=== PATIENT | female | born 1950 | race African-American/Black ===

== ENCOUNTER 2016-07-28 07:00 | Day surgery (SDC) | payer MEDICARE, BC ==
[2016-07-26 11:52] VITALS: BMI 38.0
[~2016-07-28 07:00] MED LIST: LACTATED RINGERS 1,000 ML IV SCH
[2016-07-28 07:28] VITALS: RESP 16; TEMP 98
[2016-07-28] MEDS ORDERED: SODIUM CHLORIDE 0.9% 500 ML IV ONE (07:30)
[2016-07-28] MEDS ORDERED: PROPOFOL 10 MG/ML 20 ML VIAL IV ONE (07:43)
[2016-07-28 07:58] LABS: Glucose,Whole Blood 53 mg/dL (75-99)
--- NOTE | 2016-07-28 08:02 | P.PCN ---
Date of Procedure: 07/28/16 Procedure(s) Performed: BRIEF HISTORY: Patient is a 65-year-old pleasant female, scheduled for an elective colonoscopy as a part of evaluation of prior history of colon polyps. Last colonoscopy was in 2010. PROCEDURE PERFORMED: Colonoscopy. PREOPERATIVE DIAGNOSIS: History of colon polyps. IV sedation per Anesthesia. PROCEDURE: After informed consent was obtained, the patient, was brought into the endoscopy unit. IV conscious sedation was administered by Anesthesia under continuous monitoring. Digital rectal examination was normal. Initially the Olympus CF-160 flexible video colonoscope was then inserted in the rectum, gradually advanced into the cecum without any difficulty. Careful examination was performed as the scope was gradually being withdrawn. Ileocecal valve and the appendiceal orifice were visualized and appeared normal. Prep was excellent. Mucosa of the cecum, ascending colon, transverse colon, descending colon, sigmoid colon, and rectum appeared normal. Scattered sigmoid diverticulosis seen. Retroflexion was performed in the rectum and no lesions were seen. The patient tolerated the procedure well. IMPRESSION: Normal-appearing colon from rectum to cecum with no evidence of colorectal neoplasia . Scattered sigmoid diverticulosis. RECOMMENDATIONS: Findings of this examination were discussed with the patient as well as her family. She was advised to have a repeat screening colonoscopy in 5 years because of the prior history of colon polyps.
[2016-07-28 08:05] VITALS: BP 123/57; PULSE 69
[2016-07-28 08:11] LABS: Glucose,Whole Blood 91 mg/dL (75-99)
== END 2016-07-28 09:22 | disposition home or self-care (01) ==
LOC: ORWHC2ENDO 07:00
PROVIDERS: ATTEND Internal Medicine Gastroenterology
DX: Z12.11 Encounter for screening for malignant neoplasm of colon (principal); K57.30 Diverticulosis of large intestine without perforation or abscess without bleeding; E11.9 Type 2 diabetes mellitus without complications; I10 Essential (primary) hypertension; Z86.010 Personal history of colon polyps; Z88.5 Allergy status to narcotic agent; Z88.8 Allergy status to other drugs, medicaments and biological substances; Z79.82 Long term (current) use of aspirin; Z79.84 Long term (current) use of oral hypoglycemic drugs; Z79.4 Long term (current) use of insulin; Z79.899 Other long term (current) drug therapy; Z94.0 Kidney transplant status
CPT/HCPCS: J2704; G0105; 45378; 99153

== ENCOUNTER 2016-08-11 17:08 | Inpatient (IN) | payer MEDICARE, BC ==
[2016-08-11] MEDS ORDERED: IPRATROPIUM-ALBUTEROL 3 ML NEB INHALATION STA (17:56)
[2016-08-11] MEDS ORDERED: PIPERACILLIN-TAZOBACTAM 3.375 GM in DEXTROSE/WATER 1 50ML.BAG IVPB STA (18:17)
--- NOTE | 2016-08-11 18:17 | ED ---
General Adult HPI - General Chief complaint: Recheck/Abnormal Lab/Rx Stated complaint: Abnormal EKG Time Seen by Provider: 08/11/16 17:20 Source: patient, RN notes reviewed Mode of arrival: ambulatory Limitations: no limitations - History of Present Illness Initial comments: This is a 65-year-old female who comes From her primary medical care doctor's office. Patient went to the office today because she's been coughing a lot lately. Patient states she's been coughing up sputum occasionally and she is mildly short of breath per patient states she does have a history of asthma. Patient denies any chest pain or palpitations. Patient denies any fever or chills. Patient states she has been a little bit nauseated lately but has no abdominal pain. Patient states anytime she eats she becomes nauseated. Patient states she went to the physician's office today they did an EKG and thought it was abnormal so they sent her into the emergency department. Patient denies headache patient denies numbness weakness. Patient denies any lightheadedness dizziness or near syncopal episode. - Related Data Home Medications Medication Instructions Recorded Confirmed INSULIN LISPRO (HumaLOG) [humaLOG] 12 units SQ AC-LUNCH 01/02/16 08/11/16 INSULIN LISPRO (HumaLOG) [humaLOG] 12 units SQ AC-SUPPER 01/02/16 08/11/16 Insulin Glargine,Hum.rec.anlog 22 unit SQ 01/02/16 08/11/16 [Lantus Solostar] Tacrolimus [Prograf] 3 mg PO QAM 07/26/16 08/11/16 Tacrolimus [Prograf] 4 mg PO HS 07/26/16 08/11/16 Acetaminophen-Codeine 300-30mg 1 tab PO Q6H PRN 08/11/16 08/11/16 [Tylenol #3] Albuterol Inhaler [Ventolin Hfa 2 puff INHALATION RT-QID PRN 08/11/16 08/11/16 Inhaler] Albuterol Nebulized [Ventolin 2.5 mg INHALATION RT-QID PRN 08/11/16 08/11/16 Nebulized] Allopurinol [Zyloprim] 100 mg PO DAILY 08/11/16 08/11/16 Ammonium Lactate Cream [Lac-Hydrin 1 applic TOPICAL BID 08/11/16 08/11/16 12% Cream] Aspirin 81 mg PO DAILY 08/11/16 08/11/16 Atorvastatin Calcium [Lipitor] 10 mg PO HS 08/11/16 08/11/16 Carvedilol [Coreg] 12.5 mg PO BID 08/11/16 08/11/16 INSULIN LISPRO (humaLOG) [HumaLOG] 9 units SQ AC-BRKFST 08/11/16 08/11/16 Lansoprazole [Prevacid] 30 mg PO BID 08/11/16 08/11/[address] [Myfortic] 360 mg PO BID 08/11/16 08/11/16 Sodium Bicarbonate Tab 1,950 mg PO QID 08/11/16 08/11/16 Spironolactone [Aldactone] 25 mg PO DAILY 08/11/16 08/11/16 amLODIPine [Norvasc] 10 mg PO DAILY 08/11/16 08/11/16 predniSONE 1 mg PO DAILY 08/11/16 08/11/16 Allergies Allergy/AdvReac Type Severity Reaction Status Date / Time hydralazine [From Apresoline] Allergy Rash/Hives Verified 08/11/16 18:20 meperidine [From Demerol] Allergy Anaphylaxis Verified 08/11/16 18:20 Review of Systems ROS Statement: Those systems with pertinent positive or pertinent negative responses have been documented in the HPI. ROS Other: All systems not noted in ROS Statement are negative. Past Medical History Past Medical History: Asthma, Diabetes Mellitus, Dialysis, Eye Disorder, Hyperlipidemia, Hypertension, Renal Disease, Skin Disorder Additional Past Medical History / Comment(s): daily steroid,split in skin lt heel History of Any Multi-Drug Resistant Organisms: ESBL Date of last positivie culture/infection: 2011 MDRO Source:: peritoneal dialysis cath Additional Past Surgical History / Comment(s): Renal transplant Jul 2015, hemodialysis shunt lt forearm,peritoneal dialysis insertion and removal Past Anesthesia/Blood Transfusion Reactions: No Reported Reaction Additional Past Anesthesia/Blood Transfusion Reaction / Comment(s): has had a hard time coming out of anesthesia Past Psychological History: No Psychological Hx Reported Smoking Status: Former smoker Past Alcohol Use History: None Reported Additional Past Alcohol Use History / Comment(s): quit smoking , smoked approx 4-5 yrs Past Drug Use History: None Reported - Past Family History Mother History Unknown: Yes Father Additional Family Medical History / Comment(s): brain aneurysm General Exam - General Exam Comments Initial Comments: GENERAL: Patient is well-developed and well-nourished. Patient is nontoxic and well- hydrated and is in mild distress. ENT: Neck is soft and supple. No significant lymphadenopathy is noted. Oropharynx is clear. Moist mucous membranes. Neck has full range of motion without eliciting any pain. EYES: The sclera were anicteric and conjunctiva were pink and moist. Extraocular movements were intact and pupils were equal round and reactive to light. Eyelids were unremarkable. PULMONARY: Unlabored respirations. Good breath sounds bilaterally. Slight expiratory wheeze CARDIOVASCULAR: There is a regular rate and rhythm without any murmurs gallops or rubs. ABDOMEN: Soft and nontender with normal bowel sounds. No palpable organomegaly was noted. There is no palpable pulsatile mass. SKIN: Skin is clear with no lesions or rashes and otherwise unremarkable. NEUROLOGIC: Patient is alert and oriented x3. Cranial nerves II through XII are grossly intact. Motor and sensory are also intact. Normal speech, volume and content. Symmetrical smile. MUSCULOSKELETAL: Normal extremities with adequate strength and full range of motion. No lower extremity swelling or edema. No calf tenderness. LYMPHATICS: No significant lymphadenopathy is noted PSYCHIATRIC: Normal psychiatric evaluation. Limitations: no limitations Course Vital Signs 08/11/16 08/11/16 08/11/16 17:17 18:30 18:37 Temperature 98.0 F Pulse Rate 80 81 79 Respiratory 16 Rate Blood Pressure 185/81 O2 Sat by Pulse 100 Oximetry 08/11/16 19:46 Temperature Pulse Rate 80 Respiratory 18 Rate Blood Pressure 174/80 O2 Sat by Pulse 100 Oximetry Medical Decision Making - Medical Decision Making EKG shows normal sinus rhythm at 86 bpm PA interval 176 QRS is 92 QT interval 378 QTC is 452. Patient's EKG shows some Q waves in leads 3 and aVF which I seen an old EKG. Patient's EKG also shows some Q waves in V1 and V2 with some ST segment elevation. The concavity of the of the ST segment elevation. The J- point elevation Patient's chest x-ray is normal. But she continues to cough so started the patient on oral Levaquin. Patient's blood sugar was nearly 600 so started patient on the insulin drip. Admit the patient to Dr. Cabrera - Lab Data Result diagrams: 08/11/16 07:19 08/11/16 07:19 Lab Results 08/11/16 08/11/16 08/11/16 Range/Units 07:19 07:19 07:19 WBC 10.8 H (3.8-10.6) k/uL RBC 4.74 (3.80-5.40) m/uL Hgb 13.3 (11.4-16.0) gm/dL Hct 43.7 (34.0-46.0) % MCV 92.2 (80.0-100.0) fL MCH 28.0 (25.0-35.0) pg MCHC 30.4 L (31.0-37.0) g/dL RDW 13.0 (11.5-15.5) % Plt Count 221 (150-450) k/uL Neutrophils % MANAGER [employer] Neutrophils % (Manual) 90.0 % Lymphocytes % MANAGER [employer] Lymphocytes % (Manual) 8.0 % Monocytes % MANAGER [employer] Monocytes % (Manual) 2.0 % Eosinophils % MANAGER [employer] Basophils % MANAGER [employer]IL[employer] Neutrophils # MANAGER [employer] Neutrophils # (Manual) 9.7 H (1.3-7.7) k/uL Lymphocytes # MANAGER [employer] Lymphocytes # (Manual) 0.9 L (1.0-4.8) k/uL Monocytes # MANAGER [employer]IL[employer] Monocytes # (Manual) 0.2 (0-1.0) k/uL Eosinophils # MANAGER UTILIT[employer] Basophils # MANAGER [employer] Nucleated RBCs 0 (0-0) /100 WBC Manual Slide Review Performed Hypochromasia Moderate PT (9.0-12.0) sec INR (<1.1) APTT (22.0-30.0) sec Sodium 132 L (137-145) mmol/L Potassium 5.8 H (3.5-5.1) mmol/L Chloride 98 (98-107) mmol/L Carbon Dioxide 18 L (22-30) mmol/L Anion Gap 16 mmol/L BUN 38 H (7-17) mg/dL Creatinine 1.47 H (0.52-1.04) mg/dL Est GFR (MDRD) Af Amer 43 (>60 ml/min/1.73 sqM) Est GFR (MDRD) Non-Af 36 (>60 ml/min/1.73 sqM) Glucose 572 H* (74-99) mg/dL POC Glucose (mg/dL) (75-99) mg/dL POC Glu Salon Leader ID Calcium 10.8 H (8.4-10.2) mg/dL Magnesium 1.6 (1.6-2.3) mg/dL Total Bilirubin 0.8 (0.2-1.3) mg/dL AST 20 (14-36) U/L ALT 30 (9-52) U/L Alkaline Phosphatase 146 H (38-126) U/L Total Creatine Kinase 126 (30-135) U/L CK-MB (CK-2) 0.9 (0.0-2.4) ng/mL CK-MB (CK-2) Rel Index 0.7 Troponin I <0.012 (0.000-0.034) ng/mL Total Protein 7.0 (6.3-8.2) g/dL Albumin 4.2 (3.5-5.0) g/dL Acetone, Qual (Negative) 08/11/16 08/11/16 08/11/16 Range/Units 19:19 20:25 20:47 WBC (3.8-10.6) k/uL RBC (3.80-5.40) m/uL Hgb (11.4-16.0) gm/dL Hct (34.0-46.0) % MCV (80.0-100.0) fL MCH (25.0-35.0) pg MCHC (31.0-37.0) g/dL RDW (11.5-15.5) % Plt Count (150-450) k/uL Neutrophils % Neutrophils % (Manual) % Lymphocytes % Lymphocytes % (Manual) % Monocytes % Monocytes % (Manual) % Eosinophils % Basophils % Neutrophils # Neutrophils # (Manual) (1.3-7.7) k/uL Lymphocytes # Lymphocytes # (Manual) (1.0-4.8) k/uL Monocytes # Monocytes # (Manual) (0-1.0) k/uL Eosinophils # Basophils # Nucleated RBCs (0-0) /100 WBC Manual Slide Review Hypochromasia PT 10.8 (9.0-12.0) sec INR 1.1 (<1.1) APTT 23.4 (22.0-30.0) sec Sodium (137-145) mmol/L Potassium (3.5-5.1) mmol/L Chloride (98-107) mmol/L Carbon Dioxide (22-30) mmol/L Anion Gap mmol/L BUN (7-17) mg/dL Creatinine (0.52-1.04) mg/dL Est GFR (MDRD) Af Amer (>60 ml/min/1.73 sqM) Est GFR (MDRD) Non-Af (>60 ml/min/1.73 sqM) Glucose (74-99) mg/dL POC Glucose (mg/dL) 455 H (75-99) mg/dL POC Glu Salon Leader ID Skylar Hayward Calcium (8.4-10.2) mg/dL Magnesium (1.6-2.3) mg/dL Total Bilirubin (0.2-1.3) mg/dL AST (14-36) U/L ALT (9-52) U/L Alkaline Phosphatase (38-126) U/L Total Creatine Kinase (30-135) U/L CK-MB (CK-2) (0.0-2.4) ng/mL CK-MB (CK-2) Rel Index Troponin I (0.000-0.034) ng/mL Total Protein (6.3-8.2) g/dL Albumin (3.5-5.0) g/dL Acetone, Qual Negative (Negative) Disposition Clinical Impression: Acute bronchitis, Hyperglycemia Disposition: ADMITTED IP TO THIS HOSP Referrals: Raza Purcell MD [Primary Care Provider] - 1-2 days Time of Disposition: 21:07
[2016-08-11 19:40] LABS: CH 28.2; CHCM 30.8; HCT 43.7 % (34.0-46.0); HDW 2.47; HGB 13.3 gm/dL (11.4-16.0); Hypochromasia Moderate; MCHC 30.4 g/dL (31.0-37.0); MCV 92.2 fL (80.0-100.0); Mean Platelet Volume 9.7; RBC 4.74 m/uL (3.80-5.40); WBC 10.8 k/uL (3.8-10.6); WBC (Perox) 11.09
[2016-08-11 19:43] LABS: Creatine Kinase 126 U/L (30-135)
[2016-08-11 19:45] LABS: Calcium 10.8 mg/dL (8.4-10.2); Magnesium 1.6 mg/dL (1.6-2.3); Potassium 5.8 mmol/L (3.5-5.1); Total Bilirubin 0.8 mg/dL (0.2-1.3)
[2016-08-11 19:55] LABS: Creatine Kinase MB 0.9 ng/mL (0.0-2.4); Troponin I <0.012 ng/mL (0.000-0.034)
--- NOTE | 2016-08-11 20:18 | XR ---
EXAMINATION TYPE: XR chest 2V DATE OF EXAM: 08/11/2016 8:05 PM COMPARISON: 10/17/2014 HISTORY: Difficulty breathing TECHNIQUE: Frontal and lateral views of the chest are obtained. FINDINGS: There is no heart failure nor confluent pneumonic infiltrate. There are no hilar masses. C ostophrenic angles are clear. There is a small linear density in the lingula consistent with focal at electasis. There is no pleural effusion. There are chest leads. Bony thorax appears intact. IMPRESSION: Mild scarring or atelectasis in the lingula of the left upper lobe without change compar ed to old exam. Normal heart.
[2016-08-11 20:20] LABS: Add Differential Manual Differential
[2016-08-11 20:23] LABS: Nucleated Red Blood Cells 0 /100 WBC (0-0); Total Cells Counted 100
[2016-08-11 20:24] LABS: Manual Review Performed
[2016-08-11] MEDS ORDERED: INSULIN REGULAR 100 UNIT/ML VIAL IV ONE (20:39)
[2016-08-11] MEDS ORDERED: INSULIN REGULAR 100 UNIT in SODIUM CHLORIDE 0.9% 100 ML IV ONE (20:39)
[2016-08-11 20:49] LABS: INR 1.1 (<1.1); Partial Thromboplastin Time 23.4 sec (22.0-30.0); Prothrombin Time 10.8 sec (9.0-12.0)
[2016-08-11 20:49] LABS: Glucose,Whole Blood 455 mg/dL (75-99)
[2016-08-11] MEDS ORDERED: LEVOFLOXACIN 750 MG TAB PO STA (21:24)
[2016-08-11] MEDS ORDERED: SODIUM CHLORIDE 0.9% 1,000 ML IV SCH (21:45)
[2016-08-11] MEDS: INSULIN REGULAR 100 UNIT in SODIUM CHLORIDE 0.9% 100 ML IV SCH (22:30)
[2016-08-11 23:01] VITALS: PULSE 86
[2016-08-11 23:01] LABS: Glucose,Whole Blood 376 mg/dL (75-99)
[2016-08-11] MEDS ORDERED: Acetaminophen-Codeine 300-30mg TAB PO PRN (23:23)
[2016-08-11] MEDS ORDERED: ONDANSETRON 4 MG TAB PO PRN (23:29)
[2016-08-11 23:30] LABS: Glucose,Whole Blood 257 mg/dL (75-99)
[2016-08-11 23:38] VITALS: BMI 35.2
[2016-08-11 23:53] LABS: Phosphorous 3.4 mg/dL (2.5-4.5)
[2016-08-12 00:05] LABS: Glucose,Whole Blood 171 mg/dL (75-99)
[2016-08-12] MEDS: CARVEDILOL 12.5 MG TAB PO SCH ×2 (00:08→08:23)
[2016-08-12] MEDS: PANTOPRAZOLE 40 MG TABLET PO SCH ×2 (00:08→08:23)
[2016-08-12] MEDS: MYCOPHENOLATE SODIUM DR 180 MG TABLET.DR PO SCH ×2 (00:08→08:24)
[2016-08-12 01:45] LABS: Glucose,Whole Blood 62 mg/dL (75-99)
[2016-08-12] MEDS ORDERED: DEXTROSE 5% IN WATER 1,000 ML IV ONE (01:56)
[2016-08-12 02:06] LABS: Glucose,Whole Blood 73 mg/dL (75-99)
[2016-08-12] MEDS ORDERED: ONDANSETRON 4 MG/2 ML VIAL ONE (02:55)
[2016-08-12 03:25] LABS: Glucose,Whole Blood 144 mg/dL (75-99)
[2016-08-12 04:11] LABS: Phosphorous 3.6 mg/dL (2.5-4.5); Potassium 4.5 mmol/L (3.5-5.1)
[2016-08-12 05:30] LABS: Glucose,Whole Blood 218 mg/dL (75-99)
[2016-08-12 07:10] LABS: Glucose,Whole Blood 131 mg/dL (75-99)
[2016-08-12 07:49] VITALS: BP 135/63; RESP 16; TEMP 98.1
[2016-08-12 07:58] LABS: Hemoglobin A1C 7.8 % (4.2-6.1)
[2016-08-12 08:24] LABS: Glucose,Whole Blood 237 mg/dL (75-99)
[2016-08-12] MEDS ORDERED: AMMONIUM LACTATE 12% CREAM 140 GM TUBE TOPICAL SCH (09:00)
[2016-08-12] MEDS ORDERED: ALLOPURINOL 100 MG TAB PO SCH (09:00)
[2016-08-12] MEDS ORDERED: TACROLIMUS 1 MG CAP PO SCH ×2 (09:00)
[2016-08-12] MEDS ORDERED: amLODIPine 10 MG TAB PO SCH (09:00)
[2016-08-12] MEDS ORDERED: predniSONE 1 MG TAB PO SCH (09:00)
[2016-08-12 10:23] LABS: Glucose,Whole Blood 85 mg/dL (75-99)
[2016-08-12] MEDS: INSULIN REGULAR 100 UNIT in SODIUM CHLORIDE 0.9% 100 ML IV SCH (10:33)
--- NOTE | 2016-08-12 11:56 | HP ---
HISTORY AND PHYSICAL/DISCHARGE SUMMARY A 65-year-old female came in with cough, with a greenish sputum production. Patient does have bronchitis. Patient does not have any pneumonic process in the chest x-ray. Reviewed the chest x-ray. Patient appears to have some atelectasis and patient denied any fever, chills. Patient denied any nausea or vomiting. Patient does not have any fevers here either. Patient denied any dysuria. Patient was started on treatment with Zosyn and levofloxacin. I do not believe it is necessary at this point of time. Levofloxacin will be discontinued. Patient will be discharged on ( ). Patient's blood sugars are high without any diabetic ketoacidosis. There is a bit of anion gap because of little bit of uremia. Patient has a kidney renal transplant. Patient's creatinine is around at her baseline. Because of the anion gap, I will obtain a lactic acid and once we get the lactic acid results, patient will be discharged. Her hemoglobin A1c is elevated. I cannot titrate her outpatient insulin because patient remained on IV insulin, because of highly elevated blood sugars of 500 which has come down now. Since hemoglobin A1c is elevated, I will empirically increase the Lantus to 30 units and let her follow with primary care physician, Dr. Raza Purcell and further management can be done as an outpatient. Patient will be discharged today. Patient denied any fever, chills and patient wanted to be discharged. Patient denied any nausea, vomiting. Patient denied any diarrhea. REVIEW OF SYSTEMS: CONSTITUTIONAL: No fever, no malaise, no fatigue. HEENT: No recent visual problems or hearing problems. Denied any sore throat. CARDIOVASCULAR: No chest pain, orthopnea, PND, no palpitations, no syncope. PULMONARY: As described in HPI. Patient denied any orthopnea, PND. GASTROINTESTINAL: No diarrhea, no nausea, no vomiting, no abdominal pain. Normoactive bowel sounds. NEUROLOGICAL: No headaches, no weakness, no numbness. HEMATOLOGICAL: Denies any bleeding or petechiae. GENITOURINARY: Denies any burning micturition, frequency, or urgency. MUSCULOSKELETAL/RHEUMATOLOGICAL: Denies any joint pain, swelling, or any muscle pain. ENDOCRINE: Denies any polyuria or polydipsia. The rest of the 14 point review of systems is negative. Home medications include: 1. Insulin. 2. Lispro. 3. Tacrolimus. 4. Acetaminophen. 5. Hydrocodone. 6. Albuterol. 7. Allopurinol. 8. Ammonium lactate. 9. Aspirin. 10. Atorvastatin. 11. Coreg. 12. Lansoprazole. 13. Mycophenolate. 14. Sodium bicarbonate. 15. Spironolactone. Spironolactone will be discontinued. Patient is hyperkalemic and patient is not a candidate for spironolactone, not sure why patient is on spironolactone. 16. Amlodipine. 17. Prednisone. ALLERGIES: Allergic to HYDRALAZINE and MEPERIDINE. PAST MEDICAL HISTORY: Significant for asthma, diabetes mellitus. Patient had endstage renal disease and is post renal transplant, hyperlipidemia, hypertension. Patient had a peritoneal dialysis catheter in the past, now does not have anything. Patient is a former smoker. Quit smoking in . Denied any alcohol abuse or any drug abuse. FAMILY HISTORY: Father had brain aneurysm, mother was apparently healthy. PHYSICAL EXAMINATION: Temperature 98.1, pulse of 76, respiratory rate of 16, blood pressure 135/63, saturating at 99% on room air. GENERAL: The patient is alert and oriented x3, not in any acute distress. Well developed, well nourished. HEENT: Pupils are round and equally reacting to light. EOMI. No scleral icterus. No conjunctival pallor. Normocephalic, atraumatic. No pharyngeal erythema. No thyromegaly. CARDIOVASCULAR: S1 and S2 present. No murmurs, rubs, or gallops. PULMONARY: Chest is clear to auscultation, no wheezing or crackles. ABDOMEN: Soft, nontender, nondistended, normoactive bowel sounds. No palpable organomegaly. MUSCULOSKELETAL: No joint swelling or deformity. EXTREMITIES: No cyanosis, clubbing, or pedal edema. NEUROLOGICAL: Gross neurological examination did not reveal any focal deficits. SKIN: No rashes. LABORATORY DATA: CBC, CMP are abnormal for elevated potassium, which improved now, sodium of 136, potassium elevation is secondary for two reasons: 1. Spironolactone. 2. Hyperglycemia. Patient hyperglycemia improved with IV insulin. Hemoglobin A1c is 7.8. The rest of the lab data is essentially within normal limits. ASSESSMENT AND PLAN: 1. Tracheobronchitis. 2. Hyperglycemia with highly-elevated blood sugars of around of 600, secondary to noncompliance with medication. Patient has not been eating well because of her sickness of nausea, vomiting and upper respiratory infection and has not been taking insulin regularly because of that reason and considering her elevated hemoglobin A1c increasing the Lantus as mentioned above. Further management can be done as an outpatient. 3. Mild leukocytosis reactive. 4. Pseudohyponatremia improved with correction of blood sugars. 5. Hyperkalemia due to above-mentioned reasons. 6. Post renal transplant. 7. Asthma not in acute exacerbation. For tracheobronchitis, I will discharge her on doxycycline for 5 more days. 8. Hyperlipidemia. 9. Hypertension. Patient will be discharged today, follow with Dr. Raza Purcell on August 18 at 12:30 p.m. Activity as tolerated. Cardiac and diabetic 1800 calorie diet. For the rest of the discharge medications, please refer to my medication reconciliation. This dictation is both H&P and discharge summary.
[2016-08-12] MEDS ORDERED: LEVOFLOXACIN 750 MG TAB PO SCH ×2 (21:00)
[2016-08-12] MEDS ORDERED: ATORVASTATIN 10 MG TAB PO SCH (21:00)
== END 2016-08-12 14:25 | disposition home or self-care (01) | DRG 202 ==
LOC: EC 17:08 → 5MS5E 21:33
PROVIDERS: ADMIT Hospitalist; ATTEND Hospitalist
DX: J20.9 Acute bronchitis, unspecified (principal); J98.11 Atelectasis; E11.65 Type 2 diabetes mellitus with hyperglycemia; I10 Essential (primary) hypertension; E78.5 Hyperlipidemia, unspecified; E87.5 Hyperkalemia; J45.909 Unspecified asthma, uncomplicated; R94.31 Abnormal electrocardiogram [ECG] [EKG]; T50.0X5A Adverse effect of mineralocorticoids and their antagonists, initial encounter; Z94.0 Kidney transplant status; Z79.4 Long term (current) use of insulin; Z79.82 Long term (current) use of aspirin; Z79.899 Other long term (current) drug therapy; Z79.52 Long term (current) use of systemic steroids; Z88.8 Allergy status to other drugs, medicaments and biological substances; Z87.891 Personal history of nicotine dependence; Z91.14 Patient's other noncompliance with medication regimen; Y92.009 Unspecified place in unspecified non-institutional (private) residence as the place of occurrence of the external cause
CPT/HCPCS: 36415; 71020; 80051; 80053; 82009; 82310; 82550; 82553; 82565; 82947; 83036; 83605; 83735; 84100; 84484; 84520; 85025; 85610; 85730; 87040; 93005; 94640; 96365; 99285

== ENCOUNTER → 2016-08-16 | Outpatient (CLI) | payer MEDICARE, BC ==
--- NOTE | 2016-08-17 08:49 | ECHOF ---
Referral Reason:I50.9 heart failure MEASUREMENTS -------- HEIGHT: 158.8 cm WEIGHT: 89.8 kg BP: 146/76 RVIDd: 3.4 cm (< 3.3) IVSd: 1.5 cm (0.6 - 1.1) LVIDd: 3.6 cm (3.9 - 5.3) LVPWd: 1.3 cm (0.6 - 1.1) IVSs: 1.9 cm LVIDs: 2.4 cm LVPWs: 1.3 cm LA Diam: 3.7 cm (2.7 - 3.8) LAESV Index (A-L): 19.97 ml/m Ao Diam: 3.5 cm (2.0 - 3.7) AV Cusp: 2.4 cm (1.5 - 2.6) MV EXCURSION: 15.857 mm (> 18.000) MV EF SLOPE: 75 mm/s (70 - 150) EPSS: 0.6 cm MV E Baltazar: 0.64 m/s MV DecT: 236 ms MV A Baltazar: 1.08 m/s MV E/A Ratio: 0.59 FINDINGS -------- Sinus rhythm. This was a technically good study. The left ventricular size is normal. There is moderate concentric left ventricular hypertrophy. Overall left ventricular systolic function is normal with, an EF between 55 - 60 %. The right ventricle is mildly enlarged. Normal LA size by volume 22+/-6 ml/m2. The right atrium is normal in size. Interatrial septal aneurysm. Aortic valve is trileaflet and is mildly thickened. Trace amount of aortic regurgitation. Moderate mitral annular calcification present. The tricuspid valve appears structurally normal. No regurgitation noted The pulmonic valve was not well visualized. The aortic root size is normal. IVC Not well visulized. There is no pericardial effusion. CONCLUSIONS -------- 1. Sinus rhythm. 2. Aortic valve is trileaflet and is mildly thickened. 3. Trace amount of aortic regurgitation. 4. Moderate mitral annular calcification present. 5. The tricuspid valve appears structurally normal. 6. The pulmonic valve was not well visualized. 7. The aortic root size is normal. 8. IVC Not well visulized. 9. There is no pericardial effusion. 10. This was a technically good study. 11. The left ventricular size is normal. 12. There is moderate concentric left ventricular hypertrophy. 13. Overall left ventricular systolic function is normal with, an EF between 55 - 60 %. 14. The right ventricle is mildly enlarged. 15. Normal LA size by volume 22+/-6 ml/m2. 16. The right atrium is normal in size. 17. Interatrial septal aneurysm. CORPORATE SALES REPRESENTATIVE: Sara Delgado RDCS
== END | disposition home or self-care (01) ==
LOC: RADECHMAIN 13:03
PROVIDERS: ATTEND Family Medicine
DX: I50.9 Heart failure, unspecified (principal)
CPT/HCPCS: 93306

== ENCOUNTER → 2016-08-23 | Outpatient (CLI) | payer MEDICARE, BC ==
--- NOTE | 2016-08-23 10:43 | US ---
EXAMINATION TYPE: US abdomen complete DATE OF EXAM: 08/23/2016 9:00 AM COMPARISON: Complete abdominal ultrasound August 06, 2013. CT abdomen pelvis August 23, 2009. CLINICAL HISTORY: N18.6 End stage renal disease. Renal transplant in right pelvis 2016; on meds for d iabetes and HTN; gallbladder removed; nausea; renal atrophy EXAM MEASUREMENTS: Liver Length: 15.6 cm Gallbladder Wall: surgically absent CBD: 0.9 cm Spleen: 8.9 cm [place] Right Kidney: 5.9 x 4.4 x 3.1cm [place] Left Kidney: 4.7 x 2.6 x 3.1cm Renal Transplant Size = 9.6 x 6.9 x 5.8cm TECHNOLOGIST IMPRESSION: Pancreas: abnormally dilated pancreatic duct = 5.5mm Liver: wnl Gallbladder: surgically removed CBD: dilated but tapers at pancreas and can be normal up to 1.0cm post cholecystectomy Spleen: wnl Right Kidney: atrophic Left Kidney: atrophic Upper IVC: wnl Abd Aorta: wnl Renal Transplant at right pelvis: patent renal artery and vein throughout and color flow is noted to renal periphery. Pancreatic duct is now abnormally dilated at 6 mm on current study more prominent than prior exams. N o suspicious intrahepatic or extrahepatic biliary dilatation is noted. [place] renal kidneys are atrop hic in size with loss of normal cortical medullary differentiation. Right pelvic transplant is within normal limits in size. No hydronephrosis is seen. Cortical medullary differentiation is maintained. . IMPRESSION: New pancreatic ductal dilatation, obstructing pancreatic head mass needs to BE excluded. Further investigation with pancreas protocol contrast-enhanced CT or MRI is advised.
== END ==
LOC: RADUSWWP 08:22
PROVIDERS: ATTEND Family Medicine
DX: K86.89 Other specified diseases of pancreas (principal); N18.6 End stage renal disease
CPT/HCPCS: 76700

== ENCOUNTER → 2016-09-02 | Outpatient (CLI) | payer MEDICARE, BC ==
--- NOTE | 2016-09-02 13:50 | CT ---
EXAMINATION TYPE: CT abdomen wo con DATE OF EXAM: 09/02/2016 1:32 PM COMPARISON: NONE HISTORY: Mass of pancreas CT DLP: 681.[address] of the abdomen and pelvis was performed. Lack of contrast limits evaluation. FINDINGS: LUNG BASES: No evidence for nodule. No evidence for infiltrate. LIVER/GB: Cholecystectomy changes with the postoperative intra and extrahepatic biliary ductal promin ence. No space-occupying hepatic lesion. PANCREAS: No obvious pancreatic lesion identified however unenhanced study is limiting. No evidence f or inflammatory process. SPLEEN: No evidence for splenomegaly. No intrasplenic lesions seen. ADRENALS: No adrenal nodules identified. No evidence for thickening. KIDNEYS: Atrophic changes of the kidneys. Partially imaged right iliac fossa renal transplant. No kia dence for renal mass. No nephrolithiasis. No hydronephrosis. BOWEL: Appendix has a normal appearance. No evidence of bowel obstruction. No inflammatory process. Lymph nodes: No evidence for adenopathy greater than 1 cm. Abdominal aorta: Atheromatous changes seen. No evidence for aneurysm. Genital organs: No significant abnormality. Other: Severe degenerative changes of the visualized portions of the spine. IMPRESSION: 1.No obvious pancreatic lesion identified however unenhanced study is limiting. 2. Atrophic kidneys.
== END | disposition home or self-care (01) ==
LOC: RADCTMAIN 12:49
PROVIDERS: ATTEND Family Medicine
DX: N26.1 Atrophy of kidney (terminal) (principal)
CPT/HCPCS: 74150

== ENCOUNTER → 2017-04-19 | Outpatient (CLI) | payer MEDICARE, BC ==
[~2017-04-19] MED LIST changes: +DENOSUMAB 60 MG/ML 1 ML SYRINGE SQ ONE; -LACTATED RINGERS 1,000 ML IV SCH
[2017-04-19 08:56] VITALS: BP 171/80; PULSE 74; RESP 16; TEMP 97.9
== END | disposition home or self-care (01) ==
LOC: PROCWHC3 08:37
PROVIDERS: ATTEND Family Medicine
DX: M81.0 Age-related osteoporosis without current pathological fracture (principal)
CPT/HCPCS: 96372; J0897

== ENCOUNTER 2017-08-25 17:39 | Inpatient (IN) | payer MEDICARE, BC ==
[2017-08-25] MEDS ORDERED: ASPIRIN 81 MG PO STA (17:56)
[2017-08-25] MEDS ORDERED: NITROGLYCERIN SL TABS 0.4 MG TAB SUBLINGUAL STA ×3 (17:56)
--- NOTE | 2017-08-25 17:59 | ED ---
General Adult HPI - General Chief complaint: Chest Pain Stated complaint: chest pain Time Seen by Provider: 08/25/17 17:48 Source: patient, RN notes reviewed Mode of arrival: ambulatory Limitations: no limitations - History of Present Illness Initial comments: Patient is a pleasant 66-year-old female presenting to the emergency Department with chest discomfort. Onset of symptoms was 2 days ago. Symptoms have progressively worsened since that time. Patient denies any dyspnea however states it does hurt to take a deep breath. Patient states discomfort feels mostly sharp. There is radiation towards the back. Discomfort is mostly sternal however somewhat in the epigastrium as well. No history of similar symptoms previously. Patient does have mild associated nausea. No diaphoresis. Patient does have a history of renal transplant and was told not to have contrast with IV dye. - Related Data Home Medications Medication Instructions Recorded Confirmed INSULIN LISPRO (HumaLOG) [humaLOG] 12 units SQ AC-LUNCH 01/02/16 08/25/17 INSULIN LISPRO (HumaLOG) [humaLOG] 12 units SQ AC-SUPPER 01/02/16 08/25/17 Tacrolimus [Prograf] 3 mg PO QAM 07/26/16 08/25/17 Tacrolimus [Prograf] 4 mg PO HS 07/26/16 08/25/17 Acetaminophen-Codeine 300-30mg 1 tab PO Q6H PRN 08/11/16 08/25/17 [Tylenol w/codeine #3] Albuterol Inhaler [Ventolin Hfa 2 puff INHALATION RT-QID PRN 08/11/16 08/25/17 Inhaler] Albuterol Nebulized [Ventolin 2.5 mg INHALATION RT-QID PRN 08/11/16 08/25/17 Nebulized] Aspirin 81 mg PO DAILY 08/11/16 08/25/17 Atorvastatin Calcium [Lipitor] 10 mg PO HS 08/11/16 08/25/17 Carvedilol [Coreg*] 12.5 mg PO BID 08/11/16 08/25/17 INSULIN LISPRO (humaLOG) [humaLOG] 9 units SQ AC-BRKFST 08/11/16 08/25/[address] [Myfortic] 360 mg PO BID 08/11/16 08/25/17 Sodium Bicarbonate Tab 1,300 mg PO TID 08/11/16 08/25/17 amLODIPine [Norvasc] 10 mg PO DAILY 08/11/16 08/25/17 Docusate [Colace] 100 mg PO BID PRN 08/25/17 08/25/17 Ergocalciferol (Vitamin D2) 50,000 unit PO Q30D 08/25/17 08/25/17 [Vitamin D2] Ferrous Sulfate [Feosol] 325 mg PO DAILY 08/25/17 08/25/17 Insulin Glargine,Hum.rec.anlog 25 unit SQ HS 08/25/17 08/25/17 [Lantus Solostar] Losartan Potassium [Cozaar] 25 mg PO DAILY 08/25/17 08/25/17 traMADol HCL [Ultram] 50 mg PO Q6HR PRN 08/25/17 08/25/17 Allergies Allergy/AdvReac Type Severity Reaction Status Date / Time hydralazine [From Apresoline] Allergy Rash/Hives Verified 08/25/17 18:40 meperidine [From Demerol] Allergy Anaphylaxis Verified 08/25/17 18:40 Review of Systems ROS Statement: Those systems with pertinent positive or pertinent negative responses have been documented in the HPI. ROS Other: All systems not noted in ROS Statement are negative. Constitutional: Denies: fever Eyes: Denies: eye pain ENT: Denies: ear pain Respiratory: Denies: cough Cardiovascular: Reports: chest pain Endocrine: Denies: fatigue Gastrointestinal: Reports: abdominal pain, nausea. Denies: vomiting Genitourinary: Denies: dysuria Musculoskeletal: Reports: back pain Skin: Denies: rash Neurological: Denies: weakness Past Medical History Past Medical History: Asthma, Diabetes Mellitus, Dialysis, Eye Disorder, Hyperlipidemia, Hypertension, Renal Disease, Skin Disorder Additional Past Medical History / Comment(s): daily steroid,split in skin lt heel, keloids History of Any Multi-Drug Resistant Organisms: ESBL Date of last positivie culture/infection: 2011 MDRO Source:: peritoneal dialysis cath Additional Past Surgical History / Comment(s): Renal transplant Jul 2015, hemodialysis shunt lt forearm,peritoneal dialysis insertion and removal Past Anesthesia/Blood Transfusion Reactions: No Reported Reaction Additional Past Anesthesia/Blood Transfusion Reaction / Comment(s): has had a hard time coming out of anesthesia Past Psychological History: No Psychological Hx Reported Smoking Status: Former smoker Past Alcohol Use History: None Reported Past Drug Use History: None Reported - Past Family History Mother History Unknown: Yes Father Additional Family Medical History / Comment(s): brain aneurysm General Exam Limitations: no limitations General appearance: alert, other (Patient does have discomfort with positional changes) Head exam: Present: atraumatic Eye exam: Present: normal appearance, PERRL ENT exam: Present: normal oropharynx Neck exam: Present: normal inspection Respiratory exam: Present: normal lung sounds bilaterally. Absent: chest wall tenderness Cardiovascular Exam: Present: regular rate, normal rhythm Expanded Peripheral pulses: 2+: Radial (R), Radial (L), Dorsalis Pedis (R), Dorsalis Pedis (L) GI/Abdominal exam: Present: soft, tenderness (Minimal epigastric tenderness). Absent: distended Extremities exam: Present: normal inspection. Absent: pedal edema, calf tenderness Back exam: Present: tenderness (Patient does have mild tenderness in the parathoracic region approximately T4 through T8.) Neurological exam: Present: alert Psychiatric exam: Present: normal affect, normal mood Skin exam: Present: normal color Course Vital Signs 08/25/17 08/25/17 08/25/17 17:44 18:19 18:32 Temperature 98.8 F Pulse Rate 85 71 74 Respiratory 18 18 16 Rate Blood Pressure 211/96 123/75 123/75 O2 Sat by Pulse 100 100 100 Oximetry 08/25/17 08/25/17 18:40 20:07 Temperature Pulse Rate 94 86 Respiratory 16 16 Rate Blood Pressure 189/91 179/97 O2 Sat by Pulse 100 100 Oximetry EKG Findings - EKG Comments: EKG Findings:: Normal sinus rhythm 84. KS 166. QRS 98. QT 374. QTC 441. Left axis. Septal Q waves.. Q waves. Nonspecific ST-T. EMS EKG reviewed dated 08/11/2016. Medical Decision Making - Medical Decision Making Patient reevaluated and resting comfortably in bed. Patient significantly improved following morphine. Patient updated on results and plan. Patient is worried about staying with her at home however is explained limitations of tests in the emergency department and recommendation for further evaluation. Patient is now agreeable to stay. Case was discussed in detail with Dr. martinez, who will admit for Dr. Purcell. - Lab Data Result diagrams: 08/25/17 18:20 08/25/17 18:20 Lab Results 08/25/17 08/25/17 08/25/17 Range/Units 18:20 18:20 18:20 WBC 8.9 (3.8-10.6) k/uL RBC 4.91 (3.80-5.40) m/uL Hgb 13.6 (11.4-16.0) gm/dL Hct 42.4 (34.0-46.0) % MCV 86.4 (80.0-100.0) fL MCH 27.8 (25.0-35.0) pg MCHC 32.2 (31.0-37.0) g/dL RDW 13.8 (11.5-15.5) % Plt Count 176 (150-450) k/uL Neutrophils % 82 % Lymphocytes % 9 % Monocytes % 6 % Eosinophils % 2 % Basophils % 0 % Neutrophils # 7.4 (1.3-7.7) k/uL Lymphocytes # 0.8 L (1.0-4.8) k/uL Monocytes # 0.5 (0-1.0) k/uL Eosinophils # 0.1 (0-0.7) k/uL Basophils # 0.0 (0-0.2) k/uL PT (9.0-12.0) sec INR (<1.2) APTT (22.0-30.0) sec D-Dimer (<0.60) mg/L FEU Sodium 136 L (137-145) mmol/L Potassium 5.1 (3.5-5.1) mmol/L Chloride 100 (98-107) mmol/L Carbon Dioxide 27 (22-30) mmol/L Anion Gap 9 mmol/L BUN 22 H (7-17) mg/dL Creatinine 0.93 (0.52-1.04) mg/dL Est GFR (CKD-EPI)AfAm 75 (>60 ml/min/1.73 sqM) Est GFR (CKD-EPI)NonAf 65 (>60 ml/min/1.73 sqM) Glucose 271 H (74-99) mg/dL POC Glucose (mg/dL) (75-99) mg/dL POC Glu Engine Dynamometer Tester ID Calcium 11.1 H (8.4-10.2) mg/dL Magnesium 1.2 L (1.6-2.3) mg/dL Total Bilirubin 1.0 (0.2-1.3) mg/dL AST 14 (14-36) U/L ALT 26 (9-52) U/L Alkaline Phosphatase 64 (38-126) U/L Total Creatine Kinase 51 (30-135) U/L CK-MB (CK-2) 0.9 (0.0-2.4) ng/mL CK-MB (CK-2) Rel Index 1.8 Troponin I <0.012 (0.000-0.034) ng/mL Total Protein 6.5 (6.3-8.2) g/dL Albumin 4.0 (3.5-5.0) g/dL Amylase 37 (30-110) U/L Lipase 38 (23-300) U/L 08/25/17 08/25/17 Range/Units 18:20 18:24 WBC (3.8-10.6) k/uL RBC (3.80-5.40) m/uL Hgb (11.4-16.0) gm/dL Hct (34.0-46.0) % MCV (80.0-100.0) fL MCH (25.0-35.0) pg MCHC (31.0-37.0) g/dL RDW (11.5-15.5) % Plt Count (150-450) k/uL Neutrophils % % Lymphocytes % % Monocytes % % Eosinophils % % Basophils % % Neutrophils # (1.3-7.7) k/uL Lymphocytes # (1.0-4.8) k/uL Monocytes # (0-1.0) k/uL Eosinophils # (0-0.7) k/uL Basophils # (0-0.2) k/uL PT 9.8 (9.0-12.0) sec INR 1.0 (<1.2) APTT 22.5 (22.0-30.0) sec D-Dimer 0.40 (<0.60) mg/L FEU Sodium (137-145) mmol/L Potassium (3.5-5.1) mmol/L Chloride (98-107) mmol/L Carbon Dioxide (22-30) mmol/L Anion Gap mmol/L BUN (7-17) mg/dL Creatinine (0.52-1.04) mg/dL Est GFR (CKD-EPI)AfAm (>60 ml/min/1.73 sqM) Est GFR (CKD-EPI)NonAf (>60 ml/min/1.73 sqM) Glucose (74-99) mg/dL POC Glucose (mg/dL) 244 H (75-99) mg/dL POC Glu Engine Dynamometer Tester ID Cordelia Jackson Calcium (8.4-10.2) mg/dL Magnesium (1.6-2.3) mg/dL Total Bilirubin (0.2-1.3) mg/dL AST (14-36) U/L ALT (9-52) U/L Alkaline Phosphatase (38-126) U/L Total Creatine Kinase (30-135) U/L CK-MB (CK-2) (0.0-2.4) ng/mL CK-MB (CK-2) Rel Index Troponin I (0.000-0.034) ng/mL Total Protein (6.3-8.2) g/dL Albumin (3.5-5.0) g/dL Amylase (30-110) U/L Lipase (23-300) U/L - Radiology Data Radiology results: image reviewed (Chest x-ray shows no acute process) Disposition Clinical Impression: Chest pain, Back pain Disposition: ADMITTED IP TO THIS [facility] Referrals: Raza Purcell MD [Primary Care Provider] - 1-2 days Decision Time: 20:30
[2017-08-25 18:25] LABS: Glucose,Whole Blood 244 mg/dL (75-99)
[2017-08-25] MEDS ORDERED: MAG HYDROX/AL HYDROX/SIMETH 30 ML, HYOSCYAMINE ELIXIR 10 ML, CIMETIDINE HCL 300 MG, LID... PO STA ×4 (18:31)
[2017-08-25 18:36] LABS: Basophils % (A) 0 %; Eosinophils # (A) 0.1 k/uL (0-0.7); Eosinophils % (A) 2 %; HCT 42.4 % (34.0-46.0); HGB 13.6 gm/dL (11.4-16.0); Lymphocytes # (A) 0.8 k/uL (1.0-4.8); Lymphocytes % (A) 9 %; MCH 27.8 pg (25.0-35.0); MCHC 32.2 g/dL (31.0-37.0); MCV 86.4 fL (80.0-100.0); Mean Platelet Volume 7.7; Monocytes # (A) 0.5 k/uL (0-1.0); Monocytes % (A) 6 %; Neutrophils # (A) 7.4 k/uL (1.3-7.7); Neutrophils % (A) 82 %; Platelet Count 176 k/uL (150-450); RBC 4.91 m/uL (3.80-5.40); RDW 13.8 % (11.5-15.5); WBC 8.9 k/uL (3.8-10.6)
[2017-08-25 18:38] LABS: Calcium 11.1 mg/dL (8.4-10.2); Magnesium 1.2 mg/dL (1.6-2.3); Potassium 5.1 mmol/L (3.5-5.1); Total Protein 6.5 g/dL (6.3-8.2)
[2017-08-25 18:49] LABS: Creatine Kinase 51 U/L (30-135)
[2017-08-25] MEDS ORDERED: MORPHINE SULFATE 4 MG/ML SYRINGE IVP STA (18:58)
--- NOTE | 2017-08-25 19:02 | XR ---
EXAMINATION TYPE: XR chest 2V DATE OF EXAM: 08/25/2017 COMPARISON: August 11, 2016 HISTORY: Shortness of breath TECHNIQUE: Frontal and lateral views of the chest are obtained. FINDINGS: Scattered senescent parenchymal changes noted. Hyperinflation compatible with COPD. No evidence for infiltrate. No evidence for atelectasis. Heart size is stable. Mediastinal structures are stable and grossly unremarkable. No evidence for hilar prominence. Degenerative changes dorsal spine. IMPRESSION: 1. No evidence for acute pulmonary disease.
[2017-08-25 19:03] LABS: Creatine Kinase MB 0.9 ng/mL (0.0-2.4); D-Dimer 0.4 mg/L FEU (<0.60); Troponin I <0.012 ng/mL (0.000-0.034)
[2017-08-25] MEDS ORDERED: MORPHINE SULFATE/PF 10MG/10ML VL ONE ×2 (19:03→22:21)
[2017-08-25 19:12] LABS: Partial Thromboplastin Time 22.5 sec (22.0-30.0); Prothrombin Time 9.8 sec (9.0-12.0)
[2017-08-25] MEDS ORDERED: MAGNESIUM OXIDE 400 MG TAB PO STA (19:30)
[2017-08-25] MEDS: MAGNESIUM SULFATE-D5W PMX 1 GM in DEXTROSE/WATER 1 100ML.BAG IVPB SCH ×2 (20:09→22:26)
[2017-08-25] MEDS ORDERED: NITROGLYCERIN SL TABS 0.4 MG TAB SUBLINGUAL PRN (20:50)
[2017-08-25] MEDS ORDERED: MORPHINE SULFATE/PF 10MG/10ML VL IVP STA (22:25)
[2017-08-25] MEDS: CARVEDILOL 12.5 MG TAB PO SCH (22:26)
[2017-08-25] MEDS ORDERED: ALBUTEROL NEBULIZED 2.5 MG/3 ML INHALATION PRN (23:14)
[2017-08-25] MEDS ORDERED: Acetaminophen-Codeine 300-30mg TAB PO PRN (23:14)
[2017-08-25] MEDS ORDERED: DOCUSATE 100 MG CAP PO PRN (23:14)
[2017-08-25] MEDS ORDERED: ALBUTEROL INHALER 60 PUFF/8 GM INHALER INHALATION PRN (23:14)
[2017-08-25] MEDS ORDERED: INSULIN DETEMIR 100 UNIT/ML 10 ML VIAL SQ SCH (23:15)
[2017-08-25] MEDS ORDERED: TACROLIMUS 1 MG CAP PO SCH (23:34)
[2017-08-26 00:13] LABS: Glucose,Whole Blood 251 mg/dL (75-99)
[2017-08-26] MEDS: MYCOPHENOLATE SODIUM DR 180 MG TABLET.DR PO SCH ×2 (00:14→09:38)
[2017-08-26] MEDS: SODIUM BICARBONATE TAB 650 MG TAB PO SCH ×4 (00:14→17:04)
--- NOTE | 2017-08-26 00:19 | HP ---
HISTORY AND PHYSICAL DATE OF ADMISSION: 08/25/2017 PRESENTING COMPLAINT: Epigastric pain. HISTORY OF PRESENTING COMPLAINT: This is a pleasant 66-year-old patient of Dr. Purcell who had a kidney transplant back in 2015. Does follow up with Dr. Leonard out of [facility] on [facility]. The patient's other chronic stable medical conditions include diabetes mellitus type 2, hyperlipidemia, hypertension. The patient had been on hemodialysis and peritoneal dialysis previously. The patient on and off has had some epigastric pain, but for 3 days noticed that she is getting this epigastric pain that sometimes goes to the back and then from the back up to the front associated with nausea, sometimes worse with food, occasional heartburn. She noticed that sometimes the food feels like it may be getting stuck in the upper and the lower chest. No obvious precordial pain. The patient does remember getting a Botox injection previously, probably for lazy stomach. The patient within the years thinks she may have had a negative stress test by Dr. Whyte. In the ER there was a concern about this being a cardiac presentation. Hence, she has been brought in for these above symptoms. REVIEW OF SYSTEMS: CONSTITUTIONAL: No fever. HEENT: None. RESPIRATORY: None. CARDIOVASCULAR: None. GASTROINTESTINAL: As above. GENITOURINARY: None. MUSCULOSKELETAL: None. DERMATOLOGIC: None. HEMATOLOGIC: None. LYMPHATIC: None. PSYCHIATRY: None. NEUROLOGICAL: None. PAST HISTORY: Diabetes mellitus type 2, hyperlipidemia, hypertension, end-stage kidney disease, getting transplant, keloids, irritable bowel syndrome a while back and lazy stomach. PAST SURGICAL HISTORY: Cholecystectomy, hysterectomy, hemodialysis shunt in the left forearm, peritoneal dialysis catheter that was inserted and removed, renal transplant in July of 2015, EGD, colonoscopy, left knee arthroscopy, bilateral cataract, right eye surgical repair to detached retina. SOCIAL HISTORY: The patient smoked for about 10 years. Stopped in 1989. . No alcohol. FAMILY HISTORY: Brain aneurysm. HOME MEDICATIONS: 1. Prednisone 5 mg p.o. daily. 2. Ultram 50 mg q.6h p.r.n. 3. Prograf 4 mg at night and 3 mg in the morning. 4. Sodium bicarb 30 mg p.o. t.i.d. 5. Myfortic 360 mg p.o. b.i.d. 6. Cozaar 25 mg p.o. daily. 7. Humalog 20 units subcu a.c. lunch and 25 units q.h.s. 8. Humalog 9 units with breakfast, 12 units with supper. 9. Iron 325 p.o. daily. 10.Vitamin D2 50,000 units p.o. every 30 days. 11.Norvasc 10 mg p.o. daily. 12.Colace 100 mg p.o. b.i.d. p.r.n. 13.Coreg 12.5 p.o. b.i.d. 14.Lipitor 10 mg p.o. q.h.s. 15.Aspirin 81 mg p.o. daily. 16.Ventolin 2.5 q.i.d. p.r.n. 17.Ventolin HFA 2 puffs q.i.d. p.r.n. 18.Tylenol 3 one tab q.6h p.r.n. ALLERGIES: HYDRALAZINE and DEMEROL. PHYSICAL EXAMINATION: Temperature 98.8, pulse 84, respirations 18, blood pressure 123/75, pulse ox 100% on room air. GENERAL APPEARANCE: Well built, BMI 37.9, lying in bed, tired appearing. EYES: Pupils equal. Conjunctivae normal. HEENT: External appearance of nose and ears normal. Oral cavity normal. NECK: JVD not raised. Mass not palpable. RESPIRATORY: Effort normal. LUNGS: Fair air entry. CARDIOVASCULAR: First and second sounds normal. No edema. ABDOMEN: Soft, minimal epigastric tenderness. No guarding, rigidity. Liver and spleen not palpable. LYMPHATIC: No lymph nodes palpable in neck or axillae. PSYCHIATRY: Alert and oriented x3. Mood and affect. NEUROLOGICAL: Pupils appear grossly intact. Power and sensation grossly intact. EXTREMITIES: Left upper extremity has got a shunt in place. INVESTIGATIONS: White count 8.9, hemoglobin 13.6, potassium 5.1, BUN 22, creatinine 0.93, glucose 271. ASSESSMENT: 1. This is a patient who presented with epigastric pain going to the back with some nausea, sometimes feels the food is getting stuck lower down in the chest. Has had a previous Botox injection for lazy stomach, may be dealing with gastroparetic symptoms here. At the same time because the pain was becoming much worse today, I need to rule out peptic ulcer disease with associated esophagitis. 2. Diabetes mellitus type 2, chronically requiring insulin. 3. Renal transplant in 2005. 4. Hyperlipidemia. 5. Essential hypertension. 6. Obesity; BMI 37.99. 7. Rule out a cardiac cause. PLAN: The patient is admitted to telemetry to rule out a cardiac cause. In the meantime, we will consult GI. The patient will probably need EGD at least. In the meantime, home medications will be resumed. We will put the patient on a clear liquid diet after midnight except for medications. Care was discussed with the patient and questions were answered. MMODL / IJN: [id number] /
[2017-08-26] MEDS: traMADol 50 MG TAB PO PRN ×2 (00:30→06:17)
[2017-08-26 01:19] LABS: Creatine Kinase 45 U/L (30-135)
[2017-08-26 01:32] LABS: Creatine Kinase MB 0.6 ng/mL (0.0-2.4); Troponin I <0.012 ng/mL (0.000-0.034)
[2017-08-26] MEDS: NITROGLYCERIN OINT 1 INCH/GM PACKET TOPICAL SCH ×4 (04:28→17:05)
[2017-08-26 05:57] VITALS: RESP 16
[2017-08-26] MEDS: CARVEDILOL 12.5 MG TAB PO SCH ×2 (06:09→17:04)
[2017-08-26 06:12] LABS: Glucose,Whole Blood 175 mg/dL (75-99)
[2017-08-26] MEDS ORDERED: INSULIN DETEMIR 100 UNIT/ML 10 ML VIAL SQ SCH (06:18)
--- NOTE | 2017-08-26 06:20 | P.CONS ---
History of Present Illness - Reason for Consult Consult date: 08/26/17 Epigastric pain Requesting physician: Sam Pierson - History of Present Illness 66-year-old female renal transplant, diabetes mellitus, possible gastroparesis with previous Botox injection, cholecystectomy, IBS, hypertension, and hyperlipidemia. Patient presented with 2 week history of moderate epigastric pain radiating to upper back. Sometimes intermittent feeling of foods being stuck in the upper chest. Intermittent nausea and no emesis. Denies hematemesis hematochezia melena weight loss or fever. Daily aspirin usage no NSAIDs. No alcohol. History of EGD years ago with Botox injection secondary to "lazy stomach" at outside facility. No recent EGD. Home medications include daily prednisone no PPI/GI prophylaxis therapy. White count 8.9. Hemoglobin 13.6. Platelet 176. Lipase 38. LFTs unremarkable. Review of Systems Constitutional: Denies fever, chills, sweats, weight gain, or loss. HEENT: Negative for migraines, blurred vision or loss, earaches, drainage, tinnitus, oral mucosal lesions, dysphagia, or odynophagia. CARDIAC: Hyperlipidemia. Hypertension. Negative for chest pain, arrhythmias, or palpitation. RESPIRATORY: Asthma. Negative for shortness of breath, hemoptysis, cough, or sputum production. GI: See HPI for pertinent findings. : Negative for hematuria, urgency, frequency, polyuria, or dysuria. GYNc: Denies possibility of . Negative vaginal discharge. MUSCULOSKELETAL: Negative for muscle aches, swelling, arthritis, and arthralgias. NEUROLOGIC: Negative for stroke or TIA. Nephrology: Renal transplant. ENDOCRINE: Negative for thyroid problems. SKIN: Negative for rash or itching. PSYCHIATRIC: Negative history for depression and anxiety Past Medical History Past Medical History: Asthma, Diabetes Mellitus, Dialysis, Eye Disorder, Hyperlipidemia, Hypertension, Renal Disease, Skin Disorder Additional Past Medical History / Comment(s): KELOIDS, IBS "YEARS AGO",PREVIOUS HX OF DIALYSIS BUT THEN RECIEVED A RENAL TRANSPLANT. History of Any Multi-Drug Resistant Organisms: ESBL Year Discovered:: 2011(PREVIOUSLY CHARTED) MDRO Source:: peritoneal dialysis cath Past Surgical History: Cholecystectomy, Hysterectomy Additional Past Surgical History / Comment(s): hemodialysis shunt lt forearm, peritoneal dialysis insertion and removal- THEN RENAL TRANSPLANT 2-2015, EGD/ COLONOSCOPY, LT KNEE ARTHROSCOPY, EDUARDO CATARACTS, RT EYE SX TO REPAIR DETATCHED RETINA Past Anesthesia/Blood Transfusion Reactions: No Reported Reaction Additional Past Anesthesia/Blood Transfusion Reaction / Comm: has had a hard time coming out of anesthesia Smoking Status: Former smoker - Past Family History Mother History Unknown: Yes Father Additional Family Medical History / Comment(s): brain aneurysm Medications and Allergies Home Medications Medication Instructions Recorded Confirmed Type INSULIN LISPRO (HumaLOG) [humaLOG] 12 units SQ AC-LUNCH 01/02/16 08/25/17 History INSULIN LISPRO (HumaLOG) [humaLOG] 12 units SQ AC-SUPPER 01/02/16 08/25/17 History Tacrolimus [Prograf] 3 mg PO QAM 07/26/16 08/25/17 History Tacrolimus [Prograf] 4 mg PO HS 07/26/16 08/25/17 History Acetaminophen-Codeine 300-30mg 1 tab PO Q6H PRN 08/11/16 08/25/17 History [Tylenol w/codeine #3] Albuterol Inhaler [Ventolin Hfa 2 puff INHALATION RT-QID PRN 08/11/16 08/25/17 History Inhaler] Albuterol Nebulized [Ventolin 2.5 mg INHALATION RT-QID PRN 08/11/16 08/25/17 History Nebulized] Aspirin 81 mg PO DAILY 08/11/16 08/25/17 History Atorvastatin Calcium [Lipitor] 10 mg PO HS 08/11/16 08/25/17 History Carvedilol [Coreg*] 12.5 mg PO BID 08/11/16 08/25/17 History INSULIN LISPRO (humaLOG) [humaLOG] 9 units SQ AC-BRKFST 08/11/16 08/25/[address] [Myfortic] 360 mg PO BID 08/11/16 08/25/17 History Sodium Bicarbonate Tab 1,300 mg PO TID 08/11/16 08/25/17 History amLODIPine [Norvasc] 10 mg PO DAILY 08/11/16 08/25/17 History Docusate [Colace] 100 mg PO BID PRN 08/25/17 08/25/17 History Ergocalciferol (Vitamin D2) 50,000 unit PO Q30D 08/25/17 08/25/17 History [Vitamin D2] Ferrous Sulfate [Feosol] 325 mg PO DAILY 08/25/17 08/25/17 History Insulin Glargine,Hum.rec.anlog 25 unit SQ HS 08/25/17 08/25/17 History [Lantus Solostar] Losartan Potassium [Cozaar] 25 mg PO DAILY 08/25/17 08/25/17 History predniSONE 5 mg PO DAILY 08/25/17 08/25/17 History traMADol HCL [Ultram] 50 mg PO Q6HR PRN 08/25/17 08/25/17 History Allergies Allergy/AdvReac Type Severity Reaction Status Date / Time hydralazine [From Apresoline] Allergy Rash/Hives Verified 08/25/17 18:40 meperidine [From Demerol] Allergy Anaphylaxis Verified 08/25/17 18:40 Physical Exam Vitals: Vital Signs Temp Pulse Pulse Resp BP BP Pulse Ox 08/26/17 04:00 98.6 F 71 16 199/88 99 08/26/17 00:00 99.8 F H 77 18 186/85 98 08/25/17 22:12 98.5 F 84 20 189/91 100 08/25/17 20:07 86 16 179/97 100 08/25/17 18:40 94 16 189/91 100 08/25/17 18:32 74 16 123/75 100 08/25/17 18:19 71 18 123/75 100 08/25/17 17:44 98.8 F 85 18 211/96 100 Intake and Output 08/25/17 08/25/17 08/26/17 14:59 22:59 06:59 Other: # Voids 0 Weight 97.069 kg 72 kg General appearance: The patient is alert, oriented, in no acute distress. HET: Head is normocephalic and atraumatic. Pupils are equal and reactive. Oropharynx is clear without lesions. Neck: Supple without lymphadenopathy. Trachea midline. Heart: S1 S2. Regular rate and rhythm. Lungs: No crackles or wheezes are heard. Abdomen: Soft, mild midepigastric tenderness, nondistended with bowel sounds. No peritoneal signs. No palpable organomegaly or masses. Extremities: Normal skin color and turgor. No cyanosis, rash, ulceration, clubbing, or edema. Radial and pedal pulses are 2/4 bilaterally. Neurological: No focal deficits. Strength and sensation are grossly intact. Results CBC & Chem 7: 08/25/17 18:20 08/25/17 18:20 Labs: Abnormal Lab Results - Last 24 Hours (Table) 08/25/17 08/25/17 08/25/17 Range/Units 18:20 18:20 18:24 Lymphocytes # 0.8 L (1.0-4.8) k/uL Sodium 136 L (137-145) mmol/L BUN 22 H (7-17) mg/dL Glucose 271 H (74-99) mg/dL POC Glucose (mg/dL) 244 H (75-99) mg/dL Calcium 11.1 H (8.4-10.2) mg/dL Magnesium 1.2 L (1.6-2.3) mg/dL 08/26/17 08/26/17 Range/Units 00:12 06:11 Lymphocytes # (1.0-4.8) k/uL Sodium (137-145) mmol/L BUN (7-17) mg/dL Glucose (74-99) mg/dL POC Glucose (mg/dL) 251 H 175 H (75-99) mg/dL Calcium (8.4-10.2) mg/dL Magnesium (1.6-2.3) mg/dL Assessment and Plan (1) Epigastric pain Narrative/Plan: Possible GERD possible gastroparesis possible stricture disease Current Visit: Yes Status: Acute Code(s): R10.13 - EPIGASTRIC PAIN SNOMED Code(s): 11215992 (2) Diabetes Current Visit: Yes Status: Acute Code(s): E11.9 - TYPE 2 DIABETES MELLITUS WITHOUT COMPLICATIONS SNOMED Code(s): 25548393 (3) Renal transplant recipient Current Visit: Yes Status: Acute Code(s): Z94.0 - KIDNEY TRANSPLANT STATUS SNOMED Code(s): 634555368 (4) Gastroparesis Narrative/Plan: possible Current Visit: Yes Status: Acute Code(s): K31.84 - GASTROPARESIS SNOMED Code(s): 325021803 Plan: 1. EGD. The air valve repairer has discussed the risks, benefits and alternative therapies for the above-mentioned procedure and for both sedation/analgesia as well as necessary blood product administration, if indicated, as they pertain to this patient. The patient has indicated understanding and acceptance of the risks and procedures discussed. Thank you for this kind referral and the opportunity to participate in the care of your patient. This consultation was discussed with Dr. Allison. The impression and plan of care have been directed as dictated.
[2017-08-26 06:33] LABS: Creatine Kinase 36 U/L (30-135)
[2017-08-26 06:46] LABS: Creatine Kinase MB 0.5 ng/mL (0.0-2.4); Troponin I <0.012 ng/mL (0.000-0.034)
[2017-08-26] MEDS ORDERED: INSULIN ASPART 100 UNIT/ML 1 ML 10 ML VIAL SQ SCH ×3 (07:30→17:30)
[2017-08-26] MEDS ORDERED: predniSONE 5 MG TAB PO SCH (09:00)
[2017-08-26] MEDS ORDERED: amLODIPine 10 MG TAB PO SCH (09:00)
[2017-08-26] MEDS ORDERED: ASPIRIN 325 MG TAB PO SCH (09:00)
[2017-08-26] MEDS ORDERED: ASPIRIN 81 MG PO SCH ×2 (09:00)
[2017-08-26] MEDS ORDERED: FERROUS SULFATE 325 MG TAB PO SCH (09:00)
[2017-08-26] MEDS ORDERED: TACROLIMUS 1 MG CAP PO SCH ×2 (09:00→21:00)
[2017-08-26] MEDS ORDERED: LOSARTAN 25 MG TAB PO SCH (09:00)
[2017-08-26] MEDS ORDERED: TACROLIMUS 1 MG CAP PO ONE (09:50)
--- NOTE | 2017-08-26 10:59 | PN ---
PROGRESS NOTE CHIEF COMPLAINT: Epigastric pain. Mary is a 66-year-old lady with history of insulin-requiring diabetes, hypertension, dyslipidemia, and COPD who presents to hospital complaining of discomfort that is primarily epigastric. Cardiology has been consulted as there was some concern about it being cardiac when she first presented to the ER. She denies any chest pain, palpitations, dizziness or syncope. Patient had an echocardiogram little over a year ago that showed normal LV function with mildly dilated right ventricle. At the time of my evaluation, she appears comfortable at rest. Three sets of cardiac enzymes are negative and her LDL cholesterol is 59. An EKG on this admission reveals sinus rhythm with poor R-wave progression suggestive of anteroseptal myocardial infarction and possible inferior wall myocardial infarction. The EKG looks very similar to the one that she had in 2017. She apparently has had a negative stress test within the last one year. Her clinical presentation is not suggestive of cardiac in origin. She is to undergo an EGD later today. If that is benign and the patient is feeling better, she can be discharged home and I will arrange outpatient followup with Cardiology and if necessary, undergo an outpatient stress test. PAST MEDICAL HISTORY: Significant for diabetes, hypertension, dyslipidemia, and kidney transplant. ALLERGIES: As charted. FAMILY HISTORY: Negative for premature coronary artery disease. SOCIAL HISTORY: Negative for current smoking, ETOH abuse or drug abuse. REVIEW OF SYSTEMS: HEENT is unremarkable. CARDIAC: As described above. RESPIRATORY: Negative. GI: Negative. GENITOURINARY: Negative. MUSCULOSKELETAL: Significant for arthritis. PSYCHOSOCIAL: Negative. ENDOCRINE: Negative. DERM: Negative. CONSTITUTIONAL: Negative. ONCOLOGICAL: Negative. The rest of the system review is not relevant. PHYSICAL EXAM: Comfortable at rest. Vital signs are stable. There is no jugular venous distention. Carotid upstroke is normal. There is no bruit. Chest is clear to auscultation and percussion. Heart exam reveals first and second heart sounds. No gallop. No murmur. No rub. Abdomen is soft, nontender. Examination of the extremities did not reveal edema. Peripheral pulses are felt. LABS: Show that 3 sets of troponins are negative. LDL cholesterol is normal. Hemoglobin is normal at 13.6. EKG is abnormal, but is stable. ASSESSMENT: 1. Epigastric pain, workup in progress. 2. Hypertension. 3. Dyspnea. 4. Status post kidney transplant. PLAN: I will obtain a 2D echo on her and once the EGD is done, if she is stable, she may be discharged home and arrange outpatient followup with Cardiology and an outpatient stress test. SEEMA / KAREN: [id number] /
--- NOTE | 2017-08-26 11:33 | ECHOF ---
Referral Reason:chest pain MEASUREMENTS -------- HEIGHT: 160.0 cm WEIGHT: 97.1 kg BP: 199/88 RVIDd: 3.1 cm (< 3.3) IVSd: 1.5 cm (0.6 - 1.1) LVIDd: 4.1 cm (3.9 - 5.3) LVPWd: 1.5 cm (0.6 - 1.1) IVSs: 1.9 cm LVIDs: 2.9 cm LVPWs: 1.6 cm LA Diam: 3.6 cm (2.7 - 3.8) LAESV Index (A-L): 27.49 ml/m Ao Diam: 3.4 cm (2.0 - 3.7) AV Cusp: 2.0 cm (1.5 - 2.6) MV EXCURSION: 9.024 mm (> 18.000) MV EF SLOPE: 25 mm/s (70 - 150) EPSS: 1.2 cm MV E Baltazar: 0.83 m/s MV DecT: 376 ms MV A Baltazar: 1.07 m/s MV E/A Ratio: 0.77 AV maxP.54 mmHg AV meanP.98 mmHg RAP: 5.00 mmHg RVSP: 23.73 mmHg FINDINGS -------- Sinus rhythm. This was a technically adequate study. The left ventricular size is normal. There is moderate concentric left ventricular hypertrophy. O verall left ventricular systolic function is normal with, an EF between 55 - 60 %. The right ventricle is normal in size. Normal LA size by volume 22+/-6 ml/m2. The right atrium is normal in size. Mobile interatrial septum. There is mild aortic valve sclerosis. Trace to mild aortic regurgitation. The mitral valve leaflets are mildly thickened. Moderate mitral annular calcification present. Mild tricuspid regurgitation present. Right ventricular systolic pressure is normal at < 35 mmHg. The pulmonic valve was not well visualized. The aortic root size is normal. Normal inferior vena cava with normal inspiratory collapse consistent with estimated right atrial pre ssure of 5 mmHg. There is no pericardial effusion. CONCLUSIONS -------- 1. Sinus rhythm. 2. This was a technically adequate study. 3. The left ventricular size is normal. 4. There is moderate concentric left ventricular hypertrophy. 5. Overall left ventricular systolic function is normal with, an EF between 55 - 60 %. 6. The right ventricle is normal in size. 7. Normal LA size by volume 22+/-6 ml/m2. 8. The right atrium is normal in size. 9. Mobile interatrial septum. 10. There is mild aortic valve sclerosis. 11. Trace to mild aortic regurgitation. 12. The mitral valve leaflets are mildly thickened. 13. Moderate mitral annular calcification present. 14. Mild tricuspid regurgitation present. 15. Right ventricular systolic pressure is normal at < 35 mmHg. 16. The pulmonic valve was not well visualized. 17. The aortic root size is normal. 18. Normal inferior vena cava with normal inspiratory collapse consistent with estimated right atrial pressure of 5 mmHg. 19. There is no pericardial effusion. PROCESSING REP: Sara Delgado RDCS
[2017-08-26] MEDS ORDERED: ONDANSETRON 4 MG/2 ML VIAL IVP PRN (12:02)
[2017-08-26] MEDS ORDERED: SODIUM CHLORIDE 0.9% 1,000 ML IV SCH (12:15)
[2017-08-26 12:35] LABS: Glucose,Whole Blood 83 mg/dL (75-99)
[2017-08-26] MEDS ORDERED: PANTOPRAZOLE 40 MG TABLET PO STA (13:31)
--- NOTE | 2017-08-26 13:31 | P.PCN ---
Date of Procedure: 08/26/17 Procedure(s) Performed: BRIEF HISTORY: Patient is a 66-year-old, pleasant, female, admitted to the hospital with epigastric pain for the last few days duration. She is been having this pain in the epigastric area intermittently for the last 1 year but has been progressively getting worse the last few days. Cardiac evaluation was negative. She is scheduled for an upper endoscopy to evaluate for peptic ulcer disease.. PROCEDURE PERFORMED: Esophagogastroduodenoscopy with biopsy. PREOPERATIVE DIAGNOSIS: Chronic epigastric pain. IV sedation per anesthesia. PROCEDURE: After informed consent was obtained, the patient was brought into the endoscopy unit. IV sedation was administered by Anesthesia under continuous monitoring. Initially the Olympus GIF-140 video endoscope was inserted into the mouth. Esophagus intubated without any difficulty. It was gradually advanced into the stomach and duodenum and carefully examined. The bulb and the second part of the duodenum appeared normal. The scope at this time was withdrawn to the stomach, adequately insufflated with air, and upon careful examination, mucosa of the antrum had multiple scattered erosions consistent with gastritis and biopsies were done from this area. The, body, cardia and the fundus appeared normal. The scope was then withdrawn into the esophagus. The GE junction was located at 41 cm from the incisors. There were linear erosions noted in the distal esophagus consistent with LA grade B reflux esophagitis. The rest of the esophagus appeared normal seen and the patient tolerated the procedure well. IMPRESSION: 1. Linear erosions in the distal esophagus consistent with LA grade B reflux esophagitis. 2. Antral erosive gastritis. RECOMMENDATIONS: The findings of this examination were discussed with the patient. She was advised to follow with the biopsy results. She'll be started back on Prilosec 20 mg daily and was briefly educated about antireflux measures.
[2017-08-26] MEDS ORDERED: PROPOFOL 10 MG/ML 20 ML VIAL IV ONE (13:36)
[2017-08-26] MEDS ORDERED: LIDOCAINE 1% INJ 10MG/ML (20 ML MDV) ONE (13:36)
--- NOTE | 2017-08-26 14:17 | CONS ---
CONSULTATION REASON FOR CONSULT: Status post renal transplant. DATE OF CONSULTATION: 08/26/2017 HISTORY OF PRESENT ILLNESS: Patient is a 66-year-old female with a history of donor transplant in July of 2015. Patient's creatinine has been normal. She is currently at 0.93 mg/dL. Patient was admitted to the hospital with complaints of epigastric pain radiating to the back. She denied any significant nausea, vomiting or diarrhea. No chest pressure and there was no radiation to the arm or jaw. Troponins are negative. Calcium was noted to be elevated at 11.1. The patient is scheduled for endoscopy today. PAST MEDICAL HISTORY: 1. End-stage renal disease, previously on hemodialysis, currently status post kidney transplant in July of 2011, it was a donor. Serum creatinine is at 0.93 mg/dL. Continue current immunosuppressive medications. 2. Hypercalcemia. Patient denies use of any calcium supplements. I will check vitamin D, PTH levels, serum and urine immunofixation. Continue with the normal saline. 3. Hypertension. It is better controlled. Patient's blood pressure had been significantly elevated on initial admission, currently starting HD. Will continue the current medications for now. 4. Epigastric pain, rule out peptic ulcer disease, scheduled for EGD. 5. Concentric LVH noted on echocardiogram done this admission. PLAN: Continue normal saline. Check PTH level. Vitamin D and serum and urine immunofixation. I will also check her serum calcium as outpatient. Thank you for this consultation. Will continue to follow the patient with you during her hospitalization. MMODL / IJN: [id number] /
[2017-08-26 15:15] VITALS: BP 163/52; PULSE 79; TEMP 98.3
[2017-08-26 16:51] LABS: Glucose,Whole Blood 198 mg/dL (75-99)
[2017-08-26 19:26] LABS: Vitamin D 25 Hydroxy 16.8 ng/mL (30.0-100.0)
--- NOTE | 2017-08-26 20:20 | DS ---
DISCHARGE SUMMARY DATE OF ADMISSION: 08/25/2017. DATE OF DISCHARGE: 08/25/2017 FINAL DIAGNOSES: 1. Epigastric pain from acute gastritis. 2. Dysphagia from reflux esophagitis. 3. Diabetes mellitus, type 2, chronically requiring insulin. 4. Renal transplant in 2016. 5. Hyperlipidemia. 6. Essential hypertension. 7. Obesity; body mass index of 37.9. HOSPITAL COURSE: This patient presented with epigastric pain. EGD did show patient to have gastritis and esophagitis. She was put on PPIs. Presentation was not really felt to be cardiac. She was seen by Dr. Gala Allison from Cardiology, who okayed her to be discharged. She was also seen by Dr. Magaña from Nephrology. Patient is doing much better. PHYSICAL EXAMINATION: ABDOMEN: Soft. Minimal tenderness. Lungs are clear. CARDIOVASCULAR: First and second sounds normal. DISCHARGE MEDICATIONS: 1. Humalog 12 units before lunch, 12 units before supper. 2. Prograf 4 mg at bedtime, 4 mg in the morning. 3. Tylenol #3 one tablet q.6 p.r.n. 4. Ventolin 2 puffs q.i.d. p.r.n. 5. Ventolin nebulizer 2.5 q.i.d. p.r.n. 6. Aspirin 81 mg p.o. daily. 7. Lipitor 10 mg at bedtime. 8. Coreg 12.5 p.o. b.i.d. 9. Humalog 9 units subcutaneously before breakfast. 10.Myfortic 360 mg p.o. b.i.d. 11.Sodium bicarb 650 mg p.o. t.i.d. 12.Norvasc 10 mg p.o. daily. 13.Vitamin D2 50,000 units subcutaneously every 30 days. 14.Iron 325 p.o. daily. 15.Lantus 25 units subcutaneously at bedtime. 16.Cozaar 25 mg p.o. daily. 17.Prednisone 5 mg p.o. daily. 18.Ultram 50 mg q.6 p.r.n. 19.Prilosec 20 mg p.o. b.i.d. Follow up with Dr. Purcell in 1 week, Dr. Johny Allsion in 4 weeks, Dr. Gala Allison in 1 week. Patient is to follow up with her renal transplant doctor as scheduled. MMODL / IJN: [id number] /
[2017-08-26] MEDS ORDERED: ATORVASTATIN 10 MG TAB PO SCH (21:00)
[2017-08-27] MEDS ORDERED: TACROLIMUS 1 MG CAP PO SCH (09:00)
== END 2017-08-26 19:54 | disposition home or self-care (01) | DRG 392 ==
LOC: EC 17:39 → 6SEL 20:30
PROVIDERS: ADMIT Hospitalist; ATTEND Hospitalist
PROC: 0DB78ZX Excision of Stomach, Pylorus, Via Natural or Artificial Opening Endoscopic, Diagnostic (ICD-10-PCS; principal; 2017-08-26 08:30)
DX: K29.00 Acute gastritis without bleeding (principal); K31.84 Gastroparesis; E83.52 Hypercalcemia; Z94.0 Kidney transplant status; I11.9 Hypertensive heart disease without heart failure; E11.43 Type 2 diabetes mellitus with diabetic autonomic (poly)neuropathy; J44.9 Chronic obstructive pulmonary disease, unspecified; G89.29 Other chronic pain; K21.0 Gastro-esophageal reflux disease with esophagitis; K29.60 Other gastritis without bleeding; K58.9 Irritable bowel syndrome, unspecified; E78.5 Hyperlipidemia, unspecified; L91.0 Hypertrophic scar; E66.9 Obesity, unspecified; Z68.37 Body mass index [BMI] 37.0-37.9, adult; Z79.82 Long term (current) use of aspirin; Z79.899 Other long term (current) drug therapy; Z79.4 Long term (current) use of insulin; Z79.52 Long term (current) use of systemic steroids; Z87.891 Personal history of nicotine dependence; Z86.19 Personal history of other infectious and parasitic diseases; Z90.49 Acquired absence of other specified parts of digestive tract; Z90.710 Acquired absence of both cervix and uterus; Z98.42 Cataract extraction status, left eye; Z98.41 Cataract extraction status, right eye; Z88.5 Allergy status to narcotic agent; Z88.8 Allergy status to other drugs, medicaments and biological substances
CPT/HCPCS: 36415; 43239; 71046; 80053; 80061; 82150; 82306; 82550; 82553; 82652; 83690; 83735; 83970; 84484; 85025; 85379; 85610; 85730; 86334; 86335; 88305; 93005; 93306; 96365; 96375; 96376; 99285

== ENCOUNTER → 2017-10-12 | Outpatient (CLI) | payer MEDICARE, BC ==
--- NOTE | 2017-10-12 14:54 | P.HPOB ---
History of Present Illness H&P Date: 10/12/17 Chief Complaint: The patient is here for her routine gynecologic exam and mammogram. This is a 66-year-old with an LMP of 1994 who is status post vaginal hysterectomy for benign reasons. The patient is without gynecologic complaints. She states she is not being been feeling well since 3 days ago. She has had the nausea and vomiting and diarrhea which started 3 days ago. She' s no longer vomiting. She has had 3 episodes of loose stool today. She denies fever. Review of Systems She has gained about 30 pounds over the last 2 years. She denies respiratory or cardiac problems. G.I.: she has had nausea vomiting and diarrhea as in the HPI. : she has occasional slight urinary leakage with coughing and laughing. She denies maltreatment or falling. Past Medical History Past Medical History: Asthma, Diabetes Mellitus, Dialysis, Eye Disorder, Hyperlipidemia, Hypertension, Renal Disease (Chronic renal failure status post transplant in 2016.), Skin Disorder Additional Past Medical History / Comment(s): KELOIDS, IBS "YEARS AGO",PREVIOUS HX OF DIALYSIS BUT THEN RECIEVED A RENAL TRANSPLANT. History of Any Multi-Drug Resistant Organisms: ESBL Date of last positivie culture/infection: 2011 approx(PREVIOUSLY CHARTED) MDRO Source:: peritoneal dialysis cath Past Surgical History: Cholecystectomy, Hysterectomy (Vaginal in 1994) Additional Past Surgical History / Comment(s): hemodialysis shunt lt forearm, peritoneal dialysis insertion and removal- THEN RENAL TRANSPLANT 2-2015, EGD/ COLONOSCOPY, LT KNEE ARTHROSCOPY, EDUARDO CATARACTS, RT EYE SX TO REPAIR DETATCHED RETINA. Colonoscopy 2017 and this was her 3rd. Past Anesthesia/Blood Transfusion Reactions: No Reported Reaction Additional Past Anesthesia/Blood Transfusion Reaction / Comment(s): has had a hard time coming out of anesthesia Past Psychological History: No Psychological Hx Reported Smoking Status: Former smoker Past Alcohol Use History: None Reported Past Drug Use History: None Reported - Past Family History Mother History Unknown: Yes Father Additional Family Medical History / Comment(s): brain aneurysm Medications and Allergies Home Medications Medication Instructions Recorded Confirmed Type INSULIN LISPRO (HumaLOG) [humaLOG] 12 units SQ AC-LUNCH 01/02/16 08/25/17 History INSULIN LISPRO (HumaLOG) [humaLOG] 12 units SQ AC-SUPPER 01/02/16 08/25/17 History Tacrolimus [Prograf] 4 mg PO BID 07/26/16 08/25/17 History Albuterol Inhaler [Ventolin Hfa 2 puff INHALATION RT-QID PRN 08/11/16 08/25/17 History Inhaler] Albuterol Nebulized [Ventolin 2.5 mg INHALATION RT-QID PRN 08/11/16 08/25/17 History Nebulized] Aspirin 81 mg PO DAILY 08/11/16 08/25/17 History Atorvastatin Calcium [Lipitor] 10 mg PO HS 08/11/16 08/25/17 History Carvedilol [Coreg*] 12.5 mg PO BID 08/11/16 08/25/17 History INSULIN LISPRO (humaLOG) [humaLOG] 9 units SQ AC-BRKFST 08/11/16 08/25/[address] [Myfortic] 360 mg PO BID 08/11/16 08/25/17 History Sodium Bicarbonate Tab 650 mg PO TID 08/11/16 08/26/17 History amLODIPine [Norvasc] 10 mg PO DAILY 08/11/16 08/25/17 History Ergocalciferol (Vitamin D2) 50,000 unit PO Q30D 08/25/17 08/25/17 History [Vitamin D2] Ferrous Sulfate [Iron (65 MG 325 mg PO DAILY 08/25/17 08/25/17 History Elemental)] Insulin Glargine,Hum.rec.anlog 25 unit SQ HS 08/25/17 08/25/17 History [Lantus Solostar] Losartan Potassium [Cozaar] 25 mg PO DAILY 08/25/17 08/25/17 History predniSONE 5 mg PO DAILY 08/25/17 08/25/17 History traMADol HCL [Ultram] 50 mg PO Q6HR PRN 08/25/17 08/25/17 History Omeprazole [PriLOSEC] 20 mg PO AC-BID #60 cap 08/26/17 Rx Allergies Allergy/AdvReac Type Severity Reaction Status Date / Time hydralazine [From Apresoline] Allergy Rash/Hives Verified 08/25/17 18:40 meperidine [From Demerol] Allergy Anaphylaxis Verified 08/25/17 18:40 Exam - Vital Signs Vital signs: Blood pressure 152/70, height 5'3", weight 219 pounds, tension 90.1, pulse 84, BMI 39. This is a well-developed well-nourished black female who is alert and oriented times 3 in no acute distress. HEENT: Within normal limits. NECK: Supple without mass or thyromegaly. CHEST AND LUNGS: Clear to auscultation. HEART: Regular rate and rhythm. BREASTS: Are without mass or discharge. AXILLARY EXAM: Negative for adenopathy. BACK: Negative for CVA tenderness. ABDOMEN: obese, soft with one plus bowel sounds. There is mild epigastric tenderness without rebound tenderness. There are no palpable abdominal masses. There is no low abdominal tenderness. PELVIC EXAM: External genitalia appears normal with mild to moderate atrophy. Vagina appears normal with mild to moderate atrophy. There is no evidence of prolapse. Bimanual examination is negative for mass or tenderness. RECTAL EXAM: Rectovaginal exam is negative for mass or tenderness and is negative for occult blood. EXTREMITIES: Nontender. IMPRESSION: 1. 66 year old menopausal female who is status post vaginal hysterectomy for benign reasons with normal gynecologic exam. 2. Probable gastroenteritis. PLAN: 1. Pap smears have been discontinued. 2. Self breast awareness was discussed. 3. Screening mammogram will be done today. 4. She did receive a flu shot last fall. 5. I have recommended that she tried to keep liquids down such as flat cat armani or chicken soup. If she is unable to keep anything down, if feeling lightheaded or faint or if problems persist, she should follow up with Dr. Purcell or go to the emergency room. 6. She will return in one year.
--- NOTE | 2017-10-13 08:57 | MM ---
Reason for exam: screening (asymptomatic). Last mammogram was performed 1 year and 7 months ago. History: Patient is postmenopausal. Physical Findings: A clinical breast exam by your physician is recommended on an annual basis and results should be correlated with mammographic findings. MG 3D Screening Mammo W/Cad Bilateral CC and MLO view(s) were taken. Prior study comparison: March 02, 2016, bilateral MG 3d screening mammo w/cad. August 27, 2014, bilateral MG screening mammo w CAD. There are scattered fibroglandular densities. There are typically benign round calcifications in both breasts. There is no discrete abnormality. ASSESSMENT: Benign, BI-RAD 2 RECOMMENDATION: Routine screening mammogram of both breasts in 1 year.
== END | disposition home or self-care (01) ==
LOC: WWCWWP 09:38
PROVIDERS: ATTEND Obstetrics & Gynecology
DX: Z12.31 Encounter for screening mammogram for malignant neoplasm of breast (principal)
CPT/HCPCS: 77063; 77067

== ENCOUNTER → 2017-12-13 | Outpatient (CLI) | payer MEDICARE, BC ==
[2017-12-13 14:21] VITALS: BP 155/65; PULSE 72; RESP 16; TEMP 97.9
== END | disposition home or self-care (01) ==
LOC: PROCWHC3 13:44
PROVIDERS: ATTEND Family Medicine
DX: M81.0 Age-related osteoporosis without current pathological fracture (principal)
CPT/HCPCS: 96372; J0897

== ENCOUNTER 2018-06-01 08:14 | Emergency (ER) | payer MEDICARE, BC ==
[2018-06-01 08:28] VITALS: TEMP 98.5
[2018-06-01] MEDS ORDERED: SODIUM CHLORIDE 0.9% 1,000 ML IV STA ×2 (08:34)
[2018-06-01] MEDS ORDERED: ONDANSETRON 4 MG/2 ML VIAL IVP STA (08:34)
[2018-06-01] MEDS ORDERED: MORPHINE SULFATE 4 MG/ML SYRINGE IV STA (08:34)
--- NOTE | 2018-06-01 08:36 | ED ---
Abdominal Pain HPI - General Chief Complaint: Abdominal Pain Stated Complaint: flu symptoms Time Seen by Provider: 06/01/18 08:18 Source: patient, EMS, RN notes reviewed, old records reviewed Mode of arrival: EMS Limitations: no limitations - History of Present Illness Initial Comments: This is a 67-year-old female the ER with flulike symptoms. Patient states she does not feel well she has bodyaches body pains pain in her right side pain in her right abdomen pain in her back. Right Leg. Patient denies trauma, denies any fevers. Patient also has persistent nausea vomiting again abdominal pain and elevated blood sugar. Patient's pain again is right flank right back to right groin. Patient denies history of similar complaint. Patient states she is kidney transplant patient, no history of pain in that area MD Complaint: abdominal pain, flank pain (Right) -: days(s) Location: RLQ, R flank Radiation: none Migration to: RLQ, R flank Severity: moderate Severity scale (1-10): 4 Quality: stabbing, aching Consistency: constant Improves With: nothing Worsens With: nothing Context: other (None) Associated Symptoms: nausea, vomiting - Related Data Home Medications Medication Instructions Recorded Confirmed INSULIN LISPRO (HumaLOG) [humaLOG] 12 units SQ AC-LUNCH 01/02/16 06/01/18 INSULIN LISPRO (HumaLOG) [humaLOG] 14 units SQ AC-SUPPER 01/02/16 06/01/18 Tacrolimus [Prograf] 4 mg PO QAM 07/26/16 06/01/18 Albuterol Inhaler [Ventolin Hfa 2 puff INHALATION RT-QID PRN 08/11/16 06/01/18 Inhaler] Albuterol Nebulized [Ventolin 2.5 mg INHALATION RT-QID PRN 08/11/16 06/01/18 Nebulized] Aspirin 81 mg PO DAILY 08/11/16 06/01/18 Atorvastatin Calcium [Lipitor] 10 mg PO HS 08/11/16 06/01/18 Carvedilol [Coreg*] 12.5 mg PO BID 08/11/16 06/01/18 INSULIN LISPRO (humaLOG) [humaLOG] 9 units SQ AC-BRKFST 08/11/16 06/01/[address] [Myfortic] 360 mg PO BID 08/11/16 06/01/18 Sodium Bicarbonate Tab 650 mg PO TID 08/11/16 06/01/18 amLODIPine [Norvasc] 10 mg PO DAILY 08/11/16 06/01/18 Ergocalciferol (Vitamin D2) 50,000 unit PO Q30D 08/25/17 06/01/18 [Vitamin D2] Insulin Glargine,Hum.rec.anlog 30 unit SQ HS 08/25/17 06/01/18 [Lantus Solostar] Losartan Potassium [Cozaar] 25 mg PO DAILY 08/25/17 06/01/18 predniSONE 5 mg PO DAILY 08/25/17 06/01/18 traMADol HCL [Ultram] 50 mg PO Q6HR PRN 08/25/17 06/01/18 Tacrolimus [Prograf] 3 mg PO HS 06/01/18 06/01/18 Allergies Allergy/AdvReac Type Severity Reaction Status Date / Time hydralazine [From Apresoline] Allergy Rash/Hives Verified 06/01/18 08:59 Iodinated Contrast- Oral and Allergy Unknown Verified 06/01/18 08:59 IV Dye meperidine [From Demerol] Allergy Anaphylaxis Verified 06/01/18 08:59 Review of Systems ROS Statement: Those systems with pertinent positive or pertinent negative responses have been documented in the HPI. ROS Other: All systems not noted in ROS Statement are negative. Past Medical History Past Medical History: Asthma, Diabetes Mellitus, Dialysis, Eye Disorder, Hyperlipidemia, Hypertension, Renal Disease, Skin Disorder Additional Past Medical History / Comment(s): KELOIDS, IBS "YEARS AGO",PREVIOUS HX OF DIALYSIS BUT THEN RECIEVED A RENAL TRANSPLANT. History of Any Multi-Drug Resistant Organisms: ESBL Date of last positivie culture/infection: 2011 approx(PREVIOUSLY CHARTED) MDRO Source:: peritoneal dialysis cath Past Surgical History: Cholecystectomy, Hysterectomy Additional Past Surgical History / Comment(s): hemodialysis shunt lt forearm, peritoneal dialysis insertion and removal- THEN RENAL TRANSPLANT 2-2015, EGD/ COLONOSCOPY, LT KNEE ARTHROSCOPY, EDUARDO CATARACTS, RT EYE SX TO REPAIR DETATCHED RETINA. Colonoscopy 2018 and this was her 3rd. Past Anesthesia/Blood Transfusion Reactions: No Reported Reaction Additional Past Anesthesia/Blood Transfusion Reaction / Comment(s): has had a hard time coming out of anesthesia Past Psychological History: No Psychological Hx Reported Smoking Status: Former smoker Past Alcohol Use History: None Reported Past Drug Use History: None Reported - Past Family History Mother History Unknown: Yes Father Additional Family Medical History / Comment(s): brain aneurysm General Exam Limitations: no limitations General appearance: alert, in no apparent distress, anxious, obese Head exam: Present: atraumatic, normocephalic, normal inspection Eye exam: Present: normal appearance, PERRL, EOMI. Absent: scleral icterus, conjunctival injection, periorbital swelling ENT exam: Present: normal exam, mucous membranes moist Neck exam: Present: normal inspection. Absent: tenderness, meningismus, lymphadenopathy Respiratory exam: Present: normal lung sounds bilaterally. Absent: respiratory distress, wheezes, rales, rhonchi, stridor Cardiovascular Exam: Present: regular rate, normal rhythm, normal heart sounds. Absent: systolic murmur, diastolic murmur, rubs, gallop, clicks GI/Abdominal exam: Present: soft, normal bowel sounds. Absent: distended, tenderness, guarding, rebound, rigid Extremities exam: Present: normal inspection, full ROM, normal capillary refill. Absent: tenderness, pedal edema, joint swelling, calf tenderness Back exam: Present: normal inspection Neurological exam: Present: alert, oriented X3, CN II-XII intact Psychiatric exam: Present: normal affect, normal mood Skin exam: Present: warm, dry, intact, normal color. Absent: rash Course Vital Signs 06/01/18 06/01/18 08:19 11:50 Temperature 98.5 F Pulse Rate 99 108 H Respiratory 20 18 Rate Blood Pressure 155/101 157/90 O2 Sat by Pulse 100 100 Oximetry - Reevaluation(s) Reevaluation #1: 06/01/18 10:09 Medical records reviewed Reevaluation #2: 06/01/18 10:09 Patient's difficult IV start Reevaluation #3: 06/01/18 12:26 Patient has adequate pain control currently Medical Decision Making - Medical Decision Making 67 female the ER with writhing pain, right flank pain right groin pain. Patient does have small 1 mm right-sided calculus. Patient given pain control, increase oral intake and can be discharged home - Lab Data Result diagrams: 06/01/18 09:20 06/01/18 09:20 Lab Results 12/06/01/18 06/01/18 Range/Units 09:20 09:20 09:20 WBC 11.5 H (3.8-10.6) k/uL RBC 5.00 (3.80-5.40) m/uL Hgb 13.1 (11.4-16.0) gm/dL Hct 44.1 (34.0-46.0) % MCV 88.2 D (80.0-100.0) fL MCH 26.2 (25.0-35.0) pg MCHC 29.8 L (31.0-37.0) g/dL RDW 13.6 (11.5-15.5) % Plt Count 200 (150-450) k/uL Neutrophils % 78 % Lymphocytes % 11 % Monocytes % 9 % Eosinophils % 1 % Basophils % 0 % Neutrophils # 9.0 H (1.3-7.7) k/uL Lymphocytes # 1.2 (1.0-4.8) k/uL Monocytes # 1.1 H (0-1.0) k/uL Eosinophils # 0.1 (0-0.7) k/uL Basophils # 0.0 (0-0.2) k/uL Hypochromasia Slight Sodium 139 (137-145) mmol/L Potassium 4.8 (3.5-5.1) mmol/L Chloride 106 (98-107) mmol/L Carbon Dioxide 18 L (22-30) mmol/L Anion Gap 15 mmol/L BUN 15 (7-17) mg/dL Creatinine 1.13 H (0.52-1.04) mg/dL Est GFR (CKD-EPI)AfAm 58 (>60 ml/min/1.73 sqM) Est GFR (CKD-EPI)NonAf 51 (>60 ml/min/1.73 sqM) Glucose 323 H (74-99) mg/dL Plasma Lactic Acid David 1.7 (0.7-2.0) mmol/L Calcium 10.4 H (8.4-10.2) mg/dL Total Bilirubin 1.0 (0.2-1.3) mg/dL AST 14 (14-36) U/L ALT 7 L (9-52) U/L Alkaline Phosphatase 77 (38-126) U/L Total Protein 7.5 (6.3-8.2) g/dL Albumin 4.0 (3.5-5.0) g/dL Amylase 49 (30-110) U/L Lipase 17 L (23-300) U/L - Radiology Data Radiology results: report reviewed (CT abdomen and pelvis positive for 1 mm right-sided kidney stone), image reviewed Disposition Clinical Impression: Back pain, Renal transplant recipient, Right kidney stone Disposition: HOME SELF-CARE Condition: Good Instructions: Kidney Stones (ED) Is patient prescribed a controlled substance at d/c from ED?: No Referrals: Raza Purcell MD [Primary Care Provider] - 1-2 days
[2018-06-01] MEDS ORDERED: MORPHINE SULFATE 4 MG/ML SYRINGE IM STA (09:53)
[2018-06-01] MEDS ORDERED: ONDANSETRON 4 MG/2 ML VIAL IM STA (09:55)
[2018-06-01 10:02] LABS: Calcium 10.4 mg/dL (8.4-10.2); Potassium 4.8 mmol/L (3.5-5.1); Total Protein 7.5 g/dL (6.3-8.2)
[2018-06-01 10:07] LABS: Basophils % (A) 0 %; Eosinophils # (A) 0.1 k/uL (0-0.7); Eosinophils % (A) 1 %; HCT 44.1 % (34.0-46.0); HGB 13.1 gm/dL (11.4-16.0); Hypochromasia Slight; Lymphocytes # (A) 1.2 k/uL (1.0-4.8); Lymphocytes % (A) 11 %; MCH 26.2 pg (25.0-35.0); MCHC 29.8 g/dL (31.0-37.0); Mean Platelet Volume 9.4; Monocytes # (A) 1.1 k/uL (0-1.0); Monocytes % (A) 9 %; Neutrophils % (A) 78 %; Platelet Count 200 k/uL (150-450); RDW 13.6 % (11.5-15.5); WBC 11.5 k/uL (3.8-10.6)
[2018-06-01 10:08] LABS: MCV 88.2 fL (80.0-100.0)
--- NOTE | 2018-06-01 10:45 | CT ---
EXAMINATION TYPE: CT abdomen pelvis wo con DATE OF EXAM: 06/01/2018 COMPARISON: 09/02/2016 an 08/23/2009 HISTORY: 67-year-old female Flu symptoms, RLQ, hip and pelvic pain CT DLP: 831.6 mGycm. Automated exposure control for dose reduction was used. TECHNIQUE: Contiguous axial scanning of the abdomen and pelvis without IV contrast. Coronal and sagit shirley reconstructions performed. FINDINGS: Heart normal size with small pericardial effusion. Coronary vessel calcifications are present along w ith mitral annular calcifications. Lung bases clear without pleural effusion. Noncontrast appearance of the liver, adrenal glands, spleen, atrophic pancreas show no gross abnormal ity. Lack of IV contrast limits assessment of the solid abdominal viscera. Cholecystectomy clips are present. Atrophic bilateral [place] kidneys. Subtle 8 mm hypodense lesion anteriorly in the left kidney is unch anged. 3 mm nonobstructive calculus left kidney is unchanged. No hydronephrosis. Some mildly prominent fluid-filled small bowel loops in the left upper and midabdomen. No abnormal disha wel dilatation. No free fluid or free air. Mild atherosclerotic calcifications within the abdominal aorta. Right lower quadrant transplant kidney is demonstrated. Not well evaluated by noncontrast CT. No hydr onephrosis seen. Mild prominence to the transplant right ureter. Punctate 1 mm density along the dist al transplanted right ureter, axial image 71 could represent some surgical serial. Tiny calculus. Densities near the transplant renal hilum likely postsurgical in etiology. Normal appendix. No significant stool burden. Sigmoid diverticulosis without evidence for acute diver ticulitis. Bladder incompletely distended. Mild circumferential wall thickening may be due to underdistention. M ultiple pelvic phleboliths. Extensive arterial calcifications compatible with chronic kidney disease. Rounded lesions within each adnexa show some peripheral and central calcification measuring up to 2. 4 cm. These 2 lesions were present in the right adnexa on 08/23/2009 suggesting some mobile partially calcified ovaries or multiple lymph nodes. The former is favored. No abnormal fluid collection in the pelvis or pelvic lymphadenopathy. Moderate degenerative changes at the hips. At least mild degenerative changes at the SI joints. Sever e degenerative changes are demonstrated within the spine with chronic superior endplate deformity of L4 and advanced disc/endplate degenerative change at T10-T11.-Within the visualized lower thoracic sp ine and stable grade 1 anterolisthesis of L3-L4. Moderate right-sided neuroforaminal stenosis at L3-L4 and possible severe at L4-L5. At least moderate left-sided neuroforaminal stenosis from L3 through S1 levels on the left. IMPRESSION: 1. Sigmoid diverticulosis without evidence for acute diverticulitis. 2. Atrophic bilateral [place] kidneys with right lower quadrant transplant. There is a punctate 1 mm d ensity along the distal transplant ureter that could represent some surgical material or a punctate c alculus. There is mild ureteral prominence but no ari hydronephrosis. 3. A few prominent fluid-filled small bowel loops in the left side of the upper to mid abdomen could represent a regional enteritis. 4. Moderate bilateral hip OA and advanced degenerative changes throughout the lumbar spine redemonstr ated.
[2018-06-01 11:55] VITALS: BP 157/90; PULSE 108; RESP 18
[2018-06-01] MEDS ORDERED: HYDROmorphone 1 MG/ML 1 ML SYRINGE IM STA (12:11)
[2018-06-01] MEDS ORDERED: TAMSULOSIN 0.4 MG CAP.ER.24H PO STA (12:26)
[2018-06-01] MEDS ORDERED: Acetaminophen-Codeine 300-30mg TAB PO STA (12:26)
[2018-06-01] MEDS ORDERED: ACET/COD 300 MG/30 MG STARTER PACK 6 TAB BTL PO STA (12:27)
== END 2018-06-01 13:36 | disposition home or self-care (01) ==
LOC: EC 08:14
DX: N20.0 Calculus of kidney (principal); Z94.0 Kidney transplant status; E78.5 Hyperlipidemia, unspecified; I10 Essential (primary) hypertension; E11.9 Type 2 diabetes mellitus without complications; J45.909 Unspecified asthma, uncomplicated; Z87.891 Personal history of nicotine dependence; Z88.5 Allergy status to narcotic agent; Z88.8 Allergy status to other drugs, medicaments and biological substances; Z91.041 Radiographic dye allergy status; Z79.4 Long term (current) use of insulin; Z79.82 Long term (current) use of aspirin; Z79.899 Other long term (current) drug therapy; Z79.52 Long term (current) use of systemic steroids; Z90.49 Acquired absence of other specified parts of digestive tract; Z90.710 Acquired absence of both cervix and uterus; Z53.8 Procedure and treatment not carried out for other reasons
CPT/HCPCS: 36415; 80053; 82150; 83605; 83690; 85025; 74176; 99285; 96372 ×3; J2270; J2405; J1170

== ENCOUNTER 2018-06-13 16:56 | Inpatient (IN) | payer BC, MEDICARE ==
[2018-06-13 17:01] LABS: Glucose,Whole Blood 356 mg/dL (75-99)
[2018-06-13] MEDS ORDERED: SODIUM CHLORIDE 0.9% 2,000 ML IV ONE (17:14)
[2018-06-13] MEDS ORDERED: SODIUM CHLORIDE 0.9% 1,000 ML IV STA (17:14)
--- NOTE | 2018-06-13 17:21 | ED ---
General Adult HPI - General Stated complaint: Abd.pain Time Seen by Provider: 06/13/18 17:00 Source: family, EMS, RN notes reviewed, old records reviewed Mode of arrival: EMS - History of Present Illness Initial comments: This is a 67-year-old female with a history of kidney transplant 2 or 3 years ago who was seen in this emergency department about a week ago and diagnosed with a right-sided kidney stone who is brought in today because of altered mental status lethargy. She was found by EMS have a blood sugar of 541 temperature 102.3 she was tachycardic. She complains some flank pain in the left side apparently no nausea no vomiting. She apparently was in her normal mental status 2 days ago and was found by a friend today to be lethargic and altered. No reports of any trauma or other modifying factors at this time. Per her son she normally has low blood sugar not high blood sugar. - Related Data Home Medications Medication Instructions Recorded Confirmed INSULIN LISPRO (HumaLOG) [humaLOG] 12 units SQ AC-LUNCH 01/02/16 06/13/18 INSULIN LISPRO (HumaLOG) [humaLOG] 14 units SQ AC-SUPPER 01/02/16 06/13/18 Tacrolimus [Prograf] 4 mg PO QAM 07/26/16 06/13/18 Albuterol Inhaler [Ventolin Hfa 2 puff INHALATION RT-QID PRN 08/11/16 06/13/18 Inhaler] Albuterol Nebulized [Ventolin 2.5 mg INHALATION RT-QID PRN 08/11/16 06/13/18 Nebulized] Aspirin 81 mg PO DAILY 08/11/16 06/13/18 Atorvastatin Calcium [Lipitor] 10 mg PO HS 08/11/16 06/13/18 Carvedilol [Coreg*] 12.5 mg PO BID 08/11/16 06/13/18 INSULIN LISPRO (humaLOG) [humaLOG] 9 units SQ AC-BRKFST 08/11/16 06/13/[address] [Myfortic] 360 mg PO BID 08/11/16 06/13/18 Sodium Bicarbonate Tab 650 mg PO TID 08/11/16 06/13/18 amLODIPine [Norvasc] 10 mg PO DAILY 08/11/16 06/13/18 Ergocalciferol (Vitamin D2) 50,000 unit PO Q30D 08/25/17 06/13/18 [Vitamin D2] Insulin Glargine,Hum.rec.anlog 30 unit SQ HS 08/25/17 06/13/18 [Lantus Solostar] Losartan Potassium [Cozaar] 25 mg PO DAILY 08/25/17 06/13/18 predniSONE 5 mg PO DAILY 08/25/17 06/13/18 traMADol HCL [Ultram] 50 mg PO Q6HR PRN 08/25/17 06/13/18 Tacrolimus [Prograf] 3 mg PO HS 06/01/18 06/13/18 Famotidine [Pepcid] 20 mg PO DAILY 06/13/18 06/13/18 Linaclotide [Linzess] 145 mg PO DAILY 06/13/18 06/13/18 Allergies Allergy/AdvReac Type Severity Reaction Status Date / Time hydralazine [From Apresoline] Allergy Rash/Hives Verified 06/13/18 18:56 Iodinated Contrast- Oral and Allergy Unknown Verified 06/13/18 18:56 IV Dye meperidine [From Demerol] Allergy Anaphylaxis Verified 06/13/18 18:56 Review of Systems ROS Statement: Those systems with pertinent positive or pertinent negative responses have been documented in the HPI. ROS Other: All systems not noted in ROS Statement are negative. Past Medical History Past Medical History: Asthma, Diabetes Mellitus, Dialysis, Eye Disorder, Hyperlipidemia, Hypertension, Renal Disease, Skin Disorder Additional Past Medical History / Comment(s): KELOIDS, IBS "YEARS AGO",PREVIOUS HX OF DIALYSIS BUT THEN RECIEVED A RENAL TRANSPLANT. History of Any Multi-Drug Resistant Organisms: ESBL Date of last positivie culture/infection: 2011 approx(PREVIOUSLY CHARTED) MDRO Source:: peritoneal dialysis cath Past Surgical History: Cholecystectomy, Hysterectomy Additional Past Surgical History / Comment(s): hemodialysis shunt lt forearm, peritoneal dialysis insertion and removal- THEN RENAL TRANSPLANT 2-2015, EGD/ COLONOSCOPY, LT KNEE ARTHROSCOPY, EDUARDO CATARACTS, RT EYE SX TO REPAIR DETATCHED RETINA. Colonoscopy 2018 and this was her 3rd. Past Anesthesia/Blood Transfusion Reactions: No Reported Reaction Additional Past Anesthesia/Blood Transfusion Reaction / Comment(s): has had a hard time coming out of anesthesia Past Psychological History: No Psychological Hx Reported Smoking Status: Former smoker Past Alcohol Use History: None Reported Past Drug Use History: None Reported - Past Family History Mother History Unknown: Yes Father Additional Family Medical History / Comment(s): brain aneurysm General Exam - General Exam Comments Initial Comments: This is a well-developed obese female who is awake and lethargic General appearance: lethargic Head exam: Present: atraumatic, normocephalic, normal inspection Eye exam: Present: normal appearance, PERRL, EOMI. Absent: scleral icterus, conjunctival injection, periorbital swelling ENT exam: Present: mucous membranes dry Neck exam: Present: normal inspection, full ROM, other (No stridor JVD or bruits ). Absent: tenderness, meningismus, lymphadenopathy Respiratory exam: Present: decreased breath sounds Cardiovascular Exam: Present: normal rhythm, tachycardia GI/Abdominal exam: Present: soft, normal bowel sounds. Absent: distended, tenderness, guarding, rebound, rigid, pulsatile mass, hernia Rectal exam: Present: deferred Extremities exam: Present: normal inspection, full ROM, normal capillary refill. Absent: tenderness, pedal edema, joint swelling, calf tenderness Back exam: Present: normal inspection, full ROM, other (No open wounds). Absent : tenderness, CVA tenderness (R), CVA tenderness (L) Neurological exam: Present: alert, oriented X3, CN II-XII intact Psychiatric exam: Present: depressed, flat affect Skin exam: Present: warm, dry, intact, normal color. Absent: rash Course Vital Signs 06/13/18 06/13/18 06/13/18 16:59 17:01 17:30 Temperature 102.3 F H Pulse Rate 120 H 109 H Respiratory 22 18 Rate Blood Pressure 113/67 113/67 113/67 O2 Sat by Pulse 99 100 Oximetry 06/13/18 06/13/18 06/13/18 18:00 18:30 19:00 Temperature Pulse Rate 110 H 107 H 106 H Respiratory 18 18 17 Rate Blood Pressure 120/80 101/84 134/67 O2 Sat by Pulse 100 100 Oximetry 06/13/18 06/13/18 06/13/18 19:30 19:31 20:00 Temperature 99.0 F 99.0 F Pulse Rate 106 H 102 H Respiratory 20 20 Rate Blood Pressure 128/63 111/67 O2 Sat by Pulse 96 Oximetry 06/13/18 06/13/18 21:47 21:58 Temperature 98.9 F Pulse Rate 97 Respiratory 16 Rate Blood Pressure 135/73 O2 Sat by Pulse 98 Oximetry - Reevaluation(s) Reevaluation #1: 06/13/18 22:36 Reevaluation patient reveals that she is more awake and alert after IV fluids. I did discuss findings with the patient's family who were present. Demonstrate evidence of UTI with viral depletion also hypomagnesemia. Reevaluation #2: 06/13/18 22:42 Briefly with idealbodyweight EKG Findings - EKG Results: EKG: interpreted by ERMD, sinus rhythm (Sinus tachycardia rate 102. Interval 194 QRS duration 90 QT since QTC 370/42 low-voltage QRS nonspecific inferior changes) Medical Decision Making - Medical Decision Making I did reevaluate patient several other occasions she remains awake and alert after the initial IV fluid bolus IV antibiotics were given. I did have a long discussion with her and family members regarding the findings I did discuss case with Dr. Pierson. She'll be admitted for IV antibiotics and fluids nephrology will be consulted. - Lab Data Result diagrams: 06/13/18 18:19 06/13/18 17:01 Lab Results 06/13/18 06/13/18 06/13/18 Range/Units 16:59 17:01 17:01 WBC (3.8-10.6) k/uL RBC (3.80-5.40) m/uL Hgb (11.4-16.0) gm/dL Hct (34.0-46.0) % MCV (80.0-100.0) fL MCH (25.0-35.0) pg MCHC (31.0-37.0) g/dL RDW (11.5-15.5) % Plt Count (150-450) k/uL Neutrophils % (Manual) % Band Neutrophils % % Lymphocytes % (Manual) % Monocytes % (Manual) % Metamyelocytes % % Myelocytes % % Neutrophils # (Manual) (1.3-7.7) k/uL Lymphocytes # (Manual) (1.0-4.8) k/uL Monocytes # (Manual) (0-1.0) k/uL Metamyelocytes # (Man) (0) k/uL Myelocytes # (Manual) (0) k/uL Nucleated RBCs (0-0) /100 WBC Manual Slide Review Polychromasia Hypochromasia Anisocytosis (manual) Sodium 135 L (137-145) mmol/L Potassium 4.5 (3.5-5.1) mmol/L Chloride 105 (98-107) mmol/L Carbon Dioxide 20 L (22-30) mmol/L Anion Gap 10 mmol/L BUN 22 H (7-17) mg/dL Creatinine 1.50 H (0.52-1.04) mg/dL Est GFR (CKD-EPI)AfAm 41 (>60 ml/min/1.73 sqM) Est GFR (CKD-EPI)NonAf 36 (>60 ml/min/1.73 sqM) Glucose 357 H (74-99) mg/dL POC Glucose (mg/dL) 356 H (75-99) mg/dL POC Glu Soup Person ID Corinna Chou Lactic Ac Sepsis Rflx Plasma Lactic Acid David (0.7-2.0) mmol/L Calcium 9.8 (8.4-10.2) mg/dL Magnesium 1.0 L (1.6-2.3) mg/dL Total Bilirubin 0.7 (0.2-1.3) mg/dL AST 14 (14-36) U/L ALT 21 (9-52) U/L Alkaline Phosphatase 85 (38-126) U/L Ammonia (<30) umol/L Total Creatine Kinase 33 (30-135) U/L CK-MB (CK-2) <0.2 (0.0-2.4) ng/mL CK-MB (CK-2) Rel Index Troponin I <0.012 (0.000-0.034) ng/mL NT-Pro-B Natriuret Pep pg/mL Total Protein 5.6 L (6.3-8.2) g/dL Albumin 3.1 L (3.5-5.0) g/dL Amylase <30 L (30-110) U/L Lipase 13 L (23-300) U/L Urine Color Urine Appearance (Clear) Urine pH (5.0-8.0) Ur Specific [place] (1.001-1.035) Urine Protein (Negative) Urine Glucose (UA) (Negative) Urine Ketones (Negative) Urine Blood (Negative) Urine Nitrite (Negative) Urine Bilirubin (Negative) Urine Urobilinogen (<2.0) mg/dL Ur Leukocyte Esterase (Negative) Urine RBC (0-5) /hpf Urine WBC (0-5) /hpf Urine WBC Clumps (None) /hpf Ur Squamous Epith Cells (0-4) /hpf Urine Bacteria (None) /hpf 06/13/18 06/13/18 06/13/18 Range/Units 18:19 18:19 18:19 WBC 21.4 H (3.8-10.6) k/uL RBC 4.34 (3.80-5.40) m/uL Hgb 12.1 (11.4-16.0) gm/dL Hct 39.4 (34.0-46.0) % MCV 90.6 (80.0-100.0) fL MCH 27.8 (25.0-35.0) pg MCHC 30.7 L (31.0-37.0) g/dL RDW 13.6 (11.5-15.5) % Plt Count 195 (150-450) k/uL Neutrophils % (Manual) 70 % Band Neutrophils % 18 % Lymphocytes % (Manual) 8 % Monocytes % (Manual) 3 % Metamyelocytes % 2 % Myelocytes % 1 % Neutrophils # (Manual) 18.80 H (1.3-7.7) k/uL Lymphocytes # (Manual) 1.71 (1.0-4.8) k/uL Monocytes # (Manual) 0.64 (0-1.0) k/uL Metamyelocytes # (Man) 0.43 H (0) k/uL Myelocytes # (Manual) 0.21 H (0) k/uL Nucleated RBCs 0 (0-0) /100 WBC Manual Slide Review Performed Polychromasia Present Hypochromasia Marked Anisocytosis (manual) Present Sodium (137-145) mmol/L Potassium (3.5-5.1) mmol/L Chloride (98-107) mmol/L Carbon Dioxide (22-30) mmol/L Anion Gap mmol/L BUN (7-17) mg/dL Creatinine (0.52-1.04) mg/dL Est GFR (CKD-EPI)AfAm (>60 ml/min/1.73 sqM) Est GFR (CKD-EPI)NonAf (>60 ml/min/1.73 sqM) Glucose (74-99) mg/dL POC Glucose (mg/dL) (75-99) mg/dL POC Glu Soup Person ID Lactic Ac Sepsis Rflx Plasma Lactic Acid David 2.7 H* (0.7-2.0) mmol/L Calcium (8.4-10.2) mg/dL Magnesium (1.6-2.3) mg/dL Total Bilirubin (0.2-1.3) mg/dL AST (14-36) U/L ALT (9-52) U/L Alkaline Phosphatase (38-126) U/L Ammonia <9 (<30) umol/L Total Creatine Kinase (30-135) U/L CK-MB (CK-2) (0.0-2.4) ng/mL CK-MB (CK-2) Rel Index Troponin I (0.000-0.034) ng/mL NT-Pro-B Natriuret Pep 3340 pg/mL Total Protein (6.3-8.2) g/dL Albumin (3.5-5.0) g/dL Amylase (30-110) U/L Lipase (23-300) U/L Urine Color Urine Appearance (Clear) Urine pH (5.0-8.0) Ur Specific [place] (1.001-1.035) Urine Protein (Negative) Urine Glucose (UA) (Negative) Urine Ketones (Negative) Urine Blood (Negative) Urine Nitrite (Negative) Urine Bilirubin (Negative) Urine Urobilinogen (<2.0) mg/dL Ur Leukocyte Esterase (Negative) Urine RBC (0-5) /hpf Urine WBC (0-5) /hpf Urine WBC Clumps (None) /hpf Ur Squamous Epith Cells (0-4) /hpf Urine Bacteria (None) /hpf 06/13/18 06/13/18 06/13/18 Range/Units 19:21 19:30 19:35 WBC (3.8-10.6) k/uL RBC (3.80-5.40) m/uL Hgb (11.4-16.0) gm/dL Hct (34.0-46.0) % MCV (80.0-100.0) fL MCH (25.0-35.0) pg MCHC (31.0-37.0) g/dL RDW (11.5-15.5) % Plt Count (150-450) k/uL Neutrophils % (Manual) % Band Neutrophils % % Lymphocytes % (Manual) % Monocytes % (Manual) % Metamyelocytes % % Myelocytes % % Neutrophils # (Manual) (1.3-7.7) k/uL Lymphocytes # (Manual) (1.0-4.8) k/uL Monocytes # (Manual) (0-1.0) k/uL Metamyelocytes # (Man) (0) k/uL Myelocytes # (Manual) (0) k/uL Nucleated RBCs (0-0) /100 WBC Manual Slide Review Polychromasia Hypochromasia Anisocytosis (manual) Sodium (137-145) mmol/L Potassium (3.5-5.1) mmol/L Chloride (98-107) mmol/L Carbon Dioxide (22-30) mmol/L Anion Gap mmol/L BUN (7-17) mg/dL Creatinine (0.52-1.04) mg/dL Est GFR (CKD-EPI)AfAm (>60 ml/min/1.73 sqM) Est GFR (CKD-EPI)NonAf (>60 ml/min/1.73 sqM) Glucose (74-99) mg/dL POC Glucose (mg/dL) 339 H (75-99) mg/dL POC Glu Soup Person ID Fernando Stark Lactic Ac Sepsis Rflx Y Plasma Lactic Acid David (0.7-2.0) mmol/L Calcium (8.4-10.2) mg/dL Magnesium (1.6-2.3) mg/dL Total Bilirubin (0.2-1.3) mg/dL AST (14-36) U/L ALT (9-52) U/L Alkaline Phosphatase (38-126) U/L Ammonia (<30) umol/L Total Creatine Kinase (30-135) U/L CK-MB (CK-2) (0.0-2.4) ng/mL CK-MB (CK-2) Rel Index Troponin I (0.000-0.034) ng/mL NT-Pro-B Natriuret Pep pg/mL Total Protein (6.3-8.2) g/dL Albumin (3.5-5.0) g/dL Amylase (30-110) U/L Lipase (23-300) U/L Urine Color Yellow Urine Appearance Turbid H (Clear) Urine pH 6.0 (5.0-8.0) Ur Specific [place] 1.011 (1.001-1.035) Urine Protein 3+ H (Negative) Urine Glucose (UA) 4+ H (Negative) Urine Ketones Negative (Negative) Urine Blood Moderate H (Negative) Urine Nitrite Negative (Negative) Urine Bilirubin Negative (Negative) Urine Urobilinogen <2.0 (<2.0) mg/dL Ur Leukocyte Esterase Large H (Negative) Urine RBC 31 H (0-5) /hpf Urine WBC >182 H (0-5) /hpf Urine WBC Clumps Many H (None) /hpf Ur Squamous Epith Cells 3 (0-4) /hpf Urine Bacteria Many H (None) /hpf 06/13/18 Range/Units 21:04 WBC (3.8-10.6) k/uL RBC (3.80-5.40) m/uL Hgb (11.4-16.0) gm/dL Hct (34.0-46.0) % MCV (80.0-100.0) fL MCH (25.0-35.0) pg MCHC (31.0-37.0) g/dL RDW (11.5-15.5) % Plt Count (150-450) k/uL Neutrophils % (Manual) % Band Neutrophils % % Lymphocytes % (Manual) % Monocytes % (Manual) % Metamyelocytes % % Myelocytes % % Neutrophils # (Manual) (1.3-7.7) k/uL Lymphocytes # (Manual) (1.0-4.8) k/uL Monocytes # (Manual) (0-1.0) k/uL Metamyelocytes # (Man) (0) k/uL Myelocytes # (Manual) (0) k/uL Nucleated RBCs (0-0) /100 WBC Manual Slide Review Polychromasia Hypochromasia Anisocytosis (manual) Sodium (137-145) mmol/L Potassium (3.5-5.1) mmol/L Chloride (98-107) mmol/L Carbon Dioxide (22-30) mmol/L Anion Gap mmol/L BUN (7-17) mg/dL Creatinine (0.52-1.04) mg/dL Est GFR (CKD-EPI)AfAm (>60 ml/min/1.73 sqM) Est GFR (CKD-EPI)NonAf (>60 ml/min/1.73 sqM) Glucose (74-99) mg/dL POC Glucose (mg/dL) 340 H (75-99) mg/dL POC Glu Soup Person Fernando Gomez Lactic Ac Sepsis Rflx Plasma Lactic Acid David (0.7-2.0) mmol/L Calcium (8.4-10.2) mg/dL Magnesium (1.6-2.3) mg/dL Total Bilirubin (0.2-1.3) mg/dL AST (14-36) U/L ALT (9-52) U/L Alkaline Phosphatase (38-126) U/L Ammonia (<30) umol/L Total Creatine Kinase (30-135) U/L CK-MB (CK-2) (0.0-2.4) ng/mL CK-MB (CK-2) Rel Index Troponin I (0.000-0.034) ng/mL NT-Pro-B Natriuret Pep pg/mL Total Protein (6.3-8.2) g/dL Albumin (3.5-5.0) g/dL Amylase (30-110) U/L Lipase (23-300) U/L Urine Color Urine Appearance (Clear) Urine pH (5.0-8.0) Ur Specific [place] (1.001-1.035) Urine Protein (Negative) Urine Glucose (UA) (Negative) Urine Ketones (Negative) Urine Blood (Negative) Urine Nitrite (Negative) Urine Bilirubin (Negative) Urine Urobilinogen (<2.0) mg/dL Ur Leukocyte Esterase (Negative) Urine RBC (0-5) /hpf Urine WBC (0-5) /hpf Urine WBC Clumps (None) /hpf Ur Squamous Epith Cells (0-4) /hpf Urine Bacteria (None) /hpf - Radiology Data Radiology results: report reviewed (I did review the imaging and report no acute findings.), image reviewed Critical Care Time Critical Care Time: Yes Critical Care Time: 35 minutes of critical care time which includes initial presentation with history physical labs x-rays several reevaluation patient response to therapy and several discussed with patient and family members. Review of old charting that was available discussion with the admitting physician admission orders and documentation of the above Disposition Clinical Impression: Urinary tract infection, Lactic acidosis, Hyperglycemia, Dehydration, Febrile illness, acute, Renal insufficiency syndrome Disposition: ADMITTED IP TO THIS HOSP Condition: Serious Referrals: Raza Purcell MD [Primary Care Provider] - 1-2 days
--- NOTE | 2018-06-13 17:51 | XR ---
EXAMINATION: XR chest 2V DATE AND TIME: 06/13/2018 5:42 PM CLINICAL INDICATION: PHH; cough TECHNIQUE: Departmental protocol COMPARISON: 08/25/2017 FINDINGS: The lungs are clear. The pleural spaces are negative. The cardiac silhouette is not enlarged. The remainder of the mediastinal silhouette is unremarkable. The skeletal structures and soft tissues are negative for acute findings. IMPRESSION: NO ACUTE PROCESS.
[2018-06-13 18:19] LABS: ALT 21 U/L (9-52); AST 14 U/L (14-36); Albumin 3.1 g/dL (3.5-5.0); Alkaline Phosphatase 85 U/L (38-126); Amylase <30 U/L (30-110); Anion Gap 10 mmol/L; Blood Urea Nitrogen 22 mg/dL (7-17); Calcium 9.8 mg/dL (8.4-10.2); Carbon Dioxide 20 mmol/L (22-30); Chloride 105 mmol/L (98-107); Glucose 357 mg/dL (74-99); Lipase 13 U/L (23-300); Potassium 4.5 mmol/L (3.5-5.1); Sodium 135 mmol/L (137-145); Total Bilirubin 0.7 mg/dL (0.2-1.3); Total Protein 5.6 g/dL (6.3-8.2)
[2018-06-13 18:31] LABS: Creatine Kinase 33 U/L (30-135)
[2018-06-13 18:41] LABS: Creatine Kinase MB <0.2 ng/mL (0.0-2.4)
[2018-06-13 19:03] LABS: Troponin I <0.012 ng/mL (0.000-0.034)
[2018-06-13 19:08] LABS: HCT 39.4 % (34.0-46.0); HGB 12.1 gm/dL (11.4-16.0); Hypochromasia Marked; MCH 27.8 pg (25.0-35.0); MCHC 30.7 g/dL (31.0-37.0); MCV 90.6 fL (80.0-100.0); Mean Platelet Volume 9.5; Platelet Count 195 k/uL (150-450); RBC 4.34 m/uL (3.80-5.40); RDW 13.6 % (11.5-15.5); WBC 21.4 k/uL (3.8-10.6)
[2018-06-13 19:13] LABS: Ammonia <9 umol/L (<30)
[2018-06-13 19:23] LABS: Glucose,Whole Blood 339 mg/dL (75-99)
[2018-06-13] MEDS ORDERED: MAGNESIUM SULFATE-D5W PMX 1 GM in DEXTROSE/WATER 1 100ML.BAG IVPB ONE (19:25)
[2018-06-13] MEDS ORDERED: INSULIN REGULAR 100 UNIT/ML VIAL IV ONE (19:26)
[2018-06-13 19:35] LABS: Lactic Acid, Venous 2.7 mmol/L (0.7-2.0)
[2018-06-13 19:47] LABS: Appearance,Urine Turbid (Clear); Bacteria,Urine Many /hpf; Bilirubin,Urine Negative (Negative); Blood,Urine Moderate (Negative); Color,Urine Yellow; Glucose,Urine (UA) 4+ (Negative); Ketones,Urine Negative (Negative); Leukocyte Esterase,Urine Large (Negative); Nitrite,Urine Negative (Negative); Protein,Urine 3+ (Negative); RBC,Urine 31 /hpf (0-5); Specific Gravity,Urine 1.011 (1.001-1.035); Squamous Epithelial Cell,Urine 3 /hpf (0-4); Urobilinogen,Urine <2.0 mg/dL (<2.0)
[2018-06-13 19:54] LABS: Band Neutrophils % 18 %; Lymphocytes # (M) 1.71 k/uL (1.0-4.8); Metamyelocytes # (M) 0.43 k/uL (0); Metamyelocytes % 2 %; Monocytes # (M) 0.64 k/uL (0-1.0); Myelocytes # (M) 0.21 k/uL (0); Myelocytes % 1 %; Neutrophils % (M) 70 %; Nucleated Red Blood Cells 0 /100 WBC (0-0); Total Cells Counted 200
[2018-06-13 19:55] LABS: Anisocytosis (M) Present; Polychromasia Present
[2018-06-13 21:05] LABS: Glucose,Whole Blood 340 mg/dL (75-99)
[2018-06-13] MEDS ORDERED: NALOXONE 0.4 MG/ML 1 ML VIAL IV PRN (22:42)
[2018-06-13] MEDS ORDERED: ERGOCALCIFEROL 50,000 UNIT CAP PO SCH (22:45)
[2018-06-14 03:13] LABS: Glucose,Whole Blood 224 mg/dL (75-99)
[2018-06-14 05:40] LABS: Hemoglobin A1C 8.5 % (4.0-6.0)
[2018-06-14 07:41] LABS: Glucose,Whole Blood 282 mg/dL (75-99)
[2018-06-14 07:54] VITALS: BMI 37.7
[2018-06-14] MEDS: INSULIN ASPART 100 UNIT/ML 1 ML 10 ML VIAL SQ SCH ×3 (08:01→18:52)
[2018-06-14] MEDS: SODIUM BICARBONATE TAB 650 MG TAB PO SCH ×3 (08:01→21:40)
[2018-06-14] MEDS: FAMOTIDINE 20 MG TAB PO SCH (08:02)
[2018-06-14] MEDS: CARVEDILOL 12.5 MG TAB PO SCH ×2 (08:02→18:51)
[2018-06-14] MEDS: ASPIRIN 81 MG PO SCH (08:02)
[2018-06-14] MEDS ORDERED: amLODIPine 10 MG TAB PO SCH (09:00)
[2018-06-14] MEDS ORDERED: LOSARTAN 25 MG TAB PO SCH (09:00)
[2018-06-14] MEDS ORDERED: predniSONE 5 MG TAB PO SCH (09:00)
[2018-06-14] MEDS: traMADol 50 MG TAB PO PRN (10:29)
[2018-06-14] MEDS: LINACLOTIDE 145 MG PO SCH (10:37)
[2018-06-14 11:34] LABS: Basophils % (A) 0 %; Eosinophils # (A) 0.1 k/uL (0-0.7); Eosinophils % (A) 0 %; HCT 35.7 % (34.0-46.0); HGB 10.9 gm/dL (11.4-16.0); Hypochromasia Marked; Lymphocytes # (A) 0.7 k/uL (1.0-4.8); Lymphocytes % (A) 3 %; MCH 27.8 pg (25.0-35.0); MCHC 30.4 g/dL (31.0-37.0); MCV 91.3 fL (80.0-100.0); Mean Platelet Volume 8.9; Monocytes # (A) 0.8 k/uL (0-1.0); Monocytes % (A) 4 %; Neutrophils # (A) 20.7 k/uL (1.3-7.7); Neutrophils % (A) 92 %; Platelet Count 175 k/uL (150-450); RBC 3.91 m/uL (3.80-5.40); RDW 13.8 % (11.5-15.5); WBC 22.5 k/uL (3.8-10.6)
[2018-06-14 11:36] LABS: Calcium 8.9 mg/dL (8.4-10.2); Magnesium 1.2 mg/dL (1.6-2.3); Potassium 4.3 mmol/L (3.5-5.1)
[2018-06-14 11:38] LABS: Glucose,Whole Blood 211 mg/dL (75-99)
[2018-06-14] MEDS ORDERED: SODIUM CHLORIDE 0.9% 2,000 ML IV ONE (12:52)
[2018-06-14] MEDS ORDERED: cefTRIAXone 2,000 MG VIAL IM SCH (13:00)
[2018-06-14] MEDS ORDERED: Magnesium Replacement Protocol 1 EACH MISC MISCELLANE PRN (13:20)
--- NOTE | 2018-06-14 13:28 | CONS ---
CONSULTATION REASON FOR CONSULT: Renal failure, kidney transplant history. HISTORY OF PRESENT ILLNESS: Patient is a 67-year-old female with history of renal failure, end- stage renal disease. Patient is currently status post kidney transplant in July of 2011, it was a donor. Baseline creatinine has been about 1 to 0.9 mg/dL. Patient was admitted to the hospital with complaints of mental status changes. She also had some abdominal pain. Blood sugar was elevated to 541. The patient also had a temp of 102.3 degrees. She had decreased oral intake. She had some nausea and abdominal pain. There is no history of diarrhea or vomiting. No cough. No chest pains. No significant urinary symptoms. Serum creatinine was 1.5 yesterday, today it is at 2.37. The patient's blood pressure has been slightly on the lower side with systolic 101 at lowest. Currently, she is maintained on IV fluids. The patient has been voiding. The patient has had urine output. She currently has an indwelling Walsh catheter. There is no history of use of NSAIDs. The patient was on losartan at home. PAST MEDICAL HISTORY: Significant for a asthma, type 2 diabetes, end-stage renal disease and kidney transplant, hyperlipidemia, history of nephrolithiasis, renal stones with recent admission, GI bleed. PAST SURGICAL HISTORY: Cholecystectomy, hysterectomy, kidney transplant surgery for keloid, AV fistula PD catheter placement and removal, EGD, colonoscopy, left knee arthroscopy, cataract surgery, colonoscopy. SOCIAL HISTORY: Negative for smoking, drug abuse or alcohol abuse. Patient is a former smoker. REVIEW OF SYSTEMS: As per HPI. Other systems negative. MEDICATIONS: Medications at home included insulin, Prograf, aspirin, Lipitor, Coreg, Myfortic, sodium bicarb, Norvasc, vitamin D2, Cozaar, prednisone, Ultram, Pepcid, Linzess. ALLERGIES: Allergies include DEMEROL, rash and hives from HYDRALAZINE, anaphylaxis from DEMEROL and IV CONTRAST reaction was not noted. PHYSICAL EXAMINATION: Patient is currently comfortable. She is awake. She is not in any acute distress. However, she states she feels short of breath. She is quite anxious and is crying and wants to go home. Blood pressure was 135/73 last night. Heart rate was 97 per minute. Patient had a temperature of 102.3 initially. Currently, she is afebrile. EXAMINATION OF THE HEART: S1, S2. EXAMINATION OF THE LUNGS: Bilateral breath sounds are heard. Abdomen is soft, nontender. Examination lower extremities shows no evidence of edema. [employer] exam is grossly intact. LABS: Labs show sodium 138, potassium 4.3, chloride 110, CO2 is 18, BUN 28, serum creatinine 2.37, hemoglobin 10.9 g/dL. UA shows WBCs more than 182, protein 3+, glucose 4+. Chest x-ray from yesterday shows no acute process. ASSESSMENT: 1. Acute kidney injury secondary to underlying infection, hypovolemia and hypoperfusion. I will discontinue the Cozaar for now. Continue with IV fluids and continue with the Walsh catheter. Avoid any other nephrotoxic agents. 2. Urinary tract infection, Rocephin. The patient will need to continue with antibiotics. 3. Status post -donor transplant in 2011. Continue with the prednisone, Myfortic, and the Prograf. We will check a Prograf level as well. 4. Metabolic acidosis, maintained on oral sodium bicarb. 5. Hyperglycemia, currently improved. PLAN: Continue with IV antibiotics. Continue IV fluids. Discontinue Cozaar. Repeat lab in a.m. Avoid any other nephrotoxic medications and check a tacrolimus levels. Thank you for this consultation. We will continue to follow the patient with you during her hospitalization. MMODL / IJN: [id number] /
[2018-06-14] MEDS ORDERED: cefTRIAXone 2,000 MG in SODIUM CHLORIDE 0.9% 100 ML IVPB SCH (13:30)
--- NOTE | 2018-06-14 13:57 | P.CONS ---
History of Present Illness - Reason for Consult Consult date: 06/14/18 Positive blood culture - History of Present Illness This is a 67-year-old -[place] female with past history significant for end-stage renal disease on previous hemodialysis, kidney transplant in 2011 from donor. Patient presented to [facility] emergency center on June 01 for flulike symptoms and body aches and right- sided abdominal pain and flank pain. She also had some nausea and vomiting and elevated blood sugar. She was afebrile, white count 11.5, BUN 15 creatinine 1.15. CAT scan of the abdomen and pelvis without contrast showed sigmoid diverticulosis without diverticulitis. Atrophic bilateral tunica-biloxi kidneys with right lower quadrant transplant. There is a punctuate 1 mm density along the distal transplant ureter that could represent small surgical material or punctate calculus. There is mild ureteral prominence but no ari hydronephrosis. Few prominent fluid-filled small bowel loops in the left side of the upper to mid abdomen could represent regional enteritis. Moderate bilateral hip osteoarthritis advanced degenerative changes throughout the lumbar spine. Patient was giving morphine, Zofran and was discharged home on Tylenol No. 3. Patient states that she was not feeling any better after she left the hospital. She continued to have abdominal pain, body aches. No nausea or vomiting. She does state she had decreased appetite and has not been eating or drinking very much. She is complaining of chills and dysuria. She states she's had change in the color of her urine to a darker color and decreased output She came back into [facility] emergency center for evaluation on June 13 is found to have a white count of 21.4, BUN 22 and creatinine 1.5, lactic acid 2.7 and repeat 4.4. Temperature 102.3. Urinalysis was turbid, blood moderate, leukoesterase large, WBC greater than 182 , WBC clumps many, bacteria many. C. difficile toxin was negative. Chest x- ray shows no acute process. Patient received 2 L of IV fluid followed by another liter 150 mL per hour, magnesium was replaced, she received regular insulin and was given one dose of Rocephin and admitted to the [facility] floor. A- Team was called on her this morning due to mental status changes and low blood pressure of 95/54. Dr. Magaña is on consult and has ordered another 2 L bolus. Patient has had minimal urine output and Walsh catheter has been placed. Blood culture is gram-negative bacilli, urine culture in progress. No previous urine cultures/blood cultures are available for review. History is obtained from the patient and confirmed by patient's nurse and family members as patient is not reliable historian at this time. Review of Systems All systems: negative Constitutional: Reports anorexia, Reports chills, Reports fatigue, Reports fever , Reports lethargy, Reports malaise, Reports poor appetite, Reports weakness Eyes: denies blurred vision, denies pain Ears, nose, mouth and throat: Denies dental pain, Denies dysphagia, Denies headache, Denies mouth pain, Denies sore throat, Denies vertigo Cardiovascular: Denies chest pain, Denies dyspnea on exertion, Denies edema, Denies leg edema, Denies lightheadedness, Denies palpitations, Denies shortness of breath, Denies syncope Respiratory: Denies cough, Denies cough with sputum, Denies dyspnea, Denies excessive sputum, Denies hemoptysis, Denies home oxygen, Denies wheezing Gastrointestinal: Reports abdominal pain, Reports loss of appetite, Denies diarrhea, Denies nausea, Denies vomiting Genitourinary: Reports dysuria, Reports flank pain, Reports urgency, Denies hematuria Musculoskeletal: Reports muscle weakness, Denies frequent falls, Denies myalgias Integumentary: Denies pruritus, Denies rash, Denies wounds Neurological: Reports change in mentation, Reports confusion, Denies head injury , Denies numbness, Denies seizures, Denies weakness Psychiatric: Denies anxiety, Denies depression Endocrine: Denies fatigue, Denies weight change Past Medical History Past Medical History: Asthma, Diabetes Mellitus, Dialysis, Eye Disorder, Hyperlipidemia, Hypertension, Renal Disease, Skin Disorder Additional Past Medical History / Comment(s): KELOIDS, IBS "YEARS AGO",PREVIOUS HX OF DIALYSIS BUT THEN RECIEVED A RENAL TRANSPLANT. History of Any Multi-Drug Resistant Organisms: ESBL Year Discovered:: 2011 approx(PREVIOUSLY CHARTED) MDRO Source:: peritoneal dialysis cath Past Surgical History: Cholecystectomy, Hysterectomy Additional Past Surgical History / Comment(s): hemodialysis shunt lt forearm, peritoneal dialysis insertion and removal- THEN RENAL TRANSPLANT 2-2015, EGD/ COLONOSCOPY, LT KNEE ARTHROSCOPY, EDUARDO CATARACTS, RT EYE SX TO REPAIR DETATCHED RETINA. Colonoscopy 2018 and this was her 3rd. Past Anesthesia/Blood Transfusion Reactions: No Reported Reaction Additional Past Anesthesia/Blood Transfusion Reaction / Comm: has had a hard time coming out of anesthesia Past Psychological History: No Psychological Hx Reported Smoking Status: Former smoker Past Alcohol Use History: None Reported Additional Past Alcohol Use History / Comment(s): started smoking 1979,quit smoking 1989, smoked 3 packs per week. No marijuana or illicit drug use, no alcohol use. Patient lives at home with her . There are no pets in the home. No recent travel but did travel to [place] last year. Past Drug Use History: None Reported - Past Family History Mother History Unknown: Yes Father Additional Family Medical History / Comment(s): brain aneurysm Medications and Allergies Home Medications Medication Instructions Recorded Confirmed Type INSULIN LISPRO (HumaLOG) [humaLOG] 12 units SQ AC-LUNCH 01/02/16 06/13/18 History INSULIN LISPRO (HumaLOG) [humaLOG] 14 units SQ AC-SUPPER 01/02/16 06/13/18 History Tacrolimus [Prograf] 4 mg PO QAM 07/26/16 06/13/18 History Albuterol Inhaler [Ventolin Hfa 2 puff INHALATION RT-QID PRN 08/11/16 06/13/18 History Inhaler] Albuterol Nebulized [Ventolin 2.5 mg INHALATION RT-QID PRN 08/11/16 06/13/18 History Nebulized] Aspirin 81 mg PO DAILY 08/11/16 06/13/18 History Atorvastatin Calcium [Lipitor] 10 mg PO HS 08/11/16 06/13/18 History Carvedilol [Coreg*] 12.5 mg PO BID 08/11/16 06/13/18 History INSULIN LISPRO (humaLOG) [humaLOG] 9 units SQ AC-BRKFST 08/11/16 06/13/[address] [Myfortic] 360 mg PO BID 08/11/16 06/13/18 History Sodium Bicarbonate Tab 650 mg PO TID 08/11/16 06/13/18 History amLODIPine [Norvasc] 10 mg PO DAILY 08/11/16 06/13/18 History Ergocalciferol (Vitamin D2) 50,000 unit PO Q30D 08/25/17 06/13/18 History [Vitamin D2] Insulin Glargine,Hum.rec.anlog 30 unit SQ HS 08/25/17 06/13/18 History [Lantus Solostar] Losartan Potassium [Cozaar] 25 mg PO DAILY 08/25/17 06/13/18 History predniSONE 5 mg PO DAILY 08/25/17 06/13/18 History traMADol HCL [Ultram] 50 mg PO Q6HR PRN 08/25/17 06/13/18 History Tacrolimus [Prograf] 3 mg PO HS 06/01/18 06/13/18 History Famotidine [Pepcid] 20 mg PO DAILY 06/13/18 06/13/18 History Linaclotide [Linzess] 145 mg PO DAILY 06/13/18 06/13/18 History Allergies Allergy/AdvReac Type Severity Reaction Status Date / Time hydralazine [From Apresoline] Allergy Rash/Hives Verified 06/13/18 18:56 Iodinated Contrast- Oral and Allergy Unknown Verified 06/13/18 18:56 IV Dye meperidine [From Demerol] Allergy Anaphylaxis Verified 06/13/18 18:56 Physical Exam Vitals: Vital Signs Temp Pulse Pulse Resp BP BP Pulse Ox 06/14/18 13:02 104/59 06/14/18 11:00 99.7 F H 87 20 96/54 94 L 06/14/18 07:40 99.8 F H 100 20 118/74 98 06/13/18 21:58 98.9 F 06/13/18 21:47 97 16 135/73 98 06/13/18 20:00 99.0 F 102 H 20 111/67 96 06/13/18 19:31 99.0 F 06/13/18 19:30 106 H 20 128/63 06/13/18 19:00 106 H 17 134/67 06/13/18 18:30 107 H 18 101/84 100 06/13/18 18:00 110 H 18 120/80 100 06/13/18 17:30 109 H 18 113/67 100 06/13/18 17:01 113/67 06/13/18 16:59 102.3 F H 120 H 22 113/67 99 Intake and Output 06/13/18 06/14/18 06/14/18 22:59 06:59 14:59 Intake Total 1150 Output Total 200 200 Balance -200 950 Intake: Intake, IV Titration 1150 Amount Sodium Chloride 0.9% 1, 1050 000 ml @ 150 mls/hr IV . Q6H40M STA Rx#:[id number] cefTRIAXone 1,000 mg In 100 Sodium Chloride 0.9% 50 ml @ 100 mls/hr IVPB ONCE STA Rx#:[id number] Output: Urine 200 200 Uretheral (Walsh) 200 200 Other: Voiding Method Indwelling Catheter Weight 93.5 kg 93.5 kg Gen: This is a 67-year-old obese -[place] female. She is resting in bed. Patient is very anxious and somewhat confused during examination. HEENT: Head is atraumatic, normocephalic. Pupils equal, round. Sclerae is anicteric. NECK: Supple. No JVD. No lymphadenopathy. No thyromegaly. LUNGS: Scattered expiratory wheeze, tachypneic. No intercostal retractions. HEART: Regular rate and rhythm. No murmur. ABDOMEN: Soft. Bowel sounds are present. No masses. No tenderness. Right- sided abdominal scar noted. EXTREMITIES: No pedal edema. No calf tenderness. Dorsalis pedis +2 bilaterally. NEUROLOGICAL: Patient is awake, alert and oriented x2. Cranial nerves 2 through 12 are grossly intact. Results Results: Laboratory Results WBC 22.5 k/uL (3.8-10.6) H 06/14/18 11:13 RBC 3.91 m/uL (3.80-5.40) 06/14/18 11:13 Hgb 10.9 gm/dL (11.4-16.0) L 06/14/18 11:13 Hct 35.7 % (34.0-46.0) 06/14/18 11:13 MCV 91.3 fL (80.0-100.0) 06/14/18 11:13 MCH 27.8 pg (25.0-35.0) 06/14/18 11:13 MCHC 30.4 g/dL (31.0-37.0) L 06/14/18 11:13 RDW 13.8 % (11.5-15.5) 06/14/18 11:13 Plt Count 175 k/uL (150-450) 06/14/18 11:13 Neutrophils % 92 % 06/14/18 11:13 Neutrophils % (Manual) 70 % 06/13/18 18:19 Band Neutrophils % 18 % 06/13/18 18:19 Lymphocytes % 3 % 06/14/18 11:13 Lymphocytes % (Manual) 8 % 06/13/18 18:19 Monocytes % 4 % 06/14/18 11:13 Monocytes % (Manual) 3 % 06/13/18 18:19 Eosinophils % 0 % 06/14/18 11:13 Basophils % 0 % 06/14/18 11:13 Metamyelocytes % 2 % 06/13/18 18:19 Myelocytes % 1 % 06/13/18 18:19 Neutrophils # 20.7 k/uL (1.3-7.7) H 06/14/18 11:13 Neutrophils # (Manual) 18.80 k/uL (1.3-7.7) H 06/13/18 18:19 Lymphocytes # 0.7 k/uL (1.0-4.8) L 06/14/18 11:13 Lymphocytes # (Manual) 1.71 k/uL (1.0-4.8) 06/13/18 18:19 Monocytes # 0.8 k/uL (0-1.0) 06/14/18 11:13 Monocytes # (Manual) 0.64 k/uL (0-1.0) 06/13/18 18:19 Eosinophils # 0.1 k/uL (0-0.7) 06/14/18 11:13 Basophils # 0.0 k/uL (0-0.2) 06/14/18 11:13 Metamyelocytes # (Man) 0.43 k/uL (0) H 06/13/18 18:19 Myelocytes # (Manual) 0.21 k/uL (0) H 06/13/18 18:19 Nucleated RBCs 0 /100 WBC (0-0) 06/13/18 18:19 Manual Slide Review Performed 06/13/18 18:19 Polychromasia Present 06/13/18 18:19 Hypochromasia Marked 06/14/18 11:13 Anisocytosis (manual) Present 06/13/18 18:19 Sodium 138 mmol/L (137-145) 06/14/18 11:13 Potassium 4.3 mmol/L (3.5-5.1) 06/14/18 11:13 Chloride 110 mmol/L (98-107) H 06/14/18 11:13 Carbon Dioxide 18 mmol/L (22-30) L 06/14/18 11:13 Anion Gap 10 mmol/L 06/14/18 11:13 BUN 28 mg/dL (7-17) H 06/14/18 11:13 Creatinine 2.37 mg/dL (0.52-1.04) H 06/14/18 11:13 Est GFR (CKD-EPI)AfAm 24 (>60 ml/min/1.73 sqM) 06/14/18 11:13 Est GFR (CKD-EPI)NonAf 21 (>60 ml/min/1.73 sqM) 06/14/18 11:13 Glucose 195 mg/dL (74-99) H 06/14/18 11:13 POC Glucose (mg/dL) 211 mg/dL (75-99) H 06/14/18 11:26 POC Glu [place] ID Sami Vazquez 06/14/18 11:[address] Glu mg/dL 197 06/13/18 18:19 Hemoglobin A1c 8.5 % (4.0-6.0) H 06/13/18 18:19 Lactic Ac Sepsis Rflx Y 06/13/18 19:35 Plasma Lactic Acid David 4.4 mmol/L (0.7-2.0) H* 06/14/18 11:13 Calcium 8.9 mg/dL (8.4-10.2) 06/14/18 11:13 Magnesium 1.2 mg/dL (1.6-2.3) L 06/14/18 11:13 Total Bilirubin 0.7 mg/dL (0.2-1.3) 06/13/18 17:01 AST 14 U/L (14-36) 06/13/18 17:01 ALT 21 U/L (9-52) 06/13/18 17:01 Alkaline Phosphatase 85 U/L (38-126) 06/13/18 17:01 Ammonia <9 umol/L (<30) 06/13/18 18:19 Total Creatine Kinase 33 U/L (30-135) 06/13/18 17:01 CK-MB (CK-2) <0.2 ng/mL (0.0-2.4) 06/13/18 17:01 CK-MB (CK-2) Rel Index 06/13/18 17:01 Troponin I <0.012 ng/mL (0.000-0.034) 06/13/18 17:01 NT-Pro-B Natriuret Pep 3340 pg/mL 06/13/18 18:19 Total Protein 5.6 g/dL (6.3-8.2) L 06/13/18 17:01 Albumin 3.1 g/dL (3.5-5.0) L 06/13/18 17:01 Amylase <30 U/L (30-110) L 06/13/18 17:01 Lipase 13 U/L (23-300) L 06/13/18 17:01 Urine Color Yellow 06/13/18 19:30 Urine Appearance Turbid (Clear) H 06/13/18 19:30 Urine pH 6.0 (5.0-8.0) 06/13/18 19:30 Ur Specific [place] 1.011 (1.001-1.035) 06/13/18 19:30 Urine Protein 3+ (Negative) H 06/13/18 19:30 Urine Glucose (UA) 4+ (Negative) H 06/13/18 19:30 Urine Ketones Negative (Negative) 06/13/18 19:30 Urine Blood Moderate (Negative) H 06/13/18 19:30 Urine Nitrite Negative (Negative) 06/13/18 19:30 Urine Bilirubin Negative (Negative) 06/13/18 19:30 Urine Urobilinogen <2.0 mg/dL (<2.0) 06/13/18 19:30 Ur Leukocyte Esterase Large (Negative) H 06/13/18 19:30 Urine RBC 31 /hpf (0-5) H 06/13/18 19:30 Urine WBC >182 /hpf (0-5) H 06/13/18 19:30 Urine WBC Clumps Many /hpf (None) H 06/13/18 19:30 Ur Squamous Epith Cells 3 /hpf (0-4) 06/13/18 19:30 Urine Bacteria Many /hpf (None) H 06/13/18 19:30 C. difficile (EIA) Intrp Negative (Negative) 06/14/18 03:45 CBC & Chem 7: 06/14/18 11:13 06/14/18 11:13 Labs: Abnormal Lab Results - Last 24 Hours (Table) 06/13/18 06/13/18 06/13/18 Range/Units 16:59 17:01 18:19 WBC (3.8-10.6) k/uL Hgb (11.4-16.0) gm/dL MCHC (31.0-37.0) g/dL Neutrophils # (1.3-7.7) k/uL Neutrophils # (Manual) (1.3-7.7) k/uL Lymphocytes # (1.0-4.8) k/uL Metamyelocytes # (Man) (0) k/uL Myelocytes # (Manual) (0) k/uL Sodium 135 L (137-145) mmol/L Chloride (98-107) mmol/L Carbon Dioxide 20 L (22-30) mmol/L BUN 22 H (7-17) mg/dL Creatinine 1.50 H (0.52-1.04) mg/dL Glucose 357 H (74-99) mg/dL POC Glucose (mg/dL) 356 H (75-99) mg/dL Hemoglobin A1c (4.0-6.0) % Plasma Lactic Acid David 2.7 H* (0.7-2.0) mmol/L Magnesium 1.0 L (1.6-2.3) mg/dL Total Protein 5.6 L (6.3-8.2) g/dL Albumin 3.1 L (3.5-5.0) g/dL Amylase <30 L (30-110) U/L Lipase 13 L (23-300) U/L Urine Appearance (Clear) Urine Protein (Negative) Urine Glucose (UA) (Negative) Urine Blood (Negative) Ur Leukocyte Esterase (Negative) Urine RBC (0-5) /hpf Urine WBC (0-5) /hpf Urine WBC Clumps (None) /hpf Urine Bacteria (None) /hpf 06/13/18 06/13/18 06/13/18 Range/Units 18:19 18:19 19:21 WBC 21.4 H (3.8-10.6) k/uL Hgb (11.4-16.0) gm/dL MCHC 30.7 L (31.0-37.0) g/dL Neutrophils # (1.3-7.7) k/uL Neutrophils # (Manual) 18.80 H (1.3-7.7) k/uL Lymphocytes # (1.0-4.8) k/uL Metamyelocytes # (Man) 0.43 H (0) k/uL Myelocytes # (Manual) 0.21 H (0) k/uL Sodium (137-145) mmol/L Chloride (98-107) mmol/L Carbon Dioxide (22-30) mmol/L BUN (7-17) mg/dL Creatinine (0.52-1.04) mg/dL Glucose (74-99) mg/dL POC Glucose (mg/dL) 339 H (75-99) mg/dL Hemoglobin A1c 8.5 H (4.0-6.0) % Plasma Lactic Acid David (0.7-2.0) mmol/L Magnesium (1.6-2.3) mg/dL Total Protein (6.3-8.2) g/dL Albumin (3.5-5.0) g/dL Amylase (30-110) U/L Lipase (23-300) U/L Urine Appearance (Clear) Urine Protein (Negative) Urine Glucose (UA) (Negative) Urine Blood (Negative) Ur Leukocyte Esterase (Negative) Urine RBC (0-5) /hpf Urine WBC (0-5) /hpf Urine WBC Clumps (None) /hpf Urine Bacteria (None) /hpf 06/13/18 06/13/18 06/13/18 Range/Units 19:30 21:04 22:49 WBC (3.8-10.6) k/uL Hgb (11.4-16.0) gm/dL MCHC (31.0-37.0) g/dL Neutrophils # (1.3-7.7) k/uL Neutrophils # (Manual) (1.3-7.7) k/uL Lymphocytes # (1.0-4.8) k/uL Metamyelocytes # (Man) (0) k/uL Myelocytes # (Manual) (0) k/uL Sodium (137-145) mmol/L Chloride (98-107) mmol/L Carbon Dioxide (22-30) mmol/L BUN (7-17) mg/dL Creatinine (0.52-1.04) mg/dL Glucose (74-99) mg/dL POC Glucose (mg/dL) 340 H 224 H (75-99) mg/dL Hemoglobin A1c (4.0-6.0) % Plasma Lactic Acid David (0.7-2.0) mmol/L Magnesium (1.6-2.3) mg/dL Total Protein (6.3-8.2) g/dL Albumin (3.5-5.0) g/dL Amylase (30-110) U/L Lipase (23-300) U/L Urine Appearance Turbid H (Clear) Urine Protein 3+ H (Negative) Urine Glucose (UA) 4+ H (Negative) Urine Blood Moderate H (Negative) Ur Leukocyte Esterase Large H (Negative) Urine RBC 31 H (0-5) /hpf Urine WBC >182 H (0-5) /hpf Urine WBC Clumps Many H (None) /hpf Urine Bacteria Many H (None) /hpf 06/13/18 06/14/18 06/14/18 Range/Units 23:07 07:30 11:13 WBC 22.5 H (3.8-10.6) k/uL Hgb 10.9 L (11.4-16.0) gm/dL MCHC 30.4 L (31.0-37.0) g/dL Neutrophils # 20.7 H (1.3-7.7) k/uL Neutrophils # (Manual) (1.3-7.7) k/uL Lymphocytes # 0.7 L (1.0-4.8) k/uL Metamyelocytes # (Man) (0) k/uL Myelocytes # (Manual) (0) k/uL Sodium (137-145) mmol/L Chloride (98-107) mmol/L Carbon Dioxide (22-30) mmol/L BUN (7-17) mg/dL Creatinine (0.52-1.04) mg/dL Glucose (74-99) mg/dL POC Glucose (mg/dL) 282 H (75-99) mg/dL Hemoglobin A1c (4.0-6.0) % Plasma Lactic Acid David 2.1 H* (0.7-2.0) mmol/L Magnesium (1.6-2.3) mg/dL Total Protein (6.3-8.2) g/dL Albumin (3.5-5.0) g/dL Amylase (30-110) U/L Lipase (23-300) U/L Urine Appearance (Clear) Urine Protein (Negative) Urine Glucose (UA) (Negative) Urine Blood (Negative) Ur Leukocyte Esterase (Negative) Urine RBC (0-5) /hpf Urine WBC (0-5) /hpf Urine WBC Clumps (None) /hpf Urine Bacteria (None) /hpf 06/14/18 06/14/18 06/14/18 Range/Units 11:13 11:13 11:26 WBC (3.8-10.6) k/uL Hgb (11.4-16.0) gm/dL MCHC (31.0-37.0) g/dL Neutrophils # (1.3-7.7) k/uL Neutrophils # (Manual) (1.3-7.7) k/uL Lymphocytes # (1.0-4.8) k/uL Metamyelocytes # (Man) (0) k/uL Myelocytes # (Manual) (0) k/uL Sodium (137-145) mmol/L Chloride 110 H (98-107) mmol/L Carbon Dioxide 18 L (22-30) mmol/L BUN 28 H (7-17) mg/dL Creatinine 2.37 H (0.52-1.04) mg/dL Glucose 195 H (74-99) mg/dL POC Glucose (mg/dL) 211 H (75-99) mg/dL Hemoglobin A1c (4.0-6.0) % Plasma Lactic Acid David 4.4 H* (0.7-2.0) mmol/L Magnesium 1.2 L (1.6-2.3) mg/dL Total Protein (6.3-8.2) g/dL Albumin (3.5-5.0) g/dL Amylase (30-110) U/L Lipase (23-300) U/L Urine Appearance (Clear) Urine Protein (Negative) Urine Glucose (UA) (Negative) Urine Blood (Negative) Ur Leukocyte Esterase (Negative) Urine RBC (0-5) /hpf Urine WBC (0-5) /hpf Urine WBC Clumps (None) /hpf Urine Bacteria (None) /hpf Microbiology - Last 24 Hours (Table) 06/13/18 18:19 Blood Culture Gram Stain - Preliminary Blood 06/13/18 18:19 Blood Culture - Final Blood 06/13/18 19:30 Urine Culture - Preliminary Urine,Voided Assessment and Plan Plan: This is a 67-year-old female presented to the hospital with metabolic encephalopathy secondary to gram-negative bacteremia, sepsis with urinary tract infection, acute kidney injury. Rocephin will be transition to cefepime. No previous urine or blood cultures available for review. Patient is to receive 2 more liters of IV fluid. Repeat blood cultures will be ordered. Urine culture is in progress. Continue supportive care. Further recommendations as patient presses. The above dictated assessment and findings were discussed with Dr. Carrasco. The impression and plan of care have been directed as dictated. Susan Yarbrough nurse practitioner acting as scribe for Dr. Carrasco.
[2018-06-14] MEDS: MAGNESIUM SULFATE-D5W PMX 1 GM in DEXTROSE/WATER 1 100ML.BAG IVPB SCH ×3 (14:05→18:51)
[2018-06-14] MEDS: MYCOPHENOLATE SODIUM DR 180 MG TABLET.DR PO SCH ×2 (14:06→21:39)
[2018-06-14] MEDS: TACROLIMUS 1 MG CAP PO SCH ×2 (14:07→21:39)
[2018-06-14] MEDS: SODIUM CHLORIDE 0.9% 1,000 ML IV SCH ×2 (14:08→23:45)
[2018-06-14 16:30] LABS: Glucose,Whole Blood 156 mg/dL (75-99)
--- NOTE | 2018-06-14 17:37 | XR ---
EXAMINATION TYPE: XR chest 1V portable DATE OF EXAM: 06/14/2018 COMPARISON: 06/13/2018 HISTORY: Short of breath TECHNIQUE: Single frontal view of the chest is obtained. FINDINGS: Heart and mediastinum are normal. The lungs are clear of consolidation. There is no pleura l effusion. Bony thorax appears intact. IMPRESSION: No active cardiac pulmonary disease. No change.
[2018-06-14] MEDS ORDERED: CALCIUM CARBONATE 500 MG CHEWABLE PO PRN (18:57)
[2018-06-14] MEDS ORDERED: MELATONIN 3 MG TABLET PO PRN (18:57)
[2018-06-14] MEDS ORDERED: ALPRAZolam 0.25 MG TAB PO PRN (18:57)
[2018-06-14] MEDS ORDERED: HYDROCORTISONE SUCCINATE 100 MG/2 ML VIAL IV SCH (19:15)
--- NOTE | 2018-06-14 19:46 | HP ---
HISTORY AND PHYSICAL DATE OF ADMISSION: 06/13/2018 DATE OF SERVICE: 06/14/2018 PRESENTING COMPLAINT: Fever, chills, tired. HISTORY OF PRESENTING COMPLAINT: This is a very pleasant 67-year-old patient of Dr. Purcell. Chronic stable medical conditions include hyperlipidemia, hypertension, kidney transplant, asthma. The patient had a renal transplant in July of 2015. Patient lives with her and is on anti-rejection medications. The patient does follow with Dr. Moctezuma out of [facility] on [facility]. Patient had previously been both on hemodialysis and peritoneal dialysis. Yesterday patient started feeling unwell, started having nausea, vomiting, fever, chills, some lower abdominal pain. When she presented to the ER she was found to be septic with a fever of 102, tachycardic. She was given fluids. She was also found to be in acute renal failure and was also given IV antibiotic. Consultation was made to Nephrology, Infectious Disease. She was also having chills and rigors, tired, rundown. There was no direct pain over the transplant site. REVIEW OF SYSTEMS: CONSTITUTIONAL: Fever and chills. HEENT: None. RESPIRATORY: None. CARDIOVASCULAR: None. GASTROINTESTINAL: None. GENITOURINARY: Some urinary burning. DERMATOLOGICAL: None. HEMATOLOGICAL: None. LYMPHATICS: None. PSYCHIATRY: None. NEUROLOGICAL: None. PAST MEDICAL HISTORY: 1. Diabetes. 2. Hyperlipidemia. 3. Essential hypertension. 4. End-stage kidney disease followed by renal transplant. 5. Skin disorder. 6. Keloids. 7. Previously on peritoneal hemodialysis. PAST SURGICAL HISTORY: 1. Cholecystectomy. 2. Hysterectomy. 3. Hemodialysis shunt in the left forearm. 4. Renal transplant in July 2015. 5. Bilateral cataracts. SOCIAL HISTORY: The patient smoked 3 packs per week. Smoked for 10 years, stopped in 1989. Denies any illegal drugs or alcohol. . FAMILY HISTORY: Brain aneurysm. HOME MEDICATIONS: 1. Ultram 50 mg q.6 p.r.n. 2. Prednisone 5 mg a day. 3. Norvasc 10 mg p.o. daily. 4. Prograf 3 mg at bedtime, 4 mg in the morning. 5. Sodium bicarb 650 mg t.i.d. 6. Myfortic 360 mg p.o. b.i.d. 7. Cozaar 25 mg p.o. daily. 8. Linzess 145 mg p.o. daily. 9. Lantus 30 units subcutaneously at bedtime. 10.Humalog 9 units with breakfast, 14 units with supper, 12 units with lunch. 11.Pepcid 20 mg daily. 12.Vitamin D2 50,000 units p.o. every 30 days. 13.Coreg 12.5 p.o. b.i.d. 14.Lipitor 10 mg at bedtime. 15.Aspirin 81 mg a day. 16.Ventolin 2.5 q.i.d. p.r.n. 17.Ventolin HFA 2 puffs q.i.d. p.r.n. ALLERGIES: 1. HYDRALAZINE. 2. IV CONTRAST DYE. 3. DEMEROL. PHYSICAL EXAMINATION: VITAL SIGNS ON PRESENTATION: Temperature 102.3, pulse 120, respiration 22, blood pressure 113/67, pulse ox 99% on 2 L. Later this morning blood pressure did go down to 96/54. GENERAL APPEARANCE: Well built; BMI 37.7. Lying in bed, tired-appearing. EYES: Pupils equal. Conjunctivae pale. HEENT: External appearance of nose and ears normal. Oral cavity normal. NECK: JVD not raised. Mass not palpable. RESPIRATORY: Effort normal. LUNGS: Fair air entry. CARDIOVASCULAR: First and second sounds normal. No edema. ABDOMEN: Scars present. Suprapubic tenderness. No tenderness over the renal transplant. Liver and spleen not palpable. No guarding or rigidity. Bowel sounds are present. LYMPHATIC: No lymph node palpable in neck or axillae. PSYCHIATRY: Alert and oriented x3. Mood and affect anxious-appearing. NEUROLOGICAL: Pupils equal. Cranial nerves grossly intact. Power and sensation grossly intact. INVESTIGATIONS: White count 22.5, hemoglobin 10.9, platelets 175, potassium 4.3, BUN 28, creatinine 2.37. Lactic acid 4.4. Patient's last creatinine was 1.13 on June 01, 2018. Patient's UA is also positive. Initial BUN and creatinine were 22 and 1.5 when she came in with a white count of 21.4. CT scan of the abdomen and pelvis showed sigmoid diverticulosis, atrophic bilateral [facility] kidneys with right lower quadrant transplant, moderate bilateral hip osteoarthritis and in the lumbar spine. Chest x-ray film personally reviewed by me showed borderline cardiomegaly. Lung carmona appear to be clear. EKG tracing personally reviewed by me shows a poor baseline. Troponin less than 0.012. UA positive. ASSESSMENT: 1. Acute urinary tract infection from acute cystitis causing severe sepsis, present on admission. 2. Lactic acidosis from severe sepsis. 3. Acute renal failure, probably acute tubular necrosis from sepsis and possibly a prerenal component. 4. Acute metabolic acidosis. 5. Cadaver renal transplant in 2016. 6. Diabetes mellitus, type 2, chronically requiring insulin, uncontrolled with hyperglycemia. 7. Hyperlipidemia. 8. Essential hypertension. 9. Obesity; body mass index 37.7. PLAN: The patient is given IV fluids. Patient was started on IV ceftriaxone per ID. Will put the patient on stress dose of IV Solu-Medrol. Patient is also getting IV fluids. Will get fluid boluses. Will repeat EKG, troponin. Will also do a 2D echocardiogram, get a cardiology opinion, depending on the labs. Care discussed with the patient. Questions were answered. MMODL / IJN: [id number] /
[2018-06-14] MEDS ORDERED: INSULIN DETEMIR 100 UNIT/ML 10 ML VIAL SQ SCH (21:00)
[2018-06-14 21:23] LABS: Glucose,Whole Blood 124 mg/dL (75-99)
[2018-06-14] MEDS: ATORVASTATIN 10 MG TAB PO SCH (21:39)
[2018-06-14] MEDS: INSULIN DETEMIR 100 UNIT/ML 10 ML VIAL SQ SCH (21:40)
[2018-06-14] MEDS: ENOXAPARIN 40 MG/0.4 ML SYRINGE SQ SCH (21:51)
[2018-06-14] MEDS: HYDROCORTISONE SUCCINATE 100 MG/2 ML VIAL IV SCH (21:55)
--- NOTE | 2018-06-14 21:56 | P.CON ---
Consult Note - . Consult date: 06/14/18 Assessment/Plan:: This is a 67-year-old -[place] female with past history significant for end-stage renal disease on previous hemodialysis, kidney transplant in 2011 from donor. Patient presented to [facility] emergency center on June 01 for flulike symptoms and body aches and right- sided abdominal pain and flank pain. She also had some nausea and vomiting and elevated blood sugar. She was afebrile, white count 11.5, BUN 15 creatinine 1.15. CAT scan of the abdomen and pelvis without contrast showed sigmoid diverticulosis without diverticulitis. Atrophic bilateral [facility] kidneys with right lower quadrant transplant. There is a punctuate 1 mm density along the distal transplant ureter that could represent small surgical material or punctate calculus. There is mild ureteral prominence but no ari hydronephrosis. Few prominent fluid-filled small bowel loops in the left side of the upper to mid abdomen could represent regional enteritis. Moderate bilateral hip osteoarthritis advanced degenerative changes throughout the lumbar spine. Patient was giving morphine, Zofran and was discharged home on Tylenol No. 3. Patient states that she was not feeling any better after she left the hospital. She continued to have abdominal pain, body aches. No nausea or vomiting. She does state she had decreased appetite and has not been eating or drinking very much. She is complaining of chills and dysuria. She states she's had change in the color of her urine to a darker color and decreased output She came back into [facility] emergency center for evaluation on June 13 is found to have a white count of 21.4, BUN 22 and creatinine 1.5, lactic acid 2.7 and repeat 4.4. Temperature 102.3. Urinalysis was turbid, blood moderate, leukoesterase large, WBC greater than 182 , WBC clumps many, bacteria many. C. difficile toxin was negative. Chest x- ray shows no acute process. Patient received 2 L of IV fluid followed by another liter 150 mL per hour, magnesium was replaced, she received regular insulin and was given one dose of Rocephin and admitted to the [facility] floor. A- Team was called on her this morning due to mental status changes and low blood pressure of 95/54. Dr. Magaña is on consult and has ordered another 2 L bolus. Patient has had minimal urine output and Walsh catheter has been placed. Blood culture is gram-negative bacilli, urine culture in progress. No previous urine cultures/blood cultures are available for review. History is obtained from the patient and confirmed by patient's nurse and family members as patient is not reliable historian at this time.please see the consult note is dictated by nurse practitioner Mrs. Susan Yarbrough. 67-year-old woman status post renal transplant in 2013 from a nonrelated donor presents feeling very poorly with fever chills body aches bowel pain and flank pain. Also has some nausea and emesis and hyperglycemia. She was with leukocytosis, lactic acidosis and elevated creatinine above her baseline. At this time she still is having some altered mental status from what appears to be sepsis and possibly urinary system. Her white count still 22.5. Her creatinine did increase to 2.37. Lactic acid has improved. There was concerns to C. diff and this is coming back as negative. Laboratories now calling evidence of a positive blood culture with gram- negative bacilli. Patient was started on Rocephin. With her history of transplant in immunocompromise that also be concerns for the potential of Pseudomonas and constantly Rocephin will be transitioned to cefepime pending further culture data. Urine culture is still pending at this time. Nephrology is following. I agree with evaluation, assessment and plan as dictated by nurse practitioner Mrs. Susan Yarbrough.
[2018-06-15] MEDS: CEFEPIME 1 GM in SODIUM CHLORIDE 0.9% 50 ML IVPB SCH ×3 (01:04→22:57)
[2018-06-15] MEDS: HYDROCORTISONE SUCCINATE 100 MG/2 ML VIAL IV SCH (05:44)
[2018-06-15 07:13] LABS: Glucose,Whole Blood 92 mg/dL (75-99)
[2018-06-15 07:49] LABS: Basophils # (A) 0.1 k/uL (0-0.2); Basophils % (A) 0 %; Eosinophils % (A) 0 %; HCT 38.8 % (34.0-46.0); Hypochromasia Marked; Lymphocytes # (A) 0.6 k/uL (1.0-4.8); Lymphocytes % (A) 3 %; MCH 25.8 pg (25.0-35.0); MCHC 28.3 g/dL (31.0-37.0); MCV 91.4 fL (80.0-100.0); Mean Platelet Volume 8.2; Monocytes # (A) 0.5 k/uL (0-1.0); Monocytes % (A) 2 %; Neutrophils # (A) 19.8 k/uL (1.3-7.7); Neutrophils % (A) 94 %; Platelet Count 173 k/uL (150-450); RBC 4.24 m/uL (3.80-5.40); RDW 13.5 % (11.5-15.5); WBC 21.2 k/uL (3.8-10.6)
[2018-06-15 08:33] LABS: Magnesium 2.1 mg/dL (1.6-2.3); Potassium 4.2 mmol/L (3.5-5.1)
[2018-06-15] MEDS: SODIUM CHLORIDE 0.9% 1,000 ML IV SCH (10:44)
[2018-06-15] MEDS: ASPIRIN 81 MG PO SCH (10:53)
[2018-06-15] MEDS: ENOXAPARIN 40 MG/0.4 ML SYRINGE SQ SCH (10:53)
[2018-06-15] MEDS: FAMOTIDINE 20 MG TAB PO SCH (10:54)
[2018-06-15] MEDS: SODIUM BICARBONATE TAB 650 MG TAB PO SCH ×3 (10:54→22:37)
[2018-06-15] MEDS: CARVEDILOL 12.5 MG TAB PO SCH ×2 (10:54→18:00)
[2018-06-15] MEDS: MYCOPHENOLATE SODIUM DR 180 MG TABLET.DR PO SCH ×2 (10:55→22:37)
[2018-06-15] MEDS: TACROLIMUS 1 MG CAP PO SCH ×2 (10:56→22:37)
[2018-06-15] MEDS: LINACLOTIDE 145 MG PO SCH (10:56)
[2018-06-15] MEDS: INSULIN ASPART 100 UNIT/ML 1 ML 10 ML VIAL SQ SCH ×3 (10:57→18:00)
[2018-06-15 11:51] LABS: Glucose,Whole Blood 81 mg/dL (75-99)
--- NOTE | 2018-06-15 12:50 | P.CRDCN ---
History of Present Illness History of present illness: This is a pleasant 67-year-old -[place] female past medical history significant for diabetes mellitus, hypertension, kidney transplant 2015 and peripheral vascular disease. She follows with Dr. Abarca in the office. We have been asked to consultation secondary to elevated troponin. She presented to the hospital with altered mental status and lethargy. She had previously been in the emergency department approximately a week prior and was diagnosed with a kidney stone on the right side. When she was brought in this time she had a temperature of 102.3 blood sugar of 541 and was also tachycardic. She had been complaining of some left flank pain 2 days prior. She has been diagnosed with urinary tract infection as well as bacteremia. Blood cultures positive for gram-negative bacilli. Dr. Carrasco has seen the patient and made antibiotic recommendations. We have been asked to see her in consultation secondary to elevated troponin. She denies symptoms of chest discomfort, shortness of breath, dizziness or palpitations. She is seen and examined resting comfortably in bed in no acute distress. EKG obtained on arrival reveals sinus mechanism with nonspecific changes. Repeat obtained yesterday reveals sinus mechanism with no acute ST or T wave abnormalities noted. Chest x-ray is negative for acute cardiopulmonary process. Laboratory data reviewed, WBC 21.2, hemoglobin 11, platelets 173, sodium 140, potassium 4.2, creatinine 2.36, magnesium 2.1, troponin 0.064 and 0.075. Lactic acid on admission 2. 1 repeat 1.0. Current cardiac medications include aspirin 81 mg daily, atorvastatin 10 mg daily, carvedilol 12.5 mg twice a day and amlodipine 10 mg daily. Most recent echocardiogram obtained August 2017 reveals preserved left ventricular systolic function with ejection fraction 55-60%, mild tricuspid regurgitation. At the time of my exam: CONSTITUTIONAL: Denies fever. Denies chills. EYES: Denies blurred vision. Denies vision changes. Denies eye pain. EARS, NOSE, MOUTH & THROAT: Denies headache. Denies sore throat. Denies ear pain. CARDIOVASCULAR: Denies chest pain. Denies shortness of breath. Denies orthopnea. Denies PND. Denies palpitations. RESPIRATORY: Denies cough. GASTROINTESTINAL: Denies abdominal pain. Denies diarrhea. Denies constipation. Denies nausea. Denies vomiting. MUSCULOSKELETAL: Denies myalgias. INTEGUMENTARY: Denies pruitis. Denies rash. NEUROLOGIC: Denies numbness. Denies tingling. Denies weakness. PSYCHIATRIC: Denies anxiety. Denies depression. ENDOCRINE: Denies fatigue. Denies weight change. Denies polydipsia. Denies polyurina. GENITOURINARY: Denies burning, hematuria or urgency with micturation. HEMATOLOGIC: Denies history of anemia. Denies bleeding. ASSESSMENT Urinary tract infection Bacteremia, gram-negative bacilli and blood cultures Mild troponin leak secondary to sepsis. Leukocytosis Hypomagnesemia Febrile illness Chronic kidney disease status post transplant 2014 Diabetes mellitus Hypertension Dyslipidemia PLAN Echocardiogram has been ordered and will be reviewed. Mild troponin elevation is not indicative of an acute coronary event, secondary to sepsis and bacteremia. Ongoing medical management per primary care team. Follow up with Dr. Whyte upon discharge. We will continue to see as needed, thank you kindly for this consultation. Nurse Practitioner note has been reviewed, I agree with a documented findings and plan of care. Patient was seen and examined. Past Medical History Past Medical History: Asthma, Diabetes Mellitus, Dialysis, Eye Disorder, Hyperlipidemia, Hypertension, Renal Disease, Skin Disorder Additional Past Medical History / Comment(s): KELOIDS, IBS "YEARS AGO",PREVIOUS HX OF DIALYSIS BUT THEN RECIEVED A RENAL TRANSPLANT. History of Any Multi-Drug Resistant Organisms: ESBL Date of last positivie culture/infection: 2011 approx(PREVIOUSLY CHARTED) MDRO Source:: peritoneal dialysis cath Past Surgical History: Cholecystectomy, Hysterectomy Additional Past Surgical History / Comment(s): hemodialysis shunt lt forearm, peritoneal dialysis insertion and removal- THEN RENAL TRANSPLANT 2-2015, EGD/ COLONOSCOPY, LT KNEE ARTHROSCOPY, EDUARDO CATARACTS, RT EYE SX TO REPAIR DETATCHED RETINA. Colonoscopy 2018 and this was her 3rd. Past Anesthesia/Blood Transfusion Reactions: No Reported Reaction Additional Past Anesthesia/Blood Transfusion Reaction / Comment(s): has had a hard time coming out of anesthesia Past Psychological History: No Psychological Hx Reported Smoking Status: Former smoker Past Alcohol Use History: None Reported Additional Past Alcohol Use History / Comment(s): started smoking 1979,quit smoking 1989, smoked 3 packs per week. No marijuana or illicit drug use, no alcohol use. Patient lives at home with her . There are no pets in the home. No recent travel but did travel to [place] last year. Past Drug Use History: None Reported - Past Family History Mother History Unknown: Yes Father Additional Family Medical History / Comment(s): brain aneurysm Medications and Allergies Home Medications Medication Instructions Recorded Confirmed Type INSULIN LISPRO (HumaLOG) [humaLOG] 12 units SQ AC-LUNCH 01/02/16 06/13/18 History INSULIN LISPRO (HumaLOG) [humaLOG] 14 units SQ AC-SUPPER 01/02/16 06/13/18 History Tacrolimus [Prograf] 4 mg PO QAM 07/26/16 06/13/18 History Albuterol Inhaler [Ventolin Hfa 2 puff INHALATION RT-QID PRN 08/11/16 06/13/18 History Inhaler] Albuterol Nebulized [Ventolin 2.5 mg INHALATION RT-QID PRN 08/11/16 06/13/18 History Nebulized] Aspirin 81 mg PO DAILY 08/11/16 06/13/18 History Atorvastatin Calcium [Lipitor] 10 mg PO HS 08/11/16 06/13/18 History Carvedilol [Coreg*] 12.5 mg PO BID 08/11/16 06/13/18 History INSULIN LISPRO (humaLOG) [humaLOG] 9 units SQ AC-BRKFST 08/11/16 06/13/[address] [Myfortic] 360 mg PO BID 08/11/16 06/13/18 History Sodium Bicarbonate Tab 650 mg PO TID 08/11/16 06/13/18 History amLODIPine [Norvasc] 10 mg PO DAILY 08/11/16 06/13/18 History Ergocalciferol (Vitamin D2) 50,000 unit PO Q30D 08/25/17 06/13/18 History [Vitamin D2] Insulin Glargine,Hum.rec.anlog 30 unit SQ HS 08/25/17 06/13/18 History [Lantus Solostar] Losartan Potassium [Cozaar] 25 mg PO DAILY 08/25/17 06/13/18 History predniSONE 5 mg PO DAILY 08/25/17 06/13/18 History traMADol HCL [Ultram] 50 mg PO Q6HR PRN 08/25/17 06/13/18 History Tacrolimus [Prograf] 3 mg PO HS 06/01/18 06/13/18 History Famotidine [Pepcid] 20 mg PO DAILY 06/13/18 06/13/18 History Linaclotide [Linzess] 145 mg PO DAILY 06/13/18 06/13/18 History Allergies Allergy/AdvReac Type Severity Reaction Status Date / Time hydralazine [From Apresoline] Allergy Rash/Hives Verified 06/13/18 18:56 Iodinated Contrast- Oral and Allergy Unknown Verified 06/13/18 18:56 IV Dye meperidine [From Demerol] Allergy Anaphylaxis Verified 06/13/18 18:56 Physical Exam Vitals: Vital Signs Temp Pulse Resp BP Pulse Ox 06/15/18 07:02 98.3 F 73 20 144/62 100 06/14/18 23:00 97.1 F L 78 16 109/62 97 06/14/18 20:30 99.5 F 79 16 112/54 99 06/14/18 14:33 98.7 F 77 103/54 94 L 06/14/18 13:02 104/59 06/14/18 11:00 99.7 F H 87 20 96/54 94 L Intake and Output 06/14/18 06/15/18 06/15/18 22:59 06:59 14:59 Intake Total 2590 50 Output Total 200 375 Balance 2390 50 -375 Intake: Intake, IV Titration 2000 50 Amount Cefepime 1 gm In Sodium 50 Chloride 0.9% 50 ml @ 100 mls/hr IVPB Q12HR [facility] Rx #:[id number] Sodium Chloride 0.9% 2, 2000 000 ml @ 999 mls/hr IV . Q2H1M ONE Rx#:[id number] Oral 590 Output: Urine 200 375 Other: Voiding Method Indwelling Catheter Indwelling Catheter Results 06/15/18 07:26 06/15/18 07:26 Cardiac Enzymes 06/14/18 06/15/18 Range/Units 19:55 07:26 Troponin I 0.064 H* 0.075 H* (0.000-0.034) ng/mL CBC 06/14/18 06/15/18 Range/Units 11:13 07:26 WBC 22.5 H 21.2 H (3.8-10.6) k/uL RBC 3.91 4.24 (3.80-5.40) m/uL Hgb 10.9 L 11.0 L (11.4-16.0) gm/dL Hct 35.7 38.8 (34.0-46.0) % Plt Count 175 173 (150-450) k/uL Comprehensive Metabolic Panel 06/14/18 06/15/18 Range/Units 11:13 07:26 Sodium 138 140 (137-145) mmol/L Potassium 4.3 4.2 (3.5-5.1) mmol/L Chloride 110 H 112 H (98-107) mmol/L Carbon Dioxide 18 L 19 L (22-30) mmol/L BUN 28 H 33 H (7-17) mg/dL Creatinine 2.37 H 2.36 H (0.52-1.04) mg/dL Glucose 195 H 90 (74-99) mg/dL Calcium 8.9 9.0 (8.4-10.2) mg/dL Current Medications Generic Name Dose Route Start Last Admin Trade Name Freq PRN Reason Stop Dose Admin Acetaminophen 650 mg 06/14/18 18:57 Tylenol Tab PO Q6HR PRN Mild Pain or Fever > 100.5 Alprazolam 0.25 mg 06/14/18 18:57 Xanax PO Q6HR PRN Anxiety Aspirin 81 mg 06/14/18 09:00 06/14/18 08:02 Aspirin PO 81 mg DAILY SILVIA Administration Atorvastatin Calcium 10 mg 06/14/18 21:00 06/14/18 21:39 Lipitor PO 10 mg HS SIL[facility]IA Administration Calcium Carbonate/Glycine 1,000 mg 06/14/18 18:57 Tums PO Q4HR PRN Dyspepsia Carvedilol 12.5 mg 06/14/18 07:30 06/14/18 18:51 Coreg PO 12.5 mg BID-W/MEALS [facility] Administration Enoxaparin Sodium 40 mg 06/14/18 19:00 06/14/18 21:51 Lovenox SQ 40 mg DAILY [facility] Administration Ergocalciferol 50,000 unit 06/13/18 22:45 06/14/18 04:42 Vitamin D2 PO Not Given Q30D [facility] Famotidine 20 mg 06/14/18 09:00 06/14/18 08:02 Pepcid PO 20 mg DAILY [facility] Administration Hydrocortisone Sodium Succinate 100 mg 06/14/18 22:00 06/15/18 05:44 Solu-Cortef IV Not Given Q8H [facility] Sodium Chloride 1,000 mls @ 75 mls/hr 06/14/18 09:45 06/14/18 23:45 Saline 0.9% IV 75 mls/hr .[id number] [facility] Administration Cefepime HCl 1 gm/ Sodium 50 mls @ 100 mls/hr 06/14/18 22:00 06/15/18 01:04 Chloride IVPB 100 mls/hr Q12HR [facility] Administration Insulin Aspart 14 unit 06/14/18 17:30 06/14/18 18:52 Novolog SQ Not Given AC-SUPPER [facility] Insulin Aspart 12 unit 06/14/18 12:30 06/14/18 14:23 Novolog SQ 12 unit AC-LUNCH [facility] Administration Insulin Aspart 9 unit 06/14/18 07:30 06/14/18 08:01 Novolog SQ 9 unit AC-BRKFST [facility] Administration Insulin Detemir 30 unit 06/14/18 21:00 06/14/18 21:40 Levemir SQ 30 unit HS [facility] Administration Melatonin 3 mg 06/14/18 18:57 Melatonin PO HS PRN Insomnia Miscellaneous Information 1 each 06/14/18 13:20 Magnesium Per Protocol MISCELLANE DAILY PRN Per Protocol Protocol Mycophenolate Sodium 360 mg 06/14/18 09:00 06/14/18 21:39 Myfortic PO 360 mg BID [facility] Administration Naloxone HCl 0.2 mg 06/13/18 22:42 Narcan IV Q2M PRN Opioid Reversal Non-Formulary Medication 145 mg 06/14/18 09:00 06/14/18 10:37 Linaclotide [Linzess] PO Not Given DAILY [facility] Ondansetron HCl 4 mg 06/13/18 22:42 Zofran IVP Q8HR PRN Nausea And Vomiting Sodium Bicarbonate 650 mg 06/14/18 09:00 06/14/18 21:40 Sodium Bicarbonate Tab PO 650 mg TID [facility] Administration Tacrolimus 3 mg 06/14/18 21:00 06/14/18 21:39 Prograf PO 3 mg HS [facility] Administration Tacrolimus 4 mg 06/14/18 09:00 06/14/18 14:07 Prograf PO 4 mg QAM [facility] Administration Tramadol HCl 50 mg 06/13/18 22:44 06/14/18 10:29 Ultram PO 50 mg Q6HR PRN Administration Pain Intake and Output 06/14/18 06/15/18 06/15/18 22:59 06:59 14:59 Intake Total 2590 50 Output Total 200 375 Balance 2390 50 -375 Intake: Intake, IV Titration 2000 50 Amount Cefepime 1 gm In Sodium 50 Chloride 0.9% 50 ml @ 100 mls/hr IVPB Q12HR [facility] Rx #:[id number] Sodium Chloride 0.9% 2, 2000 000 ml @ 999 mls/hr IV . Q2H1M ONE Rx#:[id number] Oral 590 Output: Urine 200 375 Other: Voiding Method Indwelling Catheter Indwelling Catheter 06/15/18 07:26 06/15/18 07:26
--- NOTE | 2018-06-15 13:34 | PN ---
PROGRESS NOTE Patient is seen for followup for acute kidney injury. Yesterday, she was hypotensive and had poor urine output. The patient received fluid boluses for an elevated lactic acid level. Her urine and blood cultures are growing gram-negative bacilli. Patient is maintained on IV antibiotics. This morning she is feeling better. She is much more calm and comfortable. PHYSICAL EXAMINATION: Blood pressure is 144/62, heart rate 73 per minute. She is afebrile. EXAMINATION OF THE HEART: S1, S2. EXAMINATION OF THE LUNGS: Bilateral breath sounds are heard. Abdomen is soft, nontender. Examination of the lower extremities shows no evidence of edema. PATTERN CHECKER exam is grossly intact. LABS: Labs show sodium 140, potassium 4.2, chloride 112, BUN 33, serum creatinine 2.36, hemoglobin 11.0 g/dL. ASSESSMENT: 1. Acute kidney injury secondary to sepsis, hypotension hypoperfusion currently with improved urine output. Serum creatinine is about the same as yesterday, expect further improvement by tomorrow. Continue with IV fluids. 2. Sepsis with gram-negative bacteremia and urinary tract infection, maintained on cefepime and currently improving. 3. Lactic acidosis secondary to septicemia. 4. Urinary tract infection with bacteremia. 5. Status post -donor transplant in 2011, maintained on prednisone, Myfortic and Prograf. Patient did receive IV hydrocortisone which was given as a stress dose as she was on prednisone. 6. Hypertension. Blood pressure is low, currently off of Cozaar and Norvasc. PLAN: Continue IV fluids. Maintain patient on prednisone. I see that she has not been getting the the Solu-Cortef. Continue with antibiotics. Repeat labs in a.m. Continue to avoid nephrotoxic agents. MMODL / IJN: [id number] /
[2018-06-15] MEDS: predniSONE 10 MG TAB PO SCH (15:04)
[2018-06-15] MEDS: ONDANSETRON 4 MG/2 ML VIAL IVP PRN (15:04)
[2018-06-15 17:12] LABS: Glucose,Whole Blood 50 mg/dL (75-99)
--- NOTE | 2018-06-15 17:28 | PN ---
PROGRESS NOTE DATE OF SERVICE: June 15, 2018. PRESENTING COMPLAINT: Fever. INTERVAL HISTORY: This pleasant lady with renal transplant, presented with acute UTI with sepsis, acute renal failure. Received antibiotic, fluids. Doing better today. Appetite is a bit down. Granddaughter is present. Fevers have come down. Overall looks better. Abdominal pain is much improved. Making better urine. REVIEW OF SYSTEMS: Done for constitutional, cardiovascular, GI, pulmonary; relevant findings as above. No further abdominal pain. CURRENT MEDICATIONS: Reviewed that include IV cefepime, normal saline at 75 mL an hour, has been switched over to oral prednisone. EXAMINATION: VITAL SIGNS: Afebrile, pulse 73, respiration 20, blood pressure 144/62, pulse ox 100 percent on room air. GENERAL APPEARANCE: Lying in bed, looking much better this morning, awake. EYES: Pupils equal. Conjunctivae pale. HEENT: External appearance of nose and ears normal. Oral cavity normal. NECK: JVD not raised. Mass not palpable. RESPIRATORY: Effort normal. LUNGS: Fair entry. CARDIOVASCULAR: 1st and 2nd sounds normal. No edema. ABDOMEN: No tenderness. No guarding or rigidity. Bowel sounds are present. PSYCHIATRY: Alert and oriented x3. Mood and affect normal. INVESTIGATIONS: White count 21.2, hemoglobin 11, potassium 4.2. BUN 33, creatinine 2.36. Troponin 0.075 and 0.058. ASSESSMENT: 1. Acute urinary tract infection from acute cystitis causing severe sepsis, present on admission with both blood and urine culture showing gram-negative bacilli. 2. Lactic acidosis from severe sepsis with good clinical response. 3. Acute renal failure probably from acute tubular necrosis from sepsis with a prerenal component, slow to respond. 4. Acute metabolic acidosis. 5. Cadaver renal transplant 2016. 6. Diabetes mellitus type 2, chronically requiring insulin, uncontrolled with hypoglycemia. 7. Hyperlipidemia. 8. Essential hypertension. 9. Obesity; BMI 37.7. 10.Troponin leak from hemodynamic mismatch. The patient does not have acute coronary syndrome. PLAN: The patient has been switched from IV ceftriaxone to IV cefepime, getting IV fluids. The patient has shown clinical response. The patient being followed by multiple consultants. Care was discussed with the patient and the granddaughter at the bedside. Follow closely. MMODL / IJN: [id number] /
[2018-06-15 17:30] LABS: Glucose,Whole Blood 54 mg/dL (75-99)
[2018-06-15 18:08] LABS: Glucose,Whole Blood 74 mg/dL (75-99)
[2018-06-15 20:25] LABS: Glucose,Whole Blood 130 mg/dL (75-99)
[2018-06-15] MEDS: INSULIN DETEMIR 100 UNIT/ML 10 ML VIAL SQ SCH (21:50)
[2018-06-15] MEDS: ATORVASTATIN 10 MG TAB PO SCH (22:37)
[2018-06-16] MEDS: SODIUM CHLORIDE 0.9% 1,000 ML IV SCH ×2 (05:47→18:12)
[2018-06-16] MEDS: traMADol 50 MG TAB PO PRN ×3 (07:06→20:58)
[2018-06-16 07:10] LABS: Glucose,Whole Blood 198 mg/dL (75-99)
--- NOTE | 2018-06-16 07:27 | ECHOF ---
Referral Reason:check for wall motion abnormality MEASUREMENTS -------- HEIGHT: 162.6 cm WEIGHT: 93.4 kg BP: 109/62 RVIDd: 3.6 cm (< 3.3) IVSd: 1.6 cm (0.6 - 1.1) LVIDd: 3.6 cm (3.9 - 5.3) LVPWd: 1.3 cm (0.6 - 1.1) IVSs: 2.0 cm LVIDs: 2.0 cm LVPWs: 1.7 cm LA Diam: 4.2 cm (2.7 - 3.8) LAESV Index (A-L): 32.66 ml/m MV EXCURSION: 18.048 mm (> 18.000) MV EF SLOPE: 58 mm/s (70 - 150) EPSS: 0.3 cm MV E Baltazar: 0.66 m/s MV DecT: 349 ms MV A Baltazar: 1.10 m/s MV E/A Ratio: 0.61 RAP: 5.00 mmHg RVSP: 25.57 mmHg FINDINGS -------- Sinus rhythm. This was a technically adequate study. The left ventricular size is normal. There is moderate concentric left ventricular hypertrophy. O verall left ventricular systolic function is low-normal with, an EF between 50 - 55 %. Basal inferi or LV wall motion is hypokinetic. The right ventricle is normal in size. The left atrium is mildly dilated. LA is midly dilated 29-33ml/m2. The right atrial size is normal. There is mild aortic valve sclerosis. There is mild aortic regurgitation. Mild mitral annular calcification present. Mild mitral regurgitation is present. Mild tricuspid regurgitation present. There is no evidence of pulmonary hypertension. The right v entricular systolic pressure, as measured by Doppler, is 25.57mmHg. There is no pulmonic regurgitation present. The aortic root size is normal. Echo free space represents a pericardial fat pad. CONCLUSIONS -------- 1. The left ventricular size is normal. 2. There is moderate concentric left ventricular hypertrophy. 3. The right ventricle is normal in size. 4. The left atrium is mildly dilated. 5. LA is midly dilated 29-33ml/m2. 6. The right atrial size is normal. 7. There is mild aortic valve sclerosis. 8. There is mild aortic regurgitation. 9. Mild mitral annular calcification present. 10. Mild mitral regurgitation is present. 11. Mild tricuspid regurgitation present. 12. There is no evidence of pulmonary hypertension. 13. The right ventricular systolic pressure, as measured by Doppler, is 25.57mmHg. 14. There is no pulmonic regurgitation present. 15. The aortic root size is normal. 16. Echo free space represents a pericardial fat pad. WORKERS COMPENSATION SPECIALIST: Francine Hough RDCS
[2018-06-16 08:29] LABS: Basophils % (A) 0 %; Eosinophils % (A) 0 %; HCT 37.7 % (34.0-46.0); HGB 11.7 gm/dL (11.4-16.0); Hypochromasia Marked; Lymphocytes # (A) 0.6 k/uL (1.0-4.8); Lymphocytes % (A) 4 %; MCH 28.2 pg (25.0-35.0); MCV 90.9 fL (80.0-100.0); Mean Platelet Volume 9.9; Monocytes # (A) 0.7 k/uL (0-1.0); Monocytes % (A) 4 %; Neutrophils # (A) 15.6 k/uL (1.3-7.7); Neutrophils % (A) 91 %; Platelet Count 132 k/uL (150-450); RBC 4.15 m/uL (3.80-5.40); RDW 13.7 % (11.5-15.5); WBC 17.2 k/uL (3.8-10.6)
[2018-06-16] MEDS: ENOXAPARIN 40 MG/0.4 ML SYRINGE SQ SCH (08:39)
[2018-06-16] MEDS: INSULIN ASPART 100 UNIT/ML 1 ML 10 ML VIAL SQ SCH ×3 (08:39→17:27)
[2018-06-16] MEDS: SODIUM BICARBONATE TAB 650 MG TAB PO SCH ×3 (08:39→20:57)
[2018-06-16] MEDS: predniSONE 10 MG TAB PO SCH (08:40)
[2018-06-16] MEDS: MYCOPHENOLATE SODIUM DR 180 MG TABLET.DR PO SCH ×2 (08:40→20:57)
[2018-06-16] MEDS: FAMOTIDINE 20 MG TAB PO SCH (08:40)
[2018-06-16] MEDS: ASPIRIN 81 MG PO SCH (08:40)
[2018-06-16] MEDS: CARVEDILOL 12.5 MG TAB PO SCH ×2 (08:40→17:27)
[2018-06-16] MEDS: CEFEPIME 1 GM in SODIUM CHLORIDE 0.9% 50 ML IVPB SCH ×2 (08:40→20:59)
[2018-06-16] MEDS: TACROLIMUS 1 MG CAP PO SCH ×2 (08:40→20:58)
[2018-06-16] MEDS: LINACLOTIDE 145 MG PO SCH (08:41)
[2018-06-16 08:42] LABS: Calcium 9.3 mg/dL (8.4-10.2); Potassium 4.5 mmol/L (3.5-5.1)
[2018-06-16 12:11] LABS: Glucose,Whole Blood 172 mg/dL (75-99)
[2018-06-16 16:55] LABS: Glucose,Whole Blood 168 mg/dL (75-99)
[2018-06-16] MEDS: ACETAMINOPHEN TAB 325 MG TAB PO PRN (17:27)
--- NOTE | 2018-06-16 17:44 | PN ---
PROGRESS NOTE Patient is seen for followup for acute kidney injury secondary to sepsis and urinary tract infection. Patient's renal function has been improving. She is maintained on IV fluids. Serum creatinine had peaked at 2.3 and it is down to 1.9 today. Patient has a history of -donor renal transplant with baseline creatinine about 0.9 to 1.1 mg/dL. PHYSICAL EXAMINATION: On examination today, blood pressure was 179/92, heart rate of 76 per minute. Patient is afebrile. EXAMINATION OF THE HEART: S1, S2. EXAMINATION OF LUNGS: Bilateral breath sounds are heard. Decreased breath sounds at the bases. ABDOMEN: Soft, non-tender. Examination of lower extremities shows no evidence of edema. [facility] exam is grossly intact. LABS: Sodium 139, potassium 4.5, chloride 111, CO2 17, BUN 33, serum creatinine 1.9, hemoglobin 11.7 g/dL. ASSESSMENT: 1. Acute kidney injury secondary to sepsis, hypotension hypoperfusion, currently improving. 2. Urinary tract infection. Urine culture is growing E coli. Patient is maintained on antibiotics. 3. Gram-negative bacteremia with blood cultures growing Escherichia coli from urinary tract infection. 4. Status post -donor transplant in 2011, maintained on prednisone, Myfortic and Prograf. 5. Hypertension. Blood pressure had been low. This morning blood pressure was high. We will continue to monitor and we can resume Norvasc if blood pressure remains elevated. PLAN: Continue IV fluids. Repeat labs in a.m. Resume Norvasc if blood pressure remains elevated. MMODL / IJN: [id number] /
[2018-06-16] MEDS ORDERED: ARTIFICIAL TEARS-HYPROMELLOSE DROPS 15 ML BTL BOTH EYES PRN (18:51)
[2018-06-16 20:19] LABS: Glucose,Whole Blood 159 mg/dL (75-99)
[2018-06-16] MEDS: amLODIPine 10 MG TAB PO SCH (20:57)
[2018-06-16] MEDS: ATORVASTATIN 10 MG TAB PO SCH (20:57)
[2018-06-16] MEDS: INSULIN DETEMIR 100 UNIT/ML 10 ML VIAL SQ SCH (21:09)
--- NOTE | 2018-06-16 21:38 | PN ---
PROGRESS NOTE DATE OF SERVICE: 06/16/2018. PRESENTING COMPLAINT: Tired. INTERVAL HISTORY: This patient with renal transplant, has acute UTI, sepsis, acute renal failure. Continues to improve. Appetite is still not very good. Sitting up. Fever has come down. Making better urine. Had a Walsh catheter earlier. REVIEW OF SYSTEMS: Done for constitutional, cardiovascular, GI, pulmonary; relevant findings as above. CURRENT MEDICATIONS: Reviewed, that include IV cefepime, normal saline at 75 mL an hour, anti-rejection medications. PHYSICAL EXAMINATION: Temperature 98.1, pulse 71, respirations 16, blood pressure 154/73, pulse ox 100 percent on room air. GENERAL: Sitting up, looking much better, awake. EYES: Pupils equal. Conjunctivae pale. HEENT: External nose and ears normal. Oral cavity normal. NECK: JVD not raised. Mass not palpable. Respiratory effort normal. LUNGS: Clear. CARDIOVASCULAR: 1st and 2nd sounds normal. No edema. ABDOMEN: Soft, nontender. Liver and spleen not palpable. PSYCHIATRY: Alert and oriented x3. Mood and affect normal. INVESTIGATIONS: White count 17.2, potassium 4.5, BUN 33, creatinine 1.9, bicarb 17. ASSESSMENT: 1. Acute urinary tract infection causing severe sepsis, present on admission, with blood and urine culture growing E coli. 2. Lactic acidosis from severe sepsis with response. 3. Acute renal failure probably acute tubular necrosis from sepsis with a prerenal component, improving. 4. Acute metabolic acidosis. 5. Cadaver renal transplant in 2016. 6. Diabetes mellitus type 2, chronically requiring insulin, uncontrolled with hyperglycemia. 7. Hyperlipidemia. 8. Essential hypertension. 9. Obesity; BMI 37.7. 10.Troponin leak from hemodynamic mismatch. The patient does not have any acute coronary syndrome. PLAN: Continue current medication and treatment plan. IV fluids. Bicarb supplementation. The patient is slowly improving. Encouraged to ambulate and be out of bed. Will follow. MMODL / IJN: [id number] /
--- NOTE | 2018-06-16 23:45 | P.PN ---
Subjective Progress Note Date: 06/16/18 This is a 67-year-old -[place] female with past history significant for end-stage renal disease on previous hemodialysis, kidney transplant in 2011 from donor. Patient presented to [facility] emergency center on June 01 for flulike symptoms and body aches and right- sided abdominal pain and flank pain. She also had some nausea and vomiting and elevated blood sugar. She was afebrile, white count 11.5, BUN 15 creatinine 1.15. CAT scan of the abdomen and pelvis without contrast showed sigmoid diverticulosis without diverticulitis. Atrophic bilateral [place] kidneys with right lower quadrant transplant. There is a punctuate 1 mm density along the distal transplant ureter that could represent small surgical material or punctate calculus. There is mild ureteral prominence but no ari hydronephrosis. Few prominent fluid-filled small bowel loops in the left side of the upper to mid abdomen could represent regional enteritis. Moderate bilateral hip osteoarthritis advanced degenerative changes throughout the lumbar spine. Patient was giving morphine, Zofran and was discharged home on Tylenol No. 3. Patient states that she was not feeling any better after she left the hospital. She continued to have abdominal pain, body aches. No nausea or vomiting. She does state she had decreased appetite and has not been eating or drinking very much. She is complaining of chills and dysuria. She states she's had change in the color of her urine to a darker color and decreased output She came back into [facility] emergency center for evaluation on June 13 is found to have a white count of 21.4, BUN 22 and creatinine 1.5, lactic acid 2.7 and repeat 4.4. Temperature 102.3. Urinalysis was turbid, blood moderate, leukoesterase large, WBC greater than 182 , WBC clumps many, bacteria many. C. difficile toxin was negative. Chest x- ray shows no acute process. Patient received 2 L of IV fluid followed by another liter 150 mL per hour, magnesium was replaced, she received regular insulin and was given one dose of Rocephin and admitted to the [facility] floor. A- Team was called on her this morning due to mental status changes and low blood pressure of 95/54. Dr. Magaña is on consult and has ordered another 2 L bolus. Patient has had minimal urine output and Walsh catheter has been placed. Blood culture is gram-negative bacilli, urine culture in progress. No previous urine cultures/blood cultures are available for review. History is obtained from the patient and confirmed by patient's nurse and family members as patient is not reliable historian at this time. 06/16/2018 the patient is more awake and alert at this time. Still having some pain but overall is feeling better. Sepsis from urinary system has been isolated and E. coli is being followed. She is being seen by nephrology. With need for IV access and midline catheter was placed. Objective - Vital Signs Vital signs: Vital Signs Temp 97.9 F 06/16/18 19:15 Pulse 70 06/16/18 19:15 Resp 17 06/16/18 19:15 BP 151/67 06/16/18 19:15 Pulse Ox 100 06/16/18 19:15 Intake & Output 06/16/18 06/16/18 06/17/18 06:59 18:59 06:59 Intake Total 400 650 Output Total 1350 Balance -950 650 Intake: IV 600 Sodium Chloride 0.9% 1, 600 000 ml @ 75 mls/hr IV . [id number] [facility] Rx#:[id number] Intake, IV Titration 400 50 Amount Cefepime 1 gm In Sodium 50 Chloride 0.9% 50 ml @ 100 mls/hr IVPB Q12HR [facility] Rx #:[id number] Sodium Chloride 0.9% 1, 400 000 ml @ 75 mls/hr IV . [id number] [facility] Rx#:[id number] Output: Urine 1350 Other: Voiding Method Indwelling Catheter Indwelling Catheter - Exam Gen: This is a 67-year-old obese -[place] female. She is resting in bed. Patient is very anxious and somewhat confused during examination. HEENT: Head is atraumatic, normocephalic. Pupils equal, round. Sclerae is anicteric. NECK: Supple. No JVD. No lymphadenopathy. No thyromegaly. LUNGS: Scattered expiratory wheeze, tachypneic. No intercostal retractions. HEART: Regular rate and rhythm. No murmur. ABDOMEN: Soft. Bowel sounds are present. No masses. No tenderness. Right- sided abdominal scar noted. EXTREMITIES: No pedal edema. No calf tenderness. Dorsalis pedis +2 bilaterally. NEUROLOGICAL: Patient is awake, alert and oriented x2 - Labs CBC & Chem 7: 06/16/18 07:35 06/16/18 07:35 Labs: Abnormal Lab Results - Last 24 Hours (Table) 06/16/18 06/16/18 06/16/18 Range/Units 07:08 07:35 07:35 WBC 17.2 H (3.8-10.6) k/uL Plt Count 132 L (150-450) k/uL Neutrophils # 15.6 H (1.3-7.7) k/uL Lymphocytes # 0.6 L (1.0-4.8) k/uL Chloride 111 H (98-107) mmol/L Carbon Dioxide 17 L (22-30) mmol/L BUN 33 H (7-17) mg/dL Creatinine 1.90 H (0.52-1.04) mg/dL Glucose 204 H (74-99) mg/dL POC Glucose (mg/dL) 198 H (75-99) mg/dL 06/16/18 06/16/18 06/16/18 Range/Units 12:10 16:53 20:18 WBC (3.8-10.6) k/uL Plt Count (150-450) k/uL Neutrophils # (1.3-7.7) k/uL Lymphocytes # (1.0-4.8) k/uL Chloride (98-107) mmol/L Carbon Dioxide (22-30) mmol/L BUN (7-17) mg/dL Creatinine (0.52-1.04) mg/dL Glucose (74-99) mg/dL POC Glucose (mg/dL) 172 H 168 H 159 H (75-99) mg/dL Microbiology - Last 24 Hours (Table) 06/15/18 07:26 Blood Culture - Preliminary Blood No Growth after 24 hours 06/13/18 18:19 Blood Culture Gram Stain - Final Blood Blood Culture - Final Escherichia coli 06/13/18 19:30 Urine Culture - Final Urine,Voided Escherichia coli Assessment and Plan (1) Renal transplant recipient Current Visit: No Status: Acute Code(s): Z94.0 - KIDNEY TRANSPLANT STATUS SNOMED Code(s): 438362487 (2) Gram negative sepsis Narrative/Plan: 67-year-old woman status post renal transplant in 2013 from a nonrelated donor presents feeling very poorly with fever chills body aches bowel pain and flank pain. Also has some nausea and emesis and hyperglycemia. She was with leukocytosis, lactic acidosis and elevated creatinine above her baseline. At this time she still is having some altered mental status from what appears to be sepsis and possibly urinary system. Her white count still 22.5. Her creatinine did increase to 2.37. Lactic acid has improved. There was concerns to C. diff and this is coming back as negative. Laboratories now calling evidence of a positive blood culture with gram- negative bacilli. Patient was started on Rocephin. With her history of transplant in immunocompromise that also be concerns for the potential of Pseudomonas and constantly Rocephin will be transitioned to cefepime pending further culture data. Urine culture is still pending at this time. Nephrology is following 06/16/2018 the patient is slightly improved today. Mentation is improved. There is evidence of the E. coli in the urine and blood. We'll continue current antibiotic therapy with a marked clinical improvement until final cultures are available. Midline catheter was placed in does give the opportunity to complete a course of intravenous antibiotic therapy in the home setting. Follow-up cultures negative so far. Current Visit: Yes Status: Acute Code(s): A41.50 - GRAM-NEGATIVE SEPSIS, UNSPECIFIED SNOMED Code(s): 085821412
[2018-06-17] MEDS: ACETAMINOPHEN TAB 325 MG TAB PO PRN (00:30)
[2018-06-17] MEDS: SODIUM CHLORIDE 0.9% 1,000 ML IV SCH ×2 (05:50→17:35)
[2018-06-17] MEDS: traMADol 50 MG TAB PO PRN ×3 (05:52→17:34)
[2018-06-17 07:13] LABS: Glucose,Whole Blood 49 mg/dL (75-99)
[2018-06-17 07:29] LABS: Glucose,Whole Blood 40 mg/dL (75-99)
[2018-06-17] MEDS ORDERED: DEXTROSE 50%-WATER 50 ML SYRINGE IVP STA (07:29)
[2018-06-17] MEDS ORDERED: DEXTROSE 50%-WATER 50 ML SYRINGE IVP ONE (07:30)
[2018-06-17 08:07] LABS: Glucose,Whole Blood 125 mg/dL (75-99)
[2018-06-17 08:18] LABS: Calcium 9.2 mg/dL (8.4-10.2)
[2018-06-17 08:20] LABS: Potassium 4.9 mmol/L (3.5-5.1)
[2018-06-17] MEDS: INSULIN ASPART 100 UNIT/ML 1 ML 10 ML VIAL SQ SCH ×3 (09:56→17:35)
[2018-06-17] MEDS: CEFEPIME 1 GM in SODIUM CHLORIDE 0.9% 50 ML IVPB SCH ×2 (09:59→21:27)
[2018-06-17] MEDS: MYCOPHENOLATE SODIUM DR 180 MG TABLET.DR PO SCH ×2 (10:00→22:03)
[2018-06-17] MEDS: ASPIRIN 81 MG PO SCH (10:02)
[2018-06-17] MEDS: FAMOTIDINE 20 MG TAB PO SCH (10:02)
[2018-06-17] MEDS: SODIUM BICARBONATE TAB 650 MG TAB PO SCH ×3 (10:02→21:27)
[2018-06-17] MEDS: amLODIPine 10 MG TAB PO SCH (10:02)
[2018-06-17] MEDS: predniSONE 10 MG TAB PO SCH (10:03)
[2018-06-17] MEDS: CARVEDILOL 12.5 MG TAB PO SCH ×2 (10:03→17:35)
[2018-06-17] MEDS: ENOXAPARIN 30 MG/0.3 ML SYRINGE SQ SCH (10:04)
[2018-06-17] MEDS: TACROLIMUS 1 MG CAP PO SCH ×2 (10:05→22:03)
[2018-06-17] MEDS: LINACLOTIDE 145 MG PO SCH (10:05)
--- NOTE | 2018-06-17 11:01 | P.PN ---
Subjective Patient is seen in follow for acute allograft dysfunction. Renal function is improving with creatinine down to 1.53 today. Currently being treated for E. coli UTI and bacteremia. Admits to good urine output. Denies chest pain or shortness of breath. Vital signs are stable. General: The patient appeared well nourished and normally developed. HEENT: Head exam is unremarkable. Neck is without jugular venous distension. LUNGS: Lungs are clear to auscultation and percussion. Breath sounds decreased. HEART: Rate and Rhythm are regular. First and second heart sounds normal. No murmurs, rubs or gallops. ABDOMEN: Abdominal exam reveals normal bowel sounds. Non-tender and non- distended. No evidence of peritonitis. EXTREMITITES: No clubbing, cyanosis, or edema. Objective - Vital Signs Vital signs: Vital Signs Temp 97.7 F 06/17/18 07:19 Pulse 75 06/17/18 07:19 Resp 18 06/17/18 07:19 BP 157/84 06/17/18 07:19 Pulse Ox 99 06/17/18 07:19 Intake & Output 06/16/18 06/17/18 06/17/18 18:59 06:59 18:59 Intake Total 650 600 Output Total 1250 Balance 650 -650 Intake: IV 600 Sodium Chloride 0.9% 1, 600 000 ml @ 75 mls/hr IV . [id number] [facility] Rx#:[id number] Intake, IV Titration 50 600 Amount Cefepime 1 gm In Sodium 50 Chloride 0.9% 50 ml @ 100 mls/hr IVPB Q12HR [facility] Rx #:[id number] Sodium Chloride 0.9% 1, 600 000 ml @ 75 mls/hr IV . [id number] [facility] Rx#:[id number] Output: Urine 1250 Other: Voiding Method Indwelling Catheter Toilet # Bowel Movements 1 - Labs CBC & Chem 7: 06/16/18 07:35 06/17/18 07:33 Labs: Abnormal Lab Results - Last 24 Hours (Table) 06/16/18 06/16/18 06/16/18 Range/Units 12:10 16:53 20:18 Chloride (98-107) mmol/L Carbon Dioxide (22-30) mmol/L BUN (7-17) mg/dL Creatinine (0.52-1.04) mg/dL Glucose (74-99) mg/dL POC Glucose (mg/dL) 172 H 168 H 159 H (75-99) mg/dL 06/17/18 06/17/18 06/17/18 Range/Units 07:11 07:28 07:33 Chloride 113 H (98-107) mmol/L Carbon Dioxide 21 L (22-30) mmol/L BUN 30 H (7-17) mg/dL Creatinine 1.53 H (0.52-1.04) mg/dL Glucose 135 H (74-99) mg/dL POC Glucose (mg/dL) 49 L 40 L (75-99) mg/dL 06/17/18 Range/Units 08:05 Chloride (98-107) mmol/L Carbon Dioxide (22-30) mmol/L BUN (7-17) mg/dL Creatinine (0.52-1.04) mg/dL Glucose (74-99) mg/dL POC Glucose (mg/dL) 125 H (75-99) mg/dL Microbiology - Last 24 Hours (Table) 06/15/18 07:26 Blood Culture - Preliminary Blood No Growth after 48 hours 06/13/18 18:19 Blood Culture Gram Stain - Final Blood Blood Culture - Final Escherichia coli Assessment and Plan Plan: Assessment: 1. Acute allograft dysfunction secondary to ATN secondary to sepsis. Renal function improving. 2. E. coli UTI and bacteremia. Maintained on antibiotics. 3. Status post DDA in 2011. 4. Benign hypertension. 5. Metabolic acidosis secondary to acute kidney injury maintained on oral sodium bicarbonate. 6. Insulin-dependent diabetes mellitus. Plan: Maintain current immunosuppression medications. Avoid nephrotoxins. Continue normal saline at 75 mL an hour for now. Repeat electrolytes in the morning.
[2018-06-17 11:50] LABS: Glucose,Whole Blood 129 mg/dL (75-99)
[2018-06-17 17:13] LABS: Glucose,Whole Blood 270 mg/dL (75-99)
[2018-06-17 20:04] LABS: Glucose,Whole Blood 192 mg/dL (75-99)
[2018-06-17] MEDS: INSULIN DETEMIR 100 UNIT/ML 10 ML VIAL SQ SCH (21:27)
[2018-06-17] MEDS: ATORVASTATIN 10 MG TAB PO SCH (21:27)
[2018-06-18 02:29] LABS: Glucose,Whole Blood 49 mg/dL (75-99)
[2018-06-18 02:29] LABS: Glucose,Whole Blood 48 mg/dL (75-99)
[2018-06-18 02:47] LABS: Glucose,Whole Blood 49 mg/dL (75-99)
[2018-06-18 03:21] LABS: Glucose,Whole Blood 69 mg/dL (75-99)
[2018-06-18 03:27] LABS: Calcium 9.8 mg/dL (8.4-10.2); Magnesium 1.6 mg/dL (1.6-2.3); Potassium 4.2 mmol/L (3.5-5.1)
[2018-06-18 03:41] LABS: Glucose,Whole Blood 68 mg/dL (75-99)
[2018-06-18 04:51] LABS: Glucose,Whole Blood 98 mg/dL (75-99)
--- NOTE | 2018-06-18 06:42 | PN ---
PROGRESS NOTE OF SERVICE: 06/17/2018 PRESENTING COMPLAINT: Tired. INTERVAL HISTORY: The patient with renal transplant has an acute UTI, sepsis, acute renal failure. Continues to do better except appetite has not been good. Has been out of bed and making good urine. REVIEW OF SYSTEMS: Done for constitutional, cardiovascular, GI, pulmonary; relevant findings as above. CURRENT MEDICATIONS: Reviewed that include IV cefepime and normal saline. PHYSICAL EXAMINATION: Temperature 98, pulse 69, respirations 16, blood pressure 164/79, pulse ox 99% on room air. GENERAL APPEARANCE: Sitting up comfortable. EYES: Pupils equal. Conjunctivae pale. NECK: JVD not raised. Mass not palpable. Respiratory effort normal. LUNGS: Decreased breath sounds. CARDIOVASCULAR: First and second sounds normal. No edema. ABDOMEN: Soft, nontender. Liver and spleen not palpable. PSYCHIATRY: Alert and oriented x3. Mood and affect normal. INVESTIGATIONS: Potassium 4.9, bicarb 21, BUN 30, creatinine 1.53. ASSESSMENT: 1. Acute urinary tract infection causing severe sepsis, present on admission with blood and urine cultures growing Escherichia coli. 2. Lactic acidosis from his from severe sepsis, good response. 3. Acute renal failure probably acute tubular necrosis from sepsis with prerenal component, slowly improving. 4. Acute metabolic acidosis. 5. Coronary artery disease with renal transplant in 2016. 6. Diabetes mellitus type 2, chronically requiring insulin, uncontrolled with hyperglycemia. 7. Hyperlipidemia. 8. Essential hypertension. 9. Obesity; BMI 37.7. 10.Troponin leak from hemodynamic mismatch. Not acute coronary syndrome. PLAN: Patient overall is doing better encouraged to encouraged to increase oral intake. The patient did drop the sugar this morning. The Lantus should be considered to a dropped foot. MMODL / IJN: [id number] /
[2018-06-18 07:08] LABS: Glucose,Whole Blood 70 mg/dL (75-99)
[2018-06-18] MEDS: traMADol 50 MG TAB PO PRN ×3 (08:05→23:32)
[2018-06-18] MEDS: SODIUM CHLORIDE 0.9% 1,000 ML IV SCH ×2 (08:07→17:12)
[2018-06-18] MEDS: CEFEPIME 1 GM in SODIUM CHLORIDE 0.9% 50 ML IVPB SCH ×2 (08:07→23:32)
[2018-06-18] MEDS: INSULIN ASPART 100 UNIT/ML 1 ML 10 ML VIAL SQ SCH ×3 (08:10→18:19)
--- NOTE | 2018-06-18 10:35 | P.PN ---
Subjective Patient is seen in follow-up for acute allograft dysfunction. Renal function is improving with creatinine down to 1.35 today. Currently being treated for E. coli UTI and bacteremia. Admits to good urine output. Denies chest pain or shortness of breath. Blood sugars were low yesterday. Insulin was adjusted. Oral intake is fair. Vital signs are stable. General: The patient appeared well nourished and normally developed. HEENT: Head exam is unremarkable. Neck is without jugular venous distension. LUNGS: Lungs are clear to auscultation and percussion. Breath sounds decreased. HEART: Rate and Rhythm are regular. First and second heart sounds normal. No murmurs, rubs or gallops. ABDOMEN: Abdominal exam reveals normal bowel sounds. Non-tender and non- distended. No evidence of peritonitis. EXTREMITITES: No clubbing, cyanosis, or edema. Objective - Vital Signs Vital signs: Vital Signs Temp 98.7 F 06/18/18 07:55 Pulse 71 06/18/18 07:55 Resp 17 06/18/18 07:55 BP 163/83 06/18/18 07:55 Pulse Ox 97 06/18/18 07:55 Intake & Output 06/17/18 06/18/18 06/18/18 18:59 06:59 18:59 Intake Total 350 1150 Output Total 900 Balance -550 1150 Weight 93.5 kg Intake: IV 225 Sodium Chloride 0.9% 1, 225 000 ml @ 75 mls/hr IV . [id number] [facility] Rx#:[id number] Intake, IV Titration 50 675 Amount Cefepime 1 gm In Sodium 50 150 Chloride 0.9% 50 ml @ 100 mls/hr IVPB Q12HR [facility] Rx #:[id number] Sodium Chloride 0.9% 1, 525 000 ml @ 75 mls/hr IV . [id number] [facility] Rx#:[id number] Oral 300 250 Output: Urine 900 Other: Voiding Method Toilet Toilet - Labs CBC & Chem 7: 06/16/18 07:35 06/18/18 02:59 Labs: Abnormal Lab Results - Last 24 Hours (Table) 06/17/18 06/17/18 06/17/18 Range/Units 11:49 17:12 20:02 Chloride (98-107) mmol/L BUN (7-17) mg/dL Creatinine (0.52-1.04) mg/dL Glucose (74-99) mg/dL POC Glucose (mg/dL) 129 H 270 H 192 H (75-99) mg/dL 06/18/18 06/18/18 06/18/18 Range/Units 02:24 02:28 02:42 Chloride (98-107) mmol/L BUN (7-17) mg/dL Creatinine (0.52-1.04) mg/dL Glucose (74-99) mg/dL POC Glucose (mg/dL) 49 L 48 L 49 L (75-99) mg/dL 06/18/18 06/18/18 06/18/18 Range/Units 02:59 03:19 03:39 Chloride 109 H (98-107) mmol/L BUN 26 H (7-17) mg/dL Creatinine 1.35 H (0.52-1.04) mg/dL Glucose 58 L (74-99) mg/dL POC Glucose (mg/dL) 69 L 68 L (75-99) mg/dL 06/18/18 Range/Units 07:07 Chloride (98-107) mmol/L BUN (7-17) mg/dL Creatinine (0.52-1.04) mg/dL Glucose (74-99) mg/dL POC Glucose (mg/dL) 70 L (75-99) mg/dL Microbiology - Last 24 Hours (Table) 06/15/18 07:26 Blood Culture - Preliminary Blood No Growth after 72 hours Assessment and Plan Plan: Assessment: 1. Acute allograft dysfunction secondary to ATN secondary to sepsis. Renal function improving. 2. E. coli UTI and bacteremia. Maintained on antibiotics. 3. Status post DDA in 2011. 4. Benign hypertension. Blood pressures on the higher side. 5. Metabolic acidosis secondary to acute kidney injury maintained on oral sodium bicarbonate. 6. Insulin-dependent diabetes mellitus. Plan: Maintain current immunosuppression medications. Avoid nephrotoxins. Continue normal saline at 75 mL an hour for now. Repeat electrolytes in the morning. Decrease oral bicarbonate to twice daily. Resume Cozaar 25 mg daily.
[2018-06-18] MEDS: ENOXAPARIN 30 MG/0.3 ML SYRINGE SQ SCH (10:53)
[2018-06-18] MEDS: amLODIPine 10 MG TAB PO SCH (10:53)
[2018-06-18] MEDS: MAGNESIUM SULFATE-D5W PMX 1 GM in DEXTROSE/WATER 1 100ML.BAG IVPB SCH ×4 (10:53→22:13)
[2018-06-18] MEDS: CARVEDILOL 12.5 MG TAB PO SCH ×2 (10:54→18:18)
[2018-06-18] MEDS: FAMOTIDINE 20 MG TAB PO SCH (10:54)
[2018-06-18] MEDS: predniSONE 10 MG TAB PO SCH (10:54)
[2018-06-18] MEDS: ASPIRIN 81 MG PO SCH (10:54)
[2018-06-18] MEDS: MYCOPHENOLATE SODIUM DR 180 MG TABLET.DR PO SCH ×2 (10:57→21:08)
[2018-06-18] MEDS: TACROLIMUS 1 MG CAP PO SCH ×2 (10:57→21:07)
[2018-06-18] MEDS: LINACLOTIDE 145 MG PO SCH (10:59)
[2018-06-18] MEDS: LOSARTAN 25 MG TAB PO SCH (11:02)
[2018-06-18] MEDS: ACETAMINOPHEN TAB 325 MG TAB PO PRN (11:02)
[2018-06-18] MEDS: SODIUM BICARBONATE TAB 650 MG TAB PO SCH ×2 (11:23→21:08)
[2018-06-18 12:03] LABS: Glucose,Whole Blood 53 mg/dL (75-99)
[2018-06-18 12:24] LABS: Glucose,Whole Blood 48 mg/dL (75-99)
[2018-06-18] MEDS ORDERED: DEXTROSE 5%-0.9% NACL 1,000 ML IV SCH (12:30)
[2018-06-18 12:46] LABS: Glucose,Whole Blood 63 mg/dL (75-99)
[2018-06-18 13:10] LABS: Glucose,Whole Blood 61 mg/dL (75-99)
[2018-06-18 13:27] LABS: Glucose,Whole Blood 69 mg/dL (75-99)
[2018-06-18 14:29] LABS: Glucose,Whole Blood 119 mg/dL (75-99)
[2018-06-18 17:06] LABS: Glucose,Whole Blood 180 mg/dL (75-99)
[2018-06-18 20:39] LABS: Glucose,Whole Blood 250 mg/dL (75-99)
[2018-06-18] MEDS ORDERED: INSULIN DETEMIR 100 UNIT/ML 10 ML VIAL SQ SCH (21:00)
[2018-06-18] MEDS: INSULIN DETEMIR 100 UNIT/ML 10 ML VIAL SQ SCH (21:08)
[2018-06-18] MEDS: ATORVASTATIN 10 MG TAB PO SCH (21:08)
--- NOTE | 2018-06-19 01:21 | PN ---
PROGRESS NOTE DATE OF SERVICE: June 18, 2018. PRESENTING COMPLAINT: Tired. INTERVAL HISTORY: This patient with renal transplant presented with acute UTI, sepsis, acute renal failure. This morning he has became hypoglycemic again, has not been eating much, otherwise has been out of bed. Overall feeling better with fair urine output. REVIEW OF SYSTEMS: Done for constitutional, cardiovascular, GI, pulmonary and relevant findings as above. CURRENT MEDICATIONS: Reviewed that include IV cefepime, normal saline. PHYSICAL EXAMINATION: VITAL SIGNS: Temperature 98.7, pulse 73, respirations 16, blood pressure 146/79, pulse ox 99% on room air. GENERAL APPEARANCE: Sitting up, comfortable. EYES: Pupil equal. Conjunctivae pale. NECK: JVD not raised. Mass not palpable. RESPIRATORY: Effort increased. LUNGS: Decreased breath sounds. CARDIOVASCULAR: 1st and 2nd sounds normal. No edema. ABDOMEN: Soft, nontender. Liver and spleen not palpable. PSYCHIATRY: Alert and oriented x3. Mood and affect normal. INVESTIGATIONS: Accu-Cheks this morning. 70, 53, and 48, BUN 26, creatinine 1.35. ASSESSMENT: 1. Acute urinary tract infection causing severe sepsis, present on admission with blood and urine cultures growing E coli. 2. Lactic acidosis from severe sepsis. Good response. 3. Acute renal failure probably acute tubular necrosis from sepsis and prerenal, improving. 4. Acute metabolic acidosis. 5. Coronary artery disease with renal transplant in 2016. 6. Diabetes mellitus type 2, chronically requiring insulin, uncontrolled with hyperglycemia and hypoglycemia. 7. Hyperlipidemia. 8. Essential hypertension. 9. Obesity; BMI 37.7. 10.Troponin leak from hemodynamic mismatch. No acute coronary syndrome. PLAN: Patient encouraged to increase oral intake. Dose of insulin has been cut back. The patient hopefully should be able to be switched over to Keflex, p.o. antibiotics by the time of discharge. Per Dr. Carrasco, patient may require IV antibiotics. MMODL / IJN: [id number] /
[2018-06-19 01:58] LABS: Glucose,Whole Blood 204 mg/dL (75-99)
[2018-06-19 06:54] LABS: Glucose,Whole Blood 110 mg/dL (75-99)
[2018-06-19] MEDS: INSULIN ASPART 100 UNIT/ML 1 ML 10 ML VIAL SQ SCH ×3 (06:57→18:23)
[2018-06-19] MEDS: traMADol 50 MG TAB PO PRN ×2 (07:07→20:29)
[2018-06-19] MEDS: CARVEDILOL 12.5 MG TAB PO SCH ×2 (07:07→18:24)
[2018-06-19 08:12] LABS: Calcium 9.4 mg/dL (8.4-10.2); Magnesium 2.1 mg/dL (1.6-2.3); Potassium 4.5 mmol/L (3.5-5.1)
[2018-06-19] MEDS: ONDANSETRON 4 MG/2 ML VIAL IVP PRN (10:16)
[2018-06-19] MEDS: SODIUM BICARBONATE TAB 650 MG TAB PO SCH ×2 (10:17→20:23)
[2018-06-19] MEDS: FAMOTIDINE 20 MG TAB PO SCH (10:17)
[2018-06-19] MEDS: amLODIPine 10 MG TAB PO SCH (10:17)
[2018-06-19] MEDS: ENOXAPARIN 30 MG/0.3 ML SYRINGE SQ SCH (10:18)
[2018-06-19] MEDS: LOSARTAN 25 MG TAB PO SCH (10:18)
[2018-06-19] MEDS: predniSONE 10 MG TAB PO SCH (10:18)
[2018-06-19] MEDS: ASPIRIN 81 MG PO SCH (10:18)
[2018-06-19] MEDS: TACROLIMUS 1 MG CAP PO SCH ×2 (10:18→20:23)
[2018-06-19] MEDS: SODIUM CHLORIDE 0.9% 1,000 ML IV SCH ×2 (10:20→21:14)
[2018-06-19] MEDS: MYCOPHENOLATE SODIUM DR 180 MG TABLET.DR PO SCH ×2 (10:21→20:22)
[2018-06-19] MEDS: CEFEPIME 1 GM in SODIUM CHLORIDE 0.9% 50 ML IVPB SCH ×2 (10:25→20:23)
[2018-06-19] MEDS: LINACLOTIDE 145 MG PO SCH (10:26)
[2018-06-19 11:46] LABS: Glucose,Whole Blood 55 mg/dL (75-99)
--- NOTE | 2018-06-19 11:57 | XR ---
EXAMINATION TYPE: XR abdomen 1V DATE OF EXAM: 06/19/2018 11:35 AM CLINICAL HISTORY: Left-sided central abdominal pain. History of urinary tract infection. TECHNIQUE: Single supine KUB image of the abdomen is obtained. COMPARISON: CT abdomen pelvis dated 06/01/2018 FINDINGS: Right upper quadrant cholecystectomy clips are noted. Extensive degenerative changes are se en of the thoracolumbar spine. Atherosclerosis of the femoral arteries are noted. Moderate femoral ac etabular arthropathy is seen. There is no dilated large or small bowel. Multiple calcifications within the pelvis likely relate to phleboliths. The previously seen possible punctate right ureteral calculus within the transplant kidn ey ureter in the right lower quadrant cannot be radiographically from the phleboliths. IMPRESSION: 1. The previously questioned punctate right ureteral calculi on the right lower quadrant transplant [place] is not separable radiographically from multiple pelvic phleboliths. Ultrasound could assess for hydronephrosis at there is further clinical concern. 2. Nonobstructive bowel gas pattern.
[2018-06-19 12:19] LABS: Glucose,Whole Blood 51 mg/dL (75-99)
[2018-06-19 13:07] LABS: Glucose,Whole Blood 84 mg/dL (75-99)
--- NOTE | 2018-06-19 14:56 | PN ---
PROGRESS NOTE Patient is seen for followup for acute kidney injury. She is currently sitting up in a bedside chair. Patient states she is having pain on the left side of her abdomen. She has also been nauseated and denies any other complaints. No chest pains. Patient has been voiding well. PHYSICAL EXAMINATION: Blood pressure is 152/68, heart rate 86 per minute. She is afebrile. Examination of the heart, S1, S2. Examination of the lungs, bilateral breath sounds are heard. Abdomen is soft, nontender. Examination of the lower extremities shows no evidence of edema. LABS: Show sodium 139, potassium 4, chloride 109, BUN 20, serum creatinine 1.1 mg/dL. ASSESSMENT: 1. Acute kidney injury secondary to sepsis, hypotension, hypoperfusion currently significantly improved. 2. Status post -donor transplant 2011. Maintained on Myfortic, prednisone and Prograf. 3. Sepsis with gram-negative bacteremia from Escherichia coli and from urinary tract infection. 4. Nausea and vague abdominal pain. We will check an abdominal x-ray. PLAN: Continue to encourage increased oral intake. Repeat labs in a.m. Check an abdominal x- ray. Continue with the Cozaar for now. MMODL / IJN: [id number] /
[2018-06-19 17:21] LABS: Glucose,Whole Blood 241 mg/dL (75-99)
[2018-06-19] MEDS: DEXTROSE 5%-0.9% NACL 1,000 ML IV SCH ×2 (18:24→23:41)
[2018-06-19] MEDS: ATORVASTATIN 10 MG TAB PO SCH (20:23)
[2018-06-19 20:52] LABS: Glucose,Whole Blood 192 mg/dL (75-99)
[2018-06-19] MEDS: INSULIN DETEMIR 100 UNIT/ML 10 ML VIAL SQ SCH (21:13)
--- NOTE | 2018-06-19 23:50 | PN ---
PROGRESS NOTE DATE OF SERVICE: 06/19/2018 PRESENTING COMPLAINT: Tired. INTERVAL HISTORY: The patient renal transplant presented with acute UTI, sepsis, acute renal failure. The patient has not been eating and sugars are tending to run low, even though insulin was cut back. Family is at the bedside. The patient has been out of bed. REVIEW OF SYSTEMS: Done for constitutional, cardiovascular, GI, pulmonary; relevant findings as above. CURRENT MEDICATIONS: Reviewed that include IV cefepime, normal saline. PHYSICAL EXAMINATION: VITAL SIGNS: Temperature 98.8, pulse 98, respiration 16, blood pressure 130/76, pulse ox 98% on 2 L. GENERAL APPEARANCE: Lying in bed, awake. EYES: Pupils equal. Conjunctivae pale. NECK: JVD not raised. Mass not palpable. RESPIRATORY: Effort. LUNGS: Are decreased breath sounds. CARDIOVASCULAR: 1st and 2nd sounds, no edema. ABDOMEN: Soft, nontender. Liver and spleen not palpable. PSYCHIATRY: Alert and oriented x3. Mood and affect normal. INVESTIGATIONS: Accu-Cheks were 55 and 51 and went up to 241. ASSESSMENT: 1. Acute urinary tract infection from cystitis causing severe sepsis, present on admission with blood and urine cultures growing E coli. 2. Lactic acidosis from severe sepsis, good response. 3. Acute renal failure probably acute tubular necrosis from sepsis, prerenal much improved. 4. Acute metabolic acidosis. 5. Coronary artery disease with renal transplant in 2016. 6. Diabetes mellitus type 2, chronically requiring insulin, uncontrolled with both hyper and hypoglycemia. 7. Hyperlipidemia. 8. Essential hypertension. 9. Obesity; BMI 37.7. 10.Troponin leak from hemodynamic mismatch. No acute coronary syndrome. The patient was encouraged to increase oral and family was asked to help with this. If not, we will have to cut back on insulin even further. MMODL / IJN: [id number] /
--- NOTE | 2018-06-20 00:18 | P.PN ---
Subjective Progress Note Date: 06/20/18 This is a 67-year-old -[place] female with past history significant for end-stage renal disease on previous hemodialysis, kidney transplant in 2011 from donor. Patient presented to [facility] emergency center on June 01 for flulike symptoms and body aches and right- sided abdominal pain and flank pain. She also had some nausea and vomiting and elevated blood sugar. She was afebrile, white count 11.5, BUN 15 creatinine 1.15. CAT scan of the abdomen and pelvis without contrast showed sigmoid diverticulosis without diverticulitis. Atrophic bilateral [place] kidneys with right lower quadrant transplant. There is a punctuate 1 mm density along the distal transplant ureter that could represent small surgical material or punctate calculus. There is mild ureteral prominence but no ari hydronephrosis. Few prominent fluid-filled small bowel loops in the left side of the upper to mid abdomen could represent regional enteritis. Moderate bilateral hip osteoarthritis advanced degenerative changes throughout the lumbar spine. Patient was giving morphine, Zofran and was discharged home on Tylenol No. 3. Patient states that she was not feeling any better after she left the hospital. She continued to have abdominal pain, body aches. No nausea or vomiting. She does state she had decreased appetite and has not been eating or drinking very much. She is complaining of chills and dysuria. She states she's had change in the color of her urine to a darker color and decreased output She came back into [facility] emergency center for evaluation on June 13 is found to have a white count of 21.4, BUN 22 and creatinine 1.5, lactic acid 2.7 and repeat 4.4. Temperature 102.3. Urinalysis was turbid, blood moderate, leukoesterase large, WBC greater than 182 , WBC clumps many, bacteria many. C. difficile toxin was negative. Chest x- ray shows no acute process. Patient received 2 L of IV fluid followed by another liter 150 mL per hour, magnesium was replaced, she received regular insulin and was given one dose of Rocephin and admitted to the [facility] floor. A- Team was called on her this morning due to mental status changes and low blood pressure of 95/54. Dr. Magaña is on consult and has ordered another 2 L bolus. Patient has had minimal urine output and Walsh catheter has been placed. Blood culture is gram-negative bacilli, urine culture in progress. No previous urine cultures/blood cultures are available for review. History is obtained from the patient and confirmed by patient's nurse and family members as patient is not reliable historian at this time. 06/16/2018 the patient is more awake and alert at this time. Still having some pain but overall is feeling better. Sepsis from urinary system has been isolated and E. coli is being followed. She is being seen by nephrology. With need for IV access and midline catheter was placed. June 19 2018. Patient is having improvement. E. coli has been isolated. Request for outpatient antibiotic therapy. Objective - Vital Signs Vital signs: Vital Signs Temp 99.9 F H 06/19/18 19:35 Pulse 85 06/19/18 19:35 Resp 17 06/19/18 19:35 BP 141/70 06/19/18 19:35 Pulse Ox 97 06/19/18 19:35 Intake & Output 06/19/18 06/19/18 06/20/18 06:59 18:59 06:59 Intake Total 150 500 450 Balance 150 500 450 Intake: Intake, IV Titration 150 500 350 Amount Cefepime 1 gm In Sodium 100 Chloride 0.9% 50 ml @ 100 mls/hr IVPB Q12HR [facility] Rx #:[id number] Dextrose 5%-0.9% NaCl 1, 400 350 000 ml @ 100 mls/hr IV . Q10H [facility] Rx#:[id number] Sodium Chloride 0.9% 1, 150 000 ml @ 75 mls/hr IV . [id number] [facility] Rx#:[id number] Oral 100 Other: # Voids 1 - Exam Gen: This is a 67-year-old obese -[place] female. She is resting in bed. Patient is very anxious and somewhat confused during examination. HEENT: Head is atraumatic, normocephalic. Pupils equal, round. Sclerae is anicteric. NECK: Supple. No JVD. No lymphadenopathy. No thyromegaly. LUNGS: Scattered expiratory wheeze, tachypneic. No intercostal retractions. HEART: Regular rate and rhythm. No murmur. ABDOMEN: Soft. Bowel sounds are present. No masses. No tenderness. Right- sided abdominal scar noted. EXTREMITIES: No pedal edema. No calf tenderness. Dorsalis pedis +2 bilaterally. NEUROLOGICAL: Patient is awake, alert and oriented x2 - Labs CBC & Chem 7: 06/16/18 07:35 06/19/18 06:15 Labs: Abnormal Lab Results - Last 24 Hours (Table) 06/19/18 06/19/18 06/19/18 Range/Units 01:57 06:15 06:53 Chloride 109 H (98-107) mmol/L BUN 20 H (7-17) mg/dL Creatinine 1.10 H (0.52-1.04) mg/dL Glucose 112 H (74-99) mg/dL POC Glucose (mg/dL) 204 H 110 H (75-99) mg/dL 06/19/18 06/19/18 06/19/18 Range/Units 11:35 12:01 17:10 Chloride (98-107) mmol/L BUN (7-17) mg/dL Creatinine (0.52-1.04) mg/dL Glucose (74-99) mg/dL POC Glucose (mg/dL) 55 L 51 L 241 H (75-99) mg/dL 06/19/18 Range/Units 20:41 Chloride (98-107) mmol/L BUN (7-17) mg/dL Creatinine (0.52-1.04) mg/dL Glucose (74-99) mg/dL POC Glucose (mg/dL) 192 H (75-99) mg/dL Microbiology - Last 24 Hours (Table) 06/15/18 07:26 Blood Culture - Preliminary Blood No Growth after 96 hours Laboratory Results WBC 17.2 k/uL (3.8-10.6) H 06/16/18 07:35 RBC 4.15 m/uL (3.80-5.40) 06/16/18 07:35 Hgb 11.7 gm/dL (11.4-16.0) 06/16/18 07:35 Hct 37.7 % (34.0-46.0) 06/16/18 07:35 MCV 90.9 fL (80.0-100.0) 06/16/18 07:35 MCH 28.2 pg (25.0-35.0) 06/16/18 07:35 MCHC 31.0 g/dL (31.0-37.0) 06/16/18 07:35 RDW 13.7 % (11.5-15.5) 06/16/18 07:35 Plt Count 132 k/uL (150-450) L 06/16/18 07:35 Neutrophils % 91 % 06/16/18 07:35 Neutrophils % (Manual) 70 % 06/13/18 18:19 Band Neutrophils % 18 % 06/13/18 18:19 Lymphocytes % 4 % 06/16/18 07:35 Lymphocytes % (Manual) 8 % 06/13/18 18:19 Monocytes % 4 % 06/16/18 07:35 Monocytes % (Manual) 3 % 06/13/18 18:19 Eosinophils % 0 % 06/16/18 07:35 Basophils % 0 % 06/16/18 07:35 Metamyelocytes % 2 % 06/13/18 18:19 Myelocytes % 1 % 06/13/18 18:19 Neutrophils # 15.6 k/uL (1.3-7.7) H 06/16/18 07:35 Neutrophils # (Manual) 18.80 k/uL (1.3-7.7) H 06/13/18 18:19 Lymphocytes # 0.6 k/uL (1.0-4.8) L 06/16/18 07:35 Lymphocytes # (Manual) 1.71 k/uL (1.0-4.8) 06/13/18 18:19 Monocytes # 0.7 k/uL (0-1.0) 06/16/18 07:35 Monocytes # (Manual) 0.64 k/uL (0-1.0) 06/13/18 18:19 Eosinophils # 0.0 k/uL (0-0.7) 06/16/18 07:35 Basophils # 0.0 k/uL (0-0.2) 06/16/18 07:35 Metamyelocytes # (Man) 0.43 k/uL (0) H 06/13/18 18:19 Myelocytes # (Manual) 0.21 k/uL (0) H 06/13/18 18:19 Nucleated RBCs 0 /100 WBC (0-0) 06/13/18 18:19 Manual Slide Review Performed 06/13/18 18:19 Polychromasia Present 06/13/18 18:19 Hypochromasia Marked 06/16/18 07:35 Anisocytosis (manual) Present 06/13/18 18:19 Sodium 139 mmol/L (137-145) 06/19/18 06:15 Potassium 4.5 mmol/L (3.5-5.1) 06/19/18 06:15 Chloride 109 mmol/L (98-107) H 06/19/18 06:15 Carbon Dioxide 23 mmol/L (22-30) 06/19/18 06:15 Anion Gap 7 mmol/L 06/19/18 06:15 BUN 20 mg/dL (7-17) H 06/19/18 06:15 Creatinine 1.10 mg/dL (0.52-1.04) H 06/19/18 06:15 Est GFR (CKD-EPI)AfAm 60 (>60 ml/min/1.73 sqM) 06/19/18 06:15 Est GFR (CKD-EPI)NonAf 52 (>60 ml/min/1.73 sqM) 06/19/18 06:15 Glucose 112 mg/dL (74-99) H 06/19/18 06:15 POC Glucose (mg/dL) 192 mg/dL (75-99) H 06/19/18 20:41 POC Glu Import/Export Administrator ID Jaquan Monroy 06/19/18 20:[address] Glu mg/dL 197 06/13/18 18:19 Hemoglobin A1c 8.5 % (4.0-6.0) H 06/13/18 18:19 Lactic Ac Sepsis Rflx Y 06/14/18 16:26 Plasma Lactic Acid David 1.0 mmol/L (0.7-2.0) 06/14/18 19:55 Calcium 9.4 mg/dL (8.4-10.2) 06/19/18 06:15 Magnesium 2.1 mg/dL (1.6-2.3) 06/19/18 06:15 Total Bilirubin 0.7 mg/dL (0.2-1.3) 06/13/18 17:01 AST 14 U/L (14-36) 06/13/18 17:01 ALT 21 U/L (9-52) 06/13/18 17:01 Alkaline Phosphatase 85 U/L (38-126) 06/13/18 17:01 Ammonia <9 umol/L (<30) 06/13/18 18:19 Total Creatine Kinase 33 U/L (30-135) 06/13/18 17:01 CK-MB (CK-2) <0.2 ng/mL (0.0-2.4) 06/13/18 17:01 CK-MB (CK-2) Rel Index 06/13/18 17:01 Troponin I 0.058 ng/mL (0.000-0.034) H* 06/15/18 13:16 NT-Pro-B Natriuret Pep 3340 pg/mL 06/13/18 18:19 Total Protein 5.6 g/dL (6.3-8.2) L 06/13/18 17:01 Albumin 3.1 g/dL (3.5-5.0) L 06/13/18 17:01 Amylase <30 U/L (30-110) L 06/13/18 17:01 Lipase 13 U/L (23-300) L 06/13/18 17:01 Urine Color Yellow 06/13/18 19:30 Urine Appearance Turbid (Clear) H 06/13/18 19:30 Urine pH 6.0 (5.0-8.0) 06/13/18 19:30 Ur Specific [place] 1.011 (1.001-1.035) 06/13/18 19:30 Urine Protein 3+ (Negative) H 06/13/18 19:30 Urine Glucose (UA) 4+ (Negative) H 06/13/18 19:30 Urine Ketones Negative (Negative) 06/13/18 19:30 Urine Blood Moderate (Negative) H 06/13/18 19:30 Urine Nitrite Negative (Negative) 06/13/18 19:30 Urine Bilirubin Negative (Negative) 06/13/18 19:30 Urine Urobilinogen <2.0 mg/dL (<2.0) 06/13/18 19:30 Ur Leukocyte Esterase Large (Negative) H 06/13/18 19:30 Urine RBC 31 /hpf (0-5) H 06/13/18 19:30 Urine WBC >182 /hpf (0-5) H 06/13/18 19:30 Urine WBC Clumps Many /hpf (None) H 06/13/18 19:30 Ur Squamous Epith Cells 3 /hpf (0-4) 06/13/18 19:30 Urine Bacteria Many /hpf (None) H 06/13/18 19:30 C. difficile (EIA) Intrp Negative (Negative) 06/14/18 03:45 Microbiology 06/15/18 07:26 Blood Blood Culture - Preliminary No Growth after 96 hours 06/13/18 18:19 Blood Blood Culture Gram Stain - Final 06/13/18 18:19 Blood Blood Culture - Final Escherichia coli 06/13/18 19:30 Urine,Voided Urine Culture - Final Escherichia coli 06/13/18 18:19 Blood Blood Culture - Final Assessment and Plan (1) Renal transplant recipient Current Visit: No Status: Acute Code(s): Z94.0 - KIDNEY TRANSPLANT STATUS SNOMED Code(s): 378251604 (2) Gram negative sepsis Narrative/Plan: 67-year-old woman status post renal transplant in 2013 from a nonrelated donor presents feeling very poorly with fever chills body aches bowel pain and flank pain. Also has some nausea and emesis and hyperglycemia. She was with leukocytosis, lactic acidosis and elevated creatinine above her baseline. At this time she still is having some altered mental status from what appears to be sepsis and possibly urinary system. Her white count still 22.5. Her creatinine did increase to 2.37. Lactic acid has improved. There was concerns to C. diff and this is coming back as negative. Laboratories now calling evidence of a positive blood culture with gram- negative bacilli. Patient was started on Rocephin. With her history of transplant in immunocompromise that also be concerns for the potential of Pseudomonas and constantly Rocephin will be transitioned to cefepime pending further culture data. Urine culture is still pending at this time. Nephrology is following 06/16/2018 the patient is slightly improved today. Mentation is improved. There is evidence of the E. coli in the urine and blood. We'll continue current antibiotic therapy with a marked clinical improvement until final cultures are available. Midline catheter was placed in does give the opportunity to complete a course of intravenous antibiotic therapy in the home setting. Follow-up cultures negative so far. 06/19/2018 patient has further improvement. As noted E. coli has been found in the urine as well as a blood. For antibiotic therapy can transitioned to levofloxacin 250 mg orally every other day for 7 doses for her bacteremic urinary tract infection. Given her immunocompromised for renal transplant a 2 week total course of therapy is indicated. 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 Given the susceptibility the patient will not require outpatient intravenous antibiotic therapy. Current Visit: Yes Status: Acute Code(s): A41.50 - GRAM-NEGATIVE SEPSIS, UNSPECIFIED SNOMED Code(s): 330382783
[2018-06-20 03:00] LABS: Glucose,Whole Blood 100 mg/dL (75-99)
[2018-06-20 07:38] LABS: Glucose,Whole Blood 56 mg/dL (75-99)
[2018-06-20 07:42] LABS: Glucose,Whole Blood 53 mg/dL (75-99)
[2018-06-20] MEDS: INSULIN ASPART 100 UNIT/ML 1 ML 10 ML VIAL SQ SCH ×3 (07:52→17:32)
[2018-06-20] MEDS: CARVEDILOL 12.5 MG TAB PO SCH ×2 (08:00→17:31)
[2018-06-20] MEDS: traMADol 50 MG TAB PO PRN (08:00)
[2018-06-20 08:01] LABS: Glucose,Whole Blood 66 mg/dL (75-99)
[2018-06-20 08:20] LABS: Glucose,Whole Blood 88 mg/dL (75-99)
[2018-06-20 08:46] LABS: Calcium 9.7 mg/dL (8.4-10.2)
[2018-06-20 09:06] LABS: HCT 34.9 % (34.0-46.0); HGB 10.3 gm/dL (11.4-16.0); Hypochromasia Marked; MCH 26.5 pg (25.0-35.0); MCHC 29.6 g/dL (31.0-37.0); MCV 89.5 fL (80.0-100.0); Mean Platelet Volume 8.5; Platelet Count 236 k/uL (150-450); RDW 13.7 % (11.5-15.5); WBC 17.1 k/uL (3.8-10.6)
[2018-06-20 10:38] LABS: Band Neutrophils % 5 %; Eosinophils # (M) 0.34 k/uL (0-0.7); Lymphocytes # (M) 1.88 k/uL (1.0-4.8); Metamyelocytes # (M) 0.34 k/uL (0); Metamyelocytes % 2 %; Monocytes # (M) 1.54 k/uL (0-1.0); Myelocytes # (M) 0.68 k/uL (0); Myelocytes % 4 %; Neutrophils % (M) 68 %; Nucleated Red Blood Cells 0 /100 WBC (0-0); Total Cells Counted 200
[2018-06-20] MEDS: ASPIRIN 81 MG PO SCH (10:38)
[2018-06-20] MEDS: SODIUM BICARBONATE TAB 650 MG TAB PO SCH ×2 (10:38→21:16)
[2018-06-20] MEDS: amLODIPine 10 MG TAB PO SCH (10:38)
[2018-06-20] MEDS: DEXTROSE 5%-0.9% NACL 1,000 ML IV SCH (10:38)
[2018-06-20 10:39] LABS: Poikilocytosis (M) Present
[2018-06-20] MEDS: predniSONE 10 MG TAB PO SCH (10:39)
[2018-06-20] MEDS: LOSARTAN 25 MG TAB PO SCH (10:39)
[2018-06-20] MEDS: FAMOTIDINE 20 MG TAB PO SCH (10:39)
[2018-06-20] MEDS: ENOXAPARIN 40 MG/0.4 ML SYRINGE SQ SCH (10:40)
[2018-06-20] MEDS: LINACLOTIDE 145 MG PO SCH (10:40)
[2018-06-20] MEDS: CEFEPIME 1 GM in SODIUM CHLORIDE 0.9% 50 ML IVPB SCH ×2 (10:42→21:12)
[2018-06-20] MEDS: TACROLIMUS 1 MG CAP PO SCH ×2 (10:44→21:17)
[2018-06-20] MEDS: MYCOPHENOLATE SODIUM DR 180 MG TABLET.DR PO SCH ×2 (10:44→21:17)
[2018-06-20 11:48] LABS: Glucose,Whole Blood 214 mg/dL (75-99)
[2018-06-20] MEDS: SODIUM CHLORIDE 0.9% 1,000 ML IV SCH (12:25)
--- NOTE | 2018-06-20 13:25 | P.PN ---
Subjective Patient is seen in follow-up for acute allograft dysfunction. Renal function is improving with creatinine down to 1.04 today. Currently being treated for E. coli UTI and bacteremia. Admits to good urine output. Denies chest pain or shortness of breath. Blood sugars still low. Oral intake is fair. Admits to flank pain on the left side. She is concerned about a kidney stone. Vital signs are stable. General: The patient appeared well nourished and normally developed. HEENT: Head exam is unremarkable. Neck is without jugular venous distension. LUNGS: Lungs are clear to auscultation and percussion. Breath sounds decreased. HEART: Rate and Rhythm are regular. First and second heart sounds normal. No murmurs, rubs or gallops. ABDOMEN: Abdominal exam reveals normal bowel sounds. Non-tender and non- distended. No evidence of peritonitis. EXTREMITITES: No clubbing, cyanosis, or edema. Objective - Vital Signs Vital signs: Vital Signs Temp 98.5 F 06/20/18 07:23 Pulse 73 06/20/18 07:23 Resp 16 06/20/18 07:23 BP 163/80 06/20/18 07:23 Pulse Ox 100 06/20/18 07:23 Intake & Output 06/19/18 06/20/18 06/20/18 18:59 06:59 18:59 Intake Total 500 1150 Balance 500 1150 Intake: Intake, IV Titration 500 1050 Amount Cefepime 1 gm In Sodium 100 Chloride 0.9% 50 ml @ 100 mls/hr IVPB Q12HR [facility] Rx #:[id number] Dextrose 5%-0.9% NaCl 1, 400 1050 000 ml @ 100 mls/hr IV . Q10H [facility] Rx#:[id number] Oral 100 Other: Voiding Method Toilet Bedside Commode - Labs CBC & Chem 7: 06/20/18 08:15 06/20/18 08:15 Labs: Abnormal Lab Results - Last 24 Hours (Table) 06/19/18 06/19/18 06/20/18 Range/Units 17:10 20:41 02:48 WBC (3.8-10.6) k/uL Hgb (11.4-16.0) gm/dL MCHC (31.0-37.0) g/dL Neutrophils # (Manual) (1.3-7.7) k/uL Monocytes # (Manual) (0-1.0) k/uL Metamyelocytes # (Man) (0) k/uL Myelocytes # (Manual) (0) k/uL Chloride (98-107) mmol/L POC Glucose (mg/dL) 241 H 192 H 100 H (75-99) mg/dL 06/20/18 06/20/18 06/20/18 Range/Units 07:13 07:30 07:50 WBC (3.8-10.6) k/uL Hgb (11.4-16.0) gm/dL MCHC (31.0-37.0) g/dL Neutrophils # (Manual) (1.3-7.7) k/uL Monocytes # (Manual) (0-1.0) k/uL Metamyelocytes # (Man) (0) k/uL Myelocytes # (Manual) (0) k/uL Chloride (98-107) mmol/L POC Glucose (mg/dL) 56 L 53 L 66 L (75-99) mg/dL 06/20/18 06/20/18 06/20/18 Range/Units 08:15 08:15 11:32 WBC 17.1 H (3.8-10.6) k/uL Hgb 10.3 L (11.4-16.0) gm/dL MCHC 29.6 L (31.0-37.0) g/dL Neutrophils # (Manual) 12.40 H (1.3-7.7) k/uL Monocytes # (Manual) 1.54 H (0-1.0) k/uL Metamyelocytes # (Man) 0.34 H (0) k/uL Myelocytes # (Manual) 0.68 H (0) k/uL Chloride 109 H (98-107) mmol/L POC Glucose (mg/dL) 214 H (75-99) mg/dL Microbiology - Last 24 Hours (Table) 06/15/18 07:26 Blood Culture - Preliminary Blood No Growth after 120 hours Assessment and Plan Plan: Assessment: 1. Acute allograft dysfunction secondary to ATN secondary to sepsis. Renal function improving. 2. E. coli UTI and bacteremia. Maintained on antibiotics. 3. Status post DDA in 2011. 4. Benign hypertension. 5. Metabolic acidosis secondary to acute kidney injury maintained on oral sodium bicarbonate. 6. Insulin-dependent diabetes mellitus. Plan: Maintain current immunosuppression medications. Avoid nephrotoxins. Repeat electrolytes in the morning. Decrease D5 normal saline to 50 mL an hour. Check renal ultrasound.
--- NOTE | 2018-06-20 15:22 | US ---
EXAMINATION TYPE: US renal transplant w dop DATE OF EXAM: 06/20/2018 COMPARISON: CT 06/01/2018 CLINICAL HISTORY: deloris. EXAM PERFORMED: Grayscale on [place] kidneys and Doppler duplex and Grayscale imaging of the transplan [place] kidney. EXAM MEASUREMENTS: [place] Right Kidney: 5.4 x 2.9 x 2.2 cm [place] Left Kidney: 3.9 x 2.0 x 2.2 cm Transplant Kidney: 10.7 x 6.0 x 7.0 cm Location of transplanted kidney: Right pelvis ANATOMY: [place] Right Kidney: Atrophic, echogenic [place] Left Kidney: Atrophic, cystic area visualized measuring 0.7 cm Transplant Kidney: No hydronephrosis. No solid or cystic areas visualized Bladder: wnl as visualized, not distended Bilateral Jets seen: No Atrophy [place] kidneys are seen. Transplant kidney is normal in size with maintenance of cortical med ullary differentiation. No hydronephrosis is seen. Satisfactory arterial flow and venous return at hi lum level is noted. No surrounding ascites is seen. IMPRESSION: Unremarkable vascular and gross appearance to transplant kidney right pelvis.
--- NOTE | 2018-06-20 17:30 | PN ---
PROGRESS NOTE DATE OF SERVICE: 06/20/2018 PRESENTING COMPLAINT: Hypoglycemia. INTERVAL HISTORY: The patient had renal transplant, presented with acute UTI, sepsis, acute renal failure. The patient has been having hypoglycemia. A dose of insulin was being cut back. The patient has not been eating much. Finally again this morning she had dropped sugars today though she started to eat better. Patient had been on a D5 drip. Also getting normal saline. REVIEW OF SYSTEMS: Done for constitutional, cardiovascular, GI, pulmonary; relevant findings as above. CURRENT MEDICATIONS: Reviewed that include IV cefepime, D5 half saline drip. PHYSICAL EXAMINATION: VITAL SIGNS: Temperature 98.4, pulse 81, respiration 12, blood pressure 115/72, pulse 100 percent on room air. GENERAL APPEARANCE: Sitting up. Looking better. EYES: Pupils equal. Conjunctivae pale. NECK: JVD not raised. Mass not palpable. RESPIRATORY: Effort normal. LUNGS: Fair air entry. CARDIOVASCULAR: 1st and 2nd sounds normal. No edema. ABDOMEN: Soft, nontender. Liver and spleen not palpable. PSYCHIATRY: Alert and oriented x3. Mood and affect normal. INVESTIGATIONS: White count 17.1, hemoglobin 10.3, potassium 4, BUN 15, creatinine 1.04. Accu-Cheks this morning was 53 66. This afternoon it is up to 214. ASSESSMENT: 1. Acute urinary tract infection from cystitis causing severe sepsis present on admission with blood and urine cultures growing E coli. 2. Lactic acidosis from severe sepsis. 3. Acute renal failure probably acute tubular necrosis from sepsis, much improved. 4. Acute metabolic acidosis. 5. Coronary artery disease with renal transplant in 2016. 6. Diabetes mellitus type 2, chronically requiring insulin, uncontrolled with both hyper and hypoglycemia. 7. Hyperlipidemia. 8. Essential hypertension. 9. Obesity; BMI 37.7. 10.Troponin leak from hemodynamic mismatch. No acute coronary syndrome. PLAN: Since the sugars are coming up now, we will still cut back on the Levemir to 12 units, cut back the scheduled NovoLog to 3 units. We will also stop the normal saline and D5 0.45. Hoping that patient can be discharged tomorrow. Dr. Carrasco is coordinating the antibiotics, she can be switched over to Levaquin. MMODL / IJN: [id number] /
[2018-06-20 17:31] LABS: Glucose,Whole Blood 327 mg/dL (75-99)
[2018-06-20 20:10] LABS: Glucose,Whole Blood 259 mg/dL (75-99)
[2018-06-20] MEDS ORDERED: INSULIN DETEMIR 100 UNIT/ML 10 ML VIAL SQ SCH ×2 (21:00)
[2018-06-20] MEDS: ATORVASTATIN 10 MG TAB PO SCH (21:16)
[2018-06-21] MEDS: ACETAMINOPHEN TAB 325 MG TAB PO PRN ×2 (01:31→17:09)
[2018-06-21 01:49] LABS: Glucose,Whole Blood 239 mg/dL (75-99)
[2018-06-21 07:10] LABS: Glucose,Whole Blood 120 mg/dL (75-99)
[2018-06-21] MEDS: INSULIN ASPART 100 UNIT/ML 1 ML 10 ML VIAL SQ SCH ×2 (07:54→12:39)
[2018-06-21] MEDS: ENOXAPARIN 40 MG/0.4 ML SYRINGE SQ SCH (08:00)
[2018-06-21] MEDS: CARVEDILOL 12.5 MG TAB PO SCH (08:00)
[2018-06-21] MEDS: amLODIPine 10 MG TAB PO SCH (08:01)
[2018-06-21] MEDS: predniSONE 10 MG TAB PO SCH (08:01)
[2018-06-21] MEDS: SODIUM BICARBONATE TAB 650 MG TAB PO SCH (08:01)
[2018-06-21] MEDS: LOSARTAN 25 MG TAB PO SCH (08:01)
[2018-06-21] MEDS: ASPIRIN 81 MG PO SCH (08:01)
[2018-06-21] MEDS: FAMOTIDINE 20 MG TAB PO SCH (08:01)
[2018-06-21] MEDS: TACROLIMUS 1 MG CAP PO SCH (08:02)
[2018-06-21] MEDS: MYCOPHENOLATE SODIUM DR 180 MG TABLET.DR PO SCH (08:03)
[2018-06-21] MEDS: LINACLOTIDE 145 MG PO SCH (08:04)
[2018-06-21] MEDS: CEFEPIME 1 GM in SODIUM CHLORIDE 0.9% 50 ML IVPB SCH (08:08)
[2018-06-21] MEDS: ONDANSETRON 4 MG/2 ML VIAL IVP PRN (08:15)
[2018-06-21 09:26] LABS: Calcium 9.6 mg/dL (8.4-10.2); Potassium 4.2 mmol/L (3.5-5.1)
--- NOTE | 2018-06-21 10:16 | P.PN ---
Subjective Patient is seen in follow-up for acute allograft dysfunction. Renal function is improving with creatinine down to 1.0 today. Currently being treated for E. coli UTI and bacteremia. Admits to good urine output. Denies chest pain or shortness of breath. Blood sugars are better. Oral intake is fair. Vital signs are stable. General: The patient appeared well nourished and normally developed. HEENT: Head exam is unremarkable. Neck is without jugular venous distension. LUNGS: Lungs are clear to auscultation and percussion. Breath sounds decreased. HEART: Rate and Rhythm are regular. First and second heart sounds normal. No murmurs, rubs or gallops. ABDOMEN: Abdominal exam reveals normal bowel sounds. Non-tender and non- distended. No evidence of peritonitis. EXTREMITITES: No clubbing, cyanosis, or edema. Objective - Vital Signs Vital signs: Vital Signs Temp 98.6 F 06/21/18 07:00 Pulse 84 06/21/18 07:00 Resp 16 06/21/18 07:00 BP 148/96 06/21/18 07:00 Pulse Ox 97 06/21/18 07:00 Intake & Output 06/20/18 06/21/18 06/21/18 18:59 06:59 18:59 Intake Total 750 Balance 750 Weight 93.5 kg Intake: Intake, IV Titration 600 Amount Sodium Chloride 0.9% 1, 600 000 ml @ 75 mls/hr IV . [id number] [facility] Rx#:[id number] Oral 150 Other: Voiding Method Toilet Bedside Commode # Voids 4 1 # Bowel Movements 1 - Labs CBC & Chem 7: 06/20/18 08:15 06/21/18 08:06 Labs: Abnormal Lab Results - Last 24 Hours (Table) 06/20/18 06/20/18 06/20/18 Range/Units 08:15 11:32 17:16 Neutrophils # (Manual) 12.40 H (1.3-7.7) k/uL Monocytes # (Manual) 1.54 H (0-1.0) k/uL Metamyelocytes # (Man) 0.34 H (0) k/uL Myelocytes # (Manual) 0.68 H (0) k/uL Chloride (98-107) mmol/L Glucose (74-99) mg/dL POC Glucose (mg/dL) 214 H 327 H (75-99) mg/dL 06/20/18 06/21/18 06/21/18 Range/Units 19:59 01:28 06:59 Neutrophils # (Manual) (1.3-7.7) k/uL Monocytes # (Manual) (0-1.0) k/uL Metamyelocytes # (Man) (0) k/uL Myelocytes # (Manual) (0) k/uL Chloride (98-107) mmol/L Glucose (74-99) mg/dL POC Glucose (mg/dL) 259 H 239 H 120 H (75-99) mg/dL 06/21/18 Range/Units 08:06 Neutrophils # (Manual) (1.3-7.7) k/uL Monocytes # (Manual) (0-1.0) k/uL Metamyelocytes # (Man) (0) k/uL Myelocytes # (Manual) (0) k/uL Chloride 109 H (98-107) mmol/L Glucose 116 H (74-99) mg/dL POC Glucose (mg/dL) (75-99) mg/dL Microbiology - Last 24 Hours (Table) 06/15/18 07:26 Blood Culture - Final Blood No Growth after 144 hours Assessment and Plan Plan: Assessment: 1. Acute allograft dysfunction secondary to ATN secondary to sepsis. Renal function improving. No evidence of hydronephrosis or nephrolithiasis noted on kidney ultrasound. 2. E. coli UTI and bacteremia. Maintained on antibiotics. 3. Status post DDA in 2011. 4. Benign hypertension. 5. Metabolic acidosis secondary to acute kidney injury maintained on oral sodium bicarbonate. 6. Insulin-dependent diabetes mellitus. Plan: Maintain current immunosuppression medications. Avoid nephrotoxins. Repeat electrolytes in the morning. Stable to be discharged home from nephrology standpoint. Follow up outpatient in the next 1-2 weeks.
[2018-06-21 11:31] LABS: Glucose,Whole Blood 131 mg/dL (75-99)
[2018-06-21 14:42] VITALS: BP 110/63; PULSE 78; RESP 18; TEMP 98
--- NOTE | 2018-06-22 08:29 | DS ---
DISCHARGE SUMMARY DATE OF ADMISSION: 06/13/2018 DATE OF DISCHARGE: 06/21/2018 FINAL DIAGNOSES: 1. Acute urinary tract infection from cystitis causing severe sepsis present on admission with urine blood cultures growing Escherichia coli. 2. Lactic acidosis from severe sepsis. 3. Acute renal failure from acute tubular necrosis from sepsis. 4. Acute metabolic acidosis. 5. Renal transplant in 2016. 6. Diabetes mellitus type 2, chronically requiring insulin, uncontrolled with both hypo- and hyperglycemia. 7. Hyperlipidemia. 8. Essential hypertension. 9. Obesity; body mass index 37.7. 10.Troponin leak from hemodynamic mismatch. No acute coronary artery syndrome. 11. renal transplant 2016. HOSPITAL COURSE: This patient presented with a septic picture, fever, chills, rigors. Patient is found to have a UTI and sepsis with both urine and blood cultures positive for E coli. Also was in renal failure. Creatinine on presentation was up to 2.37, did come down to 1 by the time of discharge. Patient's sugars had been running low and insulin therefore was cut back. Doing much better. No hepatitis. Patient did have a 2-D echocardiogram that showed EF of 50% to 55%, and base inferior LV wall motion hypokinetic. Patient was seen by Dr. Shivani Mcadams from Cardiology, recommended patient to follow up with Dr. Whyte upon discharge and no further workup currently. CONSULTATIONS: 1. Dr. Carrasco from Infectious Disease. 2. Dr. Magaña from Nephrology. 3. Dr. Shivani Mcadams from Cardiology. DISCHARGE MEDICATIONS: 1. Prograf 4 mg p.o. daily. 2. Ventolin HFA 2 puffs q.i.d. p.r.n. 3. Ventolin nebulizer 2.5 q.i.d. p.r.n. 4. Aspirin 81 mg daily. 5. Lipitor 10 mg q.h.s. 6. Coreg 12.5 p.o. b.i.d. 7. Myfortic 360 mg p.o. b.i.d. 8. Sodium bicarb 650 mg p.o. t.i.d. 9. Norvasc 10 mg p.o. daily. 10.Vitamin D2 fifty thousand units p.o. every 30 days. 11.Cozaar 25 mg p.o. daily. 12.Prednisone 5 mg p.o. daily. 13.Ultram 50 mg q.6h p.r.n. 14.Prograf 3 mg p.o. q.h.s. 15.Pepcid 20 mg p.o. daily. 16.Linzess 145 mg p.o. daily. 17.Levaquin 250 mg p.o. daily. 18.Humalog 3 units with lunch, supper and breakfast. 19.Lantus 12 units subcu q.h.s. FOLLOW UP: Follow up with the transplant kidney doctor in 1 week. Follow up with Dr. Purcell on 06/27/2018. [facility] to follow. Discussion and discharge planning more than 35 minutes. MMODL / IJN: [id number] /
== END 2018-06-21 17:05 | disposition home or self-care (01) | DRG 871 ==
LOC: EC 16:56 → 4SSUR 22:42
PROVIDERS: ADMIT Hospitalist; ATTEND Hospitalist
PROC: 05H933Z Insertion of Infusion Device into Right Brachial Vein, Percutaneous Approach (ICD-10-PCS; principal; 2018-06-15 08:30)
DX: A41.81 Sepsis due to Enterococcus (principal); N17.0 Acute kidney failure with tubular necrosis; Z94.0 Kidney transplant status; I12.0 Hypertensive chronic kidney disease with stage 5 chronic kidney disease or end stage renal disease; N30.01 Acute cystitis with hematuria; R65.20 Severe sepsis without septic shock; E86.0 Dehydration; E78.5 Hyperlipidemia, unspecified; J45.909 Unspecified asthma, uncomplicated; E11.65 Type 2 diabetes mellitus with hyperglycemia; E86.1 Hypovolemia; M16.0 Bilateral primary osteoarthritis of hip; E66.9 Obesity, unspecified; E11.51 Type 2 diabetes mellitus with diabetic peripheral angiopathy without gangrene; E83.42 Hypomagnesemia; I25.10 Atherosclerotic heart disease of native coronary artery without angina pectoris; K58.9 Irritable bowel syndrome, unspecified; E11.22 Type 2 diabetes mellitus with diabetic chronic kidney disease; K57.30 Diverticulosis of large intestine without perforation or abscess without bleeding; E11.649 Type 2 diabetes mellitus with hypoglycemia without coma; Z87.891 Personal history of nicotine dependence; Z90.49 Acquired absence of other specified parts of digestive tract; Z90.710 Acquired absence of both cervix and uterus; Z79.82 Long term (current) use of aspirin; Z79.4 Long term (current) use of insulin; Z79.52 Long term (current) use of systemic steroids; Z79.899 Other long term (current) drug therapy; Z88.5 Allergy status to narcotic agent; Z88.8 Allergy status to other drugs, medicaments and biological substances; Z91.041 Radiographic dye allergy status; Z86.19 Personal history of other infectious and parasitic diseases; Z98.42 Cataract extraction status, left eye; Z98.41 Cataract extraction status, right eye; Z68.37 Body mass index [BMI] 37.0-37.9, adult; Z87.442 Personal history of urinary calculi
CPT/HCPCS: 36410; 36415; 51702; 71045; 71046; 74018; 76776; 76937; 80048; 80053; 81001; 82140; 82150; 82550; 82553; 83036; 83605; 83690; 83735; 83880; 84484; 85025; 87040; 87077; 87086; 87186; 87324; 93005; 93306; 96361; 96365; 96367; 99291

== ENCOUNTER → 2018-08-30 | Outpatient (CLI) | payer MEDICARE ==
--- NOTE | 2018-08-30 15:16 | NM ---
EXAMINATION TYPE: NM bone scan whole body DATE OF EXAM: 08/30/2018 COMPARISON: NONE HISTORY: 67-year-old female with left hip and low back pain for 6 months. Technique: Delayed whole-body scanning was performed following the injection of 22 mCi Tc 99m MDP. I mages acquired 3 hours post injection. FINDINGS: Degenerative tracer activity at the right shoulder. Patchy increased tracer activity is present throu ghout the thoracic spine especially on the posterior images, at the L1 level, intense at both knees a nd bilateral mid to hindfoot regions. Right lower quadrant activity on the frontal view corresponds t o the patient's transplant kidney. No other suspicious distribution of tracer activity to suggest oss eous metastatic disease. IMPRESSION: 1. Severe degenerative tracer activity at the knees and within the bilateral mid to hindfoot regions. 2. Extensive patchy degenerative tracer activity throughout the mid to lower thoracic spine and espec ially within the upper lumbar spine. 3. Activity relating to the patient's right lower quadrant transplant kidney.
== END | disposition home or self-care (01) ==
LOC: RADNMMAIN 10:00
PROVIDERS: ATTEND Physical Medicine & Rehabilitation
DX: R93.7 Abnormal findings on diagnostic imaging of other parts of musculoskeletal system (principal); M54.5 Low back pain; M54.6 Pain in thoracic spine; I10 Essential (primary) hypertension; E11.9 Type 2 diabetes mellitus without complications; Z94.0 Kidney transplant status
CPT/HCPCS: 78306; A9503

== ENCOUNTER → 2018-11-22 | Outpatient (CLI) | payer MEDICARE ==
[2018-11-22 10:58] VITALS: BP 163/99; PULSE 55; RESP 18; TEMP 98.1; BMI 37.2
--- NOTE | 2018-11-22 11:54 | P.HPOB ---
History of Present Illness H&P Date: 11/22/18 Chief Complaint: The patient is here for her routine gynecologic exam and ma mmogram. This is a 68-year-old to 3 with an LMP of 1994. The patient is status post vaginal hysterectomy for benign reasons. The patient has been experiencing left lower abdominal and left pelvic pain during the past 6 months. She states it is a constant ache and she rates that at a 8 out of 10. She feels that it goes to the groin and can also go to the back. It is greater with increased movement. It seems to be better when she lays on her left side. She denies any G.I. problems and has been moving her bowels on a regular basis. Review of Systems She has lost 9 pounds over the past year. She denies respiratory, cardiac and G.I. problems. She denies maltreatment or problems with falling. : she denies any significant problems with urinary leakage. She occasionally has to get to the bathroom right away. Past Medical History Past Medical History: Asthma, Diabetes Mellitus, Dialysis, Eye Disorder, Hyperl ipidemia, Hypertension, Renal Disease, Skin Disorder Additional Past Medical History / Comment(s): KELOIDS, IBS "YEARS AGO", chronic renal failure status post transplant in 2015. 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 Vaginal hysterectomy for benign reasons. History of Any Multi-Drug Resistant Organisms: ESBL Date of last positivie culture/infection: 2011 approx(PREVIOUSLY CHARTED) MDRO Source:: peritoneal dialysis cath Past Surgical History: Cholecystectomy, Hysterectomy Additional Past Surgical History / Comment(s): hemodialysis shunt lt forearm,peritoneal dialysis insertion and removal- THEN RENAL TRANSPLANT -2015, EGD/COLONOSCOPY, LT KNEE ARTHROSCOPY, EDUARDO CATARACTS, RT EYE SX TO REPAIR DETATCHED RETINA. Vaginal hysterectomy in 1994. Colonoscopy 2018 (3rd). Past Anesthesia/Blood Transfusion Reactions: No Reported Reaction Additional Past Anesthesia/Blood Transfusion Reaction / Comment(s): has had a hard time coming out of anesthesia Past Psychological History: No Psychological Hx Reported Smoking Status: Former smoker Past Alcohol Use History: None Reported Additional Past Alcohol Use History / Comment(s): started smoking 1979,quit smoking 1989, smoked 3 packs per week. No marijuana or illicit drug use, no alcohol use. Patient lives at home with her . There are no pets in the home. Past Drug Use History: None Reported Additional History: She has been since 1980. 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 - Past Family History Mother History Unknown: Yes Father Additional Family Medical History / Comment(s): brain aneurysm Medications and Allergies Home Medications Medication Instructions Recorded Confirmed Type Tacrolimus [Prograf] 4 mg PO QAM 07/26/16 11/22/18 History Albuterol Inhaler [Ventolin Hfa 2 puff INHALATION RT-QID PRN 08/11/16 11/22/18 History Inhaler] Albuterol Nebulized [Ventolin 2.5 mg INHALATION RT-QID PRN 08/11/16 11/22/18 History Nebulized] Aspirin 81 mg PO DAILY 08/11/16 11/22/18 History Atorvastatin Calcium [Lipitor] 10 mg PO HS 08/11/16 11/22/18 History Carvedilol [Coreg*] 12.5 mg PO BID 08/11/16 11/22/[address] [Myfortic] 360 mg PO BID 08/11/16 11/22/18 History Sodium Bicarbonate Tab 650 mg PO TID 08/11/16 11/22/18 History amLODIPine [Norvasc] 10 mg PO DAILY 08/11/16 11/22/18 History Ergocalciferol (Vitamin D2) 50,000 unit PO Q30D 08/25/17 11/22/18 History [Vitamin D2] Losartan Potassium [Cozaar] 25 mg PO DAILY 08/25/17 11/22/18 History predniSONE 5 mg PO DAILY 08/25/17 11/22/18 History Tacrolimus [Prograf] 3 mg PO HS 06/01/18 11/22/18 History Famotidine [Pepcid] 20 mg PO DAILY 06/13/18 11/22/18 History Levofloxacin [Levaquin] 250 mg PO DAILY #5 tab 06/19/18 11/22/18 Rx INSULIN LISPRO (HumaLOG) [humaLOG] 3 units SQ AC-LUNCH #0 06/21/18 11/22/18 Rx INSULIN LISPRO (HumaLOG) [humaLOG] 3 units SQ AC-SUPPER #0 06/21/18 11/22/18 Rx INSULIN LISPRO (humaLOG) [humaLOG] 3 units SQ AC-BRKFST #0 06/21/18 11/22/18 Rx Insulin Glargine,Hum.rec.anlog 12 unit SQ HS #0 06/21/18 11/22/18 Rx [Lantus Solostar] Denosumab [Prolia] 60 mg SQ DIRECTED 11/22/18 11/22/18 History oxyCODONE-APAP 10-325MG [Percocet 1 tab PO Q4HR PRN 11/22/18 11/22/18 History 10-325 mg] Allergies Allergy/AdvReac Type Severity Reaction Status Date / Time hydralazine [From Apresoline] Allergy Rash/Hives Verified 11/22/18 10:58 Iodinated Contrast- Oral and Allergy Unknown Verified 11/22/18 10:58 IV Dye meperidine [From Demerol] Allergy Anaphylaxis Verified 11/22/18 10:58 Exam Vital Signs Temp Pulse Resp BP Pulse Ox 11/22/18 10:50 98.1 F 55 L 18 163/99 100 Intake and Output 11/21/18 11/22/18 11/22/18 22:59 06:59 14:59 Other: Weight 95.254 kg Height 5'3", weight 210 pounds, BMI 37.2. This is a well-developed well-nourished heavyset black female who is alert and oriented times 3 in no acute distress. HEENT: Within normal limits. NECK: Supple without mass or thyromegaly. CHEST AND LUNGS: Clear to auscultation. HEART: Regular rate and rhythm. BREASTS: Are without mass or discharge. AXILLARY EXAM: Negative for adenopathy. BACK: Negative for CVA tenderness. ABDOMEN: Soft, obese, nontender, without palpable masses. PELVIC EXAM: Normal external genitalia with mild atrophy. Vagina appears normal mild atrophy. There is no unusual discharge. There is no evidence of prolapse. There are no palpable adnexal masses or tenderness. RECTAL EXAM: rectovaginal exam is negative for mass or tenderness and is negative for occult blood. EXTREMITIES: Nontender. IMPRESSION: 1. 68-year-old menopausal female status to post vaginal hysterectomy for benign reasons with normal gynecologic exam. 2. Six-month history of left lower quadrant and left pelvic pain with no significant physical findings on exam today. 3. History of osteoporosis on Prolia. PLAN: 1. Pap smears have been discontinued. 2. Self breast awareness was discussed with the patient. 3. Screening mammogram will be done today. 4. Osteoporosis management was discussed. I have stressed the importance of adequate calcium, vitamin D and regular exercise. Recommended amounts of calcium and vitamin D were also discussed. The patient has been getting Prolia injections twice a year through Dr. Purcell. She states she is due for this again and will do this through Dr. Purcell. 5. Pelvic ultrasound will be scheduled. 6. She does get flu shots in the fall. 7.She was advised to return in one year for her annual well woman exam.
--- NOTE | 2018-11-27 14:18 | MM ---
Reason for exam: screening (asymptomatic). Last mammogram was performed 1 year and 1 month ago. History: Patient is postmenopausal. Physical Findings: A clinical breast exam by your physician is recommended on an annual basis and results should be correlated with mammographic findings. MG 3D Screening Mammo W/Cad Bilateral CC and MLO view(s) were taken. Prior study comparison: October 12, 2017, bilateral MG 3d screening mammo w/cad. March 02, 2016, bilateral MG 3d screening mammo w/cad. There are scattered fibroglandular densities. No significant changes when compared with prior studies. ASSESSMENT: Negative, BI-RAD 1 RECOMMENDATION: Routine screening mammogram of both breasts in 1 year.
== END | disposition home or self-care (01) ==
LOC: WWCWWP 10:39
PROVIDERS: ATTEND Obstetrics & Gynecology
DX: Z12.31 Encounter for screening mammogram for malignant neoplasm of breast (principal)
CPT/HCPCS: 77063; 77067

== ENCOUNTER → 2019-05-10 | Outpatient (CLI) | payer MEDICARE ==
--- NOTE | 2019-05-10 12:34 | CT ---
EXAMINATION TYPE: CT abdomen pelvis wo con DATE OF EXAM: 05/10/2019 COMPARISON: 06/01/2018 INDICATION: generalized pain for a couple months DLP: 937 mGycm, Automated exposure control for dose reduction was used. CONTRAST: 0 mL of Isovue 300. Study performed without Oral Contrast TECHNIQUE: Axial images were obtained from above the diaphragm to the pubic rami in the axial plane a t 5 mm thick sections. Reconstructed images are reviewed on the computer in the coronal plane. FINDINGS: Limited CT sections are obtained the lung bases. The lung bases are clear. Minimal pericardial effu sherry may be present CT ABDOMEN: Liver: Normal Spleen: Normal Pancreas: Somewhat atrophic Adrenal glands: The adrenal glands are normal. Gallbladder: Normal Kidneys: Negative kidneys appear atrophic. There is a transplant kidney within the right hemipelvis a ppears unremarkable. No hydronephrosis is evident. No masses are evident. No hydronephrosis is presen t. No cysts are present. No renal stones are identified. Aorta: Vascular calcification is within the aorta. Inferior vena cava: Normal. CT PELVIS: Loops of bowel within the abdomen and pelvis are normal. Study is without oral contrast limiting bowel evaluation. Scattered diverticuli are within the sigmoid colon without acute diverticulitis. Appendix: Normal as visualized. Urinary bladder: Normal. Genitourinary structures: The ovaries appear to be present bilaterally and stable in appearance. Uter us is absent. Osseous structures: No suspicious lytic or sclerotic lesions. Facet changes are within the lower lumb ar spine. Degenerative disc changes are at the thoracolumbar junction. IMPRESSIONS: 1. Normal-appearing transplant kidney without contrast with atrophy of the [place] kidneys. 2. Diverticulosis without acute diverticulitis.
== END | disposition home or self-care (01) ==
LOC: RADCTMAIN 11:34
PROVIDERS: ATTEND Family Medicine
DX: K57.30 Diverticulosis of large intestine without perforation or abscess without bleeding (principal); N26.1 Atrophy of kidney (terminal); Z94.0 Kidney transplant status
CPT/HCPCS: 74176

== ENCOUNTER → 2019-07-10 | Outpatient (CLI) | payer MEDICARE ==
[2019-07-10 13:15] LABS: Basophils # (A) 0.2 k/uL (0-0.2); Basophils % (A) 3 %; Eosinophils # (A) 0.1 k/uL (0-0.7); Eosinophils % (A) 2 %; HCT 41.5 % (34.0-46.0); HGB 12.3 gm/dL (11.4-16.0); Hypochromasia Marked; Lymphocytes # (A) 1.3 k/uL (1.0-4.8); Lymphocytes % (A) 20 %; MCH 28.8 pg (25.0-35.0); MCHC 29.6 g/dL (31.0-37.0); MCV 97.3 fL (80.0-100.0); Mean Platelet Volume 11.5; Monocytes # (A) 0.4 k/uL (0-1.0); Monocytes % (A) 6 %; Neutrophils # (A) 4.2 k/uL (1.3-7.7); Neutrophils % (A) 68 %; Platelet Count 126 k/uL (150-450); RBC 4.26 m/uL (3.80-5.40); RDW 13.8 % (11.5-15.5); WBC 6.2 k/uL (3.8-10.6)
[2019-07-10 18:44] LABS: Albumin 4.2 g/dL (3.80-4.90); Albumin/Globulin Ratio 2.47 (1.60-3.17); Anion Gap 12.2 mmol/L (4.00-12.00); Calcium 9.9 mg/dL (8.7-10.3); Carbon Dioxide 21.8 mmol/L (21.6-31.8); Globulin 1.7 g/dL (1.6-3.3); Non-African American GFR(CKD) 57.8 (60.0-200.0); Phosphorus 3.5 mg/dL (2.4-5.1); Potassium 4.5 mmol/L (3.5-5.5); Total Bilirubin 0.4 mg/dL (0.3-1.2); Total Protein 5.9 g/dL (6.2-8.2)
[2019-07-10 19:32] LABS: Total Protein,Urine Random 41.1 mg/dL (0.0-13.5)
[2019-07-10 21:09] LABS: Hemoglobin A1C 7.7 % (4.0-6.0)
== END | disposition home or self-care (01) ==
LOC: LABWHC1 11:43
PROVIDERS: ATTEND Internal Medicine Nephrology
DX: E11.9 Type 2 diabetes mellitus without complications (principal); E55.9 Vitamin D deficiency, unspecified; Z94.0 Kidney transplant status
CPT/HCPCS: 36415; 80053; 80197; 82306; 82570; 83036; 83970; 84100; 84156; 85025

== ENCOUNTER → 2019-08-24 | Outpatient (CLI) | payer MEDICARE ==
[2019-08-24 10:14] LABS: Basophils % (A) 0 %; Eosinophils # (A) 0.2 k/uL (0-0.7); Eosinophils % (A) 2 %; HCT 40.1 % (34.0-46.0); HGB 12.2 gm/dL (11.4-16.0); Hypochromasia Moderate; Lymphocytes # (A) 1.9 k/uL (1.0-4.8); Lymphocytes % (A) 23 %; MCH 28.5 pg (25.0-35.0); MCHC 30.4 g/dL (31.0-37.0); Mean Platelet Volume 9.7; Monocytes # (A) 0.5 k/uL (0-1.0); Monocytes % (A) 6 %; Neutrophils # (A) 5.3 k/uL (1.3-7.7); Neutrophils % (A) 66 %; Platelet Count 206 k/uL (150-450); RBC 4.27 m/uL (3.80-5.40); RDW 13.2 % (11.5-15.5)
[2019-08-24 10:24] LABS: Protein/Creatinine Ratio,Urine 0.672
[2019-08-24 16:59] LABS: % Iron Saturation 36.52 (12.00-45.00); African American GFR (CKD) 53.8 (60.0-200.0); Albumin/Globulin Ratio 2.11 (1.60-3.17); Anion Gap 7.3 mmol/L (4.00-12.00); Calcium 10.1 mg/dL (8.7-10.3); Carbon Dioxide 25.7 mmol/L (21.6-31.8); Chol/HDL Ratio 3.32; Ferritin 1819.6 ng/mL (10.0-291.0); Globulin 1.9 g/dL (1.6-3.3); LDL Cholesterol,Calculated 114.8 mg/dL (0.0-131.0); Non-African American GFR(CKD) 46.4 (60.0-200.0); Potassium 4.9 mmol/L (3.5-5.5); Total Bilirubin 0.2 mg/dL (0.2-1.2); Total Protein 5.9 g/dL (6.2-8.2); VLDL Calculation 29.2 mg/dL (5.00-40.00)
== END | disposition home or self-care (01) ==
LOC: LABWHC1 09:16
PROVIDERS: ATTEND Nurse Practitioner Acute Care
DX: N18.3 Chronic kidney disease, stage 3 (moderate) (principal); E11.22 Type 2 diabetes mellitus with diabetic chronic kidney disease; Z94.0 Kidney transplant status; Z79.4 Long term (current) use of insulin
CPT/HCPCS: 36415; 80053; 80061; 80197; 82570; 82728; 83036; 83540; 83550; 83970; 84156; 85025

== ENCOUNTER 2020-04-18 00:04 | Emergency (ER) | payer MEDICARE ==
[2020-04-18] MEDS ORDERED: ONDANSETRON 4 MG/2 ML VIAL IVP STA (00:27)
[2020-04-18] MEDS ORDERED: MORPHINE SULFATE 2 MG/ML SYRINGE IVP STA (00:27)
[2020-04-18] MEDS ORDERED: SODIUM CHLORIDE 0.9% 500 ML 500 ML IV STA (00:27)
--- NOTE | 2020-04-18 01:20 | ED ---
Abdominal Pain HPI <Kendall Apodaca - Last Filed: 04/18/20 07:17> - General Source: patient Mode of arrival: wheelchair Limitations: no limitations <Larissa Madsen - Last Filed: 04/18/20 23:35> - General Chief Complaint: Abdominal Pain Stated Complaint: abd pain Time Seen by Provider: 04/18/20 00:13 - History of Present Illness Initial Comments: Patient is a 69-year-old female, with history of diabetes, kidney disease, asthma, hypertension, presenting to emergency Department with complaints of a bdominal pain as well as some nausea and vomiting for the last 3-4 days. Patient states her abdominal pain is mostly in the lower abdomen. She denies any diarrhea. She states she's been having regular bowel movements. Patient denies any abdominal surgeries but reviewing her record, she's had hysterectomy, cholecystectomy, kidney transplant 5 years ago. She denies any chest pain, cough, shortness of breath, fever, chills. She denies any urinary complaints. She has no further complaints at this time. Upon arrival to the ER, her vital signs are stable. (Larissa Madsen) - Related Data Home Medications Medication Instructions Recorded Confirmed Tacrolimus [Prograf] 4 mg PO QAM 07/26/16 04/18/20 Albuterol Nebulized [Ventolin 2.5 mg INHALATION RT-QID PRN 08/11/16 04/18/20 Nebulized] Aspirin 81 mg PO DAILY 08/11/16 04/18/20 Atorvastatin Calcium [Lipitor] 10 mg PO HS 08/11/16 04/18/[address] [Myfortic] 360 mg PO BID 08/11/16 04/18/20 Sodium Bicarbonate Tab 650 mg PO TID 08/11/16 04/18/20 amLODIPine [Norvasc] 10 mg PO DAILY 08/11/16 04/18/20 carvediloL [Coreg*] 12.5 mg PO BID 08/11/16 04/18/20 Ergocalciferol (Vitamin D2) 50,000 unit PO PARRISH 08/25/17 04/18/20 [Vitamin D2] predniSONE 5 mg PO DAILY 08/25/17 04/18/20 Tacrolimus [Prograf] 3 mg PO HS 06/01/18 04/18/20 Albuterol Inhaler [Ventolin Hfa 1 - 2 puff INHALATION RT-Q4H PRN 04/18/20 04/18/20 Inhaler] HYDROcodone/APAP 7.5-325MG [[place] 1 tab PO Q8H PRN 04/18/20 04/18/20 7.5-325] INSULIN LISPRO (humaLOG) [humaLOG] See Protocol SQ AC-TID 04/18/20 04/18/20 Insulin Glargine,Hum.rec.anlog 35 unit SQ HS 04/18/20 04/18/20 [Lantus Solostar] Losartan Potassium 100 mg PO DAILY 04/18/20 04/18/20 Olopatadine HCl [Pazeo] 1 drop BOTH EYES DAILY PRN 04/18/20 04/18/20 Thiamine [Vitamin B-1] 100 mg PO DAILY 04/18/20 04/18/20 traMADol HCl [Ultram] 50 - 100 mg PO Q6H PRN 04/18/20 04/18/20 Allergies Allergy/AdvReac Type Severity Reaction Status Date / Time hydralazine [From Apresoline] Allergy Rash/Hives Verified 04/18/20 07:01 Iodinated Contrast Media Allergy Unknown Verified 04/18/20 07:01 [Iodinated Contrast- Oral and IV Dye] meperidine [From Demerol] Allergy Anaphylaxis Verified 04/18/20 07:01 Review of Systems ROS Other: All systems not noted in ROS Statement are negative. <Kendall Apodaca - Last Filed: 04/18/20 07:17> ROS Other: All systems not noted in ROS Statement are negative. <Larissa Madsen - Last Filed: 04/18/20 23:35> ROS Statement: Those systems with pertinent positive or pertinent negative responses have been documented in the HPI. Past Medical History Past Medical History: Asthma, Diabetes Mellitus, Dialysis, Eye Disorder, Hyperlipidemia, Hypertension, Renal Disease, Skin Disorder Additional Past Medical History / Comment(s): KELOIDS, IBS "YEARS AGO", chronic renal failure status post transplant in 2016. 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 Vaginal hysterectomy for benign reasons. History of Any Multi-Drug Resistant Organisms: ESBL Date of last positivie culture/infection: 2011 approx(PREVIOUSLY CHARTED) MDRO Source:: peritoneal dialysis cath Past Surgical History: Cholecystectomy, Hysterectomy Additional Past Surgical History / Comment(s): hemodialysis shunt lt forearm,peritoneal dialysis insertion and removal- THEN RENAL TRANSPLANT 2-2015, EGD/COLONOSCOPY, LT KNEE ARTHROSCOPY, EDUARDO CATARACTS, RT EYE SX TO REPAIR DETATCHED RETINA. Vaginal hysterectomy in 1994. Colonoscopy 2018 (3rd). Past Anesthesia/Blood Transfusion Reactions: No Reported Reaction Additional Past Anesthesia/Blood Transfusion Reaction / Comment(s): has had a hard time coming out of anesthesia Past Psychological History: No Psychological Hx Reported Smoking Status: Never smoker Past Alcohol Use History: None Reported Past Drug Use History: None Reported - Past Family History Mother History Unknown: Yes Father Additional Family Medical History / Comment(s): brain aneurysm <Larissa Madsen - Last Filed: 04/18/20 23:35> General Exam Limitations: no limitations <Larissa Madsen - Last Filed: 04/18/20 23:35> - General Exam Comments Initial Comments: GENERAL: Patient is well-developed and well-nourished. Patient is nontoxic and in no acute distress. HEAD: Atraumatic, normocephalic. EYES: Pupils equal round and reactive to light, extraocular movements intact, sclera anicteric, conjunctiva are normal. Eyelids were unremarkable. ENT: TMs normal, nares patent, oropharynx clear without exudates. Moist mucous membranes. NECK: Normal range of motion, supple without lymphadenopathy or JVD. LUNGS: Unlabored respirations. Breath sounds clear to auscultation bilaterally and equal. No wheezes rales or rhonchi. HEART: Regular rate and rhythm without murmurs, rubs or gallops. ABDOMEN: Mild tenderness to the lower abdomen, no specific area pain. Soft, normoactive bowel sounds. No guarding, no rebound. No masses appreciated. : Deferred MUSCULOSKELETAL: Normal extremities with adequate strength and normal range of motion, no pitting or edema. No clubbing or cyanosis. NEUROLOGICAL: Patient is alert and oriented x 3. Motor and sensory are also intact. Cranial nerves II through XII grossly intact. Symmetrical smile. Normal speech, normal gait. PSYCH: Normal mood, normal affect. SKIN: Warm, Dry, normal turgor, no rashes or lesions noted. (Larissa Madsen) Course Vital Signs 04/18/20 04/18/20 04/18/20 00:07 01:05 02:05 Temperature 98.7 F Pulse Rate 94 88 88 Respiratory 17 18 19 Rate Blood Pressure 136/80 163/82 164/87 O2 Sat by Pulse 100 98 98 Oximetry 04/18/20 04/18/20 04/18/20 03:05 04:05 05:33 Temperature 98.8 F Pulse Rate 86 87 83 Respiratory 18 18 18 Rate Blood Pressure 138/76 138/76 127/109 O2 Sat by Pulse 98 97 100 Oximetry 04/18/20 04/18/20 06:03 08:05 Temperature 98.9 F Pulse Rate 85 90 Respiratory 18 18 Rate Blood Pressure 185/89 144/72 O2 Sat by Pulse 96 96 Oximetry Medical Decision Making - Lab Data Result diagrams: 04/18/20 03:19 04/18/20 03:19 <Kendall Apodaca - Last Filed: 04/18/20 07:17> - Lab Data Result diagrams: 04/18/20 03:19 04/18/20 03:19 <Larissa Madsen - Last Filed: 04/18/20 23:35> - Medical Decision Making Patient is a 69-year-old female here with abdominal pain, nausea for the last 3- 4 days. Her vital signs are stable. Exam shows some lower abdominal tenderness, no specific area pain. CT of the abdomen was obtained and shows scattered peripheral patchy opacities involving the lung bases, findings are nonspecific but are consistent with possible pneumonia, possible Covid. No evidence of bowel obstruction, no findings she just diverticulitis, no other acute findings. Patient was a very hard stick, labs were a delay. Pt was signed out to Dr. Apodaca at 03:00. (Larissa Madsen) - Lab Data Lab Results 04/18/20 04/18/20 04/18/20 Range/Units 03:19 03:19 03:19 WBC 7.4 (3.8-10.6) k/uL RBC 4.25 (3.80-5.40) m/uL Hgb 12.0 (11.4-16.0) gm/dL Hct 38.5 (34.0-46.0) % MCV 90.4 (80.0-100.0) fL MCH 28.2 (25.0-35.0) pg MCHC 31.2 (31.0-37.0) g/dL RDW 13.6 (11.5-15.5) % Plt Count 173 (150-450) k/uL MPV 10.0 Neutrophils % 74 % Lymphocytes % 16 % Monocytes % 7 % Eosinophils % 1 % Basophils % 1 % Neutrophils # 5.5 (1.3-7.7) k/uL Lymphocytes # 1.2 (1.0-4.8) k/uL Monocytes # 0.5 (0-1.0) k/uL Eosinophils # 0.1 (0-0.7) k/uL Basophils # 0.0 (0-0.2) k/uL PT 9.8 (9.0-12.0) sec INR 0.9 (<1.2) APTT 22.8 (22.0-30.0) sec Sodium 132 L (137-145) mmol/L Potassium 4.9 (3.5-5.1) mmol/L Chloride 103 (98-107) mmol/L Carbon Dioxide 20 L (22-30) mmol/L Anion Gap 9 mmol/L BUN 28 H (7-17) mg/dL Creatinine 1.19 H (0.52-1.04) mg/dL Est GFR (CKD-EPI)AfAm 54 (>60 ml/min/1.73 sqM) Est GFR (CKD-EPI)NonAf 47 (>60 ml/min/1.73 sqM) Glucose 401 H (74-99) mg/dL POC Glucose (mg/dL) (75-99) mg/dL POC Glu Label Designer ID Plasma Lactic Acid David (0.7-2.0) mmol/L Calcium 9.0 (8.4-10.2) mg/dL Total Bilirubin 0.7 (0.2-1.3) mg/dL AST 37 H (14-36) U/L ALT 18 (4-34) U/L Alkaline Phosphatase 85 (38-126) U/L Total Protein 5.7 L (6.3-8.2) g/dL Albumin 3.0 L (3.5-5.0) g/dL Amylase 33 (30-110) U/L Lipase 63 (23-300) U/L Coronavirus (PCR) (Not Detectd) 11/13/20 11/13/20 11/13/20 Range/Units 03:19 05:54 06:22 WBC (3.8-10.6) k/uL RBC (3.80-5.40) m/uL Hgb (11.4-16.0) gm/dL Hct (34.0-46.0) % MCV (80.0-100.0) fL MCH (25.0-35.0) pg MCHC (31.0-37.0) g/dL RDW (11.5-15.5) % Plt Count (150-450) k/uL MPV Neutrophils % % Lymphocytes % % Monocytes % % Eosinophils % % Basophils % % Neutrophils # (1.3-7.7) k/uL Lymphocytes # (1.0-4.8) k/uL Monocytes # (0-1.0) k/uL Eosinophils # (0-0.7) k/uL Basophils # (0-0.2) k/uL PT (9.0-12.0) sec INR (<1.2) APTT (22.0-30.0) sec Sodium (137-145) mmol/L Potassium (3.5-5.1) mmol/L Chloride (98-107) mmol/L Carbon Dioxide (22-30) mmol/L Anion Gap mmol/L BUN (7-17) mg/dL Creatinine (0.52-1.04) mg/dL Est GFR (CKD-EPI)AfAm (>60 ml/min/1.73 sqM) Est GFR (CKD-EPI)NonAf (>60 ml/min/1.73 sqM) Glucose (74-99) mg/dL POC Glucose (mg/dL) 360 H (75-99) mg/dL POC Glu Label Designer ID Nohemi Anne Plasma Lactic Acid David 1.0 (0.7-2.0) mmol/L Calcium (8.4-10.2) mg/dL Total Bilirubin (0.2-1.3) mg/dL AST (14-36) U/L ALT (4-34) U/L Alkaline Phosphatase (38-126) U/L Total Protein (6.3-8.2) g/dL Albumin (3.5-5.0) g/dL Amylase (30-110) U/L Lipase (23-300) U/L Coronavirus (PCR) Detected A (Not Detectd) Disposition Is patient prescribed a controlled substance at d/c from ED?: No <Kendall Apodaca - Last Filed: 04/18/20 07:17> Is patient prescribed a controlled substance at d/c from ED?: No <Larissa Madsen - Last Filed: 04/18/20 23:35> Clinical Impression: Abdominal pain, Hyperglycemia, COVID-19 Disposition: HOME SELF-CARE Condition: Good Instructions (If sedation given, give patient instructions): Abdominal Pain (ED), Diabetic Hyperglycemia (ED) Referrals: Raza Purcell MD [Primary Care Provider] - 1-2 days
--- NOTE | 2020-04-18 01:56 | CT ---
EXAM: CT Abdomen and Pelvis Without Intravenous Contrast CLINICAL HISTORY: ITS.REASON CT Reason: abdominal pain, acute, nonlocalized TECHNIQUE: Axial computed tomography images of the abdomen and pelvis without intravenous contrast. CTDI is 17.37 mGy and DLP is 811.7 mGy-cm. This CT exam was performed using one or more of the following dose reduction techniques: automated exposure control, adjustment of the mA and/or kV according to patient size, and/or use of iterative reconstruction technique. COMPARISON: 05/22/2018 FINDINGS: Lung bases: Scattered irregular peripheral patchy opacities noted involving the visible lung bases, new from the previous examination. No lobar consolidation. ABDOMEN: Liver: Unremarkable. Gallbladder and bile ducts: Cholecystectomy. No ductal dilation. Pancreas: Unremarkable. No ductal dilation. Spleen: Unremarkable. No splenomegaly. Adrenals: Unremarkable. No mass. Kidneys and ureters: The [place] kidneys are atrophic in appearance, stable. No hydronephrosis. A right pelvic transplant kidney is identified. No hydronephrosis. No perinephric inflammation. Stomach and bowel: Evaluation of the bowel mucosa is slightly limited without contrast; however, no definite focal asymmetry suggested. No evidence for bowel obstruction. Diverticulosis of the descending and sigmoid colon without definitive findings to suggest diverticulitis. PELVIS: Appendix: A normal caliber appendix is noted in the right pelvis. Bladder: Unremarkable. No stones. Reproductive: Calcified rounded structures in the lateral aspect of the pelvis bilaterally is stable in appearance. Status post hysterectomy. ABDOMEN and PELVIS: Intraperitoneal space: Unremarkable. No free air. No significant fluid collection. Bones/joints: There is interval progression of severe degenerative changes at T12-L1 level with endplate irregularity and sclerosis and a [id number] appearance. No definite paraspinal soft tissue abnormality identified. Similar appearing marked degenerative changes at T10-11 level. There is slight progression of moderate to severe degenerative changes at L3-4 level. No acute osseous abnormality. No significant abnormal alignment. Soft tissues: See above. Vasculature: Unremarkable. No abdominal aortic aneurysm. Lymph nodes: Unremarkable. No enlarged lymph nodes. IMPRESSION: 1. Scattered irregular peripheral patchy opacities noted involving the visible lung bases, new from the previous examination. No lobar consolidation. Findings are nonspecific in appearance but are consistent with bilateral pneumonia, to include atypical bacterial and viral (including, but not limited to Covid-19) processes. Definitive diagnostic testing and isolation protocol is recommended in the appropriate clinical setting and risk factors. No pleural effusion. 2. Evaluation of the bowel mucosa is slightly limited without contrast; however, no definite focal asymmetry suggested. No evidence for bowel obstruction. Diverticulosis of the descending and sigmoid colon without definitive findings to suggest diverticulitis. No pleural effusion or pneumothorax. 3. The [place] kidneys are atrophic in appearance, stable. No hydronephrosis. A right pelvic transplant kidney is identified. No hydronephrosis. No perinephric inflammation. 4. There is interval progression of severe degenerative changes at T12- L1 level with endplate irregularity and sclerosis and a [id number] appearance. No definite paraspinal soft tissue abnormality identified. Favor progressive degenerative changes over discitis/osteomyelitis, which is considered much less likely. However, please correlate clinically.
[2020-04-18 03:24] VITALS: RESP 18
[2020-04-18 03:42] LABS: INR 0.9 (<1.2); Partial Thromboplastin Time 22.8 sec (22.0-30.0); Potassium 4.9 mmol/L (3.5-5.1); Prothrombin Time 9.8 sec (9.0-12.0); Total Bilirubin 0.7 mg/dL (0.2-1.3); Total Protein 5.7 g/dL (6.3-8.2)
[2020-04-18 03:53] LABS: Basophils % (A) 1 %; Eosinophils # (A) 0.1 k/uL (0-0.7); Eosinophils % (A) 1 %; HCT 38.5 % (34.0-46.0); Lymphocytes # (A) 1.2 k/uL (1.0-4.8); Lymphocytes % (A) 16 %; MCH 28.2 pg (25.0-35.0); MCHC 31.2 g/dL (31.0-37.0); MCV 90.4 fL (80.0-100.0); Monocytes # (A) 0.5 k/uL (0-1.0); Monocytes % (A) 7 %; Neutrophils # (A) 5.5 k/uL (1.3-7.7); Neutrophils % (A) 74 %; Platelet Count 173 k/uL (150-450); RBC 4.25 m/uL (3.80-5.40); RDW 13.6 % (11.5-15.5); WBC 7.4 k/uL (3.8-10.6)
[2020-04-18] MEDS ORDERED: SODIUM CHLORIDE 0.9% 2,000 ML IV ONE (04:02)
[2020-04-18] MEDS ORDERED: MORPHINE SULFATE 4 MG/ML SYRINGE IV STA (04:02)
[2020-04-18] MEDS ORDERED: INSULIN REGULAR 100 UNIT/ML VIAL SQ STA ×2 (05:31→05:56)
[2020-04-18 05:56] LABS: Glucose,Whole Blood 360 mg/dL (75-99)
[2020-04-18 08:06] VITALS: BP 144/72; PULSE 90; TEMP 98.9
== END 2020-04-18 08:05 | disposition home or self-care (01) ==
LOC: EC 00:04
DX: U07.1 COVID-19 (principal); E11.65 Type 2 diabetes mellitus with hyperglycemia; R10.9 Unspecified abdominal pain; E78.5 Hyperlipidemia, unspecified; I12.9 Hypertensive chronic kidney disease with stage 1 through stage 4 chronic kidney disease, or unspecified chronic kidney disease; N18.9 Chronic kidney disease, unspecified; Z94.0 Kidney transplant status; Z90.49 Acquired absence of other specified parts of digestive tract; Z90.710 Acquired absence of both cervix and uterus; Z99.2 Dependence on renal dialysis
CPT/HCPCS: 36415; 80053; 82150; 83605; 83690; 85025; 85610; 85730; 87635; 74176; 99284; 96374; 96375; 96376; 96361 ×6; J2270 ×2; J2405

== ENCOUNTER 2020-04-25 10:58 | Inpatient (IN) | payer MEDICARE ==
[2020-04-25] MEDS ORDERED: HYDROcodone/APAP 5-325MG 1 EACH TAB PO STA (11:38)
[2020-04-25] MEDS ORDERED: SODIUM CHLORIDE 0.9% 1,000 ML IV STA ×2 (11:38)
--- NOTE | 2020-04-25 11:41 | ED ---
General Adult HPI - General Chief complaint: Weakness Stated complaint: Weakness, +Covid Time Seen by Provider: 04/25/20 11:04 Source: patient, EMS, RN notes reviewed Mode of arrival: EMS Limitations: no limitations - History of Present Illness Initial comments: Patient is a pleasant [age]-year-old female presenting to the emergency department with weakness. Patient was tested positive for coronal virus one week ago. Patient states she feels weak all over. Patient does have some fatigue. No nausea vomiting. No constipation or diarrhea. No dyspnea or rhinorrhea. Patient reportedly was laying in her own stool. - Related Data Home Medications Medication Instructions Recorded Confirmed Tacrolimus [Prograf] 4 mg PO DAILY 07/26/16 04/25/20 Albuterol Nebulized [Ventolin 2.5 mg INHALATION RT-QID PRN 08/11/16 04/25/20 Nebulized] Aspirin 81 mg PO DAILY 08/11/16 04/25/20 Atorvastatin Calcium [Lipitor] 10 mg PO HS 08/11/16 04/25/20 Sodium Bicarbonate Tab 650 mg PO TID 08/11/16 04/25/20 amLODIPine [Norvasc] 10 mg PO DAILY 08/11/16 04/25/20 carvediloL [Coreg*] 12.5 mg PO BID 08/11/16 04/25/20 Ergocalciferol (Vitamin D2) 50,000 unit PO PARRISH 08/25/17 04/25/20 [Vitamin D2] predniSONE 5 mg PO DAILY 08/25/17 04/25/20 Tacrolimus [Prograf] 3 mg PO HS 06/01/18 04/25/20 Albuterol Inhaler [Ventolin Hfa 1 - 2 puff INHALATION RT-Q4H PRN 04/18/20 04/25/20 Inhaler] HYDROcodone/APAP 7.5-325MG [[place] 1 tab PO Q8H PRN 04/18/20 04/25/20 7.5-325] Insulin Glargine,Hum.rec.anlog 35 unit SQ HS 04/18/20 04/25/20 [Lantus Solostar] Losartan Potassium 100 mg PO DAILY 04/18/20 04/25/20 Olopatadine HCl [Pazeo] 1 drop BOTH EYES DAILY PRN 04/18/20 04/25/20 Thiamine [Vitamin B-1] 250 mg PO BID 04/18/20 04/25/20 traMADol HCl [Ultram] 50 - 100 mg PO Q6H PRN 04/18/20 04/25/20 Cyanocobalamin [Vitamin B-12 1,000 mcg SQ Q30D 04/25/20 04/25/20 Injection] Insulin Lispro [humaLOG Kwikpen] See Protocol SQ AC-TID 04/25/20 04/25/20 Mycophenolate Sodium [Mycophenolic 360 mg PO BID 04/25/20 04/25/20 Acid] Allergies Allergy/AdvReac Type Severity Reaction Status Date / Time hydralazine [From Apresoline] Allergy Rash/Hives Verified 04/25/20 11:03 Iodinated Contrast Media Allergy Unknown Verified 04/25/20 11:03 [Iodinated Contrast- Oral and IV Dye] meperidine [From Demerol] Allergy Anaphylaxis Verified 04/25/20 11:03 Review of Systems ROS Statement: Those systems with pertinent positive or pertinent negative responses have been documented in the HPI. ROS Other: All systems not noted in ROS Statement are negative. Constitutional: Reports: chills. Denies: fever Eyes: Denies: eye pain ENT: Denies: ear pain Respiratory: Denies: cough, dyspnea Cardiovascular: Denies: chest pain Endocrine: Reports: fatigue Gastrointestinal: Denies: abdominal pain Genitourinary: Denies: dysuria Musculoskeletal: Denies: back pain Skin: Denies: rash Neurological: Reports: weakness Past Medical History Past Medical History: Asthma, Diabetes Mellitus, Dialysis, Eye Disorder, Hyperlipidemia, Hypertension, Renal Disease, Skin Disorder Additional Past Medical History / Comment(s): KELOIDS, IBS "YEARS AGO", chronic renal failure status post transplant in 2015. 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 Vaginal hysterectomy for benign reasons. History of Any Multi-Drug Resistant Organisms: ESBL Date of last positivie culture/infection: 2011 approx(PREVIOUSLY CHARTED) MDRO Source:: peritoneal dialysis cath Past Surgical History: Cholecystectomy, Hysterectomy Additional Past Surgical History / Comment(s): hemodialysis shunt lt forearm,peritoneal dialysis insertion and removal- THEN RENAL TRANSPLANT 2-2015, EGD/COLONOSCOPY, LT KNEE ARTHROSCOPY, EDUARDO CATARACTS, RT EYE SX TO REPAIR DETAT CHED RETINA. Vaginal hysterectomy in 1994. Colonoscopy 2018 (3rd). Past Anesthesia/Blood Transfusion Reactions: No Reported Reaction Additional Past Anesthesia/Blood Transfusion Reaction / Comment(s): has had a hard time coming out of anesthesia Past Psychological History: No Psychological Hx Reported Smoking Status: Never smoker Past Alcohol Use History: None Reported Past Drug Use History: None Reported - Past Family History Mother History Unknown: Yes Father Additional Family Medical History / Comment(s): brain aneurysm General Exam Limitations: no limitations General appearance: alert, in no apparent distress Head exam: Present: normocephalic Eye exam: Present: normal appearance Neck exam: Present: normal inspection Respiratory exam: Present: normal lung sounds bilaterally Cardiovascular Exam: Present: tachycardia GI/Abdominal exam: Present: soft. Absent: tenderness Extremities exam: Present: normal inspection Neurological exam: Present: alert Psychiatric exam: Present: normal affect, normal mood Skin exam: Present: normal color Course Vital Signs 04/25/20 11:03 Temperature 98 F Pulse Rate 111 H Respiratory 18 Rate Blood Pressure 149/85 O2 Sat by Pulse 98 Oximetry EKG Findings - EKG Comments: EKG Findings:: Sinus rhythm at 98. NH 164. QRS 84. QT 356. QTc 454. Left axis. Q waves V1 and V2. No acute ST change. Medical Decision Making - Medical Decision Making Patient updated and reevaluated. Case discussed with Dr. Pierson, who will admit covering for Dr. Purcell. - Lab Data Result diagrams: 04/25/20 12:25 04/25/20 12:25 Lab Results 04/25/20 04/25/20 04/25/20 Range/Units 12:25 12:25 12:25 WBC 10.2 (3.8-10.6) k/uL RBC 3.90 (3.80-5.40) m/uL Hgb 11.2 L (11.4-16.0) gm/dL Hct 36.8 (34.0-46.0) % MCV 94.3 (80.0-100.0) fL MCH 28.8 (25.0-35.0) pg MCHC 30.6 L (31.0-37.0) g/dL RDW 13.0 (11.5-15.5) % Plt Count 420 D (150-450) k/uL MPV 9.0 Neutrophils % 84 % Lymphocytes % 6 % Monocytes % 7 % Eosinophils % 1 % Basophils % 1 % Neutrophils # 8.6 H (1.3-7.7) k/uL Lymphocytes # 0.6 L (1.0-4.8) k/uL Monocytes # 0.7 (0-1.0) k/uL Eosinophils # 0.1 (0-0.7) k/uL Basophils # 0.1 (0-0.2) k/uL Hypochromasia Moderate PT 10.2 (9.0-12.0) sec INR 1.0 (<1.2) APTT 27.2 (22.0-30.0) sec Sodium 133 L (137-145) mmol/L Potassium 5.0 (3.5-5.1) mmol/L Chloride 100 (98-107) mmol/L Carbon Dioxide 20 L (22-30) mmol/L Anion Gap 13 mmol/L BUN 23 H (7-17) mg/dL Creatinine 1.15 H (0.52-1.04) mg/dL Est GFR (CKD-EPI)AfAm 56 (>60 ml/min/1.73 sqM) Est GFR (CKD-EPI)NonAf 49 (>60 ml/min/1.73 sqM) Glucose 436 H (74-99) mg/dL Plasma Lactic Acid David (0.7-2.0) mmol/L Calcium 10.2 (8.4-10.2) mg/dL Magnesium 1.6 (1.6-2.3) mg/dL Total Bilirubin 1.3 (0.2-1.3) mg/dL AST 23 (14-36) U/L ALT 14 (4-34) U/L Alkaline Phosphatase 108 (38-126) U/L Lactate Dehydrogenase 659 H (313-618) U/L C-Reactive Protein 409.4 H (<10.0) mg/L Total Protein 6.7 (6.3-8.2) g/dL Albumin 3.1 L (3.5-5.0) g/dL 04/25/20 Range/Units 12:25 WBC (3.8-10.6) k/uL RBC (3.80-5.40) m/uL Hgb (11.4-16.0) gm/dL Hct (34.0-46.0) % MCV (80.0-100.0) fL MCH (25.0-35.0) pg MCHC (31.0-37.0) g/dL RDW (11.5-15.5) % Plt Count (150-450) k/uL MPV Neutrophils % % Lymphocytes % % Monocytes % % Eosinophils % % Basophils % % Neutrophils # (1.3-7.7) k/uL Lymphocytes # (1.0-4.8) k/uL Monocytes # (0-1.0) k/uL Eosinophils # (0-0.7) k/uL Basophils # (0-0.2) k/uL Hypochromasia PT (9.0-12.0) sec INR (<1.2) APTT (22.0-30.0) sec Sodium (137-145) mmol/L Potassium (3.5-5.1) mmol/L Chloride (98-107) mmol/L Carbon Dioxide (22-30) mmol/L Anion Gap mmol/L BUN (7-17) mg/dL Creatinine (0.52-1.04) mg/dL Est GFR (CKD-EPI)AfAm (>60 ml/min/1.73 sqM) Est GFR (CKD-EPI)NonAf (>60 ml/min/1.73 sqM) Glucose (74-99) mg/dL Plasma Lactic Acid David 1.6 (0.7-2.0) mmol/L Calcium (8.4-10.2) mg/dL Magnesium (1.6-2.3) mg/dL Total Bilirubin (0.2-1.3) mg/dL AST (14-36) U/L ALT (4-34) U/L Alkaline Phosphatase (38-126) U/L Lactate Dehydrogenase (313-618) U/L C-Reactive Protein (<10.0) mg/L Total Protein (6.3-8.2) g/dL Albumin (3.5-5.0) g/dL - Radiology Data Radiology results: image reviewed (Checks x-ray shows increased density right infrahilar region, possible atelectasis versus developing infiltrate) Disposition Clinical Impression: COVID-19, Diarrhea, Dehydration Disposition: ADMITTED IP TO THIS [facility] Condition: Serious Is patient prescribed a controlled substance at d/c from ED?: No Referrals: Raza Purcell MD [Primary Care Provider] - 1-2 days Decision Time: 14:05
[2020-04-25 12:57] LABS: Basophils # (A) 0.1 k/uL (0-0.2); Basophils % (A) 1 %; Eosinophils # (A) 0.1 k/uL (0-0.7); Eosinophils % (A) 1 %; HCT 36.8 % (34.0-46.0); HGB 11.2 gm/dL (11.4-16.0); Hypochromasia Moderate; Lymphocytes # (A) 0.6 k/uL (1.0-4.8); Lymphocytes % (A) 6 %; MCH 28.8 pg (25.0-35.0); MCHC 30.6 g/dL (31.0-37.0); MCV 94.3 fL (80.0-100.0); Monocytes # (A) 0.7 k/uL (0-1.0); Monocytes % (A) 7 %; Neutrophils # (A) 8.6 k/uL (1.3-7.7); Neutrophils % (A) 84 %; WBC 10.2 k/uL (3.8-10.6)
[2020-04-25 13:01] LABS: Platelet Count 420 k/uL (150-450)
--- NOTE | 2020-04-25 13:05 | XR ---
EXAMINATION TYPE: XR chest 1V portable DATE OF EXAM: 04/25/2020 COMPARISON: 06/14/2018 INDICATION: Fever, weakness TECHNIQUE: Single frontal view of the chest is obtained. FINDINGS: The heart size is normal. The pulmonary vasculature is normal. Some minimal infiltrate may be at the right base. IMPRESSION: 1. Minimal basilar infiltrate. Correlate for atelectasis or pneumonia. Consider atypical pneumonia.
[2020-04-25 13:10] LABS: Albumin 3.1 g/dL (3.5-5.0); Calcium 10.2 mg/dL (8.4-10.2); Magnesium 1.6 mg/dL (1.6-2.3); Partial Thromboplastin Time 27.2 sec (22.0-30.0); Prothrombin Time 10.2 sec (9.0-12.0); Total Bilirubin 1.3 mg/dL (0.2-1.3); Total Protein 6.7 g/dL (6.3-8.2)
[2020-04-25 13:44] LABS: C Reactive Protein 409.4 mg/L (<10.0)
[2020-04-25] MEDS ORDERED: NALOXONE 0.4 MG/ML 1 ML VIAL IV PRN (14:06)
[2020-04-25] MEDS ORDERED: ACETAMINOPHEN TAB 325 MG TAB PO PRN (14:06)
[2020-04-25] MEDS ORDERED: KETOTIFEN 0.025% OPHTH DROPS 5 ML BTL BOTH EYES PRN (14:08)
[2020-04-25] MEDS ORDERED: ALBUTEROL NEBULIZED 2.5 MG/3 ML INHALATION PRN (14:08)
[2020-04-25] MEDS ORDERED: SODIUM CHLORIDE 0.9% 1,000 ML IV SCH (14:15)
[2020-04-25 16:22] LABS: Glucose,Whole Blood 499 mg/dL (75-99)
[2020-04-25 16:25] LABS: Appearance,Urine Cloudy (Clear); Bilirubin,Urine Negative (Negative); Blood,Urine Trace (Negative); Color,Urine Yellow; Glucose,Urine (UA) 4+ (Negative); Ketones,Urine 1+ (Negative); Leukocyte Esterase,Urine Moderate (Negative); Mucus,Urine Rare /hpf; Nitrite,Urine Negative (Negative); Protein,Urine 2+ (Negative); RBC,Urine 7 /hpf (0-5); Specific Gravity,Urine 1.023 (1.001-1.035); Squamous Epithelial Cell,Urine 3 /hpf (0-4); Urobilinogen,Urine <2.0 mg/dL (<2.0); WBC,Urine 10 /hpf (0-5)
[2020-04-25] MEDS ORDERED: INSULIN ASPART (NovoLOG) 100 UNIT/ML VIAL SQ ONE ×2 (16:27→18:15)
[2020-04-25] MEDS: LOSARTAN 50 MG TAB PO SCH (16:33)
[2020-04-25] MEDS: amLODIPine 10 MG TAB PO SCH (16:33)
[2020-04-25] MEDS: ALBUTEROL HFA INHALER INHALATION PRN (16:35)
[2020-04-25] MEDS: SODIUM BICARBONATE TAB 650 MG TAB PO SCH ×2 (17:42→20:41)
[2020-04-25] MEDS: INSULIN ASPART (NovoLOG) 100 UNIT/ML VIAL SQ SCH ×3 (18:17→20:42)
[2020-04-25 18:31] LABS: Glucose,Whole Blood 379 mg/dL (75-99)
[2020-04-25] MEDS: INSULIN DETEMIR (LEVEMIR) 100 UNIT/ML SYR SQ SCH (18:49)
[2020-04-25 20:35] LABS: Glucose,Whole Blood 274 mg/dL (75-99)
[2020-04-25] MEDS: THIAMINE 100 MG TAB PO SCH (20:39)
[2020-04-25] MEDS: ATORVASTATIN 10 MG TAB PO SCH (20:40)
[2020-04-25] MEDS: TACROLIMUS 1 MG CAP PO SCH (20:40)
[2020-04-25] MEDS: carvediloL 12.5 MG TAB PO SCH (20:41)
[2020-04-25] MEDS: FAMOTIDINE 20 MG TAB PO SCH (20:41)
[2020-04-25] MEDS: ASCORBIC ACID 500 MG TAB PO SCH (20:41)
[2020-04-25] MEDS: MYCOPHENOLATE SODIUM DR 180 MG TABLET.DR PO SCH (20:42)
--- NOTE | 2020-04-25 22:20 | P.HPIM ---
History of Present Illness H&P Date: 04/25/20 Chief Complaint: We tired History of presenting complaint: This is a pleasant 69-year-old patient, Dr. Raza Purcell. Chronic stable medical conditions include asthma, diabetes, hypertension, hyperlipidemia, peripheral neuropathy, irritable bowel syndrome, chronic low back pain, right eye retinal bleed with injections, left eye detached retina with surgery end- stage kidney disease with past peritoneal hemodialysis that in 2016 had renal transplant. Patient presented to the ER primarily with it symptoms of feeling weak. She was diagnosed with trotter virus 1 week ago. Has been feeling very tired and rundown. Appetite is gone down. Finding it trouble to walk. Couple of loose stools. Some achiness in the body. No loss of smell or taste. Feels rundown. Very slight shortness of breath. Review of systems: GEN.: Weak diet decrease appetite EYES: None HEENT: None NECK: None RESPIRATORY: None CARDIOVASCULAR: None GASTROINTESTINAL: As above GENITOURINARY: None MUSCULOSKELETAL: Joint pains LYMPHATICS: None HEMATOLOGICAL: None PSYCHIATRY: None NEUROLOGICAL: None Past medical history to include: Asthma, diabetes, hyperlipidemia, hypertension, diabetes mellitus type 2, peripheral neuropathy, end-stage kidney disease with low-dose hemodialysis that in 2016 had renal transplant, chronic low back pain, right eye retinal bleed with injections, left eye did sit detached retina with surgery, anemia Social history: Lives with her . Smoked for 10 years stopped in 1989. No alcohol. Physical examination: VITAL SIGNS: 98, 111, 18, 149/85, 98 was sent on room air GENERAL: BMI 34.4, laying in bed, awake, tired. EYES: Pupils equal. Conjunctiva palel. HEENT: External appearance of nose and ears normal, oral cavity grossly normal. NECK: JVD not raised; masses not palpable. HEART: First and second heart sounds are normal; no edema. LUNGS: Respiratory rate normal; clear to auscultation. ABDOMEN: Soft, nontender, liver spleen not palpable, no masses palpable. PSYCH: Alert and oriented x3; mood and affect normal. NEUROLOGICAL: Cranial nerves grossly intact; no facial asymmetry, power and sensation grossly intact. LYMPHATICS: No lymph nodes palpable in the axilla and neck INVESTIGATIONS, reviewed in the clinical context: White count 10.2 hemoglobin 11.2 neutrophils 8.6 lymphocytes 0.6 potassium 5.0 BUN 23 creatinine 1.15 Blood glucose 436 CRP 409 pro-calcitonin 0.87 UA positive for leukoesterase, WBC EKG tracing personally reviewed by me-sinus rhythm, poor R-wave progression Assessment: -COVID 19 disease in a patient tested +1 week ago. Now having decrease appetite asthenia myopathy, gait dysfunction from the same. Patient is not hypoxic. No obvious fever. 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 Started IV fluids. We'll give a short burst of steroids. Given that patient is on prednisone. Otherwise steroids are not indicated from a COVID standpoint. Add subcu Lovenox. Sodium Pepcid. Add zinc. PTOT. Consult nephrology. Care was discussed with the patient. Past Medical History Past Medical History: Asthma, Diabetes Mellitus, Dialysis, Eye Disorder, Hype rlipidemia, Hypertension, Renal Disease, Skin Disorder Additional Past Medical History / Comment(s): +covid last week, IDDM type II, neuropathy bilateral legs/feet, ESRD with past peritoneal/hemodialysis then in 2016 had renal transplant, UTI with sepsis, IBS, benign colon polyps, chronic low back pain, migraines, R eye retinal bleed with injections, L eye detached retina with surgery, anemia, History of Any Multi-Drug Resistant Organisms: ESBL Date of last positivie culture/infection: 2011 approx(PREVIOUSLY CHARTED) MDRO Source:: peritoneal dialysis cath Past Surgical History: Cholecystectomy, Hysterectomy, Orthopedic Surgery Additional Past Surgical History / Comment(s): Peritoneal dialysis cath since removed, hemodialysis cath since removed, 2016 renal transplant, EGD, colonoscopies/benign polypectomy, bilateral eye cataract removals, L eye detached retinal surgery, L knee arthroscopy Past Anesthesia/Blood Transfusion Reactions: No Reported Reaction Additional Past Anesthesia/Blood Transfusion Reaction / Comment(s): has had a hard time coming out of anesthesia Smoking Status: Former smoker - Past Family History Mother History Unknown: Yes Additional Family Medical History / Comment(s): Mother of poisoning when pt was 11 yrs old. Father Family Medical History: Vascular Disorder Additional Family Medical History / Comment(s): brain aneurysm Medications and Allergies Home Medications Medication Instructions Recorded Confirmed Type Tacrolimus [Prograf] 4 mg PO DAILY 07/26/16 04/25/20 History Albuterol Nebulized [Ventolin 2.5 mg INHALATION RT-QID PRN 08/11/16 04/25/20 History Nebulized] Aspirin 81 mg PO DAILY 08/11/16 04/25/20 History Atorvastatin Calcium [Lipitor] 10 mg PO HS 08/11/16 04/25/20 History Sodium Bicarbonate Tab 650 mg PO TID 08/11/16 04/25/20 History amLODIPine [Norvasc] 10 mg PO DAILY 08/11/16 04/25/20 History carvediloL [Coreg*] 12.5 mg PO BID 08/11/16 04/25/20 History Ergocalciferol (Vitamin D2) 50,000 unit PO PARRISH 08/25/17 04/25/20 History [Vitamin D2] predniSONE 5 mg PO DAILY 08/25/17 04/25/20 History Tacrolimus [Prograf] 3 mg PO HS 06/01/18 04/25/20 History Albuterol Inhaler [Ventolin Hfa 1 - 2 puff INHALATION RT-Q4H PRN 04/18/20 04/25/20 History Inhaler] HYDROcodone/APAP 7.5-325MG [[place] 1 tab PO Q8H PRN 04/18/20 04/25/20 History 7.5-325] Insulin Glargine,Hum.rec.anlog 35 unit SQ HS 04/18/20 04/25/20 History [Lantus Solostar] Losartan Potassium 100 mg PO DAILY 04/18/20 04/25/20 History Olopatadine HCl [Pazeo] 1 drop BOTH EYES DAILY PRN 04/18/20 04/25/20 History Thiamine [Vitamin B-1] 250 mg PO BID 04/18/20 04/25/20 History traMADol HCl [Ultram] 50 - 100 mg PO Q6H PRN 04/18/20 04/25/20 History Cyanocobalamin [Vitamin B-12 1,000 mcg SQ Q30D 04/25/20 04/25/20 History Injection] Insulin Lispro [humaLOG Kwikpen] See Protocol SQ AC-TID 04/25/20 04/25/20 H istory Mycophenolate Sodium [Mycophenolic 360 mg PO BID 04/25/20 04/25/20 History Acid] Allergies Allergy/AdvReac Type Severity Reaction Status Date / Time hydralazine [From Apresoline] Allergy Rash/Hives Verified 04/25/20 11:03 Iodinated Contrast Media Allergy Unknown Verified 04/25/20 11:03 [Iodinated Contrast- Oral and IV Dye] meperidine [From Demerol] Allergy Anaphylaxis Verified 04/25/20 11:03 Physical Exam Vitals: Vital Signs Temp Pulse Pulse Resp BP BP Pulse Ox 04/25/20 20:26 97.9 F 112 H 18 158/84 95 04/25/20 17:20 98 F 96 18 185/95 99 04/25/20 16:39 99 04/25/20 16:12 98 F 96 18 185/95 98 04/25/20 14:12 98 F 112 H 18 179/99 98 04/25/20 11:03 98 F 111 H 18 149/85 98 Intake and Output 04/25/20 04/25/20 04/25/20 06:59 14:59 22:59 Other: # Voids 1 # Bowel Movements 1 Weight 87.997 kg 87.997 kg Results CBC & Chem 7: 04/25/20 12:25 04/25/20 12:25 Labs: Abnormal Lab Results - Last 24 Hours (Table) 04/25/20 04/25/20 04/25/20 Range/Units 12:25 12:25 12:25 Hgb 11.2 L (11.4-16.0) gm/dL MCHC 30.6 L (31.0-37.0) g/dL Neutrophils # 8.6 H (1.3-7.7) k/uL Lymphocytes # 0.6 L (1.0-4.8) k/uL Sodium 133 L (137-145) mmol/L Carbon Dioxide 20 L (22-30) mmol/L BUN 23 H (7-17) mg/dL Creatinine 1.15 H (0.52-1.04) mg/dL Glucose 436 H (74-99) mg/dL POC Glucose (mg/dL) (75-99) mg/dL Lactate Dehydrogenase 659 H (313-618) U/L C-Reactive Protein 409.4 H (<10.0) mg/L Albumin 3.1 L (3.5-5.0) g/dL Procalcitonin 0.87 H (0.02-0.09) ng/mL Urine Appearance (Clear) Urine Protein (Negative) Urine Glucose (UA) (Negative) Urine Ketones (Negative) Urine Blood (Negative) Ur Leukocyte Esterase (Negative) Urine RBC (0-5) /hpf Urine WBC (0-5) /hpf Urine Mucus (None) /hpf 04/25/20 04/25/20 04/25/20 Range/Units 16:07 16:15 18:30 Hgb (11.4-16.0) gm/dL MCHC (31.0-37.0) g/dL Neutrophils # (1.3-7.7) k/uL Lymphocytes # (1.0-4.8) k/uL Sodium (137-145) mmol/L Carbon Dioxide (22-30) mmol/L BUN (7-17) mg/dL Creatinine (0.52-1.04) mg/dL Glucose (74-99) mg/dL POC Glucose (mg/dL) 499 H 379 H (75-99) mg/dL Lactate Dehydrogenase (313-618) U/L C-Reactive Protein (<10.0) mg/L Albumin (3.5-5.0) g/dL Procalcitonin (0.02-0.09) ng/mL Urine Appearance Cloudy H (Clear) Urine Protein 2+ H (Negative) Urine Glucose (UA) 4+ H (Negative) Urine Ketones 1+ H (Negative) Urine Blood Trace H (Negative) Ur Leukocyte Esterase Moderate H (Negative) Urine RBC 7 H (0-5) /hpf Urine WBC 10 H (0-5) /hpf Urine Mucus Rare H (None) /hpf 04/25/20 Range/Units 20:33 Hgb (11.4-16.0) gm/dL MCHC (31.0-37.0) g/dL Neutrophils # (1.3-7.7) k/uL Lymphocytes # (1.0-4.8) k/uL Sodium (137-145) mmol/L Carbon Dioxide (22-30) mmol/L BUN (7-17) mg/dL Creatinine (0.52-1.04) mg/dL Glucose (74-99) mg/dL POC Glucose (mg/dL) 274 H (75-99) mg/dL Lactate Dehydrogenase (313-618) U/L C-Reactive Protein (<10.0) mg/L Albumin (3.5-5.0) g/dL Procalcitonin (0.02-0.09) ng/mL Urine Appearance (Clear) Urine Protein (Negative) Urine Glucose (UA) (Negative) Urine Ketones (Negative) Urine Blood (Negative) Ur Leukocyte Esterase (Negative) Urine RBC (0-5) /hpf Urine WBC (0-5) /hpf Urine Mucus (None) /hpf Thrombosis Risk Factor Assmnt - Choose All That Apply Any of the Below Risk Factors Present?: Yes Each Factor Represents 1 point: Obesity (BMI >25) Other Risk Factors: Yes Each Risk Factor Represents 2 Points: Age 61-74 years Other congenital or acquired thrombophilia - If yes, enter type in comment: No Thrombosis Risk Factor Assessment Total Risk Factor Score: 3 Thrombosis Risk Factor Assessment Level: Moderate Risk
[2020-04-25] MEDS: ZINC SULFATE 220 MG CAP PO SCH (23:01)
[2020-04-25] MEDS: HYDROCORTISONE SUCCINATE 100 MG/2 ML VIAL IV SCH (23:01)
[2020-04-25] MEDS: ENOXAPARIN 40 MG/0.4 ML SYRINGE SQ SCH (23:01)
[2020-04-25] MEDS ORDERED: ONDANSETRON 4 MG/2 ML VIAL IVP PRN (23:24)
[2020-04-26] MEDS ORDERED: HYDROCORTISONE SUCCINATE 100 MG/2 ML VIAL IV SCH
[2020-04-26] MEDS: SODIUM CHLORIDE 0.9% 1,000 ML IV SCH ×4 (04:46→23:50)
[2020-04-26 04:51] LABS: Ferritin 5649.3 ng/mL (10.0-291.0)
[2020-04-26 07:34] LABS: Glucose,Whole Blood 112 mg/dL (75-99)
[2020-04-26] MEDS: INSULIN ASPART (NovoLOG) 100 UNIT/ML VIAL SQ SCH ×4 (07:37→21:30)
[2020-04-26] MEDS ORDERED: predniSONE 5 MG TAB PO SCH (09:00)
[2020-04-26] MEDS ORDERED: LOSARTAN 50 MG TAB PO SCH (09:00)
[2020-04-26] MEDS ORDERED: amLODIPine 10 MG TAB PO SCH (09:00)
[2020-04-26] MEDS: ENOXAPARIN 40 MG/0.4 ML SYRINGE SQ SCH (09:20)
[2020-04-26] MEDS: MYCOPHENOLATE SODIUM DR 180 MG TABLET.DR PO SCH (09:21)
[2020-04-26] MEDS: THIAMINE 100 MG TAB PO SCH ×2 (09:21→21:29)
[2020-04-26] MEDS: HYDROCORTISONE SUCCINATE 100 MG/2 ML VIAL IV SCH ×2 (09:21→17:20)
[2020-04-26] MEDS: FAMOTIDINE 20 MG TAB PO SCH (09:21)
[2020-04-26] MEDS: carvediloL 12.5 MG TAB PO SCH ×2 (09:22→21:30)
[2020-04-26] MEDS: ASCORBIC ACID 500 MG TAB PO SCH ×2 (09:22→21:30)
[2020-04-26] MEDS: ASPIRIN 81 MG PO SCH (09:22)
[2020-04-26] MEDS: TACROLIMUS 1 MG CAP PO SCH ×2 (09:22→21:29)
[2020-04-26] MEDS: amLODIPine 10 MG TAB PO SCH (09:23)
[2020-04-26] MEDS: SODIUM BICARBONATE TAB 650 MG TAB PO SCH ×3 (09:23→21:31)
[2020-04-26] MEDS: LOSARTAN 50 MG TAB PO SCH (09:24)
[2020-04-26] MEDS: ZINC SULFATE 220 MG CAP PO SCH (09:24)
--- NOTE | 2020-04-26 11:40 | P.NPCON ---
History of Present Illness - Reason for Consult chronic renal failure - History of Present Illness Reason for consultation: Chronic kidney disease and post transplant management History of present illness: Patient is a 69-year-old female seen in renal consultation for chronic kidney disease and renal transplant management. Patient received a donor renal allograft in July 2015 due to diabetic kidney disease. Patient's baseline creatinine is near 1.1-1.2. Patient is maintained on Prograf as well as Myfortic 360 mg twice daily and prednisone 5 mg once daily. Patient states she tested positive for Covid about a week ago and so did her . Patient has been feeling quite weak and fatigued. She was found laying in her stool at home and was brought to the hospital. She is currently awake and alert. She is maintained on IV fluids. Denies any significant cough, chest pain or shortness of breath. She has been voiding. No hematuria or dysuria. Creatinine was 1.15 as of yesterday. Oral intake . has been down for the last week She denies vomiting or diarrhea. Afebrile this morning. Patient is a diabetic and is maintained on insulin. Vital signs are stable. General: The patient appeared well nourished and normally developed. HEENT: Head exam is unremarkable. Neck is without jugular venous distension. LUNGS: Breath sounds decreased. HEART: Rate and Rhythm are regular. ABDOMEN: Soft, nontender. EXTREMITITES: No edema. Past Medical History Past Medical History: Asthma, Diabetes Mellitus, Dialysis, Eye Disorder, Hyperlipidemia, Hypertension, Renal Disease, Skin Disorder Additional Past Medical History / Comment(s): +covid last week, IDDM type II, neuropathy bilateral legs/feet, ESRD with past peritoneal/hemodialysis then in 2015 had renal transplant, UTI with sepsis, IBS, benign colon polyps, chronic low back pain, migraines, R eye retinal bleed with injections, L eye detached retina with surgery, anemia, History of Any Multi-Drug Resistant Organisms: ESBL Date of last positivie culture/infection: 2011 approx(PREVIOUSLY CHARTED) MDRO Source:: peritoneal dialysis cath Past Surgical History: Cholecystectomy, Hysterectomy, Orthopedic Surgery Additional Past Surgical History / Comment(s): Peritoneal dialysis cath since removed, hemodialysis cath since removed, 2016 renal transplant, EGD, colonoscopies/benign polypectomy, bilateral eye cataract removals, L eye detached retinal surgery, L knee arthroscopy Past Anesthesia/Blood Transfusion Reactions: No Reported Reaction Additional Past Anesthesia/Blood Transfusion Reaction / Comment(s): has had a hard time coming out of anesthesia Smoking Status: Former smoker - Past Family History Mother History Unknown: Yes Additional Family Medical History / Comment(s): Mother of poisoning when pt was 11 yrs old. Father Family Medical History: Vascular Disorder Additional Family Medical History / Comment(s): brain aneurysm Medications and Allergies Home Medications Medication Instructions Recorded Confirmed Type Tacrolimus [Prograf] 4 mg PO DAILY 07/26/16 04/25/20 History Albuterol Nebulized [Ventolin 2.5 mg INHALATION RT-QID PRN 08/11/16 04/25/20 History Nebulized] Aspirin 81 mg PO DAILY 08/11/16 04/25/20 History Atorvastatin Calcium [Lipitor] 10 mg PO HS 08/11/16 04/25/20 History Sodium Bicarbonate Tab 650 mg PO TID 08/11/16 04/25/20 History amLODIPine [Norvasc] 10 mg PO DAILY 08/11/16 04/25/20 History carvediloL [Coreg*] 12.5 mg PO BID 08/11/16 04/25/20 History Ergocalciferol (Vitamin D2) 50,000 unit PO PARRISH 08/25/17 04/25/20 History [Vitamin D2] predniSONE 5 mg PO DAILY 08/25/17 04/25/20 History Tacrolimus [Prograf] 3 mg PO HS 06/01/18 04/25/20 History Albuterol Inhaler [Ventolin Hfa 1 - 2 puff INHALATION RT-Q4H PRN 04/18/20 04/25/20 History Inhaler] HYDROcodone/APAP 7.5-325MG [[place] 1 tab PO Q8H PRN 04/18/20 04/25/20 History 7.5-325] Insulin Glargine,Hum.rec.anlog 35 unit SQ HS 04/18/20 04/25/20 History [Lantus Solostar] Losartan Potassium 100 mg PO DAILY 04/18/20 04/25/20 History Olopatadine HCl [Pazeo] 1 drop BOTH EYES DAILY PRN 04/18/20 04/25/20 History Thiamine [Vitamin B-1] 250 mg PO BID 04/18/20 04/25/20 History traMADol HCl [Ultram] 50 - 100 mg PO Q6H PRN 04/18/20 04/25/20 History Cyanocobalamin [Vitamin B-12 1,000 mcg SQ Q30D 04/25/20 04/25/20 History Injection] Insulin Lispro [humaLOG Kwikpen] See Protocol SQ AC-TID 04/25/20 04/25/20 History Mycophenolate Sodium [Mycophenolic 360 mg PO BID 04/25/20 04/25/20 History Acid] Allergies Allergy/AdvReac Type Severity Reaction Status Date / Time hydralazine [From Apresoline] Allergy Rash/Hives Verified 04/25/20 11:03 Iodinated Contrast Media Allergy Unknown Verified 04/25/20 11:03 [Iodinated Contrast- Oral and IV Dye] meperidine [From Demerol] Allergy Anaphylaxis Verified 04/25/20 11:03 Physical Exam Vitals: Vital Signs Temp Pulse Pulse Resp BP BP Pulse Ox 04/26/20 04:09 97.5 F L 78 17 156/79 100 04/25/20 20:26 97.9 F 112 H 18 158/84 95 04/25/20 17:20 98 F 96 18 185/95 99 04/25/20 16:39 99 04/25/20 16:12 98 F 96 18 185/95 98 04/25/20 14:12 98 F 112 H 18 179/99 98 Intake and Output 04/25/20 04/26/20 04/26/20 22:59 06:59 14:59 Other: Voiding Method Toilet Bedpan # Voids 1 1 1 # Bowel Movements 1 Weight 87.997 kg Results - Lab Results Most recent lab results Calcium 10.2 mg/dL (8.4-10.2) 04/25/20 12:25 Magnesium 1.6 mg/dL (1.6-2.3) 04/25/20 12:25 04/25/20 12:25 04/25/20 12:25 Assessment and Plan Plan: Assessment: 1. Chronic kidney disease stage IIIa secondary to calcineurin inhibitor use and a solitary kidney as well as possible diabetic kidney disease as she does have proteinuria. Baseline creatinine 1.1-1.2. 2. Status post donor renal allograft in July 2015 due to diabetic kidney disease. 3. Metabolic acidosis secondary to IV fluids and chronic kidney disease. Maintained on oral bicarbonate. 4. Insulin-dependent diabetes mellitus. 5. COVID-19 infection. 6. Hypertension with chronic kidney disease. Plan: Maintain IV fluids. Hold Myfortic due to active infection. Maintain Prograf. Prednisone held as she is currently on IV Solu-Cortef. Check a.m. Prograf level. Thank you for the consultation. I will continue to follow the patient with you during her hospital stay.
[2020-04-26 11:59] LABS: Glucose,Whole Blood 214 mg/dL (75-99)
[2020-04-26] MEDS: HYDROcodone/APAP 7.5-325MG 1 EACH TAB PO PRN (14:43)
[2020-04-26 14:52] VITALS: BMI 34.3
[2020-04-26 17:39] LABS: Glucose,Whole Blood 195 mg/dL (75-99)
[2020-04-26 18:11] LABS: African American GFR (CKD) 48.5 (60.0-200.0); Anion Gap 10.7 mmol/L (4.00-12.00); BUN/Creat Ratio 17.69 Ratio (12.00-20.00); Calcium 9.7 mg/dL (8.7-10.3); Carbon Dioxide 18.3 mmol/L (21.6-31.8); Non-African American GFR(CKD) 41.8 (60.0-200.0); Potassium 4.4 mmol/L (3.5-5.5)
[2020-04-26 21:27] LABS: Glucose,Whole Blood 292 mg/dL (75-99)
[2020-04-26] MEDS: INSULIN DETEMIR (LEVEMIR) 100 UNIT/ML SYR SQ SCH (21:30)
[2020-04-26] MEDS: ATORVASTATIN 10 MG TAB PO SCH (21:30)
--- NOTE | 2020-04-26 21:35 | P.PN ---
Progress Note - Text Progress Note Date: 04/26/20 Chief Complaint: We tired History of presenting complaint: This is a pleasant 69-year-old patient, Dr. Raza Purcell. Chronic stable medical conditions include asthma, diabetes, hypertension, hyperlipidemia, peripheral neuropathy, irritable bowel syndrome, chronic low back pain, right eye retinal bleed with injections, left eye detached retina with surgery end- stage kidney disease with past peritoneal hemodialysis that in 2016 had renal transplant. Patient presented to the ER primarily with it symptoms of feeling weak. She was diagnosed with trotter virus 1 week ago. Has been feeling very tired and rundown. Appetite is gone down. Finding it trouble to walk. Couple of loose stools. Some achiness in the body. No loss of smell or taste. Feels rundown. Very slight shortness of breath. Mild COVID 19 pneumonia. Started on stress dose of IV Solu-Cortef, IV fluids, subcu Lovenox. Today-feeling a bit better. Oral intake better. Has been in bed. Review of systems: Was done for constitutional, cardiovascular, GI, pulmonary. relevant finding as above Active Medications Acetaminophen (Acetaminophen Tab 325 Mg Tab) 650 mg PO Q6HR PRN PRN Reason: Mild Pain or Fever > 100.5 Hydrocodone Bitart/Acetaminophen (Hydrocodone/Apap 7.5-325mg 1 Each Tab) 1 each PO Q8H PRN PRN Reason: Pain Last Admin: 04/26/20 14:43 Dose: 1 each Documented by: Albuterol Sulfate (Albuterol Hfa Inhaler) 2 puff INHALATION RT-QID PRN PRN Reason: Shortness Of Breath Last Admin: 04/25/20 16:35 Dose: 2 puff Documented by: Amlodipine Besylate (Amlodipine 10 Mg Tab) 10 mg PO DAILY [facility] Last Admin: 04/26/20 09:23 Dose: 10 mg Documented by: Ascorbic Acid (Ascorbic Acid 500 Mg Tab) 500 mg PO BID [facility] Last Admin: 04/26/20 21:30 Dose: 500 mg Documented by: Aspirin (Aspirin 81 Mg) 81 mg PO DAILY [facility] Last Admin: 04/26/20 09:22 Dose: 81 mg Documented by: Atorvastatin Calcium (Atorvastatin 10 Mg Tab) 10 mg PO HS [facility] Last Admin: 04/26/20 21:30 Dose: 10 mg Documented by: Carvedilol (Carvedilol 12.5 Mg Tab) 12.5 mg PO BID [facility] Last Admin: 04/26/20 21:30 Dose: 12.5 mg Documented by: Enoxaparin Sodium (Enoxaparin 40 Mg/0.4 Ml Syringe) 40 mg SQ DAILY [facility] Last Admin: 04/26/20 09:20 Dose: 40 mg Documented by: Ergocalciferol (Ergocalciferol 50,000 Unit Cap) 50,000 unit PO PARRISH [facility] Famotidine (Famotidine 20 Mg Tab) 20 mg PO DAILY [facility] Hydrocortisone Sodium Succinate (Hydrocortisone Succinate 100 Mg/2 Ml Vial) 50 mg IV Q8HR [facility] Last Admin: 04/26/20 17:20 Dose: 50 mg Documented by: Sodium Chloride (Saline 0.9%) 1,000 mls @ 100 mls/hr IV .Q10H [facility] Last Admin: 04/26/20 13:02 Dose: 100 mls/hr Documented by: Insulin Aspart (Insulin Aspart (Novolog) 100 Unit/Ml Vial) 0 unit SQ [facility]; Protocol Last Admin: 04/26/20 21:30 Dose: 5 unit Documented by: Insulin Detemir (Insulin Detemir (Levemir) 100 Unit/Ml Syr) 35 unit SQ [facility] Last Admin: 04/26/20 21:30 Dose: 35 unit Documented by: Ketotifen Fumarate (Ketotifen 0.025% Ophth Drops 5 Ml Btl) 1 drops BOTH EYES BID PRN PRN Reason: DRY EYES Losartan Potassium (Losartan 50 Mg Tab) 100 mg PO DAILY [facility] Last Admin: 04/26/20 09:24 Dose: 100 mg Documented by: Naloxone HCl (Naloxone 0.4 Mg/Ml 1 Ml Vial) 0.2 mg IV Q2M PRN PRN Reason: Opioid Reversal Ondansetron HCl (Ondansetron 4 Mg/2 Ml Vial) 4 mg IVP Q6HR PRN PRN Reason: Nausea And Vomiting Last Admin: 04/25/20 23:30 Dose: 4 mg Documented by: Sodium Bicarbonate (Sodium Bicarbonate Tab 650 Mg Tab) 650 mg PO TID [facility] Last Admin: 04/26/20 21:31 Dose: 650 mg Documented by: Tacrolimus (Tacrolimus 1 Mg Cap) 3 mg PO HS [facility] Last Admin: 04/26/20 21:29 Dose: 3 mg Documented by: Tacrolimus (Tacrolimus 1 Mg Cap) 4 mg PO DAILY [facility] Last Admin: 04/26/20 09:22 Dose: 4 mg Documented by: Thiamine HCl (Thiamine 100 Mg Tab) 250 mg PO BID [facility] Last Admin: 04/26/20 21:29 Dose: 250 mg Documented by: Zinc Sulfate (Zinc Sulfate 220 Mg Cap) 220 mg PO DAILY [facility] Last Admin: 04/26/20 09:24 Dose: 220 mg Documented by: Physical examination: VITAL SIGNS: 97.5, 78, 17, 156/79, 100% room air GENERAL: BMI 34.4, laying in bed, less tired appearing PSYCH: Alert and oriented x3; mood and affect normal. Additional exam as per nursing in nephrology INVESTIGATIONS, reviewed in the clinical context: Potassium 4.4 creatinine 1.3 White count 10.2 hemoglobin 11.2 neutrophils 8.6 lymphocytes 0.6 potassium 5.0 BUN 23 creatinine 1.15 Blood glucose 436 CRP 409 pro-calcitonin 0.87 UA positive for leukoesterase, WBC EKG tracing personally reviewed by me-sinus rhythm, poor R-wave progression Check stat x-ray film-possible infiltrate Assessment: -Mild COVID 19 pneumonia in a patient tested +1 week ago. Now having decrease appetite asthenia myopathy, gait dysfunction from the same. Patient is not hypoxic. No obvious fever. 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 -Status post diseased donor renal allograft and [place] 2015 due to diabetic kidney disease -Metabolic acidosis due to chronic kidney disease Plan: Cutback Solu-Cortef to 25 mg every 8. Other medications to continue. Decrease IV fluids. Medication and encouraged to be out of bed in a chair.
[2020-04-27] MEDS: HYDROCORTISONE SUCCINATE 100 MG/2 ML VIAL IV SCH ×2 (01:32→09:21)
[2020-04-27] MEDS: HYDROcodone/APAP 7.5-325MG 1 EACH TAB PO PRN (03:55)
[2020-04-27 07:53] LABS: Glucose,Whole Blood 97 mg/dL (75-99)
[2020-04-27] MEDS: INSULIN ASPART (NovoLOG) 100 UNIT/ML VIAL SQ SCH ×4 (07:55→20:16)
[2020-04-27] MEDS ORDERED: ERGOCALCIFEROL 50,000 UNIT CAP PO SCH (09:00)
[2020-04-27] MEDS: ENOXAPARIN 40 MG/0.4 ML SYRINGE SQ SCH (09:21)
[2020-04-27] MEDS: ZINC SULFATE 220 MG CAP PO SCH (09:22)
[2020-04-27] MEDS: LOSARTAN 50 MG TAB PO SCH (09:22)
[2020-04-27] MEDS: TACROLIMUS 1 MG CAP PO SCH ×2 (09:22→20:16)
[2020-04-27] MEDS: carvediloL 12.5 MG TAB PO SCH ×2 (09:23→20:15)
[2020-04-27] MEDS: THIAMINE 100 MG TAB PO SCH ×2 (09:23→20:15)
[2020-04-27] MEDS: FAMOTIDINE 20 MG TAB PO SCH (09:23)
[2020-04-27] MEDS: SODIUM BICARBONATE TAB 650 MG TAB PO SCH ×3 (09:23→20:15)
[2020-04-27] MEDS: amLODIPine 10 MG TAB PO SCH (09:23)
[2020-04-27] MEDS: ASPIRIN 81 MG PO SCH (09:23)
[2020-04-27] MEDS: ASCORBIC ACID 500 MG TAB PO SCH ×2 (09:23→20:16)
--- NOTE | 2020-04-27 10:26 | P.PN ---
Subjective Patient is seen in follow-up for chronic kidney disease and renal transplant management. Patient received a donor renal allograft in July 2015 due to diabetic kidney disease. Creatinine 1.3 as of yesterday. Oral intake fair. No vomiting or diarrhea. No edema. Maintained on IV fluids. Vital signs are stable. General: The patient appeared well nourished and normally developed. HEENT: Head exam is unremarkable. Neck is without jugular venous distension. Heart: Regular rate and rhythm. LUNGS: Breath sounds decreased. EXTREMITITES: No edema. Objective - Vital Signs Vital signs: Vital Signs Temp 97.9 F 04/27/20 05:00 Pulse 79 04/27/20 05:00 Resp 18 04/27/20 05:00 BP 128/84 04/27/20 05:00 Pulse Ox 99 04/27/20 05:00 Intake & Output 04/26/20 04/27/20 04/27/20 18:59 06:59 18:59 Intake Total 800 1280 Output Total 300 Balance 800 980 Weight 87.997 kg Intake: Intake, IV Titration 800 800 Amount Sodium Chloride 0.9% 1, 800 400 000 ml @ 100 mls/hr IV . Q10H [facility] Rx#:[id number] Sodium Chloride 0.9% 1, 400 000 ml @ 50 mls/hr IV . Q20H [facility] Rx#:[id number] Oral 480 Output: Urine 300 Other: Voiding Method Bedpan Bedpan # Voids 1 1 - Labs CBC & Chem 7: 04/25/20 12:25 04/26/20 10:42 Labs: Abnormal Lab Results - Last 24 Hours (Table) 04/26/20 04/26/20 04/26/20 Range/Units 10:42 11:42 17:30 Sodium 134 L (135-145) mmol/L Carbon Dioxide 18.3 L (21.6-31.8) mmol/L Est GFR (CKD-EPI)AfAm 48.5 L (60.0-200.0) Est GFR (CKD-EPI)NonAf 41.8 L (60.0-200.0) Glucose 200 H (70-110) mg/dL POC Glucose (mg/dL) 214 H 195 H (75-99) mg/dL 04/26/20 Range/Units 21:08 Sodium (135-145) mmol/L Carbon Dioxide (21.6-31.8) mmol/L Est GFR (CKD-EPI)AfAm (60.0-200.0) Est GFR (CKD-EPI)NonAf (60.0-200.0) Glucose (70-110) mg/dL POC Glucose (mg/dL) 292 H (75-99) mg/dL Microbiology - Last 24 Hours (Table) 04/25/20 12:25 Blood Culture - Preliminary Blood No Growth after 24 hours Assessment and Plan Plan: Assessment: 1. Chronic kidney disease stage IIIa secondary to calcineurin inhibitor use and a solitary kidney as well as possible diabetic kidney disease as she does have proteinuria. Baseline creatinine 1.1-1.2. 2. Status post donor renal allograft in July 2015 due to diabetic kidney disease. 3. Metabolic acidosis secondary to IV fluids and chronic kidney disease. Ma intained on oral bicarbonate. 4. Insulin-dependent diabetes mellitus. 5. COVID-19 infection. Maintained on steroids and zinc. 6. Hypertension with chronic kidney disease. Controlled this morning. Plan: Maintain IV fluids. Hold Myfortic due to active infection. Maintain Prograf. Prednisone held as she is currently on IV Solu-Cortef. Follow-up a.m. Prograf level. Continue to monitor renal function and urine output.
[2020-04-27] MEDS ORDERED: predniSONE 20 MG TAB PO SCH (11:00)
[2020-04-27 11:12] LABS: Glucose,Whole Blood 162 mg/dL (75-99)
[2020-04-27 12:37] LABS: African American GFR (CKD) 44.3 (60.0-200.0); Anion Gap 9.3 mmol/L (4.00-12.00); Calcium 9.8 mg/dL (8.7-10.3); Carbon Dioxide 23.7 mmol/L (21.6-31.8); Magnesium 1.6 mg/dL (1.5-2.4); Non-African American GFR(CKD) 38.2 (60.0-200.0); Potassium 3.9 mmol/L (3.5-5.5)
[2020-04-27 17:00] LABS: Glucose,Whole Blood 212 mg/dL (75-99)
[2020-04-27 19:32] LABS: Glucose,Whole Blood 316 mg/dL (75-99)
--- NOTE | 2020-04-27 19:48 | US ---
EXAMINATION TYPE: US kidneys/renal and bladder DATE OF EXAM: 04/27/2020 COMPARISON: NONE CLINICAL HISTORY: deloris. Covid patient, deloris, h/o right pelvic transplanted kidney 4 years ago, no issue s per patient EXAM MEASUREMENTS: Right Kidney: 5.0 x 2.7 x 3.0 cm Left Kidney: unable to image Right Kidney: limited views of atrophic right kidney Left Kidney: unable to image [place] kidney due to atrophic size and bowel gas Bladder: wnl Right pelvic transplanted kidney: 9.8 x 6.3 x 5.6cm, dilated renal pelvis with good blood flow seen w ithin renal vein and renal artery. IMPRESSION: Right pelvic transplant kidney with mildly dilated renal pelvis/borderline hydronephrosis nonspecific . Atrophic [place]sp[place] kidneys.
[2020-04-27] MEDS: ATORVASTATIN 10 MG TAB PO SCH (20:15)
[2020-04-27] MEDS: SODIUM CHLORIDE 0.9% 1,000 ML IV SCH (20:17)
[2020-04-27] MEDS: INSULIN DETEMIR (LEVEMIR) 100 UNIT/ML SYR SQ SCH (21:14)
--- NOTE | 2020-04-27 21:18 | P.PN ---
Progress Note - Text Progress Note Date: 04/27/20 Chief Complaint: We tired History of presenting complaint: This is a pleasant 69-year-old patient, Dr. Raza Purcell. Chronic stable medical conditions include asthma, diabetes, hypertension, hyperlipidemia, peripheral neuropathy, irritable bowel syndrome, chronic low back pain, right eye retinal bleed with injections, left eye detached retina with surgery end- stage kidney disease with past peritoneal hemodialysis that in 2016 had renal transplant. Patient presented to the ER primarily with it symptoms of feeling weak. She was diagnosed with trotter virus 1 week ago. Has been feeling very tired and rundown. Appetite is gone down. Finding it trouble to walk. Couple of loose stools. Some achiness in the body. No loss of smell or taste. Feels rundown. Very slight shortness of breath. Mild COVID 19 pneumonia. Started on stress dose of IV Solu-Cortef, IV fluids, subcu Lovenox. Today-feeling better. Use bedside commode. Oral intake more than 50% of her meals.. No respiratory symptoms. Nurse informed me that arrangements are being made for patient to go home. That'll happen tomorrow. Review of systems: Was done for constitutional, cardiovascular, GI, pulmonary. relevant finding as above Active Medications Acetaminophen (Acetaminophen Tab 325 Mg Tab) 650 mg PO Q6HR PRN PRN Reason: Mild Pain or Fever > 100.5 Hydrocodone Bitart/Acetaminophen (Hydrocodone/Apap 7.5-325mg 1 Each Tab) 1 each PO Q8H PRN PRN Reason: Pain Last Admin: 04/27/20 03:55 Dose: 1 each Documented by: Albuterol Sulfate (Albuterol Hfa Inhaler) 2 puff INHALATION RT-QID PRN PRN Reason: Shortness Of Breath Last Admin: 04/25/20 16:35 Dose: 2 puff Documented by: Amlodipine Besylate (Amlodipine 10 Mg Tab) 10 mg PO DAILY [facility] Last Admin: 04/27/20 09:23 Dose: 10 mg Documented by: Ascorbic Acid (Ascorbic Acid 500 Mg Tab) 500 mg PO BID [facility] Last Admin: 04/27/20 20:16 Dose: 500 mg Documented by: Aspirin (Aspirin 81 Mg) 81 mg PO DAILY [facility] Last Admin: 04/27/20 09:23 Dose: 81 mg Documented by: Atorvastatin Calcium (Atorvastatin 10 Mg Tab) 10 mg PO [facility] Last Admin: 04/27/20 20:15 Dose: 10 mg Documented by: Carvedilol (Carvedilol 12.5 Mg Tab) 12.5 mg PO BID [facility] Last Admin: 04/27/20 20:15 Dose: 12.5 mg Documented by: Enoxaparin Sodium (Enoxaparin 40 Mg/0.4 Ml Syringe) 40 mg SQ DAILY [facility] Last Admin: 04/27/20 09:21 Dose: 40 mg Documented by: Ergocalciferol (Ergocalciferol 50,000 Unit Cap) 50,000 unit PO PARRISH [facility] Last Admin: 04/27/20 09:22 Dose: 50,000 unit Documented by: Famotidine (Famotidine 20 Mg Tab) 20 mg PO DAILY [facility] Last Admin: 04/27/20 09:23 Dose: 20 mg Documented by: Sodium Chloride (Saline 0.9%) 1,000 mls @ 50 mls/hr IV .Q20H [facility] Last Admin: 04/27/20 20:17 Dose: Not Given Documented by: Insulin Aspart (Insulin Aspart (Novolog) 100 Unit/Ml Vial) 0 unit SQ [facility]; Protocol Last Admin: 04/27/20 20:16 Dose: 5 unit Documented by: Insulin Detemir (Insulin Detemir (Levemir) 100 Unit/Ml Syr) 35 unit SQ [facility] Last Admin: 04/26/20 21:30 Dose: 35 unit Documented by: Ketotifen Fumarate (Ketotifen 0.025% Ophth Drops 5 Ml Btl) 1 drops BOTH EYES BID PRN PRN Reason: DRY EYES Losartan Potassium (Losartan 50 Mg Tab) 100 mg PO DAILY [facility] Last Admin: 04/27/20 09:22 Dose: 100 mg Documented by: Naloxone HCl (Naloxone 0.4 Mg/Ml 1 Ml Vial) 0.2 mg IV Q2M PRN PRN Reason: Opioid Reversal Ondansetron HCl (Ondansetron 4 Mg/2 Ml Vial) 4 mg IVP Q6HR PRN PRN Reason: Nausea And Vomiting Last Admin: 04/25/20 23:30 Dose: 4 mg Documented by: Prednisone (Prednisone 20 Mg Tab) 40 mg PO DAILY [facility] Stop: 04/27/20 23:59 Last Admin: 04/27/20 12:43 Dose: 40 mg Documented by: Prednisone (Prednisone 20 Mg Tab) 20 mg PO DAILY [facility] Sodium Bicarbonate (Sodium Bicarbonate Tab 650 Mg Tab) 650 mg PO TID [facility] Last Admin: 04/27/20 20:15 Dose: 650 mg Documented by: Tacrolimus (Tacrolimus 1 Mg Cap) 3 mg PO HS [facility] Last Admin: 04/27/20 20:16 Dose: 3 mg Documented by: Tacrolimus (Tacrolimus 1 Mg Cap) 4 mg PO DAILY [facility] Last Admin: 04/27/20 09:22 Dose: 4 mg Documented by: Thiamine HCl (Thiamine 100 Mg Tab) 250 mg PO BID [facility] Last Admin: 04/27/20 20:15 Dose: 250 mg Documented by: Zinc Sulfate (Zinc Sulfate 220 Mg Cap) 220 mg PO DAILY [facility] Last Admin: 04/27/20 09:22 Dose: 220 mg Documented by: Physical examination: VITAL SIGNS: 97.6, 73, 16, 144/83, 99% room air GENERAL: Sitting up, appearing much better PSYCH: Alert and oriented x3; mood and affect normal. Additional exam as per nursing and nephrology INVESTIGATIONS, reviewed in the clinical context: Potassium 3.9 creatinine 1.4 Previous testing White count 10.2 hemoglobin 11.2 neutrophils 8.6 lymphocytes 0.6 potassium 5.0 BUN 23 creatinine 1.15 Blood glucose 436 CRP 409 pro-calcitonin 0.87 UA positive for leukoesterase, WBC EKG tracing personally reviewed by me-sinus rhythm, poor R-wave progression Check stat x-ray film-possible infiltrate Assessment: -Mild COVID 19 pneumonia in a patient tested +1 week ago. Now having decrease appetite asthenia myopathy, gait dysfunction from the same. Patient is not hypoxic. No obvious fever. In an immunosuppressed patient. 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 -Status post diseased donor renal allograft and Fabry 2016 due to diabetic kidney disease -Metabolic acidosis due to chronic kidney disease Plan: DC IV Solu-Cortef. Prednisone 40 mg today. Spoke to the nurse. Hopefully home tomorrow after arrangements are made. Otherwise medically stable. Discussed with Dr. Clark. Hold off CellCept for a week.
[2020-04-28 03:52] VITALS: BP 141/95; PULSE 81; RESP 18; TEMP 96.8
[2020-04-28 07:16] LABS: Glucose,Whole Blood 238 mg/dL (75-99)
[2020-04-28] MEDS: LOSARTAN 50 MG TAB PO SCH (08:05)
[2020-04-28] MEDS: INSULIN ASPART (NovoLOG) 100 UNIT/ML VIAL SQ SCH ×2 (08:05→12:33)
[2020-04-28] MEDS: FAMOTIDINE 20 MG TAB PO SCH (08:05)
[2020-04-28] MEDS: THIAMINE 100 MG TAB PO SCH (08:06)
[2020-04-28] MEDS: amLODIPine 10 MG TAB PO SCH (08:06)
[2020-04-28] MEDS: ASCORBIC ACID 500 MG TAB PO SCH (08:06)
[2020-04-28] MEDS: carvediloL 12.5 MG TAB PO SCH (08:06)
[2020-04-28] MEDS: ASPIRIN 81 MG PO SCH (08:06)
[2020-04-28] MEDS: SODIUM BICARBONATE TAB 650 MG TAB PO SCH (08:06)
[2020-04-28] MEDS: TACROLIMUS 1 MG CAP PO SCH (08:07)
[2020-04-28] MEDS: ENOXAPARIN 40 MG/0.4 ML SYRINGE SQ SCH (08:08)
[2020-04-28] MEDS: ALBUTEROL HFA INHALER INHALATION PRN (08:13)
[2020-04-28] MEDS ORDERED: predniSONE 20 MG TAB PO SCH (09:00)
[2020-04-28 09:45] LABS: African American GFR (CKD) 44.3 (60.0-200.0); Anion Gap 9.7 mmol/L (4.00-12.00); BUN/Creat Ratio 25.71 Ratio (12.00-20.00); Calcium 9.8 mg/dL (8.7-10.3); Carbon Dioxide 20.3 mmol/L (21.6-31.8); Magnesium 1.7 mg/dL (1.5-2.4); Non-African American GFR(CKD) 38.2 (60.0-200.0); Potassium 5.1 mmol/L (3.5-5.5)
--- NOTE | 2020-04-28 10:50 | P.PN ---
Subjective Patient is seen in follow-up for chronic kidney disease and renal transplant management. Patient received a donor renal allograft in July 2015 due to diabetic kidney disease. Renal function stable. Oral intake good. No vomiting or diarrhea. No edema. Wants to go home. Vital signs are stable. General: The patient appeared well nourished and normally developed. HEENT: Head exam is unremarkable. Neck is without jugular venous distension. No abdominal distention noted. No gross edema noted. Exam discussed with the nurse. Objective - Vital Signs Vital signs: Vital Signs Temp 96.8 F L 04/28/20 03:51 Pulse 81 04/28/20 03:51 Resp 18 04/28/20 03:51 BP 141/95 04/28/20 03:51 Pulse Ox 99 04/28/20 03:51 Intake & Output 04/27/20 04/28/20 04/28/20 18:59 06:59 18:59 Intake Total 200 240 Output Total 700 Balance 200 -460 Intake: Intake, IV Titration 200 Amount Sodium Chloride 0.9% 1, 200 000 ml @ 50 mls/hr IV . Q20H [facility] Rx#:[id number] Oral 240 Output: Urine 700 Other: Voiding Method Bedpan Bedside Commode Bedpan # Voids 1 - Labs CBC & Chem 7: 04/25/20 12:25 04/28/20 04:11 Labs: Abnormal Lab Results - Last 24 Hours (Table) 04/27/20 04/27/20 04/27/20 Range/Units 08:18 11:11 16:56 Carbon Dioxide (21.6-31.8) mmol/L BUN 28.0 H (9.0-27.0) mg/dL Est GFR (CKD-EPI)AfAm 44.3 L (60.0-200.0) Est GFR (CKD-EPI)NonAf 38.2 L (60.0-200.0) BUN/Creatinine Ratio (12.00-20.00) Ratio Glucose (70-110) mg/dL POC Glucose (mg/dL) 162 H 212 H (75-99) mg/dL 04/27/20 04/28/20 04/28/20 Range/Units 19:21 04:11 07:14 Carbon Dioxide 20.3 L (21.6-31.8) mmol/L BUN 36.0 H (9.0-27.0) mg/dL Est GFR (CKD-EPI)AfAm 44.3 L (60.0-200.0) Est GFR (CKD-EPI)NonAf 38.2 L (60.0-200.0) BUN/Creatinine Ratio 25.71 H (12.00-20.00) Ratio Glucose 297 H (70-110) mg/dL POC Glucose (mg/dL) 316 H 238 H (75-99) mg/dL Microbiology - Last 24 Hours (Table) 04/25/20 12:25 Blood Culture - Preliminary Blood No Growth after 48 hours Assessment and Plan Plan: Assessment: 1. Chronic kidney disease stage IIIa secondary to calcineurin inhibitor use and a solitary kidney as well as possible diabetic kidney disease as she does have proteinuria. Baseline creatinine 1.1-1.2. 2. Status post donor renal allograft in July 2015 due to diabetic kidney disease. 3. Metabolic acidosis secondary to IV fluids and chronic kidney disease. Maintained on oral bicarbonate. 4. Insulin-dependent diabetes mellitus. 5. COVID-19 infection. Maintained on steroids and zinc. 6. Hypertension with chronic kidney disease. Controlled this morning. Plan: Hep-Lock IV fluids. Hold Myfortic due to active infection - can be resumed in 1 week once infection clears. Maintain Prograf and prednisone. Prograf level pending. Continue to monitor renal function and urine output. Repeat BMP, magnesium, Prograf level 3-4 days postdischarge. Follow-up in transplant clinic 1 week post discharge.
[2020-04-28 11:18] LABS: Glucose,Whole Blood 129 mg/dL (75-99)
[2020-04-28] MEDS: ZINC SULFATE 220 MG CAP PO SCH (13:40)
[2020-04-28] MEDS: HYDROcodone/APAP 7.5-325MG 1 EACH TAB PO PRN (13:40)
--- NOTE | 2020-04-29 23:11 | P.DS ---
Providers Date of admission: 04/25/20 14:07 Expected date of discharge: 04/28/20 Attending physician: Sam Pierson Consults: 04/25/20 22:21 Consult Physician Routine Consulting Provider: Juan Manuel Clark Consult Reason/Comments: Renal transplant Do you want consulting provider notified?: Yes Primary care physician: Raza Purcell [place] [facility] Course: Chief Complaint: We tired History of presenting complaint: This is a pleasant 69-year-old patient, Dr. Raza Purcell. Chronic stable medical conditions include asthma, diabetes, hypertension, hyperlipidemia, peripheral neuropathy, irritable bowel syndrome, chronic low back pain, right eye retinal bleed with injections, left eye detached retina with surgery end- stage kidney disease with past peritoneal hemodialysis that in 2016 had renal transplant. Patient presented to the ER primarily with it symptoms of feeling weak. She was diagnosed with trotter virus 1 week ago. Has been feeling very tired and rundown. Appetite is gone down. Finding it trouble to walk. Couple of loose stools. Some achiness in the body. No loss of smell or taste. Feels rundown. Very slight shortness of breath. Mild COVID 19 pneumonia. Started on stress dose of IV Solu-Cortef, IV fluids, subcu Lovenox. Today-during much better. Oral intake good. Discussed with the patient.discussed with Dr. Clark. [place]agandeep to [place].patient's CellCept will be held for a week. Consultation Dr. Clark from nephrology Physical examination: VITAL SIGNS: 86.8, 81, 18, 141/95, 99% room air GENERAL: Sitting up, acomfortable PSYCH: Alert and oriented x3; mood and affect normal. Additional exam as per nursing and nephrology INVESTIGATIONS, reviewed in the clinical context: Potassium 3.9 creatinine 1.4 Previous testing White count 10.2 hemoglobin 11.2 neutrophils 8.6 lymphocytes 0.6 potassium 5.0 BUN 23 creatinine 1.15 Blood glucose 436 CRP 409 pro-calcitonin 0.87 UA positive for leukoesterase, WBC EKG tracing personally reviewed by me-sinus rhythm, poor R-wave progression Check stat x-ray film-possible infiltrate Assessment: -Mild COVID 19 pneumonia in a patient tested +1 week ago. Now having decrease appetite asthenia myopathy, gait dysfunction from the same. Patient is not hypoxic. No obvious fever. In an immunosuppressed patient. 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 -Status post diseased donor renal allograft and Fabry 2016 due to diabetic kidney disease -Metabolic acidosis due to chronic kidney disease disposition: Home Patient Condition at Discharge: Stable Plan - Discharge Summary Discharge Rx Participant: No New Discharge Prescriptions: New Zinc Sulfate [Orazinc] 220 mg PO DAILY #30 cap Famotidine [Pepcid] 20 mg PO DAILY #30 tab Ascorbic Acid [Vitamin C] 500 mg PO BID #60 tab Continue Tacrolimus [Prograf] 4 mg PO DAILY amLODIPine [Norvasc] 10 mg PO DAILY Sodium Bicarbonate Tab 650 mg PO TID Albuterol Nebulized [Ventolin Nebulized] 2.5 mg INHALATION RT-QID PRN PRN Reason: Shortness Of Breath Aspirin 81 mg PO DAILY carvediloL [Coreg*] 12.5 mg PO BID Atorvastatin Calcium [Lipitor] 10 mg PO HS Ergocalciferol (Vitamin D2) [Vitamin D2] 50,000 unit PO PARRISH predniSONE 5 mg PO DAILY Tacrolimus [Prograf] 3 mg PO HS Insulin Glargine,Hum.rec.anlog [Lantus Solostar] 35 unit SQ HS Losartan Potassium 100 mg PO DAILY Albuterol Inhaler [Ventolin Hfa Inhaler] 1 - 2 puff INHALATION RT-Q4H PRN PRN Reason: Shortness Of Breath traMADol HCl [Ultram] 50 - 100 mg PO Q6H PRN PRN Reason: Pain Olopatadine HCl [Pazeo] 1 drop BOTH EYES DAILY PRN PRN Reason: DRY EYES HYDROcodone/APAP 7.5-325MG [Merlin 7.5-325] 1 tab PO Q8H PRN PRN Reason: Pain Thiamine [Vitamin B-1] 250 mg PO BID Cyanocobalamin [Vitamin B-12 Injection] 1,000 mcg SQ Q30D Mycophenolate Sodium [Mycophenolic Acid] 360 mg PO BID Insulin Lispro [humaLOG Kwikpen] See Protocol SQ AC-TID Discharge Medication List Tacrolimus [Prograf] 4 mg PO DAILY 07/26/16 [History] Albuterol Nebulized [Ventolin Nebulized] 2.5 mg INHALATION RT-QID PRN 08/11/16 [History] Aspirin 81 mg PO DAILY 08/11/16 [History] Atorvastatin Calcium [Lipitor] 10 mg PO HS 08/11/16 [History] Sodium Bicarbonate Tab 650 mg PO TID 08/11/16 [History] amLODIPine [Norvasc] 10 mg PO DAILY 08/11/16 [History] carvediloL [Coreg*] 12.5 mg PO BID 08/11/16 [History] Ergocalciferol (Vitamin D2) [Vitamin D2] 50,000 unit PO PARRISH 08/25/17 [History] predniSONE 5 mg PO DAILY 08/25/17 [History] Tacrolimus [Prograf] 3 mg PO HS 06/01/18 [History] Albuterol Inhaler [Ventolin Hfa Inhaler] 1 - 2 puff INHALATION RT-Q4H PRN 04/18/20 [History] HYDROcodone/APAP 7.5-325MG [Merlin 7.5-325] 1 tab PO Q8H PRN 04/18/20 [History] Insulin Glargine,Hum.rec.anlog [Lantus Solostar] 35 unit SQ HS 04/18/20 [History] Losartan Potassium 100 mg PO DAILY 04/18/20 [History] Olopatadine HCl [Pazeo] 1 drop BOTH EYES DAILY PRN 04/18/20 [History] Thiamine [Vitamin B-1] 250 mg PO BID 04/18/20 [History] traMADol HCl [Ultram] 50 - 100 mg PO Q6H PRN 04/18/20 [History] Cyanocobalamin [Vitamin B-12 Injection] 1,000 mcg SQ Q30D 04/25/20 [History] Insulin Lispro [humaLOG Kwikpen] See Protocol SQ AC-TID 04/25/20 [History] Mycophenolate Sodium [Mycophenolic Acid] 360 mg PO BID 04/25/20 [History] Ascorbic Acid [Vitamin C] 500 mg PO BID #60 tab 04/27/20 [Rx] Famotidine [Pepcid] 20 mg PO DAILY #30 tab 04/27/20 [Rx] Zinc Sulfate [Orazinc] 220 mg PO DAILY #30 cap 04/27/20 [Rx] Follow up Appointment(s)/Referral(s): Raza Purcell MD [Primary Care Provider] - 04/30/20 1:00 pm (This is a tele health appointment) Juan Manuel Clark DO [STAFF PHYSICIAN] - 05/15/20 11:00 am (This is a tele health appointment The medical scheduler will call you a little earlier in the morning to get you checked in for this appointment and then close to your appointment time Gerri BETHEA will call you for the appointment) [facility] Visiting Nurse, [NON-STAFF] - Patient Instructions/Handouts: Famotidine (By mouth), Zinc Sulfate (By mouth), Ascorbic Acid (By mouth), Viral Pneumonia (DC), Viral Pneumonia (GEN), Viral Pneumonia (IP) Activity/Diet/Wound Care/Special Instructions: hold cellcept for 7 days cbc/bmp/progaf - 5 days
== END 2020-04-28 17:05 | disposition home or self-care (01) | DRG 177 ==
LOC: EC 10:58 → 4SSUR 14:07 → 6NMEDSUR 14:26
PROVIDERS: ADMIT Hospitalist; ATTEND Hospitalist
DX: U07.1 COVID-19 (principal); J12.89 Other viral pneumonia; D84.9 Immunodeficiency, unspecified; E87.2 Acidosis; Z94.0 Kidney transplant status; E11.22 Type 2 diabetes mellitus with diabetic chronic kidney disease; E11.42 Type 2 diabetes mellitus with diabetic polyneuropathy; E78.5 Hyperlipidemia, unspecified; E86.0 Dehydration; G89.29 Other chronic pain; J45.20 Mild intermittent asthma, uncomplicated; K58.0 Irritable bowel syndrome with diarrhea; M47.9 Spondylosis, unspecified; G72.89 Other specified myopathies; E11.319 Type 2 diabetes mellitus with unspecified diabetic retinopathy without macular edema; H35.61 Retinal hemorrhage, right eye; I12.9 Hypertensive chronic kidney disease with stage 1 through stage 4 chronic kidney disease, or unspecified chronic kidney disease; N18.30 Chronic kidney disease, stage 3 unspecified; Z79.899 Other long term (current) drug therapy; Z79.4 Long term (current) use of insulin; Z79.52 Long term (current) use of systemic steroids; Z79.82 Long term (current) use of aspirin; Z86.010 Personal history of colon polyps; Z87.891 Personal history of nicotine dependence; Z90.710 Acquired absence of both cervix and uterus; Z90.49 Acquired absence of other specified parts of digestive tract; G43.909 Migraine, unspecified, not intractable, without status migrainosus; Z88.5 Allergy status to narcotic agent; Z88.8 Allergy status to other drugs, medicaments and biological substances; Z87.440 Personal history of urinary (tract) infections; Z91.041 Radiographic dye allergy status; R26.9 Unspecified abnormalities of gait and mobility; E66.9 Obesity, unspecified; Z68.34 Body mass index [BMI] 34.0-34.9, adult
CPT/HCPCS: 36415; 71045; 76770; 80048; 80053; 80197; 81001; 82728; 83605; 83615; 83735; 84145; 85025; 85610; 85730; 86140; 87040; 93005; 94640; 96360; 96361; 99285

== ENCOUNTER → 2020-08-19 | Outpatient (CLI) | payer MEDICARE ==
[2020-08-19 15:17] LABS: Creatinine,Urine Random 84.3 mg/dL; Protein/Creatinine Ratio,Urine 0.641
[2020-08-20 01:35] LABS: Basophils # (A) 0.03 X 10*3/uL (0.00-0.10); Basophils % (A) 0.5 %; Eosinophils # (A) 0.05 X 10*3/uL (0.04-0.35); Eosinophils % (A) 0.9 %; HCT 38.4 % (37.2-46.3); HGB 11.4 g/dL (12.0-15.0); Lymphocytes # (A) 1.57 X 10*3/uL (0.90-5.00); Lymphocytes % (A) 27.4 %; MCHC 29.7 g/dL (32.0-37.0); MCV 94.3 fL (80.0-97.0); Monocytes # (A) 0.57 X 10*3/uL (0.20-1.00); Neutrophils # (A) 3.49 X 10*3/uL (1.80-7.70); Platelet Count 248 X 10*3/uL (140-440); RBC 4.07 X 10*6/uL (4.10-5.20); RDW 14.3 % (11.5-14.5); WBC 5.72 X 10*3/uL (4.50-10.00)
[2020-08-20 04:26] LABS: Hemoglobin A1C 7.3 % (4.0-6.0)
[2020-08-20 07:42] LABS: % Iron Saturation 41.26 (12.00-45.00); African American GFR (CKD) 48.5 (60.0-200.0); Albumin 4.1 g/dL (3.80-4.90); Albumin/Globulin Ratio 2.16 (1.60-3.17); Anion Gap 10.1 mmol/L (4.00-12.00); BUN/Creat Ratio 16.15 Ratio (12.00-20.00); Calcium 10.5 mg/dL (8.7-10.3); Carbon Dioxide 17.9 mmol/L (21.6-31.8); Chol/HDL Ratio 3.92; Ferritin 2948.5 ng/mL (10.0-291.0); Globulin 1.9 g/dL (1.6-3.3); LDL Cholesterol,Calculated 108.8 mg/dL (0.0-131.0); Non-African American GFR(CKD) 41.8 (60.0-200.0); Potassium 4.9 mmol/L (3.5-5.5); Total Bilirubin 0.3 mg/dL (0.3-1.2); VLDL Calculation 31.2 mg/dL (5.00-40.00)
== END | disposition home or self-care (01) ==
LOC: LABWHC1 12:48
PROVIDERS: ATTEND Nurse Practitioner Acute Care
DX: E11.22 Type 2 diabetes mellitus with diabetic chronic kidney disease (principal); N18.30 Chronic kidney disease, stage 3 unspecified; Z94.0 Kidney transplant status
CPT/HCPCS: 36415; 80053; 80061; 80197; 82570; 82728; 83036; 83540; 83550; 83970; 84156; 85025

== ENCOUNTER → 2020-10-28 | Outpatient (CLI) | payer MEDICARE ==
--- NOTE | 2020-10-30 09:09 | MM ---
Reason for exam: screening (asymptomatic). Last mammogram was performed 1 year and 11 months ago. History: Patient is postmenopausal. Physical Findings: A clinical breast exam by your physician is recommended on an annual basis and results should be correlated with mammographic findings. MG 3D Screening Mammo W/Cad Bilateral CC and MLO view(s) were taken. Prior study comparison: November 22, 2018, bilateral MG 3d screening mammo w/cad. October 12, 2017, bilateral MG 3d screening mammo w/cad. There are scattered fibroglandular densities. No significant changes when compared with prior studies. ASSESSMENT: Negative, BI-RAD 1 RECOMMENDATION: Routine screening mammogram of both breasts in 1 year.
== END | disposition home or self-care (01) ==
LOC: RADMAMWWP 07:34
PROVIDERS: ATTEND Family Medicine
DX: Z12.31 Encounter for screening mammogram for malignant neoplasm of breast (principal); Z78.0 Asymptomatic menopausal state
CPT/HCPCS: 77063; 77067

== ENCOUNTER → 2020-12-29 | Outpatient (CLI) | payer MEDICARE ==
[2020-12-29 14:27] LABS: Creatinine,Urine Random 59.9 mg/dL; Protein/Creatinine Ratio,Urine 0.601
[2020-12-29 18:41] LABS: Basophils # (A) 0.03 X 10*3/uL (0.00-0.10); Basophils % (A) 0.5 %; Eosinophils # (A) 0.09 X 10*3/uL (0.04-0.35); Eosinophils % (A) 1.5 %; HCT 40.6 % (37.2-46.3); HGB 12.4 g/dL (12.0-15.0); Lymphocytes # (A) 1.66 X 10*3/uL (0.90-5.00); Lymphocytes % (A) 28.3 %; MCH 27.7 pg (27.0-32.0); MCHC 30.5 g/dL (32.0-37.0); MCV 90.8 fL (80.0-97.0); Mean Platelet Volume 11.9 fL (9.5-12.2); Monocytes # (A) 0.64 X 10*3/uL (0.20-1.00); Monocytes % (A) 10.9 %; Neutrophils # (A) 3.43 X 10*3/uL (1.80-7.70); Neutrophils % (A) 58.5 %; Platelet Count 217 X 10*3/uL (140-440); RBC 4.47 X 10*6/uL (4.10-5.20); RDW 13.4 % (11.5-14.5); WBC 5.87 X 10*3/uL (4.50-10.00)
[2020-12-29 19:29] LABS: % Iron Saturation 28.19 (12.00-45.00); African American GFR (CKD) 32.5 (60.0-200.0); Albumin 4.2 g/dL (3.80-4.90); Albumin/Globulin Ratio 1.68 (1.60-3.17); Anion Gap 10.8 mmol/L (4.00-12.00); BUN/Creat Ratio 17.78 Ratio (12.00-20.00); Calcium 9.9 mg/dL (8.7-10.3); Carbon Dioxide 18.2 mmol/L (21.6-31.8); Chol/HDL Ratio 4.41; Globulin 2.5 g/dL (1.6-3.3); LDL Cholesterol,Calculated 114.8 mg/dL (0.0-131.0); Phosphorus 3.6 mg/dL (2.4-5.1); Total Bilirubin 0.4 mg/dL (0.3-1.2); Total Protein 6.7 g/dL (6.2-8.2); VLDL Calculation 42.2 mg/dL (5.00-40.00)
[2020-12-29 19:44] LABS: Ferritin 1920.2 ng/mL (10.0-291.0)
[2020-12-29 21:01] LABS: Hemoglobin A1C 10.6 % (4.0-6.0)
== END | disposition home or self-care (01) ==
LOC: LABWHC1 13:06
PROVIDERS: ATTEND Nurse Practitioner Acute Care
DX: E11.22 Type 2 diabetes mellitus with diabetic chronic kidney disease (principal); N18.9 Chronic kidney disease, unspecified; D63.1 Anemia in chronic kidney disease; E78.5 Hyperlipidemia, unspecified; N25.81 Secondary hyperparathyroidism of renal origin; Z94.0 Kidney transplant status; Z79.4 Long term (current) use of insulin
CPT/HCPCS: 36415; 80053; 80061; 80197; 82306; 82570; 82728; 83036; 83540; 83550; 83970; 84100; 84156; 85025

== ENCOUNTER → 2021-03-25 | Outpatient (CLI) | payer MEDICARE ==
[2021-03-25 11:42] LABS: Creatinine,Urine Random 62.8 mg/dL; Protein/Creatinine Ratio,Urine 0.462
[2021-03-25 15:32] LABS: Basophils # (A) 0.03 X 10*3/uL (0.00-0.10); Basophils % (A) 0.5 %; Eosinophils % (A) 3.4 %; HCT 38.5 % (37.2-46.3); HGB 11.3 g/dL (12.0-15.0); Lymphocytes # (A) 2.01 X 10*3/uL (0.90-5.00); Lymphocytes % (A) 34.6 %; MCH 27.8 pg (27.0-32.0); MCHC 29.4 g/dL (32.0-37.0); MCV 94.8 fL (80.0-97.0); Mean Platelet Volume 11.9 fL (9.5-12.2); Monocytes # (A) 0.73 X 10*3/uL (0.20-1.00); Monocytes % (A) 12.6 %; Neutrophils % (A) 48.2 %; Platelet Count 242 X 10*3/uL (140-440); RBC 4.06 X 10*6/uL (4.10-5.20); RDW 13.5 % (11.5-14.5); WBC 5.81 X 10*3/uL (4.50-10.00)
[2021-03-25 19:24] LABS: % Iron Saturation 66.96 (12.00-45.00); African American GFR (CKD) 40.5 (60.0-200.0); Albumin 3.8 g/dL (3.8-4.9); Albumin/Globulin Ratio 1.65 (1.60-3.17); Anion Gap 13.6 mmol/L (4.00-12.00); BUN/Creat Ratio 19.4 Ratio (12.00-20.00); Blood Urea Nitrogen 29.1 mg/dL (9.0-27.0); Calcium 9.6 mg/dL (8.7-10.3); Carbon Dioxide 13.4 mmol/L (21.6-31.8); Chol/HDL Ratio 4.1 Ratio; Globulin 2.3 g/dL (1.6-3.3); HDL Cholesterol 44.6 mg/dL (40.00-60.00); LDL Cholesterol,Calculated 88.8 mg/dL (0.0-131.0); Non-African American GFR(CKD) 34.9 (60.0-200.0); Phosphorus 3.7 mg/dL (2.4-5.1); Potassium 5.4 mmol/L (3.5-5.5); Total Bilirubin 0.2 mg/dL (0.30-1.20); Total Protein 6.1 g/dL (6.2-8.2); VLDL Calculation 49.6 mg/dL (5.00-40.00)
== END | disposition home or self-care (01) ==
LOC: LABWHC1 08:36
PROVIDERS: ATTEND Nurse Practitioner Acute Care
DX: E11.22 Type 2 diabetes mellitus with diabetic chronic kidney disease (principal); N25.81 Secondary hyperparathyroidism of renal origin; N18.9 Chronic kidney disease, unspecified; D63.1 Anemia in chronic kidney disease; E78.5 Hyperlipidemia, unspecified; Z94.0 Kidney transplant status
CPT/HCPCS: 36415; 80053; 80061; 80197; 82306; 82570; 82728; 83036; 83540; 83550; 83970; 84100; 84156; 85025

== ENCOUNTER → 2021-07-07 | Outpatient (CLI) | payer MEDICARE ==
--- NOTE | 2021-07-07 17:31 | CT ---
EXAMINATION TYPE: CT abdomen pelvis wo con DATE OF EXAM: 07/07/2021 COMPARISON: 04/18/2020 HISTORY: LLQ pain. Stat hold and call CT DLP: 968 mGycm Automated exposure control for dose reduction was used. Images were obtained from the diaphragm to the floor the pelvis without contrast. Lung bases are clear. There is no pleural effusion. Heart size is normal. There is no pericardial eff usion. Stomach is intact. There is small hiatal hernia. There are clips from cholecystectomy. Spleen is inta ct. There is no evidence of pancreatic mass. The bile ducts are not dilated. Liver shows no focal def ect. There is no adrenal mass. Kidneys are small with significant cortical thinning consistent with advanc ed atrophy. There is no hydronephrosis. There is some atherosclerotic vascular calcification. There i s no retroperitoneal adenopathy. Appendix is posterior and appears normal. There is transplant kidney in the pelvis on the right side with no hydronephrosis. Bladder distends smoothly. There is no ingui nal hernia. There are multiple sigmoid diverticula. There is no evidence of diverticulitis. There is 2.2 cm rounded ring calcified density in the left lateral pelvic sidewall unchanged and consistent wi th benign disease. There is hysterectomy. There is no ascites or free air. There is no bowel obstruct ion. There is no mesenteric edema. Lumbar spine shows a retrolisthesis at T12-L1 of 8 mm. There is sclerosis and spurring at T12-L1 disc . There is moderate spondylosis also at T10-11. There is partly visualized compression deformity of T 10. There is spinal stenosis at T12-L1 related to sclerosis and retrolisthesis. IMPRESSION: Sigmoid diverticulosis without diverticulitis. Transplant kidney with no hydronephrosis. Normal appen jony. Significant spondylotic change at T12-L1 with retrolisthesis and osteosclerosis. Old significant T10 compression fracture.
[2021-07-08 01:12] LABS: Basophils # (A) 0.04 X 10*3/uL (0.00-0.10); Basophils % (A) 0.6 %; Eosinophils % (A) 1.4 %; HCT 35.2 % (37.2-46.3); HGB 10.3 g/dL (12.0-15.0); Lymphocytes # (A) 1.51 X 10*3/uL (0.90-5.00); Lymphocytes % (A) 20.8 %; MCH 28.2 pg (27.0-32.0); MCHC 29.3 g/dL (32.0-37.0); MCV 96.4 fL (80.0-97.0); Mean Platelet Volume 11.2 fL (9.5-12.2); Monocytes # (A) 0.77 X 10*3/uL (0.20-1.00); Monocytes % (A) 10.6 %; Neutrophils # (A) 4.79 X 10*3/uL (1.80-7.70); Neutrophils % (A) 65.9 %; Platelet Count 356 X 10*3/uL (140-440); RBC 3.65 X 10*6/uL (4.10-5.20); RDW 14.4 % (11.5-14.5); WBC 7.26 X 10*3/uL (4.50-10.00)
[2021-07-08 01:58] LABS: African American GFR (CKD) 34.8 (60.0-200.0); Albumin 4.3 g/dL (3.8-4.9); Albumin/Globulin Ratio 1.72 (1.60-3.17); Anion Gap 11.4 mmol/L (10.00-18.00); Blood Urea Nitrogen 28.9 mg/dL (9.0-27.0); Calcium 10.3 mg/dL (8.7-10.3); Carbon Dioxide 18.6 mmol/L (20.0-27.5); Globulin 2.5 g/dL (1.6-3.3); Potassium 5.5 mmol/L (3.5-5.5); Total Bilirubin 0.3 mg/dL (0.30-1.20); Total Protein 6.8 g/dL (6.2-8.2)
== END | disposition home or self-care (01) ==
LOC: RADCTMAIN 16:49
PROVIDERS: ATTEND Family Medicine
DX: I10 Essential (primary) hypertension (principal); K57.30 Diverticulosis of large intestine without perforation or abscess without bleeding; M85.88 Other specified disorders of bone density and structure, other site; M48.54XA Collapsed vertebra, not elsewhere classified, thoracic region, initial encounter for fracture; M47.815 Spondylosis without myelopathy or radiculopathy, thoracolumbar region; Z94.0 Kidney transplant status
CPT/HCPCS: 74176; 80053; 85025

== ENCOUNTER 2021-07-08 08:06 | Emergency (ER) | payer MEDICARE ==
[2021-07-08 08:11] VITALS: BP 121/106; PULSE 92; RESP 22; TEMP 98.8
[2021-07-08] MEDS ORDERED: MORPHINE SULFATE 4 MG/ML SYRINGE IV STA (08:21)
--- NOTE | 2021-07-08 08:32 | ED ---
General Adult HPI - General Chief complaint: Abdominal Pain Stated complaint: body pain & nausea Time Seen by Provider: 07/08/21 08:08 Source: patient, RN notes reviewed, old records reviewed Mode of arrival: ambulatory Limitations: no limitations - History of Present Illness Initial comments: 70-year-old female presented for evaluation of left-sided abdominal pain and flank pain. Patient has history of end-stage renal disease status post transplant. She is followed closely by nephrology. Transplant kidney is on the right. She's had some nausea and vomiting as well as this left-sided pain over the past 4 days. No fever. - Related Data Home Medications Medication Instructions Recorded Confirmed Tacrolimus [Prograf] 4 mg PO DAILY 07/26/16 04/25/20 Albuterol Nebulized [Ventolin 2.5 mg INHALATION RT-QID PRN 08/11/16 04/25/20 Nebulized] Aspirin 81 mg PO DAILY 08/11/16 04/25/20 Atorvastatin Calcium [Lipitor] 10 mg PO HS 08/11/16 04/25/20 Sodium Bicarbonate Tab 650 mg PO TID 08/11/16 04/25/20 amLODIPine [Norvasc] 10 mg PO DAILY 08/11/16 04/25/20 carvediloL [Coreg*] 12.5 mg PO BID 08/11/16 04/25/20 Ergocalciferol (Vitamin D2) 50,000 unit PO PARRISH 08/25/17 04/25/20 [Vitamin D2] predniSONE 5 mg PO DAILY 08/25/17 04/25/20 Tacrolimus [Prograf] 3 mg PO HS 06/01/18 04/25/20 Albuterol Inhaler [Ventolin Hfa 1 - 2 puff INHALATION RT-Q4H PRN 04/18/20 04/25/20 Inhaler] HYDROcodone/APAP 7.5-325MG [[place] 1 tab PO Q8H PRN 04/18/20 04/25/20 7.5-325] Insulin Glargine,Hum.rec.anlog 35 unit SQ HS 04/18/20 04/25/20 [Lantus Solostar Pen] Losartan Potassium 100 mg PO DAILY 04/18/20 04/25/20 Olopatadine HCl [Pazeo] 1 drop BOTH EYES DAILY PRN 04/18/20 04/25/20 Thiamine [Vitamin B-1] 250 mg PO BID 04/18/20 04/25/20 traMADol HCl [Ultram] 50 - 100 mg PO Q6H PRN 04/18/20 04/25/20 Cyanocobalamin [Vitamin B-12 1,000 mcg SQ Q30D 04/25/20 04/25/20 Injection] Insulin Lispro [humaLOG Kwikpen] See Protocol SQ AC-TID 04/25/20 04/25/20 Mycophenolate Sodium [Mycophenolic 360 mg PO BID 04/25/20 04/25/20 Acid] Previous Rx's Medication Instructions Recorded Ascorbic Acid [Vitamin C] 500 mg PO BID #60 tab 04/27/20 Famotidine [Pepcid] 20 mg PO DAILY #30 tab 04/27/20 Zinc Sulfate [Orazinc] 220 mg PO DAILY #30 cap 04/27/20 HYDROcodone/APAP 5-325MG [[place] 1 tab PO Q6HR PRN #12 tab 07/08/21 5-325] valACYclovir HCL [Valtrex] 1,000 mg PO Q12HR 7 Days #14 tab 07/08/21 Allergies Allergy/AdvReac Type Severity Reaction Status Date / Time hydralazine [From Apresoline] Allergy Rash/Hives Verified 07/08/21 08:11 Iodinated Contrast Media Allergy Unknown Verified 07/08/21 08:11 [Iodinated Contrast- Oral and IV Dye] meperidine [From Demerol] Allergy Anaphylaxis Verified 07/08/21 08:11 Review of Systems ROS Statement: Those systems with pertinent positive or pertinent negative responses have been documented in the HPI. ROS Other: All systems not noted in ROS Statement are negative. Past Medical History Past Medical History: Asthma, Diabetes Mellitus, Dialysis, Eye Disorder, Hyperlipidemia, Hypertension, Renal Disease, Skin Disorder Additional Past Medical History / Comment(s): +covid last week, IDDM type II, neuropathy bilateral legs/feet, ESRD with past peritoneal/hemodialysis then in 2016 had renal transplant, UTI with sepsis, IBS, benign colon polyps, chronic low back pain, migraines, R eye retinal bleed with injections, L eye detached retina with surgery, anemia, History of Any Multi-Drug Resistant Organisms: ESBL Date of last positivie culture/infection: 2011 approx(PREVIOUSLY CHARTED) MDRO Source:: peritoneal dialysis cath Past Surgical History: Cholecystectomy, Hysterectomy, Orthopedic Surgery Additional Past Surgical History / Comment(s): Peritoneal dialysis cath since removed, hemodialysis cath since removed, 2016 renal transplant, EGD, colonoscopies/benign polypectomy, bilateral eye cataract removals, L eye detached retinal surgery, L knee arthroscopy Past Anesthesia/Blood Transfusion Reactions: No Reported Reaction Additional Past Anesthesia/Blood Transfusion Reaction / Comment(s): has had a hard time coming out of anesthesia Past Psychological History: No Psychological Hx Reported Smoking Status: Former smoker Past Alcohol Use History: None Reported Past Drug Use History: None Reported - Past Family History Mother History Unknown: Yes Additional Family Medical History / Comment(s): Mother of poisoning when pt was 11 yrs old. Father Family Medical History: Vascular Disorder Additional Family Medical History / Comment(s): brain aneurysm General Exam Limitations: no limitations General appearance: alert, in no apparent distress Head exam: Present: atraumatic, normocephalic Eye exam: Present: normal appearance, PERRL ENT exam: Present: normal exam Neck exam: Present: normal inspection. Absent: tenderness, meningismus Respiratory exam: Present: normal lung sounds bilaterally. Absent: respiratory distress, wheezes Cardiovascular Exam: Present: regular rate, normal rhythm GI/Abdominal exam: Present: soft, tenderness (Left lower quadrant, left flank). Absent: distended Extremities exam: Present: normal inspection, normal capillary refill. Absent: pedal edema Neurological exam: Present: alert, oriented X3, CN II-XII intact. Absent: motor sensory deficit Psychiatric exam: Present: normal affect, normal mood Skin exam: Present: warm, dry, intact, rash, vesicles (left paraSpinal region, roughly T10-T11). Absent: cyanosis, diaphoretic Course Vital Signs 07/08/21 08:07 Temperature 98.8 F Pulse Rate 92 Respiratory 22 Rate Blood Pressure 121/106 O2 Sat by Pulse 100 Oximetry Medical Decision Making - Medical Decision Making 70-year-old female with left flank pain and abdominal pain over the past 3 days. Patient had been seen by primary care physician labs and CT were ordered. This was reviewed and did not reveal a cause for her pain. She does have a vesicular rash in the left paraspinal region around the thoracic lumbar junction. Patient likely has a developing shingles rash Labs were repeated they're stable. X-ray negative for obstruction. No other acute findings. - Lab Data Result diagrams: 07/08/21 08:48 07/08/21 09:50 Lab Results 07/08/21 07/08/21 07/08/21 Range/Units 08:48 08:48 08:48 WBC 6.4 (3.8-10.6) k/uL RBC 3.60 L (3.80-5.40) m/uL Hgb 10.6 L (11.4-16.0) gm/dL Hct 34.4 (34.0-46.0) % MCV 95.6 (80.0-100.0) fL MCH 29.4 (25.0-35.0) pg MCHC 30.8 L (31.0-37.0) g/dL RDW 14.5 (11.5-15.5) % Plt Count 323 (150-450) k/uL MPV 8.8 Neutrophils % 68 % Lymphocytes % 18 % Monocytes % 8 % Eosinophils % 3 % Basophils % 0 % Neutrophils # 4.4 (1.3-7.7) k/uL Lymphocytes # 1.1 (1.0-4.8) k/uL Monocytes # 0.5 (0-1.0) k/uL Eosinophils # 0.2 (0-0.7) k/uL Basophils # 0.0 (0-0.2) k/uL Hypochromasia Marked PT 10.4 (9.0-12.0) sec INR 0.9 (<1.2) APTT 21.5 L (22.0-30.0) sec Sodium (137-145) mmol/L Potassium (3.5-5.1) mmol/L Chloride (98-107) mmol/L Carbon Dioxide (22-30) mmol/L Anion Gap mmol/L BUN (7-17) mg/dL Creatinine (0.52-1.04) mg/dL Est GFR (CKD-EPI)AfAm (>60 ml/min/1.73 sqM) Est GFR (CKD-EPI)NonAf (>60 ml/min/1.73 sqM) Glucose (74-99) mg/dL Plasma Lactic Acid David 1.2 (0.7-2.0) mmol/L Calcium (8.4-10.2) mg/dL Total Bilirubin (0.2-1.3) mg/dL AST (14-36) U/L ALT (4-34) U/L Alkaline Phosphatase (38-126) U/L Total Protein (6.3-8.2) g/dL Albumin (3.5-5.0) g/dL Amylase (30-110) U/L Lipase (23-300) U/L Urine Color Urine Appearance (Clear) Urine pH (5.0-8.0) Ur Specific [place] (1.001-1.035) Urine Protein (Negative) Urine Glucose (UA) (Negative) Urine Ketones (Negative) Urine Blood (Negative) Urine Nitrite (Negative) Urine Bilirubin (Negative) Urine Urobilinogen (<2.0) mg/dL Ur Leukocyte Esterase (Negative) Urine RBC (0-5) /hpf Urine WBC (0-5) /hpf Ur Squamous Epith Cells (0-4) /hpf 07/08/21 07/08/21 Range/Units 09:31 09:50 WBC (3.8-10.6) k/uL RBC (3.80-5.40) m/uL Hgb (11.4-16.0) gm/dL Hct (34.0-46.0) % MCV (80.0-100.0) fL MCH (25.0-35.0) pg MCHC (31.0-37.0) g/dL RDW (11.5-15.5) % Plt Count (150-450) k/uL MPV Neutrophils % % Lymphocytes % % Monocytes % % Eosinophils % % Basophils % % Neutrophils # (1.3-7.7) k/uL Lymphocytes # (1.0-4.8) k/uL Monocytes # (0-1.0) k/uL Eosinophils # (0-0.7) k/uL Basophils # (0-0.2) k/uL Hypochromasia PT (9.0-12.0) sec INR (<1.2) APTT (22.0-30.0) sec Sodium 136 L (137-145) mmol/L Potassium 5.0 (3.5-5.1) mmol/L Chloride 110 H (98-107) mmol/L Carbon Dioxide 19 L (22-30) mmol/L Anion Gap 7 mmol/L BUN 30 H (7-17) mg/dL Creatinine 1.57 H (0.52-1.04) mg/dL Est GFR (CKD-EPI)AfAm 38 (>60 ml/min/1.73 sqM) Est GFR (CKD-EPI)NonAf 33 (>60 ml/min/1.73 sqM) Glucose 252 H (74-99) mg/dL Plasma Lactic Acid David (0.7-2.0) mmol/L Calcium 10.0 (8.4-10.2) mg/dL Total Bilirubin 0.5 (0.2-1.3) mg/dL AST 20 (14-36) U/L ALT 10 (4-34) U/L Alkaline Phosphatase 89 (38-126) U/L Total Protein 6.5 (6.3-8.2) g/dL Albumin 3.7 (3.5-5.0) g/dL Amylase 47 (30-110) U/L Lipase 78 (23-300) U/L Urine Color Light Yellow Urine Appearance Clear (Clear) Urine pH 6.0 (5.0-8.0) Ur Specific [place] 1.018 (1.001-1.035) Urine Protein 2+ H (Negative) Urine Glucose (UA) 2+ H (Negative) Urine Ketones Negative (Negative) Urine Blood Negative (Negative) Urine Nitrite Negative (Negative) Urine Bilirubin Negative (Negative) Urine Urobilinogen <2.0 (<2.0) mg/dL Ur Leukocyte Esterase Small H (Negative) Urine RBC <1 (0-5) /hpf Urine WBC 2 (0-5) /hpf Ur Squamous Epith Cells <1 (0-4) /hpf Disposition Clinical Impression: Shingles rash Disposition: HOME SELF-CARE Condition: Good Instructions (If sedation given, give patient instructions): Shingles (ED) Prescriptions: HYDROcodone/APAP 5-325MG [[place] 5-325] 1 tab PO Q6HR PRN #12 tab PRN Reason: Pain valACYclovir HCL [Valtrex] 1,000 mg PO Q12HR 7 Days #14 tab Is patient prescribed a controlled substance at d/c from ED?: No Referrals: Raza Purcell MD [Primary Care Provider] - 1-2 days Time of Disposition: 10:51
[2021-07-08 09:09] LABS: Basophils % (A) 0 %; Eosinophils # (A) 0.2 k/uL (0-0.7); Eosinophils % (A) 3 %; HCT 34.4 % (34.0-46.0); HGB 10.6 gm/dL (11.4-16.0); Hypochromasia Marked; Lymphocytes # (A) 1.1 k/uL (1.0-4.8); Lymphocytes % (A) 18 %; MCH 29.4 pg (25.0-35.0); MCHC 30.8 g/dL (31.0-37.0); MCV 95.6 fL (80.0-100.0); Mean Platelet Volume 8.8; Monocytes # (A) 0.5 k/uL (0-1.0); Monocytes % (A) 8 %; Neutrophils # (A) 4.4 k/uL (1.3-7.7); Neutrophils % (A) 68 %; Platelet Count 323 k/uL (150-450); RDW 14.5 % (11.5-15.5); WBC 6.4 k/uL (3.8-10.6)
--- NOTE | 2021-07-08 09:34 | XR ---
EXAMINATION TYPE: XR KUB DATE OF EXAM: 07/08/2021 COMPARISON: NONE HISTORY: Pain TECHNIQUE: Single supine KUB image of the abdomen is obtained FINDINGS: Small bowel demonstrates no evidence for dilatation or air fluid levels. Gas and fecal material is seen in non-distended colon. No convincing evidence for pneumoperitoneum. No unusual calcifications. The lung bases are clear. The osseous structures are intact. IMPRESSION: 1. Overall nonobstructive bowel gas pattern.
[2021-07-08 09:49] LABS: INR 0.9 (<1.2)
[2021-07-08 09:50] LABS: Partial Thromboplastin Time 21.5 sec (22.0-30.0); Prothrombin Time 10.4 sec (9.0-12.0)
[2021-07-08 10:24] LABS: Albumin 3.7 g/dL (3.5-5.0); Total Bilirubin 0.5 mg/dL (0.2-1.3); Total Protein 6.5 g/dL (6.3-8.2)
[2021-07-08 10:30] LABS: Appearance,Urine Clear (Clear); Bilirubin,Urine Negative (Negative); Blood,Urine Negative (Negative); Color,Urine Light Yellow; Glucose,Urine (UA) 2+ (Negative); Ketones,Urine Negative (Negative); Leukocyte Esterase,Urine Small (Negative); Nitrite,Urine Negative (Negative); Protein,Urine 2+ (Negative); RBC,Urine <1 /hpf (0-5); Specific Gravity,Urine 1.018 (1.001-1.035); Squamous Epithelial Cell,Urine <1 /hpf (0-4); Urobilinogen,Urine <2.0 mg/dL (<2.0); WBC,Urine 2 /hpf (0-5)
== END 2021-07-08 11:10 | disposition home or self-care (01) ==
LOC: EC 08:06
DX: B02.9 Zoster without complications (principal); R10.32 Left lower quadrant pain; E11.22 Type 2 diabetes mellitus with diabetic chronic kidney disease; E11.40 Type 2 diabetes mellitus with diabetic neuropathy, unspecified; I12.0 Hypertensive chronic kidney disease with stage 5 chronic kidney disease or end stage renal disease; N18.6 End stage renal disease; J45.909 Unspecified asthma, uncomplicated; E78.5 Hyperlipidemia, unspecified; Z87.891 Personal history of nicotine dependence; Z79.4 Long term (current) use of insulin; Z79.51 Long term (current) use of inhaled steroids; Z79.52 Long term (current) use of systemic steroids; Z79.82 Long term (current) use of aspirin; Z79.899 Other long term (current) drug therapy; Z99.2 Dependence on renal dialysis
CPT/HCPCS: 36415; 80053; 82150; 83605; 83690; 85025; 85610; 85730; 81001; 74018; 99284; 96374; J2270

== ENCOUNTER → 2021-08-26 | Outpatient (CLI) | payer MEDICARE ==
[2021-08-26 11:52] VITALS: BP 185/104; PULSE 79; RESP 18; TEMP 98
--- NOTE | 2021-08-26 11:56 | P.CON ---
Consult Note - . Consult date: 08/26/21 Assessment/Plan:: HISTORY OF PRESENT ILLNESS: 70 yr old female as a referral from Dr. Loredo presents today with mid back and lower back pain for the last several years due to retrolisthesis, spondylosis, spinal stenosis and spurring for evaluation. Patient states her back pain is 3 out of 10 in intensity, aching, throbbing, sharp with radiation of pain left and right of midline along the paraspinal muscles. Pain is provoked with standing or lifting or housework activities. Pain is relieved with Tylenol arthritis, CBD oil, Aspercreme, heat, chiropractic treatments weekly, laying on her left side and elevating the lower extremities and rest. Patient states she has not had any physical therapy sessions. Past Medical History: Asthma, Diabetes Mellitus IDDM II, Diabetic Neuropathy, Dialysis, Eye Disorder, Hyperlipidemia, Hypertension, ESRD, Skin Disorder Past Surgical History: Cholecystectomy, Hysterectomy, L Knee Arthroscopy, Hemodialysis in 2016, EGD Colonoscopy with Polypectomy, BL Cataract Resections, L Detached Retina Repair Additional Past Anesthesia/Blood Transfusion Reaction / Comment(s): has had a hard time coming out of anesthesia Smoking Status: Former smoker Family History: Mother- of poisoning when pt was 11 yrs old. Father- Cerebral Aneurysm All: See list Meds: See list REVIEW OF ORGAN SYSTEMS: CONSTITUTIONAL: No fevers or chills. No recent weight loss. HEENT: No visual acuity loss, eye pain, difficulties with hearing. No nosebleeds. No difficulty swallowing. RESPIRATORY: Denies any troubles with breathing or dyspnea on exertion. CARDIOVASCULAR: Denies any chest pain, palpitations, or recent heart attacks. GASTROINTESTINAL: Denies fatty food intolerance. Has change in bowel habits and gas bloat. GENITOURINARY: Denies any blood in urine. Has increased urinary frequency. NEUROLOGICAL: + numbness and tingling along the distal extremities. No seizure disorders or headaches. MUSCULOSKELETAL: + back pain SKIN: No skin cancer. No rash. PSYCHIATRIC: Denies current depression or suicidal thoughts. ENDOCRINE: Denies current thyroid disorders. Denies any blood sugar glucose intolerance. HEME/LYMPHATIC: Denies any lumps and bumps around the neck. History of deep venous thrombosis. ALLERGY/IMMUNOLOGY: No immunoglobulin therapy. No immune deficiencies. BREAST: Denies current breast lumps, pain or nipple discharge. Physical Examinations : Constitutional : Cooperative , not in acute distress . HEENT: Neck supple. No Lymphadenopathy. Normal thyroid size . Eyes no ptosis , no icterus, no photophobia . Hearing intact. Normal oropharynx. No Thrush. Respiratory : Chest clear to auscultations bilaterally. No wheezing. No rhonchi. Cardiovascular : Regular rate and rhythm , S1 / S2. No S3 . No S4. Gastrointestinal : Abdomen soft. No tenderness. Bowel sounds x 4. No organomegaly . Genitourinary : Deferred. Neurologic : Cranial nerve II to XII intact. No focal neurological deficits. Psychiatric : alert & oriented x 3. Matching mood & appropriate affect. Judgment & insight intact. Lymphatic No Lymphadenopathy. Musculoskeletal : Cervical Spine Motor strength in the deltoid and biceps: Normal right side. Normal Left side Motor strength biceps and the wrist extensors: Normal right side . Normal left side Motor strength in the triceps muscle: Normal right side. Normal left side Deep tendon reflexes: Normal at the biceps. Normal at Brachioradialis. Normal at triceps Cervical facet loading test: positive bilaterally Spurling test: positive bilaterally Neck distraction test: positive bilaterally Anthony sign: positive bilaterally Lumbar spine Motor strength lower extremities ,thigh and legs 5/5 Right side , 5/5 Left side Deep tendon reflexes : Normal Knee Jerk. Normal Ankle Jerk Vertebral body tenderness over Lumbar facet Loading Test: positive Right / positive Left Range of motion of the lumbar spine Flexion 30 degrees, extension 10 degrees Straight Leg Raise test: Left/ Right positive at degree Chris test: positive right / positive left. Severe tenderness over the Sacroiliac joint on the Right / Left sides Gaenslen test: positive bilaterally Seated flexion test: positive bilaterally. Imaging: CT Thoracic and Lumbar spine from 07/07/21 reviewed. Assessment/ Plan : Recommendation for PT to eval & treat for Thoracolumbar radiculopathy 3 x per week x 6 weeks. Recommendation of TESI T12-L1. May need a series, up to 3 within a 6 mo period, to obtain optimal pain relief. Risks, benefits of procedure discussed and patient verbalized understanding. Denies aspirin or anti- coagulant use. Admits to medical history of Diabetes. Protocol for discontinuation/ continuation of diabetic medications (Humalog and Glarginine) karie procedure discussed. All questions answered. I have spent greater than 50 minutes on patient care today. Dr Kuo was available by phone for the evaluation of this patient. The time was used to review the medical records including relevant urine studies and Prescription history (MAPs), review of the available imaging, evaluation and examination of the patient, coordination of care with the medical staff and if applicable referring physicians, as well as creation of the medical record PQRS Measure Charge Sheet Mode of Arrival: Ambulatory - Pain Location Lower Medial Back Non-Pharmacological Interventions: Chiropractic Treatment, Heat, Inactivity, Position/Reposition, Sitting Pharmacological Interventions: PRN Medication, Topical Medication PQRS Narrative: Smoking Status Former smoker Blood Pressure 185/104 Pain Intensity [Lower Medial 7 Back] Scale Used Numeric (1 - 10) Home Medications: Ambulatory Orders Tacrolimus [Prograf] 4 mg PO DAILY 07/26/16 Albuterol Nebulized [Ventolin Nebulized] 2.5 mg INHALATION RT-QID PRN 08/11/16 Aspirin 81 mg PO DAILY 08/11/16 Atorvastatin Calcium [Lipitor] 10 mg PO HS 08/11/16 Sodium Bicarbonate Tab 650 mg PO TID 08/11/16 amLODIPine [Norvasc] 10 mg PO DAILY 08/11/16 carvediloL [Coreg*] 12.5 mg PO BID 08/11/16 Ergocalciferol (Vitamin D2) [Vitamin D2] 50,000 unit PO PARRISH 08/25/17 predniSONE 5 mg PO DAILY 08/25/17 Tacrolimus [Prograf] 3 mg PO HS 06/01/18 Albuterol Inhaler [Ventolin Hfa Inhaler] 1 - 2 puff INHALATION RT-Q4H PRN 04/18/20 HYDROcodone/APAP 7.5-325MG [[place] 7.5-325] 1 tab PO Q8H PRN 04/18/20 Insulin Glargine,Hum.rec.anlog [Lantus Solostar Pen] 35 unit SQ HS 04/18/20 Losartan Potassium 100 mg PO DAILY 04/18/20 Olopatadine HCl [Pazeo] 1 drop BOTH EYES DAILY PRN 04/18/20 Thiamine [Vitamin B-1] 250 mg PO BID 04/18/20 traMADol HCl [Ultram] 50 - 100 mg PO Q6H PRN 04/18/20 Cyanocobalamin [Vitamin B-12 Injection] 1,000 mcg SQ Q30D 04/25/20 Insulin Lispro [humaLOG Kwikpen] See Protocol SQ AC-TID 04/25/20 Mycophenolate Sodium [Mycophenolic Acid] 360 mg PO BID 04/25/20 Ascorbic Acid [Vitamin C] 500 mg PO BID #60 tab 04/27/20 Famotidine [Pepcid] 20 mg PO DAILY #30 tab 04/27/20 Zinc Sulfate [Orazinc] 220 mg PO DAILY #30 cap 04/27/20 HYDROcodone/APAP 5-325MG [[place] 5-325] 1 tab PO Q6HR PRN #12 tab 07/08/21 valACYclovir HCL [Valtrex] 1,000 mg PO Q12HR 7 Days #14 tab 07/08/21
== END ==
LOC: PNWHC3 11:19
PROVIDERS: ATTEND Specialist
DX: M54.15 Radiculopathy, thoracolumbar region (principal); M43.10 Spondylolisthesis, site unspecified; M47.9 Spondylosis, unspecified; M48.00 Spinal stenosis, site unspecified; Z87.891 Personal history of nicotine dependence; Z79.4 Long term (current) use of insulin; J45.909 Unspecified asthma, uncomplicated; E11.40 Type 2 diabetes mellitus with diabetic neuropathy, unspecified; E11.22 Type 2 diabetes mellitus with diabetic chronic kidney disease; I13.11 Hypertensive heart and chronic kidney disease without heart failure, with stage 5 chronic kidney disease, or end stage renal disease; N18.6 End stage renal disease; Z99.2 Dependence on renal dialysis; E78.5 Hyperlipidemia, unspecified; Z88.5 Allergy status to narcotic agent; Z88.8 Allergy status to other drugs, medicaments and biological substances; Z91.041 Radiographic dye allergy status
CPT/HCPCS: 99211

== ENCOUNTER 2021-10-27 09:53 | Inpatient (IN) | payer MEDICARE ==
--- NOTE | 2021-10-27 10:41 | ED ---
General Adult HPI - General Chief complaint: Weakness Stated complaint: Weakness/Recheck Time Seen by Provider: 10/27/21 10:02 Source: patient Mode of arrival: wheelchair Limitations: no limitations - History of Present Illness Initial comments: This 70-year-old female past medical history of kidney transplant 2017 presents emergency department after being sent here by due to having urinary tract infection and abnormal labs from yesterday's blood draw. Son and sister and room state patient has been getting treatment for urinary and kidney infection over the last month and a half and has been experiencing weakness, confusion since treatments. Son states she has been having these symptoms on and off for the last 5 weeks. They state patient has had 3 rounds of the treatment but they're unsure what the treatment is-the states she gets this treatment done in [place] and is usually feeling better after a few days, however her last treatment was 2 weeks ago and she is still having confusion and weakness. Son in room states that she had her blood work drawn yesterday and was called by this morning who instructed them to bring patient to the emergency department for abnormal labs. Patient states she is on some sort of antibiotic for her urinary tract and kidney infection which she has been on for the last 1.5 weeks. Son states patient has been drinking fluids but has been eating a lot less than usual. They state patient has episodes of confusion. They state she has been having normal bowel and bladder movements. They deny patient having any fever. Patient is no longer on dialysis since kidney transplant 2017. Patient states she does feel a little bit confused and weak. She denies any chest pain, shortness breath, abdominal pain, nausea, vomiting, change in bowel or bladder, change in vision, headache, lightheadedness and dizziness. Patient states she does have a decreased appetite. She denies any one-sided weakness or trouble speaking. Patient denies any cough, sore throat, nasal congestion or any upper respiratory symptoms. - Related Data Home Medications Medication Instructions Recorded Confirmed Tacrolimus [Prograf] 6 mg PO DAILY 07/26/16 10/27/21 Albuterol Nebulized [Ventolin 2.5 mg INHALATION RT-Q4H PRN 08/11/16 10/27/21 Nebulized] Atorvastatin Calcium [Lipitor] 10 mg PO HS 08/11/16 10/27/21 Sodium Bicarbonate Tab 1,300 mg PO TID 08/11/16 10/27/21 amLODIPine [Norvasc] 10 mg PO DAILY 08/11/16 10/27/21 predniSONE 5 mg PO DAILY 08/25/17 10/27/21 Tacrolimus [Prograf] 5 mg PO HS 06/01/18 10/27/21 Insulin Glargine,Hum.rec.anlog 35 unit SQ HS 04/18/20 10/27/21 [Lantus Solostar Pen] Losartan Potassium 100 mg PO DAILY 04/18/20 10/27/21 Insulin Lispro [humaLOG Kwikpen] See Protocol SQ AC-TID 04/25/20 10/27/21 Mycophenolate Sodium [Mycophenolic 360 mg PO BID 04/25/20 10/27/21 Acid] Carvedilol [Coreg] 25 mg PO BID 10/27/21 10/27/21 Ciprofloxacin HCl [Cipro] 500 mg PO DAILY 10/27/21 10/27/21 Ergocalciferol [Vitamin D2 (1250 1,250 mcg PO PARRISH 10/27/21 10/27/21 Mcg = 20348 Iu)] Famotidine 40 mg PO DAILY 10/27/21 10/27/21 Furosemide [Lasix] 40 mg PO DAILY PRN 10/27/21 10/27/21 Lidocaine 5% Patch [Lidoderm] 1 patch TRANSDERM DAILY PRN 10/27/21 10/27/21 Loperamide HCl [Imodium A-D] 2 mg PO TID PRN 10/27/21 10/27/21 cycloSPORINE 0.05% OPHTH SOLN 1 drop BOTH EYES BID 10/27/21 10/27/21 [Restasis] hydrALAZINE HCL [Apresoline] 75 mg PO TID 10/27/21 10/27/21 Allergies Allergy/AdvReac Type Severity Reaction Status Date / Time hydralazine [From Apresoline] Allergy Rash/Hives Verified 10/27/21 10:00 Iodinated Contrast Media Allergy Unknown Verified 10/27/21 10:00 [Iodinated Contrast- Oral and IV Dye] meperidine [From Demerol] Allergy Anaphylaxis Verified 10/27/21 10:00 Review of Systems ROS Statement: Those systems with pertinent positive or pertinent negative responses have been documented in the HPI. ROS Other: All systems not noted in ROS Statement are negative. Past Medical History Past Medical History: Asthma, Diabetes Mellitus, Dialysis, Eye Disorder, Hyperlipidemia, Hypertension, Renal Disease, Skin Disorder Additional Past Medical History / Comment(s): +covid last week, IDDM type II, n europathy bilateral legs/feet, ESRD with past peritoneal/hemodialysis then in 2016 had renal transplant, UTI with sepsis, IBS, benign colon polyps, chronic low back pain, migraines, R eye retinal bleed with injections, L eye detached retina with surgery, anemia, History of Any Multi-Drug Resistant Organisms: ESBL Date of last positivie culture/infection: 2011 approx(PREVIOUSLY CHARTED) MDRO Source:: peritoneal dialysis cath Past Surgical History: Cholecystectomy, Hysterectomy, Orthopedic Surgery Additional Past Surgical History / Comment(s): Peritoneal dialysis cath since removed, hemodialysis cath since removed, 2016 renal transplant, EGD, colonoscopies/benign polypectomy, bilateral eye cataract removals, L eye detached retinal surgery, L knee arthroscopy Past Anesthesia/Blood Transfusion Reactions: No Reported Reaction Additional Past Anesthesia/Blood Transfusion Reaction / Comment(s): has had a hard time coming out of anesthesia Past Psychological History: No Psychological Hx Reported Smoking Status: Former smoker - Past Family History Mother History Unknown: Yes Additional Family Medical History / Comment(s): Mother of poisoning when pt was 11 yrs old. Father Family Medical History: Vascular Disorder Additional Family Medical History / Comment(s): brain aneurysm General Exam Limitations: no limitations General appearance: alert, in no apparent distress Head exam: Present: atraumatic, normocephalic, normal inspection Eye exam: Present: normal appearance, PERRL, EOMI. Absent: scleral icterus, conjunctival injection, periorbital swelling Pupils: Present: normal accommodation ENT exam: Present: normal exam, mucous membranes moist Neck exam: Present: normal inspection, full ROM. Absent: tenderness, meningismus, lymphadenopathy Respiratory exam: Present: normal lung sounds bilaterally. Absent: respiratory distress, wheezes, rales, rhonchi, stridor, chest wall tenderness Cardiovascular Exam: Present: regular rate, normal rhythm, normal heart sounds. Absent: systolic murmur, diastolic murmur, rubs, gallop, clicks GI/Abdominal exam: Present: soft, normal bowel sounds. Absent: distended, tenderness, guarding, rebound, rigid Extremities exam: Present: normal inspection, full ROM, normal capillary refill. Absent: tenderness, pedal edema, joint swelling, calf tenderness Back exam: Present: full ROM. Absent: CVA tenderness (R), CVA tenderness (L), paraspinal tenderness, vertebral tenderness Neurological exam: Present: alert, oriented X3 (Patientname, where she is at, the year), CN II-XII intact Psychiatric exam: Present: normal affect, normal mood Skin exam: Present: warm, dry, intact, normal color. Absent: rash Course Vital Signs 10/27/21 10/27/21 10:30 11:36 Pulse Rate 92 Respiratory 18 18 Rate Blood Pressure 162/86 O2 Sat by Pulse 97 Oximetry EKG Findings - EKG Comments: EKG Findings:: EKG impression: Sinus rhythm. Ventricular rate 99 bpm. DC interval 163. To sabianism 103. QT/QTc 368/425. Medicaid Business Analyst vomiting attending, Medical Decision Making - Medical Decision Making This 70-year-old female presents to the emergency department after being sent here by her primary care provider, for abnormal labs that were drawn yesterday along with urinary tract infection 1.5 weeks. Patient's labs with white blood cells 18.9, potassium 6.2, creatinine 2.86 compared to 3.1 ye sterday. Patient DKA with glucose 727. Urine with large leukocyte esterase, [address] brain without contrast impression: No acute intracranial abnormality are grossly Seki time lesion. Questionable tiny lacunar infarcts in the caudate nuclei. Chest x-ray impression: Chronic appearing changes. No acute process seen. [facility] mid and lower thoracic spine with chronic appearing grade 1 anterolisthesis T11 - T12, similar to the appearance on CT of 07/07/2021. Patient given calcium gluconate, sodium bicarb and was started on ceftriaxone. Acetone pending. Discussed case in detail with my attending, . Spoke with who agreed to accept patient to her services with patient placed in ICU due to history of kidney transplant-on rejection medication and hyperkalemia. She requested I give patient another liter of normal saline. Patient placed on insulin drip. I attending, did speak to ICU physician, who accepted patient to the ICU. Patient and family verbally agreed for patient to be admitted to hospital for further workup, evaluation and treatment. - Lab Data Result diagrams: 10/27/21 10:37 10/27/21 10:37 Lab Results 10/27/21 10/27/21 10/27/21 Range/Units 10:37 10:37 10:37 WBC 18.9 H (3.8-10.6) k/uL RBC 3.93 (3.80-5.40) m/uL Hgb 10.9 L (11.4-16.0) gm/dL Hct 36.8 (34.0-46.0) % MCV 93.7 (80.0-100.0) fL MCH 27.7 (25.0-35.0) pg MCHC 29.6 L (31.0-37.0) g/dL RDW 14.2 (11.5-15.5) % Plt Count 382 (150-450) k/uL MPV 8.8 Neutrophils % 88 % Lymphocytes % 7 % Monocytes % 3 % Eosinophils % 0 % Basophils % 0 % Neutrophils # 16.7 H (1.3-7.7) k/uL Lymphocytes # 1.4 (1.0-4.8) k/uL Monocytes # 0.5 (0-1.0) k/uL Eosinophils # 0.1 (0-0.7) k/uL Basophils # 0.1 (0-0.2) k/uL Hypochromasia Marked PT 10.6 (9.0-12.0) sec INR 1.0 (<1.2) APTT 21.3 L (22.0-30.0) sec Sodium 128 L (137-145) mmol/L Potassium 6.2 H* (3.5-5.1) mmol/L Chloride 97 L (98-107) mmol/L Carbon Dioxide 15 L (22-30) mmol/L Anion Gap 16 mmol/L BUN 71 H (7-17) mg/dL Creatinine 2.86 H (0.52-1.04) mg/dL Est GFR (CKD-EPI)AfAm 19 (>60 ml/min/1.73 sqM) Est GFR (CKD-EPI)NonAf 16 (>60 ml/min/1.73 sqM) Glucose 727 H* (74-99) mg/dL POC Glucose (mg/dL) (75-99) mg/dL POC [employer] Analyst ID Plasma Lactic Acid David (0.7-2.0) mmol/L Calcium 9.9 (8.4-10.2) mg/dL Total Bilirubin 0.5 (0.2-1.3) mg/dL AST 18 (14-36) U/L ALT 11 (4-34) U/L Alkaline Phosphatase 108 (38-126) U/L Total Protein 7.3 (6.3-8.2) g/dL Albumin 3.7 (3.5-5.0) g/dL Urine Color Urine Appearance (Clear) Urine pH (5.0-8.0) Ur Specific [place] (1.001-1.035) Urine Protein (Negative) Urine Glucose (UA) (Negative) Urine Ketones (Negative) Urine Blood (Negative) Urine Nitrite (Negative) Urine Bilirubin (Negative) Urine Urobilinogen (<2.0) mg/dL Ur Leukocyte Esterase (Negative) Urine RBC (0-5) /hpf Urine WBC (0-5) /hpf Ur Squamous Epith Cells (0-4) /hpf Urine Bacteria (None) /hpf 10/27/21 10/27/21 10/27/21 Range/Units 10:37 10:43 10:45 WBC (3.8-10.6) k/uL RBC (3.80-5.40) m/uL Hgb (11.4-16.0) gm/dL Hct (34.0-46.0) % MCV (80.0-100.0) fL MCH (25.0-35.0) pg MCHC (31.0-37.0) g/dL RDW (11.5-15.5) % Plt Count (150-450) k/uL MPV Neutrophils % % Lymphocytes % % Monocytes % % Eosinophils % % Basophils % % Neutrophils # (1.3-7.7) k/uL Lymphocytes # (1.0-4.8) k/uL Monocytes # (0-1.0) k/uL Eosinophils # (0-0.7) k/uL Basophils # (0-0.2) k/uL Hypochromasia PT (9.0-12.0) sec INR (<1.2) APTT (22.0-30.0) sec Sodium (137-145) mmol/L Potassium (3.5-5.1) mmol/L Chloride (98-107) mmol/L Carbon Dioxide (22-30) mmol/L Anion Gap mmol/L BUN (7-17) mg/dL Creatinine (0.52-1.04) mg/dL Est GFR (CKD-EPI)AfAm (>60 ml/min/1.73 sqM) Est GFR (CKD-EPI)NonAf (>60 ml/min/1.73 sqM) Glucose (74-99) mg/dL POC Glucose (mg/dL) >600 H (75-99) mg/dL POC [employer] Analyst ID [employer] Plasma Lactic Acid David 1.9 (0.7-2.0) mmol/L Calcium (8.4-10.2) mg/dL Total Bilirubin (0.2-1.3) mg/dL AST (14-36) U/L ALT (4-34) U/L Alkaline Phosphatase (38-126) U/L Total Protein (6.3-8.2) g/dL Albumin (3.5-5.0) g/dL Urine Color Light Yellow Urine Appearance Clear (Clear) Urine pH 6.5 (5.0-8.0) Ur Specific [place] 1.014 (1.001-1.035) Urine Protein 1+ H (Negative) Urine Glucose (UA) 4+ H (Negative) Urine Ketones Trace H (Negative) Urine Blood Trace H (Negative) Urine Nitrite Negative (Negative) Urine Bilirubin Negative (Negative) Urine Urobilinogen <2.0 (<2.0) mg/dL Ur Leukocyte Esterase Large H (Negative) Urine RBC 1 (0-5) /hpf Urine WBC 58 H (0-5) /hpf Ur Squamous Epith Cells <1 (0-4) /hpf Urine Bacteria Rare H (None) /hpf Critical Care Time Critical Care Time: Yes Critical Care Time: 31 mins Disposition Clinical Impression: Diabetic ketoacidosis associated with type 2 diabetes mellitus, Leukocytosis, Hyperkalemia, Urinary tract infection, Weakness Disposition: ADMITTED IP TO THIS [facility] Condition: Serious Referrals: Raza Purcell MD [Primary Care Provider] - 1-2 days Time of Disposition: 13:16
[2021-10-27 10:47] LABS: Glucose,Whole Blood >600 mg/dL (75-99)
[2021-10-27] MEDS ORDERED: SODIUM CHLORIDE 0.9% 500 ML 500 ML IV STA (11:01)
[2021-10-27 11:19] LABS: Basophils # (A) 0.1 k/uL (0-0.2); Basophils % (A) 0 %; Eosinophils # (A) 0.1 k/uL (0-0.7); Eosinophils % (A) 0 %; HCT 36.8 % (34.0-46.0); HGB 10.9 gm/dL (11.4-16.0); Hypochromasia Marked; Lymphocytes # (A) 1.4 k/uL (1.0-4.8); Lymphocytes % (A) 7 %; MCH 27.7 pg (25.0-35.0); MCHC 29.6 g/dL (31.0-37.0); MCV 93.7 fL (80.0-100.0); Mean Platelet Volume 8.8; Monocytes # (A) 0.5 k/uL (0-1.0); Monocytes % (A) 3 %; Neutrophils # (A) 16.7 k/uL (1.3-7.7); Neutrophils % (A) 88 %; Platelet Count 382 k/uL (150-450); RBC 3.93 m/uL (3.80-5.40); RDW 14.2 % (11.5-15.5); WBC 18.9 k/uL (3.8-10.6)
[2021-10-27 11:37] LABS: Albumin 3.7 g/dL (3.5-5.0); Calcium 9.9 mg/dL (8.4-10.2); Total Bilirubin 0.5 mg/dL (0.2-1.3); Total Protein 7.3 g/dL (6.3-8.2)
--- NOTE | 2021-10-27 11:42 | XR ---
EXAMINATION TYPE: XR chest 2V DATE OF EXAM: 10/27/2021 COMPARISON: 04/25/[address] 07/07/2021 HISTORY: 70-year-old female with weakness TECHNIQUE: AP and lateral views FINDINGS: Heart upper limits of normal in size. Aorta is tortuous/ectatic. Mild interstitial prominence unchang ed. Strandy atelectasis right base. No progressive consolidation or pleural effusion. [facility] mid and lo wer thoracic spine. Possible underlying mild anterior wedge deformity upper third thoracic spine, pro bably chronic. Prominent grade 1 anterolisthesis T11-T12 appears to have been present on the 07/07/2021 CT. IMPRESSION: 1. Chronic appearing changes. No acute process seen. 2. DISH mid and lower thoracic spine with chronic-appearing grade 1 anterolisthesis T11-T12, similar to the appearance on the CT of 07/07/2021.
[2021-10-27 11:51] LABS: Prothrombin Time 10.6 sec (9.0-12.0)
--- NOTE | 2021-10-27 11:51 | CT ---
EXAMINATION TYPE: CT brain wo con DATE OF EXAM: 10/27/2021 COMPARISON: None available HISTORY: Confusion CT DLP: 1096.4 mGycm Automated exposure control for dose reduction was used. TECHNIQUE: CT scan of the brain is performed without IV contrast administration. FINDINGS: Brain volume loss changes, likely age-related. Questionable tiny lacunar infarct at the head of the c audate nucleus, seen bilaterally. Suspected perivascular space seen inferior to the left lentiform nu cleus. Scattered arterial atherosclerotic calcifications. No acute intracranial hemorrhage. No gross acute cortical infarct. No midline shift, herniation or ve ntriculomegaly. Unremarkable arnold-white matter differentiation, basal cisterns, sella and CP angles. No gross space-o ccupying lesion, vasogenic edema or mass effect. Unremarkable orbits. Clear visualized paranasal sinuses and mastoid air cells. Severe diffuse osteope cady. IMPRESSION: No acute intracranial abnormality or gross space-occupying lesion by this nonenhanced CT scan. Questi onable tiny lacunar infarcts in the caudate nuclei. Other incidental findings as described above.
[2021-10-27 11:55] LABS: Potassium 6.2 mmol/L (3.5-5.1)
[2021-10-27 12:07] LABS: Partial Thromboplastin Time 21.3 sec (22.0-30.0)
[2021-10-27] MEDS ORDERED: SODIUM BICARB 8.4% 50 ML SYR (1 MEQ/ML) IV ONE (12:07)
[2021-10-27] MEDS ORDERED: INSULIN REGULAR 100 UNIT/ML VIAL (IV) IV ONE (12:07)
[2021-10-27] MEDS ORDERED: SODIUM POLYSTYRENE SULFONATE 15 GM/60 ML BOTTLE PO ONE (12:07)
[2021-10-27] MEDS ORDERED: CALCIUM GLUCONATE IN NACL 1 GM in SALINE 1 100ML.BAG IVPB ONE (12:07)
[2021-10-27 12:08] LABS: Appearance,Urine Clear (Clear); Bacteria,Urine Rare /hpf; Bilirubin,Urine Negative (Negative); Blood,Urine Trace (Negative); Color,Urine Light Yellow; Glucose,Urine (UA) 4+ (Negative); Ketones,Urine Trace (Negative); Leukocyte Esterase,Urine Large (Negative); Nitrite,Urine Negative (Negative); PH, Urine 6.5 (5.0-8.0); Protein,Urine 1+ (Negative); RBC,Urine 1 /hpf (0-5); Specific Gravity,Urine 1.014 (1.001-1.035); Squamous Epithelial Cell,Urine <1 /hpf (0-4); Urobilinogen,Urine <2.0 mg/dL (<2.0); WBC,Urine 58 /hpf (0-5)
[2021-10-27] MEDS ORDERED: cefTRIAXone IN SWFI 1,000 MG/10 ML SYRINGE IVP STA (12:08)
[2021-10-27] MEDS ORDERED: SODIUM CHLORIDE 0.9% 1,000 ML IV SCH ×2 (12:15→18:00)
[2021-10-27] MEDS ORDERED: SODIUM CHLORIDE 0.9% 1,000 ML IV STA (12:56)
[2021-10-27 13:22] LABS: Glucose,Whole Blood >600 mg/dL (75-99)
[2021-10-27] MEDS: INSULIN REGULAR 100 UNIT in SODIUM CHLORIDE 0.9% 100 ML IV SCH (13:24)
--- NOTE | 2021-10-27 14:49 | P.CNPUL ---
History of Present Illness Consult date: 10/27/21 Chief complaint: Generalized weakness, hyperglycemia, DKA History of present illness: This is a 70-year-old female patient, known history of kidney transplant back in 2017, maintain a suppressive agents with a combination of Prograf 5 mg at bedt aftab and CellCept 360 mg by mouth twice a day, who is also diabetic maintained on Lantus insulin 35 units at bedtime along with lispro insulin, presented emergency department because of generalized weakness, confusion and hyperglycemia. The patient has been having issues with UTI and abnormal labs. Apparently she was receiving treatment for UTI on outpatient basis and the patient was taking Cipro 500 mg on a daily basis. The patient was brought into the emergency department. The patient was quite dehydrated. She was trying to keep up with her fluid intake and she hasn't been eating a lot and she has been eating less than usual. She was also getting episodically confused. She denied having any fever. The patient had no chest pain. No shortness of breath. No nausea vomiting or emesis. No lightheadedness. No dizziness pain no focal neurological deficit. Appetite has been poor. The patient was found to have hyperglycemia with a sugar of 727. The sodium was at 128 with a potassium level of 6.2 with a BUN of 71 and a creatinine of 2.8. Serum bicarb was 15 and the patient a positive anion gap. The same time, the patient underwent second of 18.0 with a hemoglobin of 10.9 and platelet count of 382. LFTs were normal. Calcium level was at 9.9. The patient had a UA that showed 58 WBCs and the cultures still pending for now. The blood was positive for acetone. The anion gap was at 16. The patient was started on insulin drip for blood sugar control and the patient was started on a fluid resuscitation. The patient will be admitted to the intensive care unit for now. The patient already received a total of 2 L of IV fluids and currently the patient is on normal saline today to 35 mL an hour. The patient was also given a dose of sodium bicarbonate burst department and the patient was given Kayexalate 15 g by mouth 1. The patient was given a dose of IV Rocephin in the emergency department. Computed tomography scan of the brain shows no acute intracranial abnormalities. Questionable tiny lacunar infarct in the caudate nuclei. Chest x-ray showing chronic changes and DISH changes involving the mid and lower thoracic spine. Review of Systems CONSTITUTIONAL: No fevers or chills. No recent weight loss. Generalized weakness and fatigue and hyperglycemia and dehydration HEENT: No visual acuity loss, eye pain, difficulties with hearing. No nosebleeds. No difficulty swallowing. RESPIRATORY: Denies any troubles with breathing or dyspnea on exertion. CARDIOVASCULAR: Denies any chest pain, palpitations, or recent heart attacks. GASTROINTESTINAL: Denies fatty food intolerance. Has change in bowel habits and gas bloat. GENITOURINARY: Denies any blood in urine. Has increased urinary frequency. NEUROLOGICAL: + numbness and tingling along the distal extremities. No seizure disorders or headaches. MUSCULOSKELETAL: + back pain SKIN: No skin cancer. No rash. PSYCHIATRIC: Denies current depression or suicidal thoughts. ENDOCRINE: Denies current thyroid disorders. Hyperglycem ia and signs of DKA HEME/LYMPHATIC: Denies any lumps and bumps around the neck. History of deep venous thrombosis. ALLERGY/IMMUNOLOGY: No immunoglobulin therapy. No immune deficiencies. BREAST: Denies current breast lumps, pain or nipple discharge. Past Medical History Past Medical History: No Reported History, Asthma, Diabetes Mellitus, Dialysis, Eye Disorder, Hyperlipidemia, Hypertension, Renal Disease, Skin Disorder Additional Past Medical History / Comment(s): +covid last week, IDDM type II, neuropathy bilateral legs/feet, ESRD with past peritoneal/hemodialysis then in 2016 had renal transplant, UTI with sepsis, IBS, benign colon polyps, chronic low back pain, migraines, R eye retinal bleed with injections, L eye detached retina with surgery, anemia, History of Any Multi-Drug Resistant Organisms: ESBL Date of last positivie culture/infection: 2011 approx(PREVIOUSLY CHARTED) MDRO Source:: peritoneal dialysis cath Past Surgical History: Cholecystectomy, Hysterectomy, Orthopedic Surgery Additional Past Surgical History / Comment(s): Peritoneal dialysis cath since removed, hemodialysis cath since removed, 2016 renal transplant, EGD, colonoscopies/benign polypectomy, bilateral eye cataract removals, L eye detached retinal surgery, L knee arthroscopy Past Anesthesia/Blood Transfusion Reactions: No Reported Reaction Additional Past Anesthesia/Blood Transfusion Reaction / Comment(s): has had a hard time coming out of anesthesia Past Psychological History: No Psychological Hx Reported Smoking Status: Former smoker - Past Family History Mother History Unknown: Yes Additional Family Medical History / Comment(s): Mother of poisoning when pt was 11 yrs old. Father Family Medical History: Vascular Disorder Additional Family Medical History / Comment(s): brain aneurysm Medications and Allergies Home Medications Medication Instructions Recorded Confirmed Type Tacrolimus [Prograf] 6 mg PO DAILY 07/26/16 10/27/21 History Albuterol Nebulized [Ventolin 2.5 mg INHALATION RT-Q4H PRN 08/11/16 10/27/21 History Nebulized] Atorvastatin Calcium [Lipitor] 10 mg PO HS 08/11/16 10/27/21 History Sodium Bicarbonate Tab 1,300 mg PO TID 08/11/16 10/27/21 History amLODIPine [Norvasc] 10 mg PO DAILY 08/11/16 10/27/21 History predniSONE 5 mg PO DAILY 08/25/17 10/27/21 History Tacrolimus [Prograf] 5 mg PO HS 06/01/18 10/27/21 History Insulin Glargine,Hum.rec.anlog 35 unit SQ HS 04/18/20 10/27/21 History [Lantus Solostar Pen] Losartan Potassium 100 mg PO DAILY 04/18/20 10/27/21 History Insulin Lispro [humaLOG Kwikpen] See Protocol SQ AC-TID 04/25/20 10/27/21 History Mycophenolate Sodium [Mycophenolic 360 mg PO BID 04/25/20 10/27/21 History Acid] Carvedilol [Coreg] 25 mg PO BID 10/27/21 10/27/21 History Ciprofloxacin HCl [Cipro] 500 mg PO DAILY 10/27/21 10/27/21 History Ergocalciferol [Vitamin D2 (1250 1,250 mcg PO PARRISH 10/27/21 10/27/21 History Mcg = 33796 Iu)] Famotidine 40 mg PO DAILY 10/27/21 10/27/21 History Furosemide [Lasix] 40 mg PO DAILY PRN 10/27/21 10/27/21 History Lidocaine 5% Patch [Lidoderm] 1 patch TRANSDERM DAILY PRN 10/27/21 10/27/21 History Loperamide HCl [Imodium A-D] 2 mg PO TID PRN 10/27/21 10/27/21 History cycloSPORINE 0.05% OPHTH SOLN 1 drop BOTH EYES BID 10/27/21 10/27/21 History [Restasis] hydrALAZINE HCL [Apresoline] 75 mg PO TID 10/27/21 10/27/21 History Allergies Allergy/AdvReac Type Severity Reaction Status Date / Time hydralazine [From Apresoline] Allergy Rash/Hives Verified 10/27/21 10:00 Iodinated Contrast Media Allergy Unknown Verified 10/27/21 10:00 [Iodinated Contrast- Oral and IV Dye] meperidine [From Demerol] Allergy Anaphylaxis Verified 10/27/21 10:00 Physical Exam Vitals: Vital Signs Pulse Resp BP Pulse Ox 10/27/21 11:36 92 18 162/86 97 10/27/21 10:30 18 Intake and Output 10/26/21 10/27/21 10/27/21 22:59 06:59 14:59 Other: Weight 83.915 kg General appearance: alert, in no apparent distress, currently on room air oxygen and the patient's pulse ox is 97% Head exam: Present: atraumatic, normocephalic, normal inspection Eye exam: Present: normal appearance, PERRL, EOMI. Absent: scleral icterus, conjunctival injection, periorbital swelling Pupils: Present: normal accommodation ENT exam: Present: normal exam, mucous membranes moist Neck exam: Present: normal inspection, full ROM. Absent: tenderness, meningismus, lymphadenopathy Respiratory exam: Present: normal lung sounds bilaterally. Absent: respiratory distress, wheezes, rales, rhonchi, stridor, chest wall tenderness Cardiovascular Exam: Present: regular rate, normal rhythm, normal heart sounds. Absent: systolic murmur, diastolic murmur, rubs, gallop, clicks GI/Abdominal exam: Present: soft, normal bowel sounds. Absent: distended, tenderness, guarding, rebound, rigid Extremities exam: Present: normal inspection, full ROM, normal capillary refill. Absent: tenderness, pedal edema, joint swelling, calf tenderness Back exam: Present: full ROM. Absent: CVA tenderness (R), CVA tenderness (L), paraspinal tenderness, vertebral tenderness Neurological exam: Present: alert, oriented X3 (Patientname, where she is at, the year), CN II-XII intact Psychiatric exam: Present: normal affect, normal mood Skin exam: Present: warm, dry, intact, normal color. Absent: rash Results - Laboratory Findings CBC and BMP: 10/27/21 10:37 10/27/21 10:37 PT/INR, D-dimer PT 10.6 sec (9.0-12.0) 10/27/21 10:37 INR 1.0 (<1.2) 10/27/21 10:37 Abnormal lab findings: Abnormal Labs 10/27/21 10/27/21 10/27/21 10:37 10:37 10:37 WBC 18.9 H Hgb 10.9 L MCHC 29.6 L Neutrophils # 16.7 H APTT 21.3 L Sodium 128 L Potassium 6.2 H* Chloride 97 L Carbon Dioxide 15 L BUN 71 H Creatinine 2.86 H Glucose 727 H* POC Glucose (mg/dL) Urine Protein Urine Glucose (UA) Urine Ketones Urine Blood Ur Leukocyte Esterase Urine WBC Urine Bacteria 10/27/21 10/27/21 10/27/21 10:43 10:45 13:21 WBC Hgb MCHC Neutrophils # APTT Sodium Potassium Chloride Carbon Dioxide BUN Creatinine Glucose POC Glucose (mg/dL) >600 H >600 H Urine Protein 1+ H Urine Glucose (UA) 4+ H Urine Ketones Trace H Urine Blood Trace H Ur Leukocyte Esterase Large H Urine WBC 58 H Urine Bacteria Rare H - Diagnostic Findings Chest x-ray: image reviewed Assessment and Plan Plan: DKA with anion gap metabolic acidosis, probably induced by an underlying recurrent UTI. The patient presented emergency department with dehydration, and anion gap metabolic acidosis with a gap of 16 and positive serum ketones Pseudohyponatremia secondary to above Acute hyperkalemia secondary to above Acute kidney injury , secondary to above. The patient's baseline creatinine from earlier this year was around 1.7 the patient has chronic stage III kidney disease Recurrent UTIs with previous cultures indicating E. coli History of renal transplant back in 2017 and the patient has been maintained on a combination of Prograf and CellCept and low-dose prednisone Diabetes mellitus, maintain on Lantus insulin 35 units along with lispro Previous history of coronary thin infection Diabetic peripheral neuropathy History of end-stage renal disease with previous hemodialysis and peritoneal dialysis and the patient is status post kidney chest mentation IBS Colonic polyps Chronic back pain secondary to spondylosis and spinal stenosis History of diabetic retinopathy and previous retinal bleeds and previous history of left eye retinal detachment Plan Management per DKA protocol Monitor the electrolytes every 4 hours and anticipate improvement in the sodium level and the potassium level with insulin Continue IV Rocephin Urine cultures Blood cultures Monitor renal function as the patient has a component of acute on top of chronic kidney disease Keep nothing by mouth for now Status post hydrocortisone May need to restart immunosuppressive agents within next 24 hours Nephrology consultation regarding we'll transplant We'll continue to follow
[2021-10-27 15:09] LABS: Glucose,Whole Blood 455 mg/dL (75-99)
[2021-10-27] MEDS: HYDROCORTISONE SUCCINATE 100 MG/2 ML VIAL IV SCH ×2 (16:00→16:02)
[2021-10-27] MEDS: HEPARIN SODIUM,PORCINE/PF 5,000 UNIT/0.5 ML SYRINGE SQ SCH (16:00)
[2021-10-27 16:13] LABS: Glucose,Whole Blood 261 mg/dL (75-99)
[2021-10-27 16:31] LABS: Potassium 4.6 mmol/L (3.5-5.1)
[2021-10-27 16:53] LABS: Glucose,Whole Blood 205 mg/dL (75-99)
[2021-10-27] MEDS ORDERED: ALBUTEROL NEBULIZED 2.5 MG/3 ML INHALATION PRN (17:51)
[2021-10-27] MEDS ORDERED: LIDOCAINE 5% PATCH TOPICAL PRN (17:51)
[2021-10-27] MEDS ORDERED: NALOXONE 0.4 MG/ML 1 ML VIAL IV PRN (17:54)
[2021-10-27] MEDS ORDERED: Potassium Replacement Protocol 1 EACH MISC MISCELLANE PRN (17:54)
[2021-10-27] MEDS ORDERED: ACETAMINOPHEN TAB 325 MG TAB PO PRN (17:54)
[2021-10-27] MEDS ORDERED: CALCIUM CARBONATE 500 MG CHEWABLE PO PRN (17:54)
[2021-10-27] MEDS ORDERED: Magnesium Replacement Protocol 1 EACH MISC MISCELLANE PRN (17:54)
[2021-10-27] MEDS ORDERED: MELATONIN 3 MG TABLET PO PRN (17:54)
[2021-10-27] MEDS ORDERED: ONDANSETRON 4 MG/2 ML VIAL IVP PRN (17:54)
--- NOTE | 2021-10-27 18:12 | P.HPIM ---
History of Present Illness H&P Date: 10/27/21 Chief Complaint: UTI Patient is a 70-year-old female with history of kidney transplant in 2017 maintained on CellCept and Prograf, diabetes type 2 on insulin, asthma, hypertension, and dyslipidemia who initially presented to the emergency department due to weakness, confusion, and hyperglycemia. Patient had been having issues with urinary tract infection and laboratory abnormalities for the last 2 weeks. She was taking Cipro 500 mg outpatient. On arrival to the ER her vital signs were within normal limits. Laboratory analysis showed white blood cell count of 18.9, sodium 128, potassium 6.2, carbon dioxide 15, anion gap 16, BUN 71, creatinine 2.86, glucose 727, urinalysis was positive for ketones and acetone. In the ER she was started on IV fluids, ceftriaxone, and insulin drip. She was also giving temporizing potassium managers as well as Kayexalate. Patient seen and examined at bedside.On my arrival to the ER the patient is quite confused and having her time concentrating and thinking. We checked a stat blood glucose which was down to 255. I immediately asked the nurse to stop the insulin drip and have the patient drink apple juice. Patient states she is feeling lethargic, confused, and having a hard time concentrating. She is able to tell me that she follows up with nephrology at [facility]. She also reports that she was seeing Dr. Purcell who started her on an antibiotic and then told her to come to the ER after blood work demonstrated that she was likely in DKA and had a high potassium level. She has unable to obtain a further review of systems secondary to confusion. All information is obtained from thorough review of records including hospital stay from 04/25. General: ill appearing, no distress, appears at stated age Derm: warm, dry Head: atraumatic, normocephalic, symmetric Eyes: EOMI, no lid lag, anicteric sclera, pupils equal round reactive to light ENT: Nose and ears atraumatic, no thrush, no pharyngeal erythema Neck: No thyromegaly, no cervical lymphadenopathy, trachea midline, supple Mouth: no lip lesion, mucus membranes dry Cardiovascular: S1S2 reg, no murmur, positive posterior tibial pulse bilateral, no edema, capillary refill less than 2 seconds Lungs: clear to ascultation bilateral, no ronchi, no rales, no wheeze, no accessory muscle use Abdominal: soft, nontender to palpation, no guarding, no appreciable organomegaly, normal bowel sounds Ext: no gross muscle atrophy, renal function is independently but too lethargic to participate in formal muscle strength testing no contractures Neuro: CN II-XI grossly intact, light touch intact all 4 extremities, Psych: Lethargic, oriented 3, appropriate affect Assessment/plan: DKA -IV fluids -Patient hasn't placed on DKA protocol. At this time her blood sugar has come down faster than anticipated. We will hold her insulin drip. Continue to check blood sugars every 30 minutes at this time. Administer apple juice. She will need to be monitored closely in the ICU. Nursing to call with next blood sugar. UTI, POA, not cath associated - rocephin - await urine culture Hyponatremia, pseudo-and corrects Hyperkalemia Acute kidney injury on chronic kidney disease stage III in the setting of renal transplant due to dialysis Immunocompromised do to transplant -Critical care has initiated a stress dose steroids -Hold diuretics and JUSTIN inhibitor for toxic agents -Patient was given temporizing measures and Kayexalate for her hyperkalemia. This has since resolved -IV fluids -Renal ultrasound including transplant ultrasound -Consult nephrology. Spoke with him over the phone and recommended holding CellCept and starting Prograf with a Prograf level in a.m. -Continue with bicarb Diabetes mellitus type 2 with neuropathy -Hold patient's home diabetic insulin regimen -Continue with DKA management -Check hemoglobin A1c Hypertension -Continue with Norvasc, hydralazine, Coreg -Follow blood pressures Chronic: Asthma Chronic back pain Irritable bowel syndrome The patient is admitted with an anticipated greater than 2 midnight stay for evaluation of DKA. CODE STATUS:full DVT prophylaxis: lovenox Discussed with: patient nursing, ed provider Anticipated discharge date: in 3-[address]: home A total of 65 minutes was spent on the care of this complex patient more than 50% of the time was spent in counseling and care coordination. Past Medical History Past Medical History: No Reported History, Asthma, Diabetes Mellitus, Dialysis, Eye Disorder, Hyperlipidemia, Hypertension, Renal Disease, Skin Disorder Additional Past Medical History / Comment(s): +covid last week, IDDM type II, neuropathy bilateral legs/feet, ESRD with past peritoneal/hemodialysis then in 2016 had renal transplant, UTI with sepsis, IBS, benign colon polyps, chronic low back pain, migraines, R eye retinal bleed with injections, L eye detached retina with surgery, anemia, History of Any Multi-Drug Resistant Organisms: ESBL Date of last positivie culture/infection: 2011 approx(PREVIOUSLY CHARTED) MDRO Source:: peritoneal dialysis cath Past Surgical History: Cholecystectomy, Hysterectomy, Orthopedic Surgery Additional Past Surgical History / Comment(s): Peritoneal dialysis cath since removed, hemodialysis cath since removed, 2016 renal transplant, EGD, colonoscopies/benign polypectomy, bilateral eye cataract removals, L eye detached retinal surgery, L knee arthroscopy Past Anesthesia/Blood Transfusion Reactions: No Reported Reaction Additional Past Anesthesia/Blood Transfusion Reaction / Comment(s): has had a hard time coming out of anesthesia Past Psychological History: No Psychological Hx Reported Smoking Status: Former smoker - Past Family History Mother History Unknown: Yes Additional Family Medical History / Comment(s): Mother of poisoning when pt was 11 yrs old. Father Family Medical History: Vascular Disorder Additional Family Medical History / Comment(s): brain aneurysm Medications and Allergies Home Medications Medication Instructions Recorded Confirmed Type Tacrolimus [Prograf] 6 mg PO DAILY 07/26/16 10/27/21 History Albuterol Nebulized [Ventolin 2.5 mg INHALATION RT-Q4H PRN 08/11/16 10/27/21 History Nebulized] Atorvastatin Calcium [Lipitor] 10 mg PO HS 08/11/16 10/27/21 History Sodium Bicarbonate Tab 1,300 mg PO TID 08/11/16 10/27/21 History amLODIPine [Norvasc] 10 mg PO DAILY 08/11/16 10/27/21 History predniSONE 5 mg PO DAILY 08/25/17 10/27/21 History Tacrolimus [Prograf] 5 mg PO HS 06/01/18 10/27/21 History Insulin Glargine,Hum.rec.anlog 35 unit SQ HS 04/18/20 10/27/21 History [Lantus Solostar Pen] Losartan Potassium 100 mg PO DAILY 04/18/20 10/27/21 History Insulin Lispro [humaLOG Kwikpen] See Protocol SQ AC-TID 04/25/20 10/27/21 History Mycophenolate Sodium [Mycophenolic 360 mg PO BID 04/25/20 10/27/21 History Acid] Carvedilol [Coreg] 25 mg PO BID 10/27/21 10/27/21 History Ciprofloxacin HCl [Cipro] 500 mg PO DAILY 10/27/21 10/27/21 History Ergocalciferol [Vitamin D2 (1250 1,250 mcg PO PARRISH 10/27/21 10/27/21 History Mcg = [id number] Iu)] Famotidine 40 mg PO DAILY 10/27/21 10/27/21 History Furosemide [Lasix] 40 mg PO DAILY PRN 10/27/21 10/27/21 History Lidocaine 5% Patch [Lidoderm] 1 patch TRANSDERM DAILY PRN 10/27/21 10/27/21 History Loperamide HCl [Imodium A-D] 2 mg PO TID PRN 10/27/21 10/27/21 History cycloSPORINE 0.05% OPHTH SOLN 1 drop BOTH EYES BID 10/27/21 10/27/21 History [Restasis] hydrALAZINE HCL [Apresoline] 75 mg PO TID 10/27/21 10/27/21 History Allergies Allergy/AdvReac Type Severity Reaction Status Date / Time hydralazine [From Apresoline] Allergy Rash/Hives Verified 10/27/21 10:00 Iodinated Contrast Media Allergy Unknown Verified 10/27/21 10:00 [Iodinated Contrast- Oral and IV Dye] meperidine [From Demerol] Allergy Anaphylaxis Verified 10/27/21 10:00 Physical Exam Osteopathic Statement: *. No significant issues noted on an osteopathic structural exam other than those noted in the History and Physical/Consult. Vitals: Vital Signs Pulse Resp BP Pulse Ox 10/27/21 11:36 92 18 162/86 97 10/27/21 10:30 18 Intake and Output 10/27/21 10/27/21 10/27/21 06:59 14:59 22:59 Other: Weight 83.915 kg Results CBC & Chem 7: 10/27/21 10:37 10/27/21 15:47 Labs: Abnormal Lab Results - Last 24 Hours (Table) 10/27/21 10/27/21 10/27/21 Range/Units 10:37 10:37 10:37 WBC 18.9 H (3.8-10.6) k/uL Hgb 10.9 L (11.4-16.0) gm/dL MCHC 29.6 L (31.0-37.0) g/dL Neutrophils # 16.7 H (1.3-7.7) k/uL APTT 21.3 L (22.0-30.0) sec Sodium 128 L (137-145) mmol/L Potassium 6.2 H* (3.5-5.1) mmol/L Chloride 97 L (98-107) mmol/L Carbon Dioxide 15 L (22-30) mmol/L BUN 71 H (7-17) mg/dL Creatinine 2.86 H (0.52-1.04) mg/dL Glucose 727 H* (74-99) mg/dL POC Glucose (mg/dL) (75-99) mg/dL Urine Protein (Negative) Urine Glucose (UA) (Negative) Urine Ketones (Negative) Urine Blood (Negative) Ur Leukocyte Esterase (Negative) Urine WBC (0-5) /hpf Urine Bacteria (None) /hpf 10/27/21 10/27/21 10/27/21 Range/Units 10:43 10:45 13:21 WBC (3.8-10.6) k/uL Hgb (11.4-16.0) gm/dL MCHC (31.0-37.0) g/dL Neutrophils # (1.3-7.7) k/uL APTT (22.0-30.0) sec Sodium (137-145) mmol/L Potassium (3.5-5.1) mmol/L Chloride (98-107) mmol/L Carbon Dioxide (22-30) mmol/L BUN (7-17) mg/dL Creatinine (0.52-1.04) mg/dL Glucose (74-99) mg/dL POC Glucose (mg/dL) >600 H >600 H (75-99) mg/dL Urine Protein 1+ H (Negative) Urine Glucose (UA) 4+ H (Negative) Urine Ketones Trace H (Negative) Urine Blood Trace H (Negative) Ur Leukocyte Esterase Large H (Negative) Urine WBC 58 H (0-5) /hpf Urine Bacteria Rare H (None) /hpf 10/27/21 Range/Units 15:06 WBC (3.8-10.6) k/uL Hgb (11.4-16.0) gm/dL MCHC (31.0-37.0) g/dL Neutrophils # (1.3-7.7) k/uL APTT (22.0-30.0) sec Sodium (137-145) mmol/L Potassium (3.5-5.1) mmol/L Chloride (98-107) mmol/L Carbon Dioxide (22-30) mmol/L BUN (7-17) mg/dL Creatinine (0.52-1.04) mg/dL Glucose (74-99) mg/dL POC Glucose (mg/dL) 455 H (75-99) mg/dL Urine Protein (Negative) Urine Glucose (UA) (Negative) Urine Ketones (Negative) Urine Blood (Negative) Ur Leukocyte Esterase (Negative) Urine WBC (0-5) /hpf Urine Bacteria (None) /hpf
[2021-10-27 18:34] LABS: Glucose,Whole Blood 249 mg/dL (75-99)
[2021-10-27] MEDS ORDERED: D5-0.45% NACL WITH KCL 20MEQ/L 1,000 ML IV SCH (18:45)
[2021-10-27 19:05] LABS: Glucose,Whole Blood 247 mg/dL (75-99)
[2021-10-27] MEDS: D5-0.45% NACL WITH KCL 20MEQ/L 1,000 ML IV SCH (20:04)
[2021-10-27 20:11] LABS: Glucose,Whole Blood 194 mg/dL (75-99)
[2021-10-27 21:15] LABS: Phosphorus 2.8 mg/dL (2.5-4.5)
[2021-10-27 21:53] LABS: Glucose,Whole Blood 170 mg/dL (75-99)
[2021-10-27] MEDS: hydrALAZINE HCL 25 MG TAB PO SCH ×2 (22:00→23:16)
[2021-10-27] MEDS: ATORVASTATIN 10 MG TAB PO SCH (23:15)
[2021-10-27] MEDS: carvediloL 12.5 MG TAB PO SCH (23:16)
[2021-10-27] MEDS: SODIUM BICARBONATE TAB 650 MG TAB PO SCH (23:16)
[2021-10-27] MEDS: cycloSPORINE 0.05% OPHTH 0.4 ML DROPERETTE BOTH EYES SCH (23:16)
[2021-10-27] MEDS: TACROLIMUS 1 MG CAP PO SCH (23:20)
[2021-10-27 23:26] LABS: Glucose,Whole Blood 150 mg/dL (75-99)
[2021-10-28 00:17] LABS: Glucose,Whole Blood 124 mg/dL (75-99)
[2021-10-28] MEDS: HYDROCORTISONE SUCCINATE 100 MG/2 ML VIAL IV SCH ×3 (00:28→19:23)
[2021-10-28] MEDS: HEPARIN SODIUM,PORCINE/PF 5,000 UNIT/0.5 ML SYRINGE SQ SCH ×3 (00:28→16:09)
[2021-10-28 01:13] LABS: Glucose,Whole Blood 158 mg/dL (75-99)
[2021-10-28 02:39] LABS: Glucose,Whole Blood 193 mg/dL (75-99)
[2021-10-28] MEDS: D5-0.45% NACL WITH KCL 20MEQ/L 1,000 ML IV SCH (02:56)
[2021-10-28 03:30] LABS: Glucose,Whole Blood 218 mg/dL (75-99)
[2021-10-28 04:18] LABS: Glucose,Whole Blood 229 mg/dL (75-99)
[2021-10-28 05:15] LABS: Glucose,Whole Blood 290 mg/dL (75-99)
[2021-10-28 06:10] LABS: HCT 32.8 % (34.0-46.0); HGB 9.8 gm/dL (11.4-16.0); Hypochromasia Moderate; MCH 27.7 pg (25.0-35.0); MCHC 29.9 g/dL (31.0-37.0); MCV 92.5 fL (80.0-100.0); Mean Platelet Volume 8.3; Platelet Count 306 k/uL (150-450); RBC 3.55 m/uL (3.80-5.40); RDW 13.7 % (11.5-15.5); WBC 18.7 k/uL (3.8-10.6)
[2021-10-28 06:11] LABS: Glucose,Whole Blood 288 mg/dL (75-99)
[2021-10-28 06:21] LABS: Albumin 2.8 g/dL (3.5-5.0); Potassium 5.6 mmol/L (3.5-5.1); Total Bilirubin 0.3 mg/dL (0.2-1.3); Total Protein 5.8 g/dL (6.3-8.2)
[2021-10-28 06:24] LABS: Magnesium 1.7 mg/dL (1.6-2.3); Phosphorus 3.2 mg/dL (2.5-4.5)
[2021-10-28 06:25] LABS: VBG PH 7.27 (7.31-7.41)
[2021-10-28 07:08] LABS: Glucose,Whole Blood 316 mg/dL (75-99)
[2021-10-28 07:08] LABS: Glucose,Whole Blood 341 mg/dL (75-99)
[2021-10-28 08:05] LABS: Glucose,Whole Blood 355 mg/dL (75-99)
[2021-10-28] MEDS: INSULIN REGULAR 100 UNIT in SODIUM CHLORIDE 0.9% 100 ML IV SCH (08:16)
[2021-10-28] MEDS: amLODIPine 10 MG TAB PO SCH (08:24)
[2021-10-28] MEDS: cycloSPORINE 0.05% OPHTH 0.4 ML DROPERETTE BOTH EYES SCH ×2 (08:24→22:12)
[2021-10-28] MEDS: carvediloL 12.5 MG TAB PO SCH ×2 (08:24→17:20)
[2021-10-28] MEDS: FAMOTIDINE 20 MG TAB PO SCH (08:25)
[2021-10-28] MEDS: SODIUM BICARBONATE TAB 650 MG TAB PO SCH ×3 (08:25→21:13)
[2021-10-28] MEDS: hydrALAZINE HCL 25 MG TAB PO SCH ×3 (08:27→21:18)
[2021-10-28] MEDS: SODIUM CHLORIDE 0.9% 1,000 ML IV SCH (08:27)
[2021-10-28] MEDS: INSULIN DETEMIR (LEVEMIR) 100 UNIT/ML SYR SQ SCH (08:52)
[2021-10-28] MEDS: TACROLIMUS 1 MG CAP PO SCH ×2 (08:52→21:14)
--- NOTE | 2021-10-28 09:20 | P.PN ---
Subjective Progress Note Date: 10/28/21 Principal diagnosis: This is a 70-year-old female patient, known history of kidney transplant back in 2017, maintain a suppressive agents with a combination of Prograf 5 mg at bedtime and CellCept 360 mg by mouth twice a day, who is also diabetic mainta ined on Lantus insulin 35 units at bedtime along with lispro insulin, presented emergency department because of generalized weakness, confusion and hyperglycemia. The patient has been having issues with UTI and abnormal labs. Apparently she was receiving treatment for UTI on outpatient basis and the patient was taking Cipro 500 mg on a daily basis. The patient was brought into the emergency department. The patient was quite dehydrated. She was trying to keep up with her fluid intake and she hasn't been eating a lot and she has been eating less than usual. She was also getting episodically confused. She denied having any fever. The patient had no chest pain. No shortness of breath. No nausea vomiting or emesis. No lightheadedness. No dizziness pain no focal neurological deficit. Appetite has been poor. The patient was found to have hyperglycemia with a sugar of 727. The sodium was at 128 with a potassium level of 6.2 with a BUN of 71 and a creatinine of 2.8. Serum bicarb was 15 and the patient a positive anion gap. The same time, the patient underwent second of 18.0 with a hemoglobin of 10.9 and platelet count of 382. LFTs were normal. Calcium level was at 9.9. The patient had a UA that showed 58 WBCs and the cultures still pending for now. The blood was positive for acetone. The anion gap was at 16. The patient was started on insulin drip for blood sugar control and the patient was started on a fluid resuscitation. The patient will be admitted to the intensive care unit for now. The patient already received a total of 2 L of IV fluids and currently the patient is on normal saline today to 35 mL an hour. The patient was also given a dose of sodium bicarbonate burst department and the patient was given Kayexalate 15 g by mouth 1. The patient was given a dose of IV Rocephin in the emergency department. Computed tomography scan of the brain shows no acute intracranial abnormalities. Questionable tiny lacunar infarct in the caudate nuclei. Chest x-ray showing chronic changes and DISH changes involving the mid and lower thoracic spine. On today's evaluation of 10/28/2021, the patient is feeling better. Blood sugars under better control. Overnight, the patient stayed on an insulin drip and anion gap has closed. The gap is currently down to 7 and the serum bicarb is up to 19. Sugar from today is 355 this morning. The patient was taken off the insulin and the patient is going to be switched to long-acting Lantus along with NovoLog with meals and size compared coverage. We will going to monitor blood sugars. She is on IV Rocephin. She is suspected to have a gram-negative UTI. Culture is still pending for now. The patient was restarted back on immunosuppressive agents would include a Prograf and CellCept is still on h old.. Repeat creatinine today is at 2.47 with a BUN of 62. The patient IV fluids are currently in the form of 0.9 at the rate of 75 mL an hour. Urine output is in order of 50-60 mL an hour. No nausea. No emesis. No abdominal pain. No chest pain. The white cell count today is at 18.7 with a hemoglobin of 9.8 which is essentially comparable to yesterday. Mentation is improved. Oxygenation is stable with a pulse ox of 97% on room air oxygen. Note that this patient has a transplanted kidney. She takes Lantus 35 units on outpatient basis. Objective - Vital Signs Vital signs: Vital Signs Temp 98.2 F 10/28/21 04:00 Pulse 72 10/28/21 07:19 Resp 15 10/28/21 07:19 BP 151/67 10/28/21 07:19 Pulse Ox 97 10/28/21 07:19 FiO2 Intake & Output 10/27/21 10/28/21 10/28/21 18:59 06:59 18:59 Intake Total 22.035 1597.547 302.801 Output Total 300 125 Balance 22.035 1297.547 177.801 Weight 83.915 kg 87.5 kg Intake: Intake, IV Titration 22.035 1597.547 302.801 Amount D5-0.45% NaCl with KCl 1500 150 20Meq/l 1,000 ml @ 150 mls/hr IV .[id number] [facility] Rx# :[id number] Insulin Regular 100 unit 22.035 22.547 2.801 In Sodium Chloride 0.9% 100 ml @ 0.1 UNITS/KG/HR 8.475 mls/hr IV .[id number] [facility] Rx#:[id number] Sodium Chloride 0.9% 1, 75 150 000 ml @ 200 mls/hr IV . Q5H [facility] Rx#:[id number] Output: Urine 300 125 Other: Voiding Method External Catheter External Catheter # Voids 1 - Exam General appearance: alert, in no apparent distress, currently on room air oxygen and the patient's pulse ox is 97% Head exam: Present: atraumatic, normocephalic, normal inspection Eye exam: Present: normal appearance, PERRL, EOMI. Absent: scleral icterus, conjunctival injection, periorbital swelling Pupils: Present: normal accommodation ENT exam: Present: normal exam, mucous membranes moist Neck exam: Present: normal inspection, full ROM. Absent: tenderness, meningismus, lymphadenopathy Respiratory exam: Present: normal lung sounds bilaterally. Absent: respiratory distress, wheezes, rales, rhonchi, stridor, chest wall tenderness Cardiovascular Exam: Present: regular rate, normal rhythm, normal heart sounds. Absent: systolic murmur, diastolic murmur, rubs, gallop, clicks GI/Abdominal exam: Present: soft, normal bowel sounds. Absent: distended, tenderness, guarding, rebound, rigid Extremities exam: Present: normal inspection, full ROM, normal capillary refill. Absent: tenderness, pedal edema, joint swelling, calf tenderness Back exam: Present: full ROM. Absent: CVA tenderness (R), CVA tenderness (L), paraspinal tenderness, vertebral tenderness Neurological exam: Present: alert, oriented X3 (Patientname, where she is at, the year), CN II-XII intact Psychiatric exam: Present: normal affect, normal mood Skin exam: Present: warm, dry, intact, normal color. Absent: rash - Labs CBC & Chem 7: 10/28/21 05:35 10/28/21 05:35 Labs: Abnormal Lab Results - Last 24 Hours (Table) 10/27/21 10/27/21 10/27/21 Range/Units 10:37 10:37 10:37 WBC 18.9 H (3.8-10.6) k/uL RBC (3.80-5.40) m/uL Hgb 10.9 L (11.4-16.0) gm/dL Hct (34.0-46.0) % MCHC 29.6 L (31.0-37.0) g/dL Neutrophils # 16.7 H (1.3-7.7) k/uL APTT 21.3 L (22.0-30.0) sec VBG pH (7.31-7.41) VBG HCO3 (24-28) mmol/L Sodium 128 L (137-145) mmol/L Potassium 6.2 H* (3.5-5.1) mmol/L Chloride 97 L (98-107) mmol/L Carbon Dioxide 15 L (22-30) mmol/L BUN 71 H (7-17) mg/dL Creatinine 2.86 H (0.52-1.04) mg/dL Glucose 727 H* (74-99) mg/dL POC Glucose (mg/dL) (75-99) mg/dL AST (14-36) U/L Total Protein (6.3-8.2) g/dL Albumin (3.5-5.0) g/dL Urine Protein (Negative) Urine Glucose (UA) (Negative) Urine Ketones (Negative) Urine Blood (Negative) Ur Leukocyte Esterase (Negative) Urine WBC (0-5) /hpf Urine Bacteria (None) /hpf 10/27/21 10/27/21 10/27/21 Range/Units 10:43 10:45 13:21 WBC (3.8-10.6) k/uL RBC (3.80-5.40) m/uL Hgb (11.4-16.0) gm/dL Hct (34.0-46.0) % MCHC (31.0-37.0) g/dL Neutrophils # (1.3-7.7) k/uL APTT (22.0-30.0) sec VBG pH (7.31-7.41) VBG HCO3 (24-28) mmol/L Sodium (137-145) mmol/L Potassium (3.5-5.1) mmol/L Chloride (98-107) mmol/L Carbon Dioxide (22-30) mmol/L BUN (7-17) mg/dL Creatinine (0.52-1.04) mg/dL Glucose (74-99) mg/dL POC Glucose (mg/dL) >600 H >600 H (75-99) mg/dL AST (14-36) U/L Total Protein (6.3-8.2) g/dL Albumin (3.5-5.0) g/dL Urine Protein 1+ H (Negative) Urine Glucose (UA) 4+ H (Negative) Urine Ketones Trace H (Negative) Urine Blood Trace H (Negative) Ur Leukocyte Esterase Large H (Negative) Urine WBC 58 H (0-5) /hpf Urine Bacteria Rare H (None) /hpf 10/27/21 10/27/21 10/27/21 Range/Units 15:06 15:47 16:08 WBC (3.8-10.6) k/uL RBC (3.80-5.40) m/uL Hgb (11.4-16.0) gm/dL Hct (34.0-46.0) % MCHC (31.0-37.0) g/dL Neutrophils # (1.3-7.7) k/uL APTT (22.0-30.0) sec VBG pH (7.31-7.41) VBG HCO3 (24-28) mmol/L Sodium 134 L (137-145) mmol/L Potassium (3.5-5.1) mmol/L Chloride (98-107) mmol/L Carbon Dioxide 17 L (22-30) mmol/L BUN 70 H (7-17) mg/dL Creatinine 2.58 H (0.52-1.04) mg/dL Glucose 262 H (74-99) mg/dL POC Glucose (mg/dL) 455 H 261 H (75-99) mg/dL AST (14-36) U/L Total Protein (6.3-8.2) g/dL Albumin (3.5-5.0) g/dL Urine Protein (Negative) Urine Glucose (UA) (Negative) Urine Ketones (Negative) Urine Blood (Negative) Ur Leukocyte Esterase (Negative) Urine WBC (0-5) /hpf Urine Bacteria (None) /hpf 10/27/21 10/27/21 10/27/21 Range/Units 16:47 18:19 19:01 WBC (3.8-10.6) k/uL RBC (3.80-5.40) m/uL Hgb (11.4-16.0) gm/dL Hct (34.0-46.0) % MCHC (31.0-37.0) g/dL Neutrophils # (1.3-7.7) k/uL APTT (22.0-30.0) sec VBG pH (7.31-7.41) VBG HCO3 (24-28) mmol/L Sodium (137-145) mmol/L Potassium (3.5-5.1) mmol/L Chloride (98-107) mmol/L Carbon Dioxide (22-30) mmol/L BUN (7-17) mg/dL Creatinine (0.52-1.04) mg/dL Glucose (74-99) mg/dL POC Glucose (mg/dL) 205 H 249 H 247 H (75-99) mg/dL AST (14-36) U/L Total Protein (6.3-8.2) g/dL Albumin (3.5-5.0) g/dL Urine Protein (Negative) Urine Glucose (UA) (Negative) Urine Ketones (Negative) Urine Blood (Negative) Ur Leukocyte Esterase (Negative) Urine WBC (0-5) /hpf Urine Bacteria (None) /hpf 10/27/21 10/27/21 10/27/21 Range/Units 20:00 20:08 20:08 WBC (3.8-10.6) k/uL RBC (3.80-5.40) m/uL Hgb (11.4-16.0) gm/dL Hct (34.0-46.0) % MCHC (31.0-37.0) g/dL Neutrophils # (1.3-7.7) k/uL APTT (22.0-30.0) sec VBG pH (7.31-7.41) VBG HCO3 (24-28) mmol/L Sodium 135 L (137-145) mmol/L Potassium (3.5-5.1) mmol/L Chloride (98-107) mmol/L Carbon Dioxide 18 L (22-30) mmol/L BUN 68 H (7-17) mg/dL Creatinine 2.54 H (0.52-1.04) mg/dL Glucose 208 H (74-99) mg/dL POC Glucose (mg/dL) 194 H 194 H (75-99) mg/dL AST (14-36) U/L Total Protein (6.3-8.2) g/dL Albumin (3.5-5.0) g/dL Urine Protein (Negative) Urine Glucose (UA) (Negative) Urine Ketones (Negative) Urine Blood (Negative) Ur Leukocyte Esterase (Negative) Urine WBC (0-5) /hpf Urine Bacteria (None) /hpf 10/27/21 10/27/21 10/28/21 Range/Units 21:51 23:23 00:15 WBC (3.8-10.6) k/uL RBC (3.80-5.40) m/uL Hgb (11.4-16.0) gm/dL Hct (34.0-46.0) % MCHC (31.0-37.0) g/dL Neutrophils # (1.3-7.7) k/uL APTT (22.0-30.0) sec VBG pH (7.31-7.41) VBG HCO3 (24-28) mmol/L Sodium (137-145) mmol/L Potassium (3.5-5.1) mmol/L Chloride (98-107) mmol/L Carbon Dioxide (22-30) mmol/L BUN (7-17) mg/dL Creatinine (0.52-1.04) mg/dL Glucose (74-99) mg/dL POC Glucose (mg/dL) 170 H 150 H 124 H (75-99) mg/dL AST (14-36) U/L Total Protein (6.3-8.2) g/dL Albumin (3.5-5.0) g/dL Urine Protein (Negative) Urine Glucose (UA) (Negative) Urine Ketones (Negative) Urine Blood (Negative) Ur Leukocyte Esterase (Negative) Urine WBC (0-5) /hpf Urine Bacteria (None) /hpf 10/28/21 10/28/21 10/28/21 Range/Units 00:20 01:11 02:37 WBC (3.8-10.6) k/uL RBC (3.80-5.40) m/uL Hgb (11.4-16.0) gm/dL Hct (34.0-46.0) % MCHC (31.0-37.0) g/dL Neutrophils # (1.3-7.7) k/uL APTT (22.0-30.0) sec VBG pH (7.31-7.41) VBG HCO3 (24-28) mmol/L Sodium (137-145) mmol/L Potassium (3.5-5.1) mmol/L Chloride 114 H (98-107) mmol/L Carbon Dioxide 14 L (22-30) mmol/L BUN 70 H (7-17) mg/dL Creatinine 2.62 H (0.52-1.04) mg/dL Glucose 139 H (74-99) mg/dL POC Glucose (mg/dL) 158 H 193 H (75-99) mg/dL AST (14-36) U/L Total Protein (6.3-8.2) g/dL Albumin (3.5-5.0) g/dL Urine Protein (Negative) Urine Glucose (UA) (Negative) Urine Ketones (Negative) Urine Blood (Negative) Ur Leukocyte Esterase (Negative) Urine WBC (0-5) /hpf Urine Bacteria (None) /hpf 10/28/21 10/28/21 10/28/21 Range/Units 03:27 04:16 05:13 WBC (3.8-10.6) k/uL RBC (3.80-5.40) m/uL Hgb (11.4-16.0) gm/dL Hct (34.0-46.0) % MCHC (31.0-37.0) g/dL Neutrophils # (1.3-7.7) k/uL APTT (22.0-30.0) sec VBG pH (7.31-7.41) VBG HCO3 (24-28) mmol/L Sodium (137-145) mmol/L Potassium (3.5-5.1) mmol/L Chloride (98-107) mmol/L Carbon Dioxide (22-30) mmol/L BUN (7-17) mg/dL Creatinine (0.52-1.04) mg/dL Glucose (74-99) mg/dL POC Glucose (mg/dL) 218 H 229 H 290 H (75-99) mg/dL AST (14-36) U/L Total Protein (6.3-8.2) g/dL Albumin (3.5-5.0) g/dL Urine Protein (Negative) Urine Glucose (UA) (Negative) Urine Ketones (Negative) Urine Blood (Negative) Ur Leukocyte Esterase (Negative) Urine WBC (0-5) /hpf Urine Bacteria (None) /hpf 10/28/21 10/28/21 10/28/21 Range/Units 05:35 05:35 05:35 WBC 18.7 H (3.8-10.6) k/uL RBC 3.55 L (3.80-5.40) m/uL Hgb 9.8 L (11.4-16.0) gm/dL Hct 32.8 L (34.0-46.0) % MCHC 29.9 L (31.0-37.0) g/dL Neutrophils # (1.3-7.7) k/uL APTT (22.0-30.0) sec VBG pH 7.27 L (7.31-7.41) VBG HCO3 19 L (24-28) mmol/L Sodium 130 L (137-145) mmol/L Potassium 5.6 H (3.5-5.1) mmol/L Chloride (98-107) mmol/L Carbon Dioxide 19 L (22-30) mmol/L BUN 62 H (7-17) mg/dL Creatinine 2.47 H (0.52-1.04) mg/dL Glucose 297 H (74-99) mg/dL POC Glucose (mg/dL) (75-99) mg/dL AST 58 H (14-36) U/L Total Protein 5.8 L (6.3-8.2) g/dL Albumin 2.8 L (3.5-5.0) g/dL Urine Protein (Negative) Urine Glucose (UA) (Negative) Urine Ketones (Negative) Urine Blood (Negative) Ur Leukocyte Esterase (Negative) Urine WBC (0-5) /hpf Urine Bacteria (None) /hpf 10/28/21 10/28/21 10/28/21 Range/Units 06:09 07:04 07:06 WBC (3.8-10.6) k/uL RBC (3.80-5.40) m/uL Hgb (11.4-16.0) gm/dL Hct (34.0-46.0) % MCHC (31.0-37.0) g/dL Neutrophils # (1.3-7.7) k/uL APTT (22.0-30.0) sec VBG pH (7.31-7.41) VBG HCO3 (24-28) mmol/L Sodium (137-145) mmol/L Potassium (3.5-5.1) mmol/L Chloride (98-107) mmol/L Carbon Dioxide (22-30) mmol/L BUN (7-17) mg/dL Creatinine (0.52-1.04) mg/dL Glucose (74-99) mg/dL POC Glucose (mg/dL) 288 H 341 H 316 H (75-99) mg/dL AST (14-36) U/L Total Protein (6.3-8.2) g/dL Albumin (3.5-5.0) g/dL Urine Protein (Negative) Urine Glucose (UA) (Negative) Urine Ketones (Negative) Urine Blood (Negative) Ur Leukocyte Esterase (Negative) Urine WBC (0-5) /hpf Urine Bacteria (None) /hpf 10/28/21 Range/Units 08:03 WBC (3.8-10.6) k/uL RBC (3.80-5.40) m/uL Hgb (11.4-16.0) gm/dL Hct (34.0-46.0) % MCHC (31.0-37.0) g/dL Neutrophils # (1.3-7.7) k/uL APTT (22.0-30.0) sec VBG pH (7.31-7.41) VBG HCO3 (24-28) mmol/L Sodium (137-145) mmol/L Potassium (3.5-5.1) mmol/L Chloride (98-107) mmol/L Carbon Dioxide (22-30) mmol/L BUN (7-17) mg/dL Creatinine (0.52-1.04) mg/dL Glucose (74-99) mg/dL POC Glucose (mg/dL) 355 H (75-99) mg/dL AST (14-36) U/L Total Protein (6.3-8.2) g/dL Albumin (3.5-5.0) g/dL Urine Protein (Negative) Urine Glucose (UA) (Negative) Urine Ketones (Negative) Urine Blood (Negative) Ur Leukocyte Esterase (Negative) Urine WBC (0-5) /hpf Urine Bacteria (None) /hpf Microbiology - Last 24 Hours (Table) 10/27/21 10:43 Urine Culture - Preliminary Urine,Clean Catch Assessment and Plan Plan: DKA with anion gap metabolic acidosis, probably induced by an underlying recurrent UTI. The patient presented emergency department with dehydration, and anion gap metabolic acidosis with a gap of 16 and positive serum ketones the patient is recovered and anion gap is closed and is down to 7 and a serum bicarb is up to 19. The patient is going to be transitioned to long acting insulin. Pseudohyponatremia secondary to above, improving Acute hyperkalemia secondary to above, improving Acute kidney injury , secondary to above. The patient's baseline creatinine from earlier this year was around 1.7 the patient has chronic stage III kidney disease Recurrent UTIs with previous cultures indicating E. coli, awaiting final cultures and the patient is currently on IV Rocephin History of renal transplant back in 2016 and the patient has been maintained on a combination of Prograf and CellCept and low-dose prednisone Diabetes mellitus, maintain on Lantus insulin 35 units along with lispro Previous history of coronary thin infection Diabetic peripheral neuropathy History of end-stage renal disease with previous hemodialysis and peritoneal dialysis and the patient is status post kidney chest mentation IBS Colonic polyps Chronic back pain secondary to spondylosis and spinal stenosis History of diabetic retinopathy and previous retinal bleeds and previous history of left eye retinal detachment Plan Agree with Lantus insulin Provide diet carb consistent Check a hemoglobin A1c to evaluate her blood sugar control and with nc NovoLog size. Coverage Continue IV Rocephin Urine cultures Blood cultures Monitor renal function as the patient has a component of acute on top of chronic kidney disease Keep nothing by mouth for now The stress dose hydrocortisone and put the patient prednisone 5 mg and stop the CellCept for now we'll continue with the Prograf May need to restart immunosuppressive agents within next 24 hours Nephrology consultation regarding we'll transplant We'll continue to follow Transfer med surg, remote tele
--- NOTE | 2021-10-28 09:56 | P.NPCON ---
History of Present Illness - Reason for Consult acute renal failure, chronic renal failure - History of Present Illness Reason for consultation: Acute kidney injury and renal transplant management History of present illness: Patient is a 70-year-old female seen in renal consultation for acute kidney injury on chronic kidney disease and renal transplant management. Patient received donor renal allograft in 2015 at [facility] due to underlying diabetic kidney disease. Patient's baseline creatinine is in the range of 1.5-2. Creatinine was 2.86 on admission and is 2.47 today. Patient states she felt weak and wasn't eating and drinking much. She also wasn't taking her medications as prescribed. Patient had blood work an outpatient and was noted to be hyperkalemic, hyperglycemic an acute renal failure. She was subsequently sent to the hospital. Patient was noted to be in DKA and is maintained on insulin drip as well as IV fluids. Potassium and IV fluids has been discontinued as potassium was 5.6 this morning. She has been voiding. No hematuria. She is on antibiotics for UTI. 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 She is maintained on 5 mg of prednisone, myfortic 360 mg twice a day and Prograf 6 mg in the morning and 5 mg in the evening at home. Diet will be initiated this afternoon. Patient has been having episodes of UTI and has been taking antibiotics outpatient. Urine culture from this admission is negative so far. I don't see any NSAIDs and her home medication list. Vital signs are stable. General: Awake. No acute distress. HEENT: Head exam is unremarkable. LUNGS: Breath sounds decreased. HEART: Rate and Rhythm are regular. ABDOMEN: Soft, no distention. EXTREMITITES: No edema. Past Medical History Past Medical History: No Reported History, Asthma, Diabetes Mellitus, Dialysis, Eye Disorder, Hyperlipidemia, Hypertension, Renal Disease, Skin Disorder Additional Past Medical History / Comment(s): history of covid, IDDM type II, neuropathy bilateral legs/feet, ESRD with past peritoneal/hemodialysis then in 2016 had renal transplant, UTI with sepsis, IBS, benign colon polyps, chronic low back pain, migraines, R eye retinal bleed with injections, L eye detached retina with surgery, anemia, History of Any Multi-Drug Resistant Organisms: ESBL Date of last positivie culture/infection: 2011 approx(PREVIOUSLY CHARTED) MDRO Source:: peritoneal dialysis cath Past Surgical History: Cholecystectomy, Hysterectomy, Orthopedic Surgery Additional Past Surgical History / Comment(s): Peritoneal dialysis cath since removed, hemodialysis cath since removed, 2016 renal transplant, EGD, colonoscopies/benign polypectomy, bilateral eye cataract removals, L eye detached retinal surgery, L knee arthroscopy Past Anesthesia/Blood Transfusion Reactions: No Reported Reaction Additional Past Anesthesia/Blood Transfusion Reaction / Comment(s): has had a hard time coming out of anesthesia Past Psychological History: No Psychological Hx Reported Additional Psychological History / Comment(s): 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 She is independent. Smoking Status: Former smoker Past Alcohol Use History: None Reported Additional Past Alcohol Use History / Comment(s): Pt started smoking 1979,quit smoking 1989, smoked 3 packs per week. Past Drug Use History: None Reported - Past Family History Mother History Unknown: Yes Additional Family Medical History / Comment(s): Mother of poisoning when pt was 11 yrs old. Father Family Medical History: Vascular Disorder Additional Family Medical History / Comment(s): brain aneurysm Medications and Allergies Home Medications Medication Instructions Recorded Confirmed Type Tacrolimus [Prograf] 6 mg PO DAILY 07/26/16 10/27/21 History Albuterol Nebulized [Ventolin 2.5 mg INHALATION RT-Q4H PRN 08/11/16 10/27/21 History Nebulized] Atorvastatin Calcium [Lipitor] 10 mg PO HS 08/11/16 10/27/21 History Sodium Bicarbonate Tab 1,300 mg PO TID 08/11/16 10/27/21 History amLODIPine [Norvasc] 10 mg PO DAILY 08/11/16 10/27/21 History predniSONE 5 mg PO DAILY 08/25/17 10/27/21 History Tacrolimus [Prograf] 5 mg PO HS 06/01/18 10/27/21 History Insulin Glargine,Hum.rec.anlog 35 unit SQ HS 04/18/20 10/27/21 History [Lantus Solostar Pen] Losartan Potassium 100 mg PO DAILY 04/18/20 10/27/21 History Insulin Lispro [humaLOG Kwikpen] See Protocol SQ AC-TID 04/25/20 10/27/21 History Mycophenolate Sodium [Mycophenolic 360 mg PO BID 04/25/20 10/27/21 History Acid] Carvedilol [Coreg] 25 mg PO BID 10/27/21 10/27/21 History Ciprofloxacin HCl [Cipro] 500 mg PO DAILY 10/27/21 10/27/21 History Ergocalciferol [Vitamin D2 (1250 1,250 mcg PO PARRISH 10/27/21 10/27/21 History Mcg = 68482 Iu)] Famotidine 40 mg PO DAILY 10/27/21 10/27/21 History Furosemide [Lasix] 40 mg PO DAILY PRN 10/27/21 10/27/21 History Lidocaine 5% Patch [Lidoderm] 1 patch TRANSDERM DAILY PRN 10/27/21 10/27/21 History Loperamide HCl [Imodium A-D] 2 mg PO TID PRN 10/27/21 10/27/21 History cycloSPORINE 0.05% OPHTH SOLN 1 drop BOTH EYES BID 10/27/21 10/27/21 History [Restasis] hydrALAZINE HCL [Apresoline] 75 mg PO TID 10/27/21 10/27/21 History Allergies Allergy/AdvReac Type Severity Reaction Status Date / Time hydralazine [From Apresoline] Allergy Rash/Hives Verified 10/27/21 10:00 Iodinated Contrast Media Allergy Unknown Verified 10/27/21 10:00 [Iodinated Contrast- Oral and IV Dye] meperidine [From Demerol] Allergy Anaphylaxis Verified 10/27/21 10:00 Physical Exam Vitals: Vital Signs Temp Pulse Pulse Resp BP BP BP 10/28/21 07:19 72 15 151/67 10/28/21 06:00 73 5 L 131/56 10/28/21 05:00 75 20 123/51 10/28/21 04:00 98.2 F 73 72 18 163/80 163/80 10/28/21 03:00 70 72 20 134/97 137/67 10/28/21 01:00 98.6 F 85 27 H 101/56 10/27/21 22:00 98 28 H 147/80 10/27/21 21:00 177/73 10/27/21 20:00 99 F 113/73 10/27/21 19:18 153/74 10/27/21 18:59 97.7 F 97 16 146/106 10/27/21 18:31 98.6 F 92 18 150/75 05/24/22 16:00 91 18 106/80 10/27/21 14:00 90 16 116/61 10/27/21 12:00 88 18 138/64 10/27/21 11:36 92 18 162/86 10/27/21 10:30 18 Pulse Ox 10/28/21 07:19 97 10/28/21 06:00 96 10/28/21 05:00 95 10/28/21 04:00 96 10/28/21 03:00 94 L 10/28/21 01:00 96 10/27/21 22:00 100 10/27/21 21:00 10/27/21 20:00 10/27/21 19:18 10/27/21 18:59 99 10/27/21 18:31 98 10/27/21 16:00 17 L 10/27/21 14:00 98 10/27/21 12:00 98 10/27/21 11:36 97 10/27/21 10:30 Intake and Output 10/27/21 10/28/21 10/28/21 22:59 06:59 14:59 Intake Total 423.924 5177.547 302.801 Output Total 200 100 125 Balance 302.042 4237.547 177.801 Intake: Intake, IV Titration 876.795 0174.547 302.801 Amount D5-0.45% NaCl with KCl 300 1200 150 20Meq/l 1,000 ml @ 150 mls/hr IV .[id number] [facility] Rx# :[id number] Insulin Regular 100 unit 22.035 22.547 2.801 In Sodium Chloride 0.9% 100 ml @ 0.1 UNITS/KG/HR 8.475 mls/hr IV .[id number] [facility] Rx#:[id number] Sodium Chloride 0.9% 1, 75 150 000 ml @ 200 mls/hr IV . Q5H [facility] Rx#:[id number] Output: Urine 200 100 125 Other: Voiding Method External Catheter External Catheter External Catheter # Voids 1 1 Weight 83.915 kg 87.5 kg Results - Lab Results Most recent lab results Calcium 9.0 mg/dL (8.4-10.2) 10/28/21 05:35 Phosphorus 3.2 mg/dL (2.5-4.5) 10/28/21 05:35 Magnesium 1.7 mg/dL (1.6-2.3) 10/28/21 05:35 10/28/21 05:35 10/28/21 05:35 Assessment and Plan Plan: Assessment: 1. Acute allograft dysfunction mostly prerenal secondary to hypovolemia from DKA. Creatinine was 2.86 on admission and is 2.47 today. 2. Status post donor renal allograft in 2015 at [facility] due to underlying diabetic kidney disease. 3. Chronic kidney disease stage IIIB with baseline creatinine in the range of 1.5-2 secondary to long-term calcineurin inhibitor use and solitary kidney as w ell as episodes of rejection. 4. DKA maintained on insulin drip and fluids. 5. Hypertonic hyponatremia secondary to hyperglycemia. 6. Metabolic acidosis secondary to acute kidney injury and DKA. 7. Hyperkalemia secondary to acute kidney injury, metabolic acidosis and hyperglycemia. Prograf can also induce hyperkalemia. 8. Hypertension with chronic kidney disease. Stable. 9. 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 Plan: Maintain normal saline. Diet to be initiated this afternoon. Repeat potassium level this afternoon. Follow-up Prograf level. Maintain prednisone and Prograf. Myfortic held due to UTI. Continue to monitor renal function and urine output. Thank you for the consultation. I will continue to follow the patient with you during her hospital stay.
[2021-10-28 11:18] LABS: Glucose,Whole Blood 220 mg/dL (75-99)
[2021-10-28] MEDS: INSULIN ASPART (NovoLOG) 100 UNIT/ML VIAL SQ SCH ×5 (11:31→21:13)
[2021-10-28] MEDS ORDERED: INSULIN ASPART (NovoLOG) 100 UNIT/ML VIAL SQ SCH (12:30)
[2021-10-28 12:52] LABS: Calcium 9.6 mg/dL (8.4-10.2); Potassium 5.9 mmol/L (3.5-5.1)
--- NOTE | 2021-10-28 14:25 | P.PN ---
Subjective Progress Note Date: 10/28/21 (delayed charting seen at 1100) Principal diagnosis: weakness Patient is a 70-year-old female with history of kidney transplant in 2017 maintained on CellCept and Prograf, diabetes type 2 on insulin, asthma, hypertension, and dyslipidemia who initially presented to the emergency department due to weakness, confusion, and hyperglycemia. Patient had been having issues with urinary tract infection and laboratory abnormalities for the last 2 weeks. She was taking Cipro 500 mg outpatient. On arrival to the ER her vital signs were within normal limits. Laboratory analysis showed white blood cell count of 18.9, sodium 128, potassium 6.2, carbon dioxide 15, anion gap 16, BUN 71, creatinine 2.86, glucose 727, urinalysis was positive for ketones and acetone. In the ER she was started on IV fluids, ceftriaxone, and insulin drip. She was also giving temporizing potassium managers as well as Kayexalate. Her anion gap was closed and sugars were improved. Patient seen and examined at bedside. WE had a long discussion with her grandson present at bedside. She has cynthia had DKA in her 20+ years as a diabetic, she followswith endocrinology and her last A1C was arround 7. She has struggled with her sugars as she required high-dose steroids for her transplant rejection recently. General: non toxic, no distress, appears at stated age Derm: warm, dry Head: atraumatic, normocephalic, symmetric Eyes: EOMI, no lid lag, anicteric sclera Mouth: no lip lesion, mucus membranes dry Cardiovascular: S1S2 reg, no murmur, positive posterior tibial pulse bilateral, Lungs: CTA bilateral, no rhonchi, no rales , no accessory muscle use Abdominal: soft, nontender to palpation, no guarding, no appreciable organomegaly Ext: no gross muscle atrophy, no edema, no contractures Neuro: CN II-XI grossly intact, no focal neuro deficits Psych: Alert, oriented, appropriate affect Assessment/plan: UTI, POA, not cath associated - rocephin - await urine culture Hyponatremia, pseudo, improving Hyperkalemia Acute kidney injury on chronic kidney disease stage III in the setting of renal transplant with recent T-ce;; medicated rejection in September 2021 s/p steroids and IVIG. Immunocompromised do to transplant -Critical care recs -Hold diuretics and JUSTIN inhibitor for toxic agents -IV fluids - nephrology recs -Continue with bicarb Diabetes mellitus type 2 with neuropathy DKA, resolved - Long acting BID, SSI and fixed dose - follow BS -Hemoglobin A1c 12 Hypertension -Continue with Norvasc, hydralazine, Coreg -Follow blood pressures Anemia, stable and chronic - follow CBC - no indication for transfusion at this point. Chronic: Asthma Chronic back pain Irritable bowel syndrome DVT prophylaxis: Heparin Discussed with: patient nursing, family present at bedside Anticipated discharge date: in 2-[address]: home A total of 35 minutes was spent on the care of this complex patient more than 50% of the time was spent in counseling and care coordination. Objective - Vital Signs Vital signs: Vital Signs Temp 97.9 F 10/28/21 12:00 Pulse 76 10/28/21 14:00 Resp 18 10/28/21 14:00 BP 114/54 10/28/21 14:00 Pulse Ox 96 10/28/21 14:00 FiO2 Intake & Output 10/27/21 10/28/21 10/28/21 18:59 06:59 18:59 Intake Total 22.035 1597.547 527.801 Output Total 300 325 Balance 22.035 1297.547 202.801 Weight 83.915 kg 87.5 kg Intake: Intake, IV Titration 22.035 1597.547 527.801 Amount D5-0.45% NaCl with KCl 1500 150 20Meq/l 1,000 ml @ 150 mls/hr IV .Q6H40M [facility] Rx# :[id number] Insulin Regular 100 unit 22.035 22.547 2.801 In Sodium Chloride 0.9% 100 ml @ 0.1 UNITS/KG/HR 8.475 mls/hr IV .[id number] [facility] Rx#:[id number] Sodium Chloride 0.9% 1, 75 225 000 ml @ 200 mls/hr IV . Q5H [facility] Rx#:[id number] Sodium Chloride 0.9% 1, 150 000 ml @ 75 mls/hr IV . [id number] [facility] Rx#:[id number] Output: Urine 300 325 Other: Voiding Method External Catheter External Catheter # Voids 1 # Bowel Movements 1 - Labs CBC & Chem 7: 10/28/21 05:35 10/28/21 12:29 Labs: Abnormal Lab Results - Last 24 Hours (Table) 05/24/22 05/24/22 05/24/22 Range/Units 15:06 15:47 16:08 WBC (3.8-10.6) k/uL RBC (3.80-5.40) m/uL Hgb (11.4-16.0) gm/dL Hct (34.0-46.0) % MCHC (31.0-37.0) g/dL VBG pH (7.31-7.41) VBG HCO3 (24-28) mmol/L Sodium 134 L (137-145) mmol/L Potassium (3.5-5.1) mmol/L Chloride (98-107) mmol/L Carbon Dioxide 17 L (22-30) mmol/L BUN 70 H (7-17) mg/dL Creatinine 2.58 H (0.52-1.04) mg/dL Glucose 262 H (74-99) mg/dL POC Glucose (mg/dL) 455 H 261 H (75-99) mg/dL Hemoglobin A1c (0.0-6.0) % AST (14-36) U/L Total Protein (6.3-8.2) g/dL Albumin (3.5-5.0) g/dL 10/27/21 10/27/21 10/27/21 Range/Units 16:47 18:19 19:01 WBC (3.8-10.6) k/uL RBC (3.80-5.40) m/uL Hgb (11.4-16.0) gm/dL Hct (34.0-46.0) % MCHC (31.0-37.0) g/dL VBG pH (7.31-7.41) VBG HCO3 (24-28) mmol/L Sodium (137-145) mmol/L Potassium (3.5-5.1) mmol/L Chloride (98-107) mmol/L Carbon Dioxide (22-30) mmol/L BUN (7-17) mg/dL Creatinine (0.52-1.04) mg/dL Glucose (74-99) mg/dL POC Glucose (mg/dL) 205 H 249 H 247 H (75-99) mg/dL Hemoglobin A1c (0.0-6.0) % AST (14-36) U/L Total Protein (6.3-8.2) g/dL Albumin (3.5-5.0) g/dL 10/27/21 10/27/21 10/27/21 Range/Units 20:00 20:08 20:08 WBC (3.8-10.6) k/uL RBC (3.80-5.40) m/uL Hgb (11.4-16.0) gm/dL Hct (34.0-46.0) % MCHC (31.0-37.0) g/dL VBG pH (7.31-7.41) VBG HCO3 (24-28) mmol/L Sodium 135 L (137-145) mmol/L Potassium (3.5-5.1) mmol/L Chloride (98-107) mmol/L Carbon Dioxide 18 L (22-30) mmol/L BUN 68 H (7-17) mg/dL Creatinine 2.54 H (0.52-1.04) mg/dL Glucose 208 H (74-99) mg/dL POC Glucose (mg/dL) 194 H 194 H (75-99) mg/dL Hemoglobin A1c (0.0-6.0) % AST (14-36) U/L Total Protein (6.3-8.2) g/dL Albumin (3.5-5.0) g/dL 10/27/21 10/27/21 10/28/21 Range/Units 21:51 23:23 00:15 WBC (3.8-10.6) k/uL RBC (3.80-5.40) m/uL Hgb (11.4-16.0) gm/dL Hct (34.0-46.0) % MCHC (31.0-37.0) g/dL VBG pH (7.31-7.41) VBG HCO3 (24-28) mmol/L Sodium (137-145) mmol/L Potassium (3.5-5.1) mmol/L Chloride (98-107) mmol/L Carbon Dioxide (22-30) mmol/L BUN (7-17) mg/dL Creatinine (0.52-1.04) mg/dL Glucose (74-99) mg/dL POC Glucose (mg/dL) 170 H 150 H 124 H (75-99) mg/dL Hemoglobin A1c (0.0-6.0) % AST (14-36) U/L Total Protein (6.3-8.2) g/dL Albumin (3.5-5.0) g/dL 10/28/21 10/28/21 10/28/21 Range/Units 00:20 01:11 02:37 WBC (3.8-10.6) k/uL RBC (3.80-5.40) m/uL Hgb (11.4-16.0) gm/dL Hct (34.0-46.0) % MCHC (31.0-37.0) g/dL VBG pH (7.31-7.41) VBG HCO3 (24-28) mmol/L Sodium (137-145) mmol/L Potassium (3.5-5.1) mmol/L Chloride 114 H (98-107) mmol/L Carbon Dioxide 14 L (22-30) mmol/L BUN 70 H (7-17) mg/dL Creatinine 2.62 H (0.52-1.04) mg/dL Glucose 139 H (74-99) mg/dL POC Glucose (mg/dL) 158 H 193 H (75-99) mg/dL Hemoglobin A1c (0.0-6.0) % AST (14-36) U/L Total Protein (6.3-8.2) g/dL Albumin (3.5-5.0) g/dL 10/28/21 10/28/21 10/28/21 Range/Units 03:27 04:16 05:13 WBC (3.8-10.6) k/uL RBC (3.80-5.40) m/uL Hgb (11.4-16.0) gm/dL Hct (34.0-46.0) % MCHC (31.0-37.0) g/dL VBG pH (7.31-7.41) VBG HCO3 (24-28) mmol/L Sodium (137-145) mmol/L Potassium (3.5-5.1) mmol/L Chloride (98-107) mmol/L Carbon Dioxide (22-30) mmol/L BUN (7-17) mg/dL Creatinine (0.52-1.04) mg/dL Glucose (74-99) mg/dL POC Glucose (mg/dL) 218 H 229 H 290 H (75-99) mg/dL Hemoglobin A1c (0.0-6.0) % AST (14-36) U/L Total Protein (6.3-8.2) g/dL Albumin (3.5-5.0) g/dL 10/28/21 10/28/21 10/28/21 Range/Units 05:35 05:35 05:35 WBC 18.7 H (3.8-10.6) k/uL RBC 3.55 L (3.80-5.40) m/uL Hgb 9.8 L (11.4-16.0) gm/dL Hct 32.8 L (34.0-46.0) % MCHC 29.9 L (31.0-37.0) g/dL VBG pH 7.27 L (7.31-7.41) VBG HCO3 19 L (24-28) mmol/L Sodium (137-145) mmol/L Potassium (3.5-5.1) mmol/L Chloride (98-107) mmol/L Carbon Dioxide (22-30) mmol/L BUN (7-17) mg/dL Creatinine (0.52-1.04) mg/dL Glucose (74-99) mg/dL POC Glucose (mg/dL) (75-99) mg/dL Hemoglobin A1c 12.0 H (0.0-6.0) % AST (14-36) U/L Total Protein (6.3-8.2) g/dL Albumin (3.5-5.0) g/dL 10/28/21 10/28/21 10/28/21 Range/Units 05:35 06:09 07:04 WBC (3.8-10.6) k/uL RBC (3.80-5.40) m/uL Hgb (11.4-16.0) gm/dL Hct (34.0-46.0) % MCHC (31.0-37.0) g/dL VBG pH (7.31-7.41) VBG HCO3 (24-28) mmol/L Sodium 130 L (137-145) mmol/L Potassium 5.6 H (3.5-5.1) mmol/L Chloride (98-107) mmol/L Carbon Dioxide 19 L (22-30) mmol/L BUN 62 H (7-17) mg/dL Creatinine 2.47 H (0.52-1.04) mg/dL Glucose 297 H (74-99) mg/dL POC Glucose (mg/dL) 288 H 341 H (75-99) mg/dL Hemoglobin A1c (0.0-6.0) % AST 58 H (14-36) U/L Total Protein 5.8 L (6.3-8.2) g/dL Albumin 2.8 L (3.5-5.0) g/dL 10/28/21 10/28/21 10/28/21 Range/Units 07:06 08:03 11:14 WBC (3.8-10.6) k/uL RBC (3.80-5.40) m/uL Hgb (11.4-16.0) gm/dL Hct (34.0-46.0) % MCHC (31.0-37.0) g/dL VBG pH (7.31-7.41) VBG HCO3 (24-28) mmol/L Sodium (137-145) mmol/L Potassium (3.5-5.1) mmol/L Chloride (98-107) mmol/L Carbon Dioxide (22-30) mmol/L BUN (7-17) mg/dL Creatinine (0.52-1.04) mg/dL Glucose (74-99) mg/dL POC Glucose (mg/dL) 316 H 355 H 220 H (75-99) mg/dL Hemoglobin A1c (0.0-6.0) % AST (14-36) U/L Total Protein (6.3-8.2) g/dL Albumin (3.5-5.0) g/dL 10/28/21 Range/Units 12:29 WBC (3.8-10.6) k/uL RBC (3.80-5.40) m/uL Hgb (11.4-16.0) gm/dL Hct (34.0-46.0) % MCHC (31.0-37.0) g/dL VBG pH (7.31-7.41) VBG HCO3 (24-28) mmol/L Sodium 135 L (137-145) mmol/L Potassium 5.9 H (3.5-5.1) mmol/L Chloride 110 H (98-107) mmol/L Carbon Dioxide 14 L (22-30) mmol/L BUN 62 H (7-17) mg/dL Creatinine 2.46 H (0.52-1.04) mg/dL Glucose 188 H (74-99) mg/dL POC Glucose (mg/dL) (75-99) mg/dL Hemoglobin A1c (0.0-6.0) % AST (14-36) U/L Total Protein (6.3-8.2) g/dL Albumin (3.5-5.0) g/dL Microbiology - Last 24 Hours (Table) 10/27/21 10:45 Blood Culture - Preliminary Blood No Growth after 24 hours 10/27/21 10:30 Blood Culture - Preliminary Blood No Growth after 24 hours 10/27/21 10:43 Urine Culture - Preliminary Urine,Clean Catch
[2021-10-28 15:48] LABS: Potassium 5.7 mmol/L (3.5-5.1)
[2021-10-28 17:17] LABS: Glucose,Whole Blood 181 mg/dL (75-99)
[2021-10-28] MEDS ORDERED: SODIUM BICARB 8.4% 50 ML SYR (1 MEQ/ML) IV STA (18:00)
[2021-10-28 20:54] LABS: Glucose,Whole Blood 169 mg/dL (75-99)
[2021-10-28] MEDS ORDERED: INSULIN DETEMIR (LEVEMIR) 100 UNIT/ML SYR SQ SCH (21:00)
[2021-10-28] MEDS: ATORVASTATIN 10 MG TAB PO SCH (21:11)
[2021-10-29] MEDS: HEPARIN SODIUM,PORCINE/PF 5,000 UNIT/0.5 ML SYRINGE SQ SCH ×4 (01:09→23:45)
[2021-10-29] MEDS: SODIUM CHLORIDE 0.9% 1,000 ML IV SCH ×2 (01:22→09:36)
[2021-10-29 02:09] LABS: Glucose,Whole Blood 80 mg/dL (75-99)
[2021-10-29 07:16] LABS: Glucose,Whole Blood 78 mg/dL (75-99)
[2021-10-29] MEDS: INSULIN ASPART (NovoLOG) 100 UNIT/ML VIAL SQ SCH ×5 (07:40→21:01)
[2021-10-29] MEDS: carvediloL 12.5 MG TAB PO SCH ×2 (09:07→16:44)
[2021-10-29] MEDS: INSULIN DETEMIR (LEVEMIR) 100 UNIT/ML SYR SQ SCH (09:09)
[2021-10-29] MEDS: SODIUM BICARBONATE TAB 650 MG TAB PO SCH ×3 (09:10→21:01)
[2021-10-29] MEDS: amLODIPine 10 MG TAB PO SCH (09:11)
[2021-10-29] MEDS: FAMOTIDINE 20 MG TAB PO SCH (09:11)
[2021-10-29] MEDS: cycloSPORINE 0.05% OPHTH 0.4 ML DROPERETTE BOTH EYES SCH ×2 (09:12→21:01)
[2021-10-29] MEDS: TACROLIMUS 1 MG CAP PO SCH ×2 (09:13→21:01)
[2021-10-29] MEDS: predniSONE 5 MG TAB PO SCH (09:13)
[2021-10-29 09:14] LABS: HCT 34.6 % (34.0-46.0); HGB 10.2 gm/dL (11.4-16.0); Hypochromasia Marked; MCH 27.4 pg (25.0-35.0); MCHC 29.4 g/dL (31.0-37.0); Mean Platelet Volume 8.7; Platelet Count 335 k/uL (150-450); RBC 3.72 m/uL (3.80-5.40); RDW 14.2 % (11.5-15.5); WBC 15.2 k/uL (3.8-10.6)
[2021-10-29] MEDS: hydrALAZINE HCL 25 MG TAB PO SCH ×3 (09:26→21:02)
[2021-10-29 09:38] LABS: African American GFR (CKD) 19 (>60 ml/min/1.73 sqM); Anion Gap 10 mmol/L; Blood Urea Nitrogen 62 mg/dL (7-17); Calcium 9.2 mg/dL (8.4-10.2); Carbon Dioxide 22 mmol/L (22-30); Chloride 105 mmol/L (98-107); Glucose 91 mg/dL (74-99); Magnesium 1.6 mg/dL (1.6-2.3); Non-African American GFR(CKD) 17 (>60 ml/min/1.73 sqM); Phosphorus 3.6 mg/dL (2.5-4.5); Potassium 4.2 mmol/L (3.5-5.1); Sodium 137 mmol/L (137-145)
[2021-10-29 10:55] LABS: Glucose,Whole Blood 106 mg/dL (75-99)
--- NOTE | 2021-10-29 14:41 | P.PN ---
Subjective Progress Note Date: 10/29/21 This is a 70-year-old female patient, known history of kidney transplant back in 2017, maintain a suppressive agents with a combination of Prograf 5 mg at bedtime and CellCept 360 mg by mouth twice a day, who is also diabetic maintained on Lantus insulin 35 units at bedtime along with lispro insulin, presented emergency department because of generalized weakness, confusion and hyperglycemia. The patient has been having issues with UTI and abnormal labs. Apparently she was receiving treatment for UTI on outpatient basis and the patient was taking Cipro 500 mg on a daily basis. The patient was brought into the emergency department. The patient was quite dehydrated. She was trying to keep up with her fluid intake and she hasn't been eating a lot and she has been eating less than usual. She was also getting episodically confused. She denied having any fever. The patient had no chest pain. No shortness of breath. No nausea vomiting or emesis. No lightheadedness. No dizziness pain no focal neurological deficit. Appetite has been poor. The patient was found to have hyperglycemia with a sugar of 727. The sodium was at 128 with a potassium level of 6.2 with a BUN of 71 and a creatinine of 2.8. Serum bicarb was 15 and the patient a positive anion gap. The same time, the patient underwent second of 18.0 with a hemoglobin of 10.9 and platelet count of 382. LFTs were normal. Calcium level was at 9.9. The patient had a UA that showed 58 WBCs and the cultures still pending for now. The blood was positive for acetone. The anion gap was at 16. The patient was started on insulin drip for blood sugar control and the patient was started on a fluid resuscitation. The patient will be admitted to the intensive care unit for now. The patient already received a total of 2 L of IV fluids and currently the patient is on normal saline today to 35 mL an hour. The patient was also given a dose of sodium bicarbonate burst department and the patient was given Kayexalate 15 g by mouth 1. The patient was given a dose of IV Rocephin in the emergency department. Computed tomogr aphy scan of the brain shows no acute intracranial abnormalities. Questionable tiny lacunar infarct in the caudate nuclei. Chest x-ray showing chronic changes and DISH changes involving the mid and lower thoracic spine. On today's evaluation of 10/28/2021, the patient is feeling better. Blood morgan gars under better control. Overnight, the patient stayed on an insulin drip and anion gap has closed. The gap is currently down to 7 and the serum bicarb is up to 19. Sugar from today is 355 this morning. The patient was taken off the insulin and the patient is going to be switched to long-acting Lantus along with NovoLog with meals and size compared coverage. We will going to monitor blood s ugars. She is on IV Rocephin. She is suspected to have a gram-negative UTI. Culture is still pending for now. The patient was restarted back on immunosuppressive agents would include a Prograf and CellCept is still on hold.. Repeat creatinine today is at 2.47 with a BUN of 62. The patient IV fluids are currently in the form of 0.9 at the rate of 75 mL an hour. Urine output is in order of 50-60 mL an hour. No nausea. No emesis. No abdominal pain. No chest pain. The white cell count today is at 18.7 with a hemoglobin of 9.8 which is essentially comparable to yesterday. Mentation is improved. Oxygenation is stable with a pulse ox of 97% on room air oxygen. Note that this patient has a transplanted kidney. She takes Lantus 35 units on outpatient basis. On 10/29/2021 patient seen in follow-up on medical surgical floor. She was transferred out of intensive care unit yesterday. She is awake and alert, oriented 3, sitting up in the recliner, denies any shortness of breath, she did have an episode of mild nausea, no vomiting, no diarrhea, no abdominal discomfort. Pulse ox is 100%, no fever or chills, urinalysis indicated presence of urinary tract infection, urine culture was sent doing presence of gram- negative ally, final culture is pending. Blood cultures have shown no growth thus far, vital signs have been stable, she is on Rocephin for antibiotic coverage. Tolerating oral intake although she states she doesn't like a lot of the foods that she is receiving entry and she was advised to have the family bring in some food from home. She did have an episode of relative hypoglycemia this morning sugar of 78, and patient's Lantus has been adjusted per primary care physician, and mealtime insulin has been eliminated. The rest of her labs from today show improving white count which is down to 15.2, hemoglobin is 10.2, electrolytes are within normal limits, BUN is 62, creatinine is 2.78. Objective - Vital Signs Vital signs: Vital Signs Temp 98.3 F 10/29/21 07:55 Pulse 75 10/29/21 07:55 Resp 20 10/29/21 07:55 BP 155/68 10/29/21 07:55 Pulse Ox 100 10/29/21 07:55 FiO2 Intake & Output 10/28/21 10/29/21 10/29/21 18:59 06:59 18:59 Intake Total 827.801 Output Total 325 0 Balance 502.801 0 Intake: Intake, IV Titration 827.801 Amount D5-0.45% NaCl with KCl 150 20Meq/l 1,000 ml @ 150 mls/hr IV .[id number] [facility] Rx# :[id number] Insulin Regular 100 unit 2.801 In Sodium Chloride 0.9% 100 ml @ 0.1 UNITS/KG/HR 8.475 mls/hr IV .[id number] [facility] Rx#:[id number] Sodium Chloride 0.9% 1, 225 000 ml @ 200 mls/hr IV . Q5H [facility] Rx#:[id number] Sodium Chloride 0.9% 1, 450 000 ml @ 75 mls/hr IV . [id number] [facility] Rx#:[id number] Output: Urine 325 0 Other: Voiding Method External Catheter External Catheter External Catheter # Voids 0 # Bowel Movements 1 0 - Exam GENERAL EXAM: Alert, pleasant, 70-year-old -Citizen Of The [place] female, sitting up in the recliner, on room air, breathing comfortably comfortable in no apparent distress. HEAD: Normocephalic/atraumatic. EYES: Normal reaction of pupils, equal size. Conjunctiva pink, sclera white. NOSE: Clear with pink turbinates. THROAT: No erythema or exudates. NECK: No masses, no JVD, no thyroid enlargement, no adenopathy. CHEST: No chest wall deformity. Symmetrical expansion. LUNGS: Equal air entry with no crackles, wheeze, rhonchi or dullness. CVS: Regular rate and rhythm, normal S1 and S2, no gallops, no murmurs, no rubs ABDOMEN: Soft, nontender. No hepatosplenomegaly, normal bowel sounds, no guarding or rigidity. EXTREMITIES: No clubbing, no edema, no cyanosis, 2+ pulses and upper and lower extremities. left upper arm AV shunt in place MUSCULOSKELETAL: Muscle strength and tone normal. SPINE: No scoliosis or deformity SKIN: No rashes CENTRAL NERVOUS SYSTEM: Alert and oriented -3. No focal deficits, tone is normal in all 4 extremities. PSYCHIATRIC: Alert and oriented -3. Appropriate affect. Intact judgment and insight. - Labs CBC & Chem 7: 10/29/21 08:28 10/29/21 08:28 Labs: Abnormal Lab Results - Last 24 Hours (Table) 10/28/21 10/28/21 10/28/21 Range/Units 11:14 12:29 15:05 WBC (3.8-10.6) k/uL RBC (3.80-5.40) m/uL Hgb (11.4-16.0) gm/dL MCHC (31.0-37.0) g/dL Sodium 135 L 134 L (137-145) mmol/L Potassium 5.9 H 5.7 H (3.5-5.1) mmol/L Chloride 110 H (98-107) mmol/L Carbon Dioxide 14 L 18 L (22-30) mmol/L BUN 62 H (7-17) mg/dL Creatinine 2.46 H (0.52-1.04) mg/dL Glucose 188 H (74-99) mg/dL POC Glucose (mg/dL) 220 H (75-99) mg/dL 10/28/21 10/28/21 10/28/21 Range/Units 17:15 17:15 20:50 WBC (3.8-10.6) k/uL RBC (3.80-5.40) m/uL Hgb (11.4-16.0) gm/dL MCHC (31.0-37.0) g/dL Sodium (137-145) mmol/L Potassium (3.5-5.1) mmol/L Chloride (98-107) mmol/L Carbon Dioxide (22-30) mmol/L BUN (7-17) mg/dL Creatinine (0.52-1.04) mg/dL Glucose (74-99) mg/dL POC Glucose (mg/dL) 181 H 181 H 169 H (75-99) mg/dL 10/29/21 10/29/21 10/29/21 Range/Units 08:28 08:28 10:53 WBC 15.2 H (3.8-10.6) k/uL RBC 3.72 L (3.80-5.40) m/uL Hgb 10.2 L (11.4-16.0) gm/dL MCHC 29.4 L (31.0-37.0) g/dL Sodium (137-145) mmol/L Potassium (3.5-5.1) mmol/L Chloride (98-107) mmol/L Carbon Dioxide (22-30) mmol/L BUN 62 H (7-17) mg/dL Creatinine 2.78 H (0.52-1.04) mg/dL Glucose (74-99) mg/dL POC Glucose (mg/dL) 106 H (75-99) mg/dL Microbiology - Last 24 Hours (Table) 10/27/21 10:43 Urine Culture - Preliminary Urine,Clean Catch Gram Neg Bacilli 10/27/21 10:45 Blood Culture - Preliminary Blood No Growth after 24 hours 10/27/21 10:30 Blood Culture - Preliminary Blood No Growth after 24 hours Assessment and Plan Plan: Assessment: DKA with anion gap metabolic acidosis, probably induced by an underlying recurrent UTI. The patient presented emergency department with dehydration, and anion gap metabolic acidosis with a gap of 16 and positive serum ketones the patient is recovered and anion gap is closed and is down to 7 and a serum bicarb is up to 19. The patient is going to be transitioned to long acting insulin. Pseudohyponatremia secondary to above, improving Acute hyperkalemia secondary to above, improving Acute kidney injury , secondary to above. The patient's baseline creatinine from earlier this year was around 1.7 the patient has chronic stage III kidney disease Recurrent UTIs with previous cultures indicating E. coli, awaiting final cultures and the patient is currently on IV Rocephin History of renal transplant back in 2017 and the patient has been maintained on a combination of Prograf and CellCept and low-dose prednisone Diabetes mellitus, maintain on Lantus insulin 35 units along with lispro Previous history of coronary thin infection Diabetic peripheral neuropathy History of end-stage renal disease with previous hemodialysis and peritoneal dialysis and the patient is status post kidney chest mentation IBS Colonic polyps Chronic back pain secondary to spondylosis and spinal stenosis History of diabetic retinopathy and previous retinal bleeds and previous history of left eye retinal detachment Plan: Patient is doing well Today's labs have been noted Anion gap has closed, patient has been transitioned to a combination of basal insulin with Lantus and Humalog sliding scale Patient had episode of relative hypoglycemia this morning, which was corrected Insulin adjustment per hospitalist service No nausea or vomiting Remains on antibiotics for evidence of urinary tract infection No pulmonary complaints Continue with maintenance dose of prednisone 5 mg daily Nephrology recommendations Pulmonary/critical care service will sign off and follow on as-needed basis I have personally seen and examined the patient, performed the documentation and the assessment and plan as written. Number of minutes spent on the visit: [10] I have personally seen and examined the patient and reviewed the documentation. I performed a joint evaluation with the nurse practitioner in this evaluation was done more than 10 minutes. I fully agree with the documentation above and the plan of care.. The patient doing well. Blood sugar management per medicine. Pulmonary critical care services will sign off. Renal function is stable with a creatinine of 2.7. The patient was found to have a gram-negative bacteria and the patient remains on IV Rocephin. Patient is back on prednisone and Prograf. CellCept is still on hold. No active pulmonary issues and will sign off the case. Time with Patient: Less than 30
--- NOTE | 2021-10-29 14:42 | P.PN ---
Subjective Patient is seen in follow-up for acute kidney injury on chronic kidney disease and renal transplant management. Off IV fluids as no IV access at this time. Oral intake is fair. Denies vomiting or diarrhea. Has been voiding. Creatinine 2.78 today. Blood sugars controlled. Vital signs are stable. General: No acute distress. HEENT: Head exam is unremarkable. LUNGS: Breath sounds decreased. HEART: Rate and Rhythm are regular. ABDOMEN: Soft, no distention. EXTREMITITES: No edema. Objective - Vital Signs Vital signs: Vital Signs Temp 98.3 F 10/29/21 07:55 Pulse 75 10/29/21 07:55 Resp 20 10/29/21 07:55 BP 155/68 10/29/21 07:55 Pulse Ox 100 10/29/21 07:55 FiO2 Intake & Output 10/28/21 10/29/21 10/29/21 18:59 06:59 18:59 Intake Total 827.801 Output Total 325 0 Balance 502.801 0 Intake: Intake, IV Titration 827.801 Amount D5-0.45% NaCl with KCl 150 20Meq/l 1,000 ml @ 150 mls/hr IV .[id number] [facility] Rx# :[id number] Insulin Regular 100 unit 2.801 In Sodium Chloride 0.9% 100 ml @ 0.1 UNITS/KG/HR 8.475 mls/hr IV .[id number] [facility] Rx#:[id number] Sodium Chloride 0.9% 1, 225 000 ml @ 200 mls/hr IV . Q5H [facility] Rx#:[id number] Sodium Chloride 0.9% 1, 450 000 ml @ 75 mls/hr IV . [id number] [facility] Rx#:[id number] Output: Urine 325 0 Other: Voiding Method External Catheter External Catheter External Catheter # Voids 0 # Bowel Movements 1 0 - Labs CBC & Chem 7: 10/29/21 08:28 10/29/21 08:28 Labs: Abnormal Lab Results - Last 24 Hours (Table) 10/28/21 10/28/21 10/28/21 Range/Units 11:14 12:29 15:05 WBC (3.8-10.6) k/uL RBC (3.80-5.40) m/uL Hgb (11.4-16.0) gm/dL MCHC (31.0-37.0) g/dL Sodium 135 L 134 L (137-145) mmol/L Potassium 5.9 H 5.7 H (3.5-5.1) mmol/L Chloride 110 H (98-107) mmol/L Carbon Dioxide 14 L 18 L (22-30) mmol/L BUN 62 H (7-17) mg/dL Creatinine 2.46 H (0.52-1.04) mg/dL Glucose 188 H (74-99) mg/dL POC Glucose (mg/dL) 220 H (75-99) mg/dL 10/28/21 10/28/21 10/28/21 Range/Units 17:15 17:15 20:50 WBC (3.8-10.6) k/uL RBC (3.80-5.40) m/uL Hgb (11.4-16.0) gm/dL MCHC (31.0-37.0) g/dL Sodium (137-145) mmol/L Potassium (3.5-5.1) mmol/L Chloride (98-107) mmol/L Carbon Dioxide (22-30) mmol/L BUN (7-17) mg/dL Creatinine (0.52-1.04) mg/dL Glucose (74-99) mg/dL POC Glucose (mg/dL) 181 H 181 H 169 H (75-99) mg/dL 10/29/21 10/29/21 10/29/21 Range/Units 08:28 08:28 10:53 WBC 15.2 H (3.8-10.6) k/uL RBC 3.72 L (3.80-5.40) m/uL Hgb 10.2 L (11.4-16.0) gm/dL MCHC 29.4 L (31.0-37.0) g/dL Sodium (137-145) mmol/L Potassium (3.5-5.1) mmol/L Chloride (98-107) mmol/L Carbon Dioxide (22-30) mmol/L BUN 62 H (7-17) mg/dL Creatinine 2.78 H (0.52-1.04) mg/dL Glucose (74-99) mg/dL POC Glucose (mg/dL) 106 H (75-99) mg/dL Microbiology - Last 24 Hours (Table) 10/27/21 10:43 Urine Culture - Preliminary Urine,Clean Catch Gram Neg Bacilli 10/27/21 10:45 Blood Culture - Preliminary Blood No Growth after 24 hours 10/27/21 10:30 Blood Culture - Preliminary Blood No Growth after 24 hours Assessment and Plan Plan: Assessment: 1. Acute allograft dysfunction mostly prerenal secondary to hypovolemia from DKA and UTI. Creatinine was 2.86 on admission - 2.46 yesterday - 2.78 today. 2. Status post donor renal allograft in 2015 at [facility] due to underlying diabetic kidney disease. 3. Chronic kidney disease stage IIIB with baseline creatinine in the range of 1.5-2 secondary to long-term calcineurin inhibitor use and solitary kidney as well as episodes of rejection. 4. DKA s/p insulin drip and fluids. 5. Hypertonic hyponatremia secondary to hyperglycemia. Improved. 6. Metabolic acidosis secondary to acute kidney injury and DKA. Improved. On oral bicarbonate. 7. Hyperkalemia secondary to acute kidney injury, metabolic acidosis and hyperglycemia. Prograf can also induce hyperkalemia. Improved. 8. Hypertension with chronic kidney disease. Stable. 9. 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 10. UTI with urine culture positive for gram-negative bacilli on antibiotics. Plan: Encouraged oral intake. Off IV fluids at this time. Follow-up Prograf level. Maintain prednisone and Prograf. Myfortic held due to UTI. Continue to monitor renal function and urine output.
[2021-10-29 14:56] VITALS: BMI 36.4
--- NOTE | 2021-10-29 15:47 | P.PN ---
Subjective Progress Note Date: 10/29/21 (delayed charting seen at 1030) Principal diagnosis: weakness Patient is a 70-year-old female with history of kidney transplant in 2017 maintained on CellCept and Prograf, diabetes type 2 on insulin, asthma, hypertension, and dyslipidemia who initially presented to the emergency department due to weakness, confusion, and hyperglycemia. Patient had been having issues with urinary tract infection and laboratory abnormalities for the last 2 weeks. She was taking Cipro 500 mg outpatient. On arrival to the ER her vital signs were within normal limits. Laboratory analysis showed white blood cell count of 18.9, sodium 128, potassium 6.2, carbon dioxide 15, anion gap 16, BUN 71, creatinine 2.86, glucose 727, urinalysis was positive for ketones and acetone. In the ER she was started on IV fluids, ceftriaxone, and insulin drip. She was also giving temporizing potassium managers as well as Kayexalate. Her anion gap was closed and sugars were improved. She was transitioned to long and short acting insulin. She was followed by neurology and critical care. Patient seen and examined at bedside. Feeling much better today. No chest pain, SOB, nausea, vomiting, no belly pain today. All questions answered. 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 General: non toxic, no distress, appears at stated age Derm: warm, dry Head: atraumatic, normocephalic, symmetric Eyes: EOMI, no lid lag, anicteric sclera Mouth: no lip lesion, mucus membranes dry Cardiovascular: S1S2 reg, no murmur, positive posterior tibial pulse bilateral, Lungs: Decreased bs bilateral, no rhonchi, no rales , no accessory muscle use Abdominal: soft, nontender to palpation, no guarding, no appreciable organomegaly Ext: no gross muscle atrophy, no edema, no contractures Neuro: CN II-XI grossly intact, no focal neuro deficits Psych: Alert, oriented, appropriate affect Assessment/plan: UTI, POA, not cath associated - rocephin - await urine culture Acute kidney injury on chronic kidney disease stage III in the setting of renal transplant with recent T-cell medicated rejection in September 2021 s/p steroids and IVIG. Immunocompromised do to transplant -Critical care recs -Hold diuretics and JUSTIN inhibitor for toxic agents -IV fluids - nephrology recs -Continue with bicarb Diabetes mellitus type 2 with neuropathy DKA, resolved - Long acting BID (plan to send back home on once daily), SSI and fixed dose - follow BS -Hemoglobin A1c 12 - will follow with her dental manager on discharge. Hypertension -Continue with Norvasc, hydralazine, Coreg -Follow blood pressures Anemia, stable and chronic - follow CBC - no indication for transfusion at this point. Hyponatremia, pseudo,resolved Hyperkalemia, resolved Chronic: Asthma Chronic back pain Irritable bowel syndrome DVT prophylaxis: Heparin Discussed with: patient nursing Anticipated discharge date: in AM Anticipated discharge place: home A total of 35 minutes was spent on the care of this complex patient more than 50% of the time was spent in counseling and care coordination. Objective - Vital Signs Vital signs: Vital Signs Temp 98.3 F 10/29/21 13:47 Pulse 74 10/29/21 13:47 Resp 20 10/29/21 13:47 BP 94/54 10/29/21 13:47 Pulse Ox 100 10/29/21 13:47 FiO2 Intake & Output 10/28/21 10/29/21 10/29/21 18:59 06:59 18:59 Intake Total 827.801 Output Total 325 0 Balance 502.801 0 Weight 87.5 kg Intake: Intake, IV Titration 827.801 Amount D5-0.45% NaCl with KCl 150 20Meq/l 1,000 ml @ 150 mls/hr IV .[id number] [facility] Rx# :[id number] Insulin Regular 100 unit 2.801 In Sodium Chloride 0.9% 100 ml @ 0.1 UNITS/KG/HR 8.475 mls/hr IV .[id number] [facility] Rx#:[id number] Sodium Chloride 0.9% 1, 225 000 ml @ 200 mls/hr IV . Q5H [facility] Rx#:[id number] Sodium Chloride 0.9% 1, 450 000 ml @ 75 mls/hr IV . [id number] [facility] Rx#:[id number] Output: Urine 325 0 Other: Voiding Method External Catheter External Catheter External Catheter # Voids 0 # Bowel Movements 1 0 - Labs CBC & Chem 7: 10/29/21 08:28 10/29/21 08:28 Labs: Abnormal Lab Results - Last 24 Hours (Table) 10/28/21 10/28/21 10/28/21 Range/Units 05:35 15:05 17:15 WBC (3.8-10.6) k/uL RBC (3.80-5.40) m/uL Hgb (11.4-16.0) gm/dL MCHC (31.0-37.0) g/dL Sodium 134 L (137-145) mmol/L Potassium 5.7 H (3.5-5.1) mmol/L Carbon Dioxide 18 L (22-30) mmol/L BUN (7-17) mg/dL Creatinine (0.52-1.04) mg/dL POC Glucose (mg/dL) 181 H (75-99) mg/dL Tacrolimus 3.9 L (5.0-20.0) ng/mL 10/28/21 10/28/21 10/29/21 Range/Units 17:15 20:50 08:28 WBC (3.8-10.6) k/uL RBC (3.80-5.40) m/uL Hgb (11.4-16.0) gm/dL MCHC (31.0-37.0) g/dL Sodium (137-145) mmol/L Potassium (3.5-5.1) mmol/L Carbon Dioxide (22-30) mmol/L BUN 62 H (7-17) mg/dL Creatinine 2.78 H (0.52-1.04) mg/dL POC Glucose (mg/dL) 181 H 169 H (75-99) mg/dL Tacrolimus (5.0-20.0) ng/mL 10/29/21 10/29/21 Range/Units 08:28 10:53 WBC 15.2 H (3.8-10.6) k/uL RBC 3.72 L (3.80-5.40) m/uL Hgb 10.2 L (11.4-16.0) gm/dL MCHC 29.4 L (31.0-37.0) g/dL Sodium (137-145) mmol/L Potassium (3.5-5.1) mmol/L Carbon Dioxide (22-30) mmol/L BUN (7-17) mg/dL Creatinine (0.52-1.04) mg/dL POC Glucose (mg/dL) 106 H (75-99) mg/dL Tacrolimus (5.0-20.0) ng/mL Microbiology - Last 24 Hours (Table) 10/27/21 10:45 Blood Culture - Preliminary Blood No Growth after 48 hours 10/27/21 10:30 Blood Culture - Preliminary Blood No Growth after 48 hours 10/27/21 10:43 Urine Culture - Preliminary Urine,Clean Catch Gram Neg Bacilli
[2021-10-29 16:25] LABS: Glucose,Whole Blood 380 mg/dL (75-99)
[2021-10-29] MEDS: MAGNESIUM OXIDE 400 MG TAB PO SCH (17:55)
[2021-10-29 20:28] LABS: Glucose,Whole Blood 234 mg/dL (75-99)
[2021-10-29] MEDS ORDERED: INSULIN DETEMIR (LEVEMIR) 100 UNIT/ML SYR SQ SCH (21:00)
[2021-10-29] MEDS: ATORVASTATIN 10 MG TAB PO SCH (21:01)
[2021-10-30] MEDS: SODIUM CHLORIDE 0.9% 1,000 ML IV SCH (04:52)
[2021-10-30 06:11] VITALS: RESP 17
[2021-10-30] MEDS ORDERED: INSULIN DETEMIR (LEVEMIR) 100 UNIT/ML SYR SQ SCH (07:00)
[2021-10-30 07:03] LABS: Glucose,Whole Blood 133 mg/dL (75-99)
[2021-10-30] MEDS: INSULIN ASPART (NovoLOG) 100 UNIT/ML VIAL SQ SCH ×2 (08:47→12:56)
[2021-10-30] MEDS: HEPARIN SODIUM,PORCINE/PF 5,000 UNIT/0.5 ML SYRINGE SQ SCH (08:48)
[2021-10-30] MEDS: hydrALAZINE HCL 25 MG TAB PO SCH (08:49)
[2021-10-30] MEDS: TACROLIMUS 1 MG CAP PO SCH (08:49)
[2021-10-30] MEDS: FAMOTIDINE 20 MG TAB PO SCH (08:49)
[2021-10-30] MEDS: cycloSPORINE 0.05% OPHTH 0.4 ML DROPERETTE BOTH EYES SCH (08:49)
[2021-10-30] MEDS: MAGNESIUM OXIDE 400 MG TAB PO SCH (08:49)
[2021-10-30] MEDS: carvediloL 12.5 MG TAB PO SCH (08:50)
[2021-10-30] MEDS: amLODIPine 10 MG TAB PO SCH (08:50)
[2021-10-30] MEDS: predniSONE 5 MG TAB PO SCH (08:50)
[2021-10-30] MEDS: SODIUM BICARBONATE TAB 650 MG TAB PO SCH (08:50)
[2021-10-30 08:55] LABS: HGB 9.8 gm/dL (11.4-16.0); Hypochromasia Moderate; MCH 27.4 pg (25.0-35.0); MCHC 29.7 g/dL (31.0-37.0); MCV 92.3 fL (80.0-100.0); Mean Platelet Volume 9.6; Platelet Count 277 k/uL (150-450); RBC 3.57 m/uL (3.80-5.40); RDW 13.7 % (11.5-15.5); WBC 12.4 k/uL (3.8-10.6)
[2021-10-30 09:06] LABS: African American GFR (CKD) 19 (>60 ml/min/1.73 sqM); Anion Gap 10 mmol/L; Blood Urea Nitrogen 59 mg/dL (7-17); Calcium 8.6 mg/dL (8.4-10.2); Carbon Dioxide 19 mmol/L (22-30); Chloride 105 mmol/L (98-107); Glucose 140 mg/dL (74-99); Non-African American GFR(CKD) 16 (>60 ml/min/1.73 sqM); Potassium 4.5 mmol/L (3.5-5.1); Sodium 134 mmol/L (137-145)
--- NOTE | 2021-10-30 10:59 | P.PN ---
Subjective Patient is seen in follow-up for acute kidney injury on chronic kidney disease and renal transplant management. Oral intake is fair. Denies vomiting or diarrhea. Has been voiding. Creatinine stable at 2.8 today. Blood sugars controlled. No active complaints. Vital signs are stable. General: No acute distress. HEENT: Head exam is unremarkable. LUNGS: Breath sounds decreased. HEART: Rate and Rhythm are regular. ABDOMEN: Soft, no distention. EXTREMITITES: No edema. Objective - Vital Signs Vital signs: Vital Signs Temp 98.5 F 10/30/21 05:39 Pulse 87 10/30/21 07:50 Resp 17 10/30/21 07:50 BP 131/80 10/30/21 05:39 Pulse Ox 97 10/30/21 05:39 FiO2 Intake & Output 10/29/21 10/30/21 10/30/21 18:59 06:59 18:59 Intake Total 1080 Output Total 150 Balance 1080 -150 Weight 87.5 kg Intake: Oral 1080 Output: Urine 150 Other: Voiding Method External Catheter External Catheter External Catheter # Voids 2 - Labs CBC & Chem 7: 10/30/21 08:26 10/30/21 08:26 Labs: Abnormal Lab Results - Last 24 Hours (Table) 10/28/21 10/29/21 10/29/21 Range/Units 05:35 10:53 16:23 WBC (3.8-10.6) k/uL RBC (3.80-5.40) m/uL Hgb (11.4-16.0) gm/dL Hct (34.0-46.0) % MCHC (31.0-37.0) g/dL Sodium (137-145) mmol/L Carbon Dioxide (22-30) mmol/L BUN (7-17) mg/dL Creatinine (0.52-1.04) mg/dL Glucose (74-99) mg/dL POC Glucose (mg/dL) 106 H 380 H (75-99) mg/dL Tacrolimus 3.9 L (5.0-20.0) ng/mL 10/29/21 10/30/21 10/30/21 Range/Units 20:25 07:01 08:26 WBC (3.8-10.6) k/uL RBC (3.80-5.40) m/uL Hgb (11.4-16.0) gm/dL Hct (34.0-46.0) % MCHC (31.0-37.0) g/dL Sodium 134 L (137-145) mmol/L Carbon Dioxide 19 L (22-30) mmol/L BUN 59 H (7-17) mg/dL Creatinine 2.80 H (0.52-1.04) mg/dL Glucose 140 H (74-99) mg/dL POC Glucose (mg/dL) 234 H 133 H (75-99) mg/dL Tacrolimus (5.0-20.0) ng/mL 10/30/21 Range/Units 08:26 WBC 12.4 H (3.8-10.6) k/uL RBC 3.57 L (3.80-5.40) m/uL Hgb 9.8 L (11.4-16.0) gm/dL Hct 33.0 L (34.0-46.0) % MCHC 29.7 L (31.0-37.0) g/dL Sodium (137-145) mmol/L Carbon Dioxide (22-30) mmol/L BUN (7-17) mg/dL Creatinine (0.52-1.04) mg/dL Glucose (74-99) mg/dL POC Glucose (mg/dL) (75-99) mg/dL Tacrolimus (5.0-20.0) ng/mL Microbiology - Last 24 Hours (Table) 10/27/21 10:43 Urine Culture - Final Urine,Clean Catch Proteus mirabilis 10/27/21 10:45 Blood Culture - Preliminary Blood No Growth after 48 hours 10/27/21 10:30 Blood Culture - Preliminary Blood No Growth after 48 hours Assessment and Plan Plan: Assessment: 1. Acute allograft dysfunction mostly prerenal secondary to hypovolemia from DKA and UTI. Creatinine was 2.86 on admission - stable at 2.8 today. 2. Status post donor renal allograft in 2016 at [facility] due to underlying diabetic kidney disease. 3. Chronic kidney disease stage IIIB with baseline creatinine in the range of 1.5-2 secondary to long-term calcineurin inhibitor use and solitary kidney as well as episodes of rejection. 4. DKA s/p insulin drip and fluids. 5. Hypertonic hyponatremia secondary to hyperglycemia. Improved. 6. Metabolic acidosis secondary to acute kidney injury and DKA. Also from IV fluids. On oral bicarbonate. 7. Hyperkalemia secondary to acute kidney injury, metabolic acidosis and hyperglycemia. Prograf can also induce hyperkalemia. Improved. 8. Hypertension with chronic kidney disease. Stable. 9. 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 10. UTI with urine culture positive for Proteus on antibiotics. Plan: Encouraged oral intake. Hep-Lock IV fluids. Prograf level 3.9. Increase dose to 6 mg twice a day. Repeat another level. Maintain prednisone and Prograf. Myfortic held due to UTI - can be resumed in the next 24-48 hours. Discussed with patient. Continue to monitor renal function and urine output. Patient will follow up outpatient in 1 week at the transplant clinic post discharge. Increase dose of oral Mag-Ox.
--- NOTE | 2021-10-30 11:44 | P.DS ---
Providers Date of admission: 10/27/21 13:10 Attending physician: Apryl Tovar DO Consults: 10/27/21 13:11 Consult Physician Routine Consulting Provider: Enrique Jay Consult Reason/Comments: Uncontrolled diabetes/DKA, hyperkalemia Do you want consulting provider notified?: Yes 10/27/21 13:12 Consult Physician Routine Consulting Provider: Juan Manuel Clark Consult Reason/Comments: History of kidney transplant 2017 on rejection medication, DKA, UTI Do you want consulting provider notified?: Yes Primary care physician: [facility] Course: This is a 70-year-old female with history of kidney transplant in 2017 maintained on CellCept and Prograf, diabetes type 2 on insulin, asthma, hypertension, and dyslipidemia who initially presented to the emergency department due to weakness, confusion, and hyperglycemia. Patient had been having issues with urinary tract infection and laboratory abnormalities for the last 2 weeks. She was taking Cipro 500 mg outpatient. On arrival to the ER her vital signs were within normal limits. Laboratory analysis showed white blood cell count of 18.9, sodium 128, potassium 6.2, carbon dioxide 15, anion gap 16, BUN 71, creatinine 2.86, glucose 727, urinalysis was positive for ketones and acetone. In the ER she was started on IV fluids, ceftriaxone, and insulin drip. She was also giving temporizing potassium managers as well as Kayexalate. Her anion gap was closed and sugars were improved. She was transitioned to long and short acting insulin. She was followed by nephrology. During her stay, she improved symptomatically and hemodynamically. She was seen and examined at bedside today. She reports feeling much better and feels competent enough to be discharged. She is afebrile. Her vitals are stable. Denies chest pain, shortness of breath, nausea, vomiting, abdominal pain. Denies dysuria. Urine cultures reviewed. Shows growth of Proteus. She will be discharged home on oral Keflex to complete a 5 day course of antibiotic treatment for uncomplicated cystitis. She will follow up with nephrology clinic/transplant clinic as recommended. She verbalizes understanding. Constitutional: No acute distress, conversant, pleasant Eyes: Anicteric sclerae, moist conjunctiva, no lid-lag PERRLA HENMT: Normocephalic / Atraumatic oropharynx clear, no erythema, exudates Neck: Supple, full range of motion, nontender, no masses, or JVD no carotid bruits no thyromegaly no lymphadenopathy Lungs: Bilateral equal air entry with no wheezing or crackles. No use of accessory muscles. Cardiovascular: Heart regular in rate and rhythm, no murmur, no peripheral edema Abdominal: Soft, Nontender, no guarding, rebound or rigidity abdomen moving with respiration normoactive bowel sounds no hepatomegaly, No splenomegaly no palpable mass no abdominal wall hernia noted Skin: Normal temperature, tone, texture, turgor no induration no subcutaneous nodules no rash,lesions no ulcers Extremities: No digital cyanosis no clubbing pedal pulses intact and symmetrical radial pulses intact and symmetrical normal gait and station no calf tenderness Psychiatric: Alert and oriented to person, place and time appropriate affect intact judgement Neuro: Muscle Strength 5/5 in all 4 extremities sensation to light touch grossly present throughout cranial nerves II-XII grossly intact no focal sensory deficits I have spent 33 minutes in discharging this patient. Assessment: UTI Acute kidney injury, superimposed on chronic kidney disease stage III in the setting of renal transplant Type 2 diabetes DKA, resolved Hypertension Chronic anemia Pseudohyponatremia Hyperkalemia, resolved Chronic issues Asthma Chronic back pain Irritable bowel syndrome Patient Condition at Discharge: Stable Plan - Discharge Summary Discharge Rx Participant: No New Discharge Prescriptions: New Magnesium Carb,Citrate,Oxide [Magnesium Complex] 300 mg PO DAILY #30 tablet Cephalexin [Keflex] 500 mg PO Q8HR 1 Days #3 cap Continue Tacrolimus [Prograf] 6 mg PO DAILY amLODIPine [Norvasc] 10 mg PO DAILY Sodium Bicarbonate Tab 1,300 mg PO TID Albuterol Nebulized [Ventolin Nebulized] 2.5 mg INHALATION RT-Q4H PRN PRN Reason: Shortness Of Breath Atorvastatin Calcium [Lipitor] 10 mg PO HS predniSONE 5 mg PO DAILY Insulin Glargine,Hum.rec.anlog [Lantus Solostar Pen] 35 unit SQ HS Losartan Potassium 100 mg PO DAILY Mycophenolate Sodium [Mycophenolic Acid] 360 mg PO BID hydrALAZINE HCL [Apresoline] 75 mg PO TID Carvedilol [Coreg] 25 mg PO BID cycloSPORINE 0.05% OPHTH SOLN [Restasis] 1 drop BOTH EYES BID Ergocalciferol [Vitamin D2 (1250 Mcg = 87461 Iu)] 1,250 mcg PO PARRISH Furosemide [Lasix] 40 mg PO DAILY PRN PRN Reason: Edema Famotidine 40 mg PO DAILY Loperamide HCl [Imodium A-D] 2 mg PO TID PRN PRN Reason: Diarrhea Discontinued Ciprofloxacin HCl [Cipro] 500 mg PO DAILY No Action Tacrolimus [Prograf] 5 mg PO HS Insulin Lispro [humaLOG Kwikpen] See Protocol SQ AC-TID Lidocaine 5% Patch [Lidoderm] 1 patch TRANSDERM DAILY PRN PRN Reason: Pain Discharge Medication List Tacrolimus [Prograf] 6 mg PO DAILY 07/26/16 [History] Albuterol Nebulized [Ventolin Nebulized] 2.5 mg INHALATION RT-Q4H PRN 08/11/16 [History] Atorvastatin Calcium [Lipitor] 10 mg PO HS 08/11/16 [History] Sodium Bicarbonate Tab 1,300 mg PO TID 08/11/16 [History] amLODIPine [Norvasc] 10 mg PO DAILY 08/11/16 [History] predniSONE 5 mg PO DAILY 08/25/17 [History] Tacrolimus [Prograf] 5 mg PO HS 06/01/18 [History] Insulin Glargine,Hum.rec.anlog [Lantus Solostar Pen] 35 unit SQ HS 04/18/20 [History] Losartan Potassium 100 mg PO DAILY 04/18/20 [History] Insulin Lispro [humaLOG Kwikpen] See Protocol SQ AC-TID 04/25/20 [History] Mycophenolate Sodium [Mycophenolic Acid] 360 mg PO BID 04/25/20 [History] Carvedilol [Coreg] 25 mg PO BID 10/27/21 [History] Ergocalciferol [Vitamin D2 (1250 Mcg = 29782 Iu)] 1,250 mcg PO PARRISH 10/27/21 [History] Famotidine 40 mg PO DAILY 10/27/21 [History] Furosemide [Lasix] 40 mg PO DAILY PRN 10/27/21 [History] Lidocaine 5% Patch [Lidoderm] 1 patch TRANSDERM DAILY PRN 10/27/21 [History] Loperamide HCl [Imodium A-D] 2 mg PO TID PRN 10/27/21 [History] cycloSPORINE 0.05% OPHTH SOLN [Restasis] 1 drop BOTH EYES BID 10/27/21 [History] hydrALAZINE HCL [Apresoline] 75 mg PO TID 10/27/21 [History] Cephalexin [Keflex] 500 mg PO Q8HR 1 Days #3 cap 10/30/21 [Rx] Magnesium Carb,Citrate,Oxide [Magnesium Complex] 300 mg PO DAILY #30 tablet 10/30/21 [Rx] Follow up Appointment(s)/Referral(s): [facility], [NON-STAFF] - As Needed Raza Purcell MD [Primary Care Provider] - 1-2 days Discharge Disposition: HOME WITH HOME HEALTH SERVICES
[2021-10-30 11:45] LABS: Glucose,Whole Blood 199 mg/dL (75-99)
[2021-10-30] MEDS: MAGNESIUM SULFATE-D5W PMX 1 GM in DEXTROSE/WATER 1 100ML.BAG IVPB SCH ×2 (12:56→15:00)
[2021-10-30 14:55] VITALS: BP 108/66; PULSE 77; TEMP 98.4
[2021-10-30] MEDS ORDERED: MAGNESIUM OXIDE 400 MG TAB PO SCH (21:00)
[2021-10-30] MEDS ORDERED: TACROLIMUS 1 MG CAP PO SCH (21:00)
[2021-11-01] MEDS ORDERED: ERGOCALCIFEROL 1,250 MCG (50,000 IU) CAPSULE PO SCH (09:00)
== END 2021-10-30 15:44 | disposition home health service (06) | DRG 638 ==
LOC: EC 09:53 → 2SICU 13:10 → 4SSUR 10-28 16:48
PROVIDERS: ADMIT Internal Medicine; ATTEND Internal Medicine
DX: E11.10 Type 2 diabetes mellitus with ketoacidosis without coma (principal); D84.9 Immunodeficiency, unspecified; E87.1 Hypo-osmolality and hyponatremia; I12.0 Hypertensive chronic kidney disease with stage 5 chronic kidney disease or end stage renal disease; N17.9 Acute kidney failure, unspecified; T86.19 Other complication of kidney transplant; E11.22 Type 2 diabetes mellitus with diabetic chronic kidney disease; E78.5 Hyperlipidemia, unspecified; D64.9 Anemia, unspecified; E11.319 Type 2 diabetes mellitus with unspecified diabetic retinopathy without macular edema; E11.42 Type 2 diabetes mellitus with diabetic polyneuropathy; E11.649 Type 2 diabetes mellitus with hypoglycemia without coma; J45.909 Unspecified asthma, uncomplicated; K63.5 Polyp of colon; M47.9 Spondylosis, unspecified; M48.00 Spinal stenosis, site unspecified; E87.5 Hyperkalemia; K58.9 Irritable bowel syndrome, unspecified; N15.9 Renal tubulo-interstitial disease, unspecified; Z86.16 Personal history of COVID-19; B96.4 Proteus (mirabilis) (morganii) as the cause of diseases classified elsewhere; N18.32 Chronic kidney disease, stage 3b; E86.0 Dehydration; E86.1 Hypovolemia; G89.29 Other chronic pain; Z79.4 Long term (current) use of insulin; Z79.52 Long term (current) use of systemic steroids; Z79.899 Other long term (current) drug therapy; Z87.19 Personal history of other diseases of the digestive system; Z87.440 Personal history of urinary (tract) infections; Z87.891 Personal history of nicotine dependence; Z90.710 Acquired absence of both cervix and uterus; Z99.2 Dependence on renal dialysis; Y83.0 Surgical operation with transplant of whole organ as the cause of abnormal reaction of the patient, or of later complication, without mention of misadventure at the time of the procedure; Z88.8 Allergy status to other drugs, medicaments and biological substances; Z91.041 Radiographic dye allergy status
CPT/HCPCS: 36415; 70450; 71046; 80048; 80051; 80053; 80197; 81001; 82009; 82565; 82803; 82947; 83036; 83605; 83735; 84100; 84520; 85025; 85027; 85610; 85730; 87040; 87077; 87086; 87186; 93005; 96361; 96365; 96366; 96368; 96372; 96375; 99291

== ENCOUNTER → 2022-01-19 | Outpatient (CLI) | payer MEDICARE ==
[2022-01-19 09:14] VITALS: BP 191/92; PULSE 85; RESP 17; TEMP 98.6
--- NOTE | 2022-01-19 10:04 | P.HPOB ---
History of Present Illness H&P Date: 01/19/22 Chief Complaint: The patient is here for her routine gynecologic exam and ma mmogram. This is a 71-year-old 023 with an LMP of 1994. The patient is status post vaginal hysterectomy for benign reasons. She is complaining of a rash below her abdominal fold going into the groin areas. She has noticed this for about 1-1/2 weeks. She notices slight odor. She also believes she has had slight discharge from the vagina which is clear and thin. She denies vulvar or vaginal itching. She does experience itching in the area of both beneath her abdominal fold and in the groin areas. Review of Systems She has lost about 27 pounds over the past 3 years. She denies respiratory, cardiac, or GI problems. Past Medical History Past Medical History: No Reported History, Asthma, Diabetes Mellitus, Dialysis, Eye Disorder, Hyperlipidemia, Hypertension, Renal Disease, Skin Disorder Additional Past Medical History / Comment(s): history of covid, IDDM type II, neuropathy bilateral legs/feet, ESRD with past peritoneal/hemodialysis then in 2016 had renal transplant, UTI with sepsis, IBS, benign colon polyps, chronic low back pain, migraines, R eye retinal bleed with injections, L eye detached retina with surgery, anemia. PAST [employer] HISTORY: She has no history of STDs. History of Any Multi-Drug Resistant Organisms: ESBL Date of last positivie culture/infection: 2011 approx(PREVIOUSLY CHARTED) MDRO Source:: peritoneal dialysis cath Past Surgical History: Cholecystectomy, Hysterectomy, Orthopedic Surgery Additional Past Surgical History / Comment(s): Peritoneal dialysis cath since removed, hemodialysis cath since removed, 2016 renal transplant, EGD, colonoscopies/benign polypectomy, bilateral eye cataract removals, L eye detached retinal surgery, L knee arthroscopy Past Anesthesia/Blood Transfusion Reactions: No Reported Reaction Additional Past Anesthesia/Blood Transfusion Reaction / Comment(s): has had a hard time coming out of anesthesia Past Psychological History: No Psychological Hx Reported Additional Psychological History / Comment(s): 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 She is independent. Smoking Status: Former smoker Past Alcohol Use History: None Reported Additional Past Alcohol Use History / Comment(s): Pt started smoking 1979,quit smoking 1989, smoked 3 packs per week. Past Drug Use History: None Reported Additional History: She has been since 1980 and is not sexually active. - Past Family History Mother History Unknown: Yes Additional Family Medical History / Comment(s): Mother of poisoning when pt was 11 yrs old. Father Family Medical History: Vascular Disorder Additional Family Medical History / Comment(s): brain aneurysm Medications and Allergies Home Medications Medication Instructions Recorded Confirmed Type Tacrolimus [Prograf] 6 mg PO DAILY 07/26/16 01/19/22 History Albuterol Nebulized [Ventolin 2.5 mg INHALATION RT-Q4H PRN 08/11/16 01/19/22 History Nebulized] Atorvastatin Calcium [Lipitor] 10 mg PO HS 08/11/16 01/19/22 History Sodium Bicarbonate Tab 1,300 mg PO TID 08/11/16 01/19/22 History amLODIPine [Norvasc] 10 mg PO DAILY 08/11/16 01/19/22 History predniSONE 5 mg PO DAILY 08/25/17 01/19/22 History Tacrolimus [Prograf] 5 mg PO HS 06/01/18 01/19/22 History Insulin Glargine,Hum.rec.anlog 35 unit SQ HS 04/18/20 01/19/22 History [Lantus Solostar Pen] Losartan Potassium 100 mg PO DAILY 04/18/20 01/19/22 History Insulin Lispro [humaLOG Kwikpen] See Protocol SQ AC-TID 04/25/20 01/19/22 History Mycophenolate Sodium [Mycophenolic 360 mg PO BID 04/25/20 01/19/22 History Acid] Ergocalciferol [Vitamin D2 (1250 1,250 mcg PO PARRISH 10/27/21 01/19/22 History Mcg = 41519 Iu)] Famotidine 40 mg PO DAILY 10/27/21 01/19/22 History Furosemide [Lasix] 40 mg PO DAILY PRN 10/27/21 01/19/22 History Lidocaine 5% Patch [Lidoderm] 1 patch TRANSDERM DAILY PRN 10/27/21 01/19/22 History Loperamide HCl [Imodium A-D] 2 mg PO TID PRN 10/27/21 01/19/22 History carvediloL [Coreg] 25 mg PO BID 10/27/21 01/19/22 History hydrALAZINE HCL [Apresoline] 75 mg PO TID 10/27/21 01/19/22 History Cephalexin [Keflex] 500 mg PO Q8HR 1 Days #3 cap 10/30/21 01/19/22 Rx Magnesium Carb,Citrate,Oxide 300 mg PO DAILY #30 tablet 10/30/21 01/19/22 Rx [Magnesium Complex] Allergies Allergy/AdvReac Type Severity Reaction Status Date / Time hydralazine [From Apresoline] Allergy Rash/Hives Verified 01/19/22 09:10 Iodinated Contrast Media Allergy Unknown Verified 01/19/22 09:10 [Iodinated Contrast- Oral and IV Dye] meperidine [From Demerol] Allergy Anaphylaxis Verified 01/19/22 09:10 Exam Vital Signs Temp Pulse Resp BP Pulse Ox 01/19/22 09:11 98.6 F 85 17 191/92 100 Intake and Output 01/18/22 01/19/22 01/19/22 22:59 06:59 14:59 Other: Weight 83.007 kg Height 5 feet 3 inches, weight 183 pounds, BMI 32.4. This is a well-developed well-nourished heavyset black female who is alert and oriented times 3 in no acute distress. HEENT: Within normal limits. NECK: Supple without mass or thyromegaly. CHEST AND LUNGS: Clear to auscultation. HEART: Regular rate and rhythm. BREASTS: Are without mass or discharge. AXILLARY EXAM: Negative for adenopathy. BACK: Negative for CVA tenderness. ABDOMEN: Soft, nontender, without palpable masses. Beneath the abdominal pannus there is redness with generalized excoriation. The area is moist with slight odor. This extends to the mons pubis and to the bilateral groin areas. PELVIC EXAM: External genitalia appears normal with mild atrophy. Vagina appears normal with mild atrophy. There is no unusual discharge. There is no evidence of prolapse. Bimanual examination is negative for mass or tenderness. RECTAL EXAM: Rectovaginal exam is negative for mass or tenderness and is negative for occult blood. EXTREMITIES: Nontender. IMPRESSION: 1. 71-year-old menopausal female status post vaginal hysterectomy for benign reasons with normal gynecologic exam. 2. Intertrigo beneath the abdominal pannus extending to the groin areas. 3. Subjective vaginal discharge per the patient with no significant discharge noted on exam today. 4. History of osteoporosis with previous Prolia use. She states she is no longer taking Prolia area PLAN: 1. Pap smears have been discontinued. 2. Screening mammogram will be done today. 3. Affirm vaginitis panel was obtained from the vagina. 4. Nystatin powder twice a day to the affected areas. I have stressed the importance of keeping the area clean and dry. If she has not noticed improvement within 1 week, she was instructed to discuss this with her PCP and for possible dermatologic evaluation or referral. Electronic prescription will be sent to [facility] pharmacy at [facility]. 5. Osteoporosis management was discussed. I have stressed the importance of adequate calcium, vitamin D and regular exercise. Recommended amounts of calcium and vitamin D were also discussed. She states she is scheduled for a bone density test in the near future. The order slip was mailed to the patient. 6. She has completed her Covid vaccination series and did receive one booster. 7. She was advised to return in one year for her annual well woman exam and as needed.
[2022-01-20 16:35] LABS: Gardnerella Negative (Negative); Source Vagina; Trichomonas Negative (Negative)
--- NOTE | 2022-01-20 19:30 | MM ---
Reason for Exam: Screening (asymptomatic). Last mammogram was performed 1 year(s) and 3 month(s) ago. Patient History: Menarche at age 11. First Full-Term at age 15. Left ovary removed at age 45. Right ovary removed at age 45. Hysterectomy at age 45. Postmenopausal. Risk Values: Danni 5 year model risk: 1.4%. NCI Lifetime model risk: 3.8%. Prior Study Comparison: 10/12/2017 Bilateral Screening Mammogram, [facility]. 11/22/2018 Bilateral Screening Mammogram, [facility]. 10/28/2020 Bilateral Screening Mammogram, [facility]. Tissue Density: There are scattered fibroglandular densities. Findings: Analyzed By CAD. Benign vascular calcifications. There is no suspicious group of microcalcifications or new suspicious mass in either breast. Overall Assessment: Negative, BI-RAD 1 Management: Screening Mammogram of both breasts in 1 year. 1. Patient should continue monthly self breast exams. 2. A clinical breast exam by your physician is recommended on an annual basis. 3. This exam should not preclude additional follow-up of suspicious palpable abnormalities. Electronically signed and approved by: Alanna Ken M.D. Radiologist
== END ==
LOC: WWCWWP 09:04
PROVIDERS: ATTEND Obstetrics & Gynecology
DX: Z01.419 Encounter for gynecological examination (general) (routine) without abnormal findings (principal); Z12.31 Encounter for screening mammogram for malignant neoplasm of breast; J45.909 Unspecified asthma, uncomplicated; L30.4 Erythema intertrigo; E65 Localized adiposity; Z87.39 Personal history of other diseases of the musculoskeletal system and connective tissue; E78.5 Hyperlipidemia, unspecified; I10 Essential (primary) hypertension; E11.40 Type 2 diabetes mellitus with diabetic neuropathy, unspecified; E11.22 Type 2 diabetes mellitus with diabetic chronic kidney disease; I12.0 Hypertensive chronic kidney disease with stage 5 chronic kidney disease or end stage renal disease; N18.6 End stage renal disease; Z99.2 Dependence on renal dialysis; Z87.891 Personal history of nicotine dependence; Z79.51 Long term (current) use of inhaled steroids; Z79.4 Long term (current) use of insulin; Z78.0 Asymptomatic menopausal state; Z90.710 Acquired absence of both cervix and uterus; Z91.041 Radiographic dye allergy status; Z88.8 Allergy status to other drugs, medicaments and biological substances
CPT/HCPCS: 77063; 77067; 87480; 87510; 87660

== ENCOUNTER → 2022-08-16 | Outpatient (CLI) | payer MEDICARE | END | disposition home or self-care (01) | LOC: LABWHC1 12:44 | PROVIDERS: ATTEND Family Medicine | DX: Z53.9 Procedure and treatment not carried out, unspecified reason (principal) ==

== ENCOUNTER 2022-11-23 20:25 | Inpatient (IN) | payer MEDICARE ==
--- NOTE | 2022-11-23 21:24 | ED ---
Altered Mental Status HPI - General Source: EMS Mode of arrival: EMS Limitations: altered mental status <Evan Manning - Last Filed: 11/24/22 17:13> <BridgertimmyBrianna Darrin - Last Filed: 11/29/22 23:01> - General Chief Complaint: Altered Mental Status Stated Complaint: Altered Mental Time Seen by Provider: 11/23/22 20:43 - History of Present Illness Initial Comments: 32-year-old female with past medical history significant diabetes presents to the ED with a chief complaint of altered mental status. Per patient never c alled EMS due to this however patient is not able to provide any meaningful history. At present denies chest pain, shortness of breath, abdominal pain. No other complaints (Evan Manning) - Related Data Home Medications Medication Instructions Recorded Confirmed Tacrolimus [Prograf] 5 mg PO DAILY 07/26/16 11/24/22 Atorvastatin Calcium [Lipitor] 10 mg PO HS 08/11/16 11/24/22 Sodium Bicarbonate Tab 1,300 mg PO TID 08/11/16 11/24/22 amLODIPine [Norvasc] 10 mg PO DAILY 08/11/16 11/24/22 predniSONE 5 mg PO DAILY 08/25/17 11/24/22 Tacrolimus [Prograf] 4 mg PO HS 06/01/18 11/24/22 Insulin Glargine,Hum.rec.anlog 35 unit SQ HS 04/18/20 11/24/22 [Lantus Solostar Pen] Losartan Potassium 100 mg PO DAILY 04/18/20 11/24/22 Insulin Lispro [humaLOG Kwikpen] See Protocol SQ AC-TID 04/25/20 11/24/22 Mycophenolate Sodium [Mycophenolic 360 mg PO BID 04/25/20 11/24/22 Acid] Ergocalciferol [Vitamin D2 (1250 1,250 mcg PO Q7D 10/27/21 11/24/22 Mcg = 14089 Iu)] Famotidine 40 mg PO DAILY 10/27/21 11/24/22 Furosemide [Lasix] 40 mg PO DAILY PRN 10/27/21 11/24/22 carvediloL [Coreg] 25 mg PO BID 10/27/21 11/24/22 Albuterol Inhaler [Ventolin Hfa 2 puff INHALATION RT-DAILY 11/24/22 11/24/22 Inhaler] Aspirin EC [Ecotrin Low Dose] 81 mg PO DAILY 11/24/22 11/24/22 Diphenox-Atrop 2.5-0.025 mg 1 tab PO TID PRN 11/24/22 11/24/22 [Lomotil] Docusate [Colace] 100 mg PO DAILY PRN 11/24/22 11/24/22 Gentamicin 0.1% Cream 1 applic TOPICAL DAILY 11/24/22 11/24/22 Ketoconazole 2% Cream [Nizoral 2%] 1 applic TOPICAL DAILY PRN 11/24/22 11/24/22 Sodium Zirconium Cyclosilicate 10 gm PO DAILY 11/24/22 11/24/22 [Lokelma] Thiamine [Vitamin B-1] 250 mg PO BID 11/24/22 11/24/22 traMADol HCL 50 - 100 mg PO Q6H PRN 11/24/22 11/24/22 Allergies Allergy/AdvReac Type Severity Reaction Status Date / Time hydralazine [From Apresoline] Allergy Rash/Hives Verified 11/24/22 10:36 Iodinated Contrast Media Allergy Unknown Verified 11/24/22 10:36 [Iodinated Contrast- Oral and IV Dye] meperidine [From Demerol] Allergy Anaphylaxis Verified 11/24/22 10:36 Penicillins Allergy Rash/Hives Verified 11/26/22 14:42 Review of Systems ROS Other: All systems not noted in ROS Statement are negative. <Evan Manning - Last Filed: 11/24/22 17:13> ROS Other: All systems not noted in ROS Statement are negative. <Brianna Gutiérrez - Last Filed: 11/29/22 23:01> ROS Statement: Those systems with pertinent positive or pertinent negative responses have been documented in the HPI. Past Medical History Past Medical History: No Reported History, Asthma, Diabetes Mellitus, Dialysis, Eye Disorder, Hyperlipidemia, Hypertension, Renal Disease, Skin Disorder Additional Past Medical History / Comment(s): history of covid, IDDM type II, neuropathy bilateral legs/feet, ESRD with past peritoneal/hemodialysis then in 2016 had renal transplant, UTI with sepsis, IBS, benign colon polyps, chronic low back pain, migraines, R eye retinal bleed with injections, L eye detached retina with surgery, anemia. 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 History of Any Multi-Drug Resistant Organisms: ESBL Date of last positivie culture/infection: 2011 approx(PREVIOUSLY CHARTED) MDRO Source:: peritoneal dialysis cath Past Surgical History: Cholecystectomy, Hysterectomy, Orthopedic Surgery Additional Past Surgical History / Comment(s): Peritoneal dialysis cath since removed, hemodialysis cath since removed, 2016 renal transplant, EGD, colonoscopies/benign polypectomy, bilateral eye cataract removals, L eye detached retinal surgery, L knee arthroscopy Past Anesthesia/Blood Transfusion Reactions: No Reported Reaction Additional Past Anesthesia/Blood Transfusion Reaction / Comment(s): has had a hard time coming out of anesthesia Past Psychological History: No Psychological Hx Reported Smoking Status: Former smoker Past Alcohol Use History: None Reported Past Drug Use History: None Reported - Past Family History Mother History Unknown: Yes Additional Family Medical History / Comment(s): Mother of poisoning when pt was 11 yrs old. Father Family Medical History: Vascular Disorder Additional Family Medical History / Comment(s): brain aneurysm <Evan Manning - Last Filed: 11/24/22 17:13> General Exam Limitations: altered mental status General appearance: alert (Alert to place and person however not alert to time) Head exam: Present: atraumatic Eye exam: Present: normal appearance Respiratory exam: Present: wheezes (Wheezing in bilateral lung carmona) Cardiovascular Exam: Present: normal rhythm (Tachycardic), tachycardia GI/Abdominal exam: Present: soft (No Rebound guarding or rigidity) Extremities exam: Present: other (Strength and sensation equal and intact in bilateral upper and lower extremities.) Neurological exam: Present: alert (Oriented to place and self but not time. Responds somewhat appropriately to questions.) <Evan Manning - Last Filed: 11/24/22 17:13> Course Vital Signs 11/23/22 11/23/22 11/23/22 20:29 20:31 22:00 Temperature 99.3 F Pulse Rate 109 H 109 H Respiratory 22 18 Rate Blood Pressure 188/106 116/80 O2 Sat by Pulse 97 97 Oximetry 11/24/22 11/24/22 06:00 12:00 Temperature Pulse Rate 105 H 104 H Respiratory 20 18 Rate Blood Pressure 145/71 178/95 O2 Sat by Pulse 98 Oximetry Medical Decision Making - Lab Data Result diagrams: 11/24/22 11:18 11/23/22 21:47 <Eavn Manning - Last Filed: 11/24/22 17:13> - Lab Data Result diagrams: 11/28/22 07:34 11/29/22 07:25 <Brianna Gutiérrez - Last Filed: 11/29/22 23:01> - Medical Decision Making Was pt. sent in by a medical professional or institution (, PA, WEATHERIZATION FIELD TECHNICIAN, urgent care, hospital, or fci...) When possible be specific @ -No Did you speak to anyone other than the patient for history (EMS, parent, family, police, friend...)? What history was obtained from this source @ -No Did you review nursing and triage notes (agree or disagree)? Why? @ -I reviewed and agree with nursing and triage notes Were old charts reviewed (outside hosp., previous admission, EMS record, old EKG, old radiological studies, urgent care reports/EKG's, fci records)? Report findings @ -Old charts reviewed showing a history of diabetes. Additionally patient on Lasix. Differential Diagnosis (chest pain, altered mental status, abdominal pain women, abdominal pain men, vaginal bleeding, weakness, fever, dyspnea, syncope, headache, dizziness, GI bleed, back pain, seizure, CVA, palpatations, mental health, musculoskeletal)? @ -Differential Altered Mental Status: Hypoglycemia, DKA, hypercapnia, ETOH, overdose, CO poisoning, trauma, myxedema coma, HTN encephalopathy, infection, encephalitis, psychosis, intercranial hemorrhage, hepatic encephalopathy, meningitis, CVA, this is not meant to be an all-inclusive list EKG interpreted by me (3pts min.). @ -As above X-rays interpreted by me (1pt min.). @ -X-ray shows opacities consistent with bilateral pneumonia. CT interpreted by me (1pt min.). @ -CT of the brain showed no acute bleed. U/S interpreted by me (1pt. min.). @ -None done What testing was considered but not performed or refused? (CT, X-rays, U/S, labs)? Why? @ -None What meds were considered but not given or refused? Why? @ -None Did you discuss the management of the patient with other professionals (professionals i.e. , PA, WEATHERIZATION FIELD TECHNICIAN, lab, RT, psych nurse, social media marketing analyst, procurement assistant, teacher, property portfolio officer, casework supervisor)? Give summary @ -Spoke to Dr. Moreau and Dr. Main Was smoking cessation discussed for >3mins.? @ -No Was critical care preformed (if so, how long)? @ -Critical care performed for a total of approximately 35 minutes. Were there social determinants of health that impacted care today? How? (Homelessness, low income, unemployed, alcoholism, drug addiction, transportation, low edu. Level, literacy, decrease access to med. care, half-way, rehab)? @ -No Was there de-escalation of care discussed even if they declined (Discuss DNR or withdrawal of care, Hospice)? DNR status @ -No What co-morbidities impacted this encounter? (DM, HTN, Smoking, COPD, CAD, Cancer, CVA, ARF, Chemo, Hep., AIDS, mental health diagnosis, sleep apnea, morbid obesity)? @ -Diabetes Was patient admitted / discharged? Hospital course, mention meds given and route, prescriptions, significant lab abnormalities, going to OR and other pertinent info. @ -Admitted. EKG showed changes concerning for myocardial ischemia with troponin significant for 10.1. In addition chest x-ray showed opacities consistent with pneumonia with a white count significant for 18.6. Lactic acid 3.3. Chemistry also significant for elevated BUN/creatinine and creatinine. Blood cultures obtained. Given 1 L bolus and started on saline @130 miles per hour. In addition started on 2 g ceftriaxone IV and azithromycin 500 mg IV. Discussed with cardiology who recommended starting patient on heparin. Patient admitted to Dr. Main with cardiology consultation. Undiagnosed new problem with uncertain prognosis? @ -No Drug Therapy requiring intensive monitoring for toxicity (Heparin, Nitro, Insulin, Cardizem)? @ -Heparin Were any procedures done? @ -No Diagnosis/symptom? @ -Pneumonia, sepsis, myocardial ischemia. Acute, or Chronic, or Acute on Chronic? @ -Acute Uncomplicated (without systemic symptoms) or Complicated (systemic symptoms)? @ -Complicated Side effects of treatment? @ -No Exacerbation, Progression, or Severe Exacerbation? @ -No Poses a threat to life or bodily function? How? (Chest pain, [place], [place], pneumonia, PE, COPD, DKA, ARF, appy, cholecystitis, CVA, Diverticulitis, Homicidal, Suicidal, threat to staff... and all critical care pts) @ -Yes, severe sepsis with myocardial ischemia and JONES. (Evan Manning) - Lab Data Lab Results 11/23/22 11/23/22 11/23/22 Range/Units 21:37 21:47 21:47 WBC 18.6 H (3.8-10.6) k/uL RBC 3.93 (3.80-5.40) m/uL Hgb 10.5 L (11.4-16.0) gm/dL Hct 35.5 (34.0-46.0) % MCV 90.2 (80.0-100.0) fL MCH 26.6 (25.0-35.0) pg MCHC 29.5 L (31.0-37.0) g/dL RDW 14.9 (11.5-15.5) % Plt Count 195 (150-450) k/uL MPV 10.4 Neutrophils % (Manual) 72 % Band Neuts % (Manual) 11 % Lymphocytes % (Manual) 8 % Monocytes % (Manual) 6 % Basophils % (Manual) 1 % Metamyelocytes % 3 % Myelocytes % 1 % Neutrophils # (Manual) 15.40 H (1.3-7.7) k/uL Lymphocytes # (Manual) 1.49 (1.0-4.8) k/uL Monocytes # (Manual) 1.12 H (0-1.0) k/uL Basophils # (Manual) 0.19 (0-0.2) k/uL Metamyelocytes # (Man) 0.56 H (0) k/uL Myelocytes # (Manual) 0.19 H (0) k/uL Nucleated RBCs 0 (0-0) /100 WBC Manual Slide Review Performed Hypochromasia Marked PT 11.4 (9.0-12.0) sec INR 1.1 (<1.2) APTT 27.0 (22.0-30.0) sec Sodium (137-145) mmol/L Potassium (3.5-5.1) mmol/L Chloride (98-107) mmol/L Carbon Dioxide (22-30) mmol/L Anion Gap mmol/L BUN (7-17) mg/dL Creatinine (0.52-1.04) mg/dL Est GFR (CKD-EPI)AfAm (>60 ml/min/1.73 sqM) Est GFR (CKD-EPI)NonAf (>60 ml/min/1.73 sqM) Glucose (74-99) mg/dL POC Glucose (mg/dL) 252 H (70-110) mg/dL POC Glu Regional Program Manager ID Chicho, Aidee Lactic Ac Sepsis Rflx Plasma Lactic Acid David (0.7-2.0) mmol/L Calcium (8.4-10.2) mg/dL Total Bilirubin (0.2-1.3) mg/dL AST (14-36) U/L ALT (4-34) U/L Alkaline Phosphatase (38-126) U/L Troponin I (0.000-0.034) ng/mL Total Protein (6.3-8.2) g/dL Albumin (3.5-5.0) g/dL 11/23/22 11/23/22 11/23/22 Range/Units 21:47 21:47 21:47 WBC (3.8-10.6) k/uL RBC (3.80-5.40) m/uL Hgb (11.4-16.0) gm/dL Hct (34.0-46.0) % MCV (80.0-100.0) fL MCH (25.0-35.0) pg MCHC (31.0-37.0) g/dL RDW (11.5-15.5) % Plt Count (150-450) k/uL MPV Neutrophils % (Manual) % Band Neuts % (Manual) % Lymphocytes % (Manual) % Monocytes % (Manual) % Basophils % (Manual) % Metamyelocytes % % Myelocytes % % Neutrophils # (Manual) (1.3-7.7) k/uL Lymphocytes # (Manual) (1.0-4.8) k/uL Monocytes # (Manual) (0-1.0) k/uL Basophils # (Manual) (0-0.2) k/uL Metamyelocytes # (Man) (0) k/uL Myelocytes # (Manual) (0) k/uL Nucleated RBCs (0-0) /100 WBC Manual Slide Review Hypochromasia PT (9.0-12.0) sec INR (<1.2) APTT (22.0-30.0) sec Sodium 137 (137-145) mmol/L Potassium 4.7 (3.5-5.1) mmol/L Chloride 106 (98-107) mmol/L Carbon Dioxide 20 L (22-30) mmol/L Anion Gap 11 mmol/L BUN 38 H (7-17) mg/dL Creatinine 3.00 H (0.52-1.04) mg/dL Est GFR (CKD-EPI)AfAm 17 (>60 ml/min/1.73 sqM) Est GFR (CKD-EPI)NonAf 15 (>60 ml/min/1.73 sqM) Glucose 203 H (74-99) mg/dL POC Glucose (mg/dL) (70-110) mg/dL POC Glu Regional Program Manager ID Lactic Ac Sepsis Rflx Plasma Lactic Acid David 3.3 H* (0.7-2.0) mmol/L Calcium 8.7 (8.4-10.2) mg/dL Total Bilirubin 0.6 (0.2-1.3) mg/dL AST 51 H (14-36) U/L ALT 16 (4-34) U/L Alkaline Phosphatase 97 (38-126) U/L Troponin I 10.100 H* (0.000-0.034) ng/mL Total Protein 5.8 L (6.3-8.2) g/dL Albumin 3.5 (3.5-5.0) g/dL 11/23/ Range/Units 22:19 WBC (3.8-10.6) k/uL RBC (3.80-5.40) m/uL Hgb (11.4-16.0) gm/dL Hct (34.0-46.0) % MCV (80.0-100.0) fL MCH (25.0-35.0) pg MCHC (31.0-37.0) g/dL RDW (11.5-15.5) % Plt Count (150-450) k/uL MPV Neutrophils % (Manual) % Band Neuts % (Manual) % Lymphocytes % (Manual) % Monocytes % (Manual) % Basophils % (Manual) % Metamyelocytes % % Myelocytes % % Neutrophils # (Manual) (1.3-7.7) k/uL Lymphocytes # (Manual) (1.0-4.8) k/uL Monocytes # (Manual) (0-1.0) k/uL Basophils # (Manual) (0-0.2) k/uL Metamyelocytes # (Man) (0) k/uL Myelocytes # (Manual) (0) k/uL Nucleated RBCs (0-0) /100 WBC Manual Slide Review Hypochromasia PT (9.0-12.0) sec INR (<1.2) APTT (22.0-30.0) sec Sodium (137-145) mmol/L Potassium (3.5-5.1) mmol/L Chloride (98-107) mmol/L Carbon Dioxide (22-30) mmol/L Anion Gap mmol/L BUN (7-17) mg/dL Creatinine (0.52-1.04) mg/dL Est GFR (CKD-EPI)AfAm (>60 ml/min/1.73 sqM) Est GFR (CKD-EPI)NonAf (>60 ml/min/1.73 sqM) Glucose (74-99) mg/dL POC Glucose (mg/dL) (70-110) mg/dL POC Glu Regional Program Manager ID Lactic Ac Sepsis Rflx Y Plasma Lactic Acid David (0.7-2.0) mmol/L Calcium (8.4-10.2) mg/dL Total Bilirubin (0.2-1.3) mg/dL AST (14-36) U/L ALT (4-34) U/L Alkaline Phosphatase (38-126) U/L Troponin I (0.000-0.034) ng/mL Total Protein (6.3-8.2) g/dL Albumin (3.5-5.0) g/dL - EKG Data EKG Comments: EKG shows a sinus tachycardia at 105 bpm with biphasic T wave V2 with additional ST and T-wave changes in inferior and lateral leads. DE 186, QRS 100, QT/QTC 372/433. (Evan Manning) Disposition Time of Disposition: 23:50 <Evan Manning - Last Filed: 11/24/22 17:13> <Brianna Gutiérrez - Last Filed: 11/29/22 23:01> Clinical Impression: Sepsis, Pneumonia, Ischemia, JONES (acute kidney injury) Disposition: ADMITTED IP TO THIS HOSP Condition: Poor
[2022-11-23 21:39] LABS: Glucose,Whole Blood 252 mg/dL (70-110)
--- NOTE | 2022-11-23 22:00 | CT ---
EXAMINATION TYPE: CT brain wo con DATE OF EXAM: 11/23/2022 COMPARISON: 10/27/2021 HISTORY: 72-year-old female confusion, AMS, increased weakness TECHNIQUE: Examination was done in axial plane without intravenous contrast. Coronal and sagittal r econstructions performed. CT DLP: 1129.6 mGycm Automated exposure control for dose reduction was used. FINDINGS: There is no evidence of acute intracranial hemorrhage, acute ischemic changes, mass, mass-effect, or extra-axial fluid collection. There is no effacement of cerebral sulci or basal subarachnoid cister ns. There is no hydrocephalus. There is no midline shift. Saleem-white matter distinction is preserv ed. Old lacunar infarcts left basal ganglia and and bilateral caudate heads. Mild generalized supratentor ial volume loss. Atherosclerotic calcifications within the bilateral carotid siphons. Benign hyperostosis frontalis interna. Leftward nasal septal deviation. Paranasal sinuses and mastoid air cells are well pneumatized. Orbits and globes are intact. IMPRESSION: Mild generalized atrophy. Old lacunar infarcts in the caudate heads and left basal ganglia. No acute intracranial abnormality seen.
--- NOTE | 2022-11-23 22:01 | XR ---
EXAMINATION TYPE: XR chest 2V DATE OF EXAM: 11/23/2022 COMPARISON: 10/27/2021 HISTORY: 72-year-old female confusion, altered mental status TECHNIQUE: AP and lateral views FINDINGS: Heart borderline enlarged. Prominent patchy bibasilar areas of airspace disease especially posteriorl y on the lateral view. No sizable pleural effusion. IMPRESSION: Bibasilar airspace disease. Correlate for potential etiologies including infectious or aspiration pne umonitis.
[2022-11-23 22:17] LABS: ALT 16 U/L (4-34); AST 51 U/L (14-36); African American GFR (CKD) 17 (>60 ml/min/1.73 sqM); Albumin 3.5 g/dL (3.5-5.0); Alkaline Phosphatase 97 U/L (38-126); Anion Gap 11 mmol/L; Blood Urea Nitrogen 38 mg/dL (7-17); Calcium 8.7 mg/dL (8.4-10.2); Carbon Dioxide 20 mmol/L (22-30); Chloride 106 mmol/L (98-107); Glucose 203 mg/dL (74-99); Non-African American GFR(CKD) 15 (>60 ml/min/1.73 sqM); Potassium 4.7 mmol/L (3.5-5.1); Sodium 137 mmol/L (137-145); Total Bilirubin 0.6 mg/dL (0.2-1.3); Total Protein 5.8 g/dL (6.3-8.2)
[2022-11-23 22:19] LABS: INR 1.1 (<1.2); Prothrombin Time 11.4 sec (9.0-12.0)
[2022-11-23 22:26] LABS: HCT 35.5 % (34.0-46.0); HGB 10.5 gm/dL (11.4-16.0); Hypochromasia Marked; MCH 26.6 pg (25.0-35.0); MCHC 29.5 g/dL (31.0-37.0); MCV 90.2 fL (80.0-100.0); Mean Platelet Volume 10.4; Platelet Count 195 k/uL (150-450); RBC 3.93 m/uL (3.80-5.40); RDW 14.9 % (11.5-15.5); WBC 18.6 k/uL (3.8-10.6)
[2022-11-23 22:52] LABS: Band Neutrophils % 11 %; Basophils # (M) 0.19 k/uL (0-0.2); Lymphocytes # (M) 1.49 k/uL (1.0-4.8); Metamyelocytes # (M) 0.56 k/uL (0); Metamyelocytes % 3 %; Monocytes # (M) 1.12 k/uL (0-1.0); Myelocytes # (M) 0.19 k/uL (0); Myelocytes % 1 %; Neutrophils % (M) 72 %; Nucleated Red Blood Cells 0 /100 WBC (0-0); Total Cells Counted 200
[2022-11-23] MEDS ORDERED: SODIUM CHLORIDE 0.9% 1,000 ML IV STA (23:04)
[2022-11-24] MEDS: AZITHROMYCIN 500 MG in SODIUM CHLORIDE 0.9% 250 ML IVPB SCH (00:30)
[2022-11-24] MEDS: HEPARIN SOD,PORK IN 0.45% NACL 25,000 UNIT in 0.45% NACL 1 250ML.BAG IV SCH (00:30)
[2022-11-24] MEDS ORDERED: HEPARIN SODIUM 1,000 UN/ML (10ML VL) IV PRN ×3 (05:53→12:32)
[2022-11-24] MEDS ORDERED: HEPARIN SODIUM 1,000 UN/ML (10ML VL) IV ONE (05:53)
[2022-11-24] MEDS ORDERED: NALOXONE 0.4 MG/ML 1 ML VIAL IV PRN (05:55)
[2022-11-24] MEDS: SODIUM CHLORIDE 0.9% 1,000 ML IV SCH ×3 (06:00→16:20)
[2022-11-24] MEDS ORDERED: ASPIRIN 81 MG PO STA (06:12)
[2022-11-24] MEDS ORDERED: ATORVASTATIN 80 MG TAB PO STA (06:12)
--- NOTE | 2022-11-24 06:15 | P.HPIM ---
History of Present Illness H&P Date: 11/23/22 The patient is a 72-year-old female with a PMH of kidney transplant, type II DM, hypertension, and hyperlipidemia who was brought into the emergency room by family with complaints of weakness and confusion. The patient was a poor historian in light of the confusion and thereby history supplemented from the ED provider and from the chart. The patient reports that she's been feeling somewhat ill over the past 3-4 days. She reports a cough productive of brownish phlegm as well as occasional shortness of breath. She denied urinary complaints. Denied experiencing chest discomfort. Denied nausea, vomiting, abdominal pain, diarrhea. In the emergency room upon presentation, the patient's pulse was 109 with temp 99.3, SpO2 97% on room air, BP 180/106. Laboratory evaluation revealed leukocyt osis of 18.6, troponin 10.10, hemoglobin 10.5 (similar to baseline), BUN 38, creatinine 3.0 (baseline), lactic acid 3.3. CT brain was unremarkable. Chest x-ray revealed bibasilar opacities consistent with pneumonia. EKG had revealed sinus tachycardia with T-wave inversion in leads II, III, aVF, V4-V6. ED documentation reviewed and case discussed with ED provider. Review of systems: Pertinent positives and negatives as discussed in HPI, a complete review of systems was performed and all other systems are negative. Physical examination: Vital signs reviewed General: non toxic, no distress, appears at stated age, normal weight Derm: no unusual rashes/lesions, warm Head: atraumatic, normocephalic, symmetric Eyes: EOMI, no lid lag, anicteric sclera, pupils equal round reactive to light ENT: Nose and ears atraumatic Neck: No cervical lymphadenopathy, trachea midline, supple Mouth: no lip lesion, mucus membranes moist Cardiovascular: S1S2 reg, no murmur, positive dorsalis pedis pulse bilateral, no edema Lungs: Bilateral coarse breath sounds, no accessory muscle use Abdominal: soft, nontender to palpation, no guarding Ext: muscle strength 5 out of 5 in all 4 extremities grossly, no gross muscle atrophy, no contractures, Neuro: CN II-XI grossly intact, no gross focal neuro deficits Psych: Alert, oriented, appropriate affect Assessment: Severe sepsis suspected secondary to community acquired pneumonia Non-ST elevation [place] Chronic conditions: Status post kidney transplant, type II DM, hypertension, hyperlipidemia Imaging: CT brain was unremarkable. Chest x-ray revealed bibasilar opacities consistent with pneumonia. EKG had revealed sinus tachycardia with T-wave inversion in leads II, III, aVF, V4-V6. Data Review: In the emergency room upon presentation, the patient's pulse was 109 with temp 99.3, SpO2 97% on room air, BP 180/106. Laboratory evaluation revealed leukocytosis of 18.6, troponin 10.10, hemoglobin 10.5 (similar to baseline), BUN 38, creatinine 3.0 (baseline), lactic acid 3.3. Plan: Continue ceftriaxone and azithromycin Follow-up blood cultures S/p IVFs bolus NS 1 L C/w IVFs NS 130 mL/hr Continue with heparin infusion (initiated during downtime, case was reportedly discussed by the ED provider with cardiology who are aware of the patient) Aspirin and Lipitor initiated Cardiology consulted Cardiac monitoring Repeat troponin 6.56 UA ordered Continue with home medications once reconciled DVT prophylaxis: Heparin infusion The patient is admitted with an anticipated greater than 2 midnight stay for evaluation of sepsis CODE STATUS: Full Code Discussed with: Patient Anticipated discharge place: Home Past Medical History Past Medical History: No Reported History, Asthma, Diabetes Mellitus, Dialysis, Eye Disorder, Hyperlipidemia, Hypertension, Renal Disease, Skin Disorder Additional Past Medical History / Comment(s): history of covid, IDDM type II, neuropathy bilateral legs/feet, ESRD with past peritoneal/hemodialysis then in 2016 had renal transplant, UTI with sepsis, IBS, benign colon polyps, chronic low back pain, migraines, R eye retinal bleed with injections, L eye detached retina with surgery, anemia. 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 History of Any Multi-Drug Resistant Organisms: ESBL Date of last positivie culture/infection: 2011 approx(PREVIOUSLY CHARTED) MDRO Source:: peritoneal dialysis cath Past Surgical History: Cholecystectomy, Hysterectomy, Orthopedic Surgery Additional Past Surgical History / Comment(s): Peritoneal dialysis cath since removed, hemodialysis cath since removed, 2016 renal transplant, EGD, colonoscopies/benign polypectomy, bilateral eye cataract removals, L eye detached retinal surgery, L knee arthroscopy Past Anesthesia/Blood Transfusion Reactions: No Reported Reaction Additional Past Anesthesia/Blood Transfusion Reaction / Comment(s): has had a hard time coming out of anesthesia Past Psychological History: No Psychological Hx Reported Smoking Status: Former smoker Past Alcohol Use History: None Reported Past Drug Use History: None Reported - Past Family History Mother History Unknown: Yes Additional Family Medical History / Comment(s): Mother of poisoning when pt was 11 yrs old. Father Family Medical History: Vascular Disorder Additional Family Medical History / Comment(s): brain aneurysm Medications and Allergies Home Medications Medication Instructions Recorded Confirmed Type Tacrolimus [Prograf] 6 mg PO DAILY 07/26/16 01/19/22 History Albuterol Nebulized [Ventolin 2.5 mg INHALATION RT-Q4H PRN 08/11/16 01/19/22 History Nebulized] Atorvastatin Calcium [Lipitor] 10 mg PO HS 08/11/16 01/19/22 History Sodium Bicarbonate Tab 1,300 mg PO TID 08/11/16 01/19/22 History amLODIPine [Norvasc] 10 mg PO DAILY 08/11/16 01/19/22 History predniSONE 5 mg PO DAILY 08/25/17 01/19/22 History Tacrolimus [Prograf] 5 mg PO HS 06/01/18 01/19/22 History Insulin Glargine,Hum.rec.anlog 35 unit SQ HS 04/18/20 01/19/22 History [Lantus Solostar Pen] Losartan Potassium 100 mg PO DAILY 04/18/20 01/19/22 History Insulin Lispro [humaLOG Kwikpen] See Protocol SQ AC-TID 04/25/20 01/19/22 His tory Mycophenolate Sodium [Mycophenolic 360 mg PO BID 04/25/20 01/19/22 History Acid] Ergocalciferol [Vitamin D2 (1250 1,250 mcg PO PARRISH 10/27/21 01/19/22 History Mcg = 75363 Iu)] Famotidine 40 mg PO DAILY 10/27/21 01/19/22 History Furosemide [Lasix] 40 mg PO DAILY PRN 10/27/21 01/19/22 History Lidocaine 5% Patch [Lidoderm] 1 patch TRANSDERM DAILY PRN 10/27/21 01/19/22 History Loperamide HCl [Imodium A-D] 2 mg PO TID PRN 10/27/21 01/19/22 History carvediloL [Coreg] 25 mg PO BID 10/27/21 01/19/22 History hydrALAZINE HCL [Apresoline] 75 mg PO TID 10/27/21 01/19/22 History Cephalexin [Keflex] 500 mg PO Q8HR 1 Days #3 cap 10/30/21 01/19/22 Rx Magnesium Carb,Citrate,Oxide 300 mg PO DAILY #30 tablet 10/30/21 01/19/22 Rx [Magnesium Complex] Nystatin 100,000 Unit/gm Powd 1 applic TOPICAL BID 14 Days #60 gm 01/19/22 Rx [Mycostatin Powder] Allergies Allergy/AdvReac Type Severity Reaction Status Date / Time hydralazine [From Apresoline] Allergy Rash/Hives Verified 01/19/22 09:10 Iodinated Contrast Media Allergy Unknown Verified 01/19/22 09:10 [Iodinated Contrast- Oral and IV Dye] meperidine [From Demerol] Allergy Anaphylaxis Verified 01/19/22 09:10 Physical Exam Vitals: Vital Signs Temp Pulse Resp BP Pulse Ox 11/23/22 22:00 109 H 18 116/80 97 11/23/22 20:31 188/106 11/23/22 20:29 99.3 F 109 H 22 97 Intake and Output 11/23/22 11/23/22 11/24/22 14:59 22:59 06:59 Other: Weight 86.183 kg Results CBC & Chem 7: 11/23/22 21:47 11/23/22 21:47 Labs: Abnormal Lab Results - Last 24 Hours (Table) 11/23/22 11/23/22 11/23/22 Range/Units 21:37 21:47 21:47 WBC 18.6 H (3.8-10.6) k/uL Hgb 10.5 L (11.4-16.0) gm/dL MCHC 29.5 L (31.0-37.0) g/dL Neutrophils # (Manual) 15.40 H (1.3-7.7) k/uL Monocytes # (Manual) 1.12 H (0-1.0) k/uL Metamyelocytes # (Man) 0.56 H (0) k/uL Myelocytes # (Manual) 0.19 H (0) k/uL Carbon Dioxide 20 L (22-30) mmol/L BUN 38 H (7-17) mg/dL Creatinine 3.00 H (0.52-1.04) mg/dL Glucose 203 H (74-99) mg/dL POC Glucose (mg/dL) 252 H (70-110) mg/dL Plasma Lactic Acid David (0.7-2.0) mmol/L AST 51 H (14-36) U/L Troponin I (0.000-0.034) ng/mL Total Protein 5.8 L (6.3-8.2) g/dL 11/23/22 11/23/22 Range/Units 21:47 21:47 WBC (3.8-10.6) k/uL Hgb (11.4-16.0) gm/dL MCHC (31.0-37.0) g/dL Neutrophils # (Manual) (1.3-7.7) k/uL Monocytes # (Manual) (0-1.0) k/uL Metamyelocytes # (Man) (0) k/uL Myelocytes # (Manual) (0) k/uL Carbon Dioxide (22-30) mmol/L BUN (7-17) mg/dL Creatinine (0.52-1.04) mg/dL Glucose (74-99) mg/dL POC Glucose (mg/dL) (70-110) mg/dL Plasma Lactic Acid David 3.3 H* (0.7-2.0) mmol/L AST (14-36) U/L Troponin I 10.100 H* (0.000-0.034) ng/mL Total Protein (6.3-8.2) g/dL
[2022-11-24] MEDS ORDERED: DEXTROSE 50% SYRINGE 50 ML IVP PRN ×2 (11:35)
--- NOTE | 2022-11-24 11:44 | P.PN ---
Subjective Progress Note Date: 11/24/22 Hospital Course: 72-year-old female with a PMH of kidney transplant, type II DM, hypertension, and hyperlipidemia who was brought into the emergency room by family with complaints of weakness and confusion. In the emergency room upon presentation, the patient's pulse was 109 with temp 99.3, SpO2 97% on room air, BP 180/106. Laboratory evaluation revealed leukocytosis of 18.6, troponin 10.10, hemoglobin 10.5 (similar to baseline), BUN 38, creatinine 3.0 (baseline), lactic acid 3.3. CT brain was unremarkable. Chest x-ray revealed bibasilar opacities consistent with pneumonia. EKG had revealed sinus tachycardia with T-wave inversion in leads II, III, aVF, V4-V6. Patient admitted for severe sepsis as well as non-ST elevation PA. Currently on IV antibiotics and heparin drip. Also has acute kidney injury. Cardiology and nephrology consulted. Subjective: Patient seen and examined at bedside. bedside sitter in place. Still has significant confusion. Complaining of mild left-sided abdominal pain. Denies any bowel complaints. Pertinent positives and negatives as discussed above, a complete review of systems was performed and all other systems are negative. Vitals Signs Reviewed. General: nontoxic, in mild distress, appears at stated age Derm: warm, dry Head: atraumatic, normocephalic, symmetric Eyes: EOMI, no lid lag, anicteric sclera Mouth: no lip lesion, mucus membranes moist Cardiovascular: S1S2 reg, tachycardic, no murmur Lungs: CTA bilateral, no rhonchi, no rales , no accessory muscle use Abdominal: soft, mildly tender to palpation in left lower quadrant, no guarding, no appreciable organomegaly Ext: no gross muscle atrophy, no edema, no contractures Neuro: CN II-XI grossly intact, no focal neuro deficits Psych: Alert, oriented, appropriate affect Data Reviewed Today: Pertinent Labs: Troponin down trending to 6.56, lactic acid 3.3 Imaging: EKG independently interpreted, shows significant ST-T wave changes and inferior and lateral leads. Assessment and Plan: Active: Severe sepsis likely secondary to community-acquired pneumonia, possible abdominal etiology as well given abdominal pain Non-ST elevation PA Acute kidney injury, history of renal transplant, on chronic prednisone Lactic acidosis Insulin-dependent type 2 diabetes, hyperglycemia History of hypertension -Still has tachycardia -On IV fluids -Continue ceftriaxone and azithromycin -CT abdomen and pelvis without contrast ordered -Repeat lactate -Blood cultures pending -procal ordered -On heparin drip, monitor for any active bleeding -Cardiology and nephrology consulted -Sliding scale insulin, continue home glargine -Holding amlodipine and JUSTIN inhibitor in the setting of sepsis and JONES -Can continue carvedilol for now -Oral prednisone may need to be changed to IV stress dose steroids Chronic: Dyslipidemia DVT ppx: heparin gtt Code status: Full code Anticipated discharge place: pending clinical course Anticipated discharge time: pending clinical course Objective - Vital Signs Vital signs: Vital Signs Temp 99.3 F 11/23/22 20:29 Pulse 105 H 11/24/22 06:00 Resp 20 11/24/22 06:00 BP 145/71 11/24/22 06:00 Pulse Ox 98 11/24/22 06:00 FiO2 Intake & Output 11/23/22 11/24/22 11/24/22 18:59 06:59 18:59 Weight 86.183 kg - Labs CBC & Chem 7: 11/23/22 21:47 11/23/22 21:47 Labs: Abnormal Lab Results - Last 24 Hours (Table) 11/23/22 11/23/22 11/23/22 Range/Units 21:37 21:47 21:47 WBC 18.6 H (3.8-10.6) k/uL Hgb 10.5 L (11.4-16.0) gm/dL MCHC 29.5 L (31.0-37.0) g/dL Neutrophils # (Manual) 15.40 H (1.3-7.7) k/uL Monocytes # (Manual) 1.12 H (0-1.0) k/uL Metamyelocytes # (Man) 0.56 H (0) k/uL Myelocytes # (Manual) 0.19 H (0) k/uL Carbon Dioxide 20 L (22-30) mmol/L BUN 38 H (7-17) mg/dL Creatinine 3.00 H (0.52-1.04) mg/dL Glucose 203 H (74-99) mg/dL POC Glucose (mg/dL) 252 H (70-110) mg/dL Plasma Lactic Acid David (0.7-2.0) mmol/L AST 51 H (14-36) U/L Troponin I (0.000-0.034) ng/mL Total Protein 5.8 L (6.3-8.2) g/dL 11/23/22 11/23/22 11/24/22 Range/Units 21:47 21:47 00:15 WBC (3.8-10.6) k/uL Hgb (11.4-16.0) gm/dL MCHC (31.0-37.0) g/dL Neutrophils # (Manual) (1.3-7.7) k/uL Monocytes # (Manual) (0-1.0) k/uL Metamyelocytes # (Man) (0) k/uL Myelocytes # (Manual) (0) k/uL Carbon Dioxide (22-30) mmol/L BUN (7-17) mg/dL Creatinine (0.52-1.04) mg/dL Glucose (74-99) mg/dL POC Glucose (mg/dL) (70-110) mg/dL Plasma Lactic Acid David 3.3 H* (0.7-2.0) mmol/L AST (14-36) U/L Troponin I 10.100 H* 8.280 H* (0.000-0.034) ng/mL Total Protein (6.3-8.2) g/dL 11/24/22 Range/Units 03:47 WBC (3.8-10.6) k/uL Hgb (11.4-16.0) gm/dL MCHC (31.0-37.0) g/dL Neutrophils # (Manual) (1.3-7.7) k/uL Monocytes # (Manual) (0-1.0) k/uL Metamyelocytes # (Man) (0) k/uL Myelocytes # (Manual) (0) k/uL Carbon Dioxide (22-30) mmol/L BUN (7-17) mg/dL Creatinine (0.52-1.04) mg/dL Glucose (74-99) mg/dL POC Glucose (mg/dL) (70-110) mg/dL Plasma Lactic Acid David (0.7-2.0) mmol/L AST (14-36) U/L Troponin I 6.560 H* (0.000-0.034) ng/mL Total Protein (6.3-8.2) g/dL
[2022-11-24 11:51] LABS: Glucose,Whole Blood 172 mg/dL (70-110)
[2022-11-24 12:06] LABS: INR 1.3 (<1.2); Partial Thromboplastin Time 23.7 sec (22.0-30.0); Prothrombin Time 12.8 sec (9.0-12.0)
[2022-11-24 12:21] LABS: Amorphous Sediment,Urine Occasional /hpf; Appearance,Urine Cloudy (Clear); Bacteria,Urine Rare /hpf; Bilirubin,Urine Negative (Negative); Blood,Urine Small (Negative); Color,Urine Yellow; Glucose,Urine (UA) Trace (Negative); Ketones,Urine Negative (Negative); Leukocyte Esterase,Urine Trace (Negative); Mucus,Urine Rare /hpf; Nitrite,Urine Negative (Negative); Protein,Urine 3+ (Negative); Specific Gravity,Urine 1.016 (1.001-1.035); Squamous Epithelial Cell,Urine <1 /hpf (0-4); Urobilinogen,Urine <2.0 mg/dL (<2.0); WBC,Urine 5 /hpf (0-5)
[2022-11-24 12:27] LABS: Basophils # (A) 0.1 k/uL (0-0.2); Basophils % (A) 0 %; Eosinophils # (A) 0.1 k/uL (0-0.7); Eosinophils % (A) 0 %; HCT 32.7 % (34.0-46.0); HGB 9.6 gm/dL (11.4-16.0); Hypochromasia Marked; Lymphocytes # (A) 0.9 k/uL (1.0-4.8); Lymphocytes % (A) 4 %; MCHC 29.4 g/dL (31.0-37.0); Mean Platelet Volume 12.2; Monocytes % (A) 5 %; Neutrophils # (A) 19.8 k/uL (1.3-7.7); Neutrophils % (A) 90 %; RBC 3.44 m/uL (3.80-5.40); RDW 14.8 % (11.5-15.5)
[2022-11-24 12:28] LABS: MCV 95.2 fL (80.0-100.0); Platelet Count 170 k/uL (150-450)
--- NOTE | 2022-11-24 14:09 | CT ---
EXAMINATION TYPE: CT ChestAbdPelvis wo con DATE OF EXAM: 11/24/2022 COMPARISON: Abdomen pelvis 07/07/2021 HISTORY: 72-year-old female Sepsis and pain TECHNIQUE: Contiguous axial scanning of the chest, abdomen, and pelvis without IV contrast. Coronal a nd sagittal reconstructions performed. CT DLP: 997.4 mGycm Automated exposure control for dose reduction was used. FINDINGS: Chest: Generalized anasarca change. Heart mildly enlarged with extensive coronary artery calcifications. No thoracic lymphadenopathy by CT size criteria. Exam is overall limited by prominent motion. There is background mild emphysema. Extensive breathing motion limiting the exam. Patchy groundglass change in the mid lungs and more confluent patchy airspace disease in the lower lungs. No pleural eff usion. ABDOMEN: Motion limited exam. Generalized anasarca change. Cholecystectomy clips. Otherwise, noncontrast assessment of the liver, adrenal glands, spleen, and pa ncreas show no gross abnormality. Atrophic bilateral kidneys. No dilated small bowel, free fluid, or free air. No mesenteric or retroperitoneal lymphadenopathy see n. There is a right lower quadrant transplant kidney. Normal appendix. Mild stool within the right side of the colon. No significant stool burden. Left-sided colonic diverticulosis, extensive in the sigmoi d colon. No pericolonic inflammatory change. Pelvis: Bladder urine distended. Numerous pelvic phleboliths. There is some pelvic floor relaxation. Suspect bilateral calcified ovaries. No abnormal fluid collection in the pelvis or pelvic lymphadenopathy. BONES: * Mild degenerative change of the hips. * Osteopenia. * Severe disc/endplate degenerative change with grade 1 retrolisthesis T12-L1. * Also moderate to severe disc/endplate degenerative change at T10-T11. Some possible disc interspac e widening and paravertebral soft tissue swelling has developed at this level, sagittal image 65. * Superior endplate deformity L4. * Grade 1 anterolisthesis L3-L4 and L4-L5. * DISH throughout the mid and lower thoracic spine extending down to the T11 level. IMPRESSION: 1. EXTENSIVE PATCHY AND CONFLUENT AIRSPACE DISEASE WITHIN THE MID AND LOWER LUNGS. CORRELATE FOR INFE CTIOUS OR ASPIRATION PNEUMONITIS. BACKGROUND COPD WITH MILD EMPHYSEMA. 2. RIGHT LOWER QUADRANT TRANSPLANT KIDNEY AND ATROPHIC BILATERAL [place] KIDNEYS. 3. MODERATE TO SEVERE disc/endplate degenerative change at T10-T11. Some possible disc interspace wid ening and paravertebral soft tissue swelling has developed at this level. If there is focal pain here , consider MRI without and with contrast to exclude discitis osteomyelitis. 4. Generalized anasarca change. Correlate for third spacing. Left-sided colonic diverticulosis.
--- NOTE | 2022-11-24 14:12 | P.CRDCN ---
History of Present Illness Consult date: 11/24/22 History of present illness: History of present illness: This is a 72-year-old female patient of Dr. Whyte with past medical history of diabetes, hypertension, dyslipidemia, aortic insufficiency, chronic kidney disease status post kidney transplant. Patient was last seen in the office January 2022. At that time a stress test and echocardiogram were to be obtained. Patient presented to the emergency center due to altered mental status. Patient is currently oriented to self only. She does deny having any chest pain, no lightheadedness or dizziness. No shortness of breath. She does complain of abdominal pain in the mid and right side. She admits to a little bi t of vomiting and diarrhea. Not sure if this is accurate due to patient's confusion. EKG sinus tachycardia 105 bpm Chest x-ray: Bibasilar airspace disease. Correlate for infectious or aspiration pneumonitis. CAT scan of the brain revealed mild generalized atrophy. Old lacunar infarcts in the caudate heads and left basal ganglia. No acute intracranial abnormality. WBC 22, hemoglobin 9.6. INR 1.3. Sodium 137, potassium 4.7, chloride 106, CO2 20, BUN 38 creatinine 3. Troponin 10.1, 8.2, 6.56, 6.34. Home cardiac medications: Amlodipine 10 mg daily, aspirin 81 mg daily, Lipitor 10 mg at bedtime, Coreg 25 mg twice daily, Lasix 40 mg daily as needed, losartan 100 mg daily. Lexiscan stress test 05/2022 was nondiagnostic in response to Lexiscan. Abnormal perfusion imaging with evidence of fixed defect of large size and severe intensity involving the inferior lateral segment of the left ventricle associated with hypokinesia and representing prior DC. No evidence of any stress-induced ischemia. Normal left ventricular systolic function. Echocardiogram 05/2022 revealed normal LV size and function with EF of 55%. Mild left ventricular hypertrophy. Severely dilated left atrium. Mild AR, mild MR, mild TR. Normal PAS P 19 mmHg. Review Of Systems: At the time of my evaluation: Constitutional: No fever, no chills. No weakness, fatigue or lethargy. EENT: No headache. No dizziness. Lungs: No shortness of breath, cough, no sputum production. No wheezing. Cardiovascular: No chest pain, no lower extremity edema. No palpitations. No paroxysmal nocturnal dyspnea. No orthopnea. No lightheadedness or dizziness. No syncopal episodes. Abdominal: Reports abdominal pain. Reports nausea, reports vomiting. Reports diarrhea. Musculoskeletal: No myalgias. Noted muscle weakness, unknown if frequent falls. No back pain. No neck pain. Integumentary: No wounds. No rash. No unusual bruising. Neurologic: No aphasia. No facial droop. Noted change in mentation. No head inj ury. No headache. Physical examination: Gen: This is a 72-year-old black female. She is resting on the ER stretcher. She appears to be in no acute distress. VS: reviewed HEENT: Head is atraumatic, normocephalic. Pupils equal, round. Sclerae is anicteric. NECK: Supple. No JVD. LUNGS: Clear to auscultation. No wheezes or rhonchi. No intercostal retractions. HEART: Regular rate and rhythm. Systolic murmur. ABDOMEN: Soft right-sided abdominal tenderness. EXTREMITIES: No pedal edema. No calf tenderness. Dorsalis pedis +1 bilaterally NEUROLOGICAL: Patient is awake, alert and oriented to person. Assessment: Elevated troponin, non-ST elevated myocardial infarction Metabolic encephalopathy of unclear etiology Leukocytosis Lactic acidosis Acute kidney injury Diabetes Hypertension Dyslipidemia Aortic insufficiency Chronic kidney disease status post kidney transplant Plan: Resume patient's home cardiac medications Obtain 2-D echocardiogram and Doppler study to assess cardiac structure and function No aggressive cardiac workup at this time until patient's mental status and renal function are improved Further recommendations to follow based upon clinical course Thank you kindly for this consultation. Nurse practitioner note has been reviewed, I agree with documented findings and plan of care. Patient was seen and examined. Past Medical History Past Medical History: No Reported History, Asthma, Diabetes Mellitus, Dialysis, Eye Disorder, Hyperlipidemia, Hypertension, Renal Disease, Skin Disorder Additional Past Medical History / Comment(s): history of covid, IDDM type II, neuropathy bilateral legs/feet, ESRD with past peritoneal/hemodialysis then in 2016 had renal transplant, UTI with sepsis, IBS, benign colon polyps, chronic low back pain, migraines, R eye retinal bleed with injections, L eye detached retina with surgery, anemia. 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 History of Any Multi-Drug Resistant Organisms: ESBL Date of last positivie culture/infection: 2011 approx(PREVIOUSLY CHARTED) MDRO Source:: peritoneal dialysis cath Past Surgical History: Cholecystectomy, Hysterectomy, Orthopedic Surgery Additional Past Surgical History / Comment(s): Peritoneal dialysis cath since removed, hemodialysis cath since removed, 2016 renal transplant, EGD, colonoscop ies/benign polypectomy, bilateral eye cataract removals, L eye detached retinal surgery, L knee arthroscopy Past Anesthesia/Blood Transfusion Reactions: No Reported Reaction Additional Past Anesthesia/Blood Transfusion Reaction / Comment(s): has had a hard time coming out of anesthesia Past Psychological History: No Psychological Hx Reported Smoking Status: Former smoker Past Alcohol Use History: None Reported Past Drug Use History: None Reported - Past Family History Mother History Unknown: Yes Additional Family Medical History / Comment(s): Mother of poisoning when pt was 11 yrs old. Father Family Medical History: Vascular Disorder Additional Family Medical History / Comment(s): brain aneurysm Medications and Allergies Home Medications Medication Instructions Recorded Confirmed Type Tacrolimus [Prograf] 5 mg PO DAILY 07/26/16 11/24/22 History Atorvastatin Calcium [Lipitor] 10 mg PO HS 08/11/16 11/24/22 History Sodium Bicarbonate Tab 1,300 mg PO TID 08/11/16 11/24/22 History amLODIPine [Norvasc] 10 mg PO DAILY 08/11/16 11/24/22 History predniSONE 5 mg PO DAILY 08/25/17 11/24/22 History Tacrolimus [Prograf] 4 mg PO HS 06/01/18 11/24/22 History Insulin Glargine,Hum.rec.anlog 35 unit SQ HS 04/18/20 11/24/22 History [Lantus Solostar Pen] Losartan Potassium 100 mg PO DAILY 04/18/20 11/24/22 History Insulin Lispro [humaLOG Kwikpen] See Protocol SQ AC-TID 04/25/20 11/24/22 History Mycophenolate Sodium [Mycophenolic 360 mg PO BID 04/25/20 11/24/22 History Acid] Ergocalciferol [Vitamin D2 (1250 1,250 mcg PO Q7D 10/27/21 11/24/22 History Mcg = 80915 Iu)] Famotidine 40 mg PO DAILY 10/27/21 11/24/22 History Furosemide [Lasix] 40 mg PO DAILY PRN 10/27/21 11/24/22 History carvediloL [Coreg] 25 mg PO BID 10/27/21 11/24/22 History Albuterol Inhaler [Ventolin Hfa 2 puff INHALATION RT-DAILY 11/24/22 11/24/22 History Inhaler] Aspirin EC [Ecotrin Low Dose] 81 mg PO DAILY 11/24/22 11/24/22 History Diphenox-Atrop 2.5-0.025 mg 1 tab PO TID PRN 11/24/22 11/24/22 History [Lomotil] Docusate [Colace] 100 mg PO DAILY PRN 11/24/22 11/24/22 History Gentamicin 0.1% Cream 1 applic TOPICAL DAILY 11/24/22 11/24/22 History Ketoconazole 2% Cream [Nizoral 2%] 1 applic TOPICAL DAILY PRN 11/24/22 11/24/22 History Sodium Zirconium Cyclosilicate 10 gm PO DAILY 11/24/22 11/24/22 History [Lokelma] Thiamine [Vitamin B-1] 250 mg PO BID 11/24/22 11/24/22 History traMADol HCL 50 - 100 mg PO Q6H PRN 11/24/22 11/24/22 History Allergies Allergy/AdvReac Type Severity Reaction Status Date / Time hydralazine [From Apresoline] Allergy Rash/Hives Verified 11/24/22 10:36 Iodinated Contrast Media Allergy Unknown Verified 11/24/22 10:36 [Iodinated Contrast- Oral and IV Dye] meperidine [From Demerol] Allergy Anaphylaxis Verified 11/24/22 10:36 Physical Exam Vitals: Vital Signs Temp Pulse Resp BP Pulse Ox 11/24/22 12:00 104 H 18 178/95 11/24/22 06:00 105 H 20 145/71 98 11/23/22 22:00 109 H 18 116/80 97 11/23/22 20:31 188/106 11/23/22 20:29 99.3 F 109 H 22 97 Intake and Output 11/23/22 11/24/22 11/24/22 22:59 06:59 14:59 Intake Total 122.208 Balance 122.208 Intake: Intake, IV Titration 122.208 Amount Heparin Sod,Pork in 0.45% 122.208 NaCl 25,000 unit In 0.45 % NaCl 1 250ml.bag @ 12 UNITS/KG/HR 10.342 mls/hr IV .Q24H [facility] Rx#: [id number] Other: Weight 86.183 kg Results 11/25/22 04:00 11/25/22 04:00 Cardiac Enzymes 11/23/22 11/23/22 11/24/22 Range/Units 21:47 21:47 00:15 AST 51 H (14-36) U/L Troponin I 10.100 H* 8.280 H* (0.000-0.034) ng/mL 11/24/22 11/24/22 Range/Units 03:47 11:18 AST (14-36) U/L Troponin I 6.560 H* 6.340 H* (0.000-0.034) ng/mL Coagulation 11/23/22 11/24/22 Range/Units 21:47 11:18 PT 11.4 12.8 H (9.0-12.0) sec APTT 27.0 23.7 (22.0-30.0) sec CBC 11/23/22 11/24/22 Range/Units 21:47 11:18 WBC 18.6 H 22.0 H (3.8-10.6) k/uL RBC 3.93 3.44 L (3.80-5.40) m/uL Hgb 10.5 L 9.6 L (11.4-16.0) gm/dL Hct 35.5 32.7 L (34.0-46.0) % Plt Count 195 170 (150-450) k/uL Comprehensive Metabolic Panel 11/23/22 Range/Units 21:47 Sodium 137 (137-145) mmol/L Potassium 4.7 (3.5-5.1) mmol/L Chloride 106 (98-107) mmol/L Carbon Dioxide 20 L (22-30) mmol/L BUN 38 H (7-17) mg/dL Creatinine 3.00 H (0.52-1.04) mg/dL Glucose 203 H (74-99) mg/dL Calcium 8.7 (8.4-10.2) mg/dL AST 51 H (14-36) U/L ALT 16 (4-34) U/L Alkaline Phosphatase 97 (38-126) U/L Total Protein 5.8 L (6.3-8.2) g/dL Albumin 3.5 (3.5-5.0) g/dL Current Medications Generic Name Dose Route Start Last Admin Trade Name Freq PRN Reason Stop Dose Admin Acetaminophen 650 mg 11/24/22 01:00 Acetaminophen Tab 325 Mg Tab PO Q6H PRN PAIN SCALE 1-4 OR FEVER > 101 Albuterol Sulfate 2 puff 11/25/22 08:00 Albuterol Hfa Inhaler INHALATION RT-DAILY [facility] Aspirin 81 mg 11/25/22 09:00 Aspirin 81 Mg PO DAILY [facility] Atorvastatin Calcium 80 mg 11/24/22 21:00 Atorvastatin 80 Mg Tab PO HS [facility] Carvedilol 25 mg 11/24/22 21:00 Carvedilol 12.5 Mg Tab PO BID [facility] Dextrose/Water 25 ml 11/24/22 11:35 Dextrose 50% Syringe 50 Ml IVP PER PROTOCOL PRN Hypoglycemia Protocol Dextrose/Water 50 ml 11/24/22 11:35 Dextrose 50% Syringe 50 Ml IVP PER PROTOCOL PRN Hypoglycemia Protocol Famotidine 40 mg 11/25/22 09:00 Famotidine 20 Mg Tab PO DAILY [facility] Heparin Sodium (Porcine) 0 - 4,000 unit 11/24/22 12:32 11/24/22 12:33 Heparin Sodium 1,000 Un/Ml (10ml Vl) IV 4,000 unit PER PROTOCOL PRN Administration Low PTT Protocol Azithromycin 500 mg/ Sodium 250 mls @ 250 mls/hr 11/24/22 00:00 11/24/22 00:30 Chloride IVPB 11/26/22 00:59 250 mls/hr Q24H [facility] Administration Ceftriaxone Sodium 2 gm/ 50 mls @ 100 mls/hr 11/24/22 01:00 11/24/22 00:30 Sodium Chloride IVPB 100 mls/hr Q24H [facility] Administration Sodium Chloride 1,000 mls @ 130 mls/hr 11/24/22 01:00 11/24/22 09:04 Saline 0.9% IV 130 mls/hr .Q7H42M [facility] Administration Heparin Sodium/Sodium Chloride 250 mls @ 10.342 mls/hr 11/24/22 06:00 11/24/22 12:19 25,000 unit/ Sodium Chloride IV 15 units/kg/hr .Q24H [facility] 12.927 mls/hr Titration Protocol 12 UNITS/KG/HR Insulin Aspart 0 unit 11/24/22 12:30 Insulin Aspart (Novolog) 100 Unit/Ml Vial SQ ACHS [facility] Protocol Insulin Detemir 35 unit 11/24/22 21:00 Insulin Detemir (Levemir) 100 Unit/Ml Syr SQ HS [facility] Mycophenolate Sodium 360 mg 11/24/22 21:[address] 180 Mg Tablet.Dr PO BID [facility] Naloxone HCl 0.2 mg 11/24/22 05:55 Naloxone 0.4 Mg/Ml 1 Ml Vial IV Q2M PRN Opioid Reversal Prednisone 5 mg 11/25/22 09:00 Prednisone 5 Mg Tab PO DAILY [facility] Sodium Bicarbonate 1,300 mg 11/24/22 16:00 Sodium Bicarbonate Tab 650 Mg Tab PO TID [facility] Tacrolimus 5 mg 11/25/22 09:00 Tacrolimus 1 Mg Cap PO DAILY [facility] Tacrolimus 4 mg 11/24/22 21:00 Tacrolimus 1 Mg Cap PO HS [facility] Thiamine HCl 250 mg 11/24/22 21:00 Thiamine 100 Mg Tab PO BID [facility] Intake and Output 11/23/22 11/24/22 11/24/22 22:59 06:59 14:59 Intake Total 122.208 Balance 122.208 Intake: Intake, IV Titration 122.208 Amount Heparin Sod,Pork in 0.45% 122.208 NaCl 25,000 unit In 0.45 % NaCl 1 250ml.bag @ 12 UNITS/KG/HR 10.342 mls/hr IV .Q24H [facility] Rx#: [id number] Other: Weight 86.183 kg 11/24/22 11:18 11/23/22 21:47
[2022-11-24] MEDS: INSULIN ASPART (NovoLOG) 100 UNIT/ML VIAL SQ SCH ×3 (15:42→21:07)
[2022-11-24 16:32] LABS: Glucose,Whole Blood 132 mg/dL (70-110)
[2022-11-24] MEDS: SODIUM BICARBONATE TAB 650 MG TAB PO SCH ×2 (16:39→21:34)
[2022-11-24] MEDS: carvediloL 12.5 MG TAB PO SCH (16:40)
[2022-11-24] MEDS: ACETAMINOPHEN TAB 325 MG TAB PO PRN (16:41)
[2022-11-24 20:00] LABS: Glucose,Whole Blood 110 mg/dL (70-110)
--- NOTE | 2022-11-24 20:23 | P.CONS ---
History of Present Illness - Reason for Consult Consult date: 11/24/22 - History of Present Illness Patient is a 72-year-old -Filipino female with a past medical history significant for diabetes mellitus hypertension hyperlipidemia history of end- stage renal disease in this patient with status post renal transplant on immunosuppressive medication presenting to the hospital for evaluation of weakness and confusion apparently patient has not been feeling well for the last 3 to 4 days and the patient was complaining of cough with some brownish sputum and associated shortness of breath no clear history of nausea vomiting abdominal pain or any diarrhea patient of presentation to the hospital did have a low- grade fever of 99.3 F patient was tachycardic but not hypotensive or hypoxic and no need for supplemental oxygen patient did have elevated lactic acid white count of 18.6 with a left shift troponin elevated did have elevated BUN/creatinine AST mildly elevated 51 urine has been negative patient did have a chest x-ray bibasilar airspace disease correlate for potential etiologies including infection or aspiration pneumonitis patient also have a CT of the chest abdominal pelvis without IV contrast extensive patchy uncontrolled airspace disease within the mid and lower lungs correlate for aspiration pneumonitis right lower quadrant transplant kidney moderate to severe disc endplate degenerative changes T10-T11 some paravertebral soft tissue swelling consideration for possible discitis osteomyelitis patient is currently being treated with the Rocephin and Zithromax infectious disease was consulted concerning for pneumonia and also possible discitis of the thoracic spine area patient currently is not a very good historian so most information has been extracted from review the chart and talking nursing staff Past Medical History Past Medical History: No Reported History, Asthma, Diabetes Mellitus, Dialysis, Eye Disorder, Hyperlipidemia, Hypertension, Renal Disease, Skin Disorder Additional Past Medical History / Comment(s): history of covid, IDDM type II, neuropathy bilateral legs/feet, ESRD with past peritoneal/hemodialysis then in 2016 had renal transplant, UTI with sepsis, IBS, benign colon polyps, chronic low back pain, migraines, R eye retinal bleed with injections, L eye detached retina with surgery, anemia. 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 History of Any Multi-Drug Resistant Organisms: ESBL Year Discovered:: 2011 approx(PREVIOUSLY CHARTED) MDRO Source:: peritoneal dialysis cath Past Surgical History: Cholecystectomy, Hysterectomy, Orthopedic Surgery Additional Past Surgical History / Comment(s): Peritoneal dialysis cath since removed, hemodialysis cath since removed, 2016 renal transplant, EGD, colonoscopies/benign polypectomy, bilateral eye cataract removals, L eye detached retinal surgery, L knee arthroscopy Past Anesthesia/Blood Transfusion Reactions: No Reported Reaction Additional Past Anesthesia/Blood Transfusion Reaction / Comm: has had a hard time coming out of anesthesia Past Psychological History: No Psychological Hx Reported Smoking Status: Former smoker Past Alcohol Use History: None Reported Past Drug Use History: None Reported - Past Family History Mother History Unknown: Yes Additional Family Medical History / Comment(s): Mother of poisoning when pt was 11 yrs old. Father Family Medical History: Vascular Disorder Additional Family Medical History / Comment(s): brain aneurysm Medications and Allergies Home Medications Medication Instructions Recorded Confirmed Type Tacrolimus [Prograf] 5 mg PO DAILY 07/26/16 11/24/22 History Atorvastatin Calcium [Lipitor] 10 mg PO HS 08/11/16 11/24/22 History Sodium Bicarbonate Tab 1,300 mg PO TID 08/11/16 11/24/22 History amLODIPine [Norvasc] 10 mg PO DAILY 08/11/16 11/24/22 History predniSONE 5 mg PO DAILY 08/25/17 11/24/22 History Tacrolimus [Prograf] 4 mg PO HS 06/01/18 11/24/22 History Insulin Glargine,Hum.rec.anlog 35 unit SQ HS 04/18/20 11/24/22 History [Lantus Solostar Pen] Losartan Potassium 100 mg PO DAILY 04/18/20 11/24/22 History Insulin Lispro [humaLOG Kwikpen] See Protocol SQ AC-TID 04/25/20 11/24/22 History Mycophenolate Sodium [Mycophenolic 360 mg PO BID 04/25/20 11/24/22 History Acid] Ergocalciferol [Vitamin D2 (1250 1,250 mcg PO Q7D 10/27/21 11/24/22 History Mcg = 97318 Iu)] Famotidine 40 mg PO DAILY 10/27/21 11/24/22 History Furosemide [Lasix] 40 mg PO DAILY PRN 10/27/21 11/24/22 History carvediloL [Coreg] 25 mg PO BID 10/27/21 11/24/22 History Albuterol Inhaler [Ventolin Hfa 2 puff INHALATION RT-DAILY 11/24/22 11/24/22 History Inhaler] Aspirin EC [Ecotrin Low Dose] 81 mg PO DAILY 11/24/22 11/24/22 History Diphenox-Atrop 2.5-0.025 mg 1 tab PO TID PRN 11/24/22 11/24/22 History [Lomotil] Docusate [Colace] 100 mg PO DAILY PRN 11/24/22 11/24/22 History Gentamicin 0.1% Cream 1 applic TOPICAL DAILY 11/24/22 11/24/22 History Ketoconazole 2% Cream [Nizoral 2%] 1 applic TOPICAL DAILY PRN 11/24/22 11/24/22 History Sodium Zirconium Cyclosilicate 10 gm PO DAILY 11/24/22 11/24/22 History [Lokelma] Thiamine [Vitamin B-1] 250 mg PO BID 11/24/22 11/24/22 History traMADol HCL 50 - 100 mg PO Q6H PRN 11/24/22 11/24/22 History Allergies Allergy/AdvReac Type Severity Reaction Status Date / Time hydralazine [From Apresoline] Allergy Rash/Hives Verified 11/24/22 10:36 Iodinated Contrast Media Allergy Unknown Verified 11/24/22 10:36 [Iodinated Contrast- Oral and IV Dye] meperidine [From Demerol] Allergy Anaphylaxis Verified 11/24/22 10:36 Physical Exam Vitals: Vital Signs Temp Pulse Resp BP Pulse Ox 11/24/22 12:00 104 H 18 178/95 11/24/22 06:00 105 H 20 145/71 98 11/23/22 22:00 109 H 18 116/80 97 11/23/22 20:31 188/106 11/23/22 20:29 99.3 F 109 H 22 97 Intake and Output 11/24/22 11/24/22 11/24/22 06:59 14:59 22:59 Intake Total 122.208 Balance 122.208 Intake: Intake, IV Titration 122.208 Amount Heparin Sod,Pork in 0.45% 122.208 NaCl 25,000 unit In 0.45 % NaCl 1 250ml.bag @ 12 UNITS/KG/HR 10.342 mls/hr IV .Q24H [facility] Rx#: [id number] Results CBC & Chem 7: 11/24/22 11:18 06/20/23 21:47 Labs: Abnormal Lab Results - Last 24 Hours (Table) 11/23/22 11/23/22 11/23/22 Range/Units 21:37 21:47 21:47 WBC 18.6 H (3.8-10.6) k/uL RBC (3.80-5.40) m/uL Hgb 10.5 L (11.4-16.0) gm/dL Hct (34.0-46.0) % MCHC 29.5 L (31.0-37.0) g/dL Neutrophils # (1.3-7.7) k/uL Neutrophils # (Manual) 15.40 H (1.3-7.7) k/uL Lymphocytes # (1.0-4.8) k/uL Monocytes # (Manual) 1.12 H (0-1.0) k/uL Metamyelocytes # (Man) 0.56 H (0) k/uL Myelocytes # (Manual) 0.19 H (0) k/uL PT (9.0-12.0) sec INR (<1.2) Carbon Dioxide 20 L (22-30) mmol/L BUN 38 H (7-17) mg/dL Creatinine 3.00 H (0.52-1.04) mg/dL Glucose 203 H (74-99) mg/dL POC Glucose (mg/dL) 252 H (70-110) mg/dL Plasma Lactic Acid David (0.7-2.0) mmol/L AST 51 H (14-36) U/L Troponin I (0.000-0.034) ng/mL Total Protein 5.8 L (6.3-8.2) g/dL Urine Appearance (Clear) Urine Protein (Negative) Urine Glucose (UA) (Negative) Urine Blood (Negative) Ur Leukocyte Esterase (Negative) Amorphous Sediment (None) /hpf Urine Bacteria (None) /hpf Urine Mucus (None) /hpf 11/23/22 11/23/22 11/24/22 Range/Units 21:47 21:47 00:15 WBC (3.8-10.6) k/uL RBC (3.80-5.40) m/uL Hgb (11.4-16.0) gm/dL Hct (34.0-46.0) % MCHC (31.0-37.0) g/dL Neutrophils # (1.3-7.7) k/uL Neutrophils # (Manual) (1.3-7.7) k/uL Lymphocytes # (1.0-4.8) k/uL Monocytes # (Manual) (0-1.0) k/uL Metamyelocytes # (Man) (0) k/uL Myelocytes # (Manual) (0) k/uL PT (9.0-12.0) sec INR (<1.2) Carbon Dioxide (22-30) mmol/L BUN (7-17) mg/dL Creatinine (0.52-1.04) mg/dL Glucose (74-99) mg/dL POC Glucose (mg/dL) (70-110) mg/dL Plasma Lactic Acid David 3.3 H* (0.7-2.0) mmol/L AST (14-36) U/L Troponin I 10.100 H* 8.280 H* (0.000-0.034) ng/mL Total Protein (6.3-8.2) g/dL Urine Appearance (Clear) Urine Protein (Negative) Urine Glucose (UA) (Negative) Urine Blood (Negative) Ur Leukocyte Esterase (Negative) Amorphous Sediment (None) /hpf Urine Bacteria (None) /hpf Urine Mucus (None) /hpf 11/24/22 11/24/22 11/24/22 Range/Units 03:47 06:00 11:18 WBC (3.8-10.6) k/uL RBC (3.80-5.40) m/uL Hgb (11.4-16.0) gm/dL Hct (34.0-46.0) % MCHC (31.0-37.0) g/dL Neutrophils # (1.3-7.7) k/uL Neutrophils # (Manual) (1.3-7.7) k/uL Lymphocytes # (1.0-4.8) k/uL Monocytes # (Manual) (0-1.0) k/uL Metamyelocytes # (Man) (0) k/uL Myelocytes # (Manual) (0) k/uL PT (9.0-12.0) sec INR (<1.2) Carbon Dioxide (22-30) mmol/L BUN (7-17) mg/dL Creatinine (0.52-1.04) mg/dL Glucose (74-99) mg/dL POC Glucose (mg/dL) (70-110) mg/dL Plasma Lactic Acid David 2.5 H* (0.7-2.0) mmol/L AST (14-36) U/L Troponin I 6.560 H* (0.000-0.034) ng/mL Total Protein (6.3-8.2) g/dL Urine Appearance Cloudy H (Clear) Urine Protein 3+ H (Negative) Urine Glucose (UA) Trace H (Negative) Urine Blood Small H (Negative) Ur Leukocyte Esterase Trace H (Negative) Amorphous Sediment Occasional H (None) /hpf Urine Bacteria Rare H (None) /hpf Urine Mucus Rare H (None) /hpf 11/24/22 11/24/22 11/24/22 Range/Units 11:18 11:18 11:18 WBC 22.0 H (3.8-10.6) k/uL RBC 3.44 L (3.80-5.40) m/uL Hgb 9.6 L (11.4-16.0) gm/dL Hct 32.7 L (34.0-46.0) % MCHC 29.4 L (31.0-37.0) g/dL Neutrophils # 19.8 H (1.3-7.7) k/uL Neutrophils # (Manual) (1.3-7.7) k/uL Lymphocytes # 0.9 L (1.0-4.8) k/uL Monocytes # (Manual) (0-1.0) k/uL Metamyelocytes # (Man) (0) k/uL Myelocytes # (Manual) (0) k/uL PT 12.8 H (9.0-12.0) sec INR 1.3 H (<1.2) Carbon Dioxide (22-30) mmol/L BUN (7-17) mg/dL Creatinine (0.52-1.04) mg/dL Glucose (74-99) mg/dL POC Glucose (mg/dL) (70-110) mg/dL Plasma Lactic Acid David (0.7-2.0) mmol/L AST (14-36) U/L Troponin I 6.340 H* (0.000-0.034) ng/mL Total Protein (6.3-8.2) g/dL Urine Appearance (Clear) Urine Protein (Negative) Urine Glucose (UA) (Negative) Urine Blood (Negative) Ur Leukocyte Esterase (Negative) Amorphous Sediment (None) /hpf Urine Bacteria (None) /hpf Urine Mucus (None) /hpf 11/24/22 11/24/22 11/24/22 Range/Units 11:50 14:25 16:30 WBC (3.8-10.6) k/uL RBC (3.80-5.40) m/uL Hgb (11.4-16.0) gm/dL Hct (34.0-46.0) % MCHC (31.0-37.0) g/dL Neutrophils # (1.3-7.7) k/uL Neutrophils # (Manual) (1.3-7.7) k/uL Lymphocytes # (1.0-4.8) k/uL Monocytes # (Manual) (0-1.0) k/uL Metamyelocytes # (Man) (0) k/uL Myelocytes # (Manual) (0) k/uL PT (9.0-12.0) sec INR (<1.2) Carbon Dioxide (22-30) mmol/L BUN (7-17) mg/dL Creatinine (0.52-1.04) mg/dL Glucose (74-99) mg/dL POC Glucose (mg/dL) 172 H 132 H (70-110) mg/dL Plasma Lactic Acid David 2.5 H* (0.7-2.0) mmol/L AST (14-36) U/L Troponin I (0.000-0.034) ng/mL Total Protein (6.3-8.2) g/dL Urine Appearance (Clear) Urine Protein (Negative) Urine Glucose (UA) (Negative) Urine Blood (Negative) Ur Leukocyte Esterase (Negative) Amorphous Sediment (None) /hpf Urine Bacteria (None) /hpf Urine Mucus (None) /hpf Assessment and Plan Plan: 1patient presented to hospital with not feeling well shortness of breath and cough with evidence of pneumonia on the chest x-ray as well as a CT with concern for possible pneumonia and likely community-acquired resistant gram-negative not entirely excluded 2-patient also have abnormality of the thoracic spine on the CT with a question of discitis however patient was not very good historian and did not answer any question regarding back pain CT will be reviewed with radiologist we will check inflammatory markers if elevated patient benefit from MRI with contrast for better definition of underlying pathology however keeping in mind her elevated creatinine we will have to wait for improvement in the kidney function before o rdering the MRI 3-we will check a CRP sed rate and a procalcitonin 4-continue with the Rocephin and Zithromax We will follow on clinical condition and cultures to further adjust medication if needed Thank you for this consultation we will follow the patient along with you Time with Patient: Greater than 30
[2022-11-24] MEDS: INSULIN DETEMIR (LEVEMIR) 100 UNIT/ML SYR SQ SCH (21:07)
[2022-11-24] MEDS: THIAMINE 100 MG TAB PO SCH (21:33)
[2022-11-24] MEDS: ATORVASTATIN 80 MG TAB PO SCH (21:34)
[2022-11-24] MEDS: MYCOPHENOLATE SODIUM DR 180 MG TABLET.DR PO SCH (21:34)
[2022-11-24] MEDS: TACROLIMUS 1 MG CAP PO SCH (21:35)
[2022-11-25] MEDS: AZITHROMYCIN 500 MG in SODIUM CHLORIDE 0.9% 250 ML IVPB SCH ×2 (00:39→23:09)
[2022-11-25] MEDS: HEPARIN SOD,PORK IN 0.45% NACL 25,000 UNIT in 0.45% NACL 1 250ML.BAG IV SCH (00:39)
[2022-11-25] MEDS: SODIUM CHLORIDE 0.9% 1,000 ML IV SCH ×2 (00:43→06:09)
[2022-11-25] MEDS ORDERED: ONDANSETRON 4 MG/2 ML VIAL IVP STA (01:22)
[2022-11-25 04:15] LABS: Basophils % (A) 0 %; Eosinophils # (A) 0.2 k/uL (0-0.7); Eosinophils % (A) 1 %; HCT 28.8 % (34.0-46.0); HGB 8.8 gm/dL (11.4-16.0); Hypochromasia Marked; Lymphocytes # (A) 0.9 k/uL (1.0-4.8); Lymphocytes % (A) 4 %; MCHC 30.4 g/dL (31.0-37.0); MCV 91.9 fL (80.0-100.0); Mean Platelet Volume 9.1; Monocytes # (A) 0.8 k/uL (0-1.0); Monocytes % (A) 4 %; Neutrophils # (A) 19.1 k/uL (1.3-7.7); Neutrophils % (A) 90 %; Platelet Count 181 k/uL (150-450); RBC 3.13 m/uL (3.80-5.40); RDW 14.8 % (11.5-15.5); WBC 21.3 k/uL (3.8-10.6)
[2022-11-25 04:37] LABS: INR 1.2 (<1.2); Prothrombin Time 12.1 sec (9.0-12.0)
[2022-11-25 04:55] LABS: Erythrocyte Sedimentation Rate 43 mm/hr (0-20)
[2022-11-25 04:56] LABS: African American GFR (CKD) 16 (>60 ml/min/1.73 sqM); Anion Gap 10 mmol/L; Non-African American GFR(CKD) 14 (>60 ml/min/1.73 sqM)
[2022-11-25] MEDS: INSULIN ASPART (NovoLOG) 100 UNIT/ML VIAL SQ SCH ×4 (06:09→21:53)
[2022-11-25 06:14] LABS: Glucose,Whole Blood 97 mg/dL (70-110)
[2022-11-25 06:21] LABS: ALT 13 U/L (4-34); AST 35 U/L (14-36); Albumin 2.5 g/dL (3.5-5.0); Alkaline Phosphatase 97 U/L (38-126); Blood Urea Nitrogen 46 mg/dL (7-17); Carbon Dioxide 17 mmol/L (22-30); Chloride 109 mmol/L (98-107); Glucose 98 mg/dL (74-99); Potassium 4.2 mmol/L (3.5-5.1); Sodium 136 mmol/L (137-145); Total Bilirubin 0.3 mg/dL (0.2-1.3); Total Protein 4.6 g/dL (6.3-8.2)
[2022-11-25 07:25] LABS: C Reactive Protein 27.5 mg/dL (<1.0)
[2022-11-25] MEDS: ALBUTEROL HFA INHALER INHALATION SCH (08:40)
--- NOTE | 2022-11-25 10:15 | P.NPCON ---
History of Present Illness - Reason for Consult acute renal failure, chronic renal failure - History of Present Illness Reason for consultation: Acute allograft dysfunction and chronic kidney disease History of present illness: Patient is a 72-year-old female seen in renal consultation for acute allograft dysfunction and chronic kidney disease. Patient received a donor renal allograft in July 2015. Underlying etiology is diabetic kidney disease. 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 Patient's creatinine as of 11/16/2022 was 2.3. This admission he was 3.0 and is fairly stable at 3.12 today. Patient is not a very reliable historian and is not sure why she came to the hospital. It is noted in the chart that she was brought to the hospital due to altered mental status. She denies any chest pain or shortness of breath at this time. Patient is being followed by cardiology for non-ST elevated myocardial infarction and is on heparin drip. She is also receiving antibiotics for presumed pneumonia. Her white count is elevated at 21.3. She did have a fever of 99.9F this admission. She denies gross hematuria or dysuria. No vomiting or diarrhea. She is maintained on prednisone, tacrolimus as well as mycophenolate for antirejection meds. I don't see any nonsteroidals in her home medication list. She denies any cardiac stenting in the past. Vital signs are stable. General: No acute distress. HEENT: Head exam is unremarkable. LUNGS: No audible rhonchi or wheezes. HEART: Rate and Rhythm are regular. ABDOMEN: Nontender. EXTREMITITES: No edema. Past Medical History Past Medical History: No Reported History, Asthma, Diabetes Mellitus, Dialysis, Eye Disorder, Hyperlipidemia, Hypertension, Renal Disease, Skin Disorder Additional Past Medical History / Comment(s): history of covid, IDDM type II, neuropathy bilateral legs/feet, ESRD with past peritoneal/hemodialysis then in 2016 had renal transplant, UTI with sepsis, IBS, benign colon polyps, chronic low back pain, migraines, R eye retinal bleed with injections, L eye detached retina with surgery, anemia. 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 History of Any Multi-Drug Resistant Organisms: ESBL Date of last positivie culture/infection: 2011 approx(PREVIOUSLY CHARTED) MDRO Source:: peritoneal dialysis cath Past Surgical History: Cholecystectomy, Hysterectomy, Orthopedic Surgery Additional Past Surgical History / Comment(s): Peritoneal dialysis cath since removed, hemodialysis cath since removed, 2016 renal transplant, EGD, colonoscopies/benign polypectomy, bilateral eye cataract removals, L eye detached retinal surgery, L knee arthroscopy Past Anesthesia/Blood Transfusion Reactions: No Reported Reaction Additional Past Anesthesia/Blood Transfusion Reaction / Comment(s): has had a hard time coming out of anesthesia Past Psychological History: No Psychological Hx Reported Smoking Status: Former smoker Past Alcohol Use History: None Reported Past Drug Use History: None Reported - Past Family History Mother History Unknown: Yes Additional Family Medical History / Comment(s): Mother of poisoning when pt was 11 yrs old. Father Family Medical History: Vascular Disorder Additional Family Medical History / Comment(s): brain aneurysm Medications and Allergies Home Medications Medication Instructions Recorded Confirmed Type Tacrolimus [Prograf] 5 mg PO DAILY 07/26/16 11/24/22 History Atorvastatin Calcium [Lipitor] 10 mg PO HS 08/11/16 11/24/22 History Sodium Bicarbonate Tab 1,300 mg PO TID 08/11/16 11/24/22 History amLODIPine [Norvasc] 10 mg PO DAILY 08/11/16 11/24/22 History predniSONE 5 mg PO DAILY 08/25/17 11/24/22 History Tacrolimus [Prograf] 4 mg PO HS 06/01/18 11/24/22 History Insulin Glargine,Hum.rec.anlog 35 unit SQ HS 04/18/20 11/24/22 History [Lantus Solostar Pen] Losartan Potassium 100 mg PO DAILY 04/18/20 11/24/22 History Insulin Lispro [humaLOG Kwikpen] See Protocol SQ AC-TID 04/25/20 11/24/22 History Mycophenolate Sodium [Mycophenolic 360 mg PO BID 04/25/20 11/24/22 History Acid] Ergocalciferol [Vitamin D2 (1250 1,250 mcg PO Q7D 10/27/21 11/24/22 History Mcg = 61200 Iu)] Famotidine 40 mg PO DAILY 10/27/21 11/24/22 History Furosemide [Lasix] 40 mg PO DAILY PRN 10/27/21 11/24/22 History carvediloL [Coreg] 25 mg PO BID 10/27/21 11/24/22 History Albuterol Inhaler [Ventolin Hfa 2 puff INHALATION RT-DAILY 11/24/22 11/24/22 History Inhaler] Aspirin EC [Ecotrin Low Dose] 81 mg PO DAILY 11/24/22 11/24/22 History Diphenox-Atrop 2.5-0.025 mg 1 tab PO TID PRN 11/24/22 11/24/22 History [Lomotil] Docusate [Colace] 100 mg PO DAILY PRN 11/24/22 11/24/22 History Gentamicin 0.1% Cream 1 applic TOPICAL DAILY 11/24/22 11/24/22 History Ketoconazole 2% Cream [Nizoral 2%] 1 applic TOPICAL DAILY PRN 11/24/22 11/24/22 History Sodium Zirconium Cyclosilicate 10 gm PO DAILY 11/24/22 11/24/22 History [Lokelma] Thiamine [Vitamin B-1] 250 mg PO BID 11/24/22 11/24/22 History traMADol HCL 50 - 100 mg PO Q6H PRN 11/24/22 11/24/22 History Allergies Allergy/AdvReac Type Severity Reaction Status Date / Time hydralazine [From Apresoline] Allergy Rash/Hives Verified 11/24/22 10:36 Iodinated Contrast Media Allergy Unknown Verified 11/24/22 10:36 [Iodinated Contrast- Oral and IV Dye] meperidine [From Demerol] Allergy Anaphylaxis Verified 11/24/22 10:36 Physical Exam Vitals: Vital Signs Temp Pulse Pulse Resp BP BP BP 11/25/22 08:00 99.6 F 86 16 166/72 11/25/22 04:00 99.9 F H 88 20 160/74 11/25/22 00:00 99.0 F 82 20 160/74 11/24/22 20:00 98.7 F 83 20 159/71 11/24/22 15:55 99.4 F 102 H 20 167/80 11/24/22 12:00 104 H 18 178/95 Pulse Ox 11/25/22 08:00 97 11/25/22 04:00 98 11/25/22 00:00 98 11/24/22 20:00 98 11/24/22 15:55 97 11/24/22 12:00 Intake and Output 06/21/23 06/22/23 06/22/23 22:59 06:59 14:59 Intake Total 127.792 44.816 Balance 127.792 44.816 Intake: Intake, IV Titration 127.792 44.816 Amount Heparin Sod,Pork in 0.45% 127.792 44.816 NaCl 25,000 unit In 0.45 % NaCl 1 250ml.bag @ 12 UNITS/KG/HR 10.342 mls/hr IV .Q24H [facility] Rx#: [id number] Other: Voiding Method Diaper Diaper # Voids 2 2 Weight 86.183 kg Results - Lab Results Most recent lab results Calcium 8.0 mg/dL (8.4-10.2) L 11/25/22 04:00 11/25/22 04:00 11/25/22 04:00 Assessment and Plan Plan: Assessment: 1. 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 Creatinine 3.12 today. 2. Pneumonia maintained on antibiotics. ID following. 3. Chronic kidney disease stage IIIB/4 with creatinine 2.3 dated 11/16/2022. Etiology is long-term calcineurin inhibitor use and solitary kidney. 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 4. Metabolic acidosis secondary to acute kidney injury, lactic acidosis and IV fluids. 5. Anemia of chronic kidney disease. Rule out iron deficiency. 6. Diabetes mellitus. 7. NSTEMI maintained on heparin drip. Cardiology following. 8. Hypertension with chronic kidney disease. Plan: Change IV fluids to bicarb drip. Check iron studies. Hold losartan for now. Add when necessary hydralazine. Check tacrolimus level. Maintain home immunosuppressants for now. If no improvement in white count or worsening of sepsis, may need to hold mycophenolate. Avoid nephrotoxins. Continue to monitor renal function and urine output. Thank you for the consultation. I will continue to follow the patient with you during her hospital stay.
[2022-11-25] MEDS: amLODIPine 10 MG TAB PO SCH (10:29)
[2022-11-25] MEDS: carvediloL 12.5 MG TAB PO SCH ×2 (10:29→21:52)
[2022-11-25] MEDS: THIAMINE 100 MG TAB PO SCH ×2 (10:29→21:53)
[2022-11-25] MEDS: FAMOTIDINE 20 MG TAB PO SCH (10:30)
[2022-11-25] MEDS: SODIUM BICARBONATE TAB 650 MG TAB PO SCH ×3 (10:30→21:52)
[2022-11-25] MEDS: ASPIRIN 81 MG PO SCH (10:30)
[2022-11-25] MEDS: MYCOPHENOLATE SODIUM DR 180 MG TABLET.DR PO SCH ×2 (10:36→21:54)
[2022-11-25] MEDS: TACROLIMUS 1 MG CAP PO SCH ×2 (10:37→21:55)
[2022-11-25] MEDS: DEXTROSE 5% IN WATER 1,000 ML with SODIUM BICARB (1 MEQ/ML) 150 ML IV SCH (10:50)
--- NOTE | 2022-11-25 11:24 | P.PN ---
Subjective Progress Note Date: 11/25/22 Hospital Course: 72-year-old female with a PMH of kidney transplant, type II DM, hypertension, and hyperlipidemia who was brought into the emergency room by family with complaints of weakness and confusion. In the emergency room upon presentation, the patient's pulse was 109 with temp 99.3, SpO2 97% on room air, BP 180/106. Laboratory evaluation revealed leukocytosis of 18.6, troponin 10.10, hemoglobin 10.5 (similar to baseline), BUN 38, creatinine 3.0 (baseline), lactic acid 3.3. CT brain was unremarkable. Chest x-ray revealed bibasilar opacities consistent with pneumonia. EKG had revealed sinus tachycardia with T-wave inversion in leads II, III, aVF, V4-V6. Patient admitted for severe sepsis as well as non-ST elevation MA. Currently on IV antibiotics and heparin drip. Also has acute kidney injury. Cardiology and nephrology consulted. Subjective: Patient seen and examined at bedside. Still complaining of left-sided abdominal pain, has mild pain in thoracic spine as well. Denies any chest pain, nausea, vomiting, urinary or bowel complaints. Patient is still confused. Pertinent positives and negatives as discussed above, a complete review of systems was performed and all other systems are negative. Vitals Signs Reviewed. General: nontoxic, in mild distress, appears at stated age Derm: warm, dry Head: atraumatic, normocephalic, symmetric Eyes: EOMI, no lid lag, anicteric sclera Mouth: no lip lesion, mucus membranes moist Cardiovascular: S1S2 reg, tachycardic, no murmur Lungs: CTA bilateral, no rhonchi, no rales , no accessory muscle use Abdominal: soft, mildly tender to palpation in left lower quadrant, no guarding, no appreciable organomegaly Ext: no gross muscle atrophy, no edema, no contractures, tenderness to palpation of thoracic spine Neuro: CN II-XI grossly intact, no focal neuro deficits Psych: Alert, oriented 1, appropriate affect Data Reviewed Today: Pertinent Labs: WBC 21.3, hemoglobin 8.8, ESR 43, APTT 173, sodium 136, bicarb 17, creatinine 3.12, CRP 27.5 Imaging: CT chest, abdomen and pelvis shows extensive patchy and confluent airspace disease within the mid and lower lungs concerning for aspiration, right lower quadrant transplant kidney, moderate severe disc endplate degenerative changes at T10 to T11, possible discitis/osteomyelitis. Assessment and Plan: Active: Acute metabolic encephalopathy Severe sepsis likely secondary to community-acquired pneumonia versus aspiration pneumonia Possible thoracic spine discitis/osteomyelitis Non-ST elevation MA Acute kidney injury , on CKD, likely secondary to acute allograft dysfunction history of renal transplant, on immunosuppressants Metabolic acidosis Insulin-dependent type 2 diabetes, hyperglycemia Hypertension, controlled -Encephalopathy likely in the setting of sepsis and acute on chronic renal failure, CT does not show any acute intracranial abnormalities -Infectious disease following, patient maintained on ceftriaxone and azithromycin -Elevated ESR and CRP, potential source of infection could also be thoracic spine -Blood cultures pending -procal pending -On heparin drip, monitor for any active bleeding -Cardiology following, continue aspirin and statin -Nephrology note reviewed, likely allograft dysfunction in the setting of sepsis, JUSTIN inhibitor discontinued -Continue immunosuppression medications, started on bicarb drip -Sliding scale insulin, continue home glargine -Amlodipine and carvedilol restarted, can consider IV labetalol if high blood pressure Chronic: Dyslipidemia DVT ppx: heparin gtt Code status: Full code Anticipated discharge place: pending clinical course Anticipated discharge time: pending clinical course Objective - Vital Signs Vital signs: Vital Signs Temp 98.6 F 11/25/22 10:56 Pulse 87 11/25/22 10:56 Resp 20 11/25/22 10:56 BP 176/70 11/25/22 10:56 Pulse Ox 96 11/25/22 10:56 FiO2 Intake & Output 11/24/22 11/25/22 11/25/22 18:59 06:59 18:59 Intake Total 122.208 172.608 Balance 122.208 172.608 Weight 86.183 kg Intake: Intake, IV Titration 122.208 172.608 Amount Heparin Sod,Pork in 0.45% 122.208 172.608 NaCl 25,000 unit In 0.45 % NaCl 1 250ml.bag @ 12 UNITS/KG/HR 10.342 mls/hr IV .Q24H [facility] Rx#: [id number] Other: Voiding Method Diaper # Voids 2 - Labs CBC & Chem 7: 11/25/22 04:00 11/25/22 04:00 Labs: Abnormal Lab Results - Last 24 Hours (Table) 11/24/22 11/24/22 11/24/22 Range/Units 06:00 11:18 11:18 WBC 22.0 H (3.8-10.6) k/uL RBC 3.44 L (3.80-5.40) m/uL Hgb 9.6 L (11.4-16.0) gm/dL Hct 32.7 L (34.0-46.0) % MCHC 29.4 L (31.0-37.0) g/dL Neutrophils # 19.8 H (1.3-7.7) k/uL Lymphocytes # 0.9 L (1.0-4.8) k/uL ESR (0-20) mm/hr PT (9.0-12.0) sec INR (<1.2) APTT (22.0-30.0) sec Sodium (137-145) mmol/L Chloride (98-107) mmol/L Carbon Dioxide (22-30) mmol/L BUN (7-17) mg/dL Creatinine (0.52-1.04) mg/dL POC Glucose (mg/dL) (70-110) mg/dL Hemoglobin A1c (<=6.0) % Plasma Lactic Acid David 2.5 H* (0.7-2.0) mmol/L Calcium (8.4-10.2) mg/dL Troponin I (0.000-0.034) ng/mL C-Reactive Protein (<1.0) mg/dL Total Protein (6.3-8.2) g/dL Albumin (3.5-5.0) g/dL Urine Appearance Cloudy H (Clear) Urine Protein 3+ H (Negative) Urine Glucose (UA) Trace H (Negative) Urine Blood Small H (Negative) Ur Leukocyte Esterase Trace H (Negative) Amorphous Sediment Occasional H (None) /hpf Urine Bacteria Rare H (None) /hpf Urine Mucus Rare H (None) /hpf 11/24/22 11/24/22 11/24/22 Range/Units 11:18 11:18 11:50 WBC (3.8-10.6) k/uL RBC (3.80-5.40) m/uL Hgb (11.4-16.0) gm/dL Hct (34.0-46.0) % MCHC (31.0-37.0) g/dL Neutrophils # (1.3-7.7) k/uL Lymphocytes # (1.0-4.8) k/uL ESR (0-20) mm/hr PT 12.8 H (9.0-12.0) sec INR 1.3 H (<1.2) APTT (22.0-30.0) sec Sodium (137-145) mmol/L Chloride (98-107) mmol/L Carbon Dioxide (22-30) mmol/L BUN (7-17) mg/dL Creatinine (0.52-1.04) mg/dL POC Glucose (mg/dL) 172 H (70-110) mg/dL Hemoglobin A1c (<=6.0) % Plasma Lactic Acid David (0.7-2.0) mmol/L Calcium (8.4-10.2) mg/dL Troponin I 6.340 H* (0.000-0.034) ng/mL C-Reactive Protein (<1.0) mg/dL Total Protein (6.3-8.2) g/dL Albumin (3.5-5.0) g/dL Urine Appearance (Clear) Urine Protein (Negative) Urine Glucose (UA) (Negative) Urine Blood (Negative) Ur Leukocyte Esterase (Negative) Amorphous Sediment (None) /hpf Urine Bacteria (None) /hpf Urine Mucus (None) /hpf 11/24/22 11/24/22 11/24/22 Range/Units 14:25 16:30 20:26 WBC (3.8-10.6) k/uL RBC (3.80-5.40) m/uL Hgb (11.4-16.0) gm/dL Hct (34.0-46.0) % MCHC (31.0-37.0) g/dL Neutrophils # (1.3-7.7) k/uL Lymphocytes # (1.0-4.8) k/uL ESR (0-20) mm/hr PT (9.0-12.0) sec INR (<1.2) APTT 99.5 H (22.0-30.0) sec Sodium (137-145) mmol/L Chloride (98-107) mmol/L Carbon Dioxide (22-30) mmol/L BUN (7-17) mg/dL Creatinine (0.52-1.04) mg/dL POC Glucose (mg/dL) 132 H (70-110) mg/dL Hemoglobin A1c (<=6.0) % Plasma Lactic Acid David 2.5 H* (0.7-2.0) mmol/L Calcium (8.4-10.2) mg/dL Troponin I (0.000-0.034) ng/mL C-Reactive Protein (<1.0) mg/dL Total Protein (6.3-8.2) g/dL Albumin (3.5-5.0) g/dL Urine Appearance (Clear) Urine Protein (Negative) Urine Glucose (UA) (Negative) Urine Blood (Negative) Ur Leukocyte Esterase (Negative) Amorphous Sediment (None) /hpf Urine Bacteria (None) /hpf Urine Mucus (None) /hpf 11/25/22 11/25/22 11/25/22 Range/Units 04:00 04:00 04:00 WBC 21.3 H (3.8-10.6) k/uL RBC 3.13 L (3.80-5.40) m/uL Hgb 8.8 L (11.4-16.0) gm/dL Hct 28.8 L (34.0-46.0) % MCHC 30.4 L (31.0-37.0) g/dL Neutrophils # 19.1 H (1.3-7.7) k/uL Lymphocytes # 0.9 L (1.0-4.8) k/uL ESR 43 H (0-20) mm/hr PT (9.0-12.0) sec INR (<1.2) APTT (22.0-30.0) sec Sodium 136 L (137-145) mmol/L Chloride 109 H (98-107) mmol/L Carbon Dioxide 17 L (22-30) mmol/L BUN 46 H (7-17) mg/dL Creatinine 3.12 H (0.52-1.04) mg/dL POC Glucose (mg/dL) (70-110) mg/dL Hemoglobin A1c 6.3 H (<=6.0) % Plasma Lactic Acid David (0.7-2.0) mmol/L Calcium 8.0 L (8.4-10.2) mg/dL Troponin I (0.000-0.034) ng/mL C-Reactive Protein 27.5 H (<1.0) mg/dL Total Protein 4.6 L (6.3-8.2) g/dL Albumin 2.5 L (3.5-5.0) g/dL Urine Appearance (Clear) Urine Protein (Negative) Urine Glucose (UA) (Negative) Urine Blood (Negative) Ur Leukocyte Esterase (Negative) Amorphous Sediment (None) /hpf Urine Bacteria (None) /hpf Urine Mucus (None) /hpf 11/25/22 Range/Units 04:00 WBC (3.8-10.6) k/uL RBC (3.80-5.40) m/uL Hgb (11.4-16.0) gm/dL Hct (34.0-46.0) % MCHC (31.0-37.0) g/dL Neutrophils # (1.3-7.7) k/uL Lymphocytes # (1.0-4.8) k/uL ESR (0-20) mm/hr PT 12.1 H (9.0-12.0) sec INR 1.2 H (<1.2) APTT 173.0 H* (22.0-30.0) sec Sodium (137-145) mmol/L Chloride (98-107) mmol/L Carbon Dioxide (22-30) mmol/L BUN (7-17) mg/dL Creatinine (0.52-1.04) mg/dL POC Glucose (mg/dL) (70-110) mg/dL Hemoglobin A1c (<=6.0) % Plasma Lactic Acid David (0.7-2.0) mmol/L Calcium (8.4-10.2) mg/dL Troponin I (0.000-0.034) ng/mL C-Reactive Protein (<1.0) mg/dL Total Protein (6.3-8.2) g/dL Albumin (3.5-5.0) g/dL Urine Appearance (Clear) Urine Protein (Negative) Urine Glucose (UA) (Negative) Urine Blood (Negative) Ur Leukocyte Esterase (Negative) Amorphous Sediment (None) /hpf Urine Bacteria (None) /hpf Urine Mucus (None) /hpf
--- NOTE | 2022-11-25 11:34 | P.PN ---
Subjective Progress Note Date: 11/25/22 History of present illness: This is a 72-year-old female patient of Dr. Whyte with past medical history of diabetes, hypertension, dyslipidemia, aortic insufficiency, chronic kidney disease status post kidney transplant. Patient was last seen in the office January 2022. At that time a stress test and echocardiogram were to be obtained. Patient presented to the emergency center due to altered mental status. Patient is currently oriented to self only. She does deny having any chest pain, no lightheadedness or dizziness. No shortness of breath. She does complain of abdominal pain in the mid and right side. She admits to a little bit of vomiting and diarrhea. Not sure if this is accurate due to patient's confusion. EKG sinus tachycardia 105 bpm Chest x-ray: Bibasilar airspace disease. Correlate for infectious or aspiration pneumonitis. CAT scan of the brain revealed mild generalized atrophy. Old lacunar infarcts in the caudate heads and left basal ganglia. No acute intracranial abnormality. WBC 22, hemoglobin 9.6. INR 1.3. Sodium 137, potassium 4.7, chloride 106, CO2 20, BUN 38 creatinine 3. Troponin 10.1, 8.2, 6.56, 6.34. Home cardiac medications: Amlodipine 10 mg daily, aspirin 81 mg daily, Lipitor 10 mg at bedtime, Coreg 25 mg twice daily, Lasix 40 mg daily as needed, losartan 100 mg daily. Lexiscan stress test 05/2022 was nondiagnostic in response to Lexiscan. Abnormal perfusion imaging with evidence of fixed defect of large size and severe intensity involving the inferior lateral segment of the left ventricle associated with hypokinesia and representing prior ID. No evidence of any stress-induced ischemia. Normal left ventricular systolic function. Echocardiogram 05/2022 revealed normal LV size and function with EF of 55%. Mild left ventricular hypertrophy. Severely dilated left atrium. Mild AR, mild MR, mild TR. Normal PAS P 19 mmHg. 11/25 She is seen today in follow-up on the cardiac stepdown unit. Patient remains on heparin drip. Her blood pressures remain elevated. 176/70, heart rate is in the 80s. Repeat blood work reveals WBC of 21, hemoglobin 8.8, platelet count 181. Sodium 136, potassium 4.2, chloride 109, CO2 17, BUN 46 creatinine 3.12. C-reactive protein 27.5. Patient denies having any chest pain. No palpitations. Echocardiogram has been obtained and report is pending. Physical examination: Gen: This is a 72-year-old black female. She is resting on the ER stretcher. She appears to be in no acute distress. VS: reviewed HEENT: Head is atraumatic, normocephalic. Pupils equal, round. Sclerae is anicteric. NECK: Supple. No JVD. LUNGS: Clear to auscultation. No wheezes or rhonchi. No intercostal retractions. HEART: Regular rate and rhythm. Systolic murmur. ABDOMEN: Soft right-sided abdominal tenderness. EXTREMITIES: No pedal edema. No calf tenderness. Dorsalis pedis +1 bilaterally NEUROLOGICAL: Patient is awake, alert and oriented to person. Assessment: Elevated troponin, non-ST elevated myocardial infarction Metabolic encephalopathy of unclear etiology Leukocytosis Lactic acidosis Acute kidney injury Diabetes Hypertension Dyslipidemia Aortic insufficiency Chronic kidney disease status post kidney transplant Plan: Resume patient's home cardiac medications Resume amlodipine 10 mg daily If blood pressure remains uncontrolled, recommend increasing Coreg to 37.5 mg twice daily or even up to 50 mg twice daily Obtain 2-D echocardiogram and Doppler report No aggressive cardiac workup to be done at this time. Plan for medical management only. Continue heparin drip another 24 hours Further recommendations to follow based upon clinical course Nurse practitioner note has been reviewed, I agree with documented findings and plan of care. Patient was seen and examined. Objective - Vital Signs Vital signs: Vital Signs Temp 99.6 F 11/25/22 08:00 Pulse 86 11/25/22 08:00 Resp 16 11/25/22 08:00 BP 166/72 11/25/22 08:00 Pulse Ox 97 11/25/22 08:00 FiO2 Intake & Output 11/24/22 11/25/22 11/25/22 18:59 06:59 18:59 Intake Total 122.208 172.608 Balance 122.208 172.608 Weight 86.183 kg Intake: Intake, IV Titration 122.208 172.608 Amount Heparin Sod,Pork in 0.45% 122.208 172.608 NaCl 25,000 unit In 0.45 % NaCl 1 250ml.bag @ 12 UNITS/KG/HR 10.342 mls/hr IV .Q24H [facility] Rx#: [id number] Other: Voiding Method Diaper # Voids 2 - Labs CBC & Chem 7: 11/25/22 04:00 11/25/22 04:00 Labs: Abnormal Lab Results - Last 24 Hours (Table) 11/24/22 11/24/22 11/24/22 Range/Units 06:00 11:18 11:18 WBC 22.0 H (3.8-10.6) k/uL RBC 3.44 L (3.80-5.40) m/uL Hgb 9.6 L (11.4-16.0) gm/dL Hct 32.7 L (34.0-46.0) % MCHC 29.4 L (31.0-37.0) g/dL Neutrophils # 19.8 H (1.3-7.7) k/uL Lymphocytes # 0.9 L (1.0-4.8) k/uL ESR (0-20) mm/hr PT (9.0-12.0) sec INR (<1.2) APTT (22.0-30.0) sec Sodium (137-145) mmol/L Chloride (98-107) mmol/L Carbon Dioxide (22-30) mmol/L BUN (7-17) mg/dL Creatinine (0.52-1.04) mg/dL POC Glucose (mg/dL) (70-110) mg/dL Plasma Lactic Acid David 2.5 H* (0.7-2.0) mmol/L Calcium (8.4-10.2) mg/dL Troponin I (0.000-0.034) ng/mL C-Reactive Protein (<1.0) mg/dL Total Protein (6.3-8.2) g/dL Albumin (3.5-5.0) g/dL Urine Appearance Cloudy H (Clear) Urine Protein 3+ H (Negative) Urine Glucose (UA) Trace H (Negative) Urine Blood Small H (Negative) Ur Leukocyte Esterase Trace H (Negative) Amorphous Sediment Occasional H (None) /hpf Urine Bacteria Rare H (None) /hpf Urine Mucus Rare H (None) /hpf 11/24/22 11/24/22 11/24/22 Range/Units 11:18 11:18 11:50 WBC (3.8-10.6) k/uL RBC (3.80-5.40) m/uL Hgb (11.4-16.0) gm/dL Hct (34.0-46.0) % MCHC (31.0-37.0) g/dL Neutrophils # (1.3-7.7) k/uL Lymphocytes # (1.0-4.8) k/uL ESR (0-20) mm/hr PT 12.8 H (9.0-12.0) sec INR 1.3 H (<1.2) APTT (22.0-30.0) sec Sodium (137-145) mmol/L Chloride (98-107) mmol/L Carbon Dioxide (22-30) mmol/L BUN (7-17) mg/dL Creatinine (0.52-1.04) mg/dL POC Glucose (mg/dL) 172 H (70-110) mg/dL Plasma Lactic Acid David (0.7-2.0) mmol/L Calcium (8.4-10.2) mg/dL Troponin I 6.340 H* (0.000-0.034) ng/mL C-Reactive Protein (<1.0) mg/dL Total Protein (6.3-8.2) g/dL Albumin (3.5-5.0) g/dL Urine Appearance (Clear) Urine Protein (Negative) Urine Glucose (UA) (Negative) Urine Blood (Negative) Ur Leukocyte Esterase (Negative) Amorphous Sediment (None) /hpf Urine Bacteria (None) /hpf Urine Mucus (None) /hpf 11/24/22 11/24/22 11/24/22 Range/Units 14:25 16:30 20:26 WBC (3.8-10.6) k/uL RBC (3.80-5.40) m/uL Hgb (11.4-16.0) gm/dL Hct (34.0-46.0) % MCHC (31.0-37.0) g/dL Neutrophils # (1.3-7.7) k/uL Lymphocytes # (1.0-4.8) k/uL ESR (0-20) mm/hr PT (9.0-12.0) sec INR (<1.2) APTT 99.5 H (22.0-30.0) sec Sodium (137-145) mmol/L Chloride (98-107) mmol/L Carbon Dioxide (22-30) mmol/L BUN (7-17) mg/dL Creatinine (0.52-1.04) mg/dL POC Glucose (mg/dL) 132 H (70-110) mg/dL Plasma Lactic Acid David 2.5 H* (0.7-2.0) mmol/L Calcium (8.4-10.2) mg/dL Troponin I (0.000-0.034) ng/mL C-Reactive Protein (<1.0) mg/dL Total Protein (6.3-8.2) g/dL Albumin (3.5-5.0) g/dL Urine Appearance (Clear) Urine Protein (Negative) Urine Glucose (UA) (Negative) Urine Blood (Negative) Ur Leukocyte Esterase (Negative) Amorphous Sediment (None) /hpf Urine Bacteria (None) /hpf Urine Mucus (None) /hpf 11/25/22 11/25/22 11/25/22 Range/Units 04:00 04:00 04:00 WBC 21.3 H (3.8-10.6) k/uL RBC 3.13 L (3.80-5.40) m/uL Hgb 8.8 L (11.4-16.0) gm/dL Hct 28.8 L (34.0-46.0) % MCHC 30.4 L (31.0-37.0) g/dL Neutrophils # 19.1 H (1.3-7.7) k/uL Lymphocytes # 0.9 L (1.0-4.8) k/uL ESR 43 H (0-20) mm/hr PT 12.1 H (9.0-12.0) sec INR 1.2 H (<1.2) APTT 173.0 H* (22.0-30.0) sec Sodium 136 L (137-145) mmol/L Chloride 109 H (98-107) mmol/L Carbon Dioxide 17 L (22-30) mmol/L BUN 46 H (7-17) mg/dL Creatinine 3.12 H (0.52-1.04) mg/dL POC Glucose (mg/dL) (70-110) mg/dL Plasma Lactic Acid David (0.7-2.0) mmol/L Calcium 8.0 L (8.4-10.2) mg/dL Troponin I (0.000-0.034) ng/mL C-Reactive Protein 27.5 H (<1.0) mg/dL Total Protein 4.6 L (6.3-8.2) g/dL Albumin 2.5 L (3.5-5.0) g/dL Urine Appearance (Clear) Urine Protein (Negative) Urine Glucose (UA) (Negative) Urine Blood (Negative) Ur Leukocyte Esterase (Negative) Amorphous Sediment (None) /hpf Urine Bacteria (None) /hpf Urine Mucus (None) /hpf
[2022-11-25 11:46] LABS: Glucose,Whole Blood 101 mg/dL (70-110)
--- NOTE | 2022-11-25 13:16 | P.PN ---
Subjective Progress Note Date: 11/25/22 Principal diagnosis: Pneumonia and abdominal CT to the thoracic spine Patient is a 72-year-old -[place] female with multiple comorbidities including end-stage renal disease status post cadaveric transplant in 2014 on immunosuppressive medication presenting to the hospital with not feeling well shortness of breath and cough, patient does exhibit bibasilar airspace disease CT of the chest abdominal pelvis 8disease in the lower lung also showed abnormality of the T10-T11 disc. On today's evaluation that is 11/25/2022, the patient did have a low-grade fever of 99.9F this morning patient is more awake and alert today patient is breathing comfortably without need for supplemental oxygen denies any chest pain no worsening cough or sputum production no abdominal pain patient to have some chronic mid back pain denies any history of any fall or any worsening mid back p ain or any weakness in the leg Objective - Vital Signs Vital signs: Vital Signs Temp 99.6 F 11/25/22 08:00 Pulse 86 11/25/22 08:00 Resp 16 11/25/22 08:00 BP 166/72 11/25/22 08:00 Pulse Ox 97 11/25/22 08:00 FiO2 Intake & Output 11/24/22 11/25/22 11/25/22 18:59 06:59 18:59 Intake Total 122.208 172.608 Balance 122.208 172.608 Weight 86.183 kg Intake: Intake, IV Titration 122.208 172.608 Amount Heparin Sod,Pork in 0.45% 122.208 172.608 NaCl 25,000 unit In 0.45 % NaCl 1 250ml.bag @ 12 UNITS/KG/HR 10.342 mls/hr IV .Q24H [facility] Rx#: [id number] Other: Voiding Method Diaper # Voids 2 - Exam GENERAL DESCRIPTION: An elderly female lying in bed in no distress RESPIRATORY SYSTEM: Unlabored breathing , decreased breath sounds at bases HEART: S1 S2 regular rate and rhythm , ABDOMEN: Soft , no tenderness EXTREMITIES: No edema feet - Labs CBC & Chem 7: 11/25/22 04:00 11/25/22 04:00 Labs: Abnormal Lab Results - Last 24 Hours (Table) 11/24/22 11/24/22 11/24/22 Range/Units 06:00 11:18 11:18 WBC 22.0 H (3.8-10.6) k/uL RBC 3.44 L (3.80-5.40) m/uL Hgb 9.6 L (11.4-16.0) gm/dL Hct 32.7 L (34.0-46.0) % MCHC 29.4 L (31.0-37.0) g/dL Neutrophils # 19.8 H (1.3-7.7) k/uL Lymphocytes # 0.9 L (1.0-4.8) k/uL ESR (0-20) mm/hr PT (9.0-12.0) sec INR (<1.2) APTT (22.0-30.0) sec Sodium (137-145) mmol/L Chloride (98-107) mmol/L Carbon Dioxide (22-30) mmol/L BUN (7-17) mg/dL Creatinine (0.52-1.04) mg/dL POC Glucose (mg/dL) (70-110) mg/dL Plasma Lactic Acid David 2.5 H* (0.7-2.0) mmol/L Calcium (8.4-10.2) mg/dL Troponin I (0.000-0.034) ng/mL C-Reactive Protein (<1.0) mg/dL Total Protein (6.3-8.2) g/dL Albumin (3.5-5.0) g/dL Urine Appearance Cloudy H (Clear) Urine Protein 3+ H (Negative) Urine Glucose (UA) Trace H (Negative) Urine Blood Small H (Negative) Ur Leukocyte Esterase Trace H (Negative) Amorphous Sediment Occasional H (None) /hpf Urine Bacteria Rare H (None) /hpf Urine Mucus Rare H (None) /hpf 11/24/22 11/24/22 11/24/22 Range/Units 11:18 11:18 11:50 WBC (3.8-10.6) k/uL RBC (3.80-5.40) m/uL Hgb (11.4-16.0) gm/dL Hct (34.0-46.0) % MCHC (31.0-37.0) g/dL Neutrophils # (1.3-7.7) k/uL Lymphocytes # (1.0-4.8) k/uL ESR (0-20) mm/hr PT 12.8 H (9.0-12.0) sec INR 1.3 H (<1.2) APTT (22.0-30.0) sec Sodium (137-145) mmol/L Chloride (98-107) mmol/L Carbon Dioxide (22-30) mmol/L BUN (7-17) mg/dL Creatinine (0.52-1.04) mg/dL POC Glucose (mg/dL) 172 H (70-110) mg/dL Plasma Lactic Acid David (0.7-2.0) mmol/L Calcium (8.4-10.2) mg/dL Troponin I 6.340 H* (0.000-0.034) ng/mL C-Reactive Protein (<1.0) mg/dL Total Protein (6.3-8.2) g/dL Albumin (3.5-5.0) g/dL Urine Appearance (Clear) Urine Protein (Negative) Urine Glucose (UA) (Negative) Urine Blood (Negative) Ur Leukocyte Esterase (Negative) Amorphous Sediment (None) /hpf Urine Bacteria (None) /hpf Urine Mucus (None) /hpf 11/24/22 11/24/22 11/24/22 Range/Units 14:25 16:30 20:26 WBC (3.8-10.6) k/uL RBC (3.80-5.40) m/uL Hgb (11.4-16.0) gm/dL Hct (34.0-46.0) % MCHC (31.0-37.0) g/dL Neutrophils # (1.3-7.7) k/uL Lymphocytes # (1.0-4.8) k/uL ESR (0-20) mm/hr PT (9.0-12.0) sec INR (<1.2) APTT 99.5 H (22.0-30.0) sec Sodium (137-145) mmol/L Chloride (98-107) mmol/L Carbon Dioxide (22-30) mmol/L BUN (7-17) mg/dL Creatinine (0.52-1.04) mg/dL POC Glucose (mg/dL) 132 H (70-110) mg/dL Plasma Lactic Acid David 2.5 H* (0.7-2.0) mmol/L Calcium (8.4-10.2) mg/dL Troponin I (0.000-0.034) ng/mL C-Reactive Protein (<1.0) mg/dL Total Protein (6.3-8.2) g/dL Albumin (3.5-5.0) g/dL Urine Appearance (Clear) Urine Protein (Negative) Urine Glucose (UA) (Negative) Urine Blood (Negative) Ur Leukocyte Esterase (Negative) Amorphous Sediment (None) /hpf Urine Bacteria (None) /hpf Urine Mucus (None) /hpf 11/25/22 11/25/22 11/25/22 Range/Units 04:00 04:00 04:00 WBC 21.3 H (3.8-10.6) k/uL RBC 3.13 L (3.80-5.40) m/uL Hgb 8.8 L (11.4-16.0) gm/dL Hct 28.8 L (34.0-46.0) % MCHC 30.4 L (31.0-37.0) g/dL Neutrophils # 19.1 H (1.3-7.7) k/uL Lymphocytes # 0.9 L (1.0-4.8) k/uL ESR 43 H (0-20) mm/hr PT 12.1 H (9.0-12.0) sec INR 1.2 H (<1.2) APTT 173.0 H* (22.0-30.0) sec Sodium 136 L (137-145) mmol/L Chloride 109 H (98-107) mmol/L Carbon Dioxide 17 L (22-30) mmol/L BUN 46 H (7-17) mg/dL Creatinine 3.12 H (0.52-1.04) mg/dL POC Glucose (mg/dL) (70-110) mg/dL Plasma Lactic Acid David (0.7-2.0) mmol/L Calcium 8.0 L (8.4-10.2) mg/dL Troponin I (0.000-0.034) ng/mL C-Reactive Protein 27.5 H (<1.0) mg/dL Total Protein 4.6 L (6.3-8.2) g/dL Albumin 2.5 L (3.5-5.0) g/dL Urine Appearance (Clear) Urine Protein (Negative) Urine Glucose (UA) (Negative) Urine Blood (Negative) Ur Leukocyte Esterase (Negative) Amorphous Sediment (None) /hpf Urine Bacteria (None) /hpf Urine Mucus (None) /hpf Assessment and Plan (1) Abnormal computed tomography of thoracic spine Current Visit: Yes Status: Acute Code(s): R93.7 - ABNORMAL FINDINGS ON DIAGNOSTIC IMAGING OF PRT MS CHEEMA SNOMED Code(s): 742295654 (2) Pneumonia Current Visit: Yes Status: Acute Code(s): J18.9 - PNEUMONIA, UNSPECIFIED ORGANISM SNOMED Code(s): 421999171 Plan: 1patient presented to hospital with not feeling well shortness of breath and cough with evidence of pneumonia on the chest x-ray as well as a CT with concern for possible pneumonia and likely community-acquired resistant gram-negative not entirely excluded 2-patient also have abnormality of the thoracic spine on the CT with a question of discitis , patient CT was reviewed with the radiologist in person Dr Mora , patient did have a similar changes in the thoracic spine area on the CT dated all the way back to 2079 and possibly representing degenerative changes which have advanced, and there is no evidence of any surrounding soft tissue swelling or air, 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
[2022-11-25] MEDS: predniSONE 5 MG TAB PO SCH (13:29)
[2022-11-25] MEDS: cloNIDine HCL 0.1 MG TAB PO SCH ×3 (13:30→21:53)
--- NOTE | 2022-11-25 16:15 | CA ---
Transthoracic Echo Report Name: Mary Barrientos Age: 72 Gender: F : 1950 Exam Date: 11/25/2022 08:55 Exam Location: [facility] Echo Ht (in): 65 Wt (lb): 190 Ordering Physician: Serge Deras MD Attending/Referring Phys: Economic Research Assistant Stephanie Chadwick [facility] Procedure CPT: Indications: nstemi Cardiac Hx: Technical Quality: Fair Contrast 1: Total Dose (mL): Contrast 2: Total Dose (mL): MEASUREMENTS (Male / Female) Normal Values 2D ECHO LV Diastolic Diameter PLAX 4.4 cm 4.2 - 5.9 / 3.9 - 5.3 cm LV Systolic Diameter PLAX 3.4 cm IVS Diastolic Thickness 1.2 cm 0.6 - 1.0 / 0.6 - 0.9 cm LVPW Diastolic Thickness 1.2 cm 0.6 - 1.0 / 0.6 - 0.9 cm LV Relative Wall Thickness 0.5 RV Internal Dim ED PLAX 4.1 cm LVOT Diameter 2.0 cm M-MODE Aortic Root Diameter MM 3.1 cm LA Systolic Diameter MM 4.7 cm LA Ao Ratio MM 1.5 AV Cusp Separation MM 1.4 cm DOPPLER AV Peak Velocity 126.7 cm/s AV Peak Gradient 6.4 mmHg AV Mean Velocity 95.2 cm/s AV Mean Gradient 4.0 mmHg AV Velocity Time Integral 24.0 cm LVOT Peak Velocity 90.9 cm/s LVOT Peak Gradient 3.3 mmHg LVOT Velocity Time Integral 18.2 cm LVOT Stroke Volume 55.7 cm??? LVOT Stroke Volume Index 28.8 ml/m??? LVOT Cardiac Index 2483.7 cm???/min???m??? AV Area Cont Eq vti 2.3 cm??? AV Area Cont Eq pk 2.2 cm??? Mitral E Point Velocity 99.3 cm/s Mitral A Point Velocity 182.0 cm/s Mitral E to A Ratio 0.5 MV Deceleration Time 130.9 ms LV E' Lateral Velocity 4.9 cm/s Mitral E to LV E' Lateral Ratio 20.1 LV E' Septal Velocity 3.1 cm/s Mitral E to LV E' Septal Ratio 32.5 TR Peak Velocity 401.3 cm/s TR Peak Gradient 64.4 mmHg Right Atrial Pressure 15.0 mmHg Pulmonary Artery Systolic Pressu 79.4 mmHg Right Ventricular Systolic Press 79.4 mmHg FINDINGS Left Ventricle Mildly increased left ventricular wall thickness. Left ventricular cavity size normal. Left ventricular ejection fraction is estimated at 40-45%. Right Ventricle Mild right ventricular dilatation. Severe pulmonary hypertension. Right ventricular systolic pressure estimated at 79 mmhg. Right Atrium Mild right atrial dilatation. Left Atrium Severe left atrial dilatation. Mitral Valve Moderate-severe mitral annular calcification. Moderate-severe thickening/calcification mitral valve leaflets. [id number] mitral regurgitation. Aortic Valve Trileaflet aortic valve. Mildly thickened aortic valve leaflets. Mild aortic regurgitation. Tricuspid Valve Structurally normal tricuspid valve. Moderate tricuspid regurgitation. Pulmonic Valve Structurally normal pulmonic valve. Trace to mild pulmonic regurgitation. Pericardium No pericardial effusion. Aorta Normal size aortic root and proximal ascending aorta. CONCLUSIONS Left ventricular ejection fraction 40-45% with global hypokinesis RVSP 79 Mild right ventricular dilation Moderate to severe mitral calcification Mild to moderate mitral regurgitation Moderate tricuspid regurgitation Previewed by: Dr. Casey Fernandez DO (Electronically Signed) Final Date: 25 November 2022 16:14
[2022-11-25 16:41] LABS: Glucose,Whole Blood 132 mg/dL (70-110)
[2022-11-25] MEDS: ACETAMINOPHEN TAB 325 MG TAB PO PRN (17:40)
[2022-11-25 18:04] LABS: % Iron Saturation 13.74 (12.00-45.00)
[2022-11-25 20:21] LABS: Glucose,Whole Blood 169 mg/dL (70-110)
[2022-11-25] MEDS: ATORVASTATIN 80 MG TAB PO SCH (21:52)
[2022-11-25] MEDS: INSULIN DETEMIR (LEVEMIR) 100 UNIT/ML SYR SQ SCH (21:53)
[2022-11-25 23:18] LABS: Glucose,Whole Blood 183 mg/dL (70-110)
[2022-11-26 05:31] LABS: Glucose,Whole Blood 23 mg/dL (70-110)
[2022-11-26 05:48] LABS: Glucose,Whole Blood 92 mg/dL (70-110)
[2022-11-26 08:16] LABS: Basophils % (A) 0 %; Eosinophils # (A) 0.3 k/uL (0-0.7); Eosinophils % (A) 2 %; HCT 25.1 % (34.0-46.0); HGB 7.7 gm/dL (11.4-16.0); Hypochromasia Moderate; Lymphocytes # (A) 0.8 k/uL (1.0-4.8); Lymphocytes % (A) 6 %; MCH 27.5 pg (25.0-35.0); MCHC 30.7 g/dL (31.0-37.0); MCV 89.7 fL (80.0-100.0); Mean Platelet Volume 9.5; Monocytes # (A) 0.5 k/uL (0-1.0); Monocytes % (A) 3 %; Neutrophils # (A) 13.4 k/uL (1.3-7.7); Neutrophils % (A) 89 %; Platelet Count 177 k/uL (150-450); RDW 14.7 % (11.5-15.5)
[2022-11-26] MEDS: ALBUTEROL HFA INHALER INHALATION SCH (08:28)
[2022-11-26] MEDS: INSULIN ASPART (NovoLOG) 100 UNIT/ML VIAL SQ SCH ×4 (08:42→20:10)
[2022-11-26] MEDS: DEXTROSE 5% IN WATER 1,000 ML with SODIUM BICARB (1 MEQ/ML) 150 ML IV SCH (08:42)
[2022-11-26] MEDS: HEPARIN SOD,PORK IN 0.45% NACL 25,000 UNIT in 0.45% NACL 1 250ML.BAG IV SCH (08:42)
[2022-11-26] MEDS: TACROLIMUS 1 MG CAP PO SCH ×2 (08:48→20:08)
[2022-11-26] MEDS: THIAMINE 100 MG TAB PO SCH ×2 (08:49→20:09)
[2022-11-26] MEDS: predniSONE 5 MG TAB PO SCH (08:49)
[2022-11-26] MEDS: amLODIPine 10 MG TAB PO SCH (08:49)
[2022-11-26] MEDS: MYCOPHENOLATE SODIUM DR 180 MG TABLET.DR PO SCH ×2 (08:49→20:09)
[2022-11-26] MEDS: cloNIDine HCL 0.1 MG TAB PO SCH (08:49)
[2022-11-26] MEDS: ASPIRIN 81 MG PO SCH (08:50)
[2022-11-26] MEDS: FAMOTIDINE 20 MG TAB PO SCH (08:50)
[2022-11-26] MEDS: SODIUM BICARBONATE TAB 650 MG TAB PO SCH ×3 (08:50→20:09)
[2022-11-26] MEDS: carvediloL 12.5 MG TAB PO SCH ×2 (08:50→20:08)
[2022-11-26 09:28] LABS: African American GFR (CKD) 18 (>60 ml/min/1.73 sqM); Anion Gap 7 mmol/L; Blood Urea Nitrogen 49 mg/dL (7-17); Calcium 7.9 mg/dL (8.4-10.2); Carbon Dioxide 26 mmol/L (22-30); Chloride 104 mmol/L (98-107); Glucose 141 mg/dL (74-99); Magnesium 1.4 mg/dL (1.6-2.3); Non-African American GFR(CKD) 15 (>60 ml/min/1.73 sqM); Potassium 3.3 mmol/L (3.5-5.1); Sodium 137 mmol/L (137-145)
[2022-11-26] MEDS ORDERED: POTASSIUM CHLORIDE ER 20 MEQ TAB.ER PO STA (10:37)
--- NOTE | 2022-11-26 10:42 | P.PN ---
Subjective Patient is seen in follow-up for acute allograft function. Renal function a little better today. Patient is not a reliable historian. Blood sugar was low this morning and she received an epidural 50. She is currently on bicarb drip. Acidosis resolved. Vital signs are stable. General: No acute distress. HEENT: Head exam is unremarkable. LUNGS: No audible rhonchi or wheezes. HEART: Rate and Rhythm are regular. ABDOMEN: Nontender. EXTREMITITES: No edema. Objective - Vital Signs Vital signs: Vital Signs Temp 97.9 F 11/26/22 08:00 Pulse 64 11/26/22 08:00 Resp 18 11/26/22 08:00 BP 200/92 11/26/22 08:00 Pulse Ox 99 11/26/22 08:00 FiO2 Intake & Output 11/25/22 11/26/22 11/26/22 18:59 06:59 18:59 Intake Total 53.863 Balance 53.863 Intake: Intake, IV Titration 53.863 Amount Heparin Sod,Pork in 0.45% 53.863 NaCl 25,000 unit In 0.45 % NaCl 1 250ml.bag @ 12 UNITS/KG/HR 10.342 mls/hr IV .Q24H [facility] Rx#: [id number] Other: Voiding Method Diaper Diaper Diaper External Catheter External Catheter External Catheter # Voids 1 1 1 # Bowel Movements 1 - Labs CBC & Chem 7: 11/26/22 08:00 11/26/22 08:00 Labs: Abnormal Lab Results - Last 24 Hours (Table) 11/25/22 11/25/22 11/25/22 Range/Units 04:00 04:00 11:10 WBC (3.8-10.6) k/uL RBC (3.80-5.40) m/uL Hgb (11.4-16.0) gm/dL Hct (34.0-46.0) % MCHC (31.0-37.0) g/dL Neutrophils # (1.3-7.7) k/uL Lymphocytes # (1.0-4.8) k/uL APTT 91.4 H (22.0-30.0) sec Potassium (3.5-5.1) mmol/L BUN (7-17) mg/dL Creatinine (0.52-1.04) mg/dL Glucose (74-99) mg/dL POC Glucose (mg/dL) (70-110) mg/dL Hemoglobin A1c 6.3 H (<=6.0) % Calcium (8.4-10.2) mg/dL Magnesium (1.6-2.3) mg/dL Iron (50-170) UG/DL TIBC (228-460) UG/DL Transferrin (204.0-354.0) mg/dL Ferritin (10.0-291.0) ng/mL Procalcitonin >100.00 H (0.02-0.09) ng/mL 11/25/22 11/25/22 11/25/22 Range/Units 11:10 16:39 17:59 WBC (3.8-10.6) k/uL RBC (3.80-5.40) m/uL Hgb (11.4-16.0) gm/dL Hct (34.0-46.0) % MCHC (31.0-37.0) g/dL Neutrophils # (1.3-7.7) k/uL Lymphocytes # (1.0-4.8) k/uL APTT 46.8 H (22.0-30.0) sec Potassium (3.5-5.1) mmol/L BUN (7-17) mg/dL Creatinine (0.52-1.04) mg/dL Glucose (74-99) mg/dL POC Glucose (mg/dL) 132 H (70-110) mg/dL Hemoglobin A1c (<=6.0) % Calcium (8.4-10.2) mg/dL Magnesium (1.6-2.3) mg/dL Iron 18 L (50-170) UG/DL TIBC 131 L (228-460) UG/DL Transferrin 93.4 L (204.0-354.0) mg/dL Ferritin 1897.0 H (10.0-291.0) ng/mL Procalcitonin (0.02-0.09) ng/mL 11/25/22 11/25/22 11/26/22 Range/Units 20:19 23:13 05:29 WBC (3.8-10.6) k/uL RBC (3.80-5.40) m/uL Hgb (11.4-16.0) gm/dL Hct (34.0-46.0) % MCHC (31.0-37.0) g/dL Neutrophils # (1.3-7.7) k/uL Lymphocytes # (1.0-4.8) k/uL APTT (22.0-30.0) sec Potassium (3.5-5.1) mmol/L BUN (7-17) mg/dL Creatinine (0.52-1.04) mg/dL Glucose (74-99) mg/dL POC Glucose (mg/dL) 169 H 183 H 23 L (70-110) mg/dL Hemoglobin A1c (<=6.0) % Calcium (8.4-10.2) mg/dL Magnesium (1.6-2.3) mg/dL Iron (50-170) UG/DL TIBC (228-460) UG/DL Transferrin (204.0-354.0) mg/dL Ferritin (10.0-291.0) ng/mL Procalcitonin (0.02-0.09) ng/mL 11/26/22 11/26/22 Range/Units 08:00 08:00 WBC 15.0 H (3.8-10.6) k/uL RBC 2.80 L (3.80-5.40) m/uL Hgb 7.7 L (11.4-16.0) gm/dL Hct 25.1 L (34.0-46.0) % MCHC 30.7 L (31.0-37.0) g/dL Neutrophils # 13.4 H (1.3-7.7) k/uL Lymphocytes # 0.8 L (1.0-4.8) k/uL APTT (22.0-30.0) sec Potassium 3.3 L (3.5-5.1) mmol/L BUN 49 H (7-17) mg/dL Creatinine 2.92 H (0.52-1.04) mg/dL Glucose 141 H (74-99) mg/dL POC Glucose (mg/dL) (70-110) mg/dL Hemoglobin A1c (<=6.0) % Calcium 7.9 L (8.4-10.2) mg/dL Magnesium 1.4 L (1.6-2.3) mg/dL Iron (50-170) UG/DL TIBC (228-460) UG/DL Transferrin (204.0-354.0) mg/dL Ferritin (10.0-291.0) ng/mL Procalcitonin (0.02-0.09) ng/mL Microbiology - Last 24 Hours (Table) 11/24/22 00:15 Blood Culture - Preliminary Blood 11/24/22 00:45 Blood Culture - Preliminary Blood Assessment and Plan Plan: Assessment: 1. 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 Creatinine peaked at 3.12 this admission and is 2.92 today. 2. Pneumonia maintained on antibiotics. ID following. 3. Chronic kidney disease stage IIIB/4 with creatinine 2.3 dated 11/16/2022. Etiology is long-term calcineurin inhibitor use and solitary kidney. 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 4. Metabolic acidosis secondary to acute kidney injury, lactic acidosis and IV fluids. Improved with bicarbonate drip. On po bicarb as well. 5. Anemia of chronic kidney disease. High ferritin noted. 6. Diabetes mellitus. 7. NSTEMI maintained on heparin drip. Cardiology following. 8. Hypertension with chronic kidney disease. 9. Hypomagnesemia from poor intake. 10. Hypokalemia from poor intake and intracellular shifting from IV bicarb. 11. Chronic systolic CHF with ejection fraction of 40-45% mild to moderate mitral regurgitation, moderate tricuspid regurgitation. Plan: Change IV fluids to normal saline at 50 cc/hr. Add Aranesp. Continue to hold losartan for now. Increase clonidine dose. Follow-up tacrolimus level. Maintain home immunosuppressants for now. White count trending down. Avoid nephrotoxins. Continue to monitor renal function and urine output. Replace potassium and magnesium.
[2022-11-26] MEDS ORDERED: SODIUM CHLORIDE 0.9% 1,000 ML IV SCH (10:45)
--- NOTE | 2022-11-26 10:51 | P.PN ---
Subjective Progress Note Date: 11/26/22 History of present illness: This is a 72-year-old female patient of Dr. Whyte with past medical history of diabetes, hypertension, dyslipidemia, aortic insufficiency, chronic kidney disease status post kidney transplant. Patient was last seen in the office January 2022. At that time a stress test and echocardiogram were to be obtained. Patient presented to the emergency center due to altered mental status. Patient is currently oriented to self only. She does deny having any chest pain, no lightheadedness or dizziness. No shortness of breath. She does complain of abdominal pain in the mid and right side. She admits to a little bit of vomiting and diarrhea. Not sure if this is accurate due to patient's confusion. EKG sinus tachycardia 105 bpm Chest x-ray: Bibasilar airspace disease. Correlate for infectious or aspiration pneumonitis. CAT scan of the brain revealed mild generalized atrophy. Old lacunar infarcts in the caudate heads and left basal ganglia. No acute intracranial abnormality. WBC 22, hemoglobin 9.6. INR 1.3. Sodium 137, potassium 4.7, chloride 106, CO2 20, BUN 38 creatinine 3. Troponin 10.1, 8.2, 6.56, 6.34. Home cardiac medications: Amlodipine 10 mg daily, aspirin 81 mg daily, Lipitor 10 mg at bedtime, Coreg 25 mg twice daily, Lasix 40 mg daily as needed, losartan 100 mg daily. Lexiscan stress test 05/2022 was nondiagnostic in response to Lexiscan. Abnormal perfusion imaging with evidence of fixed defect of large size and severe intensity involving the inferior lateral segment of the left ventricle associated with hypokinesia and representing prior MO. No evidence of any stress-induced ischemia. Normal left ventricular systolic function. Echocardiogram 05/2022 revealed normal LV size and function with EF of 55%. Mild left ventricular hypertrophy. Severely dilated left atrium. Mild AR, mild MR, mild TR. Normal PAS P 19 mmHg. 11/25 She is seen today in follow-up on the cardiac stepdown unit. Patient remains on heparin drip. Her blood pressures remain elevated. 176/70, heart rate is in the 80s. Repeat blood work reveals WBC of 21, hemoglobin 8.8, platelet count 181. Sodium 136, potassium 4.2, chloride 109, CO2 17, BUN 46 creatinine 3.12. C-reactive protein 27.5. Patient denies having any chest pain. No palpitations. Echocardiogram has been obtained and report is pending. 11/26 Patient has been in a sinus rhythm, telemetry reviewed. Heart rate is running and the 50s to 70s, blood pressure remains elevated. Nephrology is making adjustments in his added clonidine. Repeat blood work reveals potassium 3.3, BUN 49 creatinine 2.92. Echocardiogram reveals EF 40-45%, RVSP 79. Mild right ventricular dilation, moderate to severe mitral calcification, [id number] mitral regurgitation, moderate tricuspid regurgitation. Physical examination: Gen: This is a 72-year-old black female. VS: reviewed Telemetry reviewed Assessment: Elevated troponin, non-ST elevated myocardial infarction Metabolic encephalopathy of unclear etiology Leukocytosis Lactic acidosis Acute kidney injury Diabetes Hypertension Dyslipidemia Aortic insufficiency Chronic kidney disease status post kidney transplant Plan: Continue patient's current cardiac medications Agree with adjustments made by nephrology for blood pressure control. No cardiac workup and planned at this time. Cardiology will sign off and follow on an as-needed basis. Please reconsult for any new concerns. At time of discharge, patient will follow Dr. Whyte in one week post discharge. Nurse practitioner note has been reviewed, I agree with documented findings and plan of care. Patient was seen and examined. Objective - Vital Signs Vital signs: Vital Signs Temp 97.9 F 11/26/22 08:00 Pulse 64 11/26/22 08:00 Resp 18 11/26/22 08:00 BP 200/92 11/26/22 08:00 Pulse Ox 99 11/26/22 08:00 FiO2 Intake & Output 11/25/22 11/26/22 11/26/22 18:59 06:59 18:59 Intake Total 53.863 Balance 53.863 Intake: Intake, IV Titration 53.863 Amount Heparin Sod,Pork in 0.45% 53.863 NaCl 25,000 unit In 0.45 % NaCl 1 250ml.bag @ 12 UNITS/KG/HR 10.342 mls/hr IV .Q24H [facility] Rx#: [id number] Other: Voiding Method Diaper Diaper Diaper External Catheter External Catheter External Catheter # Voids 1 1 - Labs CBC & Chem 7: 11/26/22 08:00 11/26/22 08:00 Labs: Abnormal Lab Results - Last 24 Hours (Table) 11/25/22 11/25/22 11/25/22 Range/Units 04:00 04:00 11:10 WBC (3.8-10.6) k/uL RBC (3.80-5.40) m/uL Hgb (11.4-16.0) gm/dL Hct (34.0-46.0) % MCHC (31.0-37.0) g/dL Neutrophils # (1.3-7.7) k/uL Lymphocytes # (1.0-4.8) k/uL APTT 91.4 H (22.0-30.0) sec POC Glucose (mg/dL) (70-110) mg/dL Hemoglobin A1c 6.3 H (<=6.0) % Iron (50-170) UG/DL TIBC (228-460) UG/DL Transferrin (204.0-354.0) mg/dL Ferritin (10.0-291.0) ng/mL Procalcitonin >100.00 H (0.02-0.09) ng/mL 11/25/22 11/25/22 11/25/22 Range/Units 11:10 16:39 17:59 WBC (3.8-10.6) k/uL RBC (3.80-5.40) m/uL Hgb (11.4-16.0) gm/dL Hct (34.0-46.0) % MCHC (31.0-37.0) g/dL Neutrophils # (1.3-7.7) k/uL Lymphocytes # (1.0-4.8) k/uL APTT 46.8 H (22.0-30.0) sec POC Glucose (mg/dL) 132 H (70-110) mg/dL Hemoglobin A1c (<=6.0) % Iron 18 L (50-170) UG/DL TIBC 131 L (228-460) UG/DL Transferrin 93.4 L (204.0-354.0) mg/dL Ferritin 1897.0 H (10.0-291.0) ng/mL Procalcitonin (0.02-0.09) ng/mL 11/25/22 11/25/22 11/26/22 Range/Units 20:19 23:13 05:29 WBC (3.8-10.6) k/uL RBC (3.80-5.40) m/uL Hgb (11.4-16.0) gm/dL Hct (34.0-46.0) % MCHC (31.0-37.0) g/dL Neutrophils # (1.3-7.7) k/uL Lymphocytes # (1.0-4.8) k/uL APTT (22.0-30.0) sec POC Glucose (mg/dL) 169 H 183 H 23 L (70-110) mg/dL Hemoglobin A1c (<=6.0) % Iron (50-170) UG/DL TIBC (228-460) UG/DL Transferrin (204.0-354.0) mg/dL Ferritin (10.0-291.0) ng/mL Procalcitonin (0.02-0.09) ng/mL 11/26/22 Range/Units 08:00 WBC 15.0 H (3.8-10.6) k/uL RBC 2.80 L (3.80-5.40) m/uL Hgb 7.7 L (11.4-16.0) gm/dL Hct 25.1 L (34.0-46.0) % MCHC 30.7 L (31.0-37.0) g/dL Neutrophils # 13.4 H (1.3-7.7) k/uL Lymphocytes # 0.8 L (1.0-4.8) k/uL APTT (22.0-30.0) sec POC Glucose (mg/dL) (70-110) mg/dL Hemoglobin A1c (<=6.0) % Iron (50-170) UG/DL TIBC (228-460) UG/DL Transferrin (204.0-354.0) mg/dL Ferritin (10.0-291.0) ng/mL Procalcitonin (0.02-0.09) ng/mL Microbiology - Last 24 Hours (Table) 11/24/22 00:15 Blood Culture - Preliminary Blood 11/24/22 00:45 Blood Culture - Preliminary Blood
[2022-11-26] MEDS ORDERED: DARBEPOETIN ALFA 40 MCG/0.4 ML SYRINGE SQ SCH (11:00)
--- NOTE | 2022-11-26 11:27 | P.PN ---
Subjective Progress Note Date: 11/26/22 Hospital Course: 72-year-old female with a PMH of kidney transplant, type II DM, hypertension, a nd hyperlipidemia who was brought into the emergency room by family with complaints of weakness and confusion. In the emergency room upon presentation, the patient's pulse was 109 with temp 99.3, SpO2 97% on room air, BP 180/106. Laboratory evaluation revealed leukocytosis of 18.6, troponin 10.10, hemoglobin 10.5 (similar to baseline), BUN 38, creatinine 3.0 (baseline), lactic acid 3.3. CT brain was unremarkable. Chest x-ray revealed bibasilar opacities consistent with pneumonia. EKG had revealed sinus tachycardia with T-wave inversion in leads II, III, aVF, V4-V6. Patient admitted for severe sepsis as well as non-ST elevation MS. Sepsis likely secondary to community-acquired pneumonia versus aspiration pneumonia. Currently on IV antibiotics and heparin drip. Also has acute kidney injury. Cardiology and nephrology consulted. Mentation improving. CT chest, abdomen and pelvis shows extensive patchy and confluent airspace disease within the mid and lower lungs concerning for aspiration, right lower quadrant transplant kidney, moderate severe disc endplate degenerative changes at T10 to T11, possible discitis/osteomyelitis. ID is also consulted. Subjective: Patient seen and examined at bedside. Overnight, patient's blood sugar at drop, recovered with dextrose. Denies any significant chest pain, shortness of breath, abdominal pain, or back pain. Mentation has improved. Pertinent positives and negatives as discussed above, a complete review of systems was performed and all other systems are negative. Vitals Signs Reviewed. General: nontoxic, in mild distress, appears at stated age Derm: warm, dry Head: atraumatic, normocephalic, symmetric Eyes: EOMI, no lid lag, anicteric sclera Mouth: no lip lesion, mucus membranes moist Cardiovascular: S1S2 reg, tachycardic, no murmur Lungs: CTA bilateral, no rhonchi, no rales , no accessory muscle use Abdominal: soft, mildly tender to palpation in left lower quadrant, no guarding, no appreciable organomegaly Ext: no gross muscle atrophy, no edema, no contractures, tenderness to palpation of thoracic spine Neuro: CN II-XI grossly intact, no focal neuro deficits Psych: Alert, oriented 2, appropriate affect Data Reviewed Today: Pertinent Labs: WBC 15, hemoglobin 7.7, sodium 137, potassium 3.3, BUN 49, cre atinine 2.92, magnesium 1.4, blood sugars range between 92-183 Imaging: No new imaging study. Assessment and Plan: Active: Acute metabolic encephalopathy, resolving Severe sepsis likely secondary to community-acquired pneumonia versus aspiration pneumonia Non-ST elevation MS Acute kidney injury , on CKD, likely secondary to acute allograft dysfunction history of renal transplant, on immunosuppressants Metabolic acidosis, resolved Insulin-dependent type 2 diabetes, hyperglycemia Hypertension, uncontrolled Hypokalemia Hypomagnesemia -Encephalopathy likely in the setting of sepsis and acute on chronic renal failure -Infectious disease following, patient maintained on ceftriaxone and azithromy sharon -Swallowing evaluation -Thoracic spine unlikely source of infection -Blood cultures negative growth to date -procal significantly elevated -Heparin drip discontinued, cardiology Tasigna -Continue aspirin and statin -Nephrology note reviewed, IV fluids changed to normal saline at 50 mL an hour,aranesp added, increased clonidine dose, continue to hold losartan -Continue immunosuppression medications -Sliding scale insulin, continue home glargine, glargine decreased to 20 units given low blood sugars this morning -Amlodipine and carvedilol -IV repletion of magnesium and potassium, repeat BMP tomorrow Chronic: Dyslipidemia DVT ppx: Subcu heparin Code status: Full code Anticipated discharge place: pending clinical course Anticipated discharge time: pending clinical course Objective - Vital Signs Vital signs: Vital Signs Temp 97.9 F 11/26/22 08:00 Pulse 64 11/26/22 08:00 Resp 18 11/26/22 08:00 BP 200/92 11/26/22 08:00 Pulse Ox 99 11/26/22 08:00 FiO2 Intake & Output 11/25/22 11/26/22 11/26/22 18:59 06:59 18:59 Intake Total 53.863 Balance 53.863 Intake: Intake, IV Titration 53.863 Amount Heparin Sod,Pork in 0.45% 53.863 NaCl 25,000 unit In 0.45 % NaCl 1 250ml.bag @ 12 UNITS/KG/HR 10.342 mls/hr IV .Q24H [facility] Rx#: [id number] Other: Voiding Method Diaper Diaper Diaper External Catheter External Catheter External Catheter # Voids 1 1 1 # Bowel Movements 1 - Labs CBC & Chem 7: 11/26/22 08:00 11/26/22 08:00 Labs: Abnormal Lab Results - Last 24 Hours (Table) 11/25/22 11/25/22 11/25/22 Range/Units 04:00 11:10 11:10 WBC (3.8-10.6) k/uL RBC (3.80-5.40) m/uL Hgb (11.4-16.0) gm/dL Hct (34.0-46.0) % MCHC (31.0-37.0) g/dL Neutrophils # (1.3-7.7) k/uL Lymphocytes # (1.0-4.8) k/uL APTT 91.4 H (22.0-30.0) sec Potassium (3.5-5.1) mmol/L BUN (7-17) mg/dL Creatinine (0.52-1.04) mg/dL Glucose (74-99) mg/dL POC Glucose (mg/dL) (70-110) mg/dL Calcium (8.4-10.2) mg/dL Magnesium (1.6-2.3) mg/dL Iron 18 L (50-170) UG/DL TIBC 131 L (228-460) UG/DL Transferrin 93.4 L (204.0-354.0) mg/dL Ferritin 1897.0 H (10.0-291.0) ng/mL Procalcitonin >100.00 H (0.02-0.09) ng/mL 11/25/22 11/25/22 11/25/22 Range/Units 16:39 17:59 20:19 WBC (3.8-10.6) k/uL RBC (3.80-5.40) m/uL Hgb (11.4-16.0) gm/dL Hct (34.0-46.0) % MCHC (31.0-37.0) g/dL Neutrophils # (1.3-7.7) k/uL Lymphocytes # (1.0-4.8) k/uL APTT 46.8 H (22.0-30.0) sec Potassium (3.5-5.1) mmol/L BUN (7-17) mg/dL Creatinine (0.52-1.04) mg/dL Glucose (74-99) mg/dL POC Glucose (mg/dL) 132 H 169 H (70-110) mg/dL Calcium (8.4-10.2) mg/dL Magnesium (1.6-2.3) mg/dL Iron (50-170) UG/DL TIBC (228-460) UG/DL Transferrin (204.0-354.0) mg/dL Ferritin (10.0-291.0) ng/mL Procalcitonin (0.02-0.09) ng/mL 11/25/22 11/26/22 11/26/22 Range/Units 23:13 05:29 08:00 WBC 15.0 H (3.8-10.6) k/uL RBC 2.80 L (3.80-5.40) m/uL Hgb 7.7 L (11.4-16.0) gm/dL Hct 25.1 L (34.0-46.0) % MCHC 30.7 L (31.0-37.0) g/dL Neutrophils # 13.4 H (1.3-7.7) k/uL Lymphocytes # 0.8 L (1.0-4.8) k/uL APTT (22.0-30.0) sec Potassium (3.5-5.1) mmol/L BUN (7-17) mg/dL Creatinine (0.52-1.04) mg/dL Glucose (74-99) mg/dL POC Glucose (mg/dL) 183 H 23 L (70-110) mg/dL Calcium (8.4-10.2) mg/dL Magnesium (1.6-2.3) mg/dL Iron (50-170) UG/DL TIBC (228-460) UG/DL Transferrin (204.0-354.0) mg/dL Ferritin (10.0-291.0) ng/mL Procalcitonin (0.02-0.09) ng/mL 11/26/22 Range/Units 08:00 WBC (3.8-10.6) k/uL RBC (3.80-5.40) m/uL Hgb (11.4-16.0) gm/dL Hct (34.0-46.0) % MCHC (31.0-37.0) g/dL Neutrophils # (1.3-7.7) k/uL Lymphocytes # (1.0-4.8) k/uL APTT (22.0-30.0) sec Potassium 3.3 L (3.5-5.1) mmol/L BUN 49 H (7-17) mg/dL Creatinine 2.92 H (0.52-1.04) mg/dL Glucose 141 H (74-99) mg/dL POC Glucose (mg/dL) (70-110) mg/dL Calcium 7.9 L (8.4-10.2) mg/dL Magnesium 1.4 L (1.6-2.3) mg/dL Iron (50-170) UG/DL TIBC (228-460) UG/DL Transferrin (204.0-354.0) mg/dL Ferritin (10.0-291.0) ng/mL Procalcitonin (0.02-0.09) ng/mL Microbiology - Last 24 Hours (Table) 11/24/22 00:15 Blood Culture - Preliminary Blood 11/24/22 00:45 Blood Culture - Preliminary Blood
[2022-11-26] MEDS ORDERED: LABETALOL 5 MG/ML VIAL MDV IVP STA (11:32)
[2022-11-26] MEDS: MAGNESIUM SULFATE-D5W PMX 1 GM in DEXTROSE/WATER 1 100ML.BAG IVPB SCH ×2 (11:42→12:46)
[2022-11-26 11:50] LABS: Glucose,Whole Blood 34 mg/dL (70-110)
[2022-11-26 11:59] LABS: Glucose,Whole Blood 34 mg/dL (70-110)
[2022-11-26] MEDS ORDERED: PIPERACILLIN-TAZOBACTAM 3.375 GM in SODIUM CHLORIDE 0.9% 100 ML IVPB SCH (12:00)
[2022-11-26 12:06] LABS: Glucose,Whole Blood 33 mg/dL (70-110)
[2022-11-26 12:17] LABS: Glucose,Whole Blood 122 mg/dL (70-110)
--- NOTE | 2022-11-26 13:20 | XR ---
EXAMINATION TYPE: XR chest 1V DATE OF EXAM: 11/26/2022 HISTORY: Shortness of breath. COMPARISON: 11/23/2022 TECHNIQUE: Single view of the chest is submitted. FINDINGS: Demonstrated are scattered senescent parenchymal change. Persistent but improving patchy density right lower lobe. Stable patchy density left lower lobe. Justine elate for underlying pneumonia. The heart is stable. Hilar and mediastinal structures are within normal limits. Degenerative changes are seen of the dorsal spine. IMPRESSION: 1. Persistent but improving patchy density right lower lobe. Stable patchy density left lower lobe. Correlate for underlying pneumonia.
[2022-11-26] MEDS: DEXTROSE 10% IN WATER 1,000 ML with SODIUM CHLORIDE 4MEQ/ML VIAL 153.8 MEQ IV SCH (14:58)
[2022-11-26 16:55] LABS: Glucose,Whole Blood 139 mg/dL (70-110)
[2022-11-26] MEDS: HEPARIN SODIUM,PORCINE/PF 5,000 UNIT/0.5 ML SYRINGE SQ SCH ×2 (17:34→23:49)
[2022-11-26] MEDS: CEFEPIME 1 GM in SODIUM CHLORIDE 0.9% 50 ML IVPB SCH (17:34)
[2022-11-26] MEDS: cloNIDine HCL 0.2 MG TAB PO SCH ×2 (17:35→20:09)
--- NOTE | 2022-11-26 17:45 | P.PN ---
Progress Note - Text Progress Note Date: 11/26/22 Patient had acute hypoglycemia again this morning, and encephalopathy. Given dextrose, however IV infiltrated. Given dextrose through different IV, patient responded well. Also concerned about aspiration, abx broadened.
[2022-11-26] MEDS: ATORVASTATIN 80 MG TAB PO SCH (20:09)
[2022-11-26] MEDS ORDERED: INSULIN DETEMIR (LEVEMIR) 100 UNIT/ML SYR SQ SCH (21:00)
--- NOTE | 2022-11-26 22:47 | P.PN ---
Subjective Progress Note Date: 11/26/22 Principal diagnosis: Pneumonia and abdominal CT to the thoracic spine Patient is a 72-year-old -[place] female with multiple comorbidities including end-stage renal disease status post cadaveric transplant in 2014 on immunosuppressive medication presenting to the hospital with not feeling well shortness of breath and cough, patient does exhibit bibasilar airspace disease CT of the chest abdominal pelvis 8disease in the lower lung also showed abnormality of the T10-T11 disc. On today's evaluation that is 11/26/2022, the patient is afebrile patient apparently was doing better this morning however this afternoon patient noticed to have significant mental status changes patient seem to be slightly restless however not hypoxic or hypotensive no choking on the food vomiting or diarrhea has been reported most information has been obtained from the nursing staff and the daughter at the bedside Objective - Vital Signs Vital signs: Vital Signs Temp 97.9 F 11/26/22 08:00 Pulse 64 11/26/22 08:00 Resp 18 11/26/22 08:00 BP 200/92 11/26/22 08:00 Pulse Ox 99 11/26/22 08:00 FiO2 Intake & Output 11/25/22 11/26/22 11/26/22 18:59 06:59 18:59 Intake Total 53.863 Balance 53.863 Intake: Intake, IV Titration 53.863 Amount Heparin Sod,Pork in 0.45% 53.863 NaCl 25,000 unit In 0.45 % NaCl 1 250ml.bag @ 12 UNITS/KG/HR 10.342 mls/hr IV .Q24H [facility] Rx#: [id number] Other: Voiding Method Diaper Diaper Diaper External Catheter External Catheter External Catheter # Voids 1 1 1 # Bowel Movements 1 - Exam GENERAL DESCRIPTION: An elderly female lying in bed in no distress RESPIRATORY SYSTEM: Unlabored breathing , decreased breath sounds at bases HEART: S1 S2 regular rate and rhythm , ABDOMEN: Soft , no tenderness EXTREMITIES: No edema feet - Labs CBC & Chem 7: 11/26/22 08:00 11/26/22 08:00 Labs: Abnormal Lab Results - Last 24 Hours (Table) 11/25/22 11/25/22 11/25/22 Range/Units 04:00 11:10 16:39 WBC (3.8-10.6) k/uL RBC (3.80-5.40) m/uL Hgb (11.4-16.0) gm/dL Hct (34.0-46.0) % MCHC (31.0-37.0) g/dL Neutrophils # (1.3-7.7) k/uL Lymphocytes # (1.0-4.8) k/uL APTT (22.0-30.0) sec Potassium (3.5-5.1) mmol/L BUN (7-17) mg/dL Creatinine (0.52-1.04) mg/dL Glucose (74-99) mg/dL POC Glucose (mg/dL) 132 H (70-110) mg/dL Calcium (8.4-10.2) mg/dL Magnesium (1.6-2.3) mg/dL Iron 18 L (50-170) UG/DL TIBC 131 L (228-460) UG/DL Transferrin 93.4 L (204.0-354.0) mg/dL Ferritin 1897.0 H (10.0-291.0) ng/mL Procalcitonin >100.00 H (0.02-0.09) ng/mL 11/25/22 11/25/22 11/25/22 Range/Units 17:59 20:19 23:13 WBC (3.8-10.6) k/uL RBC (3.80-5.40) m/uL Hgb (11.4-16.0) gm/dL Hct (34.0-46.0) % MCHC (31.0-37.0) g/dL Neutrophils # (1.3-7.7) k/uL Lymphocytes # (1.0-4.8) k/uL APTT 46.8 H (22.0-30.0) sec Potassium (3.5-5.1) mmol/L BUN (7-17) mg/dL Creatinine (0.52-1.04) mg/dL Glucose (74-99) mg/dL POC Glucose (mg/dL) 169 H 183 H (70-110) mg/dL Calcium (8.4-10.2) mg/dL Magnesium (1.6-2.3) mg/dL Iron (50-170) UG/DL TIBC (228-460) UG/DL Transferrin (204.0-354.0) mg/dL Ferritin (10.0-291.0) ng/mL Procalcitonin (0.02-0.09) ng/mL 11/26/22 11/26/22 11/26/22 Range/Units 05:29 08:00 08:00 WBC 15.0 H (3.8-10.6) k/uL RBC 2.80 L (3.80-5.40) m/uL Hgb 7.7 L (11.4-16.0) gm/dL Hct 25.1 L (34.0-46.0) % MCHC 30.7 L (31.0-37.0) g/dL Neutrophils # 13.4 H (1.3-7.7) k/uL Lymphocytes # 0.8 L (1.0-4.8) k/uL APTT (22.0-30.0) sec Potassium 3.3 L (3.5-5.1) mmol/L BUN 49 H (7-17) mg/dL Creatinine 2.92 H (0.52-1.04) mg/dL Glucose 141 H (74-99) mg/dL POC Glucose (mg/dL) 23 L (70-110) mg/dL Calcium 7.9 L (8.4-10.2) mg/dL Magnesium 1.4 L (1.6-2.3) mg/dL Iron (50-170) UG/DL TIBC (228-460) UG/DL Transferrin (204.0-354.0) mg/dL Ferritin (10.0-291.0) ng/mL Procalcitonin (0.02-0.09) ng/mL 11/26/22 11/26/22 11/26/22 Range/Units 11:48 11:58 12:04 WBC (3.8-10.6) k/uL RBC (3.80-5.40) m/uL Hgb (11.4-16.0) gm/dL Hct (34.0-46.0) % MCHC (31.0-37.0) g/dL Neutrophils # (1.3-7.7) k/uL Lymphocytes # (1.0-4.8) k/uL APTT (22.0-30.0) sec Potassium (3.5-5.1) mmol/L BUN (7-17) mg/dL Creatinine (0.52-1.04) mg/dL Glucose (74-99) mg/dL POC Glucose (mg/dL) 34 L 34 L 33 L (70-110) mg/dL Calcium (8.4-10.2) mg/dL Magnesium (1.6-2.3) mg/dL Iron (50-170) UG/DL TIBC (228-460) UG/DL Transferrin (204.0-354.0) mg/dL Ferritin (10.0-291.0) ng/mL Procalcitonin (0.02-0.09) ng/mL 11/26/22 Range/Units 12:15 WBC (3.8-10.6) k/uL RBC (3.80-5.40) m/uL Hgb (11.4-16.0) gm/dL Hct (34.0-46.0) % MCHC (31.0-37.0) g/dL Neutrophils # (1.3-7.7) k/uL Lymphocytes # (1.0-4.8) k/uL APTT (22.0-30.0) sec Potassium (3.5-5.1) mmol/L BUN (7-17) mg/dL Creatinine (0.52-1.04) mg/dL Glucose (74-99) mg/dL POC Glucose (mg/dL) 122 H (70-110) mg/dL Calcium (8.4-10.2) mg/dL Magnesium (1.6-2.3) mg/dL Iron (50-170) UG/DL TIBC (228-460) UG/DL Transferrin (204.0-354.0) mg/dL Ferritin (10.0-291.0) ng/mL Procalcitonin (0.02-0.09) ng/mL Microbiology - Last 24 Hours (Table) 11/24/22 00:15 Blood Culture - Preliminary Blood 11/24/22 00:45 Blood Culture - Preliminary Blood Assessment and Plan (1) Abnormal computed tomography of thoracic spine Current Visit: Yes Status: Acute Code(s): R93.7 - ABNORMAL FINDINGS ON DIAGNOSTIC IMAGING OF PRT MS SYS SNOMED Code(s): 567848817 (2) Pneumonia Current Visit: Yes Status: Acute Code(s): J18.9 - PNEUMONIA, UNSPECIFIED ORGANISM SNOMED Code(s): 108105416 Plan: 1patient presented to hospital with not feeling well shortness of breath and cough with evidence of pneumonia on the chest x-ray as well as a CT with concern for possible pneumonia and likely community-acquired resistant gram-negative not entirely excluded 2-patient also have abnormality of the thoracic spine on the CT with a question of discitis , patient CT was reviewed with the radiologist in person Dr Mora , patient did have a similar changes in the thoracic spine area on the CT dated all the way back to 2079 and possibly representing degenerative changes which have advanced, and there is no evidence of any surrounding soft tissue swelling or air, clinically 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
[2022-11-26] MEDS ORDERED: IPRATROPIUM-ALBUTEROL 3 ML NEB INHALATION STA (23:53)
[2022-11-27] MEDS: CEFEPIME 1 GM in SODIUM CHLORIDE 0.9% 50 ML IVPB SCH ×2 (04:57→15:13)
[2022-11-27 06:07] LABS: Glucose,Whole Blood 250 mg/dL (70-110)
[2022-11-27 06:07] LABS: Glucose,Whole Blood 105 mg/dL (70-110)
[2022-11-27 06:11] LABS: Glucose,Whole Blood 294 mg/dL (70-110)
[2022-11-27] MEDS: INSULIN ASPART (NovoLOG) 100 UNIT/ML VIAL SQ SCH ×4 (06:57→20:20)
[2022-11-27] MEDS: ALBUTEROL HFA INHALER INHALATION SCH (08:02)
[2022-11-27 08:59] LABS: Basophils % (A) 0 %; Eosinophils # (A) 0.1 k/uL (0-0.7); Eosinophils % (A) 2 %; HCT 30.5 % (34.0-46.0); HGB 9.1 gm/dL (11.4-16.0); Hypochromasia Marked; Lymphocytes # (A) 0.8 k/uL (1.0-4.8); Lymphocytes % (A) 11 %; MCH 27.3 pg (25.0-35.0); MCHC 29.7 g/dL (31.0-37.0); MCV 91.9 fL (80.0-100.0); Monocytes # (A) 0.4 k/uL (0-1.0); Monocytes % (A) 5 %; Neutrophils # (A) 6.4 k/uL (1.3-7.7); Neutrophils % (A) 81 %; Platelet Count 193 k/uL (150-450); RBC 3.32 m/uL (3.80-5.40); RDW 14.5 % (11.5-15.5); WBC 7.8 k/uL (3.8-10.6)
[2022-11-27 09:27] LABS: African American GFR (CKD) 18 (>60 ml/min/1.73 sqM); Anion Gap 7 mmol/L; Blood Urea Nitrogen 45 mg/dL (7-17); Calcium 8.8 mg/dL (8.4-10.2); Carbon Dioxide 22 mmol/L (22-30); Chloride 105 mmol/L (98-107); Glucose 233 mg/dL (74-99); Magnesium 1.9 mg/dL (1.6-2.3); Non-African American GFR(CKD) 15 (>60 ml/min/1.73 sqM); Potassium 4.5 mmol/L (3.5-5.1); Sodium 134 mmol/L (137-145)
[2022-11-27] MEDS: HEPARIN SODIUM,PORCINE/PF 5,000 UNIT/0.5 ML SYRINGE SQ SCH ×3 (09:33→23:21)
[2022-11-27] MEDS: FAMOTIDINE 20 MG TAB PO SCH (09:33)
[2022-11-27] MEDS: THIAMINE 100 MG TAB PO SCH ×2 (09:33→20:22)
[2022-11-27] MEDS: TACROLIMUS 1 MG CAP PO SCH ×2 (09:34→20:21)
[2022-11-27] MEDS: SODIUM BICARBONATE TAB 650 MG TAB PO SCH ×3 (09:34→20:22)
[2022-11-27] MEDS: carvediloL 12.5 MG TAB PO SCH ×2 (09:34→20:21)
[2022-11-27] MEDS: amLODIPine 10 MG TAB PO SCH (09:34)
[2022-11-27] MEDS: predniSONE 5 MG TAB PO SCH (09:34)
[2022-11-27] MEDS: cloNIDine HCL 0.2 MG TAB PO SCH ×3 (09:34→20:22)
[2022-11-27] MEDS: ASPIRIN 81 MG PO SCH (09:34)
[2022-11-27] MEDS: MYCOPHENOLATE SODIUM DR 180 MG TABLET.DR PO SCH ×2 (09:35→20:20)
[2022-11-27 11:39] LABS: Glucose,Whole Blood 241 mg/dL (70-110)
--- NOTE | 2022-11-27 12:56 | P.PN ---
Subjective Progress Note Date: 11/27/22 Hospital Course: 72-year-old female with a PMH of kidney transplant, type II DM, hypertension, and hyperlipidemia who was brought into the emergency room by family with complaints of weakness and confusion. In the emergency room upon presentation, the patient's pulse was 109 with temp 99.3, SpO2 97% on room air, BP 180/106. Laboratory evaluation revealed leukocytosis of 18.6, troponin 10.10, hemoglobin 10.5 (similar to baseline), BUN 38, creatinine 3.0 (baseline), lactic acid 3.3. CT brain was unremarkable. Chest x-ray revealed bibasilar opacities consistent with pneumonia. EKG had revealed sinus tachycardia with T-wave inversion in leads II, III, aVF, V4-V6. Patient admitted for severe sepsis as well as non-ST elevation MO. Sepsis likely secondary to community-acquired pneumonia versus aspiration pneumonia. Currently on IV antibiotics, now broadened. Heparin drip was started, now off. Also has acute kidney injury. Cardiology and nephrology consulted. Mentation improving. CT chest, abdomen and pelvis shows extensive patchy and confluent airspace disease within the mid and lower lungs concerning for aspiration, right lower quadrant transplant kidney, moderate severe disc endplate degenerative changes at T10 to T11, possible discitis/osteomyelitis. ID is also consulted. Patient had change in mentation on 11/26 related to hypoglycemia, levemir held. Subjective: Patient seen and examined at bedside. No acute events overnight. Mentation is good now. Denies any new complaints. Pertinent positives and negatives as discussed above, a complete review of systems was performed and all other systems are negative. Vitals Signs Reviewed. General: nontoxic, in mild distress, appears at stated age Derm: warm, dry Head: atraumatic, normocephalic, symmetric Eyes: EOMI, no lid lag, anicteric sclera Mouth: no lip lesion, mucus membranes moist Cardiovascular: S1S2 reg, tachycardic, no murmur Lungs: CTA bilateral, no rhonchi, no rales , no accessory muscle use Abdominal: soft, non-tender, no guarding, no appreciable organomegaly Ext: no gross muscle atrophy, no edema, no contractures Neuro: CN II-XI grossly intact, no focal neuro deficits Psych: Alert, oriented 3, appropriate affect Data Reviewed Today: Pertinent Labs: WBC 7.8, hemoglobin 9.1, sodium 134, creatinine 2.94, blood sugars range between 233-250 Imaging: No new imaging study Assessment and Plan: Active: Acute metabolic encephalopathy, resolved Severe sepsis likely secondary to community-acquired pneumonia versus aspiration pneumonia Non-ST elevation MO, demand ischemia Acute kidney injury , on CKD, likely secondary to acute allograft dysfunction history of renal transplant, on immunosuppressants Metabolic acidosis, resolved Insulin-dependent type 2 diabetes Hypertension, uncontrolled Hypokalemia, resolved Hypomagnesemia, resolved -Infectious disease following, on cefepime 1 g IV every 12 hours -Swallowing evaluation pending -Blood cultures negative growth to date -procal significantly elevated -Heparin drip discontinued, cardiology signed off -Continue aspirin and statin -Nephrology following, on clonidine, continue to hold losartan -Continue immunosuppression medications -Sliding scale insulin, home glargine discontinued given her episodes of hypoglycemia -Amlodipine and carvedilol Chronic: Dyslipidemia DVT ppx: Subcu heparin Code status: Full code Anticipated discharge place: pending clinical course Anticipated discharge time: pending clinical course Objective - Vital Signs Vital signs: Vital Signs Temp 98.1 F 11/27/22 11:27 Pulse 67 11/27/22 11:27 Resp 14 11/27/22 11:27 BP 149/67 11/27/22 11:27 Pulse Ox 100 11/27/22 11:27 FiO2 Intake & Output 11/26/22 11/27/22 11/27/22 18:59 06:59 18:59 Intake Total 120 Output Total 300 0 Balance -300 120 Intake: Oral 120 Output: Urine 300 0 Urine/Stool Mix 0 Emesis 0 Oral Regurgitation 0 Other: Voiding Method Diaper Diaper External Catheter External Catheter # Voids 1 0 # Bowel Movements 1 0 - Labs CBC & Chem 7: 11/27/22 08:25 11/27/22 08:25 Labs: Abnormal Lab Results - Last 24 Hours (Table) 11/26/22 11/27/22 11/27/22 Range/Units 16:52 01:59 06:08 RBC (3.80-5.40) m/uL Hgb (11.4-16.0) gm/dL Hct (34.0-46.0) % MCHC (31.0-37.0) g/dL Lymphocytes # (1.0-4.8) k/uL Sodium (137-145) mmol/L BUN (7-17) mg/dL Creatinine (0.52-1.04) mg/dL Glucose (74-99) mg/dL POC Glucose (mg/dL) 139 H 250 H 294 H (70-110) mg/dL 11/27/22 11/27/22 11/27/22 Range/Units 08:25 08:25 11:38 RBC 3.32 L (3.80-5.40) m/uL Hgb 9.1 L (11.4-16.0) gm/dL Hct 30.5 L (34.0-46.0) % MCHC 29.7 L (31.0-37.0) g/dL Lymphocytes # 0.8 L (1.0-4.8) k/uL Sodium 134 L (137-145) mmol/L BUN 45 H (7-17) mg/dL Creatinine 2.94 H (0.52-1.04) mg/dL Glucose 233 H (74-99) mg/dL POC Glucose (mg/dL) 241 H (70-110) mg/dL Microbiology - Last 24 Hours (Table) 11/24/22 00:15 Blood Culture - Preliminary Blood 11/24/22 00:45 Blood Culture - Preliminary Blood
[2022-11-27] MEDS: SODIUM CHLORIDE 0.9% 1,000 ML IV SCH (15:14)
--- NOTE | 2022-11-27 15:42 | P.PN ---
Subjective Progress Note Date: 11/27/22 Follow-up for acute kidney injury. Admitted with syncopal episodes. Currently on heparin drip for non-STEMI. Urine output minimal. Objective - Vital Signs Vital signs: Vital Signs Temp 97.9 F 11/27/22 15:22 Pulse 65 11/27/22 15:22 Resp 16 11/27/22 15:22 BP 145/75 11/27/22 15:22 Pulse Ox 100 11/27/22 15:22 FiO2 Intake & Output 11/26/22 11/27/22 11/27/22 18:59 06:59 18:59 Intake Total 240 Output Total 300 0 Balance -300 240 Intake: Oral 240 Output: Urine 300 0 Urine/Stool Mix 0 Emesis 0 Oral Regurgitation 0 Other: Voiding Method Diaper Diaper External Catheter External Catheter # Voids 1 0 # Bowel Movements 1 0 - Exam No acute distress S1-S2 heard Lungs clear Abdomen soft No edema - Labs CBC & Chem 7: 11/27/22 08:25 11/27/22 08:25 Labs: Abnormal Lab Results - Last 24 Hours (Table) 11/26/22 11/27/22 11/27/22 Range/Units 16:52 01:59 06:08 RBC (3.80-5.40) m/uL Hgb (11.4-16.0) gm/dL Hct (34.0-46.0) % MCHC (31.0-37.0) g/dL Lymphocytes # (1.0-4.8) k/uL Sodium (137-145) mmol/L BUN (7-17) mg/dL Creatinine (0.52-1.04) mg/dL Glucose (74-99) mg/dL POC Glucose (mg/dL) 139 H 250 H 294 H (70-110) mg/dL 11/27/22 11/27/22 11/27/22 Range/Units 08:25 08:25 11:38 RBC 3.32 L (3.80-5.40) m/uL Hgb 9.1 L (11.4-16.0) gm/dL Hct 30.5 L (34.0-46.0) % MCHC 29.7 L (31.0-37.0) g/dL Lymphocytes # 0.8 L (1.0-4.8) k/uL Sodium 134 L (137-145) mmol/L BUN 45 H (7-17) mg/dL Creatinine 2.94 H (0.52-1.04) mg/dL Glucose 233 H (74-99) mg/dL POC Glucose (mg/dL) 241 H (70-110) mg/dL Microbiology - Last 24 Hours (Table) 11/24/22 00:15 Blood Culture - Preliminary Blood 11/24/22 00:45 Blood Culture - Preliminary Blood Assessment and Plan Assessment: #1 acute allograft dysfunction secondary to septic ATN. -Baseline creatinine 2.3 MG per DL. -Urine analysis 2+ protein, small blood and glucose. 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 #3 renal transplant in 2015 4 non-STEMI on heparin drip #5 systolic function with the EF of 40% and pulmonary hypertension. Plan: #1 creatinine remains high, stable. Urine output minimal. #2 continue with immunosuppression, tacrolimus, MMF and prednisone. -Follow-up on the tacrolimus level. Still pending #3 if renal function continues to remain high transferred to the transplant Center for renal biopsy. #4 avoid nephrotoxic agents and hypotensive episodes.
[2022-11-27] MEDS: DEXTROSE 10% IN WATER 1,000 ML with SODIUM CHLORIDE 4MEQ/ML VIAL 153.8 MEQ IV SCH (16:12)
[2022-11-27 16:34] LABS: Glucose,Whole Blood 192 mg/dL (70-110)
[2022-11-27 20:06] LABS: Glucose,Whole Blood 161 mg/dL (70-110)
[2022-11-27] MEDS: ATORVASTATIN 80 MG TAB PO SCH (20:22)
--- NOTE | 2022-11-27 22:43 | P.PN ---
Subjective Progress Note Date: 11/27/22 Principal diagnosis: Pneumonia and abdominal CT to the thoracic spine Patient is a 72-year-old -[place] female with multiple comorbidities including end-stage renal disease status post cadaveric transplant in 2014 on immunosuppressive medication presenting to the hospital with not feeling well shortness of breath and cough, patient does exhibit bibasilar airspace disease CT of the chest abdominal pelvis 8disease in the lower lung also showed abnormality of the T10-T11 disc. On today's evaluation that is 11/27/2022, the patient is afebrile the patient is more awake and alert today and is breathing comfortably on 2 L nasal cannula. Denies having any chest pain no worsening cough or sputum reduction abdominal pain and no diarrhea no worsening back pain Objective - Vital Signs Vital signs: Vital Signs Temp 98.1 F 11/27/22 11:27 Pulse 67 11/27/22 11:27 Resp 14 11/27/22 11:27 BP 149/67 11/27/22 11:27 Pulse Ox 100 11/27/22 11:27 FiO2 Intake & Output 11/26/22 11/27/22 11/27/22 18:59 06:59 18:59 Intake Total 120 Output Total 300 0 Balance -300 120 Intake: Oral 120 Output: Urine 300 0 Urine/Stool Mix 0 Emesis 0 Oral Regurgitation 0 Other: Voiding Method Diaper Diaper External Catheter External Catheter # Voids 1 0 # Bowel Movements 1 0 - Exam GENERAL DESCRIPTION: An elderly female lying in bed in no distress RESPIRATORY SYSTEM: Unlabored breathing , decreased breath sounds at bases HEART: S1 S2 regular rate and rhythm , ABDOMEN: Soft , no tenderness EXTREMITIES: No edema feet - Labs CBC & Chem 7: 11/27/22 08:25 11/27/22 08:25 Labs: Abnormal Lab Results - Last 24 Hours (Table) 11/26/22 11/26/22 11/27/22 Range/Units 12:15 16:52 01:59 RBC (3.80-5.40) m/uL Hgb (11.4-16.0) gm/dL Hct (34.0-46.0) % MCHC (31.0-37.0) g/dL Lymphocytes # (1.0-4.8) k/uL Sodium (137-145) mmol/L BUN (7-17) mg/dL Creatinine (0.52-1.04) mg/dL Glucose (74-99) mg/dL POC Glucose (mg/dL) 122 H 139 H 250 H (70-110) mg/dL 11/27/22 11/27/22 11/27/22 Range/Units 06:08 08:25 08:25 RBC 3.32 L (3.80-5.40) m/uL Hgb 9.1 L (11.4-16.0) gm/dL Hct 30.5 L (34.0-46.0) % MCHC 29.7 L (31.0-37.0) g/dL Lymphocytes # 0.8 L (1.0-4.8) k/uL Sodium 134 L (137-145) mmol/L BUN 45 H (7-17) mg/dL Creatinine 2.94 H (0.52-1.04) mg/dL Glucose 233 H (74-99) mg/dL POC Glucose (mg/dL) 294 H (70-110) mg/dL 11/27/22 Range/Units 11:38 RBC (3.80-5.40) m/uL Hgb (11.4-16.0) gm/dL Hct (34.0-46.0) % MCHC (31.0-37.0) g/dL Lymphocytes # (1.0-4.8) k/uL Sodium (137-145) mmol/L BUN (7-17) mg/dL Creatinine (0.52-1.04) mg/dL Glucose (74-99) mg/dL POC Glucose (mg/dL) 241 H (70-110) mg/dL Microbiology - Last 24 Hours (Table) 11/24/22 00:15 Blood Culture - Preliminary Blood 11/24/22 00:45 Blood Culture - Preliminary Blood Assessment and Plan (1) Abnormal computed tomography of thoracic spine Current Visit: Yes Status: Acute Code(s): R93.7 - ABNORMAL FINDINGS ON DIAGNOSTIC IMAGING OF PRT MS MALIAS SNOMED Code(s): 632324992 (2) Pneumonia Current Visit: Yes Status: Acute Code(s): J18.9 - PNEUMONIA, UNSPECIFIED ORGANISM SNOMED Code(s): 727441888 Plan: 1patient presented to hospital with not feeling well shortness of breath and cough with evidence of pneumonia on the chest x-ray as well as a CT with concern for possible pneumonia and likely community-acquired resistant gram-negative not entirely excluded 2-patient also have abnormality of the thoracic spine on the CT with a question of discitis , patient CT was reviewed with the radiologist in person Dr Mora , patient did have a similar changes in the thoracic spine area on the CT dated all the way back to 2079 and possibly representing degenerative changes which have advanced, and there is no evidence of any surrounding soft tissue swelling or air, clinically behaving more of advanced osteoarthritis rather than o steomyelitis , may benefit from an outpatient MRI of the thoracic spine with contrast once her kidney function improved , this was discussed with pt and family in layman terms 4-Patient did have a significant improvement in her clinical condition patient is afebrile. White count has normalized blood culture negative sputum has not been collected we will continue patient on cefepime hopefully transition to oral antibiotic on discharge family at the bedside they have multiple questions and concerns were answered in layman term Time with Patient: Less than 30
[2022-11-28 02:07] LABS: Glucose,Whole Blood 189 mg/dL (70-110)
[2022-11-28] MEDS: CEFEPIME 1 GM in SODIUM CHLORIDE 0.9% 50 ML IVPB SCH ×2 (04:03→15:11)
[2022-11-28] MEDS: ACETAMINOPHEN TAB 325 MG TAB PO PRN ×2 (04:08→18:00)
[2022-11-28 06:06] LABS: Glucose,Whole Blood 197 mg/dL (70-110)
[2022-11-28] MEDS: INSULIN ASPART (NovoLOG) 100 UNIT/ML VIAL SQ SCH ×4 (06:51→21:11)
[2022-11-28] MEDS: ALBUTEROL HFA INHALER INHALATION SCH (07:37)
[2022-11-28] MEDS: HEPARIN SODIUM,PORCINE/PF 5,000 UNIT/0.5 ML SYRINGE SQ SCH ×2 (09:54→17:46)
[2022-11-28] MEDS: predniSONE 5 MG TAB PO SCH (09:55)
[2022-11-28] MEDS: MYCOPHENOLATE SODIUM DR 180 MG TABLET.DR PO SCH ×2 (09:55→21:10)
[2022-11-28] MEDS: TACROLIMUS 1 MG CAP PO SCH ×2 (09:55→21:09)
[2022-11-28] MEDS: THIAMINE 100 MG TAB PO SCH ×2 (09:56→21:10)
[2022-11-28] MEDS: SODIUM BICARBONATE TAB 650 MG TAB PO SCH ×3 (09:56→21:10)
[2022-11-28] MEDS: cloNIDine HCL 0.2 MG TAB PO SCH ×3 (09:56→21:10)
[2022-11-28] MEDS: amLODIPine 10 MG TAB PO SCH (09:56)
[2022-11-28] MEDS: carvediloL 12.5 MG TAB PO SCH ×2 (09:57→21:10)
[2022-11-28] MEDS: ASPIRIN 81 MG PO SCH (09:57)
[2022-11-28] MEDS: FAMOTIDINE 20 MG TAB PO SCH (09:57)
[2022-11-28 10:23] LABS: Basophils % (A) 0 %; Eosinophils # (A) 0.2 k/uL (0-0.7); Eosinophils % (A) 3 %; HCT 30.5 % (34.0-46.0); HGB 9.2 gm/dL (11.4-16.0); Hypochromasia Marked; Lymphocytes % (A) 15 %; MCH 27.6 pg (25.0-35.0); MCHC 30.2 g/dL (31.0-37.0); MCV 91.6 fL (80.0-100.0); Mean Platelet Volume 11.5; Monocytes # (A) 0.5 k/uL (0-1.0); Monocytes % (A) 8 %; Neutrophils # (A) 4.8 k/uL (1.3-7.7); Neutrophils % (A) 73 %; Platelet Count 196 k/uL (150-450); RBC 3.33 m/uL (3.80-5.40); RDW 14.4 % (11.5-15.5); WBC 6.6 k/uL (3.8-10.6)
[2022-11-28 10:27] LABS: African American GFR (CKD) 18 (>60 ml/min/1.73 sqM); Anion Gap 8 mmol/L; Blood Urea Nitrogen 47 mg/dL (7-17); Calcium 8.8 mg/dL (8.4-10.2); Carbon Dioxide 21 mmol/L (22-30); Chloride 105 mmol/L (98-107); Glucose 167 mg/dL (74-99); Non-African American GFR(CKD) 16 (>60 ml/min/1.73 sqM); Sodium 134 mmol/L (137-145)
[2022-11-28 10:42] LABS: Potassium 4.7 mmol/L (3.5-5.1)
--- NOTE | 2022-11-28 11:55 | P.PN ---
Subjective Progress Note Date: 11/28/22 Hospital Course: 72-year-old female with a PMH of kidney transplant, type II DM, hypertension, a nd hyperlipidemia who was brought into the emergency room by family with complaints of weakness and confusion. In the emergency room upon presentation, the patient's pulse was 109 with temp 99.3, SpO2 97% on room air, BP 180/106. Laboratory evaluation revealed leukocytosis of 18.6, troponin 10.10, hemoglobin 10.5 (similar to baseline), BUN 38, creatinine 3.0 (baseline), lactic acid 3.3. CT brain was unremarkable. Chest x-ray revealed bibasilar opacities consistent with pneumonia. EKG had revealed sinus tachycardia with T-wave inversion in leads II, III, aVF, V4-V6. Patient admitted for severe sepsis as well as non-ST elevation HI. Sepsis likely secondary to community-acquired pneumonia versus aspiration pneumonia. Currently on IV antibiotics, now broadened. Heparin drip was started, now off. Also has acute kidney injury. Cardiology and nephrology consulted. Mentation improving. CT chest, abdomen and pelvis shows extensive patchy and confluent airspace disease within the mid and lower lungs concerning for aspiration, right lower quadrant transplant kidney, moderate severe disc endplate degenerative changes at T10 to T11, possible discitis/osteomyelitis. ID is also consulted. Patient had change in mentation on 11/26 related to hypoglycemia, levemir held. Renal function improving. Will likely be discharged home on oral antibiotics. Subjective: Patient seen and examined at bedside. No acute events overnight. Mentation is good now. Denies any new complaints. Pertinent positives and negatives as discussed above, a complete review of systems was performed and all other systems are negative. Vitals Signs Reviewed. General: nontoxic, no acute distress, appears at stated age Derm: warm, dry Head: atraumatic, normocephalic, symmetric Eyes: EOMI, no lid lag, anicteric sclera Mouth: no lip lesion, mucus membranes moist Cardiovascular: S1S2 reg, no murmur Lungs: CTA bilateral, no rhonchi, no rales , no accessory muscle use Abdominal: soft, non-tender, no guarding, no appreciable organomegaly Ext: no gross muscle atrophy, no edema, no contractures Neuro: CN II-XI grossly intact, no focal neuro deficits Psych: Alert, oriented 3, appropriate affect Data Reviewed Today: Pertinent Labs: WBC 6.6, hemoglobin 9.2, sodium 134, creatinine 2.84, glucose range between 161-197 Imaging: No new imaging study Assessment and Plan: Active: Acute metabolic encephalopathy, resolved Severe sepsis likely secondary to community-acquired pneumonia versus aspiration pneumonia Non-ST elevation HI, demand ischemia Acute kidney injury , on CKD, likely secondary to acute allograft dysfunction, slowly improving history of renal transplant, on immunosuppressants Metabolic acidosis, resolved Insulin-dependent type 2 diabetes Hypertension, uncontrolled Hypokalemia, resolved Hypomagnesemia, resolved -Infectious disease following, on cefepime 1 g IV every 12 hours, blood cultures still negative growth to date -Swallowing evaluation- no impairment -Blood cultures negative growth to date -procal significantly elevated -Heparin drip discontinued, cardiology signed off -Continue aspirin and statin -Nephrology following, on clonidine, continue to hold losartan -Continue immunosuppression medications -Renal function slowly improving -Sliding scale insulin, home glargine discontinued given her episodes of hypoglycemia -Amlodipine and carvedilol Chronic: Dyslipidemia DVT ppx: Subcu heparin Code status: Full code Anticipated discharge place: Home Anticipated discharge time: Likely tomorrow on oral antibiotics Objective - Vital Signs Vital signs: Vital Signs Temp 98.0 F 11/28/22 08:10 Pulse 64 11/28/22 08:10 Resp 17 11/28/22 08:10 BP 160/79 11/28/22 08:10 Pulse Ox 99 11/28/22 08:10 FiO2 21 11/28/22 07:38 Intake & Output 11/27/22 11/28/22 11/28/22 18:59 06:59 18:59 Intake Total 1840 240 Output Total 200 250 Balance 1640 -250 240 Intake: Intake, IV Titration 600 Amount Cefepime 1 gm In Sodium 50 Chloride 0.9% 50 ml @ 12. 5 mls/hr IVPB Q12H [facility] Rx #:[id number] Dextrose 10% in Water 1, 400 000 ml @ 50 mls/hr IV . [id number] [facility] with Sodium Chloride 4Meq/ml Vial 153 .8 meq Rx#:[id number] Sodium Chloride 0.9% 1, 150 000 ml @ 50 mls/hr IV . Q20H [facility] Rx#:[id number] Oral 1240 240 Output: Urine 200 250 Urine/Stool Mix 0 Emesis 0 Oral Regurgitation 0 Other: Voiding Method Diaper Diaper Diaper External Catheter External Catheter External Catheter # Voids 0 # Bowel Movements 0 - Labs CBC & Chem 7: 11/28/22 07:34 11/28/22 07:34 Labs: Abnormal Lab Results - Last 24 Hours (Table) 11/27/22 11/27/22 11/28/22 Range/Units 16:32 20:03 02:00 RBC (3.80-5.40) m/uL Hgb (11.4-16.0) gm/dL Hct (34.0-46.0) % MCHC (31.0-37.0) g/dL Sodium (137-145) mmol/L Carbon Dioxide (22-30) mmol/L BUN (7-17) mg/dL Creatinine (0.52-1.04) mg/dL Glucose (74-99) mg/dL POC Glucose (mg/dL) 192 H 161 H 189 H (70-110) mg/dL 11/28/22 11/28/22 11/28/22 Range/Units 06:04 07:34 07:34 RBC 3.33 L (3.80-5.40) m/uL Hgb 9.2 L (11.4-16.0) gm/dL Hct 30.5 L (34.0-46.0) % MCHC 30.2 L (31.0-37.0) g/dL Sodium 134 L (137-145) mmol/L Carbon Dioxide 21 L (22-30) mmol/L BUN 47 H (7-17) mg/dL Creatinine 2.84 H (0.52-1.04) mg/dL Glucose 167 H (74-99) mg/dL POC Glucose (mg/dL) 197 H (70-110) mg/dL Microbiology - Last 24 Hours (Table) 11/24/22 00:15 Blood Culture - Preliminary Blood 11/24/22 00:45 Blood Culture - Preliminary Blood
[2022-11-28 12:00] LABS: Glucose,Whole Blood 201 mg/dL (70-110)
--- NOTE | 2022-11-28 15:34 | P.PN ---
Subjective Progress Note Date: 11/28/22 Follow-up for acute kidney injury. Admitted with syncopal episodes. Currently on heparin drip for non-STEMI. Urine output minimal. Objective - Vital Signs Vital signs: Vital Signs Temp 97.7 F 11/28/22 12:10 Pulse 66 11/28/22 14:00 Resp 17 11/28/22 14:00 BP 150/77 11/28/22 12:10 Pulse Ox 99 11/28/22 12:10 FiO2 21 11/28/22 07:38 Intake & Output 11/27/22 11/28/22 11/28/22 18:59 06:59 18:59 Intake Total 1840 240 Output Total 200 250 640 Balance 1640 -250 -400 Intake: Intake, IV Titration 600 Amount Cefepime 1 gm In Sodium 50 Chloride 0.9% 50 ml @ 12. 5 mls/hr IVPB Q12H [facility] Rx #:[id number] Dextrose 10% in Water 1, 400 000 ml @ 50 mls/hr IV . [id number] [facility] with Sodium Chloride 4Meq/ml Vial 153 .8 meq Rx#:[id number] Sodium Chloride 0.9% 1, 150 000 ml @ 50 mls/hr IV . Q20H [facility] Rx#:[id number] Oral 1240 240 Output: Urine 200 250 640 Urine/Stool Mix 0 Emesis 0 Oral Regurgitation 0 Other: Voiding Method Diaper Diaper Diaper External Catheter External Catheter External Catheter # Voids 0 # Bowel Movements 0 - Exam No acute distress S1-S2 heard Lungs clear Abdomen soft No edema - Labs CBC & Chem 7: 11/28/22 07:34 11/28/22 07:34 Labs: Abnormal Lab Results - Last 24 Hours (Table) 11/27/22 11/27/22 11/28/22 Range/Units 16:32 20:03 02:00 RBC (3.80-5.40) m/uL Hgb (11.4-16.0) gm/dL Hct (34.0-46.0) % MCHC (31.0-37.0) g/dL Sodium (137-145) mmol/L Carbon Dioxide (22-30) mmol/L BUN (7-17) mg/dL Creatinine (0.52-1.04) mg/dL Glucose (74-99) mg/dL POC Glucose (mg/dL) 192 H 161 H 189 H (70-110) mg/dL 11/28/22 11/28/22 11/28/22 Range/Units 06:04 07:34 07:34 RBC 3.33 L (3.80-5.40) m/uL Hgb 9.2 L (11.4-16.0) gm/dL Hct 30.5 L (34.0-46.0) % MCHC 30.2 L (31.0-37.0) g/dL Sodium 134 L (137-145) mmol/L Carbon Dioxide 21 L (22-30) mmol/L BUN 47 H (7-17) mg/dL Creatinine 2.84 H (0.52-1.04) mg/dL Glucose 167 H (74-99) mg/dL POC Glucose (mg/dL) 197 H (70-110) mg/dL 11/28/22 Range/Units 11:58 RBC (3.80-5.40) m/uL Hgb (11.4-16.0) gm/dL Hct (34.0-46.0) % MCHC (31.0-37.0) g/dL Sodium (137-145) mmol/L Carbon Dioxide (22-30) mmol/L BUN (7-17) mg/dL Creatinine (0.52-1.04) mg/dL Glucose (74-99) mg/dL POC Glucose (mg/dL) 201 H (70-110) mg/dL Microbiology - Last 24 Hours (Table) 11/24/22 00:15 Blood Culture - Preliminary Blood 11/24/22 00:45 Blood Culture - Preliminary Blood Assessment and Plan Assessment: #1 acute allograft dysfunction secondary to septic ATN. -Baseline creatinine 2.3 MG per DL. -Urine analysis 2+ protein, small blood and glucose. 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 #3 renal transplant in 2016 4 non-STEMI on heparin drip #5 systolic function with the EF of 40% and pulmonary hypertension. Plan: #1 creatinine remains high, stable. Urine output minimal. #2 continue with immunosuppression, tacrolimus, MMF and prednisone. -Follow-up on the tacrolimus level. Still pending #3 if renal function continues to remain high transferred to the transplant Center for renal biopsy. #4 avoid nephrotoxic agents and hypotensive episodes.
[2022-11-28 16:48] LABS: Glucose,Whole Blood 192 mg/dL (70-110)
[2022-11-28] MEDS: SODIUM CHLORIDE 0.9% 1,000 ML IV SCH (18:01)
[2022-11-28 20:34] LABS: Glucose,Whole Blood 242 mg/dL (70-110)
[2022-11-28] MEDS: ATORVASTATIN 80 MG TAB PO SCH (21:09)
[2022-11-29] MEDS: HEPARIN SODIUM,PORCINE/PF 5,000 UNIT/0.5 ML SYRINGE SQ SCH ×3 (00:44→17:50)
[2022-11-29 02:10] LABS: Glucose,Whole Blood 248 mg/dL (70-110)
[2022-11-29] MEDS: CEFEPIME 1 GM in SODIUM CHLORIDE 0.9% 50 ML IVPB SCH ×2 (04:44→17:49)
[2022-11-29 06:18] LABS: Glucose,Whole Blood 220 mg/dL (70-110)
[2022-11-29] MEDS: SODIUM CHLORIDE 0.9% 1,000 ML IV SCH (06:39)
[2022-11-29] MEDS: INSULIN ASPART (NovoLOG) 100 UNIT/ML VIAL SQ SCH ×4 (06:42→22:27)
[2022-11-29] MEDS: THIAMINE 100 MG TAB PO SCH ×2 (08:24→22:27)
[2022-11-29] MEDS: FAMOTIDINE 20 MG TAB PO SCH (08:25)
[2022-11-29] MEDS: ASPIRIN 81 MG PO SCH (08:25)
[2022-11-29] MEDS: amLODIPine 10 MG TAB PO SCH (08:26)
[2022-11-29] MEDS: carvediloL 12.5 MG TAB PO SCH ×2 (08:26→22:26)
[2022-11-29] MEDS: predniSONE 5 MG TAB PO SCH (08:26)
[2022-11-29] MEDS: cloNIDine HCL 0.2 MG TAB PO SCH ×3 (08:27→22:28)
[2022-11-29] MEDS: SODIUM BICARBONATE TAB 650 MG TAB PO SCH ×3 (08:29→22:39)
[2022-11-29] MEDS: TACROLIMUS 1 MG CAP PO SCH ×2 (08:30→22:28)
[2022-11-29] MEDS: MYCOPHENOLATE SODIUM DR 180 MG TABLET.DR PO SCH ×2 (08:31→22:27)
[2022-11-29 08:53] LABS: African American GFR (CKD) 19 (>60 ml/min/1.73 sqM); Anion Gap 7 mmol/L; Blood Urea Nitrogen 46 mg/dL (7-17); Calcium 8.8 mg/dL (8.4-10.2); Carbon Dioxide 20 mmol/L (22-30); Chloride 108 mmol/L (98-107); Glucose 195 mg/dL (74-99); Non-African American GFR(CKD) 16 (>60 ml/min/1.73 sqM); Sodium 135 mmol/L (137-145)
[2022-11-29 09:01] LABS: Potassium 5.3 mmol/L (3.5-5.1)
[2022-11-29] MEDS: ALBUTEROL HFA INHALER INHALATION SCH (09:47)
[2022-11-29 11:39] LABS: Glucose,Whole Blood 209 mg/dL (70-110)
[2022-11-29] MEDS ORDERED: SODIUM ZIRCONIUM CYCLOSILICATE 10 GM PACKET PO ONE (12:16)
--- NOTE | 2022-11-29 12:26 | P.PN ---
Subjective Progress Note Date: 11/28/22 Principal diagnosis: Pneumonia and abdominal CT to the thoracic spine Patient is a 72-year-old -[place] female with multiple comorbidities including end-stage renal disease status post cadaveric transplant in 2014 on immunosuppressive medication presenting to the hospital with not feeling well shortness of breath and cough, patient does exhibit bibasilar airspace disease CT of the chest abdominal pelvis 8disease in the lower lung also showed abnormality of the T10-T11 disc. On today's evaluation that is 11/28/2022, the patient remains to be afebrile the patient is breathing comfortably on 2 L nasal cannula. The patient denies having any chest pain no worsening cough or sputum reduction abdominal pain and no diarrhea no worsening back pain Objective - Vital Signs Vital signs: Vital Signs Temp 97.7 F 11/28/22 12:10 Pulse 66 11/28/22 14:00 Resp 17 11/28/22 14:00 BP 150/77 11/28/22 12:10 Pulse Ox 99 11/28/22 12:10 FiO2 21 11/28/22 07:38 Intake & Output 11/27/22 11/28/22 11/28/22 18:59 06:59 18:59 Intake Total 1840 240 Output Total 200 250 640 Balance 1640 -250 -400 Intake: Intake, IV Titration 600 Amount Cefepime 1 gm In Sodium 50 Chloride 0.9% 50 ml @ 12. 5 mls/hr IVPB Q12H [facility] Rx #:[id number] Dextrose 10% in Water 1, 400 000 ml @ 50 mls/hr IV . [id number] [facility] with Sodium Chloride 4Meq/ml Vial 153 .8 meq Rx#:[id number] Sodium Chloride 0.9% 1, 150 000 ml @ 50 mls/hr IV . Q20H [facility] Rx#:[id number] Oral 1240 240 Output: Urine 200 250 640 Urine/Stool Mix 0 Emesis 0 Oral Regurgitation 0 Other: Voiding Method Diaper Diaper Diaper External Catheter External Catheter External Catheter # Voids 0 # Bowel Movements 0 - Exam GENERAL DESCRIPTION: An elderly female lying in bed in no distress RESPIRATORY SYSTEM: Unlabored breathing , decreased breath sounds at bases HEART: S1 S2 regular rate and rhythm , ABDOMEN: Soft , no tenderness EXTREMITIES: No edema feet - Labs CBC & Chem 7: 11/28/22 07:34 11/29/22 07:25 Labs: Abnormal Lab Results - Last 24 Hours (Table) 11/27/22 11/27/22 11/28/22 Range/Units 16:32 20:03 02:00 RBC (3.80-5.40) m/uL Hgb (11.4-16.0) gm/dL Hct (34.0-46.0) % MCHC (31.0-37.0) g/dL Sodium (137-145) mmol/L Carbon Dioxide (22-30) mmol/L BUN (7-17) mg/dL Creatinine (0.52-1.04) mg/dL Glucose (74-99) mg/dL POC Glucose (mg/dL) 192 H 161 H 189 H (70-110) mg/dL 11/28/22 11/28/22 11/28/22 Range/Units 06:04 07:34 07:34 RBC 3.33 L (3.80-5.40) m/uL Hgb 9.2 L (11.4-16.0) gm/dL Hct 30.5 L (34.0-46.0) % MCHC 30.2 L (31.0-37.0) g/dL Sodium 134 L (137-145) mmol/L Carbon Dioxide 21 L (22-30) mmol/L BUN 47 H (7-17) mg/dL Creatinine 2.84 H (0.52-1.04) mg/dL Glucose 167 H (74-99) mg/dL POC Glucose (mg/dL) 197 H (70-110) mg/dL 11/28/22 Range/Units 11:58 RBC (3.80-5.40) m/uL Hgb (11.4-16.0) gm/dL Hct (34.0-46.0) % MCHC (31.0-37.0) g/dL Sodium (137-145) mmol/L Carbon Dioxide (22-30) mmol/L BUN (7-17) mg/dL Creatinine (0.52-1.04) mg/dL Glucose (74-99) mg/dL POC Glucose (mg/dL) 201 H (70-110) mg/dL Microbiology - Last 24 Hours (Table) 11/24/22 00:15 Blood Culture - Preliminary Blood 11/24/22 00:45 Blood Culture - Preliminary Blood Assessment and Plan (1) Abnormal computed tomography of thoracic spine Current Visit: Yes Status: Acute Code(s): R93.7 - ABNORMAL FINDINGS ON DIAGNOSTIC IMAGING OF PRT MS CHEEMA SNOMED Code(s): 706392924 (2) Pneumonia Current Visit: Yes Status: Acute Code(s): J18.9 - PNEUMONIA, UNSPECIFIED ORGANISM SNOMED Code(s): 664348632 Plan: 1patient presented to hospital with not feeling well shortness of breath and cough with evidence of pneumonia on the chest x-ray as well as a CT with concern for possible pneumonia and likely community-acquired resistant gram-negative not entirely excluded 2-patient also have abnormality of the thoracic spine on the CT with a question of discitis , patient CT was reviewed with the radiologist in person Dr Mora , patient did have a similar changes in the thoracic spine area on the CT dated all the way back to 2079 and possibly representing degenerative changes which have advanced, and there is no evidence of any surrounding soft tissue swelling or air, clinically behaving more of advanced osteoarthritis rather than osteomyelitis , may benefit from an outpatient MRI of the thoracic spine with contrast once her kidney function improved , this was discussed with pt and family in layman terms 4-Patient did have a significant improvement in her clinical condition patient is afebrile. White count has normalized blood culture negative sputum has not been collected , plan is to continue the patient on cefepime while inpatient and hopefully finishing therapy with oral antibiotic on discharge Time with Patient: Less than 30
--- NOTE | 2022-11-29 12:27 | P.PN ---
Subjective Progress Note Date: 11/29/22 Principal diagnosis: Pneumonia and abdominal CT to the thoracic spine Patient is a 72-year-old -[place] female with multiple comorbidities including end-stage renal disease status post cadaveric transplant in 2014 on immunosuppressive medication presenting to the hospital with not feeling well shortness of breath and cough, patient does exhibit bibasilar airspace disease CT of the chest abdominal pelvis 8disease in the lower lung also showed abnormality of the T10-T11 disc. On today's evaluation that is 11/29/2022, the patient denies any fever or chills, the patient is breathing comfortably on room air, The patient denies having any chest pain no worsening cough or sputum , the patient denies abdominal pain and no diarrhea Objective - Vital Signs Vital signs: Vital Signs Temp 98.2 F 11/29/22 07:46 Pulse 67 11/29/22 07:46 Resp 16 11/29/22 07:46 BP 150/70 11/29/22 07:46 Pulse Ox 100 11/29/22 09:50 FiO2 21 11/28/22 07:38 Intake & Output 11/28/22 11/29/22 11/29/22 18:59 06:59 18:59 Intake Total 240 180 Output Total 640 100 Balance -400 -100 180 Intake: Oral 240 180 Output: Urine 640 100 Other: Voiding Method Diaper Diaper Diaper External Catheter External Catheter # Voids 1 1 # Bowel Movements 1 - Exam GENERAL DESCRIPTION: An elderly female lying in bed in no distress RESPIRATORY SYSTEM: Unlabored breathing , decreased breath sounds at bases HEART: S1 S2 regular rate and rhythm , ABDOMEN: Soft , no tenderness EXTREMITIES: No edema feet - Labs CBC & Chem 7: 11/28/22 07:34 11/29/22 07:25 Labs: Abnormal Lab Results - Last 24 Hours (Table) 11/28/22 11/28/22 11/28/22 Range/Units 11:58 16:46 20:32 Sodium (137-145) mmol/L Potassium (3.5-5.1) mmol/L Chloride (98-107) mmol/L Carbon Dioxide (22-30) mmol/L BUN (7-17) mg/dL Creatinine (0.52-1.04) mg/dL Glucose (74-99) mg/dL POC Glucose (mg/dL) 201 H 192 H 242 H (70-110) mg/dL 11/29/22 11/29/22 11/29/22 Range/Units 02:07 06:17 07:25 Sodium 135 L (137-145) mmol/L Potassium 5.3 H (3.5-5.1) mmol/L Chloride 108 H (98-107) mmol/L Carbon Dioxide 20 L (22-30) mmol/L BUN 46 H (7-17) mg/dL Creatinine 2.80 H (0.52-1.04) mg/dL Glucose 195 H (74-99) mg/dL POC Glucose (mg/dL) 248 H 220 H (70-110) mg/dL Assessment and Plan (1) Abnormal computed tomography of thoracic spine Current Visit: Yes Status: Acute Code(s): R93.7 - ABNORMAL FINDINGS ON DIAGNOSTIC IMAGING OF PRT MS MALIAS SNOMED Code(s): 861866326 (2) Pneumonia Current Visit: Yes Status: Acute Code(s): J18.9 - PNEUMONIA, UNSPECIFIED ORGANISM SNOMED Code(s): 854392376 Plan: 1patient presented to hospital with not feeling well shortness of breath and cough with evidence of pneumonia on the chest x-ray as well as a CT with concern for possible pneumonia and likely community-acquired resistant gram-negative not entirely excluded 2-patient also have abnormality of the thoracic spine on the CT with a question of discitis , patient CT was reviewed with the radiologist in person Dr Mora , patient did have a similar changes in the thoracic spine area on the CT dated all the way back to 2079 and possibly representing degenerative changes which have advanced, and there is no evidence of any surrounding soft tissue swelling or air, clinically behaving more of advanced osteoarthritis rather than osteomyelitis , may benefit from an outpatient MRI of the thoracic spine with contrast once her kidney function improved , this was discussed with pt and family in layman terms 4-Patient did have a significant improvement in her clinical condition patient is afebrile. White count has normalized blood culture negative sputum has not been collected , patient to continue the patient on cefepime while inpatient and plan to finish therapy with oral Ceftin 7 days on discharge Time with Patient: Less than 30
--- NOTE | 2022-11-29 13:51 | P.PN ---
Subjective Patient is seen for follow-up of acute kidney injury. 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 Patient has had episodes of rejection with baseline creatinine around 2.3 mg/dL. Serum creatinine staying at about 2.8 mg/dL for the last 2 days. Patient states she has been voiding Not on any IV fluids Tolerating oral intake. Status post lokelma for potassium of 5.3 today. Objective - Vital Signs Vital signs: Vital Signs Temp 98.2 F 11/29/22 07:46 Pulse 67 11/29/22 07:46 Resp 16 11/29/22 07:46 BP 150/70 11/29/22 07:46 Pulse Ox 100 11/29/22 09:50 FiO2 21 11/28/22 07:38 Intake & Output 11/28/22 11/29/22 11/29/22 18:59 06:59 18:59 Intake Total 240 180 Output Total 640 100 135 Balance -400 -100 45 Intake: Oral 240 180 Output: Urine 640 100 Post Void Residual 135 Other: Voiding Method Diaper Diaper Diaper External Catheter External Catheter # Voids 1 1 # Bowel Movements 1 - Exam Patient is awake, comfortable, no acute distress Examination of the heart S1 and S2 Examination of the lungs bilateral breath sounds are heard Abdomen is soft nontender Examination lower extremities shows no significant edema 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 - Labs CBC & Chem 7: 11/28/22 07:34 11/29/22 07:25 Labs: Abnormal Lab Results - Last 24 Hours (Table) 11/28/22 11/28/22 11/29/22 Range/Units 16:46 20:32 02:07 Sodium (137-145) mmol/L Potassium (3.5-5.1) mmol/L Chloride (98-107) mmol/L Carbon Dioxide (22-30) mmol/L BUN (7-17) mg/dL Creatinine (0.52-1.04) mg/dL Glucose (74-99) mg/dL POC Glucose (mg/dL) 192 H 242 H 248 H (70-110) mg/dL 11/29/22 11/29/22 11/29/22 Range/Units 06:17 07:25 11:37 Sodium 135 L (137-145) mmol/L Potassium 5.3 H (3.5-5.1) mmol/L Chloride 108 H (98-107) mmol/L Carbon Dioxide 20 L (22-30) mmol/L BUN 46 H (7-17) mg/dL Creatinine 2.80 H (0.52-1.04) mg/dL Glucose 195 H (74-99) mg/dL POC Glucose (mg/dL) 220 H 209 H (70-110) mg/dL Microbiology - Last 24 Hours (Table) 11/24/22 00:15 Blood Culture - Final Blood 11/24/22 00:45 Blood Culture - Final Blood Assessment and Plan Assessment: 1. Acute allograft dysfunction secondary to ATN. Serum creatinine seems to have stabilized at 2.8. Check post void residual residual rule out urine retention. Currently not on any IV fluids. Baseline creatinine around 2.3 mg/dL 2. CK D stage III B to 4 with recent rejection in September 2021 treated with steroids and IVIG 3. Cardiomyopathy with ejection fraction of 40% with moderate tricuspid regurgitation 4. Community-acquired pneumonia maintained on antibiotics 5. Mild hyperkalemia associated with underlying chronic kidney disease and use of calcineurin inhibitors Plan: Add gentle IV hydration for 24 hours Check tacrolimus level Patient can be discharged tomorrow if she remains stable.
[2022-11-29 15:50] LABS: Glucose,Whole Blood 207 mg/dL (70-110)
--- NOTE | 2022-11-29 18:18 | P.PN ---
Subjective Progress Note Date: 11/29/22 (delayed charting seen at 1215) Patient is a 72-year-old female with kidney transplant on immunosuppressive therapy, diabetes mellitus type 2, hypertension, and dyslipidemia who presented to the ER with pneumonia and altered mentation. Patient seen and examined at bedside. She is upset and wants to be discharged home. We discussed that her renal function has not yet stabilized and her potassium is slowly increasing. She states that she takes a potassium lowering substance at home 1 packet daily. She denies any nausea, vomiting, shortness of breath, or cough. Vital signs reviewed General: nontoxic, no distress, appears at stated age Cardiovascular: S1S2 reg, no murmur, positive posterior tibial pulse bilateral, Lungs: CTA bilateral, no rhonchi, no rales , no accessory muscle use Abdominal: soft, nontender to palpation, no guarding, no appreciable organomegaly Ext: no gross muscle atrophy, no edema b/l lower extremities, no contractures Neuro: CN II-XI grossly intact, no focal neuro deficits Psych: Alert, oriented, appropriate affect Assessment: Hyperkalemia Acute metabolic encephalopathy, resolved Severe sepsis likely secondary to community-acquired pneumonia versus aspiration pneumonia Non-ST elevation CT, demand ischemia Acute kidney injury , 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 treated wtih steroids adn IVIG, likely secondary to acute allograft dysfunction history of renal transplant, on immunosuppressants Metabolic acidosis Insulin-dependent type 2 diabetes, A1C 6.3 Hypertension, uncontrolled Hypokalemia, resolved Hypomagnesemia, resolved Imaging: None new Data Review: Vitals reviewed from today and patient is afebrile, temperature 98.2, pulse 67, respirations 16, blood pressure 150/70, O2 sat 98% on room air Labs revealed sodium 135, potassium 5.3, chloride 108, carbon dioxide 20, BUN 46, creatinine 2.80, and fasting blood sugar 220 Plan: -Resume patient's glaucoma, she takes 10 mg at home we'll start at 5 -Nephrology note reviewed add gentle IV hydration and check tacrolimus level. If creatinine is stable, likely be discharged home tomorrow. - ID note reviewed- Complete course of oral ceftin X 7 days on dicharge - Lipitor 80 mg nightly -Coreg 25 mg twice daily -Cefepime 1 g every 12 hours -Catapres 0.2 mg 3 times daily -Mycophenolate 360 mg twice daily, tobacco 5 mg daily, prednisone 5 mg daily - Continue sodium bicarbonate 1300 mg 3 times daily -Patient's hyperglycemia will resume long-acting insulin. Start with Levemir 10 units at night. Patient usually takes Lantus 35 mg at night DVT prophylaxis: Heparin Anticipated discharge date: in 24-[address]: home This dictation was prepared using [employer] voice recognition software. Though every attempt is made to correct errors during dictation some may still exist. Objective - Vital Signs Vital signs: Vital Signs Temp 97.8 F 11/29/22 12:42 Pulse 82 11/29/22 12:42 Resp 18 11/29/22 12:42 BP 157/72 11/29/22 12:42 Pulse Ox 98 11/29/22 12:42 FiO2 21 11/28/22 07:38 Intake & Output 11/28/22 11/29/22 11/29/22 18:59 06:59 18:59 Intake Total 240 180 Output Total 640 100 135 Balance -400 -100 45 Intake: Oral 240 180 Output: Urine 640 100 Post Void Residual 135 Other: Voiding Method Diaper Diaper Diaper External Catheter External Catheter # Voids 1 1 1 # Bowel Movements 1 - Labs CBC & Chem 7: 11/28/22 07:34 11/29/22 07:25 Labs: Abnormal Lab Results - Last 24 Hours (Table) 11/28/22 11/29/22 11/29/22 Range/Units 20:32 02:07 06:17 Sodium (137-145) mmol/L Potassium (3.5-5.1) mmol/L Chloride (98-107) mmol/L Carbon Dioxide (22-30) mmol/L BUN (7-17) mg/dL Creatinine (0.52-1.04) mg/dL Glucose (74-99) mg/dL POC Glucose (mg/dL) 242 H 248 H 220 H (70-110) mg/dL 11/29/22 11/29/22 11/29/22 Range/Units 07:25 11:37 15:48 Sodium 135 L (137-145) mmol/L Potassium 5.3 H (3.5-5.1) mmol/L Chloride 108 H (98-107) mmol/L Carbon Dioxide 20 L (22-30) mmol/L BUN 46 H (7-17) mg/dL Creatinine 2.80 H (0.52-1.04) mg/dL Glucose 195 H (74-99) mg/dL POC Glucose (mg/dL) 209 H 207 H (70-110) mg/dL Microbiology - Last 24 Hours (Table) 11/24/22 00:15 Blood Culture - Final Blood 11/24/22 00:45 Blood Culture - Final Blood
[2022-11-29 20:12] LABS: Glucose,Whole Blood 183 mg/dL (70-110)
[2022-11-29] MEDS ORDERED: INSULIN DETEMIR (LEVEMIR) 100 UNIT/ML SYR SQ SCH (21:00)
[2022-11-29] MEDS: ATORVASTATIN 80 MG TAB PO SCH (22:27)
[2022-11-30] MEDS: HEPARIN SODIUM,PORCINE/PF 5,000 UNIT/0.5 ML SYRINGE SQ SCH ×2 (00:15→09:16)
[2022-11-30 02:04] LABS: Glucose,Whole Blood 190 mg/dL (70-110)
[2022-11-30] MEDS: SODIUM CHLORIDE 0.9% 1,000 ML IV SCH (04:10)
[2022-11-30] MEDS: CEFEPIME 1 GM in SODIUM CHLORIDE 0.9% 50 ML IVPB SCH (04:15)
[2022-11-30 06:03] LABS: Glucose,Whole Blood 118 mg/dL (70-110)
[2022-11-30] MEDS: INSULIN ASPART (NovoLOG) 100 UNIT/ML VIAL SQ SCH ×2 (06:35→13:40)
[2022-11-30 06:38] VITALS: TEMP 98.1
[2022-11-30] MEDS: FAMOTIDINE 20 MG TAB PO SCH (09:14)
[2022-11-30] MEDS: THIAMINE 100 MG TAB PO SCH (09:15)
[2022-11-30] MEDS: carvediloL 12.5 MG TAB PO SCH (09:15)
[2022-11-30] MEDS: amLODIPine 10 MG TAB PO SCH (09:15)
[2022-11-30] MEDS: cloNIDine HCL 0.2 MG TAB PO SCH (09:15)
[2022-11-30] MEDS: TACROLIMUS 1 MG CAP PO SCH (09:16)
[2022-11-30] MEDS: ASPIRIN 81 MG PO SCH (09:16)
[2022-11-30] MEDS: SODIUM BICARBONATE TAB 650 MG TAB PO SCH (09:16)
[2022-11-30] MEDS: MYCOPHENOLATE SODIUM DR 180 MG TABLET.DR PO SCH (09:17)
[2022-11-30] MEDS: predniSONE 5 MG TAB PO SCH (09:17)
[2022-11-30 09:30] LABS: HCT 27.4 % (34.0-46.0); HGB 8.4 gm/dL (11.4-16.0); Hypochromasia Moderate; MCH 27.6 pg (25.0-35.0); MCHC 30.6 g/dL (31.0-37.0); MCV 90.4 fL (80.0-100.0); Mean Platelet Volume 10.8; Platelet Count 231 k/uL (150-450); RBC 3.03 m/uL (3.80-5.40); RDW 14.3 % (11.5-15.5)
[2022-11-30] MEDS: ALBUTEROL HFA INHALER INHALATION SCH (09:32)
[2022-11-30 09:43] LABS: African American GFR (CKD) 20 (>60 ml/min/1.73 sqM); Anion Gap 6 mmol/L; Blood Urea Nitrogen 43 mg/dL (7-17); Calcium 8.9 mg/dL (8.4-10.2); Carbon Dioxide 22 mmol/L (22-30); Chloride 107 mmol/L (98-107); Glucose 91 mg/dL (74-99); Non-African American GFR(CKD) 17 (>60 ml/min/1.73 sqM); Sodium 135 mmol/L (137-145)
[2022-11-30 09:45] LABS: Potassium 4.5 mmol/L (3.5-5.1)
[2022-11-30 11:36] LABS: Glucose,Whole Blood 87 mg/dL (70-110)
--- NOTE | 2022-11-30 11:39 | P.PN ---
Subjective Patient is seen for follow-up of acute kidney injury. 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 Patient has had episodes of rejection with baseline creatinine around 2.3 mg/dL. Serum creatinine staying at about 2.8 mg/dL , decreased to 2.6 today. Patient states she has been voiding Started on IV fluids yesterday. Tolerating oral intake. Status post lokelma for potassium of 5.3 yesterday. Patient is maintained on lokelma as outpatient. No urine retention noted. Objective - Vital Signs Vital signs: Vital Signs Temp 98.1 F 11/30/22 04:00 Pulse 83 11/30/22 09:13 Resp 18 11/30/22 09:13 BP 128/69 11/30/22 09:13 Pulse Ox 97 11/30/22 09:34 FiO2 21 11/28/22 07:38 Intake & Output 11/29/22 11/30/22 11/30/22 18:59 06:59 18:59 Intake Total 180 240 Output Total 135 400 Balance 45 -160 Intake: Oral 180 240 Output: Urine 400 Post Void Residual 135 Other: Voiding Method Diaper Diaper Diaper # Voids 2 1 - Exam Patient is awake, comfortable, no acute distress Examination of the heart S1 and S2 Examination of the lungs bilateral breath sounds are heard Abdomen is soft nontender Examination lower extremities shows no significant edema SPECIAL 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 CASE MANAGER exam grossly intact - Labs CBC & Chem 7: 11/30/22 09:13 11/30/22 09:13 Labs: Abnormal Lab Results - Last 24 Hours (Table) 11/29/22 11/29/22 11/29/22 Range/Units 11:37 15:48 20:10 RBC (3.80-5.40) m/uL Hgb (11.4-16.0) gm/dL Hct (34.0-46.0) % MCHC (31.0-37.0) g/dL Sodium (137-145) mmol/L BUN (7-17) mg/dL Creatinine (0.52-1.04) mg/dL POC Glucose (mg/dL) 209 H 207 H 183 H (70-110) mg/dL 11/30/22 11/30/22 11/30/22 Range/Units 02:02 05:59 09:13 RBC (3.80-5.40) m/uL Hgb (11.4-16.0) gm/dL Hct (34.0-46.0) % MCHC (31.0-37.0) g/dL Sodium 135 L (137-145) mmol/L BUN 43 H (7-17) mg/dL Creatinine 2.65 H (0.52-1.04) mg/dL POC Glucose (mg/dL) 190 H 118 H (70-110) mg/dL 11/30/22 Range/Units 09:13 RBC 3.03 L (3.80-5.40) m/uL Hgb 8.4 L (11.4-16.0) gm/dL Hct 27.4 L (34.0-46.0) % MCHC 30.6 L (31.0-37.0) g/dL Sodium (137-145) mmol/L BUN (7-17) mg/dL Creatinine (0.52-1.04) mg/dL POC Glucose (mg/dL) (70-110) mg/dL Microbiology - Last 24 Hours (Table) 11/24/22 00:15 Blood Culture - Final Blood 11/24/22 00:45 Blood Culture - Final Blood Assessment and Plan Assessment: 1. Acute allograft dysfunction secondary to ATN. Serum creatinine seems to have stabilized at 2.8. No urine retention noted. Baseline creatinine around 2.3-2.8 mg/dL 2. CK D stage III B to 4 with recent rejection in September 2021 treated with steroids and IVIG 3. Cardiomyopathy with ejection fraction of 40% with moderate tricuspid regurgitation 4. Community-acquired pneumonia maintained on antibiotics 5. Mild hyperkalemia associated with underlying chronic kidney disease and use of calcineurin inhibitors. Tacrolimus level drawn this morning Plan: DC IV fluids Okay to discharge patient in follow-up with transplant Continue with [facility] Follow-up on tacrolimus level
--- NOTE | 2022-11-30 11:56 | P.PN ---
Subjective Progress Note Date: 11/30/22 Principal diagnosis: Pneumonia and abdominal CT to the thoracic spine Patient is a 72-year-old -[place] female with multiple comorbidities including end-stage renal disease status post cadaveric transplant in 2014 on immunosuppressive medication presenting to the hospital with not feeling well shortness of breath and cough, patient does exhibit bibasilar airspace disease CT of the chest abdominal pelvis 8disease in the lower lung also showed abnormality of the T10-T11 disc. On today's evaluation that is 11/30/2022, the patient remains to be afebrile, the patient is breathing comfortably on room air, The patient denies chest pain , cough has decreased in intensity and mostly dry in nature, the patient denies abdominal pain and no diarrhea Objective - Vital Signs Vital signs: Vital Signs Temp 98.1 F 11/30/22 04:00 Pulse 83 11/30/22 09:13 Resp 18 11/30/22 09:13 BP 128/69 11/30/22 09:13 Pulse Ox 97 11/30/22 09:13 FiO2 21 11/28/22 07:38 Intake & Output 11/29/22 11/30/22 11/30/22 18:59 06:59 18:59 Intake Total 180 240 Output Total 135 400 Balance 45 -160 Intake: Oral 180 240 Output: Urine 400 Post Void Residual 135 Other: Voiding Method Diaper Diaper # Voids 2 1 - Exam GENERAL DESCRIPTION: An elderly female lying in bed in no distress RESPIRATORY SYSTEM: Unlabored breathing , decreased breath sounds at bases HEART: S1 S2 regular rate and rhythm , ABDOMEN: Soft , no tenderness EXTREMITIES: No edema feet - Labs CBC & Chem 7: 11/30/22 09:13 11/30/22 09:13 Labs: Abnormal Lab Results - Last 24 Hours (Table) 11/29/22 11/29/22 11/29/22 Range/Units 11:37 15:48 20:10 POC Glucose (mg/dL) 209 H 207 H 183 H (70-110) mg/dL 11/30/22 11/30/22 Range/Units 02:02 05:59 POC Glucose (mg/dL) 190 H 118 H (70-110) mg/dL Microbiology - Last 24 Hours (Table) 11/24/22 00:15 Blood Culture - Final Blood 11/24/22 00:45 Blood Culture - Final Blood Assessment and Plan (1) Abnormal computed tomography of thoracic spine Current Visit: Yes Status: Acute Code(s): R93.7 - ABNORMAL FINDINGS ON DIAGNOSTIC IMAGING OF PRT MS CHEEMA SNOMED Code(s): 195349325 (2) Pneumonia Current Visit: Yes Status: Acute Code(s): J18.9 - PNEUMONIA, UNSPECIFIED ORGANISM SNOMED Code(s): 655845888 Plan: 1patient presented to hospital with not feeling well shortness of breath and cough with evidence of pneumonia on the chest x-ray as well as a CT with concern for possible pneumonia and likely community-acquired resistant gram-negative not entirely excluded 2-patient also have abnormality of the thoracic spine on the CT with a question of discitis , patient CT was reviewed with the radiologist in person Dr Mora , patient did have a similar changes in the thoracic spine area on the CT dated all the way back to 2079 and possibly representing degenerative changes which have advanced, and there is no evidence of any surrounding soft tissue swelling or air, clinically behaving more of advanced osteoarthritis rather than osteomyelitis , may benefit from an outpatient MRI of the thoracic spine with contrast once her kidney function improved , this was discussed with pt and family in layman terms 4-Patient has shown clinical improvement in her clinical condition patient is afebrile. White count has normalized blood culture negative sputum has not been collected , patient currently being treated with cefepime , and plan to finish therapy with oral Ceftin 7 days on discharge monitor clinical course closely Time with Patient: Less than 30
[2022-11-30 14:02] VITALS: BP 112/62; PULSE 80; RESP 16
--- NOTE | 2022-11-30 14:34 | P.DS ---
Providers Date of admission: 11/23/22 23:47 Expected date of discharge: 11/30/22 Attending physician: Kaitlyn Main MD Consults: 11/24/22 11:21 Consult Physician Stat Consulting Provider: Oscar Whyte Consult Reason/Comments: NSTEMI Do you want consulting provider notified?: Yes Consult Physician Urgent Consulting Provider: Juan Manuel Clark Consult Reason/Comments: JONES, renal transplant Do you want consulting provider notified?: Yes 11/24/22 16:31 Consult Physician Routine Consulting Provider: Kim Blackwood Consult Reason/Comments: severe sepsis, PNA, possible discitis/OM of T spine Do you want consulting provider notified?: Yes Primary care physician: Stated None Hospital Course: Discharge Diagnosis: Severe sepsis likely secondary to community-acquired pneumonia versus aspiration pneumonia Non-ST elevation NH, demand ischemia Acute metabolic encephalopathy, resolved Acute kidney injury , 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 treated wtih steroids adn IVIG, likely secondary to acute allograft dysfunction history of renal transplant, on immunosuppressants Metabolic acidosis Insulin-dependent type 2 diabetes, A1C 6.3 Hypertension, uncontrolled Hypokalemia, resolved Hypomagnesemia, resolved Hyperkalemia Hospital Course: Patient is a 72-year-old female status post kidney transplant on immu nosuppressive no suppressive agents with tacrolimus, CellCept, and prednisone as well as insulin-dependent type 2 diabetes mellitus, hypertension, and dyslipidemia who initially presented to the emergency room with complaints of weakness and confusion. In the ER she underwent an extensive evaluation. On arrival she was found to be hypertensive with a blood pressure of 180/106. Laboratory analysis was remarkable for a leukocytosis of 18.6, troponin of 10.1, and lactic acid of 3.3. She underwent a CT brain which was unremarkable. Chest x-ray showed bilateral opacities consistent with pneumonia. Her EKG showed sinus tachycardia with T-wave inversion in leads 2, 3, aVF, and V4 through V6. Patient was admitted for pneumonia with severe sepsis and non-ST segment elevated myocardial infarction. She was initially started on IV fluids, Rocephin, and Zithromax. Cardiology, infectious disease, and nephrology were consulted. Her initial antibiotics were broadened and she was started on a heparin drip. She underwent a CT chest abdomen and pelvis which showed extensive patchy and confluent airspace disease of the mid and lower lungs concerning for aspiration, right lower quadrant kidney transplant, moderate severe disc disease T10/11 and possible discitis/osteomyelitis. She underwent an echocardiogram which showed an ejection fraction of 40-45% with severe pulmonary hypertension, moderate to severe mitral regurgitation, and moderate tricuspid regurgitation. Cardiology recommended further outpatient workup with Dr. Whyte and sign off the patient. Infectious disease reviewed the computed tomography scan with radiology and it appears these are chronic changes in the spine and likely represent degenerative disc disease. Her renal function slowly improved. Her leukocytosis resolved. Her mentation continued to improve. She was ultimately determined stable for discharge. Follow-up: Patient will complete an additional 7 days of Ceftin. She will follow up with her transplant turf farmer in 1 week. Due to her kidney dysfunction she was taken off of her losartan and transition to Catapres for blood pressure control. She should follow with her primary care provider in 2-3 days. During her hospital stay she did have an episode of hypoglycemia and therefore her long-acting insulin was decreased. We recommended that she resume Lantus at 12 units at night at home and slowly increased as her appetite return. Patient seen and examined at bedside with daughter present. She denies any chest pain, shortness breath, nausea, vomiting. She still feels as though she is having a hard time thinking but it is improving every day. Vital signs reviewed and stable. General: nontoxic, no distress, appears at stated age Cardiovascular: S1S2 reg, no murmur, positive posterior tibial pulse bilateral, Lungs: Coarse breath sounds bilateral bilateral, no rhonchi, no rales , no accessory muscle use Neuro: CN II-XI grossly intact, no focal neuro deficits Psych: Alert, oriented, appropriate affect A total of 37 minutes of time were spent preparing this complex discharge summary. Patient was discharged on 11/30/22. This dictation was prepared using [employer] voice recognition software. Though every attempt is made to correct errors during dictation some may still exist. Patient Condition at Discharge: Stable Plan - Discharge Summary Discharge Rx Participant: No New Discharge Prescriptions: New cloNIDine HCL [Catapres] 0.2 mg PO TID #90 tab cefUROXime axetiL [Cefuroxime] 500 mg PO DAILY #7 tab Continue Tacrolimus [Prograf] 5 mg PO DAILY amLODIPine [Norvasc] 10 mg PO DAILY Sodium Bicarbonate Tab 1,300 mg PO TID Atorvastatin Calcium [Lipitor] 10 mg PO HS predniSONE 5 mg PO DAILY Tacrolimus [Prograf] 4 mg PO HS Insulin Glargine,Hum.rec.anlog [Lantus Solostar Pen] 35 unit SQ HS Mycophenolate Sodium [Mycophenolic Acid] 360 mg PO BID Insulin Lispro [humaLOG Kwikpen] See Protocol SQ AC-TID carvediloL [Coreg] 25 mg PO BID Ketoconazole 2% Cream [Nizoral 2%] 1 applic TOPICAL DAILY PRN PRN Reason: skin on nails/feet traMADol HCL 50 - 100 mg PO Q6H PRN PRN Reason: Pain Sodium Zirconium Cyclosilicate [Lokelma] 10 gm PO DAILY Ergocalciferol [Vitamin D2 (1250 Mcg = 47442 Iu)] 1,250 mcg PO Q7D Furosemide [Lasix] 40 mg PO DAILY PRN PRN Reason: Edema Famotidine 40 mg PO DAILY Thiamine [Vitamin B-1] 250 mg PO BID Gentamicin 0.1% Cream 1 applic TOPICAL DAILY Diphenox-Atrop 2.5-0.025 mg [Lomotil] 1 tab PO TID PRN PRN Reason: Diarrhea Docusate [Colace] 100 mg PO DAILY PRN PRN Reason: Constipation Albuterol Inhaler [Ventolin Hfa Inhaler] 2 puff INHALATION RT-DAILY Aspirin EC [Ecotrin Low Dose] 81 mg PO DAILY Discontinued Losartan Potassium 100 mg PO DAILY Discharge Medication List Tacrolimus [Prograf] 5 mg PO DAILY 07/26/16 [History] Atorvastatin Calcium [Lipitor] 10 mg PO HS 08/11/16 [History] Sodium Bicarbonate Tab 1,300 mg PO TID 08/11/16 [History] amLODIPine [Norvasc] 10 mg PO DAILY 08/11/16 [History] predniSONE 5 mg PO DAILY 08/25/17 [History] Tacrolimus [Prograf] 4 mg PO HS 06/01/18 [History] Insulin Glargine,Hum.rec.anlog [Lantus Solostar Pen] 35 unit SQ HS 04/18/20 [History] Insulin Lispro [humaLOG Kwikpen] See Protocol SQ AC-TID 04/25/20 [History] Mycophenolate Sodium [Mycophenolic Acid] 360 mg PO BID 04/25/20 [History] Ergocalciferol [Vitamin D2 (1250 Mcg = 94098 Iu)] 1,250 mcg PO Q7D 10/27/21 [History] Famotidine 40 mg PO DAILY 10/27/21 [History] Furosemide [Lasix] 40 mg PO DAILY PRN 10/27/21 [History] carvediloL [Coreg] 25 mg PO BID 10/27/21 [History] Albuterol Inhaler [Ventolin Hfa Inhaler] 2 puff INHALATION RT-DAILY 11/24/22 [History] Aspirin EC [Ecotrin Low Dose] 81 mg PO DAILY 11/24/22 [History] Diphenox-Atrop 2.5-0.025 mg [Lomotil] 1 tab PO TID PRN 11/24/22 [History] Docusate [Colace] 100 mg PO DAILY PRN 11/24/22 [History] Gentamicin 0.1% Cream 1 applic TOPICAL DAILY 11/24/22 [History] Ketoconazole 2% Cream [Nizoral 2%] 1 applic TOPICAL DAILY PRN 11/24/22 [History] Sodium Zirconium Cyclosilicate [Lokelma] 10 gm PO DAILY 11/24/22 [History] Thiamine [Vitamin B-1] 250 mg PO BID 11/24/22 [History] traMADol HCL 50 - 100 mg PO Q6H PRN 11/24/22 [History] cefUROXime axetiL [Cefuroxime] 500 mg PO DAILY #7 tab 11/30/22 [Rx] cloNIDine HCL [Catapres] 0.2 mg PO TID #90 tab 11/30/22 [Rx] Follow up Appointment(s)/Referral(s): Oscar Whyte MD [STAFF PHYSICIAN] - 12/15/22 2:45 pm [facility] Visiting Nurse, [NON-STAFF] - 1 Week Patient Instructions/Handouts: Community Acquired Pneumonia (GEN) Activity/Diet/Wound Care/Special Instructions: Activity: as tolerated Diet: low sodium, carb consistent Special Instructions: Return if fever greater than 100.4, increasing confusion, worsening shortness of breath You have only been requiring 10 units of long acting insulin, you should decrease your Lantus to 12 units tonight at home, if your appetite returns and you start to eat more food you can slowly increase back to your typical 35 units. Please follow-up with your transplant turf farmer out of [facility] in 1-2 weeks and your primary care provider in 2-3 days. Discharge Disposition: HOME SELF-CARE
[2022-12-01 11:06] VITALS: BMI 31.6
== END 2022-11-30 14:21 | disposition home or self-care (01) | DRG 871 ==
LOC: EC 20:25 → 3SCARD 23:47
PROVIDERS: ADMIT Internal Medicine; ATTEND Internal Medicine
PROC: 05H933Z Insertion of Infusion Device into Right Brachial Vein, Percutaneous Approach (ICD-10-PCS; principal; 2022-11-26 07:30)
DX: A41.9 Sepsis, unspecified organism (principal); G93.41 Metabolic encephalopathy; N17.0 Acute kidney failure with tubular necrosis; J69.0 Pneumonitis due to inhalation of food and vomit; I21.4 Non-ST elevation (NSTEMI) myocardial infarction; J18.9 Pneumonia, unspecified organism; T86.12 Kidney transplant failure; E87.21 Acute metabolic acidosis; I42.9 Cardiomyopathy, unspecified; I50.22 Chronic systolic (congestive) heart failure; N18.4 Chronic kidney disease, stage 4 (severe); E11.41 Type 2 diabetes mellitus with diabetic mononeuropathy; E11.649 Type 2 diabetes mellitus with hypoglycemia without coma; I27.20 Pulmonary hypertension, unspecified; E11.22 Type 2 diabetes mellitus with diabetic chronic kidney disease; E11.65 Type 2 diabetes mellitus with hyperglycemia; R65.20 Severe sepsis without septic shock; Z79.4 Long term (current) use of insulin; Z20.822 Contact with and (suspected) exposure to COVID-19; D63.1 Anemia in chronic kidney disease; I13.10 Hypertensive heart and chronic kidney disease without heart failure, with stage 1 through stage 4 chronic kidney disease, or unspecified chronic kidney disease; G57.93 Unspecified mononeuropathy of bilateral lower limbs; M51.35 Other intervertebral disc degeneration, thoracolumbar region; E78.5 Hyperlipidemia, unspecified; E83.42 Hypomagnesemia; E87.5 Hyperkalemia; E87.6 Hypokalemia; I08.3 Combined rheumatic disorders of mitral, aortic and tricuspid valves; G89.29 Other chronic pain; M54.50 Low back pain, unspecified; K58.9 Irritable bowel syndrome, unspecified; I25.2 Old myocardial infarction; Z79.82 Long term (current) use of aspirin; Z79.52 Long term (current) use of systemic steroids; Z79.621 Long term (current) use of calcineurin inhibitor; Z79.899 Other long term (current) drug therapy; Z87.891 Personal history of nicotine dependence; Z86.19 Personal history of other infectious and parasitic diseases; Z86.16 Personal history of COVID-19; Z87.440 Personal history of urinary (tract) infections; Y83.0 Surgical operation with transplant of whole organ as the cause of abnormal reaction of the patient, or of later complication, without mention of misadventure at the time of the procedure; Z88.5 Allergy status to narcotic agent; Z88.8 Allergy status to other drugs, medicaments and biological substances; Z91.041 Radiographic dye allergy status
CPT/HCPCS: 36410; 36415; 70450; 71045; 71046; 71250; 74176; 76937; 80048; 80053; 80197; 81001; 82728; 83036; 83540; 83550; 83605; 83735; 84145; 84484; 85025; 85027; 85610; 85652; 85730; 86140; 87040; 87636; 93005; 93306; 94640; 94760; 96361; 96365; 96366; 96367; 96368; 99291

== ENCOUNTER 2022-12-14 23:32 | Inpatient (IN) | payer MEDICARE ==
[2022-12-15] MEDS ORDERED: SODIUM CHLORIDE 0.9% 1,000 ML IV ONE (00:02)
[2022-12-15 00:05] LABS: Glucose,Whole Blood 324 mg/dL (70-110)
[2022-12-15] MEDS ORDERED: MORPHINE SULFATE 2 MG/ML SYRINGE IVP STA ×2 (00:34→03:02)
[2022-12-15 01:08] LABS: ALT 11 U/L (4-34); African American GFR (CKD) 13 (>60 ml/min/1.73 sqM); Albumin 3.3 g/dL (3.5-5.0); Anion Gap 9 mmol/L; Blood Urea Nitrogen 49 mg/dL (7-17); Calcium 8.9 mg/dL (8.4-10.2); Carbon Dioxide 24 mmol/L (22-30); Chloride 97 mmol/L (98-107); Glucose 355 mg/dL (74-99); Non-African American GFR(CKD) 12 (>60 ml/min/1.73 sqM); Sodium 130 mmol/L (137-145); Total Bilirubin 0.8 mg/dL (0.2-1.3)
[2022-12-15 01:13] LABS: AST 21 U/L (14-36); Alkaline Phosphatase 71 U/L (38-126); Potassium 5.7 mmol/L (3.5-5.1)
[2022-12-15 01:14] LABS: Partial Thromboplastin Time 23.3 sec (22.0-30.0); Prothrombin Time 10.4 sec (9.0-12.0)
[2022-12-15 01:27] LABS: Basophils % (A) 0 %; Eosinophils # (A) 0.1 k/uL (0-0.7); Eosinophils % (A) 1 %; HCT 31.6 % (34.0-46.0); HGB 9.4 gm/dL (11.4-16.0); Hypochromasia Marked; Lymphocytes # (A) 1.2 k/uL (1.0-4.8); Lymphocytes % (A) 11 %; MCH 27.4 pg (25.0-35.0); MCHC 29.9 g/dL (31.0-37.0); MCV 91.6 fL (80.0-100.0); Mean Platelet Volume 10.7; Monocytes # (A) 1.1 k/uL (0-1.0); Monocytes % (A) 10 %; Neutrophils # (A) 8.2 k/uL (1.3-7.7); Neutrophils % (A) 77 %; Platelet Count 189 k/uL (150-450); RBC 3.45 m/uL (3.80-5.40); RDW 14.5 % (11.5-15.5); WBC 10.7 k/uL (3.8-10.6)
[2022-12-15 01:46] LABS: VBG PH 7.48 (7.31-7.41)
--- NOTE | 2022-12-15 02:02 | ED ---
General Adult HPI - General Chief complaint: Recheck/Abnormal Lab/Rx Stated complaint: Hyperglycemia Time Seen by Provider: 12/14/22 23:58 Source: patient, EMS, RN notes reviewed, old records reviewed Mode of arrival: EMS - History of Present Illness Initial comments: Patient is a 72-year-old female with past medical history of diabetes, asthma, kidney transplant on immunotherapy, diabetes, neuropathy who presents emergency Department complaining of lower extremity edema that has been worsening, hyperglycemia home, as well as a episode of confusion at home. Patient unknown if she is been having confusion at home recently. Family is uncertain as well. She was alert and oriented times one to 2 per EMS. Currently alert and oriented 3 it appears. States she has noticed that her legs been more swollen since discharge. She believes that she was told to stop her water pill medication. She is on Lasix. Per discharge, patient was told to stop her losartan not her Lasix. Presents for further evaluation at this time. Also endorsing chronic low back pain. Does not believe she fell. She states she has been compliant with medications. States that her legs are swollen and hurt to move. Patient does endorse some mild shortness of breath but denies orthopnea or PND. Denies chest pain, abdominal pain, nausea, vomiting. Presents for further evaluation at this time.Patient was recently here in late November 2022 with severe sepsis secondary to pneumonia, NSTEMI, JONES on CKD, an acute metabolic encephalopathy. - Related Data Home Medications Medication Instructions Recorded Confirmed Tacrolimus [Prograf] 5 mg PO DAILY 07/26/16 11/24/22 Atorvastatin Calcium [Lipitor] 10 mg PO HS 08/11/16 11/24/22 Sodium Bicarbonate Tab 1,300 mg PO TID 08/11/16 11/24/22 amLODIPine [Norvasc] 10 mg PO DAILY 08/11/16 11/24/22 predniSONE 5 mg PO DAILY 08/25/17 11/24/22 Tacrolimus [Prograf] 4 mg PO HS 06/01/18 11/24/22 Insulin Glargine,Hum.rec.anlog 35 unit SQ HS 04/18/20 11/24/22 [Lantus Solostar Pen] Insulin Lispro [humaLOG Kwikpen] See Protocol SQ AC-TID 04/25/20 11/24/22 Mycophenolate Sodium [Mycophenolic 360 mg PO BID 04/25/20 11/24/22 Acid] Ergocalciferol [Vitamin D2 (1250 1,250 mcg PO Q7D 10/27/21 11/24/22 Mcg = 75595 Iu)] Famotidine 40 mg PO DAILY 10/27/21 11/24/22 Furosemide [Lasix] 40 mg PO DAILY PRN 10/27/21 11/24/22 carvediloL [Coreg] 25 mg PO BID 10/27/21 11/24/22 Albuterol Inhaler [Ventolin Hfa 2 puff INHALATION RT-DAILY 11/24/22 11/24/22 Inhaler] Aspirin EC [Ecotrin Low Dose] 81 mg PO DAILY 11/24/22 11/24/22 Diphenox-Atrop 2.5-0.025 mg 1 tab PO TID PRN 11/24/22 11/24/22 [Lomotil] Docusate [Colace] 100 mg PO DAILY PRN 11/24/22 11/24/22 Gentamicin 0.1% Cream 1 applic TOPICAL DAILY 11/24/22 11/24/22 Ketoconazole 2% Cream [Nizoral 2%] 1 applic TOPICAL DAILY PRN 11/24/22 11/24/22 Sodium Zirconium Cyclosilicate 10 gm PO DAILY 11/24/22 11/24/22 [Lokelma] Thiamine [Vitamin B-1] 250 mg PO BID 11/24/22 11/24/22 traMADol HCL 50 - 100 mg PO Q6H PRN 11/24/22 11/24/22 Previous Rx's Medication Instructions Recorded cefUROXime axetiL [Cefuroxime] 500 mg PO DAILY #7 tab 11/30/22 cloNIDine HCL [Catapres] 0.2 mg PO TID #90 tab 11/30/22 Allergies Allergy/AdvReac Type Severity Reaction Status Date / Time hydralazine [From Apresoline] Allergy Rash/Hives Verified 12/14/22 23:53 Iodinated Contrast Media Allergy Unknown Verified 12/14/22 23:53 [Iodinated Contrast- Oral and IV Dye] meperidine [From Demerol] Allergy Anaphylaxis Verified 12/14/22 23:53 Penicillins Allergy Rash/Hives Verified 12/14/22 23:53 Review of Systems ROS Statement: Those systems with pertinent positive or pertinent negative responses have been documented in the HPI. Review of Systems: CONST: Denies fever EYES: Denies blurry vision ENT: Denies nasal congestion C/V: Denies Chest pain RESP: Denies shortness of breath GI: Denies abdominal pain : Denies dysuria SKIN: Denies rash. MSK: Endorses back pain, leg swelling. NEURO: Denies headache ROS Other: All systems not noted in ROS Statement are negative. Past Medical History Past Medical History: No Reported History, Asthma, Diabetes Mellitus, Dialysis, Eye Disorder, Hyperlipidemia, Hypertension, Renal Disease, Skin Disorder Additional Past Medical History / Comment(s): history of covid, IDDM type II, neuropathy bilateral legs/feet, ESRD with past peritoneal/hemodialysis then in 2016 had renal transplant, UTI with sepsis, IBS, benign colon polyps, chronic low back pain, migraines, R eye retinal bleed with injections, L eye detached retina with surgery, anemia. 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 History of Any Multi-Drug Resistant Organisms: ESBL Date of last positivie culture/infection: 2011 approx(PREVIOUSLY CHARTED) MDRO Source:: peritoneal dialysis cath Past Surgical History: Cholecystectomy, Hysterectomy, Orthopedic Surgery Additional Past Surgical History / Comment(s): Peritoneal dialysis cath since removed, hemodialysis cath since removed, 2016 renal transplant, EGD, colonoscopies/benign polypectomy, bilateral eye cataract removals, L eye detached retinal surgery, L knee arthroscopy Past Anesthesia/Blood Transfusion Reactions: No Reported Reaction Additional Past Anesthesia/Blood Transfusion Reaction / Comment(s): has had a hard time coming out of anesthesia Past Psychological History: No Psychological Hx Reported Smoking Status: Former smoker Past Alcohol Use History: None Reported Past Drug Use History: None Reported - Past Family History Mother History Unknown: Yes Additional Family Medical History / Comment(s): Mother of poisoning when pt was 11 yrs old. Father Family Medical History: Vascular Disorder Additional Family Medical History / Comment(s): brain aneurysm General Exam - General Exam Comments Initial Comments: General: Appears in no acute distress. HEAD: Normal with no signs of head trauma. EYES: PERRLA, EOMI, conjunctiva normal, no discharge. ENT: Hearing grossly intact, normal oropharynx. RESPIRATORY: Clear breath sounds bilaterally. No wheezes, rales, or rhonchi. C/V: Regular rate and rhythm. S1 and S2 auscultated, significant bilateral lower extremity pitting edema., peripheral pulses 2+ and intact throughout ABD: Abd is soft, nontender, nondistended EXT: Normal range of motion, no obvious deformity. Midline lumbar spine tenderness palpation which patient states is chronic. No obvious deformity. No midline thoracic or cervical spine tenderness to palpation. SKIN: No rashes or lesions observed on exposed skin. NEURO: Alert and oriented 4. No obvious deficits. GCS of 15. Course Vital Signs 12/14/22 23:47 Temperature 98.4 F Pulse Rate 86 Respiratory 19 Rate Blood Pressure 164/102 O2 Sat by Pulse 94 L Oximetry Medical Decision Making - Medical Decision Making Was pt. sent in by a medical professional or institution (, PA, FIELD OPERATIONS TECHNICIAN, urgent c are, hospital, or detention...) When possible be specific @ -No Did you speak to anyone other than the patient for history (EMS, parent, family, police, friend...)? What history was obtained from this source @ -Patient's sister who is at bedside and is concerned that she may not be taking her medications as prescribed. Did you review nursing and triage notes (agree or disagree)? Why? @ -I reviewed and agree with nursing and triage notes Were old charts reviewed (outside hosp., previous admission, EMS record, old EKG, old radiological studies, urgent care reports/EKG's, detention records)? Report findings @ -No old charts were reviewed Differential Diagnosis (chest pain, altered mental status, abdominal pain women, abdominal pain men, vaginal bleeding, weakness, fever, dyspnea, syncope, headache, dizziness, GI bleed, back pain, seizure, CVA, palpatations, mental health, musculoskeletal)? @ -Differential Weakness: Hypoglycemia, shock, sepsis, hyponatremia, anemia, infection, GA, ETOH, adverse medicine reaction, overdose, stroke, this is not meant to be an all-inclusive list. Differential Altered Mental Status: Hypoglycemia, DKA, hypercapnia, ETOH, overdose, CO poisoning, trauma, myxedema coma, HTN encephalopathy, infection, encephalitis, psychosis, intercranial hemorrhage, hepatic encephalopathy, meningitis, CVA, this is not meant to be an all-inclusive list EKG interpreted by me (3pts min.). @ -As above X-rays interpreted by me (1pt min.). @ -Chest x-ray shows mild pulmonary vascular congestion, although improved from previous chest x-ray. CT interpreted by me (1pt min.). @ -Brain CT reveals no obvious acute intracranial process. Lumbar spine CT reveals findings concerning for chronic degenerative changes. Radiology cannot definitively say was no discitis or osteomyelitis however I have lower suspicion at this time as she is having which she states is chronic exacerbation of pain, just slightly worse today. I do not believe this applies to the current clinical picture. U/S interpreted by me (1pt. min.). @ -None done What testing was considered but not performed or refused? (CT, X-rays, U/S, labs)? Why? @ -None What meds were considered but not given or refused? Why? @ -None Did you discuss the management of the patient with other professionals (professionals i.e. , PA, FIELD OPERATIONS TECHNICIAN, lab, RT, psych nurse, forensic social worker, landscape architecture professor, teacher, certification officer, case briefer)? Give summary @ -Discussed with Dr. Elaine of [facility] who accepted the patient. Was smoking cessation discussed for >3mins.? @ -No Was critical care preformed (if so, how long)? @ -No Were there social determinants of health that impacted care today? How? (Homelessness, low income, unemployed, alcoholism, drug addiction, transportation, low edu. Level, literacy, decrease access to med. care, fpc, rehab)? @ -No Was there de-escalation of care discussed even if they declined (Discuss DNR or withdrawal of care, Hospice)? DNR status @ -No What co-morbidities impacted this encounter? (DM, HTN, Smoking, COPD, CAD, Cancer, CVA, ARF, Chemo, Hep., AIDS, mental health diagnosis, sleep apnea, morbid obesity)? @ -Kidney transplant Was patient admitted / discharged? Hospital course, mention meds given and route, prescriptions, significant lab abnormalities, going to OR and other pertinent info. @ -Based on the patient's presentation and physical exam, she had a brief episode of confusion at home with altered mental status unknown a fallen. Complaining of lower back pain, lower extremity edema. Patient is currently alert and oriented 4. Due to her age as well as the episodic confusion we will obtain a CT brain as well as CT lumbar spine. We will obtain laboratory studies as well with her history of kidney transplant on immunotherapy as well as chronic pulmonary labs due to her significant lower extremity edema. She was in agreement with this plan. Vital signs are remarkable for mild hypertension. EKG showed no signs of acute ischemia. Patient's laboratory studies are remarkable for a chronic anemia with hemoglobin of 9.4. Patient has an AK eye on CK D with BUN of 49 and creatinine of 3.69. Patient is hyperglycemic to 355 but no evidence of DKA. Troponin is minimally elevated to 0.040 which is likely secondary to volume overload but we will monitor. BNP is elevated to 25,000, which fits with her clinical picture of lower extremity edema. Acetone negative. Patient's imaging is relatively unremarkable. Shows chronic degenerative changes. Radiology concerned for possible discitis in the lumbar spine however I do not believe that this fits the current clinical picture. I confirmed with patient, in she has stopped taking her Lasix. After review of the discharge paperwork appears that she was supposed to stop taking her losartan and not her Lasix. I believe she made a mistake at home. This is likely cause of her having increased final overload. Due to her being a fall risk, mildly elevated troponin, as well as her kidney history, I would like to admit her to the hospital for cardiology evaluation. She was in agreement this plan. We'll provide her with a single dose of IV Lasix here in the department. Patient's potassium was hemolyzed we will repeat this. She was in agreement with this plan. I did discuss with the patient's sister who is at bedside and she is uncertain of the patient's taking any of her medications at home. Patient states she is. Patient's sister states she is concerned she may not be. I spoke with the admitting physician, Dr. Elaine who accepted the patient. Undiagnosed new problem with uncertain prognosis? @ -No Drug Therapy requiring intensive monitoring for toxicity (Heparin, Nitro, Insulin, Cardizem)? @ -No Were any procedures done? @ -No Diagnosis/symptom? @ -Volume overload, lower extremity edema, medication noncompliance Acute, or Chronic, or Acute on Chronic? @ -Acute Uncomplicated (without systemic symptoms) or Complicated (systemic symptoms)? @ -Complicated Side effects of treatment? @ -none Exacerbation, Progression, or Severe Exacerbation] @ -no Poses a threat to life or bodily function? @ -Yes Diagnosis/symptom? @ -Hyperglycemia Acute, or Chronic, or Acute on Chronic? @ -Acute Uncomplicated (without systemic symptoms) or Complicated (systemic symptoms)? @ -Uncomplicated Side effects of treatment? @ -none Exacerbation, Progression, or Severe Exacerbation] @ -no Poses a threat to life or bodily function? @ -no Diagnosis/symptom? @ -JONES on CK D Acute, or Chronic, or Acute on Chronic? @ -Acute on chronic Uncomplicated (without systemic symptoms) or Complicated (systemic symptoms)? @ -Complicated Side effects of treatment? @ -none Exacerbation, Progression, or Severe Exacerbation] @ -no Poses a threat to life or bodily function? @ -no Diagnosis/symptom? @ -Elevated troponin Acute, or Chronic, or Acute on Chronic? @ -Acute Uncomplicated (without systemic symptoms) or Complicated (systemic symptoms)? @ -Uncomplicated Side effects of treatment? @ -none Exacerbation, Progression, or Severe Exacerbation] @ -no Poses a threat to life or bodily function? @ -no Diagnosis/symptom? @ -History of kidney transplant, chronic lumbar spine pain, degenerative disc disease, Acute, or Chronic, or Acute on Chronic? @ -Chronic Uncomplicated (without systemic symptoms) or Complicated (systemic symptoms)? @ -Complicated Side effects of treatment? @ -none Exacerbation, Progression, or Severe Exacerbation] @ -no Poses a threat to life or bodily function? @ -no - Lab Data Result diagrams: 12/15/22 00:27 12/15/22 03:07 Lab Results 12/14/22 12/15/22 12/15/22 Range/Units 23:55 00:09 00:20 WBC (3.8-10.6) k/uL RBC (3.80-5.40) m/uL Hgb (11.4-16.0) gm/dL Hct (34.0-46.0) % MCV (80.0-100.0) fL MCH (25.0-35.0) pg MCHC (31.0-37.0) g/dL RDW (11.5-15.5) % Plt Count (150-450) k/uL MPV Neutrophils % % Lymphocytes % % Monocytes % % Eosinophils % % Basophils % % Neutrophils # (1.3-7.7) k/uL Lymphocytes # (1.0-4.8) k/uL Monocytes # (0-1.0) k/uL Eosinophils # (0-0.7) k/uL Basophils # (0-0.2) k/uL Hypochromasia PT (9.0-12.0) sec INR (<1.2) APTT (22.0-30.0) sec VBG pH (7.31-7.41) VBG pCO2 (37-51) mmHg VBG HCO3 (24-28) mmol/L Sodium (137-145) mmol/L Potassium (3.5-5.1) mmol/L Chloride (98-107) mmol/L Carbon Dioxide (22-30) mmol/L Anion Gap mmol/L BUN (7-17) mg/dL Creatinine (0.52-1.04) mg/dL Est GFR (CKD-EPI)AfAm (>60 ml/min/1.73 sqM) Est GFR (CKD-EPI)NonAf (>60 ml/min/1.73 sqM) Glucose (74-99) mg/dL POC Glucose (mg/dL) 324 H (70-110) mg/dL POC Glu [employer] Grinder Tender ID ShandaenaMerna garcia Calcium (8.4-10.2) mg/dL Total Bilirubin (0.2-1.3) mg/dL AST (14-36) U/L ALT (4-34) U/L Alkaline Phosphatase (38-126) U/L Ammonia (<30) umol/L Troponin I (0.000-0.034) ng/mL NT-Pro-B Natriuret Pep 72245 pg/mL Total Protein (6.3-8.2) g/dL Albumin (3.5-5.0) g/dL Acetone, Qual (Negative) Influenza Type A (PCR) Not Detected (Not Detectd) Influenza Type B (PCR) Not Detected (Not Detectd) RSV (PCR) Not Detected (Not Detectd) SARS-CoV-2 (PCR) Not Detected (Not Detectd) 12/15/22 12/15/22 12/15/22 Range/Units 00:27 00:27 00:27 WBC 10.7 H (3.8-10.6) k/uL RBC 3.45 L (3.80-5.40) m/uL Hgb 9.4 L (11.4-16.0) gm/dL Hct 31.6 L (34.0-46.0) % MCV 91.6 (80.0-100.0) fL MCH 27.4 (25.0-35.0) pg MCHC 29.9 L (31.0-37.0) g/dL RDW 14.5 (11.5-15.5) % Plt Count 189 (150-450) k/uL MPV 10.7 Neutrophils % 77 % Lymphocytes % 11 % Monocytes % 10 % Eosinophils % 1 % Basophils % 0 % Neutrophils # 8.2 H (1.3-7.7) k/uL Lymphocytes # 1.2 (1.0-4.8) k/uL Monocytes # 1.1 H (0-1.0) k/uL Eosinophils # 0.1 (0-0.7) k/uL Basophils # 0.0 (0-0.2) k/uL Hypochromasia Marked PT 10.4 (9.0-12.0) sec INR 1.0 (<1.2) APTT 23.3 (22.0-30.0) sec VBG pH (7.31-7.41) VBG pCO2 (37-51) mmHg VBG HCO3 (24-28) mmol/L Sodium 130 L (137-145) mmol/L Potassium 5.7 H (3.5-5.1) mmol/L Chloride 97 L (98-107) mmol/L Carbon Dioxide 24 (22-30) mmol/L Anion Gap 9 mmol/L BUN 49 H (7-17) mg/dL Creatinine 3.69 H (0.52-1.04) mg/dL Est GFR (CKD-EPI)AfAm 13 (>60 ml/min/1.73 sqM) Est GFR (CKD-EPI)NonAf 12 (>60 ml/min/1.73 sqM) Glucose 355 H (74-99) mg/dL POC Glucose (mg/dL) (70-110) mg/dL POC Glu [employer] Grinder Tender ID Calcium 8.9 (8.4-10.2) mg/dL Total Bilirubin 0.8 (0.2-1.3) mg/dL AST 21 (14-36) U/L ALT 11 (4-34) U/L Alkaline Phosphatase 71 (38-126) U/L Ammonia (<30) umol/L Troponin I (0.000-0.034) ng/mL NT-Pro-B Natriuret Pep pg/mL Total Protein 6.0 L (6.3-8.2) g/dL Albumin 3.3 L (3.5-5.0) g/dL Acetone, Qual Negative (Negative) Influenza Type A (PCR) (Not Detectd) Influenza Type B (PCR) (Not Detectd) RSV (PCR) (Not Detectd) SARS-CoV-2 (PCR) (Not Detectd) 12/15/22 12/15/22 12/15/22 Range/Units 00:27 00:27 01:33 WBC (3.8-10.6) k/uL RBC (3.80-5.40) m/uL Hgb (11.4-16.0) gm/dL Hct (34.0-46.0) % MCV (80.0-100.0) fL MCH (25.0-35.0) pg MCHC (31.0-37.0) g/dL RDW (11.5-15.5) % Plt Count (150-450) k/uL MPV Neutrophils % % Lymphocytes % % Monocytes % % Eosinophils % % Basophils % % Neutrophils # (1.3-7.7) k/uL Lymphocytes # (1.0-4.8) k/uL Monocytes # (0-1.0) k/uL Eosinophils # (0-0.7) k/uL Basophils # (0-0.2) k/uL Hypochromasia PT (9.0-12.0) sec INR (<1.2) APTT (22.0-30.0) sec VBG pH 7.48 H (7.31-7.41) VBG pCO2 31 L (37-51) mmHg VBG HCO3 23 L (24-28) mmol/L Sodium (137-145) mmol/L Potassium (3.5-5.1) mmol/L Chloride (98-107) mmol/L Carbon Dioxide (22-30) mmol/L Anion Gap mmol/L BUN (7-17) mg/dL Creatinine (0.52-1.04) mg/dL Est GFR (CKD-EPI)AfAm (>60 ml/min/1.73 sqM) Est GFR (CKD-EPI)NonAf (>60 ml/min/1.73 sqM) Glucose (74-99) mg/dL POC Glucose (mg/dL) (70-110) mg/dL POC Glu [employer] Grinder Tender ID Calcium (8.4-10.2) mg/dL Total Bilirubin (0.2-1.3) mg/dL AST (14-36) U/L ALT (4-34) U/L Alkaline Phosphatase (38-126) U/L Ammonia <9 (<30) umol/L Troponin I 0.040 H* (0.000-0.034) ng/mL NT-Pro-B Natriuret Pep pg/mL Total Protein (6.3-8.2) g/dL Albumin (3.5-5.0) g/dL Acetone, Qual (Negative) Influenza Type A (PCR) (Not Detectd) Influenza Type B (PCR) (Not Detectd) RSV (PCR) (Not Detectd) SARS-CoV-2 (PCR) (Not Detectd) 12/15/22 Range/Units 03:07 WBC (3.8-10.6) k/uL RBC (3.80-5.40) m/uL Hgb (11.4-16.0) gm/dL Hct (34.0-46.0) % MCV (80.0-100.0) fL MCH (25.0-35.0) pg MCHC (31.0-37.0) g/dL RDW (11.5-15.5) % Plt Count (150-450) k/uL MPV Neutrophils % % Lymphocytes % % Monocytes % % Eosinophils % % Basophils % % Neutrophils # (1.3-7.7) k/uL Lymphocytes # (1.0-4.8) k/uL Monocytes # (0-1.0) k/uL Eosinophils # (0-0.7) k/uL Basophils # (0-0.2) k/uL Hypochromasia PT (9.0-12.0) sec INR (<1.2) APTT (22.0-30.0) sec VBG pH (7.31-7.41) VBG pCO2 (37-51) mmHg VBG HCO3 (24-28) mmol/L Sodium (137-145) mmol/L Potassium 5.4 H (3.5-5.1) mmol/L Chloride (98-107) mmol/L Carbon Dioxide (22-30) mmol/L Anion Gap mmol/L BUN (7-17) mg/dL Creatinine (0.52-1.04) mg/dL Est GFR (CKD-EPI)AfAm (>60 ml/min/1.73 sqM) Est GFR (CKD-EPI)NonAf (>60 ml/min/1.73 sqM) Glucose (74-99) mg/dL POC Glucose (mg/dL) (70-110) mg/dL POC Glu [employer] Gr[employer] Tender ID Calcium (8.4-10.2) mg/dL Total Bilirubin (0.2-1.3) mg/dL AST (14-36) U/L ALT (4-34) U/L Alkaline Phosphatase (38-126) U/L Ammonia (<30) umol/L Troponin I (0.000-0.034) ng/mL NT-Pro-B Natriuret Pep pg/mL Total Protein (6.3-8.2) g/dL Albumin (3.5-5.0) g/dL Acetone, Qual (Negative) Influenza Type A (PCR) (Not Detectd) Influenza Type B (PCR) (Not Detectd) RSV (PCR) (Not Detectd) SARS-CoV-2 (PCR) (Not Detectd) - EKG Data -: EKG Interpreted by Me EKG Comments: 12-lead Electrocardiogram Interpretation Note EKG was reviewed and interpreted by myself. 12-lead ECG performed at 0149 is interpreted by me as revealing normal sinus rhythm at a rate of 83 beats per minute. Left axis deviation. MT interval is 203 ms, QRS duration is 97 ms, QTc is 409 ms.. Nonspecific T-wave inversion in lead III There were no acute ST or T wave abnormalities to suggest myocardial ischemia or injury. R wave pro gression across the precordium was satisfactory. By my interpretation this EKG is non-diagnostic for acute ischemia. Disposition Clinical Impression: Hyperglycemia, Acute kidney injury superimposed on CKD, Volume overload, Lower extremity edema, Lumbar spine pain, Noncompliance with medication regimen, History of kidney transplant Disposition: ADMITTED IP TO THIS HOSP Condition: Stable Referrals: Raza Purcell MD [Primary Care Provider] - 1-2 days Time of Disposition: 03:20
--- NOTE | 2022-12-15 02:12 | CT ---
EXAM: CT Head Without Intravenous Contrast CLINICAL HISTORY: ITS.REASON CT Reason: Altered mental status TECHNIQUE: Axial computed tomography images of the head/brain without intravenous contrast. CTDI is 49.2 mGy and DLP is 1099.4 mGy-cm. This CT exam was performed using one or more of the following dose reduction techniques: automated exposure control, adjustment of the mA and/or kV according to patient size, and/or use of iterative reconstruction technique. COMPARISON: No relevant prior studies available. FINDINGS: No acute intracranial hemorrhage. No midline shift or mass effect. The territorial arnold-white matter differentiation is maintained throughout. Age-related cerebral volume loss. Periventricular and subcortical white matter hypoattenuation, consistent with chronic microangiopathy. The visualized orbits appear grossly unremarkable. The calvarium is intact. The visualized paranasal sinuses and mastoid air cells are grossly clear. IMPRESSION: No acute intracranial hemorrhage, midline shift, or mass effect.
[2022-12-15] MEDS ORDERED: FUROSEMIDE 10 MG/ML 4 ML VIAL IV STA (02:20)
--- NOTE | 2022-12-15 03:11 | CT ---
EXAM: CT Lumbar Spine Without Intravenous Contrast CLINICAL HISTORY: ITS.REASON CT Reason: pain TECHNIQUE: Axial computed tomography images of the lumbar spine without intravenous contrast. CTDI is 51.8 mGy and DLP is 2304.3 mGy-cm. This CT exam was performed using one or more of the following dose reduction techniques: automated exposure control, adjustment of the mA and/or kV according to patient size, and/or use of iterative reconstruction technique. COMPARISON: None FINDINGS: Bones: Normal alignment. No acute fracture. Prominent endplate irregularities at T10-11, T12-L1, L3-4, and L5-S1. This may be secondary to prominent degenerative changes. Component of discitis/osteomyelitis, especially at T10-11 and T12-L1 cannot be excluded in the appropriate clinical setting. Mild curvature of the spine. Degenerative changes of the SI joints. Disc spaces: Prominent degenerative changes of the spine. Grade 1 anterolisthesis of L4 on L5. Mild to moderate spinal canal stenosis at T9-10. Moderate to severe spinal canal stenosis at T10-11. Mild spinal canal stenosis at T12-L1. Severe neural foraminal stenoses at L2-3, L3-4, L4-5, and L5-S1. Severe neural foraminal stenoses at T9-10, T10-11, and T12-L1. Soft tissues: Normal. Other: Atherosclerotic changes of the vasculature. Cholecystectomy clips partially visualized. Atrophy of the kidneys. Normal appendix. Diverticulosis. IMPRESSION: 1. No acute traumatic abnormality. 2. Prominent endplate irregularities at T10-11, T12-L1, L3-4, and L5-S1. This may be secondary to prominent degenerative changes. Component of discitis/osteomyelitis, especially at T10-11 and T12-L1 cannot be excluded in the appropriate clinical setting. 3. Mild to moderate spinal canal stenosis at T9-10. Moderate to severe spinal canal stenosis at T10-11. Mild spinal canal stenosis at T12-L1. Severe neural foraminal stenoses at L2-3, L3-4, L4-5, and L5-S1. Severe neural foraminal stenoses at T9-10, T10-11, and T12-L1. Further evaluation could be performed with MRI if clinically indicated.
[2022-12-15] MEDS ORDERED: MORPHINE SULFATE 4 MG/ML SYRINGE IV PRN (03:42)
[2022-12-15] MEDS ORDERED: NALOXONE 0.4 MG/ML 1 ML VIAL IV PRN (03:42)
[2022-12-15] MEDS ORDERED: ONDANSETRON 4 MG/2 ML VIAL IVP PRN (03:42)
--- NOTE | 2022-12-15 04:01 | XR ---
EXAM: XR Chest, 1 View CLINICAL HISTORY: ITS.REASON XR Reason: altered mental status TECHNIQUE: Frontal view of the chest. COMPARISON: Chest radiograph on 11/26/2022 FINDINGS: Hardware: None. Lungs/pleura: Opacities in the right lower lung. Mild opacities in the left mid and lower lung. Heart/mediastinum: Enlargement of the cardiac silhouette. Soft tissues: Unremarkable. Bones: No acute fracture. Upper abdomen: Normal. IMPRESSION: 1. Opacities in the right lower lung, concerning for pneumonia. 2. Opacities in the left mid and lower lung, concerning for atelectasis.
[2022-12-15 04:47] LABS: Amorphous Sediment,Urine Rare /hpf; Appearance,Urine Clear (Clear); Bilirubin,Urine Negative (Negative); Blood,Urine Negative (Negative); Color,Urine Light Yellow; Glucose,Urine (UA) 3+ (Negative); Hyaline Casts,Urine 1 /lpf (0-2); Ketones,Urine Negative (Negative); Leukocyte Esterase,Urine Moderate (Negative); Nitrite,Urine Negative (Negative); PH, Urine 8.5 (5.0-8.0); Protein,Urine 2+ (Negative); RBC,Urine <1 /hpf (0-5); Specific Gravity,Urine 1.009 (1.001-1.035); Squamous Epithelial Cell,Urine 1 /hpf (0-4); Urobilinogen,Urine <2.0 mg/dL (<2.0); WBC,Urine 8 /hpf (0-5)
[2022-12-15 05:14] LABS: Amphetamine Screen,Urine Not Detected (NotDetected); Barbiturate Screen,Urine Not Detected (NotDetected); Benzodiazepines Screen,Urine Not Detected (NotDetected); Cocaine Screen,Urine Not Detected (NotDetected); Methadone Screen, Urine Not Detected (NotDetected); Opiate Screen,Urine Detected (NotDetected); Oxycodone Screen, Urine Not Detected (NotDetected); Phencyclidine Screen,Urine Not Detected (NotDetected); Tricyclic Antidepressant,Urine Not Detected (NotDetected); Urn Cannabinoid Scrn Not Detected (NotDetected)
[2022-12-15] MEDS ORDERED: DOCUSATE 100 MG CAP PO PRN (05:23)
[2022-12-15] MEDS ORDERED: DEXTROSE 50% SYRINGE 50 ML IVP PRN (05:31)
--- NOTE | 2022-12-15 06:03 | P.HPIM ---
History of Present Illness H&P Date: 12/15/22 Chief Complaint: confusion 72 year old female with kidney transplant, DM patient was recently hospitalized and treated for Sepsis , pneumonia , NSTEMI, . she was discharged end of November on oral antibiotics for right lower lobe pneumonia today she is coming in for evaluation of confusion . patient does not pariticipate in history and interview, her sister at bedside pr ovides the history she reports that patient has been complaining of back pain over the past few day s which has been progressive, no report of radiculopathy or trauma , denies any falls. no prior surgery or injury. then she noticed that the patient is getting more and more confused , for which she decided to brig her in . upon arrival of EMS she was AXO X2 , her blood sugar was elevated. she also has been having increasing swelling of bilateral legs, and apparently patient was told dont use Losartan upon discharge, however there was a misunderstanding and she stopped taking lasix instead, with progressively increasing leg edema ,. again patient does not answer any questions, Review of Systems ROS unobtainable: due to mental status Past Medical History Past Medical History: No Reported History, Asthma, Diabetes Mellitus, Dialysis, Eye Disorder, Hyperlipidemia, Hypertension, Renal Disease, Skin Disorder Additional Past Medical History / Comment(s): history of covid, IDDM type II, neuropathy bilateral legs/feet, ESRD with past peritoneal/hemodialysis then in 2016 had renal transplant, UTI with sepsis, IBS, benign colon polyps, chronic low back pain, migraines, R eye retinal bleed with injections, L eye detached retina with surgery, anemia. 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 History of Any Multi-Drug Resistant Organisms: ESBL Date of last positivie culture/infection: 2011 approx(PREVIOUSLY CHARTED) MDRO Source:: peritoneal dialysis cath Past Surgical History: Cholecystectomy, Hysterectomy, Orthopedic Surgery Additional Past Surgical History / Comment(s): Peritoneal dialysis cath since removed, hemodialysis cath since removed, 2016 renal transplant, EGD, colonoscopies/benign polypectomy, bilateral eye cataract removals, L eye detached retinal surgery, L knee arthroscopy Past Anesthesia/Blood Transfusion Reactions: No Reported Reaction Additional Past Anesthesia/Blood Transfusion Reaction / Comment(s): has had a hard time coming out of anesthesia Past Psychological History: No Psychological Hx Reported Smoking Status: Former smoker Past Alcohol Use History: None Reported Past Drug Use History: None Reported - Past Family History Mother History Unknown: Yes Additional Family Medical History / Comment(s): Mother of poisoning when pt was 11 yrs old. Father Family Medical History: Vascular Disorder Additional Family Medical History / Comment(s): brain aneurysm Medications and Allergies Home Medications Medication Instructions Recorded Confirmed Type Tacrolimus [Prograf] 5 mg PO DAILY 07/26/16 11/24/22 History Atorvastatin Calcium [Lipitor] 10 mg PO HS 08/11/16 11/24/22 History Sodium Bicarbonate Tab 1,300 mg PO TID 08/11/16 11/24/22 History amLODIPine [Norvasc] 10 mg PO DAILY 08/11/16 11/24/22 History predniSONE 5 mg PO DAILY 08/25/17 11/24/22 History Tacrolimus [Prograf] 4 mg PO HS 06/01/18 11/24/22 History Insulin Glargine,Hum.rec.anlog 35 unit SQ HS 04/18/20 11/24/22 History [Lantus Solostar Pen] Insulin Lispro [humaLOG Kwikpen] See Protocol SQ AC-TID 04/25/20 11/24/22 History Mycophenolate Sodium [Mycophenolic 360 mg PO BID 04/25/20 11/24/22 History Acid] Ergocalciferol [Vitamin D2 (1250 1,250 mcg PO Q7D 10/27/21 11/24/22 History Mcg = 63637 Iu)] Famotidine 40 mg PO DAILY 10/27/21 11/24/22 History Furosemide [Lasix] 40 mg PO DAILY PRN 10/27/21 11/24/22 History carvediloL [Coreg] 25 mg PO BID 10/27/21 11/24/22 History Albuterol Inhaler [Ventolin Hfa 2 puff INHALATION RT-DAILY 11/24/22 11/24/22 History Inhaler] Aspirin EC [Ecotrin Low Dose] 81 mg PO DAILY 11/24/22 11/24/22 History Diphenox-Atrop 2.5-0.025 mg 1 tab PO TID PRN 11/24/22 11/24/22 History [Lomotil] Docusate [Colace] 100 mg PO DAILY PRN 11/24/22 11/24/22 History Gentamicin 0.1% Cream 1 applic TOPICAL DAILY 11/24/22 11/24/22 History Ketoconazole 2% Cream [Nizoral 2%] 1 applic TOPICAL DAILY PRN 11/24/22 11/24/22 History Sodium Zirconium Cyclosilicate 10 gm PO DAILY 11/24/22 11/24/22 History [Lokelma] Thiamine [Vitamin B-1] 250 mg PO BID 11/24/22 11/24/22 History traMADol HCL 50 - 100 mg PO Q6H PRN 11/24/22 11/24/22 History cefUROXime axetiL [Cefuroxime] 500 mg PO DAILY #7 tab 11/30/22 Rx cloNIDine HCL [Catapres] 0.2 mg PO TID #90 tab 11/30/22 Rx Allergies Allergy/AdvReac Type Severity Reaction Status Date / Time hydralazine [From Apresoline] Allergy Rash/Hives Verified 12/14/22 23:53 Iodinated Contrast Media Allergy Unknown Verified 12/14/22 23:53 [Iodinated Contrast- Oral and IV Dye] meperidine [From Demerol] Allergy Anaphylaxis Verified 12/14/22 23:53 Penicillins Allergy Rash/Hives Verified 12/14/22 23:53 Physical Exam Vitals: Vital Signs Temp Pulse Resp BP Pulse Ox 12/15/22 04:00 81 20 167/73 100 12/15/22 03:00 86 18 177/86 100 12/15/22 01:53 81 18 154/77 95 12/14/22 23:47 98.4 F 86 19 164/102 94 L Intake and Output 12/14/22 12/14/22 12/15/22 14:59 22:59 06:59 Other: Weight 83.461 kg Constitutional: No acute distress,sleeping, easily arousable but covers her face with sheets and wants to sleep Eyes: Anicteric sclerae, moist conjunctiva, Pupils equal round reactive to light ENMT: NC/AT Neck: Supple, no masses, or JVD No carotid bruits No thyromegaly Lungs: good breath sounds, with inspiratory rales left lung base Clear to percussion Normal respiratory effort, no accessory muscle use Cardiovascular: Heart regular in rate and rhythm, No murmurs, gallops, or rubs +2 bilateral peripheral edema Abdominal: Soft Nontender, no guarding, rebound or rigidity Abdomen moving with respiration Normoactive bowel sounds Skin: Normal temperature, tone, texture, turgor Extremities: No digital cyanosis No clubbing Pedal pulses intact and symmetrical Radial pulses intact and symmetrical No calf tenderness Psychiatric: sleeping , easily arousable but wants to sleep Neuro moving all 4 extremities , but does not cooperate with neuro exam Results CBC & Chem 7: 12/15/22 00:27 12/15/22 03:07 Labs: Abnormal Lab Results - Last 24 Hours (Table) 12/14/22 12/15/22 12/15/22 Range/Units 23:55 00:27 00:27 WBC 10.7 H (3.8-10.6) k/uL RBC 3.45 L (3.80-5.40) m/uL Hgb 9.4 L (11.4-16.0) gm/dL Hct 31.6 L (34.0-46.0) % MCHC 29.9 L (31.0-37.0) g/dL Neutrophils # 8.2 H (1.3-7.7) k/uL Monocytes # 1.1 H (0-1.0) k/uL VBG pH (7.31-7.41) VBG pCO2 (37-51) mmHg VBG HCO3 (24-28) mmol/L Sodium 130 L (137-145) mmol/L Potassium 5.7 H (3.5-5.1) mmol/L Chloride 97 L (98-107) mmol/L BUN 49 H (7-17) mg/dL Creatinine 3.69 H (0.52-1.04) mg/dL Glucose 355 H (74-99) mg/dL POC Glucose (mg/dL) 324 H (70-110) mg/dL Troponin I (0.000-0.034) ng/mL Total Protein 6.0 L (6.3-8.2) g/dL Albumin 3.3 L (3.5-5.0) g/dL Urine pH (5.0-8.0) Urine Protein (Negative) Urine Glucose (UA) (Negative) Ur Leukocyte Esterase (Negative) Urine WBC (0-5) /hpf Amorphous Sediment (None) /hpf Urine Opiates Screen (NotDetected) 12/15/22 12/15/22 12/15/22 Range/Units 00:27 01:33 03:07 WBC (3.8-10.6) k/uL RBC (3.80-5.40) m/uL Hgb (11.4-16.0) gm/dL Hct (34.0-46.0) % MCHC (31.0-37.0) g/dL Neutrophils # (1.3-7.7) k/uL Monocytes # (0-1.0) k/uL VBG pH 7.48 H (7.31-7.41) VBG pCO2 31 L (37-51) mmHg VBG HCO3 23 L (24-28) mmol/L Sodium (137-145) mmol/L Potassium 5.4 H (3.5-5.1) mmol/L Chloride (98-107) mmol/L BUN (7-17) mg/dL Creatinine (0.52-1.04) mg/dL Glucose (74-99) mg/dL POC Glucose (mg/dL) (70-110) mg/dL Troponin I 0.040 H* (0.000-0.034) ng/mL Total Protein (6.3-8.2) g/dL Albumin (3.5-5.0) g/dL Urine pH (5.0-8.0) Urine Protein (Negative) Urine Glucose (UA) (Negative) Ur Leukocyte Esterase (Negative) Urine WBC (0-5) /hpf Amorphous Sediment (None) /hpf Urine Opiates Screen (NotDetected) 12/15/22 12/15/22 Range/Units 03:57 03:57 WBC (3.8-10.6) k/uL RBC (3.80-5.40) m/uL Hgb (11.4-16.0) gm/dL Hct (34.0-46.0) % MCHC (31.0-37.0) g/dL Neutrophils # (1.3-7.7) k/uL Monocytes # (0-1.0) k/uL VBG pH (7.31-7.41) VBG pCO2 (37-51) mmHg VBG HCO3 (24-28) mmol/L Sodium (137-145) mmol/L Potassium (3.5-5.1) mmol/L Chloride (98-107) mmol/L BUN (7-17) mg/dL Creatinine (0.52-1.04) mg/dL Glucose (74-99) mg/dL POC Glucose (mg/dL) (70-110) mg/dL Troponin I (0.000-0.034) ng/mL Total Protein (6.3-8.2) g/dL Albumin (3.5-5.0) g/dL Urine pH 8.5 H (5.0-8.0) Urine Protein 2+ H (Negative) Urine Glucose (UA) 3+ H (Negative) Ur Leukocyte Esterase Moderate H (Negative) Urine WBC 8 H (0-5) /hpf Amorphous Sediment Rare H (None) /hpf Urine Opiates Screen Detected H (NotDetected) Assessment and Plan Assessment: 72 year old female with kidney transplant , DM, coming in for confusion and low back pain , I discussed the case with ED doc and I accepted the admission for JONES, hyperglycemia and low back pain, with anticipated length of stay > 2 midnights chart review shows she recently discharged from hospital on antibiotics, where she was treated for sepsis pneuomnia , NSTEMI, JONES/CKD. she stopped her lasix after discharge by mistake . acute metabolic encephalopathy JONES / CKD hyperglycemia fluid overload chronic anemia renal transplant hypertension low back pain plan IV diuresis lasix 40 mg ivp bid daily weight fall precautions monitor vital signs Pro BNP >02400 trops chronically elevated , stable BUN 49, cr 3.69 elevated Na 130, K 5.7 --> 5.4 acute respiratory viral panel , negative COVID < RSV influenza fluid restriction 1800 cc daily avoid nephrotoxic meds nephro consult continue tacrolimus, mycophenolate , prednisone hold losartan elevated blood sugar Serum Acetone negative insulin sliding scale resume levemir opiates for low back pain control ortho eval CT brain no acute pathology CXR persistent right lower lobe infilterate , she was treated for pneumonia 2 weeks ago , CXR findings sometimes takes up to 6 weeks to clear, no fever, no reported cough Lumbar CT showing endplate irregularities T10-11, L12 -L1, L3-L4 , L5-S1, moderate to severe spinal canal stenosis resume home meds await UA Hemoglobin stable 9.4, WBC 10.7, no fever full code DVT PPX heparin sc tid 5000 units
[2022-12-15 06:49] LABS: Glucose,Whole Blood 353 mg/dL (70-110)
[2022-12-15 08:06] LABS: Glucose,Whole Blood 317 mg/dL (70-110)
[2022-12-15] MEDS: cloNIDine HCL 0.2 MG TAB PO SCH ×3 (08:39→20:59)
[2022-12-15] MEDS: SODIUM BICARBONATE TAB 650 MG TAB PO SCH ×3 (08:39→20:59)
[2022-12-15] MEDS: ASPIRIN 81 MG PO SCH (08:40)
[2022-12-15] MEDS: carvediloL 12.5 MG TAB PO SCH ×2 (08:40→20:58)
[2022-12-15] MEDS: FAMOTIDINE 20 MG TAB PO SCH (08:41)
[2022-12-15] MEDS: amLODIPine 10 MG TAB PO SCH (08:41)
[2022-12-15] MEDS: INSULIN ASPART (NovoLOG) 100 UNIT/ML VIAL SQ SCH ×4 (08:46→20:58)
[2022-12-15 08:49] LABS: African American GFR (CKD) 13 (>60 ml/min/1.73 sqM); Anion Gap 7 mmol/L; Blood Urea Nitrogen 45 mg/dL (7-17); Calcium 8.6 mg/dL (8.4-10.2); Carbon Dioxide 24 mmol/L (22-30); Chloride 100 mmol/L (98-107); Glucose 342 mg/dL (74-99); Magnesium 1.2 mg/dL (1.6-2.3); Non-African American GFR(CKD) 12 (>60 ml/min/1.73 sqM); Potassium 5.5 mmol/L (3.5-5.1); Sodium 131 mmol/L (137-145)
[2022-12-15] MEDS: HEPARIN SODIUM,PORCINE/PF 5,000 UNIT/0.5 ML SYRINGE SQ SCH ×3 (08:50→23:57)
[2022-12-15] MEDS: SODIUM ZIRCONIUM CYCLOSILICATE 10 GM PACKET PO SCH (08:52)
[2022-12-15] MEDS: FUROSEMIDE 10 MG/ML 4 ML VIAL IV SCH ×2 (08:52→20:58)
[2022-12-15] MEDS: predniSONE 5 MG TAB PO SCH (09:25)
[2022-12-15] MEDS: TACROLIMUS 1 MG CAP PO SCH ×3 (09:25→21:05)
[2022-12-15] MEDS: MYCOPHENOLATE SODIUM DR 180 MG TABLET.DR PO SCH ×2 (09:25→20:58)
--- NOTE | 2022-12-15 11:09 | P.CRDCN ---
History of Present Illness History of present illness: HISTORY OF PRESENT ILLNESS: This is a 72-year-old female with a past medical history significant for right kidney disease with previous kidney transplant, diabetes, hypertension, hyperlipidemia, aortic insufficiency, and congestive heart failure. Patient follows in the office with Dr. Dr. Whyte. We have been asked to see the patient in consultation for congestive heart failure. Patient examined at the bedside in the emergency room. Patient presented to the hospital with a chief complaint of back pain. She states that pain is in the middle of her back. She denied having any chest pain or pressure. She denies having any shortness of breath. The patient does report worsening swelling in her legs. According to the patient's nurse, the patient accidentally stopped taking her Lasix instead of discontinuing her losartan. Orthopedics has been consulted to evaluate her back pain. The patient was also found to be in acute CHF and was started on IV Lasix. * EKG reveals sinus mechanism with T-wave inversions inferiorly * Chest xray opacities in the right lower lung, concerning for pneumonia. Opacities in the left mid and lower lung, concerning for atelectasis. * Laboratory data: WBC 10.7. Hemoglobin 9.4. Platelet count 189. Sodium 131. Potassium 5.5. BUN 45. Creatinine 3.72. Magnesium 1.2. Troponin 0.040. ProBNP 25,600. * Current home cardiac medications include Catapres 0.2 mg 3 times a day, carvedilol 25 mg twice a day, amlodipine 10 mg daily, Lasix 40 mg daily as needed, Lipitor 10 mg at night, aspirin 81 mg daily * Most recent echocardiogram obtained in August 2019 revealed normal ejection fraction, mild MR, [id number] AR * Patient underwent Lexiscan stress test in February 2017 which was negative for ischemia REVIEW OF SYSTEMS: At the time of my exam: CONSTITUTIONAL: Denies fever or chills. HEENT: Denies blurred vision, vision changes, or eye pain. Denies hemoptysis CARDIOVASCULAR: Denies chest pain. Denies orthopnea. Denies PND. Denies palpitations RESPIRATORY: Denies shortness of breath. GASTROINTESTINAL: Denies abdominal pain. Denies nausea or vomiting. HEMATOLOGIC: Denies bleeding disorders. GENITOURINARY: Denies any blood in urine. SKIN: Denies pruitis. Denies rash. PHYSICAL EXAM: VITAL SIGNS: Reviewed. GENERAL: Well-developed in no acute distress. HEENT: Head is normocephalic. Pupils are equal, round. Sclerae anicteric. Mucous membranes of the mouth are moist. Neck supple. No JVD or thyromegaly LUNGS: Respirations even and unlabored. Lungs diminished bilaterally. Patient unable to sit up in bed to listen to lungs posteriorly secondary to back pain. HEART: Regular rate and rhythm. S1 and S2 heard. Systolic murmur noted ABDOMEN: Soft. Nondistended. Nontender. EXTREMITIES: Normal range of motion. No clubbing or cyanosis. Peripheral pul ses intact. 2+ bilateral lower extremity edema NEUROLOGIC: Awake and alert. Oriented x 3. ASSESSMENT: Acute back pain, etiology unclear, orthopedics consulted Acute on chronic heart failure with preserved ejection fraction Acute on chronic kidney disease History of kidney transplant Hyperkalemia Abnormal troponin, not suggestive of acute coronary syndrome Hypertension Hyperlipidemia Diabetes Mild to moderate aortic regurgitation, per echo in 2019 PLAN: Obtain 2-D echo to assess cardiac structure and function Continue home cardiac medications Continue IV Lasix 40 mg every 12 hours Daily weights, accurate I&O, and monitoring of kidney function Await evaluation by orthopedics regarding back pain Further recommendations pending patient's course Nurse practitioner note has been reviewed by physician. Signing provider agrees with the documented findings, assessment, and plan of care. Past Medical History Past Medical History: No Reported History, Asthma, Diabetes Mellitus, Dialysis, Eye Disorder, Hyperlipidemia, Hypertension, Renal Disease, Skin Disorder Additional Past Medical History / Comment(s): history of covid, IDDM type II, neuropathy bilateral legs/feet, ESRD with past peritoneal/hemodialysis then in 2016 had renal transplant, UTI with sepsis, IBS, benign colon polyps, chronic low back pain, migraines, R eye retinal bleed with injections, L eye detached retina with surgery, anemia. 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 History of Any Multi-Drug Resistant Organisms: ESBL Date of last positivie culture/infection: 2011 approx(PREVIOUSLY CHARTED) MDRO Source:: peritoneal dialysis cath Past Surgical History: Cholecystectomy, Hysterectomy, Orthopedic Surgery Additional Past Surgical History / Comment(s): Peritoneal dialysis cath since removed, hemodialysis cath since removed, 2016 renal transplant, EGD, colonoscopies/benign polypectomy, bilateral eye cataract removals, L eye detached retinal surgery, L knee arthroscopy Past Anesthesia/Blood Transfusion Reactions: No Reported Reaction Additional Past Anesthesia/Blood Transfusion Reaction / Comment(s): has had a hard time coming out of anesthesia Past Psychological History: No Psychological Hx Reported Smoking Status: Former smoker Past Alcohol Use History: None Reported Past Drug Use History: None Reported - Past Family History Mother History Unknown: Yes Additional Family Medical History / Comment(s): Mother of poisoning when pt was 11 yrs old. Father Family Medical History: Vascular Disorder Additional Family Medical History / Comment(s): brain aneurysm Medications and Allergies Home Medications Medication Instructions Recorded Confirmed Type Tacrolimus [Prograf] 5 mg PO DAILY 07/26/16 12/15/22 History Atorvastatin Calcium [Lipitor] 10 mg PO HS 08/11/16 12/15/22 History Sodium Bicarbonate Tab 1,300 mg PO TID 08/11/16 12/15/22 History amLODIPine [Norvasc] 10 mg PO DAILY 08/11/16 12/15/22 History predniSONE 5 mg PO DAILY 08/25/17 12/15/22 History Tacrolimus [Prograf] 4 mg PO HS 06/01/18 12/15/22 History Insulin Glargine,Hum.rec.anlog 35 unit SQ HS 04/18/20 12/15/22 History [Lantus Solostar Pen] Insulin Lispro [humaLOG Kwikpen] See Protocol SQ AC-TID 04/25/20 12/15/22 History Mycophenolate Sodium [Mycophenolic 360 mg PO BID 04/25/20 12/15/22 History Acid] Ergocalciferol [Vitamin D2 (1250 1,250 mcg PO Q7D 10/27/21 12/15/22 History Mcg = 99600 Iu)] Famotidine 40 mg PO DAILY 10/27/21 12/15/22 History Furosemide [Lasix] 40 mg PO DAILY PRN 10/27/21 12/15/22 History carvediloL [Coreg] 25 mg PO BID 10/27/21 12/15/22 History Albuterol Inhaler [Ventolin Hfa 2 puff INHALATION RT-DAILY 11/24/22 12/15/22 History Inhaler] Aspirin EC [Ecotrin Low Dose] 81 mg PO DAILY 11/24/22 12/15/22 History Diphenox-Atrop 2.5-0.025 mg 1 tab PO TID PRN 11/24/22 12/15/22 History [Lomotil] Docusate [Colace] 100 mg PO DAILY PRN 11/24/22 12/15/22 History Gentamicin 0.1% Cream 1 applic TOPICAL DAILY 11/24/22 12/15/22 History Ketoconazole 2% Cream [Nizoral 2%] 1 applic TOPICAL DAILY PRN 11/24/22 12/15/22 History Sodium Zirconium Cyclosilicate 10 gm PO DAILY 11/24/22 12/15/22 History [Lokelma] Thiamine [Vitamin B-1] 250 mg PO BID 11/24/22 12/15/22 History traMADol HCL 50 - 100 mg PO Q6H PRN 11/24/22 12/15/22 History cloNIDine HCL [Catapres] 0.2 mg PO TID #90 tab 11/30/22 12/15/22 Rx Cefdinir 300 mg PO Q12H 12/15/22 12/15/22 History Allergies Allergy/AdvReac Type Severity Reaction Status Date / Time hydralazine [From Apresoline] Allergy Rash/Hives Verified 12/15/22 06:53 Iodinated Contrast Media Allergy Unknown Verified 12/15/22 06:53 [Iodinated Contrast- Oral and IV Dye] meperidine [From Demerol] Allergy Anaphylaxis Verified 12/15/22 06:53 Penicillins Allergy Rash/Hives Verified 12/15/22 06:53 Physical Exam Vitals: Vital Signs Temp Pulse Resp BP Pulse Ox 12/15/22 06:00 98.1 F 79 18 169/76 98 12/15/22 05:05 80 18 161/84 95 12/15/22 04:00 81 20 167/73 100 12/15/22 03:00 86 18 177/86 100 12/15/22 01:53 81 18 154/77 95 12/14/22 23:47 98.4 F 86 19 164/102 94 L Intake and Output 12/14/22 12/15/22 12/15/22 22:59 06:59 14:59 Other: Weight 83.461 kg Results 12/15/22 00:27 12/15/22 08:22 Cardiac Enzymes 12/15/22 12/15/22 Range/Units 00:27 00:27 AST 21 (14-36) U/L Troponin I 0.040 H* (0.000-0.034) ng/mL Coagulation 12/15/22 Range/Units 00:27 PT 10.4 (9.0-12.0) sec APTT 23.3 (22.0-30.0) sec CBC 12/15/22 Range/Units 00:27 WBC 10.7 H (3.8-10.6) k/uL RBC 3.45 L (3.80-5.40) m/uL Hgb 9.4 L (11.4-16.0) gm/dL Hct 31.6 L (34.0-46.0) % Plt Count 189 (150-450) k/uL Comprehensive Metabolic Panel 12/15/22 12/15/22 Range/Units 00:27 03:07 Sodium 130 L (137-145) mmol/L Potassium 5.7 H 5.4 H (3.5-5.1) mmol/L Chloride 97 L (98-107) mmol/L Carbon Dioxide 24 (22-30) mmol/L BUN 49 H (7-17) mg/dL Creatinine 3.69 H (0.52-1.04) mg/dL Glucose 355 H (74-99) mg/dL Calcium 8.9 (8.4-10.2) mg/dL AST 21 (14-36) U/L ALT 11 (4-34) U/L Alkaline Phosphatase 71 (38-126) U/L Total Protein 6.0 L (6.3-8.2) g/dL Albumin 3.3 L (3.5-5.0) g/dL Current Medications Generic Name Dose Route Start Last Admin Trade Name Freq PRN Reason Stop Dose Admin Acetaminophen 650 mg 12/15/22 03:42 Acetaminophen Tab 325 Mg Tab PO Q6HR PRN Mild Pain or Fever > 100.5 Albuterol Sulfate 2.5 mg 12/15/22 08:00 Albuterol Nebulized 2.5 Mg/3 Ml INHALATION RT-DAILY [facility] Amlodipine Besylate 10 mg 12/15/22 09:00 Amlodipine 10 Mg Tab PO DAILY [facility] Aspirin 81 mg 12/15/22 09:00 Aspirin 81 Mg PO DAILY [facility] Atorvastatin Calcium 10 mg 12/15/22 21:00 Atorvastatin 10 Mg Tab PO HS [facility] Carvedilol 25 mg 12/15/22 09:00 Carvedilol 12.5 Mg Tab PO BID [facility] Clonidine 0.2 mg 12/15/22 09:00 Clonidine Hcl 0.2 Mg Tab PO TID [facility] Dextrose/Water 25 ml 12/15/22 05:31 Dextrose 50% Syringe 50 Ml IVP PER PROTOCOL PRN Hypoglycemia Protocol Dextrose/Water 50 ml 12/15/22 05:31 Dextrose 50% Syringe 50 Ml IVP PER PROTOCOL PRN Hypoglycemia Protocol Docusate Sodium 100 mg 12/15/22 05:23 Docusate 100 Mg Cap PO DAILY PRN Constipation Famotidine 40 mg 12/15/22 09:00 Famotidine 20 Mg Tab PO DAILY [facility] Furosemide 40 mg 12/15/22 09:00 Furosemide 10 Mg/Ml 4 Ml Vial IV Q12HR [facility] Heparin Sodium (Porcine) 5,000 unit 12/15/22 08:00 Heparin Sodium,Porcine/Pf 5,000 Unit/0.5 Ml Syringe SQ Q8HR [facility] Insulin Aspart 0 unit 12/15/22 07:30 Insulin Aspart (Novolog) 100 Unit/Ml Vial SQ ACHS [facility] Protocol Insulin Detemir 35 unit 12/15/22 21:00 Insulin Detemir (Levemir) 100 Unit/Ml Syr SQ HS [facility] Morphine Sulfate 4 mg 12/15/22 03:42 Morphine Sulfate 4 Mg/Ml Syringe IV Q4HR PRN Severe Pain (Scale 7 to 10) Mycophenolate Sodium 360 mg 12/15/22 09:[address] 180 Mg Tablet.Dr PO BID [facility] Naloxone HCl 0.2 mg 12/15/22 03:42 Naloxone 0.4 Mg/Ml 1 Ml Vial IV Q2M PRN Opioid Reversal Ondansetron HCl 4 mg 12/15/22 03:42 Ondansetron 4 Mg/2 Ml Vial IVP Q8HR PRN Nausea And Vomiting Prednisone 5 mg 12/15/22 09:00 Prednisone 5 Mg Tab PO DAILY [facility] Sodium Bicarbonate 1,300 mg 12/15/22 09:00 Sodium Bicarbonate Tab 650 Mg Tab PO TID [facility] Sodium Zirconium Cyclosilicate 10 gm 12/15/22 09:00 Sodium Zirconium Cyclosilicate 10 Gm Packet PO DAILY [facility] Tacrolimus 5 mg 12/15/22 09:00 Tacrolimus 1 Mg Cap PO DAILY [facility] Tacrolimus 4 mg 12/15/22 21:00 Tacrolimus 1 Mg Cap PO HS [facility] Intake and Output 0712/15/22 12/15/22 22:59 06:59 14:59 Other: Weight 83.461 kg 12/15/22 00:27 12/15/22 03:07
--- NOTE | 2022-12-15 11:28 | P.NPCON ---
History of Present Illness - Reason for Consult acute renal failure, chronic renal failure - History of Present Illness Reason for consultation: Acute kidney injury on chronic kidney disease and renal transplant management History of present illness: Patient is a 72-year-old female seen in consultation for acute kidney injury on chronic kidney disease and renal transplant management. Patient received d eceased donor renal allograft in 2016 due to underlying diabetic nephropathy. Patient came to the hospital due to back pain and lower extremity edema. Patient states the pain is sharp and in the middle of her back. She denies chest pain. Pain is improved since admission. Patient was admitted here recently for pneumonia. Upon discharge she stopped taking Lasix at home. It appears that there was a miscommunication and she stopped the diuretic even though she wasn't supposed to. Blood pressures on the higher side. She has been voiding. She is currently on room air. Chest x-ray suggestive of opacities in bilateral lungs burning for pneumonia and atelectasis. She's currently receiving IV Lasix 40 mg twice daily. Denies hematuria. She is maintained on Prograf, prednisone and Myfortic for antirejection meds. Patient has chronic kidney disease stage IV with baseline creatinine recently in the range of 2-2.5. Creatinine 3.7 today. Vital signs are stable. General: No acute distress. HEENT: Head exam is unremarkable. LUNGS: No audible rhonchi or wheezes. HEART: Rate and Rhythm are regular. ABDOMEN: Nontender. EXTREMITITES: 1+ edema. Past Medical History Past Medical History: No Reported History, Asthma, Diabetes Mellitus, Dialysis, Eye Disorder, Hyperlipidemia, Hypertension, Renal Disease, Skin Disorder Additional Past Medical History / Comment(s): history of covid, IDDM type II, neuropathy bilateral legs/feet, ESRD with past peritoneal/hemodialysis then in 2016 had renal transplant, UTI with sepsis, IBS, benign colon polyps, chronic low back pain, migraines, R eye retinal bleed with injections, L eye detached retina with surgery, anemia. 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 History of Any Multi-Drug Resistant Organisms: ESBL Date of last positivie culture/infection: 2011 approx(PREVIOUSLY CHARTED) MDRO Source:: peritoneal dialysis cath Past Surgical History: Cholecystectomy, Hysterectomy, Orthopedic Surgery Additional Past Surgical History / Comment(s): Peritoneal dialysis cath since removed, hemodialysis cath since removed, 2016 renal transplant, EGD, co lonoscopies/benign polypectomy, bilateral eye cataract removals, L eye detached retinal surgery, L knee arthroscopy Past Anesthesia/Blood Transfusion Reactions: No Reported Reaction Additional Past Anesthesia/Blood Transfusion Reaction / Comment(s): has had a hard time coming out of anesthesia Past Psychological History: No Psychological Hx Reported Smoking Status: Former smoker Past Alcohol Use History: None Reported Past Drug Use History: None Reported - Past Family History Mother History Unknown: Yes Additional Family Medical History / Comment(s): Mother of poisoning when pt was 11 yrs old. Father Family Medical History: Vascular Disorder Additional Family Medical History / Comment(s): brain aneurysm Medications and Allergies Home Medications Medication Instructions Recorded Confirmed Type Tacrolimus [Prograf] 5 mg PO DAILY 07/26/16 12/15/22 History Atorvastatin Calcium [Lipitor] 10 mg PO HS 08/11/16 12/15/22 History Sodium Bicarbonate Tab 1,300 mg PO TID 08/11/16 12/15/22 History amLODIPine [Norvasc] 10 mg PO DAILY 08/11/16 12/15/22 History predniSONE 5 mg PO DAILY 08/25/17 12/15/22 History Tacrolimus [Prograf] 4 mg PO HS 06/01/18 12/15/22 History Insulin Glargine,Hum.rec.anlog 35 unit SQ HS 04/18/20 12/15/22 History [Lantus Solostar Pen] Insulin Lispro [humaLOG Kwikpen] See Protocol SQ AC-TID 04/25/20 12/15/22 H istory Mycophenolate Sodium [Mycophenolic 360 mg PO BID 04/25/20 12/15/22 History Acid] Ergocalciferol [Vitamin D2 (1250 1,250 mcg PO Q7D 10/27/21 12/15/22 History Mcg = [id number] Iu)] Famotidine 40 mg PO DAILY 10/27/21 12/15/22 History Furosemide [Lasix] 40 mg PO DAILY PRN 10/27/21 12/15/22 History carvediloL [Coreg] 25 mg PO BID 10/27/21 12/15/22 History Albuterol Inhaler [Ventolin Hfa 2 puff INHALATION RT-DAILY 11/24/22 12/15/22 History Inhaler] Aspirin EC [Ecotrin Low Dose] 81 mg PO DAILY 11/24/22 12/15/22 History Diphenox-Atrop 2.5-0.025 mg 1 tab PO TID PRN 11/24/22 12/15/22 History [Lomotil] Docusate [Colace] 100 mg PO DAILY PRN 11/24/22 12/15/22 History Gentamicin 0.1% Cream 1 applic TOPICAL DAILY 11/24/22 12/15/22 History Ketoconazole 2% Cream [Nizoral 2%] 1 applic TOPICAL DAILY PRN 11/24/22 12/15/22 History Sodium Zirconium Cyclosilicate 10 gm PO DAILY 11/24/22 12/15/22 History [Lokelma] Thiamine [Vitamin B-1] 250 mg PO BID 11/24/22 12/15/22 History traMADol HCL 50 - 100 mg PO Q6H PRN 11/24/22 12/15/22 History cloNIDine HCL [Catapres] 0.2 mg PO TID #90 tab 11/30/22 12/15/22 Rx Cefdinir 300 mg PO Q12H 12/15/22 12/15/22 History Allergies Allergy/AdvReac Type Severity Reaction Status Date / Time hydralazine [From Apresoline] Allergy Rash/Hives Verified 12/15/22 06:53 Iodinated Contrast Media Allergy Unknown Verified 12/15/22 06:53 [Iodinated Contrast- Oral and IV Dye] meperidine [From Demerol] Allergy Anaphylaxis Verified 12/15/22 06:53 Penicillins Allergy Rash/Hives Verified 12/15/22 06:53 Physical Exam Vitals: Vital Signs Temp Pulse Resp BP Pulse Ox FiO2 12/15/22 09:10 98 21 12/15/22 08:16 79 20 166/82 12/15/22 06:00 98.1 F 79 18 169/76 98 12/15/22 05:05 80 18 161/84 95 12/15/22 04:00 81 20 167/73 100 12/15/22 03:00 86 18 177/86 100 12/15/22 01:53 81 18 154/77 95 12/14/22 23:47 98.4 F 86 19 164/102 94 L Intake and Output 12/14/22 12/15/22 12/15/22 22:59 06:59 14:59 Other: Weight 83.461 kg Results - Lab Results Most recent lab results Calcium 8.6 mg/dL (8.4-10.2) 12/15/22 08:22 Magnesium 1.2 mg/dL (1.6-2.3) L 12/15/22 08:22 12/15/22 00:27 12/15/22 08:22 Assessment and Plan Plan: Assessment: 1. 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 Creatinine 3.7 today. 2. Chronic kidney disease stage IV secondary to CNI use and solitary kidney as well as diabetic kidney disease and cardiorenal syndrome. Baseline creatinine 2-2.5. 3. Acute on chronic systolic CHF ejection fraction of 40-45% with mild to moderate mitral regurgitation and moderate tricuspid regurgitation. 4. Volume overload. 5. Status post donor renal allograft in 2016. 6. Hypertension with chronic kidney disease. 7. Diabetes mellitus. 8. Chronic hyperkalemia maintained on Lokelma. 9. Hypomagnesemia from poor intake, diuretic and chronic CNI use. 10. Back pain. Being followed by orthopedic surgery. Plan: Maintain IV Lasix. Maintain home antirejection meds. Check Prograf level. Replace magnesium. Avoid nephrotoxins. Continue to monitor renal function and urine output. Follow-up echocardiogram. Home antihypertensives resumed. Renal diet. Thank you for the consultation. I will continue to follow the patient with you during her hospital stay.
[2022-12-15 12:03] LABS: Glucose,Whole Blood 180 mg/dL (70-110)
[2022-12-15] MEDS: MAGNESIUM SULFATE-D5W PMX 1 GM in DEXTROSE/WATER 1 100ML.BAG IVPB SCH ×3 (12:21→14:59)
--- NOTE | 2022-12-15 12:34 | CT ---
EXAMINATION TYPE: CT thoracic spine wo con DATE OF EXAM: 12/15/2022 COMPARISON: None HISTORY: Mid back pain CT DLP: 1025 mGycm Automated exposure control for dose reduction was used. Contrast: None Technique: Axial images 3 mm thick sections. Reconstructed images in the coronal and sagittal planes. FINDINGS: Diffuse loss of disc height throughout the thoracic spine. Slightly more notable T3-4 T4-5 T5-6 with some mild irregularity of the endplates. Some anterior thoracic fusion may be present from calcificat ion T6-T10. Mild disc space narrowing is present through these levels. There is irregular endplate changes at the inferior endplate of T10. There is marked irregularity of the T12-L1 disc level with some deformity of the vertebral bodies. Some grade 1 retrolisthesis of T12 on L1 is present. No spinal canal stenosis is present. Some canal narrowing could be considered at that T10-11 level in the axial plane. In the axial plane there appears to be some retrolisthesis of T10 and T11 which is not appreciated in the sagittal plane. Severe left foraminal stenosis is present at T9-10 and T10-11 bilaterally. IMPRESSION: 1. MULTILEVEL SEVERE DEGENERATIVE DISC CHANGES MOST NOTABLY AT T12-L1, T10-11. 2. MILDER DEGENERATIVE DISC TYPE CHANGES PRESENT T3-4 T4-5 T5-6. 3. FLOWING CALCIFICATION WITH FUSION OF THE VERTEBRAL BODIES EXTENDING T5 OR T6 THROUGH T10. 4. SEVERE FORAMINAL STENOSIS T9-10 AND T10-11. CORRELATE FOR RADICULAR SYMPTOMS. 5. NO SPINAL CANAL NARROWING IN THE SAGITTAL PLANE.
[2022-12-15] MEDS: ALBUTEROL NEBULIZED 2.5 MG/3 ML INHALATION SCH (12:40)
[2022-12-15 13:47] LABS: Glucose,Whole Blood 141 mg/dL (70-110)
[2022-12-15 17:42] LABS: Glucose,Whole Blood 234 mg/dL (70-110)
[2022-12-15 20:21] LABS: Glucose,Whole Blood 196 mg/dL (70-110)
[2022-12-15] MEDS: ATORVASTATIN 10 MG TAB PO SCH (20:58)
[2022-12-15] MEDS ORDERED: INSULIN DETEMIR (LEVEMIR) 100 UNIT/ML SYR SQ SCH (21:00)
[2022-12-16] MEDS: DEXTROSE 50% SYRINGE 50 ML IVP PRN ×3 (04:52→09:21)
[2022-12-16] MEDS: INSULIN ASPART (NovoLOG) 100 UNIT/ML VIAL SQ SCH ×4 (04:53→21:17)
[2022-12-16 04:54] LABS: Glucose,Whole Blood 31 mg/dL (70-110)
[2022-12-16 05:02] LABS: Glucose,Whole Blood 118 mg/dL (70-110)
[2022-12-16 05:59] LABS: Glucose,Whole Blood 58 mg/dL (70-110)
[2022-12-16 06:24] LABS: Glucose,Whole Blood 107 mg/dL (70-110)
[2022-12-16 07:29] LABS: Glucose,Whole Blood 70 mg/dL (70-110)
[2022-12-16 08:10] LABS: Basophils % (A) 0 %; Eosinophils # (A) 0.2 k/uL (0-0.7); Eosinophils % (A) 2 %; HCT 33.8 % (34.0-46.0); HGB 10.4 gm/dL (11.4-16.0); Hypochromasia Marked; Lymphocytes # (A) 1.1 k/uL (1.0-4.8); Lymphocytes % (A) 10 %; MCHC 30.9 g/dL (31.0-37.0); MCV 90.7 fL (80.0-100.0); Mean Platelet Volume 9.8; Monocytes # (A) 0.8 k/uL (0-1.0); Monocytes % (A) 8 %; Neutrophils # (A) 8.7 k/uL (1.3-7.7); Neutrophils % (A) 80 %; Platelet Count 196 k/uL (150-450); RBC 3.73 m/uL (3.80-5.40); RDW 14.4 % (11.5-15.5); WBC 10.9 k/uL (3.8-10.6)
[2022-12-16 08:36] LABS: African American GFR (CKD) 13 (>60 ml/min/1.73 sqM); Blood Urea Nitrogen 50 mg/dL (7-17); Carbon Dioxide 26 mmol/L (22-30); Chloride 101 mmol/L (98-107); Magnesium 1.9 mg/dL (1.6-2.3); Non-African American GFR(CKD) 11 (>60 ml/min/1.73 sqM)
[2022-12-16 08:37] LABS: Anion Gap 6 mmol/L; Calcium 9.1 mg/dL (8.4-10.2); Glucose 63 mg/dL (74-99); Sodium 133 mmol/L (137-145)
[2022-12-16] MEDS: ALBUTEROL NEBULIZED 2.5 MG/3 ML INHALATION SCH (09:04)
[2022-12-16 09:21] LABS: Glucose,Whole Blood 33 mg/dL (70-110)
[2022-12-16 09:24] LABS: Potassium 5.3 mmol/L (3.5-5.1)
[2022-12-16] MEDS: predniSONE 5 MG TAB PO SCH (09:31)
[2022-12-16] MEDS: FUROSEMIDE 10 MG/ML 4 ML VIAL IV SCH ×2 (09:31→19:52)
[2022-12-16] MEDS: HEPARIN SODIUM,PORCINE/PF 5,000 UNIT/0.5 ML SYRINGE SQ SCH ×3 (09:31→23:03)
[2022-12-16] MEDS: MYCOPHENOLATE SODIUM DR 180 MG TABLET.DR PO SCH ×2 (09:32→20:02)
[2022-12-16] MEDS: SODIUM ZIRCONIUM CYCLOSILICATE 10 GM PACKET PO SCH (09:32)
[2022-12-16] MEDS: ASPIRIN 81 MG PO SCH (09:32)
[2022-12-16] MEDS: cloNIDine HCL 0.2 MG TAB PO SCH ×3 (09:32→20:01)
[2022-12-16] MEDS: carvediloL 12.5 MG TAB PO SCH ×2 (09:32→20:02)
[2022-12-16] MEDS: amLODIPine 10 MG TAB PO SCH (09:32)
[2022-12-16] MEDS: FAMOTIDINE 20 MG TAB PO SCH (09:32)
[2022-12-16] MEDS: SODIUM BICARBONATE TAB 650 MG TAB PO SCH ×3 (09:32→20:02)
[2022-12-16 09:42] LABS: Glucose,Whole Blood 98 mg/dL (70-110)
--- NOTE | 2022-12-16 12:47 | P.PN ---
Subjective Patient is seen in follow-up for acute allograft dysfunction and intercostal and management. Renal function fairly stable. Has been voiding. On IV Lasix. Having loose bowel movements. Denies chest pain or shortness of breath. On room air. Vital signs are stable. General: No acute distress. HEENT: Head exam is unremarkable. LUNGS: No audible rhonchi or wheezes. HEART: Rate and Rhythm are regular. ABDOMEN: Nontender. EXTREMITITES: 1+ edema. Objective - Vital Signs Vital signs: Vital Signs Temp 98.4 F 12/15/22 19:56 Pulse 55 L 12/16/22 09:14 Resp 16 12/16/22 09:14 BP 135/68 12/16/22 04:00 Pulse Ox 97 12/16/22 09:04 FiO2 21 12/15/22 09:10 Intake & Output 12/15/22 12/16/22 12/16/22 18:59 06:59 18:59 Output Total 800 350 Balance -800 -350 Weight 83.461 kg 81.5 kg Output: Urine 800 350 Other: Voiding Method External Catheter # Voids 2 - Labs CBC & Chem 7: 12/16/22 07:41 12/16/22 10:56 Labs: Abnormal Lab Results - Last 24 Hours (Table) 12/15/22 12/15/22 12/15/22 Range/Units 08:22 13:46 17:41 WBC (3.8-10.6) k/uL RBC (3.80-5.40) m/uL Hgb (11.4-16.0) gm/dL Hct (34.0-46.0) % MCHC (31.0-37.0) g/dL Neutrophils # (1.3-7.7) k/uL Sodium (137-145) mmol/L Potassium (3.5-5.1) mmol/L BUN (7-17) mg/dL Creatinine (0.52-1.04) mg/dL Glucose (74-99) mg/dL POC Glucose (mg/dL) 141 H 234 H (70-110) mg/dL Hemoglobin A1c (<=6.0) % Procalcitonin 0.55 H (0.02-0.09) ng/mL 12/15/22 12/16/22 12/16/22 Range/Units 20:16 04:52 05:00 WBC (3.8-10.6) k/uL RBC (3.80-5.40) m/uL Hgb (11.4-16.0) gm/dL Hct (34.0-46.0) % MCHC (31.0-37.0) g/dL Neutrophils # (1.3-7.7) k/uL Sodium (137-145) mmol/L Potassium (3.5-5.1) mmol/L BUN (7-17) mg/dL Creatinine (0.52-1.04) mg/dL Glucose (74-99) mg/dL POC Glucose (mg/dL) 196 H 31 L 118 H (70-110) mg/dL Hemoglobin A1c (<=6.0) % Procalcitonin (0.02-0.09) ng/mL 12/16/22 12/16/22 12/16/22 Range/Units 05:59 07:23 07:41 WBC (3.8-10.6) k/uL RBC (3.80-5.40) m/uL Hgb (11.4-16.0) gm/dL Hct (34.0-46.0) % MCHC (31.0-37.0) g/dL Neutrophils # (1.3-7.7) k/uL Sodium 133 L (137-145) mmol/L Potassium 5.3 H (3.5-5.1) mmol/L BUN 50 H (7-17) mg/dL Creatinine 3.88 H (0.52-1.04) mg/dL Glucose 63 L (74-99) mg/dL POC Glucose (mg/dL) 58 L (70-110) mg/dL Hemoglobin A1c 7.2 H (<=6.0) % Procalcitonin (0.02-0.09) ng/mL 12/16/22 12/16/22 12/16/22 Range/Units 07:41 09:17 10:56 WBC 10.9 H (3.8-10.6) k/uL RBC 3.73 L (3.80-5.40) m/uL Hgb 10.4 L (11.4-16.0) gm/dL Hct 33.8 L (34.0-46.0) % MCHC 30.9 L (31.0-37.0) g/dL Neutrophils # 8.7 H (1.3-7.7) k/uL Sodium (137-145) mmol/L Potassium (3.5-5.1) mmol/L BUN (7-17) mg/dL Creatinine (0.52-1.04) mg/dL Glucose 141 H (74-99) mg/dL POC Glucose (mg/dL) 33 L (70-110) mg/dL Hemoglobin A1c (<=6.0) % Procalcitonin (0.02-0.09) ng/mL Assessment and Plan Plan: Assessment: 1. 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 Creatinine fairly stable at 3.88 today. 2. Chronic kidney disease stage IV secondary to CNI use and solitary kidney as well as diabetic kidney disease and cardiorenal syndrome. Baseline creatinine 2-2.5. 3. Acute on chronic systolic CHF ejection fraction of 40-45% with mild to moderate mitral regurgitation and moderate tricuspid regurgitation. 4. Volume overload. 5. Status post donor renal allograft in 2016. 6. Hypertension with chronic kidney disease. 7. Diabetes mellitus. 8. Chronic hyperkalemia maintained on Lokelma. 9. Hypomagnesemia from poor intake, diuretic and chronic CNI use. Replaced. Improved. 10. Back pain. Being followed by orthopedic surgery. ?OM. Plan: Maintain IV Lasix. Maintain home antirejection meds. Follow-up Prograf level. Avoid nephrotoxins. Continue to monitor renal function and urine output. Follow-up echocardiogram and MRI. Renal diet.
--- NOTE | 2022-12-16 13:03 | P.PN ---
Subjective HISTORY OF PRESENT ILLNESS: This is a 72-year-old female with a past medical history significant for right kidney disease with previous kidney transplant, diabetes, hypertension, hyperlipidemia, aortic insufficiency, and congestive heart failure. Patient follows in the office with Dr. Dr. Whyte. We have been asked to see the patient in consultation for congestive heart failure. Patient examined at the bedside in the emergency room. Patient presented to the hospital with a chief complaint of back pain. She states that pain is in the middle of her back. She denied having any chest pain or pressure. She denies having any shortness of breath. The patient does report worsening swelling in her legs. According to the patient's nurse, the patient accidentally stopped taking her Lasix instead of discontinuing her losartan. Orthopedics has been consulted to evaluate her back pain. The patient was also found to be in acute CHF and was started on IV Lasix. * EKG reveals sinus mechanism with T-wave inversions inferiorly * Chest xray opacities in the right lower lung, concerning for pneumonia. Opacities in the left mid and lower lung, concerning for atelectasis. * Laboratory data: WBC 10.7. Hemoglobin 9.4. Platelet count 189. Sodium 131. Potassium 5.5. BUN 45. Creatinine 3.72. Magnesium 1.2. Troponin 0.040. ProBNP 25,600. * Current home cardiac medications include Catapres 0.2 mg 3 times a day, carved ilol 25 mg twice a day, amlodipine 10 mg daily, Lasix 40 mg daily as needed, Lipitor 10 mg at night, aspirin 81 mg daily * Most recent echocardiogram obtained in August 2019 revealed normal ejection fra ction, mild MR, [id number] AR * Patient underwent Lexiscan stress test in February 2017 which was negative for ischemia 12/16/2022 Patient examined this afternoon at the bedside. Patients family present. Patient currently denies chest pain or pressure. She denies shortness of breath. She continues to have lower extremity edema. She is maintained on IV Lasix 40 mg every 12 hours. Renal function is stable at 3.8. Patient states her back pain is improved today and she is able to sit up during examination which she was unable to do yesterday. Vital signs are stable. PHYSICAL EXAM: VITAL SIGNS: Reviewed. GENERAL: Well-developed in no acute distress. HEENT: Head is normocephalic. Pupils are equal, round. Sclerae anicteric. Mucous membranes of the mouth are moist. Neck supple. No JVD or thyromegaly LUNGS: Respirations even and unlabored. Lungs diminished bilaterally with a few crackles at the bases HEART: Regular rate and rhythm. S1 and S2 heard. Systolic murmur noted ABDOMEN: Soft. Nondistended. Nontender. EXTREMITIES: Normal range of motion. No clubbing or cyanosis. Peripheral pulses intact. 2+ bilateral lower extremity edema NEUROLOGIC: Awake and alert. Oriented x 3. ASSESSMENT: Acute back pain, etiology unclear, orthopedics consulted Acute on chronic heart failure with preserved ejection fraction Acute on chronic kidney disease History of kidney transplant Hyperkalemia Abnormal troponin, not suggestive of acute coronary syndrome Hypertension Hyperlipidemia Diabetes Mild to moderate aortic regurgitation, per echo in 2019 PLAN: 2-D echo ordered. Await results Continue current cardiac medications Continue IV Lasix 40 mg every 12 hours Daily weights, accurate I&O, and monitoring of kidney function Further recommendations pending patient's course Nurse practitioner note has been reviewed by physician. Signing provider agrees with the documented findings, assessment, and plan of care. Objective - Vital Signs Vital signs: Vital Signs Temp 98.4 F 12/15/22 19:56 Pulse 55 L 12/16/22 09:14 Resp 16 12/16/22 09:14 BP 135/68 12/16/22 04:00 Pulse Ox 97 12/16/22 09:04 FiO2 21 12/15/22 09:10 Intake & Output 12/15/22 12/16/22 12/16/22 18:59 06:59 18:59 Output Total 800 350 Balance -800 -350 Weight 83.461 kg 81.5 kg Output: Urine 800 350 Other: Voiding Method External Catheter # Voids 2 - Labs CBC & Chem 7: 12/16/22 07:41 12/16/22 10:56 Labs: Abnormal Lab Results - Last 24 Hours (Table) 12/15/22 12/15/22 12/15/22 Range/Units 08:22 13:46 17:41 WBC (3.8-10.6) k/uL RBC (3.80-5.40) m/uL Hgb (11.4-16.0) gm/dL Hct (34.0-46.0) % MCHC (31.0-37.0) g/dL Neutrophils # (1.3-7.7) k/uL Sodium (137-145) mmol/L Potassium (3.5-5.1) mmol/L BUN (7-17) mg/dL Creatinine (0.52-1.04) mg/dL Glucose (74-99) mg/dL POC Glucose (mg/dL) 141 H 234 H (70-110) mg/dL Hemoglobin A1c (<=6.0) % Procalcitonin 0.55 H (0.02-0.09) ng/mL 12/15/22 12/16/22 12/16/22 Range/Units 20:16 04:52 05:00 WBC (3.8-10.6) k/uL RBC (3.80-5.40) m/uL Hgb (11.4-16.0) gm/dL Hct (34.0-46.0) % MCHC (31.0-37.0) g/dL Neutrophils # (1.3-7.7) k/uL Sodium (137-145) mmol/L Potassium (3.5-5.1) mmol/L BUN (7-17) mg/dL Creatinine (0.52-1.04) mg/dL Glucose (74-99) mg/dL POC Glucose (mg/dL) 196 H 31 L 118 H (70-110) mg/dL Hemoglobin A1c (<=6.0) % Procalcitonin (0.02-0.09) ng/mL 12/16/22 12/16/22 12/16/22 Range/Units 05:59 07:23 07:41 WBC (3.8-10.6) k/uL RBC (3.80-5.40) m/uL Hgb (11.4-16.0) gm/dL Hct (34.0-46.0) % MCHC (31.0-37.0) g/dL Neutrophils # (1.3-7.7) k/uL Sodium 133 L (137-145) mmol/L Potassium 5.3 H (3.5-5.1) mmol/L BUN 50 H (7-17) mg/dL Creatinine 3.88 H (0.52-1.04) mg/dL Glucose 63 L (74-99) mg/dL POC Glucose (mg/dL) 58 L (70-110) mg/dL Hemoglobin A1c 7.2 H (<=6.0) % Procalcitonin (0.02-0.09) ng/mL 12/16/22 12/16/22 12/16/22 Range/Units 07:41 09:17 10:56 WBC 10.9 H (3.8-10.6) k/uL RBC 3.73 L (3.80-5.40) m/uL Hgb 10.4 L (11.4-16.0) gm/dL Hct 33.8 L (34.0-46.0) % MCHC 30.9 L (31.0-37.0) g/dL Neutrophils # 8.7 H (1.3-7.7) k/uL Sodium (137-145) mmol/L Potassium (3.5-5.1) mmol/L BUN (7-17) mg/dL Creatinine (0.52-1.04) mg/dL Glucose 141 H (74-99) mg/dL POC Glucose (mg/dL) 33 L (70-110) mg/dL Hemoglobin A1c (<=6.0) % Procalcitonin (0.02-0.09) ng/mL
[2022-12-16] MEDS: DEXTROSE 10% IN WATER 500 ML in EMPTY BAG 1 BAG IV SCH ×2 (14:50→16:51)
--- NOTE | 2022-12-16 15:20 | P.PN ---
Subjective Progress Note Date: 12/16/22 Hospital course: 72 y.o. female with hx of renal transplant on immunosuppressive medications, IDDM, HTN and HLD presenting with confusion and edema. She was recently discharged for sepsis and pna. Her Cr was elevated from her baseline, had elevated proBNP, slightly elevated troponin. She was started on IV lasix. Patient has also been complaining of low back pain without radicular symptoms. Nephrology, cardiology, and Orthospine consulted. Subjective: Patient seen and examined at bedside. Overnight, patient had symptomatic hypoglycemia, and resolved with dextrose. Currently denies any complaints. Pertinent positives and negatives as discussed above, a complete review of systems was performed and all other systems are negative. Vitals Signs Reviewed. General: nontoxic, no distress, appears at stated age, chronically ill-appearing Derm: warm, dry Head: atraumatic, normocephalic, symmetric Eyes: EOMI, no lid lag, anicteric sclera Mouth: no lip lesion, mucus membranes moist Cardiovascular: S1S2 reg, no murmur Lungs: Bilateral rales , no accessory muscle use Abdominal: soft, nontender to palpation, no guarding, no appreciable organomegaly Ext: no gross muscle atrophy, 2+ pitting edema, no contractures Neuro: CN II-XI grossly intact, no focal neuro deficits Psych: Alert, oriented, appropriate affect Data Reviewed Today: Pertinent Labs: WBC 10.9, hemoglobin 10.4, sodium 133, potassium 5.3, creatinine 3.88, blood sugar most recently was 141 Imaging: No new imaging Assessment and Plan: Acute kidney injury on chronic kidney disease Acute metabolic encephalopathy, resolved History of renal transplant Hypervolemia Hyperkalemia Elevated troponin, likely in the setting of renal disease Uncontrolled hypertension Low back pain Insulin-dependent diabetes -Continue IV Lasix, 40 mg twice a day -Continue immunosuppressive medications -Nephrology note reviewed, continue diuretics, Prograf level pending -on lokelma -Continue Coreg, amlodipine, clonidine -Cardiology note reviewed, echocardiogram pending -Orthospine following, MRI pending -Avoid morphine given severe renal disease -Patient had couple of episodes of hypoglycemia, Levemir discontinued, continue sliding scale insulin DVT ppx: Subcu heparin Code status: Full code Anticipated discharge place: pending clincal course Anticipated discharge time: pending clinical course Objective - Vital Signs Vital signs: Vital Signs Temp 98.3 F 12/16/22 12:00 Pulse 60 12/16/22 12:00 Resp 18 12/16/22 12:00 BP 122/70 12/16/22 12:00 Pulse Ox 98 12/16/22 12:00 FiO2 21 12/15/22 09:10 Intake & Output 12/15/22 12/16/22 12/16/22 18:59 06:59 18:59 Output Total 800 350 Balance -800 -350 Weight 83.461 kg 81.5 kg Output: Urine 800 350 Other: Voiding Method External Catheter External Catheter # Voids 2 # Bowel Movements 1 - Labs CBC & Chem 7: 12/16/22 07:41 12/16/22 10:56 Labs: Abnormal Lab Results - Last 24 Hours (Table) 12/15/22 12/15/22 12/15/22 Range/Units 08:22 17:41 20:16 WBC (3.8-10.6) k/uL RBC (3.80-5.40) m/uL Hgb (11.4-16.0) gm/dL Hct (34.0-46.0) % MCHC (31.0-37.0) g/dL Neutrophils # (1.3-7.7) k/uL Sodium (137-145) mmol/L Potassium (3.5-5.1) mmol/L BUN (7-17) mg/dL Creatinine (0.52-1.04) mg/dL Glucose (74-99) mg/dL POC Glucose (mg/dL) 234 H 196 H (70-110) mg/dL Hemoglobin A1c (<=6.0) % Procalcitonin 0.55 H (0.02-0.09) ng/mL 12/16/22 12/16/22 12/16/22 Range/Units 04:52 05:00 05:59 WBC (3.8-10.6) k/uL RBC (3.80-5.40) m/uL Hgb (11.4-16.0) gm/dL Hct (34.0-46.0) % MCHC (31.0-37.0) g/dL Neutrophils # (1.3-7.7) k/uL Sodium (137-145) mmol/L Potassium (3.5-5.1) mmol/L BUN (7-17) mg/dL Creatinine (0.52-1.04) mg/dL Glucose (74-99) mg/dL POC Glucose (mg/dL) 31 L 118 H 58 L (70-110) mg/dL Hemoglobin A1c (<=6.0) % Procalcitonin (0.02-0.09) ng/mL 12/16/22 12/16/22 12/16/22 Range/Units 07: 07:41 07:41 WBC 10.9 H (3.8-10.6) k/uL RBC 3.73 L (3.80-5.40) m/uL Hgb 10.4 L (11.4-16.0) gm/dL Hct 33.8 L (34.0-46.0) % MCHC 30.9 L (31.0-37.0) g/dL Neutrophils # 8.7 H (1.3-7.7) k/uL Sodium 133 L (137-145) mmol/L Potassium 5.3 H (3.5-5.1) mmol/L BUN 50 H (7-17) mg/dL Creatinine 3.88 H (0.52-1.04) mg/dL Glucose 63 L (74-99) mg/dL POC Glucose (mg/dL) (70-110) mg/dL Hemoglobin A1c 7.2 H (<=6.0) % Procalcitonin (0.02-0.09) ng/mL 12/16/22 12/16/22 Range/Units :17 10:56 WBC (3.8-10.6) k/uL RBC (3.80-5.40) m/uL Hgb (11.4-16.0) gm/dL Hct (34.0-46.0) % MCHC (31.0-37.0) g/dL Neutrophils # (1.3-7.7) k/uL Sodium (137-145) mmol/L Potassium (3.5-5.1) mmol/L BUN (7-17) mg/dL Creatinine (0.52-1.04) mg/dL Glucose 141 H (74-99) mg/dL POC Glucose (mg/dL) 33 L (70-110) mg/dL Hemoglobin A1c (<=6.0) % Procalcitonin (0.02-0.09) ng/mL
--- NOTE | 2022-12-16 15:36 | P.CNOR ---
History of Present Illness - [facility] Consult date: 12/16/22 Requesting physician: Lidia Elaine Consult reason: other (low back pain , abnormalCT findings) History of present illness: Patient presented to the emergency department [facility] on 12/15/2022 with a chief complaint lower extremity edema, hyperglycemia, confusion. Patient does have a significant past medical history for diabetes, asthma, kidney transferring, diabetes, neuropathy. Orthopedics has been consulted for CT findings of spine. Patient was seen at bedside this morning lying in semirecumbent position with family members present during encounter. Patient says most of the pain she is having is localized to her lower mid back as well as low back. Patient says the pain is worse on the right side. Patient describes the pain as achy and sometimes stabbing in nature. Patient denies any radiation of pain. Patient denies any numbness/tingling down the bilateral lower extremity. Patient denies any loss of bowel/bladder control. Patient says she has had back pain ongoing for a long period of time. She says she has had what she thinks was about 3 injections into her low back in the past. Patient denies any previous orthopedic surgeries. Patient says she does follow up in the outpatient setting with Dr. Hinkle for her knee and she says she has seen Dr. Nieto once for her neck. Patient says the pain in her low back does come and go. Patient says is worse when she ambulates. Patient says normally at home she does not use a walker or cane. Patient says since she has been the hospital she has been using a walker. CT of thoracic spine was performed. Patient does not want to have an MRI of her spine. Patient denies chest pain, fever, shortness of breath, nausea, vomiting, change in vision, loss of bowel/bladder control. Past Medical History Past Medical History: No Reported History, Asthma, Diabetes Mellitus, Dialysis, Eye Disorder, Hyperlipidemia, Hypertension, Renal Disease, Skin Disorder Additional Past Medical History / Comment(s): history of covid, IDDM type II, neuropathy bilateral legs/feet, ESRD with past peritoneal/hemodialysis then in 2016 had renal transplant, UTI with sepsis, IBS, benign colon polyps, chronic low back pain, migraines, R eye retinal bleed with injections, L eye detached retina with surgery, anemia. 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 History of Any Multi-Drug Resistant Organisms: ESBL Year Discovered:: 2011 approx(PREVIOUSLY CHARTED) MDRO Source:: peritoneal dialysis cath Past Surgical History: Cholecystectomy, Hysterectomy, Orthopedic Surgery Additional Past Surgical History / Comment(s): Peritoneal dialysis cath since removed, hemodialysis cath since removed, 2016 renal transplant, EGD, colonoscopies/benign polypectomy, bilateral eye cataract removals, L eye detached retinal surgery, L knee arthroscopy Past Anesthesia/Blood Transfusion Reactions: No Reported Reaction Additional Past Anesthesia/Blood Transfusion Reaction / Comm: has had a hard time coming out of anesthesia Past Psychological History: No Psychological Hx Reported Additional Psychological History / Comment(s): 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 She is independent. Smoking Status: Former smoker Past Alcohol Use History: None Reported Additional Past Alcohol Use History / Comment(s): Pt started smoking 1979,quit smoking 1989, smoked 3 packs per week. Past Drug Use History: None Reported - Past Family History Mother History Unknown: Yes Additional Family Medical History / Comment(s): Mother of poisoning when pt was 11 yrs old. Father Family Medical History: Vascular Disorder Additional Family Medical History / Comment(s): brain aneurysm Medications and Allergies Home Medications Medication Instructions Recorded Confirmed Type Tacrolimus [Prograf] 5 mg PO DAILY 07/26/16 12/15/22 History Atorvastatin Calcium [Lipitor] 10 mg PO HS 08/11/16 12/15/22 History Sodium Bicarbonate Tab 1,300 mg PO TID 08/11/16 12/15/22 History amLODIPine [Norvasc] 10 mg PO DAILY 08/11/16 12/15/22 History predniSONE 5 mg PO DAILY 08/25/17 12/15/22 History Tacrolimus [Prograf] 4 mg PO HS 06/01/18 12/15/22 History Insulin Glargine,Hum.rec.anlog 35 unit SQ HS 04/18/20 12/15/22 History [Lantus Solostar Pen] Insulin Lispro [humaLOG Kwikpen] See Protocol SQ AC-TID 04/25/20 12/15/22 History Mycophenolate Sodium [Mycophenolic 360 mg PO BID 04/25/20 12/15/22 History Acid] Ergocalciferol [Vitamin D2 (1250 1,250 mcg PO Q7D 10/27/21 12/15/22 History Mcg = 07637 Iu)] Famotidine 40 mg PO DAILY 10/27/21 12/15/22 History Furosemide [Lasix] 40 mg PO DAILY PRN 10/27/21 12/15/22 History carvediloL [Coreg] 25 mg PO BID 10/27/21 12/15/22 History Albuterol Inhaler [Ventolin Hfa 2 puff INHALATION RT-DAILY 11/24/22 12/15/22 History Inhaler] Aspirin EC [Ecotrin Low Dose] 81 mg PO DAILY 11/24/22 12/15/22 History Diphenox-Atrop 2.5-0.025 mg 1 tab PO TID PRN 11/24/22 12/15/22 History [Lomotil] Docusate [Colace] 100 mg PO DAILY PRN 11/24/22 12/15/22 History Gentamicin 0.1% Cream 1 applic TOPICAL DAILY 11/24/22 12/15/22 History Ketoconazole 2% Cream [Nizoral 2%] 1 applic TOPICAL DAILY PRN 11/24/22 12/15/22 History Sodium Zirconium Cyclosilicate 10 gm PO DAILY 11/24/22 12/15/22 History [Lokelma] Thiamine [Vitamin B-1] 250 mg PO BID 11/24/22 12/15/22 History traMADol HCL 50 - 100 mg PO Q6H PRN 11/24/22 12/15/22 History cloNIDine HCL [Catapres] 0.2 mg PO TID #90 tab 11/30/22 12/15/22 Rx Cefdinir 300 mg PO Q12H 12/15/22 12/15/22 History Allergies Allergy/AdvReac Type Severity Reaction Status Date / Time hydralazine [From Apresoline] Allergy Rash/Hives Verified 12/15/22 06:53 Iodinated Contrast Media Allergy Unknown Verified 12/15/22 06:53 [Iodinated Contrast- Oral and IV Dye] meperidine [From Demerol] Allergy Anaphylaxis Verified 12/15/22 06:53 Penicillins Allergy Rash/Hives Verified 12/15/22 06:53 Physical Examination Inspection: Negative for any significant erythema/ecchymosis/open wounds. Negative for any open fractures. Positive for scoliosis throughout spine. Sensation: Equal, symmetric, bilaterally intact throughout the upper and lower extremity exam. Palpation: moderate TTP throughout the lower thoracic spine at midline and in the upper lumbar spine at midline. There also is some fair amount of tenderness to palpation over the bilateral SI joints. NTTP throughout rest of exam Range of motion: Patient has full range of motion in bilateral upper extremities on exam. Patient does have some limited range of motion bilaterally in hip flexion/extension due to referred pain from the back. Patient does have some limited range of motion in knees and flexion/extension due to; position in bed. She is able to fully extend the knees bilaterally while lying in bed. Patient has full range of motion in dorsi/plantar flexion bilaterally. Motor: 4/5 in all major motor groups in bilateral upper and lower extremities Neurovascular status: Radial pulse intact, 2+ bilaterally. Cap refill under 3 seconds in digits of upper extremities Special tests: Negative Homans bilaterally. Negative Anthony bilaterally. Negative clonus bilaterally. Results - Labs Labs: Abnormal Lab Results - Last 24 Hours (Table) 12/15/22 12/15/22 12/15/22 Range/Units 08:22 17:41 20:16 WBC (3.8-10.6) k/uL RBC (3.80-5.40) m/uL Hgb (11.4-16.0) gm/dL Hct (34.0-46.0) % MCHC (31.0-37.0) g/dL Neutrophils # (1.3-7.7) k/uL Sodium (137-145) mmol/L Potassium (3.5-5.1) mmol/L BUN (7-17) mg/dL Creatinine (0.52-1.04) mg/dL Glucose (74-99) mg/dL POC Glucose (mg/dL) 234 H 196 H (70-110) mg/dL Hemoglobin A1c (<=6.0) % Procalcitonin 0.55 H (0.02-0.09) ng/mL 12/16/22 12/16/22 12/16/22 Range/Units 04:52 05:00 05:59 WBC (3.8-10.6) k/uL RBC (3.80-5.40) m/uL Hgb (11.4-16.0) gm/dL Hct (34.0-46.0) % MCHC (31.0-37.0) g/dL Neutrophils # (1.3-7.7) k/uL Sodium (137-145) mmol/L Potassium (3.5-5.1) mmol/L BUN (7-17) mg/dL Creatinine (0.52-1.04) mg/dL Glucose (74-99) mg/dL POC Glucose (mg/dL) 31 L 118 H 58 L (70-110) mg/dL Hemoglobin A1c (<=6.0) % Procalcitonin (0.02-0.09) ng/mL 12/16/22 12/16/22 12/16/22 Range/Units : 07:41 07:41 WBC 10.9 H (3.8-10.6) k/uL RBC 3.73 L (3.80-5.40) m/uL Hgb 10.4 L (11.4-16.0) gm/dL Hct 33.8 L (34.0-46.0) % MCHC 30.9 L (31.0-37.0) g/dL Neutrophils # 8.7 H (1.3-7.7) k/uL Sodium 133 L (137-145) mmol/L Potassium 5.3 H (3.5-5.1) mmol/L BUN 50 H (7-17) mg/dL Creatinine 3.88 H (0.52-1.04) mg/dL Glucose 63 L (74-99) mg/dL POC Glucose (mg/dL) (70-110) mg/dL Hemoglobin A1c 7.2 H (<=6.0) % Procalcitonin (0.02-0.09) ng/mL 12/16/22 12/16/22 Range/Units :17 10:56 WBC (3.8-10.6) k/uL RBC (3.80-5.40) m/uL Hgb (11.4-16.0) gm/dL Hct (34.0-46.0) % MCHC (31.0-37.0) g/dL Neutrophils # (1.3-7.7) k/uL Sodium (137-145) mmol/L Potassium (3.5-5.1) mmol/L BUN (7-17) mg/dL Creatinine (0.52-1.04) mg/dL Glucose 141 H (74-99) mg/dL POC Glucose (mg/dL) 33 L (70-110) mg/dL Hemoglobin A1c (<=6.0) % Procalcitonin (0.02-0.09) ng/mL H & H 12/15/22 12/16/22 Range/Units 00:27 07:41 Hgb 9.4 L 10.4 L (11.4-16.0) gm/dL Hct 31.6 L 33.8 L (34.0-46.0) % Coagulation 12/15/22 Range/Units 00:27 INR 1.0 (<1.2) Result Diagrams: 12/16/22 07:41 12/16/22 10:56 - Diagnostic results Comments: Computed tomography scan thoracic spine does demonstrate degenerative disc disease diffusely. Negative for any significant fractures/ spondylolisthesis. Severe foraminal stenosis from T9 through T11 Assessment and Plan Assessment: 1. Back pain; degenerative disc disease; T9-T11 neuroforaminal stenosis; DISH 2. Multiple medical comorbidities Plan: 1. Back pain; degenerative disc disease; T9-T11 neuroforaminal stenosis; DISH - patient stable at bedside this morning. CT of the thoracic spine negative for any fractures/spondylolisthesis. There is neuroforaminal stenosis from T9 through T11 and degenerative disc disease throughout the lower thoracic spine. patient does not present with any significant weakness on exam. Patient does h ave localized tenderness throughout lower thoracic spine and upper lumbar spine. Negative for any lower extremity paresthesias. Due to the patient's multiple medical comorbidities, we are not recommending any emergent orthopedic surgical intervention. MRI would be better for eval of neuroforaminal stenosis. patient does not want MRI at this time. Recommend conservative measures at this time via pain medication possible steroids if indicated with her medical history. Recommend PT/OT daily. Do recommend patient to follow-up in the outpatient setting for further evaluation with Dr. Nieto for her thoracic spine. We will continue to be available as needed. 2. Appreciate medical, nephrology and cardio management 3. Pain management - Tylenol 4. DVT prophylaxis - aspirin 5. GI ppx - coalce; pepcid 6. PT/OT - WBAT w/walker and assistance 7. Encourage incentive spirometer use 8. Appreciate consult Time with Patient: Less than 30
[2022-12-16 16:50] LABS: Glucose,Whole Blood 54 mg/dL (70-110)
[2022-12-16 17:11] LABS: Glucose,Whole Blood 68 mg/dL (70-110)
[2022-12-16 19:04] LABS: Glucose,Whole Blood 106 mg/dL (70-110)
[2022-12-16] MEDS: TACROLIMUS 1 MG CAP PO SCH (20:02)
[2022-12-16] MEDS: ATORVASTATIN 10 MG TAB PO SCH (20:02)
[2022-12-16] MEDS: THIAMINE 100 MG TAB PO SCH (20:03)
[2022-12-16 21:10] LABS: Glucose,Whole Blood 130 mg/dL (70-110)
[2022-12-16 23:01] LABS: Glucose,Whole Blood 166 mg/dL (70-110)
[2022-12-17 01:06] LABS: Glucose,Whole Blood 166 mg/dL (70-110)
[2022-12-17 02:45] LABS: Glucose,Whole Blood 151 mg/dL (70-110)
[2022-12-17 05:18] LABS: Glucose,Whole Blood 188 mg/dL (70-110)
[2022-12-17 06:52] LABS: Glucose,Whole Blood 179 mg/dL (70-110)
[2022-12-17] MEDS: INSULIN ASPART (NovoLOG) 100 UNIT/ML VIAL SQ SCH ×4 (06:53→20:23)
[2022-12-17 06:59] LABS: Basophils % (A) 0 %; Eosinophils # (A) 0.1 k/uL (0-0.7); Eosinophils % (A) 1 %; HCT 29.7 % (34.0-46.0); Hypochromasia Marked; Lymphocytes # (A) 1.2 k/uL (1.0-4.8); Lymphocytes % (A) 17 %; MCH 26.3 pg (25.0-35.0); MCHC 29.2 g/dL (31.0-37.0); MCV 90.1 fL (80.0-100.0); Mean Platelet Volume 11.6; Monocytes # (A) 0.4 k/uL (0-1.0); Monocytes % (A) 6 %; Neutrophils # (A) 5.4 k/uL (1.3-7.7); Neutrophils % (A) 75 %; Platelet Count 163 k/uL (150-450); RDW 14.4 % (11.5-15.5); WBC 7.2 k/uL (3.8-10.6)
[2022-12-17 07:19] LABS: African American GFR (CKD) 12 (>60 ml/min/1.73 sqM); Anion Gap 6 mmol/L; Blood Urea Nitrogen 48 mg/dL (7-17); Calcium 8.6 mg/dL (8.4-10.2); Carbon Dioxide 27 mmol/L (22-30); Chloride 99 mmol/L (98-107); Glucose 173 mg/dL (74-99); Non-African American GFR(CKD) 11 (>60 ml/min/1.73 sqM); Potassium 5.8 mmol/L (3.5-5.1); Sodium 132 mmol/L (137-145)
[2022-12-17] MEDS: ALBUTEROL NEBULIZED 2.5 MG/3 ML INHALATION SCH (08:05)
[2022-12-17 08:40] LABS: HGB 8.7 gm/dL (11.4-16.0)
[2022-12-17] MEDS: MYCOPHENOLATE SODIUM DR 180 MG TABLET.DR PO SCH ×2 (09:33→20:21)
[2022-12-17] MEDS: SODIUM ZIRCONIUM CYCLOSILICATE 10 GM PACKET PO SCH ×2 (09:33→20:23)
[2022-12-17] MEDS: THIAMINE 100 MG TAB PO SCH ×2 (09:34→20:22)
[2022-12-17] MEDS: FAMOTIDINE 20 MG TAB PO SCH (09:34)
[2022-12-17] MEDS: predniSONE 5 MG TAB PO SCH (09:34)
[2022-12-17] MEDS: ASPIRIN 81 MG PO SCH (09:34)
[2022-12-17] MEDS: cloNIDine HCL 0.2 MG TAB PO SCH ×3 (09:34→20:22)
[2022-12-17] MEDS: SODIUM BICARBONATE TAB 650 MG TAB PO SCH ×3 (09:34→20:22)
[2022-12-17] MEDS: carvediloL 12.5 MG TAB PO SCH ×2 (09:34→20:22)
[2022-12-17] MEDS: amLODIPine 10 MG TAB PO SCH (09:34)
[2022-12-17] MEDS: TACROLIMUS 1 MG CAP PO SCH ×2 (09:35→20:21)
[2022-12-17] MEDS: HEPARIN SODIUM,PORCINE/PF 5,000 UNIT/0.5 ML SYRINGE SQ SCH ×2 (09:35→15:12)
--- NOTE | 2022-12-17 09:45 | P.PN ---
Subjective Progress Note Date: 12/17/22 Principal diagnosis: Back pain; degenerative disc disease; T9-T11 neuroforaminal stenosis; DISH Patient was seen at bedside this morning lying semirecumbent position. Echocardiogram was performed at bedside just little bit ago. Patient says she is still having back pain at this time and describes it as aching and sometimes stabbing in nature. Patient denies radiation of pain. Patient denies any lower extremity paresthesias. Patient denies loss of bowel/bladder control. Patient denies any changes since yesterday. Patient does not want MRI of lumbar spine. Patient denies chest pain, fever, shortness breath, nausea, vomiting,/bladder control. Objective - Vital Signs Vital signs: Vital Signs Temp 98.4 F 12/17/22 09:31 Pulse 66 12/17/22 09:31 Resp 16 12/17/22 09:31 BP 118/65 12/17/22 09:31 Pulse Ox 98 12/17/22 09:31 FiO2 21 12/15/22 09:10 Intake & Output 12/16/22 12/17/22 12/17/22 18:59 06:59 18:59 Output Total 250 450 Balance -250 -450 Weight 83 kg Output: Urine 250 450 Other: Voiding Method External Catheter External Catheter External Catheter # Bowel Movements 1 - Exam Inspection: Negative for any significant erythema/ecchymosis/open wounds. Negative for any open fractures. Positive for scoliosis throughout spine. Sensation: Equal, symmetric, bilaterally intact throughout the upper and lower extremity exam. Palpation: moderate TTP throughout the lower thoracic spine at midline and in the upper lumbar spine at midline. There also is some fair amount of tenderness to palpation over the bilateral SI joints. NTTP throughout rest of exam Range of motion: Patient has full range of motion in bilateral upper extremities on exam. Patient does have some limited range of motion bilaterally in hip flexion/extension due to referred pain from the back. Patient does have some li mited range of motion in knees and flexion/extension due to; position in bed. She is able to fully extend the knees bilaterally while lying in bed. Patient has full range of motion in dorsi/plantar flexion bilaterally. Motor: 4/5 in all major motor groups in bilateral upper and lower extremities Neurovascular status: Radial pulse intact, 2+ bilaterally. Cap refill under 3 seconds in digits of upper extremities Special tests: Negative Homans bilaterally. Negative Anthony bilaterally. Ne gative clonus bilaterally. - Labs CBC & Chem 7: 12/17/22 06:12 12/17/22 06:12 Labs: Abnormal Lab Results - Last 24 Hours (Table) 12/16/22 12/16/22 12/16/22 Range/Units 07:41 10:56 16:48 RBC (3.80-5.40) m/uL Hgb (11.4-16.0) gm/dL Hct (34.0-46.0) % MCHC (31.0-37.0) g/dL Sodium (137-145) mmol/L Potassium (3.5-5.1) mmol/L BUN (7-17) mg/dL Creatinine (0.52-1.04) mg/dL Glucose 141 H (74-99) mg/dL POC Glucose (mg/dL) 54 L (70-110) mg/dL Hemoglobin A1c 7.2 H (<=6.0) % 12/16/22 12/16/22 12/16/22 Range/Units 17:10 21:07 22:59 RBC (3.80-5.40) m/uL Hgb (11.4-16.0) gm/dL Hct (34.0-46.0) % MCHC (31.0-37.0) g/dL Sodium (137-145) mmol/L Potassium (3.5-5.1) mmol/L BUN (7-17) mg/dL Creatinine (0.52-1.04) mg/dL Glucose (74-99) mg/dL POC Glucose (mg/dL) 68 L 130 H 166 H (70-110) mg/dL Hemoglobin A1c (<=6.0) % 12/17/22 12/17/22 12/17/22 Range/Units 01:04 02:43 05:16 RBC (3.80-5.40) m/uL Hgb (11.4-16.0) gm/dL Hct (34.0-46.0) % MCHC (31.0-37.0) g/dL Sodium (137-145) mmol/L Potassium (3.5-5.1) mmol/L BUN (7-17) mg/dL Creatinine (0.52-1.04) mg/dL Glucose (74-99) mg/dL POC Glucose (mg/dL) 166 H 151 H 188 H (70-110) mg/dL Hemoglobin A1c (<=6.0) % 12/17/22 12/17/22 12/17/22 Range/Units 06:12 06:12 06:51 RBC 3.30 L (3.80-5.40) m/uL Hgb 8.7 L D (11.4-16.0) gm/dL Hct 29.7 L (34.0-46.0) % MCHC 29.2 L (31.0-37.0) g/dL Sodium 132 L (137-145) mmol/L Potassium 5.8 H (3.5-5.1) mmol/L BUN 48 H (7-17) mg/dL Creatinine 3.93 H (0.52-1.04) mg/dL Glucose 173 H (74-99) mg/dL POC Glucose (mg/dL) 179 H (70-110) mg/dL Hemoglobin A1c (<=6.0) % Assessment and Plan Assessment: 1. Back pain; degenerative disc disease; T9-T11 neuroforaminal stenosis; DISH 2. Multiple medical comorbidities Plan: 1. Back pain; degenerative disc disease; T9-T11 neuroforaminal stenosis; DISH - patient stable at bedside this morning. CT of the thoracic spine negative for any fractures/spondylolisthesis. There is neuroforaminal stenosis from T9 through T11 and degenerative disc disease throughout the lower thoracic spine. patient does not present with any significant weakness on exam. Patient does have localized tenderness throughout lower thoracic spine and upper lumbar spine. Negative for any lower extremity paresthesias. Due to the patient's multiple medical comorbidities, we are not recommending any emergent orthopedic surgical intervention. MRI would be better for eval of neuroforaminal stenosis and ongoing back pain. patient does not want MRI at this time. I discussed with patient at bedside this morning the risk of not having MRI for evaluation of her spine. patient is aware and does not want MRI. Recommend conservative measures at this time via pain medication possible steroids. Recommend PT/OT daily. Do recommend patient to follow-up in the outpatient setting for further evaluation with Dr. Nieto for her thoracic and lumbar spine. Orthopedics is signing off at this time. Please do not hesitate to contact us for any further questions. 2. Appreciate medical, nephrology and cardio management 3. Pain management - Tylenol 4. DVT prophylaxis - aspirin 5. GI ppx - coalce; pepcid 6. PT/OT - WBAT w/walker and assistance 7. Encourage incentive spirometer use 8. Appreciate consult Time with Patient: Less than 30
[2022-12-17 10:01] LABS: Glucose,Whole Blood 136 mg/dL (70-110)
[2022-12-17] MEDS: DEXTROSE 10% IN WATER 500 ML in EMPTY BAG 1 BAG IV SCH (10:04)
[2022-12-17] MEDS: ACETAMINOPHEN TAB 325 MG TAB PO PRN (10:07)
[2022-12-17] MEDS: FUROSEMIDE 10 MG/ML 4 ML VIAL IV SCH (11:28)
[2022-12-17 11:39] LABS: Glucose,Whole Blood 177 mg/dL (70-110)
--- NOTE | 2022-12-17 12:20 | P.PN ---
Subjective HISTORY OF PRESENT ILLNESS: This is a 72-year-old female with a past medical history significant for right kidney disease with previous kidney transplant, diabetes, hypertension, hyperlipidemia, aortic insufficiency, and congestive heart failure. Patient follows in the office with Dr. Dr. Whyte. We have been asked to see the patient in consultation for congestive heart failure. Patient examined at the bedside in the emergency room. Patient presented to the hospital with a chief complaint of back pain. She states that pain is in the middle of her back. She denied having any chest pain or pressure. She denies having any shortness of breath. The patient does report worsening swelling in her legs. According to the patient's nurse, the patient accidentally stopped taking her Lasix instead of discontinuing her losartan. Orthopedics has been consulted to evaluate her back pain. The patient was also found to be in acute CHF and was started on IV Lasix. * EKG reveals sinus mechanism with T-wave inversions inferiorly * Chest xray opacities in the right lower lung, concerning for pneumonia. Opacities in the left mid and lower lung, concerning for atelectasis. * Laboratory data: WBC 10.7. Hemoglobin 9.4. Platelet count 189. Sodium 131. Potassium 5.5. BUN 45. Creatinine 3.72. Magnesium 1.2. Troponin 0.040. ProBNP 25,600. * Current home cardiac medications include Catapres 0.2 mg 3 times a day, carved ilol 25 mg twice a day, amlodipine 10 mg daily, Lasix 40 mg daily as needed, Lipitor 10 mg at night, aspirin 81 mg daily * Most recent echocardiogram obtained in August 2019 revealed normal ejection fra ction, mild MR, [id number] AR * Patient underwent Lexiscan stress test in February 2017 which was negative for ischemia 12/16/2022 Patient examined this afternoon at the bedside. Patients family present. Patient currently denies chest pain or pressure. She denies shortness of breath. She continues to have lower extremity edema. She is maintained on IV Lasix 40 mg every 12 hours. Renal function is stable at 3.8. Patient states her back pain is improved today and she is able to sit up during examination which she was unable to do yesterday. Vital signs are stable. 12/17/2022 Patient examined this morning at the bedside. Patient denies chest pain or pressure. She currently denies shortness of breath. She states she has been up ambulating to the bathroom. She states improvement in her back pain. She continues to have lower extremity edema, worse around her ankles. She remains on IV Lasix. Creatinine is stable today at 3.9. PHYSICAL EXAM: VITAL SIGNS: Reviewed. GENERAL: Well-developed in no acute distress. HEENT: Head is normocephalic. Pupils are equal, round. Sclerae anicteric. Mucous membranes of the mouth are moist. Neck supple. No JVD or thyromegaly LUNGS: Respirations even and unlabored. Lungs diminished bilaterally. HEART: Regular rate and rhythm. S1 and S2 heard. Systolic murmur noted ABDOMEN: Soft. Nondistended. Nontender. EXTREMITIES: Normal range of motion. No clubbing or cyanosis. Peripheral pulses intact. 2+ bilateral lower extremity edema NEUROLOGIC: Awake and alert. Oriented x 3. ASSESSMENT: Acute back pain Acute on chronic heart failure with preserved ejection fraction Acute on chronic kidney disease History of kidney transplant Hyperkalemia Abnormal troponin, not suggestive of acute coronary syndrome Hypertension Hyperlipidemia Diabetes Mild to moderate aortic regurgitation, per echo in 2019 PLAN: 2-D echo ordered. Await results Continue current cardiac medications Recommend continuing IV Lasix for an additional 24 hours Daily weights, accurate I&O, and monitoring of kidney function Further recommendations pending patient's course Nurse practitioner note has been reviewed by physician. Signing provider agrees with the documented findings, assessment, and plan of care. Objective - Vital Signs Vital signs: Vital Signs Temp 98.3 F 12/17/22 11:31 Pulse 65 12/17/22 11:31 Resp 16 12/17/22 11:31 BP 132/57 12/17/22 11:31 Pulse Ox 99 12/17/22 11:31 FiO2 21 12/15/22 09:10 Intake & Output 12/16/22 12/17/22 12/17/22 18:59 06:59 18:59 Intake Total 360 Output Total 250 450 Balance -250 -450 360 Weight 83 kg Intake: Oral 360 Output: Urine 250 450 Other: Voiding Method External Catheter External Catheter External Catheter # Bowel Movements 1 - Labs CBC & Chem 7: 12/17/22 06:12 12/17/22 06:12 Labs: Abnormal Lab Results - Last 24 Hours (Table) 12/16/22 12/16/22 12/16/22 Range/Units 16:48 17:10 21:07 RBC (3.80-5.40) m/uL Hgb (11.4-16.0) gm/dL Hct (34.0-46.0) % MCHC (31.0-37.0) g/dL Sodium (137-145) mmol/L Potassium (3.5-5.1) mmol/L BUN (7-17) mg/dL Creatinine (0.52-1.04) mg/dL Glucose (74-99) mg/dL POC Glucose (mg/dL) 54 L 68 L 130 H (70-110) mg/dL C-Reactive Protein (<1.0) mg/dL 12/16/22 12/17/22 12/17/22 Range/Units 22:59 01:04 02:43 RBC (3.80-5.40) m/uL Hgb (11.4-16.0) gm/dL Hct (34.0-46.0) % MCHC (31.0-37.0) g/dL Sodium (137-145) mmol/L Potassium (3.5-5.1) mmol/L BUN (7-17) mg/dL Creatinine (0.52-1.04) mg/dL Glucose (74-99) mg/dL POC Glucose (mg/dL) 166 H 166 H 151 H (70-110) mg/dL C-Reactive Protein (<1.0) mg/dL 12/17/22 12/17/22 12/17/22 Range/Units 05:16 06:12 06:12 RBC 3.30 L (3.80-5.40) m/uL Hgb 8.7 L D (11.4-16.0) gm/dL Hct 29.7 L (34.0-46.0) % MCHC 29.2 L (31.0-37.0) g/dL Sodium 132 L (137-145) mmol/L Potassium 5.8 H (3.5-5.1) mmol/L BUN 48 H (7-17) mg/dL Creatinine 3.93 H (0.52-1.04) mg/dL Glucose 173 H (74-99) mg/dL POC Glucose (mg/dL) 188 H (70-110) mg/dL C-Reactive Protein (<1.0) mg/dL 12/17/22 12/17/22 12/17/22 Range/Units 06:51 09:06 09:57 RBC (3.80-5.40) m/uL Hgb (11.4-16.0) gm/dL Hct (34.0-46.0) % MCHC (31.0-37.0) g/dL Sodium (137-145) mmol/L Potassium (3.5-5.1) mmol/L BUN (7-17) mg/dL Creatinine (0.52-1.04) mg/dL Glucose (74-99) mg/dL POC Glucose (mg/dL) 179 H 136 H (70-110) mg/dL C-Reactive Protein 6.0 H (<1.0) mg/dL 12/17/22 Range/Units 11:37 RBC (3.80-5.40) m/uL Hgb (11.4-16.0) gm/dL Hct (34.0-46.0) % MCHC (31.0-37.0) g/dL Sodium (137-145) mmol/L Potassium (3.5-5.1) mmol/L BUN (7-17) mg/dL Creatinine (0.52-1.04) mg/dL Glucose (74-99) mg/dL POC Glucose (mg/dL) 177 H (70-110) mg/dL C-Reactive Protein (<1.0) mg/dL
--- NOTE | 2022-12-17 12:21 | P.PN ---
Subjective Patient is seen in follow-up for acute allograft dysfunction and intercostal and management. Renal function slightly worse. Has been voiding. On IV Lasix. Denies chest pain or shortness of breath. On room air. Edema improved. Vital signs are stable. General: No acute distress. HEENT: Head exam is unremarkable. LUNGS: No audible rhonchi or wheezes. HEART: Rate and Rhythm are regular. ABDOMEN: Nontender. EXTREMITITES: 1+ edema. Objective - Vital Signs Vital signs: Vital Signs Temp 98.3 F 12/17/22 11:31 Pulse 65 12/17/22 11:31 Resp 16 12/17/22 11:31 BP 132/57 12/17/22 11:31 Pulse Ox 99 12/17/22 11:31 FiO2 21 12/15/22 09:10 Intake & Output 12/16/22 12/17/22 12/17/22 18:59 06:59 18:59 Intake Total 360 Output Total 250 450 Balance -250 -450 360 Weight 83 kg Intake: Oral 360 Output: Urine 250 450 Other: Voiding Method External Catheter External Catheter External Catheter # Bowel Movements 1 - Labs CBC & Chem 7: 12/17/22 06:12 12/17/22 06:12 Labs: Abnormal Lab Results - Last 24 Hours (Table) 12/16/22 12/16/22 12/16/22 Range/Units 16:48 17:10 21:07 RBC (3.80-5.40) m/uL Hgb (11.4-16.0) gm/dL Hct (34.0-46.0) % MCHC (31.0-37.0) g/dL Sodium (137-145) mmol/L Potassium (3.5-5.1) mmol/L BUN (7-17) mg/dL Creatinine (0.52-1.04) mg/dL Glucose (74-99) mg/dL POC Glucose (mg/dL) 54 L 68 L 130 H (70-110) mg/dL C-Reactive Protein (<1.0) mg/dL 12/16/22 12/17/22 12/17/22 Range/Units 22:59 01:04 02:43 RBC (3.80-5.40) m/uL Hgb (11.4-16.0) gm/dL Hct (34.0-46.0) % MCHC (31.0-37.0) g/dL Sodium (137-145) mmol/L Potassium (3.5-5.1) mmol/L BUN (7-17) mg/dL Creatinine (0.52-1.04) mg/dL Glucose (74-99) mg/dL POC Glucose (mg/dL) 166 H 166 H 151 H (70-110) mg/dL C-Reactive Protein (<1.0) mg/dL 12/17/22 12/17/22 12/17/22 Range/Units 05:16 06:12 06:12 RBC 3.30 L (3.80-5.40) m/uL Hgb 8.7 L D (11.4-16.0) gm/dL Hct 29.7 L (34.0-46.0) % MCHC 29.2 L (31.0-37.0) g/dL Sodium 132 L (137-145) mmol/L Potassium 5.8 H (3.5-5.1) mmol/L BUN 48 H (7-17) mg/dL Creatinine 3.93 H (0.52-1.04) mg/dL Glucose 173 H (74-99) mg/dL POC Glucose (mg/dL) 188 H (70-110) mg/dL C-Reactive Protein (<1.0) mg/dL 12/17/22 12/17/22 12/17/22 Range/Units 06:51 09:06 09:57 RBC (3.80-5.40) m/uL Hgb (11.4-16.0) gm/dL Hct (34.0-46.0) % MCHC (31.0-37.0) g/dL Sodium (137-145) mmol/L Potassium (3.5-5.1) mmol/L BUN (7-17) mg/dL Creatinine (0.52-1.04) mg/dL Glucose (74-99) mg/dL POC Glucose (mg/dL) 179 H 136 H (70-110) mg/dL C-Reactive Protein 6.0 H (<1.0) mg/dL 12/17/22 Range/Units 11:37 RBC (3.80-5.40) m/uL Hgb (11.4-16.0) gm/dL Hct (34.0-46.0) % MCHC (31.0-37.0) g/dL Sodium (137-145) mmol/L Potassium (3.5-5.1) mmol/L BUN (7-17) mg/dL Creatinine (0.52-1.04) mg/dL Glucose (74-99) mg/dL POC Glucose (mg/dL) 177 H (70-110) mg/dL C-Reactive Protein (<1.0) mg/dL Assessment and Plan Plan: Assessment: 1. 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 Creatinine fairly stable at 3.93 today. 2. Chronic kidney disease stage IV secondary to CNI use and solitary kidney as well as diabetic kidney disease and cardiorenal syndrome. Baseline creatinine 2-2.5. 3. Acute on chronic systolic CHF ejection fraction of 40-45% with mild to moderate mitral regurgitation and moderate tricuspid regurgitation. 4. Volume overload. Improved with diuresis. 5. Status post donor renal allograft in 2016. 6. Hypertension with chronic kidney disease. 7. Diabetes mellitus. 8. Chronic hyperkalemia maintained on Lokelma. 9. Hypomagnesemia from poor intake, diuretic and chronic CNI use. Replaced. Improved. 10. Back pain. Being followed by orthopedic surgery. ?OM. 11. Anemia of chronic kidney disease. He'll return deficiency. Plan: Stop IV Lasix. Add oral Lasix 40 mg once daily. Maintain home antirejection meds. Follow-up Prograf level. Avoid nephrotoxins. Continue to monitor renal function and urine output. Follow-up echocardiogram. Renal diet. Increase lokelma to bid. Repeat potassium level this evening. Check iron studies.
[2022-12-17] MEDS: FUROSEMIDE 40 MG TAB PO SCH (12:33)
[2022-12-17 15:52] LABS: % Iron Saturation 41.61 (12.00-45.00)
--- NOTE | 2022-12-17 15:52 | P.PN ---
Subjective Progress Note Date: 12/17/22 (delayed charting seen at 0930) Patient is a 72 yo F with a history of immunosuppression due to prior renal transplant, diabetes mellitus type 2 insulin requiring, hypertension, dyslipidem ia, and multiple other comorbid conditions who presented to the ER with complaints of confusion. Of note patient was hospitalized here from 620 through 627 with severe sepsis related to community versus aspiration pneumonia. She was discharged home on Ceftin. On arrival to the ER her vitals were remarkable for a blood pressure of 164/102. Laboratory analysis was remarkable for white blood cell count 10.7, hemoglobin 9.4, sodium 1:30, potassium 5.3, BUN 49, creatinine 3.69, and troponin 0.040 with a BNP of 25,600. She underwent a head CT which showed no acute process. Lumbar spine CT showed multiple endplate irregularities with possible component of discitis/osteomyelitis not able to be excluded. Chest x-ray showed opacities in the right lower lung and left mid and lower lung concerning for atelectasis versus pneumonia. She was admitted for further monitoring. She was started on diuretics. Her ARB was held. Nephrology and cardiology were consulted. She was noted to have worsening low back pain and orthopedic spine surgery was consulted, consideration was made for possible osteomyelitis but this was ruled out with decreasing inflammatory markers, patient did not want MRI. Her renal function worsened and medication adjustments were made. She did have an episode of hypoglycemia related to her Levemir dosing. Patient seen and examined at bedside. She continues to complain of some low back pain. She adamantly does not want MRI of the low back due to claustrophobia. I discussed with her that we have a hollow bore MRI in her head likely would not need to be close to any instrumentation. She also refuses flu water open MRI and states it is not truly an open MRI. She states she will leave AMA of MRI is ordered. I discussed with her that we can monitor her lab oratory markers for now. She denies any chest pain or shortness of breath. Vital signs reviewed General: nontoxic, no distress, appears at stated age Cardiovascular: S1S2 reg, no murmur, positive posterior tibial pulse bilateral, Lungs: Decreased breath sounds bilateral, no rhonchi, no rales , no accessory muscle use Abdominal: soft, nontender to palpation, no guarding, no appreciable organom egaly Ext: no gross muscle atrophy, 2+ edema b/l lower extremities, no contractures Neuro: CN II-XI grossly intact, no focal neuro deficits Psych: Alert, oriented, appropriate affect Assessment/plan: Acute on chronic systolic congestive heart failure with ejection fraction 40-45% with severe pulmonary hypertension on echo 11/25/2022 Hypertension Elevated troponin - cardio note reviewed, await echo, IV lasix for another 24 hours. -Aspirin 81 mg daily, Lipitor 10 mg at night, Coreg 25 mg twice daily, Catapres 0.2 mg 3 times daily, Lasix 40 mg daily -Troponin significantly decreased from 11/04/22 and is likely related to resolving troponin anemia from prior non-ST segment elevated myocardial infarction. Acute kidney injury on chronic kidney disease stage IV secondary to ATN Hyperkalemia, chronic Immunosuppressive history of renal transplant -Lo, 10 mg daily -Nephrology note reviewed: Await profraf level, lasix, await echo, increase lokalemia to BID Acute on chronic low back pain -ESR and CRP were repeated. CRP is down to 6 from 15, ESR mildly elevated from 45-52. Patient does not want MRI of INR location due to what sounds like severe claustrophobia. Patient is afebrile without a white blood cell count and has had improvement in her inflammatory markers to antibiotic therapy. At this point in time appears stable for outpatient follow-up with Dr. Nieto. Case discussed with orthopedic surgery PA. Diabetes mellitus type 2 insulin requiring with hypoglycemia -Resume Levemir 10 units this evening, sliding scale insulin, follow blood sugars every before meals and at bedtime -Patient was never started on D10 drip and she did not have IV access on 12/16/22 Toxic metabolic encephalopathy, resolved Imaging: none new Data Review: Vitals reviewed temperature 98.4, pulse 66, respirations 16, blood pressure 119/65, O2 sat 98% on room air Labs reviewed White blood cell count 7.2, hemoglobin 8.7, sodium 132, potassium 5.8, creatinine 3.93, BUN 48, blood sugar 177, A1c 6.2. -ESR and CRP ordered ESR 52, CRP 6 down from 15.4 DVT prophylaxis: Heparin Anticipated discharge date: Pending clinical course Anticipated discharge place: Pending clinical course This dictation was prepared using [employer] voice recognition software. Though every attempt is made to correct errors during dictation some may still exist. Objective - Vital Signs Vital signs: Vital Signs Temp 98.0 F 12/17/22 15:11 Pulse 68 12/17/22 15:11 Resp 16 12/17/22 15:11 BP 127/71 12/17/22 15:11 Pulse Ox 100 12/17/22 15:11 FiO2 21 12/15/22 09:10 Intake & Output 12/16/22 12/17/22 12/17/22 18:59 06:59 18:59 Intake Total 600 Output Total 250 450 Balance -250 -450 600 Weight 83 kg 83 kg Intake: Oral 600 Output: Urine 250 450 Other: Voiding Method External Catheter External Catheter External Catheter # Bowel Movements 1 - Labs CBC & Chem 7: 12/17/22 06:12 12/17/22 06:12 Labs: Abnormal Lab Results - Last 24 Hours (Table) 12/16/22 12/16/22 12/16/22 Range/Units 16:48 17:10 21:07 RBC (3.80-5.40) m/uL Hgb (11.4-16.0) gm/dL Hct (34.0-46.0) % MCHC (31.0-37.0) g/dL ESR (0-20) mm/hr Sodium (137-145) mmol/L Potassium (3.5-5.1) mmol/L BUN (7-17) mg/dL Creatinine (0.52-1.04) mg/dL Glucose (74-99) mg/dL POC Glucose (mg/dL) 54 L 68 L 130 H (70-110) mg/dL C-Reactive Protein (<1.0) mg/dL 12/16/22 12/17/22 12/17/22 Range/Units 22:59 01:04 02:43 RBC (3.80-5.40) m/uL Hgb (11.4-16.0) gm/dL Hct (34.0-46.0) % MCHC (31.0-37.0) g/dL ESR (0-20) mm/hr Sodium (137-145) mmol/L Potassium (3.5-5.1) mmol/L BUN (7-17) mg/dL Creatinine (0.52-1.04) mg/dL Glucose (74-99) mg/dL POC Glucose (mg/dL) 166 H 166 H 151 H (70-110) mg/dL C-Reactive Protein (<1.0) mg/dL 12/17/22 12/17/22 12/17/22 Range/Units 05:16 06:12 06:12 RBC 3.30 L (3.80-5.40) m/uL Hgb 8.7 L D (11.4-16.0) gm/dL Hct 29.7 L (34.0-46.0) % MCHC 29.2 L (31.0-37.0) g/dL ESR (0-20) mm/hr Sodium 132 L (137-145) mmol/L Potassium 5.8 H (3.5-5.1) mmol/L BUN 48 H (7-17) mg/dL Creatinine 3.93 H (0.52-1.04) mg/dL Glucose 173 H (74-99) mg/dL POC Glucose (mg/dL) 188 H (70-110) mg/dL C-Reactive Protein (<1.0) mg/dL 12/17/22 12/17/22 12/17/22 Range/Units 06:51 09:06 09:57 RBC (3.80-5.40) m/uL Hgb (11.4-16.0) gm/dL Hct (34.0-46.0) % MCHC (31.0-37.0) g/dL ESR (0-20) mm/hr Sodium (137-145) mmol/L Potassium (3.5-5.1) mmol/L BUN (7-17) mg/dL Creatinine (0.52-1.04) mg/dL Glucose (74-99) mg/dL POC Glucose (mg/dL) 179 H 136 H (70-110) mg/dL C-Reactive Protein 6.0 H (<1.0) mg/dL 12/17/22 12/17/22 Range/Units 10:50 11:37 RBC (3.80-5.40) m/uL Hgb (11.4-16.0) gm/dL Hct (34.0-46.0) % MCHC (31.0-37.0) g/dL ESR 52 H (0-20) mm/hr Sodium (137-145) mmol/L Potassium (3.5-5.1) mmol/L BUN (7-17) mg/dL Creatinine (0.52-1.04) mg/dL Glucose (74-99) mg/dL POC Glucose (mg/dL) 177 H (70-110) mg/dL C-Reactive Protein (<1.0) mg/dL
[2022-12-17 16:43] LABS: Glucose,Whole Blood 180 mg/dL (70-110)
--- NOTE | 2022-12-17 18:01 | CA ---
Transthoracic Echo Report Name: Mary Barrientos Age: 72 Gender: F : 1950 Exam Date: 12/17/2022 08:54 Exam Location: [facility] Ht (in): 63 Wt (lb): 184 Ordering Physician: Bharati Gagnon Attending/Referring Phys: [id number], Kalin Pre Coder Stephanie Chadwick [facility] Procedure CPT: Indications: LV function, CHF Cardiac Hx: Technical Quality: Fair Contrast 1: Total Dose (mL): Contrast 2: Total Dose (mL): MEASUREMENTS (Male / Female) Normal Values 2D ECHO LV Diastolic Diameter PLAX 4.3 cm 4.2 - 5.9 / 3.9 - 5.3 cm LV Systolic Diameter PLAX 3.2 cm IVS Diastolic Thickness 1.2 cm 0.6 - 1.0 / 0.6 - 0.9 cm LVPW Diastolic Thickness 1.0 cm 0.6 - 1.0 / 0.6 - 0.9 cm LV Relative Wall Thickness 0.5 LV Diastolic Volume MOD BP 85.7 cm??? 67 - 155 / 56 - 104 cm??? LV Systolic Volume MOD BP 42.4 cm??? 22 - 58 / 19 - 49 cm??? LV Ejection Fraction MOD BP 50.5 % >= 55 % LV Cardiac Index MOD BP 1437.2 cm???/min???m??? LV Diastolic Volume MOD 4C 89.1 cm??? LV Systolic Volume MOD 4C 41.0 cm??? LV Ejection Fraction MOD 4C 54.0 % LV Cardiac Index MOD 4C 1595.8 cm???/min???m??? LV Diastolic Length 4C 7.6 cm LV Systolic Length 4C 6.6 cm LV Diastolic Volume MOD 2C 79.0 cm??? LV Systolic Volume MOD 2C 43.2 cm??? LV Ejection Fraction MOD 2C 45.3 % LV Cardiac Index MOD 2C 1188.9 cm???/min???m??? LV Diastolic Length 2C 8.0 cm LV Systolic Length 2C 6.8 cm DOPPLER MV Peak Velocity 178.4 cm/s MV Peak Gradient 12.7 mmHg MV Mean Velocity 106.9 cm/s MV Mean Gradient 5.1 mmHg MV Velocity Time Integral 42.9 cm MV Area PHT 2.3 cm??? Mitral E Point Velocity 96.5 cm/s Mitral A Point Velocity 160.8 cm/s Mitral E to A Ratio 0.6 MV Deceleration Time 407.3 ms LV E' Lateral Velocity 4.9 cm/s Mitral E to LV E' Lateral Ratio 19.5 LV E' Septal Velocity 2.6 cm/s Mitral E to LV E' Septal Ratio 36.7 Right Atrial Pressure 8.0 mmHg FINDINGS Left Ventricle Mildly increased left ventricular wall thickness. Left ventricular cavity size normal. Left ventricular ejection fraction is estimated at 45-50%. Mildly reduced global left ventricular systolic function. Right Ventricle Normal right ventricular size and function. Right Atrium Left Atrium Mitral Valve Aortic Valve Tricuspid Valve Pulmonic Valve Pericardium Aorta CONCLUSIONS Mild diffuse global hypokinesis with mild LV dysfunction with an ejection fraction of 45% Previewed by: Clinton Womack MD Dr. Suresh Tumma MD (Electronically Signed) Final Date: 17 December 2022 18:00
[2022-12-17 19:40] LABS: Glucose,Whole Blood 198 mg/dL (70-110)
[2022-12-17] MEDS: ATORVASTATIN 10 MG TAB PO SCH (20:22)
[2022-12-17] MEDS ORDERED: INSULIN DETEMIR (LEVEMIR) 100 UNIT/ML SYR SQ SCH (21:00)
[2022-12-18] MEDS: HEPARIN SODIUM,PORCINE/PF 5,000 UNIT/0.5 ML SYRINGE SQ SCH ×4 (00:06→23:13)
[2022-12-18 02:16] LABS: Glucose,Whole Blood 122 mg/dL (70-110)
[2022-12-18 05:41] LABS: Glucose,Whole Blood 71 mg/dL (70-110)
[2022-12-18] MEDS: INSULIN ASPART (NovoLOG) 100 UNIT/ML VIAL SQ SCH ×4 (05:45→20:35)
[2022-12-18 08:33] LABS: HCT 32.1 % (34.0-46.0); HGB 9.6 gm/dL (11.4-16.0); Hypochromasia Marked; MCH 27.6 pg (25.0-35.0); Mean Platelet Volume 8.8; Platelet Count 223 k/uL (150-450); RBC 3.49 m/uL (3.80-5.40); RDW 14.2 % (11.5-15.5)
[2022-12-18 08:51] LABS: African American GFR (CKD) 11 (>60 ml/min/1.73 sqM); Anion Gap 8 mmol/L; Blood Urea Nitrogen 47 mg/dL (7-17); Calcium 8.9 mg/dL (8.4-10.2); Carbon Dioxide 27 mmol/L (22-30); Chloride 99 mmol/L (98-107); Glucose 83 mg/dL (74-99); Magnesium 1.8 mg/dL (1.6-2.3); Non-African American GFR(CKD) 10 (>60 ml/min/1.73 sqM); Potassium 4.9 mmol/L (3.5-5.1); Sodium 134 mmol/L (137-145)
[2022-12-18] MEDS: SODIUM BICARBONATE TAB 650 MG TAB PO SCH ×3 (09:06→20:37)
[2022-12-18] MEDS: carvediloL 12.5 MG TAB PO SCH ×2 (09:06→20:37)
[2022-12-18] MEDS: SODIUM ZIRCONIUM CYCLOSILICATE 10 GM PACKET PO SCH ×2 (09:06→20:36)
[2022-12-18] MEDS: FAMOTIDINE 20 MG TAB PO SCH (09:07)
[2022-12-18] MEDS: THIAMINE 100 MG TAB PO SCH ×2 (09:07→20:36)
[2022-12-18] MEDS: TACROLIMUS 1 MG CAP PO SCH (09:07)
[2022-12-18] MEDS: FUROSEMIDE 40 MG TAB PO SCH (09:07)
[2022-12-18] MEDS: ASPIRIN 81 MG PO SCH (09:07)
[2022-12-18] MEDS: amLODIPine 10 MG TAB PO SCH (09:07)
[2022-12-18] MEDS: predniSONE 5 MG TAB PO SCH (09:07)
[2022-12-18] MEDS: MYCOPHENOLATE SODIUM DR 180 MG TABLET.DR PO SCH ×2 (09:08→20:37)
[2022-12-18] MEDS: cloNIDine HCL 0.2 MG TAB PO SCH ×3 (09:08→20:37)
[2022-12-18] MEDS: ALBUTEROL NEBULIZED 2.5 MG/3 ML INHALATION SCH (09:41)
--- NOTE | 2022-12-18 09:47 | P.PN ---
Subjective Progress Note Date: 12/18/22 Patient is a 72 yo F with a history of immunosuppression due to prior renal transplant, diabetes mellitus type 2 insulin requiring, hypertension, dyslipidemia, and multiple other comorbid conditions who presented to the ER with complaints of confusion. Of note patient was hospitalized here from 620 through 627 with severe sepsis related to community versus aspiration pneumonia. She was discharged home on Ceftin. On arrival to the ER her vitals were remarkable for a blood pressure of 164/102. Laboratory analysis was remarkable for white blood cell count 10.7, hemoglobin 9.4, sodium 1:30, potassium 5.3, BUN 49, creatinine 3.69, and troponin 0.040 with a BNP of 25,600. She underwent a head CT which showed no acute process. Lumbar spine CT showed multiple endplate irregularities with possible component of discitis/osteomyelitis not able to be excluded. Chest x-ray showed opacities in the right lower lung and left mid and lower lung concerning for atelectasis versus pneumonia. She was admitted for further monitoring. She was started on diuretics. Her ARB was held. Ne phrology and cardiology were consulted. She was noted to have worsening low back pain and orthopedic spine surgery was consulted, consideration was made for possible osteomyelitis but this was ruled out with decreasing inflammatory markers, patient did not want MRI. Her renal function worsened and medication adjustments were made. She did have an episode of hypoglycemia related to her Levemir dosing. His improved with decreased dosing. Patient seen and examined at bedside. She initially had no complaints. When asked further detail she does state she has bilateral heel pain when walking. Denies any nausea, vomiting, shortness of breath. She sees Dr. Crowley for podiatry. Vital signs reviewed General: nontoxic, no distress, appears at stated age Derm: b/l heals with thickened skin and bogginess. Cardiovascular: S1S2 reg, no murmur, positive posterior tibial pulse bilateral, Lungs: Decreased breath sounds bilateral, no rhonchi, no rales , no accessory muscle use Abdominal: soft, nontender to palpation, no guarding, no appreciable organomegaly Ext: no gross muscle atrophy, 1+ edema b/l lower extremities, no contractures Neuro: CN II-XI grossly intact, no focal neuro deficits Psych: Alert, oriented, appropriate affect Assessment/plan: Acute on chronic systolic congestive heart failure with ejection fraction 40-45% with severe pulmonary hypertension on echo 11/25/2022 Hypertension Elevated troponin - cardio note reviewed, await echo, IV lasix for another 24 hours. -Aspirin 81 mg daily, Lipitor 10 mg at night, Coreg 25 mg twice daily, Catapres 0.2 mg 3 times daily, Lasix 40 mg daily -Troponin significantly decreased from 11/04/22 and is likely related to resolving troponinemia from prior non-ST segment elevated myocardial infarction. Acute kidney injury on chronic kidney disease stage IV secondary to ATN Hyperkalemia, chronic Immunosuppressive history of renal transplant -Lokelma 10 mg BID - Sodium bicarb 1300 mg TID -Await further nephrology recs - Lasix 40 mg daily Bilateral heel pain -Suspect due to callus formation. Left start Lac-Hydrin cream. We will also check x-ray right foot and ankle given bogginess of right heel Acute on chronic low back pain -ESR and CRP were repeated. CRP is down to 6 from 15, ESR mildly elevated from 45-52. Patient does not want MRI at our location due to what sounds like severe claustrophobia. Patient is afebrile without a white blood cell count and has had improvement in her inflammatory markers without antibiotic therapy. At this point in time she appears stable for outpatient follow-up with Dr. Nieto. Diabetes mellitus type 2 insulin requiring Hypoglycemia, resolved -Decrease Levemir to 8 units this evening, sliding scale insulin, follow blood sugars every before meals and at bedtime Toxic metabolic encephalopathy, resolved Imaging: none new Data Review: Vitals reviewed. Temperature 98.6 pulse 66, respirations 16, blood pressure 145/67, O2 sat 100% on room air Laboratory analysis remarkable for hemoglobin 9.6, sodium 134, BUN 47, creatinine 4.23, a.m. glucose 71 Tacrolimus level 17.2 DVT prophylaxis: Heparin Anticipated discharge date: Pending clinical course Anticipated discharge place: Pending clinical course This dictation was prepared using [employer] voice recognition software. Though every attempt is made to correct errors during dictation some may still exist. Objective - Vital Signs Vital signs: Vital Signs Temp 98.6 F 12/18/22 08:00 Pulse 66 12/18/22 08:00 Resp 16 12/18/22 08:00 BP 145/67 12/18/22 08:00 Pulse Ox 100 12/18/22 08:00 FiO2 21 12/15/22 09:10 Intake & Output 12/17/22 12/18/22 12/18/22 18:59 06:59 18:59 Intake Total 838 10 Output Total 600 Balance 838 -590 Weight 83 kg 82 kg Intake: IV 10 Invasive Line 3 10 Oral 838 Output: Urine 600 Other: Voiding Method External Catheter External Catheter # Voids 1 # Bowel Movements 1 - Labs CBC & Chem 7: 12/18/22 08:15 12/18/22 08:15 Labs: Abnormal Lab Results - Last 24 Hours (Table) 12/17/22 12/17/22 12/17/22 Range/Units 09:06 09:06 09:57 RBC (3.80-5.40) m/uL Hgb (11.4-16.0) gm/dL Hct (34.0-46.0) % MCHC (31.0-37.0) g/dL ESR (0-20) mm/hr Sodium (137-145) mmol/L Potassium (3.5-5.1) mmol/L BUN (7-17) mg/dL Creatinine (0.52-1.04) mg/dL POC Glucose (mg/dL) 136 H (70-110) mg/dL TIBC 137 L (228-460) UG/DL Transferrin 97.8 L (204.0-354.0) mg/dL Ferritin 3468.0 H (10.0-291.0) ng/mL C-Reactive Protein 6.0 H (<1.0) mg/dL 12/17/22 12/17/22 12/17/22 Range/Units 10:50 11:37 16:36 RBC (3.80-5.40) m/uL Hgb (11.4-16.0) gm/dL Hct (34.0-46.0) % MCHC (31.0-37.0) g/dL ESR 52 H (0-20) mm/hr Sodium (137-145) mmol/L Potassium 5.4 H (3.5-5.1) mmol/L BUN (7-17) mg/dL Creatinine (0.52-1.04) mg/dL POC Glucose (mg/dL) 177 H (70-110) mg/dL TIBC (228-460) UG/DL Transferrin (204.0-354.0) mg/dL Ferritin (10.0-291.0) ng/mL C-Reactive Protein (<1.0) mg/dL 12/17/22 12/17/22 12/18/22 Range/Units 16:39 19:36 02:12 RBC (3.80-5.40) m/uL Hgb (11.4-16.0) gm/dL Hct (34.0-46.0) % MCHC (31.0-37.0) g/dL ESR (0-20) mm/hr Sodium (137-145) mmol/L Potassium (3.5-5.1) mmol/L BUN (7-17) mg/dL Creatinine (0.52-1.04) mg/dL POC Glucose (mg/dL) 180 H 198 H 122 H (70-110) mg/dL TIBC (228-460) UG/DL Transferrin (204.0-354.0) mg/dL Ferritin (10.0-291.0) ng/mL C-Reactive Protein (<1.0) mg/dL 12/18/22 12/18/22 Range/Units 08:15 08:15 RBC 3.49 L (3.80-5.40) m/uL Hgb 9.6 L (11.4-16.0) gm/dL Hct 32.1 L (34.0-46.0) % MCHC 30.0 L (31.0-37.0) g/dL ESR (0-20) mm/hr Sodium 134 L (137-145) mmol/L Potassium (3.5-5.1) mmol/L BUN 47 H (7-17) mg/dL Creatinine 4.23 H (0.52-1.04) mg/dL POC Glucose (mg/dL) (70-110) mg/dL TIBC (228-460) UG/DL Transferrin (204.0-354.0) mg/dL Ferritin (10.0-291.0) ng/mL C-Reactive Protein (<1.0) mg/dL
--- NOTE | 2022-12-18 10:32 | P.PN ---
Subjective Patient is seen in follow-up for acute allograft dysfunction and renal transplant management. Renal function worsening with diuresis. Has been voi ding. On po Lasix. Denies chest pain or shortness of breath. On room air. Edema improved. Vital signs are stable. General: No acute distress. HEENT: Head exam is unremarkable. LUNGS: No audible rhonchi or wheezes. HEART: Rate and Rhythm are regular. ABDOMEN: Nontender. EXTREMITITES: 1+ edema. Objective - Vital Signs Vital signs: Vital Signs Temp 98.6 F 12/18/22 08:00 Pulse 66 12/18/22 08:00 Resp 16 12/18/22 08:00 BP 145/67 12/18/22 08:00 Pulse Ox 100 12/18/22 08:00 FiO2 21 12/15/22 09:10 Intake & Output 12/17/22 12/18/22 12/18/22 18:59 06:59 18:59 Intake Total 838 10 Output Total 600 Balance 838 -590 Weight 83 kg 82 kg Intake: IV 10 Invasive Line 3 10 Oral 838 Output: Urine 600 Other: Voiding Method External Catheter External Catheter External Catheter # Voids 1 # Bowel Movements 1 - Labs CBC & Chem 7: 12/18/22 08:15 12/18/22 08:15 Labs: Abnormal Lab Results - Last 24 Hours (Table) 12/17/22 12/17/22 12/17/22 Range/Units 09:06 10:50 11:37 RBC (3.80-5.40) m/uL Hgb (11.4-16.0) gm/dL Hct (34.0-46.0) % MCHC (31.0-37.0) g/dL ESR 52 H (0-20) mm/hr Sodium (137-145) mmol/L Potassium (3.5-5.1) mmol/L BUN (7-17) mg/dL Creatinine (0.52-1.04) mg/dL POC Glucose (mg/dL) 177 H (70-110) mg/dL TIBC 137 L (228-460) UG/DL Transferrin 97.8 L (204.0-354.0) mg/dL Ferritin 3468.0 H (10.0-291.0) ng/mL 12/17/22 12/17/22 12/17/22 Range/Units 16:36 16:39 19:36 RBC (3.80-5.40) m/uL Hgb (11.4-16.0) gm/dL Hct (34.0-46.0) % MCHC (31.0-37.0) g/dL ESR (0-20) mm/hr Sodium (137-145) mmol/L Potassium 5.4 H (3.5-5.1) mmol/L BUN (7-17) mg/dL Creatinine (0.52-1.04) mg/dL POC Glucose (mg/dL) 180 H 198 H (70-110) mg/dL TIBC (228-460) UG/DL Transferrin (204.0-354.0) mg/dL Ferritin (10.0-291.0) ng/mL 12/18/22 12/18/22 12/18/22 Range/Units 02:12 08:15 08:15 RBC 3.49 L (3.80-5.40) m/uL Hgb 9.6 L (11.4-16.0) gm/dL Hct 32.1 L (34.0-46.0) % MCHC 30.0 L (31.0-37.0) g/dL ESR (0-20) mm/hr Sodium 134 L (137-145) mmol/L Potassium (3.5-5.1) mmol/L BUN 47 H (7-17) mg/dL Creatinine 4.23 H (0.52-1.04) mg/dL POC Glucose (mg/dL) 122 H (70-110) mg/dL TIBC (228-460) UG/DL Transferrin (204.0-354.0) mg/dL Ferritin (10.0-291.0) ng/mL Assessment and Plan Plan: Assessment: 1. 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 ?progfaf toxicity. Renal function worsening with diuresis. Creatinine 4.23 today. 2. Chronic kidney disease stage IV secondary to CNI use and solitary kidney as well as diabetic kidney disease and cardiorenal syndrome. Baseline creatinine 2-2.5. 3. Acute on chronic systolic CHF ejection fraction of 40-45% with mild to moderate mitral regurgitation and moderate tricuspid regurgitation. 4. Volume overload. Improved with diuresis. 5. Status post donor renal allograft in 2016. 6. Hypertension with chronic kidney disease. 7. Diabetes mellitus. 8. Chronic hyperkalemia maintained on Lokelma. 9. Hypomagnesemia from poor intake, diuretic and chronic CNI use. Replaced. Improved. 10. Back pain. Being followed by orthopedic surgery. ?OM. 11. Anemia of chronic kidney disease. Iron replete. Plan: Maintain oral Lasix. Tacrolimus level 17.2 dated 12/16/2022. Hold tacrolimus today. Resume tomorrow at lower dose. Avoid nephrotoxins. Continue to monitor renal function and urine output. Maintain lokelma. Renal diet. Add aranesp. No urgent need for renal replacement therapy at this time.
[2022-12-18] MEDS ORDERED: DARBEPOETIN ALFA 40 MCG/0.4 ML SYRINGE SQ SCH (11:00)
--- NOTE | 2022-12-18 11:21 | XR ---
EXAMINATION TYPE: XR ankle complete RT, XR foot complete RT DATE OF EXAM: 12/18/2022 11:13 AM INDICATION: Patient age:Female; 72 years old; Reason for study: pain and bogginess; COMPARISON: None TECHNIQUE: The foot and ankle were imaged in frontal, lateral and oblique projections. FINDINGS: Diffuse osseous demineralization. There is diffuse soft tissue swelling with pitting edema. No evidence of fracture. There is multifocal degeneration changes throughout the visualized joints o f the ankle and foot. Severe atherosclerosis of the arterial vasculature. Calcaneal plantar spurring is present. IMPRESSION: 1. No evidence of acute fracture. 2. Subcutaneous swelling somewhat diffusely with pitting edema.
[2022-12-18 11:35] LABS: Glucose,Whole Blood 148 mg/dL (70-110)
--- NOTE | 2022-12-18 12:54 | P.PN ---
Subjective Progress Note Date: 12/18/22 PROGRESS NOTE The patient is a 72-year-old female with a known history of hypertension, hyperlipidemia, post renal transplant who presented with chest discomfort and symptoms of dyspnea. She's feeling better at this time her chest and back discomfort have resolved. She was without her diuretics prior to admission. Her peripheral edema is better. She denies any nausea or vomiting. She has mildly impaired systolic function by echocardiography. Medications: Amlodipine 10 mg daily, aspirin once a day, Lipitor 10 mg daily, Coreg 25 mg twice a day, clonidine 0.2 mg 3 times a day, Lasix 40 mg daily, insulin, prednisone, thiamine PHYSICAL EXAMINATION: Blood pressure 123/65 heart rate 68 LUNGS: Clear to auscultation HEART: Regular rate and rhythm, S1, S2. No S3. Systolic ejection murmur 3/6 with 1/6 diastolic murmur ABDOMEN: Soft, nontender, no organomegaly EXTREMETIES: Trace edema LAB: Hemoglobin 9.6, BUN 47, creatinine 4.23 IMPRESSION: 1. Exacerbation of CHF, patient was not on diuretics on admission, improved 2. Back discomfort improved 3. Status post renal transplant 4. History of hypertension 5. History of aortic regurgitation 6. History of hyperlipidemia PLAN: 1. Continue present therapy 2. Increase physical activity 3. Follow her renal functions 4. Depending on her progress further recommendations will be made Objective - Vital Signs Vital signs: Vital Signs Temp 98.6 F 12/18/22 11:35 Pulse 68 12/18/22 11:35 Resp 16 12/18/22 11:35 BP 123/65 12/18/22 11:35 Pulse Ox 99 12/18/22 11:35 FiO2 21 12/15/22 09:10 Intake & Output 12/17/22 12/18/22 12/18/22 18:59 06:59 18:59 Intake Total 858 10 Output Total 600 Balance 858 -590 Weight 83 kg 82 kg Intake: IV 20 10 Invasive Line 3 20 10 Oral 838 Output: Urine 600 Other: Voiding Method External Catheter External Catheter External Catheter # Voids 1 # Bowel Movements 1 - Labs CBC & Chem 7: 12/18/22 08:15 12/18/22 08:15 Labs: Abnormal Lab Results - Last 24 Hours (Table) 12/17/22 12/17/22 12/17/22 Range/Units 09:06 10:50 16:36 RBC (3.80-5.40) m/uL Hgb (11.4-16.0) gm/dL Hct (34.0-46.0) % MCHC (31.0-37.0) g/dL ESR 52 H (0-20) mm/hr Sodium (137-145) mmol/L Potassium 5.4 H (3.5-5.1) mmol/L BUN (7-17) mg/dL Creatinine (0.52-1.04) mg/dL POC Glucose (mg/dL) (70-110) mg/dL TIBC 137 L (228-460) UG/DL Transferrin 97.8 L (204.0-354.0) mg/dL Ferritin 3468.0 H (10.0-291.0) ng/mL 12/17/22 12/17/22 12/18/22 Range/Units 16:39 19:36 02:12 RBC (3.80-5.40) m/uL Hgb (11.4-16.0) gm/dL Hct (34.0-46.0) % MCHC (31.0-37.0) g/dL ESR (0-20) mm/hr Sodium (137-145) mmol/L Potassium (3.5-5.1) mmol/L BUN (7-17) mg/dL Creatinine (0.52-1.04) mg/dL POC Glucose (mg/dL) 180 H 198 H 122 H (70-110) mg/dL TIBC (228-460) UG/DL Transferrin (204.0-354.0) mg/dL Ferritin (10.0-291.0) ng/mL 12/18/22 12/18/22 12/18/22 Range/Units 08:15 08:15 11:33 RBC 3.49 L (3.80-5.40) m/uL Hgb 9.6 L (11.4-16.0) gm/dL Hct 32.1 L (34.0-46.0) % MCHC 30.0 L (31.0-37.0) g/dL ESR (0-20) mm/hr Sodium 134 L (137-145) mmol/L Potassium (3.5-5.1) mmol/L BUN 47 H (7-17) mg/dL Creatinine 4.23 H (0.52-1.04) mg/dL POC Glucose (mg/dL) 148 H (70-110) mg/dL TIBC (228-460) UG/DL Transferrin (204.0-354.0) mg/dL Ferritin (10.0-291.0) ng/mL
[2022-12-18 16:16] LABS: Glucose,Whole Blood 231 mg/dL (70-110)
[2022-12-18] MEDS: AMMONIUM LACTATE 12% LOTION 225 GM BTL TOPICAL SCH ×2 (16:34→20:58)
[2022-12-18 20:09] LABS: Glucose,Whole Blood 258 mg/dL (70-110)
[2022-12-18] MEDS: INSULIN DETEMIR (LEVEMIR) 100 UNIT/ML SYR SQ SCH (20:35)
[2022-12-18] MEDS: ATORVASTATIN 10 MG TAB PO SCH (20:36)
[2022-12-19 03:25] LABS: Glucose,Whole Blood 140 mg/dL (70-110)
[2022-12-19 06:10] LABS: Glucose,Whole Blood 104 mg/dL (70-110)
[2022-12-19] MEDS: INSULIN ASPART (NovoLOG) 100 UNIT/ML VIAL SQ SCH ×6 (06:10→21:31)
[2022-12-19 08:02] LABS: HCT 29.8 % (34.0-46.0); Hypochromasia Marked; MCH 27.7 pg (25.0-35.0); MCHC 30.2 g/dL (31.0-37.0); MCV 91.7 fL (80.0-100.0); Mean Platelet Volume 8.4; Platelet Count 197 k/uL (150-450); RBC 3.25 m/uL (3.80-5.40); RDW 14.3 % (11.5-15.5); WBC 7.2 k/uL (3.8-10.6)
[2022-12-19 08:33] LABS: African American GFR (CKD) 11 (>60 ml/min/1.73 sqM); Anion Gap 6 mmol/L; Blood Urea Nitrogen 50 mg/dL (7-17); Calcium 8.9 mg/dL (8.4-10.2); Carbon Dioxide 27 mmol/L (22-30); Chloride 102 mmol/L (98-107); Glucose 91 mg/dL (74-99); Magnesium 1.7 mg/dL (1.6-2.3); Non-African American GFR(CKD) 10 (>60 ml/min/1.73 sqM); Potassium 5.1 mmol/L (3.5-5.1); Sodium 135 mmol/L (137-145)
[2022-12-19] MEDS: ALBUTEROL NEBULIZED 2.5 MG/3 ML INHALATION SCH (09:10)
[2022-12-19] MEDS: HEPARIN SODIUM,PORCINE/PF 5,000 UNIT/0.5 ML SYRINGE SQ SCH ×3 (09:16→23:55)
[2022-12-19] MEDS: SODIUM ZIRCONIUM CYCLOSILICATE 10 GM PACKET PO SCH ×2 (09:17→21:30)
[2022-12-19] MEDS: MYCOPHENOLATE SODIUM DR 180 MG TABLET.DR PO SCH ×2 (09:17→21:32)
[2022-12-19] MEDS: THIAMINE 100 MG TAB PO SCH ×2 (09:17→21:32)
[2022-12-19] MEDS: FUROSEMIDE 40 MG TAB PO SCH (09:17)
[2022-12-19] MEDS: cloNIDine HCL 0.2 MG TAB PO SCH ×3 (09:17→21:32)
[2022-12-19] MEDS: carvediloL 12.5 MG TAB PO SCH ×2 (09:18→21:31)
[2022-12-19] MEDS: ASPIRIN 81 MG PO SCH (09:18)
[2022-12-19] MEDS: SODIUM BICARBONATE TAB 650 MG TAB PO SCH ×3 (09:18→21:31)
[2022-12-19] MEDS: amLODIPine 10 MG TAB PO SCH (09:18)
[2022-12-19] MEDS: FAMOTIDINE 20 MG TAB PO SCH (09:18)
[2022-12-19] MEDS: predniSONE 5 MG TAB PO SCH (09:18)
[2022-12-19] MEDS: AMMONIUM LACTATE 12% LOTION 225 GM BTL TOPICAL SCH ×2 (09:19→21:35)
--- NOTE | 2022-12-19 10:16 | P.PN ---
Subjective Progress Note Date: 12/19/22 Patient is a 72 yo F with a history of immunosuppression due to prior renal transplant, diabetes mellitus type 2 insulin requiring, hypertension, dyslipidemia, and multiple other comorbid conditions who presented to the ER with complaints of confusion. Of note patient was hospitalized here from 620 through 627 with severe sepsis related to community versus aspiration pneumonia. She was discharged home on Ceftin. On arrival to the ER her vitals were remarkable for a blood pressure of 164/102. Laboratory analysis was remarkable for white blood cell count 10.7, hemoglobin 9.4, sodium 1:30, potassium 5.3, BUN 49, creatinine 3.69, and troponin 0.040 with a BNP of 25,600. She underwent a head CT which showed no acute process. Lumbar spine CT showed multiple endplate irregularities with possible component of discitis/osteomyelitis not able to be excluded. Chest x-ray showed opacities in the right lower lung and left mid and lower lung concerning for atelectasis versus pneumonia. She was admitted for further monitoring. She was started on diuretics. Her ARB was held. Ne phrology and cardiology were consulted. She was noted to have worsening low back pain and orthopedic spine surgery was consulted, consideration was made for possible osteomyelitis but this was ruled out with decreasing inflammatory markers, patient did not want MRI. Her renal function worsened and medication adjustments were made. She did have an episode of hypoglycemia related to her Levemir dosing. This improved with decreased dosing. Patient really wants to be discharged to go home. She is wondering how long she needs to stay here to monitor her renal function. 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 She denies any chest pain, shortness breath, nausea, vomiting. She feels as though she can manage at home well. I did ask her discussed this with Dr. Clark. Vital signs reviewed General: nontoxic, no distress, appears at stated age Cardiovascular: S1S2 reg, no murmur, positive posterior tibial pulse bilateral, Lungs: Decreased breath sounds bilateral, no rhonchi, no rales , no accessory muscle use Abdominal: soft, nontender to palpation, no guarding, no appreciable organomegaly Ext: no gross muscle atrophy, 1+ edema b/l lower extremities, no contractures Neuro: CN II-XI grossly intact, no focal neuro deficits Psych: Alert, oriented, appropriate affect Assessment/plan: Acute on chronic systolic congestive heart failure with ejection fraction 40-45% with severe pulmonary hypertension on echo 11/25/2022 Hypertension Elevated troponin -Cardiology note reviewed: Follow renal function continue present therapy -Aspirin 81 mg daily, Lipitor 10 mg at night, Coreg 25 mg twice daily, Catapres 0.2 mg 3 times daily, Lasix 40 mg daily -Troponin significantly decreased from 11/04/22 and is likely related to resolving troponinemia from prior non-ST segment elevated myocardial infarction. Acute kidney injury on chronic kidney disease stage IV secondary to ATN Hyperkalemia, chronic Immunosuppressive history of renal transplant -Lokelma 10 mg BID - Sodium bicarb 1300 mg TID -Await further nephrology recommendations: We did discuss yesterday and her Prograf was held due to a Prograf level of 17 - Lasix 40 mg daily Bilateral heel pain -Lac-Hydrin cream. - X-ray without infection Acute on chronic low back pain -ESR and CRP were repeated. CRP is down to 6 from 15, ESR mildly elevated from 45-52. Patient does not want MRI at our location due to what sounds like severe claustrophobia. Patient is afebrile without a white blood cell count and has had improvement in her inflammatory markers without antibiotic therapy. At this point in time she appears stable for outpatient follow-up with Dr. Nieto. Diabetes mellitus type 2 insulin requiring Hypoglycemia, resolved -Levemir to 8 units this evening, sliding scale insulin, follow blood sugars every before meals and at bedtime - add Novolog 1 unit with meals TID Toxic metabolic encephalopathy, resolved Imaging: none new Data Review: Vitals reviewed and temperature 98.5, pulse 72, respirations 16, blood pressure 146/64, O2 sat 98% on room air Labs reviewed and remarkable for hemoglobin 9, sodium 135, BUN 50, creatinine 4.2 DVT prophylaxis: Heparin Anticipated discharge date: Pending clinical course Anticipated discharge place: Pending clinical course This dictation was prepared using [employer] voice recognition software. Though every attempt is made to correct errors during dictation some may still exist. Objective - Vital Signs Vital signs: Vital Signs Temp 98.5 F 12/19/22 03:26 Pulse 72 12/19/22 03:26 Resp 16 12/19/22 03:26 BP 146/64 12/19/22 03:26 Pulse Ox 98 12/19/22 03:26 FiO2 21 12/15/22 09:10 Intake & Output 12/18/22 12/19/22 12/19/22 18:59 06:59 18:59 Intake Total 118 240 Output Total 800 Balance 118 -800 240 Intake: Oral 118 240 Output: Urine 800 Other: Voiding Method External Catheter External Catheter # Voids 1 # Bowel Movements 1 - Labs CBC & Chem 7: 12/19/22 07:30 12/19/22 07:30 Labs: Abnormal Lab Results - Last 24 Hours (Table) 12/18/22 12/18/22 12/18/22 Range/Units 11:33 16:14 20:08 RBC (3.80-5.40) m/uL Hgb (11.4-16.0) gm/dL Hct (34.0-46.0) % MCHC (31.0-37.0) g/dL Sodium (137-145) mmol/L BUN (7-17) mg/dL Creatinine (0.52-1.04) mg/dL POC Glucose (mg/dL) 148 H 231 H 258 H (70-110) mg/dL 12/19/22 12/19/22 12/19/22 Range/Units 03:22 07:30 07:30 RBC 3.25 L (3.80-5.40) m/uL Hgb 9.0 L (11.4-16.0) gm/dL Hct 29.8 L (34.0-46.0) % MCHC 30.2 L (31.0-37.0) g/dL Sodium 135 L (137-145) mmol/L BUN 50 H (7-17) mg/dL Creatinine 4.20 H (0.52-1.04) mg/dL POC Glucose (mg/dL) 140 H (70-110) mg/dL
--- NOTE | 2022-12-19 11:28 | P.PN ---
Subjective Patient is seen in follow-up for acute allograft dysfunction and renal transplant management. Renal function stable. Has been voiding. On po Lasix. Denies chest pain or shortness of breath. On room air. Edema improved. Vital signs are stable. General: No acute distress. HEENT: Head exam is unremarkable. LUNGS: No audible rhonchi or wheezes. HEART: Rate and Rhythm are regular. ABDOMEN: Nontender. EXTREMITITES: Trace edema. Objective - Vital Signs Vital signs: Vital Signs Temp 98.5 F 12/19/22 03:26 Pulse 72 12/19/22 03:26 Resp 16 12/19/22 03:26 BP 146/64 12/19/22 03:26 Pulse Ox 98 12/19/22 03:26 FiO2 21 12/15/22 09:10 Intake & Output 12/18/22 12/19/22 12/19/22 18:59 06:59 18:59 Intake Total 118 240 Output Total 800 Balance 118 -800 240 Intake: Oral 118 240 Output: Urine 800 Other: Voiding Method External Catheter External Catheter # Voids 1 # Bowel Movements 1 - Labs CBC & Chem 7: 12/19/22 07:30 12/19/22 07:30 Labs: Abnormal Lab Results - Last 24 Hours (Table) 12/18/22 12/18/22 12/18/22 Range/Units 11:33 16:14 20:08 RBC (3.80-5.40) m/uL Hgb (11.4-16.0) gm/dL Hct (34.0-46.0) % MCHC (31.0-37.0) g/dL Sodium (137-145) mmol/L BUN (7-17) mg/dL Creatinine (0.52-1.04) mg/dL POC Glucose (mg/dL) 148 H 231 H 258 H (70-110) mg/dL 12/19/22 12/19/22 12/19/22 Range/Units 03:22 07:30 07:30 RBC 3.25 L (3.80-5.40) m/uL Hgb 9.0 L (11.4-16.0) gm/dL Hct 29.8 L (34.0-46.0) % MCHC 30.2 L (31.0-37.0) g/dL Sodium 135 L (137-145) mmol/L BUN 50 H (7-17) mg/dL Creatinine 4.20 H (0.52-1.04) mg/dL POC Glucose (mg/dL) 140 H (70-110) mg/dL Assessment and Plan Plan: Assessment: 1. 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 ?progfaf toxicity. Renal function worsening with diuresis. Creatinine stable at 4.2 today. 2. Chronic kidney disease stage IV secondary to CNI use and solitary kidney as well as diabetic kidney disease and cardiorenal syndrome. Baseline creatinine 2-2.5. 3. Acute on chronic systolic CHF ejection fraction of 40-45% with mild to moderate mitral regurgitation and moderate tricuspid regurgitation. 4. Volume overload. Improved with diuresis. 5. Status post donor renal allograft in 2016. 6. Hypertension with chronic kidney disease. 7. Diabetes mellitus. 8. Chronic hyperkalemia maintained on Lokelma. 9. Hypomagnesemia from poor intake, diuretic and chronic CNI use. Replaced. Improved. 10. Back pain. Being followed by orthopedic surgery. ?OM. 11. Anemia of chronic kidney disease. Iron replete. On Aranesp. Plan: Maintain oral Lasix. Tacrolimus level 17.2 dated 12/16/2022. Resume Prograf at lower dose of 3 mg twice a day starting tonight. Avoid nephrotoxins. Continue to monitor renal function and urine output. Maintain lokelma. Renal diet. No urgent need for renal replacement therapy at this time. Case also discussed with her transplant delivery manager at [facility]. Repeat BMP, magnesium and Prograf level 2-3 days postdischarge. Follow-up outpatient 1 week post discharge.
[2022-12-19 11:53] LABS: Glucose,Whole Blood 75 mg/dL (70-110)
--- NOTE | 2022-12-19 12:17 | P.PN ---
Subjective Progress Note Date: 12/19/22 PROGRESS NOTE The patient is a 72-year-old female with a known history of hypertension, hyperlipidemia, post renal transplant who presented with chest discomfort and symptoms of dyspnea. She's feeling better at this time her chest and back discomfort have resolved. She was without her diuretics prior to admission. Her peripheral edema is better. She denies any nausea or vomiting. She has mildly impaired systolic function by echocardiography. December 19: The patient is feeling better overall, her back pain has improved. She has no further chest discomfort. She denies any dizziness or palpitations. She has mild edema on the left side. She has been ambulating to the bathroom without significant difficulties. She has no nausea or vomiting. Medications: Amlodipine 10 mg daily, aspirin once a day, Lipitor 10 mg daily, Coreg 25 mg twice a day, clonidine 0.2 mg 3 times a day, Lasix 40 mg daily, insulin, prednisone, thiamine PHYSICAL EXAMINATION: Blood pressure 126/60 heart rate 66 LUNGS: Clear to auscultation HEART: Regular rate and rhythm, S1, S2. No S3. Systolic ejection murmur 3/6 with 1/6 diastolic murmur ABDOMEN: Soft, nontender, no organomegaly EXTREMETIES: Trace edema on the left LAB: Hemoglobin 9.0, BUN 50, creatinine 4.2 IMPRESSION: 1. Exacerbation of CHF, patient was not on diuretics on admission, improved 2. Back discomfort improved 3. Status post renal transplant 4. History of hypertension 5. History of aortic regurgitation 6. History of hyperlipidemia PLAN: 1. Continue present therapy 2. Increase physical activity 3. Follow her renal functions 4. Probable discharge home soon Objective - Vital Signs Vital signs: Vital Signs Temp 97.2 F L 12/19/22 12:00 Pulse 66 12/19/22 12:00 Resp 14 12/19/22 12:00 BP 126/62 12/19/22 12:00 Pulse Ox 100 12/19/22 12:00 FiO2 21 12/15/22 09:10 Intake & Output 12/18/22 12/19/22 12/19/22 18:59 06:59 18:59 Intake Total 118 240 Output Total 800 Balance 118 -800 240 Intake: Oral 118 240 Output: Urine 800 Other: Voiding Method External Catheter External Catheter External Catheter # Voids 1 # Bowel Movements 1 1 - Labs CBC & Chem 7: 12/19/22 07:30 12/19/22 07:30 Labs: Abnormal Lab Results - Last 24 Hours (Table) 12/18/22 12/18/22 12/19/22 Range/Units 16:14 20:08 03:22 RBC (3.80-5.40) m/uL Hgb (11.4-16.0) gm/dL Hct (34.0-46.0) % MCHC (31.0-37.0) g/dL Sodium (137-145) mmol/L BUN (7-17) mg/dL Creatinine (0.52-1.04) mg/dL POC Glucose (mg/dL) 231 H 258 H 140 H (70-110) mg/dL 12/19/22 12/19/22 Range/Units 07:30 07:30 RBC 3.25 L (3.80-5.40) m/uL Hgb 9.0 L (11.4-16.0) gm/dL Hct 29.8 L (34.0-46.0) % MCHC 30.2 L (31.0-37.0) g/dL Sodium 135 L (137-145) mmol/L BUN 50 H (7-17) mg/dL Creatinine 4.20 H (0.52-1.04) mg/dL POC Glucose (mg/dL) (70-110) mg/dL
[2022-12-19 16:25] LABS: Glucose,Whole Blood 231 mg/dL (70-110)
[2022-12-19 20:04] LABS: Glucose,Whole Blood 153 mg/dL (70-110)
[2022-12-19] MEDS: INSULIN DETEMIR (LEVEMIR) 100 UNIT/ML SYR SQ SCH (21:31)
[2022-12-19] MEDS: TACROLIMUS 1 MG CAP PO SCH (21:32)
[2022-12-19] MEDS: ATORVASTATIN 10 MG TAB PO SCH (21:32)
[2022-12-19] MEDS: ACETAMINOPHEN TAB 325 MG TAB PO PRN (21:32)
[2022-12-20 02:24] LABS: Glucose,Whole Blood 103 mg/dL (70-110)
[2022-12-20 06:06] LABS: Glucose,Whole Blood 48 mg/dL (70-110)
[2022-12-20] MEDS: INSULIN ASPART (NovoLOG) 100 UNIT/ML VIAL SQ SCH ×4 (06:20→14:51)
[2022-12-20 06:32] LABS: Glucose,Whole Blood 65 mg/dL (70-110)
[2022-12-20 06:46] LABS: Glucose,Whole Blood 83 mg/dL (70-110)
[2022-12-20] MEDS: ALBUTEROL NEBULIZED 2.5 MG/3 ML INHALATION SCH (09:00)
[2022-12-20] MEDS: SODIUM ZIRCONIUM CYCLOSILICATE 10 GM PACKET PO SCH (09:09)
[2022-12-20 09:10] VITALS: TEMP 98.2
[2022-12-20] MEDS: THIAMINE 100 MG TAB PO SCH (09:10)
[2022-12-20] MEDS: FUROSEMIDE 40 MG TAB PO SCH (09:11)
[2022-12-20] MEDS: MYCOPHENOLATE SODIUM DR 180 MG TABLET.DR PO SCH (09:11)
[2022-12-20] MEDS: ASPIRIN 81 MG PO SCH (09:11)
[2022-12-20] MEDS: carvediloL 12.5 MG TAB PO SCH (09:11)
[2022-12-20] MEDS: predniSONE 5 MG TAB PO SCH (09:11)
[2022-12-20] MEDS: amLODIPine 10 MG TAB PO SCH (09:12)
[2022-12-20] MEDS: HEPARIN SODIUM,PORCINE/PF 5,000 UNIT/0.5 ML SYRINGE SQ SCH (09:12)
[2022-12-20] MEDS: cloNIDine HCL 0.2 MG TAB PO SCH ×2 (09:12→14:52)
[2022-12-20] MEDS: TACROLIMUS 1 MG CAP PO SCH (09:12)
[2022-12-20] MEDS: SODIUM BICARBONATE TAB 650 MG TAB PO SCH ×2 (09:12→14:52)
[2022-12-20] MEDS: AMMONIUM LACTATE 12% LOTION 225 GM BTL TOPICAL SCH (09:12)
[2022-12-20] MEDS: FAMOTIDINE 20 MG TAB PO SCH (09:12)
[2022-12-20 09:22] LABS: HCT 31.2 % (34.0-46.0); HGB 9.2 gm/dL (11.4-16.0); Hypochromasia Marked; MCH 27.1 pg (25.0-35.0); MCHC 29.5 g/dL (31.0-37.0); MCV 91.9 fL (80.0-100.0); Mean Platelet Volume 9.1; Platelet Count 213 k/uL (150-450); WBC 8.3 k/uL (3.8-10.6)
[2022-12-20 09:45] LABS: African American GFR (CKD) 12 (>60 ml/min/1.73 sqM); Anion Gap 9 mmol/L; Blood Urea Nitrogen 51 mg/dL (7-17); Calcium 8.9 mg/dL (8.4-10.2); Carbon Dioxide 24 mmol/L (22-30); Chloride 103 mmol/L (98-107); Glucose 85 mg/dL (74-99); Non-African American GFR(CKD) 11 (>60 ml/min/1.73 sqM); Potassium 4.8 mmol/L (3.5-5.1); Sodium 136 mmol/L (137-145)
[2022-12-20] MEDS ORDERED: LOPERAMIDE 2 MG CAP PO STA (10:18)
[2022-12-20 11:56] LABS: Glucose,Whole Blood 185 mg/dL (70-110)
--- NOTE | 2022-12-20 12:34 | P.PN ---
Subjective Patient is seen for follow-up for acute allograft dysfunction with history of underlying renal transplant. Currently being diuresed for volume overload. Serum creatinine at 3.9 from 4.2 at peak. Patient reports good urine output. Concerned about renal replacement therapy and deteriorating renal function. This is briefly discussed with the patient. At this time there is no indication to start renal replacement therapy. She will need to follow closely as outpatient. Previous creatinine was 2.6 on 11/30/2022. Objective - Vital Signs Vital signs: Vital Signs Temp 98.2 F 12/20/22 08:00 Pulse 69 12/20/22 08:00 Resp 18 12/20/22 08:00 BP 168/69 12/20/22 08:00 Pulse Ox 100 12/20/22 09:01 FiO2 21 12/20/22 09:01 Intake & Output 12/19/22 12/20/22 12/20/22 18:59 06:59 18:59 Intake Total 358 480 Output Total 450 Balance 358 30 Intake: Oral 358 480 Output: Urine 450 Other: Voiding Method External Catheter Toilet # Bowel Movements 1 - Exam Awake, comfortable, in no acute distress Examination of the heart S1 and S2 Examination the lungs bilateral breath sounds are heard no crackles or wheezing is heard Abdomen is soft nontender Examination lower extremities shows edema 1+ in both ankles METHODS ANALYST DATA PROCESSING exam grossly intact - Labs CBC & Chem 7: 12/20/22 09:00 12/20/22 09:00 Labs: Abnormal Lab Results - Last 24 Hours (Table) 12/19/22 12/19/22 12/20/22 Range/Units 16: 20:03 06:05 RBC (3.80-5.40) m/uL Hgb (11.4-16.0) gm/dL Hct (34.0-46.0) % MCHC (31.0-37.0) g/dL Sodium (137-145) mmol/L BUN (7-17) mg/dL Creatinine (0.52-1.04) mg/dL POC Glucose (mg/dL) 231 H 153 H 48 L (70-110) mg/dL 12/20/22 12/20/22 12/20/22 Range/Units 06:30 09:00 09:00 RBC 3.40 L (3.80-5.40) m/uL Hgb 9.2 L (11.4-16.0) gm/dL Hct 31.2 L (34.0-46.0) % MCHC 29.5 L (31.0-37.0) g/dL Sodium 136 L (137-145) mmol/L BUN 51 H (7-17) mg/dL Creatinine 3.94 H (0.52-1.04) mg/dL POC Glucose (mg/dL) 65 L (70-110) mg/dL 12/20/22 Range/Units 11:52 RBC (3.80-5.40) m/uL Hgb (11.4-16.0) gm/dL Hct (34.0-46.0) % MCHC (31.0-37.0) g/dL Sodium (137-145) mmol/L BUN (7-17) mg/dL Creatinine (0.52-1.04) mg/dL POC Glucose (mg/dL) 185 H (70-110) mg/dL Assessment and Plan Assessment: 1. 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 ?progfaf toxicity. Renal function worsening with diuresis. Creatinine improved to 3.9 today. 2. Chronic kidney disease stage IV secondary to CNI use and solitary kidney as well as diabetic kidney disease and cardiorenal syndrome. Baseline creatinine 2-2.5. 3. Acute on chronic systolic CHF ejection fraction of 40-45% with mild to moderate mitral regurgitation and moderate tricuspid regurgitation. 4. Volume overload. Improved with diuresis. 5. Status post donor renal allograft in 2016. 6. Hypertension with chronic kidney disease. 7. Diabetes mellitus. 8. Chronic hyperkalemia maintained on Lokelma. 9. Hypomagnesemia from poor intake, diuretic and chronic CNI use. Replaced. Improved. 10. Back pain. Being followed by orthopedic surgery. ?OM. 11. Anemia of chronic kidney disease. Iron replete. On Aranesp. Plan: Continue current dose of tacrolimus Repeat level in a.m. if patient is discharged she can repeat the level in 2-3 days. Continue current dose of Lasix Follow-up as outpatient in 3-4 days.
--- NOTE | 2022-12-20 13:39 | P.DS ---
Providers Date of admission: 12/15/22 03:42 Expected date of discharge: 12/20/22 Attending physician: Lidia Elaine MD Consults: 12/15/22 03:42 Consult Physician Routine Consulting Provider: [facility] Consult Reason/Comments: volume overload/chf Do you want consulting provider notified?: Yes Consult Physician Routine Consulting Provider: Juan Manuel Clark Consult Reason/Comments: deloris on ckd, renal transplant Do you want consulting provider notified?: Yes 12/15/22 06:03 Consult Physician Routine Consulting Provider: Fernando Nieto Consult Reason/Comments: low back pain , abnormalCT findings Do you want consulting provider notified?: Yes Primary care physician: Raza Porras [facility] [place] Course: Discharge Diagnosis: Acute on chronic systolic congestive heart failure with ejection fraction 40-45% with severe pulmonary hypertension on echo 11/25/2022 Hypertension Elevated troponin Acute kidney injury on chronic kidney disease stage IV secondary to ATN Hyperkalemia, chronic Immunosuppressed due to history of renal transplant Diabetes mellitus type 2 insulin requiring non infectious diarrhea. Hypoglycemia, resolved Toxic metabolic encephalopathy, resolved Bilateral heel pain, resolved Acute on chronic low back pain Hospital Course: Patient is a 72 yo F with a history of immunosuppression due to prior renal transplant, diabetes mellitus type 2 insulin requiring, hypertension, dyslipidemia, and multiple other comorbid conditions who presented to the ER with complaints of confusion. Of note patient was hospitalized here from 11/23 through 11/30 with severe sepsis related to community versus aspiration pneumonia. She was discharged home on Ceftin. On arrival to the ER her vitals were remarkable for a blood pressure of 164/102. Laboratory analysis was remarkable for white blood cell count 10.7, hemoglobin 9.4, sodium 1:30, potassium 5.3, BUN 49, creatinine 3.69, and troponin 0.040 with a BNP of 25,600. She underwent a head CT which showed no acute process. Chest x-ray showed opacities in the right lower lung and left mid and lower lung concerning for atelectasis versus pneumonia. She was admitted for further monitoring Lumbar spine CT showed multiple endplate irregularities with possible component of discitis/osteomyelitis not able to be excluded. She was seen by orthopedic spine surgery but declined MRI she struggles with severe claustrophobia can only do an open MRI. Her ESR and CRP were tracked and decreased through her hospital stay. She remained afebrile with no white blood cell count. Osteomyelitis was ruled out. She was started on diuretics. Nephrology and cardiology were consulted. Her renal function worsened and medication adjustments were made. She was found have a slightly elevated tacrolimus level at 17, initially her tacrolimus was held and then was restarted at a lower dose. Nephrology here consulted with her transplant wind development director who agreed with lower dose as well as repeat tacrolimus level III days after discharge. She did have persistent hyperkalemia and her low, was increased to twice daily. She struggled with hypoglycemia during her hospital stay which was felt both to be related to her Levemir dosing as well as her not eating much. She did have some diarrhea during her hospital stay, she states this is not unusual for her and felt it was secondary to food intolerances in the hospital. C. diff testing as well as fecal lactoferrin were negative and infectious diarrhea was ruled out. Patient's renal function began to improve slightly. She was determined stable for discharge with close outpatient monitoring. Follow-up: Dr. Whyte on 12/29, Dr. Purcell 1-2 days, Dr. Marcos in 1 week, Dr. Otto 71 week. She will have flu water visiting nurses. She will have a repeat BMP and tacrolimus level in 3 days. Medication adjustments include increasing Lokelma to twice a day, increasing Lasix to 40mg milligrams daily, decreased tacrolimus 3 mg twice daily, decrease Lantus to 8 units daily Patient seen and examined at bedside. Feeling very overwhelmed. She doesn't want to go home. She is worried that her kidneys are failing and she will need dialysis. I informed her that the resting she can do is continue her close outpatient follow-up and take medications as prescribed. She is having some diarrhea but she feels that this due to the hospital food and it is not extraordinarily unusual for her. Vital signs reviewed and stable. General: nontoxic, no distress, appears at stated age Cardiovascular: S1S2 reg, no murmur, positive posterior tibial pulse bilateral, Lungs: CTA bilateral, no rhonchi, no rales , no accessory muscle use Abdominal: soft, nontender to palpation, no guarding, no appreciable organomegaly Ext: no gross muscle atrophy, no edema b/l lower extremities, no contractures Neuro: CN II-XI grossly intact, no focal neuro deficits Psych: Alert, oriented, appropriate affect A total of 42 minutes of time were spent preparing this complex discharge summary. Patient was discharged on 12/20/22 This dictation was prepared using [employer] Part [employer] voice recognition software. Though every attempt is made to correct errors during dictation some may still exist. ` Patient Condition at Discharge: Stable Plan - Discharge Summary Discharge Rx Participant: Yes New Discharge Prescriptions: New Furosemide [Lasix] 40 mg PO DAILY #30 tab Sodium Zirconium Cyclosilicate [Lokelma] 10 gm PO BID #60 packet Insulin Glargine,Hum.rec.anlog [Lantus Solostar Pen] 8 units SQ DAILY #3 each Tacrolimus [Prograf] 3 mg PO BID #180 cap Continue amLODIPine [Norvasc] 10 mg PO DAILY Sodium Bicarbonate Tab 1,300 mg PO TID Atorvastatin Calcium [Lipitor] 10 mg PO HS predniSONE 5 mg PO DAILY Mycophenolate Sodium [Mycophenolic Acid] 360 mg PO BID Insulin Lispro [humaLOG Kwikpen] See Protocol SQ AC-TID carvediloL [Coreg] 25 mg PO BID Ketoconazole 2% Cream [Nizoral 2%] 1 applic TOPICAL DAILY PRN PRN Reason: skin on nails/feet traMADol HCL 50 - 100 mg PO Q6H PRN PRN Reason: Pain cloNIDine HCL [Catapres] 0.2 mg PO TID #90 tab Ergocalciferol [Vitamin D2 (1250 Mcg = 18672 Iu)] 1,250 mcg PO Q7D Famotidine 40 mg PO DAILY Thiamine [Vitamin B-1] 250 mg PO BID Gentamicin 0.1% Cream 1 applic TOPICAL DAILY Diphenox-Atrop 2.5-0.025 mg [Lomotil] 1 tab PO TID PRN PRN Reason: Diarrhea Docusate [Colace] 100 mg PO DAILY PRN PRN Reason: Constipation Albuterol Inhaler [Ventolin Hfa Inhaler] 2 puff INHALATION RT-DAILY Aspirin EC [Ecotrin Low Dose] 81 mg PO DAILY Discontinued Tacrolimus [Prograf] 5 mg PO DAILY Tacrolimus [Prograf] 4 mg PO HS Insulin Glargine,Hum.rec.anlog [Lantus Solostar Pen] 35 unit SQ HS Sodium Zirconium Cyclosilicate [Lokelma] 10 gm PO DAILY Furosemide [Lasix] 40 mg PO DAILY PRN PRN Reason: Edema Cefdinir 300 mg PO Q12H Discharge Medication List Atorvastatin Calcium [Lipitor] 10 mg PO HS 08/11/16 [History] Sodium Bicarbonate Tab 1,300 mg PO TID 08/11/16 [History] amLODIPine [Norvasc] 10 mg PO DAILY 08/11/16 [History] predniSONE 5 mg PO DAILY 08/25/17 [History] Insulin Lispro [humaLOG Kwikpen] See Protocol SQ AC-TID 04/25/20 [History] Mycophenolate Sodium [Mycophenolic Acid] 360 mg PO BID 04/25/20 [History] Ergocalciferol [Vitamin D2 (1250 Mcg = 24895 Iu)] 1,250 mcg PO Q7D 10/27/21 [History] Famotidine 40 mg PO DAILY 10/27/21 [History] carvediloL [Coreg] 25 mg PO BID 10/27/21 [History] Albuterol Inhaler [Ventolin Hfa Inhaler] 2 puff INHALATION RT-DAILY 11/24/22 [History] Aspirin EC [Ecotrin Low Dose] 81 mg PO DAILY 11/24/22 [History] Diphenox-Atrop 2.5-0.025 mg [Lomotil] 1 tab PO TID PRN 11/24/22 [History] Docusate [Colace] 100 mg PO DAILY PRN 11/24/22 [History] Gentamicin 0.1% Cream 1 applic TOPICAL DAILY 11/24/22 [History] Ketoconazole 2% Cream [Nizoral 2%] 1 applic TOPICAL DAILY PRN 11/24/22 [History] Thiamine [Vitamin B-1] 250 mg PO BID 11/24/22 [History] traMADol HCL 50 - 100 mg PO Q6H PRN 11/24/22 [History] cloNIDine HCL [Catapres] 0.2 mg PO TID #90 tab 11/30/22 [Rx] Furosemide [Lasix] 40 mg PO DAILY #30 tab 12/20/22 [Rx] Insulin Glargine,Hum.rec.anlog [Lantus Solostar Pen] 8 units SQ DAILY #3 each 12/20/22 [Rx] Sodium Zirconium Cyclosilicate [Lokelma] 10 gm PO BID #60 packet 12/20/22 [Rx] Tacrolimus [Prograf] 3 mg PO BID #180 cap 12/20/22 [Rx] Follow up Appointment(s)/Referral(s): Oscar Whyte MD [STAFF PHYSICIAN] - 12/29/22 4:15 pm Raza Purcell MD [Primary Care Provider] - 1-2 days Say Marcos MD [REFERRING] - 1 Week Fernando Nieto DO [Doctor of Osteopathic Medicine] - 1 Week [facility] Visiting Nurse, [NON-STAFF] - As Needed Ambulatory/Diagnostic Orders: Basic Metabolic Panel [LAB.AMB] Time Frame: 3 Days, Location: None Selected Miscellaneous Lab Order [LAB.AMB] Time Frame: 3 Days, Location: None Selected Patient Instructions/Handouts: Chronic Kidney Disease (DC) Activity/Diet/Wound Care/Special Instructions: Activity: as tolerated Diet: Renal Special Instructions: Prograf level and BMP in 3 days results to Say Marcos MD Monitor blood sugar closely. Here in the hospital you have only been on 8 units of long acting insulin If your diarrhea continues please discuss with your Dr. Marcos Recommend repeat chest x-ray in 6 weeks with your PCP Discharge Disposition: HOME SELF-CARE
[2022-12-20 14:37] VITALS: BMI 32.0
--- NOTE | 2022-12-20 14:37 | P.PN ---
Subjective PROGRESS NOTE The patient is a 72-year-old female with a known history of hypertension, hyperlipidemia, post renal transplant who presented with chest discomfort and symptoms of dyspnea. She's feeling better at this time her chest and back discomfort have resolved. She was without her diuretics prior to admission. Her peripheral edema is better. She denies any nausea or vomiting. She has mildly impaired systolic function by echocardiography. December 19: The patient is feeling better overall, her back pain has improved. She has no further chest discomfort. She denies any dizziness or palpitations. She has mild edema on the left side. She has been ambulating to the bathroom without significant difficulties. She has no nausea or vomiting. 12/20 Patient seen and examined. Blood pressure is labile 130s up to 160s. She denies any chest pain or pressure. States her lower extremity edema is much better. Continues on oral Lasix with good urine output. Creatinine has been stable, 3.9 today. PHYSICAL EXAMINATION: Blood pressure 126/60 heart rate 66 LUNGS: Clear to auscultation HEART: Regular rate and rhythm, S1, S2. No S3. Systolic ejection murmur 3/6 with 1/6 diastolic murmur ABDOMEN: Soft, nontender, no organomegaly EXTREMETIES: Trace edema on the left LAB: Hemoglobin 9.0, BUN 50, creatinine 4.2 IMPRESSION: 1. Acute on chronic diastolic heart failure 2. Back discomfort improved 3. Status post renal transplant 4. History of hypertension 5. History of aortic regurgitation 6. History of hyperlipidemia 7. Mild cardiomyopathy EF 45% PLAN: Creatinine appears stable. Continue current regimen. Continue with Lasix on discharge. Appears stable for discharge home. Follow-up in office in 1-2 weeks. Objective - Vital Signs Vital signs: Vital Signs Temp 98.2 F 12/20/22 08:00 Pulse 69 12/20/22 08:00 Resp 18 12/20/22 08:00 BP 168/69 12/20/22 08:00 Pulse Ox 100 12/20/22 09:01 FiO2 21 12/20/22 09:01 Intake & Output 12/19/22 12/20/22 12/20/22 18:59 06:59 18:59 Intake Total 358 480 Output Total 450 Balance 358 30 Intake: Oral 358 480 Output: Urine 450 Other: Voiding Method External Catheter Toilet # Bowel Movements 1 - Labs CBC & Chem 7: 12/20/22 09:00 12/20/22 09:00 Labs: Abnormal Lab Results - Last 24 Hours (Table) 12/19/22 12/19/22 12/20/22 Range/Units 16:23 20:03 06:05 RBC (3.80-5.40) m/uL Hgb (11.4-16.0) gm/dL Hct (34.0-46.0) % MCHC (31.0-37.0) g/dL Sodium (137-145) mmol/L BUN (7-17) mg/dL Creatinine (0.52-1.04) mg/dL POC Glucose (mg/dL) 231 H 153 H 48 L (70-110) mg/dL 12/20/22 12/20/22 12/20/22 Range/Units 06:30 09:00 09:00 RBC 3.40 L (3.80-5.40) m/uL Hgb 9.2 L (11.4-16.0) gm/dL Hct 31.2 L (34.0-46.0) % MCHC 29.5 L (31.0-37.0) g/dL Sodium 136 L (137-145) mmol/L BUN 51 H (7-17) mg/dL Creatinine 3.94 H (0.52-1.04) mg/dL POC Glucose (mg/dL) 65 L (70-110) mg/dL 12/20/22 Range/Units 11:52 RBC (3.80-5.40) m/uL Hgb (11.4-16.0) gm/dL Hct (34.0-46.0) % MCHC (31.0-37.0) g/dL Sodium (137-145) mmol/L BUN (7-17) mg/dL Creatinine (0.52-1.04) mg/dL POC Glucose (mg/dL) 185 H (70-110) mg/dL
[2022-12-20 14:55] VITALS: BP 155/73; PULSE 72; RESP 16
== END 2022-12-20 16:33 | disposition home or self-care (01) | DRG 291 ==
LOC: EC 23:32 → 3SCARD 12-15 03:42
PROVIDERS: ADMIT Internal Medicine; ATTEND Internal Medicine
DX: I13.2 Hypertensive heart and chronic kidney disease with heart failure and with stage 5 chronic kidney disease, or end stage renal disease (principal); G92.8 Other toxic encephalopathy; I50.43 Acute on chronic combined systolic (congestive) and diastolic (congestive) heart failure; N17.0 Acute kidney failure with tubular necrosis; D84.9 Immunodeficiency, unspecified; E87.1 Hypo-osmolality and hyponatremia; N18.4 Chronic kidney disease, stage 4 (severe); T86.19 Other complication of kidney transplant; E11.65 Type 2 diabetes mellitus with hyperglycemia; E11.649 Type 2 diabetes mellitus with hypoglycemia without coma; Z79.4 Long term (current) use of insulin; I08.3 Combined rheumatic disorders of mitral, aortic and tricuspid valves; I25.2 Old myocardial infarction; J45.909 Unspecified asthma, uncomplicated; M48.04 Spinal stenosis, thoracic region; E11.319 Type 2 diabetes mellitus with unspecified diabetic retinopathy without macular edema; I27.20 Pulmonary hypertension, unspecified; I42.9 Cardiomyopathy, unspecified; D63.1 Anemia in chronic kidney disease; E11.22 Type 2 diabetes mellitus with diabetic chronic kidney disease; E11.40 Type 2 diabetes mellitus with diabetic neuropathy, unspecified; Z20.822 Contact with and (suspected) exposure to COVID-19; E78.5 Hyperlipidemia, unspecified; E83.42 Hypomagnesemia; E87.5 Hyperkalemia; F40.240 Claustrophobia; G89.29 Other chronic pain; M51.34 Other intervertebral disc degeneration, thoracic region; M41.9 Scoliosis, unspecified; K58.0 Irritable bowel syndrome with diarrhea; Y83.0 Surgical operation with transplant of whole organ as the cause of abnormal reaction of the patient, or of later complication, without mention of misadventure at the time of the procedure; G43.909 Migraine, unspecified, not intractable, without status migrainosus; Z71.3 Dietary counseling and surveillance; Z79.52 Long term (current) use of systemic steroids; T50.2X5A Adverse effect of carbonic-anhydrase inhibitors, benzothiadiazides and other diuretics, initial encounter; T45.1X5A Adverse effect of antineoplastic and immunosuppressive drugs, initial encounter; R77.8 Other specified abnormalities of plasma proteins; M79.672 Pain in left foot; M79.671 Pain in right foot; H35.041 Retinal micro-aneurysms, unspecified, right eye; Z87.440 Personal history of urinary (tract) infections; Z87.01 Personal history of pneumonia (recurrent); Z86.16 Personal history of COVID-19; Z79.82 Long term (current) use of aspirin; Z79.899 Other long term (current) drug therapy; Z86.010 Personal history of colon polyps; Z91.148 Patient's other noncompliance with medication regimen for other reason; Z91.81 History of falling; Z88.5 Allergy status to narcotic agent; Z88.0 Allergy status to penicillin; Z88.8 Allergy status to other drugs, medicaments and biological substances; Z91.040 Latex allergy status
CPT/HCPCS: 36410; 36415; 70450; 71045; 72128; 72131; 76937; 80048; 80053; 80197; 80306; 81001; 82009; 82140; 82728; 82803; 82947; 83036; 83540; 83550; 83630; 83735; 83880; 84132; 84145; 84484; 85025; 85027; 85610; 85652; 85730; 86140; 87324; 87636; 93005; 93308; 94640; 94760; 96365; 96366; 96372; 96375; 96376; 99285

== ENCOUNTER 2023-01-11 10:39 | Inpatient (IN) | payer MEDICARE ==
[2023-01-11 11:21] LABS: Glucose,Whole Blood 46 mg/dL (70-110)
[2023-01-11 11:21] LABS: Glucose,Whole Blood 62 mg/dL (70-110)
[2023-01-11] MEDS ORDERED: SODIUM CHLORIDE 0.9% 500 ML 500 ML IV ONE (11:26)
[2023-01-11] MEDS ORDERED: DEXTROSE 50% SYRINGE 50 ML IVP STA (11:30)
--- NOTE | 2023-01-11 11:36 | ED ---
General Adult HPI - General Chief complaint: Altered Mental Status Stated complaint: AMS Time Seen by Provider: 01/11/23 10:55 Source: patient, EMS, RN notes reviewed, old records reviewed Mode of arrival: EMS Limitations: no limitations - History of Present Illness Initial comments: This is a 72-year-old female who is brought into the emergency department by family because she has been altered mentally. According to the family the last time this happened they were told she had a urinary tract infection but the patient did not finish her antibiotics. Patient herself didn't complain today of a little abdominal pain however she's had no vomiting or nausea. Patient did have diarrhea couple days ago. Patient has had no history of any recent fevers. There's been no history of trauma. Patient been no chest pain. Patient has not had a cough. Patient said no difficulty breathing or shortness of breath. At this time there is no further history available - Related Data Home Medications Medication Instructions Recorded Confirmed Atorvastatin Calcium [Lipitor] 10 mg PO HS 08/11/16 01/11/23 Sodium Bicarbonate Tab 1,300 mg PO TID 08/11/16 01/11/23 amLODIPine [Norvasc] 10 mg PO DAILY 08/11/16 01/11/23 predniSONE 5 mg PO DAILY 08/25/17 01/11/23 Insulin Lispro [humaLOG Kwikpen] See Protocol SQ AC-TID 04/25/20 01/11/23 Mycophenolate Sodium [Mycophenolic 360 mg PO BID 04/25/20 01/11/23 Acid] Ergocalciferol [Vitamin D2 (1250 1,250 mcg PO Q7D 10/27/21 01/11/23 Mcg = 12594 Iu)] Famotidine 40 mg PO DAILY 10/27/21 01/11/23 carvediloL [Coreg] 25 mg PO BID 10/27/21 01/11/23 Albuterol Inhaler [Ventolin Hfa 2 puff INHALATION RT-DAILY 11/24/22 01/11/23 Inhaler] Aspirin EC [Ecotrin Low Dose] 81 mg PO DAILY 11/24/22 01/11/23 Diphenox-Atrop 2.5-0.025 mg 1 tab PO TID PRN 11/24/22 01/11/23 [Lomotil] Docusate [Colace] 100 mg PO DAILY PRN 11/24/22 01/11/23 Gentamicin 0.1% Cream 1 applic TOPICAL DAILY 11/24/22 01/11/23 Ketoconazole 2% Cream [Nizoral 2%] 1 applic TOPICAL DAILY PRN 11/24/22 01/11/23 Thiamine [Vitamin B-1] 250 mg PO BID 11/24/22 01/11/23 traMADol HCL 50 - 100 mg PO Q6H PRN 11/24/22 01/11/23 Metaxalone [Skelaxin] 800 mg PO BID PRN 01/11/23 01/11/23 Previous Rx's Medication Instructions Recorded cloNIDine HCL [Catapres] 0.2 mg PO TID #90 tab 11/30/22 Furosemide [Lasix] 40 mg PO DAILY #30 tab 12/20/22 Insulin Glargine,Hum.rec.anlog 8 units SQ DAILY #3 each 12/20/22 [Lantus Solostar Pen] Sodium Zirconium Cyclosilicate 10 gm PO BID #60 packet 12/20/22 [Lokelma] Tacrolimus [Prograf] 3 mg PO BID #180 cap 12/20/22 Allergies Allergy/AdvReac Type Severity Reaction Status Date / Time hydralazine [From Apresoline] Allergy Rash/Hives Verified 01/11/23 13:52 Iodinated Contrast Media Allergy Unknown Verified 01/11/23 13:52 [Iodinated Contrast- Oral and IV Dye] meperidine [From Demerol] Allergy Anaphylaxis Verified 01/11/23 13:52 Penicillins Allergy Rash/Hives Verified 01/11/23 13:52 Review of Systems ROS Statement: Those systems with pertinent positive or pertinent negative responses have been documented in the HPI. ROS Other: All systems not noted in ROS Statement are negative. Past Medical History Past Medical History: No Reported History, Asthma, Diabetes Mellitus, Dialysis, Eye Disorder, Hyperlipidemia, Hypertension, Renal Disease, Skin Disorder Additional Past Medical History / Comment(s): history of covid, IDDM type II, neuropathy bilateral legs/feet, ESRD with past peritoneal/hemodialysis then in 2016 had renal transplant, UTI with sepsis, IBS, benign colon polyps, chronic low back pain, migraines, R eye retinal bleed with injections, L eye detached retina with surgery, anemia. PAST [employer] HISTORY: She has no history of STDs. History of Any Multi-Drug Resistant Organisms: ESBL Date of last positivie culture/infection: 2011 approx(PREVIOUSLY CHARTED) MDRO Source:: peritoneal dialysis cath Past Surgical History: Cholecystectomy, Hysterectomy, Orthopedic Surgery Additional Past Surgical History / Comment(s): Peritoneal dialysis cath since removed, hemodialysis cath since removed, 2016 renal transplant, EGD, colonoscopies/benign polypectomy, bilateral eye cataract removals, L eye detached retinal surgery, L knee arthroscopy Past Anesthesia/Blood Transfusion Reactions: No Reported Reaction Additional Past Anesthesia/Blood Transfusion Reaction / Comment(s): has had a hard time coming out of anesthesia Past Psychological History: No Psychological Hx Reported Smoking Status: Former smoker Past Alcohol Use History: None Reported Past Drug Use History: None Reported - Past Family History Mother History Unknown: Yes Additional Family Medical History / Comment(s): Mother of poisoning when pt was 11 yrs old. Father Family Medical History: Vascular Disorder Additional Family Medical History / Comment(s): brain aneurysm General Exam - General Exam Comments Initial Comments: GENERAL: Patient is well-developed and well-nourished. Patient is nontoxic and well- hydrated and is in no acute distress. ENT: Neck is soft and supple. No significant lymphadenopathy is noted. Oropharynx is clear. Moist mucous membranes. Neck has full range of motion without eliciting any pain. EYES: The sclera were anicteric and conjunctiva were pink and moist. Extraocular movements were intact and pupils were equal round and reactive to light. Eyelids were unremarkable. PULMONARY: Unlabored respirations. Good breath sounds bilaterally. No audible rales rhonchi or wheezing was noted. CARDIOVASCULAR: There is a regular rate and rhythm without any murmurs gallops or rubs. ABDOMEN: Soft and nontender with normal bowel sounds. SKIN: Skin is clear with no lesions or rashes and otherwise unremarkable. NEUROLOGIC: Patient is alert and oriented 1. Cranial nerves II through XII are grossly intact. Motor and sensory are also intact. Normal speech, volume and content. Symmetrical smile. MUSCULOSKELETAL: Normal extremities with adequate strength and full range of motion. LYMPHATICS: No significant lymphadenopathy is noted PSYCHIATRIC: Unable to assess at this time Limitations: no limitations Course Vital Signs 01/11/23 10:40 Temperature 97.2 F L Pulse Rate 80 Respiratory 16 Rate Blood Pressure 204/120 O2 Sat by Pulse 100 Oximetry Medical Decision Making - Medical Decision Making I interpreted the EKG. EKG shows a sinus rhythm at 81 bpm [place] interval is 204 QRS is under 10 Q-T intervals 410 QTC is 448. Patient's EKG shows no ST segment elevation or depression Was pt. sent in by a medical professional or institution ([facility], [facility], urgent care, hospital, or senior care...) When possible be specific @ -No Did you speak to anyone other than the patient for history (EMS, parent, family, police, friend...)? What history was obtained from this source @ -Family gave part of the history Did you review nursing and triage notes (agree or disagree)? Why? @ -I reviewed and agree with nursing and triage notes Were old charts reviewed (outside hosp., previous admission, EMS record, old EKG, old radiological studies, urgent care reports/EKG's, senior care records)? Report findings @ -I will review prior charts in prior laboratory studies Differential Diagnosis (chest pain, altered mental status, abdominal pain women, abdominal pain men, vaginal bleeding, weakness, fever, dyspnea, syncope, headache, dizziness, GI bleed, back pain, seizure, CVA, palpatations, mental health, musculoskeletal)? @ -Differential Altered Mental Status: Hypoglycemia, DKA, hypercapnia, ETOH, overdose, CO poisoning, trauma, myxedema coma, HTN encephalopathy, infection, encephalitis, psychosis, intercranial hemorrhage, hepatic encephalopathy, meningitis, CVA, this is not meant to be an all-inclusive list EKG interpreted by me (3pts min.). @ -As above X-rays interpreted by me (1pt min.). @ -Chest x-ray showed no acute abnormality CT interpreted by me (1pt min.). @ -CT of the brain showed no acute abnormality U/S interpreted by me (1pt. min.). @ -None done What testing was considered but not performed or refused? (CT, X-rays, U/S, labs)? Why? @ -None What meds were considered but not given or refused? Why? @ -None Did you discuss the management of the patient with other professionals (professionals i.e. [facility], [facility], lab, RT, psych nurse, social service coordinator, technical solutions director, teacher, county records management officer, rn case manager)? Give summary @ -I spoke with sounds physician's agreed to admit the patient and the patient wrote admitting orders Was smoking cessation discussed for >3mins.? @ -No Was critical care preformed (if so, how long)? @ -No Were there social determinants of health that impacted care today? How? (Homelessness, low income, unemployed, alcoholism, drug addiction, transportation, low edu. Level, literacy, decrease access to med. care, residential, rehab)? @ -No Was there de-escalation of care discussed even if they declined (Discuss DNR or withdrawal of care, Hospice)? DNR status @ -No What co-morbidities impacted this encounter? (DM, HTN, Smoking, COPD, CAD, Cancer, CVA, ARF, Chemo, Hep., AIDS, mental health diagnosis, sleep apnea, morbid obesity)? @ -None Was patient admitted / discharged? Hospital course, mention meds given and route, prescriptions, significant lab abnormalities, going to OR and other pertinent info. @ -Patient came in altered according to family and patient was hypoglycemic initially patient was given D50 and then eventually had something to drink and eat. Patient was reevaluated multiple times by myself in she still seems slow in her responses but accurate. Family was no longer there to speak to them about her improvement. Undiagnosed new problem with uncertain prognosis? @ -No Drug Therapy requiring intensive monitoring for toxicity (Heparin, Nitro, Insuli n, Cardizem)? @ -No Were any procedures done? @ -No Diagnosis/symptom? @ -Hypoglycemic Acute, or Chronic, or Acute on Chronic? @ -Acute Uncomplicated (without systemic symptoms) or Complicated (systemic symptoms)? @ -Complicated Side effects of treatment? @ -No Exacerbation, Progression, or Severe Exacerbation? @ -No Poses a threat to life or bodily function? How? (Chest pain, [place], [place], pneumonia, PE, COPD, DKA, ARF, appy, cholecystitis, CVA, Diverticulitis, Homicidal, Suicidal, threat to staff... and all critical care pts) @ -Yes this could lead to altered mental status and injury Diagnosis/symptom? @ -Hypertensive urgency Acute, or Chronic, or Acute on Chronic? @ -Acute Uncomplicated (without systemic symptoms) or Complicated (systemic symptoms)? @ -Complicated Side effects of treatment? @ -none Exacerbation, Progression, or Severe Exacerbation] @ -no Poses a threat to life or bodily function? @ -Yes this could lead to end organ dysfunction - Lab Data Result diagrams: 01/11/23 11:29 01/11/23 11:29 Lab Results 01/11/23 01/11/23 01/11/23 Range/Units 11:18 11:19 11:29 WBC 12.2 H (3.8-10.6) k/uL RBC 4.00 (3.80-5.40) m/uL Hgb 10.6 L (11.4-16.0) gm/dL Hct 35.5 (34.0-46.0) % MCV 88.7 D (80.0-100.0) fL MCH 26.4 (25.0-35.0) pg MCHC 29.7 L (31.0-37.0) g/dL RDW 14.8 (11.5-15.5) % Plt Count 328 (150-450) k/uL MPV 9.2 Neutrophils % 70 % Lymphocytes % 20 % Monocytes % 8 % Eosinophils % 1 % Basophils % 0 % Neutrophils # 8.5 H (1.3-7.7) k/uL Lymphocytes # 2.4 (1.0-4.8) k/uL Monocytes # 1.0 (0-1.0) k/uL Eosinophils # 0.1 (0-0.7) k/uL Basophils # 0.0 (0-0.2) k/uL Hypochromasia Marked PT (9.0-12.0) sec INR (<1.2) APTT (22.0-30.0) sec Sodium (137-145) mmol/L Potassium (3.5-5.1) mmol/L Chloride (98-107) mmol/L Carbon Dioxide (22-30) mmol/L Anion Gap mmol/L BUN (7-17) mg/dL Creatinine (0.52-1.04) mg/dL Est GFR (CKD-EPI)AfAm (>60 ml/min/1.73 sqM) Est GFR (CKD-EPI)NonAf (>60 ml/min/1.73 sqM) Glucose (74-99) mg/dL POC Glucose (mg/dL) 46 L 62 L (70-110) mg/dL POC Glu Interior Design Teacher ID Schoof, Bibi Schoof, Bibi Calcium (8.4-10.2) mg/dL Total Bilirubin (0.2-1.3) mg/dL AST (14-36) U/L ALT (4-34) U/L Alkaline Phosphatase (38-126) U/L Troponin I (0.000-0.034) ng/mL Total Protein (6.3-8.2) g/dL Albumin (3.5-5.0) g/dL Urine Color Urine Appearance (Clear) Urine pH (5.0-8.0) Ur Specific Reserve (1.001-1.035) Urine Protein (Negative) Urine Glucose (UA) (Negative) Urine Ketones (Negative) Urine Blood (Negative) Urine Nitrite (Negative) Urine Bilirubin (Negative) Urine Urobilinogen (<2.0) mg/dL Ur Leukocyte Esterase (Negative) Urine RBC (0-5) /hpf Urine WBC (0-5) /hpf Ur Squamous Epith Cells (0-4) /hpf Urine Mucus (None) /hpf Urine Opiates Screen (NotDetected) Ur Oxycodone Screen (NotDetected) Urine Methadone Screen (NotDetected) Ur Propoxyphene Screen (NotDetected) Ur Barbiturates Screen (NotDetected) U Tricyclic Antidepress (NotDetected) Ur Phencyclidine Scrn (NotDetected) Ur Amphetamines Screen (NotDetected) U Methamphetamines Scrn (NotDetected) U Benzodiazepines Scrn (NotDetected) Urine Cocaine Screen (NotDetected) U Marijuana (THC) Screen (NotDetected) 01/11/23 01/11/23 01/11/23 Range/Units 11:29 11:29 11:29 WBC (3.8-10.6) k/uL RBC (3.80-5.40) m/uL Hgb (11.4-16.0) gm/dL Hct (34.0-46.0) % MCV (80.0-100.0) fL MCH (25.0-35.0) pg MCHC (31.0-37.0) g/dL RDW (11.5-15.5) % Plt Count (150-450) k/uL MPV Neutrophils % % Lymphocytes % % Monocytes % % Eosinophils % % Basophils % % Neutrophils # (1.3-7.7) k/uL Lymphocytes # (1.0-4.8) k/uL Monocytes # (0-1.0) k/uL Eosinophils # (0-0.7) k/uL Basophils # (0-0.2) k/uL Hypochromasia PT 9.9 (9.0-12.0) sec INR 0.9 (<1.2) APTT 22.6 (22.0-30.0) sec Sodium 134 L (137-145) mmol/L Potassium 3.7 (3.5-5.1) mmol/L Chloride 95 L (98-107) mmol/L Carbon Dioxide 25 (22-30) mmol/L Anion Gap 14 mmol/L BUN 59 H (7-17) mg/dL Creatinine 3.57 H (0.52-1.04) mg/dL Est GFR (CKD-EPI)AfAm 14 (>60 ml/min/1.73 sqM) Est GFR (CKD-EPI)NonAf 12 (>60 ml/min/1.73 sqM) Glucose 41 L* (74-99) mg/dL POC Glucose (mg/dL) (70-110) mg/dL POC Glu Interior Design Teacher ID Calcium 8.4 (8.4-10.2) mg/dL Total Bilirubin 0.9 (0.2-1.3) mg/dL AST 22 (14-36) U/L ALT 12 (4-34) U/L Alkaline Phosphatase 79 (38-126) U/L Troponin I (0.000-0.034) ng/mL Total Protein 6.7 (6.3-8.2) g/dL Albumin 3.7 (3.5-5.0) g/dL Urine Color Light Yellow Urine Appearance Clear (Clear) Urine pH 6.0 (5.0-8.0) Ur Specific Reserve 1.008 (1.001-1.035) Urine Protein 2+ H (Negative) Urine Glucose (UA) Trace H (Negative) Urine Ketones Negative (Negative) Urine Blood Negative (Negative) Urine Nitrite Negative (Negative) Urine Bilirubin Negative (Negative) Urine Urobilinogen <2.0 (<2.0) mg/dL Ur Leukocyte Esterase Trace H (Negative) Urine RBC 1 (0-5) /hpf Urine WBC 3 (0-5) /hpf Ur Squamous Epith Cells <1 (0-4) /hpf Urine Mucus Rare H (None) /hpf Urine Opiates Screen Not Detected (NotDetected) Ur Oxycodone Screen Not Detected (NotDetected) Urine Methadone Screen Not Detected (NotDetected) Ur Propoxyphene Screen Not Detected (NotDetected) Ur Barbiturates Screen Not Detected (NotDetected) U Tricyclic Antidepress Not Detected (NotDetected) Ur Phencyclidine Scrn Not Detected (NotDetected) Ur Amphetamines Screen Not Detected (NotDetected) U Methamphetamines Scrn Not Detected (NotDetected) U Benzodiazepines Scrn Not Detected (NotDetected) Urine Cocaine Screen Not Detected (NotDetected) U Marijuana (THC) Screen Not Detected (NotDetected) 01/11/23 01/11/23 01/11/23 Range/Units 11:29 11:49 12:34 WBC (3.8-10.6) k/uL RBC (3.80-5.40) m/uL Hgb (11.4-16.0) gm/dL Hct (34.0-46.0) % MCV (80.0-100.0) fL MCH (25.0-35.0) pg MCHC (31.0-37.0) g/dL RDW (11.5-15.5) % Plt Count (150-450) k/uL MPV Neutrophils % % Lymphocytes % % Monocytes % % Eosinophils % % Basophils % % Neutrophils # (1.3-7.7) k/uL Lymphocytes # (1.0-4.8) k/uL Monocytes # (0-1.0) k/uL Eosinophils # (0-0.7) k/uL Basophils # (0-0.2) k/uL Hypochromasia PT (9.0-12.0) sec INR (<1.2) APTT (22.0-30.0) sec Sodium (137-145) mmol/L Potassium (3.5-5.1) mmol/L Chloride (98-107) mmol/L Carbon Dioxide (22-30) mmol/L Anion Gap mmol/L BUN (7-17) mg/dL Creatinine (0.52-1.04) mg/dL Est GFR (CKD-EPI)AfAm (>60 ml/min/1.73 sqM) Est GFR (CKD-EPI)NonAf (>60 ml/min/1.73 sqM) Glucose (74-99) mg/dL POC Glucose (mg/dL) 104 98 (70-110) mg/dL POC Glu Interior Design Teacher ID Bucky Spear Lauren Calcium (8.4-10.2) mg/dL Total Bilirubin (0.2-1.3) mg/dL AST (14-36) U/L ALT (4-34) U/L Alkaline Phosphatase (38-126) U/L Troponin I 0.063 H* (0.000-0.034) ng/mL Total Protein (6.3-8.2) g/dL Albumin (3.5-5.0) g/dL Urine Color Urine Appearance (Clear) Urine pH (5.0-8.0) Ur Specific Reserve (1.001-1.035) Urine Protein (Negative) Urine Glucose (UA) (Negative) Urine Ketones (Negative) Urine Blood (Negative) Urine Nitrite (Negative) Urine Bilirubin (Negative) Urine Urobilinogen (<2.0) mg/dL Ur Leukocyte Esterase (Negative) Urine RBC (0-5) /hpf Urine WBC (0-5) /hpf Ur Squamous Epith Cells (0-4) /hpf Urine Mucus (None) /hpf Urine Opiates Screen (NotDetected) Ur Oxycodone Screen (NotDetected) Urine Methadone Screen (NotDetected) Ur Propoxyphene Screen (NotDetected) Ur Barbiturates Screen (NotDetected) U Tricyclic Antidepress (NotDetected) Ur Phencyclidine Scrn (NotDetected) Ur Amphetamines Screen (NotDetected) U Methamphetamines Scrn (NotDetected) U Benzodiazepines Scrn (NotDetected) Urine Cocaine Screen (NotDetected) U Marijuana (THC) Screen (NotDetected) 01/11/23 Range/Units 13:42 WBC (3.8-10.6) k/uL RBC (3.80-5.40) m/uL Hgb (11.4-16.0) gm/dL Hct (34.0-46.0) % MCV (80.0-100.0) fL MCH (25.0-35.0) pg MCHC (31.0-37.0) g/dL RDW (11.5-15.5) % Plt Count (150-450) k/uL MPV Neutrophils % % Lymphocytes % % Monocytes % % Eosinophils % % Basophils % % Neutrophils # (1.3-7.7) k/uL Lymphocytes # (1.0-4.8) k/uL Monocytes # (0-1.0) k/uL Eosinophils # (0-0.7) k/uL Basophils # (0-0.2) k/uL Hypochromasia PT (9.0-12.0) sec INR (<1.2) APTT (22.0-30.0) sec Sodium (137-145) mmol/L Potassium (3.5-5.1) mmol/L Chloride (98-107) mmol/L Carbon Dioxide (22-30) mmol/L Anion Gap mmol/L BUN (7-17) mg/dL Creatinine (0.52-1.04) mg/dL Est GFR (CKD-EPI)AfAm (>60 ml/min/1.73 sqM) Est GFR (CKD-EPI)NonAf (>60 ml/min/1.73 sqM) Glucose (74-99) mg/dL POC Glucose (mg/dL) 78 (70-110) mg/dL POC Glu Interior Design Teacher Bibi [place] Calcium (8.4-10.2) mg/dL Total Bilirubin (0.2-1.3) mg/dL AST (14-36) U/L ALT (4-34) U/L Alkaline Phosphatase (38-126) U/L Troponin I (0.000-0.034) ng/mL Total Protein (6.3-8.2) g/dL Albumin (3.5-5.0) g/dL Urine Color Urine Appearance (Clear) Urine pH (5.0-8.0) Ur Specific Reserve (1.001-1.035) Urine Protein (Negative) Urine Glucose (UA) (Negative) Urine Ketones (Negative) Urine Blood (Negative) Urine Nitrite (Negative) Urine Bilirubin (Negative) Urine Urobilinogen (<2.0) mg/dL Ur Leukocyte Esterase (Negative) Urine RBC (0-5) /hpf Urine WBC (0-5) /hpf Ur Squamous Epith Cells (0-4) /hpf Urine Mucus (None) /hpf Urine Opiates Screen (NotDetected) Ur Oxycodone Screen (NotDetected) Urine Methadone Screen (NotDetected) Ur Propoxyphene Screen (NotDetected) Ur Barbiturates Screen (NotDetected) U Tricyclic Antidepress (NotDetected) Ur Phencyclidine Scrn (NotDetected) Ur Amphetamines Screen (NotDetected) U Methamphetamines Scrn (NotDetected) U Benzodiazepines Scrn (NotDetected) Urine Cocaine Screen (NotDetected) U Marijuana (THC) Screen (NotDetected) Disposition Clinical Impression: Hypertensive urgency, Hypoglycemia, Altered mental status Disposition: [facility] Referrals: Raza Purcell MD [Primary Care Provider] - 1-2 days Time of Disposition: 14:50
[2023-01-11 11:50] LABS: Glucose,Whole Blood 104 mg/dL (70-110)
[2023-01-11] MEDS ORDERED: LABETALOL 5 MG/ML VIAL MDV IVP STA ×2 (11:55→14:56)
[2023-01-11 12:10] LABS: INR 0.9 (<1.2); Partial Thromboplastin Time 22.6 sec (22.0-30.0); Prothrombin Time 9.9 sec (9.0-12.0)
--- NOTE | 2023-01-11 12:20 | XR ---
EXAMINATION TYPE: XR chest 2V DATE OF EXAM: 01/11/2023 COMPARISON: 12/15/2022 HISTORY: Shortness of breath TECHNIQUE: Frontal and lateral views of the chest are obtained. FINDINGS: Scattered senescent parenchymal changes noted. Hyperinflation compatible with COPD. No evidence for infiltrate. No evidence for atelectasis. Heart size is stable. Mediastinal structures are stable and grossly unremarkable. No evidence for hilar prominence. Degenerative changes dorsal spine. IMPRESSION: 1. No evidence for acute pulmonary disease.
--- NOTE | 2023-01-11 12:20 | CT ---
EXAMINATION TYPE: CT brain wo con DATE OF EXAM: 01/11/2023 COMPARISON: 12/15/2022 HISTORY: AMS CT DLP: 1231.[address] of the brain was performed. The ventricles, basal cisterns and sulci overlying the cerebral convexities demonstrate mild enlargem ent. There is no evidence for intracranial hemorrhage or sulcal effacement. Remote infarct left external capsule and putamen. There is decreased attenuation about the periventricular white matter and deep white matter of both c erebral hemispheres, compatible with chronic small vessel ischemia. Differential diagnosis does inclu de demyelination. No mass effects are seen.No midline shift. Osseous calvarium is intact. If symptoms persist consider MRI. IMPRESSION: 1. Age related atrophic and chronic small vessel ischemic change without acute intracranial process s een at this time.
[2023-01-11 12:28] LABS: ALT 12 U/L (4-34); AST 22 U/L (14-36); African American GFR (CKD) 14 (>60 ml/min/1.73 sqM); Albumin 3.7 g/dL (3.5-5.0); Alkaline Phosphatase 79 U/L (38-126); Anion Gap 14 mmol/L; Basophils % (A) 0 %; Blood Urea Nitrogen 59 mg/dL (7-17); Calcium 8.4 mg/dL (8.4-10.2); Carbon Dioxide 25 mmol/L (22-30); Chloride 95 mmol/L (98-107); Eosinophils # (A) 0.1 k/uL (0-0.7); Eosinophils % (A) 1 %; HCT 35.5 % (34.0-46.0); HGB 10.6 gm/dL (11.4-16.0); Hypochromasia Marked; Lymphocytes # (A) 2.4 k/uL (1.0-4.8); Lymphocytes % (A) 20 %; MCH 26.4 pg (25.0-35.0); MCHC 29.7 g/dL (31.0-37.0); Mean Platelet Volume 9.2; Monocytes % (A) 8 %; Neutrophils # (A) 8.5 k/uL (1.3-7.7); Neutrophils % (A) 70 %; Non-African American GFR(CKD) 12 (>60 ml/min/1.73 sqM); Platelet Count 328 k/uL (150-450); Potassium 3.7 mmol/L (3.5-5.1); RDW 14.8 % (11.5-15.5); Sodium 134 mmol/L (137-145); Total Bilirubin 0.9 mg/dL (0.2-1.3); Total Protein 6.7 g/dL (6.3-8.2); WBC 12.2 k/uL (3.8-10.6)
[2023-01-11 12:29] LABS: Glucose 41 mg/dL (74-99); MCV 88.7 fL (80.0-100.0)
[2023-01-11 12:35] LABS: Glucose,Whole Blood 98 mg/dL (70-110)
[2023-01-11 13:10] LABS: Appearance,Urine Clear (Clear); Bilirubin,Urine Negative (Negative); Blood,Urine Negative (Negative); Color,Urine Light Yellow; Glucose,Urine (UA) Trace (Negative); Ketones,Urine Negative (Negative); Leukocyte Esterase,Urine Trace (Negative); Mucus,Urine Rare /hpf; Nitrite,Urine Negative (Negative); Protein,Urine 2+ (Negative); RBC,Urine 1 /hpf (0-5); Specific Gravity,Urine 1.008 (1.001-1.035); Squamous Epithelial Cell,Urine <1 /hpf (0-4); Urobilinogen,Urine <2.0 mg/dL (<2.0); WBC,Urine 3 /hpf (0-5)
[2023-01-11 13:17] LABS: Amphetamine Screen,Urine Not Detected (NotDetected); Barbiturate Screen,Urine Not Detected (NotDetected); Benzodiazepines Screen,Urine Not Detected (NotDetected); Cocaine Screen,Urine Not Detected (NotDetected); Methadone Screen, Urine Not Detected (NotDetected); Opiate Screen,Urine Not Detected (NotDetected); Oxycodone Screen, Urine Not Detected (NotDetected); Phencyclidine Screen,Urine Not Detected (NotDetected); Tricyclic Antidepressant,Urine Not Detected (NotDetected); Urn Cannabinoid Scrn Not Detected (NotDetected)
[2023-01-11 13:44] LABS: Glucose,Whole Blood 78 mg/dL (70-110)
[2023-01-11 14:49] LABS: Glucose,Whole Blood 58 mg/dL (70-110)
[2023-01-11] MEDS ORDERED: CYCLOBENZAPRINE 10 MG TAB PO PRN (14:49)
[2023-01-11] MEDS ORDERED: DIPHENOX-ATROP 2.5-0.025 MG 1 EACH TAB PO PRN (14:49)
[2023-01-11] MEDS ORDERED: DEXTROSE 5%-0.45% NACL 1,000 ML IV ONE (14:51)
[2023-01-11] MEDS ORDERED: DEXTROSE 50% SYRINGE 50 ML IVP PRN (14:54)
[2023-01-11] MEDS ORDERED: ERGOCALCIFEROL 1,250 MCG (50,000 IU) CAPSULE PO SCH (15:00)
[2023-01-11] MEDS: DEXTROSE 50% SYRINGE 50 ML IVP PRN (15:25)
--- NOTE | 2023-01-11 15:36 | P.HPIM ---
History of Present Illness H&P Date: 01/11/23 History of Presenting Illness: Patient is a very pleasant 72-year-old female with a past medical history of ESRD with previous renal transplant in 2016 on antirejection medication currently with stage IV chronic kidney disease, hypertension, hyperlipidemia, insulin-dependent diabetes mellitus, left eye retinal detachment, and right eye retinal bleeds. Patient presented to the emergency department via EMS secondary to family reports of patient having altered mental status. Patient currently alert to person only, slurring words and unable to state place, time, or situation. Information obtained from patient's son via telephone, ED physician, and RN. Patient's son reports patient has been struggling with episodes of recurrent episodes of hypoglycemia at home. He reports EMS was called out to their home yesterday evening secondary to confusion and hypoglycemic event and administered glucose resulting in return of normal mentation. Patient's son reports patient is adamant about taking her insulin regardless of what her blood glucose levels are. He states that she does administer all of her own medications and is very good about checking her blood glucose levels if she feels they are too low or too high but will take her insulin regardless of what her glucose levels are. Patient's son states he is concerned that she may have taken 34 units of her short acting insulin instead of her long-acting insulin. He reports she is normally alert and oriented 4 and does all of her activities of daily living independently. He does report she lives at home with his father/her and has a home care nurse, family support for multiple family members daily, and alevism family support. He reports she had a recent urinary tract infection just over one week ago and it is unclear if she completed her antibiotic. He denies any other recent illnesses are known infections or exposure to known ill contacts. Patient underwent full evaluation in the emergency department. She was found to be alert and oriented to person only.Vital signs reviewed, patient was found to be in hypertensive urgency with blood pressure 204/120, heart rate 80, respiratory rate 16, temp 97.2F, and SpO2 of 100% on room air. Blood glucose 41 and 1 amp of D50 was administered. Labs were then completed and reviewed. CBC showing leukocytosis with WBC count of 12.2 and normocytic anemia with hemoglobin of 10.6. Coagulation profile normal findings. BMP revealing hyponatremia with sodium 134, chloride 95, and consistent with ESRD with CKD stage IV with BUN of 59, creatinine 3.57, and GFR of 12. Urinalysis negative for infection. Urine drug screen negative. TSH normal findings at 3.030. Troponin elevated at 0.063. EKG was completed showing normal sinus rhythm at 81 bpm with no significant T-wave or ST abnormalities showing no signs of acute ischemia upon personal review and interpretation. CT brain without contrast completed and radiology report stating age related atrophic and chronic small vessel ischemic changes negative for acute inter cranial process. Chest x-ray completed negative for acute cardiopulmonary process. Patient was given 1 amp of D50 and started on D5 0.45 infusion and blood glucose levels continued to be low. Discussed patient history, laboratory results, clinical findings, and imaging results in detail with the ED physician. Patient being admitted to general medical unit with telemetry under our services. Review of systems: Pertinent positives and negatives as discussed in HPI, a complete review of systems was performed and all other systems are negative. Physical exam: Vital signs reviewed and stable. General: Nontoxic, no distress and appears stated age. Derm: Skin warm and dry, normal coloration for ethnicity. Head: Atraumatic, normocephalic and symmetric. Eyes: EOMs intact, no lid lag, and anicteric sclera Mouth: no lip lesions, mucus membranes moist Cardiovascular: regular rate and rhythm with normal S1S2, systolic murmur, positive posterior tibial pulses bilaterally, and cap refill < 2 seconds. Lungs: Respirations even, regular, and unlabored on room air. Lungs CTA bilaterally, no rhonchi, no rales, no wheezing, and no accessory muscle usage. Abdominal: soft, nontender to palpation, no guarding, no appreciable organomegaly Ext: ROM intact. No gross muscle atrophy, 2-3+ pitting bilateral lower extremity edema, no contractures Neuro: Speech slurred., face symmetrical. GCS 14. Patient moving all extremities independently and able to sit up in bed with no noted focal deficit. Patient difficult time with following commands. Psych: Alert and oriented to person only, confused to place, time, and situation. Assessment and Plan of Care: Patient is a very pleasant 72-year-old female with a past medical history of ESRD with previous renal transplant in 2016 on antirejection medication currently with stage IV chronic kidney disease, hypertension, hyperlipidemia, insulin-dependent diabetes mellitus, left eye retinal detachment, and right eye retinal bleeds. Patient presented to the emergency department via EMS secondary to family reports of patient having altered mental status. Patient currently alert to person only, slurring words and unable to state place, time, or situation. Information obtained from patient's son via telephone, ED physician, and RN. -Vital signs reviewed, patient was found to be in hypertensive urgency with b lood pressure 204/120, heart rate 80, respiratory rate 16, temp 97.2F, and SpO2 of 100% on room air. -Blood glucose 41 and 1 amp of D50 was administered. Labs were then completed and reviewed. CBC showing leukocytosis with WBC count of 12.2 and normocytic anemia with hemoglobin of 10.6. Coagulation profile normal findings. BMP revealing hyponatremia with sodium 134, chloride 95, and consistent with ESRD with CKD stage IV with BUN of 59, creatinine 3.57, and GFR of 12. Urinalysis negative for infection. Urine drug screen negative. TSH normal findings at 3.030. Troponin elevated at 0.063. -EKG was completed showing normal sinus rhythm at 81 bpm with no significant T- wave or ST abnormalities showing no signs of acute ischemia upon personal review and interpretation. -CT brain without contrast completed and radiology report stating age related atrophic and chronic small vessel ischemic changes negative for acute intercranial process. -Chest x-ray completed negative for acute cardiopulmonary process. -Patient was given 1 amp of D50 and started on D5 0.45 infusion and blood glucose levels continued to be low. -Discussed patient history, laboratory results, clinical findings, and imaging results in detail with the ED physician. Patient being admitted to [facility] with telemetry under our services. Acute metabolic encephalopathy Hypoglycemia, recurrent episodes. Believed to be secondary to insulin administration Insulin-dependent diabetes mellitus -Unclear origin, initially thought alteration in mental status to be secondary to hypoglycemic event, however patient's mentation is not improving with adminis tration of dextrose. -Patient alert and oriented to self only, per family baseline alert and oriented 4. -Neuro checks every 4 hours. -Neurology consulted -Fall precautions -Telemetry monitoring -Glucose checks hourly with glycemic protocol. Orders placed for half amp of D50 (25 mg) to be administered for blood glucose levels less than 70 and 1 amp or 50 mg of D50 to be administered for blood glucose levels less than 50. Hypertensive urgency History of renal transplant on antirejection medication with stage IV chronic kidney disease Hyperlipidemia -Vital signs reviewed. Patient to continue with daily antihypertensive medication regimen with amlodipine 10 mg daily, carvedilol 25 mg twice daily, and clonidine 0.2 mg 3 times daily. -Order placed for tacrolimus level. Patient to continue anti-rejection medications with prednisone 5 mg daily, tacrolimus 3 mg twice daily, and mycophenolate sodium 360 mg twice daily. -Consult placed to nephrology secondary to history of renal transplant and current stage IV chronic kidney disease. -EKG reviewed. -Continue telemetry monitoring with vital signs every 4 hours. The patient is admitted with an anticipated greater than 2 midnight stay for evaluation of acute metabolic encephalopathy and recurrent episodes of hypoglycemia CODE STATUS: Full code DVT prophylaxis: Heparin, Discussed with: Patient, patient's Wong, RN, and ED physician. Anticipated discharge date: Clinical course to determine Anticipated discharge place: Home Patient was seen independently by Nurse Practitioner. This document was prepared using [employer] dictation software. Please allow for errors in cardiac sonographer while rare they do occur. Jaquan Hernandez NP rendered care for this patient independently, reviewed the findings and plan as documented in the note above. I did not physically speak with or examine the patient on this date. Past Medical History Past Medical History: No Reported History, Asthma, Diabetes Mellitus, Dialysis, Eye Disorder, Hyperlipidemia, Hypertension, Renal Disease, Skin Disorder Additional Past Medical History / Comment(s): history of covid, IDDM type II, neuropathy bilateral legs/feet, ESRD with past peritoneal/hemodialysis then in 2016 had renal transplant, UTI with sepsis, IBS, benign colon polyps, chronic low back pain, migraines, R eye retinal bleed with injections, L eye detached retina with surgery, anemia. 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 History of Any Multi-Drug Resistant Organisms: ESBL Date of last positivie culture/infection: 2011 approx(PREVIOUSLY CHARTED) MDRO Source:: peritoneal dialysis cath Past Surgical History: Cholecystectomy, Hysterectomy, Orthopedic Surgery Additional Past Surgical History / Comment(s): Peritoneal dialysis cath since removed, hemodialysis cath since removed, 2016 renal transplant, EGD, colonosco pies/benign polypectomy, bilateral eye cataract removals, L eye detached retinal surgery, L knee arthroscopy Past Anesthesia/Blood Transfusion Reactions: No Reported Reaction Additional Past Anesthesia/Blood Transfusion Reaction / Comment(s): has had a hard time coming out of anesthesia Past Psychological History: No Psychological Hx Reported Smoking Status: Former smoker Past Alcohol Use History: None Reported Past Drug Use History: None Reported - Past Family History Mother History Unknown: Yes Additional Family Medical History / Comment(s): Mother of poisoning when pt was 11 yrs old. Father Family Medical History: Vascular Disorder Additional Family Medical History / Comment(s): brain aneurysm Medications and Allergies Home Medications Medication Instructions Recorded Confirmed Type Atorvastatin Calcium [Lipitor] 10 mg PO HS 08/11/16 01/11/23 History Sodium Bicarbonate Tab 1,300 mg PO TID 08/11/16 01/11/23 History amLODIPine [Norvasc] 10 mg PO DAILY 08/11/16 01/11/23 History predniSONE 5 mg PO DAILY 08/25/17 01/11/23 History Mycophenolate Sodium [Mycophenolic 360 mg PO BID 04/25/20 01/11/23 History Acid] Ergocalciferol [Vitamin D2 (1250 1,250 mcg PO Q7D 10/27/21 01/11/23 History Mcg = 08655 Iu)] Famotidine 40 mg PO DAILY 10/27/21 01/11/23 History carvediloL [Coreg] 25 mg PO BID 10/27/21 01/11/23 History Albuterol Inhaler [Ventolin Hfa 2 puff INHALATION RT-DAILY 11/24/22 01/11/23 History Inhaler] Aspirin EC [Ecotrin Low Dose] 81 mg PO DAILY 11/24/22 01/11/23 History Diphenox-Atrop 2.5-0.025 mg 1 tab PO TID PRN 11/24/22 01/11/23 History [Lomotil] Docusate [Colace] 100 mg PO DAILY PRN 11/24/22 01/11/23 History Gentamicin 0.1% Cream 1 applic TOPICAL DAILY 11/24/22 01/11/23 History Ketoconazole 2% Cream [Nizoral 2%] 1 applic TOPICAL DAILY PRN 11/24/22 01/11/23 History Thiamine [Vitamin B-1] 250 mg PO BID 11/24/22 01/11/23 History traMADol HCL 50 - 100 mg PO Q6H PRN 11/24/22 01/11/23 History cloNIDine HCL [Catapres] 0.2 mg PO TID #90 tab 11/30/22 01/11/23 Rx Furosemide [Lasix] 40 mg PO DAILY #30 tab 12/20/22 01/11/23 Rx Sodium Zirconium Cyclosilicate 10 gm PO BID #60 packet 12/20/22 01/11/23 Rx [Lokelma] Tacrolimus [Prograf] 3 mg PO BID #180 cap 12/20/22 01/11/23 Rx Metaxalone [Skelaxin] 800 mg PO BID PRN 01/11/23 01/11/23 History Folic Acid 1 mg PO DAILY 30 Days #30 tab 01/14/23 Rx Allergies Allergy/AdvReac Type Severity Reaction Status Date / Time hydralazine [From Apresoline] Allergy Rash/Hives Verified 01/11/23 13:52 Iodinated Contrast Media Allergy Unknown Verified 01/11/23 13:52 [Iodinated Contrast- Oral and IV Dye] meperidine [From Demerol] Allergy Anaphylaxis Verified 01/11/23 13:52 Penicillins Allergy Rash/Hives Verified 01/11/23 13:52 Physical Exam Vitals: Vital Signs Temp Pulse Resp BP Pulse Ox 01/11/23 10:40 97.2 F L 80 16 204/120 100 Intake and Output 01/11/23 01/11/23 01/11/23 06:59 14:59 22:59 Other: Weight 81.647 kg Results CBC & Chem 7: 01/13/23 08:17 01/13/23 08:17 Labs: Abnormal Lab Results - Last 24 Hours (Table) 01/11/23 01/11/23 01/11/23 Range/Units 11:18 11:19 11:29 WBC 12.2 H (3.8-10.6) k/uL Hgb 10.6 L (11.4-16.0) gm/dL MCHC 29.7 L (31.0-37.0) g/dL Neutrophils # 8.5 H (1.3-7.7) k/uL Sodium (137-145) mmol/L Chloride (98-107) mmol/L BUN (7-17) mg/dL Creatinine (0.52-1.04) mg/dL Glucose (74-99) mg/dL POC Glucose (mg/dL) 46 L 62 L (70-110) mg/dL Troponin I (0.000-0.034) ng/mL Urine Protein (Negative) Urine Glucose (UA) (Negative) Ur Leukocyte Esterase (Negative) Urine Mucus (None) /hpf 01/11/23 01/11/23 01/11/23 Range/Units 11:29 11:29 11:29 WBC (3.8-10.6) k/uL Hgb (11.4-16.0) gm/dL MCHC (31.0-37.0) g/dL Neutrophils # (1.3-7.7) k/uL Sodium 134 L (137-145) mmol/L Chloride 95 L (98-107) mmol/L BUN 59 H (7-17) mg/dL Creatinine 3.57 H (0.52-1.04) mg/dL Glucose 41 L* (74-99) mg/dL POC Glucose (mg/dL) (70-110) mg/dL Troponin I 0.063 H* (0.000-0.034) ng/mL Urine Protein 2+ H (Negative) Urine Glucose (UA) Trace H (Negative) Ur Leukocyte Esterase Trace H (Negative) Urine Mucus Rare H (None) /hpf 01/11/23 Range/Units 14:43 WBC (3.8-10.6) k/uL Hgb (11.4-16.0) gm/dL MCHC (31.0-37.0) g/dL Neutrophils # (1.3-7.7) k/uL Sodium (137-145) mmol/L Chloride (98-107) mmol/L BUN (7-17) mg/dL Creatinine (0.52-1.04) mg/dL Glucose (74-99) mg/dL POC Glucose (mg/dL) 58 L (70-110) mg/dL Troponin I (0.000-0.034) ng/mL Urine Protein (Negative) Urine Glucose (UA) (Negative) Ur Leukocyte Esterase (Negative) Urine Mucus (None) /hpf
[2023-01-11] MEDS: cloNIDine HCL 0.2 MG TAB PO SCH ×2 (15:49→20:51)
[2023-01-11] MEDS: amLODIPine 10 MG TAB PO SCH (15:49)
[2023-01-11] MEDS: SODIUM BICARBONATE TAB 650 MG TAB PO SCH ×2 (15:49→20:51)
[2023-01-11 16:00] LABS: Glucose,Whole Blood 61 mg/dL (70-110)
[2023-01-11 16:15] LABS: Glucose,Whole Blood 63 mg/dL (70-110)
[2023-01-11 17:28] LABS: Glucose,Whole Blood 92 mg/dL (70-110)
[2023-01-11] MEDS: carvediloL 12.5 MG TAB PO SCH (17:42)
[2023-01-11 18:16] LABS: Glucose,Whole Blood 82 mg/dL (70-110)
[2023-01-11 19:03] LABS: Glucose,Whole Blood 100 mg/dL (70-110)
[2023-01-11 19:59] LABS: Glucose,Whole Blood 92 mg/dL (70-110)
[2023-01-11] MEDS: ATORVASTATIN 10 MG TAB PO SCH (20:51)
[2023-01-11] MEDS: THIAMINE 100 MG TAB PO SCH (20:51)
[2023-01-11] MEDS: MYCOPHENOLATE SODIUM DR 180 MG TABLET.DR PO SCH (20:51)
[2023-01-11] MEDS: TACROLIMUS 1 MG CAP PO SCH (20:52)
[2023-01-11 21:20] LABS: Glucose,Whole Blood 79 mg/dL (70-110)
[2023-01-11 22:11] LABS: Glucose,Whole Blood 63 mg/dL (70-110)
[2023-01-11 23:11] LABS: Glucose,Whole Blood 65 mg/dL (70-110)
[2023-01-11] MEDS: HEPARIN SODIUM,PORCINE 5,000 UNIT/ML 1 ML VIAL SQ SCH (23:38)
[2023-01-12 00:08] LABS: Glucose,Whole Blood 64 mg/dL (70-110)
[2023-01-12 01:27] LABS: Glucose,Whole Blood 63 mg/dL (70-110)
[2023-01-12 02:21] LABS: Glucose,Whole Blood 56 mg/dL (70-110)
[2023-01-12 02:53] LABS: Glucose,Whole Blood 111 mg/dL (70-110)
[2023-01-12 03:05] LABS: Glucose,Whole Blood 103 mg/dL (70-110)
[2023-01-12 04:03] LABS: Glucose,Whole Blood 92 mg/dL (70-110)
[2023-01-12 04:59] LABS: Glucose,Whole Blood 161 mg/dL (70-110)
[2023-01-12 05:03] LABS: Glucose,Whole Blood 104 mg/dL (70-110)
[2023-01-12 06:04] LABS: Glucose,Whole Blood 90 mg/dL (70-110)
[2023-01-12] MEDS: carvediloL 12.5 MG TAB PO SCH ×2 (06:16→16:47)
[2023-01-12 07:04] LABS: Glucose,Whole Blood 81 mg/dL (70-110)
[2023-01-12 08:11] LABS: Glucose,Whole Blood 75 mg/dL (70-110)
[2023-01-12] MEDS: ALBUTEROL NEBULIZED 2.5 MG/3 ML INHALATION SCH (08:43)
[2023-01-12 09:09] LABS: Glucose,Whole Blood 71 mg/dL (70-110)
[2023-01-12 09:27] LABS: HCT 30.4 % (34.0-46.0); HGB 9.5 gm/dL (11.4-16.0); Hypochromasia Moderate; MCH 27.2 pg (25.0-35.0); MCHC 31.2 g/dL (31.0-37.0); MCV 87.2 fL (80.0-100.0); Mean Platelet Volume 9.9; Platelet Count 207 k/uL (150-450); RBC 3.48 m/uL (3.80-5.40); RDW 15.1 % (11.5-15.5)
[2023-01-12 09:52] LABS: ALT 12 U/L (4-34); AST 20 U/L (14-36); African American GFR (CKD) 16 (>60 ml/min/1.73 sqM); Albumin 2.9 g/dL (3.5-5.0); Alkaline Phosphatase 67 U/L (38-126); Anion Gap 10 mmol/L; Blood Urea Nitrogen 55 mg/dL (7-17); Calcium 8.1 mg/dL (8.4-10.2); Carbon Dioxide 25 mmol/L (22-30); Chloride 97 mmol/L (98-107); Magnesium 1.1 mg/dL (1.6-2.3); Non-African American GFR(CKD) 14 (>60 ml/min/1.73 sqM); Potassium 3.4 mmol/L (3.5-5.1); Sodium 132 mmol/L (137-145); Total Bilirubin 0.9 mg/dL (0.2-1.3); Total Protein 5.7 g/dL (6.3-8.2)
[2023-01-12 09:57] LABS: Glucose 47 mg/dL (74-99)
[2023-01-12 10:05] LABS: Glucose,Whole Blood 41 mg/dL (70-110)
[2023-01-12 10:06] LABS: Glucose,Whole Blood 44 mg/dL (70-110)
[2023-01-12] MEDS: DEXTROSE 50% SYRINGE 50 ML IVP PRN (10:08)
[2023-01-12] MEDS ORDERED: POTASSIUM CHLORIDE ER 20 MEQ TAB.ER PO STA (10:40)
--- NOTE | 2023-01-12 10:42 | P.PN ---
Subjective Progress Note Date: 01/12/23 History of Presenting Illness: Patient is a very pleasant 72-year-old female with a past medical history of ESRD with previous renal transplant in 2016 on antirejection medication currently with stage IV chronic kidney disease, hypertension, hyperlipidemia, insulin-dependent diabetes mellitus, left eye retinal detachment, and right eye retinal bleeds. Patient presented to the emergency department via EMS secondary to family reports of patient having altered mental status. Patient currently alert to person only, slurring words and unable to state place, time, or situation. Information obtained from patient's son via telephone, ED physician, and RN. Patient's son reports patient has been struggling with episodes of recurrent episodes of hypoglycemia at home. He reports EMS was called out to their home yesterday evening secondary to confusion and hypoglycemic event and administered glucose resulting in return of normal mentation. Patient's son re ports patient is adamant about taking her insulin regardless of what her blood glucose levels are. He states that she does administer all of her own medications and is very good about checking her blood glucose levels if she feels they are too low or too high but will take her insulin regardless of what her glucose levels are. Patient's son states he is concerned that she may have taken 34 units of her short acting insulin instead of her long-acting insulin. He reports she is normally alert and oriented 4 and does all of her activities of daily living independently. He does report she lives at home with his father/her and has a home care nurse, family support for multiple family members daily, and confucianism family support. He reports she had a recent urinary tract infection just over one week ago and it is unclear if she completed her antibiotic. He denies any other recent illnesses are known infections or exposure to known ill contacts. Patient underwent full evaluation in the emergency department. She was found to be alert and oriented to person only.Vital signs reviewed, patient was found to be in hypertensive urgency with blood pressure 204/120, heart rate 80, respiratory rate 16, temp 97.2F, and SpO2 of 100% on room air. Blood glucose 41 and 1 amp of D50 was administered. Labs were then completed and reviewed. CBC showing leukocytosis with WBC count of 12.2 and normocytic anemia with hemoglobin of 10.6. Coagulation profile normal findings. BMP revealing hyponatremia with sodium 134, chloride 95, and consistent with ESRD with CKD stage IV with BUN of 59, creatinine 3.57, and GFR of 12. Urinalysis negative for infection. Urine drug screen negative. TSH normal findings at 3.030. Troponin elevated at 0.063. EKG was completed showing normal sinus rhythm at 81 bpm with no significant T-wave or ST abnormalities showing no signs of acute ischemia upon personal review and interpretation. CT brain without contrast completed and radiology report stating age related atrophic and chronic small vessel ischemic changes negative for acute intercranial process. Chest x-ray completed negative for acute cardiopulmonary process. Patient was given 1 amp of D50 and started on D5 0.45 infusion and blood glucose levels continued to be low. Patient was admitted to general medical unit with telemetry under our services. She was monitored overnight and continued to have episodes of hypoglycemia and confusion. lispro insulin half- life is 26-52 minutes and would be out of patient's system by this time as it has been greater than 24 hours. Physical exam: Patient seen and evaluated at bedside this morning. RN reports patient having one large episode of diarrhea. we'll place order for C. diff and stool cultures secondary to patient being on antirejection medications. RN currently reports no further episodes. Patient currently alert to person and place this morning, remains confused to situation and time.currently blood glucose 174 status post 2 Amps of D50 due to blood glucose of 44. orders place for D10W infusion at 30 mL's per hour and to continue with hourly glucose checks until glucose is stab le. Nephrology and neurology are following. Vital signs reviewed and stable. General: Nontoxic, no distress and appears stated age. Derm: Skin warm and dry, normal coloration for ethnicity. Head: Atraumatic, normocephalic and symmetric. Eyes: EOMs intact, no lid lag, and anicteric sclera Mouth: no lip lesions, mucus membranes moist Cardiovascular: regular rate and rhythm with normal S1S2, systolic murmur, positive posterior tibial pulses bilaterally, and cap refill < 2 seconds. Lungs: Respirations even, regular, and unlabored on room air. Lungs CTA bilaterally, no rhonchi, no rales, no wheezing, and no accessory muscle usage. Abdominal: soft, nontender to palpation, no guarding, no appreciable organomegaly Ext: ROM intact. No gross muscle atrophy, 2+ pitting bilateral lower extremity edema, no contractures Neuro: Speech slurred., face symmetrical. GCS 14. Patient moving all e xtremities independently and able to sit up in bed with no noted focal deficit. Patient difficult time with following commands. Psych: Alert and oriented to person only, confused to place, time, and situation. Assessment and Plan of Care: Acute metabolic encephalopathy Recurrent episodes of Hypoglycemia. Severe hypomagnesemia Hypokalemia Insulin-dependent diabetes mellitus Hypertensive urgency, resolved blood pressures have stabilized Stage IV chronic kidney disease with history of renal transplant on antirejection medications -Continue Neuro checks every 4 hours. -Neurology consulted, appreciate recommendations -Continue Fall precautions -Continue Telemetry monitoring -Continue Glucose checks hourly with glycemic protocol. Continue treatment with half amp of D50 (25 mg) to be administered for blood glucose levels less than 70 and 1 amp or 50 mg of D50 to be administered for blood glucose levels less than 50. -Blood glucose levels have fluctuated from 41 up to 161 over the past 24 hours, patient has had a total of 12 episodes of hypoglycemia during this time. Morning glucose was 47 and pt again requiring 1 amp 50 mL of D50. Discussed need for transfusion and with bus matron secondary to patient's fluid retention/overload and current renal function. Bottom Precipitator Operator recommended D10W infusion. -Orders place for D10W at 30 mL's per hour with continued hourly glucose checks. -Hypertensive urgency resolved. Initial blood pressure 204/120 and current blood pressure 114/75. -Magnesium was 1.1, orders place for magnesium sulfate 4 g IVPB -Potassium 3.4, orders place for K Dur 40 mEq 1 dose -Orders place for repeat CBC, CMP, and magnesium with morning labs. Abnormal electrolytes values to be replaced as indicated based upon these findings. -Patient to continue with daily antihypertensive medication regimen with amlodipine 10 mg daily, carvedilol 25 mg twice daily, and clonidine 0.2 mg 3 times daily. -Tacrolimus level was ordered and currently pending results. Patient to continu e anti-rejection medications with prednisone 5 mg daily, tacrolimus 3 mg twice daily, and mycophenolate sodium 360 mg twice daily. -Nephrology following and discussed plan of care with bus matron at bedside. -Order placed for C. diff and stool cultures secondary to episode of diarrhea and patient currently on antirejection medications Data review: Vital signs reviewed and stable. Blood pressure 114/75, heart rate 88, respiratory rate 18, temp 97.9F, and SpO2 of 97% on room air. Morning labs reviewed. CBC showing mild normocytic anemia with hemoglobin stable at 9.5. BMP showing hyponatremia with sodium 132, hypokalemia with potassium 3.4, hypochloremia with chloride of 97, BUN 55, creatinine 3.22, and GFR 14. Renal function remains at baseline. Morning glucose 47 and magnesium 1 .1. Troponins were trended and remained elevated but flat inconsistent with stage IV CKD. Imaging review: No new imaging for review at this time. CODE STATUS: Full code DVT prophylaxis: Heparin Discussed with: Patient, RN, and bus matron Anticipated discharge date: Clinical course to determine Anticipated discharge place: Home Patient was seen independently by Nurse Practitioner. This document was prepared using [employer] dictation software. Please allow for errors in beach attendant while rare they do occur. Jaquan Hernandez NP rendered care for this patient independently, reviewed the findings and plan as documented in the note above. I did not physically speak with or examine the patient on this date. Objective - Vital Signs Vital signs: Vital Signs Temp 97.9 F 01/12/23 08:00 Pulse 88 01/12/23 08:00 Resp 18 01/12/23 08:00 BP 114/75 01/12/23 08:00 Pulse Ox 97 01/12/23 08:44 FiO2 Intake & Output 01/11/23 01/12/23 01/12/23 18:59 06:59 18:59 Weight 81.647 kg Other: Voiding Method External Catheter External Catheter - Labs CBC & Chem 7: 01/13/23 08:17 01/13/23 08:17 Labs: Abnormal Lab Results - Last 24 Hours (Table) 01/11/23 01/11/23 01/11/23 Range/Units 11:18 11:19 11:29 WBC 12.2 H (3.8-10.6) k/uL Hgb 10.6 L (11.4-16.0) gm/dL MCHC 29.7 L (31.0-37.0) g/dL Neutrophils # 8.5 H (1.3-7.7) k/uL Sodium (137-145) mmol/L Chloride (98-107) mmol/L BUN (7-17) mg/dL Creatinine (0.52-1.04) mg/dL Glucose (74-99) mg/dL POC Glucose (mg/dL) 46 L 62 L (70-110) mg/dL Hemoglobin A1c (<=6.0) % Troponin I (0.000-0.034) ng/mL Urine Protein (Negative) Urine Glucose (UA) (Negative) Ur Leukocyte Esterase (Negative) Urine Mucus (None) /hpf 01/11/23 01/11/23 01/11/23 Range/Units 11:29 11:29 11:29 WBC (3.8-10.6) k/uL Hgb (11.4-16.0) gm/dL MCHC (31.0-37.0) g/dL Neutrophils # (1.3-7.7) k/uL Sodium 134 L (137-145) mmol/L Chloride 95 L (98-107) mmol/L BUN 59 H (7-17) mg/dL Creatinine 3.57 H (0.52-1.04) mg/dL Glucose 41 L* (74-99) mg/dL POC Glucose (mg/dL) (70-110) mg/dL Hemoglobin A1c (<=6.0) % Troponin I 0.063 H* (0.000-0.034) ng/mL Urine Protein 2+ H (Negative) Urine Glucose (UA) Trace H (Negative) Ur Leukocyte Esterase Trace H (Negative) Urine Mucus Rare H (None) /hpf 01/11/23 01/11/23 01/11/23 Range/Units 11:29 14:43 15:46 WBC (3.8-10.6) k/uL Hgb (11.4-16.0) gm/dL MCHC (31.0-37.0) g/dL Neutrophils # (1.3-7.7) k/uL Sodium (137-145) mmol/L Chloride (98-107) mmol/L BUN (7-17) mg/dL Creatinine (0.52-1.04) mg/dL Glucose (74-99) mg/dL POC Glucose (mg/dL) 58 L (70-110) mg/dL Hemoglobin A1c 8.2 H (<=6.0) % Troponin I 0.073 H* (0.000-0.034) ng/mL Urine Protein (Negative) Urine Glucose (UA) (Negative) Ur Leukocyte Esterase (Negative) Urine Mucus (None) /hpf 01/11/23 01/11/23 01/11/23 Range/Units 15:58 16:14 21:54 WBC (3.8-10.6) k/uL Hgb (11.4-16.0) gm/dL MCHC (31.0-37.0) g/dL Neutrophils # (1.3-7.7) k/uL Sodium (137-145) mmol/L Chloride (98-107) mmol/L BUN (7-17) mg/dL Creatinine (0.52-1.04) mg/dL Glucose (74-99) mg/dL POC Glucose (mg/dL) 61 L 63 L (70-110) mg/dL Hemoglobin A1c (<=6.0) % Troponin I 0.081 H* (0.000-0.034) ng/mL Urine Protein (Negative) Urine Glucose (UA) (Negative) Ur Leukocyte Esterase (Negative) Urine Mucus (None) /[facility] 01/11/23 01/11/23 01/12/23 Range/Units 22:10 23:09 00:05 WBC (3.8-10.6) k/uL Hgb (11.4-16.0) gm/dL MCHC (31.0-37.0) g/dL Neutrophils # (1.3-7.7) k/uL Sodium (137-145) mmol/L Chloride (98-107) mmol/L BUN (7-17) mg/dL Creatinine (0.52-1.04) mg/dL Glucose (74-99) mg/dL POC Glucose (mg/dL) 63 L 65 L 64 L (70-110) mg/dL Hemoglobin A1c (<=6.0) % Troponin I (0.000-0.034) ng/mL Urine Protein (Negative) Urine Glucose (UA) (Negative) Ur Leukocyte Esterase (Negative) Urine Mucus (None) /[facility] 01/12/23 01/12/23 01/12/23 Range/Units 01:26 02:20 02:51 WBC (3.8-10.6) k/uL Hgb (11.4-16.0) gm/dL MCHC (31.0-37.0) g/dL Neutrophils # (1.3-7.7) k/uL Sodium (137-145) mmol/L Chloride (98-107) mmol/L BUN (7-17) mg/dL Creatinine (0.52-1.04) mg/dL Glucose (74-99) mg/dL POC Glucose (mg/dL) 63 L 56 L 111 H (70-110) mg/dL Hemoglobin A1c (<=6.0) % Troponin I (0.000-0.034) ng/mL Urine Protein (Negative) Urine Glucose (UA) (Negative) Ur Leukocyte Esterase (Negative) Urine Mucus (None) /hpf 01/12/23 Range/Units 04:57 WBC (3.8-10.6) k/uL Hgb (11.4-16.0) gm/dL MCHC (31.0-37.0) g/dL Neutrophils # (1.3-7.7) k/uL Sodium (137-145) mmol/L Chloride (98-107) mmol/L BUN (7-17) mg/dL Creatinine (0.52-1.04) mg/dL Glucose (74-99) mg/dL POC Glucose (mg/dL) 161 H (70-110) mg/dL Hemoglobin A1c (<=6.0) % Troponin I (0.000-0.034) ng/mL Urine Protein (Negative) Urine Glucose (UA) (Negative) Ur Leukocyte Esterase (Negative) Urine Mucus (None) /hpf
[2023-01-12 10:56] LABS: Glucose,Whole Blood 174 mg/dL (70-110)
[2023-01-12] MEDS: MYCOPHENOLATE SODIUM DR 180 MG TABLET.DR PO SCH ×2 (11:57→22:26)
[2023-01-12] MEDS: MAGNESIUM SULFATE-D5W PMX 1 GM in DEXTROSE/WATER 1 100ML.BAG IVPB SCH ×3 (11:57→17:14)
[2023-01-12] MEDS: TACROLIMUS 1 MG CAP PO SCH ×2 (11:58→23:58)
[2023-01-12] MEDS: THIAMINE 100 MG TAB PO SCH ×2 (11:58→22:26)
[2023-01-12] MEDS: HEPARIN SODIUM,PORCINE 5,000 UNIT/ML 1 ML VIAL SQ SCH ×3 (11:59→23:58)
[2023-01-12] MEDS: amLODIPine 10 MG TAB PO SCH (11:59)
[2023-01-12] MEDS: FUROSEMIDE 40 MG TAB PO SCH (11:59)
[2023-01-12] MEDS: ASPIRIN 81 MG PO SCH (11:59)
[2023-01-12] MEDS: SODIUM BICARBONATE TAB 650 MG TAB PO SCH ×3 (11:59→22:26)
[2023-01-12] MEDS: predniSONE 5 MG TAB PO SCH (11:59)
[2023-01-12] MEDS: FAMOTIDINE 20 MG TAB PO SCH (12:00)
[2023-01-12] MEDS ORDERED: DEXTROSE 10% IN WATER 500 ML in EMPTY BAG 1 BAG IV SCH (12:00)
[2023-01-12] MEDS: cloNIDine HCL 0.2 MG TAB PO SCH ×3 (12:00→22:27)
[2023-01-12 12:11] LABS: Glucose,Whole Blood 128 mg/dL (70-110)
--- NOTE | 2023-01-12 12:15 | P.NPCON ---
History of Present Illness - Reason for Consult chronic renal failure - History of Present Illness Reason for consult: Chronic kidney disease History of present illness: Patient is a 72-year-old female seen in renal consultation for chronic kidney disease and renal transplant management. Patient has chronic kidney disease stage IV with baseline creatinine near 3-3.5. GFR is at baseline. Patient came to the hospital due to altered mental status. Patient is currently resting in bed. She is somewhat slow to respond. She has been hypoglycemic and is currently receiving D5 half-normal saline. It is noted the patient was having recurrent episodes of hypoglycemia at home. There is concern that she took the short acting Lantus insulin long-acting Lantus. Patient handles her own medications. CT of the brain showed no acute changes. Chest x-ray showed no evidence of acute cardiopulmonary disease. Patient's blood pressure was as high as 204/120 on admission yesterday and most recent reading was 114/75. Her home antihypertensives have been resumed. No chest pain or shortness of breath. Has been voiding. No gross hematuria. Vital signs are stable. General: No acute distress. HEENT: Head exam is unremarkable. LUNGS: No audible rhonchi or wheezes. HEART: Rate and Rhythm are regular. ABDOMEN: Soft, nontender. EXTREMITITES: 1+ edema. Past Medical History Past Medical History: No Reported History, Asthma, Diabetes Mellitus, Dialysis, Eye Disorder, Hyperlipidemia, Hypertension, Renal Disease, Skin Disorder Additional Past Medical History / Comment(s): history of covid, IDDM type II, neuropathy bilateral legs/feet, ESRD with past peritoneal/hemodialysis then in 2016 had renal transplant, UTI with sepsis, IBS, benign colon polyps, chronic low back pain, migraines, R eye retinal bleed with injections, L eye detached retina with surgery, anemia. 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 History of Any Multi-Drug Resistant Organisms: ESBL Date of last positivie culture/infection: 2011 approx(PREVIOUSLY CHARTED) MDRO Source:: peritoneal dialysis cath Past Surgical History: Cholecystectomy, Hysterectomy, Orthopedic Surgery Additional Past Surgical History / Comment(s): Peritoneal dialysis cath since removed, hemodialysis cath since removed, 2016 renal transplant, EGD, colonoscop ies/benign polypectomy, bilateral eye cataract removals, L eye detached retinal surgery, L knee arthroscopy Past Anesthesia/Blood Transfusion Reactions: No Reported Reaction Additional Past Anesthesia/Blood Transfusion Reaction / Comment(s): has had a hard time coming out of anesthesia Smoking Status: Former smoker - Past Family History Mother History Unknown: Yes Additional Family Medical History / Comment(s): Mother of poisoning when pt was 11 yrs old. Father Family Medical History: Vascular Disorder Additional Family Medical History / Comment(s): brain aneurysm Medications and Allergies Home Medications Medication Instructions Recorded Confirmed Type Atorvastatin Calcium [Lipitor] 10 mg PO HS 08/11/16 01/11/23 History Sodium Bicarbonate Tab 1,300 mg PO TID 08/11/16 01/11/23 History amLODIPine [Norvasc] 10 mg PO DAILY 08/11/16 01/11/23 History predniSONE 5 mg PO DAILY 08/25/17 01/11/23 History Insulin Lispro [humaLOG Kwikpen] See Protocol SQ AC-TID 04/25/20 01/11/23 History Mycophenolate Sodium [Mycophenolic 360 mg PO BID 04/25/20 01/11/23 History Acid] Ergocalciferol [Vitamin D2 (1250 1,250 mcg PO Q7D 10/27/21 01/11/23 History Mcg = 28873 Iu)] Famotidine 40 mg PO DAILY 10/27/21 01/11/23 History carvediloL [Coreg] 25 mg PO BID 10/27/21 01/11/23 History Albuterol Inhaler [Ventolin Hfa 2 puff INHALATION RT-DAILY 11/24/22 01/11/23 History Inhaler] Aspirin EC [Ecotrin Low Dose] 81 mg PO DAILY 11/24/22 01/11/23 History Diphenox-Atrop 2.5-0.025 mg 1 tab PO TID PRN 11/24/22 01/11/23 History [Lomotil] Docusate [Colace] 100 mg PO DAILY PRN 11/24/22 01/11/23 History Gentamicin 0.1% Cream 1 applic TOPICAL DAILY 11/24/22 01/11/23 History Ketoconazole 2% Cream [Nizoral 2%] 1 applic TOPICAL DAILY PRN 11/24/22 01/11/23 History Thiamine [Vitamin B-1] 250 mg PO BID 11/24/22 01/11/23 History traMADol HCL 50 - 100 mg PO Q6H PRN 11/24/22 01/11/23 History cloNIDine HCL [Catapres] 0.2 mg PO TID #90 tab 11/30/22 01/11/23 Rx Furosemide [Lasix] 40 mg PO DAILY #30 tab 12/20/22 01/11/23 Rx Insulin Glargine,Hum.rec.anlog 8 units SQ DAILY #3 each 12/20/22 01/11/23 Rx [Lantus Solostar Pen] Sodium Zirconium Cyclosilicate 10 gm PO BID #60 packet 12/20/22 01/11/23 Rx [Lokelma] Tacrolimus [Prograf] 3 mg PO BID #180 cap 12/20/22 01/11/23 Rx Metaxalone [Skelaxin] 800 mg PO BID PRN 01/11/23 01/11/23 History Allergies Allergy/AdvReac Type Severity Reaction Status Date / Time hydralazine [From Apresoline] Allergy Rash/Hives Verified 01/11/23 13:52 Iodinated Contrast Media Allergy Unknown Verified 01/11/23 13:52 [Iodinated Contrast- Oral and IV Dye] meperidine [From Demerol] Allergy Anaphylaxis Verified 01/11/23 13:52 Penicillins Allergy Rash/Hives Verified 01/11/23 13:52 Physical Exam Vitals: Vital Signs Temp Pulse Pulse Resp BP BP Pulse Ox 01/12/23 08:44 97 01/12/23 08:00 97.9 F 88 18 114/75 97 01/12/23 04:00 83 16 152/78 97 01/12/23 00:00 80 16 137/84 100 01/11/23 20:00 97.9 F 73 16 115/66 92 L 01/11/23 18:00 97.7 F 75 16 160/75 95 01/11/23 15:00 81 16 189/90 96 Intake and Output 01/11/23 01/12/23 01/12/23 22:59 06:59 14:59 Other: Voiding Method External Catheter External Catheter External Catheter Weight 81.647 kg Results - Lab Results Most recent lab results Calcium 8.1 mg/dL (8.4-10.2) L 01/12/23 08:47 Magnesium 1.1 mg/dL (1.6-2.3) L 01/12/23 08:47 01/12/23 08:47 08/09/23 08:47 Assessment and Plan Plan: Assessment: 1. Chronic kidney disease stage IV secondary to long-term calcineurin inhibitor use and solitary kidney as well as diabetic kidney disease and cardiorenal syndrome. GFR near baseline. 2. Status post donor renal allograft in 2016. 3. Chronic systolic CHF with ejection fraction of 40-45% with mild to moderate mitral regurgitation and moderate tricuspid regurgitation. 4. Diabetes mellitus with hypoglycemia. 5. Hypertension with chronic kidney disease. Controlled. 6. Hypokalemia from diuresis and hypomagnesemia. 7. Hypomagnesemia from diuresis and GI losses. Plan: Change D5 half-normal saline to D10 drip at 25 mL an hour. Maintain oral Lasix. Replace potassium and magnesium. Avoid nephrotoxins. Follow-up Prograf level. Continue to monitor renal function and urine output. Hold clonidine for systolic blood pressure less than 125. Thank you for the consultation. I will continue to follow the patient with you during her hospital stay.
[2023-01-12 13:13] LABS: Glucose,Whole Blood 135 mg/dL (70-110)
[2023-01-12 14:13] LABS: Glucose,Whole Blood 180 mg/dL (70-110)
[2023-01-12 15:08] LABS: Glucose,Whole Blood 169 mg/dL (70-110)
[2023-01-12 16:00] LABS: Glucose,Whole Blood 184 mg/dL (70-110)
[2023-01-12 18:08] LABS: Glucose,Whole Blood 209 mg/dL (70-110)
[2023-01-12 19:28] LABS: Glucose,Whole Blood 259 mg/dL (70-110)
[2023-01-12 20:17] LABS: Glucose,Whole Blood 293 mg/dL (70-110)
[2023-01-12 21:03] LABS: Glucose,Whole Blood 304 mg/dL (70-110)
[2023-01-12] MEDS ORDERED: DEXTROSE 50% SYRINGE 50 ML IVP PRN ×2 (21:46)
[2023-01-12 22:03] LABS: Glucose,Whole Blood 263 mg/dL (70-110)
--- NOTE | 2023-01-12 22:22 | US ---
EXAMINATION TYPE: US carotid duplex BILAT DATE OF EXAM: 01/12/2023 COMPARISON: NONE CLINICAL INDICATION: Female, 72 years old with history of Speech difficulty; TECHNIQUE: Carotid duplex ultrasound examination. Indirect Doppler criteria was utilized. FINDINGS: EXAM MEASUREMENTS: RIGHT: Peak Systolic Velocity (PSV) cm/sec ----- Right CCA: 33.9 ----- Right ICA: 53.1 ----- Right ECA: 61.0 ICA/CCA ratio: 1.6 RIGHT: End Diastole cm/sec ----- Right CCA: 6.9 ----- Right ICA: 19.1 ----- Right ECA: 0.0 LEFT: Peak Systolic Velocity (PSV) cm/sec ----- Left CCA: 43.5 ----- Left ICA: 100.8 ----- Left ECA: 39.4 ICA/CCA ratio: 2.3 LEFT: End Diastole cm/sec ----- Left CCA: 13.9 ----- Left ICA: 25.8 ----- Left ECA: 0.0 VERTEBRALS (direction of flow): Right Vertebral: Antegrade Left Vertebral: Antegrade Rhythm: Normal FLOOR AND WALL APPLIER LIQUID NOTES: No elevated velocities. Mild wall thickening seen bilaterally. Small amount of pl aque in bilateral bulbs and posterior left mid CCA. IMPRESSION: No hemodynamically significant internal carotid artery stenosis on either side. Criteria for Assigning % of Stenosis / Diameter reduction (Estimation based on the indirect measurements of the internal carotid artery velocities (ICA PSV). 1. Normal (no stenosis)=ICA PSV < 125 cm/s: ratio < 2.0: ICA EDV<40 cm/s. 2. Less than 50% stenosis=ICA PSV < 125 cm/s: ratio < 2.0: ICA EDV<40 cm/s. 3. 50 to 69% stenosis=ICA PSV of 125 to 230 cm/s: ration 2.0 ? 4.0: ICA EDV 40-100 cm/s. 4. Greater than 70% stenosis to near occlusion= ICA PSV > 230 cm/s: ratio > 4.0: ICA EDV > 100 cm/s. 5. Near occlusion= ICA PSV velocities may be low or undetectable: variable ratio and ICA EDV. 6. Total occlusion=unable to detect flow.
[2023-01-12] MEDS: ATORVASTATIN 10 MG TAB PO SCH (22:26)
[2023-01-12 23:06] LABS: Glucose,Whole Blood 383 mg/dL (70-110)
[2023-01-12] MEDS: INSULIN ASPART (NovoLOG) 100 UNIT/ML VIAL SQ SCH (23:59)
[2023-01-13 00:01] LABS: Glucose,Whole Blood 283 mg/dL (70-110)
[2023-01-13 01:29] LABS: Glucose,Whole Blood 331 mg/dL (70-110)
[2023-01-13 02:12] LABS: Glucose,Whole Blood 328 mg/dL (70-110)
[2023-01-13] MEDS: INSULIN ASPART (NovoLOG) 100 UNIT/ML VIAL SQ SCH ×5 (02:27→20:32)
[2023-01-13 03:03] LABS: Glucose,Whole Blood 296 mg/dL (70-110)
[2023-01-13 04:06] LABS: Glucose,Whole Blood 294 mg/dL (70-110)
[2023-01-13 05:01] LABS: Glucose,Whole Blood 171 mg/dL (70-110)
[2023-01-13 06:07] LABS: Glucose,Whole Blood 129 mg/dL (70-110)
[2023-01-13] MEDS: carvediloL 12.5 MG TAB PO SCH ×2 (06:25→17:16)
[2023-01-13 07:04] LABS: Glucose,Whole Blood 98 mg/dL (70-110)
[2023-01-13 07:31] LABS: Glucose,Whole Blood 100 mg/dL (70-110)
[2023-01-13 08:21] LABS: Glucose,Whole Blood 110 mg/dL (70-110)
[2023-01-13 09:01] LABS: HCT 25.4 % (34.0-46.0); HGB 8.2 gm/dL (11.4-16.0); Hypochromasia Moderate; MCH 28.3 pg (25.0-35.0); MCHC 32.1 g/dL (31.0-37.0); MCV 87.9 fL (80.0-100.0); Mean Platelet Volume 11.5; Platelet Count 144 k/uL (150-450); RDW 15.5 % (11.5-15.5)
[2023-01-13 09:12] LABS: ALT 12 U/L (4-34); AST 19 U/L (14-36); African American GFR (CKD) 17 (>60 ml/min/1.73 sqM); Albumin 2.5 g/dL (3.5-5.0); Alkaline Phosphatase 67 U/L (38-126); Anion Gap 8 mmol/L; Blood Urea Nitrogen 53 mg/dL (7-17); Calcium 8.5 mg/dL (8.4-10.2); Carbon Dioxide 25 mmol/L (22-30); Chloride 98 mmol/L (98-107); Glucose 112 mg/dL (74-99); Magnesium 2.2 mg/dL (1.6-2.3); Non-African American GFR(CKD) 15 (>60 ml/min/1.73 sqM); Potassium 3.8 mmol/L (3.5-5.1); Sodium 131 mmol/L (137-145); Total Bilirubin 0.7 mg/dL (0.2-1.3); Total Protein 4.9 g/dL (6.3-8.2)
[2023-01-13 09:19] LABS: Glucose,Whole Blood 146 mg/dL (70-110)
[2023-01-13] MEDS: ALBUTEROL NEBULIZED 2.5 MG/3 ML INHALATION SCH (09:48)
--- NOTE | 2023-01-13 10:05 | P.CNNES ---
History of Present Illness Consult date: 01/12/23 Requesting physician: Jaquan Hernandez Reason for Consult: confusion init thought to be low blood sugar does not improve with glucose History of Present Illness: Patient is a 72-year-old female with history of diabetes, kidney transplant, on immunosuppression, came to the hospital by ambulance yesterday at 10:39 AM for altered mental status. Patient not able to provide history, I spoke to patient's son bruce on the phone. He says that the nurse came over at home to set the pills and she noticed that patient was not able to speak in complete sentences. She was asking the nurse for help. Therefore they called the am bulance and patient was brought to the hospital. Patient/family denies any history of slurred speech, facial droop, visual disturbance or focal weakness. As per EMS flow sheet, when they arrived, patient was confused, lethargic, alert and oriented 3. Visiting nurse at the scene states that patient has become more lethargic throughout the morning since around 8 AM. The nurse mentioned that she was diagnosed with UTI about a week and a half ago. Patient has been taking her antibiotics as prescribed. She does have type 2 diabetes and her blood glucose was 150. Stroke scale was negative. Vitals at the scene was blood pressure 229/129, which improved to 145/73, pulse rate 82, respiration 18, saturation 100%. Patient's blood test shows WBC 12.2, hemoglobin 10.6, normal platelets, PT/PTT. Sodium 134 potassium 3.7, BUN 59, creatinine 3.57. No post was 41 on arrival. Hepatic panel normal, troponin borderline 0.063. TSH normal, UA negative, urine drug screen negative. Patient's blood sugar has been running low around 63-79. Even this morning, her glucose was 47 on the Chem-7 at 9 AM and then fingerstick glucose was 44 and 41 at 10:[address] head revealed age-related atrophic and chronic small vessel ischemic changes without acute process. Patient's son mentions that patient complained of abdominal pain on 01/08/2023. On 01/10/2023 she was not seeing much, staring off in space. At around 3:30 PM, they called the ambulance and patient was found to have low blood sugar. Patient was given some glucose tablets at her symptoms improved. Patient's son brought her German food and she ate it well. Yesterday on Tuesday, when the visiting nurse came, noticed symptoms as mentioned above, therefore they called the ambulance. Her blood sugar at the scene was 84 as per patient's son. Patient's son has mentioned that whenever her blood sugar goes low, she cannot complete sentences and then she does not get complete control of her mind. Patient was recently admitted to the hospital from 12/15/2022 to 12/20/2022 for acute on chronic systolic congestive heart failure with EF 40-45% with severe pulmonary hypertension, acute kidney injury on chronic renal disease, toxic metabolic encephalopathy. Patient had a prior admission from 11/23/2022 through 11/30/2022 for severe sepsis likely secondary to community acquired pneumonia versus aspiration pneumonia, non-ST elevation NE, demand ischemia, acute metabolic encephalopathy, acute kidney injury and some electrolyte imbalance. Patient's son mentions that with the last admission, she was diagnosed with UTI. She was supposed to continue antibiotics, but mistakenly antibiotics were held and they were told that the UTI may have come back. Patient's son also mentions that patient was seen by Dr. Purcell, who increased the dose of insulin from 10 up to 34 units on 12/20/2022 admission. Patient's son states that besides these 2 events of hypoglycemia, in her lifetime, maybe once she had EMS called for hypoglycemia. Usually her sugar runs high. Her last hemoglobin A1c 8.2 on 01/11/2023 whereas prior was 7.2 on 12/16/2022, and 6.3 on 11/25/2022. Patient has history of diabetes for last 42 years also has history of kidney transplant 7-8 years ago. Patient used to smoke 1 pack every 2 or 3 days, but quit tobacco in 1989. Does not drink. patient lives with her . Patient' s son check on her every morning and patient's grandson check on her every p.m. Patient at home walks with a cane. 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 Review of Systems Constitutional: Reports chills (Always cold), Reports weight loss, Denies fever Eyes: denies blurred vision, denies diplopia, denies pain Ears: deny: decreased hearing, earache Ears, nose, mouth and throat: Denies headache, Denies sore throat Cardiovascular: Reports shortness of breath, Denies chest pain Respiratory: Denies cough, Denies excessive sputum Gastrointestinal: Reports diarrhea, Denies abdominal pain, Denies nausea, Denies vomiting Genitourinary: Denies dysuria, Denies hematuria Musculoskeletal: Reports low back pain, Reports neck pain (Last week), Denies myalgias Integumentary: Denies pruritus, Denies rash Neurological: Reports as per HPI Psychiatric: Reports anxiety, Denies depression Endocrine: Reports fatigue, Reports weight change Past Medical History Past Medical History: No Reported History, Asthma, Diabetes Mellitus, Dialysis, Eye Disorder, Hyperlipidemia, Hypertension, Renal Disease, Skin Disorder Additional Past Medical History / Comment(s): history of covid, IDDM type II, neuropathy bilateral legs/feet, ESRD with past peritoneal/hemodialysis then in 2015 had renal transplant, UTI with sepsis, IBS, benign colon polyps, chronic low back pain, migraines, R eye retinal bleed with injections, L eye detached retina with surgery, anemia. 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 History of Any Multi-Drug Resistant Organisms: ESBL Date of last positivie culture/infection: 2011 approx(PREVIOUSLY CHARTED) MDRO Source:: peritoneal dialysis cath Past Surgical History: Cholecystectomy, Hysterectomy, Orthopedic Surgery Additional Past Surgical History / Comment(s): Peritoneal dialysis cath since removed, hemodialysis cath since removed, 2016 renal transplant, EGD, colonoscopies/benign polypectomy, bilateral eye cataract removals, L eye detached retinal surgery, L knee arthroscopy Past Anesthesia/Blood Transfusion Reactions: No Reported Reaction Additional Past Anesthesia/Blood Transfusion Reaction / Comment(s): has had a hard time coming out of anesthesia Smoking Status: Former smoker - Past Family History Mother History Unknown: Yes Additional Family Medical History / Comment(s): Mother of poisoning when pt was 11 yrs old. Father Family Medical History: Vascular Disorder Additional Family Medical History / Comment(s): brain aneurysm Medications and Allergies Home Medications Medication Instructions Recorded Confirmed Type Atorvastatin Calcium [Lipitor] 10 mg PO HS 08/11/16 01/11/23 History Sodium Bicarbonate Tab 1,300 mg PO TID 08/11/16 01/11/23 History amLODIPine [Norvasc] 10 mg PO DAILY 08/11/16 01/11/23 History predniSONE 5 mg PO DAILY 08/25/17 01/11/23 History Insulin Lispro [humaLOG Kwikpen] See Protocol SQ AC-TID 04/25/20 01/11/23 History Mycophenolate Sodium [Mycophenolic 360 mg PO BID 04/25/20 01/11/23 History Acid] Ergocalciferol [Vitamin D2 (1250 1,250 mcg PO Q7D 10/27/21 01/11/23 History Mcg = 77280 Iu)] Famotidine 40 mg PO DAILY 10/27/21 01/11/23 History carvediloL [Coreg] 25 mg PO BID 10/27/21 01/11/23 History Albuterol Inhaler [Ventolin Hfa 2 puff INHALATION RT-DAILY 11/24/22 01/11/23 History Inhaler] Aspirin EC [Ecotrin Low Dose] 81 mg PO DAILY 11/24/22 01/11/23 History Diphenox-Atrop 2.5-0.025 mg 1 tab PO TID PRN 11/24/22 01/11/23 History [Lomotil] Docusate [Colace] 100 mg PO DAILY PRN 11/24/22 01/11/23 History Gentamicin 0.1% Cream 1 applic TOPICAL DAILY 11/24/22 01/11/23 History Ketoconazole 2% Cream [Nizoral 2%] 1 applic TOPICAL DAILY PRN 11/24/22 01/11/23 History Thiamine [Vitamin B-1] 250 mg PO BID 11/24/22 01/11/23 History traMADol HCL 50 - 100 mg PO Q6H PRN 11/24/22 01/11/23 History cloNIDine HCL [Catapres] 0.2 mg PO TID #90 tab 11/30/22 01/11/23 Rx Furosemide [Lasix] 40 mg PO DAILY #30 tab 12/20/22 01/11/23 Rx Insulin Glargine,Hum.rec.anlog 8 units SQ DAILY #3 each 12/20/22 01/11/23 Rx [Lantus Solostar Pen] Sodium Zirconium Cyclosilicate 10 gm PO BID #60 packet 12/20/22 01/11/23 Rx [Lokelma] Tacrolimus [Prograf] 3 mg PO BID #180 cap 12/20/22 01/11/23 Rx Metaxalone [Skelaxin] 800 mg PO BID PRN 01/11/23 01/11/23 History Allergies Allergy/AdvReac Type Severity Reaction Status Date / Time hydralazine [From Apresoline] Allergy Rash/Hives Verified 01/11/23 13:52 Iodinated Contrast Media Allergy Unknown Verified 01/11/23 13:52 [Iodinated Contrast- Oral and IV Dye] meperidine [From Demerol] Allergy Anaphylaxis Verified 01/11/23 13:52 Penicillins Allergy Rash/Hives Verified 01/11/23 13:52 Physical Examination - Vital Signs Vital Signs: Vital Signs Temp Pulse Resp BP Pulse Ox 01/12/23 14:00 88 01/12/23 08:44 97 01/12/23 08:00 97.9 F 88 18 114/75 97 01/12/23 04:00 83 16 152/78 97 01/12/23 00:00 80 16 137/84 100 01/11/23 20:00 97.9 F 73 16 115/66 92 L 01/11/23 18:00 97.7 F 75 16 160/75 95 Intake and Output 01/12/23 01/12/23 01/12/23 06:59 14:59 22:59 Intake Total 120 Balance 120 Intake: Oral 120 Other: Voiding Method External Catheter External Catheter # Bowel Movements 2 Patient is an elderly Afro-Niuean female, who is laying in the bed, somewhat confused. Patient at times stutters. Patient is laying on the right side. Patient appears encephalopathic, but on alerting, patient did become alert awake knows that she is in [facility] in [facility]. She states it is September and the year is . She knows name of the current president Mr. Sosa and her date of . Speech and language functions are normal. Patient can name common objects like a ear, pen, eyeglasses, but could not name knuckles of the earlobe. She would continuously say "fingers" and "ear" respectively. She can repeat very well. No obvious aphasia or dysarthria, although patient does stutter at times. Attention, concentration is slightly limited and fund of knowledge is mild to moderately impaired. Detail cognitive function testing deferred. On cranial nerve examination, pupils are equal, round and reacting to light, visual carmona are full on confrontation, with no neglect on double simultaneous stimulation. Extraocular muscles are intact with no nystagmus. Face is symmetric, tongue protrudes to the midline. Palatal elevation and sensation normal, hearing and shoulder shrug normal, facial sensation normal. On muscle strength testing, there is no pronator drift and the strength is hussein l in arms distally and proximally. In the lower limbs, her hip flexion is between 4 to 4-bilaterally, but ankle dorsiflexion is normal. Deep tendon reflexes are symmetric 1+ at the biceps, 1 brachioradialis, 1 at the knees and plantars are flat. Sensory to touch is equal with no neglect on double simultaneous stimulation. Cerebellar function showed no ataxia for [id number] testing. No ataxia for [id number] testing on either side. Tone and bulk of muscles normal. Gait deferred.. On general examination, there is no carotid bruit or murmur, S1-S2 audible. Chest is clear on consultation. Abdomen is soft nontender. No organomegaly, bowel sounds present. Peripheral pulses are present. No edema. Results - Laboratory Findings CBC and BMP: 01/13/23 08:17 01/13/23 08:17 Abnormal Lab Findings: Abnormal Labs 01/11/23 01/11/23 01/11/23 11:18 11:19 11:29 WBC 12.2 H RBC Hgb 10.6 L Hct MCHC 29.7 L Neutrophils # 8.5 H Sodium Potassium Chloride BUN Creatinine Glucose POC Glucose (mg/dL) 46 L 62 L Hemoglobin A1c Calcium Magnesium Troponin I Total Protein Albumin Urine Protein Urine Glucose (UA) Ur Leukocyte Esterase Urine Mucus 01/11/23 01/11/23 01/11/23 11:29 11:29 11:29 WBC RBC Hgb Hct MCHC Neutrophils # Sodium 134 L Potassium Chloride 95 L BUN 59 H Creatinine 3.57 H Glucose 41 L* POC Glucose (mg/dL) Hemoglobin A1c Calcium Magnesium Troponin I 0.063 H* Total Protein Albumin Urine Protein 2+ H Urine Glucose (UA) Trace H Ur Leukocyte Esterase Trace H Urine Mucus Rare H 01/11/23 01/11/23 01/11/23 11:29 14:43 15:46 WBC RBC Hgb Hct MCHC Neutrophils # Sodium Potassium Chloride BUN Creatinine Glucose POC Glucose (mg/dL) 58 L Hemoglobin A1c 8.2 H Calcium Magnesium Troponin I 0.073 H* Total Protein Albumin Urine Protein Urine Glucose (UA) Ur Leukocyte Esterase Urine Mucus 01/11/23 01/11/23 01/11/23 15:58 16:14 21:54 WBC RBC Hgb Hct MCHC Neutrophils # Sodium Potassium Chloride BUN Creatinine Glucose POC Glucose (mg/dL) 61 L 63 L Hemoglobin A1c Calcium Magnesium Troponin I 0.081 H* Total Protein Albumin Urine Protein Urine Glucose (UA) Ur Leukocyte Esterase Urine Mucus 01/11/23 01/11/23 01/12/23 22:10 23:09 00:05 WBC RBC Hgb Hct MCHC Neutrophils # Sodium Potassium Chloride BUN Creatinine Glucose POC Glucose (mg/dL) 63 L 65 L 64 L Hemoglobin A1c Calcium Magnesium Troponin I Total Protein Albumin Urine Protein Urine Glucose (UA) Ur Leukocyte Esterase Urine Mucus 01/12/23 01/12/23 01/12/23 01:26 02:20 02:51 WBC RBC Hgb Hct MCHC Neutrophils # Sodium Potassium Chloride BUN Creatinine Glucose POC Glucose (mg/dL) 63 L 56 L 111 H Hemoglobin A1c Calcium Magnesium Troponin I Total Protein Albumin Urine Protein Urine Glucose (UA) Ur Leukocyte Esterase Urine Mucus 01/12/23 01/12/23 01/12/23 04:57 08:47 08:47 WBC RBC 3.48 L Hgb 9.5 L Hct 30.4 L MCHC Neutrophils # Sodium Potassium Chloride BUN Creatinine Glucose POC Glucose (mg/dL) 161 H Hemoglobin A1c Calcium Magnesium Troponin I 0.090 H* Total Protein Albumin Urine Protein Urine Glucose (UA) Ur Leukocyte Esterase Urine Mucus 01/12/23 01/12/23 01/12/23 08:47 10:04 10:05 WBC RBC Hgb Hct MCHC Neutrophils # Sodium 132 L Potassium 3.4 L Chloride 97 L BUN 55 H Creatinine 3.22 H Glucose 47 L* POC Glucose (mg/dL) 41 L 44 L Hemoglobin A1c Calcium 8.1 L Magnesium 1.1 L Troponin I Total Protein 5.7 L Albumin 2.9 L Urine Protein Urine Glucose (UA) Ur Leukocyte Esterase Urine Mucus 01/12/23 01/12/23 01/12/23 10:55 12:10 13:02 WBC RBC Hgb Hct MCHC Neutrophils # Sodium Potassium Chloride BUN Creatinine Glucose POC Glucose (mg/dL) 174 H 128 H 135 H Hemoglobin A1c Calcium Magnesium Troponin I Total Protein Albumin Urine Protein Urine Glucose (UA) Ur Leukocyte Esterase Urine Mucus 01/12/23 01/12/23 01/12/23 14:12 14:56 15:58 WBC RBC Hgb Hct MCHC Neutrophils # Sodium Potassium Chloride BUN Creatinine Glucose POC Glucose (mg/dL) 180 H 169 H 184 H Hemoglobin A1c Calcium Magnesium Troponin I Total Protein Albumin Urine Protein Urine Glucose (UA) Ur Leukocyte Esterase Urine Mucus Assessment and Plan Assessment: * Altered mental status, likely due to hypoglycemia. Patient has frequent episodes of hypoglycemia. Rule out any other potential cause of metabolic encephalopathy like electrolyte imbalance, hypoxia, or any other potential in fectious source. * Chronic renal disease stage IV, with history of kidney transplant 2016 * Chronic systolic CHF with EF 40-45% * Diabetes mellitus, not well controlled, but even then patient getting episodes of hypoglycemia * Hypertension * Hypomagnesemia * Hypokalemia Plan: * We will check EEG to rule out any epileptiform activity * Carotid Doppler to rule out carotid stenosis * MRI of the brain, rule out CVA. * 2-D echo from 11/25/2022 showed left-ventricular EF 40-45% with global hypokinesis, moderate to severe mitral calcification with mild to moderate MR, moderate TR. Severe left atrial dilation. * Continue aspirin 81 mg and Lipitor 10 mg. * Avoid any further episodes of hypoglycemia. * Optimize control of diabetes. Consider endocrinology consultation. * Nephrology on board for renal dysfunction. * B12 843 on 08/16/2022, folate 6.0. We'll start folate replacement. TSH is normal 3.03. * Neurology will follow clinically. Thank you for the consult. Time with Patient: Greater than 30 (Spent over 70 minutes in the entire encounter, with history examination and reviewing records.)
[2023-01-13 10:21] LABS: Glucose,Whole Blood 207 mg/dL (70-110)
[2023-01-13] MEDS: SODIUM BICARBONATE TAB 650 MG TAB PO SCH ×3 (10:51→20:31)
[2023-01-13] MEDS: FAMOTIDINE 20 MG TAB PO SCH (10:51)
[2023-01-13] MEDS: cloNIDine HCL 0.2 MG TAB PO SCH ×3 (10:51→20:30)
[2023-01-13] MEDS: THIAMINE 100 MG TAB PO SCH ×2 (10:51→20:30)
[2023-01-13] MEDS: ASPIRIN 81 MG PO SCH (10:51)
[2023-01-13] MEDS: amLODIPine 10 MG TAB PO SCH (10:51)
[2023-01-13] MEDS: FUROSEMIDE 40 MG TAB PO SCH (10:52)
[2023-01-13] MEDS: predniSONE 5 MG TAB PO SCH (10:52)
[2023-01-13] MEDS: HEPARIN SODIUM,PORCINE 5,000 UNIT/ML 1 ML VIAL SQ SCH ×3 (10:52→23:26)
[2023-01-13] MEDS: MYCOPHENOLATE SODIUM DR 180 MG TABLET.DR PO SCH ×2 (10:52→20:32)
[2023-01-13] MEDS: TACROLIMUS 1 MG CAP PO SCH ×2 (10:53→20:32)
[2023-01-13] MEDS: FOLIC ACID 1 MG TAB PO SCH (11:08)
[2023-01-13 11:17] LABS: Glucose,Whole Blood 211 mg/dL (70-110)
--- NOTE | 2023-01-13 11:44 | P.PN ---
Subjective Patient is seen in follow-up for chronic kidney disease and renal transplant management. Allograft function stable. Blood sugar 112 this morning. Has been waiting. On oral Lasix. Blood pressure stable. On room air. Vital signs are stable. General: No acute distress. HEENT: Head exam is unremarkable. LUNGS: No audible rhonchi or wheezes. HEART: Rate and Rhythm are regular. ABDOMEN: Soft, nontender. EXTREMITITES: 1+ edema in ankles. Objective - Vital Signs Vital signs: Vital Signs Temp 97.5 F L 01/13/23 11:16 Pulse 66 01/13/23 11:16 Resp 16 01/13/23 11:16 BP 125/64 01/13/23 11:16 Pulse Ox 100 01/13/23 11:16 FiO2 Intake & Output 01/12/23 01/13/23 01/13/23 18:59 06:59 18:59 Intake Total 120 240 Output Total 200 450 Balance -80 -450 240 Intake: Oral 120 240 Output: Urine 200 450 Other: Voiding Method External Catheter External Catheter External Catheter # Bowel Movements 2 - Labs CBC & Chem 7: 01/13/23 08:17 01/13/23 08:17 Labs: Abnormal Lab Results - Last 24 Hours (Table) 01/12/23 01/12/23 01/12/23 Range/Units 12:10 13:02 14:12 RBC (3.80-5.40) m/uL Hgb (11.4-16.0) gm/dL Hct (34.0-46.0) % Plt Count (150-450) k/uL Sodium (137-145) mmol/L BUN (7-17) mg/dL Creatinine (0.52-1.04) mg/dL Glucose (74-99) mg/dL POC Glucose (mg/dL) 128 H 135 H 180 H (70-110) mg/dL Total Protein (6.3-8.2) g/dL Albumin (3.5-5.0) g/dL 01/12/23 01/12/23 01/12/23 Range/Units 14:56 15:58 18:06 RBC (3.80-5.40) m/uL Hgb (11.4-16.0) gm/dL Hct (34.0-46.0) % Plt Count (150-450) k/uL Sodium (137-145) mmol/L BUN (7-17) mg/dL Creatinine (0.52-1.04) mg/dL Glucose (74-99) mg/dL POC Glucose (mg/dL) 169 H 184 H 209 H (70-110) mg/dL Total Protein (6.3-8.2) g/dL Albumin (3.5-5.0) g/dL 01/12/23 01/12/23 01/12/23 Range/Units 19:25 20:14 21:01 RBC (3.80-5.40) m/uL Hgb (11.4-16.0) gm/dL Hct (34.0-46.0) % Plt Count (150-450) k/uL Sodium (137-145) mmol/L BUN (7-17) mg/dL Creatinine (0.52-1.04) mg/dL Glucose (74-99) mg/dL POC Glucose (mg/dL) 259 H 293 H 304 H (70-110) mg/dL Total Protein (6.3-8.2) g/dL Albumin (3.5-5.0) g/dL 01/12/23 01/12/23 01/12/23 Range/Units 22:01 23:02 23:59 RBC (3.80-5.40) m/uL Hgb (11.4-16.0) gm/dL Hct (34.0-46.0) % Plt Count (150-450) k/uL Sodium (137-145) mmol/L BUN (7-17) mg/dL Creatinine (0.52-1.04) mg/dL Glucose (74-99) mg/dL POC Glucose (mg/dL) 263 H 383 H 283 H (70-110) mg/dL Total Protein (6.3-8.2) g/dL Albumin (3.5-5.0) g/dL 01/13/23 01/13/23 01/13/23 Range/Units 01:27 02:05 03:01 RBC (3.80-5.40) m/uL Hgb (11.4-16.0) gm/dL Hct (34.0-46.0) % Plt Count (150-450) k/uL Sodium (137-145) mmol/L BUN (7-17) mg/dL Creatinine (0.52-1.04) mg/dL Glucose (74-99) mg/dL POC Glucose (mg/dL) 331 H 328 H 296 H (70-110) mg/dL Total Protein (6.3-8.2) g/dL Albumin (3.5-5.0) g/dL 01/13/23 01/13/23 01/13/23 Range/Units 04:03 04:59 06:05 RBC (3.80-5.40) m/uL Hgb (11.4-16.0) gm/dL Hct (34.0-46.0) % Plt Count (150-450) k/uL Sodium (137-145) mmol/L BUN (7-17) mg/dL Creatinine (0.52-1.04) mg/dL Glucose (74-99) mg/dL POC Glucose (mg/dL) 294 H 171 H 129 H (70-110) mg/dL Total Protein (6.3-8.2) g/dL Albumin (3.5-5.0) g/dL 01/13/23 01/13/23 01/13/23 Range/Units 08:17 08:17 09:08 RBC 2.90 L (3.80-5.40) m/uL Hgb 8.2 L (11.4-16.0) gm/dL Hct 25.4 L (34.0-46.0) % Plt Count 144 L (150-450) k/uL Sodium 131 L (137-145) mmol/L BUN 53 H (7-17) mg/dL Creatinine 2.98 H (0.52-1.04) mg/dL Glucose 112 H (74-99) mg/dL POC Glucose (mg/dL) 146 H (70-110) mg/dL Total Protein 4.9 L (6.3-8.2) g/dL Albumin 2.5 L (3.5-5.0) g/dL 01/13/23 01/13/23 Range/Units 10:09 11:09 RBC (3.80-5.40) m/uL Hgb (11.4-16.0) gm/dL Hct (34.0-46.0) % Plt Count (150-450) k/uL Sodium (137-145) mmol/L BUN (7-17) mg/dL Creatinine (0.52-1.04) mg/dL Glucose (74-99) mg/dL POC Glucose (mg/dL) 207 H 211 H (70-110) mg/dL Total Protein (6.3-8.2) g/dL Albumin (3.5-5.0) g/dL Assessment and Plan Plan: Assessment: 1. Chronic kidney disease stage IV secondary to long-term calcineurin inhibitor use and solitary kidney as well as diabetic kidney disease and cardiorenal syndrome. GFR near baseline. 2. Status post donor renal allograft in 2016. 3. Chronic systolic CHF with ejection fraction of 40-45% with mild to moderate mitral regurgitation and moderate tricuspid regurgitation. 4. Diabetes mellitus with hypoglycemia. Improved. 5. Hypertension with chronic kidney disease. Controlled. 6. Hypokalemia from diuresis and hypomagnesemia. Replaced. Better. 7. Hypomagnesemia from diuresis and GI losses. Replaced. Better. 8. Anemia of chronic disease. Rule out iron deficiency. Plan: Off IV fluids. Maintain oral Lasix. Avoid nephrotoxins. Follow-up Prograf level. Continue to monitor renal function and urine output. Hold clonidine for systolic blood pressure less than 125. Check iron studies.
[2023-01-13 12:04] LABS: Glucose,Whole Blood 268 mg/dL (70-110)
[2023-01-13 13:18] LABS: Glucose,Whole Blood 244 mg/dL (70-110)
[2023-01-13 13:43] VITALS: BMI 28.1
--- NOTE | 2023-01-13 13:48 | P.PN ---
Subjective Progress Note Date: 01/13/23 History of Presenting Illness: Patient is a very pleasant 72-year-old female with a past medical history of ESRD with previous renal transplant in 2016 on antirejection medication currently with stage IV chronic kidney disease, hypertension, hyperlipidemia, insulin-dependent diabetes mellitus, left eye retinal detachment, and right eye retinal bleeds. Patient presented to the emergency department via EMS secondary to family reports of patient having altered mental status. Patient currently alert to person only, slurring words and unable to state place, time, or situation. Information obtained from patient's son via telephone, ED physician, and RN. Patient's son reports patient has been struggling with episodes of recurrent episodes of hypoglycemia at home. He reports EMS was called out to their home yesterday evening secondary to confusion and hypoglycemic event and administered glucose resulting in return of normal mentation. Patient's son re ports patient is adamant about taking her insulin regardless of what her blood glucose levels are. He states that she does administer all of her own medications and is very good about checking her blood glucose levels if she feels they are too low or too high but will take her insulin regardless of what her glucose levels are. Patient's son states he is concerned that she may have taken 34 units of her short acting insulin instead of her long-acting insulin. He reports she is normally alert and oriented 4 and does all of her activities of daily living independently. He does report she lives at home with his father/her and has a home care nurse, family support for multiple family members daily, and advent family support. He reports she had a recent urinary tract infection just over one week ago and it is unclear if she completed her antibiotic. He denies any other recent illnesses are known infections or exposure to known ill contacts. Patient underwent full evaluation in the emergency department. She was found to be alert and oriented to person only.Vital signs reviewed, patient was found to be in hypertensive urgency with blood pressure 204/120, heart rate 80, respiratory rate 16, temp 97.2F, and SpO2 of 100% on room air. Blood glucose 41 and 1 amp of D50 was administered. Labs were then completed and reviewed. CBC showing leukocytosis with WBC count of 12.2 and normocytic anemia with hemoglobin of 10.6. Coagulation profile normal findings. BMP revealing hyponatremia with sodium 134, chloride 95, and consistent with ESRD with CKD stage IV with BUN of 59, creatinine 3.57, and GFR of 12. Urinalysis negative for infection. Urine drug screen negative. TSH normal findings at 3.030. Troponin elevated at 0.063. EKG was completed showing normal sinus rhythm at 81 bpm with no significant T-wave or ST abnormalities showing no signs of acute ischemia upon personal review and interpretation. CT brain without contrast completed and radiology report stating age related atrophic and chronic small vessel ischemic changes negative for acute intercranial process. Chest x-ray completed negative for acute cardiopulmonary process. Patient was given 1 amp of D50 and started on D5 0.45 infusion and blood glucose levels continued to be low. Patient was admitted to general medical unit with telemetry under our services. She was monitored overnight and continued to have episodes of hypoglycemia and confusion. lispro insulin half- life is 26-52 minutes and would be out of patient's system by this time as it has been greater than 24 hours. Physical exam: Patient seen and evaluated at bedside this morning. Patient's mentation back to baseline and she is alert to person, place, time, and situation. Patient has not had a hypoglycemic event since yesterday morning. She was evaluated by neurology and planning to undergo EEG later today. Vital signs reviewed and stable. General: Nontoxic, no distress and appears stated age. Derm: Skin warm and dry, normal coloration for ethnicity. Head: Atraumatic, normocephalic and symmetric. Eyes: EOMs intact, no lid lag, and anicteric sclera Mouth: no lip lesions, mucus membranes moist Cardiovascular: regular rate and rhythm with normal S1S2, systolic murmur, positive posterior tibial pulses bilaterally, and cap refill < 2 seconds. Lungs: Respirations even, regular, and unlabored on room air. Lungs CTA bilaterally, no rhonchi, no rales, no wheezing, and no accessory muscle usage. Abdominal: soft, nontender to palpation, no guarding, no appreciable organomegaly Ext: ROM intact. No gross muscle atrophy, 2+ pitting bilateral lower extremity edema, no contractures Neuro: Speech slurred., face symmetrical. GCS 14. Patient moving all extremities independently and able to sit up in bed with no noted focal deficit. Patient difficult time with following commands. Psych: Alert and oriented to person only, confused to place, time, and situation. Assessment and Plan of Care: Acute metabolic encephalopathy Recurrent episodes of Hypoglycemia. Insulin-dependent diabetes mellitus Stage IV chronic kidney disease with history of renal transplant on antirejection medications -Continue Neuro checks every 4 hours. -Neurology consulted, ordered for EEG to be completed. -Continue Fall precautions -Continue Telemetry monitoring -POC glucose checks changed from hourly to every 4 hours as patient has had no further episodes of hypoglycemia since yesterday morning. Continue treatment with half amp of D50 (25 mg) as needed for blood glucose levels less than 70 and 1 amp or 50 mg of D50 as needed for blood glucose levels less than 50. -Blood glucose levels have fluctuated from 47 up to 328 over the past 24 hours. D10W infusion discontinued just before midnight and patient has since had no further episodes of hypoglycemia.. -Tacrolimus level was ordered and currently remains pending results. Patient to continue anti-rejection medications with prednisone 5 mg daily, tacrolimus 3 mg twice daily, and mycophenolate sodium 360 mg twice daily. -Nephrology following and discussed plan of care. Hypertensive urgency, resolved. Blood pressures have stabilized on current medication regimen with amlodipine 10 mg daily, carvedilol 25 mg twice daily, and clonidine 0.2 mg 3 times daily Hypomagnesemia, resolved Hypokalemia, resolved Data review: Vital signs reviewed and stable. Blood pressure 120/63, heart rate 66, respiratory rate 18, temp 98.5F, and SpO2 of 90% on room air. Morning labs reviewed. CBC showing mild normocytic anemia with hemoglobin of 8.2. BMP showing hyponatremia with sodium 131, and BUN 53, creatinine 2.9, and GFR 15. Renal function remains at baseline. Morning glucose stable at 112 Imaging review: No new imaging for review at this time. Patient going down for EEG later today. CODE STATUS: Full code DVT prophylaxis: Heparin Discussed with: Patient, RN, and pals specialist Anticipated discharge date: Clinical course to determine Anticipated discharge place: Home Patient was seen independently by Nurse Practitioner. This document was prepared using [employer] dictation software. Please allow for errors in estate conservator while rare they do occur. Jaquan Hernandez NP rendered care for this patient independently, reviewed the findings and plan as documented in the note above. I did not physically speak with or examine the patient on this date. Objective - Vital Signs Vital signs: Vital Signs Temp 99 F 01/13/23 03:14 Pulse 78 01/13/23 03:14 Resp 18 01/13/23 03:14 BP 107/48 01/13/23 03:14 Pulse Ox 100 01/13/23 03:14 FiO2 Intake & Output 01/12/23 01/13/23 01/13/23 18:59 06:59 18:59 Intake Total 120 240 Output Total 200 450 Balance -80 -450 240 Intake: Oral 120 240 Output: Urine 200 450 Other: Voiding Method External Catheter External Catheter # Bowel Movements 2 - Labs CBC & Chem 7: 01/13/23 08:17 01/13/23 08:17 Labs: Abnormal Lab Results - Last 24 Hours (Table) 01/12/23 01/12/23 01/12/23 Range/Units 08:47 08:47 08:47 RBC 3.48 L (3.80-5.40) m/uL Hgb 9.5 L (11.4-16.0) gm/dL Hct 30.4 L (34.0-46.0) % Sodium 132 L (137-145) mmol/L Potassium 3.4 L (3.5-5.1) mmol/L Chloride 97 L (98-107) mmol/L BUN 55 H (7-17) mg/dL Creatinine 3.22 H (0.52-1.04) mg/dL Glucose 47 L* (74-99) mg/dL POC Glucose (mg/dL) (70-110) mg/dL Calcium 8.1 L (8.4-10.2) mg/dL Magnesium 1.1 L (1.6-2.3) mg/dL Troponin I 0.090 H* (0.000-0.034) ng/mL Total Protein 5.7 L (6.3-8.2) g/dL Albumin 2.9 L (3.5-5.0) g/dL 01/12/23 01/12/23 01/12/23 Range/Units 10:04 10:05 10:55 RBC (3.80-5.40) m/uL Hgb (11.4-16.0) gm/dL Hct (34.0-46.0) % Sodium (137-145) mmol/L Potassium (3.5-5.1) mmol/L Chloride (98-107) mmol/L BUN (7-17) mg/dL Creatinine (0.52-1.04) mg/dL Glucose (74-99) mg/dL POC Glucose (mg/dL) 41 L 44 L 174 H (70-110) mg/dL Calcium (8.4-10.2) mg/dL Magnesium (1.6-2.3) mg/dL Troponin I (0.000-0.034) ng/mL Total Protein (6.3-8.2) g/dL Albumin (3.5-5.0) g/dL 01/12/23 01/12/23 01/12/23 Range/Units 12:10 13:02 14:12 RBC (3.80-5.40) m/uL Hgb (11.4-16.0) gm/dL Hct (34.0-46.0) % Sodium (137-145) mmol/L Potassium (3.5-5.1) mmol/L Chloride (98-107) mmol/L BUN (7-17) mg/dL Creatinine (0.52-1.04) mg/dL Glucose (74-99) mg/dL POC Glucose (mg/dL) 128 H 135 H 180 H (70-110) mg/dL Calcium (8.4-10.2) mg/dL Magnesium (1.6-2.3) mg/dL Troponin I (0.000-0.034) ng/mL Total Protein (6.3-8.2) g/dL Albumin (3.5-5.0) g/dL 01/12/23 01/12/23 01/12/23 Range/Units 14:56 15:58 18:06 RBC (3.80-5.40) m/uL Hgb (11.4-16.0) gm/dL Hct (34.0-46.0) % Sodium (137-145) mmol/L Potassium (3.5-5.1) mmol/L Chloride (98-107) mmol/L BUN (7-17) mg/dL Creatinine (0.52-1.04) mg/dL Glucose (74-99) mg/dL POC Glucose (mg/dL) 169 H 184 H 209 H (70-110) mg/dL Calcium (8.4-10.2) mg/dL Magnesium (1.6-2.3) mg/dL Troponin I (0.000-0.034) ng/mL Total Protein (6.3-8.2) g/dL Albumin (3.5-5.0) g/dL 01/12/23 01/12/23 01/12/23 Range/Units 19:25 20:14 21:01 RBC (3.80-5.40) m/uL Hgb (11.4-16.0) gm/dL Hct (34.0-46.0) % Sodium (137-145) mmol/L Potassium (3.5-5.1) mmol/L Chloride (98-107) mmol/L BUN (7-17) mg/dL Creatinine (0.52-1.04) mg/dL Glucose (74-99) mg/dL POC Glucose (mg/dL) 259 H 293 H 304 H (70-110) mg/dL Calcium (8.4-10.2) mg/dL Magnesium (1.6-2.3) mg/dL Troponin I (0.000-0.034) ng/mL Total Protein (6.3-8.2) g/dL Albumin (3.5-5.0) g/dL 01/12/23 01/12/23 01/12/23 Range/Units 22:01 23:02 23:59 RBC (3.80-5.40) m/uL Hgb (11.4-16.0) gm/dL Hct (34.0-46.0) % Sodium (137-145) mmol/L Potassium (3.5-5.1) mmol/L Chloride (98-107) mmol/L BUN (7-17) mg/dL Creatinine (0.52-1.04) mg/dL Glucose (74-99) mg/dL POC Glucose (mg/dL) 263 H 383 H 283 H (70-110) mg/dL Calcium (8.4-10.2) mg/dL Magnesium (1.6-2.3) mg/dL Troponin I (0.000-0.034) ng/mL Total Protein (6.3-8.2) g/dL Albumin (3.5-5.0) g/dL 01/13/23 01/13/23 01/13/23 Range/Units 01:27 02:05 03:01 RBC (3.80-5.40) m/uL Hgb (11.4-16.0) gm/dL Hct (34.0-46.0) % Sodium (137-145) mmol/L Potassium (3.5-5.1) mmol/L Chloride (98-107) mmol/L BUN (7-17) mg/dL Creatinine (0.52-1.04) mg/dL Glucose (74-99) mg/dL POC Glucose (mg/dL) 331 H 328 H 296 H (70-110) mg/dL Calcium (8.4-10.2) mg/dL Magnesium (1.6-2.3) mg/dL Troponin I (0.000-0.034) ng/mL Total Protein (6.3-8.2) g/dL Albumin (3.5-5.0) g/dL 01/13/23 01/13/23 01/13/23 Range/Units 04:03 04:59 06:05 RBC (3.80-5.40) m/uL Hgb (11.4-16.0) gm/dL Hct (34.0-46.0) % Sodium (137-145) mmol/L Potassium (3.5-5.1) mmol/L Chloride (98-107) mmol/L BUN (7-17) mg/dL Creatinine (0.52-1.04) mg/dL Glucose (74-99) mg/dL POC Glucose (mg/dL) 294 H 171 H 129 H (70-110) mg/dL Calcium (8.4-10.2) mg/dL Magnesium (1.6-2.3) mg/dL Troponin I (0.000-0.034) ng/mL Total Protein (6.3-8.2) g/dL Albumin (3.5-5.0) g/dL
[2023-01-13 17:03] LABS: Glucose,Whole Blood 212 mg/dL (70-110)
[2023-01-13 20:20] LABS: Glucose,Whole Blood 259 mg/dL (70-110)
[2023-01-13] MEDS: ATORVASTATIN 10 MG TAB PO SCH (20:31)
[2023-01-13 23:26] VITALS: RESP 16
[2023-01-14 01:40] LABS: Glucose,Whole Blood 141 mg/dL (70-110)
--- NOTE | 2023-01-14 03:17 | EEG ---
DATE OF SERVICE: 01/13/2023 ELECTROENCEPHALOGRAM REPORT PREAMBLE: This is a 72-year-old female who has history of episodic mental status change and confusion. The patient does have episodes of hypoglycemia. EEG FINDINGS: This is a 21-channel digital EEG recorded with video component, utilizing 10/20 international system with referential and bipolar montages. Background consists of well developed, well regulated moderate voltage activity in 8 hertz alpha. Background is posterior dominant and reactive to eye opening and closing. Photic driving response was not seen. There is intermittent left temporal slowing, delta range seen during the study. Occasional left temporal sharply contoured waves were also seen. Drowsiness was seen with appearance of bilaterally symmetric theta frequency rhythm. Deeper stages of sleep were not seen. No electrographic seizure was recorded. EKG channel showed no obvious arrhythmia. IMPRESSION: This is an abnormal EEG due to frequent left temporal slowing, and some sharply contoured waves seen in the left temporal region. This is suggestive of focal cortical neuronal dysfunction. Sharp waves may suggest underlying cortical irritability. If your suspicion for seizures is high, suggest prolonged EEG for further evaluation. Clinical correlation is strongly recommended. MMODL / IJN: [id number] / MEGHANA
[2023-01-14 05:50] LABS: Glucose,Whole Blood 254 mg/dL (70-110)
[2023-01-14] MEDS: carvediloL 12.5 MG TAB PO SCH (06:15)
[2023-01-14] MEDS: INSULIN ASPART (NovoLOG) 100 UNIT/ML VIAL SQ SCH ×2 (06:15→11:54)
[2023-01-14] MEDS: HEPARIN SODIUM,PORCINE 5,000 UNIT/ML 1 ML VIAL SQ SCH (08:02)
[2023-01-14] MEDS: FUROSEMIDE 40 MG TAB PO SCH (08:03)
[2023-01-14] MEDS: SODIUM BICARBONATE TAB 650 MG TAB PO SCH (08:03)
[2023-01-14] MEDS: THIAMINE 100 MG TAB PO SCH (08:03)
[2023-01-14] MEDS: FOLIC ACID 1 MG TAB PO SCH (08:03)
[2023-01-14] MEDS: amLODIPine 10 MG TAB PO SCH (08:03)
[2023-01-14] MEDS: ASPIRIN 81 MG PO SCH (08:03)
[2023-01-14] MEDS: FAMOTIDINE 20 MG TAB PO SCH (08:03)
[2023-01-14] MEDS: cloNIDine HCL 0.2 MG TAB PO SCH (08:04)
[2023-01-14] MEDS: predniSONE 5 MG TAB PO SCH (08:04)
[2023-01-14] MEDS: TACROLIMUS 1 MG CAP PO SCH (08:05)
[2023-01-14] MEDS: MYCOPHENOLATE SODIUM DR 180 MG TABLET.DR PO SCH (08:05)
[2023-01-14] MEDS: ALBUTEROL NEBULIZED 2.5 MG/3 ML INHALATION SCH (09:21)
[2023-01-14 10:07] LABS: Glucose,Whole Blood 164 mg/dL (70-110)
--- NOTE | 2023-01-14 10:50 | P.PN ---
Subjective Patient is seen in follow-up for chronic kidney disease and renal transplant management. Allograft function stable. Blood sugar 164 this morning. Has been voiding. On oral Lasix. Blood pressure stable. On room air. Vital signs are stable. General: No acute distress. HEENT: Head exam is unremarkable. LUNGS: No audible rhonchi or wheezes. HEART: Rate and Rhythm are regular. ABDOMEN: Soft, nontender. EXTREMITITES: Trace edema in ankles. Objective - Vital Signs Vital signs: Vital Signs Temp 99.0 F 01/14/23 08:00 Pulse 75 01/14/23 08:00 Resp 16 01/14/23 08:00 BP 111/62 01/14/23 08:00 Pulse Ox 99 01/14/23 08:00 FiO2 Intake & Output 01/13/23 01/14/23 01/14/23 18:59 06:59 18:59 Intake Total 358 780 Balance 358 780 Weight 81.647 kg Intake: Oral 358 780 Other: Voiding Method External Catheter Bedside Commode Bedside Commode - Labs CBC & Chem 7: 01/13/23 08:17 01/13/23 08:17 Labs: Abnormal Lab Results - Last 24 Hours (Table) 01/13/23 01/13/23 01/13/23 Range/Units 11:09 12:01 13:06 POC Glucose (mg/dL) 211 H 268 H 244 H (70-110) mg/dL 01/13/23 01/13/23 01/14/23 Range/Units 17:01 20:18 01:38 POC Glucose (mg/dL) 212 H 259 H 141 H (70-110) mg/dL 01/14/23 01/14/23 Range/Units 05:49 10:06 POC Glucose (mg/dL) 254 H 164 H (70-110) mg/dL Assessment and Plan Plan: Assessment: 1. Chronic kidney disease stage IV secondary to long-term calcineurin inhibitor use and solitary kidney as well as diabetic kidney disease and cardiorenal syndrome. GFR near baseline. 2. Status post donor renal allograft in 2016. 3. Chronic systolic CHF with ejection fraction of 40-45% with mild to moderate mitral regurgitation and moderate tricuspid regurgitation. 4. Diabetes mellitus with hypoglycemia. Improved. 5. Hypertension with chronic kidney disease. Controlled. 6. Hypokalemia from diuresis and hypomagnesemia. Replaced. Better. 7. Hypomagnesemia from diuresis and GI losses. Replaced. Better. 8. Anemia of chronic disease. Rule out iron deficiency. Plan: Off IV fluids. Maintain oral Lasix. Avoid nephrotoxins. Prograf level 5.9 dated 01/12/2023. Continue to monitor renal function and urine output. Hold clonidine for systolic blood pressure less than 125. Follow-up iron studies. Follow up outpatient in 1 week post discharge. Advised patient to monitor weight closely at home and to notify physician if develops edema or gains more than 3-4 pounds in 1 week duration.
[2023-01-14 11:31] LABS: Glucose,Whole Blood 211 mg/dL (70-110)
[2023-01-14 11:58] VITALS: BP 116/66; PULSE 69; TEMP 98.8
--- NOTE | 2023-01-14 12:58 | P.PN ---
Subjective Progress Note Date: 01/13/23 Patient was seen for a follow-up. Patient is much more alert and awake. Patient is alert and oriented 3. She uses bedside commode. She denies any headache. Denies any focal symptoms. Her telemetry monitoring showing sinus rhythm with first-degree AV block, with bundle branch block. Objective - Vital Signs Vital signs: Vital Signs Temp 97.9 F 01/13/23 15:24 Pulse 53 L 01/13/23 15:24 Resp 18 01/13/23 15:24 BP 119/63 01/13/23 15:24 Pulse Ox 97 01/13/23 15:24 FiO2 Intake & Output 01/12/23 01/13/23 01/13/23 18:59 06:59 18:59 Intake Total 120 358 Output Total 200 450 Balance -80 -450 358 Weight 81.647 kg Intake: Oral 120 358 Output: Urine 200 450 Other: Voiding Method External Catheter External Catheter External Catheter # Bowel Movements 2 - Exam Patient's mental status, speech and language functions are normal. No stuttering,difficulty. - Labs CBC & Chem 7: 01/13/23 08:17 01/13/23 08:17 Labs: Abnormal Lab Results - Last 24 Hours (Table) 01/12/23 01/12/23 01/12/23 Range/Units 18:06 19:25 20:14 RBC (3.80-5.40) m/uL Hgb (11.4-16.0) gm/dL Hct (34.0-46.0) % Plt Count (150-450) k/uL Sodium (137-145) mmol/L BUN (7-17) mg/dL Creatinine (0.52-1.04) mg/dL Glucose (74-99) mg/dL POC Glucose (mg/dL) 209 H 259 H 293 H (70-110) mg/dL Total Protein (6.3-8.2) g/dL Albumin (3.5-5.0) g/dL 01/12/23 01/12/23 01/12/23 Range/Units 21:01 22:01 23:02 RBC (3.80-5.40) m/uL Hgb (11.4-16.0) gm/dL Hct (34.0-46.0) % Plt Count (150-450) k/uL Sodium (137-145) mmol/L BUN (7-17) mg/dL Creatinine (0.52-1.04) mg/dL Glucose (74-99) mg/dL POC Glucose (mg/dL) 304 H 263 H 383 H (70-110) mg/dL Total Protein (6.3-8.2) g/dL Albumin (3.5-5.0) g/dL 01/12/23 01/13/23 01/13/23 Range/Units 23:59 01:27 02:05 RBC (3.80-5.40) m/uL Hgb (11.4-16.0) gm/dL Hct (34.0-46.0) % Plt Count (150-450) k/uL Sodium (137-145) mmol/L BUN (7-17) mg/dL Creatinine (0.52-1.04) mg/dL Glucose (74-99) mg/dL POC Glucose (mg/dL) 283 H 331 H 328 H (70-110) mg/dL Total Protein (6.3-8.2) g/dL Albumin (3.5-5.0) g/dL 01/13/23 01/13/23 01/13/23 Range/Units 03:01 04:03 04:59 RBC (3.80-5.40) m/uL Hgb (11.4-16.0) gm/dL Hct (34.0-46.0) % Plt Count (150-450) k/uL Sodium (137-145) mmol/L BUN (7-17) mg/dL Creatinine (0.52-1.04) mg/dL Glucose (74-99) mg/dL POC Glucose (mg/dL) 296 H 294 H 171 H (70-110) mg/dL Total Protein (6.3-8.2) g/dL Albumin (3.5-5.0) g/dL 01/13/23 01/13/23 01/13/23 Range/Units 06:05 08:17 08:17 RBC 2.90 L (3.80-5.40) m/uL Hgb 8.2 L (11.4-16.0) gm/dL Hct 25.4 L (34.0-46.0) % Plt Count 144 L (150-450) k/uL Sodium 131 L (137-145) mmol/L BUN 53 H (7-17) mg/dL Creatinine 2.98 H (0.52-1.04) mg/dL Glucose 112 H (74-99) mg/dL POC Glucose (mg/dL) 129 H (70-110) mg/dL Total Protein 4.9 L (6.3-8.2) g/dL Albumin 2.5 L (3.5-5.0) g/dL 01/13/23 01/13/23 01/13/23 Range/Units 09:08 10:09 11:09 RBC (3.80-5.40) m/uL Hgb (11.4-16.0) gm/dL Hct (34.0-46.0) % Plt Count (150-450) k/uL Sodium (137-145) mmol/L BUN (7-17) mg/dL Creatinine (0.52-1.04) mg/dL Glucose (74-99) mg/dL POC Glucose (mg/dL) 146 H 207 H 211 H (70-110) mg/dL Total Protein (6.3-8.2) g/dL Albumin (3.5-5.0) g/dL 01/13/23 01/13/23 01/13/23 Range/Units 12:01 13:06 17:01 RBC (3.80-5.40) m/uL Hgb (11.4-16.0) gm/dL Hct (34.0-46.0) % Plt Count (150-450) k/uL Sodium (137-145) mmol/L BUN (7-17) mg/dL Creatinine (0.52-1.04) mg/dL Glucose (74-99) mg/dL POC Glucose (mg/dL) 268 H 244 H 212 H (70-110) mg/dL Total Protein (6.3-8.2) g/dL Albumin (3.5-5.0) g/dL Assessment and Plan Assessment: * Altered mental status, likely due to hypoglycemia. Patient has frequent episo sandra of hypoglycemia. Rule out any other potential cause of metabolic encephalopathy like electrolyte imbalance, hypoxia, or any other potential infectious source. * Chronic renal disease stage IV, with history of kidney transplant 2015 * Chronic systolic CHF with EF 40-45% * Diabetes mellitus, not well controlled, but even then patient getting episodes of hypoglycemia * Hypertension * Hypomagnesemia * Hypokalemia Plan: * EEG was abnormal due to frequent left temporal slowing and some sharply controlled waves seen in the left temporal region. This is suggestive of focal cortical neuronal dysfunction. She feels may suggest underlying cortical irritability. If the suspicion for seizures is high, suggest prolonged EEG for further evaluation. Clinical correlation is strongly recommended. I suspect this abnormality could be related to significant hypoglycemia. Recommend patient undergo a prolonged EEG as an outpatient. * Carotid Doppler revealed no hemodynamic significant stenosis. Antegrade flow in both vertebral arteries. * Patient declined MRI brain. * 2-D echo from 11/25/2022 showed left-ventricular EF 40-45% with global hypokinesis, moderate to severe mitral calcification with mild to moderate MR, moderate TR. Severe left atrial dilation. * Continue aspirin 81 mg and Lipitor 10 mg. * Avoid any further episodes of hypoglycemia. * Optimize control of diabetes. Consider endocrinology consultation. * Nephrology on board for renal dysfunction. * B12 843 on 08/16/2022, folate 6.0. We'll start folate replacement. TSH is normal 3.03. * Neurologically clear if she remains stable overnight.
--- NOTE | 2023-01-14 13:02 | P.PN ---
Subjective Progress Note Date: 01/14/23 Patient was seen for a follow-up. Patient is now fully alert and awake, fully oriented. Patient is alert and oriented 3. She denies any headache. Denies any focal symptoms. No further episodes of hypoglycemia. Her telemetry monitoring as of yesterday was showing sinus rhythm with first- degree AV block, with bundle branch block. Objective - Vital Signs Vital signs: Vital Signs Temp 98.8 F 01/14/23 11:57 Pulse 69 01/14/23 11:57 Resp 16 01/14/23 11:57 BP 116/66 01/14/23 11:57 Pulse Ox 99 01/14/23 12:35 FiO2 Intake & Output 01/13/23 01/14/23 01/14/23 18:59 06:59 18:59 Intake Total 358 780 Balance 358 780 Weight 81.647 kg Intake: Oral 358 780 Other: Voiding Method External Catheter Bedside Commode Bedside Commode - Exam Patient's mental status, speech and language functions are normal. No speech difficulty. Patient is fully oriented. Cranial nerves are normal, visual carmona are full. Muscle strength is normal. No ataxia. Sensations are normal. - Labs CBC & Chem 7: 01/13/23 08:17 01/13/23 08:17 Labs: Abnormal Lab Results - Last 24 Hours (Table) 01/13/23 01/13/23 01/13/23 Range/Units 13:06 17:01 20:18 POC Glucose (mg/dL) 244 H 212 H 259 H (70-110) mg/dL 01/14/23 01/14/23 01/14/23 Range/Units 01:38 05:49 10:06 POC Glucose (mg/dL) 141 H 254 H 164 H (70-110) mg/dL 01/14/23 Range/Units 11:29 POC Glucose (mg/dL) 211 H (70-110) mg/dL Assessment and Plan Assessment: * Altered mental status, likely due to hypoglycemia. Patient has frequent episodes of hypoglycemia. Rule out any other potential cause of metabolic encephalopathy like electrolyte imbalance, hypoxia, or any other potential infectious source. * Chronic renal disease stage IV, with history of kidney transplant 2016 * Chronic systolic CHF with EF 40-45% * Diabetes mellitus, not well controlled, but even then patient getting episodes of hypoglycemia * Hypertension * Hypomagnesemia * Hypokalemia Plan: * EEG was abnormal due to frequent left temporal slowing and some sharply contoured waves seen in the left temporal region. This is suggestive of focal cortical neuronal dysfunction. This may suggest underlying cortical irritability. If the suspicion for seizures is high, suggest prolonged EEG for further evaluation. Clinical correlation is strongly recommended. * I suspect the above EEG abnormality could be related to significant hypog lycemia. Discussed with patient. At this point I would not place on antiepileptic medication. Recommend patient follow up with neurologist as an outpatient. Recommend patient undergo a prolonged EEG as an outpatient. If patient has episodes of confusion, and related to hypoglycemia, then may co nsider treatment with AED. * Carotid Doppler revealed no hemodynamic significant stenosis. Antegrade flow in both vertebral arteries. * Patient declined MRI brain. * 2-D echo from 11/25/2022 showed left-ventricular EF 40-45% with global hypokinesis, moderate to severe mitral calcification with mild to moderate MR, moderate TR. Severe left atrial dilation. * Continue aspirin 81 mg and Lipitor 10 mg. * Avoid any further episodes of hypoglycemia. * Optimize control of diabetes. Consider endocrinology consultation. * Nephrology on board for renal dysfunction. * B12 843 on 08/16/2022, folate 6.0. We'll start folate replacement. TSH is normal 3.03. * Neurologically clear. Recommend patient follow up with neurologist as an outpatient for prolonged EEG.
[2023-01-14 13:36] LABS: % Iron Saturation 75.82 (12.00-45.00)
--- NOTE | 2023-01-14 14:39 | P.DS ---
Providers Date of admission: 01/11/23 14:50 Expected date of discharge: 01/14/23 Attending physician: Serge Deras MD Consults: 01/11/23 15:41 Consult Physician Routine Consulting Provider: Juan Manuel Clark Consult Reason/Comments: hx of renal transplant on antirejection with stage IV CKD Do you want consulting provider notified?: Yes 01/11/23 17:11 Consult Physician Routine Consulting Provider: Varinder Munroe Consult Reason/Comments: confusion init thought to be low blood sugar does not improve with glucose Do you want consulting provider notified?: Yes Primary care physician: Raza Chiquita Tyler Hospital Course: Discharge Diagnosis: Acute metabolic encephalopathy, resolved. Believed to be resulting from recurrent episodes of hypoglycemia, however patient was evaluated by neurologist and underwent EEG which revealed abnormal findings as stated below. Neurology recommending patient undergo a prolonged EEG outpatient. Patient strongly encouraged to follow up outpatient with neurologist for recommended testing. Insulin-dependent diabetes mellitus with recurrent episodes of hypoglycemia. Insulin discontinued secondary to recurrent episodes of hypoglycemia at home and during hospitalization. Hemoglobin A1c was 8.2%. Blood glucose levels have been stabilized over the past 24 hours ranging from 98 to 268 over the past 24 hours, these are pre-and postprandial glucose levels. Hemoglobin A1c is 8.2%. Patient verbalizes understanding and instructed she'll need to continue to monitor her blood glucose levels at home 3 times daily and document these findings in a daily logjournal to bring with her to her next doctor's appointment. This was also called and discussed with patient's PCP's (Dr. Purcell) office staff. Stage IV chronic kidney disease with history of renal transplant on antirejection medications. Prograf/Tacrolimus Level 5.9. Patient to continue anti-rejection medications with prednisone 5 mg daily, tacrolimus 3 mg twice daily, and mycophenolate sodium 360 mg twice daily. Hypertensive urgency, resolved. Blood pressures have stabilized on current medication regimen with amlodipine 10 mg daily, carvedilol 25 mg twice daily, and clonidine 0.2 mg 3 times daily Hypomagnesemia, resolved Hypokalemia, resolved Hospital Course: Patient is a very pleasant 72-year-old female with a past medical history of ESRD with previous renal transplant in 2016 on antirejection medication currently with stage IV chronic kidney disease, hypertension, hyperlipidemia, insulin-dependent diabetes mellitus, left eye retinal detachment, and right eye retinal bleeds. Patient presented to the emergency department via EMS secondary to family reports of patient having altered mental status. Patient currently alert to person only, slurring words and unable to state place, time, or situation. Information obtained from patient's son via telephone, ED physician, and RN. Patient's son reports patient has been struggling with episodes of recurrent episodes of hypoglycemia at home. He reports EMS was called out to their home yesterday evening secondary to confusion and hypoglycemic event and administered glucose resulting in return of normal mentation. Patient's son reports patient is adamant about taking her insulin regardless of what her blood glucose levels are. He states that she does administer all of her own medications and is very good about checking her blood glucose levels if she feels they are too low or too high but will take her insulin regardless of what her glucose levels are. Patient's son states he is concerned that she may have taken 34 units of her short acting insulin instead of her long-acting insulin. He reports she is normally alert and oriented 4 and does all of her activities of daily living independently. He does report she lives at home with his father/her and has a home care nurse, family support for multiple family members daily, and [employer] family support. He reports she had a recent urinary tract infection just over one week ago and it is unclear if she completed her antibiotic. He denies any other recent illnesses are known infections or exposure to known ill contacts. Patient underwent full evaluation in the emergency department. She was found to be alert and oriented to person only.Vital signs reviewed, patient was found to be in hypertensive urgency with blood pressure 204/120, heart rate 80, respiratory rate 16, temp 97.2F, and SpO 2 of 100% on room air. Blood glucose 41 and 1 amp of D50 was administered. Labs were then completed and reviewed. CBC showing leukocytosis with WBC count of 12.2 and normocytic anemia with hemoglobin of 10.6. Coagulation profile normal findings. BMP revealing hyponatremia with sodium 134, chloride 95, and consistent with ESRD with CKD stage IV with BUN of 59, creatinine 3.57, and GFR of 12. Urinalysis negative for infection. Urine drug screen negative. TSH normal findings at 3.030. Troponin elevated at 0.063. EKG was completed showing normal sinus rhythm at 81 bpm with no significant T-wave or ST abnormalities showing no signs of acute ischemia upon personal review and interpretation. CT brain without contrast completed and radiology report stating age related atrophic and chronic small vessel ischemic changes negative for acute intercranial process. Chest x-ray completed negative for acute cardiopulmonary process. Patient was given 1 amp of D50 and started on D5 0.45 infusion and blood glucose levels continued to be low. Patient was admitted to general medical unit with telemetry under our services. Recurrent episodes of hypoglycemia were finally controlled. Patient's mentation slowly improving now back at baseline. Patient underwent evaluation by neurologist. Carotid Dopplers were completed showing no hemodynamically significant internal carotid artery stenosis. Neurologist recommended an MRI however patient adamantly declined. She was agreeable to EEG which was completed showing abnormal EEG due to frequent left temporal slowing and sharply contoured waves seen in the left temporal region suggestive of focal cortical neuronal dysfunction with sharp waves suggesting possible underlying cortical irritability. Neurology evaluated recommending patient undergo prolonged EEG. Patient very adamant about being discharged home at this time and is agreeable to follow up outpatient with neurologist for recommended study. Patient was also educated that she is being discharged home without insulin. I'll short acting and long acting insulin has been discontinued. Patient has been experiencing multiple recurrent episodes of hypoglycemia at home which continued throughout hospitalization. Blood glucose levels have been stabilized over the past 24 hours ranging from 98 to 268 over the past 24 hours, these are pre-and postprandial glucose levels. Hemoglobin A1c is 8.2%. Patient verbalizes understanding and instructed she'll need to continue to monitor her blood glucose levels at home 3 times daily and document these findings in a daily logjournal to bring with her to her next doctor's appointment. This was also called and discussed with patient's PCP's (Dr. Purcell) office staff. Patient medically stable for discharge at this time and to follow up outpatient with PCP, neurologist, sign language translator, and recommend continued close following with network engineer administrator. Physical exam: Vital signs reviewed and stable. General: Nontoxic, no distress and appears stated age. Derm: Skin warm and dry, normal coloration for ethnicity. Head: Atraumatic, normocephalic and symmetric. Eyes: EOMs intact, no lid lag, and anicteric sclera Mouth: no lip lesions, mucus membranes moist Cardiovascular: regular rate and rhythm with normal S1S2, systolic murmur, positive posterior tibial pulses bilaterally, and cap refill < 2 seconds. Lungs: Respirations even, regular, and unlabored on room air. Lungs CTA bilaterally, no rhonchi, no rales, no wheezing, and no accessory muscle usage. Abdominal: soft, nontender to palpation, no guarding, no appreciable organomegaly Ext: ROM intact. No gross muscle atrophy, 2+ pitting bilateral lower extremity edema, no contractures Neuro: Speech is Clear. Face is symmetrical. Patient following all commands, movement and sensation equal and intact. GCS 15. Psych: Alert and oriented to person, place, time, and situation. A total of 39 minutes of time were spent preparing this complex discharge summary. Pt was discharged on 01/14/23 at 2:03 PM. Patient was seen independently by Nurse Practitioner. This document was prepared using [employer]US dictation software. Please allow for errors in concaver while rare they do occur. Jaquan Hernandez NP rendered care for this patient independently, reviewed the findings and plan as documented in the note above. I did not physically speak with or examine the patient on this date. Patient Condition at Discharge: Stable Plan - Discharge Summary Discharge Rx Participant: No New Discharge Prescriptions: New Folic Acid 1 mg PO DAILY 30 Days #30 tab Continue amLODIPine [Norvasc] 10 mg PO DAILY Sodium Bicarbonate Tab 1,300 mg PO TID Atorvastatin Calcium [Lipitor] 10 mg PO HS predniSONE 5 mg PO DAILY Mycophenolate Sodium [Mycophenolic Acid] 360 mg PO BID carvediloL [Coreg] 25 mg PO BID Ketoconazole 2% Cream [Nizoral 2%] 1 applic TOPICAL DAILY PRN PRN Reason: skin on nails/feet traMADol HCL 50 - 100 mg PO Q6H PRN PRN Reason: Pain cloNIDine HCL [Catapres] 0.2 mg PO TID #90 tab Furosemide [Lasix] 40 mg PO DAILY #30 tab Sodium Zirconium Cyclosilicate [Lokelma] 10 gm PO BID #60 packet Metaxalone [Skelaxin] 800 mg PO BID PRN PRN Reason: Muscle Pain Ergocalciferol [Vitamin D2 (1250 Mcg = 43168 Iu)] 1,250 mcg PO Q7D Famotidine 40 mg PO DAILY Thiamine [Vitamin B-1] 250 mg PO BID Gentamicin 0.1% Cream 1 applic TOPICAL DAILY Diphenox-Atrop 2.5-0.025 mg [Lomotil] 1 tab PO TID PRN PRN Reason: Diarrhea Docusate [Colace] 100 mg PO DAILY PRN PRN Reason: Constipation Albuterol Inhaler [Ventolin Hfa Inhaler] 2 puff INHALATION RT-DAILY Aspirin EC [Ecotrin Low Dose] 81 mg PO DAILY Tacrolimus [Prograf] 3 mg PO BID #180 cap Discontinued Insulin Lispro [humaLOG Kwikpen] See Protocol SQ AC-TID Insulin Glargine,Hum.rec.anlog [Lantus Solostar Pen] 8 units SQ DAILY #3 each Discharge Medication List Atorvastatin Calcium [Lipitor] 10 mg PO HS 08/11/16 [History] Sodium Bicarbonate Tab 1,300 mg PO TID 08/11/16 [History] amLODIPine [Norvasc] 10 mg PO DAILY 08/11/16 [History] predniSONE 5 mg PO DAILY 08/25/17 [History] Mycophenolate Sodium [Mycophenolic Acid] 360 mg PO BID 04/25/20 [History] Ergocalciferol [Vitamin D2 (1250 Mcg = 15889 Iu)] 1,250 mcg PO Q7D 10/27/21 [History] Famotidine 40 mg PO DAILY 10/27/21 [History] carvediloL [Coreg] 25 mg PO BID 10/27/21 [History] Albuterol Inhaler [Ventolin Hfa Inhaler] 2 puff INHALATION RT-DAILY 11/24/22 [History] Aspirin EC [Ecotrin Low Dose] 81 mg PO DAILY 11/24/22 [History] Diphenox-Atrop 2.5-0.025 mg [Lomotil] 1 tab PO TID PRN 11/24/22 [History] Docusate [Colace] 100 mg PO DAILY PRN 11/24/22 [History] Gentamicin 0.1% Cream 1 applic TOPICAL DAILY 11/24/22 [History] Ketoconazole 2% Cream [Nizoral 2%] 1 applic TOPICAL DAILY PRN 11/24/22 [History] Thiamine [Vitamin B-1] 250 mg PO BID 11/24/22 [History] traMADol HCL 50 - 100 mg PO Q6H PRN 11/24/22 [History] cloNIDine HCL [Catapres] 0.2 mg PO TID #90 tab 11/30/22 [Rx] Furosemide [Lasix] 40 mg PO DAILY #30 tab 12/20/22 [Rx] Sodium Zirconium Cyclosilicate [Lokelma] 10 gm PO BID #60 packet 12/20/22 [Rx] Tacrolimus [Prograf] 3 mg PO BID #180 cap 12/20/22 [Rx] Metaxalone [Skelaxin] 800 mg PO BID PRN 01/11/23 [History] Folic Acid 1 mg PO DAILY 30 Days #30 tab 01/14/23 [Rx] Follow up Appointment(s)/Referral(s): Raza Purcell MD [Primary Care Provider] - 01/28/23 9:15 am Astrid Perea MD [Medical Doctor] - 1 Week (please call and make an appointment) Nora Dougherty [STAFF PHYSICIAN] - 1 Week (Office closed-please call and make an appointment) Patient Instructions/Handouts: Hypoglycemia in a Person with Diabetes (DC) Activity/Diet/Wound Care/Special Instructions: Activity: As tolerated. Take breaks as needed. Diet: Heart healthy and carb consistent diet. Avoid salts, or foods with hidden salts such as canned or boxed foods and frozen dinners. Special Instructions: Take all of your medications as directed and remember to keep all of your doctor's appointments and follow-up as needed. Continue to monitor blood glucose levels at home 3 times daily and document these findings in a daily log/journal, as you'll need to bring this with you to your next doctor's appointment. I personally called and spoke with office staff at Dr. Purcell's office and informed them that you are being discharged home from the hospital without any insulin or any other diabetic medications at this time. Your blood glucose levels have ranged from 98 to 268 over the past 24 hours, these are pre-and postprandial glucose levels. As we discussed at bedside I would much rather see your blood glucose levels closer to 200 then in the 40s. Again it is important to continue to monitor your blood glucose levels closely and if absolutely needed, Dr. Purcell may further direct you once home glucose levels are evaluated. Also, as discussed with you, it is important to follow up with a neurologist because you will need a prolonged EEG. Thank you for allowing us to participate in your care, it was truly a pleasure having you for our patient!!! Discharge Disposition: HOME WITH HOME HEALTH SERVICES
== END 2023-01-14 16:48 | disposition home health service (06) | DRG 637 ==
LOC: EC 10:39 → OBSVTOIN 14:50 → 3SCARD 14:50
PROVIDERS: ADMIT Student in an Organized Health Care Education/Training Program; ATTEND Student in an Organized Health Care Education/Training Program
PROC: 05H933Z Insertion of Infusion Device into Right Brachial Vein, Percutaneous Approach (ICD-10-PCS; principal; 2023-01-13 07:30)
DX: E11.649 Type 2 diabetes mellitus with hypoglycemia without coma (principal); G93.41 Metabolic encephalopathy; T86.19 Other complication of kidney transplant; E87.1 Hypo-osmolality and hyponatremia; I13.2 Hypertensive heart and chronic kidney disease with heart failure and with stage 5 chronic kidney disease, or end stage renal disease; I50.22 Chronic systolic (congestive) heart failure; N18.4 Chronic kidney disease, stage 4 (severe); I27.20 Pulmonary hypertension, unspecified; D63.1 Anemia in chronic kidney disease; E11.22 Type 2 diabetes mellitus with diabetic chronic kidney disease; E11.40 Type 2 diabetes mellitus with diabetic neuropathy, unspecified; Z79.4 Long term (current) use of insulin; I16.0 Hypertensive urgency; I44.0 Atrioventricular block, first degree; I45.4 Nonspecific intraventricular block; E78.5 Hyperlipidemia, unspecified; E83.42 Hypomagnesemia; E87.6 Hypokalemia; G89.29 Other chronic pain; M54.50 Low back pain, unspecified; I08.1 Rheumatic disorders of both mitral and tricuspid valves; K58.0 Irritable bowel syndrome with diarrhea; R47.81 Slurred speech; Z79.82 Long term (current) use of aspirin; Z79.52 Long term (current) use of systemic steroids; Z79.621 Long term (current) use of calcineurin inhibitor; Z79.2 Long term (current) use of antibiotics; Z79.899 Other long term (current) drug therapy; Z86.16 Personal history of COVID-19; Z87.891 Personal history of nicotine dependence; Z86.19 Personal history of other infectious and parasitic diseases; Y83.0 Surgical operation with transplant of whole organ as the cause of abnormal reaction of the patient, or of later complication, without mention of misadventure at the time of the procedure; Z88.5 Allergy status to narcotic agent; Z88.0 Allergy status to penicillin; Z88.8 Allergy status to other drugs, medicaments and biological substances; Z91.041 Radiographic dye allergy status
CPT/HCPCS: 36415; 70450; 71046; 80053; 80197; 80306; 81001; 82728; 83036; 83540; 83550; 83735; 84443; 84484; 85025; 85027; 85610; 85730; 87045; 87046; 87324; 93005; 93880; 94760; 95816; 96361; 96374; 96375; 99285

== ENCOUNTER 2023-03-02 10:39 | Inpatient (IN) | payer MEDICARE ==
--- NOTE | 2023-03-02 11:24 | ED ---
Female Urogenital HPI - General Chief complaint: Urogenital Stated complaint: AMS,poss UTI Time Seen by Provider: 03/02/23 11:02 Source: patient, family, EMS Mode of arrival: EMS - History of Present Illness Initial comments: The patient is a 72 yr old female with a history of HTN, HLD, DM, renal insufficiency, recurring UTIs, CAD who presents to the ED accompanied by her son for AMS with concern for a UTI. The son states that the patient has been taking tramadol for a foot injury for the last 3-4 days. He thinks that it has caused her to be a little bit more drowsy than normal however over the last few days he's noticed that her urine has been really foul-smelling and the patient has become more weak and not herself. She has had confusion and is not always making sense. He states that she is becoming more weak as well. Patient was admitted to the hospital from the end of November to January for a urinary tract infection that developed into sepsis. He states that since getting out of the hospital she has been more weak and what she normally was. She is moving all her extremities without any focal deficits. The son denies any vomiting or fevers. The patient states she just does not feel well and has some mild suprapubic pressure and lower back pain. The sent a UA in a few days ago for evaluation which does show a UTI. - Related Data Home Medications Medication Instructions Recorded Confirmed Atorvastatin Calcium [Lipitor] 10 mg PO HS 08/11/16 03/02/23 Sodium Bicarbonate Tab 1,300 mg PO TID 08/11/16 03/02/23 amLODIPine [Norvasc] 10 mg PO DAILY 08/11/16 03/02/23 predniSONE 5 mg PO DAILY 08/25/17 03/02/23 Mycophenolate Sodium [Mycophenolic 360 mg PO BID 04/25/20 03/02/23 Acid] Ergocalciferol [Vitamin D2 (1250 1,250 mcg PO Q7D 10/27/21 03/02/23 Mcg = 02659 Iu)] Famotidine 40 mg PO DAILY 10/27/21 03/02/23 carvediloL [Coreg] 25 mg PO BID 10/27/21 03/02/23 Albuterol Inhaler [Ventolin Hfa 2 puff INHALATION RT-DAILY 11/24/22 03/02/23 Inhaler] Aspirin EC [Ecotrin Low Dose] 81 mg PO DAILY 11/24/22 03/02/23 Diphenox-Atrop 2.5-0.025 mg 1 tab PO TID PRN 11/24/22 03/02/23 [Lomotil] Docusate [Colace] 100 mg PO DAILY PRN 11/24/22 03/02/23 Gentamicin 0.1% Cream 1 applic TOPICAL DAILY 11/24/22 03/02/23 Ketoconazole 2% Cream [Nizoral 2%] 1 applic TOPICAL DAILY PRN 11/24/22 03/02/23 Thiamine [Vitamin B-1] 250 mg PO BID 11/24/22 03/02/23 traMADol HCL 50 - 100 mg PO Q6H PRN 11/24/22 03/02/23 Metaxalone [Skelaxin] 800 mg PO BID PRN 01/11/23 03/02/23 Losartan Potassium [Cozaar] 100 mg PO DAILY 03/02/23 03/02/23 Sulfamethox-Tmp 800-160Mg [Bactrim 1 tab PO BID 03/02/23 03/02/23 DS 800-160 mg] Previous Rx's Medication Instructions Recorded cloNIDine HCL [Catapres] 0.2 mg PO TID #90 tab 11/30/22 Furosemide [Lasix] 40 mg PO DAILY #30 tab 12/20/22 Sodium Zirconium Cyclosilicate 10 gm PO BID #60 packet 12/20/22 [Lokelma] Tacrolimus [Prograf] 3 mg PO BID #180 cap 12/20/22 Folic Acid 1 mg PO DAILY 30 Days #30 tab 01/14/23 Allergies Allergy/AdvReac Type Severity Reaction Status Date / Time hydralazine [From Apresoline] Allergy Rash/Hives Verified 03/02/23 13:11 Iodinated Contrast Media Allergy Unknown Verified 03/02/23 13:11 [Iodinated Contrast- Oral and IV Dye] meperidine [From Demerol] Allergy Anaphylaxis Verified 03/02/23 13:11 Penicillins Allergy Rash/Hives Verified 03/02/23 13:11 Review of Systems ROS Statement: Those systems with pertinent positive or pertinent negative responses have been documented in the HPI. ROS Other: All systems not noted in ROS Statement are negative. Past Medical History Past Medical History: No Reported History, Asthma, Diabetes Mellitus, Dialysis, Eye Disorder, Hyperlipidemia, Hypertension, Renal Disease, Skin Disorder Additional Past Medical History / Comment(s): history of covid, IDDM type II, neuropathy bilateral legs/feet, ESRD with past peritoneal/hemodialysis then in 2016 had renal transplant, UTI with sepsis, IBS, benign colon polyps, chronic low back pain, migraines, R eye retinal bleed with injections, L eye detached retina with surgery, anemia. 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 History of Any Multi-Drug Resistant Organisms: ESBL Date of last positivie culture/infection: 2011 approx(PREVIOUSLY CHARTED) MDRO Source:: peritoneal dialysis cath Past Surgical History: Cholecystectomy, Hysterectomy, Orthopedic Surgery Additional Past Surgical History / Comment(s): Peritoneal dialysis cath since removed, hemodialysis cath since removed, 2016 renal transplant, EGD, colonoscopies/benign polypectomy, bilateral eye cataract removals, L eye detached retinal surgery, L knee arthroscopy Past Anesthesia/Blood Transfusion Reactions: No Reported Reaction Additional Past Anesthesia/Blood Transfusion Reaction / Comment(s): has had a hard time coming out of anesthesia Past Psychological History: Anxiety Smoking Status: Former smoker Past Alcohol Use History: None Reported Past Drug Use History: None Reported - Past Family History Mother History Unknown: Yes Additional Family Medical History / Comment(s): Mother of poisoning when pt was 11 yrs old. Father Family Medical History: Vascular Disorder Additional Family Medical History / Comment(s): brain aneurysm General Exam Limitations: no limitations General appearance: alert, in no apparent distress, anxious Head exam: Present: atraumatic Eye exam: Present: normal appearance, PERRL ENT exam: Present: normal exam Neck exam: Present: normal inspection Respiratory exam: Present: normal lung sounds bilaterally Cardiovascular Exam: Present: regular rate, normal rhythm GI/Abdominal exam: Present: soft, other (mild suprapubic pressure, no peritoneal signs or rebound tenderness) Extremities exam: Present: full ROM Back exam: Present: normal inspection, full ROM Neurological exam: Present: alert, other (oriented to person and place, not oriented to situation) Skin exam: Present: warm, dry, other (old skin tears b/l lower extremities) Course Vital Signs 03/02/23 03/02/23 11:09 14:46 Temperature 98.2 F Pulse Rate 78 72 Respiratory 18 18 Rate Blood Pressure 121/71 121/71 O2 Sat by Pulse 99 Oximetry - Reevaluation(s) Reevaluation #1: 03/02/23 1420 Patient required IV Ativan for irritability and agitation and she was trying to get up and walk away. Her son is her healthcare surrogate Discussed with her that she needs to stay for further evaluation and treatment. Discussed lab and imaging results with the son at bedside. Discussed admission plan. Patient will be treated for urinary tract infection, blood cultures drawn prior to antibiotics. Medical Decision Making - Medical Decision Making Was pt. sent in by a medical professional or institution (, PA, QUALITY IMPROVEMENT COORDINATOR, urgent care, hospital, or shelter...) When possible be specific @ -[No] Did you speak to anyone other than the patient for history (EMS, parent, family, police, friend...)? What history was obtained from this source @ -Son at bedside Did you review nursing and triage notes (agree or disagree)? Why? @ -[I reviewed and agree with nursing and triage notes] Were old charts reviewed (outside hosp., previous admission, EMS record, old EKG, old radiological studies, urgent care reports/EKG's, shelter records)? Report findings @ -Yes old charts were reviewed Differential Diagnosis (chest pain, altered mental status, abdominal pain women, abdominal pain men, vaginal bleeding, weakness, fever, dyspnea, syncope, heada sarah, dizziness, GI bleed, back pain, seizure, CVA, palpatations, mental health, musculoskeletal)? @ -Altered mental status, urinary tract infection, CVA, failure to thrive EKG interpreted by me (3pts min.). @ -EKG shows sinus rhythm at a rate of 81 bpm with nonspecific anterolateral and inferior lead changes X-rays interpreted by me (1pt min.). @ -[None done] CT interpreted by me (1pt min.). @ -CT of the head shows no obvious mass or hemorrhage however radiologist is concerned for a remote lacunar infarct U/S interpreted by me (1pt. min.). @ -[None done] What testing was considered but not performed or refused? (CT, X-rays, U/S, labs)? Why? @ -[None] What meds were considered but not given or refused? Why? @ -[None] Did you discuss the management of the patient with other professionals (professionals i.e. , PA, QUALITY IMPROVEMENT COORDINATOR, lab, RT, psych nurse, licensed clinical social worker, bank and savings securities trader, teacher, development officer, spring encaser)? Give summary @ -Discussed patient's symptoms, workup and admission plan with attending ED physician Dr Odonnell. Was smoking cessation discussed for >3mins.? @ -[No] Was critical care preformed (if so, how long)? @ -[No] Were there social determinants of health that impacted care today? How? (Homelessness, low income, unemployed, alcoholism, drug addiction, transportation, low edu. Level, literacy, decrease access to med. care, usp, rehab)? @ -Patient lives at home with her . There is a son locally who visits to help take care of him and is at the bedside Was there de-escalation of care discussed even if they declined (Discuss DNR or withdrawal of care, Hospice)? DNR status @ -[No] What co-morbidities impacted this encounter? (DM, HTN, Smoking, COPD, CAD, Cancer, CVA, ARF, Chemo, Hep., AIDS, mental health diagnosis, sleep apnea, morbid obesity)? @ -Renal failure, history of urinary tract infections Was patient admitted / discharged? Hospital course, mention meds given and route, prescriptions, significant lab abnormalities, going to OR and other pertinent info. @ -[Patient will be admitted for further management of the altered mental status secondary to urinary tract infection, worsening renal failure and new, remote lacunar infarct Undiagnosed new problem with uncertain prognosis? @ -[No] Drug Therapy requiring intensive monitoring for toxicity (Heparin, Nitro, Insulin, Cardizem)? @ -[No] Were any procedures done? @ -[No] Diagnosis/symptom? @ -Altered mental status, urinary tract infection, worsening renal failure, remote lacunar infarct Acute, or Chronic, or Acute on Chronic? @ -[Acute Uncomplicated (without systemic symptoms) or Complicated (systemic symptoms)? @ -[default] Side effects of treatment? @ -[No] Exacerbation, Progression, or Severe Exacerbation? @ -[No] Poses a threat to life or bodily function? How? (Chest pain, [place], [place], pneumonia, PE, COPD, DKA, ARF, appy, cholecystitis, CVA, Diverticulitis, Homicidal, Suicidal, threat to staff... and all critical care pts) @ -[No] - Lab Data Result diagrams: 03/02/23 11:30 03/02/23 11:30 Lab Results 03/02/23 03/02/23 03/02/23 Range/Units 11:30 11:30 11:45 WBC 8.0 (3.8-10.6) k/uL RBC 3.77 L (3.80-5.40) m/uL Hgb 10.6 L (11.4-16.0) gm/dL Hct 35.0 (34.0-46.0) % MCV 92.9 D (80.0-100.0) fL MCH 28.0 (25.0-35.0) pg MCHC 30.1 L (31.0-37.0) g/dL RDW 15.6 H (11.5-15.5) % Plt Count 214 (150-450) k/uL MPV 10.9 Neutrophils % 62 % Lymphocytes % 29 % Monocytes % 6 % Eosinophils % 2 % Basophils % 0 % Neutrophils # 4.9 (1.3-7.7) k/uL Lymphocytes # 2.3 (1.0-4.8) k/uL Monocytes # 0.5 (0-1.0) k/uL Eosinophils # 0.1 (0-0.7) k/uL Basophils # 0.0 (0-0.2) k/uL Hypochromasia Marked Sodium 133 L (137-145) mmol/L Potassium 4.9 (3.5-5.1) mmol/L Chloride 98 (98-107) mmol/L Carbon Dioxide 27 (22-30) mmol/L Anion Gap 8 mmol/L BUN 68 H (7-17) mg/dL Creatinine 6.58 H (0.52-1.04) mg/dL Est GFR (CKD-EPI)AfAm 7 (>60 ml/min/1.73 sqM) Est GFR (CKD-EPI)NonAf 6 (>60 ml/min/1.73 sqM) Glucose 180 H (74-99) mg/dL Calcium 8.8 (8.4-10.2) mg/dL Total Bilirubin 0.7 (0.2-1.3) mg/dL AST 34 (14-36) U/L ALT 15 (4-34) U/L Alkaline Phosphatase 78 (38-126) U/L Troponin I 0.101 H* (0.000-0.034) ng/mL Total Protein 5.9 L (6.3-8.2) g/dL Albumin 3.0 L (3.5-5.0) g/dL Urine Color Urine Appearance (Clear) Urine pH (5.0-8.0) Ur Specific [place] (1.001-1.035) Urine Protein (Negative) Urine Glucose (UA) (Negative) Urine Ketones (Negative) Urine Blood (Negative) Urine Nitrite (Negative) Urine Bilirubin (Negative) Urine Urobilinogen (<2.0) mg/dL Ur Leukocyte Esterase (Negative) Urine RBC (0-5) /hpf Urine WBC (0-5) /hpf Urine WBC Clumps (None) /hpf Urine Bacteria (None) /hpf 03/02/23 Range/Units 15:02 WBC (3.8-10.6) k/uL RBC (3.80-5.40) m/uL Hgb (11.4-16.0) gm/dL Hct (34.0-46.0) % MCV (80.0-100.0) fL MCH (25.0-35.0) pg MCHC (31.0-37.0) g/dL RDW (11.5-15.5) % Plt Count (150-450) k/uL MPV Neutrophils % % Lymphocytes % % Monocytes % % Eosinophils % % Basophils % % Neutrophils # (1.3-7.7) k/uL Lymphocytes # (1.0-4.8) k/uL Monocytes # (0-1.0) k/uL Eosinophils # (0-0.7) k/uL Basophils # (0-0.2) k/uL Hypochromasia Sodium (137-145) mmol/L Potassium (3.5-5.1) mmol/L Chloride (98-107) mmol/L Carbon Dioxide (22-30) mmol/L Anion Gap mmol/L BUN (7-17) mg/dL Creatinine (0.52-1.04) mg/dL Est GFR (CKD-EPI)AfAm (>60 ml/min/1.73 sqM) Est GFR (CKD-EPI)NonAf (>60 ml/min/1.73 sqM) Glucose (74-99) mg/dL Calcium (8.4-10.2) mg/dL Total Bilirubin (0.2-1.3) mg/dL AST (14-36) U/L ALT (4-34) U/L Alkaline Phosphatase (38-126) U/L Troponin I (0.000-0.034) ng/mL Total Protein (6.3-8.2) g/dL Albumin (3.5-5.0) g/dL Urine Color Yellow Urine Appearance Turbid H (Clear) Urine pH 6.0 (5.0-8.0) Ur Specific [place] 1.020 (1.001-1.035) Urine Protein 3+ H (Negative) Urine Glucose (UA) Negative (Negative) Urine Ketones Negative (Negative) Urine Blood Moderate H (Negative) Urine Nitrite Negative (Negative) Urine Bilirubin Negative (Negative) Urine Urobilinogen <2.0 (<2.0) mg/dL Ur Leukocyte Esterase Large H (Negative) Urine RBC 42 H (0-5) /hpf Urine WBC >182 H (0-5) /hpf Urine WBC Clumps Many H (None) /hpf Urine Bacteria Occasional H (None) /hpf - EKG Data -: EKG Interpreted by Me (EKG shows sinus rhythm at a rate 81 bpm nonspecific anterolateral and infer) - Radiology Data Radiology results: report reviewed, image reviewed Disposition Clinical Impression: AMS (altered mental status), UTI (urinary tract infection), Renal failure, Dehydration, Failure to thrive, Lacunar infarct, acute Disposition: ADMITTED IP TO THIS [facility] Condition: Fair Referrals: Raza Purcell MD [Primary Care Provider] - 1-2 days Decision Time: 15:30
[2023-03-02 12:09] LABS: Basophils % (A) 0 %; Eosinophils # (A) 0.1 k/uL (0-0.7); Eosinophils % (A) 2 %; HGB 10.6 gm/dL (11.4-16.0); Hypochromasia Marked; Lymphocytes # (A) 2.3 k/uL (1.0-4.8); Lymphocytes % (A) 29 %; MCHC 30.1 g/dL (31.0-37.0); Mean Platelet Volume 10.9; Monocytes # (A) 0.5 k/uL (0-1.0); Monocytes % (A) 6 %; Neutrophils # (A) 4.9 k/uL (1.3-7.7); Neutrophils % (A) 62 %; Platelet Count 214 k/uL (150-450); RBC 3.77 m/uL (3.80-5.40); RDW 15.6 % (11.5-15.5)
[2023-03-02 12:10] LABS: ALT 15 U/L (4-34); African American GFR (CKD) 7 (>60 ml/min/1.73 sqM); Anion Gap 8 mmol/L; Blood Urea Nitrogen 68 mg/dL (7-17); Calcium 8.8 mg/dL (8.4-10.2); Carbon Dioxide 27 mmol/L (22-30); Chloride 98 mmol/L (98-107); Glucose 180 mg/dL (74-99); Non-African American GFR(CKD) 6 (>60 ml/min/1.73 sqM); Sodium 133 mmol/L (137-145); Total Bilirubin 0.7 mg/dL (0.2-1.3); Total Protein 5.9 g/dL (6.3-8.2)
[2023-03-02 12:15] LABS: AST 34 U/L (14-36); Alkaline Phosphatase 78 U/L (38-126); Potassium 4.9 mmol/L (3.5-5.1)
[2023-03-02 12:18] LABS: MCV 92.9 fL (80.0-100.0)
[2023-03-02] MEDS ORDERED: LORazepam 2 MG/ML INJ IV STA ×2 (12:42→14:47)
--- NOTE | 2023-03-02 13:25 | CT ---
EXAMINATION TYPE: CT brain wo con DATE OF EXAM: 03/02/2023 COMPARISON: 01/11/2023 HISTORY: AMS CT DLP: 1092.4 mGycm Automated exposure control for dose reduction was used. FINDINGS: Exam limited by motion The ventricles, basal cisterns and sulci overlying the cerebral convexities demonstrate mild enlargem ent. There is no evidence for intracranial hemorrhage or sulcal effacement. Remote [place] infarct left basal ganglia. Additional small foci of abnormal signal seen involving the caudate nucleus and deep white matter compatible heart. Stable. There is a significant intracranial atherosclerotic change distal bilateral ICA. There is decreased attenuation about the periventricular white matter and deep white matter of both c erebral hemispheres, compatible with chronic small vessel ischemia. Differential diagnosis does inclu de demyelination. No mass effects are seen.No midline shift. Osseous calvarium is intact. If symptoms persist consider MRI. Hyperostosis of the calvarium. IMPRESSION: DEGENERATIVE AND REMOTE ISCHEMIC CHANGE WITH NO EVIDENCE FOR ACUTE HEMORRHAGE OR MASS EFFECT
[2023-03-02 15:20] LABS: Appearance,Urine Turbid (Clear); Bacteria,Urine Occasional /hpf; Bilirubin,Urine Negative (Negative); Blood,Urine Moderate (Negative); Color,Urine Yellow; Glucose,Urine (UA) Negative (Negative); Ketones,Urine Negative (Negative); Leukocyte Esterase,Urine Large (Negative); Nitrite,Urine Negative (Negative); Protein,Urine 3+ (Negative); RBC,Urine 42 /hpf (0-5); Urobilinogen,Urine <2.0 mg/dL (<2.0); WBC,Urine >182 /hpf (0-5)
[2023-03-02] MEDS ORDERED: cefTRIAXone IN SWFI 1,000 MG/10 ML SYRINGE IVP STA (15:27)
[2023-03-02] MEDS ORDERED: SODIUM CHLORIDE 0.9% 1,000 ML IV STA ×2 (15:27→16:46)
[2023-03-02] MEDS ORDERED: NALOXONE 0.4 MG/ML 1 ML VIAL IV PRN (15:29)
[2023-03-02] MEDS ORDERED: ASPIRIN 325 MG TAB PO STA (17:19)
--- NOTE | 2023-03-02 17:34 | P.HPIM ---
History of Present Illness H&P Date: 03/02/23 72-year-old female with a past medical history of ESRD with previous renal transplant in 2016 on antirejection medication currently with stage IV chronic kidney disease, hypertension, hyperlipidemia, insulin-dependent diabetes mellitus, left eye retinal detachment, and right eye retinal bleeds presents the ED for altered mentation. Patient does not provide much history and appears lethargic so majority of information is obtained from documentation. Per ED documentation, patient has been more drowsy according to the son likely due to taking tramadol over the past 3-4 days for a foot injury. Her son is also noticed that her urine has been foul-smelling and patient has been more weak and unable to get out of bed. The symptoms were concerning to the son which prompted him to bring the patient to the ED. In the ED, vital signs were stable. CBC showed hemoglobin of 10.6. CMP showed sodium of 133, BUN of 68, creatinine 6.58, glucose 180, albumin 3. Troponin was 0.101. Urinalysis showed large leukocyte esterase. Brain CT showed remote ischemic change with no evidence of acute hemorrhage or mass effect in the left basal ganglia. Patient is admitted for further management and workup. Pertinent positives and negatives as discussed in HPI, a complete review of systems was performed and all other systems are negative. General: lethargic Derm: warm, dry Head: atraumatic, normocephalic, symmetric Eyes: EOMI, no lid lag, anicteric sclera Mouth: no lip lesion, mucus membranes dry Cardiovascular: S1S2 reg, no murmur Lungs: CTA bilateral, no rhonchi, no rales , no accessory muscle use Abdominal: soft, nontender to palpation, no guarding, no appreciable organomegaly Ext: no gross muscle atrophy, no edema, no contractures Neuro: no apparent focal neuro deficits Psych: Alert, oriented x 1 Subacute CVA Urinary tract infection Troponin elevation Acute kidney injury on chronic kidney disease Chronic conditions: ESRD with previous renal transplant in 2016 on antirejection medication currently with stage IV chronic kidney disease, hypertension, hyperlipidemia, insulin-dependent diabetes mellitus, left eye retinal detachment, and right eye retinal bleeds Based on my assessment of this patient, this patient meets a high complexity level of care. Patient has a confusion and forgetfulness with severe exacerbation or progression of disease which poses a threat to life or bodily function. Found to have subacute CVA on CT head. Subacute CVA: Stroke work up. Echo. MRI brain. Carotid US. ASA 325 mg PO STAT. ASA 81 mg PO QD. Lipitor 10 mg PO QHS. Neurochecks. Telemetry monitoring. Neurology consult. Urinary tract infection: Rocephin 1g IV QD. Follow UCx. Troponin elevation: Trend Trop. Echo as above. Acute kidney injury on chronic kidney disease: Nephrology consulted. NS at 75 cc/hr. Lovenox SQ for DVT prophylaxis. FULL CODE. I have reviewed the following leasing sales consultant notes: I have reviewed the results of the following tests: CBC, CMP, Trop, UA, Brain CT. I have ordered the following tests: MRI brain. Carotid US. Echo. EKG. A1c, Lipid panel. I have discussed the care of this patient with the following independent historian: Discussed with CADY I have independently interpreted the following test below: I have discussed the management of this patient with the following physician: Past Medical History Past Medical History: No Reported History, Asthma, Diabetes Mellitus, Dialysis, Eye Disorder, Hyperlipidemia, Hypertension, Renal Disease, Skin Disorder Additional Past Medical History / Comment(s): history of covid, IDDM type II, neuropathy bilateral legs/feet, ESRD with past peritoneal/hemodialysis then in 2016 had renal transplant, UTI with sepsis, IBS, benign colon polyps, chronic lo w back pain, migraines, R eye retinal bleed with injections, L eye detached retina with surgery, anemia. 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 History of Any Multi-Drug Resistant Organisms: ESBL Date of last positivie culture/infection: 2011 approx(PREVIOUSLY CHARTED) MDRO Source:: peritoneal dialysis cath Past Surgical History: Cholecystectomy, Hysterectomy, Orthopedic Surgery Additional Past Surgical History / Comment(s): Peritoneal dialysis cath since removed, hemodialysis cath since removed, 2016 renal transplant, EGD, colonoscopies/benign polypectomy, bilateral eye cataract removals, L eye detached retinal surgery, L knee arthroscopy Past Anesthesia/Blood Transfusion Reactions: No Reported Reaction Additional Past Anesthesia/Blood Transfusion Reaction / Comment(s): has had a hard time coming out of anesthesia Past Psychological History: Anxiety Smoking Status: Former smoker Past Alcohol Use History: None Reported Past Drug Use History: None Reported - Past Family History Mother History Unknown: Yes Additional Family Medical History / Comment(s): Mother of poisoning when pt was 11 yrs old. Father Family Medical History: Vascular Disorder Additional Family Medical History / Comment(s): brain aneurysm Medications and Allergies Home Medications Medication Instructions Recorded Confirmed Type Atorvastatin Calcium [Lipitor] 10 mg PO HS 08/11/16 03/02/23 History Sodium Bicarbonate Tab 1,300 mg PO TID 08/11/16 03/02/23 History amLODIPine [Norvasc] 10 mg PO DAILY 08/11/16 03/02/23 History predniSONE 5 mg PO DAILY 08/25/17 03/02/23 History Mycophenolate Sodium [Mycophenolic 360 mg PO BID 04/25/20 03/02/23 History Acid] Ergocalciferol [Vitamin D2 (1250 1,250 mcg PO Q7D 10/27/21 03/02/23 History Mcg = 60438 Iu)] Famotidine 40 mg PO DAILY 10/27/21 03/02/23 History carvediloL [Coreg] 25 mg PO BID 10/27/21 03/02/23 History Albuterol Inhaler [Ventolin Hfa 2 puff INHALATION RT-DAILY 11/24/22 03/02/23 History Inhaler] Aspirin EC [Ecotrin Low Dose] 81 mg PO DAILY 11/24/22 03/02/23 History Diphenox-Atrop 2.5-0.025 mg 1 tab PO TID PRN 11/24/22 03/02/23 History [Lomotil] Docusate [Colace] 100 mg PO DAILY PRN 11/24/22 03/02/23 History Gentamicin 0.1% Cream 1 applic TOPICAL DAILY 11/24/22 03/02/23 History Ketoconazole 2% Cream [Nizoral 2%] 1 applic TOPICAL DAILY PRN 11/24/22 03/02/23 History Thiamine [Vitamin B-1] 250 mg PO BID 11/24/22 03/02/23 History traMADol HCL 50 - 100 mg PO Q6H PRN 11/24/22 03/02/23 History cloNIDine HCL [Catapres] 0.2 mg PO TID #90 tab 11/30/22 03/02/23 Rx Furosemide [Lasix] 40 mg PO DAILY #30 tab 12/20/22 03/02/23 Rx Sodium Zirconium Cyclosilicate 10 gm PO BID #60 packet 12/20/22 03/02/23 Rx [Lokelma] Tacrolimus [Prograf] 3 mg PO BID #180 cap 12/20/22 03/02/23 Rx Metaxalone [Skelaxin] 800 mg PO BID PRN 01/11/23 03/02/23 History Folic Acid 1 mg PO DAILY 30 Days #30 tab 01/14/23 03/02/23 Rx Losartan Potassium [Cozaar] 100 mg PO DAILY 03/02/23 03/02/23 History Sulfamethox-Tmp 800-160Mg [Bactrim 1 tab PO BID 03/02/23 03/02/23 History DS 800-160 mg] Allergies Allergy/AdvReac Type Severity Reaction Status Date / Time hydralazine [From Apresoline] Allergy Rash/Hives Verified 03/02/23 13:11 Iodinated Contrast Media Allergy Unknown Verified 03/02/23 13:11 [Iodinated Contrast- Oral and IV Dye] meperidine [From Demerol] Allergy Anaphylaxis Verified 03/02/23 13:11 Penicillins Allergy Rash/Hives Verified 03/02/23 13:11 Physical Exam Vitals: Vital Signs Temp Pulse Resp BP Pulse Ox 03/02/23 14:46 72 18 121/71 03/02/23 11:09 98.2 F 78 18 121/71 99 Intake and Output 03/02/23 03/02/23 03/02/23 06:59 14:59 22:59 Output Total 50 Balance -50 Output: Urine 50 Uretheral ([place]) 50 Other: Weight 60.237 kg Results CBC & Chem 7: 03/02/23 11:30 03/02/23 11:30 Labs: Abnormal Lab Results - Last 24 Hours (Table) 03/02/23 03/02/23 03/02/23 Range/Units 11:30 11:30 11:45 RBC 3.77 L (3.80-5.40) m/uL Hgb 10.6 L (11.4-16.0) gm/dL MCHC 30.1 L (31.0-37.0) g/dL RDW 15.6 H (11.5-15.5) % Sodium 133 L (137-145) mmol/L BUN 68 H (7-17) mg/dL Creatinine 6.58 H (0.52-1.04) mg/dL Glucose 180 H (74-99) mg/dL Troponin I 0.101 H* (0.000-0.034) ng/mL Total Protein 5.9 L (6.3-8.2) g/dL Albumin 3.0 L (3.5-5.0) g/dL Urine Appearance (Clear) Urine Protein (Negative) Urine Blood (Negative) Ur Leukocyte Esterase (Negative) Urine RBC (0-5) /hpf Urine WBC (0-5) /hpf Urine WBC Clumps (None) /hpf Urine Bacteria (None) /hpf 03/02/23 Range/Units 15:02 RBC (3.80-5.40) m/uL Hgb (11.4-16.0) gm/dL MCHC (31.0-37.0) g/dL RDW (11.5-15.5) % Sodium (137-145) mmol/L BUN (7-17) mg/dL Creatinine (0.52-1.04) mg/dL Glucose (74-99) mg/dL Troponin I (0.000-0.034) ng/mL Total Protein (6.3-8.2) g/dL Albumin (3.5-5.0) g/dL Urine Appearance Turbid H (Clear) Urine Protein 3+ H (Negative) Urine Blood Moderate H (Negative) Ur Leukocyte Esterase Large H (Negative) Urine RBC 42 H (0-5) /hpf Urine WBC >182 H (0-5) /hpf Urine WBC Clumps Many H (None) /hpf Urine Bacteria Occasional H (None) /hpf
[2023-03-02 19:09] LABS: Partial Thromboplastin Time 25.6 sec (22.0-30.0)
[2023-03-02 19:10] LABS: Prothrombin Time 10.6 sec (9.0-12.0)
--- NOTE | 2023-03-02 21:10 | US ---
EXAMINATION TYPE: US carotid duplex BILAT DATE OF EXAM: 03/02/2023 COMPARISON: 01/12/23 CLINICAL INDICATION: Female, 72 years old with history of Stenosis; Stenosis Limited due to pt uncooperation. Pt kept turning head and pushing my hand away. TECHNIQUE: Carotid duplex ultrasound examination. Indirect Doppler criteria was utilized. FINDINGS: EXAM MEASUREMENTS: RIGHT: Peak Systolic Velocity (PSV) cm/sec ----- Right CCA: 27.9 ----- Right ICA: 103.4 ----- Right ECA: 33.9 ICA/CCA ratio: 3.7 RIGHT: End Diastole cm/sec ----- Right CCA: 8.2 ----- Right ICA: 25.8 ----- Right ECA: 3.4 LEFT: Peak Systolic Velocity (PSV) cm/sec ----- Left CCA: 30.4 ----- Left ICA: 104.8 ----- Left ECA: Not seen ICA/CCA ratio: 3.4 LEFT: End Diastole cm/sec ----- Left CCA: 7.8 ----- Left ICA: 22.5 ----- Left ECA: Not seen VERTEBRALS (direction of flow): Right Vertebral: Antegrade Left Vertebral: Antegrade Rhythm: Normal TRANSPLANTER NOTES: Plaque seen in bilateral bulbs IMPRESSION: Less than 50% stenosis of the bilateral carotid bifurcations. Criteria for Assigning % of Stenosis / Diameter reduction (Estimation based on the indirect measurements of the internal carotid artery velocities (ICA PSV). 1. Normal (no stenosis)=ICA PSV < 125 cm/s: ratio < 2.0: ICA EDV<40 cm/s. 2. Less than 50% stenosis=ICA PSV < 125 cm/s: ratio < 2.0: ICA EDV<40 cm/s. 3. 50 to 69% stenosis=ICA PSV of 125 to 230 cm/s: ration 2.0 ? 4.0: ICA EDV 40-100 cm/s. 4. Greater than 70% stenosis to near occlusion= ICA PSV > 230 cm/s: ratio > 4.0: ICA EDV > 100 cm/s. 5. Near occlusion= ICA PSV velocities may be low or undetectable: variable ratio and ICA EDV. 6. Total occlusion=unable to detect flow.
[2023-03-03] MEDS: carvediloL 12.5 MG TAB PO SCH ×3 (00:45→18:18)
[2023-03-03] MEDS: ATORVASTATIN 10 MG TAB PO SCH ×2 (00:45→20:00)
[2023-03-03] MEDS: SODIUM BICARBONATE TAB 650 MG TAB PO SCH ×3 (00:46→20:00)
[2023-03-03] MEDS: cloNIDine HCL 0.2 MG TAB PO SCH ×4 (01:01→20:10)
[2023-03-03] MEDS: TACROLIMUS 1 MG CAP PO SCH ×3 (01:01→20:00)
[2023-03-03] MEDS: SODIUM ZIRCONIUM CYCLOSILICATE 10 GM PACKET PO SCH ×2 (01:01→11:38)
[2023-03-03] MEDS: MYCOPHENOLATE SODIUM DR 180 MG TABLET.DR PO SCH ×3 (01:01→20:00)
[2023-03-03 04:52] LABS: Glucose,Whole Blood 159 mg/dL (70-110)
[2023-03-03 07:10] LABS: Glucose,Whole Blood 162 mg/dL (70-110)
[2023-03-03] MEDS ORDERED: FUROSEMIDE 40 MG TAB PO SCH (09:00)
[2023-03-03] MEDS ORDERED: FAMOTIDINE 20 MG TAB PO SCH (09:00)
[2023-03-03] MEDS ORDERED: LOSARTAN 50 MG TAB PO SCH (09:00)
[2023-03-03 09:04] LABS: African American GFR (CKD) 6 (>60 ml/min/1.73 sqM); Anion Gap 9 mmol/L; Blood Urea Nitrogen 67 mg/dL (7-17); Calcium 8.7 mg/dL (8.4-10.2); Carbon Dioxide 29 mmol/L (22-30); Chloride 99 mmol/L (98-107); Glucose 161 mg/dL (74-99); Non-African American GFR(CKD) 6 (>60 ml/min/1.73 sqM); Potassium 4.1 mmol/L (3.5-5.1); Sodium 137 mmol/L (137-145)
--- NOTE | 2023-03-03 11:11 | P.CNNES ---
History of Present Illness Consult date: 03/03/23 Requesting physician: Emmanuelle Caldwell Reason for Consult: infarct History of Present Illness: This is a 72-year-old woman with multiple medical problems who presents to the emergency department for altered mental status. History was obtained from medical records. Seems the patient the presented the was lethargic but per the ED note patient has been more drowsy than this I notified the ED team. She's been taking tramadol over the last 3-4 days for a foot injury and the urine has been foul-smelling and been more week and unable to get out of bed. Upon seeing the patient remains drowsy. Seems the patient has underlying history of end-stage renal disease with previous renal transplants and is on anti-and rejection medication currently is a stage IV chronic kidney disease, hypertension, hyperlipidemia, insulin- dependent diabetes, left retinal detachment and right eye retinal bleed. Some of the workup during his hospital visit consisted of: Hemoglobin 7.6, red blood cells 3.77. Sodium is 133, BUN 16, creatinine 6.58, glucose is 180, troponin is a 0.10 on initial presentation Calcium AST ALT are within normal limits Urinalysis seems suggestive of underlying urinary tract infection CT of the head is reported as degenerative and remote ischemic change with no evidence for acute hemorrhage or mass effect. I reviewed the CT of the head and felt patient has lacunar infarct over the left thalamus that appears old. Carotid duplex was reported as less than 50% stenosis of bilateral carotid bifurcation. Review of Systems The pertinent positive and negative as per HPI. Past Medical History Past Medical History: No Reported History, Asthma, Diabetes Mellitus, Dialysis, Eye Disorder, Hyperlipidemia, Hypertension, Renal Disease, Skin Disorder Additional Past Medical History / Comment(s): history of covid, IDDM type II, neuropathy bilateral legs/feet, ESRD with past peritoneal/hemodialysis then in 2016 had renal transplant, UTI with sepsis, IBS, benign colon polyps, chronic low back pain, migraines, R eye retinal bleed with injections, L eye detached retina with surgery, anemia. 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 History of Any Multi-Drug Resistant Organisms: ESBL Date of last positivie culture/infection: 2011 approx(PREVIOUSLY CHARTED) MDRO Source:: peritoneal dialysis cath Past Surgical History: Cholecystectomy, Hysterectomy, Orthopedic Surgery Additional Past Surgical History / Comment(s): Peritoneal dialysis cath since removed, hemodialysis cath since removed, 2016 renal transplant, EGD, colonoscopies/benign polypectomy, bilateral eye cataract removals, L eye detached retinal surgery, L knee arthroscopy Past Anesthesia/Blood Transfusion Reactions: No Reported Reaction Additional Past Anesthesia/Blood Transfusion Reaction / Comment(s): has had a hard time coming out of anesthesia Past Psychological History: Anxiety Additional Psychological History / Comment(s): 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 She is independent. Smoking Status: Former smoker Past Alcohol Use History: None Reported Additional Past Alcohol Use History / Comment(s): Pt started smoking 1979,quit smoking 1989, smoked 3 packs per week. Past Drug Use History: None Reported - Past Family History Mother History Unknown: Yes Additional Family Medical History / Comment(s): Mother of poisoning when pt was 11 yrs old. Father Family Medical History: Vascular Disorder Additional Family Medical History / Comment(s): brain aneurysm Medications and Allergies Home Medications Medication Instructions Recorded Confirmed Type Atorvastatin Calcium [Lipitor] 10 mg PO HS 08/11/16 03/02/23 History Sodium Bicarbonate Tab 1,300 mg PO TID 08/11/16 03/02/23 History amLODIPine [Norvasc] 10 mg PO DAILY 08/11/16 03/02/23 History predniSONE 5 mg PO DAILY 08/25/17 03/02/23 History Mycophenolate Sodium [Mycophenolic 360 mg PO BID 04/25/20 03/02/23 History Acid] Ergocalciferol [Vitamin D2 (1250 1,250 mcg PO Q7D 10/27/21 03/02/23 History Mcg = 82842 Iu)] Famotidine 40 mg PO DAILY 10/27/21 03/02/23 History carvediloL [Coreg] 25 mg PO BID 10/27/21 03/02/23 History Albuterol Inhaler [Ventolin Hfa 2 puff INHALATION RT-DAILY 11/24/22 03/02/23 History Inhaler] Aspirin EC [Ecotrin Low Dose] 81 mg PO DAILY 11/24/22 03/02/23 History Diphenox-Atrop 2.5-0.025 mg 1 tab PO TID PRN 11/24/22 03/02/23 History [Lomotil] Docusate [Colace] 100 mg PO DAILY PRN 11/24/22 03/02/23 History Gentamicin 0.1% Cream 1 applic TOPICAL DAILY 11/24/22 03/02/23 History Ketoconazole 2% Cream [Nizoral 2%] 1 applic TOPICAL DAILY PRN 11/24/22 03/02/23 History Thiamine [Vitamin B-1] 250 mg PO BID 11/24/22 03/02/23 History traMADol HCL 50 - 100 mg PO Q6H PRN 11/24/22 03/02/23 History cloNIDine HCL [Catapres] 0.2 mg PO TID #90 tab 11/30/22 03/02/23 Rx Furosemide [Lasix] 40 mg PO DAILY #30 tab 12/20/22 03/02/23 Rx Sodium Zirconium Cyclosilicate 10 gm PO BID #60 packet 12/20/22 03/02/23 Rx [Lokelma] Tacrolimus [Prograf] 3 mg PO BID #180 cap 12/20/22 03/02/23 Rx Metaxalone [Skelaxin] 800 mg PO BID PRN 01/11/23 03/02/23 History Folic Acid 1 mg PO DAILY 30 Days #30 tab 01/14/23 03/02/23 Rx Losartan Potassium [Cozaar] 100 mg PO DAILY 03/02/23 03/02/23 History Sulfamethox-Tmp 800-160Mg [Bactrim 1 tab PO BID 03/02/23 03/02/23 History DS 800-160 mg] Allergies Allergy/AdvReac Type Severity Reaction Status Date / Time hydralazine [From Apresoline] Allergy Rash/Hives Verified 03/02/23 13:11 Iodinated Contrast Media Allergy Unknown Verified 03/02/23 13:11 [Iodinated Contrast- Oral and IV Dye] meperidine [From Demerol] Allergy Anaphylaxis Verified 03/02/23 13:11 Penicillins Allergy Rash/Hives Verified 03/02/23 13:11 Physical Examination - Vital Signs Vital Signs: Vital Signs Temp Pulse Pulse Resp BP BP Pulse Ox 03/03/23 07:58 97.7 F 86 13 151/57 98 03/03/23 00:20 98.3 F 64 15 162/65 99 03/03/23 00:15 64 15 03/02/23 22:57 77 18 135/67 98 03/02/23 17:45 67 18 142/68 95 03/02/23 14:46 72 18 121/71 03/02/23 11:09 98.2 F 78 18 121/71 99 Intake and Output 03/02/23 03/03/23 03/03/23 22:59 06:59 14:59 Output Total 100 Balance -100 Output: Urine 100 Other: Voiding Method Diaper Weight 60.237 kg GENERAL: The patient is lying in bed and is not in acute distress. NEUROLOGICAL: Examination is limited as of her condition and cooperation She is drowsy but is awake and able to verbal stimuli. She is oriented to self. She stated she is in [facility]. She is following very few simple commands such as showing a thumbs up and attempting to stick out her tongue. Pupils are round equal and reactive to light. The pupils are round at 3-4 mm bilaterally. Patient has left nausea label flattening that seems questionable. Language is limited but does not appear dysarthric. Motor: Strength is limited assessment in individual muscle because of her cooperation but I felt the left arm extension was weaker on the left than the right and the left lower extremity seems weaker than the right and left upper extremity seems 4+ and the left lower extremity seems about a 3-4 while right lower extremity as seen 4+. Reflexes as 1 positive throughout Plantar are mute bilaterally Results - Laboratory Findings CBC and BMP: 03/02/23 11:30 03/03/23 08:05 Abnormal Lab Findings: Abnormal Labs 03/02/23 03/02/23 03/02/23 11:30 11:30 11:45 RBC 3.77 L Hgb 10.6 L MCHC 30.1 L RDW 15.6 H Sodium 133 L BUN 68 H Creatinine 6.58 H Glucose 180 H POC Glucose (mg/dL) Troponin I 0.101 H* Total Protein 5.9 L Albumin 3.0 L Urine Appearance Urine Protein Urine Blood Ur Leukocyte Esterase Urine RBC Urine WBC Urine WBC Clumps Urine Bacteria 03/02/23 03/02/23 03/02/23 15:02 17:34 21:44 RBC Hgb MCHC RDW Sodium BUN Creatinine Glucose POC Glucose (mg/dL) Troponin I 0.115 H* 0.103 H* Total Protein Albumin Urine Appearance Turbid H Urine Protein 3+ H Urine Blood Moderate H Ur Leukocyte Esterase Large H Urine RBC 42 H Urine WBC >182 H Urine WBC Clumps Many H Urine Bacteria Occasional H 03/03/23 03/03/23 03/03/23 04:50 07:04 08:05 RBC Hgb MCHC RDW Sodium BUN 67 H Creatinine 6.76 H Glucose 161 H POC Glucose (mg/dL) 159 H 162 H Troponin I Total Protein Albumin Urine Appearance Urine Protein Urine Blood Ur Leukocyte Esterase Urine RBC Urine WBC Urine WBC Clumps Urine Bacteria Assessment and Plan Assessment: This is a 72-year-old woman with multiple medical problems who presents to the emergency department for altered mental status. She's been taking tramadol over the last 3-4 days for a foot injury and the urine has been foul-smelling and been more week and unable to get out of bed. Her urinalysis seems suggestive of possible underlying urinary tract infection Mental status seems due to underlying UTI as well as out worsening of acute on chronic kidney insufficiency was component of metabolic encephalopathy. Likely acute urinary tract infection Acute on chronic kidney insufficiency On CT I felt the patient had the old lacunar left thalamus stroke History of End-stage renal disease and that she had a previous renal transplant and currently stage IV chronic kidney disease Hypertension Hyperlipidemia Insulin-dependent diabetes Plan: MRI the brain is ordered by the primary team is pending Ordered a routine EEG Patient had a recent TSH on January 2023 which was normal I ordered ammonia level, vitamin B-12, folate She is on aspirin 81 mg and Lipitor tomograms daily at bedtime. We'll defer the rest of the medical management to primary team The plan is discussed with the patient's nurse. Thank you for the consultation. Time with Patient: Greater than 30
[2023-03-03] MEDS: FAMOTIDINE 20 MG TAB PO SCH (11:36)
[2023-03-03] MEDS: predniSONE 5 MG TAB PO SCH (11:36)
[2023-03-03] MEDS: ENOXAPARIN 30 MG/0.3 ML SYRINGE SQ SCH (11:37)
[2023-03-03] MEDS: amLODIPine 10 MG TAB PO SCH (11:37)
[2023-03-03] MEDS: ASPIRIN 81 MG PO SCH (11:37)
[2023-03-03 11:39] LABS: Chol/HDL Ratio 5.12 Ratio; LDL Cholesterol,Calculated 74.3 mg/dL (0.0-131.0)
[2023-03-03 12:03] LABS: Glucose,Whole Blood 171 mg/dL (70-110)
--- NOTE | 2023-03-03 12:47 | P.NPCON ---
History of Present Illness - Reason for Consult acute renal failure - History of Present Illness Patient is a 72-year-old female with history of chronic kidney disease NKF stage 4-5 status post donor renal transplant in 2016. Patient's baseline creatinine has been around 3-3.5 mg/dL. Patient is admitted to the hospital with mental status changes. According to her son patient has not been eating or drinking much. There was concern for UTI as milky urine was noted in the Walsh catheter which w as placed in the ER. No history of fever White count not elevated on CBC. Serum creatinine was 6.5 on admission and increased to 6.7. Blood pressure has not been low, in fact it is high. Patient is maintained on Cozaar which will be held. Patient has been compliant with her immunosuppressive medications. No history of nausea vomiting or diarrhea. Review of Systems As per HPI Past Medical History Past Medical History: No Reported History, Asthma, Diabetes Mellitus, Dialysis, Eye Disorder, Hyperlipidemia, Hypertension, Renal Disease, Skin Disorder Additional Past Medical History / Comment(s): history of covid, IDDM type II, neuropathy bilateral legs/feet, ESRD with past peritoneal/hemodialysis then in 2016 had renal transplant, UTI with sepsis, IBS, benign colon polyps, chronic low back pain, migraines, R eye retinal bleed with injections, L eye detached retina with surgery, anemia. 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 History of Any Multi-Drug Resistant Organisms: ESBL Date of last positivie culture/infection: 2011 approx(PREVIOUSLY CHARTED) MDRO Source:: peritoneal dialysis cath Past Surgical History: Cholecystectomy, Hysterectomy, Orthopedic Surgery Additional Past Surgical History / Comment(s): Peritoneal dialysis cath since removed, hemodialysis cath since removed, 2016 renal transplant, EGD, colonoscopies/benign polypectomy, bilateral eye cataract removals, L eye detached retinal surgery, L knee arthroscopy Past Anesthesia/Blood Transfusion Reactions: No Reported Reaction Additional Past Anesthesia/Blood Transfusion Reaction / Comment(s): has had a hard time coming out of anesthesia Past Psychological History: Anxiety Additional Psychological History / Comment(s): 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 She is independent. Smoking Status: Former smoker Past Alcohol Use History: None Reported Additional Past Alcohol Use History / Comment(s): Pt started smoking 1979,quit smoking 1989, smoked 3 packs per week. Past Drug Use History: None Reported - Past Family History Mother History Unknown: Yes Additional Family Medical History / Comment(s): Mother of poisoning when pt was 11 yrs old. Father Family Medical History: Vascular Disorder Additional Family Medical History / Comment(s): brain aneurysm Medications and Allergies Home Medications Medication Instructions Recorded Confirmed Type Atorvastatin Calcium [Lipitor] 10 mg PO HS 08/11/16 03/02/23 History Sodium Bicarbonate Tab 1,300 mg PO TID 08/11/16 03/02/23 History amLODIPine [Norvasc] 10 mg PO DAILY 08/11/16 03/02/23 History predniSONE 5 mg PO DAILY 08/25/17 03/02/23 History Mycophenolate Sodium [Mycophenolic 360 mg PO BID 04/25/20 03/02/23 History Acid] Ergocalciferol [Vitamin D2 (1250 1,250 mcg PO Q7D 10/27/21 03/02/23 History Mcg = [id number] Iu)] Famotidine 40 mg PO DAILY 10/27/21 03/02/23 History carvediloL [Coreg] 25 mg PO BID 10/27/21 03/02/23 History Albuterol Inhaler [Ventolin Hfa 2 puff INHALATION RT-DAILY 11/24/22 03/02/23 History Inhaler] Aspirin EC [Ecotrin Low Dose] 81 mg PO DAILY 11/24/22 03/02/23 History Diphenox-Atrop 2.5-0.025 mg 1 tab PO TID PRN 11/24/22 03/02/23 History [Lomotil] Docusate [Colace] 100 mg PO DAILY PRN 11/24/22 03/02/23 History Gentamicin 0.1% Cream 1 applic TOPICAL DAILY 11/24/22 03/02/23 History Ketoconazole 2% Cream [Nizoral 2%] 1 applic TOPICAL DAILY PRN 11/24/22 03/02/23 History Thiamine [Vitamin B-1] 250 mg PO BID 11/24/22 03/02/23 History traMADol HCL 50 - 100 mg PO Q6H PRN 11/24/22 03/02/23 History cloNIDine HCL [Catapres] 0.2 mg PO TID #90 tab 11/30/22 03/02/23 Rx Furosemide [Lasix] 40 mg PO DAILY #30 tab 12/20/22 03/02/23 Rx Sodium Zirconium Cyclosilicate 10 gm PO BID #60 packet 12/20/22 03/02/23 Rx [Lokelma] Tacrolimus [Prograf] 3 mg PO BID #180 cap 12/20/22 03/02/23 Rx Metaxalone [Skelaxin] 800 mg PO BID PRN 01/11/23 03/02/23 History Folic Acid 1 mg PO DAILY 30 Days #30 tab 01/14/23 03/02/23 Rx Losartan Potassium [Cozaar] 100 mg PO DAILY 03/02/23 03/02/23 History Sulfamethox-Tmp 800-160Mg [Bactrim 1 tab PO BID 03/02/23 03/02/23 History DS 800-160 mg] Allergies Allergy/AdvReac Type Severity Reaction Status Date / Time hydralazine [From Apresoline] Allergy Rash/Hives Verified 03/02/23 13:11 Iodinated Contrast Media Allergy Unknown Verified 03/02/23 13:11 [Iodinated Contrast- Oral and IV Dye] meperidine [From Demerol] Allergy Anaphylaxis Verified 03/02/23 13:11 Penicillins Allergy Rash/Hives Verified 03/02/23 13:11 Physical Exam Vitals: Vital Signs Temp Pulse Pulse Resp BP BP Pulse Ox 03/03/23 07:58 97.7 F 86 13 151/57 98 03/03/23 00:20 98.3 F 64 15 162/65 99 03/03/23 00:15 64 15 03/02/23 22:57 77 18 135/67 98 03/02/23 17:45 67 18 142/68 95 03/02/23 14:46 72 18 121/71 Intake and Output 03/02/23 03/03/23 03/03/23 22:59 06:59 14:59 Output Total 100 200 Balance -100 -200 Output: Urine 100 200 Other: Voiding Method Diaper Weight 60.237 kg Patient is awake, comfortable, no acute distress She does recognize me. Examination of the heart S1 and S2 Examination of the lungs bilateral breath sounds are heard Abdomen is soft nontender Examination of the lower extremities shows edema 1+ bilaterally BUSINESS SYSTEMS ARCHITECT exam grossly intact, patient is moving all 4 extremities. Results - Lab Results Most recent lab results Calcium 8.7 mg/dL (8.4-10.2) 03/03/23 08:05 09/27/23 11:30 03/03/23 08:05 Assessment and Plan Assessment: 1. Acute kidney injury on top of chronic kidney disease, most likely ATN currently nonoliguric. Etiology underlying infection/sepsis as well as volume depletion. 2. Chronic kidney disease NKF stage IV with baseline creatinine around 3-3.5 mg/dL secondary to chronic allograft nephropathy, diabetic kidney disease. 3. Status post donor renal transplant 2015 4. Chronic systolic CHF with ejection fraction 40-45% with [id number] mi tral regurgitation and moderate tricuspid regurgitation. 5. Hypertension with CK D 6. UTI. Can DC Walsh catheter. Urine culture is pending 7. Mental status changes likely related to underlying infection and possible element of uremia. Plan: DC Cozaar Add IV fluids Check a Prograf level Hold Lasix Check chest x-ray Repeat labs in a.m. Discussed renal replacement therapy with the patient if renal function not improved in the next 24-48 hours. Continue empiric antibiotics. DC lokelma as it can cause edema. Serum potassium is at 4.9. Avery decrease sodium bicarb to twice a day Thank you for the consultation. We will continue to follow the patient with you during her hospitalization.
--- NOTE | 2023-03-03 15:15 | P.PN ---
Subjective Progress Note Date: 03/03/23 72-year-old female with a past medical history of ESRD with previous renal transplant in 2016 on antirejection medication currently with stage IV chronic kidney disease, hypertension, hyperlipidemia, insulin-dependent diabetes mellitus, left eye retinal detachment, and right eye retinal bleeds presents the ED for altered mentation. Patient does not provide much history and appears lethargic so majority of information is obtained from documentation. Per ED documentation, patient has been more drowsy according to the son likely due to taking tramadol over the past 3-4 days for a foot injury. Her son is also noticed that her urine has been foul-smelling and patient has been more weak and unable to get out of bed. The symptoms were concerning to the son which prompted him to bring the patient to the ED. In the ED, vital signs were stable. CBC showed hemoglobin of 10.6. CMP showed sodium of 133, BUN of 68, creatinine 6.58, glucose 180, albumin 3. Troponin was 0.101. Urinalysis showed large leukocyte esterase. Brain CT showed remote ischemic change with no evidence of acute hemorrhage or mass effect in the left basal ganglia. Patient is admitted for further management and workup. 03/03 Patient was seen and examined. Pleasantly confused. Much more alert today. Not lethargic. She has no complaints. Troponin 0.101, 0.115, 0.103. CUS shows minimal plaque in BL carotids. Discussed with Dr. 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 Nephrology recommends tacrolimus level, CXR, DC Lokelma, decreased NaHCO3, possible renal replacement if renal function does not improve. BMP shows BUN 67, Cr 6.76. Lipid panel shows T. Chol 145, TG 212, LDL 74.3. General: No distress. Pleasantly confused Derm: warm, dry Head: atraumatic, normocephalic, symmetric Eyes: EOMI, no lid lag, anicteric sclera Mouth: no lip lesion, mucus membranes dry Cardiovascular: S1S2 reg, no murmur Lungs: CTA bilateral, no rhonchi, no rales , no accessory muscle use Abdominal: soft, nontender to palpation, no guarding, no appreciable organomegaly Ext: no gross muscle atrophy, no edema, no contractures Neuro: no apparent focal neuro deficits Psych: Alert, oriented x 1 Acute metabolic encephalopathy Subacute CVA Urinary tract infection Troponin elevation Acute kidney injury on chronic kidney disease Chronic conditions: ESRD with previous renal transplant in 2016 on antirejection medication currently with stage IV chronic kidney disease, hypertension, hyperlipidemia, insulin-dependent diabetes mellitus, left eye retinal detachment, and right eye retinal bleeds Based on my assessment of this patient, this patient meets a high complexity level of care. Patient has a confusion and forgetfulness with severe exacerbation or progression of disease which poses a threat to life or bodily function. Found to have subacute CVA on CT head. Acute metabolic encephalopathy: Multifactorial. Neurology recommends EEG, B12, Folate. Subacute CVA: Stroke work up. Echo. MRI brain. Carotid US as above. ASA 81 mg PO QD. Lipitor 10 mg PO QHS. Neurochecks. Telemetry monitoring. Neurology on board. Urinary tract infection: Rocephin 1g IV QD. Follow UCx. Troponin elevation: Flat. ACS ruled out. Echo as above. Acute kidney injury on chronic kidney disease: Nephrology consulted. NS at 75 cc/hr. Lovenox SQ for DVT prophylaxis. FULL CODE. I have reviewed the following baby registry sales consultant notes: Nephrology, Neurology note. I have reviewed the results of the following tests: CBC, BMP, Trop, Lipid panel, CUS. I have ordered the following tests: MRI brain. Echo. BMP. Agree with tacrolimus level, CXR, EEG, B12, Folate. I have discussed the care of this patient with the following independent historian: I have independently interpreted the following test below: I have discussed the management of this patient with the following physician: Discussed with Dr. Lopez Objective - Vital Signs Vital signs: Vital Signs Temp 98.6 F 03/03/23 11:55 Pulse 86 03/03/23 11:55 Resp 14 03/03/23 11:55 BP 182/78 03/03/23 11:55 Pulse Ox 97 03/03/23 11:55 FiO2 Intake & Output 03/02/23 03/03/23 03/03/23 18:59 06:59 18:59 Output Total 50 100 200 Balance -50 -100 -200 Weight 60.237 kg 60.237 kg Output: Urine 50 100 200 Uretheral (Walsh) 50 Other: Voiding Method Diaper Diaper Indwelling Catheter - Labs CBC & Chem 7: 03/02/23 11:30 03/03/23 08:05 Labs: Abnormal Lab Results - Last 24 Hours (Table) 03/02/23 03/02/23 03/02/23 Range/Units 11:30 15:02 17:34 BUN (7-17) mg/dL Creatinine (0.52-1.04) mg/dL Glucose (74-99) mg/dL POC Glucose (mg/dL) (70-110) mg/dL Troponin I 0.115 H* (0.000-0.034) ng/mL Triglycerides 212.00 H (0.00-149.00) mg/dL VLDL Cholesterol, Calc 42.40 H (5.00-40.00) mg/dL HDL Cholesterol 28.30 L (40.00-60.00) mg/dL Urine Appearance Turbid H (Clear) Urine Protein 3+ H (Negative) Urine Blood Moderate H (Negative) Ur Leukocyte Esterase Large H (Negative) Urine RBC 42 H (0-5) /hpf Urine WBC >182 H (0-5) /hpf Urine WBC Clumps Many H (None) /hpf Urine Bacteria Occasional H (None) /hpf 03/02/23 03/03/23 03/03/23 Range/Units 21:44 04:50 07:04 BUN (7-17) mg/dL Creatinine (0.52-1.04) mg/dL Glucose (74-99) mg/dL POC Glucose (mg/dL) 159 H 162 H (70-110) mg/dL Troponin I 0.103 H* (0.000-0.034) ng/mL Triglycerides (0.00-149.00) mg/dL VLDL Cholesterol, Calc (5.00-40.00) mg/dL HDL Cholesterol (40.00-60.00) mg/dL Urine Appearance (Clear) Urine Protein (Negative) Urine Blood (Negative) Ur Leukocyte Esterase (Negative) Urine RBC (0-5) /hpf Urine WBC (0-5) /hpf Urine WBC Clumps (None) /hpf Urine Bacteria (None) /hpf 03/03/23 03/03/23 Range/Units 08:05 11:44 BUN 67 H (7-17) mg/dL Creatinine 6.76 H (0.52-1.04) mg/dL Glucose 161 H (74-99) mg/dL POC Glucose (mg/dL) 171 H (70-110) mg/dL Troponin I (0.000-0.034) ng/mL Triglycerides (0.00-149.00) mg/dL VLDL Cholesterol, Calc (5.00-40.00) mg/dL HDL Cholesterol (40.00-60.00) mg/dL Urine Appearance (Clear) Urine Protein (Negative) Urine Blood (Negative) Ur Leukocyte Esterase (Negative) Urine RBC (0-5) /hpf Urine WBC (0-5) /hpf Urine WBC Clumps (None) /hpf Urine Bacteria (None) /hpf
[2023-03-03 17:12] LABS: Glucose,Whole Blood 186 mg/dL (70-110)
[2023-03-03 20:05] LABS: Glucose,Whole Blood 255 mg/dL (70-110)
--- NOTE | 2023-03-03 20:45 | XR ---
EXAMINATION TYPE: XR chest 2V DATE OF EXAM: 03/03/2023 COMPARISON: 01/11/2023 HISTORY: 72-year-old female CHF, confusion, altered mental status TECHNIQUE: Frontal and lateral views FINDINGS: Heart borderline in size. Peribronchial cuffing noted on lateral view. Tortuous/ectatic thoracic aort a. Otherwise, no consolidation or pleural effusion seen. IMPRESSION: Borderline heart size. No ari CHF. There is some bronchial wall thickening noted on the lateral vie w that could represent bronchitis or asthma.
[2023-03-04 07:19] LABS: Glucose,Whole Blood 195 mg/dL (70-110)
[2023-03-04] MEDS: TACROLIMUS 1 MG CAP PO SCH ×2 (09:41→20:31)
[2023-03-04] MEDS: FAMOTIDINE 20 MG TAB PO SCH (09:41)
[2023-03-04] MEDS: ASPIRIN 81 MG PO SCH (09:42)
[2023-03-04] MEDS: predniSONE 5 MG TAB PO SCH (09:42)
[2023-03-04] MEDS: MYCOPHENOLATE SODIUM DR 180 MG TABLET.DR PO SCH ×2 (09:42→20:31)
[2023-03-04] MEDS: ENOXAPARIN 30 MG/0.3 ML SYRINGE SQ SCH (09:42)
[2023-03-04] MEDS: SODIUM BICARBONATE TAB 650 MG TAB PO SCH ×2 (09:42→20:32)
[2023-03-04] MEDS: amLODIPine 10 MG TAB PO SCH (09:43)
[2023-03-04] MEDS: carvediloL 12.5 MG TAB PO SCH ×2 (09:43→17:52)
[2023-03-04] MEDS: cloNIDine HCL 0.2 MG TAB PO SCH ×3 (09:44→22:21)
[2023-03-04] MEDS: FOLIC ACID 1 MG TAB PO SCH (09:46)
[2023-03-04 10:07] LABS: African American GFR (CKD) 7 (>60 ml/min/1.73 sqM); Anion Gap 10 mmol/L; Blood Urea Nitrogen 69 mg/dL (7-17); Calcium 8.2 mg/dL (8.4-10.2); Carbon Dioxide 26 mmol/L (22-30); Chloride 96 mmol/L (98-107); Glucose 203 mg/dL (74-99); Non-African American GFR(CKD) 6 (>60 ml/min/1.73 sqM); Potassium 4.6 mmol/L (3.5-5.1); Sodium 132 mmol/L (137-145)
[2023-03-04] MEDS ORDERED: SODIUM CHLORIDE 0.9% 1,000 ML IV ONE (10:24)
--- NOTE | 2023-03-04 11:13 | P.PN ---
Subjective Patient is seen for follow-up for acute kidney injury on top of chronic kidney disease. She was admitted with mental status changes. Patient was also noted to be hypotensive and with underlying urine infection. Urine was noted to be milky in the Walsh catheter yesterday. The Walsh catheter which was placed in the ER was discontinued yesterday. Patient was maintained on IV fluids however this morning it appears that the fluids were discontinued. Patient has not had any significant urine output. No evidence of urine retention. Maintained on empiric antibiotics Mentation seems to be slightly better today. I discussed renal replacement therapy with the patient as serum creatinine remains elevated at 6.69 with poor urine output. At this time patient is reluctant and is asking to wait for 1 more day if possible. No complaints of nausea vomiting or abdominal pain. Patient has left arm AV graft however I do not feel a thrill on the AVG Objective - Vital Signs Vital signs: Vital Signs Temp 99.4 F 03/04/23 07:40 Pulse 81 03/04/23 09:33 Resp 13 03/04/23 07:40 BP 96/62 03/04/23 09:33 Pulse Ox 97 03/04/23 07:40 FiO2 Intake & Output 03/03/23 03/04/23 03/04/23 18:59 06:59 18:59 Intake Total 50 Output Total 200 Balance -150 Intake: Intake, IV Titration 50 Amount cefTRIAXone 1 gm In 50 Sodium Chloride 0.9% 50 ml @ 100 mls/hr IVPB Q24HR [facility] Rx#:[id number] Output: Urine 200 Other: Voiding Method Indwelling Catheter Diaper Indwelling Catheter # Voids 2 - Exam Patient is awake, comfortable, no acute distress She does recognize me. Examination of the heart S1 and S2 Examination of the lungs bilateral breath sounds are heard Abdomen is soft nontender Examination of the lower extremities shows edema 1+ bilaterally [employer] exam grossly intact, patient is moving all 4 extremities. - Labs CBC & Chem 7: 03/02/23 11:30 03/04/23 06:28 Labs: Abnormal Lab Results - Last 24 Hours (Table) 03/02/23 03/03/23 03/03/23 Range/Units 11:30 11:39 11:39 Sodium (137-145) mmol/L Chloride (98-107) mmol/L BUN (7-17) mg/dL Creatinine (0.52-1.04) mg/dL Glucose (74-99) mg/dL POC Glucose (mg/dL) (70-110) mg/dL Calcium (8.4-10.2) mg/dL Triglycerides 212.00 H (0.00-149.00) mg/dL VLDL Cholesterol, Calc 42.40 H (5.00-40.00) mg/dL HDL Cholesterol 28.30 L (40.00-60.00) mg/dL Vitamin B12 >3600.0 H (200.0-944.0) pg/mL Folate 3.40 L (4.40-31.00) ng/mL 03/03/23 03/03/23 03/03/23 Range/Units 11:44 17:01 20:02 Sodium (137-145) mmol/L Chloride (98-107) mmol/L BUN (7-17) mg/dL Creatinine (0.52-1.04) mg/dL Glucose (74-99) mg/dL POC Glucose (mg/dL) 171 H 186 H 255 H (70-110) mg/dL Calcium (8.4-10.2) mg/dL Triglycerides (0.00-149.00) mg/dL VLDL Cholesterol, Calc (5.00-40.00) mg/dL HDL Cholesterol (40.00-60.00) mg/dL Vitamin B12 (200.0-944.0) pg/mL Folate (4.40-31.00) ng/mL 03/04/23 03/04/23 Range/Units 06:28 07:14 Sodium 132 L (137-145) mmol/L Chloride 96 L (98-107) mmol/L BUN 69 H (7-17) mg/dL Creatinine 6.69 H (0.52-1.04) mg/dL Glucose 203 H (74-99) mg/dL POC Glucose (mg/dL) 195 H (70-110) mg/dL Calcium 8.2 L (8.4-10.2) mg/dL Triglycerides (0.00-149.00) mg/dL VLDL Cholesterol, Calc (5.00-40.00) mg/dL HDL Cholesterol (40.00-60.00) mg/dL Vitamin B12 (200.0-944.0) pg/mL Folate (4.40-31.00) ng/mL Microbiology - Last 24 Hours (Table) 03/02/23 15:26 Blood Culture - Preliminary Blood 03/02/23 15:02 Urine Culture - Preliminary Urine,Voided Presumptive Staph aureus Assessment and Plan Assessment: 1. Acute kidney injury on top of chronic kidney disease, most likely ATN currently oliguric. Etiology underlying infection/sepsis as well as volume depletion. Discussed renal replacement therapy with the patient and at this time she would like to wait another 24 hours. Patient has left arm AV graft however this does not appear to be functional. 2. Chronic kidney disease NKF stage IV with baseline creatinine around 3-3.5 mg/dL secondary to chronic allograft nephropathy, diabetic kidney disease. 3. Status post donor renal transplant 2015 4. Chronic systolic CHF with ejection fraction 40-45% with [id number] mitral regurgitation and moderate tricuspid regurgitation. 5. Hypertension with CK D 6. UTI. Can DC Walsh catheter. Urine culture is pending 7. Mental status changes likely related to underlying infection and possible element of uremia. Plan: Challenge with IV fluids Continue off of nephrotoxic medications Continue off of angiotensin receptor blockers Repeat labs in a.m. Proceed with renal replacement therapy in a.m. if there is no further improvement in renal function. Follow-up on tacrolimus level. Follow-up on urine cultures. Continue with empiric antibiotics
[2023-03-04 11:41] LABS: Glucose,Whole Blood 181 mg/dL (70-110)
[2023-03-04] MEDS: SODIUM CHLORIDE 0.9% 1,000 ML IV SCH (12:21)
--- NOTE | 2023-03-04 13:31 | P.PN ---
Subjective Progress Note Date: 03/04/23 72-year-old female with a past medical history of ESRD with previous renal transplant in 2016 on antirejection medication currently with stage IV chronic kidney disease, hypertension, hyperlipidemia, insulin-dependent diabetes mellitus, left eye retinal detachment, and right eye retinal bleeds presents the ED for altered mentation. Patient does not provide much history and appears lethargic so majority of information is obtained from documentation. Per ED documentation, patient has been more drowsy according to the son likely due to taking tramadol over the past 3-4 days for a foot injury. Her son is also noticed that her urine has been foul-smelling and patient has been more weak and unable to get out of bed. The symptoms were concerning to the son which prompted him to bring the patient to the ED. In the ED, vital signs were stable. CBC showed hemoglobin of 10.6. CMP showed sodium of 133, BUN of 68, creatinine 6.58, glucose 180, albumin 3. Troponin was 0.101. Urinalysis showed large leukocyte esterase. Brain CT showed remote ischemic change with no evidence of acute hemorrhage or mass effect in the left basal ganglia. Patient is admitted for further management and workup. 03/03 Patient was seen and examined. Pleasantly confused. Much more alert today. Not lethargic. She has no complaints. Troponin 0.101, 0.115, 0.103. CUS shows minimal plaque in BL carotids. Discussed with Dr. 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 Nephrology recommends tacrolimus level, CXR, DC Lokelma, decreased NaHCO3, possible renal replacement if renal function does not improve. BMP shows BUN 67, Cr 6.76. Lipid panel shows T. Chol 145, TG 212, LDL 74.3. 03/04 Patient was seen and examined. Mentation improved. She has no complaints. Refusing MRI brain. Currently undergoing EEG. BMP shows Na 132, Cl 96, BUN 69, Cr 6.69, glucose 203, Ca 8.2. UCx presumptive staph aureus. BCx negative so far. Vit B12 > 3600. Folate 3.4. Nephrology recommends possible renal replacement if renal function does not improve. Produced 150 cc of urine over the past 24H. CXR shows bronchial wall thickening. General: No distress. Pleasantly confused Derm: warm, dry Head: atraumatic, normocephalic, symmetric Eyes: EOMI, no lid lag, anicteric sclera Mouth: no lip lesion, mucus membranes dry Cardiovascular: S1S2 reg, no murmur Lungs: CTA bilateral, no rhonchi, no rales , no accessory muscle use Abdominal: soft, nontender to palpation, no guarding, no appreciable organomegaly Ext: no gross muscle atrophy, no edema, no contractures Neuro: no apparent focal neuro deficits Psych: Alert, oriented x 1 Acute metabolic encephalopathy Subacute CVA Urinary tract infection Troponin elevation Acute kidney injury on chronic kidney disease Chronic conditions: ESRD with previous renal transplant in 2016 on antirejection medication currently with stage IV chronic kidney disease, hypertension, hyperlipidemia, insulin-dependent diabetes mellitus, left eye retinal detachment, and right eye retinal bleeds Based on my assessment of this patient, this patient meets a high complexity level of care. Patient has a confusion and forgetfulness with severe exacerbation or progression of disease which poses a threat to life or bodily function. Found to have subacute CVA on CT head. Acute metabolic encephalopathy: Multifactorial. Neurology recommends EEG. Replace Folate by mouth. Subacute CVA: Stroke work up. Echo. MRI brain. Carotid US as above. ASA 81 mg PO QD. Lipitor 10 mg PO QHS. Neurochecks. Telemetry monitoring. Neurology on board. Urinary tract infection: Rocephin 1g IV QD. Follow UCx. Troponin elevation: Flat. ACS ruled out. Echo as above. Acute kidney injury on chronic kidney disease: Nephrology consulted. Lovenox SQ for DVT prophylaxis. FULL CODE. I have reviewed the following admissions consultant notes: Nephrology note. I have reviewed the results of the following tests: BMP. UCx. BCx. I have ordered the following tests: MRI brain. Echo. Agree with tacrolimus level, EEG. I have discussed the care of this patient with the following independent historian: I have independently interpreted the following test below: CXR as above. I have discussed the management of this patient with the following physician: Objective - Vital Signs Vital signs: Vital Signs Temp 97.6 F 03/04/23 11:15 Pulse 73 03/04/23 11:15 Resp 14 03/04/23 11:15 BP 109/68 03/04/23 11:15 Pulse Ox 97 03/04/23 11:15 FiO2 Intake & Output 03/03/23 03/04/23 03/04/23 18:59 06:59 18:59 Intake Total 50 Output Total 200 Balance -150 Intake: Intake, IV Titration 50 Amount cefTRIAXone 1 gm In 50 Sodium Chloride 0.9% 50 ml @ 100 mls/hr IVPB Q24HR [facility] Rx#:[id number] Output: Urine 200 Other: Voiding Method Indwelling Catheter Diaper Indwelling Catheter # Voids 2 - Labs CBC & Chem 7: 03/02/23 11:30 03/04/23 06:28 Labs: Abnormal Lab Results - Last 24 Hours (Table) 03/03/23 03/03/23 03/03/23 Range/Units 11:39 11:39 17:01 Sodium (137-145) mmol/L Chloride (98-107) mmol/L BUN (7-17) mg/dL Creatinine (0.52-1.04) mg/dL Glucose (74-99) mg/dL POC Glucose (mg/dL) 186 H (70-110) mg/dL Calcium (8.4-10.2) mg/dL Vitamin B12 >3600.0 H (200.0-944.0) pg/mL Folate 3.40 L (4.40-31.00) ng/mL 03/03/23 03/04/23 03/04/23 Range/Units 20:02 06:28 07:14 Sodium 132 L (137-145) mmol/L Chloride 96 L (98-107) mmol/L BUN 69 H (7-17) mg/dL Creatinine 6.69 H (0.52-1.04) mg/dL Glucose 203 H (74-99) mg/dL POC Glucose (mg/dL) 255 H 195 H (70-110) mg/dL Calcium 8.2 L (8.4-10.2) mg/dL Vitamin B12 (200.0-944.0) pg/mL Folate (4.40-31.00) ng/mL 03/04/23 Range/Units 11:20 Sodium (137-145) mmol/L Chloride (98-107) mmol/L BUN (7-17) mg/dL Creatinine (0.52-1.04) mg/dL Glucose (74-99) mg/dL POC Glucose (mg/dL) 181 H (70-110) mg/dL Calcium (8.4-10.2) mg/dL Vitamin B12 (200.0-944.0) pg/mL Folate (4.40-31.00) ng/mL Microbiology - Last 24 Hours (Table) 03/02/23 15:26 Blood Culture - Preliminary Blood 03/02/23 15:02 Urine Culture - Preliminary Urine,Voided Presumptive Staph aureus
--- NOTE | 2023-03-04 14:25 | P.PN ---
Subjective Progress Note Date: 03/04/23 I am following-up with patient and she was notified more awake and responsive. She states she is doing well. She was in process of getting hooked up for EEG in the sorter upholstery parts upon seeing her. Objective - Vital Signs Vital signs: Vital Signs Temp 97.6 F 03/04/23 11:15 Pulse 73 03/04/23 11:15 Resp 14 03/04/23 11:15 BP 109/68 03/04/23 11:15 Pulse Ox 97 03/04/23 11:15 FiO2 Intake & Output 03/03/23 03/04/23 03/04/23 18:59 06:59 18:59 Intake Total 50 Output Total 200 Balance -150 Intake: Intake, IV Titration 50 Amount cefTRIAXone 1 gm In 50 Sodium Chloride 0.9% 50 ml @ 100 mls/hr IVPB Q24HR [facility] Rx#:[id number] Output: Urine 200 Other: Voiding Method Indwelling Catheter Diaper Indwelling Catheter # Voids 2 - Exam General: Lying in bed and is not in acute distress. Neuro: Limited. This is drowsy but is applicable to voice at. She is oriented to self and she stated she is in the hospital. She is able to name watch and upon showing her the glasses she stated that her frames and upon asking her what what do you do with a frames she said to see things. She is able to follow simple commands. Language is limited but does not appear a phasic Visual carmona is unable to assess because of poor cooperation. She's tracking throughout. No facial weakness. No dysarthria. Motor the strength is limited because of her cooperation but she's lifting all extremities above gravity and does not appear there is a appreciable focality. Some of the workup during his hospital visit consisted of: Hemoglobin 7.6, red blood cells 3.77. Sodium is 133, BUN 16, creatinine 6.58, glucose is 180, troponin is a 0.10 on initial presentation Calcium AST ALT are within normal limits Vitamin B12 is more than 3600. Folate is 3.40 Urinalysis seems suggestive of underlying urinary tract infection CT of the head is reported as degenerative and remote ischemic change with no evidence for acute hemorrhage or mass effect. I reviewed the CT of the head and felt patient has lacunar infarct over the left thalamus that appears old. Carotid duplex was reported as less than 50% stenosis of bilateral carotid bifurcation. - Labs CBC & Chem 7: 03/02/23 11:30 03/04/23 06:28 Labs: Abnormal Lab Results - Last 24 Hours (Table) 03/03/23 03/03/23 03/03/23 Range/Units 11:39 11:39 17:01 Sodium (137-145) mmol/L Chloride (98-107) mmol/L BUN (7-17) mg/dL Creatinine (0.52-1.04) mg/dL Glucose (74-99) mg/dL POC Glucose (mg/dL) 186 H (70-110) mg/dL Calcium (8.4-10.2) mg/dL Vitamin B12 >3600.0 H (200.0-944.0) pg/mL Folate 3.40 L (4.40-31.00) ng/mL 03/03/23 03/04/23 03/04/23 Range/Units 20:02 06:28 07:14 Sodium 132 L (137-145) mmol/L Chloride 96 L (98-107) mmol/L BUN 69 H (7-17) mg/dL Creatinine 6.69 H (0.52-1.04) mg/dL Glucose 203 H (74-99) mg/dL POC Glucose (mg/dL) 255 H 195 H (70-110) mg/dL Calcium 8.2 L (8.4-10.2) mg/dL Vitamin B12 (200.0-944.0) pg/mL Folate (4.40-31.00) ng/mL 03/04/23 Range/Units 11:20 Sodium (137-145) mmol/L Chloride (98-107) mmol/L BUN (7-17) mg/dL Creatinine (0.52-1.04) mg/dL Glucose (74-99) mg/dL POC Glucose (mg/dL) 181 H (70-110) mg/dL Calcium (8.4-10.2) mg/dL Vitamin B12 (200.0-944.0) pg/mL Folate (4.40-31.00) ng/mL Microbiology - Last 24 Hours (Table) 03/02/23 15:26 Blood Culture - Preliminary Blood 03/02/23 15:02 Urine Culture - Preliminary Urine,Voided Presumptive Staph aureus Assessment and Plan Assessment: This is a 72-year-old woman with multiple medical problems who presents to the emergency department for altered mental status. She's been taking tramadol over the last 3-4 days for a foot injury and the urine has been foul-smelling and been more week and unable to get out of bed. Her urinalysis seems suggestive of possible underlying urinary tract infection Mental status seems due to underlying UTI as well as out worsening of acute on chronic kidney insufficiency was component of metabolic encephalopathy. Likely acute urinary tract infection Acute on chronic kidney insufficiency Folate deficiency (3.40) On CT I felt the patient had the old lacunar left thalamus stroke and left external capusule/basal gaglia old stroke that was seen on prior CT head. History of End-stage renal disease and that she had a previous renal transplant and currently stage IV chronic kidney disease Hypertension Hyperlipidemia Insulin-dependent diabetes Plan: MRI the brain is ordered by the primary team is pending Pending routine EEG Patient had a recent TSH on January 2023 which was normal Ordered ammonia level. Because of her full deficiency, patient was started on folic acid 1 mg daily. She is on aspirin 81 mg and Lipitor tomograms daily at bedtime. We'll defer the rest of the medical management to primary team The plan is discussed with the patient's nurse. Time with Patient: Less than 30
[2023-03-04 17:12] LABS: Glucose,Whole Blood 218 mg/dL (70-110)
--- NOTE | 2023-03-04 20:10 | MR ---
EXAMINATION TYPE: MR brain wo con DATE OF EXAM: 03/04/2023 6:59 PM CLINICAL INDICATION:Female, 72 years old with history of Neuro deficit, acute, stroke suspected; PHH, Neuro deficit, acute, stroke suspected. COMPARISON: 03/02/2023. TECHNIQUE: Multi planar, multi sequence imaging was performed through the brain including: T1, T2, In version recovery, Diffusion weighted imaging, and gradient echo imaging. No gadolinium was given. FINDINGS: Generalized cerebral atrophy changes with proportional dilation of the ventricles. Scattered foci of high T2 signal intensity are seen within the periventricular white matter. Midline structures show no abnormality. Diffusion-weighted imaging shows no evidence of restricted diffusion. The susceptibilit y weighted images do not reveal any evidence for micro-hemorrhage. The bone marrow signal is within normal limits. Paranasal sinuses and mastoid air cells: No significant paranasal sinus disease. Visualized orbits: Bilaterally aphakia. IMPRESSION: 1. No evidence of intracranial mass or acute/subacute infarct. 2. Nonspecific white matter changes, likely secondary to small vessel ischemic disease.
[2023-03-04] MEDS: ATORVASTATIN 10 MG TAB PO SCH (20:31)
[2023-03-04 20:34] LABS: Glucose,Whole Blood 285 mg/dL (70-110)
--- NOTE | 2023-03-05 01:52 | EEG ---
ELECTROENCEPHALOGRAM REPORT CLINICAL HISTORY: This is a 72-year-old woman with altered mental status. The video EEG is obtained to evaluate for seizure epileptiform activity. RELEVANT MEDICATION: The patient is not on any antiepileptic drugs. EEG TYPE: This is a routine 21-channel EEG with video using the 10/20 electrode placement system. DESCRIPTION: Wakefulness is only obtained. During awake state, the background consists of low-to- moderate voltage of 5 to 6 Hz activity and at times intermixed with delta activity. There is no physiological stage 2 sleep architecture. There is no focal slowing. Interictal and ictal is none. ACTIVATION PROCEDURE: Photic stimulation did not evoke a posterior driving response. There is no abnormality during the photic stimulation. Hyperventilation is not performed. CLINICAL INTERPRETATION: This is an abnormal routine EEG. The background slowing is suggestive of moderate encephalopathy, likely due to toxic-metabolic derangement. Otherwise, there is no focal slowing, epileptiform discharge, or seizure on the EEG. Clinical correlation is recommended. SEEMA / KAREN: [id number] / MEGHANA
[2023-03-05] MEDS: SODIUM CHLORIDE 0.9% 1,000 ML IV SCH ×2 (02:14→18:16)
[2023-03-05 07:39] LABS: Glucose,Whole Blood 267 mg/dL (70-110)
[2023-03-05] MEDS ORDERED: VANCOMYCIN IV PER PHARMACY 1 EACH MISC MISCELLANE PRN (08:25)
[2023-03-05] MEDS ORDERED: SULFAMETHOX-TMP 800-160MG 1 EACH TAB PO SCH (09:00)
[2023-03-05] MEDS ORDERED: VANCOMYCIN 1,000 MG in SODIUM CHLORIDE 0.9% 250 ML IVPB ONE (09:00)
[2023-03-05 10:01] LABS: African American GFR (CKD) 7 (>60 ml/min/1.73 sqM); Anion Gap 11 mmol/L; Blood Urea Nitrogen 67 mg/dL (7-17); Calcium 8.1 mg/dL (8.4-10.2); Carbon Dioxide 21 mmol/L (22-30); Chloride 98 mmol/L (98-107); Glucose 255 mg/dL (74-99); Non-African American GFR(CKD) 6 (>60 ml/min/1.73 sqM); Potassium 4.5 mmol/L (3.5-5.1); Sodium 130 mmol/L (137-145)
[2023-03-05] MEDS: ENOXAPARIN 30 MG/0.3 ML SYRINGE SQ SCH (11:04)
[2023-03-05] MEDS: carvediloL 12.5 MG TAB PO SCH ×2 (11:04→18:16)
[2023-03-05] MEDS: ASPIRIN 81 MG PO SCH (11:05)
[2023-03-05] MEDS: FAMOTIDINE 20 MG TAB PO SCH (11:05)
[2023-03-05] MEDS: MYCOPHENOLATE SODIUM DR 180 MG TABLET.DR PO SCH ×2 (11:05→20:28)
[2023-03-05] MEDS: amLODIPine 10 MG TAB PO SCH (11:05)
[2023-03-05] MEDS: SODIUM BICARBONATE TAB 650 MG TAB PO SCH ×2 (11:05→20:28)
[2023-03-05] MEDS: FOLIC ACID 1 MG TAB PO SCH (11:05)
[2023-03-05] MEDS: cloNIDine HCL 0.2 MG TAB PO SCH ×3 (11:05→22:01)
[2023-03-05] MEDS: TACROLIMUS 1 MG CAP PO SCH ×2 (11:06→20:28)
[2023-03-05] MEDS: predniSONE 5 MG TAB PO SCH (11:06)
[2023-03-05 13:04] LABS: Glucose,Whole Blood 261 mg/dL (70-110)
--- NOTE | 2023-03-05 14:25 | P.PN ---
Subjective Progress Note Date: 03/05/23 72-year-old female with a past medical history of ESRD with previous renal transplant in 2016 on antirejection medication currently with stage IV chronic kidney disease, hypertension, hyperlipidemia, insulin-dependent diabetes mellitus, left eye retinal detachment, and right eye retinal bleeds presents the ED for altered mentation. Patient does not provide much history and appears lethargic so majority of information is obtained from documentation. Per ED documentation, patient has been more drowsy according to the son likely due to taking tramadol over the past 3-4 days for a foot injury. Her son is also noticed that her urine has been foul-smelling and patient has been more weak and unable to get out of bed. The symptoms were concerning to the son which prompted him to bring the patient to the ED. In the ED, vital signs were stable. CBC showed hemoglobin of 10.6. CMP showed sodium of 133, BUN of 68, creatinine 6.58, glucose 180, albumin 3. Troponin was 0.101. Urinalysis showed large leukocyte esterase. Brain CT showed remote ischemic change with no evidence of acute hemorrhage or mass effect in the left basal ganglia. Patient is admitted for further management and workup. 03/03 Patient was seen and examined. Pleasantly confused. Much more alert today. Not lethargic. She has no complaints. Troponin 0.101, 0.115, 0.103. CUS shows minimal plaque in BL carotids. Discussed with Dr. 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 Nephrology recommends tacrolimus level, CXR, DC Lokelma, decreased NaHCO3, possible renal replacement if renal function does not improve. BMP shows BUN 67, Cr 6.76. Lipid panel shows T. Chol 145, TG 212, LDL 74.3. 03/04 Patient was seen and examined. Mentation improved. She has no complaints. Refusing MRI brain. Currently undergoing EEG. BMP shows Na 132, Cl 96, BUN 69, Cr 6.69, glucose 203, Ca 8.2. UCx presumptive staph aureus. BCx negative so far. Vit B12 > 3600. Folate 3.4. Nephrology recommends possible renal replacement if renal function does not improve. Produced 150 cc of urine over the past 24H. CXR shows bronchial wall thickening. 03/05 Patient was seen and examined. Patient reports feeling well. Urine culture growing MRSA. Rocephin switched to vancomycin. MRI brain negative for CVA. BMP shows sodium 1:30, bicarb 21, BUN 67, creatinine 6.3, glucose 255 and calcium 8.1. EEG negative for seizures but showing encephalopathy. General: No distress. Pleasantly confused Derm: warm, dry Head: atraumatic, normocephalic, symmetric Eyes: EOMI, no lid lag, anicteric sclera Mouth: no lip lesion, mucus membranes dry Cardiovascular: S1S2 reg, no murmur Lungs: CTA bilateral, no rhonchi, no rales , no accessory muscle use Abdominal: soft, nontender to palpation, no guarding, no appreciable organomega ly Ext: no gross muscle atrophy, no edema, no contractures Neuro: no apparent focal neuro deficits Psych: Alert, oriented x 1 Acute metabolic encephalopathy Urinary tract infection Troponin elevation Acute kidney injury on chronic kidney disease Chronic conditions: ESRD with previous renal transplant in 2016 on antirejection medication currently with stage IV chronic kidney disease, hypertension, hyperlipidemia, insulin-dependent diabetes mellitus, left eye retinal detachment, and right eye retinal bleeds Based on my assessment of this patient, this patient meets a moderate complexity level of care. Patient has a confusion and forgetfulness with severe exacerbation or progression of disease which poses a threat to life or bodily function. MRSA UTI likely cause. Acute metabolic encephalopathy: Multifactorial. MRI brain negative for seizure. Likely secondary to UTI. Replace Folate by mouth. Urinary tract infection: Urine culture positive for MRSA. Patient started on vancomycin dosing per pharmacy. Troponin elevation: Flat. ACS ruled out. Echo as above. Acute kidney injury on chronic kidney disease: Nephrology consulted. Recommends hemodialysis if renal function does not improve. Lovenox SQ for DVT prophylaxis. FULL CODE. I have reviewed the following [employer] consultant notes: I have reviewed the results of the following tests: BMP. UCx. BCx. I have ordered the following tests: Echo. I have discussed the care of this patient with the following independent historian: Discussed with pharmacy. I have independently interpreted the following test below: I have discussed the management of this patient with the following physician: Objective - Vital Signs Vital signs: Vital Signs Temp 98.0 F 03/05/23 08:40 Pulse 73 03/05/23 08:40 Resp 16 03/05/23 08:40 BP 119/72 03/05/23 08:40 Pulse Ox 100 03/05/23 08:40 FiO2 Intake & Output 03/04/23 03/05/23 03/05/23 18:59 06:59 18:59 Intake Total 500 Balance 500 Intake: Intake, IV Titration 500 Amount Sodium Chloride 0.9% 1, 450 000 ml @ 75 mls/hr IV . [id number] [facility] Rx#:[id number] cefTRIAXone 1 gm In 50 Sodium Chloride 0.9% 50 ml @ 100 mls/hr IVPB Q24HR [facility] Rx#:[id number] Other: Voiding Method Indwelling Catheter Bedside Commode Bedside Commode # Voids 1 # Bowel Movements 1 1 1 - Labs CBC & Chem 7: 03/02/23 11:30 03/05/23 09:08 Labs: Abnormal Lab Results - Last 24 Hours (Table) 03/04/23 03/04/23 03/05/23 Range/Units 17:07 20:32 07:37 Sodium (137-145) mmol/L Carbon Dioxide (22-30) mmol/L BUN (7-17) mg/dL Creatinine (0.52-1.04) mg/dL Glucose (74-99) mg/dL POC Glucose (mg/dL) 218 H 285 H 267 H (70-110) mg/dL Calcium (8.4-10.2) mg/dL 03/05/23 03/05/23 Range/Units 09:08 13:01 Sodium 130 L (137-145) mmol/L Carbon Dioxide 21 L (22-30) mmol/L BUN 67 H (7-17) mg/dL Creatinine 6.30 H (0.52-1.04) mg/dL Glucose 255 H (74-99) mg/dL POC Glucose (mg/dL) 261 H (70-110) mg/dL Calcium 8.1 L (8.4-10.2) mg/dL Microbiology - Last 24 Hours (Table) 03/02/23 15:02 Urine Culture - Final Urine,Voided Methicillin resist S. aureus 03/02/23 15:26 Blood Culture - Preliminary Blood
[2023-03-05 15:16] VITALS: BMI 23.5
--- NOTE | 2023-03-05 15:16 | P.PN ---
Subjective Progress Note Date: 03/05/23 I am following-up with patient and was notified by nursing staff she is doing better. Patient does acknowledge she is doing better and denies of any new focal deficits. Objective - Vital Signs Vital signs: Vital Signs Temp 97.5 F L 03/05/23 14:36 Pulse 68 03/05/23 14:36 Resp 18 03/05/23 14:36 BP 104/60 03/05/23 14:36 Pulse Ox 100 03/05/23 14:36 FiO2 Intake & Output 03/04/23 03/05/23 03/05/23 18:59 06:59 18:59 Intake Total 500 Balance 500 Intake: Intake, IV Titration 500 Amount Sodium Chloride 0.9% 1, 450 000 ml @ 75 mls/hr IV . [id number] [facility] Rx#:[id number] cefTRIAXone 1 gm In 50 Sodium Chloride 0.9% 50 ml @ 100 mls/hr IVPB Q24HR [facility] Rx#:[id number] Other: Voiding Method Indwelling Catheter Bedside Commode Bedside Commode # Voids 1 # Bowel Movements 1 1 1 - Exam General: Lying in bed and is not in acute distress. Neuro: She is awake, alert, oriented to self, place and time. Is following simple commands. No aphasia or neglect. Pupils are round, equal and reactive to light. Visual carmona are full to confrontation. EOM intact and no nystagmus. No facial weakness. No dysarthria. Motor: Strength uppers are 5/5 but limited in lowers since have some pain in lowers thighs but was able to lift bilateral above gravity. Some of the workup during his hospital visit consisted of: Hemoglobin 7.6, red blood cells 3.77. Sodium is 133, BUN 16, creatinine 6.58, glucose is 180, troponin is a 0.10 on initial presentation Calcium AST ALT are within normal limits Vitamin B12 is more than 3600. Folate is 3.40 Urinalysis seems suggestive of underlying urinary tract infection CT of the head is reported as degenerative and remote ischemic change with no evidence for acute hemorrhage or mass effect. I reviewed the CT of the head and felt patient has lacunar infarct over the left thalamus that appears old. Carotid duplex was reported as less than 50% stenosis of bilateral carotid bifurcation. Routine EEG is abnormal. The backrest slowing suggestive of moderate encephalopathy, likely due to toxic metabolic derangement. Otherwise there is no focal slowing, epileptiform discharges or seizure on the EEG. MRI the brain is reported as no evidence of intracranial mass or acute/subacute infarct. Nonspecific white matter changes, likely secondary due to small vessel ischemic disease. I personally reviewed the MRI and agree there is no acute or subacute ischemia. - Labs CBC & Chem 7: 03/02/23 11:30 03/05/23 09:08 Labs: Abnormal Lab Results - Last 24 Hours (Table) 03/04/23 03/04/23 03/05/23 Range/Units 17:07 20:32 07:37 Sodium (137-145) mmol/L Carbon Dioxide (22-30) mmol/L BUN (7-17) mg/dL Creatinine (0.52-1.04) mg/dL Glucose (74-99) mg/dL POC Glucose (mg/dL) 218 H 285 H 267 H (70-110) mg/dL Calcium (8.4-10.2) mg/dL 03/05/23 03/05/23 Range/Units 09:08 13:01 Sodium 130 L (137-145) mmol/L Carbon Dioxide 21 L (22-30) mmol/L BUN 67 H (7-17) mg/dL Creatinine 6.30 H (0.52-1.04) mg/dL Glucose 255 H (74-99) mg/dL POC Glucose (mg/dL) 261 H (70-110) mg/dL Calcium 8.1 L (8.4-10.2) mg/dL Microbiology - Last 24 Hours (Table) 03/02/23 15:02 Urine Culture - Final Urine,Voided Methicillin resist S. aureus 03/02/23 15:26 Blood Culture - Preliminary Blood Assessment and Plan Assessment: This is a 72-year-old woman with multiple medical problems who presents to the emergency department for altered mental status. She's been taking tramadol over the last 3-4 days for a foot injury and the urine has been foul-smelling and been more week and unable to get out of bed. Her urinalysis seems suggestive of possible underlying urinary tract infection Mental status seems due to underlying UTI as well as out worsening of acute on chronic kidney insufficiency was component of metabolic encep halopathy--mentation improved. MRI of the brain is negative for acute or subacute ischemia Likely acute urinary tract infection Acute on chronic kidney insufficiency Folate deficiency (3.40) On CT I felt the patient had the old lacunar left thalamus stroke and left external capusule/basal gaglia old stroke that was seen on prior CT head. History of End-stage renal disease and that she had a previous renal transplant and currently stage IV chronic kidney disease Hypertension Hyperlipidemia Insulin-dependent diabetes Plan: Patient had a recent TSH on January 2023 which was normal Ammonia level is less than 9. Because of her full deficiency, patient was started on folic acid 1 mg daily. She is on aspirin 81 mg and Lipitor 10mg daily at bedtime. We'll defer the rest of the medical management to primary team The plan is discussed with the primary attending There is no further neurological workup. We'll sign off. Please consulted needed. Time with Patient: Less than 30
[2023-03-05] MEDS: ATORVASTATIN 10 MG TAB PO SCH (20:28)
[2023-03-06] MEDS: SODIUM CHLORIDE 0.9% 1,000 ML IV SCH ×2 (06:17→18:20)
[2023-03-06 07:58] LABS: Glucose,Whole Blood 386 mg/dL (70-110)
[2023-03-06 08:31] LABS: African American GFR (CKD) 7 (>60 ml/min/1.73 sqM); Anion Gap 10 mmol/L; Blood Urea Nitrogen 69 mg/dL (7-17); Calcium 7.9 mg/dL (8.4-10.2); Carbon Dioxide 23 mmol/L (22-30); Chloride 96 mmol/L (98-107); Glucose 407 mg/dL (74-99); Non-African American GFR(CKD) 6 (>60 ml/min/1.73 sqM); Potassium 4.7 mmol/L (3.5-5.1); Sodium 129 mmol/L (137-145)
[2023-03-06] MEDS: FAMOTIDINE 20 MG TAB PO SCH (08:32)
[2023-03-06] MEDS: amLODIPine 10 MG TAB PO SCH (08:32)
[2023-03-06] MEDS: ENOXAPARIN 30 MG/0.3 ML SYRINGE SQ SCH (08:32)
[2023-03-06] MEDS: SODIUM BICARBONATE TAB 650 MG TAB PO SCH ×2 (08:32→20:58)
[2023-03-06] MEDS: FOLIC ACID 1 MG TAB PO SCH (08:32)
[2023-03-06] MEDS: MYCOPHENOLATE SODIUM DR 180 MG TABLET.DR PO SCH ×2 (08:33→21:33)
[2023-03-06] MEDS: predniSONE 5 MG TAB PO SCH (08:33)
[2023-03-06] MEDS: ASPIRIN 81 MG PO SCH (08:33)
[2023-03-06] MEDS: carvediloL 12.5 MG TAB PO SCH ×2 (08:33→18:19)
[2023-03-06] MEDS: TACROLIMUS 1 MG CAP PO SCH ×2 (08:33→20:59)
[2023-03-06] MEDS: cloNIDine HCL 0.2 MG TAB PO SCH ×3 (08:33→20:59)
[2023-03-06] MEDS ORDERED: VANCOMYCIN 1,000 MG in SODIUM CHLORIDE 0.9% 250 ML IVPB ONE (09:00)
[2023-03-06] MEDS ORDERED: DEXTROSE 50% SYRINGE 50 ML IVP PRN ×2 (09:35)
[2023-03-06] MEDS: INSULIN ASPART (NovoLOG) 100 UNIT/ML VIAL SQ SCH ×4 (10:08→21:33)
[2023-03-06] MEDS ORDERED: INSULIN ASPART (NovoLOG) 100 UNIT/ML VIAL SQ ONE (10:23)
--- NOTE | 2023-03-06 10:24 | P.PN ---
Subjective Progress Note Date: 03/06/23 72-year-old female with a past medical history of ESRD with previous renal transplant in 2016 on antirejection medication currently with stage IV chronic kidney disease, hypertension, hyperlipidemia, insulin-dependent diabetes mellitus, left eye retinal detachment, and right eye retinal bleeds presents the ED for altered mentation. Patient does not provide much history and appears lethargic so majority of information is obtained from documentation. Per ED documentation, patient has been more drowsy according to the son likely due to taking tramadol over the past 3-4 days for a foot injury. Her son is also noticed that her urine has been foul-smelling and patient has been more weak and unable to get out of bed. The symptoms were concerning to the son which prompted him to bring the patient to the ED. In the ED, vital signs were stable. CBC showed hemoglobin of 10.6. CMP showed sodium of 133, BUN of 68, creatinine 6.58, glucose 180, albumin 3. Troponin was 0.101. Urinalysis showed large leukocyte esterase. Brain CT showed remote ischemic change with no evidence of acute hemorrhage or mass effect in the left basal ganglia. Patient is admitted for further management and workup. 03/03 Patient was seen and examined. Pleasantly confused. Much more alert today. Not lethargic. She has no complaints. Troponin 0.101, 0.115, 0.103. CUS shows minimal plaque in BL carotids. Discussed with Dr. 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 Nephrology recommends tacrolimus level, CXR, DC Lokelma, decreased NaHCO3, possible renal replacement if renal function does not improve. BMP shows BUN 67, Cr 6.76. Lipid panel shows T. Chol 145, TG 212, LDL 74.3. 03/04 Patient was seen and examined. Mentation improved. She has no complaints. Refusing MRI brain. Currently undergoing EEG. BMP shows Na 132, Cl 96, BUN 69, Cr 6.69, glucose 203, Ca 8.2. UCx presumptive staph aureus. BCx negative so far. Vit B12 > 3600. Folate 3.4. Nephrology recommends possible renal replacement if renal function does not improve. Produced 150 cc of urine over the past 24H. CXR shows bronchial wall thickening. 03/05 Patient was seen and examined. Patient reports feeling well. Urine culture growing MRSA. Rocephin switched to vancomycin. MRI brain negative for CVA. BMP shows sodium 1:30, bicarb 21, BUN 67, creatinine 6.3, glucose 255 and calcium 8.1. EEG negative for seizures but showing encephalopathy. 03/06 Patient was seen and examined. BMP shows Ba 129, Cl 96, BUN 69, Cr 6.27, glucose 407, Ca 7.9. General: No distress. Pleasantly confused Derm: warm, dry Head: atraumatic, normocephalic, symmetric Eyes: EOMI, no lid lag, anicteric sclera Mouth: no lip lesion, mucus membranes dry Cardiovascular: S1S2 reg, no murmur Lungs: CTA bilateral, no rhonchi, no rales , no accessory muscle use Abdominal: soft, nontender to palpation, no guarding, no appreciable organomegaly Ext: no gross muscle atrophy, no edema, no contractures Neuro: no apparent focal neuro deficits Psych: Alert, oriented x 1 Acute metabolic encephalopathy Hyperglycemia with pseudohypoNa Low folate Urinary tract infection Troponin elevation Acute kidney injury on chronic kidney disease Chronic conditions: ESRD with previous renal transplant in 2016 on antirejection medication currently with stage IV chronic kidney disease, hypertension, hyperlipidemia, insulin-dependent diabetes mellitus, left eye retinal detachment, and right eye retinal bleeds Based on my assessment of this patient, this patient meets a high complexity level of care. Patient has a confusion and forgetfulness with severe exacerbation or progression of disease which poses a threat to life or bodily function. MRSA UTI likely cause. Acute metabolic encephalopathy: Multifactorial. MRI brain negative for seizure. Likely secondary to UTI. Replace Folate by mouth. Hyperglycemia with pseudohypoNa: A1c 7 on 02/11. Novolog 10 units now. Start ISS. Hypoglycemic precautions. Accuchecks ACHS. Low folate: Folate 1 mg PO QD. Urinary tract infection: Urine culture positive for MRSA. Patient started on vancomycin dosing per pharmacy. Troponin elevation: Flat. ACS ruled out. Echo as above. Acute kidney injury on chronic kidney disease: NS at 75 cc/hr. Recommends hemodialysis if renal function does not improve. Awaiting Nephrology recommendations. Monitor vancomycin trough for toxicity given her JONES on CKD. Lovenox SQ for DVT prophylaxis. FULL CODE. I have reviewed the following systems development consultant notes: I have reviewed the results of the following tests: BMP. I have ordered the following tests: BMP. Vanc trough. I have discussed the care of this patient with the following independent his maeve: I have independently interpreted the following test below: I have discussed the management of this patient with the following physician: Objective - Vital Signs Vital signs: Vital Signs Temp 98.2 F 03/06/23 07:45 Pulse 86 03/06/23 07:45 Resp 18 03/06/23 07:45 BP 137/76 03/06/23 07:45 Pulse Ox 100 03/06/23 07:45 FiO2 Intake & Output 03/05/23 03/06/23 03/06/23 18:59 06:59 18:59 Intake Total 1240 1080 120 Output Total 85 Balance 1240 995 120 Weight 60.237 kg Intake: Intake, IV Titration 1000 900 Amount Sodium Chloride 0.9% 1, 750 900 000 ml @ 75 mls/hr IV . [id number] [facility] Rx#:[id number] Vancomycin 1,000 mg In 250 Sodium Chloride 0.9% 250 ml @ 125 mls/hr IVPB ONCE ONE Rx#:[id number] Oral 240 180 120 Output: Urine 85 Other: Voiding Method Bedside Commode Bedside Commode # Voids 1 1 # Bowel Movements 1 1 - Labs CBC & Chem 7: 03/02/23 11:30 03/06/23 06:43 Labs: Abnormal Lab Results - Last 24 Hours (Table) 03/05/23 03/06/23 03/06/23 Range/Units 13:01 06:43 07:57 Sodium 129 L (137-145) mmol/L Chloride 96 L (98-107) mmol/L BUN 69 H (7-17) mg/dL Creatinine 6.27 H (0.52-1.04) mg/dL Glucose 407 H (74-99) mg/dL POC Glucose (mg/dL) 261 H 386 H (70-110) mg/dL Calcium 7.9 L (8.4-10.2) mg/dL Microbiology - Last 24 Hours (Table) 03/02/23 15:26 Blood Culture - Preliminary Blood
[2023-03-06 12:30] LABS: Glucose,Whole Blood 273 mg/dL (70-110)
--- NOTE | 2023-03-06 15:12 | P.PN ---
Subjective Progress Note Date: 03/06/23 Follow-up for acute kidney injury. Denies any nausea vomiting diarrhea. No chest pain or shortness of breath. Urine output of 85 ML's documented. Ongoing IV fluids Objective - Vital Signs Vital signs: Vital Signs Temp 97.7 F 03/06/23 14:31 Pulse 77 03/06/23 14:31 Resp 18 03/06/23 14:31 BP 93/47 03/06/23 14:31 Pulse Ox 100 03/06/23 14:31 FiO2 Intake & Output 03/05/23 03/06/23 03/06/23 18:59 06:59 18:59 Intake Total 1240 1080 120 Output Total 85 Balance 1240 995 120 Weight 60.237 kg Intake: Intake, IV Titration 1000 900 Amount Sodium Chloride 0.9% 1, 750 900 000 ml @ 75 mls/hr IV . [id number] [facility] Rx#:[id number] Vancomycin 1,000 mg In 250 Sodium Chloride 0.9% 250 ml @ 125 mls/hr IVPB ONCE ONE Rx#:[id number] Oral 240 180 120 Output: Urine 85 Other: Voiding Method Bedside Commode Bedside Commode # Voids 1 1 # Bowel Movements 1 1 - Exam No acute distress S1-S2 heard Lungs clear No edema - Labs CBC & Chem 7: 03/02/23 11:30 03/06/23 06:43 Labs: Abnormal Lab Results - Last 24 Hours (Table) 03/06/23 03/06/23 03/06/23 Range/Units 06:43 07:57 12:27 Sodium 129 L (137-145) mmol/L Chloride 96 L (98-107) mmol/L BUN 69 H (7-17) mg/dL Creatinine 6.27 H (0.52-1.04) mg/dL Glucose 407 H (74-99) mg/dL POC Glucose (mg/dL) 386 H 273 H (70-110) mg/dL Calcium 7.9 L (8.4-10.2) mg/dL Microbiology - Last 24 Hours (Table) 03/02/23 15:26 Blood Culture - Preliminary Blood Assessment and Plan Assessment: #1 acute kidney injury secondary to ATN. Etiology unclear. -Baseline creatinine 3.0-3.5 MG per DL. #2 chronic allograft dysfunction, secondary to diabetic nephropathy #3 systolic CHF with EF of 40% #4 hypertension with chronic kidney disease #5 metabolic bone disease #6 UTI Plan: #1 renal function, mild but stable. #2 renal function continues to remain high. Discussed with the patient at length, agreeable for dialysis. #3 repeat labs tomorrow, and initiate [facility] tomorrow.
[2023-03-06 18:00] LABS: Glucose,Whole Blood 120 mg/dL (70-110)
[2023-03-06] MEDS: ACETAMINOPHEN TAB 325 MG TAB PO PRN (20:58)
[2023-03-06] MEDS: ATORVASTATIN 10 MG TAB PO SCH (20:59)
--- NOTE | 2023-03-06 21:07 | XR ---
EXAMINATION TYPE: XR knee limited LT DATE OF EXAM: 03/06/2023 COMPARISON: NONE HISTORY: 72-year-old female knee pain after fall and swelling TECHNIQUE: 2 views FINDINGS: There is severe, [id number] tricompartmental OA. Generalized soft tissue swelling. Most s evere changes are present with bony remodeling at the medial compartment. Trace knee joint effusion m ay be reactive. Vascular calcifications. IMPRESSION: End-stage [id number] tricompartmental OA, most severe in the medial compartment with secondary bony remodeling.
[2023-03-07] MEDS: SODIUM CHLORIDE 0.9% 1,000 ML IV SCH ×2 (06:02→22:34)
[2023-03-07 08:26] LABS: Glucose,Whole Blood 347 mg/dL (70-110)
[2023-03-07] MEDS: TACROLIMUS 1 MG CAP PO SCH ×2 (08:38→22:33)
--- NOTE | 2023-03-07 09:06 | P.PN ---
Subjective Patient is seen in follow-up for renal transplant management and chronic kidney disease. Refusing blood draw this morning. Wants to go home. Has been voiding. Hemodynamically stable. Vital signs are stable. General: No acute distress. HEENT: Head exam is unremarkable. LUNGS: No audible rhonchi or wheezes. HEART: Rate and Rhythm are regular. ABDOMEN: Nontender. EXTREMITITES: No edema. Objective - Vital Signs Vital signs: Vital Signs Temp 98.1 F 03/07/23 07:46 Pulse 96 03/07/23 07:46 Resp 18 03/07/23 07:46 BP 113/64 03/07/23 07:46 Pulse Ox 91 L 03/07/23 07:46 FiO2 Intake & Output 03/06/23 03/07/23 03/07/23 18:59 06:59 18:59 Intake Total 1045 240 Balance 1045 240 Intake: Intake, IV Titration 925 Amount Sodium Chloride 0.9% 1, 675 000 ml @ 75 mls/hr IV . [id number] [facility] Rx#:[id number] Vancomycin 1,000 mg In 250 Sodium Chloride 0.9% 250 ml @ 125 mls/hr IVPB ONCE ONE Rx#:[id number] Oral 120 240 Other: Voiding Method Bedside Commode # Voids 1 1 - Labs CBC & Chem 7: 03/02/23 11:30 03/06/23 06:43 Labs: Abnormal Lab Results - Last 24 Hours (Table) 03/06/23 03/06/23 03/07/23 Range/Units 12:27 17:59 08:25 POC Glucose (mg/dL) 273 H 120 H 347 H (70-110) mg/dL Assessment and Plan Plan: Assessment: 1. Acute kidney injury secondary to ATN with concern for progression of underlying chronic kidney disease. Creatinine stable at 6.27 as of yesterday. Refusing blood draw today. 2. 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 Baseline creatinine 3-3.5. 3. Chronic systolic CHF with ejection fraction of 40% with mild to moderate mitral regurgitation and moderate tricuspid regurgitation. 4. MRSA UTI. 5. Hyponatremia secondary to acute kidney injury/CKD. 6. Hypertension with chronic kidney disease. Stable. 7. Status post donor renal transplant in 2016. 8. Metabolic acidosis secondary to chronic kidney disease maintained on oral bicarbonate. 9. Diabetes mellitus. Plan: Encourage oral intake. Continue to hold off on diuretics. Prograf level 13.8 dated 03/04/2023. Hold Prograf dose this morning and resume at a lower dose of 2 mg twice daily starting tonight. Hold clonidine for systolic blood pressure less than 120. Discussed at length with patient the need for renal replacement therapy due to significantly depressed renal function. Patient adamant in refusing to start renal replacement therapy at this time. Life-threatening risks of not initiating renal replacement therapy including hyperkalemia, acidosis, volume overload as well as signs and symptoms of uremia were discussed with patient. Will continue to address on daily basis. Check phosphorus level.
[2023-03-07 12:09] LABS: Glucose,Whole Blood 339 mg/dL (70-110)
--- NOTE | 2023-03-07 12:26 | P.PN ---
Subjective Progress Note Date: 03/07/23 72-year-old female with a past medical history of ESRD with previous renal transplant in 2016 on antirejection medication currently with stage IV chronic kidney disease, hypertension, hyperlipidemia, insulin-dependent diabetes mellitus, left eye retinal detachment, and right eye retinal bleeds presents the ED for altered mentation. Patient does not provide much history and appears lethargic so majority of information is obtained from documentation. Per ED documentation, patient has been more drowsy according to the son likely due to taking tramadol over the past 3-4 days for a foot injury. Her son is also noticed that her urine has been foul-smelling and patient has been more weak and unable to get out of bed. The symptoms were concerning to the son which prompted him to bring the patient to the ED. In the ED, vital signs were stable. CBC showed hemoglobin of 10.6. CMP showed sodium of 133, BUN of 68, creatinine 6.58, glucose 180, albumin 3. Troponin was 0.101. Urinalysis showed large leukocyte esterase. Brain CT showed remote ischemic change with no evidence of acute hemorrhage or mass effect in the left basal ganglia. Patient is admitted for further management and workup. 03/03 Patient was seen and examined. Pleasantly confused. Much more alert today. Not lethargic. She has no complaints. Troponin 0.101, 0.115, 0.103. CUS shows minimal plaque in BL carotids. Discussed with Dr. 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 Nephrology recommends tacrolimus level, CXR, DC Lokelma, decreased NaHCO3, possible renal replacement if renal function does not improve. BMP shows BUN 67, Cr 6.76. Lipid panel shows T. Chol 145, TG 212, LDL 74.3. 03/04 Patient was seen and examined. Mentation improved. She has no complaints. Refusing MRI brain. Currently undergoing EEG. BMP shows Na 132, Cl 96, BUN 69, Cr 6.69, glucose 203, Ca 8.2. UCx presumptive staph aureus. BCx negative so far. Vit B12 > 3600. Folate 3.4. Nephrology recommends possible renal replacement if renal function does not improve. Produced 150 cc of urine over the past 24H. CXR shows bronchial wall thickening. 03/05 Patient was seen and examined. Patient reports feeling well. Urine culture growing MRSA. Rocephin switched to vancomycin. MRI brain negative for CVA. BMP shows sodium 1:30, bicarb 21, BUN 67, creatinine 6.3, glucose 255 and calcium 8.1. EEG negative for seizures but showing encephalopathy. 03/06 Patient was seen and examined. BMP shows Ba 129, Cl 96, BUN 69, Cr 6.27, glucose 407, Ca 7.9. 03/07 Patient was seen and examined. Apparently found down yesterday evening. She had a X-ray which is very showed severe OA. Today, she is not very cooperative. Patient is refusing hemodialysis at this time. She is refusing lab draws. States that she wants to go home. General: No distress. Pleasantly confused Derm: warm, dry Head: atraumatic, normocephalic, symmetric Eyes: EOMI, no lid lag, anicteric sclera Mouth: no lip lesion, mucus membranes dry Cardiovascular: S1S2 reg, no murmur Lungs: CTA bilateral, no rhonchi, no rales , no accessory muscle use Abdominal: soft, nontender to palpation, no guarding, no appreciable organomegaly Ext: no gross muscle atrophy, no edema, no contractures Neuro: no apparent focal neuro deficits Psych: Alert, oriented x 1 Acute metabolic encephalopathy Hyperglycemia with pseudohypoNa Low folate Urinary tract infection Troponin elevation Acute kidney injury on chronic kidney disease Chronic conditions: ESRD with previous renal transplant in 2016 on antirejection medication currently with stage IV chronic kidney disease, hypertension, hyperlipidemia, insulin-dependent diabetes mellitus, left eye retinal detachment, and right eye retinal bleeds Based on my assessment of this patient, this patient meets a high complexity level of care. Patient has a confusion and forgetfulness with severe exacerbation or progressi on of disease which poses a threat to life or bodily function. MRSA UTI likely cause. Acute metabolic encephalopathy: Multifactorial. MRI brain negative for seizure. Likely secondary to UTI and uremia. Replace Folate by mouth. Hyperglycemia with pseudohypoNa: A1c 7 on 02/11. ISS if patient allows. Hypoglycemic precautions. Accuchecks ACHS. Low folate: Folate 1 mg PO QD. Urinary tract infection: Urine culture positive for MRSA. Patient started on vancomycin dosing per pharmacy. Transition to Bactrim on discharge. Troponin elevation: Flat. ACS ruled out. Echo as above. Acute kidney injury on chronic kidney disease: NS at 75 cc/hr. Patient refusing HD at this time. Recommendation for hemodialysis if renal function does not improve. Appreciate Nephrology recommendations. Monitor vancomycin trough for toxicity given her JONES on CKD. Lovenox SQ for DVT prophylaxis. FULL CODE. I have reviewed the following ux consultant notes: I have reviewed the results of the following tests: Knee XR. I have ordered the following tests: I have discussed the care of this patient with the following independent historian: I have independently interpreted the following test below: I have discussed the management of this patient with the following physician: Objective - Vital Signs Vital signs: Vital Signs Temp 98.1 F 03/07/23 07:46 Pulse 96 03/07/23 07:46 Resp 18 03/07/23 07:46 BP 113/64 03/07/23 07:46 Pulse Ox 91 L 03/07/23 07:46 FiO2 Intake & Output 03/06/23 03/07/23 03/07/23 18:59 06:59 18:59 Intake Total 1045 240 Balance 1045 240 Intake: Intake, IV Titration 925 Amount Sodium Chloride 0.9% 1, 675 000 ml @ 75 mls/hr IV . [id number] [facility] Rx#:[id number] Vancomycin 1,000 mg In 250 Sodium Chloride 0.9% 250 ml @ 125 mls/hr IVPB ONCE ONE Rx#:[id number] Oral 120 240 Other: Voiding Method Bedside Commode Bedside Commode # Voids 1 1 - Labs CBC & Chem 7: 03/02/23 11:30 03/06/23 06:43 Labs: Abnormal Lab Results - Last 24 Hours (Table) 03/06/23 03/06/23 03/07/23 Range/Units 12:27 17:59 08:25 POC Glucose (mg/dL) 273 H 120 H 347 H (70-110) mg/dL 03/07/23 Range/Units 12:08 POC Glucose (mg/dL) 339 H (70-110) mg/dL
[2023-03-07] MEDS: INSULIN ASPART (NovoLOG) 100 UNIT/ML VIAL SQ SCH ×4 (12:57→20:39)
[2023-03-07] MEDS: cloNIDine HCL 0.2 MG TAB PO SCH ×3 (13:00→20:32)
[2023-03-07] MEDS: FAMOTIDINE 20 MG TAB PO SCH (13:05)
[2023-03-07] MEDS: amLODIPine 10 MG TAB PO SCH (13:05)
[2023-03-07] MEDS: ASPIRIN 81 MG PO SCH (13:05)
[2023-03-07] MEDS: ENOXAPARIN 30 MG/0.3 ML SYRINGE SQ SCH (13:05)
[2023-03-07] MEDS: carvediloL 12.5 MG TAB PO SCH ×2 (13:05→20:31)
[2023-03-07] MEDS: MYCOPHENOLATE SODIUM DR 180 MG TABLET.DR PO SCH ×2 (13:06→20:38)
[2023-03-07] MEDS: SODIUM BICARBONATE TAB 650 MG TAB PO SCH ×2 (13:06→20:37)
[2023-03-07] MEDS: FOLIC ACID 1 MG TAB PO SCH (13:06)
[2023-03-07] MEDS: predniSONE 5 MG TAB PO SCH (13:06)
[2023-03-07 17:45] LABS: Glucose,Whole Blood 288 mg/dL (70-110)
[2023-03-07 20:18] LABS: Glucose,Whole Blood 310 mg/dL (70-110)
[2023-03-07] MEDS: ATORVASTATIN 10 MG TAB PO SCH (20:37)
[2023-03-07] MEDS: ACETAMINOPHEN TAB 325 MG TAB PO PRN (20:38)
--- NOTE | 2023-03-07 22:35 | CONS ---
DATE OF CONSULTATION: 03/07/2023 HISTORY: This is a 72-year-old female, patient has history of acute chronic renal failure. The patient's kidney functions are deteriorating, creatinine is 6.5, consulted for placement of dialysis catheter. The patient also has history of kidney transplant done in the past, which has been rejected. The patient also has some history of UTI. SURGICAL HISTORY: This patient had a kidney transplant done in the past. Patient has allograft rejection. The patient also had some fistula placed in the left arm. MEDICAL HISTORY: History of asthma, diabetes mellitus, hyperlipidemia, hypertension. PHYSICAL EXAMINATION: GENERAL: The patient was seen in room. NECK: Supple. No bruit appreciated. CHEST: Clear, equal air entry in both lungs. HEART: First and second sounds present, ejection fraction is 40% to 45%. ABDOMEN: Soft, nontender. EXTREMITIES: Brachial pulses are present. Femorals are 1+ bilaterally. PLAN: Placement of a dialysis catheter. Risks and complications discussed with the patient. Consent for dialysis catheter placement and the patient can have breakfast in the morning, then n.p.o. We will arrange for dialysis tomorrow. MMMAUL / IJN: [id number] / MEGHANA
[2023-03-08 07:54] LABS: Glucose,Whole Blood 374 mg/dL (70-110)
[2023-03-08] MEDS: ENOXAPARIN 30 MG/0.3 ML SYRINGE SQ SCH (08:21)
[2023-03-08] MEDS: cloNIDine HCL 0.2 MG TAB PO SCH ×3 (08:21→22:47)
[2023-03-08] MEDS: INSULIN ASPART (NovoLOG) 100 UNIT/ML VIAL SQ SCH ×4 (08:24→22:46)
[2023-03-08] MEDS: SODIUM BICARBONATE TAB 650 MG TAB PO SCH ×2 (08:25→22:47)
[2023-03-08] MEDS: ACETAMINOPHEN TAB 325 MG TAB PO PRN (08:25)
[2023-03-08] MEDS: FOLIC ACID 1 MG TAB PO SCH (08:26)
[2023-03-08] MEDS: MYCOPHENOLATE SODIUM DR 180 MG TABLET.DR PO SCH ×2 (08:26→22:49)
[2023-03-08] MEDS: ASPIRIN 81 MG PO SCH (08:26)
[2023-03-08] MEDS: FAMOTIDINE 20 MG TAB PO SCH (08:26)
[2023-03-08] MEDS: predniSONE 5 MG TAB PO SCH (08:27)
[2023-03-08] MEDS: TACROLIMUS 1 MG CAP PO SCH ×2 (08:28→22:48)
--- NOTE | 2023-03-08 10:04 | P.PN ---
Subjective Patient is seen in follow-up for renal transplant management and chronic kidney disease. Denies chest pain or shortness of breath. Oral intake fair. Blood pressure stable. Vital signs are stable. General: No acute distress. HEENT: Head exam is unremarkable. LUNGS: No audible rhonchi or wheezes. HEART: Rate and Rhythm are regular. ABDOMEN: Nontender. EXTREMITITES: No edema. Objective - Vital Signs Vital signs: Vital Signs Temp 99.1 F 03/08/23 07:48 Pulse 88 03/08/23 07:48 Resp 16 03/08/23 07:48 BP 111/54 03/08/23 07:48 Pulse Ox 99 03/08/23 07:48 FiO2 Intake & Output 03/07/23 03/08/23 03/08/23 18:59 06:59 18:59 Intake Total 300 200 Balance 300 200 Intake: Oral 300 200 Other: Voiding Method Bedside Commode Bedside Commode # Voids 2 2 # Bowel Movements 1 - Labs CBC & Chem 7: 03/02/23 11:30 03/06/23 06:43 Labs: Abnormal Lab Results - Last 24 Hours (Table) 03/07/23 03/07/23 03/07/23 Range/Units 12:08 17:42 20:17 POC Glucose (mg/dL) 339 H 288 H 310 H (70-110) mg/dL 03/08/23 Range/Units 07:52 POC Glucose (mg/dL) 374 H (70-110) mg/dL Microbiology - Last 24 Hours (Table) 03/02/23 15:26 Blood Culture - Final Blood Assessment and Plan Plan: Assessment: 1. Acute kidney injury secondary to ATN with concern for progression of underlying chronic kidney disease. Creatinine stable at 6.27 dated 03/06/2023. Morning labs pending. 2. 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 Baseline creatinine 3-3.5. 3. Chronic systolic CHF with ejection fraction of 40% with mild to moderate mitral regurgitation and moderate tricuspid regurgitation. 4. MRSA UTI. 5. Hyponatremia secondary to acute kidney injury/CKD. 6. Hypertension with chronic kidney disease. Stable. 7. Status post donor renal transplant in 2016. 8. Metabolic acidosis secondary to chronic kidney disease maintained on oral bicarbonate. 9. Diabetes mellitus. Plan: Encourage oral intake. Continue to hold off on diuretics. Prograf level 13.8 dated 03/04/2023. Dose decreased. Hold clonidine for systolic blood pressure less than 120. Discussed at length with patient the need for renal replacement therapy due to significantly depressed renal function. She is agreeable to start. Also discussed with patient's son Wesley yesterday. Scheduled for permacath placement this afternoon. First treatment of hemodialysis today and second treatment tomorrow. [employer] manager to set up outpatient dialysis. Follow-up morning labs.
[2023-03-08] MEDS: carvediloL 12.5 MG TAB PO SCH ×2 (10:48→18:18)
[2023-03-08] MEDS: amLODIPine 10 MG TAB PO SCH (10:49)
[2023-03-08 11:43] LABS: BUN/Creat Ratio 11.27 Ratio (12.00-20.00); Blood Urea Nitrogen 66.5 mg/dL (9.0-27.0); Calcium 8.7 mg/dL (8.7-10.3); Chloride 96 mmol/L (96-109); Glucose 378 mg/dL (70-110); Magnesium 1.7 mg/dL (1.5-2.4); Phosphorus 3.9 mg/dL (2.4-5.1); Potassium 4.9 mmol/L (3.5-5.5); Sodium 132 mmol/L (135-145)
[2023-03-08 13:10] LABS: Glucose,Whole Blood 250 mg/dL (70-110)
[2023-03-08] MEDS: SODIUM CHLORIDE 0.9% 1,000 ML IV SCH ×2 (13:17→22:55)
[2023-03-08] MEDS ORDERED: fentaNYL (PF) 50 MCG/ML 2 ML AMP IVP ONE (13:41)
[2023-03-08] MEDS ORDERED: MIDAZOLAM 2 MG/2 ML VIAL IVP ONE (13:41)
[2023-03-08] MEDS ORDERED: LIDOCAINE 1% INJ 10MG/ML (30 ML VIAL-PF) SQ ONE ×2 (13:44→14:10)
[2023-03-08] MEDS ORDERED: SODIUM CHLORIDE 0.9% 250 ML IV ONE (13:48)
--- NOTE | 2023-03-08 14:02 | P.PN ---
Subjective Progress Note Date: 03/08/23 72-year-old female with a past medical history of ESRD with previous renal transplant in 2016 on antirejection medication currently with stage IV chronic kidney disease, hypertension, hyperlipidemia, insulin-dependent diabetes mellitus, left eye retinal detachment, and right eye retinal bleeds presents the ED for altered mentation. Patient does not provide much history and appears lethargic so majority of information is obtained from documentation. Per ED documentation, patient has been more drowsy according to the son likely due to taking tramadol over the past 3-4 days for a foot injury. Her son is also noticed that her urine has been foul-smelling and patient has been more weak and unable to get out of bed. The symptoms were concerning to the son which prompted him to bring the patient to the ED. In the ED, vital signs were stable. CBC showed hemoglobin of 10.6. CMP showed sodium of 133, BUN of 68, creatinine 6.58, glucose 180, albumin 3. Troponin was 0.101. Urinalysis showed large leukocyte esterase. Brain CT showed remote ischemic change with no evidence of acute hemorrhage or mass effect in the left basal ganglia. Patient is admitted for further management and workup. 03/03 Patient was seen and examined. Pleasantly confused. Much more alert today. Not lethargic. She has no complaints. Troponin 0.101, 0.115, 0.103. CUS shows minimal plaque in BL carotids. Discussed with Dr. 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 Nephrology recommends possible renal replacement if renal function does not improve. BMP shows BUN 67, Cr 6.76. Lipid panel shows T. Chol 145, TG 212, LDL 74.3. 03/04 Patient was seen and examined. Mentation improved. She has no complaints. Currently undergoing EEG. BMP shows Na 132, Cl 96, BUN 69, Cr 6.69, glucose 203, Ca 8.2. UCx presumptive staph aureus. BCx negative so far. Vit B12 > 3600. Folate 3.4. Nephrology recommends possible renal replacement if renal function does not improve. Produced 150 cc of urine over the past 24H. CXR shows bronchial wall thickening. 03/05 Patient was seen and examined. Patient reports feeling well. Urine culture growing MRSA. Rocephin switched to vancomycin. MRI brain negative for CVA. BMP shows sodium 130, bicarb 21, BUN 67, creatinine 6.3, glucose 255 and calcium 8.1. EEG negative for seizures but showing encephalopathy. 03/06 Patient was seen and examined. No acute events overnight. BMP shows Na 129, Cl 96, BUN 69, Cr 6.27, glucose 407, Ca 7.9. 03/07 Patient was seen and examined. Apparently found down yesterday evening. She had a X-ray which is showed severe OA. Today, she is not very cooperative. Patient is refusing hemodialysis at this time. She is refusing lab draws. States that she wants to go home. 03/08 Patient was seen and examined. More cooperative today. Agreeable for HD. Permacath to be placed afternoon by Vascular surgery. Intermittently refusing medications and blood draws. POC glucose ranging from 250-374 over the past 24H but refusing insulin at times. BMP shows Na 132, anion gap 13, BUN 66.5, Cr 5.9, glucose 378. Mag 1.7. Case management on board for SNF. General: No distress. Pleasantly confused Derm: warm, dry Head: atraumatic, normocephalic, symmetric Eyes: EOMI, no lid lag, anicteric sclera Mouth: no lip lesion, mucus membranes dry Cardiovascular: S1S2 reg, no murmur Lungs: CTA bilateral, no rhonchi, no rales , no accessory muscle use Abdominal: soft, nontender to palpation, no guarding, no appreciable organomegaly Ext: no gross muscle atrophy, no edema, no contractures Hyperglycemia with pseudohypoNa Low folate Urinary tract infection Troponin elevation Acute kidney injury on chronic kidney disease Chronic conditions: ESRD with previous renal transplant in 2016 on antirejection medication currently with stage IV chronic kidney disease, hypertension, hyperlipidemia, insulin-dependent diabetes mellitus, left eye retinal detachment, and right eye retinal bleeds Based on my assessment of this patient, this patient meets a moderate complexity level of care. Patient has a confusion and forgetfulness with severe exacerbation or progression of disease which poses a threat to life or bodily function. MRSA UTI and uremia likely cause. Acute metabolic encephalopathy: Multifactorial. MRI brain negative for seizure. Likely secondary to UTI and uremia. Replace Folate by mouth. Hyperglycemia with pseudohypoNa: A1c 7 on 02/11. ISS if patient allows. Hypoglycemic precautions. Accuchecks ACHS. Low folate: Folate 1 mg PO QD. Urinary tract infection: Urine culture positive for MRSA. Discontinue Vancomycin, transition to Bactrim (after HD). Troponin elevation: Flat. ACS ruled out. Echo as above. Acute kidney injury on chronic kidney disease: NS at 75 cc/hr. Agreeable for HD today, plans for permacath this afternoon. Vascular surgery on board. Appreciate Nephrology recommendations. Lovenox SQ for DVT prophylaxis. FULL CODE. I have reviewed the following franchise consultant notes: Nephrology note. I have reviewed the results of the following tests: BMP. [facility] I have ordered the following tests: Agree with BMP. I have discussed the care of this patient with the following independent his maeve: I have independently interpreted the following test below: I have discussed the management of this patient with the following physician: Objective - Vital Signs Vital signs: Vital Signs Temp 99.4 F 03/08/23 12:53 Pulse 85 03/08/23 10:47 Resp 16 03/08/23 12:53 BP 123/60 03/08/23 12:53 Pulse Ox 100 03/08/23 12:53 FiO2 Intake & Output 03/07/23 03/08/23 03/08/23 18:59 06:59 18:59 Intake Total 300 200 Balance 300 200 Weight 60.237 kg Intake: Oral 300 200 Other: Voiding Method Bedside Commode Bedside Commode Bedside Commode # Voids 2 2 # Bowel Movements 1 - Labs CBC & Chem 7: 03/02/23 11:30 03/08/23 06:12 Labs: Abnormal Lab Results - Last 24 Hours (Table) 03/07/23 03/07/23 03/08/23 Range/Units 17:42 20:17 06:12 Sodium 132 L (135-145) mmol/L Anion Gap 13.00 H (4.00-12.00) mmol/L BUN 66.5 H (9.0-27.0) mg/dL Creatinine 5.9 H (0.6-1.5) mg/dL Est GFR (CKD-EPI) 7 L (>=60) BUN/Creatinine Ratio 11.27 L (12.00-20.00) Ratio Glucose 378 H (70-110) mg/dL POC Glucose (mg/dL) 288 H 310 H (70-110) mg/dL 03/08/23 03/08/23 Range/Units 07:52 13:00 Sodium (135-145) mmol/L Anion Gap (4.00-12.00) mmol/L BUN (9.0-27.0) mg/dL Creatinine (0.6-1.5) mg/dL Est GFR (CKD-EPI) (>=60) BUN/Creatinine Ratio (12.00-20.00) Ratio Glucose (70-110) mg/dL POC Glucose (mg/dL) 374 H 250 H (70-110) mg/dL Microbiology - Last 24 Hours (Table) 03/02/23 15:26 Blood Culture - Final Blood
[2023-03-08] MEDS ORDERED: methylPREDNISolone SOD SUCCI 125 MG/2 ML VIAL IVP ONE (14:14)
[2023-03-08] MEDS ORDERED: diphenhydrAMINE 50 MG/ML 1 ML VIAL IVP ONE (14:14)
[2023-03-08] MEDS ORDERED: HEPARIN SODIUM 1,000 UN/ML (10ML VL) IVP ONE (14:46)
[2023-03-08] MEDS ORDERED: IOPAMIDOL-250 100ML BTL INTRAARTER ONE (14:49)
--- NOTE | 2023-03-08 15:10 | IR ---
EXAMINATION TYPE: IR cvc insert central tunneled DATE OF EXAM: 03/08/2023 COMPARISON: NONE HISTORY: Fluoroscopy time. Fluoroscopy was provided to the referring clinician.
--- NOTE | 2023-03-08 15:22 | XR ---
EXAMINATION TYPE: XR chest 1V portable DATE OF EXAM: 03/08/2023 Comparison: 02/23/2023 Clinical History: 72-year-old female post dialysis catheter placement Findings: Heart upper limits of normal in size. Left-sided double-lumen hemodialysis catheter with tips at the lower SVC. Mild interstitial prominence without consolidation or pleural effusion. No pneumothorax. Impression: 1. Left-sided double lumen hemodialysis catheter with tips at the lower SVC. 2. Mild interstitial prominence, probably chronic. Correlate to exclude mild pulmonary vascular conge stion.
--- NOTE | 2023-03-08 15:47 | OP ---
OPERATIVE REPORT DATE OF SERVICE : 03/08/2023 PREOPERATIVE DIAGNOSIS: Acute chronic failure. POSTOPERATIVE DIAGNOSIS: Acute chronic failure. PROCEDURE PERFORMED: Placement of dialysis catheter, 23 cm left jugular approach. DESCRIPTION OF PROCEDURE: The patient was brought to the dairy lab technician. Right and left side of the neck was prepped and draped in sterile manner. First, we attempted to access the right IJ. The patient has a small and there was scarring. Previous catheter had been placed in the past, so we decided to go from the left side. 1% lidocaine was infiltrated. Ultrasound- guided micropuncture introduced into the left jugular vein. Micropuncture guidewire was passed and 4-Greenlandic dilator advanced on the top of the guidewire. We passed a guidewire, guidewire will go to the subclavian vein. At this point, we did the vena cavogram and found to have the superior vena cava was found to be patent. Then, guidewire was used, which was parked in the inferior vena cava. Then, tunnel was created. Through the tunnel, we brought the dialysis catheter. Dilator was advanced and sheath was advanced under fluoroscopic control. Through the sheath, we placed a dialysis catheter. Tip of the catheter in superior vena cava atrial junction flushed with heparin saline and hep-locked, secured with 3-0 nylon and dressing applied. The patient tolerated the procedure well. MMODL / IJN: [id number] / MEGHANA
[2023-03-08 17:21] LABS: Glucose,Whole Blood 331 mg/dL (70-110)
[2023-03-08 22:06] LABS: Glucose,Whole Blood 330 mg/dL (70-110)
[2023-03-08] MEDS: SULFAMETHOX-TMP 800-160MG 1 EACH TAB PO SCH (22:47)
[2023-03-08] MEDS: ATORVASTATIN 10 MG TAB PO SCH (22:49)
[2023-03-09 01:38] LABS: Hepatitis B Surface AB- Quant 3.5 mIU/mL; Hepatitis B Surface Antigen Nonreactive
[2023-03-09 07:24] LABS: Glucose,Whole Blood 331 mg/dL (70-110)
[2023-03-09] MEDS: INSULIN ASPART (NovoLOG) 100 UNIT/ML VIAL SQ SCH ×4 (09:00→21:01)
--- NOTE | 2023-03-09 11:00 | P.PN ---
Subjective Patient is seen in follow-up for renal transplant management and chronic kidney disease. Denies chest pain or shortness of breath. Oral intake fair. Blood pressure stable. Started on HD 03/08/23. Vital signs are stable. General: No acute distress. HEENT: Head exam is unremarkable. LUNGS: No audible rhonchi or wheezes. HEART: Rate and Rhythm are regular. ABDOMEN: Nontender. EXTREMITITES: No edema. Objective - Vital Signs Vital signs: Vital Signs Temp 98 F 03/09/23 07:20 Pulse 75 03/09/23 07:20 Resp 18 03/09/23 07:20 BP 137/63 03/09/23 07:20 Pulse Ox 99 03/09/23 07:20 FiO2 Intake & Output 03/08/23 03/09/23 03/09/23 18:59 06:59 18:59 Intake Total 250 540 Output Total 0 Balance 250 540 Weight 60.237 kg Intake: IV 250 Intake, IV Titration 0 Amount Sodium Chloride 0.9% 1, 0 000 ml @ 75 mls/hr IV . [id number] [facility] Rx#:[id number] Oral 240 Hemodialysis 300 Output: Hemodialysis 0 Other: Voiding Method Bedside Commode Bedside Commode # Voids 2 - Labs CBC & Chem 7: 03/02/23 11:30 03/08/23 06:12 Labs: Abnormal Lab Results - Last 24 Hours (Table) 03/08/23 03/08/23 03/08/23 Range/Units 06:12 13:00 17:17 Sodium 132 L (135-145) mmol/L Anion Gap 13.00 H (4.00-12.00) mmol/L BUN 66.5 H (9.0-27.0) mg/dL Creatinine 5.9 H (0.6-1.5) mg/dL Est GFR (CKD-EPI) 7 L (>=60) BUN/Creatinine Ratio 11.27 L (12.00-20.00) Ratio Glucose 378 H (70-110) mg/dL POC Glucose (mg/dL) 250 H 331 H (70-110) mg/dL 03/08/23 03/09/23 Range/Units 22:00 07:23 Sodium (135-145) mmol/L Anion Gap (4.00-12.00) mmol/L BUN (9.0-27.0) mg/dL Creatinine (0.6-1.5) mg/dL Est GFR (CKD-EPI) (>=60) BUN/Creatinine Ratio (12.00-20.00) Ratio Glucose (70-110) mg/dL POC Glucose (mg/dL) 330 H 331 H (70-110) mg/dL Assessment and Plan Plan: Assessment: 1. Acute kidney injury secondary to ATN with concern for progression of underlying chronic kidney disease. Creatinine greater than 6 this admission. Started on hemodialysis 03/08/2023. 2. 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 Baseline creatinine 3-3.5. 3. Chronic systolic CHF with ejection fraction of 40% with mild to moderate mitral regurgitation and moderate tricuspid regurgitation. 4. MRSA UTI. 5. Hyponatremia secondary to acute kidney injury/CKD. Improving with HD. 6. Hypertension with chronic kidney disease. Stable. 7. Status post donor renal transplant in 2016. 8. Metabolic acidosis secondary to chronic kidney disease maintained on oral bicarbonate. 9. Diabetes mellitus. Plan: Currently seen while undergoing hemodialysis. Plan for next treatment on Tuesday. Encouraged oral intake. Continue to hold off on diuretics. Prograf level 13.8 dated 03/04/2023. Dose decreased. Hold clonidine for systolic blood pressure less than 120. site manager to set up outpatient dialysis. Phosphorus level 3.9 dated 03/08/2023.
[2023-03-09 12:18] LABS: Glucose,Whole Blood 279 mg/dL (70-110)
[2023-03-09] MEDS: cloNIDine HCL 0.2 MG TAB PO SCH ×3 (13:01→21:29)
[2023-03-09] MEDS: ENOXAPARIN 30 MG/0.3 ML SYRINGE SQ SCH (13:05)
[2023-03-09] MEDS: carvediloL 12.5 MG TAB PO SCH ×2 (13:05→21:00)
[2023-03-09] MEDS: ASPIRIN 81 MG PO SCH (13:05)
[2023-03-09] MEDS: amLODIPine 10 MG TAB PO SCH (13:05)
[2023-03-09] MEDS: predniSONE 5 MG TAB PO SCH (13:06)
[2023-03-09] MEDS: MYCOPHENOLATE SODIUM DR 180 MG TABLET.DR PO SCH ×2 (13:06→21:03)
[2023-03-09] MEDS: SODIUM BICARBONATE TAB 650 MG TAB PO SCH ×2 (13:06→21:02)
[2023-03-09] MEDS: FOLIC ACID 1 MG TAB PO SCH (13:06)
[2023-03-09] MEDS: TACROLIMUS 1 MG CAP PO SCH ×2 (13:06→21:02)
[2023-03-09] MEDS: FAMOTIDINE 20 MG TAB PO SCH (13:06)
[2023-03-09 13:51] LABS: BUN/Creat Ratio 11.27 Ratio (12.00-20.00); Blood Urea Nitrogen 49.6 mg/dL (9.0-27.0); Calcium 8.5 mg/dL (8.7-10.3); Carbon Dioxide 23.6 mmol/L (21.6-31.8); Chloride 96 mmol/L (96-109); Glucose 380 mg/dL (70-110); Magnesium 1.7 mg/dL (1.5-2.4); Phosphorus 3.8 mg/dL (2.4-5.1); Potassium 4.7 mmol/L (3.5-5.5); Sodium 133 mmol/L (135-145)
[2023-03-09] MEDS: SODIUM CHLORIDE 0.9% 1,000 ML IV SCH (15:50)
--- NOTE | 2023-03-09 16:38 | P.PN ---
Subjective Progress Note Date: 03/09/23 (delayed charting seen at 0930) Patient is a 78-year-old female with renal transplant in 2016 and prior hemodialysis currently with chronic kidney disease stage IV the transplanted kidney, hypertension, dyslipidemia, and insulin-dependent diabetes mellitus who presented to the emergency department with altered mentation. He had been taking tramadol and becoming more obtunded and her son noted that she was having fall smelling urine and became more weak and unable to get out of bed. In the emergency department she underwent a CT head which showed no acute hemorrhage, mass effect, and remote ischemic changes. Urinalysis was consistent with urinary tract infection. He was started on IV antibiotics and admitted for further management. Nephrology was consulted as well as neurology. Patient underwent EEG which demonstrated encephalopathy but no signs of seizure activity. MRI of the brain was negative for acute CVA, carotid Dopplers were negative for hemodynamically significant carotid stenosis. Her urine culture came back with MRSA and she was subsequently transitioned from Rocephin to vancomycin. Her renal function continued to worsen and unfortunately nephrology determined that she would again need renal replacement therapy. Permacath was placed by vascular surgery on 03/08 and she was started on hemodialysis. Patient seen and examined at bedside. She denies any chest pain, shortness of breath, or diarrhea. She is very frustrated about having to go back on hemodialysis. Vital signs reviewed General: [nontoxic], [no distress], [appears at stated age] Cardiovascular: [S1S2 reg], [no murmur], [positive posterior tibial pulse bilateral], Lungs: [CTA bilateral], [no rhonchi, no rales] , [no accessory muscle use] Abdominal: [soft], [ nontender to palpation], [no guarding], [no appreciable organomegaly] Ext: [no gross muscle atrophy], [no edema b/l lower extremities], [no contractures] Neuro: [ CN II-XI grossly intact], [no focal neuro deficits] Psych: [Alert], [oriented], [appropriate affect] Assessment/Plan: MRSA urinary tract infection, present on admission, not catheter associated Diabetes mellitus type 2 with hyperglycemia Troponin elevation secondary to renal dysfunction and not consistent with acute coronary syndrome -Bactrim DS 1 tablet daily dose 1 of 4 -Nephrology recommendations. Case discussed with Dr. Clark who is agreeable to set patient up for outpatient hemodialysis -Continue with Prograf 2 mg twice daily, prednisone 5 mg daily, mycophenolate 360 mg twice daily -Continue with sliding scale insulin, add Levemir 10 units at night, contact Dr. Purcell's office to determine her outpatient insulin dosing Folate deficiency -Folic acid 1 mg daily Metabolic encephalopathy, resolved Chronic: Hypertension Dyslipidemia Imaging: None new Data Review: Labs reviewed from today reveal sodium 133, BUN 49, creatinine 4.4 (down from 5.9), glucose 380, calcium 8.5, phosphorus 3.8, magnesium 1.7 DVT prophylaxis: Lovenox Anticipated discharge date: in AM Anticipated discharge place: [facility] This dictation was prepared using [employer] voice recognition software. Though every attempt is made to correct errors during dictation some may still exist. Objective - Vital Signs Vital signs: Vital Signs Temp 99 F 03/09/23 12:15 Pulse 74 03/09/23 12:15 Resp 17 03/09/23 12:15 BP 144/73 03/09/23 12:15 Pulse Ox 98 03/09/23 12:15 FiO2 Intake & Output 03/08/23 03/09/23 03/09/23 18:59 06:59 18:59 Intake Total 250 540 300 Output Total 0 800 Balance 250 540 -500 Weight 60.237 kg Intake: IV 250 Intake, IV Titration 0 Amount Sodium Chloride 0.9% 1, 0 000 ml @ 75 mls/hr IV . [id number] [facility] Rx#:[id number] Oral 240 Hemodialysis 300 300 Output: Hemodialysis 0 800 Other: Voiding Method Bedside Commode Bedside Commode Bedside Commode # Voids 2 - Labs CBC & Chem 7: 03/02/23 11:30 03/09/23 08:16 Labs: Abnormal Lab Results - Last 24 Hours (Table) 03/08/23 03/08/23 03/09/23 Range/Units 17:17 22:00 07:23 Sodium (135-145) mmol/L Anion Gap (4.00-12.00) mmol/L BUN (9.0-27.0) mg/dL Creatinine (0.6-1.5) mg/dL Est GFR (CKD-EPI) (>=60) BUN/Creatinine Ratio (12.00-20.00) Ratio Glucose (70-110) mg/dL POC Glucose (mg/dL) 331 H 330 H 331 H (70-110) mg/dL Calcium (8.7-10.3) mg/dL 03/09/23 03/09/23 Range/Units 08:16 12:17 Sodium 133 L (135-145) mmol/L Anion Gap 13.40 H (4.00-12.00) mmol/L BUN 49.6 H (9.0-27.0) mg/dL Creatinine 4.4 H (0.6-1.5) mg/dL Est GFR (CKD-EPI) 10 L (>=60) BUN/Creatinine Ratio 11.27 L (12.00-20.00) Ratio Glucose 380 H (70-110) mg/dL POC Glucose (mg/dL) 279 H (70-110) mg/dL Calcium 8.5 L (8.7-10.3) mg/dL
[2023-03-09 17:21] LABS: Glucose,Whole Blood 397 mg/dL (70-110)
[2023-03-09] MEDS: ACETAMINOPHEN TAB 325 MG TAB PO PRN (18:08)
[2023-03-09] MEDS: SULFAMETHOX-TMP 800-160MG 1 EACH TAB PO SCH (18:36)
[2023-03-09 20:27] LABS: Glucose,Whole Blood 419 mg/dL (70-110)
[2023-03-09] MEDS ORDERED: INSULIN DETEMIR (LEVEMIR) 100 UNIT/ML SYR SQ SCH (21:00)
[2023-03-09] MEDS: ATORVASTATIN 10 MG TAB PO SCH (21:02)
[2023-03-09 22:58] LABS: Glucose,Whole Blood 333 mg/dL (70-110)
[2023-03-09] MEDS ORDERED: INSULIN ASPART (NovoLOG) 100 UNIT/ML VIAL SQ ONE (23:02)
[2023-03-10 01:00] LABS: Glucose,Whole Blood 260 mg/dL (70-110)
[2023-03-10] MEDS: SODIUM CHLORIDE 0.9% 1,000 ML IV SCH (02:32)
[2023-03-10] MEDS: ACETAMINOPHEN TAB 325 MG TAB PO PRN (06:08)
[2023-03-10 06:29] LABS: African American GFR (CKD) 17 (>60 ml/min/1.73 sqM); Anion Gap 5 mmol/L; Blood Urea Nitrogen 37 mg/dL (7-17); Carbon Dioxide 27 mmol/L (22-30); Chloride 96 mmol/L (98-107); Glucose 70 mg/dL (74-99); Non-African American GFR(CKD) 15 (>60 ml/min/1.73 sqM); Potassium 3.4 mmol/L (3.5-5.1); Sodium 128 mmol/L (137-145)
[2023-03-10 07:10] LABS: Glucose,Whole Blood 65 mg/dL (70-110)
[2023-03-10 07:26] LABS: Glucose,Whole Blood 65 mg/dL (70-110)
[2023-03-10 07:43] LABS: Glucose,Whole Blood 70 mg/dL (70-110)
[2023-03-10] MEDS: INSULIN ASPART (NovoLOG) 100 UNIT/ML VIAL SQ SCH ×4 (08:17→21:00)
[2023-03-10] MEDS: ENOXAPARIN 30 MG/0.3 ML SYRINGE SQ SCH (09:58)
[2023-03-10] MEDS: predniSONE 5 MG TAB PO SCH (09:59)
[2023-03-10] MEDS: carvediloL 12.5 MG TAB PO SCH ×2 (09:59→18:12)
[2023-03-10] MEDS: FOLIC ACID 1 MG TAB PO SCH (09:59)
[2023-03-10] MEDS: cloNIDine HCL 0.2 MG TAB PO SCH (09:59)
[2023-03-10] MEDS: MYCOPHENOLATE SODIUM DR 180 MG TABLET.DR PO SCH ×2 (09:59→21:00)
[2023-03-10] MEDS: TACROLIMUS 1 MG CAP PO SCH ×2 (10:00→20:58)
[2023-03-10] MEDS: FAMOTIDINE 20 MG TAB PO SCH (10:00)
[2023-03-10] MEDS: amLODIPine 10 MG TAB PO SCH (10:00)
[2023-03-10] MEDS: SODIUM BICARBONATE TAB 650 MG TAB PO SCH ×2 (10:00→20:58)
[2023-03-10] MEDS: ASPIRIN 81 MG PO SCH (10:00)
[2023-03-10 12:06] LABS: Glucose,Whole Blood 114 mg/dL (70-110)
[2023-03-10] MEDS ORDERED: POTASSIUM CHLORIDE ER 20 MEQ TAB.ER PO STA (12:31)
--- NOTE | 2023-03-10 12:31 | P.PN ---
Subjective Patient is seen in follow-up for renal transplant management and chronic kidney disease. Denies chest pain or shortness of breath. Oral intake fair. Blood pressure stable. Started on HD 03/08/23. Sitting up in chair. No active complaints. Vital signs are stable. General: No acute distress. HEENT: Head exam is unremarkable. LUNGS: No audible rhonchi or wheezes. HEART: Rate and Rhythm are regular. ABDOMEN: Nontender. EXTREMITITES: No edema. Objective - Vital Signs Vital signs: Vital Signs Temp 97.2 F L 03/10/23 07:15 Pulse 64 03/10/23 07:15 Resp 16 03/10/23 07:15 BP 126/57 03/10/23 07:15 Pulse Ox 94 L 03/10/23 07:15 FiO2 Intake & Output 03/09/23 03/10/23 03/10/23 18:59 06:59 18:59 Intake Total 300 Output Total 800 Balance -500 Intake: Hemodialysis 300 Output: Hemodialysis 800 Other: Voiding Method Bedside Commode Bedside Commode Bedside Commode # Voids 1 1 # Bowel Movements 1 - Labs CBC & Chem 7: 03/02/23 11:30 03/10/23 05:51 Labs: Abnormal Lab Results - Last 24 Hours (Table) 03/09/23 03/09/23 03/09/23 Range/Units 08:16 17:19 20:24 Sodium 133 L (135-145) mmol/L Potassium (3.5-5.1) mmol/L Chloride (98-107) mmol/L Anion Gap 13.40 H (4.00-12.00) mmol/L BUN 49.6 H (9.0-27.0) mg/dL Creatinine 4.4 H (0.6-1.5) mg/dL Est GFR (CKD-EPI) 10 L (>=60) BUN/Creatinine Ratio 11.27 L (12.00-20.00) Ratio Glucose 380 H (70-110) mg/dL POC Glucose (mg/dL) 397 H 419 H (70-110) mg/dL Calcium 8.5 L (8.7-10.3) mg/dL 03/09/23 03/10/23 03/10/23 Range/Units 22:56 00:59 05:51 Sodium 128 L (135-145) mmol/L Potassium 3.4 L (3.5-5.1) mmol/L Chloride 96 L (98-107) mmol/L Anion Gap (4.00-12.00) mmol/L BUN 37 H (9.0-27.0) mg/dL Creatinine 3.05 H (0.6-1.5) mg/dL Est GFR (CKD-EPI) (>=60) BUN/Creatinine Ratio (12.00-20.00) Ratio Glucose 70 L (70-110) mg/dL POC Glucose (mg/dL) 333 H 260 H (70-110) mg/dL Calcium 8.0 L (8.7-10.3) mg/dL 03/10/23 03/10/23 03/10/23 Range/Units 07:08 07:25 12:04 Sodium (135-145) mmol/L Potassium (3.5-5.1) mmol/L Chloride (98-107) mmol/L Anion Gap (4.00-12.00) mmol/L BUN (9.0-27.0) mg/dL Creatinine (0.6-1.5) mg/dL Est GFR (CKD-EPI) (>=60) BUN/Creatinine Ratio (12.00-20.00) Ratio Glucose (70-110) mg/dL POC Glucose (mg/dL) 65 L 65 L 114 H (70-110) mg/dL Calcium (8.7-10.3) mg/dL Assessment and Plan Plan: Assessment: 1. Acute kidney injury secondary to ATN with concern for progression of underlying chronic kidney disease. Creatinine greater than 6 this admission. Started on hemodialysis 03/08/2023. 2. 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 Baseline creatinine 3-3.5. 3. Chronic systolic CHF with ejection fraction of 40% with mild to moderate mitral regurgitation and moderate tricuspid regurgitation. 4. MRSA UTI. On antibiotics. 5. Hyponatremia secondary to acute kidney injury/CKD. 6. Hypertension with chronic kidney disease. Stable. 7. Status post donor renal transplant in 2016. 8. Metabolic acidosis secondary to chronic kidney disease maintained on oral bicarbonate. Improved postdialysis. 9. Diabetes mellitus. Plan: Hemodialysis tomorrow. Encouraged oral intake. Continue to hold off on diuretics. Prograf level 13.8 dated 03/04/2023. Dose decreased. Repeat Prograf level. Decrease dose of bicarb. Hold clonidine for systolic blood pressure less than 120. Decrease dose to 0.1 mg. internet technology manager to set up outpatient dialysis. Phosphorus level 3.9 dated 03/08/2023.
[2023-03-10 17:16] LABS: Glucose,Whole Blood 265 mg/dL (70-110)
[2023-03-10] MEDS: SULFAMETHOX-TMP 800-160MG 1 EACH TAB PO SCH (18:12)
--- NOTE | 2023-03-10 19:11 | P.PN ---
Subjective Progress Note Date: 03/10/23 (manuel charting seen at 0930) Patient is a 78-year-old female with renal transplant in 2016 and prior hemodialysis currently with chronic kidney disease stage IV the transplanted kidney, hypertension, dyslipidemia, and insulin-dependent diabetes mellitus who presented to the emergency department with altered mentation. He had been taking tramadol and becoming more obtunded and her son noted that she was having fall smelling urine and became more weak and unable to get out of bed. In the emergency department she underwent a CT head which showed no acute hemorrhage, mass effect, and remote ischemic changes. Urinalysis was consistent with urinary tract infection. He was started on IV antibiotics and admitted for further management. Nephrology was consulted as well as neurology. Patient underwent EEG which demonstrated encephalopathy but no signs of seizure activity. MRI of the brain was negative for acute CVA, carotid Dopplers were negative for hemodynamically significant carotid stenosis. Her urine culture came back with MRSA and she was subsequently transitioned from Rocephin to vancomycin. Her renal function continued to worsen and unfortunately nephrology determined that she would again need renal replacement therapy. Permacath was placed by vascular surgery on 03/08 and she was started on hemodialysis. Patient seen and examined at bedside. She does not want to be going to rehab. We have a long discussion regarding her need for rehabilitation and continued dialysis. She denies any chest pain or shortness of breath. Vital signs reviewed General: nontoxic, no distress, appears at stated age Cardiovascular: S1S2 reg, no murmur, positive posterior tibial pulse bilateral, Lungs: CTA bilateral, no rhonchi, no rales , no accessory muscle use Abdominal: soft, nontender to palpation, no guarding, no appreciable organomegaly Ext: no gross muscle atrophy, no edema b/l lower extremities, no contractures Neuro: CN II-XI grossly intact, no focal neuro deficits Psych: Alert, oriented, appropriate affect Assessment/Plan: MRSA urinary tract infection, present on admission, not catheter associated Diabetes mellitus type 2 with hyperglycemia Troponin elevation secondary to renal dysfunction and not consistent with acute coronary syndrome -Bactrim DS 1 tablet daily dose 2 of 4 -Nephrology note reviewed-hemodialysis tomorrow, hold diuretics, await repeat Prograf level. Decrease clonidine dose to 0.1 mg -Continue with Prograf 2 mg twice daily, prednisone 5 mg daily, mycophenolate 360 mg twice daily -Records reviewed of medications from primary care physician's office. She does take Levemir 35 units at night and Humalog 15 units 3 times daily with meals. -Patient's a.m. fasting blood sugar was 70 will decrease Levemir to 5 units at night, continue with sliding scale insulin -Case discussed with social work. Patient cannot start hemodialysis on Tuesday as an outpatient. She'll be discharged tomorrow with on Tuesday after hemodialysis Folate deficiency -Folic acid 1 mg daily Metabolic encephalopathy, resolved Chronic: Hypertension Dyslipidemia Imaging: None new Data Review: Labs reviewed from today include BM P which was remarkable for sodium 128, potassium 3.4, chloride 96, BUN 37, creatinine 3.05, and glucose of 70. DVT prophylaxis: Lovenox Anticipated discharge date and place:03/12/23 to [facility] This dictation was prepared using [employer] voice recognition software. Though every attempt is made to correct errors during dictation some may still exist. Objective - Vital Signs Vital signs: Vital Signs Temp 98.0 F 03/10/23 13:49 Pulse 68 03/10/23 13:49 Resp 14 03/10/23 13:49 BP 107/57 03/10/23 13:49 Pulse Ox 96 03/10/23 13:49 FiO2 Intake & Output 03/10/23 03/10/23 03/11/23 06:59 18:59 06:59 Intake Total 300 Balance 300 Weight 60.237 kg Intake: Oral 300 Other: Voiding Method Bedside Commode Bedside Commode # Voids 1 1 # Bowel Movements 1 - Labs CBC & Chem 7: 03/02/23 11:30 03/10/23 05:51 Labs: Abnormal Lab Results - Last 24 Hours (Table) 03/09/23 03/09/23 03/10/23 Range/Units 20:24 22:56 00:59 Sodium (137-145) mmol/L Potassium (3.5-5.1) mmol/L Chloride (98-107) mmol/L BUN (7-17) mg/dL Creatinine (0.52-1.04) mg/dL Glucose (74-99) mg/dL POC Glucose (mg/dL) 419 H 333 H 260 H (70-110) mg/dL Calcium (8.4-10.2) mg/dL 03/10/23 03/10/23 03/10/23 Range/Units 05:51 07:08 07:25 Sodium 128 L (137-145) mmol/L Potassium 3.4 L (3.5-5.1) mmol/L Chloride 96 L (98-107) mmol/L BUN 37 H (7-17) mg/dL Creatinine 3.05 H (0.52-1.04) mg/dL Glucose 70 L (74-99) mg/dL POC Glucose (mg/dL) 65 L 65 L (70-110) mg/dL Calcium 8.0 L (8.4-10.2) mg/dL 03/10/23 03/10/23 Range/Units 12:04 17:14 Sodium (137-145) mmol/L Potassium (3.5-5.1) mmol/L Chloride (98-107) mmol/L BUN (7-17) mg/dL Creatinine (0.52-1.04) mg/dL Glucose (74-99) mg/dL POC Glucose (mg/dL) 114 H 265 H (70-110) mg/dL Calcium (8.4-10.2) mg/dL
[2023-03-10 20:24] LABS: Glucose,Whole Blood 345 mg/dL (70-110)
[2023-03-10] MEDS: ATORVASTATIN 10 MG TAB PO SCH (20:58)
[2023-03-10] MEDS: cloNIDine HCL 0.1 MG TAB PO SCH (20:58)
[2023-03-10] MEDS ORDERED: cloNIDine HCL 0.2 MG TAB PO SCH (21:00)
[2023-03-10] MEDS ORDERED: INSULIN DETEMIR (LEVEMIR) 100 UNIT/ML SYR SQ SCH (21:00)
[2023-03-11 07:15] LABS: Glucose,Whole Blood 118 mg/dL (70-110)
[2023-03-11] MEDS: INSULIN ASPART (NovoLOG) 100 UNIT/ML VIAL SQ SCH ×2 (07:24→12:35)
--- NOTE | 2023-03-11 09:57 | P.DS ---
Providers Date of admission: 03/02/23 14:22 Expected date of discharge: 03/11/23 Attending physician: Emmanuelle Caldwell MD Consults: 03/02/23 16:48 Consult Physician Routine Consulting Provider: Devi Magaña Consult Reason/Comments: worsening renal failure Do you want consulting provider notified?: Yes, Notify in am 03/02/23 17:22 Consult Physician Routine Consulting Provider: Douglas Lopez Consult Reason/Comments: Infarct Do you want consulting provider notified?: Yes 03/07/23 13:20 Consult Physician Routine Consulting Provider: Romero Garrett Consult Reason/Comments: Permanent hemodialysis cathheter Do you want consulting provider notified?: Yes Primary care physician: Raza Porras [facility] Course: Discharge Diagnosis: MRSA urinary tract infection, present on admission, not catheter associated, completed treatment Diabetes mellitus type 2 with hyperglycemia Troponin elevation secondary to renal dysfunction and not consistent with acute coronary syndrome Folate deficiency Metabolic encephalopathy, resolved Hypertension Dyslipidemia Hospital Course: Patient is a 78-year-old female with renal transplant in 2016 and prior hemodialysis currently with chronic kidney disease stage IV the transplanted kidney, hypertension, dyslipidemia, and insulin-dependent diabetes mellitus who presented to the emergency department with altered mentation. He had been taking tramadol and becoming more obtunded and her son noted that she was having fall smelling urine and became more weak and unable to get out of bed. In the emergency department she underwent a CT head which showed no acute hemorrhage, mass effect, and remote ischemic changes. Urinalysis was consistent with urinary tract infection. He was started on IV antibiotics and admitted for further management. Nephrology was consulted as well as neurology. Patient underwent EEG which demonstrated encephalopathy but no signs of seizure activity. MRI of the brain was negative for acute CVA, carotid Dopplers were negative for hemodynamically significant carotid stenosis. Her urine culture came back with MRSA and she was subsequently transitioned from Rocephin to vancomycin. Her renal function continued to worsen and unfortunately nephrology determined that she would again need renal replacement therapy. Permacath was placed by vascular surgery on 03/08 and she was started on hemodialysis. She did well and she completed treatment for her UTI. She was determined stable for discharge. Follow-up: Dr. Clark at hemodialysis, next on 03/15, check blood sugar 4 times daily, Patient seen and examined at bedside. She is doing well, no chest pain, shortness of breath, no nasuea, no vomiting. Vital signs reviewed and stable. General: nontoxic, no distress, appears at stated age Cardiovascular: S1S2 reg, no murmur, positive posterior tibial pulse bilateral, Lungs: Decreased bs bilateral, no rhonchi, no rales , no accessory muscle use Ext: no gross muscle atrophy, no edema b/l lower extremities, no contractures Neuro: CN II-XI grossly intact, no focal neuro deficits Psych: Alert, oriented, appropriate affect A total of 32 minutes of time were spent preparing this complex discharge summary. Patient was discharged on 03/11/23. This dictation was prepared using [employer] voice recognition software. Though every attempt is made to correct errors during dictation some may still exist. Patient Condition at Discharge: Fair Plan - Discharge Summary Discharge Rx Participant: Yes New Discharge Prescriptions: New cloNIDine HCL [Catapres] 0.1 mg PO BID tab Torsemide [Demadex] 10 mg PO DAILY #30 tablet Insulin Detemir (Levemir) [Levemir] 5 unit SQ HS each Tacrolimus [Prograf] 2 mg PO BID cap INSULIN ASPART (NovoLOG) [NovoLOG (formulary)] 0 unit SQ ACHS each Continue amLODIPine [Norvasc] 10 mg PO DAILY Sodium Bicarbonate Tab 1,300 mg PO TID Atorvastatin Calcium [Lipitor] 10 mg PO HS predniSONE 5 mg PO DAILY Mycophenolate Sodium [Mycophenolic Acid] 360 mg PO BID carvediloL [Coreg] 25 mg PO BID Folic Acid 1 mg PO DAILY 30 Days #30 tab Ergocalciferol [Vitamin D2 (1250 Mcg = 82963 Iu)] 1,250 mcg PO Q7D Famotidine 40 mg PO DAILY Thiamine [Vitamin B-1] 250 mg PO BID Diphenox-Atrop 2.5-0.025 mg [Lomotil] 1 tab PO TID PRN PRN Reason: Diarrhea Docusate [Colace] 100 mg PO DAILY PRN PRN Reason: Constipation Albuterol Inhaler [Ventolin Hfa Inhaler] 2 puff INHALATION RT-DAILY Aspirin EC [Ecotrin Low Dose] 81 mg PO DAILY Discontinued Ketoconazole 2% Cream [Nizoral 2%] 1 applic TOPICAL DAILY PRN PRN Reason: skin on nails/feet traMADol HCL 50 - 100 mg PO Q6H PRN PRN Reason: Pain cloNIDine HCL [Catapres] 0.2 mg PO TID #90 tab Furosemide [Lasix] 40 mg PO DAILY #30 tab Sodium Zirconium Cyclosilicate [Lokelma] 10 gm PO BID #60 packet Metaxalone [Skelaxin] 800 mg PO BID PRN PRN Reason: Muscle Pain Sulfamethox-Tmp 800-160Mg [Bactrim DS 800-160 mg] 1 tab PO BID Gentamicin 0.1% Cream 1 applic TOPICAL DAILY Tacrolimus [Prograf] 3 mg PO BID #180 cap Losartan Potassium [Cozaar] 100 mg PO DAILY Discharge Medication List Atorvastatin Calcium [Lipitor] 10 mg PO HS 08/11/16 [History] Sodium Bicarbonate Tab 1,300 mg PO TID 08/11/16 [History] amLODIPine [Norvasc] 10 mg PO DAILY 08/11/16 [History] predniSONE 5 mg PO DAILY 08/25/17 [History] Mycophenolate Sodium [Mycophenolic Acid] 360 mg PO BID 04/25/20 [History] Ergocalciferol [Vitamin D2 (1250 Mcg = 59718 Iu)] 1,250 mcg PO Q7D 10/27/21 [History] Famotidine 40 mg PO DAILY 10/27/21 [History] carvediloL [Coreg] 25 mg PO BID 10/27/21 [History] Albuterol Inhaler [Ventolin Hfa Inhaler] 2 puff INHALATION RT-DAILY 11/24/22 [History] Aspirin EC [Ecotrin Low Dose] 81 mg PO DAILY 11/24/22 [History] Diphenox-Atrop 2.5-0.025 mg [Lomotil] 1 tab PO TID PRN 11/24/22 [History] Docusate [Colace] 100 mg PO DAILY PRN 11/24/22 [History] Thiamine [Vitamin B-1] 250 mg PO BID 11/24/22 [History] Folic Acid 1 mg PO DAILY 30 Days #30 tab 01/14/23 [Rx] INSULIN ASPART (NovoLOG) [NovoLOG (formulary)] 0 unit SQ ACHS each 03/11/23 [Rx] Insulin Detemir (Levemir) [Levemir] 5 unit SQ HS each 03/11/23 [Rx] Tacrolimus [Prograf] 2 mg PO BID cap 03/11/23 [Rx] Torsemide [Demadex] 10 mg PO DAILY #30 tablet 03/11/23 [Rx] cloNIDine HCL [Catapres] 0.1 mg PO BID tab 03/11/23 [Rx] Follow up Appointment(s)/Referral(s): [facility] [NON-STAFF] - As Needed (- at 0710) Raza Purcell MD [Primary Care Provider] - 1-2 days Activity/Diet/Wound Care/Special Instructions: Activity: As tolerated Fall precautions Diet: Renal dialysis diet and carb consistent Wounds: Therahoney and Optimfoarm to left augustine Left heel unstagable ulcer with eschar- keep dry and elevated Special Instructions: Check blood sugar three times daily Follow blood pressure Discharge Disposition: TRANSFER TO SNF/ECF
[2023-03-11 11:59] LABS: Glucose,Whole Blood 109 mg/dL (70-110)
--- NOTE | 2023-03-11 12:23 | P.PN ---
Subjective Patient is seen in follow-up for renal transplant management and chronic kidney disease. Denies chest pain or shortness of breath. Oral intake fair. Blood pressure stable. Started on HD 03/08/23. Tolerating dialysis well. Possible discharge to rehab today. Vital signs are stable. General: No acute distress. HEENT: Head exam is unremarkable. LUNGS: No audible rhonchi or wheezes. HEART: Rate and Rhythm are regular. ABDOMEN: Nontender. EXTREMITITES: No edema. Objective - Vital Signs Vital signs: Vital Signs Temp 99.1 F 03/11/23 08:11 Pulse 69 03/11/23 08:11 Resp 18 03/11/23 08:11 BP 123/62 03/11/23 08:11 Pulse Ox 98 03/11/23 08:11 FiO2 Intake & Output 03/10/23 03/11/23 03/11/23 18:59 06:59 18:59 Intake Total 300 Balance 300 Weight 60.237 kg Intake: Oral 300 Other: Voiding Method Bedside Commode Bedside Commode Bedside Commode # Voids 1 1 # Bowel Movements 1 - Labs CBC & Chem 7: 03/02/23 11:30 03/10/23 05:51 Labs: Abnormal Lab Results - Last 24 Hours (Table) 03/10/23 03/10/23 03/11/23 Range/Units 17:14 20:21 07:13 POC Glucose (mg/dL) 265 H 345 H 118 H (70-110) mg/dL Assessment and Plan Plan: Assessment: 1. Acute kidney injury secondary to ATN with concern for progression of underlying chronic kidney disease. Creatinine greater than 6 this admission. Started on hemodialysis 03/08/2023. 2. 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 Baseline creatinine 3-3.5. 3. Chronic systolic CHF with ejection fraction of 40% with mild to moderate nick ral regurgitation and moderate tricuspid regurgitation. 4. MRSA UTI. On antibiotics. 5. Hyponatremia secondary to acute kidney injury/CKD. 6. Hypertension with chronic kidney disease. Stable. 7. Status post donor renal transplant in 2016. 8. Metabolic acidosis secondary to chronic kidney disease maintained on oral bicarbonate. Improved postdialysis. 9. Diabetes mellitus. Plan: Currently seen while undergoing hemodialysis. She will be maintained on Tuesday schedule outpatient. Encouraged oral intake. Resume torsemide. Prograf level 13.8 dated 03/04/2023. Dose decreased. Repeat Prograf level pending. Hold clonidine for systolic blood pressure less than 120. Decrease dose to 0.1 mg. fishing manager to set up outpatient dialysis. Phosphorus level 3.9 dated 03/08/2023.
[2023-03-11] MEDS: ENOXAPARIN 30 MG/0.3 ML SYRINGE SQ SCH (12:33)
[2023-03-11] MEDS: cloNIDine HCL 0.1 MG TAB PO SCH (12:33)
[2023-03-11] MEDS: FAMOTIDINE 20 MG TAB PO SCH (12:33)
[2023-03-11] MEDS: ASPIRIN 81 MG PO SCH (12:33)
[2023-03-11] MEDS: carvediloL 12.5 MG TAB PO SCH (12:34)
[2023-03-11] MEDS: MYCOPHENOLATE SODIUM DR 180 MG TABLET.DR PO SCH (12:34)
[2023-03-11] MEDS: SODIUM BICARBONATE TAB 650 MG TAB PO SCH (12:34)
[2023-03-11] MEDS: predniSONE 5 MG TAB PO SCH (12:34)
[2023-03-11] MEDS: FOLIC ACID 1 MG TAB PO SCH (12:34)
[2023-03-11] MEDS: amLODIPine 10 MG TAB PO SCH (12:34)
[2023-03-11] MEDS: TACROLIMUS 1 MG CAP PO SCH (12:35)
[2023-03-11 13:29] VITALS: BP 119/73; PULSE 76; RESP 16; TEMP 98.2
[2023-03-11] MEDS: ACETAMINOPHEN TAB 325 MG TAB PO PRN (14:05)
[2023-03-11 14:08] LABS: Magnesium 1.6 mg/dL (1.5-2.4)
[2023-03-11 14:24] LABS: BUN/Creat Ratio 9.89 Ratio (12.00-20.00); Blood Urea Nitrogen 37.6 mg/dL (9.0-27.0); Calcium 8.4 mg/dL (8.7-10.3); Carbon Dioxide 25.9 mmol/L (21.6-31.8); Chloride 96 mmol/L (96-109); Glucose 110 mg/dL (70-110); Potassium 4.4 mmol/L (3.5-5.5); Sodium 131 mmol/L (135-145)
--- NOTE | 2023-03-14 13:19 | CDI ---
Documentation Clarification Form Date: 03/14/2023 12:52:37 PM From: Carmen Polanco Admit Date: 03/02/2023 02:22:00 PM Patient Name: Mary Barrientos Visit Number: [id number] Discharge Date: 03/11/2023 03:40:00 PM ATTENTION: The Clinical Documentation Specialists (CDI) and [facility] Coding Staff appreciate your assistance in clarifying documentation. Please respond to the clarification below the line at the bottom and electronically sign. The CDI & [facility] Coding staff will review the response and follow-up if needed. Please note: Queries are made part of the Legal Health Record. If you have any questions, please contact the author of this message via ITS. Dr. Apryl Tovar Per Renal consult and PN 03/04, "Acute kidney injury on top of CKD most likely ATN. Etiology underlying infection/sepsis as well as volume depletion." Based on this information and the findings below, is there an additional diagnosis that is clinically appropriate for this patient? History/Risk Factors: Patient with UTI, ATN, renal transplant ESRD, metabolic encephalopathy Clinical Indicators: WBC 8.0 Lactic acid: Blood cultures: negative Urine - MRSA Vitals signs: 98.2 F, 78 bpm, 18, 121/71, 99 RA Treatment: IV antibiotics ID Consult: Renal consult documents sepsis Antibiotics: Sulfa, Rocephin and Vancomycin Is there an additional diagnosis that is clinically appropriate for this patient? [ ] Sepsis, present on admission [ ] Sepsis, developed during stay, not present on admission [ x ] Sepsis ruled out [ ] Severe Sepsis with organ failure [ ] Septic Shock [ ] SIRS, without underlying infectious process [ ] Other, please specify [ ] Unable to determine SIRS Criteria: 2 or more of the following may indicate SIRS Temperature < 96.8F (36C) or > 101.0F (38.3C) Heart Rate > 90 bpm Respiratory Rate > 20 breaths/min or PaCO2 < 32 mmHg White Blood Cell Count > 12,000 or < 4,000 cells/mm3 or > 10% bands MTDD
== END 2023-03-11 15:40 | DRG 689 ==
LOC: EC 10:39 → 5NMEDONC 14:22
PROVIDERS: ADMIT Family Medicine; ATTEND Family Medicine
PROC: 02HV33Z Insertion of Infusion Device into Superior Vena Cava, Percutaneous Approach (ICD-10-PCS; principal; 2023-03-08 12:55)
PROC: 5A1D70Z Performance of Urinary Filtration, Intermittent, Less than 6 Hours Per Day (ICD-10-PCS; 2023-03-08 12:55)
DX: N39.0 Urinary tract infection, site not specified (principal); G93.41 Metabolic encephalopathy; N17.0 Acute kidney failure with tubular necrosis; N18.6 End stage renal disease; E87.1 Hypo-osmolality and hyponatremia; T86.11 Kidney transplant rejection; I13.2 Hypertensive heart and chronic kidney disease with heart failure and with stage 5 chronic kidney disease, or end stage renal disease; I50.22 Chronic systolic (congestive) heart failure; E11.22 Type 2 diabetes mellitus with diabetic chronic kidney disease; E11.40 Type 2 diabetes mellitus with diabetic neuropathy, unspecified; E11.65 Type 2 diabetes mellitus with hyperglycemia; E86.0 Dehydration; R62.7 Adult failure to thrive; Z68.23 Body mass index [BMI] 23.0-23.9, adult; F41.9 Anxiety disorder, unspecified; I08.1 Rheumatic disorders of both mitral and tricuspid valves; Z86.69 Personal history of other diseases of the nervous system and sense organs; D63.1 Anemia in chronic kidney disease; Z99.2 Dependence on renal dialysis; R45.1 Restlessness and agitation; I65.23 Occlusion and stenosis of bilateral carotid arteries; E83.9 Disorder of mineral metabolism, unspecified; Y83.0 Surgical operation with transplant of whole organ as the cause of abnormal reaction of the patient, or of later complication, without mention of misadventure at the time of the procedure; B95.62 Methicillin resistant Staphylococcus aureus infection as the cause of diseases classified elsewhere; E53.8 Deficiency of other specified B group vitamins; E78.5 Hyperlipidemia, unspecified; Z53.20 Procedure and treatment not carried out because of patient's decision for unspecified reasons; Z86.73 Personal history of transient ischemic attack (TIA), and cerebral infarction without residual deficits; R79.89 Other specified abnormal findings of blood chemistry; Z79.624 Long term (current) use of inhibitors of nucleotide synthesis; Z79.4 Long term (current) use of insulin; Z79.82 Long term (current) use of aspirin; Z79.899 Other long term (current) drug therapy; Z86.16 Personal history of COVID-19; Z86.010 Personal history of colon polyps; Z87.440 Personal history of urinary (tract) infections; Z91.158 Patient's noncompliance with renal dialysis for other reason; Z88.0 Allergy status to penicillin; Z88.8 Allergy status to other drugs, medicaments and biological substances; Z88.1 Allergy status to other antibiotic agents; Z91.041 Radiographic dye allergy status; Z71.3 Dietary counseling and surveillance; K58.9 Irritable bowel syndrome, unspecified; G43.909 Migraine, unspecified, not intractable, without status migrainosus; G89.29 Other chronic pain
CPT/HCPCS: 36415; 36558; 70450; 70551; 71045; 71046; 76937; 77001; 80048; 80053; 80061; 80197; 81001; 82140; 82607; 82746; 83036; 83735; 84100; 84484; 85025; 85610; 85730; 86706; 87040; 87077; 87086; 87186; 87340; 90935; 93005; 93880; 95816; 96361; 96374; 96375; 96376; 99285

== ENCOUNTER 2023-03-23 02:52 | Emergency (ER) | payer MEDICARE ==
[2023-03-23 03:05] VITALS: BP 138/93; PULSE 85; RESP 18; TEMP 98.5
--- NOTE | 2023-03-23 03:06 | ED ---
General Adult HPI - General Chief complaint: Altered Mental Status Time Seen by Provider: 03/23/23 03:01 Source: patient Mode of arrival: EMS Limitations: no limitations - History of Present Illness Initial comments: Dictation was produced using [employer] dictation software. please excuse any grammatical, word or spelling errors. Chief Complaint: 72-year-old female presents emergency department from half-way for evaluation of altered mental status, nausea and diarrhea History of Present Illness: Patient 72-year-old female she presents via EMS from half-way. According to the transfer documentation patient was sent to the emergency department for evaluation of nausea, diarrhea and altered mentation. EMS also reports that patient was being evaluated for acute onset periorbital edema. Patient denies any complaints at this time. States that she did so nauseous briefly earlier in the day. She reports that she has no symptoms whatsoever currently. Denies any pain complaints. Patient has multiple comorbidities. The ROS documented in this emergency department record has been reviewed and confirmed by me. Those systems with pertinent positive or negative responses have been documented in the HPI. All other systems are other negative and/or noncontributory. - Related Data Home Medications Medication Instructions Recorded Confirmed Atorvastatin Calcium [Lipitor] 10 mg PO HS@2100 08/11/16 03/21/23 Sodium Bicarbonate Tab 1,300 mg PO TID@0800,1200,1700 08/11/16 03/21/23 amLODIPine [Norvasc] 10 mg PO DAILY@0800 08/11/16 03/21/23 predniSONE 5 mg PO DAILY@0800 08/25/17 03/21/23 Mycophenolate Sodium [Mycophenolic 360 mg PO BID@0800,1700 04/25/20 03/21/23 Acid] Ergocalciferol [Vitamin D2 (1250 1,250 mcg PO FR@0800 10/27/21 03/21/23 Mcg = 46970 Iu)] Famotidine 40 mg PO DAILY@0900 10/27/21 03/21/23 carvediloL [Coreg] 25 mg PO BID@0800,1700 10/27/21 03/21/23 Albuterol Inhaler [Ventolin Hfa 2 puff INHALATION RT-QID PRN 11/24/22 03/21/23 Inhaler] Aspirin EC [Ecotrin Low Dose] 81 mg PO DAILY@0800 11/24/22 03/21/23 Docusate [Colace] 100 mg PO DAILY PRN 11/24/22 03/21/23 Thiamine [Vitamin B-1] 250 mg PO BID@0800,1700 11/24/22 03/21/23 Acetaminophen Tab [Tylenol] 650 mg PO Q4H PRN 03/21/23 03/21/23 Folic Acid 1 mg PO DAILY@0800 03/21/23 03/21/23 HYDROcodone/APAP 5-325MG [Kell 1 tab PO Q6H PRN 03/21/23 03/21/23 5-325] INSULIN ASPART (NovoLOG) [NovoLOG See Protocol SQ 03/21/23 03/21/23 (formulary)] ACHS@07,11,1630,2130 Eduardo Packet 1 packet PO DAILY@1700 03/21/23 03/21/23 Eduardo Packet 1 packet PO SUMOWEFR@0800 03/21/23 03/21/23 Eduardo Packet 1 packet PO TUTHSA@1200 03/21/23 03/21/23 Magic Cup 1 dose PO BID@1200,1700 03/21/23 03/21/23 Magnesium Hydroxide [Milk of 7,200 mg PO DAILY PRN 03/21/23 03/21/23 Magnesia Concentrate] Na Phos,M-B/Na Phos,Di-Ba [Fleet 133 ml RECTAL DAILY PRN 03/21/23 03/21/23 Adult] Tacrolimus [Prograf] 2 mg PO BID@0800,1700 03/21/23 03/21/23 Torsemide [Demadex] 10 mg PO DAILY@0800 03/21/23 03/21/23 bisacodyL [Dulcolax] 10 mg RECTAL DAILY PRN 03/21/23 03/21/23 cloNIDine HCL [Catapres] 0.1 mg PO BID@0800,1700 03/21/23 03/21/23 Previous Rx's Medication Instructions Recorded Diphenox-Atrop 2.5-0.025 mg 1 tab PO TID PRN #3 tab 03/11/23 [Lomotil] Allergies Allergy/AdvReac Type Severity Reaction Status Date / Time hydralazine [From Apresoline] Allergy Rash/Hives Verified 03/23/23 03:09 Iodinated Contrast Media Allergy Unknown Verified 03/23/23 03:09 [Iodinated Contrast- Oral and IV Dye] meperidine [From Demerol] Allergy Anaphylaxis Verified 03/23/23 03:09 Penicillins Allergy Rash/Hives Verified 03/23/23 03:09 Review of Systems ROS Statement: Those systems with pertinent positive or pertinent negative responses have been documented in the HPI. ROS Other: All systems not noted in ROS Statement are negative. Past Medical History Past Medical History: No Reported History, Asthma, Diabetes Mellitus, Dialysis, Eye Disorder, Hyperlipidemia, Hypertension, Renal Disease, Skin Disorder Additional Past Medical History / Comment(s): history of covid, IDDM type II, neuropathy bilateral legs/feet, ESRD with past peritoneal/hemodialysis then in 2016 had renal transplant, UTI with sepsis, IBS, benign colon polyps, chronic low back pain, migraines, R eye retinal bleed with injections, L eye detached retina with surgery, anemia. 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 History of Any Multi-Drug Resistant Organisms: ESBL, MRSA Date of last positivie culture/infection: 2011 approx ESBL- peritoneal dialysis cath(PREVIOUSLY CHARTED) MDRO Source:: ESBL-peritoneal dialysis cath Past Surgical History: Cholecystectomy, Hysterectomy, Orthopedic Surgery Additional Past Surgical History / Comment(s): Peritoneal dialysis cath since removed, hemodialysis cath since removed, 2016 renal transplant, EGD, colonoscop ies/benign polypectomy, bilateral eye cataract removals, L eye detached retinal surgery, L knee arthroscopy Past Anesthesia/Blood Transfusion Reactions: No Reported Reaction Additional Past Anesthesia/Blood Transfusion Reaction / Comment(s): has had a hard time coming out of anesthesia Past Psychological History: Anxiety Smoking Status: Former smoker Past Alcohol Use History: None Reported Past Drug Use History: None Reported - Past Family History Mother History Unknown: Yes Additional Family Medical History / Comment(s): Mother of poisoning when pt was 11 yrs old. Father Family Medical History: Vascular Disorder Additional Family Medical History / Comment(s): brain aneurysm General Exam - General Exam Comments Initial Comments: PHYSICAL EXAM: General Impression: Alert and oriented x3, not in acute distress HEENT: Normocephalic atraumatic, extra-ocular movements intact, pupils equal and reactive to light bilaterally, mucous membranes moist. Cardiovascular: Heart regular rate and rhythm Chest: Able to complete full sentences, no retractions, no tachypnea Abdomen: abdomen soft, non-tender, non-distended, no organomegaly Musculoskeletal: Pulses present and equal in all extremities, no peripheral edema Motor: no focal deficits noted Neurological: CN II-XII grossly intact, no focal motor or sensory deficits noted Skin: Intact with no visualized rashes Psych: Normal affect and mood Limitations: no limitations Course Vital Signs 03/23/23 02:56 Temperature 98.5 F Pulse Rate 85 Respiratory 18 Rate Blood Pressure 138/93 O2 Sat by Pulse 96 Oximetry EKG Findings - EKG Comments: EKG Findings:: My EKG interpretation: Ventricular rate 80, sinus rhythm,. 187, QRS 11, QTc 432. No ND prolongation, no QTC prolongation, no ST or T-wave changes noted. . Overall, this EKG is unremarkable Medical Decision Making - Medical Decision Making Was pt. sent in by a medical professional or institution (, PA, DISPATCHER REFINERY, urgent care, hospital, or half-way...) When possible be specific @ -No Did you speak to anyone other than the patient for history (EMS, parent, family, police, friend...)? What history was obtained from this source @ -No Did you review nursing and triage notes (agree or disagree)? Why? @ -I reviewed and agree with nursing and triage notes Were old charts reviewed (outside hosp., previous admission, EMS record, old EKG, old radiological studies, urgent care reports/EKG's, half-way records)? Report findings @ -No old charts were reviewed Differential Diagnosis (chest pain, altered mental status, abdominal pain women, abdominal pain men, vaginal bleeding, musculoskeletal, weakness, fever, dyspnea, syncope, headache, dizziness, GI bleed, back pain, seizure, CVA, palpatations, mental health)? @ -Differential Altered Mental Status: Hypoglycemia, DKA, hypercapnia, ETOH, overdose, CO poisoning, trauma, myxedema coma, HTN encephalopathy, infection, encephalitis, psychosis, intercranial hemorrhage, hepatic encephalopathy, meningitis, CVA, this is not meant to be an all-inclusive list EKG interpreted by me (3pts min.). @ -None done X-rays interpreted by me (1pt min.). @ -None done CT interpreted by me (1pt min.). @ -None done U/S interpreted by me (1pt. min.). @ -None done What testing was considered but not performed or refused? (CT, X-rays, U/S, labs)? Why? @ -None What meds were considered but not given or refused? Why? @ -None Did you discuss the management of the patient with other professionals (professionals i.e. , PA, DISPATCHER REFINERY, lab, RT, psych nurse, social services counselor, senior regulatory affairs specialist, teacher, air intelligence officer, bottle caser)? Give summary @ -No Was smoking cessation discussed for >3mins.? @ -No Was critical care preformed (if so, how long)? @ -No Were there social determinants of health that impacted care today? How? (H omelessness, low income, unemployed, alcoholism, drug addiction, transportation, low edu. Level, literacy, decrease access to med. care, half-way, rehab)? @ -No Was there de-escalation of care discussed even if they declined (Discuss DNR or withdrawal of care, Hospice)? DNR status @ -No What co-morbidities impacted this encounter? (DM, HTN, Smoking, COPD, CAD, Cancer, CVA, ARF, Chemo, Hep., AIDS, mental health diagnosis, sleep apnea, morbid obesity)? @ -None Was patient admitted / discharged? Hospital course, mention meds given and route, prescriptions, significant lab abnormalities, going to OR and other pertinent info. @ -72-year-old well-appearing female presents to the ER for evaluation of nausea, vomiting, periorbital swelling and altered mental status. Vital signs are stable. Patient is well-appearing she has no complaints. She states that her symptoms have resolved. Laboratory evaluation obtained. CBC, metabolic panel at baseline. Patient observed in the emergency department for 1 hour 20 minutes. Reevaluated at bedside at 4:15 AM. Patient is agreeable for discharge back to half-way. Undiagnosed new problem with uncertain prognosis? @ -No Drug Therapy requiring intensive monitoring for toxicity (Heparin, Nitro, Insulin, Cardizem)? @ -No Were any procedures done? @ -No Diagnosis/symptom? Acute, or Chronic, or Acute on Chronic? Uncomplicated (without systemic symptoms) or Complicated (systemic symptoms)? @ -Episode of nausea, vomiting also mental status Side effects of treatment? @ -No Exacerbation, Progression, or Severe Exacerbation? @ -No Poses a threat to life or bodily function? How? (Chest pain, USA, OR, pneumonia, PE, COPD, DKA, ARF, appy, cholecystitis, CVA, Diverticulitis, Homicidal, Suicidal, threat to staff... and all critical care pts) @ -No - Lab Data Result diagrams: 03/23/23 03:33 03/23/23 03:33 Lab Results 03/23/23 03/23/23 Range/Units 03:33 03:33 WBC 7.9 (3.8-10.6) k/uL RBC 2.78 L (3.80-5.40) m/uL Hgb 7.8 L (11.4-16.0) gm/dL Hct 25.9 L (34.0-46.0) % MCV 93.2 (80.0-100.0) fL MCH 28.2 (25.0-35.0) pg MCHC 30.3 L (31.0-37.0) g/dL RDW 16.2 H (11.5-15.5) % Plt Count 146 L (150-450) k/uL MPV 8.7 Neutrophils % 68 % Lymphocytes % 21 % Monocytes % 6 % Eosinophils % 5 % Basophils % 0 % Neutrophils # 5.4 (1.3-7.7) k/uL Lymphocytes # 1.6 (1.0-4.8) k/uL Monocytes # 0.5 (0-1.0) k/uL Eosinophils # 0.4 (0-0.7) k/uL Basophils # 0.0 (0-0.2) k/uL Hypochromasia Marked Anisocytosis Slight Sodium 135 L (137-145) mmol/L Potassium 3.6 (3.5-5.1) mmol/L Chloride 101 (98-107) mmol/L Carbon Dioxide 29 (22-30) mmol/L Anion Gap 5 mmol/L BUN 15 (7-17) mg/dL Creatinine 1.13 H (0.52-1.04) mg/dL Est GFR (CKD-EPI)AfAm 56 (>60 ml/min/1.73 sqM) Est GFR (CKD-EPI)NonAf 49 (>60 ml/min/1.73 sqM) Glucose 133 H (74-99) mg/dL Calcium 9.1 (8.4-10.2) mg/dL Total Bilirubin 0.6 (0.2-1.3) mg/dL AST 20 (14-36) U/L ALT 13 (4-34) U/L Alkaline Phosphatase 68 (38-126) U/L Total Protein 5.4 L (6.3-8.2) g/dL Albumin 2.8 L (3.5-5.0) g/dL Disposition Clinical Impression: Nausea & vomiting Disposition: HOME SELF-CARE Condition: Good Instructions (If sedation given, give patient instructions): Acute Nausea and Vomiting (ED) Is patient prescribed a controlled substance at d/c from ED?: No Referrals: None,Stated [REFERRING] - 1-2 days Time of Disposition: 04:13
[2023-03-23] MEDS ORDERED: HYDROcodone/APAP 5-325MG 1 EACH TAB PO STA (03:31)
[2023-03-23 03:48] LABS: ALT 13 U/L (4-34); AST 20 U/L (14-36); African American GFR (CKD) 56 (>60 ml/min/1.73 sqM); Albumin 2.8 g/dL (3.5-5.0); Alkaline Phosphatase 68 U/L (38-126); Anion Gap 5 mmol/L; Blood Urea Nitrogen 15 mg/dL (7-17); Calcium 9.1 mg/dL (8.4-10.2); Carbon Dioxide 29 mmol/L (22-30); Chloride 101 mmol/L (98-107); Glucose 133 mg/dL (74-99); Non-African American GFR(CKD) 49 (>60 ml/min/1.73 sqM); Potassium 3.6 mmol/L (3.5-5.1); Sodium 135 mmol/L (137-145); Total Bilirubin 0.6 mg/dL (0.2-1.3); Total Protein 5.4 g/dL (6.3-8.2)
[2023-03-23 03:57] LABS: Anisocytosis Slight; Basophils % (A) 0 %; Eosinophils # (A) 0.4 k/uL (0-0.7); Eosinophils % (A) 5 %; HCT 25.9 % (34.0-46.0); HGB 7.8 gm/dL (11.4-16.0); Hypochromasia Marked; Lymphocytes # (A) 1.6 k/uL (1.0-4.8); Lymphocytes % (A) 21 %; MCH 28.2 pg (25.0-35.0); MCHC 30.3 g/dL (31.0-37.0); MCV 93.2 fL (80.0-100.0); Mean Platelet Volume 8.7; Monocytes # (A) 0.5 k/uL (0-1.0); Monocytes % (A) 6 %; Neutrophils # (A) 5.4 k/uL (1.3-7.7); Neutrophils % (A) 68 %; Platelet Count 146 k/uL (150-450); RBC 2.78 m/uL (3.80-5.40); RDW 16.2 % (11.5-15.5); WBC 7.9 k/uL (3.8-10.6)
== END 2023-03-23 07:00 | disposition home or self-care (01) ==
LOC: EC 02:52
DX: R11.2 Nausea with vomiting, unspecified (principal); J45.909 Unspecified asthma, uncomplicated; E11.9 Type 2 diabetes mellitus without complications; E78.5 Hyperlipidemia, unspecified; I10 Essential (primary) hypertension; F41.9 Anxiety disorder, unspecified; Z79.899 Other long term (current) drug therapy; Z87.891 Personal history of nicotine dependence; Z79.82 Long term (current) use of aspirin; Z88.0 Allergy status to penicillin; Z88.5 Allergy status to narcotic agent; Z86.16 Personal history of COVID-19; Z88.8 Allergy status to other drugs, medicaments and biological substances; Z90.49 Acquired absence of other specified parts of digestive tract; Z99.2 Dependence on renal dialysis
CPT/HCPCS: 36415; 80053; 85025; 93005; 99285

== ENCOUNTER 2023-04-03 22:19 | Inpatient (IN) | payer MEDICARE ==
[2023-04-03] MEDS ORDERED: SODIUM CHLORIDE 0.9% 1,000 ML IV STA (22:41)
--- NOTE | 2023-04-03 23:04 | ED ---
Weakness HPI - General Chief complaint: Weakness Stated complaint: Fall Time Seen by Provider: 04/03/23 22:41 Source: patient, EMS, RN notes reviewed, old records reviewed Mode of arrival: EMS Limitations: physical limitation - History of Present Illness Initial comments: This is a 72 year old female, patient presents for BL leg pain and edema, patients family called EMS to get the patient as she is unable to be taken care of at home. This is a patient who per EMS was unable to get off the floor or support her own weight. Patient recently signed out against medical advice from [facility] as she didnt want to be there anymore but after one day she is presenting back to the ER as she is an unlivable situation per EMS, her only complaint here is leg pain. family called EMS but there is no family at bedside and history is per EMS MD Complaint: generalized weakness, lack of energy, difficulty walking -: days(s) Location: generalized Severity: moderate Severity scale (1-10): 4 Quality: numbness Consistency: constant Improves with: none Context: history of similar Associated Symptoms: denies other symptoms - Related Data Home Medications Medication Instructions Recorded Confirmed Atorvastatin Calcium [Lipitor] 10 mg PO HS@2100 08/11/16 04/04/23 Sodium Bicarbonate Tab 1,300 mg PO TID@0800,1200,1700 08/11/16 04/04/23 amLODIPine [Norvasc] 10 mg PO DAILY@0800 08/11/16 04/04/23 predniSONE 5 mg PO DAILY@0800 08/25/17 04/04/23 Mycophenolate Sodium [Mycophenolic 360 mg PO BID@0800,1700 04/25/20 04/04/23 Acid] Ergocalciferol [Vitamin D2 (1250 1,250 mcg PO FR@0800 10/27/21 04/04/23 Mcg = 17932 Iu)] Famotidine 40 mg PO DAILY@0900 10/27/21 04/04/23 carvediloL [Coreg] 25 mg PO BID@0800,1700 10/27/21 04/04/23 Albuterol Inhaler [Ventolin Hfa 2 puff INHALATION RT-QID PRN 11/24/22 04/04/23 Inhaler] Aspirin EC [Ecotrin Low Dose] 81 mg PO DAILY@0800 11/24/22 04/04/23 Docusate [Colace] 100 mg PO DAILY PRN 11/24/22 04/04/23 Thiamine [Vitamin B-1] 250 mg PO BID@0800,1700 11/24/22 04/04/23 Acetaminophen Tab [Tylenol] 650 mg PO Q4H PRN 03/21/23 04/04/23 Folic Acid 1 mg PO DAILY@0800 03/21/23 04/04/23 HYDROcodone/APAP 5-325MG [[place] 1 tab PO Q6H PRN 03/21/23 04/04/23 5-325] INSULIN ASPART (NovoLOG) [NovoLOG See Protocol SQ 03/21/23 04/04/23 (formulary)] ACHS@07,11,1630,2130 Eduardo Packet 1 packet PO DAILY@1700 03/21/23 04/04/23 Eduardo Packet 1 packet PO SUMOWEFR@0800 03/21/23 04/04/23 Eduardo Packet 1 packet PO TUTHSA@1200 03/21/23 04/04/23 Magic Cup 1 dose PO BID@1200,1700 03/21/23 04/04/23 Magnesium Hydroxide [Milk of 7,200 mg PO DAILY PRN 03/21/23 04/04/23 Magnesia Concentrate] Na Phos,M-B/Na Phos,Di-Ba [Fleet 133 ml RECTAL DAILY PRN 03/21/23 04/04/23 Adult] Tacrolimus [Prograf] 2 mg PO BID@0800,1700 03/21/23 04/04/23 Torsemide [Demadex] 10 mg PO DAILY@0800 03/21/23 04/04/23 bisacodyL [Dulcolax] 10 mg RECTAL DAILY PRN 03/21/23 04/04/23 cloNIDine HCL [Catapres] 0.1 mg PO BID@0800,1700 03/21/23 04/04/23 Collagenase [Santyl Ointment] 1 applic TOPICAL DAILY 04/04/23 04/04/23 Maalox Plus 30 ml PO Q6H PRN 04/04/23 04/04/23 Melatonin 1 mg PO HS 04/04/23 04/04/23 Previous Rx's Medication Instructions Recorded Diphenox-Atrop 2.5-0.025 mg 1 tab PO TID PRN #3 tab 03/11/23 [Lomotil] Allergies Allergy/AdvReac Type Severity Reaction Status Date / Time hydralazine [From Apresoline] Allergy Rash/Hives Verified 04/04/23 13:10 Iodinated Contrast Media Allergy Unknown Verified 04/04/23 13:10 [Iodinated Contrast- Oral and IV Dye] meperidine [From Demerol] Allergy Anaphylaxis Verified 04/04/23 13:10 Penicillins Allergy Rash/Hives Verified 04/04/23 13:10 Review of Systems ROS Statement: Those systems with pertinent positive or pertinent negative responses have been documented in the HPI. ROS Other: All systems not noted in ROS Statement are negative. Past Medical History Past Medical History: No Reported History, Asthma, Diabetes Mellitus, Dialysis, Eye Disorder, Hyperlipidemia, Hypertension, Renal Disease, Skin Disorder Additional Past Medical History / Comment(s): history of covid, IDDM type II, neuropathy bilateral legs/feet, ESRD with past peritoneal/hemodialysis then in 2016 had renal transplant, UTI with sepsis, IBS, benign colon polyps, chronic low back pain, migraines, R eye retinal bleed with injections, L eye detached retina with surgery, anemia. 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 History of Any Multi-Drug Resistant Organisms: ESBL, MRSA Date of last positivie culture/infection: 2011 approx ESBL- peritoneal dialysis cath(PREVIOUSLY CHARTED) MDRO Source:: ESBL-peritoneal dialysis cath Past Surgical History: Cholecystectomy, Hysterectomy, Orthopedic Surgery Additional Past Surgical History / Comment(s): Peritoneal dialysis cath since removed, hemodialysis cath since removed, 2016 renal transplant, EGD, colonoscopies/benign polypectomy, bilateral eye cataract removals, L eye d etached retinal surgery, L knee arthroscopy Past Anesthesia/Blood Transfusion Reactions: No Reported Reaction Additional Past Anesthesia/Blood Transfusion Reaction / Comment(s): has had a hard time coming out of anesthesia Past Psychological History: Anxiety Smoking Status: Former smoker Past Alcohol Use History: None Reported Past Drug Use History: None Reported - Past Family History Mother History Unknown: Yes Additional Family Medical History / Comment(s): Mother of poisoning when pt was 11 yrs old. Father Family Medical History: Vascular Disorder Additional Family Medical History / Comment(s): brain aneurysm General Exam Limitations: altered mental status, physical limitation General appearance: alert, in no apparent distress Head exam: Present: atraumatic, normocephalic, normal inspection Eye exam: Present: normal appearance, PERRL, EOMI. Absent: scleral icterus, conjunctival injection, periorbital swelling ENT exam: Present: normal exam, mucous membranes moist Neck exam: Present: normal inspection. Absent: tenderness, meningismus, lymphadenopathy Respiratory exam: Present: normal lung sounds bilaterally. Absent: respiratory distress, wheezes, rales, rhonchi, stridor Cardiovascular Exam: Present: regular rate, normal rhythm, normal heart sounds. Absent: systolic murmur, diastolic murmur, rubs, gallop, clicks GI/Abdominal exam: Present: soft, normal bowel sounds. Absent: distended, tenderness, guarding, rebound, rigid Extremities exam: Present: normal inspection, full ROM, normal capillary refill. Absent: tenderness, pedal edema, joint swelling, calf tenderness Back exam: Present: normal inspection Neurological exam: Present: alert, oriented X3, CN II-XII intact Psychiatric exam: Present: normal affect, normal mood Skin exam: Present: warm, dry, intact, normal color. Absent: rash Course Vital Signs 04/03/23 04/04/23 04/04/23 22:29 00:00 01:00 Temperature 99.7 F H Pulse Rate 92 88 81 Respiratory 18 16 18 Rate Blood Pressure 147/76 146/78 131/79 O2 Sat by Pulse 100 97 98 Oximetry 04/04/23 04/04/23 04/04/23 01:10 02:00 03:00 Temperature 98.9 F Pulse Rate 88 84 87 Respiratory 20 18 Rate Blood Pressure 141/73 141/73 137/66 O2 Sat by Pulse 98 100 100 Oximetry 04/04/23 04/04/23 04/04/23 05:00 06:00 14:00 Temperature Pulse Rate 82 82 77 Respiratory 14 16 12 Rate Blood Pressure 130/67 133/65 112/57 O2 Sat by Pulse Oximetry 04/04/23 04/04/23 16:16 19:37 Temperature Pulse Rate 77 80 Respiratory 18 18 Rate Blood Pressure 114/63 116/68 O2 Sat by Pulse 99 98 Oximetry - Reevaluation(s) Reevaluation #1: 04/03/23 23:13 Medical records reviewed Reevaluation #2: patient has improved leg pain Reevaluation #3: patient is informed of results and questions and answered Reevaluation #4: 04/03/23 23:13 Was pt. sent in by a medical professional or institution ([facility] Gu[facility], FORMING FIXER, urgent care, hospital, or [facility]...) When possible be specific @ -no Did you speak to anyone other than the patient for history (EMS, parent, family, police, friend...)? What history was obtained from this source @ -no Did you review nursing and triage notes (agree or disagree)? Why? @ -agree Are old charts reviewed (outside hosp., previous admission, EMS record, old EKG, old radiological studies, urgent care reports/EKG's, [facility] records)? Report findings @ -yes Differential Diagnosis (chest pain, altered mental status, abdominal pain women, abdominal pain men, vaginal bleeding, weakness, fever, dyspnea, syncope, headach e, dizziness, GI bleed, back pain, seizure, CVA, palpatations, mental health, musculoskeletal)? @ -prior EKG interpreted by me (3pts min.). @ -yes X-rays interpreted by me (1pt min.). @ -no CT interpreted by me (1pt min.). @ -no U/S interpreted by me (1pt. min.). @ -no What testing was considered but not performed or refused? (CT, X-rays, U/S, labs)? Why? @ -none What meds were considered but not given or refused? Why? @ -none Did you discuss the management of the patient with other professionals (professionals i.e. CADY Guido, FORMING FIXER, lab, RT, psych nurse, executive secretary social welfare, golf club facer, teacher, medical officer psychiatry, piano case maker)? Give summary @ -no Was smoking cessation discussed for >3mins.? @ -no Was critical care preformed (if so, how long)? @ -no Were there social determinants of health that impacted care today? How? (Homelessness, low income, unemployed, alcoholism, drug addiction, transpo rtation, low edu. Level, literacy, decrease access to med. care, fpc, rehab)? @ -none Was there de-escalation of care discussed even if they declined (Discuss DNR or withdrawal of care, Hospice)? DNR status @ -no What co-morbidities impacted this encounter? (DM, HTN, Smoking, COPD, CAD, Cancer, CVA, ARF, Chemo, Hep., AIDS, mental health diagnosis, sleep apnea, morbid obesity)? @ -none Was patient admitted / discharged? Hospital course, mention meds given and route, prescriptions, significant lab abnormalities, going to OR and other pertinent info. @ - 72 female will be admitted for significant debility and need for inpatient placement, recently AMS from [facility] where she was placed after inpatint hospital stay, family calls EMS as they can not take care of her. Admitted Undiagnosed new problem with uncertain prognosis? @ -no Drug Therapy requiring intensive monitoring for toxicity (Heparin, Nitro, Insulin, Cardizem)? @ -no Were any procedures done? @ -no Diagnosis/symptom? @ -Debility Acute, or Chronic, or Acute on Chronic? @ -Acute Uncomplicated (without systemic symptoms) or Complicated (systemic symptoms)? @ -Complicated Side effects of treatment? @ -no Exacerbation, Progression, or Severe Exacerbation? @ -exacerbation Poses a threat to life or bodily function? How? (Chest pain, USA, MA, pneumonia, PE, COPD, DKA, ARF, appy, cholecystitis, CVA, Diverticulitis, Homicidal, Suicidal, threat to staff... and all critical care pts) @ -yes Reevaluation #5: 04/03/23 23:13 Differential Altered Mental Status: Hypoglycemia, DKA, hypercapnia, ETOH, overdose, CO poisoning, trauma, myxedema coma, HTN encephalopathy, infection, encephalitis, psychosis, intercranial hemorrhage, hepatic encephalopathy, meningitis, CVA, this is not meant to be an all-inclusive list - Consultations Consultation #1: spoke w [facility] who accepts patient for admission EKG Findings - EKG Comments: EKG Findings:: EKG is sinus 85 MS 182 QRS 91 QTC 421 - EKG Results: EKG: interpreted by ERMD Medical Decision Making - Medical Decision Making 72 female will be admitted for significant debility and need for inpatient placement, recently AMS from [facility] where she was placed after inpatint hospital stay, family calls EMS as they can not take care of her. - Lab Data Result diagrams: 04/10/23 06:23 04/09/23 07:54 - EKG Data -: EKG Interpreted by Me Disposition Clinical Impression: Altered mental status, Noncompliance with medication regimen, Failure to thrive, Weakness, Debility, Bilateral leg pain, Anemia Disposition: ADMITTED IP TO THIS HOSP Condition: Fair Is patient prescribed a controlled substance at d/c from ED?: No Time of Disposition: 23:15
[2023-04-03] MEDS ORDERED: NALOXONE 0.4 MG/ML 1 ML VIAL IV PRN (23:10)
[2023-04-04] MEDS: MORPHINE SULFATE 4 MG/ML SYRINGE IV PRN ×3 (01:21→19:39)
[2023-04-04 01:36] LABS: INR 1.2 (<1.2); Partial Thromboplastin Time 24.3 sec (22.0-30.0); Prothrombin Time 12.8 sec (10.0-12.5)
[2023-04-04 01:43] LABS: Anisocytosis Slight; Basophils % (A) 0 %; Eosinophils # (A) 0.3 k/uL (0-0.7); Eosinophils % (A) 4 %; HCT 29.7 % (34.0-46.0); HGB 8.9 gm/dL (11.4-16.0); Hypochromasia Marked; Lymphocytes # (A) 1.7 k/uL (1.0-4.8); Lymphocytes % (A) 22 %; MCH 28.4 pg (25.0-35.0); MCHC 29.9 g/dL (31.0-37.0); Macrocytosis Slight; Mean Platelet Volume 8.6; Monocytes # (A) 0.5 k/uL (0-1.0); Monocytes % (A) 6 %; Neutrophils % (A) 66 %; Platelet Count 260 k/uL (150-450); RBC 3.12 m/uL (3.80-5.40); RDW 17.7 % (11.5-15.5); WBC 7.5 k/uL (3.8-10.6)
[2023-04-04 01:54] LABS: ALT 31 U/L (4-34); AST 32 U/L (14-36); African American GFR (CKD) 31 (>60 ml/min/1.73 sqM); Albumin 3.1 g/dL (3.5-5.0); Alkaline Phosphatase 98 U/L (38-126); Anion Gap 12 mmol/L; Blood Urea Nitrogen 13 mg/dL (7-17); Calcium 9.3 mg/dL (8.4-10.2); Carbon Dioxide 21 mmol/L (22-30); Chloride 101 mmol/L (98-107); Glucose 93 mg/dL (74-99); Magnesium 1.7 mg/dL (1.6-2.3); Non-African American GFR(CKD) 26 (>60 ml/min/1.73 sqM); Phosphorus 1.7 mg/dL (2.5-4.5); Potassium 3.8 mmol/L (3.5-5.1); Sodium 134 mmol/L (137-145); Total Bilirubin 0.6 mg/dL (0.2-1.3); Total Protein 5.6 g/dL (6.3-8.2)
[2023-04-04] MEDS: SODIUM CHLORIDE 0.9% 1,000 ML IV SCH ×2 (02:34→22:45)
[2023-04-04] MEDS ORDERED: TORSEMIDE 20 MG TAB PO SCH (08:00)
[2023-04-04] MEDS ORDERED: MAGNESIUM OXIDE 400 MG TAB PO STA (08:53)
[2023-04-04] MEDS: FAMOTIDINE 20 MG TAB PO SCH (10:50)
[2023-04-04] MEDS: cloNIDine HCL 0.1 MG TAB PO SCH ×2 (10:50→19:32)
[2023-04-04] MEDS: ASPIRIN 81 MG PO SCH (10:50)
[2023-04-04] MEDS: carvediloL 12.5 MG TAB PO SCH ×2 (10:50→19:32)
[2023-04-04] MEDS: amLODIPine 10 MG TAB PO SCH (10:51)
[2023-04-04] MEDS: HYDROcodone/APAP 5-325MG 1 EACH TAB PO PRN (10:51)
[2023-04-04] MEDS: predniSONE 5 MG TAB PO SCH (10:51)
[2023-04-04] MEDS: TACROLIMUS 1 MG CAP PO SCH ×2 (10:53→21:13)
[2023-04-04 11:44] LABS: Appearance,Urine Clear (Clear); Bilirubin,Urine Negative (Negative); Blood,Urine Negative (Negative); Budding Yeast,Urine Rare /hpf; Color,Urine Yellow; Glucose,Urine (UA) Negative (Negative); Hyaline Casts,Urine 1 /lpf (0-2); Ketones,Urine Negative (Negative); Leukocyte Esterase,Urine Small (Negative); Nitrite,Urine Negative (Negative); PH, Urine 5.5 (5.0-8.0); Protein,Urine 2+ (Negative); RBC,Urine 1 /hpf (0-5); Specific Gravity,Urine 1.023 (1.001-1.035); Squamous Epithelial Cell,Urine 1 /hpf (0-4); Urobilinogen,Urine <2.0 mg/dL (<2.0); WBC,Urine 2 /hpf (0-5)
--- NOTE | 2023-04-04 11:44 | P.NPCON ---
History of Present Illness - Reason for Consult end stage renal disease - History of Present Illness Reason for consultation: End-stage renal disease History of present illness: Patient is a 72-year-old female seen in consultation for end-stage renal disease. Patient was seen and examined in the emergency room. She is maintained on hemodialysis on Tuesday schedule via permacath. 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 She was started on hemodialysis earlier this month due to progression of underlying chronic kidney disease. Hemodialysis was started 03/08/2023. Patient has history of systolic CHF ejection fraction of 40% and mild to moderate mitral regurgitation and moderate tricuspid regurgitation. During last admission she was treated for MRSA UTI. Patient was stable to discharge to [facility] and was discharged yesterday. Once she got home she felt weak and came back to the hospital. She does complain of loose bowel movement. No vomiting. No chest pain or shortness breath. No fever or chills. States she makes little urine. Vital signs are stable. General: No acute distress. HEENT: Head exam is unremarkable. LUNGS: Notable rhonchi or wheezes. HEART: Rate and Rhythm are regular. ABDOMEN: Nontender. EXTREMITITES: 1+ edema. Past Medical History Past Medical History: No Reported History, Asthma, Diabetes Mellitus, Dialysis, Eye Disorder, Hyperlipidemia, Hypertension, Renal Disease, Skin Disorder Additional Past Medical History / Comment(s): history of covid, IDDM type II, neuropathy bilateral legs/feet, ESRD with past peritoneal/hemodialysis then in 2016 had renal transplant, UTI with sepsis, IBS, benign colon polyps, chronic low back pain, migraines, R eye retinal bleed with injections, L eye detached retina with surgery, anemia. 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 History of Any Multi-Drug Resistant Organisms: ESBL, MRSA Date of last positivie culture/infection: 2011 approx ESBL- peritoneal dialysis cath(PREVIOUSLY CHARTED) MDRO Source:: ESBL-peritoneal dialysis cath Past Surgical History: Cholecystectomy, Hysterectomy, Orthopedic Surgery Additional Past Surgical History / Comment(s): Peritoneal dialysis cath since removed, hemodialysis cath since removed, 2016 renal transplant, EGD, colonoscopies/benign polypectomy, bilateral eye cataract removals, L eye detached retinal surgery, L knee arthroscopy Past Anesthesia/Blood Transfusion Reactions: No Reported Reaction Additional Past Anesthesia/Blood Transfusion Reaction / Comment(s): has had a hard time coming out of anesthesia Past Psychological History: Anxiety Smoking Status: Former smoker Past Alcohol Use History: None Reported Past Drug Use History: None Reported - Past Family History Mother History Unknown: Yes Additional Family Medical History / Comment(s): Mother of poisoning when pt was 11 yrs old. Father Family Medical History: Vascular Disorder Additional Family Medical History / Comment(s): brain aneurysm Medications and Allergies Home Medications Medication Instructions Recorded Confirmed Type Atorvastatin Calcium [Lipitor] 10 mg PO HS@2100 08/11/16 03/21/23 History Sodium Bicarbonate Tab 1,300 mg PO TID@0800,1200,1700 08/11/16 03/21/23 History amLODIPine [Norvasc] 10 mg PO DAILY@0800 08/11/16 03/21/23 History predniSONE 5 mg PO DAILY@0800 08/25/17 03/21/23 History Mycophenolate Sodium [Mycophenolic 360 mg PO BID@0800,1700 04/25/20 03/21/23 History Acid] Ergocalciferol [Vitamin D2 (1250 1,250 mcg PO FR@0800 10/27/21 03/21/23 History Mcg = 57693 Iu)] Famotidine 40 mg PO DAILY@0900 10/27/21 03/21/23 History carvediloL [Coreg] 25 mg PO BID@0800,1700 10/27/21 03/21/23 History Albuterol Inhaler [Ventolin Hfa 2 puff INHALATION RT-QID PRN 11/24/22 03/21/23 History Inhaler] Aspirin EC [Ecotrin Low Dose] 81 mg PO DAILY@0800 11/24/22 03/21/23 History Docusate [Colace] 100 mg PO DAILY PRN 11/24/22 03/21/23 History Thiamine [Vitamin B-1] 250 mg PO BID@0800,1700 11/24/22 03/21/23 History Diphenox-Atrop 2.5-0.025 mg 1 tab PO TID PRN #3 tab 03/11/23 03/21/23 Rx [Lomotil] Acetaminophen Tab [Tylenol] 650 mg PO Q4H PRN 03/21/23 03/21/23 History Folic Acid 1 mg PO DAILY@0800 03/21/23 03/21/23 History HYDROcodone/APAP 5-325MG [[place] 1 tab PO Q6H PRN 03/21/23 03/21/23 History 5-325] INSULIN ASPART (NovoLOG) [NovoLOG See Protocol SQ 03/21/23 03/21/23 History (formulary)] ACHS@07,11,1630,2130 Eduardo Packet 1 packet PO DAILY@1700 03/21/23 03/21/23 History Eduardo Packet 1 packet PO SUMOWEFR@0800 03/21/23 03/21/23 History Eduardo Packet 1 packet PO TUTHSA@1200 03/21/23 03/21/23 History Magic Cup 1 dose PO BID@1200,1700 03/21/23 03/21/23 History Magnesium Hydroxide [Milk of 7,200 mg PO DAILY PRN 03/21/23 03/21/23 History Magnesia Concentrate] Na Phos,M-B/Na Phos,Di-Ba [Fleet 133 ml RECTAL DAILY PRN 03/21/23 03/21/23 History Adult] Tacrolimus [Prograf] 2 mg PO BID@0800,1700 03/21/23 03/21/23 History Torsemide [Demadex] 10 mg PO DAILY@0800 03/21/23 03/21/23 History bisacodyL [Dulcolax] 10 mg RECTAL DAILY PRN 03/21/23 03/21/23 History cloNIDine HCL [Catapres] 0.1 mg PO BID@0800,1700 03/21/23 03/21/23 History Allergies Allergy/AdvReac Type Severity Reaction Status Date / Time hydralazine [From Apresoline] Allergy Rash/Hives Verified 04/03/23 22:33 Iodinated Contrast Media Allergy Unknown Verified 04/03/23 22:33 [Iodinated Contrast- Oral and IV Dye] meperidine [From Demerol] Allergy Anaphylaxis Verified 04/03/23 22:33 Penicillins Allergy Rash/Hives Verified 04/03/23 22:33 Physical Exam Vitals: Vital Signs Temp Pulse Resp BP Pulse Ox 04/04/23 06:00 82 16 133/65 04/04/23 05:00 82 14 130/67 04/04/23 03:00 87 137/66 100 04/04/23 02:00 84 18 141/73 100 04/04/23 01:10 98.9 F 88 20 141/73 98 04/04/23 01:00 81 18 131/79 98 04/04/23 00:00 88 16 146/78 97 04/03/23 22:29 99.7 F H 92 18 147/76 100 Intake and Output 04/03/23 04/04/23 04/04/23 22:59 06:59 14:59 Other: Weight 74.843 kg Results - Lab Results Most recent lab results Calcium 9.3 mg/dL (8.4-10.2) 04/04/23 01:14 Phosphorus 1.7 mg/dL (2.5-4.5) L 04/04/23 01:14 Magnesium 1.7 mg/dL (1.6-2.3) 04/04/23 01:14 04/04/23 01:30 04/04/23 01:14 Assessment and Plan Plan: Assessment: 1. End-stage renal disease maintained on hemodialysis Tuesday schedule via permacath. 2. Status post donor renal transplant in 2015. 3. Chronic systolic CHF ejection fraction of 40% with mild to moderate mitral regurgitation and moderate tricuspid regurgitation. 4. Volume overload. 5. Anemia of chronic kidney disease. Rule out iron deficiency. 6. Metabolic acidosis secondary to chronic kidney disease and GI losses. On oral bicarb. Expect further improvement postdialysis. 7. Hypertension with chronic kidney disease. Plan: Hemodialysis tomorrow. Check iron studies. Increase dose of torsemide to 40 mg once daily. Maintain antirejection medications. Check Prograf level. Check UA. Thank you for the consultation. I will continue to follow the patient with you during her hospital stay.
--- NOTE | 2023-04-04 12:40 | P.CONS ---
History of Present Illness - Reason for Consult Consult date: 04/04/23 wound care - History of Present Illness Is a 72-year-old patient being seen in the emergency room for a nonhealing ulceration to bilateral calcaneus and left anterior lower extremity. Patient cannot remember when the ulceration started. She does complain of significant amount of pain to the calcaneus ulcerations. The right calcaneus ulceration is a unstageable pressure ulcer measuring approximately 1.3 x 1 x 0.1 with an eschar In place no granulation noted. The left lateral calcaneus ulceration is a unstageable pressure ulcer measuring approximately 0.5 x 1 x 0.1 cm with eschar In place. The left anterior lower extremity ulceration is a non-pressure ulceration with fatty layer exposure measuring approximately 0.6 x 0.8 x 0.1 width moderate serous drainage, minimal granulation is significant amount of slough and nonviable tissue present. Review Of Systems: Constitutional: No fever, no chills, no night sweats. No weight change. No weakness, fatigue or lethargy. No daytime sleepiness. Integumentary:reports wounds, no lesions. No rash or pruritus. No unusual bruising. No change in hair or nails. Physical exam: General Appearance: Alert, cooperative, no distress, appears stated age. Skin: See HPI all other Skin color, texture, tugor normal, no rashes or lesions. Neurologic: Alert oriented x3 Assessment: 1. Unstageable pressure ulcer right calcaneus 2. Unstageable pressure ulcer left calcaneus 3. Nonhealing ulceration apparently exposure left lower extremity Plan: 1.Bilateral calcaneus/left lower extremity anterior aspect: Apply honey gel, order foam. Apply offloading heel protectors. Thank you for the consultation any questions please contact the wound care center DNP note has been reviewed and discussed with Dr. Barajas and the impression and plan of care has been directed as dictated. Past Medical History Past Medical History: No Reported History, Asthma, Diabetes Mellitus, Dialysis, Eye Disorder, Hyperlipidemia, Hypertension, Renal Disease, Skin Disorder Additional Past Medical History / Comment(s): history of covid, IDDM type II, neuropathy bilateral legs/feet, ESRD with past peritoneal/hemodialysis then in 2016 had renal transplant, UTI with sepsis, IBS, benign colon polyps, chronic low back pain, migraines, R eye retinal bleed with injections, L eye detached retina with surgery, anemia. 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 History of Any Multi-Drug Resistant Organisms: ESBL, MRSA Year Discovered:: 2011 approx ESBL- peritoneal dialysis cath(PREVIOUSLY CHARTED) MDRO Source:: ESBL-peritoneal dialysis cath Past Surgical History: Cholecystectomy, Hysterectomy, Orthopedic Surgery Additional Past Surgical History / Comment(s): Peritoneal dialysis cath since removed, hemodialysis cath since removed, 2016 renal transplant, EGD, colonoscopies/benign polypectomy, bilateral eye cataract removals, L eye detached retinal surgery, L knee arthroscopy Past Anesthesia/Blood Transfusion Reactions: No Reported Reaction Additional Past Anesthesia/Blood Transfusion Reaction / Comm: has had a hard time coming out of anesthesia Past Psychological History: Anxiety Smoking Status: Former smoker Past Alcohol Use History: None Reported Past Drug Use History: None Reported - Past Family History Mother History Unknown: Yes Additional Family Medical History / Comment(s): Mother of poisoning when pt was 11 yrs old. Father Family Medical History: Vascular Disorder Additional Family Medical History / Comment(s): brain aneurysm Medications and Allergies Home Medications Medication Instructions Recorded Confirmed Type Atorvastatin Calcium [Lipitor] 10 mg PO HS@2100 08/11/16 03/21/23 History Sodium Bicarbonate Tab 1,300 mg PO TID@0800,1200,1700 08/11/16 03/21/23 History amLODIPine [Norvasc] 10 mg PO DAILY@0800 08/11/16 03/21/23 History predniSONE 5 mg PO DAILY@0800 08/25/17 03/21/23 History Mycophenolate Sodium [Mycophenolic 360 mg PO BID@0800,1700 04/25/20 03/21/23 History Acid] Ergocalciferol [Vitamin D2 (1250 1,250 mcg PO FR@0800 10/27/21 03/21/23 History Mcg = 01714 Iu)] Famotidine 40 mg PO DAILY@0900 10/27/21 03/21/23 History carvediloL [Coreg] 25 mg PO BID@0800,1700 10/27/21 03/21/23 History Albuterol Inhaler [Ventolin Hfa 2 puff INHALATION RT-QID PRN 11/24/22 03/21/23 History Inhaler] Aspirin EC [Ecotrin Low Dose] 81 mg PO DAILY@0800 11/24/22 03/21/23 History Docusate [Colace] 100 mg PO DAILY PRN 11/24/22 03/21/23 History Thiamine [Vitamin B-1] 250 mg PO BID@0800,1700 11/24/22 03/21/23 History Diphenox-Atrop 2.5-0.025 mg 1 tab PO TID PRN #3 tab 03/11/23 03/21/23 Rx [Lomotil] Acetaminophen Tab [Tylenol] 650 mg PO Q4H PRN 03/21/23 03/21/23 History Folic Acid 1 mg PO DAILY@0800 03/21/23 03/21/23 History HYDROcodone/APAP 5-325MG [[place] 1 tab PO Q6H PRN 03/21/23 03/21/23 History 5-325] INSULIN ASPART (NovoLOG) [NovoLOG See Protocol SQ 03/21/23 03/21/23 History (formulary)] ACHS@07,11,1630,2130 Eduardo Packet 1 packet PO DAILY@1700 03/21/23 03/21/23 History Eduardo Packet 1 packet PO SUMOWEFR@0800 03/21/23 03/21/23 History Eduardo Packet 1 packet PO TUTHSA@1200 03/21/23 03/21/23 History Magic Cup 1 dose PO BID@1200,1700 03/21/23 03/21/23 History Magnesium Hydroxide [Milk of 7,200 mg PO DAILY PRN 03/21/23 03/21/23 History Magnesia Concentrate] Na Phos,M-B/Na Phos,Di-Ba [Fleet 133 ml RECTAL DAILY PRN 03/21/23 03/21/23 Hi story Adult] Tacrolimus [Prograf] 2 mg PO BID@0800,1700 03/21/23 03/21/23 History Torsemide [Demadex] 10 mg PO DAILY@0800 03/21/23 03/21/23 History bisacodyL [Dulcolax] 10 mg RECTAL DAILY PRN 03/21/23 03/21/23 History cloNIDine HCL [Catapres] 0.1 mg PO BID@0800,1700 03/21/23 03/21/23 History Allergies Allergy/AdvReac Type Severity Reaction Status Date / Time hydralazine [From Apresoline] Allergy Rash/Hives Verified 04/03/23 22:33 Iodinated Contrast Media Allergy Unknown Verified 04/03/23 22:33 [Iodinated Contrast- Oral and IV Dye] meperidine [From Demerol] Allergy Anaphylaxis Verified 04/03/23 22:33 Penicillins Allergy Rash/Hives Verified 04/03/23 22:33 Physical Exam Vitals: Vital Signs Temp Pulse Resp BP Pulse Ox 04/04/23 06:00 82 16 133/65 04/04/23 05:00 82 14 130/67 04/04/23 03:00 87 137/66 100 04/04/23 02:00 84 18 141/73 100 04/04/23 01:10 98.9 F 88 20 141/73 98 04/04/23 01:00 81 18 131/79 98 04/04/23 00:00 88 16 146/78 97 04/03/23 22:29 99.7 F H 92 18 147/76 100 Intake and Output 04/03/23 04/04/23 04/04/23 22:59 06:59 14:59 Other: Weight 74.843 kg Results CBC & Chem 7: 04/04/23 01:30 04/04/23 01:14 Labs: Abnormal Lab Results - Last 24 Hours (Table) 04/04/23 04/04/23 04/04/23 Range/Units 01:14 01:14 01:14 RBC (3.80-5.40) m/uL Hgb (11.4-16.0) gm/dL Hct (34.0-46.0) % MCHC (31.0-37.0) g/dL RDW (11.5-15.5) % PT 12.8 H (10.0-12.5) sec INR 1.2 H (<1.2) Sodium 134 L (137-145) mmol/L Carbon Dioxide 21 L (22-30) mmol/L Creatinine 1.87 H (0.52-1.04) mg/dL Phosphorus 1.7 L (2.5-4.5) mg/dL Troponin I 0.047 H* (0.000-0.034) ng/mL Total Protein 5.6 L (6.3-8.2) g/dL Albumin 3.1 L (3.5-5.0) g/dL Urine Protein (Negative) Ur Leukocyte Esterase (Negative) Urine Yeast (Budding) (None) /hpf 04/04/23 04/04/23 04/04/23 Range/Units 01:30 06:21 11:00 RBC 3.12 L (3.80-5.40) m/uL Hgb 8.9 L (11.4-16.0) gm/dL Hct 29.7 L (34.0-46.0) % MCHC 29.9 L (31.0-37.0) g/dL RDW 17.7 H (11.5-15.5) % PT (10.0-12.5) sec INR (<1.2) Sodium (137-145) mmol/L Carbon Dioxide (22-30) mmol/L Creatinine (0.52-1.04) mg/dL Phosphorus (2.5-4.5) mg/dL Troponin I 0.043 H* (0.000-0.034) ng/mL Total Protein (6.3-8.2) g/dL Albumin (3.5-5.0) g/dL Urine Protein 2+ H (Negative) Ur Leukocyte Esterase Small H (Negative) Urine Yeast (Budding) Rare H (None) /hpf Assessment and Plan (1) Unstageable pressure ulcer of left heel Current Visit: Yes Status: Acute Code(s): L89.620 - PRESSURE ULCER OF LEFT HEEL, UNSTAGEABLE SNOMED Code(s): 76854158093874508 (2) Unstageable pressure ulcer of right heel Current Visit: Yes Status: Acute Code(s): L89.610 - PRESSURE ULCER OF RIGHT HEEL, UNSTAGEABLE SNOMED Code(s): 31239848887574816 (3) Non-pressure chronic ulcer of other part of left lower leg with fat layer exposed Current Visit: Yes Status: Acute Code(s): L97.822 - NON-PRS CHRONIC ULCER OTH PRT L LOW LEG W FAT LAYER EXPOSED SNOMED Code(s): 66377401912213745
--- NOTE | 2023-04-04 12:44 | P.HPIM ---
History of Present Illness H&P Date: 04/04/23 History of Presenting Illness: Patient is a very pleasant 72 -year-old female with a past medical history of renal transplant in 2016 currently with ESRD on dialysis //tue, hypertension, dyslipidemia, and insulin-dependent diabetes mellitus . Patient presented to the emergency department via EMS from home with a chief complaint of general weakness and burning with urination. Patient was in rehab at [facility] and was reportedly discharged home with her on Tuesday04/02/23, states that her is disabled and unable to help her very much and she believes she is still too weak to independently care for herself and needs to return to rehab. Patient underwent full evaluation in the emergency department. Vital signs upon arrival show blood pressure 147/76, heart rate 92, respiratory rate 18, temp 99.7F, SpO2 100% on room air. Labs completed and reviewed. CBC showing a stable normocytic anemia with hemoglobin of 8.9. Coagulation profile showing elevated PT of 12.8 and INR 1.2. BMP showing sodium 134, bicarb 21, BUN 13, creatinine 1.87, and GFR of 26. Liver profile unremarkable. Magnesium slightly low 1.7. Troponin elevated at 0.047 with repeat troponin is 0.043. TSH normal findings at 1.940. EKG completed showing normal sinus rhythm at 85 bpm with no significant T-wave or ST abnormalities showing no signs of acute ischemia. Patient was initially admitted to [facility] hospitalist group on 04/03/23 at 11:10 PM. We were notified of this admission at 7:49 AM on 04/04/23. At time of assessment and patient resting comfortably. Patient reports generalized weakness with inability to complete activities of daily living independently. She reports she felt like she was strong enough to go home from [facility] but after she got home she realized she still was not able to completely and independently perform her necessary activities of daily living. Patient currently denies having headache, lightheadedness, dizziness, chest pain, palpitations, shortness of breath, nausea, vomiting, or experiencing any focal numbness/weakness in her extremities. She reports that swelling to her bilateral lower extremities is chronic along with the wounds. Patient does report burning with urination but denies urinary frequency, urgency, or hematuria. Review of systems: Pertinent positives and negatives as discussed in HPI, a complete review of systems was performed and all other systems are negative. Physical exam: Vital signs reviewed and stable. Thin and frail. General: Nontoxic, no distress and appears stated age. Derm: Skin warm and dry, normal coloration for ethnicity. Open Wounds/ulcers to bilateral lower extremities. Head: Atraumatic, normocephalic and symmetric. Eyes: EOMs intact, no lid lag, and anicteric sclera Mouth: no lip lesions, mucus membranes moist Cardiovascular: regular rate and rhythm with normal S1S2, systolic murmur, positive posterior tibial pulses bilaterally, and cap refill < 2 seconds. Permacath left anterior chest Lungs: Respirations even, regular, and unlabored on room air. Lungs CTA bilaterally, no rhonchi, no rales, no wheezing, and no accessory muscle usage. Abdominal: soft, nontender to palpation, no guarding, no appreciable organomegaly Ext:. No gross muscle atrophy, movement and sensation intact. Patient with 2+ bilateral lower extremity edema. Neuro: Speech clear, face symmetrical and CN II-XII grossly intact with no noted focal neuro deficits Psych: Alert and oriented to person, place, time, and situation. Appropriate and pleasant affect. Assessment and Plan of Care: Generalized weakness Renal transplant recipient currently with ESRD on dialysis T/Th?Sat Anemia of chronic disease, secondary to chronic kidney disease Wounds to bilateral lower feet Insulin-dependent Diabetes mellitus type 2 with hyperglycemia Troponin elevation, chronic and secondary to ESRD and not consistent with acute coronary syndrome Folate deficiency Hypertension Dyslipidemia Dysuria, urinalysis negative for infection -Patient admitted to observation unit with telemetry. -Consult placed to nephrology secondary to history of renal transplant on antirejection medications and current need for dialysis Tuesday// ay -Consult placed to physical and occupational therapy for evaluation secondary to patient's reports of generalized weakness. -Consult placed to case management for assistance with placement -Nursing communication place to straight catheterize if needed to obtain specimen for previously ordered urinalysis as patient's reporting weakness with dysuria and has history of complicated UTIs with MRSA UTI -Telemetry monitoring -Fall precautions -Consult placed to wound care secondary to patient's wounds to bilateral feet present upon arrival -Patient to continue daily medication regimen with amlodipine 10 mg daily, aspirin 81 mg daily, atorvastatin 10 mg nightly, carvedilol 25 mg twice daily, clonidine 0.1 mg twice daily, Pepcid 40 mg daily, folate acid 1 mg daily, mycophenolate sodium 360 mg twice daily, prednisone 5 mg daily, sodium bicarb 1300 mg 3 times daily, torsemide 40 mg daily and tacrolimus 2 mg twice daily. Data and imaging reviewed: -Vital signs upon arrival show blood pressure 147/76, heart rate 92, respiratory rate 18, temp 99.7F, SpO2 100% on room air. -Labs completed and reviewed. CBC showing a stable normocytic anemia with hemoglobin of 8.9. Coagulation profile showing elevated PT of 12.8 and INR 1.2. BMP showing sodium 134, bicarb 21, BUN 13, creatinine 1.87, and GFR of 26. Liver profile unremarkable. Magnesium slightly low 1.7. Troponin elevated at 0.047 with repeat troponin is 0.043. TSH normal findings at 1.940. -EKG completed showing normal sinus rhythm at 85 bpm with no significant T-wave or ST abnormalities showing no signs of acute ischemia. -Urinalysis negative for infection. [facility] We were notified of this admission at 7:49 AM on 04/04/23 and as suming care of patient at this time. CODE STATUS: Full code DVT prophylaxis: Heparin Discussed with: Patient, RN, social sciences professor/case management manager and reel man. Anticipated discharge date: 24-[address]: Home with palliative care versus returning to residential facility Patient was seen independently by Nurse Practitioner. This document was prepared using [employer] dictation software. Please allow for errors in mainframe programmer analyst while rare they do occur. Past Medical History Past Medical History: No Reported History, Asthma, Diabetes Mellitus, Dialysis, Eye Disorder, Hyperlipidemia, Hypertension, Renal Disease, Skin Disorder Additional Past Medical History / Comment(s): history of covid, IDDM type II, neuropathy bilateral legs/feet, ESRD with past peritoneal/hemodialysis then in 2016 had renal transplant, UTI with sepsis, IBS, benign colon polyps, chronic low back pain, migraines, R eye retinal bleed with injections, L eye detached retina with surgery, anemia. 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 History of Any Multi-Drug Resistant Organisms: ESBL, MRSA Date of last positivie culture/infection: 2011 approx ESBL- peritoneal dialysis cath(PREVIOUSLY CHARTED) MDRO Source:: ESBL-peritoneal dialysis cath Past Surgical History: Cholecystectomy, Hysterectomy, Orthopedic Surgery Additional Past Surgical History / Comment(s): Peritoneal dialysis cath since removed, hemodialysis cath since removed, 2016 renal transplant, EGD, colonoscopies/benign polypectomy, bilateral eye cataract removals, L eye detached retinal surgery, L knee arthroscopy Past Anesthesia/Blood Transfusion Reactions: No Reported Reaction Additional Past Anesthesia/Blood Transfusion Reaction / Comment(s): has had a hard time coming out of anesthesia Past Psychological History: Anxiety Smoking Status: Former smoker Past Alcohol Use History: None Reported Past Drug Use History: None Reported - Past Family History Mother History Unknown: Yes Additional Family Medical History / Comment(s): Mother of poisoning when pt was 11 yrs old. Father Family Medical History: Vascular Disorder Additional Family Medical History / Comment(s): brain aneurysm Medications and Allergies Home Medications Medication Instructions Recorded Confirmed Type Atorvastatin Calcium [Lipitor] 10 mg PO HS@2100 08/11/16 03/21/23 History Sodium Bicarbonate Tab 1,300 mg PO TID@0800,1200,1700 08/11/16 03/21/23 History amLODIPine [Norvasc] 10 mg PO DAILY@0800 08/11/16 03/21/23 History predniSONE 5 mg PO DAILY@0800 08/25/17 03/21/23 History Mycophenolate Sodium [Mycophenolic 360 mg PO BID@0800,1700 04/25/20 03/21/23 History Acid] Ergocalciferol [Vitamin D2 (1250 1,250 mcg PO FR@0800 10/27/21 03/21/23 History Mcg = 38175 Iu)] Famotidine 40 mg PO DAILY@0900 10/27/21 03/21/23 History carvediloL [Coreg] 25 mg PO BID@0800,1700 10/27/21 03/21/23 History Albuterol Inhaler [Ventolin Hfa 2 puff INHALATION RT-QID PRN 11/24/22 03/21/23 History Inhaler] Aspirin EC [Ecotrin Low Dose] 81 mg PO DAILY@0800 11/24/22 03/21/23 History Docusate [Colace] 100 mg PO DAILY PRN 11/24/22 03/21/23 History Thiamine [Vitamin B-1] 250 mg PO BID@0800,1700 11/24/22 03/21/23 History Diphenox-Atrop 2.5-0.025 mg 1 tab PO TID PRN #3 tab 03/11/23 03/21/23 Rx [Lomotil] Acetaminophen Tab [Tylenol] 650 mg PO Q4H PRN 03/21/23 03/21/23 History Folic Acid 1 mg PO DAILY@0800 03/21/23 03/21/23 History HYDROcodone/APAP 5-325MG [[place] 1 tab PO Q6H PRN 03/21/23 03/21/23 History 5-325] INSULIN ASPART (NovoLOG) [NovoLOG See Protocol SQ 03/21/23 03/21/23 History (formulary)] ACHS@07,11,1630,2130 Eduardo Packet 1 packet PO DAILY@1700 03/21/23 03/21/23 History Eduardo Packet 1 packet PO SUMOWEFR@0800 03/21/23 03/21/23 History Eduardo Packet 1 packet PO TUTHSA@1200 03/21/23 03/21/23 History Magic Cup 1 dose PO BID@1200,1700 03/21/23 03/21/23 History Magnesium Hydroxide [Milk of 7,200 mg PO DAILY PRN 03/21/23 03/21/23 History Magnesia Concentrate] Na Phos,M-B/Na Phos,Di-Ba [Fleet 133 ml RECTAL DAILY PRN 03/21/23 03/21/23 History Adult] Tacrolimus [Prograf] 2 mg PO BID@0800,1700 03/21/23 03/21/23 History Torsemide [Demadex] 10 mg PO DAILY@0800 03/21/23 03/21/23 History bisacodyL [Dulcolax] 10 mg RECTAL DAILY PRN 03/21/23 03/21/23 History cloNIDine HCL [Catapres] 0.1 mg PO BID@0800,1700 03/21/23 03/21/23 History Allergies Allergy/AdvReac Type Severity Reaction Status Date / Time hydralazine [From Apresoline] Allergy Rash/Hives Verified 04/03/23 22:33 Iodinated Contrast Media Allergy Unknown Verified 04/03/23 22:33 [Iodinated Contrast- Oral and IV Dye] meperidine [From Demerol] Allergy Anaphylaxis Verified 04/03/23 22:33 Penicillins Allergy Rash/Hives Verified 04/03/23 22:33 Physical Exam Vitals: Vital Signs Temp Pulse Resp BP Pulse Ox 04/04/23 06:00 82 16 133/65 04/04/23 05:00 82 14 130/67 04/04/23 03:00 87 137/66 100 04/04/23 02:00 84 18 141/73 100 04/04/23 01:10 98.9 F 88 20 141/73 98 04/04/23 01:00 81 18 131/79 98 04/04/23 00:00 88 16 146/78 97 04/03/23 22:29 99.7 F H 92 18 147/76 100 Intake and Output 04/03/23 04/04/23 04/04/23 22:59 06:59 14:59 Other: Weight 74.843 kg Results CBC & Chem 7: 04/04/23 01:30 04/04/23 01:14 Labs: Abnormal Lab Results - Last 24 Hours (Table) 04/04/23 04/04/23 04/04/23 Range/Units 01:14 01:14 01:14 RBC (3.80-5.40) m/uL Hgb (11.4-16.0) gm/dL Hct (34.0-46.0) % MCHC (31.0-37.0) g/dL RDW (11.5-15.5) % PT 12.8 H (10.0-12.5) sec INR 1.2 H (<1.2) Sodium 134 L (137-145) mmol/L Carbon Dioxide 21 L (22-30) mmol/L Creatinine 1.87 H (0.52-1.04) mg/dL Phosphorus 1.7 L (2.5-4.5) mg/dL Troponin I 0.047 H* (0.000-0.034) ng/mL Total Protein 5.6 L (6.3-8.2) g/dL Albumin 3.1 L (3.5-5.0) g/dL 04/04/23 04/04/23 Range/Units 01:30 06:21 RBC 3.12 L (3.80-5.40) m/uL Hgb 8.9 L (11.4-16.0) gm/dL Hct 29.7 L (34.0-46.0) % MCHC 29.9 L (31.0-37.0) g/dL RDW 17.7 H (11.5-15.5) % PT (10.0-12.5) sec INR (<1.2) Sodium (137-145) mmol/L Carbon Dioxide (22-30) mmol/L Creatinine (0.52-1.04) mg/dL Phosphorus (2.5-4.5) mg/dL Troponin I 0.043 H* (0.000-0.034) ng/mL Total Protein (6.3-8.2) g/dL Albumin (3.5-5.0) g/dL
[2023-04-04] MEDS: SODIUM BICARBONATE TAB 650 MG TAB PO SCH ×2 (14:17→19:32)
[2023-04-04] MEDS: MYCOPHENOLATE SODIUM DR 180 MG TABLET.DR PO SCH ×2 (14:18→21:13)
[2023-04-04 16:22] LABS: % Iron Saturation 86.54 (12.00-45.00)
[2023-04-04] MEDS ORDERED: NON FORMULARY DRUG (Juven Packet 1 PACKET Packet) PO SCH (17:00)
[2023-04-04] MEDS: THIAMINE 100 MG TAB PO SCH (19:33)
[2023-04-04] MEDS: ATORVASTATIN 10 MG TAB PO SCH (22:45)
[2023-04-04] MEDS: HEPARIN SODIUM,PORCINE 5,000 UNIT/ML 1 ML VIAL SQ SCH (22:45)
[2023-04-05] MEDS: MORPHINE SULFATE 4 MG/ML SYRINGE IV PRN (05:22)
[2023-04-05 06:29] LABS: Glucose,Whole Blood 114 mg/dL (70-110)
[2023-04-05] MEDS: SODIUM BICARBONATE TAB 650 MG TAB PO SCH ×3 (08:18→18:19)
[2023-04-05] MEDS: MYCOPHENOLATE SODIUM DR 180 MG TABLET.DR PO SCH ×2 (08:18→18:20)
[2023-04-05] MEDS: HEPARIN SODIUM,PORCINE 5,000 UNIT/ML 1 ML VIAL SQ SCH ×2 (08:19→20:01)
[2023-04-05] MEDS: TACROLIMUS 1 MG CAP PO SCH ×2 (08:19→18:19)
[2023-04-05] MEDS: THIAMINE 100 MG TAB PO SCH ×2 (08:20→18:18)
[2023-04-05] MEDS: carvediloL 12.5 MG TAB PO SCH ×2 (10:36→18:18)
[2023-04-05] MEDS: cloNIDine HCL 0.1 MG TAB PO SCH (10:36)
[2023-04-05] MEDS: amLODIPine 10 MG TAB PO SCH (10:36)
[2023-04-05] MEDS: ONDANSETRON 4 MG/2 ML VIAL IVP PRN ×2 (11:06→20:08)
--- NOTE | 2023-04-05 11:43 | P.PN ---
Subjective Patient is seen in follow-up for end-stage renal disease. She is maintained on hemodialysis on Tuesday schedule via a permacath. Tolerating dialysis well. Hemodynamically stable. No complaints. Vital signs are stable. General: No acute distress. HEENT: Head exam is unremarkable. LUNGS: No audible rhonchi or wheezes. HEART: Rate and Rhythm are regular. ABDOMEN: Nontender. EXTREMITITES: No edema. Objective - Vital Signs Vital signs: Vital Signs Temp 97.8 F 04/05/23 07:52 Pulse 70 04/05/23 07:52 Resp 15 04/05/23 07:52 BP 102/61 04/05/23 07:52 Pulse Ox 100 04/05/23 07:52 FiO2 Intake & Output 04/04/23 04/05/23 04/05/23 18:59 06:59 18:59 Weight 74.843 kg Other: Voiding Method Diaper # Voids 1 # Bowel Movements 2 - Labs CBC & Chem 7: 04/04/23 01:30 04/04/23 01:14 Labs: Abnormal Lab Results - Last 24 Hours (Table) 04/04/23 04/04/23 04/05/23 Range/Units 01:14 11:00 06:28 POC Glucose (mg/dL) 114 H (70-110) mg/dL TIBC 104 L (228-460) UG/DL % Saturation 86.54 H (12.00-45.00) Transferrin 74.0 L (204.0-354.0) mg/dL Ferritin 4321.0 H (10.0-291.0) ng/mL Urine Protein 2+ H (Negative) Ur Leukocyte Esterase Small H (Negative) Urine Yeast (Budding) Rare H (None) /hpf Assessment and Plan Plan: Assessment: 1. End-stage renal disease maintained on hemodialysis Tuesday schedule via permacath. 2. Status post donor renal transplant in 2015. 3. Chronic systolic CHF ejection fraction of 40% with mild to moderate mitral regurgitation and moderate tricuspid regurgitation. 4. Volume overload. 5. Anemia of chronic kidney disease. Iron replete. 6. Metabolic acidosis secondary to chronic kidney disease and GI losses. On oral bicarb. Expect further improvement postdialysis. 7. Hypertension with chronic kidney disease. Blood pressure in the lower side. Plan: Currently seen while undergoing hemodialysis. Add Aranesp. Maintain torsemide. Maintain antirejection medications. Follow-up Prograf level. Stop clonidine. Decrease dose of amlodipine to 5 mg once daily. Hold for systolic blood pressure less than 120. CODE STATUS discussed with patient. She wishes to be full code. 20 minutes.
--- NOTE | 2023-04-05 11:43 | P.PN ---
Subjective Progress Note Date: 04/05/23 Hospital Course: Patient is a very pleasant 72 -year-old female with a past medical history of renal transplant in 2016 currently with ESRD on dialysis //tue, hypertension, dyslipidemia, and insulin-dependent diabetes mellitus . Patient presented to the emergency department via EMS from home with a chief complaint of general weakness and burning with urination. Patient was in rehab at [facility] and was reportedly discharged home with her on Tuesday04/02/23, states that her is disabled and unable to help her very much and she believes she is still too weak to independently care for herself and needs to return to rehab. Patient underwent full evaluation in the emergency department. Vital signs upon arrival show blood pressure 147/76, heart rate 92, respiratory rate 18, temp 99.7F, SpO2 100% on room air. Labs completed and reviewed. CBC showing a stable normocytic anemia with hemoglobin of 8.9. Coagulation profile showing elevated PT of 12.8 and INR 1.2. BMP showing sodium 134, bicarb 21, BUN 13, creatinine 1.87, and GFR of 26. Liver profile unremarkable. Magnesium slightly low 1.7. Troponin elevated at 0.047 with repeat troponin is 0.043. TSH normal findings at 1.940. EKG completed showing normal sinus rhythm at 85 bpm with no significant T-wave or ST abnormalities showing no signs of acute ischemia. Patient was initially admitted to [facility] hospitalist group on 04/03/23 at 11:10 PM. We were notified of this admission at 7:49 AM on 04/04/23. Subjective: Patient is having complaints of nausea, vomiting today. BPs are borderline low. Physical exam: Gen: awake, alert HEENT: normocephalic, atraumatic, good hearing acuity, moist mucous membranes Resp: good air exchange, breathing comfortably with no accessory muscle use CVS: good distal perfusion x 4, GI: soft, NTTP, ND : no SPT, no CVAT, fox catheter not present MSK: no pitting edema, no clubbing Neuro: non-focal, moving all extremities Psych: cooperative, euthymic mood Assessment and Plan of Care: Generalized weakness Dysuria - orthostatics twice daily - IVF: NS @ 20cc/hr - PT/OT consulted - r/o UTI - UA with small LE, 2+ protein; UCx is pending Renal transplant recipient currently with ESRD on dialysis T/Th?Sat Troponin elevation, chronic and secondary to ESRD and not consistent with acute coronary syndrome Anemia of chronic disease, secondary to chronic kidney disease - nephrology consulted, appreciate recs: 04/04 reviewed - iHD, check iron studies, check prograf level, increase torsemide - Bicarb 1300 TID, Tacro 2mg BID (level pending), Prednisone 5mg daily, Mycophenolate 360mg BID - Torsemide 40mg daily Wounds to bilateral lower feet - wound care consult appreciated: 04/04 reviewed - honey gel, order foam, offloading heel protectors Insulin-dependent Diabetes mellitus type 2 with hyperglycemia - glucose monitoring + LD SSI ordered 04/05 Folate deficiency Hypertension Dyslipidemia - Continue amlodipine 10 mg daily, carvedilol 25 mg twice daily, clonidine 0.1 mg twice daily, - Continue ASA 81mg daily, atorvastatin 10mg HS - Continue folic acid 1mg daily CODE STATUS: Full code DVT prophylaxis: Heparin Anticipated discharge date: 24-[address]: Home with palliative care versus returning to half-way facility Objective - Vital Signs Vital signs: Vital Signs Temp 97.8 F 04/05/23 07:52 Pulse 70 04/05/23 07:52 Resp 15 04/05/23 07:52 BP 102/61 04/05/23 07:52 Pulse Ox 100 04/05/23 07:52 FiO2 Intake & Output 04/04/23 04/05/23 04/05/23 18:59 06:59 18:59 Weight 74.843 kg Other: Voiding Method Diaper # Voids 1 # Bowel Movements 2 - Labs CBC & Chem 7: 04/04/23 01:30 04/04/23 01:14 Labs: Abnormal Lab Results - Last 24 Hours (Table) 04/04/23 04/04/23 04/05/23 Range/Units 01:14 11:00 06:28 POC Glucose (mg/dL) 114 H (70-110) mg/dL TIBC 104 L (228-460) UG/DL % Saturation 86.54 H (12.00-45.00) Transferrin 74.0 L (204.0-354.0) mg/dL Ferritin 4321.0 H (10.0-291.0) ng/mL Urine Protein 2+ H (Negative) Ur Leukocyte Esterase Small H (Negative) Urine Yeast (Budding) Rare H (None) /hpf
[2023-04-05] MEDS ORDERED: NON FORMULARY DRUG (Juven Packet 1 PACKET Packet) PO SCH (12:00)
[2023-04-05 13:16] LABS: Glucose,Whole Blood 116 mg/dL (70-110)
[2023-04-05] MEDS: INSULIN ASPART (NovoLOG) 100 UNIT/ML VIAL SQ SCH ×2 (13:43→18:20)
[2023-04-05] MEDS: FAMOTIDINE 20 MG TAB PO SCH (13:57)
[2023-04-05] MEDS: TORSEMIDE 20 MG TAB PO SCH (13:58)
[2023-04-05] MEDS: predniSONE 5 MG TAB PO SCH (13:59)
[2023-04-05] MEDS: FOLIC ACID 1 MG TAB PO SCH (13:59)
[2023-04-05] MEDS: ASPIRIN 81 MG PO SCH (13:59)
[2023-04-05] MEDS: DARBEPOETIN ALFA 40 MCG/0.4 ML SYRINGE SQ SCH (14:30)
[2023-04-05 16:33] LABS: Glucose,Whole Blood 153 mg/dL (70-110)
[2023-04-05] MEDS: HYDROcodone/APAP 5-325MG 1 EACH TAB PO PRN (20:01)
[2023-04-05] MEDS: ATORVASTATIN 10 MG TAB PO SCH (20:01)
[2023-04-05 21:45] LABS: Glucose,Whole Blood 159 mg/dL (70-110)
[2023-04-06] MEDS: SODIUM CHLORIDE 0.9% 1,000 ML IV SCH (00:25)
[2023-04-06] MEDS: MORPHINE SULFATE 4 MG/ML SYRINGE IV PRN (01:56)
[2023-04-06] MEDS ORDERED: MORPHINE SULFATE 2 MG/ML SYRINGE IVP STA (07:05)
[2023-04-06] MEDS ORDERED: NON FORMULARY DRUG (Juven Packet 1 PACKET Packet) PO SCH (08:00)
[2023-04-06] MEDS: amLODIPine 5 MG TAB PO SCH (08:30)
[2023-04-06] MEDS: THIAMINE 100 MG TAB PO SCH ×2 (08:37→16:10)
[2023-04-06] MEDS: SODIUM BICARBONATE TAB 650 MG TAB PO SCH ×3 (08:37→16:10)
[2023-04-06 08:38] LABS: Glucose,Whole Blood 160 mg/dL (70-110)
[2023-04-06] MEDS: MYCOPHENOLATE SODIUM DR 180 MG TABLET.DR PO SCH ×2 (08:38→16:10)
[2023-04-06] MEDS: FOLIC ACID 1 MG TAB PO SCH (08:38)
[2023-04-06] MEDS: TACROLIMUS 1 MG CAP PO SCH ×2 (08:38→16:10)
[2023-04-06] MEDS: carvediloL 12.5 MG TAB PO SCH ×2 (08:38→16:10)
[2023-04-06] MEDS: ASPIRIN 81 MG PO SCH (08:38)
[2023-04-06] MEDS: predniSONE 5 MG TAB PO SCH (08:38)
[2023-04-06] MEDS: TORSEMIDE 20 MG TAB PO SCH (08:38)
[2023-04-06] MEDS: FAMOTIDINE 20 MG TAB PO SCH (08:39)
[2023-04-06] MEDS: HEPARIN SODIUM,PORCINE 5,000 UNIT/ML 1 ML VIAL SQ SCH ×2 (08:39→20:15)
[2023-04-06] MEDS: INSULIN ASPART (NovoLOG) 100 UNIT/ML VIAL SQ SCH ×3 (08:48→17:38)
[2023-04-06 11:50] LABS: Glucose,Whole Blood 179 mg/dL (70-110)
--- NOTE | 2023-04-06 11:51 | P.PN ---
Subjective Patient is seen in follow-up for end-stage renal disease. She is maintained on hemodialysis on Tuesday schedule via a permacath. Vomited yesterday during dialysis and treatment was cut short. Resting in bed. Confused per nurse. Vital signs are stable. General: No acute distress. HEENT: Head exam is unremarkable. LUNGS: No audible rhonchi or wheezes. HEART: Rate and Rhythm are regular. ABDOMEN: Nontender. EXTREMITITES: No edema. Objective - Vital Signs Vital signs: Vital Signs Temp 97.4 F L 04/06/23 07:57 Pulse 74 04/06/23 07:57 Resp 17 04/06/23 07:57 BP 107/75 04/06/23 07:57 Pulse Ox 95 04/06/23 07:57 FiO2 Intake & Output 04/05/23 04/06/23 04/06/23 18:59 06:59 18:59 Intake Total 800 Output Total 435 Balance 365 Weight 74.843 kg Intake: Hemodialysis 800 Output: Hemodialysis 435 Other: Voiding Method Diaper Diaper Diaper # Voids 0 1 - Labs CBC & Chem 7: 04/04/23 01:30 04/04/23 01:14 Labs: Abnormal Lab Results - Last 24 Hours (Table) 04/04/23 04/05/23 04/05/23 Range/Units 06:21 13:15 16:31 POC Glucose (mg/dL) 116 H 153 H (70-110) mg/dL Tacrolimus 1.8 L (5.0-20.0) ng/mL 04/05/23 04/06/23 Range/Units 21:44 08:37 POC Glucose (mg/dL) 159 H 160 H (70-110) mg/dL Tacrolimus (5.0-20.0) ng/mL Microbiology - Last 24 Hours (Table) 04/04/23 11:45 Urine Culture - Final Urine,Catheterized Assessment and Plan Plan: Assessment: 1. End-stage renal disease maintained on hemodialysis Tuesday schedule via permacath. 2. Status post donor renal transplant in 2015. 3. Chronic systolic CHF ejection fraction of 40% with mild to moderate mitral regurgitation and moderate tricuspid regurgitation. 4. Volume overload. Improved. 5. Anemia of chronic kidney disease. Iron replete. On Aranesp. 6. Metabolic acidosis secondary to chronic kidney disease and GI losses. On oral bicarb. Expect further improvement postdialysis. 7. Hypertension with chronic kidney disease. Controlled. Plan: Hemodialysis tomorrow. Maintain torsemide. Maintain antirejection medications. Prograf level 1.8 dated 04/04/2023. Increase dose of Prograf. Hold amlodipine for systolic blood pressure less than 120. Follow-up cultures. Avoid morphine due to ESRD. Okay to use Dilaudid if needed.
--- NOTE | 2023-04-06 12:51 | P.PN ---
Subjective Progress Note Date: 04/06/23 Hospital Course: Patient is a very pleasant 72 -year-old female with a past medical history of renal transplant in 2016 currently with ESRD on dialysis //tue, hypertension, dyslipidemia, and insulin-dependent diabetes mellitus . Patient presented to the emergency department via EMS from home with a chief complaint of general weakness and burning with urination. Patient was in rehab at [facility] and was reportedly discharged home with her on Tuesday04/02/23, states that her is disabled and unable to help her very much and she believes she is still too weak to independently care for herself and needs to return to rehab. Patient underwent full evaluation in the emergency department. Vital signs upon arrival show blood pressure 147/76, heart rate 92, respiratory rate 18, temp 99.7F, SpO2 100% on room air. Labs completed and reviewed. CBC showing a stable normocytic anemia with hemoglobin of 8.9. Coagulation profile showing elevated PT of 12.8 and INR 1.2. BMP showing sodium 134, bicarb 21, BUN 13, creatinine 1.87, and GFR of 26. Liver profile unremarkable. Magnesium slightly low 1.7. Troponin elevated at 0.047 with repeat troponin is 0.043. TSH normal findings at 1.940. EKG completed showing normal sinus rhythm at 85 bpm with no significant T-wave or ST abnormalities showing no signs of acute ischemia. Patient was initially admitted to [facility] hospitalist group on 04/03/23 at 11:10 PM. We were notified of this admission at 7:49 AM on 04/04/23. Subjective: Patient is confused today, but appears comfortable. No fevers, chills, pain, dysuria. Physical exam: Gen: awake, alert HEENT: normocephalic, atraumatic, good hearing acuity, moist mucous membranes Resp: good air exchange, breathing comfortably with no accessory muscle use CVS: good distal perfusion x 4, GI: soft, NTTP, ND : no SPT, no CVAT, fox catheter not present MSK: no pitting edema, no clubbing Neuro: non-focal, moving all extremities Psych: cooperative, euthymic mood Assessment and Plan of Care: Generalized weakness Dysuria Encephalopathy, metabolic - orthostatics twice daily - IVF: NS @ 20cc/hr - PT/OT consulted - r/o UTI - UA with small LE, 2+ protein; UCx is negative - BCx pending Renal transplant recipient currently with ESRD on dialysis T/Th?Sat Troponin elevation, chronic and secondary to ESRD and not consistent with acute coronary syndrome Anemia of chronic disease, secondary to chronic kidney disease - nephrology consulted, appreciate recs: 04/05 discussed -obtain BCx to r/o infectious process - Bicarb 1300 TID, Tacro 2mg BID (level reviewed 04/06 - 1.8), Prednisone 5mg daily, Mycophenolate 360mg BID - Torsemide 40mg daily Wounds to bilateral lower feet - wound care consult appreciated: 04/04 reviewed - honey gel, order foam, offloading heel protectors Insulin-dependent Diabetes mellitus type 2 with hyperglycemia - glucose monitoring + LD SSI ordered 04/05 Folate deficiency Hypertension Dyslipidemia - Continue amlodipine 10 mg daily, carvedilol 25 mg twice daily, clonidine 0.1 mg twice daily, - Continue ASA 81mg daily, atorvastatin 10mg HS - Continue folic acid 1mg daily CODE STATUS: Full code DVT prophylaxis: Heparin Anticipated discharge date: 24-[address]: Home with palliative care versus returning to long term facility Objective - Vital Signs Vital signs: Vital Signs Temp 97.4 F L 04/06/23 07:57 Pulse 74 04/06/23 07:57 Resp 17 04/06/23 07:57 BP 107/75 04/06/23 07:57 Pulse Ox 95 04/06/23 07:57 FiO2 Intake & Output 04/05/23 04/06/23 04/06/23 18:59 06:59 18:59 Intake Total 800 Output Total 435 Balance 365 Weight 74.843 kg Intake: Hemodialysis 800 Output: Hemodialysis 435 Other: Voiding Method Diaper Diaper Diaper # Voids 0 1 - Labs CBC & Chem 7: 04/04/23 01:30 04/04/23 01:14 Labs: Abnormal Lab Results - Last 24 Hours (Table) 04/04/23 04/05/23 04/05/23 Range/Units 06:21 13:15 16:31 POC Glucose (mg/dL) 116 H 153 H (70-110) mg/dL Tacrolimus 1.8 L (5.0-20.0) ng/mL 04/05/23 04/06/23 04/06/23 Range/Units 21:44 08:37 11:48 POC Glucose (mg/dL) 159 H 160 H 179 H (70-110) mg/dL Tacrolimus (5.0-20.0) ng/mL Microbiology - Last 24 Hours (Table) 04/04/23 11:45 Urine Culture - Final Urine,Catheterized
[2023-04-06 17:23] LABS: Glucose,Whole Blood 145 mg/dL (70-110)
[2023-04-06] MEDS: ATORVASTATIN 10 MG TAB PO SCH (20:15)
[2023-04-06 20:41] LABS: Glucose,Whole Blood 165 mg/dL (70-110)
[2023-04-07] MEDS: HYDROmorphone 0.5 MG/0.5 ML SYRINGE IVP PRN ×4 (03:41→21:02)
[2023-04-07] MEDS: SODIUM CHLORIDE 0.9% 1,000 ML IV SCH (05:01)
[2023-04-07 06:00] LABS: Glucose,Whole Blood 150 mg/dL (70-110)
[2023-04-07] MEDS: INSULIN ASPART (NovoLOG) 100 UNIT/ML VIAL SQ SCH ×3 (06:46→17:35)
[2023-04-07] MEDS ORDERED: MIDODRINE 5 MG TAB PO STA (09:43)
[2023-04-07] MEDS: carvediloL 12.5 MG TAB PO SCH ×2 (10:03→17:34)
[2023-04-07] MEDS: SODIUM BICARBONATE TAB 650 MG TAB PO SCH ×3 (10:03→17:34)
[2023-04-07] MEDS: predniSONE 5 MG TAB PO SCH (10:03)
[2023-04-07] MEDS: FOLIC ACID 1 MG TAB PO SCH (10:03)
[2023-04-07] MEDS: MYCOPHENOLATE SODIUM DR 180 MG TABLET.DR PO SCH ×2 (10:03→17:34)
[2023-04-07] MEDS: ASPIRIN 81 MG PO SCH (10:03)
[2023-04-07] MEDS: amLODIPine 5 MG TAB PO SCH (10:03)
[2023-04-07] MEDS: TACROLIMUS 1 MG CAP PO SCH ×2 (10:03→17:34)
[2023-04-07] MEDS: THIAMINE 100 MG TAB PO SCH ×2 (10:04→17:35)
[2023-04-07] MEDS: TORSEMIDE 20 MG TAB PO SCH (10:04)
[2023-04-07] MEDS: FAMOTIDINE 20 MG TAB PO SCH (10:04)
[2023-04-07 10:11] LABS: Anisocytosis Slight; Basophils % (A) 0 %; Eosinophils % (A) 0 %; HCT 30.2 % (34.0-46.0); HGB 8.7 gm/dL (11.4-16.0); Hypochromasia Marked; Lymphocytes # (A) 1.1 k/uL (1.0-4.8); Lymphocytes % (A) 9 %; MCH 27.7 pg (25.0-35.0); MCHC 28.8 g/dL (31.0-37.0); Macrocytosis Slight; Mean Platelet Volume 9.6; Monocytes # (A) 0.8 k/uL (0-1.0); Monocytes % (A) 6 %; Neutrophils # (A) 9.9 k/uL (1.3-7.7); Neutrophils % (A) 84 %; Platelet Count 175 k/uL (150-450); RBC 3.15 m/uL (3.80-5.40); RDW 18.5 % (11.5-15.5); WBC 11.9 k/uL (3.8-10.6)
--- NOTE | 2023-04-07 11:27 | P.PN ---
Subjective Progress Note Date: 04/07/23 Hospital Course: Patient is a very pleasant 72 -year-old female with a past medical history of renal transplant in 2016 currently with ESRD on dialysis //tue, hypertension, dyslipidemia, and insulin-dependent diabetes mellitus . Patient presented to the emergency department via EMS from home with a chief complaint of general weakness and burning with urination. Patient was in rehab at [facility] and was reportedly discharged home with her on Tuesday04/02/23, states that her is disabled and unable to help her very much and she believes she is still too weak to independently care for herself and needs to return to rehab. Patient underwent full evaluation in the emergency department. Vital signs upon arrival show blood pressure 147/76, heart rate 92, respiratory rate 18, temp 99.7F, SpO2 100% on room air. Labs completed and reviewed. CBC showing a stable normocytic anemia with hemoglobin of 8.9. Coagulation profile showing elevated PT of 12.8 and INR 1.2. BMP showing sodium 134, bicarb 21, BUN 13, creatinine 1.87, and GFR of 26. Liver profile unremarkable. Magnesium slightly low 1.7. Troponin elevated at 0.047 with repeat troponin is 0.043. TSH normal findings at 1.940. EKG completed showing normal sinus rhythm at 85 bpm with no significant T-wave or ST abnormalities showing no signs of acute ischemia. Patient was initially admitted to [facility] hospitalist group on 04/03/23 at 11:10 PM. We were notified of this admission at 7:49 AM on 04/04/23. Subjective: Patient is confused again today, but appears comfortable. No fevers, chills, pain, dysuria. Physical exam: Gen: awake, alert HEENT: normocephalic, atraumatic, good hearing acuity, moist mucous membranes Resp: good air exchange, breathing comfortably with no accessory muscle use CVS: good distal perfusion x 4, GI: soft, NTTP, ND : no SPT, no CVAT, fox catheter not present MSK: no pitting edema, no clubbing Neuro: non-focal, moving all extremities Psych: cooperative, euthymic mood Assessment and Plan of Care: Generalized weakness Dysuria Encephalopathy, metabolic - orthostatics twice daily - IVF: NS @ 20cc/hr - PT/OT consulted - r/o UTI - UA with small LE, 2+ protein; UCx is negative - BCx pending Renal transplant recipient currently with ESRD on dialysis T/Th?Sat Troponin elevation, chronic and secondary to ESRD and not consistent with acute coronary syndrome Anemia of chronic disease, secondary to chronic kidney disease - nephrology consulted, appreciate recs: 04/05 discussed -obtain BCx to r/o infectious process - Bicarb 1300 TID, Tacro 2mg BID (level reviewed 04/06 - 1.8), Prednisone 5mg daily, Mycophenolate 360mg BID - Torsemide 40mg daily Wounds to bilateral lower feet - wound care consult appreciated: 04/04 reviewed - honey gel, order foam, offloading heel protectors Insulin-dependent Diabetes mellitus type 2 with hyperglycemia - glucose monitoring + LD SSI ordered 04/05 Folate deficiency Hypertension Dyslipidemia - Continue amlodipine 10 mg daily, carvedilol 25 mg twice daily - Continue ASA 81mg daily, atorvastatin 10mg HS - Continue folic acid 1mg daily CODE STATUS: Full code DVT prophylaxis: Heparin Anticipated discharge date: 24-[address]: Home with palliative care versus returning to [facility] facility Objective - Vital Signs Vital signs: Vital Signs Temp 97.7 F 04/07/23 07:02 Pulse 91 04/07/23 08:00 Resp 18 04/07/23 08:00 BP 130/66 04/07/23 07:02 Pulse Ox 100 04/07/23 01:32 FiO2 Intake & Output 04/06/23 04/07/23 04/07/23 18:59 06:59 18:59 Other: Voiding Method Diaper Diaper Diaper # Voids 0 # Bowel Movements 0 - Labs CBC & Chem 7: 04/07/23 08:55 04/04/23 01:14 Labs: Abnormal Lab Results - Last 24 Hours (Table) 04/06/23 04/06/23 04/06/23 Range/Units 11:48 17:22 20:38 WBC (3.8-10.6) k/uL RBC (3.80-5.40) m/uL Hgb (11.4-16.0) gm/dL Hct (34.0-46.0) % MCHC (31.0-37.0) g/dL RDW (11.5-15.5) % Neutrophils # (1.3-7.7) k/uL POC Glucose (mg/dL) 179 H 145 H 165 H (70-110) mg/dL 04/07/23 04/07/23 Range/Units 05:57 08:55 WBC 11.9 H (3.8-10.6) k/uL RBC 3.15 L (3.80-5.40) m/uL Hgb 8.7 L (11.4-16.0) gm/dL Hct 30.2 L (34.0-46.0) % MCHC 28.8 L (31.0-37.0) g/dL RDW 18.5 H (11.5-15.5) % Neutrophils # 9.9 H (1.3-7.7) k/uL POC Glucose (mg/dL) 150 H (70-110) mg/dL
[2023-04-07 11:39] LABS: Glucose,Whole Blood 106 mg/dL (70-110)
--- NOTE | 2023-04-07 11:47 | P.PN ---
Subjective Patient is seen in follow-up for end-stage renal disease. She is maintained on hemodialysis on Tuesday schedule via a permacath. Seen while undergoing hemodialysis. Blood pressure labile. Patient confused. Not taking oral meds. Vital signs are stable. General: No acute distress. HEENT: Head exam is unremarkable. LUNGS: No audible rhonchi or wheezes. HEART: Rate and Rhythm are regular. ABDOMEN: Nontender. EXTREMITITES: No edema. Objective - Vital Signs Vital signs: Vital Signs Temp 97.7 F 04/07/23 07:02 Pulse 91 04/07/23 08:00 Resp 18 04/07/23 08:00 BP 130/66 04/07/23 07:02 Pulse Ox 100 04/07/23 01:32 FiO2 Intake & Output 04/06/23 04/07/23 04/07/23 18:59 06:59 18:59 Other: Voiding Method Diaper Diaper Diaper # Voids 0 # Bowel Movements 0 - Labs CBC & Chem 7: 04/07/23 08:55 04/04/23 01:14 Labs: Abnormal Lab Results - Last 24 Hours (Table) 04/06/23 04/06/23 04/06/23 Range/Units 11:48 17:22 20:38 WBC (3.8-10.6) k/uL RBC (3.80-5.40) m/uL Hgb (11.4-16.0) gm/dL Hct (34.0-46.0) % MCHC (31.0-37.0) g/dL RDW (11.5-15.5) % Neutrophils # (1.3-7.7) k/uL POC Glucose (mg/dL) 179 H 145 H 165 H (70-110) mg/dL 04/07/23 04/07/23 Range/Units 05:57 08:55 WBC 11.9 H (3.8-10.6) k/uL RBC 3.15 L (3.80-5.40) m/uL Hgb 8.7 L (11.4-16.0) gm/dL Hct 30.2 L (34.0-46.0) % MCHC 28.8 L (31.0-37.0) g/dL RDW 18.5 H (11.5-15.5) % Neutrophils # 9.9 H (1.3-7.7) k/uL POC Glucose (mg/dL) 150 H (70-110) mg/dL Assessment and Plan Plan: Assessment: 1. End-stage renal disease maintained on hemodialysis Tuesday schedule via permacath. 2. Status post donor renal transplant in 2015. 3. Chronic systolic CHF ejection fraction of 40% with mild to moderate mitral regurgitation and moderate tricuspid regurgitation. 4. Volume overload. Improved. 5. Anemia of chronic kidney disease. Iron replete. On Aranesp. 6. Metabolic acidosis secondary to chronic kidney disease and GI losses. On oral bicarb. Expect further improvement postdialysis. 7. Hypertension with chronic kidney disease. Controlled. Plan: Currently seen while undergoing hemodialysis. Maintain torsemide. Maintain antirejection medications. Prograf level 1.8 dated 04/04/2023. Increased dose of Prograf. Hold amlodipine for systolic blood pressure less than 120. Follow-up cultures. Avoid morphine due to ESRD. Okay to use Dilaudid if needed. Check CT of the head. Check cultures from dialysis catheter as well.
[2023-04-07] MEDS: HEPARIN SODIUM,PORCINE 5,000 UNIT/ML 1 ML VIAL SQ SCH ×2 (14:47→21:47)
--- NOTE | 2023-04-07 15:03 | CT ---
EXAMINATION TYPE: CT brain wo con DATE OF EXAM: 04/07/2023 COMPARISON: 03/02/2023 INDICATION: confusion DLP: 1196.8 mGycm, Automated exposure control for dose reduction was used. CONTRAST: None CT of the brain is performed utilizing 3 mm thick sections through the posterior fossa and 3 mm thick sections through the remaining calvarium. Study is performed within 24 hours of arrival to the hosp ital. No abnormal hyperdensity is present to suggest an acute intracranial hemorrhage. No mass lesion is evident. No acute infarcts are evident. Periventricular white matter hypodensity, likely on the basis of chron ic white matter ischemic changes. Old lacunar infarct within the left basal ganglion is present. Ventricles and sulci are slightly prominent for the patient age. Paranasal sinuses and mastoid air cells within the [id number] are clear. IMPRESSION: 1. No acute intracranial process. Follow-up MRI can be performed as clinically indicated. 2. Periventricular white matter hypodensity, likely on the basis of chronic white matter ischemic nereida nges.
[2023-04-07 16:21] LABS: BUN/Creat Ratio 7.17 Ratio (12.00-20.00); Blood Urea Nitrogen 20.8 mg/dL (9.0-27.0); Carbon Dioxide 25.3 mmol/L (21.6-31.8); Chloride 96 mmol/L (96-109); Glucose 161 mg/dL (70-110); Magnesium 1.8 mg/dL (1.5-2.4); Potassium 3.6 mmol/L (3.5-5.5); Sodium 137 mmol/L (135-145)
[2023-04-07 16:53] LABS: Glucose,Whole Blood 115 mg/dL (70-110)
[2023-04-07] MEDS: ATORVASTATIN 10 MG TAB PO SCH (21:47)
[2023-04-07 21:50] LABS: Glucose,Whole Blood 103 mg/dL (70-110)
[2023-04-08] MEDS ORDERED: FUROSEMIDE 10 MG/ML 4 ML VIAL IV STA (00:04)
[2023-04-08] MEDS: HYDROmorphone 0.5 MG/0.5 ML SYRINGE IVP PRN ×4 (00:46→22:36)
[2023-04-08] MEDS: SODIUM CHLORIDE 0.9% 1,000 ML IV SCH (01:13)
--- NOTE | 2023-04-08 02:11 | XR ---
EXAM: XR Chest, 1 View CLINICAL HISTORY: ITS.REASON XR Reason: Potential fluid TECHNIQUE: Frontal view of the chest. COMPARISON: No relevant prior studies available. IMPRESSION: Mild right pleural effusion.
[2023-04-08 06:01] LABS: Glucose,Whole Blood 100 mg/dL (70-110)
[2023-04-08] MEDS: INSULIN ASPART (NovoLOG) 100 UNIT/ML VIAL SQ SCH ×3 (06:19→16:42)
[2023-04-08] MEDS: amLODIPine 5 MG TAB PO SCH (08:55)
[2023-04-08] MEDS: HEPARIN SODIUM,PORCINE 5,000 UNIT/ML 1 ML VIAL SQ SCH ×2 (08:56→22:38)
[2023-04-08] MEDS: TACROLIMUS 1 MG CAP PO SCH ×2 (08:56→17:11)
[2023-04-08] MEDS: ASPIRIN 81 MG PO SCH (08:57)
[2023-04-08] MEDS: THIAMINE 100 MG TAB PO SCH ×2 (08:57→17:10)
[2023-04-08] MEDS: carvediloL 12.5 MG TAB PO SCH ×3 (08:58→17:10)
[2023-04-08] MEDS: SODIUM BICARBONATE TAB 650 MG TAB PO SCH ×3 (08:58→17:10)
[2023-04-08] MEDS: FAMOTIDINE 20 MG TAB PO SCH (08:58)
[2023-04-08] MEDS: FOLIC ACID 1 MG TAB PO SCH (08:58)
[2023-04-08] MEDS: predniSONE 5 MG TAB PO SCH (08:58)
[2023-04-08] MEDS: TORSEMIDE 20 MG TAB PO SCH (08:58)
[2023-04-08] MEDS: MYCOPHENOLATE SODIUM DR 180 MG TABLET.DR PO SCH (08:59)
[2023-04-08 11:35] LABS: Glucose,Whole Blood 120 mg/dL (70-110)
--- NOTE | 2023-04-08 11:37 | P.PN ---
Subjective Patient is seen in follow-up for end-stage renal disease. She is maintained on hemodialysis on Tuesday schedule via a permacath. Completed hemodialysis yesterday. Hemodynamically stable. Working with physical therapy. Quite weak. Vital signs are stable. General: No acute distress. HEENT: Head exam is unremarkable. LUNGS: No audible rhonchi or wheezes. HEART: Rate and Rhythm are regular. ABDOMEN: Nontender. EXTREMITITES: No edema. Objective - Vital Signs Vital signs: Vital Signs Temp 97.4 F L 04/08/23 02:28 Pulse 56 L 04/08/23 07:00 Resp 17 04/08/23 07:00 BP 125/72 04/08/23 07:00 Pulse Ox 97 04/08/23 07:00 FiO2 Intake & Output 04/07/23 04/08/23 04/08/23 18:59 06:59 18:59 Intake Total 700 10 Output Total 500 Balance 200 10 Intake: IV 10 Invasive Line 1 10 Hemodialysis 700 Output: Urine 0 Stool 0 Hemodialysis 500 Other: Voiding Method Diaper Diaper Diaper # Voids 0 # Bowel Movements 0 1 - Labs CBC & Chem 7: 04/07/23 08:55 04/07/23 08:55 Labs: Abnormal Lab Results - Last 24 Hours (Table) 04/07/23 04/07/23 Range/Units 08:55 16:51 Anion Gap 15.70 H (4.00-12.00) mmol/L Creatinine 2.9 H (0.6-1.5) mg/dL Est GFR (CKD-EPI) 17 L (>=60) BUN/Creatinine Ratio 7.17 L (12.00-20.00) Ratio Glucose 161 H (70-110) mg/dL POC Glucose (mg/dL) 115 H (70-110) mg/dL Microbiology - Last 24 Hours (Table) 04/07/23 12:38 Blood Culture Gram Stain - Preliminary Blood Assessment and Plan Plan: Assessment: 1. End-stage renal disease maintained on hemodialysis Tuesday schedule via permacath. 2. Status post donor renal transplant in 2015. 3. Chronic systolic CHF ejection fraction of 40% with mild to moderate mitral regurgitation and moderate tricuspid regurgitation. 4. Volume overload. Improved. 5. Anemia of chronic kidney disease. Iron replete. On Aranesp. 6. Metabolic acidosis secondary to chronic kidney disease and GI losses. On oral bicarb. Improved postdialysis. 7. Hypertension with chronic kidney disease. Controlled. 8. Gram-negative bacteremia on antibiotics. Plan: Hemodialysis tomorrow. Maintain torsemide. Hold CellCept due to bacteremia. Prograf level 1.8 dated 04/04/2023. Increased dose of Prograf. Hold amlodipine for systolic blood pressure less than 120. Repeat blood cultures. Consult infectious disease. Will discuss with infectious disease if permacath is to be removed. Avoid morphine due to ESRD. Okay to use Dilaudid if needed.
--- NOTE | 2023-04-08 12:28 | P.PN ---
Subjective Progress Note Date: 04/08/23 Hospital Course: Patient is a very pleasant 72 -year-old female with a past medical history of renal transplant in 2016 currently with ESRD on dialysis //tue, hypertension, dyslipidemia, and insulin-dependent diabetes mellitus . Patient presented to the emergency department via EMS from home with a chief complaint of general weakness and burning with urination. Patient was in rehab at [facility] and was reportedly discharged home with her on Tuesday04/02/23, states that her is disabled and unable to help her very much and she believes she is still too weak to independently care for herself and needs to return to rehab. Patient underwent full evaluation in the emergency department. Vital signs upon arrival show blood pressure 147/76, heart rate 92, respiratory rate 18, temp 99.7F, SpO2 100% on room air. Labs completed and reviewed. CBC showing a stable normocytic anemia with hemoglobin of 8.9. Coagulation profile showing elevated PT of 12.8 and INR 1.2. BMP showing sodium 134, bicarb 21, BUN 13, creatinine 1.87, and GFR of 26. Liver profile unremarkable. Magnesium slightly low 1.7. Troponin elevated at 0.047 with repeat troponin is 0.043. TSH normal findings at 1.940. EKG completed showing normal sinus rhythm at 85 bpm with no significant T-wave or ST abnormalities showing no signs of acute ischemia. Patient was initially admitted to [facility] hospitalist group on 04/03/23 at 11:10 PM. We were notified of this admission at 7:49 AM on 04/04/23. Subjective: Patient is confused again today, but appears comfortable. No fevers, chills, pain, dysuria. BCx showing Klebsiella, pansensitive. Physical exam: Gen: awake, alert HEENT: normocephalic, atraumatic, good hearing acuity, moist mucous membranes Resp: good air exchange, breathing comfortably with no accessory muscle use CVS: good distal perfusion x 4, GI: soft, NTTP, ND : no SPT, no CVAT, fox catheter not present MSK: no pitting edema, no clubbing Neuro: non-focal, moving all extremities Psych: cooperative, euthymic mood Assessment and Plan of Care: Generalized weakness Klebsiella bacteremia Encephalopathy, metabolic - orthostatics twice daily - IVF: NS @ 20cc/hr - PT/OT consulted -started ceftriaxone 2g q24h -ID consult - BCx pending Renal transplant recipient currently with ESRD on dialysis T/Th?Sat Troponin elevation, chronic and secondary to ESRD and not consistent with acute coronary syndrome Anemia of chronic disease, secondary to chronic kidney disease - nephrology consulted, appreciate recs: 04/05 discussed -obtain BCx to r/o infectious process - Bicarb 1300 TID, Tacro 2mg BID (level reviewed 04/06 - 1.8), Prednisone 5mg daily, Mycophenolate 360mg BID - Torsemide 40mg daily Wounds to bilateral lower feet - wound care consult appreciated: 04/04 reviewed - honey gel, order foam, offloading heel protectors Insulin-dependent Diabetes mellitus type 2 with hyperglycemia - glucose monitoring + LD SSI ordered 04/05 Folate deficiency Hypertension Dyslipidemia - Continue amlodipine 10 mg daily, carvedilol 25 mg twice daily - Continue ASA 81mg daily, atorvastatin 10mg HS - Continue folic acid 1mg daily CODE STATUS: Full code DVT prophylaxis: Heparin Anticipated discharge date: 24-[address]: Home with palliative care versus returning to [facility] Objective - Vital Signs Vital signs: Vital Signs Temp 97.4 F L 04/08/23 02:28 Pulse 56 L 04/08/23 07:00 Resp 17 04/08/23 07:00 BP 125/72 04/08/23 07:00 Pulse Ox 97 04/08/23 07:00 FiO2 Intake & Output 04/07/23 04/08/23 04/08/23 18:59 06:59 18:59 Intake Total 700 10 Output Total 500 Balance 200 10 Intake: IV 10 Invasive Line 1 10 Hemodialysis 700 Output: Urine 0 Stool 0 Hemodialysis 500 Other: Voiding Method Diaper Diaper Diaper # Voids 0 # Bowel Movements 0 1 - Labs CBC & Chem 7: 04/07/23 08:55 04/07/23 08:55 Labs: Abnormal Lab Results - Last 24 Hours (Table) 04/07/23 04/07/23 04/08/23 Range/Units 08:55 16:51 11:33 Anion Gap 15.70 H (4.00-12.00) mmol/L Creatinine 2.9 H (0.6-1.5) mg/dL Est GFR (CKD-EPI) 17 L (>=60) BUN/Creatinine Ratio 7.17 L (12.00-20.00) Ratio Glucose 161 H (70-110) mg/dL POC Glucose (mg/dL) 115 H 120 H (70-110) mg/dL Microbiology - Last 24 Hours (Table) 04/07/23 12:38 Blood Culture Gram Stain - Preliminary Blood
--- NOTE | 2023-04-08 14:19 | CDI ---
Documentation Clarification Form Date: 04/08/2023 01:55:16 PM From: Christin Hopkins RN CCDS Phone: [phone] Admit Date: 04/03/2023 11:10:00 PM Patient Name: Mary Barrientos Visit Number: [id number] Discharge Date: ATTENTION: The Clinical Documentation Specialists (CDI) and [facility] Coding Staff appreciate your assistance in clarifying documentation. Please respond to the clarification below the line at the bottom and electronically sign. The CDI & [facility] Coding staff will review the response and follow-up if needed. Please note: Queries are made part of the Legal Health Record. If you have any questions, please contact the author of this message via ITS. Dr. Leandro Sotelo There is documentation of Klebsiella bacteremia, 04/08, Medicine note. Bacteremia is considered a lab finding. Additional clarification regarding bacteremia is requested. Patient history/risk factors:72-year-old female presents to the ED fore weakness and unable to care for herself. Medical history: ESRD, renal transplant, Anemia of chronic disease, wounds to bilateral feet and DM2. 04/04, H&P. Clinical Indicators: WBC, 04/04: 7.5 Left Shift, 04/04: 5.0 Blood Culture, 04/07: Gram negative bacilli Treatment: 04/03 0.9ns 1L IVPB Bolus Antibiotics: 04/08 Ceftriaxone ivpb q24 Please provide additional clarification regarding the etiology/cause and/or clinical significance of the bacteremia: [x] Weakness secondary to bacteremia related to sepsis [ ] Weakness related to Bacteremia is due to infectious process, please specify: [ ] Bacteremia is not clinically significant [ ] Other, please specify [ ] Unable to determine (Template Last Revised: August 2020) MTDD
[2023-04-08 16:40] LABS: Glucose,Whole Blood 123 mg/dL (70-110)
[2023-04-08 19:17] LABS: Glucose,Whole Blood 165 mg/dL (70-110)
--- NOTE | 2023-04-08 21:38 | P.CONS ---
History of Present Illness - Reason for Consult Consult date: 04/08/23 - History of Present Illness Patient is a 72-year-old -German female with a comorbidities including diabetes mellitus hypertension hyperlipidemia end-stage renal disease on hemodialysis Tuesday via permacath patient presenting to the [facility] ago with concerns for unable to care of self at home in this patient who recently signed out AGAINST MEDICAL ADVICE from the local care home on presentation to the hospital patient did have no history of paranoia. Abdominal pain has been recorded subsequently patient did not have any blood cultures on admission she did have blood cultures done yesterday as apparently the patient was looking mildly decreased patient was noticed to have elevated white count of 11.9 that is not coming back positive with gram-negative bacilli that has prompted this infectious disease consultation patient herself evaluated by history she has been able to evaluate the denies any pain Abdominal area no nausea minimal diarrhea has been reported denies any chest pain shortness of breath or cough, patient did have bilateral heel pressure ulcer but no significant redness or foul-smelling drainage has been reported, patient hardly makes any Urine patient did have a UA on admission was negative, Past Medical History Past Medical History: No Reported History, Asthma, Diabetes Mellitus, Dialysis, Eye Disorder, Hyperlipidemia, Hypertension, Renal Disease, Skin Disorder Additional Past Medical History / Comment(s): history of covid, IDDM type I, neuropathy bilateral legs/feet, ESRD with past peritoneal/hemodialysis then in 2016 had renal transplant, UTI with sepsis, IBS, benign colon polyps, chronic low back pain, migraines, R eye retinal bleed with injections, L eye detached retina with surgery, anemia. 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 History of Any Multi-Drug Resistant Organisms: ESBL, MRSA Year Discovered:: 2011 approx ESBL- peritoneal dialysis cath(PREVIOUSLY CHARTED) MDRO Source:: ESBL-peritoneal dialysis cath Past Surgical History: Cholecystectomy, Hysterectomy, Orthopedic Surgery Additional Past Surgical History / Comment(s): Peritoneal dialysis cath since removed, hemodialysis cath since removed, 2016 renal transplant, EGD, colonoscopies/benign polypectomy, bilateral eye cataract removals, L eye detached retinal surgery, L knee arthroscopy Past Anesthesia/Blood Transfusion Reactions: No Reported Reaction Additional Past Anesthesia/Blood Transfusion Reaction / Comm: has had a hard time coming out of anesthesia Past Psychological History: Anxiety Additional Psychological History / Comment(s): 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 She is independent. Smoking Status: Former smoker Past Alcohol Use History: None Reported Additional Past Alcohol Use History / Comment(s): Pt started smoking 1979,quit smoking 1989, smoked 3 packs per week. Past Drug Use History: None Reported - Past Family History Mother History Unknown: Yes Additional Family Medical History / Comment(s): Mother of poisoning when pt was 11 yrs old. Father Family Medical History: Vascular Disorder Additional Family Medical History / Comment(s): brain aneurysm Medications and Allergies Home Medications Medication Instructions Recorded Confirmed Type Atorvastatin Calcium [Lipitor] 10 mg PO HS@2100 08/11/16 04/04/23 History Sodium Bicarbonate Tab 1,300 mg PO TID@0800,1200,1700 08/11/16 04/04/23 History amLODIPine [Norvasc] 10 mg PO DAILY@0800 08/11/16 04/04/23 History predniSONE 5 mg PO DAILY@0800 08/25/17 04/04/23 History Mycophenolate Sodium [Mycophenolic 360 mg PO BID@0800,1700 04/25/20 04/04/23 History Acid] Ergocalciferol [Vitamin D2 (1250 1,250 mcg PO FR@0800 10/27/21 04/04/23 History Mcg = 58824 Iu)] Famotidine 40 mg PO DAILY@0900 10/27/21 04/04/23 History carvediloL [Coreg] 25 mg PO BID@0800,1700 10/27/21 04/04/23 History Albuterol Inhaler [Ventolin Hfa 2 puff INHALATION RT-QID PRN 11/24/22 04/04/23 History Inhaler] Aspirin EC [Ecotrin Low Dose] 81 mg PO DAILY@0800 11/24/22 04/04/23 History Docusate [Colace] 100 mg PO DAILY PRN 11/24/22 04/04/23 History Thiamine [Vitamin B-1] 250 mg PO BID@0800,1700 11/24/22 04/04/23 History Diphenox-Atrop 2.5-0.025 mg 1 tab PO TID PRN #3 tab 03/11/23 04/04/23 Rx [Lomotil] Acetaminophen Tab [Tylenol] 650 mg PO Q4H PRN 03/21/23 04/04/23 History Folic Acid 1 mg PO DAILY@0800 03/21/23 04/04/23 History HYDROcodone/APAP 5-325MG [[place] 1 tab PO Q6H PRN 03/21/23 04/04/23 History 5-325] INSULIN ASPART (NovoLOG) [NovoLOG See Protocol SQ 03/21/23 04/04/23 History (formulary)] ACHS@07,11,1630,2130 Eduardo Packet 1 packet PO DAILY@1700 03/21/23 04/04/23 History Eduardo Packet 1 packet PO SUMOWEFR@0800 03/21/23 04/04/23 History Eduardo Packet 1 packet PO TUTHSA@1200 03/21/23 04/04/23 History Magic Cup 1 dose PO BID@1200,1700 03/21/23 04/04/23 History Magnesium Hydroxide [Milk of 7,200 mg PO DAILY PRN 03/21/23 04/04/23 History Magnesia Concentrate] Na Phos,M-B/Na Phos,Di-Ba [Fleet 133 ml RECTAL DAILY PRN 03/21/23 04/04/23 History Adult] Tacrolimus [Prograf] 2 mg PO BID@0800,1700 03/21/23 04/04/23 History Torsemide [Demadex] 10 mg PO DAILY@0800 03/21/23 04/04/23 History bisacodyL [Dulcolax] 10 mg RECTAL DAILY PRN 03/21/23 04/04/23 History cloNIDine HCL [Catapres] 0.1 mg PO BID@0800,1700 03/21/23 04/04/23 History Collagenase [Santyl Ointment] 1 applic TOPICAL DAILY 04/04/23 04/04/23 History Maalox Plus 30 ml PO Q6H PRN 04/04/23 04/04/23 History Melatonin 1 mg PO HS 04/04/23 04/04/23 History Allergies Allergy/AdvReac Type Severity Reaction Status Date / Time hydralazine [From Apresoline] Allergy Rash/Hives Verified 04/04/23 13:10 Iodinated Contrast Media Allergy Unknown Verified 04/04/23 13:10 [Iodinated Contrast- Oral and IV Dye] meperidine [From Demerol] Allergy Anaphylaxis Verified 04/04/23 13:10 Penicillins Allergy Rash/Hives Verified 04/04/23 13:10 Physical Exam Vitals: Vital Signs Temp Pulse Resp BP Pulse Ox 04/08/23 07:00 56 L 17 125/72 97 04/08/23 02:28 97.4 F L 78 20 124/69 100 04/07/23 19:34 97.3 F L 74 20 147/57 95 04/07/23 12:25 97.4 F L 81 16 126/59 Intake and Output 04/07/23 04/08/23 04/08/23 22:59 06:59 14:59 Intake Total 10 Output Total 0 Balance 0 10 Intake: IV 10 Invasive Line 1 10 Output: Urine 0 Stool 0 Other: Voiding Method Diaper Diaper # Bowel Movements 1 Results CBC & Chem 7: 04/10/23 06:23 04/09/23 07:54 Labs: Abnormal Lab Results - Last 24 Hours (Table) 04/07/23 04/07/23 04/08/23 Range/Units 08:55 16:51 11:33 Anion Gap 15.70 H (4.00-12.00) mmol/L Creatinine 2.9 H (0.6-1.5) mg/dL Est GFR (CKD-EPI) 17 L (>=60) BUN/Creatinine Ratio 7.17 L (12.00-20.00) Ratio Glucose 161 H (70-110) mg/dL POC Glucose (mg/dL) 115 H 120 H (70-110) mg/dL Microbiology - Last 24 Hours (Table) 04/07/23 12:38 Blood Culture Gram Stain - Preliminary Blood Assessment and Plan Plan: 1-Patient with gram-negative bacteremia high clinical suspicion for possible permacatheter infection in this patient with no evidence of any abdominal tenderness on Examination and urine has been negative patient did have bilateral heel pressure ulcer with some necrotic tissue but no significant redness or foul-smelling drainage was noticed 2-blood culture has been repeated 3-patient benefit from discontinuation of the dialysis catheter scheduled for tomorrow after discussion with the institutional custodian and the tip should be sent for culture 4-patient to continue with Rocephin 2 g daily 5-Medihoney to the left heel pressure ulcer followed by moist dressing and keep the area of the pressure We will follow on clinical condition and cultures to further adjust medication if needed Thank you for this consultation we will follow the patient along with you Dictation was produced using [employer] dictation software. please excuse any gramma tical, word or spelling errors. Time with Patient: Greater than 30
[2023-04-08] MEDS: ATORVASTATIN 10 MG TAB PO SCH (22:38)
[2023-04-09] MEDS: SODIUM CHLORIDE 0.9% 1,000 ML IV SCH (03:57)
[2023-04-09 05:40] LABS: Glucose,Whole Blood 135 mg/dL (70-110)
[2023-04-09] MEDS: INSULIN ASPART (NovoLOG) 100 UNIT/ML VIAL SQ SCH ×3 (05:51→17:03)
[2023-04-09] MEDS: HYDROmorphone 0.5 MG/0.5 ML SYRINGE IVP PRN ×2 (06:08→17:22)
[2023-04-09 09:10] LABS: African American GFR (CKD) 24 (>60 ml/min/1.73 sqM)
[2023-04-09] MEDS: TORSEMIDE 20 MG TAB PO SCH (09:35)
[2023-04-09] MEDS: THIAMINE 100 MG TAB PO SCH ×2 (09:35→20:48)
[2023-04-09] MEDS: FAMOTIDINE 20 MG TAB PO SCH (09:35)
[2023-04-09] MEDS: carvediloL 12.5 MG TAB PO SCH ×2 (09:35→20:48)
[2023-04-09] MEDS: amLODIPine 5 MG TAB PO SCH (09:36)
[2023-04-09] MEDS: SODIUM BICARBONATE TAB 650 MG TAB PO SCH ×3 (09:36→20:48)
[2023-04-09] MEDS: ASPIRIN 81 MG PO SCH (09:36)
[2023-04-09] MEDS: predniSONE 5 MG TAB PO SCH (09:36)
[2023-04-09] MEDS: HEPARIN SODIUM,PORCINE 5,000 UNIT/ML 1 ML VIAL SQ SCH ×3 (09:36→20:49)
[2023-04-09] MEDS: FOLIC ACID 1 MG TAB PO SCH (09:36)
[2023-04-09] MEDS: TACROLIMUS 1 MG CAP PO SCH ×2 (09:37→20:49)
[2023-04-09 09:54] LABS: Anion Gap 10 mmol/L; Blood Urea Nitrogen 20 mg/dL (7-17); Calcium 8.9 mg/dL (8.4-10.2); Carbon Dioxide 23 mmol/L (22-30); Chloride 105 mmol/L (98-107); Glucose 155 mg/dL (74-99); Magnesium 1.8 mg/dL (1.6-2.3); Non-African American GFR(CKD) 20 (>60 ml/min/1.73 sqM); Potassium 3.8 mmol/L (3.5-5.1); Sodium 138 mmol/L (137-145)
--- NOTE | 2023-04-09 10:14 | P.PN ---
Subjective Progress Note Date: 04/09/23 Hospital Course: Patient is a very pleasant 72 -year-old female with a past medical history of renal transplant in 2016 currently with ESRD on dialysis //tue, hypertension, dyslipidemia, and insulin-dependent diabetes mellitus . Patient presented to the emergency department via EMS from home with a chief complaint of general weakness and burning with urination. Patient was in rehab at [facility] and was reportedly discharged home with her on Tuesday04/02/23, states that her is disabled and unable to help her very much and she believes she is still too weak to independently care for herself and needs to return to rehab. Patient underwent full evaluation in the emergency department. Vital signs upon arrival show blood pressure 147/76, heart rate 92, respiratory rate 18, temp 99.7F, SpO2 100% on room air. Labs completed and reviewed. CBC showing a stable normocytic anemia with hemoglobin of 8.9. Coagulation profile showing elevated PT of 12.8 and INR 1.2. BMP showing sodium 134, bicarb 21, BUN 13, creatinine 1.87, and GFR of 26. Liver profile unremarkable. Magnesium slightly low 1.7. Troponin elevated at 0.047 with repeat troponin is 0.043. TSH normal findings at 1.940. EKG completed showing normal sinus rhythm at 85 bpm with no significant T-wave or ST abnormalities showing no signs of acute ischemia. Patient was initially admitted to [facility] hospitalist group on 04/03/23 at 11:10 PM. We were notified of this admission at 7:49 AM on 04/04/23. Subjective: No fevers, chills, pain, dysuria. BCx showing Klebsiella, pansensitive. Physical exam: Gen: awake, alert HEENT: normocephalic, atraumatic, good hearing acuity, moist mucous membranes Resp: good air exchange, breathing comfortably with no accessory muscle use CVS: good distal perfusion x 4, GI: soft, NTTP, ND : no SPT, no CVAT, fox catheter not present MSK: no pitting edema, no clubbing Neuro: non-focal, moving all extremities Psych: cooperative, euthymic mood Assessment and Plan of Care: Generalized weakness Klebsiella bacteremia Encephalopathy, metabolic - orthostatics twice daily - IVF: NS @ 20cc/hr - PT/OT consulted -started ceftriaxone 2g q24h -ID consult appreciated - they would like to exchange dialysis catheter and send tip for culture - BCx showing pansensitive Klebsiella, repeat BCx pending Renal transplant recipient currently with ESRD on dialysis T/Th?Sat Troponin elevation, chronic and secondary to ESRD and not consistent with acute coronary syndrome Anemia of chronic disease, secondary to chronic kidney disease - nephrology consulted, appreciate recs: 04/05 discussed -obtain BCx to r/o infectious process - Bicarb 1300 TID, Tacro 2mg BID (level reviewed 04/06 - 1.8), Prednisone 5mg daily, Mycophenolate 360mg BID - Torsemide 40mg daily Wounds to bilateral lower feet - wound care consult appreciated: 04/04 reviewed - honey gel, order foam, offloading heel protectors Insulin-dependent Diabetes mellitus type 2 with hyperglycemia - glucose monitoring + LD SSI ordered 04/05 Folate deficiency Hypertension Dyslipidemia - Continue amlodipine 10 mg daily, carvedilol 25 mg twice daily - Continue ASA 81mg daily, atorvastatin 10mg HS - Continue folic acid 1mg daily CODE STATUS: Full code DVT prophylaxis: Heparin Anticipated discharge date: 24-[address]: Home with palliative care versus returning to residential facility Objective - Vital Signs Vital signs: Vital Signs Temp 98.1 F 04/09/23 01:19 Pulse 89 04/09/23 01:19 Resp 18 04/09/23 01:19 BP 150/68 04/09/23 01:19 Pulse Ox 95 04/09/23 01:19 FiO2 Intake & Output 04/08/23 04/09/23 04/09/23 18:59 06:59 18:59 Intake Total 70 Balance 70 Weight 74.843 kg Intake: IV 10 Invasive Line 1 10 Intake, IV Titration 60 Amount Sodium Chloride 0.9% 1, 10 000 ml @ 20 mls/hr IV . Q24H [facility] Rx#:[id number] cefTRIAXone 2 gm In 50 Sodium Chloride 0.9% 50 ml @ 100 mls/hr IVPB Q24HR [facility] Rx#:[id number] Other: Voiding Method Diaper Diaper # Voids 1 # Bowel Movements 1 - Labs CBC & Chem 7: 04/07/23 08:55 04/09/23 07:54 Labs: Abnormal Lab Results - Last 24 Hours (Table) 04/08/23 04/08/23 04/08/23 Range/Units 11:33 16:39 19:15 BUN (7-17) mg/dL Creatinine (0.52-1.04) mg/dL Glucose (74-99) mg/dL POC Glucose (mg/dL) 120 H 123 H 165 H (70-110) mg/dL 04/09/23 04/09/23 Range/Units 05:38 07:54 BUN 20 H (7-17) mg/dL Creatinine 2.32 H (0.52-1.04) mg/dL Glucose 155 H (74-99) mg/dL POC Glucose (mg/dL) 135 H (70-110) mg/dL Microbiology - Last 24 Hours (Table) 04/07/23 12:38 Blood Culture Gram Stain - Preliminary Blood Blood Culture - Preliminary Gram Neg Bacilli 04/07/23 00:04 Blood Culture - Preliminary Blood
--- NOTE | 2023-04-09 11:40 | P.PN ---
Subjective Patient is seen in follow-up for end-stage renal disease. She is maintained on hemodialysis on Tuesday schedule via a permacath. Scheduled for dialysis today. Hemodynamically stable. Confused. Vital signs are stable. General: No acute distress. HEENT: Head exam is unremarkable. LUNGS: No audible rhonchi or wheezes. HEART: Rate and Rhythm are regular. ABDOMEN: Nontender. EXTREMITITES: No edema. Objective - Vital Signs Vital signs: Vital Signs Temp 97.8 F 04/09/23 08:20 Pulse 85 04/09/23 08:20 Resp 18 04/09/23 08:20 BP 140/54 04/09/23 08:20 Pulse Ox 95 04/09/23 01:19 FiO2 Intake & Output 04/08/23 04/09/23 04/09/23 18:59 06:59 18:59 Intake Total 70 Balance 70 Weight 74.843 kg Intake: IV 10 Invasive Line 1 10 Intake, IV Titration 60 Amount Sodium Chloride 0.9% 1, 10 000 ml @ 20 mls/hr IV . Q24H [facility] Rx#:[id number] cefTRIAXone 2 gm In 50 Sodium Chloride 0.9% 50 ml @ 100 mls/hr IVPB Q24HR [facility] Rx#:[id number] Other: Voiding Method Diaper Diaper Diaper # Voids 1 # Bowel Movements 1 - Labs CBC & Chem 7: 04/07/23 08:55 04/09/23 07:54 Labs: Abnormal Lab Results - Last 24 Hours (Table) 04/08/23 04/08/23 04/09/23 Range/Units 16:39 19:15 05:38 BUN (7-17) mg/dL Creatinine (0.52-1.04) mg/dL Glucose (74-99) mg/dL POC Glucose (mg/dL) 123 H 165 H 135 H (70-110) mg/dL 04/09/23 Range/Units 07:54 BUN 20 H (7-17) mg/dL Creatinine 2.32 H (0.52-1.04) mg/dL Glucose 155 H (74-99) mg/dL POC Glucose (mg/dL) (70-110) mg/dL Microbiology - Last 24 Hours (Table) 04/07/23 12:38 Blood Culture Gram Stain - Preliminary Blood Blood Culture - Preliminary Gram Neg Bacilli 04/07/23 00:04 Blood Culture - Preliminary Blood Assessment and Plan Plan: Assessment: 1. End-stage renal disease maintained on hemodialysis Tuesday schedule via permacath. 2. Status post donor renal transplant in 2015. 3. Chronic systolic CHF ejection fraction of 40% with mild to moderate mitral regurgitation and moderate tricuspid regurgitation. 4. Volume overload. Improved. 5. Anemia of chronic kidney disease. Iron replete. On Aranesp. 6. Metabolic acidosis secondary to chronic kidney disease and GI losses. On oral bicarb. Improved postdialysis. 7. Hypertension with chronic kidney disease. Controlled. 8. Gram-negative bacteremia on antibiotics. Plan: Hemodialysis today. Discontinue dialysis catheter after dialysis treatment today. Discussed with infectious disease. Maintain torsemide. Hold CellCept due to bacteremia. Prograf level 1.8 dated 04/04/2023. Increased dose of Prograf. Hold amlodipine for systolic blood pressure less than 120. Follow-up repeat blood cultures. Avoid morphine due to ESRD. Okay to use Dilaudid if needed.
[2023-04-09 11:52] LABS: Glucose,Whole Blood 191 mg/dL (70-110)
[2023-04-09 16:59] LABS: Glucose,Whole Blood 127 mg/dL (70-110)
[2023-04-09 20:19] LABS: Glucose,Whole Blood 123 mg/dL (70-110)
[2023-04-09 20:36] LABS: Hepatitis B Surface AB- Quant 3.5 mIU/mL; Hepatitis B Surface Antigen Nonreactive
[2023-04-09] MEDS: ATORVASTATIN 10 MG TAB PO SCH (20:48)
[2023-04-10] MEDS: SODIUM CHLORIDE 0.9% 1,000 ML IV SCH ×2 (00:41→23:31)
[2023-04-10] MEDS: INSULIN ASPART (NovoLOG) 100 UNIT/ML VIAL SQ SCH ×3 (06:05→17:34)
[2023-04-10 07:42] LABS: Anisocytosis Slight; Basophils % (A) 0 %; Eosinophils # (A) 0.1 k/uL (0-0.7); Eosinophils % (A) 1 %; HCT 27.8 % (34.0-46.0); HGB 8.1 gm/dL (11.4-16.0); Hypochromasia Marked; Lymphocytes # (A) 0.7 k/uL (1.0-4.8); Lymphocytes % (A) 8 %; MCH 28.6 pg (25.0-35.0); MCHC 29.2 g/dL (31.0-37.0); MCV 97.9 fL (80.0-100.0); Macrocytosis Slight; Mean Platelet Volume 8.6; Monocytes # (A) 0.4 k/uL (0-1.0); Monocytes % (A) 5 %; Neutrophils # (A) 8.4 k/uL (1.3-7.7); Neutrophils % (A) 87 %; Platelet Count 137 k/uL (150-450); RBC 2.84 m/uL (3.80-5.40); RDW 18.3 % (11.5-15.5); WBC 9.7 k/uL (3.8-10.6)
--- NOTE | 2023-04-10 08:57 | P.PN ---
Subjective Progress Note Date: 04/09/23 Principal diagnosis: Bacteremia Patient is a 72-year-old -[place] female with a comorbidities including diabetes mellitus hypertension hyperlipidemia end-stage renal disease on hemodialysis Tuesday via permacath patient presenting to the hospital with concerns for unable to care of self at home, patient did have blood cultures came back positive with gram-negative bacilli concerning for possible dialysis catheter infection. On today's evaluation that is 04/09/2023 the patient is afebrile, the patient is pleasantly confused and not a very good historian she is breathing comfortably on room air no vomiting diarrhea or any other changes reported by the nursing staff. No CBC was done today creatinine is 2.32 blood culture with gram-negative bacill i repeat blood pressure for pending. Objective - Vital Signs Vital signs: Vital Signs Temp 98.1 F 04/09/23 20:19 Pulse 92 04/09/23 20:19 Resp 16 04/09/23 20:19 BP 127/63 04/09/23 20:19 Pulse Ox 95 04/09/23 20:19 FiO2 Intake & Output 04/09/23 04/09/23 04/10/23 06:59 18:59 05:59 Intake Total 400 Output Total 400 Balance 0 Intake: Hemodialysis 400 Output: Hemodialysis 400 Other: Voiding Method Diaper Diaper Diaper # Voids 1 - Exam GENERAL DESCRIPTION: Elderly female lying in bed in no distress RESPIRATORY SYSTEM: Unlabored breathing , decreased breath sounds at bases HEART: S1 S2 regular rate and rhythm ABDOMEN: Soft , no tenderness EXTREMITIES: No edema feet - Labs CBC & Chem 7: 04/10/23 06:23 04/09/23 07:54 Labs: Abnormal Lab Results - Last 24 Hours (Table) 04/09/23 04/09/23 04/09/23 Range/Units 05:38 07:54 11:48 BUN 20 H (7-17) mg/dL Creatinine 2.32 H (0.52-1.04) mg/dL Glucose 155 H (74-99) mg/dL POC Glucose (mg/dL) 135 H 191 H (70-110) mg/dL 04/09/23 04/09/23 Range/Units 16:57 20:17 BUN (7-17) mg/dL Creatinine (0.52-1.04) mg/dL Glucose (74-99) mg/dL POC Glucose (mg/dL) 127 H 123 H (70-110) mg/dL Microbiology - Last 24 Hours (Table) 04/07/23 00:04 Blood Culture - Preliminary Blood 04/07/23 12:38 Blood Culture Gram Stain - Preliminary Blood Blood Culture - Preliminary Gram Neg Bacilli Assessment and Plan (1) Bacteremia Current Visit: Yes Status: Acute Code(s): R78.81 - BACTEREMIA SNOMED Code(s): 0971860 (2) Unstageable pressure ulcer of left heel Current Visit: Yes Status: Acute Code(s): L89.620 - PRESSURE ULCER OF LEFT HEEL, UNSTAGEABLE SNOMED Code(s): 27961764871609466 Plan: 1-Patient with gram-negative bacteremia high clinical suspicion for possible permacatheter infection in this patient with no evidence of any abdominal tenderness on Examination and urine has been negative patient did have bilateral heel pressure ulcer with some necrotic tissue but no significant redness or foul-smelling drainage was noticed 2-blood culture has been repeated And are currently pending. 3vascular surgery evaluation for removal of the dialysis catheter after dialysis today and the tip should be sent for the culture. 4patient to continue with Rocephin and will monitor clinical course closely. 5continue local wound care to the left heel pressure ulcer with the Medihoney followed by moist dressing to keep the area of the pressure Dictation was produced using [employer] dictation software. please excuse any grammatical, word or spelling errors.
--- NOTE | 2023-04-10 08:59 | P.PN ---
Subjective Progress Note Date: 04/10/23 Hospital Course: Patient is a very pleasant 72 -year-old female with a past medical history of renal transplant in 2016 currently with ESRD on dialysis //tue, hypertension, dyslipidemia, and insulin-dependent diabetes mellitus . Patient presented to the emergency department via EMS from home with a chief complaint of general weakness and burning with urination. Patient was in rehab at [facility] and was reportedly discharged home with her on Tuesday04/02/23, states that her is disabled and unable to help her very much and she believes she is still too weak to independently care for herself and needs to return to rehab. Patient underwent full evaluation in the emergency department. Vital signs upon arrival show blood pressure 147/76, heart rate 92, respiratory rate 18, temp 99.7F, SpO2 100% on room air. Labs completed and reviewed. CBC showing a stable normocytic anemia with hemoglobin of 8.9. Coagulation profile showing elevated PT of 12.8 and INR 1.2. BMP showing sodium 134, bicarb 21, BUN 13, creatinine 1.87, and GFR of 26. Liver profile unremarkable. Magnesium slightly low 1.7. Troponin elevated at 0.047 with repeat troponin is 0.043. TSH normal findings at 1.940. EKG completed showing normal sinus rhythm at 85 bpm with no significant T-wave or ST abnormalities showing no signs of acute ischemia. Patient was initially admitted to [facility] hospitalist group on 04/03/23 at 11:10 PM. We were notified of this admission at 7:49 AM on 04/04/23. Subjective: No fevers, chills, pain, dysuria. BCx showing Klebsiella, pansensitive. Today, patient is refusing care at this time due to "not trusting the care staff." She continues to remain encephalopathic in my opinion and cannot articulate her concerns well at this time. Physical exam: Gen: awake, alert HEENT: normocephalic, atraumatic, good hearing acuity, moist mucous membranes Resp: good air exchange, breathing comfortably with no accessory muscle use CVS: good distal perfusion x 4, GI: soft, NTTP, ND : no SPT, no CVAT, fox catheter not present MSK: no pitting edema, no clubbing Neuro: non-focal, moving all extremities Psych: cooperative, euthymic mood Assessment and Plan of Care: Generalized weakness Klebsiella bacteremia Encephalopathy, metabolic - IVF: NS @ 20cc/hr - PT/OT consulted -continue ceftriaxone 2g q24h -ID consult appreciated - they would like to exchange dialysis catheter and send tip for culture - BCx showing pansensitive Klebsiella, repeat BCx pending Renal transplant recipient currently with ESRD on dialysis T/Th?Sat Troponin elevation, chronic and secondary to ESRD and not consistent with acute coronary syndrome Anemia of chronic disease, secondary to chronic kidney disease - nephrology consulted, appreciate recs: 04/05 discussed -obtain BCx to r/o infectious process - Bicarb 1300 TID, Tacro 2mg BID (level reviewed 04/06 - 1.8), Prednisone 5mg daily, Mycophenolate 360mg BID - Torsemide 40mg daily Wounds to bilateral lower feet - wound care consult appreciated: 04/04 reviewed - honey gel, order foam, offloading heel protectors Insulin-dependent Diabetes mellitus type 2 with hyperglycemia - glucose monitoring + LD SSI ordered 04/05 Folate deficiency Hypertension Dyslipidemia - Continue amlodipine 10 mg daily, carvedilol 25 mg twice daily - Continue ASA 81mg daily, atorvastatin 10mg HS - Continue folic acid 1mg daily CODE STATUS: Full code DVT prophylaxis: Heparin Anticipated discharge place: return to residential facility Objective - Vital Signs Vital signs: Vital Signs Temp 98.1 F 04/09/23 20:19 Pulse 92 04/09/23 20:19 Resp 16 04/09/23 20:19 BP 127/63 04/09/23 20:19 Pulse Ox 95 04/09/23 20:19 FiO2 Intake & Output 04/09/23 04/10/23 04/10/23 19:59 06:59 18:59 Intake Total Output Total Balance Intake: Hemodialysis Output: Hemodialysis Other: Voiding Method Diaper # Voids - Labs CBC & Chem 7: 04/10/23 06:23 04/09/23 07:54 Labs: Abnormal Lab Results - Last 24 Hours (Table) 04/09/23 04/09/23 04/09/23 Range/Units 11:48 16:57 20:17 RBC (3.80-5.40) m/uL Hgb (11.4-16.0) gm/dL Hct (34.0-46.0) % MCHC (31.0-37.0) g/dL RDW (11.5-15.5) % Plt Count (150-450) k/uL Neutrophils # (1.3-7.7) k/uL Lymphocytes # (1.0-4.8) k/uL POC Glucose (mg/dL) 191 H 127 H 123 H (70-110) mg/dL 04/10/23 Range/Units 06:23 RBC 2.84 L (3.80-5.40) m/uL Hgb 8.1 L (11.4-16.0) gm/dL Hct 27.8 L (34.0-46.0) % MCHC 29.2 L (31.0-37.0) g/dL RDW 18.3 H (11.5-15.5) % Plt Count 137 L (150-450) k/uL Neutrophils # 8.4 H (1.3-7.7) k/uL Lymphocytes # 0.7 L (1.0-4.8) k/uL POC Glucose (mg/dL) (70-110) mg/dL Microbiology - Last 24 Hours (Table) 04/08/23 19:07 Blood Culture - Preliminary Blood 04/07/23 00:04 Blood Culture - Preliminary Blood 04/07/23 12:38 Blood Culture Gram Stain - Preliminary Blood Blood Culture - Preliminary Gram Neg Bacilli
[2023-04-10] MEDS ORDERED: LIDOCAINE 1% INJ 10MG/ML (20 ML MDV) SQ ONE (10:28)
[2023-04-10 11:19] LABS: Glucose,Whole Blood 138 mg/dL (70-110)
[2023-04-10] MEDS: FOLIC ACID 1 MG TAB PO SCH (11:31)
[2023-04-10] MEDS: carvediloL 12.5 MG TAB PO SCH ×2 (11:31→17:25)
[2023-04-10] MEDS: SODIUM BICARBONATE TAB 650 MG TAB PO SCH ×3 (11:32→17:25)
[2023-04-10] MEDS: TACROLIMUS 1 MG CAP PO SCH ×2 (11:32→17:25)
[2023-04-10] MEDS: ASPIRIN 81 MG PO SCH (11:32)
[2023-04-10] MEDS: predniSONE 5 MG TAB PO SCH (11:32)
[2023-04-10] MEDS: THIAMINE 100 MG TAB PO SCH ×2 (11:32→17:25)
[2023-04-10] MEDS: amLODIPine 5 MG TAB PO SCH (11:32)
[2023-04-10] MEDS: TORSEMIDE 20 MG TAB PO SCH (11:32)
[2023-04-10] MEDS: FAMOTIDINE 20 MG TAB PO SCH (11:32)
[2023-04-10] MEDS: HEPARIN SODIUM,PORCINE 5,000 UNIT/ML 1 ML VIAL SQ SCH ×2 (11:40→20:33)
[2023-04-10] MEDS: HYDROcodone/APAP 5-325MG 1 EACH TAB PO PRN (11:44)
--- NOTE | 2023-04-10 12:15 | P.PN ---
Subjective Patient is seen in follow-up for end-stage renal disease. She is maintained on hemodialysis on Tuesday schedule via a permacath. Underwent dialysis yesterday. Hemodynamically stable. Confused. Vital signs are stable. General: No acute distress. HEENT: Head exam is unremarkable. LUNGS: No audible rhonchi or wheezes. HEART: Rate and Rhythm are regular. ABDOMEN: Nontender. EXTREMITITES: No edema. Objective - Vital Signs Vital signs: Vital Signs Temp 98.6 F 04/10/23 11:00 Pulse 96 04/10/23 11:00 Resp 19 04/10/23 11:00 BP 145/62 04/10/23 11:00 Pulse Ox 100 04/10/23 11:00 FiO2 Intake & Output 04/09/23 04/10/23 04/10/23 19:59 06:59 18:59 Intake Total Output Total Balance Intake: Hemodialysis Output: Hemodialysis Other: Voiding Method Diaper # Voids - Labs CBC & Chem 7: 04/10/23 06:23 04/09/23 07:54 Labs: Abnormal Lab Results - Last 24 Hours (Table) 04/09/23 04/09/23 04/10/23 Range/Units 16:57 20:17 06:23 RBC 2.84 L (3.80-5.40) m/uL Hgb 8.1 L (11.4-16.0) gm/dL Hct 27.8 L (34.0-46.0) % MCHC 29.2 L (31.0-37.0) g/dL RDW 18.3 H (11.5-15.5) % Plt Count 137 L (150-450) k/uL Neutrophils # 8.4 H (1.3-7.7) k/uL Lymphocytes # 0.7 L (1.0-4.8) k/uL POC Glucose (mg/dL) 127 H 123 H (70-110) mg/dL 04/10/23 Range/Units 11:17 RBC (3.80-5.40) m/uL Hgb (11.4-16.0) gm/dL Hct (34.0-46.0) % MCHC (31.0-37.0) g/dL RDW (11.5-15.5) % Plt Count (150-450) k/uL Neutrophils # (1.3-7.7) k/uL Lymphocytes # (1.0-4.8) k/uL POC Glucose (mg/dL) 138 H (70-110) mg/dL Microbiology - Last 24 Hours (Table) 04/07/23 12:38 Blood Culture Gram Stain - Final Blood Blood Culture - Final Klebsiella pneumoniae 04/08/23 19:07 Blood Culture - Preliminary Blood 04/07/23 00:04 Blood Culture - Preliminary Blood Assessment and Plan Plan: Assessment: 1. End-stage renal disease maintained on hemodialysis Tuesday schedule via permacath. 2. Status post donor renal transplant in 2016. 3. Chronic systolic CHF ejection fraction of 40% with mild to moderate mitral r egurgitation and moderate tricuspid regurgitation. 4. Volume overload. Improved. 5. Anemia of chronic kidney disease. Iron replete. On Aranesp. 6. Metabolic acidosis secondary to chronic kidney disease and GI losses. On oral bicarb. Improved postdialysis. 7. Hypertension with chronic kidney disease. Controlled. 8. Klebsiella bacteremia on antibiotics. Plan: Dialysis catheter wasn't removed yesterday but will be removed today. Discussed with vascular surgeon. Catheter tip will be sent for culture. Check labs daily to assess need for renal replacement therapy. Will need new permacath was cleared by infectious disease. Maintain torsemide. Hold CellCept due to bacteremia. Prograf level 1.8 dated 04/04/2023. Increased dose of Prograf. Repeat Prograf level. Hold amlodipine for systolic blood pressure less than 120. Follow-up repeat blood cultures. Avoid morphine due to ESRD. Okay to use Dilaudid if needed.
--- NOTE | 2023-04-10 13:46 | OP ---
OPERATIVE REPORT DATE OF SERVICE : PREOPERATIVE DIAGNOSIS: Acute on chronic renal failure. POSTOPERATIVE DIAGNOSIS: Acute on chronic renal failure. PROCEDURE PERFORMED: Removal of dialysis catheter, left jugular approach. DESCRIPTION OF PROCEDURE: Left side of the neck and chest was prepped and drapes applied in a sterile manner. 1% lidocaine was infiltrated at the site of the catheter. A small incision was made and went circumferentially around the catheter. Catheter was removed. The tip of the catheter was sent for deep culture. Pressure dressing applied. Pressure was held for 10 minutes. The patient tolerated the procedure well. MMODL / IJN: [id number] /
--- NOTE | 2023-04-10 14:23 | P.PN ---
Subjective Progress Note Date: 04/10/23 Principal diagnosis: Bacteremia Patient is a 72-year-old -[place] female with a comorbidities including diabetes mellitus hypertension hyperlipidemia end-stage renal disease on hemodialysis Tuesday via permacath patient presenting to the hospital with concerns for unable to care of self at home, patient did have blood cultures came back positive with gram-negative bacilli concerning for possible dialysis catheter infection. Dialysis catheter was removed 04/10/2023 On today's evaluation that is 04/10/2023 the patient remains to be afebrile, the patient is pleasantly confused and not a very good historian and breathing comfortably on room air with no specific denies any chest pain or cough no abdominal pain vomiting diarrhea or any other changes reported by family at the bedside Patient white count is 9.7,. Blood culture with Klebsiella repeat negative so far Objective - Vital Signs Vital signs: Vital Signs Temp 98.6 F 04/10/23 11:00 Pulse 96 04/10/23 11:00 Resp 19 04/10/23 11:00 BP 145/62 04/10/23 11:00 Pulse Ox 100 04/10/23 11:00 FiO2 Intake & Output 04/09/23 04/10/23 04/10/23 19:59 06:59 18:59 Intake Total Output Total Balance Intake: Hemodialysis Output: Hemodialysis Other: Voiding Method Diaper # Voids - Exam GENERAL DESCRIPTION: Elderly female lying in bed in no distress RESPIRATORY SYSTEM: Unlabored breathing , decreased breath sounds at bases HEART: S1 S2 regular rate and rhythm ABDOMEN: Soft , no tenderness EXTREMITIES: No edema feet - Labs CBC & Chem 7: 04/10/23 06:23 04/09/23 07:54 Labs: Abnormal Lab Results - Last 24 Hours (Table) 04/09/23 04/09/23 04/10/23 Range/Units 16:57 20:17 06:23 RBC 2.84 L (3.80-5.40) m/uL Hgb 8.1 L (11.4-16.0) gm/dL Hct 27.8 L (34.0-46.0) % MCHC 29.2 L (31.0-37.0) g/dL RDW 18.3 H (11.5-15.5) % Plt Count 137 L (150-450) k/uL Neutrophils # 8.4 H (1.3-7.7) k/uL Lymphocytes # 0.7 L (1.0-4.8) k/uL POC Glucose (mg/dL) 127 H 123 H (70-110) mg/dL 04/10/23 Range/Units 11:17 RBC (3.80-5.40) m/uL Hgb (11.4-16.0) gm/dL Hct (34.0-46.0) % MCHC (31.0-37.0) g/dL RDW (11.5-15.5) % Plt Count (150-450) k/uL Neutrophils # (1.3-7.7) k/uL Lymphocytes # (1.0-4.8) k/uL POC Glucose (mg/dL) 138 H (70-110) mg/dL Microbiology - Last 24 Hours (Table) 04/07/23 00:04 Blood Culture - Preliminary Blood 04/07/23 12:38 Blood Culture Gram Stain - Final Blood Blood Culture - Final Klebsiella pneumoniae 04/08/23 19:07 Blood Culture - Preliminary Blood Assessment and Plan (1) Bacteremia Current Visit: Yes Status: Acute Code(s): R78.81 - BACTEREMIA SNOMED Code(s): 0990143 (2) Unstageable pressure ulcer of left heel Current Visit: Yes Status: Acute Code(s): L89.620 - PRESSURE ULCER OF LEFT HEEL, UNSTAGEABLE SNOMED Code(s): 03093753346915348 Plan: 1-Patient with gram-negative bacteremia high clinical suspicion for possible permacatheter infection in this patient with no evidence of any abdominal tenderness on Examination and urine has been negative patient did have bilateral heel pressure ulcer with some necrotic tissue but no significant redness or foul-smelling drainage was noticed 2-blood culture has been repeated And are currently pending. 3vascular surgery has remove the dialysis catheter and the tip should be sent for the culture. 4patient to continue with Rocephin once repeat culture negative at 72 hours she will be able to get another dialysis catheter 5continue local wound care to the left heel pressure ulcer with the Medihoney followed by moist dressing to keep the area of the pressure Family the bedside questions were answered Dictation was produced using [employer] dictation software. please excuse any grammatical, word or spelling errors. Time with Patient: Less than 30
[2023-04-10 17:30] LABS: Glucose,Whole Blood 214 mg/dL (70-110)
[2023-04-10 20:10] LABS: Glucose,Whole Blood 208 mg/dL (70-110)
[2023-04-10] MEDS: ATORVASTATIN 10 MG TAB PO SCH (20:33)
[2023-04-11 05:24] LABS: Glucose,Whole Blood 223 mg/dL (70-110)
[2023-04-11] MEDS: INSULIN ASPART (NovoLOG) 100 UNIT/ML VIAL SQ SCH ×3 (07:00→17:26)
[2023-04-11] MEDS: ASPIRIN 81 MG PO SCH (09:15)
[2023-04-11] MEDS: THIAMINE 100 MG TAB PO SCH ×2 (09:16→17:26)
[2023-04-11] MEDS: amLODIPine 5 MG TAB PO SCH (09:16)
[2023-04-11] MEDS: FAMOTIDINE 20 MG TAB PO SCH (09:18)
[2023-04-11] MEDS: FOLIC ACID 1 MG TAB PO SCH (09:18)
[2023-04-11] MEDS: HEPARIN SODIUM,PORCINE 5,000 UNIT/ML 1 ML VIAL SQ SCH ×2 (09:18→21:08)
[2023-04-11] MEDS: predniSONE 5 MG TAB PO SCH (09:19)
[2023-04-11] MEDS: SODIUM BICARBONATE TAB 650 MG TAB PO SCH ×3 (09:19→17:26)
[2023-04-11] MEDS: TACROLIMUS 1 MG CAP PO SCH ×2 (09:20→17:26)
[2023-04-11] MEDS: TORSEMIDE 20 MG TAB PO SCH (09:20)
[2023-04-11] MEDS: carvediloL 12.5 MG TAB PO SCH ×2 (09:22→17:33)
[2023-04-11 09:54] LABS: African American GFR (CKD) 27 (>60 ml/min/1.73 sqM); Anion Gap 14 mmol/L; Blood Urea Nitrogen 17 mg/dL (7-17); Calcium 8.7 mg/dL (8.4-10.2); Carbon Dioxide 24 mmol/L (22-30); Chloride 98 mmol/L (98-107); Glucose 217 mg/dL (74-99); Magnesium 1.8 mg/dL (1.6-2.3); Non-African American GFR(CKD) 24 (>60 ml/min/1.73 sqM); Sodium 136 mmol/L (137-145)
[2023-04-11 10:16] LABS: Potassium 2.7 mmol/L (3.5-5.1)
[2023-04-11] MEDS ORDERED: POTASSIUM CHLORIDE ER 20 MEQ TAB.ER PO STA (10:29)
--- NOTE | 2023-04-11 10:44 | P.PN ---
Subjective Progress Note Date: 04/11/23 Hospital Course: Patient is a very pleasant 72 -year-old female with a past medical history of renal transplant in 2016 currently with ESRD on dialysis //tue, hypertension, dyslipidemia, and insulin-dependent diabetes mellitus . Patient presented to the emergency department via EMS from home with a chief complaint of general weakness and burning with urination. Patient was in rehab at [facility] and was reportedly discharged home with her on Tuesday04/02/23, states that her is disabled and unable to help her very much and she believes she is still too weak to independently care for herself and needs to return to rehab. Patient underwent full evaluation in the emergency department. Vital signs upon arrival show blood pressure 147/76, heart rate 92, respiratory rate 18, temp 99.7F, SpO2 100% on room air. Labs completed and reviewed. CBC showing a stable normocytic anemia with hemoglobin of 8.9. Coagulation profile showing elevated PT of 12.8 and INR 1.2. BMP showing sodium 134, bicarb 21, BUN 13, creatinine 1.87, and GFR of 26. Liver profile unremarkable. Magnesium slightly low 1.7. Troponin elevated at 0.047 with repeat troponin is 0.043. TSH normal findings at 1.940. EKG completed showing normal sinus rhythm at 85 bpm with no significant T-wave or ST abnormalities showing no signs of acute ischemia. Patient was initially admitted to [facility] hospitalist group on 04/03/23 at 11:10 PM. We were notified of this admission at 7:49 AM on 04/04/23. During patient's workup, she was noted to develop significant encephalopathy/confusion. Infectious workup demonstrated a culture positive for Klebsiella which was pansensitive. Patient was started on ceftriaxone. ID was consulted and recommended exchange dialysis catheter with tip sent for culture. Catheter was removed on 04/10. Notably, patient's CellCept was discontinued after developing bacteremia, while her Prograf level was noted to be low and therefore Prograf was increased to 3 mg twice a day with repeat level pending. Repeat blood cultures have been noted to be negative. Subjective: No fevers, chills, pain, dysuria. Patient's encephalopathy seems to be improving. Physical exam: Gen: awake, alert HEENT: normocephalic, atraumatic, good hearing acuity, moist mucous membranes Resp: good air exchange, breathing comfortably with no accessory muscle use CVS: good distal perfusion x 4, GI: soft, NTTP, ND : no SPT, no CVAT, fox catheter not present MSK: no pitting edema, no clubbing Neuro: non-focal, moving all extremities Assessment and Plan of Care: Generalized weakness Klebsiella bacteremia Encephalopathy, metabolic - IVF: NS @ 20cc/hr - PT/OT consulted - recommend rehab which patient's family is in agreement with -continue ceftriaxone 2g q24h -ID consult appreciated - they would like to exchange dialysis catheter and send tip for culture -Catheter was removed on 04/10 by vascular surgery - BCx showing pansensitive Klebsiella, repeat BCx negative Hypokalemia -40 mEq by mouth, 10 mEq every hour 4 ordered on 04/11 -Repeat BMP timed for 15:00 on 04/11 Renal transplant recipient currently with ESRD on dialysis T/Th?Sat Troponin elevation, chronic and secondary to ESRD and not consistent with acute coronary syndrome Anemia of chronic disease, secondary to chronic kidney disease - nephrology consulted, appreciate recs: 04/10 - discontinue CellCept, Prograf was increased to 3 mg twice a day with repeat level pending - Bicarb 1300 TID, Tacro 3mg BID (level reviewed 04/06 - 1.8, repeat level pending), Prednisone 5mg daily - Torsemide 40mg daily Wounds to bilateral lower feet - wound care consult appreciated: 04/04 reviewed - honey gel, order foam, offloading heel protectors Insulin-dependent Diabetes mellitus type 2 with hyperglycemia - glucose monitoring + LD SSI ordered 04/05, sugars have been high as patient has refused subcutaneous insulin on several occasions Folate deficiency Hypertension Dyslipidemia - Continue amlodipine 5mg daily, carvedilol 25 mg twice daily - Continue ASA 81mg daily, atorvastatin 10mg HS - Continue folic acid 1mg daily, thiamine 250 mg twice a day CODE STATUS: Full code DVT prophylaxis: Heparin 5000 units every [address]: return to [facility] facility Objective - Vital Signs Vital signs: Vital Signs Temp 97.6 F 04/11/23 00:31 Pulse 76 04/11/23 09:03 Resp 18 04/11/23 07:50 BP 160/76 04/11/23 09:03 Pulse Ox 100 04/11/23 09:08 FiO2 Intake & Output 04/10/23 04/11/23 04/11/23 18:59 06:59 18:59 Other: Voiding Method Diaper Diaper Diaper # Voids 2 # Bowel Movements 1 - Labs CBC & Chem 7: 04/10/23 06:23 04/11/23 08:50 Labs: Abnormal Lab Results - Last 24 Hours (Table) 04/10/23 04/10/23 04/10/23 Range/Units 11:17 17:29 20:08 Sodium (137-145) mmol/L Potassium (3.5-5.1) mmol/L Creatinine (0.52-1.04) mg/dL Glucose (74-99) mg/dL POC Glucose (mg/dL) 138 H 214 H 208 H (70-110) mg/dL 04/11/23 04/11/23 Range/Units 05:22 08:50 Sodium 136 L (137-145) mmol/L Potassium 2.7 L* (3.5-5.1) mmol/L Creatinine 2.05 H (0.52-1.04) mg/dL Glucose 217 H (74-99) mg/dL POC Glucose (mg/dL) 223 H (70-110) mg/dL Microbiology - Last 24 Hours (Table) 04/08/23 19:07 Blood Culture - Preliminary Blood 04/07/23 00:04 Blood Culture - Preliminary Blood 04/07/23 12:38 Blood Culture Gram Stain - Final Blood Blood Culture - Final Klebsiella pneumoniae
--- NOTE | 2023-04-11 11:38 | P.PN ---
Subjective Progress Note Date: 04/11/23 Principal diagnosis: Bacteremia Patient is a 72-year-old -[place] female with a comorbidities including diabetes mellitus hypertension hyperlipidemia end-stage renal disease on hemodialysis Tuesday via permacath patient presenting to the hospital with concerns for unable to care of self at home, patient did have blood cultures came back positive with gram-negative bacilli concerning for possible dialysis catheter infection. Dialysis catheter was removed 04/10/2023 On today's evaluation that is 04/11/2023, the patient remains to be afebrile, the patient is breathing comfortably on room air , the patient denies any chest pain or cough and no sputum production, patient denies nausea/vomiting or diarrhea , no abdominal pain Patient white count is 9.7 as of yesterday. Blood culture with Klebsiella, repeat blood culture negative so far Objective - Vital Signs Vital signs: Vital Signs Temp 97.6 F 04/11/23 00:31 Pulse 76 04/11/23 09:03 Resp 18 04/11/23 07:50 BP 160/76 04/11/23 09:03 Pulse Ox 100 04/11/23 09:08 FiO2 Intake & Output 04/10/23 04/11/23 04/11/23 18:59 06:59 18:59 Other: Voiding Method Diaper Diaper Diaper # Voids 2 # Bowel Movements 1 - Exam GENERAL DESCRIPTION: Elderly female lying in bed in no distress RESPIRATORY SYSTEM: Unlabored breathing , decreased breath sounds at bases HEART: S1 S2 regular rate and rhythm ABDOMEN: Soft , no tenderness EXTREMITIES: No edema feet - Labs CBC & Chem 7: 04/10/23 06:23 04/11/23 08:50 Labs: Abnormal Lab Results - Last 24 Hours (Table) 04/10/23 04/10/23 04/11/23 Range/Units 17:29 20:08 05:22 Sodium (137-145) mmol/L Potassium (3.5-5.1) mmol/L Creatinine (0.52-1.04) mg/dL Glucose (74-99) mg/dL POC Glucose (mg/dL) 214 H 208 H 223 H (70-110) mg/dL 04/11/23 Range/Units 08:50 Sodium 136 L (137-145) mmol/L Potassium 2.7 L* (3.5-5.1) mmol/L Creatinine 2.05 H (0.52-1.04) mg/dL Glucose 217 H (74-99) mg/dL POC Glucose (mg/dL) (70-110) mg/dL Microbiology - Last 24 Hours (Table) 04/08/23 19:07 Blood Culture - Preliminary Blood 04/07/23 00:04 Blood Culture - Preliminary Blood 04/07/23 12:38 Blood Culture Gram Stain - Final Blood Blood Culture - Final Klebsiella pneumoniae Assessment and Plan (1) Bacteremia Current Visit: Yes Status: Acute Code(s): R78.81 - BACTEREMIA SNOMED Code(s): 9938177 (2) Unstageable pressure ulcer of left heel Current Visit: Yes Status: Acute Code(s): L89.620 - PRESSURE ULCER OF LEFT HEEL, UNSTAGEABLE SNOMED Code(s): 65474930450222114 Plan: 1-Patient with gram-negative bacteremia high clinical suspicion for possible permacatheter infection in this patient with no evidence of any abdominal tenderness on Examination and urine has been negative patient did have bilateral heel pressure ulcer with some necrotic tissue but no significant redness or foul-smelling drainage was noticed 2-blood culture has been repeated And are currently pending. 3vascular surgery has remove the dialysis catheter and the tip should be sent for the culture. 4continue local wound care to the left heel pressure ulcer with the Medihoney followed by moist dressing to keep the area of the pressure 5-patient to continue with Rocephin , when repeat culture negative at 72 hours she will be able to get another dialysis catheter Dictation was produced using [employer] dictation software. please excuse any grammatical, word or spelling errors. Time with Patient: Less than 30
[2023-04-11 11:54] LABS: Glucose,Whole Blood 215 mg/dL (70-110)
[2023-04-11] MEDS: POTASSIUM CHLORIDE 10 MEQ in WATER FOR INJECTION 1 100ML.BAG IVPB SCH ×4 (12:03→16:37)
--- NOTE | 2023-04-11 13:04 | P.PN ---
Subjective Patient is seen for follow-up for end-stage renal disease. Status post removal of left IJ permacath 04/10/2023. Blood cultures from 04/08/2023 are negative thus far. Previous blood culture on 04/07/2023 grew Klebsiella pneumonia. No significant complaints today. Last dialysis was on 04/09/2023 Objective - Vital Signs Vital signs: Vital Signs Temp 97.6 F 04/11/23 00:31 Pulse 76 04/11/23 09:03 Resp 18 04/11/23 07:50 BP 160/76 04/11/23 09:03 Pulse Ox 100 04/11/23 09:08 FiO2 Intake & Output 04/10/23 04/11/23 04/11/23 18:59 06:59 18:59 Other: Voiding Method Diaper Diaper Diaper # Voids 2 # Bowel Movements 1 - Exam Patient is awake, comfortable, in no acute distress Examination of the heart S1 and S2 Examination of the lungs bilateral breath sounds are heard Abdomen is soft nontender Examination of lower extremity shows no significant edema - Labs CBC & Chem 7: 04/10/23 06:23 04/11/23 08:50 Labs: Abnormal Lab Results - Last 24 Hours (Table) 04/10/23 04/10/23 04/11/23 Range/Units 17:29 20:08 05:22 Sodium (137-145) mmol/L Potassium (3.5-5.1) mmol/L Creatinine (0.52-1.04) mg/dL Glucose (74-99) mg/dL POC Glucose (mg/dL) 214 H 208 H 223 H (70-110) mg/dL 04/11/23 04/11/23 Range/Units 08:50 11:51 Sodium 136 L (137-145) mmol/L Potassium 2.7 L* (3.5-5.1) mmol/L Creatinine 2.05 H (0.52-1.04) mg/dL Glucose 217 H (74-99) mg/dL POC Glucose (mg/dL) 215 H (70-110) mg/dL Microbiology - Last 24 Hours (Table) 04/08/23 19:07 Blood Culture - Preliminary Blood 04/07/23 00:04 Blood Culture - Preliminary Blood 04/07/23 12:38 Blood Culture Gram Stain - Final Blood Blood Culture - Final Klebsiella pneumoniae Assessment and Plan Assessment: 1. End-stage renal disease maintained on hemodialysis Tuesday schedule via permacath. 2. Status post donor renal transplant in 2015. 3. Chronic systolic CHF ejection fraction of 40% with mild to moderate mitral regurgitation and moderate tricuspid regurgitation. 4. Volume overload. Improved. 5. Anemia of chronic kidney disease. Iron replete. On Aranesp. 6. Metabolic acidosis secondary to chronic kidney disease and GI losses. On oral bicarb. Improved postdialysis. 7. Hypertension with chronic kidney disease. Controlled. 8. Klebsiella bacteremia on antibiotics. Status post removal of left IJ permacath 04/10/2023 Plan: Awaiting negative blood cultures to replace permacath Continue with antibiotics Repeat labs in a.m.
[2023-04-11 15:14] LABS: African American GFR (CKD) 27 (>60 ml/min/1.73 sqM); Anion Gap 11 mmol/L; Blood Urea Nitrogen 18 mg/dL (7-17); Calcium 8.4 mg/dL (8.4-10.2); Carbon Dioxide 26 mmol/L (22-30); Chloride 98 mmol/L (98-107); Glucose 218 mg/dL (74-99); Non-African American GFR(CKD) 24 (>60 ml/min/1.73 sqM); Potassium 2.9 mmol/L (3.5-5.1); Sodium 135 mmol/L (137-145)
[2023-04-11 17:00] LABS: Glucose,Whole Blood 257 mg/dL (70-110)
[2023-04-11 20:37] LABS: Glucose,Whole Blood 197 mg/dL (70-110)
[2023-04-11 21:05] LABS: African American GFR (CKD) 28 (>60 ml/min/1.73 sqM); Anion Gap 8 mmol/L; Blood Urea Nitrogen 20 mg/dL (7-17); Calcium 8.5 mg/dL (8.4-10.2); Carbon Dioxide 26 mmol/L (22-30); Chloride 99 mmol/L (98-107); Glucose 192 mg/dL (74-99); Non-African American GFR(CKD) 24 (>60 ml/min/1.73 sqM); Potassium 3.5 mmol/L (3.5-5.1); Sodium 133 mmol/L (137-145)
[2023-04-11] MEDS: ATORVASTATIN 10 MG TAB PO SCH (21:08)
[2023-04-12] MEDS: SODIUM CHLORIDE 0.9% 1,000 ML IV SCH ×2 (01:02→21:27)
[2023-04-12 06:07] LABS: Glucose,Whole Blood 307 mg/dL (70-110)
[2023-04-12] MEDS: HEPARIN SODIUM,PORCINE 5,000 UNIT/ML 1 ML VIAL SQ SCH ×2 (08:48→21:26)
[2023-04-12] MEDS: INSULIN ASPART (NovoLOG) 100 UNIT/ML VIAL SQ SCH ×3 (08:48→17:11)
[2023-04-12] MEDS: SODIUM BICARBONATE TAB 650 MG TAB PO SCH ×3 (08:49→17:12)
[2023-04-12] MEDS: carvediloL 12.5 MG TAB PO SCH ×2 (08:49→17:12)
[2023-04-12] MEDS: FAMOTIDINE 20 MG TAB PO SCH (08:49)
[2023-04-12] MEDS: TORSEMIDE 20 MG TAB PO SCH (08:49)
[2023-04-12] MEDS: ASPIRIN 81 MG PO SCH (08:49)
[2023-04-12] MEDS: FOLIC ACID 1 MG TAB PO SCH (08:49)
[2023-04-12] MEDS: THIAMINE 100 MG TAB PO SCH ×2 (08:49→17:12)
[2023-04-12] MEDS: amLODIPine 5 MG TAB PO SCH (08:49)
[2023-04-12] MEDS: predniSONE 5 MG TAB PO SCH (08:50)
[2023-04-12] MEDS: TACROLIMUS 1 MG CAP PO SCH ×2 (08:50→17:12)
[2023-04-12 11:58] LABS: Glucose,Whole Blood 147 mg/dL (70-110)
[2023-04-12] MEDS: DARBEPOETIN ALFA 40 MCG/0.4 ML SYRINGE SQ SCH (12:41)
--- NOTE | 2023-04-12 13:06 | P.PN ---
Subjective Patient is seen for follow-up for end-stage renal disease. Status post removal of left IJ permacath 04/10/2023. Blood cultures from 04/08/2023 are negative thus far. Previous blood culture on 04/07/2023 grew Klebsiella pneumonia. No significant complaints today. Last dialysis was on 04/09/2023 Patient has been confused and oriented 1. Objective - Vital Signs Vital signs: Vital Signs Temp 97.4 F L 04/12/23 07:02 Pulse 76 04/12/23 07:02 Resp 18 04/12/23 07:02 BP 125/51 04/12/23 07:02 Pulse Ox 100 04/12/23 07:02 FiO2 Intake & Output 04/11/23 04/12/23 04/12/23 18:59 06:59 18:59 Intake Total 600 Balance 600 Intake: Oral 600 Other: Voiding Method Diaper Diaper Diaper # Voids 1 # Bowel Movements 1 - Exam Patient is awake, comfortable, in no acute distress Confused Examination of the heart S1 and S2 Examination of the lungs bilateral breath sounds are heard Abdomen is soft nontender Examination of lower extremity shows no significant edema - Labs CBC & Chem 7: 04/10/23 06:23 04/11/23 20:10 Labs: Abnormal Lab Results - Last 24 Hours (Table) 04/11/23 04/11/23 04/11/23 Range/Units 14:33 16:57 20:10 Sodium 135 L 133 L (137-145) mmol/L Potassium 2.9 L (3.5-5.1) mmol/L BUN 18 H 20 H (7-17) mg/dL Creatinine 2.06 H 2.01 H (0.52-1.04) mg/dL Glucose 218 H 192 H (74-99) mg/dL POC Glucose (mg/dL) 257 H (70-110) mg/dL 04/11/23 04/12/23 04/12/23 Range/Units 20:35 06:06 11:57 Sodium (137-145) mmol/L Potassium (3.5-5.1) mmol/L BUN (7-17) mg/dL Creatinine (0.52-1.04) mg/dL Glucose (74-99) mg/dL POC Glucose (mg/dL) 197 H 307 H 147 H (70-110) mg/dL Microbiology - Last 24 Hours (Table) 04/07/23 00:04 Blood Culture - Final Blood 04/08/23 19:07 Blood Culture - Preliminary Blood 04/10/23 18:12 Blood Culture - Preliminary Blood 04/10/23 11:05 Catheter Tip Culture - Preliminary Catheter Tip Assessment and Plan Assessment: 1. End-stage renal disease maintained on hemodialysis Tuesday schedule via permacath. 2. Status post donor renal transplant in 2015. 3. Chronic systolic CHF ejection fraction of 40% with mild to moderate mitral regurgitation and moderate tricuspid regurgitation. 4. Volume overload. Improved. 5. Anemia of chronic kidney disease. Iron replete. On Aranesp. 6. Metabolic acidosis secondary to chronic kidney disease and GI losses. On or al bicarb. Improved postdialysis. 7. Hypertension with chronic kidney disease. Controlled. 8. Klebsiella bacteremia on antibiotics. Status post removal of left IJ permacath 04/10/2023 Plan: Awaiting negative blood cultures to replace permacath, possibly tomorrow Continue with antibiotics Repeat labs in a.m.
--- NOTE | 2023-04-12 13:33 | P.PN ---
Subjective Progress Note Date: 04/12/23 Patient is a very pleasant 72 -year-old female with a past medical history of renal transplant in 2016 currently with ESRD on dialysis //tue, hypertension, dyslipidemia, and insulin-dependent diabetes mellitus . Patient presented to the emergency department via EMS from home with a chief complaint of general weakness and burning with urination. Patient was in rehab at [facility] and was reportedly discharged home with her on Tuesday04/02/23, states that her is disabled and unable to help her very much and she believes she is still too weak to independently care for herself and needs to return to rehab. Patient underwent full evaluation in the emergency department. Vital signs upon arrival show blood pressure 147/76, heart rate 92, respiratory rate 18, temp 99.7F, SpO2 100% on room air. Labs completed and reviewed. CBC showing a stable normocytic anemia with hemoglobin of 8.9. Coagulation profile showing elevated PT of 12.8 and INR 1.2. BMP showing sodium 134, bicarb 21, BUN 13, creatinine 1.87, and GFR of 26. Liver profile unremarkable. Magnesium slightly low 1.7. Troponin elevated at 0.047 with repeat troponin is 0.043. TSH normal findings at 1.940. EKG completed showing normal sinus rhythm at 85 bpm with no significant T-wave or ST abnormalities showing no signs of acute ischemia. Patient was initially admitted to [facility] hospitalist group on 04/03/23 at 11:10 PM. We were notified of this admission at 7:49 AM on 04/04/23. During patient's workup, she was noted to develop significant encephalopathy/confusion. Infectious workup demonstrated a blood culture positive for Klebsiella which was pansensitive. Patient was started on ceftriaxone. ID was consulted and recommended exchange dialysis catheter with tip sent for culture. Catheter was removed on 04/10. Notably, patient's CellCept was discontinued after developing bacteremia, while her Prograf level was noted to be low and therefore Prograf was increased to 3 mg twice a day with repeat level pending. Repeat blood cultures have been noted to be negative. Plan is to exchange HD catheter after catheter tip culture is negative at 72 hours. 04/12 Patient was seen and examined. She is confused. Appears lethargic. Does not complain of anything. No new labs done today. Discussed with Dr. Magaña, OK to hold HD for now. Physical examination: Gen: awake, alert HEENT: normocephalic, atraumatic, good hearing acuity, moist mucous membranes Resp: good air exchange, breathing comfortably with no accessory muscle use CVS: good distal perfusion x 4 GI: soft, NTTP, ND : no SPT, no CVAT, fox catheter not present MSK: no pitting edema, no clubbing Neuro: non-focal, moving all extremities Klebsiella bacteremia Acute metabolic encephalopathy Renal transplant recipient currently with ESRD on dialysis T/Th?Sat Troponin elevation, chronic and secondary to ESRD and not consistent with acute coronary syndrome Anemia of chronic disease, secondary to chronic kidney disease Wounds to bilateral lower feet Insulin-dependent Diabetes mellitus type 2 with hyperglycemia Folate deficiency Hypertension Dyslipidemia Based on my assessment of this patient, this patient meets a high complexity level of care. Patient has an acute diagnosis of acute metabolic encephalopathy that poses a threat to life or bodily function. 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 Not on antiplatelet agents. CVA workup ordered. Klebsiella bacteremia: Continue Rocephin 2g IV QD. Repeat BCx negative so far. Awaiting final HD catheter tip culture. Telemetry monitoring. ID on board. Acute metabolic encephalopathy: Likely due to above. CT head done this admission shows no acute changes. Fall precautions. PT and OT on board. Renal transplant recipient currently with ESRD on dialysis T//Sat: Monitor electrolytes. Nephrology on board. Bicarb 1300 mg PO TID, Tacro 3 mg PO BID. Repeat Tacrolimus level pending. Troponin elevation, chronic and secondary to ESRD: Not consistent with acute coronary syndrome. ASA 81mg daily. Atorvastatin 10mg HS. Anemia of chronic disease, secondary to chronic kidney disease Wounds to bilateral lower feet: Wound care consult recommendations appreciated. Insulin-dependent Diabetes mellitus type 2 with hyperglycemia: Accuchecks ACHS + LD SSI. Folate deficiency: Continue folic acid 1mg daily. Hypertension: Amlodipine 5mg daily, carvedilol 25 mg twice daily. Dyslipidemia: Lipitor as above. Heparin SQ for DVT prophylaxis. FULL CODE. I have reviewed the following change management consultant notes: Nephrology note. I have reviewed the results of the following tests: I have ordered the following tests: BMP. I have discussed the care of this patient with the following independent historian: I have independently interpreted the following test below: Discussed with RN regarding mentation. I have discussed the management of this patient with the following physician: Discussed with Dr. Magaña. Objective - Vital Signs Vital signs: Vital Signs Temp 97.4 F L 04/12/23 07:02 Pulse 76 04/12/23 07:02 Resp 18 04/12/23 07:02 BP 125/51 04/12/23 07:02 Pulse Ox 100 04/12/23 07:02 FiO2 Intake & Output 04/11/23 04/12/23 04/12/23 18:59 06:59 18:59 Intake Total 600 Balance 600 Intake: Oral 600 Other: Voiding Method Diaper Diaper Diaper # Voids 1 # Bowel Movements 1 - Labs CBC & Chem 7: 04/10/23 06:23 04/11/23 20:10 Labs: Abnormal Lab Results - Last 24 Hours (Table) 04/11/23 04/11/23 04/11/23 Range/Units 14:33 16:57 20:10 Sodium 135 L 133 L (137-145) mmol/L Potassium 2.9 L (3.5-5.1) mmol/L BUN 18 H 20 H (7-17) mg/dL Creatinine 2.06 H 2.01 H (0.52-1.04) mg/dL Glucose 218 H 192 H (74-99) mg/dL POC Glucose (mg/dL) 257 H (70-110) mg/dL 04/11/23 04/12/23 04/12/23 Range/Units 20:35 06:06 11:57 Sodium (137-145) mmol/L Potassium (3.5-5.1) mmol/L BUN (7-17) mg/dL Creatinine (0.52-1.04) mg/dL Glucose (74-99) mg/dL POC Glucose (mg/dL) 197 H 307 H 147 H (70-110) mg/dL Microbiology - Last 24 Hours (Table) 04/07/23 00:04 Blood Culture - Final Blood 04/08/23 19:07 Blood Culture - Preliminary Blood 04/10/23 18:12 Blood Culture - Preliminary Blood 04/10/23 11:05 Catheter Tip Culture - Preliminary Catheter Tip
--- NOTE | 2023-04-12 14:45 | P.PN ---
Subjective Progress Note Date: 04/12/23 Principal diagnosis: Bacteremia Patient is a 72-year-old -[place] female with a comorbidities including diabetes mellitus hypertension hyperlipidemia end-stage renal disease on hemodialysis Tuesday via permacath patient presenting to the hospital with concerns for unable to care of self at home, patient did have blood cultures came back positive with gram-negative bacilli concerning for possible dialysis catheter infection. Dialysis catheter was removed 04/10/2023 On today's evaluation that is 04/12/2023, the patient continues to be afebrile, the patient is breathing comfortably on room air and no need for supplemental oxygen, the patient denies any chest pain or cough , patient denies nausea/vomiting or diarrhea , no abdominal pain Patient creatinine is 2.01 no CBC was done today. Blood culture with Klebsiella, repeat blood culture negative so far Objective - Vital Signs Vital signs: Vital Signs Temp 97.4 F L 04/12/23 07:02 Pulse 76 04/12/23 07:02 Resp 18 04/12/23 07:02 BP 125/51 04/12/23 07:02 Pulse Ox 100 04/12/23 07:02 FiO2 Intake & Output 04/11/23 04/12/23 04/12/23 18:59 06:59 18:59 Intake Total 600 Balance 600 Intake: Oral 600 Other: Voiding Method Diaper Diaper Diaper # Voids 1 # Bowel Movements 1 - Exam GENERAL DESCRIPTION: Elderly female lying in bed in no distress RESPIRATORY SYSTEM: Unlabored breathing , decreased breath sounds at bases HEART: S1 S2 regular rate and rhythm ABDOMEN: Soft , no tenderness EXTREMITIES: No edema feet - Labs CBC & Chem 7: 04/10/23 06:23 04/11/23 20:10 Labs: Abnormal Lab Results - Last 24 Hours (Table) 04/11/23 04/11/23 04/11/23 Range/Units 14:33 16:57 20:10 Sodium 135 L 133 L (137-145) mmol/L Potassium 2.9 L (3.5-5.1) mmol/L BUN 18 H 20 H (7-17) mg/dL Creatinine 2.06 H 2.01 H (0.52-1.04) mg/dL Glucose 218 H 192 H (74-99) mg/dL POC Glucose (mg/dL) 257 H (70-110) mg/dL 04/11/23 04/12/23 04/12/23 Range/Units 20:35 06:06 11:57 Sodium (137-145) mmol/L Potassium (3.5-5.1) mmol/L BUN (7-17) mg/dL Creatinine (0.52-1.04) mg/dL Glucose (74-99) mg/dL POC Glucose (mg/dL) 197 H 307 H 147 H (70-110) mg/dL Microbiology - Last 24 Hours (Table) 04/08/23 19:07 Blood Culture - Preliminary Blood 04/10/23 18:12 Blood Culture - Preliminary Blood 04/10/23 11:05 Catheter Tip Culture - Preliminary Catheter Tip Assessment and Plan (1) Bacteremia Current Visit: Yes Status: Acute Code(s): R78.81 - BACTEREMIA SNOMED Code(s): 9455452 (2) Unstageable pressure ulcer of left heel Current Visit: Yes Status: Acute Code(s): L89.620 - PRESSURE ULCER OF LEFT HEEL, UNSTAGEABLE SNOMED Code(s): 62869824526736920 Plan: 1-Patient with gram-negative bacteremia high clinical suspicion for possible permacatheter infection in this patient with no evidence of any abdominal tenderness on Examination and urine has been negative patient did have bilateral heel pressure ulcer with some necrotic tissue but no significant redness or foul-smelling drainage was noticed 2-blood culture has been repeated And are currently pending. 3vascular surgery has remove the dialysis catheter and the tip should be sent for the culture. 4patient to continue local wound care to the left heel pressure ulcer with the Medihoney followed by moist dressing to keep the area of the pressure 5-patient to continue with Rocephin , repeat culture have been negative patient is cleared to go for placement of another permacatheter Dictation was produced using [employer] dictation software. please excuse any grammatical, word or spelling errors. Time with Patient: Less than 30
[2023-04-12 17:02] LABS: Glucose,Whole Blood 176 mg/dL (70-110)
[2023-04-12 20:55] LABS: Glucose,Whole Blood 133 mg/dL (70-110)
[2023-04-12] MEDS: ATORVASTATIN 10 MG TAB PO SCH (21:26)
[2023-04-13 05:51] LABS: Glucose,Whole Blood 225 mg/dL (70-110)
[2023-04-13] MEDS: INSULIN ASPART (NovoLOG) 100 UNIT/ML VIAL SQ SCH ×3 (06:04→18:04)
[2023-04-13] MEDS: ASPIRIN 81 MG PO SCH (09:07)
[2023-04-13] MEDS: carvediloL 12.5 MG TAB PO SCH ×2 (09:07→18:03)
[2023-04-13] MEDS: amLODIPine 5 MG TAB PO SCH (09:07)
[2023-04-13] MEDS: predniSONE 5 MG TAB PO SCH (09:08)
[2023-04-13] MEDS: FOLIC ACID 1 MG TAB PO SCH (09:08)
[2023-04-13] MEDS: SODIUM BICARBONATE TAB 650 MG TAB PO SCH ×3 (09:09→18:03)
[2023-04-13] MEDS: TACROLIMUS 1 MG CAP PO SCH ×2 (09:09→18:03)
[2023-04-13] MEDS: THIAMINE 100 MG TAB PO SCH ×2 (09:10→18:03)
[2023-04-13] MEDS: TORSEMIDE 20 MG TAB PO SCH (09:11)
[2023-04-13] MEDS: HEPARIN SODIUM,PORCINE 5,000 UNIT/ML 1 ML VIAL SQ SCH ×2 (09:12→21:06)
[2023-04-13] MEDS: FAMOTIDINE 20 MG TAB PO SCH (09:12)
--- NOTE | 2023-04-13 11:02 | P.PN ---
Subjective Progress Note Date: 04/13/23 Patient is a very pleasant 72 -year-old female with a past medical history of renal transplant in 2016 currently with ESRD on dialysis //tue, hypertension, dyslipidemia, and insulin-dependent diabetes mellitus . Patient presented to the emergency department via EMS from home with a chief complaint of general weakness and burning with urination. Patient was in rehab at [facility] and was reportedly discharged home with her on Tuesday04/02/23, states that her is disabled and unable to help her very much and she believes she is still too weak to independently care for herself and needs to return to rehab. Patient underwent full evaluation in the emergency department. Vital signs upon arrival show blood pressure 147/76, heart rate 92, respiratory rate 18, temp 99.7F, SpO2 100% on room air. Labs completed and reviewed. CBC showing a stable normocytic anemia with hemoglobin of 8.9. Coagulation profile showing elevated PT of 12.8 and INR 1.2. BMP showing sodium 134, bicarb 21, BUN 13, creatinine 1.87, and GFR of 26. Liver profile unremarkable. Magnesium slightly low 1.7. Troponin elevated at 0.047 with repeat troponin is 0.043. TSH normal findings at 1.940. EKG completed showing normal sinus rhythm at 85 bpm with no significant T-wave or ST abnormalities showing no signs of acute ischemia. Patient was initially admitted to [facility] hospitalist group on 04/03/23 at 11:10 PM. We were notified of this admission at 7:49 AM on 04/04/23. During patient's workup, she was noted to develop significant encephalopathy/confusion. Infectious workup demonstrated a blood culture positive for Klebsiella which was pansensitive. Patient was started on ceftriaxone. ID was consulted and recommended exchange dialysis catheter with tip sent for culture. Catheter was removed on 04/10. Notably, patient's CellCept was discontinued after developing bacteremia, while her Prograf level was noted to be low and therefore Prograf was increased to 3 mg twice a day with repeat level pending. Repeat blood cultures have been noted to be negative. Plan is to exchange HD catheter after catheter tip culture is negative at 72 hours. 04/12 Patient was seen and examined. She is confused. Appears lethargic. Does not complain of anything. No new labs done today. Discussed with Dr. Magaña, OK to hold HD for now. 04/13 Patient was seen and examined. Sleepy but easily arousable. HD catheter tip Cx negative. Vascular surgery re-consulted for permacath insertion. BMP ordered and pending. Tacrolimus level 7.5. Physical examination: Gen: awake, alert HEENT: normocephalic, atraumatic, good hearing acuity, moist mucous membranes Resp: good air exchange, breathing comfortably with no accessory muscle use, CTABL CVS: good distal perfusion x 4, Normal S1 S2. GI: soft, NTTP, ND : no SPT, no CVAT, fox catheter not present MSK: no pitting edema, no clubbing Neuro: non-focal, moving all extremities Klebsiella bacteremia Acute metabolic encephalopathy Renal transplant recipient currently with ESRD on dialysis T/Th?Sat Troponin elevation, chronic and secondary to ESRD and not consistent with acute coronary syndrome Anemia of chronic disease, secondary to chronic kidney disease Wounds to bilateral lower feet Insulin-dependent Diabetes mellitus type 2 with hyperglycemia Folate deficiency Hypertension Dyslipidemia Based on my assessment of this patient, this patient meets a moderate complexity level of care. Patient has an acute diagnosis of sepsis related to Klebsiella bacteremia. Currently on Rocephin. Repeat BCx negative so far. HD catheter tip culture pending. Klebsiella bacteremia: Continue Rocephin 2g IV QD. Repeat BCx negative so far. H D catheter tip culture negative. Telemetry monitoring. ID on board. Acute metabolic encephalopathy: Likely due to above. CT head done this admission shows no acute changes. Fall precautions. PT and OT on board. Renal transplant recipient currently with ESRD on dialysis T/Th/Sat: Monitor electrolytes. Nephrology on board. Bicarb 1300 mg PO TID, Tacro 3 mg PO BID. Repeat Tacrolimus level 7.5. Plans for permacath today. Troponin elevation, chronic and secondary to ESRD: Not consistent with acute coronary syndrome. ASA 81mg daily. Atorvastatin 10mg HS. Anemia of chronic disease, secondary to chronic kidney disease Wounds to bilateral lower feet: Wound care consult recommendations appreciated. Insulin-dependent Diabetes mellitus type 2 with hyperglycemia: Accuchecks ACHS + LD SSI. Folate deficiency: Continue folic acid 1mg daily. Hypertension: Amlodipine 5mg daily, carvedilol 25 mg twice daily. Dyslipidemia: Lipitor as above. Heparin SQ for DVT prophylaxis. FULL CODE. I have reviewed the following performance consultant notes: ID note. I have reviewed the results of the following tests: I have ordered the following tests: BMP. I have discussed the care of this patient with the following independent historian: I have independently interpreted the following test below: Discussed with RN regarding mentation. I have discussed the management of this patient with the following physician: Objective - Vital Signs Vital signs: Vital Signs Temp 97.4 F L 04/12/23 20:02 Pulse 66 04/13/23 07:00 Resp 16 04/13/23 07:00 BP 171/87 04/13/23 07:00 Pulse Ox 98 04/13/23 07:00 FiO2 Intake & Output 04/12/23 04/13/23 04/13/23 18:59 06:59 18:59 Weight 74.843 kg Other: Voiding Method Diaper Diaper # Voids 1 # Bowel Movements 1 - Labs CBC & Chem 7: 04/10/23 06:23 04/11/23 20:10 Labs: Abnormal Lab Results - Last 24 Hours (Table) 04/12/23 04/12/23 04/12/23 Range/Units 11:57 16:58 20:52 POC Glucose (mg/dL) 147 H 176 H 133 H (70-110) mg/dL 04/13/23 Range/Units 05:49 POC Glucose (mg/dL) 225 H (70-110) mg/dL Microbiology - Last 24 Hours (Table) 04/10/23 18:12 Blood Culture - Preliminary Blood 04/10/23 11:05 Catheter Tip Culture - Final Catheter Tip 04/07/23 00:04 Blood Culture - Final Blood
[2023-04-13 11:44] LABS: Glucose,Whole Blood 199 mg/dL (70-110)
[2023-04-13] MEDS ORDERED: LIDOCAINE 1% INJ 10MG/ML (20 ML MDV) SQ ONE ×2 (16:24→16:25)
[2023-04-13] MEDS ORDERED: methylPREDNISolone SOD SUCCI 125 MG/2 ML VIAL IV ONE (16:30)
[2023-04-13] MEDS ORDERED: diphenhydrAMINE 50 MG/ML 1 ML VIAL IVP ONE (16:30)
[2023-04-13] MEDS ORDERED: HEPARIN SODIUM 1,000 UN/ML (10ML VL) IV ONE (17:09)
[2023-04-13 17:27] LABS: Glucose,Whole Blood 207 mg/dL (70-110)
--- NOTE | 2023-04-13 17:56 | P.PN ---
Subjective Patient is seen for follow-up for end-stage renal disease. Status post removal of left IJ permacath 04/10/2023. Blood cultures from 04/08/2023 are negative thus far. Previous blood culture on 04/07/2023 grew Klebsiella pneumonia. No significant complaints today. Last dialysis was on 04/09/2023 Patient has been confused and oriented 1. Plans for permacath placement today. Objective - Vital Signs Vital signs: Vital Signs Temp 97.4 F L 04/12/23 20:02 Pulse 62 04/13/23 14:20 Resp 16 04/13/23 14:20 BP 132/85 04/13/23 14:20 Pulse Ox 96 04/13/23 14:20 FiO2 Intake & Output 04/12/23 04/13/23 04/13/23 18:59 06:59 18:59 Weight 74.843 kg Other: Voiding Method Diaper Diaper # Voids 1 # Bowel Movements 1 - Exam Patient is awake, comfortable, in no acute distress Confused Examination of the heart S1 and S2 Examination of the lungs bilateral breath sounds are heard Abdomen is soft nontender Examination of lower extremity shows no significant edema - Labs CBC & Chem 7: 04/10/23 06:23 04/11/23 20:10 Labs: Abnormal Lab Results - Last 24 Hours (Table) 04/12/23 04/13/23 04/13/23 Range/Units 20:52 05:49 11:43 POC Glucose (mg/dL) 133 H 225 H 199 H (70-110) mg/dL 04/13/23 Range/Units 17:26 POC Glucose (mg/dL) 207 H (70-110) mg/dL Microbiology - Last 24 Hours (Table) 04/10/23 18:12 Blood Culture - Preliminary Blood 04/10/23 11:05 Catheter Tip Culture - Final Catheter Tip 04/07/23 00:04 Blood Culture - Final Blood Assessment and Plan Assessment: 1. End-stage renal disease maintained on hemodialysis Tuesday schedule via permacath. Started HD in March 2023 2. Status post donor renal transplant in 2015. 3. Chronic systolic CHF ejection fraction of 40% with mild to moderate mitral regurgitation and moderate tricuspid regurgitation. 4. Volume overload. Improved. 5. Anemia of chronic kidney disease. Iron replete. On Aranesp. 6. Metabolic acidosis secondary to chronic kidney disease and GI losses. On oral bicarb. Improved postdialysis. 7. Hypertension with chronic kidney disease. Controlled. 8. Klebsiella bacteremia on antibiotics. Status post removal of left IJ permacath 04/10/2023 Plan: Discussed with ID, wi proceed with permacath placement. Continue with antibiotics Repeat labs in a.m.
[2023-04-13 20:32] LABS: Glucose,Whole Blood 199 mg/dL (70-110)
[2023-04-13] MEDS: ATORVASTATIN 10 MG TAB PO SCH (21:06)
[2023-04-14] MEDS: SODIUM CHLORIDE 0.9% 1,000 ML IV SCH (01:20)
[2023-04-14 05:49] LABS: Glucose,Whole Blood 217 mg/dL (70-110)
[2023-04-14] MEDS: FOLIC ACID 1 MG TAB PO SCH (08:24)
[2023-04-14] MEDS: SODIUM BICARBONATE TAB 650 MG TAB PO SCH ×3 (08:24→18:51)
[2023-04-14] MEDS: THIAMINE 100 MG TAB PO SCH ×2 (08:24→18:51)
[2023-04-14] MEDS: HEPARIN SODIUM,PORCINE 5,000 UNIT/ML 1 ML VIAL SQ SCH ×2 (08:24→20:09)
[2023-04-14] MEDS: predniSONE 5 MG TAB PO SCH (08:25)
[2023-04-14] MEDS: FAMOTIDINE 20 MG TAB PO SCH (08:25)
[2023-04-14] MEDS: ASPIRIN 81 MG PO SCH (08:25)
[2023-04-14] MEDS: amLODIPine 5 MG TAB PO SCH (08:25)
[2023-04-14] MEDS: carvediloL 12.5 MG TAB PO SCH ×2 (08:26→18:51)
[2023-04-14] MEDS: TACROLIMUS 1 MG CAP PO SCH ×2 (08:27→20:09)
[2023-04-14] MEDS: TORSEMIDE 20 MG TAB PO SCH (08:27)
[2023-04-14] MEDS: INSULIN ASPART (NovoLOG) 100 UNIT/ML VIAL SQ SCH ×3 (08:57→18:33)
--- NOTE | 2023-04-14 10:55 | P.PN ---
Subjective Progress Note Date: 04/14/23 Patient is a very pleasant 72 -year-old female with a past medical history of renal transplant in 2016 currently with ESRD on dialysis //tue, hypertension, dyslipidemia, and insulin-dependent diabetes mellitus . Patient presented to the emergency department via EMS from home with a chief complaint of general weakness and burning with urination. Patient was in rehab at [facility] and was reportedly discharged home with her on Tuesday04/02/23, states that her is disabled and unable to help her very much and she believes she is still too weak to independently care for herself and needs to return to rehab. Patient underwent full evaluation in the emergency department. Vital signs upon arrival show blood pressure 147/76, heart rate 92, respiratory rate 18, temp 99.7F, SpO2 100% on room air. Labs completed and reviewed. CBC showing a stable normocytic anemia with hemoglobin of 8.9. Coagulation profile showing elevated PT of 12.8 and INR 1.2. BMP showing sodium 134, bicarb 21, BUN 13, creatinine 1.87, and GFR of 26. Liver profile unremarkable. Magnesium slightly low 1.7. Troponin elevated at 0.047 with repeat troponin is 0.043. TSH normal findings at 1.940. EKG completed showing normal sinus rhythm at 85 bpm with no significant T-wave or ST abnormalities showing no signs of acute ischemia. Patient was initially admitted to [facility] hospitalist group on 04/03/23 at 11:10 PM. We were notified of this admission at 7:49 AM on 04/04/23. During patient's workup, she was noted to develop significant encephalopathy/confusion. Infectious workup demonstrated a blood culture positive for Klebsiella which was pansensitive. Patient was started on ceftriaxone. ID was consulted and recommended exchange dialysis catheter with tip sent for culture. Catheter was removed on 04/10. Notably, patient's CellCept was discontinued after developing bacteremia, while her Prograf level was noted to be low and therefore Prograf was increased to 3 mg twice a day with repeat level pending. Repeat blood cultures have been noted to be negative. Plan is to exchange HD catheter after catheter tip culture is negative at 72 hours. 04/12 Patient was seen and examined. She is confused. Appears lethargic. Does not complain of anything. No new labs done today. Discussed with Dr. Magaña, OK to hold HD for now. 04/13 Patient was seen and examined. Sleepy but easily arousable. HD catheter tip Cx negative. Vascular surgery re-consulted for permacath insertion. BMP ordered and pending. Tacrolimus level 7.5. 04/14 Patient was seen and examined. She appears more lethargic. HD catheter inserted yesterday. Undergoing HD today. We will obtain a CT head to rule out intracranial process. General: non toxic, no distress, appears at stated age Derm: warm, dry Head: atraumatic, normocephalic, symmetric Eyes: EOMI, no lid lag, anicteric sclera Cardiovascular: S1S2 reg, no murmur Lungs: CTA bilateral, no rhonchi, no rales , no accessory muscle use Abdominal: soft, nontender to palpation Ext: no gross muscle atrophy, no edema, no contractures Neuro: no focal neuro deficits Psych: AO x 0, Lethargic Klebsiella bacteremia Acute metabolic encephalopathy Renal transplant recipient currently with ESRD on dialysis T/Th?Sat Troponin elevation, chronic and secondary to ESRD and not consistent with acute coronary syndrome Anemia of chronic disease, secondary to chronic kidney disease Wounds to bilateral lower feet Insulin-dependent Diabetes mellitus type 2 with hyperglycemia Folate deficiency Hypertension Dyslipidemia Based on my assessment of this patient, this patient meets a moderate complexity level of care. Patient has an acute diagnosis of sepsis related to Klebsiella bacteremia. Currently on Rocephin. Repeat BCx negative so far. HD catheter tip culture pending. Klebsiella bacteremia: Continue Rocephin 2g IV QD. Repeat BCx negative so far. H D catheter tip culture negative. Telemetry monitoring. ID on board. Acute metabolic encephalopathy: Likely due to above. CT head done this admission shows no acute changes. Fall precautions. PT and OT on board. Repeat CT head. Renal transplant recipient currently with ESRD on dialysis T//Sat: Monitor electrolytes. Nephrology on board. Bicarb 1300 mg PO TID, Tacro 3 mg PO BID. Repeat Tacrolimus level 7.5. Continue hemodialysis. Troponin elevation, chronic and secondary to ESRD: Not consistent with acute coronary syndrome. ASA 81mg daily. Atorvastatin 10mg HS. Anemia of chronic disease, secondary to chronic kidney disease Wounds to bilateral lower feet: Wound care consult recommendations appreciated. Insulin-dependent Diabetes mellitus type 2 with hyperglycemia: Accuchecks ACHS + LD SSI. Folate deficiency: Continue folic acid 1mg daily. Hypertension: Amlodipine 5mg daily, carvedilol 25 mg twice daily. Dyslipidemia: Lipitor as above. Heparin SQ for DVT prophylaxis. FULL CODE. I have reviewed the following devops consultant notes: Nephrology note. I have reviewed the results of the following tests: I have ordered the following tests: CT brain. I have discussed the care of this patient with the following independent historian: I have independently interpreted the following test below: Discussed with RN regarding mentation. I have discussed the management of this patient with the following physician: Objective - Vital Signs Vital signs: Vital Signs Temp 96.6 F L 04/14/23 10:25 Pulse 88 04/14/23 07:05 Resp 16 04/14/23 07:05 BP 110/73 04/14/23 07:05 Pulse Ox 96 04/14/23 07:05 FiO2 Intake & Output 04/13/23 04/14/23 04/14/23 18:59 06:59 18:59 Other: Voiding Method Diaper # Voids 1 # Bowel Movements 1 1 - Labs CBC & Chem 7: 04/10/23 06:23 04/11/23 20:10 Labs: Abnormal Lab Results - Last 24 Hours (Table) 04/13/23 04/13/23 04/13/23 Range/Units 11:43 17:26 20:30 POC Glucose (mg/dL) 199 H 207 H 199 H (70-110) mg/dL 04/14/23 Range/Units 05:39 POC Glucose (mg/dL) 217 H (70-110) mg/dL Microbiology - Last 24 Hours (Table) 04/08/23 19:07 Blood Culture - Final Blood 04/10/23 18:12 Blood Culture - Preliminary Blood
[2023-04-14 11:39] LABS: Glucose,Whole Blood 168 mg/dL (70-110)
--- NOTE | 2023-04-14 11:42 | P.PN ---
Subjective Progress Note Date: 04/13/23 Principal diagnosis: Bacteremia Patient is a 72-year-old -[place] female with a comorbidities including diabetes mellitus hypertension hyperlipidemia end-stage renal disease on hemodialysis Tuesday via permacath patient presenting to the hospital with concerns for unable to care of self at home, patient did have blood cultures came back positive with gram-negative bacilli concerning for possible dialysis catheter infection. Dialysis catheter was removed 04/10/2023 On today's evaluation that is 04/13/2023, the patient remains to be afebrile, the patient is breathing comfortably on room air , the patient is sleepy did not answer any question and vomiting diarrhea or any other changes reported by the nursing staff No lab draw today. Blood culture with Klebsiella, repeat blood culture negative so far Objective - Vital Signs Vital signs: Vital Signs Temp 97.4 F L 04/12/23 20:02 Pulse 66 04/13/23 07:00 Resp 16 04/13/23 08:00 BP 171/87 04/13/23 07:00 Pulse Ox 98 04/13/23 07:00 FiO2 Intake & Output 04/12/23 04/13/23 04/13/23 18:59 06:59 18:59 Weight 74.843 kg Other: Voiding Method Diaper Diaper # Voids 1 # Bowel Movements 1 - Exam GENERAL DESCRIPTION: Elderly female lying in bed in no distress RESPIRATORY SYSTEM: Unlabored breathing , decreased breath sounds at bases HEART: S1 S2 regular rate and rhythm ABDOMEN: Soft , no tenderness EXTREMITIES: No edema feet - Labs CBC & Chem 7: 04/10/23 06:23 04/11/23 20:10 Labs: Abnormal Lab Results - Last 24 Hours (Table) 04/12/23 04/12/23 04/13/23 Range/Units 16:58 20:52 05:49 POC Glucose (mg/dL) 176 H 133 H 225 H (70-110) mg/dL 04/13/23 Range/Units 11:43 POC Glucose (mg/dL) 199 H (70-110) mg/dL Microbiology - Last 24 Hours (Table) 04/10/23 18:12 Blood Culture - Preliminary Blood 04/10/23 11:05 Catheter Tip Culture - Final Catheter Tip 04/07/23 00:04 Blood Culture - Final Blood Assessment and Plan (1) Bacteremia Current Visit: Yes Status: Acute Code(s): R78.81 - BACTEREMIA SNOMED Code(s): 4889161 (2) Unstageable pressure ulcer of left heel Current Visit: Yes Status: Acute Code(s): L89.620 - PRESSURE ULCER OF LEFT HEEL, UNSTAGEABLE SNOMED Code(s): 11159951846715724 Plan: 1-Patient with gram-negative bacteremia high clinical suspicion for possible permacatheter infection in this patient with no evidence of any abdominal tenderness on Examination and urine has been negative patient did have bilateral heel pressure ulcer with some necrotic tissue but no significant redness or foul-smelling drainage was noticed 2-blood culture has been repeated And are currently pending. 3vascular surgery has remove the dialysis catheter and the tip culture so far negative. 4patient to continue local wound care to the left heel pressure ulcer with the Medihoney followed by moist dressing to keep the area of the pressure 5-patient to continue with Rocephin , repeat culture have been negative patient has been cleared to go for placement of another permacatheter communicated with the nephrology Dictation was produced using [employer] dictation software. please excuse any gramma tical, word or spelling errors. Time with Patient: Less than 30
--- NOTE | 2023-04-14 11:43 | P.PN ---
Subjective Progress Note Date: 04/14/23 Principal diagnosis: Bacteremia Patient is a 72-year-old -[place] female with a comorbidities including diabetes mellitus hypertension hyperlipidemia end-stage renal disease on hemodialysis Tuesday via permacath patient presenting to the hospital with concerns for unable to care of self at home, patient did have blood cultures came back positive with gram-negative bacilli concerning for possible dialysis catheter infection. Dialysis catheter was removed 04/10/2023, the patient did have a new dialysis catheter placement on 04/13/2023 On today's evaluation that is 04/14/2023, the patient continues to be afebrile, the patient is breathing comfortably on 3 L nasal cannula oxygen , the patient remains to be lethargic and did not answer any question and vomiting diarrhea or any other changes reported by the nursing staff No lab draw today. Blood culture with Klebsiella, repeat blood culture negative so far Objective - Vital Signs Vital signs: Vital Signs Temp 96.6 F L 04/14/23 10:25 Pulse 88 04/14/23 07:05 Resp 16 04/14/23 07:05 BP 110/73 04/14/23 07:05 Pulse Ox 96 04/14/23 07:05 FiO2 Intake & Output 04/13/23 04/14/23 04/14/23 18:59 06:59 18:59 Other: Voiding Method Diaper # Voids 1 # Bowel Movements 1 1 - Exam GENERAL DESCRIPTION: Elderly female lying in bed in no distress RESPIRATORY SYSTEM: Unlabored breathing , decreased breath sounds at bases HEART: S1 S2 regular rate and rhythm ABDOMEN: Soft , no tenderness EXTREMITIES: No edema feet - Labs CBC & Chem 7: 04/10/23 06:23 04/11/23 20:10 Labs: Abnormal Lab Results - Last 24 Hours (Table) 04/13/23 04/13/23 04/13/23 Range/Units 11:43 17:26 20:30 POC Glucose (mg/dL) 199 H 207 H 199 H (70-110) mg/dL 04/14/23 04/14/23 Range/Units 05:39 11:37 POC Glucose (mg/dL) 217 H 168 H (70-110) mg/dL Microbiology - Last 24 Hours (Table) 04/08/23 19:07 Blood Culture - Final Blood 04/10/23 18:12 Blood Culture - Preliminary Blood Assessment and Plan (1) Bacteremia Current Visit: Yes Status: Acute Code(s): R78.81 - BACTEREMIA SNOMED Code(s): 6018291 (2) Unstageable pressure ulcer of left heel Current Visit: Yes Status: Acute Code(s): L89.620 - PRESSURE ULCER OF LEFT HEEL, UNSTAGEABLE SNOMED Code(s): 57859128240553091 Plan: 1-Patient with gram-negative bacteremia high clinical suspicion for possible permacatheter infection in this patient with no evidence of any abdominal tenderness on Examination and urine has been negative patient did have bilateral heel pressure ulcer with some necrotic tissue but no significant redness or foul-smelling drainage was noticed 2-blood culture has been repeated And are currently pending. 3vascular surgery has remove the dialysis catheter and the tip culture so far negative. 4patient to continue local wound care to the left heel pressure ulcer with the Medihoney followed by moist dressing to keep the area of the pressure 5-patient did have a new dialysis catheter placement, to continue with Rocephin and monitor clinical course closely Dictation was produced using [employer] dictation software. please excuse any grammatical, word or spelling errors. Time with Patient: Less than 30
--- NOTE | 2023-04-14 13:53 | CT ---
EXAMINATION TYPE: CT brain wo con DATE OF EXAM: 04/14/2023 COMPARISON: 04/07/2023 INDICATION: ams DLP: 1077.4 mGycm, Automated exposure control for dose reduction was used. CONTRAST: None CT of the brain is performed utilizing 3 mm thick sections through the posterior fossa and 3 mm thick sections through the remaining calvarium. Study is performed within 24 hours of arrival to the hosp ital. No abnormal hyperdensity is present to suggest an acute intracranial hemorrhage. No mass lesion is evident. No acute infarcts are evident. Couple small lacunar infarcts within the inferior left basal ganglion may be present. Virchow-Rene space could be considered. Findings were present previously Ventricles and sulci are somewhat prominent for the patient age. Paranasal sinuses and mastoid air cells within the [id number] are clear. IMPRESSION: 1. No acute intracranial process. Follow-up MRI can be performed as clinically indicated. 2. Old appearing lacunar infarcts in the inferior basal ganglia are again evident. 3. Mild age-related atrophy
--- NOTE | 2023-04-14 14:13 | P.PN ---
Subjective Patient is seen for follow-up for end-stage renal disease. Status post removal of left IJ permacath 04/10/2023. Blood cultures from 04/08/2023 are negative thus far. Previous blood culture on 04/07/2023 grew Klebsiella pneumonia. No significant complaints today. Patient has been confused and oriented 1. Seen on hemodialysis. The permacath was placed in the right femoral vein. Objective - Vital Signs Vital signs: Vital Signs Temp 96.6 F L 04/14/23 10:25 Pulse 88 04/14/23 07:05 Resp 16 04/14/23 07:05 BP 110/73 04/14/23 07:05 Pulse Ox 96 04/14/23 07:05 FiO2 Intake & Output 04/13/23 04/14/23 04/14/23 18:59 06:59 18:59 Intake Total 600 Balance 600 Intake: Oral 600 Other: Voiding Method Diaper Diaper # Voids 1 # Bowel Movements 1 1 - Exam Patient is awake, comfortable, in no acute distress Confused Examination of the heart S1 and S2 Examination of the lungs bilateral breath sounds are heard Abdomen is soft nontender Examination of lower extremity shows no significant edema - Labs CBC & Chem 7: 04/10/23 06:23 04/11/23 20:10 Labs: Abnormal Lab Results - Last 24 Hours (Table) 04/13/23 04/13/23 04/14/23 Range/Units 17:26 20:30 05:39 POC Glucose (mg/dL) 207 H 199 H 217 H (70-110) mg/dL 04/14/23 Range/Units 11:37 POC Glucose (mg/dL) 168 H (70-110) mg/dL Microbiology - Last 24 Hours (Table) 04/08/23 19:07 Blood Culture - Final Blood 04/10/23 18:12 Blood Culture - Preliminary Blood Assessment and Plan Assessment: 1. End-stage renal disease maintained on hemodialysis Tuesday schedule via permacath. Started HD in March 2023 2. Status post donor renal transplant in 2015. 3. Chronic systolic CHF ejection fraction of 40% with mild to moderate mitral regurgitation and moderate tricuspid regurgitation. 4. Volume overload. Improved. 5. Anemia of chronic kidney disease. Iron replete. On Aranesp. 6. Metabolic acidosis secondary to chronic kidney disease and GI losses. On oral bicarb. Improved postdialysis. 7. Hypertension with chronic kidney disease. Controlled. 8. Klebsiella bacteremia on antibiotics. Status post removal of left IJ permacath 04/10/2023 . New femoral permacath placed on 04/13/2023. Repeat blood cultures have been negative. Plan: Continue with antibiotics Repeat labs in a.m.
[2023-04-14 16:27] LABS: Anisocytosis Slight; HCT 30.7 % (34.0-46.0); Hypochromasia Marked; MCH 28.4 pg (25.0-35.0); MCHC 29.3 g/dL (31.0-37.0); Macrocytosis Slight; Mean Platelet Volume 10.3; Platelet Count 144 k/uL (150-450); RBC 3.17 m/uL (3.80-5.40); RDW 18.4 % (11.5-15.5)
[2023-04-14 17:24] LABS: Glucose,Whole Blood 136 mg/dL (70-110)
[2023-04-14 17:44] LABS: African American GFR (CKD) 34 (>60 ml/min/1.73 sqM); Anion Gap 8 mmol/L; Blood Urea Nitrogen 18 mg/dL (7-17); Calcium 8.2 mg/dL (8.4-10.2); Carbon Dioxide 29 mmol/L (22-30); Chloride 99 mmol/L (98-107); Glucose 162 mg/dL (74-99); Non-African American GFR(CKD) 29 (>60 ml/min/1.73 sqM); Sodium 136 mmol/L (137-145)
[2023-04-14 17:46] LABS: Potassium 3.6 mmol/L (3.5-5.1)
[2023-04-14 19:31] LABS: Glucose,Whole Blood 140 mg/dL (70-110)
[2023-04-14] MEDS: HYDROcodone/APAP 5-325MG 1 EACH TAB PO PRN (20:12)
[2023-04-14] MEDS: ATORVASTATIN 10 MG TAB PO SCH (20:12)
--- NOTE | 2023-04-14 20:17 | XR ---
EXAMINATION: XR chest 1V portable DATE AND TIME: 04/14/2023 5:43 PM CLINICAL INDICATION: PHH; r/o PNA TECHNIQUE: Departmental protocol COMPARISON: 04/08/2023 FINDINGS: Moderately prominent bilateral pleural effusions with moderately prominent bibasilar passive atelecta sis. Concurrent bibasilar pneumonia can't be excluded only on clinical grounds. The upper and mid lung parenchyma is predominantly clear, particularly on the left. Enlarged cardiac silhouette redemonstrated, stable. No acute skeletal or soft tissue findings. IMPRESSION: Prominent bibasilar findings.
[2023-04-15] MEDS: SODIUM CHLORIDE 0.9% 1,000 ML IV SCH (02:45)
[2023-04-15 05:48] LABS: Glucose,Whole Blood 214 mg/dL (70-110)
[2023-04-15] MEDS: INSULIN ASPART (NovoLOG) 100 UNIT/ML VIAL SQ SCH ×3 (06:47→17:51)
[2023-04-15 07:00] LABS: African American GFR (CKD) 35 (>60 ml/min/1.73 sqM); Anion Gap 14 mmol/L; Blood Urea Nitrogen 19 mg/dL (7-17); Calcium 8.2 mg/dL (8.4-10.2); Carbon Dioxide 22 mmol/L (22-30); Chloride 100 mmol/L (98-107); Glucose 190 mg/dL (74-99); Non-African American GFR(CKD) 30 (>60 ml/min/1.73 sqM); Potassium 3.6 mmol/L (3.5-5.1); Sodium 136 mmol/L (137-145)
[2023-04-15 08:31] LABS: Anisocytosis Slight; HCT 28.2 % (34.0-46.0); HGB 8.3 gm/dL (11.4-16.0); Hypochromasia Marked; MCH 29.2 pg (25.0-35.0); MCHC 29.3 g/dL (31.0-37.0); MCV 99.5 fL (80.0-100.0); Macrocytosis Moderate; Mean Platelet Volume 9.6; Platelet Count 100 k/uL (150-450); RBC 2.84 m/uL (3.80-5.40); RDW 18.7 % (11.5-15.5); WBC 12.5 k/uL (3.8-10.6)
[2023-04-15] MEDS: amLODIPine 5 MG TAB PO SCH (09:14)
[2023-04-15] MEDS: carvediloL 12.5 MG TAB PO SCH ×2 (09:15→17:06)
[2023-04-15] MEDS: TORSEMIDE 20 MG TAB PO SCH (09:16)
[2023-04-15] MEDS: HEPARIN SODIUM,PORCINE 5,000 UNIT/ML 1 ML VIAL SQ SCH ×2 (09:16→23:04)
[2023-04-15] MEDS: SODIUM BICARBONATE TAB 650 MG TAB PO SCH ×3 (09:27→17:06)
[2023-04-15] MEDS: ASPIRIN 81 MG PO SCH (09:27)
[2023-04-15] MEDS: FOLIC ACID 1 MG TAB PO SCH (09:28)
[2023-04-15] MEDS: THIAMINE 100 MG TAB PO SCH ×2 (09:28→17:06)
[2023-04-15] MEDS: FAMOTIDINE 20 MG TAB PO SCH (09:28)
[2023-04-15] MEDS: predniSONE 5 MG TAB PO SCH (09:28)
[2023-04-15] MEDS: TACROLIMUS 1 MG CAP PO SCH ×2 (09:28→17:06)
[2023-04-15 11:18] LABS: Glucose,Whole Blood 235 mg/dL (70-110)
--- NOTE | 2023-04-15 11:54 | P.PN ---
Subjective Progress Note Date: 04/15/23 Patient is a very pleasant 72 -year-old female with a past medical history of renal transplant in 2016 currently with ESRD on dialysis //tue, hypertension, dyslipidemia, and insulin-dependent diabetes mellitus . Patient presented to the emergency department via EMS from home with a chief complaint of general weakness and burning with urination. Patient was in rehab at [facility] and was reportedly discharged home with her on Tuesday04/02/23, states that her is disabled and unable to help her very much and she believes she is still too weak to independently care for herself and needs to return to rehab. Patient underwent full evaluation in the emergency department. Vital signs upon arrival show blood pressure 147/76, heart rate 92, respiratory rate 18, temp 99.7F, SpO2 100% on room air. Labs completed and reviewed. CBC showing a stable normocytic anemia with hemoglobin of 8.9. Coagulation profile showing elevated PT of 12.8 and INR 1.2. BMP showing sodium 134, bicarb 21, BUN 13, creatinine 1.87, and GFR of 26. Liver profile unremarkable. Magnesium slightly low 1.7. Troponin elevated at 0.047 with repeat troponin is 0.043. TSH normal findings at 1.940. EKG completed showing normal sinus rhythm at 85 bpm with no significant T-wave or ST abnormalities showing no signs of acute ischemia. Patient was initially admitted to [facility] hospitalist group on 04/03/23 at 11:10 PM. We were notified of this admission at 7:49 AM on 04/04/23. During patient's workup, she was noted to develop significant encephalopathy/confusion. Infectious workup demonstrated a blood culture positive for Klebsiella which was pansensitive. Patient was started on ceftriaxone. ID was consulted and recommended exchange dialysis catheter with tip sent for culture. Catheter was removed on 04/10. Notably, patient's CellCept was discontinued after developing bacteremia, while her Prograf level was noted to be low and therefore Prograf was increased to 3 mg twice a day with repeat level pending. Repeat blood cultures have been noted to be negative. Plan is to exchange HD catheter after catheter tip culture is negative at 72 hours. 04/12 Patient was seen and examined. She is confused. Appears lethargic. Does not complain of anything. No new labs done today. Discussed with Dr. Magaña, OK to hold HD for now. 04/13 Patient was seen and examined. Sleepy but easily arousable. HD catheter tip Cx negative. Vascular surgery re-consulted for permacath insertion. BMP ordered and pending. Tacrolimus level 7.5. 04/14 Patient was seen and examined. She appears more lethargic. HD catheter inserted yesterday. Undergoing HD today. We will obtain a CT head to rule out intracranial process. 04/15 Patient was seen and examined. Clinical condition essentially unchanged. Very confused. Not appropriate for SNF at this time. Discussed with Dr. Blackwood, obtain ESR, procalcitonin and CRP, hopeful improvement in mentation with dialysis. CBC shows Hg 12.5, Hg 8.3, Plt 100. BMP Na 136, BUN 19, Cr 1.67, glucose 190, Ca 8.2. ESR 44. CRP 16. Procal 0.41. CT head negative. CXR shows bilateral pleural effusions with atelectasis. Will discuss with Dr. Blackwood regarding re-culturing and escalating antibiotics. General: non toxic, no distress, appears at stated age Derm: warm, dry Head: atraumatic, normocephalic, symmetric Eyes: EOMI, no lid lag, anicteric sclera Cardiovascular: S1S2 reg, no murmur Lungs: CTA bilateral, no rhonchi, no rales , no accessory muscle use Abdominal: soft, nontender to palpation Ext: no gross muscle atrophy, no edema, no contractures Neuro: no focal neuro deficits Psych: AO x 0, Lethargic Klebsiella bacteremia Acute metabolic encephalopathy Renal transplant recipient currently with ESRD on dialysis T/Th/Sat Troponin elevation, chronic and secondary to ESRD and not consistent with acute coronary syndrome Anemia of chronic disease, secondary to chronic kidney disease Wounds to bilateral lower feet Insulin-dependent Diabetes mellitus type 2 with hyperglycemia Folate deficiency Hypertension Dyslipidemia Based on my assessment of this patient, this patient meets a high complexity level of care. Patient has an acute diagnosis of sepsis related to Klebsiella bacteremia. Currently on Rocephin. Repeat BCx negative so far. HD catheter tip culture negative. Klebsiella bacteremia: Continue Rocephin 2g IV QD. Repeat BCx negative so far. HD catheter tip culture negative. Telemetry monitoring. ID on board. Acute metabolic encephalopathy: Likely due to above. CT head done this admission shows no acute changes. Fall precautions. PT and OT on board. Renal transplant recipient currently with ESRD on dialysis T/Th/Sat: Monitor electrolytes. Nephrology on board. Bicarb 1300 mg PO TID, Tacro 3 mg PO BID. Repeat Tacrolimus level 7.5. Continue hemodialysis. Troponin elevation, chronic and secondary to ESRD: Not consistent with acute coronary syndrome. ASA 81mg daily. Atorvastatin 10mg HS. Anemia of chronic disease, secondary to chronic kidney disease Wounds to bilateral lower feet: Wound care consult recommendations appreciated. Insulin-dependent Diabetes mellitus type 2 with hyperglycemia: Accuchecks ACHS + LD SSI. Folate deficiency: Continue folic acid 1mg daily. Hypertension: Amlodipine 5mg daily, carvedilol 25 mg twice daily. Dyslipidemia: Lipitor as above. Heparin SQ for DVT prophylaxis. FULL CODE. I have reviewed the following sales consultant residential manager notes: Nephrology, ID note. I have reviewed the results of the following tests: CT brain, CBC, BMP, ESR, CRP, Procal I have ordered the following tests: I have discussed the care of this patient with the following independent historian: I have independently interpreted the following test below: Discussed with RN regarding mentation. I have discussed the management of this patient with the following physician: Discussed with Dr. Blackwood. Objective - Vital Signs Vital signs: Vital Signs Temp 97.6 F 04/15/23 08:00 Pulse 62 04/15/23 08:00 Resp 18 04/14/23 23:51 BP 94/49 04/15/23 08:00 Pulse Ox 97 04/15/23 08:00 FiO2 Intake & Output 04/14/23 04/15/23 04/15/23 18:59 06:59 18:59 Intake Total 1100 290 Output Total 500 Balance 600 290 Weight 74.843 kg Intake: Intake, IV Titration 290 Amount Sodium Chloride 0.9% 1, 240 000 ml @ 20 mls/hr IV . Q24H [facility] Rx#:[id number] cefTRIAXone 2 gm In 50 Sodium Chloride 0.9% 50 ml @ 100 mls/hr IVPB Q24HR [facility] Rx#:[id number] Oral 600 Hemodialysis 500 Output: Hemodialysis 500 Other: Voiding Method Diaper Diaper # Voids 1 # Bowel Movements 1 - Labs CBC & Chem 7: 04/15/23 07:23 04/15/23 06:06 Labs: Abnormal Lab Results - Last 24 Hours (Table) 04/14/23 04/14/23 04/14/23 Range/Units 16:14 16:14 17:22 WBC 12.0 H (3.8-10.6) k/uL RBC 3.17 L (3.80-5.40) m/uL Hgb 9.0 L (11.4-16.0) gm/dL Hct 30.7 L (34.0-46.0) % MCHC 29.3 L (31.0-37.0) g/dL RDW 18.4 H (11.5-15.5) % Plt Count 144 L (150-450) k/uL ESR (0-30) mm/Hr Sodium 136 L (137-145) mmol/L BUN 18 H (7-17) mg/dL Creatinine 1.72 H (0.52-1.04) mg/dL Glucose 162 H (74-99) mg/dL POC Glucose (mg/dL) 136 H (70-110) mg/dL Calcium 8.2 L (8.4-10.2) mg/dL C-Reactive Protein (<1.0) mg/dL Procalcitonin (0.02-0.09) ng/mL 04/14/23 04/15/23 04/15/23 Range/Units 19:30 05:46 06:06 WBC (3.8-10.6) k/uL RBC (3.80-5.40) m/uL Hgb (11.4-16.0) gm/dL Hct (34.0-46.0) % MCHC (31.0-37.0) g/dL RDW (11.5-15.5) % Plt Count (150-450) k/uL ESR (0-30) mm/Hr Sodium 136 L (137-145) mmol/L BUN 19 H (7-17) mg/dL Creatinine 1.67 H (0.52-1.04) mg/dL Glucose 190 H (74-99) mg/dL POC Glucose (mg/dL) 140 H 214 H (70-110) mg/dL Calcium 8.2 L (8.4-10.2) mg/dL C-Reactive Protein (<1.0) mg/dL Procalcitonin (0.02-0.09) ng/mL 04/15/23 04/15/23 04/15/23 Range/Units 07:23 07:23 07:23 WBC 12.5 H (3.8-10.6) k/uL RBC 2.84 L (3.80-5.40) m/uL Hgb 8.3 L (11.4-16.0) gm/dL Hct 28.2 L (34.0-46.0) % MCHC 29.3 L (31.0-37.0) g/dL RDW 18.7 H (11.5-15.5) % Plt Count 100 L (150-450) k/uL ESR 44 H (0-30) mm/Hr Sodium (137-145) mmol/L BUN (7-17) mg/dL Creatinine (0.52-1.04) mg/dL Glucose (74-99) mg/dL POC Glucose (mg/dL) (70-110) mg/dL Calcium (8.4-10.2) mg/dL C-Reactive Protein (<1.0) mg/dL Procalcitonin 0.41 H (0.02-0.09) ng/mL 04/15/23 04/15/23 Range/Units 07:23 11:17 WBC (3.8-10.6) k/uL RBC (3.80-5.40) m/uL Hgb (11.4-16.0) gm/dL Hct (34.0-46.0) % MCHC (31.0-37.0) g/dL RDW (11.5-15.5) % Plt Count (150-450) k/uL ESR (0-30) mm/Hr Sodium (137-145) mmol/L BUN (7-17) mg/dL Creatinine (0.52-1.04) mg/dL Glucose (74-99) mg/dL POC Glucose (mg/dL) 235 H (70-110) mg/dL Calcium (8.4-10.2) mg/dL C-Reactive Protein 16.0 H (<1.0) mg/dL Procalcitonin (0.02-0.09) ng/mL
--- NOTE | 2023-04-15 15:59 | P.PN ---
Subjective Progress Note Date: 04/15/23 Principal diagnosis: Bacteremia Patient is a 72-year-old -[place] female with a comorbidities including diabetes mellitus hypertension hyperlipidemia end-stage renal disease on hemodialysis Tuesday via permacath patient presenting to the hospital with concerns for unable to care of self at home, patient did have blood cultures came back positive with gram-negative bacilli concerning for possible dialysis catheter infection. Dialysis catheter was removed 04/10/2023, the patient did have a new dialysis catheter placement on 04/13/2023 On today's evaluation that is 04/15/2023, the patient remains to be afebrile, the patient is breathing comfortably on 2 L nasal cannula oxygen , the patient remains to be lethargic and did not answer any question , no vomiting diarrhea or any other changes reported by the nursing staff White count is 12.5, creatinine 1.67, CRP 16 procalcitonin is 0.41. Blood culture with Klebsiella, repeat blood culture negative so far Objective - Vital Signs Vital signs: Vital Signs Temp 97.6 F 04/15/23 08:00 Pulse 62 04/15/23 08:00 Resp 18 04/14/23 23:51 BP 94/49 04/15/23 08:00 Pulse Ox 97 04/15/23 08:00 FiO2 Intake & Output 04/14/23 04/15/23 04/15/23 18:59 06:59 18:59 Intake Total 1100 290 Output Total 500 Balance 600 290 Weight 74.843 kg Intake: Intake, IV Titration 290 Amount Sodium Chloride 0.9% 1, 240 000 ml @ 20 mls/hr IV . Q24H [facility] Rx#:[id number] cefTRIAXone 2 gm In 50 Sodium Chloride 0.9% 50 ml @ 100 mls/hr IVPB Q24HR [facility] Rx#:[id number] Oral 600 Hemodialysis 500 Output: Hemodialysis 500 Other: Voiding Method Diaper Diaper # Voids 1 # Bowel Movements 1 - Exam GENERAL DESCRIPTION: Elderly female lying in bed in no distress RESPIRATORY SYSTEM: Unlabored breathing , decreased breath sounds at bases HEART: S1 S2 regular rate and rhythm ABDOMEN: Soft , no tenderness EXTREMITIES: Heel pressure ulcer unstageable but no redness - Labs CBC & Chem 7: 04/15/23 07:23 04/15/23 06:06 Labs: Abnormal Lab Results - Last 24 Hours (Table) 04/14/23 04/14/23 04/14/23 Range/Units 16:14 16:14 17:22 WBC 12.0 H (3.8-10.6) k/uL RBC 3.17 L (3.80-5.40) m/uL Hgb 9.0 L (11.4-16.0) gm/dL Hct 30.7 L (34.0-46.0) % MCHC 29.3 L (31.0-37.0) g/dL RDW 18.4 H (11.5-15.5) % Plt Count 144 L (150-450) k/uL ESR (0-30) mm/Hr Sodium 136 L (137-145) mmol/L BUN 18 H (7-17) mg/dL Creatinine 1.72 H (0.52-1.04) mg/dL Glucose 162 H (74-99) mg/dL POC Glucose (mg/dL) 136 H (70-110) mg/dL Calcium 8.2 L (8.4-10.2) mg/dL C-Reactive Protein (<1.0) mg/dL Procalcitonin (0.02-0.09) ng/mL 04/14/23 04/15/23 04/15/23 Range/Units 19:30 05:46 06:06 WBC (3.8-10.6) k/uL RBC (3.80-5.40) m/uL Hgb (11.4-16.0) gm/dL Hct (34.0-46.0) % MCHC (31.0-37.0) g/dL RDW (11.5-15.5) % Plt Count (150-450) k/uL ESR (0-30) mm/Hr Sodium 136 L (137-145) mmol/L BUN 19 H (7-17) mg/dL Creatinine 1.67 H (0.52-1.04) mg/dL Glucose 190 H (74-99) mg/dL POC Glucose (mg/dL) 140 H 214 H (70-110) mg/dL Calcium 8.2 L (8.4-10.2) mg/dL C-Reactive Protein (<1.0) mg/dL Procalcitonin (0.02-0.09) ng/mL 04/15/23 04/15/23 04/15/23 Range/Units 07:23 07:23 07:23 WBC 12.5 H (3.8-10.6) k/uL RBC 2.84 L (3.80-5.40) m/uL Hgb 8.3 L (11.4-16.0) gm/dL Hct 28.2 L (34.0-46.0) % MCHC 29.3 L (31.0-37.0) g/dL RDW 18.7 H (11.5-15.5) % Plt Count 100 L (150-450) k/uL ESR 44 H (0-30) mm/Hr Sodium (137-145) mmol/L BUN (7-17) mg/dL Creatinine (0.52-1.04) mg/dL Glucose (74-99) mg/dL POC Glucose (mg/dL) (70-110) mg/dL Calcium (8.4-10.2) mg/dL C-Reactive Protein (<1.0) mg/dL Procalcitonin 0.41 H (0.02-0.09) ng/mL 04/15/23 04/15/23 Range/Units 07:23 11:17 WBC (3.8-10.6) k/uL RBC (3.80-5.40) m/uL Hgb (11.4-16.0) gm/dL Hct (34.0-46.0) % MCHC (31.0-37.0) g/dL RDW (11.5-15.5) % Plt Count (150-450) k/uL ESR (0-30) mm/Hr Sodium (137-145) mmol/L BUN (7-17) mg/dL Creatinine (0.52-1.04) mg/dL Glucose (74-99) mg/dL POC Glucose (mg/dL) 235 H (70-110) mg/dL Calcium (8.4-10.2) mg/dL C-Reactive Protein 16.0 H (<1.0) mg/dL Procalcitonin (0.02-0.09) ng/mL Assessment and Plan (1) Bacteremia Current Visit: Yes Status: Acute Code(s): R78.81 - BACTEREMIA SNOMED C ode(s): 6809077 (2) Unstageable pressure ulcer of left heel Current Visit: Yes Status: Acute Code(s): L89.620 - PRESSURE ULCER OF LEFT HEEL, UNSTAGEABLE SNOMED Code(s): 81943952301898538 Plan: 1-Patient with gram-negative bacteremia high clinical suspicion for possible permacatheter infection in this patient with no evidence of any abdominal tenderness on Examination and urine has been negative patient did have bilateral heel pressure ulcer with some necrotic tissue but no significant redness or foul-smelling drainage was noticed 2-blood culture has been repeated And are currently pending. 3patient to continue local wound care to the left heel pressure ulcer with the Medihoney followed by moist dressing to keep the area of the pressure 4-vascular surgery has remove the dialysis catheter and the tip culture so far negative.patient did have a new dialysis catheter placement, to continue with Rocephin and monitor clinical course closely Dictation was produced using [employer] dictation software. please excuse any grammatical, word or spelling errors. Time with Patient: Less than 30
[2023-04-15 17:20] LABS: Glucose,Whole Blood 193 mg/dL (70-110)
[2023-04-15 20:02] LABS: Glucose,Whole Blood 198 mg/dL (70-110)
--- NOTE | 2023-04-15 21:05 | P.PN ---
Subjective Patient is seen for follow-up for end-stage renal disease. Status post removal of left IJ permacath 04/10/2023. Blood cultures from 04/08/2023 are negative thus far. Previous blood culture on 04/07/2023 grew Klebsiella pneumonia. No significant complaints today. Patient has been confused and oriented 1. S/p hemodialysis yesterday. The permacath was placed in the right femoral vein. Objective - Vital Signs Vital signs: Vital Signs Temp 96.2 F L 04/15/23 18:50 Pulse 68 04/15/23 20:25 Resp 14 04/15/23 20:25 BP 111/62 04/15/23 20:25 Pulse Ox 99 04/15/23 20:25 FiO2 Intake & Output 04/15/23 04/15/23 04/16/23 06:59 18:59 06:59 Intake Total 290 360 Balance 290 360 Intake: Intake, IV Titration 290 240 Amount Sodium Chloride 0.9% 1, 240 240 000 ml @ 20 mls/hr IV . Q24H [facility] Rx#:[id number] cefTRIAXone 2 gm In 50 Sodium Chloride 0.9% 50 ml @ 100 mls/hr IVPB Q24HR [facility] Rx#:[id number] Oral 120 Other: Voiding Method Diaper # Voids 1 # Bowel Movements 1 - Exam Patient is awake, comfortable, in no acute distress Confused Examination of the heart S1 and S2 Examination of the lungs bilateral breath sounds are heard Abdomen is soft nontender Examination of lower extremity shows 1+ edema uper thighs. - Labs CBC & Chem 7: 04/15/23 07:23 04/15/23 06:06 Labs: Abnormal Lab Results - Last 24 Hours (Table) 04/15/23 04/15/23 04/15/23 Range/Units 05:46 06:06 07:23 WBC (3.8-10.6) k/uL RBC (3.80-5.40) m/uL Hgb (11.4-16.0) gm/dL Hct (34.0-46.0) % MCHC (31.0-37.0) g/dL RDW (11.5-15.5) % Plt Count (150-450) k/uL ESR (0-30) mm/Hr Sodium 136 L (137-145) mmol/L BUN 19 H (7-17) mg/dL Creatinine 1.67 H (0.52-1.04) mg/dL Glucose 190 H (74-99) mg/dL POC Glucose (mg/dL) 214 H (70-110) mg/dL Calcium 8.2 L (8.4-10.2) mg/dL C-Reactive Protein (<1.0) mg/dL Procalcitonin 0.41 H (0.02-0.09) ng/mL 04/15/23 04/15/23 04/15/23 Range/Units :26 12: 07: WBC 12.5 H (3.8-10.6) k/uL RBC 2.84 L (3.80-5.40) m/uL Hgb 8.3 L (11.4-16.0) gm/dL Hct 28.2 L (34.0-46.0) % MCHC 29.3 L (31.0-37.0) g/dL RDW 18.7 H (11.5-15.5) % Plt Count 100 L (150-450) k/uL ESR 44 H (0-30) mm/Hr Sodium (137-145) mmol/L BUN (7-17) mg/dL Creatinine (0.52-1.04) mg/dL Glucose (74-99) mg/dL POC Glucose (mg/dL) (70-110) mg/dL Calcium (8.4-10.2) mg/dL C-Reactive Protein 16.0 H (<1.0) mg/dL Procalcitonin (0.02-0.09) ng/mL 04/15/23 04/15/23 04/15/23 Range/Units 11: 17:18 20:01 WBC (3.8-10.6) k/uL RBC (3.80-5.40) m/uL Hgb (11.4-16.0) gm/dL Hct (34.0-46.0) % MCHC (31.0-37.0) g/dL RDW (11.5-15.5) % Plt Count (150-450) k/uL ESR (0-30) mm/Hr Sodium (137-145) mmol/L BUN (7-17) mg/dL Creatinine (0.52-1.04) mg/dL Glucose (74-99) mg/dL POC Glucose (mg/dL) 235 H 193 H 198 H (70-110) mg/dL Calcium (8.4-10.2) mg/dL C-Reactive Protein (<1.0) mg/dL Procalcitonin (0.02-0.09) ng/mL Assessment and Plan Assessment: 1. End-stage renal disease maintained on hemodialysis Tuesday schedule via permacath. Started HD in March 2023 2. Status post donor renal transplant in 2015. 3. Chronic systolic CHF ejection fraction of 40% with mild to moderate mitral regurgitation and moderate tricuspid regurgitation. 4. Volume overload. Improved. 5. Anemia of chronic kidney disease. Iron replete. On Aranesp. 6. Metabolic acidosis secondary to chronic kidney disease and GI losses. On oral bicarb. Improved post dialysis. 7. Hypertension with chronic kidney disease. Controlled. 8. Klebsiella bacteremia on antibiotics. Status post removal of left IJ permacath 04/10/2023 . New femoral permacath placed on 04/13/2023. Repeat blood cultures have been negative. 9. Mental status changes, etiology unclear. Plan: Continue with antibiotics .D in am
[2023-04-15] MEDS: ATORVASTATIN 10 MG TAB PO SCH (23:04)
[2023-04-16] MEDS: SODIUM CHLORIDE 0.9% 1,000 ML IV SCH ×2 (01:28→23:50)
[2023-04-16 05:57] LABS: Glucose,Whole Blood 217 mg/dL (70-110)
[2023-04-16] MEDS: INSULIN ASPART (NovoLOG) 100 UNIT/ML VIAL SQ SCH ×3 (06:26→18:19)
[2023-04-16] MEDS: ASPIRIN 81 MG PO SCH (08:24)
[2023-04-16] MEDS: THIAMINE 100 MG TAB PO SCH ×2 (08:24→18:25)
[2023-04-16] MEDS: FAMOTIDINE 20 MG TAB PO SCH (08:24)
[2023-04-16] MEDS: TORSEMIDE 20 MG TAB PO SCH (08:24)
[2023-04-16] MEDS: SODIUM BICARBONATE TAB 650 MG TAB PO SCH ×3 (08:24→18:25)
[2023-04-16] MEDS: FOLIC ACID 1 MG TAB PO SCH (08:25)
[2023-04-16] MEDS: predniSONE 5 MG TAB PO SCH (08:25)
[2023-04-16] MEDS: TACROLIMUS 1 MG CAP PO SCH ×2 (08:25→18:25)
[2023-04-16] MEDS: HEPARIN SODIUM,PORCINE 5,000 UNIT/ML 1 ML VIAL SQ SCH ×2 (08:26→21:36)
[2023-04-16] MEDS: carvediloL 12.5 MG TAB PO SCH ×2 (10:35→16:34)
[2023-04-16] MEDS: amLODIPine 5 MG TAB PO SCH (10:35)
--- NOTE | 2023-04-16 11:27 | P.PN ---
Subjective Patient is seen for follow-up for end-stage renal disease. Status post removal of left IJ permacath 04/10/2023. Blood cultures from 04/08/2023 are negative thus far. Previous blood culture on 04/07/2023 grew Klebsiella pneumonia. No significant complaints today. Patient has been confused and oriented 1. Scheduled for hemodialysis today. Objective - Vital Signs Vital signs: Vital Signs Temp 97.5 F L 04/16/23 00:36 Pulse 72 04/16/23 07:24 Resp 17 04/16/23 07:24 BP 110/61 04/16/23 07:24 Pulse Ox 99 04/16/23 07:24 FiO2 Intake & Output 04/15/23 04/16/23 04/16/23 18:59 06:59 18:59 Intake Total 360 Balance 360 Intake: Intake, IV Titration 240 Amount Sodium Chloride 0.9% 1, 240 000 ml @ 20 mls/hr IV . Q24H [facility] Rx#:[id number] Oral 120 Other: # Voids 0 - Exam Patient is awake, comfortable, in no acute distress Confused Examination of the heart S1 and S2 Examination of the lungs bilateral breath sounds are heard Abdomen is soft nontender Examination of lower extremity shows 1+ edema uper thighs. - Labs CBC & Chem 7: 04/15/23 07:23 04/15/23 06:06 Labs: Abnormal Lab Results - Last 24 Hours (Table) 04/15/23 04/15/23 04/16/23 Range/Units 17:18 20:01 05:55 POC Glucose (mg/dL) 193 H 198 H 217 H (70-110) mg/dL Microbiology - Last 24 Hours (Table) 04/10/23 18:12 Blood Culture - Final Blood Assessment and Plan Assessment: 1. End-stage renal disease maintained on hemodialysis Tuesday schedule via permacath. Started HD in March 2023 2. Status post donor renal transplant in 2015. 3. Chronic systolic CHF ejection fraction of 40% with mild to moderate mitral regurgitation and moderate tricuspid regurgitation. 4. Volume overload. Improved. 5. Anemia of chronic kidney disease. Iron replete. On Aranesp. 6. Metabolic acidosis secondary to chronic kidney disease and GI losses. On oral bicarb. Improved post dialysis. 7. Hypertension with chronic kidney disease. Controlled. 8. Klebsiella bacteremia on antibiotics. Status post removal of left IJ permacath 04/10/2023 . New femoral permacath placed on 04/13/2023. Repeat blo od cultures have been negative. 9. Mental status changes, somewhat improved. Plan: Continue with antibiotics Hemodialysis today
[2023-04-16 11:36] LABS: Glucose,Whole Blood 167 mg/dL (70-110)
--- NOTE | 2023-04-16 11:37 | P.PN ---
Subjective Progress Note Date: 04/16/23 Principal diagnosis: Bacteremia Patient is a 72-year-old -[place] female with a comorbidities including diabetes mellitus hypertension hyperlipidemia end-stage renal disease on hemodialysis Tuesday via permacath patient presenting to the hospital with concerns for unable to care of self at home, patient did have blood cultures came back positive with gram-negative bacilli concerning for possible dialysis catheter infection. Dialysis catheter was removed 04/10/2023, the patient did have a new dialysis catheter placement on 04/13/2023 On today's evaluation that is 04/16/2023, the patient denies any fever or any chills, the patient is more awake and alert today, the patient is breathing comfortably on room air without any need for supplemental oxygen, the patient denies any chest pain or any cough , patient denies abdominal pain, no nausea/vo miting diarrhea White count is 12.5, creatinine 1.67, CRP 16 procalcitonin is 0.41 as of yesterday no lab draw today. Blood culture with Klebsiella, repeat blood culture negative so far Objective - Vital Signs Vital signs: Vital Signs Temp 97.5 F L 04/16/23 00:36 Pulse 72 04/16/23 07:24 Resp 17 04/16/23 07:24 BP 110/61 04/16/23 07:24 Pulse Ox 99 04/16/23 07:24 FiO2 Intake & Output 04/15/23 04/16/23 04/16/23 18:59 06:59 18:59 Intake Total 360 Balance 360 Intake: Intake, IV Titration 240 Amount Sodium Chloride 0.9% 1, 240 000 ml @ 20 mls/hr IV . Q24H [facility] Rx#:[id number] Oral 120 Other: Voiding Method Diaper # Voids 0 - Exam GENERAL DESCRIPTION: Elderly female lying in bed in no distress RESPIRATORY SYSTEM: Unlabored breathing , decreased breath sounds at bases HEART: S1 S2 regular rate and rhythm ABDOMEN: Soft , no tenderness EXTREMITIES: Heel pressure ulcer unstageable but no redness - Labs CBC & Chem 7: 04/15/23 07:23 04/15/23 06:06 Labs: Abnormal Lab Results - Last 24 Hours (Table) 04/15/23 04/15/23 04/16/23 Range/Units 17:18 20:01 05:55 POC Glucose (mg/dL) 193 H 198 H 217 H (70-110) mg/dL Microbiology - Last 24 Hours (Table) 04/10/23 18:12 Blood Culture - Final Blood Assessment and Plan (1) Bacteremia Current Visit: Yes Status: Acute Code(s): R78.81 - BACTEREMIA SNOMED Code(s): 4651418 (2) Unstageable pressure ulcer of left heel Current Visit: Yes Status: Acute Code(s): L89.620 - PRESSURE ULCER OF LEFT HEEL, UNSTAGEABLE SNOMED Code(s): 15962194516537119 Plan: 1-Patient with gram-negative bacteremia high clinical suspicion for possible permacatheter infection in this patient with no evidence of any abdominal tenderness on Examination and urine has been negative patient did have bilateral heel pressure ulcer with some necrotic tissue but no significant redness or foul-smelling drainage was noticed 2-blood culture has been repeated And are currently pending. 3patient to continue local wound care to the left heel pressure ulcer with the Medihoney followed by moist dressing to keep the area of the pressure 4-vascular surgery has remove the dialysis catheter and the tip culture so far negative.patient did have a new dialysis catheter placement 5-patient to continue with Rocephin and short course of Ceftin on discharge discussed with the admitting team Dictation was produced using [employer] dictation software. please excuse any gramm atical, word or spelling errors. Time with Patient: Less than 30
--- NOTE | 2023-04-16 12:21 | P.PN ---
Subjective Progress Note Date: 04/16/23 Patient is a very pleasant 72 -year-old female with a past medical history of renal transplant in 2016 currently with ESRD on dialysis //tue, hypertension, dyslipidemia, and insulin-dependent diabetes mellitus . Patient presented to the emergency department via EMS from home with a chief complaint of general weakness and burning with urination. Patient was in rehab at [facility] and was reportedly discharged home with her on Tuesday04/02/23, states that her is disabled and unable to help her very much and she believes she is still too weak to independently care for herself and needs to return to rehab. Patient underwent full evaluation in the emergency department. Vital signs upon arrival show blood pressure 147/76, heart rate 92, respiratory rate 18, temp 99.7F, SpO2 100% on room air. Labs completed and reviewed. CBC showing a stable normocytic anemia with hemoglobin of 8.9. Coagulation profile showing elevated PT of 12.8 and INR 1.2. BMP showing sodium 134, bicarb 21, BUN 13, creatinine 1.87, and GFR of 26. Liver profile unremarkable. Magnesium slightly low 1.7. Troponin elevated at 0.047 with repeat troponin is 0.043. TSH normal findings at 1.940. EKG completed showing normal sinus rhythm at 85 bpm with no significant T-wave or ST abnormalities showing no signs of acute ischemia. Patient was initially admitted to [facility] hospitalist group on 04/03/23 at 11:10 PM. We were notified of this admission at 7:49 AM on 04/04/23. During patient's workup, she was noted to develop significant encephalopathy/confusion. Infectious workup demonstrated a blood culture positive for Klebsiella which was pansensitive. Patient was started on ceftriaxone. ID was consulted and recommended exchange dialysis catheter with tip sent for culture. Catheter was removed on 04/10. Notably, patient's CellCept was discontinued after developing bacteremia, while her Prograf level was noted to be low and therefore Prograf was increased to 3 mg twice a day with repeat level pending. Repeat blood cultures have been noted to be negative. Plan is to exchange HD catheter after catheter tip culture is negative at 72 hours. 04/12 Patient was seen and examined. She is confused. Appears lethargic. Does not complain of anything. No new labs done today. Discussed with Dr. Magaña, OK to hold HD for now. 04/13 Patient was seen and examined. Sleepy but easily arousable. HD catheter tip Cx negative. Vascular surgery re-consulted for permacath insertion. BMP ordered and pending. Tacrolimus level 7.5. 04/14 Patient was seen and examined. She appears more lethargic. HD catheter inserted yesterday. Undergoing HD today. We will obtain a CT head to rule out intracranial process. 04/15 Patient was seen and examined. Clinical condition essentially unchanged. Very confused. Not appropriate for SNF at this time. Discussed with Dr. Blackwood, obtain ESR, procalcitonin and CRP, hopeful improvement in mentation with dialysis. CBC shows Hg 12.5, Hg 8.3, Plt 100. BMP Na 136, BUN 19, Cr 1.67, glucose 190, Ca 8.2. ESR 44. CRP 16. Procal 0.41. CT head negative. CXR shows bilateral pleural effusions with atelectasis. Will discuss with Dr. Blackwood regarding re-culturing and escalating antibiotics. 04/16 Patient was seen and examined. Her mentation has improved today, she is answering questions appropriately. Discussed with Dr. Blackwood, recommends continuing Rocephin for now, hopeful improvement in mentation with dialysis. Possible hospital induced delirium. General: non toxic, no distress, appears at stated age Derm: warm, dry Head: atraumatic, normocephalic, symmetric Eyes: EOMI, no lid lag, anicteric sclera Cardiovascular: S1S2 reg, no murmur Lungs: CTA bilateral, no rhonchi, no rales , no accessory muscle use Abdominal: soft, nontender to palpation Ext: no gross muscle atrophy, no edema, no contractures Neuro: no focal neuro deficits Psych: AO x 2, Lethargic Klebsiella bacteremia Acute metabolic encephalopathy Renal transplant recipient currently with ESRD on dialysis T//Tue Troponin elevation, chronic and secondary to ESRD and not consistent with acute coronary syndrome Anemia of chronic disease, secondary to chronic kidney disease Wounds to bilateral lower feet Insulin-dependent Diabetes mellitus type 2 with hyperglycemia Folate deficiency Hypertension Dyslipidemia Based on my assessment of this patient, this patient meets a high complexity level of care. Patient has an acute diagnosis of sepsis related to Klebsiella bacteremia. Currently on Rocephin. Repeat BCx negative so far. HD catheter tip culture negative. Klebsiella bacteremia: Continue Rocephin 2g IV QD. Repeat BCx negative so far. HD catheter tip culture negative. Telemetry monitoring. ID on board. Acute metabolic encephalopathy: Likely due to above. CT head done this admission shows no acute changes. Fall precautions. PT and OT on board. Renal transplant recipient currently with ESRD on dialysis T/Th/Sat: Monitor electrolytes. Nephrology on board. Bicarb 1300 mg PO TID, Tacro 3 mg PO BID. Repeat Tacrolimus level 7.5. Continue hemodialysis. Troponin elevation, chronic and secondary to ESRD: Not consistent with acute coronary syndrome. ASA 81mg daily. Atorvastatin 10mg HS. Anemia of chronic disease, secondary to chronic kidney disease Wounds to bilateral lower feet: Wound care consult recommendations appreciated. Insulin-dependent Diabetes mellitus type 2 with hyperglycemia: Accuchecks ACHS + LD SSI. Folate deficiency: Continue folic acid 1mg daily. Hypertension: Amlodipine 5mg daily, carvedilol 25 mg twice daily. Dyslipidemia: Lipitor as above. Heparin SQ for DVT prophylaxis. FULL CODE. I have reviewed the following exchange consultant notes: Nephrology, ID note. I have reviewed the results of the following tests: I have ordered the following tests: CBC, BMP, HIT panel, BCx. I have discussed the care of this patient with the following independent historian: I have independently interpreted the following test below: Discussed with RN regarding mentation. I have discussed the management of this patient with the following physician: Discussed with Dr. Blackwood. Objective - Vital Signs Vital signs: Vital Signs Temp 97.5 F L 04/16/23 00:36 Pulse 72 04/16/23 07:24 Resp 17 04/16/23 07:24 BP 110/61 04/16/23 07:24 Pulse Ox 99 04/16/23 07:24 FiO2 Intake & Output 04/15/23 04/16/23 04/16/23 18:59 06:59 18:59 Intake Total 360 Balance 360 Intake: Intake, IV Titration 240 Amount Sodium Chloride 0.9% 1, 240 000 ml @ 20 mls/hr IV . Q24H [facility] Rx#:[id number] Oral 120 Other: # Voids 0 - Labs CBC & Chem 7: 04/15/23 07:23 04/15/23 06:06 Labs: Abnormal Lab Results - Last 24 Hours (Table) 11/10/23 11/10/23 11/10/23 Range/Units 07:23 07:23 07:23 ESR 44 H (0-30) mm/Hr POC Glucose (mg/dL) (70-110) mg/dL C-Reactive Protein 16.0 H (<1.0) mg/dL Procalcitonin 0.41 H (0.02-0.09) ng/mL 04/15/23 04/15/23 04/15/23 Range/Units 11:17 17:18 20:01 ESR (0-30) mm/Hr POC Glucose (mg/dL) 235 H 193 H 198 H (70-110) mg/dL C-Reactive Protein (<1.0) mg/dL Procalcitonin (0.02-0.09) ng/mL 04/16/23 Range/Units 05:55 ESR (0-30) mm/Hr POC Glucose (mg/dL) 217 H (70-110) mg/dL C-Reactive Protein (<1.0) mg/dL Procalcitonin (0.02-0.09) ng/mL Microbiology - Last 24 Hours (Table) 04/10/23 18:12 Blood Culture - Final Blood
[2023-04-16 14:33] LABS: Anisocytosis Slight; Hypochromasia Marked; MCH 27.9 pg (25.0-35.0); MCHC 28.6 g/dL (31.0-37.0); MCV 97.3 fL (80.0-100.0); Macrocytosis Slight; Mean Platelet Volume 11.3; Platelet Count 109 k/uL (150-450); RBC 2.87 m/uL (3.80-5.40); RDW 18.9 % (11.5-15.5); WBC 11.3 k/uL (3.8-10.6)
[2023-04-16 14:57] LABS: African American GFR (CKD) 30 (>60 ml/min/1.73 sqM); Anion Gap 7 mmol/L; Blood Urea Nitrogen 27 mg/dL (7-17); Calcium 8.2 mg/dL (8.4-10.2); Carbon Dioxide 29 mmol/L (22-30); Chloride 100 mmol/L (98-107); Glucose 211 mg/dL (74-99); Non-African American GFR(CKD) 26 (>60 ml/min/1.73 sqM); Potassium 2.9 mmol/L (3.5-5.1); Sodium 136 mmol/L (137-145)
[2023-04-16] MEDS: POTASSIUM CHLORIDE 10 MEQ in WATER FOR INJECTION 1 100ML.BAG IVPB SCH ×4 (16:31→23:49)
[2023-04-16 16:55] LABS: Glucose,Whole Blood 137 mg/dL (70-110)
[2023-04-16 19:53] LABS: Glucose,Whole Blood 121 mg/dL (70-110)
[2023-04-16] MEDS: ATORVASTATIN 10 MG TAB PO SCH (21:45)
[2023-04-17] MEDS: POTASSIUM CHLORIDE 10 MEQ in WATER FOR INJECTION 1 100ML.BAG IVPB SCH ×4 (01:32→03:00)
[2023-04-17 05:56] LABS: Glucose,Whole Blood 183 mg/dL (70-110)
[2023-04-17] MEDS: INSULIN ASPART (NovoLOG) 100 UNIT/ML VIAL SQ SCH ×3 (07:02→18:06)
[2023-04-17] MEDS: THIAMINE 100 MG TAB PO SCH ×2 (09:10→18:05)
[2023-04-17] MEDS: FAMOTIDINE 20 MG TAB PO SCH (09:11)
[2023-04-17] MEDS: FOLIC ACID 1 MG TAB PO SCH (09:11)
[2023-04-17] MEDS: ASPIRIN 81 MG PO SCH (09:11)
[2023-04-17] MEDS: carvediloL 12.5 MG TAB PO SCH ×2 (09:11→18:06)
[2023-04-17] MEDS: HEPARIN SODIUM,PORCINE 5,000 UNIT/ML 1 ML VIAL SQ SCH (09:11)
[2023-04-17] MEDS: amLODIPine 5 MG TAB PO SCH (09:11)
[2023-04-17] MEDS: SODIUM BICARBONATE TAB 650 MG TAB PO SCH ×3 (09:11→18:06)
[2023-04-17] MEDS: TORSEMIDE 20 MG TAB PO SCH (09:12)
[2023-04-17] MEDS: TACROLIMUS 1 MG CAP PO SCH ×2 (09:12→18:06)
[2023-04-17] MEDS: predniSONE 5 MG TAB PO SCH (09:12)
[2023-04-17 09:38] LABS: African American GFR (CKD) 49 (>60 ml/min/1.73 sqM); Anion Gap 11 mmol/L; Blood Urea Nitrogen 14 mg/dL (7-17); Calcium 8.3 mg/dL (8.4-10.2); Carbon Dioxide 22 mmol/L (22-30); Chloride 101 mmol/L (98-107); Glucose 167 mg/dL (74-99); Non-African American GFR(CKD) 42 (>60 ml/min/1.73 sqM); Sodium 134 mmol/L (137-145)
[2023-04-17 09:52] LABS: Potassium 4.4 mmol/L (3.5-5.1)
--- NOTE | 2023-04-17 10:56 | P.PN ---
Subjective Progress Note Date: 04/17/23 Patient is a very pleasant 72 -year-old female with a past medical history of renal transplant in 2016 currently with ESRD on dialysis //tue, hypertension, dyslipidemia, and insulin-dependent diabetes mellitus . Patient presented to the emergency department via EMS from home with a chief complaint of general weakness and burning with urination. Patient was in rehab at [facility] and was reportedly discharged home with her on Tuesday04/02/23, states that her is disabled and unable to help her very much and she believes she is still too weak to independently care for herself and needs to return to rehab. Patient underwent full evaluation in the emergency department. Vital signs upon arrival show blood pressure 147/76, heart rate 92, respiratory rate 18, temp 99.7F, SpO2 100% on room air. Labs completed and reviewed. CBC showing a stable normocytic anemia with hemoglobin of 8.9. Coagulation profile showing elevated PT of 12.8 and INR 1.2. BMP showing sodium 134, bicarb 21, BUN 13, creatinine 1.87, and GFR of 26. Liver profile unremarkable. Magnesium slightly low 1.7. Troponin elevated at 0.047 with repeat troponin is 0.043. TSH normal findings at 1.940. EKG completed showing normal sinus rhythm at 85 bpm with no significant T-wave or ST abnormalities showing no signs of acute ischemia. Patient was initially admitted to [facility] hospitalist group on 04/03/23 at 11:10 PM. We were notified of this admission at 7:49 AM on 04/04/23. During patient's workup, she was noted to develop significant encephalopathy/confusion. Infectious workup demonstrated a blood culture positive for Klebsiella which was pansensitive. Patient was started on ceftriaxone. ID was consulted and recommended exchange dialysis catheter with tip sent for culture. Catheter was removed on 04/10. Notably, patient's CellCept was discontinued after developing bacteremia, while her Prograf level was noted to be low and therefore Prograf was increased to 3 mg twice a day with repeat level pending. Repeat blood cultures have been noted to be negative. Plan is to exchange HD catheter after catheter tip culture is negative at 72 hours. 04/12 Patient was seen and examined. She is confused. Appears lethargic. Does not complain of anything. No new labs done today. Discussed with Dr. Magaña, OK to hold HD for now. 04/13 Patient was seen and examined. Sleepy but easily arousable. HD catheter tip Cx negative. Vascular surgery re-consulted for permacath insertion. BMP ordered and pending. Tacrolimus level 7.5. 04/14 Patient was seen and examined. She appears more lethargic. HD catheter inserted yesterday. Undergoing HD today. We will obtain a CT head to rule out intracranial process. 04/15 Patient was seen and examined. Clinical condition essentially unchanged. Very confused. Not appropriate for SNF at this time. Discussed with Dr. Blackwood, obtain ESR, procalcitonin and CRP, hopeful improvement in mentation with dialysis. CBC shows Hg 12.5, Hg 8.3, Plt 100. BMP Na 136, BUN 19, Cr 1.67, glucose 190, Ca 8.2. ESR 44. CRP 16. Procal 0.41. CT head negative. CXR shows bilateral pleural effusions with atelectasis. Will discuss with Dr. Blackwood regarding re-culturing and escalating antibiotics. 04/16 Patient was seen and examined. Her mentation has improved today, she is answering questions appropriately. Discussed with Dr. Blackwood, recommends continuing Rocephin for now, hopeful improvement in mentation with dialysis. Possible hospital induced delirium. CBC shows WBC 11.3, Hg 8, Plt 109. BMP Na 136, K 2.9, BUN 27, Cr 1.92, glucose 211, Ca 8.2. 04/17 Patient was seen and examined. More confused today. Repeat blood cultures collected yesterday. BMP Na 134, Cr 1.27, glu 167, Ca 8.3. General: non toxic, no distress, appears at stated age Derm: warm, dry Head: atraumatic, normocephalic, symmetric Eyes: EOMI, no lid lag, anicteric sclera Cardiovascular: S1S2 reg, no murmur Lungs: CTA bilateral, no rhonchi, no rales , no accessory muscle use Abdominal: soft, nontender to palpation Ext: no gross muscle atrophy, no edema, no contractures Neuro: no focal neuro deficits Psych: AO x 0, lethargic Klebsiella bacteremia Acute metabolic encephalopathy Renal transplant recipient currently with ESRD on dialysis T/Th/Sat Troponin elevation, chronic and secondary to ESRD and not consistent with acute coronary syndrome Anemia of chronic disease, secondary to chronic kidney disease Wounds to bilateral lower feet Insulin-dependent Diabetes mellitus type 2 with hyperglycemia Folate deficiency Hypertension Dyslipidemia Based on my assessment of this patient, this patient meets a moderate complexity level of care. Patient has an acute diagnosis of sepsis related to Klebsiella bacteremia. Currently on Rocephin. Repeat BCx negative so far. HD catheter tip culture negative. Klebsiella bacteremia: Continue Rocephin 2g IV QD. Repeat BCx negative so far. HD catheter tip culture negative. Telemetry monitoring. ID on board. Acute metabolic encephalopathy: Likely due to above. CT head done this admission shows no acute changes. Fall precautions. PT and OT on board. Renal transplant recipient currently with ESRD on dialysis T//Sat: Monitor electrolytes. Nephrology on board. Bicarb 1300 mg PO TID, Tacro 3 mg PO BID. Repeat Tacrolimus level 7.5. Continue hemodialysis. Troponin elevation, chronic and secondary to ESRD: Not consistent with acute coronary syndrome. ASA 81mg daily. Atorvastatin 10mg HS. Anemia of chronic disease, secondary to chronic kidney disease Wounds to bilateral lower feet: Wound care consult recommendations appreciated. Insulin-dependent Diabetes mellitus type 2 with hyperglycemia: Accuchecks ACHS + LD SSI. Folate deficiency: Continue folic acid 1mg daily. Hypertension: Amlodipine 5mg daily, carvedilol 25 mg twice daily. Dyslipidemia: Lipitor as above. Heparin SQ for DVT prophylaxis. FULL CODE. I have reviewed the following automotive service consultant notes: Nephrology, ID note. I have reviewed the results of the following tests: I have ordered the following tests: Blood culture, HIT panel I have discussed the care of this patient with the following independent historian: I have independently interpreted the following test below: Discussed with RN regarding mentation. I have discussed the management of this patient with the following physician: Objective - Vital Signs Vital signs: Vital Signs Temp 96.1 F L 04/17/23 07:35 Pulse 81 04/17/23 01:16 Resp 19 04/17/23 07:35 BP 131/69 04/17/23 07:35 Pulse Ox 93 L 04/17/23 01:16 FiO2 Intake & Output 04/16/23 04/17/23 04/17/23 18:59 06:59 18:59 Intake Total 400 Output Total 1100 Balance -700 Intake: Hemodialysis 400 Output: Hemodialysis 1100 Other: Voiding Method Diaper Diaper # Bowel Movements 0 1 - Labs CBC & Chem 7: 04/16/23 13:53 04/17/23 08:38 Labs: Abnormal Lab Results - Last 24 Hours (Table) 04/16/23 04/16/23 04/16/23 Range/Units 11:33 13:53 13:53 WBC 11.3 H (3.8-10.6) k/uL RBC 2.87 L (3.80-5.40) m/uL Hgb 8.0 L (11.4-16.0) gm/dL Hct 28.0 L (34.0-46.0) % MCHC 28.6 L (31.0-37.0) g/dL RDW 18.9 H (11.5-15.5) % Plt Count 109 L (150-450) k/uL Sodium 136 L (137-145) mmol/L Potassium 2.9 L (3.5-5.1) mmol/L BUN 27 H (7-17) mg/dL Creatinine 1.92 H (0.52-1.04) mg/dL Glucose 211 H (74-99) mg/dL POC Glucose (mg/dL) 167 H (70-110) mg/dL Calcium 8.2 L (8.4-10.2) mg/dL 04/16/23 04/16/23 04/17/23 Range/Units 16:53 19:52 05:55 WBC (3.8-10.6) k/uL RBC (3.80-5.40) m/uL Hgb (11.4-16.0) gm/dL Hct (34.0-46.0) % MCHC (31.0-37.0) g/dL RDW (11.5-15.5) % Plt Count (150-450) k/uL Sodium (137-145) mmol/L Potassium (3.5-5.1) mmol/L BUN (7-17) mg/dL Creatinine (0.52-1.04) mg/dL Glucose (74-99) mg/dL POC Glucose (mg/dL) 137 H 121 H 183 H (70-110) mg/dL Calcium (8.4-10.2) mg/dL
[2023-04-17 11:22] LABS: Glucose,Whole Blood 235 mg/dL (70-110)
--- NOTE | 2023-04-17 11:46 | P.PN ---
Subjective Patient is seen for follow-up for end-stage renal disease. Status post removal of left IJ permacath 04/10/2023. Blood cultures from 04/08/2023 are negative thus far. Previous blood culture on 04/07/2023 grew Klebsiella pneumonia. Status post new catheter placement on 04/13/2023 No significant complaints today. Patient has been confused and oriented 1. Status post hemodialysis yesterday. Tolerated treatment well. UF 1.1 L. Objective - Vital Signs Vital signs: Vital Signs Temp 96.1 F L 04/17/23 07:35 Pulse 81 04/17/23 01:16 Resp 19 04/17/23 07:35 BP 131/69 04/17/23 07:35 Pulse Ox 93 L 04/17/23 01:16 FiO2 Intake & Output 04/16/23 04/17/23 04/17/23 18:59 06:59 18:59 Intake Total 400 Output Total 1100 Balance -700 Intake: Hemodialysis 400 Output: Hemodialysis 1100 Other: Voiding Method Diaper Diaper Diaper # Bowel Movements 0 1 - Exam Patient is awake, comfortable, in no acute distress Confused on does not communicate much Examination of the heart S1 and S2 Examination of the lungs bilateral breath sounds are heard Abdomen is soft nontender Examination of lower extremity shows 1+ edema upper thighs. - Labs CBC & Chem 7: 04/16/23 13:53 04/17/23 08:38 Labs: Abnormal Lab Results - Last 24 Hours (Table) 04/16/23 04/16/23 04/16/23 Range/Units 13:53 13:53 16:53 WBC 11.3 H (3.8-10.6) k/uL RBC 2.87 L (3.80-5.40) m/uL Hgb 8.0 L (11.4-16.0) gm/dL Hct 28.0 L (34.0-46.0) % MCHC 28.6 L (31.0-37.0) g/dL RDW 18.9 H (11.5-15.5) % Plt Count 109 L (150-450) k/uL Sodium 136 L (137-145) mmol/L Potassium 2.9 L (3.5-5.1) mmol/L BUN 27 H (7-17) mg/dL Creatinine 1.92 H (0.52-1.04) mg/dL Glucose 211 H (74-99) mg/dL POC Glucose (mg/dL) 137 H (70-110) mg/dL Calcium 8.2 L (8.4-10.2) mg/dL 04/16/23 04/17/23 04/17/23 Range/Units 19:52 05:55 08:38 WBC (3.8-10.6) k/uL RBC (3.80-5.40) m/uL Hgb (11.4-16.0) gm/dL Hct (34.0-46.0) % MCHC (31.0-37.0) g/dL RDW (11.5-15.5) % Plt Count (150-450) k/uL Sodium 134 L (137-145) mmol/L Potassium (3.5-5.1) mmol/L BUN (7-17) mg/dL Creatinine 1.27 H (0.52-1.04) mg/dL Glucose 167 H (74-99) mg/dL POC Glucose (mg/dL) 121 H 183 H (70-110) mg/dL Calcium 8.3 L (8.4-10.2) mg/dL 04/17/23 Range/Units 11:21 WBC (3.8-10.6) k/uL RBC (3.80-5.40) m/uL Hgb (11.4-16.0) gm/dL Hct (34.0-46.0) % MCHC (31.0-37.0) g/dL RDW (11.5-15.5) % Plt Count (150-450) k/uL Sodium (137-145) mmol/L Potassium (3.5-5.1) mmol/L BUN (7-17) mg/dL Creatinine (0.52-1.04) mg/dL Glucose (74-99) mg/dL POC Glucose (mg/dL) 235 H (70-110) mg/dL Calcium (8.4-10.2) mg/dL Assessment and Plan Assessment: 1. End-stage renal disease maintained on hemodialysis Tuesday schedule via permacath. Started HD in March 2023 2. Status post donor renal transplant in 2015. 3. Chronic systolic CHF ejection fraction of 40% with mild to moderate mitral regurgitation and moderate tricuspid regurgitation. 4. Volume overload. Improved. 5. Anemia of chronic kidney disease. Iron replete. On Aranesp. 6. Metabolic acidosis secondary to chronic kidney disease and GI losses. On oral bicarb. Improved post dialysis. 7. Hypertension with chronic kidney disease. Controlled. 8. Klebsiella bacteremia on antibiotics. Status post removal of left IJ permacath 04/10/2023 . New femoral permacath placed on 04/13/2023. Repeat blood cultures have been negative. 9. Mental status changes, somewhat improved. Plan: Continue with antibiotics Hemodialysis on 04/19/2023
--- NOTE | 2023-04-17 15:41 | P.PN ---
Subjective Progress Note Date: 04/17/23 Principal diagnosis: Bacteremia Patient is a 72-year-old -[place] female with a comorbidities including diabetes mellitus hypertension hyperlipidemia end-stage renal disease on hemodialysis Tuesday via permacath patient presenting to the hospital with concerns for unable to care of self at home, patient did have blood cultures came back positive with gram-negative bacilli concerning for possible dialysis catheter infection. Dialysis catheter was removed 04/10/2023, the patient did have a new dialysis catheter placement on 04/13/2023 On today's evaluation that is 04/17/2023, the patient remains to be afebrile , the patient is breathing comfortably on room air , patient seemed to be slightly lethargic today and do not answered any question no vomiting diarrhea or any other changes reported by the nursing staff White count is 11.3 as of yesterday, creatinine is 1.27, CRP 16 procalcitonin is 0.41 Blood culture with Klebsiella, repeat blood culture negative so far Objective - Vital Signs Vital signs: Vital Signs Temp 96.2 F L 04/17/23 13:22 Pulse 75 04/17/23 13:22 Resp 20 04/17/23 13:22 BP 113/55 04/17/23 13:22 Pulse Ox 93 L 04/17/23 01:16 FiO2 Intake & Output 04/16/23 04/17/23 04/17/23 18:59 06:59 18:59 Intake Total 400 Output Total 1100 Balance -700 Intake: Hemodialysis 400 Output: Hemodialysis 1100 Other: Voiding Method Diaper Diaper Diaper # Bowel Movements 0 1 - Exam GENERAL DESCRIPTION: Elderly female lying in bed in no distress RESPIRATORY SYSTEM: Unlabored breathing , decreased breath sounds at bases HEART: S1 S2 regular rate and rhythm ABDOMEN: Soft , no tenderness EXTREMITIES: Heel pressure ulcer unstageable but no redness - Labs CBC & Chem 7: 04/16/23 13:53 04/17/23 08:38 Labs: Abnormal Lab Results - Last 24 Hours (Table) 04/16/23 04/16/23 04/17/23 Range/Units 16:53 19:52 05:55 Sodium (137-145) mmol/L Creatinine (0.52-1.04) mg/dL Glucose (74-99) mg/dL POC Glucose (mg/dL) 137 H 121 H 183 H (70-110) mg/dL Calcium (8.4-10.2) mg/dL 04/17/23 04/17/23 Range/Units 08:38 11:21 Sodium 134 L (137-145) mmol/L Creatinine 1.27 H (0.52-1.04) mg/dL Glucose 167 H (74-99) mg/dL POC Glucose (mg/dL) 235 H (70-110) mg/dL Calcium 8.3 L (8.4-10.2) mg/dL Assessment and Plan (1) Bacteremia Current Visit: Yes Status: Acute Code(s): R78.81 - BACTEREMIA SNOMED Code(s): 3028618 (2) Unstageable pressure ulcer of left heel Current Visit: Yes Status: Acute Code(s): L89.620 - PRESSURE ULCER OF LEFT HEEL, UNSTAGEABLE SNOMED Code(s): 21226656224878631 Plan: 1-Patient with gram-negative bacteremia high clinical suspicion for possible permacatheter infection in this patient with no evidence of any abdominal tenderness on Examination and urine has been negative patient did have bilateral heel pressure ulcer with some necrotic tissue but no significant redness or foul-smelling drainage was noticed 2-blood culture has been repeated And are currently pending. 3patient to continue local wound care to the left heel pressure ulcer with the Medihoney followed by moist dressing to keep the area of the pressure 4-vascular surgery has removed the dialysis catheter and the tip culture so far negative.patient did have a new dialysis catheter placement 5-patient remains to be afebrile, patient will continue with Rocephin and short course of Ceftin on discharge Dictation was produced using [employer] dictation software. please excuse any grammatical, word or spelling errors. Time with Patient: Less than 30
[2023-04-17 16:58] LABS: Glucose,Whole Blood 238 mg/dL (70-110)
[2023-04-17 20:04] LABS: Glucose,Whole Blood 296 mg/dL (70-110)
[2023-04-17] MEDS ORDERED: propofoL 100 ML IV ONE (20:59)
[2023-04-17 21:03] LABS: Glucose,Whole Blood 222 mg/dL (70-110)
[2023-04-17] MEDS: NOREPINEPHRINE 4 MG in SODIUM CHLORIDE 0.9% 250 ML IV SCH (21:15)
--- NOTE | 2023-04-17 22:03 | XR ---
EXAMINATION TYPE: XR chest 1V portable DATE OF EXAM: 04/17/2023 9:52 PM CLINICAL INDICATION:Female, 72 years old with history of Tube placement; [facility] COMPARISON: Chest radiographs from 04/14/2023 TECHNIQUE: XR chest 1V portable Frontal view of the chest. FINDINGS: Lungs/Pleura: Bibasilar atelectasis. No evidence for pneumothorax, pleural effusion or focal consolid ation. Pulmonary vascularity: Unremarkable. Heart/mediastinum: Cardiomediastinal silhouette is unremarkable. Musculoskeletal: No acute osseous pathology. Other findings: None Lines/Tubes: The endotracheal tube is in the right main bronchus. Nasogastric tube with its distal tip and side-port projecting under the diaphragm. IMPRESSION: 1. Endotracheal tube in the right main bronchus, retraction of 4.0 cm recommended for optimal placem ent. 2. Nasogastric tube in appropriate position.
--- NOTE | 2023-04-17 22:05 | XR ---
EXAMINATION TYPE: XR chest 1V portable DATE OF EXAM: 04/17/2023 9:53 PM CLINICAL INDICATION:Female, 72 years old with history of ET tube placement; [facility] COMPARISON: Same day TECHNIQUE: XR chest 1V portable Frontal view of the chest. FINDINGS: Endotracheal tube has been slightly retracted and now the tip remains near the ostium of the right ma in bronchus. IMPRESSION: Retraction of at least 3 cm recommended for proper placement of endotracheal tube. Remainder of exam is unchanged.
[2023-04-17] MEDS: SODIUM CHLORIDE 0.9% 1,000 ML IV SCH (23:16)
--- NOTE | 2023-04-18 00:15 | P.EN ---
72 year old female s/p renal transplant on HD TTS. she has been here for 14 days, being treated for bactremia. patient has been confused and at times lethargic for the past 5 days. I was notified by RN at 1999 , patient hypoxic on 2 L NC while mouth open , but improves to 97% when mouth closed. patient switched to non-rebreather. then I was notified by RN to evaluate patient , as she started becoming hypoxic again. patient was evaluated at bedside, and seemed to be increasingly confused not making eye contact , does not follow commands , awake but confused. BP 102/57, hypoxic despite non rebreather. I notified ICU for transfer and intubation. CXR showed no infiltration or significant effusion. ET tube adjusted as was inserted into right main bronchus.
[2023-04-18] MEDS ORDERED: SODIUM CHLORIDE 0.9% 1,000 ML IV ONE ×3 (00:24→14:10)
[2023-04-18 00:55] LABS: ABG Base Excess 2.6 mmol/L; ABG HCO3 27 mmol/L (21-25); ABG Oxygen Saturation 99.4 % (94-97); ABG PCO2 40 mmHg (35-45); ABG PH 7.43 (7.35-7.45); ABG PO2 122 mmHg (83-108); ABG TCO2 28 mmol/L (19-24)
--- NOTE | 2023-04-18 00:55 | P.PCN ---
Date of Procedure: 04/18/23 Preoperative Diagnosis: Hypotension and sepsis Postoperative Diagnosis: Hypotension and sepsis Procedure(s) Performed: Insertion of a right brachial arterial line Indications for Procedure: Continuous blood pressure monitoring and frequent blood draws Description of Procedure: Informed consent was obtained, and a procedural timeout was performed . The patient was placed in supine position. The right brachial region was prepared in a sterile fashion, and a sterile drape was applied. The right brachial artery was palpated, easily cannulated, and a guidewire was placed. A Cook catheter was inserted over the guidewire, and the guidewire was removed. There was good arterial blood flow, good arterial waveform, and no complications. The line was secured with using a 3-0 silk suture.
[2023-04-18 00:58] LABS: Allen Test Performed? no
[2023-04-18] MEDS: ATORVASTATIN 10 MG TAB PO SCH ×2 (01:42→20:35)
[2023-04-18] MEDS: HEPARIN SODIUM,PORCINE 5,000 UNIT/ML 1 ML VIAL SQ SCH ×3 (01:48→20:35)
[2023-04-18] MEDS: NYSTATIN 100,000 UNIT/ML SUSP 500,000 UNIT/5 ML CUP PO SCH ×5 (01:48→20:35)
--- NOTE | 2023-04-18 02:01 | XR ---
EXAM: XR Chest, 1 View CLINICAL HISTORY: ITS.REASON XR Reason: ET tube placement TECHNIQUE: Frontal view of the chest. COMPARISON: XR Chest dated 04/17/23 at 2145 FINDINGS: Lungs: Bibasilar opacities may represent atelectasis/airspace disease and small effusions. Similar. Pleural space: Unremarkable. No pneumothorax. Heart: Unremarkable. No cardiomegaly. Mediastinum: Unremarkable. Bones/joints: Unremarkable. Tubes, lines and devices: Endotracheal tube has been withdrawn since the prior. Tip is 2.5 cm above the yevgeniy. Feeding tube tip cannot be seen but is below the diaphragm. IMPRESSION: 1. Endotracheal tube has been withdrawn since the prior. Tip is 2.5 cm above the yevgeniy. 2. Bibasilar opacities may represent atelectasis/airspace disease and small effusions. Similar.
[2023-04-18] MEDS ORDERED: VASOPRESSIN 60 UNIT in SODIUM CHLORIDE 0.9% 150 ML IV SCH (02:15)
[2023-04-18] MEDS: NOREPINEPHRINE 4 MG in SODIUM CHLORIDE 0.9% 250 ML IV SCH ×2 (03:17→05:40)
--- NOTE | 2023-04-18 04:17 | P.CNPUL ---
History of Present Illness Consult date: 04/18/23 Requesting physician: Lidia Elaine Reason for consult: other (ICU management) Chief complaint: Altered mental status and hypoxia History of present illness: I am seeing this patient in new consultation today 04/18/2023 in the intensive care unit after she was transferred for acute hypoxemic respiratory failure requiring intubation and mechanical ventilation. Patient is a 72-year-old femal e with past medical history significant for asthma, diabetes mellitus, hyperlipidemia, hypertension, end-stage renal disease and prior renal transplant, hemodialysis Tuesday, , Tuesday schedule, among other things. Patient is currently sedated and intubated on the mechanical ventilator, unable to provide any information. The patient was initially presented to the ER back on April 03 for bilateral lower extremity pain. She reportedly signed out AGAINST MEDICAL ADVICE from [facility], and was unable to take care of herself. The patient was originally admitted to the floor. She was found to have Klebsiella pneumoniae bacteremia, which was originally felt to be related to s contaminated hemodialysis catheter. This catheter was removed, and vascular placed another right femoral hemodialysis catheter on April 13. No isolated organisms were found from the catheter. Patient was started on IV antibiotics in the form of Rocephin per infectious disease. Patient also has multiple wounds including a decubitus pressure ulcer and bilateral heel wounds. On admission, the patient was noted to be confused, possibly encephalopathic. Brain CT without contrast showed no acute intracranial process. There are old appearing lacunar infarcts and inferior basal ganglia. Last night, the patient was noted to be obtunded and hypoxic. Patient was intubated by HEAD NECK SURGEON, and transferred to the intensive care unit. At this time, we were consulted for ICU management. Patient is currently intubated and synchronous with mechanical ventilator. Propofol is infusing at 30 mg/kg/m. Original post intubation chest x-ray showed endotracheal tube within the right mainstem bronchus. The ET tube was withdrawn approximately 5 cm, and is currently located approximately 2.5 cm above the yevgeniy. There are bibasilar opacities which may represent atelectasis/airspace disease and small effusions. Current ventilator settings are assist control, respiratory rate 14, tidal volume 350, FiO2 100%, and PEEP of 5. ABGs done on the settings show a pO2 of 122, pCO2 40, pH of 7.43. PEEP was increased to 10. Postintubation, the patient became profoundly hypotensive. She did receive 1 L normal saline bolus. Currently on norepinephrine infusing at 0.3 mcg/kg/m, vasopressin infusing at a physiological dose. Most recent CBC from 2 days ago shows a WBC count of 11.3, hemoglobin 8, hematocrit 28, platelets 109. BMP from yesterday shows a sodium 134, potassium 4.4, chloride 101, serum bicarb 22, BUN 14, creatinine 1.27, glucose 167. Repeat labs are pending. Patient's condition is currently critical, and she will be monitored in the intensive care unit. Review of Systems ROS unobtainable: due to mental status Past Medical History Past Medical History: No Reported History, Asthma, Diabetes Mellitus, Dialysis, Eye Disorder, Hyperlipidemia, Hypertension, Renal Disease, Skin Disorder Additional Past Medical History / Comment(s): history of covid, IDDM type II, neuropathy bilateral legs/feet, ESRD with past peritoneal/hemodialysis then in 2016 had renal transplant, UTI with sepsis, IBS, benign colon polyps, chronic low back pain, migraines, R eye retinal bleed with injections, L eye detached retina with surgery, anemia. 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 History of Any Multi-Drug Resistant Organisms: ESBL, MRSA Date of last positivie culture/infection: 2011 approx ESBL- peritoneal dialysis cath(PREVIOUSLY CHARTED) MDRO Source:: ESBL-peritoneal dialysis cath Past Surgical History: Cholecystectomy, Hysterectomy, Orthopedic Surgery Additional Past Surgical History / Comment(s): Peritoneal dialysis cath since removed, hemodialysis cath since removed, 2016 renal transplant, EGD, colonoscopies/benign polypectomy, bilateral eye cataract removals, L eye detached retinal surgery, L knee arthroscopy Past Anesthesia/Blood Transfusion Reactions: No Reported Reaction Additional Past Anesthesia/Blood Transfusion Reaction / Comment(s): has had a hard time coming out of anesthesia Past Psychological History: Anxiety Smoking Status: Former smoker Past Alcohol Use History: None Reported Past Drug Use History: None Reported - Past Family History Mother History Unknown: Yes Additional Family Medical History / Comment(s): Mother of poisoning when pt was 11 yrs old. Father Family Medical History: Vascular Disorder Additional Family Medical History / Comment(s): brain aneurysm Medications and Allergies Home Medications Medication Instructions Recorded Confirmed Type Atorvastatin Calcium [Lipitor] 10 mg PO HS@2100 08/11/16 04/04/23 History Sodium Bicarbonate Tab 1,300 mg PO TID@0800,1200,1700 08/11/16 04/04/23 History amLODIPine [Norvasc] 10 mg PO DAILY@0800 08/11/16 04/04/23 History predniSONE 5 mg PO DAILY@0800 08/25/17 04/04/23 History Mycophenolate Sodium [Mycophenolic 360 mg PO BID@0800,1700 04/25/20 04/04/23 History Acid] Ergocalciferol [Vitamin D2 (1250 1,250 mcg PO FR@0800 10/27/21 04/04/23 History Mcg = [id number] Iu)] Famotidine 40 mg PO DAILY@0900 10/27/21 04/04/23 History carvediloL [Coreg] 25 mg PO BID@0800,1700 10/27/21 04/04/23 History Albuterol Inhaler [Ventolin Hfa 2 puff INHALATION RT-QID PRN 11/24/22 04/04/23 History Inhaler] Aspirin EC [Ecotrin Low Dose] 81 mg PO DAILY@0800 11/24/22 04/04/23 History Docusate [Colace] 100 mg PO DAILY PRN 11/24/22 04/04/23 History Thiamine [Vitamin B-1] 250 mg PO BID@0800,1700 11/24/22 04/04/23 History Diphenox-Atrop 2.5-0.025 mg 1 tab PO TID PRN #3 tab 03/11/23 04/04/23 Rx [Lomotil] Acetaminophen Tab [Tylenol] 650 mg PO Q4H PRN 03/21/23 04/04/23 History Folic Acid 1 mg PO DAILY@0800 03/21/23 04/04/23 History HYDROcodone/APAP 5-325MG [Voltaire 1 tab PO Q6H PRN 03/21/23 04/04/23 History 5-325] INSULIN ASPART (NovoLOG) [NovoLOG See Protocol SQ 03/21/23 04/04/23 History (formulary)] ACHS@07,11,1630,2130 Eduardo Packet 1 packet PO DAILY@1700 03/21/23 04/04/23 History Eduardo Packet 1 packet PO SUMOWEFR@0800 03/21/23 04/04/23 History Eduardo Packet 1 packet PO TUTHSA@1200 03/21/23 04/04/23 History Magic Cup 1 dose PO BID@1200,1700 03/21/23 04/04/23 History Magnesium Hydroxide [Milk of 7,200 mg PO DAILY PRN 03/21/23 04/04/23 History Magnesia Concentrate] Na Phos,M-B/Na Phos,Di-Ba [Fleet 133 ml RECTAL DAILY PRN 03/21/23 04/04/23 History Adult] Tacrolimus [Prograf] 2 mg PO BID@0800,1700 03/21/23 04/04/23 History Torsemide [Demadex] 10 mg PO DAILY@0800 03/21/23 04/04/23 History bisacodyL [Dulcolax] 10 mg RECTAL DAILY PRN 03/21/23 04/04/23 History cloNIDine HCL [Catapres] 0.1 mg PO BID@0800,1700 03/21/23 04/04/23 History Collagenase [Santyl Ointment] 1 applic TOPICAL DAILY 04/04/23 04/04/23 History Maalox Plus 30 ml PO Q6H PRN 04/04/23 04/04/23 History Melatonin 1 mg PO HS 04/04/23 04/04/23 History Allergies Allergy/AdvReac Type Severity Reaction Status Date / Time hydralazine [From Apresoline] Allergy Rash/Hives Verified 04/04/23 13:10 Iodinated Contrast Media Allergy Unknown Verified 04/04/23 13:10 [Iodinated Contrast- Oral and IV Dye] meperidine [From Demerol] Allergy Anaphylaxis Verified 04/04/23 13:10 Penicillins Allergy Rash/Hives Verified 04/04/23 13:10 Physical Exam Vitals: Vital Signs Temp Pulse Resp BP Pulse Ox FiO2 04/18/23 03:10 80 04/18/23 00:57 90 04/17/23 23:30 100 04/17/23 21:30 100 04/17/23 20:10 97.4 F L 77 17 99/58 79 L 04/17/23 13:22 96.2 F L 75 20 113/55 04/17/23 07:35 96.1 F L 19 131/69 Intake and Output 04/17/23 04/17/2304/18/23 14:59 22:59 06:59 Intake Total 11.289 239.998 Balance 11.289 239.998 Intake: Intake, IV Titration 11.289 239.998 Amount Norepinephrine 4 mg In 9.980 186.300 Sodium Chloride 0.9% 250 ml @ 0.03 MCG/KG/MIN 8. 555 mls/hr IV .Q24H SIL[facility] Rx#:[id number] propofoL 1,000 mg In 1.309 53.698 Empty Bag 1 bag @ 15 MCG/ KG/MIN 6.736 mls/hr IV . [id number] SILVIA Rx#:[id number] Other: Voiding Method Diaper # Voids 0 # Bowel Movements 1 GENERAL EXAM: 72-year-old female, sedated and synchronous with mechanical ventilator. HEAD: Normocephalic and atraumatic EYES: Normal reaction of pupils, equal size. NOSE: Clear with pink turbinates. THROAT: No erythema or exudates. NECK: No masses, no JVD. CHEST: No chest wall deformity. LUNGS: Equal air entry with no crackles, wheeze, rhonchi or dullness. No conversational dyspnea or accessory muscle use.. CVS: S1 and S2 normal with no audible murmur, regular rhythm. No extra heart sounds ABDOMEN: No hepatosplenomegaly, active bowel sounds, no guarding or rigidity. SPINE: No scoliosis or deformity SKIN: There is a decubitus pressure ulcer, along with bilateral heel ulcerations. Eschar noted on the right foot. CENTRAL NERVOUS SYSTEM: Sedated, no focal deficits, tone is weak in all 4 extremities. EXTREMITIES: There is no peripheral edema, clubbing, or cyanosis. Peripheral pulses are intact. Results - Laboratory Findings CBC and BMP: 04/18/23 04:00 04/18/23 04:00 ABG ABG pH 7.43 (7.35-7.45) 04/18/23 00:50 ABG pCO2 40 mmHg (35-45) 04/18/23 00:50 ABG pO2 122 mmHg (83-108) H 04/18/23 00:50 ABG O2 Saturation 99.4 % (94-97) H 04/18/23 00:50 PT/INR, D-dimer PT 12.8 sec (10.0-12.5) H 04/04/23 01:14 INR 1.2 (<1.2) H 04/04/23 01:14 Abnormal lab findings: Abnormal Labs 04/04/23 04/04/23 04/04/23 01:14 01:14 01:14 WBC RBC Hgb Hct MCHC RDW Plt Count Neutrophils # Lymphocytes # ESR PT 12.8 H INR 1.2 H ABG pO2 ABG HCO3 ABG Total CO2 ABG O2 Saturation Sodium 134 L Potassium Carbon Dioxide 21 L Anion Gap BUN Creatinine 1.87 H Est GFR (CKD-EPI) BUN/Creatinine Ratio Glucose POC Glucose (mg/dL) Calcium Phosphorus 1.7 L TIBC % Saturation Transferrin Ferritin Troponin I 0.047 H* C-Reactive Protein Total Protein 5.6 L Albumin 3.1 L Procalcitonin Urine Protein Ur Leukocyte Esterase Urine Yeast (Budding) Tacrolimus 04/04/23 04/04/23 04/04/23 01:14 01:30 06:21 WBC RBC 3.12 L Hgb 8.9 L Hct 29.7 L MCHC 29.9 L RDW 17.7 H Plt Count Neutrophils # Lymphocytes # ESR PT INR ABG pO2 ABG HCO3 ABG Total CO2 ABG O2 Saturation Sodium Potassium Carbon Dioxide Anion Gap BUN Creatinine Est GFR (CKD-EPI) BUN/Creatinine Ratio Glucose POC Glucose (mg/dL) Calcium Phosphorus TIBC 104 L % Saturation 86.54 H Transferrin 74.0 L Ferritin 4321.0 H Troponin I 0.043 H* C-Reactive Protein Total Protein Albumin Procalcitonin Urine Protein Ur Leukocyte Esterase Urine Yeast (Budding) Tacrolimus 04/04/23 04/04/23 04/05/23 06:21 11:00 06:28 WBC RBC Hgb Hct MCHC RDW Plt Count Neutrophils # Lymphocytes # ESR PT INR ABG pO2 ABG HCO3 ABG Total CO2 ABG O2 Saturation Sodium Potassium Carbon Dioxide Anion Gap BUN Creatinine Est GFR (CKD-EPI) BUN/Creatinine Ratio Glucose POC Glucose (mg/dL) 114 H Calcium Phosphorus TIBC % Saturation Transferrin Ferritin Troponin I C-Reactive Protein Total Protein Albumin Procalcitonin Urine Protein 2+ H Ur Leukocyte Esterase Small H Urine Yeast (Budding) Rare H Tacrolimus 1.8 L 04/05/23 04/05/23 04/05/23 13:15 16:31 21:44 WBC RBC Hgb Hct MCHC RDW Plt Count Neutrophils # Lymphocytes # ESR PT INR ABG pO2 ABG HCO3 ABG Total CO2 ABG O2 Saturation Sodium Potassium Carbon Dioxide Anion Gap BUN Creatinine Est GFR (CKD-EPI) BUN/Creatinine Ratio Glucose POC Glucose (mg/dL) 116 H 153 H 159 H Calcium Phosphorus TIBC % Saturation Transferrin Ferritin Troponin I C-Reactive Protein Total Protein Albumin Procalcitonin Urine Protein Ur Leukocyte Esterase Urine Yeast (Budding) Tacrolimus 04/06/23 04/06/23 04/06/23 08:37 11:48 17:22 WBC RBC Hgb Hct MCHC RDW Plt Count Neutrophils # Lymphocytes # ESR PT INR ABG pO2 ABG HCO3 ABG Total CO2 ABG O2 Saturation Sodium Potassium Carbon Dioxide Anion Gap BUN Creatinine Est GFR (CKD-EPI) BUN/Creatinine Ratio Glucose POC Glucose (mg/dL) 160 H 179 H 145 H Calcium Phosphorus TIBC % Saturation Transferrin Ferritin Troponin I C-Reactive Protein Total Protein Albumin Procalcitonin Urine Protein Ur Leukocyte Esterase Urine Yeast (Budding) Tacrolimus 04/06/23 04/07/23 04/07/23 20:38 05:57 08:55 WBC RBC Hgb Hct MCHC RDW Plt Count Neutrophils # Lymphocytes # ESR PT INR ABG pO2 ABG HCO3 ABG Total CO2 ABG O2 Saturation Sodium Potassium Carbon Dioxide Anion Gap 15.70 H BUN Creatinine 2.9 H Est GFR (CKD-EPI) 17 L BUN/Creatinine Ratio 7.17 L Glucose 161 H POC Glucose (mg/dL) 165 H 150 H Calcium Phosphorus TIBC % Saturation Transferrin Ferritin Troponin I C-Reactive Protein Total Protein Albumin Procalcitonin Urine Protein Ur Leukocyte Esterase Urine Yeast (Budding) Tacrolimus 04/07/23 04/07/23 04/08/23 08:55 16:51 11:33 WBC 11.9 H RBC 3.15 L Hgb 8.7 L Hct 30.2 L MCHC 28.8 L RDW 18.5 H Plt Count Neutrophils # 9.9 H Lymphocytes # ESR PT INR ABG pO2 ABG HCO3 ABG Total CO2 ABG O2 Saturation Sodium Potassium Carbon Dioxide Anion Gap BUN Creatinine Est GFR (CKD-EPI) BUN/Creatinine Ratio Glucose POC Glucose (mg/dL) 115 H 120 H Calcium Phosphorus TIBC % Saturation Transferrin Ferritin Troponin I C-Reactive Protein Total Protein Albumin Procalcitonin Urine Protein Ur Leukocyte Esterase Urine Yeast (Budding) Tacrolimus 04/08/23 04/08/23 04/09/23 16:39 19:15 05:38 WBC RBC Hgb Hct MCHC RDW Plt Count Neutrophils # Lymphocytes # ESR PT INR ABG pO2 ABG HCO3 ABG Total CO2 ABG O2 Saturation Sodium Potassium Carbon Dioxide Anion Gap BUN Creatinine Est GFR (CKD-EPI) BUN/Creatinine Ratio Glucose POC Glucose (mg/dL) 123 H 165 H 135 H Calcium Phosphorus TIBC % Saturation Transferrin Ferritin Troponin I C-Reactive Protein Total Protein Albumin Procalcitonin Urine Protein Ur Leukocyte Esterase Urine Yeast (Budding) Tacrolimus 04/09/23 04/09/23 04/09/23 07:54 11:48 16:57 WBC RBC Hgb Hct MCHC RDW Plt Count Neutrophils # Lymphocytes # ESR PT INR ABG pO2 ABG HCO3 ABG Total CO2 ABG O2 Saturation Sodium Potassium Carbon Dioxide Anion Gap BUN 20 H Creatinine 2.32 H Est GFR (CKD-EPI) BUN/Creatinine Ratio Glucose 155 H POC Glucose (mg/dL) 191 H 127 H Calcium Phosphorus TIBC % Saturation Transferrin Ferritin Troponin I C-Reactive Protein Total Protein Albumin Procalcitonin Urine Protein Ur Leukocyte Esterase Urine Yeast (Budding) Tacrolimus 04/09/23 04/10/23 04/10/23 20:17 06:23 11:17 WBC RBC 2.84 L Hgb 8.1 L Hct 27.8 L MCHC 29.2 L RDW 18.3 H Plt Count 137 L Neutrophils # 8.4 H Lymphocytes # 0.7 L ESR PT INR ABG pO2 ABG HCO3 ABG Total CO2 ABG O2 Saturation Sodium Potassium Carbon Dioxide Anion Gap BUN Creatinine Est GFR (CKD-EPI) BUN/Creatinine Ratio Glucose POC Glucose (mg/dL) 123 H 138 H Calcium Phosphorus TIBC % Saturation Transferrin Ferritin Troponin I C-Reactive Protein Total Protein Albumin Procalcitonin Urine Protein Ur Leukocyte Esterase Urine Yeast (Budding) Tacrolimus 04/10/23 04/10/23 04/11/23 17:29 20:08 05:22 WBC RBC Hgb Hct MCHC RDW Plt Count Neutrophils # Lymphocytes # ESR PT INR ABG pO2 ABG HCO3 ABG Total CO2 ABG O2 Saturation Sodium Potassium Carbon Dioxide Anion Gap BUN Creatinine Est GFR (CKD-EPI) BUN/Creatinine Ratio Glucose POC Glucose (mg/dL) 214 H 208 H 223 H Calcium Phosphorus TIBC % Saturation Transferrin Ferritin Troponin I C-Reactive Protein Total Protein Albumin Procalcitonin Urine Protein Ur Leukocyte Esterase Urine Yeast (Budding) Tacrolimus 04/11/23 04/11/23 04/11/23 08:50 11:51 14:33 WBC RBC Hgb Hct MCHC RDW Plt Count Neutrophils # Lymphocytes # ESR PT INR ABG pO2 ABG HCO3 ABG Total CO2 ABG O2 Saturation Sodium 136 L 135 L Potassium 2.7 L* 2.9 L Carbon Dioxide Anion Gap BUN 18 H Creatinine 2.05 H 2.06 H Est GFR (CKD-EPI) BUN/Creatinine Ratio Glucose 217 H 218 H POC Glucose (mg/dL) 215 H Calcium Phosphorus TIBC % Saturation Transferrin Ferritin Troponin I C-Reactive Protein Total Protein Albumin Procalcitonin Urine Protein Ur Leukocyte Esterase Urine Yeast (Budding) Tacrolimus 04/11/23 04/11/23 04/11/23 16:57 20:10 20:35 WBC RBC Hgb Hct MCHC RDW Plt Count Neutrophils # Lymphocytes # ESR PT INR ABG pO2 ABG HCO3 ABG Total CO2 ABG O2 Saturation Sodium 133 L Potassium Carbon Dioxide Anion Gap BUN 20 H Creatinine 2.01 H Est GFR (CKD-EPI) BUN/Creatinine Ratio Glucose 192 H POC Glucose (mg/dL) 257 H 197 H Calcium Phosphorus TIBC % Saturation Transferrin Ferritin Troponin I C-Reactive Protein Total Protein Albumin Procalcitonin Urine Protein Ur Leukocyte Esterase Urine Yeast (Budding) Tacrolimus 04/12/23 04/12/23 04/12/23 06:06 11:57 16:58 WBC RBC Hgb Hct MCHC RDW Plt Count Neutrophils # Lymphocytes # ESR PT INR ABG pO2 ABG HCO3 ABG Total CO2 ABG O2 Saturation Sodium Potassium Carbon Dioxide Anion Gap BUN Creatinine Est GFR (CKD-EPI) BUN/Creatinine Ratio Glucose POC Glucose (mg/dL) 307 H 147 H 176 H Calcium Phosphorus TIBC % Saturation Transferrin Ferritin Troponin I C-Reactive Protein Total Protein Albumin Procalcitonin Urine Protein Ur Leukocyte Esterase Urine Yeast (Budding) Tacrolimus 04/12/23 04/13/23 04/13/23 20:52 05:49 11:43 WBC RBC Hgb Hct MCHC RDW Plt Count Neutrophils # Lymphocytes # ESR PT INR ABG pO2 ABG HCO3 ABG Total CO2 ABG O2 Saturation Sodium Potassium Carbon Dioxide Anion Gap BUN Creatinine Est GFR (CKD-EPI) BUN/Creatinine Ratio Glucose POC Glucose (mg/dL) 133 H 225 H 199 H Calcium Phosphorus TIBC % Saturation Transferrin Ferritin Troponin I C-Reactive Protein Total Protein Albumin Procalcitonin Urine Protein Ur Leukocyte Esterase Urine Yeast (Budding) Tacrolimus 04/13/23 04/13/23 04/14/23 17:26 20:30 05:39 WBC RBC Hgb Hct MCHC RDW Plt Count Neutrophils # Lymphocytes # ESR PT INR ABG pO2 ABG HCO3 ABG Total CO2 ABG O2 Saturation Sodium Potassium Carbon Dioxide Anion Gap BUN Creatinine Est GFR (CKD-EPI) BUN/Creatinine Ratio Glucose POC Glucose (mg/dL) 207 H 199 H 217 H Calcium Phosphorus TIBC % Saturation Transferrin Ferritin Troponin I C-Reactive Protein Total Protein Albumin Procalcitonin Urine Protein Ur Leukocyte Esterase Urine Yeast (Budding) Tacrolimus 04/14/23 04/14/23 04/14/23 11:37 16:14 16:14 WBC 12.0 H RBC 3.17 L Hgb 9.0 L Hct 30.7 L MCHC 29.3 L RDW 18.4 H Plt Count 144 L Neutrophils # Lymphocytes # ESR PT INR ABG pO2 ABG HCO3 ABG Total CO2 ABG O2 Saturation Sodium 136 L Potassium Carbon Dioxide Anion Gap BUN 18 H Creatinine 1.72 H Est GFR (CKD-EPI) BUN/Creatinine Ratio Glucose 162 H POC Glucose (mg/dL) 168 H Calcium 8.2 L Phosphorus TIBC % Saturation Transferrin Ferritin Troponin I C-Reactive Protein Total Protein Albumin Procalcitonin Urine Protein Ur Leukocyte Esterase Urine Yeast (Budding) Tacrolimus 04/14/23 04/14/23 04/15/23 17:22 19:30 05:46 WBC RBC Hgb Hct MCHC RDW Plt Count Neutrophils # Lymphocytes # ESR PT INR ABG pO2 ABG HCO3 ABG Total CO2 ABG O2 Saturation Sodium Potassium Carbon Dioxide Anion Gap BUN Creatinine Est GFR (CKD-EPI) BUN/Creatinine Ratio Glucose POC Glucose (mg/dL) 136 H 140 H 214 H Calcium Phosphorus TIBC % Saturation Transferrin Ferritin Troponin I C-Reactive Protein Total Protein Albumin Procalcitonin Urine Protein Ur Leukocyte Esterase Urine Yeast (Budding) Tacrolimus 04/15/23 04/15/23 04/15/23 06:06 07:23 07:23 WBC 12.5 H RBC 2.84 L Hgb 8.3 L Hct 28.2 L MCHC 29.3 L RDW 18.7 H Plt Count 100 L Neutrophils # Lymphocytes # ESR PT INR ABG pO2 ABG HCO3 ABG Total CO2 ABG O2 Saturation Sodium 136 L Potassium Carbon Dioxide Anion Gap BUN 19 H Creatinine 1.67 H Est GFR (CKD-EPI) BUN/Creatinine Ratio Glucose 190 H POC Glucose (mg/dL) Calcium 8.2 L Phosphorus TIBC % Saturation Transferrin Ferritin Troponin I C-Reactive Protein Total Protein Albumin Procalcitonin 0.41 H Urine Protein Ur Leukocyte Esterase Urine Yeast (Budding) Tacrolimus 04/15/23 04/15/23 04/15/23 07:23 07:23 11:17 WBC RBC Hgb Hct MCHC RDW Plt Count Neutrophils # Lymphocytes # ESR 44 H PT INR ABG pO2 ABG HCO3 ABG Total CO2 ABG O2 Saturation Sodium Potassium Carbon Dioxide Anion Gap BUN Creatinine Est GFR (CKD-EPI) BUN/Creatinine Ratio Glucose POC Glucose (mg/dL) 235 H Calcium Phosphorus TIBC % Saturation Transferrin Ferritin Troponin I C-Reactive Protein 16.0 H Total Protein Albumin Procalcitonin Urine Protein Ur Leukocyte Esterase Urine Yeast (Budding) Tacrolimus 04/15/23 04/15/23 04/16/23 17:18 20:01 05:55 WBC RBC Hgb Hct MCHC RDW Plt Count Neutrophils # Lymphocytes # ESR PT INR ABG pO2 ABG HCO3 ABG Total CO2 ABG O2 Saturation Sodium Potassium Carbon Dioxide Anion Gap BUN Creatinine Est GFR (CKD-EPI) BUN/Creatinine Ratio Glucose POC Glucose (mg/dL) 193 H 198 H 217 H Calcium Phosphorus TIBC % Saturation Transferrin Ferritin Troponin I C-Reactive Protein Total Protein Albumin Procalcitonin Urine Protein Ur Leukocyte Esterase Urine Yeast (Budding) Tacrolimus 04/16/23 04/16/23 04/16/23 11:33 13:53 13:53 WBC 11.3 H RBC 2.87 L Hgb 8.0 L Hct 28.0 L MCHC 28.6 L RDW 18.9 H Plt Count 109 L Neutrophils # Lymphocytes # ESR PT INR ABG pO2 ABG HCO3 ABG Total CO2 ABG O2 Saturation Sodium 136 L Potassium 2.9 L Carbon Dioxide Anion Gap BUN 27 H Creatinine 1.92 H Est GFR (CKD-EPI) BUN/Creatinine Ratio Glucose 211 H POC Glucose (mg/dL) 167 H Calcium 8.2 L Phosphorus TIBC % Saturation Transferrin Ferritin Troponin I C-Reactive Protein Total Protein Albumin Procalcitonin Urine Protein Ur Leukocyte Esterase Urine Yeast (Budding) Tacrolimus 11/11/23 11/11/23 11/12/23 16:53 19:52 05:55 WBC RBC Hgb Hct MCHC RDW Plt Count Neutrophils # Lymphocytes # ESR PT INR ABG pO2 ABG HCO3 ABG Total CO2 ABG O2 Saturation Sodium Potassium Carbon Dioxide Anion Gap BUN Creatinine Est GFR (CKD-EPI) BUN/Creatinine Ratio Glucose POC Glucose (mg/dL) 137 H 121 H 183 H Calcium Phosphorus TIBC % Saturation Transferrin Ferritin Troponin I C-Reactive Protein Total Protein Albumin Procalcitonin Urine Protein Ur Leukocyte Esterase Urine Yeast (Budding) Tacrolimus 04/17/23 04/17/23 04/17/23 08:38 11:21 16:54 WBC RBC Hgb Hct MCHC RDW Plt Count Neutrophils # Lymphocytes # ESR PT INR ABG pO2 ABG HCO3 ABG Total CO2 ABG O2 Saturation Sodium 134 L Potassium Carbon Dioxide Anion Gap BUN Creatinine 1.27 H Est GFR (CKD-EPI) BUN/Creatinine Ratio Glucose 167 H POC Glucose (mg/dL) 235 H 238 H Calcium 8.3 L Phosphorus TIBC % Saturation Transferrin Ferritin Troponin I C-Reactive Protein Total Protein Albumin Procalcitonin Urine Protein Ur Leukocyte Esterase Urine Yeast (Budding) Tacrolimus 04/17/23 04/17/23 04/18/23 20:03 21:01 00:50 WBC RBC Hgb Hct MCHC RDW Plt Count Neutrophils # Lymphocytes # ESR PT INR ABG pO2 122 H ABG HCO3 27 H ABG Total CO2 28 H ABG O2 Saturation 99.4 H Sodium Potassium Carbon Dioxide Anion Gap BUN Creatinine Est GFR (CKD-EPI) BUN/Creatinine Ratio Glucose POC Glucose (mg/dL) 296 H 222 H Calcium Phosphorus TIBC % Saturation Transferrin Ferritin Troponin I C-Reactive Protein Total Protein Albumin Procalcitonin Urine Protein Ur Leukocyte Esterase Urine Yeast (Budding) Tacrolimus - Diagnostic Findings Chest x-ray: image reviewed Assessment and Plan Assessment: Acute hypoxemic respiratory failure, currently intubated on the mechanical ventilator, possibly secondary to aspiration. Most recent chest x-ray shows bibasilar opacities which may represent atelectasis versus airspace disease and small effusions. Sepsis and septic shock, refractory to fluid replacement, currently on high-dose vasopressors Klebsiella pneumonia bacteremia, originally felt to be related to infected hemodialysis catheter, which has been replaced. Catheter culture did not isolat e any organisms. Repeat blood cultures have been negative so far Leukocytosis Anemia of chronic disease Thrombocytopenia, likely related to sepsis End-stage renal disease with previous renal transplant, currently requiring hemodialysis on a Tuesday, , Tuesday schedule. Patient does take antirejection medication in the form of Prograf, CellCept, and oral prednisone. CellCept is on hold due to immunosuppression. History of systolic congestive heart failure, with a mildly reduced LV function estimated at 45% on recent echocardiogram done December, Diabetes mellitus2, insulin-dependent Benign essential hypertension Hyperlipidemia History of asthma, stable Bilateral lower extremity wounds Plan: Patient was found to be severely hypoxic while on the floor, she was intubated and transferred to the intensive care unit. Post intubation chest x-ray showed endotracheal tube within the right mainstem bronchus. Endotracheal tube was withdrawn approximately 5 cm, and repeat chest x-ray shows endotracheal tube 2.5 cm above the yevgeniy. Continue on the mechanical ventilator, and increase PEEP to 10. Wean FiO2 as tolerated. Continue antibiotics per infectious disease, patient does have Klebsiella pneumonia bacteremia, repeat blood cultures are negative so far Given additional 1 L normal saline bolus Continue vasopressors in the form of norepinephrine and vasopressin. Patient will need central line access A right brachial arterial line was placed for continuous blood pressure monitoring and frequent blood draws Repeat labs are pending. Hemodialysis per nephrology Heparin for DVT prophylaxis and Protonix for GI prophylaxis Patient's condition is currently critical, and she is being monitored in the intensive care unit. Overall prognosis is guarded related to above-mentioned comorbidities. Further recommendations are forthcoming I have personally seen and examined the patient, performed the documentation and the assessment and plan as written. Number of minutes spent on the visit:20 72-year-old female patient, post kidney chest been maintained on immunosuppression, maintain on a combination of Prograf and steroids and CellCept on outpatient basis, resented initially to the hospital with a Klebsiella pneumoniae sepsis related to an infected hemodialysis catheter. Catheter has been removed and the patient has a second catheter inserted in the right femoral vein and this was inserted on 04/13/2023. Patient presented yesterday to be ICU with hypoxic respiratory failure and septic shock. She is currently profoundly hypotensive. She is sedated on propofol running at 50 mcg/kg/m. She is on norepinephrine running at 0.5 microvascular kilogram per minute and she is also on vasopressin physiologic dose. She has already received a total of 2 L of IV fluids. A triple lumen catheter and arterial line catheter was inserted. Her most recently artery pressure is 59. Cardiac rhythm is sinus and previous echocardiogram was shown an ejection fraction of 45% and the patient has [id number] mitral regurgitation. She is diabetic and she has history of hypertension hyperlipidemia bronchial asthma in addition to renal failure. My understanding that the patient is dialysis dependent for now and the patient is undergoing hemodialysis 3 times a week and her last hemodialysis session was on 04/16/2023. On examination, the patient is sedated. Her abdomen is soft. NG tube is in place and output is minimal at this point in time. She has chronic wounds in her bilateral heels and coccyx. Plan The patient is critically and septic shock, profoundly hypotensive. I'm going to stop the IV Rocephin and put the patient on a combination of meropenem, vancomycin and Eraxis. 2 sets of blood cultures will be sent. The patient will be started on stress dose hydrocortisone. We'll stop Prograf now. Repeat an echocardiogram. Family will be updated on her critical condition. This evaluation was done in more than one hour. Time with Patient: Greater than 30
[2023-04-18 04:35] LABS: Anisocytosis Slight; Basophils % (A) 0 %; Eosinophils % (A) 0 %; HCT 28.6 % (34.0-46.0); HGB 8.2 gm/dL (11.4-16.0); Hypochromasia Marked; Lymphocytes % (A) 6 %; MCHC 28.7 g/dL (31.0-37.0); MCV 97.6 fL (80.0-100.0); Macrocytosis Slight; Mean Platelet Volume 9.4; Monocytes # (A) 0.2 k/uL (0-1.0); Monocytes % (A) 1 %; Neutrophils # (A) 16.9 k/uL (1.3-7.7); Neutrophils % (A) 93 %; RBC 2.93 m/uL (3.80-5.40); WBC 18.2 k/uL (3.8-10.6)
[2023-04-18 04:51] LABS: ALT 13 U/L (4-34); AST 15 U/L (14-36); African American GFR (CKD) 38 (>60 ml/min/1.73 sqM); Albumin 1.6 g/dL (3.5-5.0); Alkaline Phosphatase 99 U/L (38-126); Anion Gap 8 mmol/L; Blood Urea Nitrogen 17 mg/dL (7-17); Calcium 8.1 mg/dL (8.4-10.2); Carbon Dioxide 21 mmol/L (22-30); Chloride 104 mmol/L (98-107); Glucose 265 mg/dL (74-99); Non-African American GFR(CKD) 33 (>60 ml/min/1.73 sqM); Potassium 4.3 mmol/L (3.5-5.1); Sodium 133 mmol/L (137-145); Total Bilirubin 0.4 mg/dL (0.2-1.3); Total Protein 3.6 g/dL (6.3-8.2)
[2023-04-18 05:24] LABS: Basophilic Stippling Present; Ovalocytes Present; Polychromasia Present
[2023-04-18 05:25] LABS: ABG Base Excess -1.6 mmol/L; ABG HCO3 23 mmol/L (21-25); ABG Oxygen Saturation 96.7 % (94-97); ABG PCO2 33 mmHg (35-45); ABG PH 7.45 (7.35-7.45); ABG PO2 72 mmHg (83-108); ABG TCO2 24 mmol/L (19-24)
[2023-04-18 05:25] LABS: Platelet Count 91 k/uL (150-450)
[2023-04-18 05:47] LABS: Allen Test Performed? no
[2023-04-18] MEDS ORDERED: HYDROCORTISONE SUCCINATE 100 MG/2 ML VIAL IV STA (06:18)
[2023-04-18 06:29] LABS: Glucose,Whole Blood 270 mg/dL (70-110)
[2023-04-18] MEDS: INSULIN ASPART (NovoLOG) 100 UNIT/ML VIAL SQ SCH (06:38)
--- NOTE | 2023-04-18 07:47 | XR ---
EXAMINATION TYPE: XR chest 1V portable DATE OF EXAM: 04/18/2023 HISTORY: Shortness of breath. COMPARISON: 04/18/2023 TECHNIQUE: Single view of the chest is submitted. FINDINGS: Demonstrated are scattered senescent parenchymal change. Indwelling tubes and catheters remain uncha nged. Basilar infiltrates with small associated pleural effusions persist essentially unchanged. The heart is stable. Hilar and mediastinal structures are within normal limits. Degenerative changes are seen of the dorsal spine. IMPRESSION: 1. Stable chest.
[2023-04-18] MEDS ORDERED: VANCOMYCIN IV PER PHARMACY 1 EACH MISC MISCELLANE PRN (08:07)
--- NOTE | 2023-04-18 08:17 | P.PCN ---
Date of Procedure: 04/18/23 Preoperative Diagnosis: septic shock Postoperative Diagnosis: septic shock Procedure(s) Performed: Central line Anesthesia: local Surgeon: Enrique Jay Pathology: other Condition: critical Disposition: ICU Operative Findings: Indication: Hemodynamic monitoring/Intravenous access. A time-out was completed verifying correct patient, procedure, site, positioning, and implant(s) or special equipment if applicable. The patient was placed in a dependent position appropriate for central line placement based on the vein to be cannulated. The patients right shoulder was prepped and draped in sterile fashion. 1% Lidocaine was used to anesthetize the surrounding skin area. A triple lumen 9F Cordis catheter was introduced into the right subclavian vein using Seldinger technique. The catheter was threaded smoothly over the guide wire and appropriate blood return was obtained. Each lumen of the catheter was evacuated of air and flushed with sterile saline. The catheter was then sutured in place to the skin and a sterile dressing applied. Perfusion to the extremity distal to the point of catheter insertion was checked and found to be adequate. The patient tolerated the procedure well and there were no complications.
[2023-04-18] MEDS: FOLIC ACID 1 MG TAB PO SCH (08:54)
[2023-04-18] MEDS: THIAMINE 100 MG TAB PO SCH ×2 (08:54→17:11)
[2023-04-18] MEDS: SODIUM BICARBONATE TAB 650 MG TAB PO SCH ×3 (08:54→17:10)
[2023-04-18] MEDS: ASPIRIN 81 MG PO SCH (08:54)
[2023-04-18] MEDS: CHLORHEXIDINE GLUCONATE 15 ML CUP MUCOUS MEM SCH ×2 (08:54→20:35)
[2023-04-18] MEDS: SODIUM CHLORIDE 0.9% 1,000 ML IV SCH ×3 (08:55→20:38)
--- NOTE | 2023-04-18 08:56 | XR ---
EXAMINATION TYPE: XR chest 1V portable DATE OF EXAM: 04/18/2023 COMPARISON: 04/18/2023 HISTORY: SOB, Follow Up FINDINGS: Interval placement of right-sided subclavian central venous line with its distal tip at the SVC right atrial junction. No evidence for pneumothorax. Endotracheal and NG tubes are unchanged. No change in bibasilar opacities. Stable appearance of the cardio-mediastinal structures at this time. Pleural effusion unchanged. IMPRESSION: 1. Stable portable chest. Clinical correlation and follow up until resolution is recommended.
[2023-04-18] MEDS ORDERED: VANCOMYCIN 1,250 MG in SODIUM CHLORIDE 0.9% 250 ML IVPB ONE (09:00)
[2023-04-18] MEDS ORDERED: ANIDULAFUNGIN 200 MG in SODIUM CHLORIDE 0.9% 200 ML IVPB ONE (09:00)
[2023-04-18] MEDS ORDERED: MEROPENEM 500 MG in SODIUM CHLORIDE 0.9% 100 ML IVPB SCH (09:00)
[2023-04-18] MEDS: NOREPINEPHRINE 32 MG in SODIUM CHLORIDE 0.9% 218 ML IV SCH (09:06)
--- NOTE | 2023-04-18 09:22 | P.PN ---
Subjective Patient is seen in follow-up for end-stage renal disease. She is maintained on hemodialysis on Tuesday schedule. Patient became confused overnight and was subsequently intubated. She is currently on Levophed and vasopressin. She has received fluid bolus and is also being started on maintenance fluids. Vital signs - hypotensive on vasopressor support. General: Resting in bed. HEENT: Intubated. LUNGS: Scattered rhonchi. HEART: Rate and Rhythm are regular. ABDOMEN: No distention. EXTREMITITES: No edema. Objective - Vital Signs Vital signs: Vital Signs Temp 98.2 F 04/18/23 08:00 Pulse 96 04/18/23 08:35 Resp 25 H 04/18/23 08:35 BP 91/62 04/18/23 08:35 Pulse Ox 56 L 04/18/23 06:15 FiO2 80 04/18/23 08:35 Intake & Output 04/17/23 04/18/23 04/18/23 18:59 06:59 18:59 Intake Total 1663.103 274 Output Total 0 0 Balance 1663.103 274 Intake: IV 1080 20 Sodium Chloride 0.9% 1, 80 20 000 ml @ 20 mls/hr IV . Q24H [facility] Rx#:[id number] Sodium Chloride 0.9% 1, 1000 000 ml @ 999 mls/hr IV . Q1H1M [facility] Rx#:[id number] Intake, IV Titration 583.103 254 Amount Norepinephrine 4 mg In 508.000 254 Sodium Chloride 0.9% 250 ml @ 0.03 MCG/KG/MIN 8. 555 mls/hr IV .Q24H [facility] Rx#:[id number] propofoL 1,000 mg In 75.103 Empty Bag 1 bag @ 15 MCG/ KG/MIN 6.736 mls/hr IV . [id number] [facility] Rx#:[id number] Output: Urine 0 0 Other: Voiding Method Diaper Diaper # Voids 0 # Bowel Movements 1 ABP, PAP, CO, CI - Last Documented Arterial Blood Pressure 109/45 - Labs CBC & Chem 7: 04/18/23 04:00 04/18/23 04:00 Labs: Abnormal Lab Results - Last 24 Hours (Table) 04/17/23 04/17/23 04/17/23 Range/Units 08:38 11:21 16:54 WBC (3.8-10.6) k/uL RBC (3.80-5.40) m/uL Hgb (11.4-16.0) gm/dL Hct (34.0-46.0) % MCHC (31.0-37.0) g/dL RDW (11.5-15.5) % Plt Count (150-450) k/uL Neutrophils # (1.3-7.7) k/uL ABG pCO2 (35-45) mmHg ABG pO2 (83-108) mmHg ABG HCO3 (21-25) mmol/L ABG Total CO2 (19-24) mmol/L ABG O2 Saturation (94-97) % ABG Lactic Acid (0.5-1.6) mmol/L Sodium 134 L (137-145) mmol/L Carbon Dioxide (22-30) mmol/L Creatinine 1.27 H (0.52-1.04) mg/dL Glucose 167 H (74-99) mg/dL POC Glucose (mg/dL) 235 H 238 H (70-110) mg/dL Calcium 8.3 L (8.4-10.2) mg/dL Total Protein (6.3-8.2) g/dL Albumin (3.5-5.0) g/dL 04/17/23 04/17/23 04/18/23 Range/Units 20:03 21:01 00:50 WBC (3.8-10.6) k/uL RBC (3.80-5.40) m/uL Hgb (11.4-16.0) gm/dL Hct (34.0-46.0) % MCHC (31.0-37.0) g/dL RDW (11.5-15.5) % Plt Count (150-450) k/uL Neutrophils # (1.3-7.7) k/uL ABG pCO2 (35-45) mmHg ABG pO2 122 H (83-108) mmHg ABG HCO3 27 H (21-25) mmol/L ABG Total CO2 28 H (19-24) mmol/L ABG O2 Saturation 99.4 H (94-97) % ABG Lactic Acid (0.5-1.6) mmol/L Sodium (137-145) mmol/L Carbon Dioxide (22-30) mmol/L Creatinine (0.52-1.04) mg/dL Glucose (74-99) mg/dL POC Glucose (mg/dL) 296 H 222 H (70-110) mg/dL Calcium (8.4-10.2) mg/dL Total Protein (6.3-8.2) g/dL Albumin (3.5-5.0) g/dL 04/18/23 04/18/23 04/18/23 Range/Units 04:00 04:00 05:08 WBC 18.2 H (3.8-10.6) k/uL RBC 2.93 L (3.80-5.40) m/uL Hgb 8.2 L (11.4-16.0) gm/dL Hct 28.6 L (34.0-46.0) % MCHC 28.7 L (31.0-37.0) g/dL RDW 19.0 H (11.5-15.5) % Plt Count 91 L (150-450) k/uL Neutrophils # 16.9 H (1.3-7.7) k/uL ABG pCO2 (35-45) mmHg ABG pO2 (83-108) mmHg ABG HCO3 (21-25) mmol/L ABG Total CO2 (19-24) mmol/L ABG O2 Saturation (94-97) % ABG Lactic Acid 3.1 H* (0.5-1.6) mmol/L Sodium 133 L (137-145) mmol/L Carbon Dioxide 21 L (22-30) mmol/L Creatinine 1.55 H (0.52-1.04) mg/dL Glucose 265 H (74-99) mg/dL POC Glucose (mg/dL) (70-110) mg/dL Calcium 8.1 L (8.4-10.2) mg/dL Total Protein 3.6 L (6.3-8.2) g/dL Albumin 1.6 L (3.5-5.0) g/dL 04/18/23 04/18/23 Range/Units 05:23 06:28 WBC (3.8-10.6) k/uL RBC (3.80-5.40) m/uL Hgb (11.4-16.0) gm/dL Hct (34.0-46.0) % MCHC (31.0-37.0) g/dL RDW (11.5-15.5) % Plt Count (150-450) k/uL Neutrophils # (1.3-7.7) k/uL ABG pCO2 33 L (35-45) mmHg ABG pO2 72 L (83-108) mmHg ABG HCO3 (21-25) mmol/L ABG Total CO2 (19-24) mmol/L ABG O2 Saturation (94-97) % ABG Lactic Acid (0.5-1.6) mmol/L Sodium (137-145) mmol/L Carbon Dioxide (22-30) mmol/L Creatinine (0.52-1.04) mg/dL Glucose (74-99) mg/dL POC Glucose (mg/dL) 270 H (70-110) mg/dL Calcium (8.4-10.2) mg/dL Total Protein (6.3-8.2) g/dL Albumin (3.5-5.0) g/dL Microbiology - Last 24 Hours (Table) 04/16/23 13:53 Blood Culture - Preliminary Blood Assessment and Plan Plan: Assessment: 1. End-stage renal disease maintained on hemodialysis Tuesday schedule. Femoral dialysis catheter was placed 04/13/2023. 2. Status post donor renal transplant in 2016. 3. Chronic systolic CHF ejection fraction of 40% with mild to moderate mitral regurgitation and moderate tricuspid regurgitation. 4. Volume overload. Improved. 5. Anemia of chronic kidney disease. On Aranesp. 6. Metabolic acidosis secondary to chronic kidney disease. On oral bicarb. Improved postdialysis. 7. Septic shock on antibiotics and vasopressor support. Blood culture positive for Klebsiella 04/07/2023 - permacath was removed and temporary dialysis catheter was placed in the groin 04/13/2023. Plan: Hemodialysis tomorrow. Wean FiO2 and vasopressors. Follow-up repeat cultures. Prograf and CellCept held. Started on high-dose IV steroids. Case discussed with the seed packer as well as patient's son. Prognosis guarded.
[2023-04-18] MEDS: predniSONE 5 MG TAB PO SCH (10:07)
[2023-04-18] MEDS: PANTOPRAZOLE 40 MG/10 ML VIAL IVP SCH (10:09)
--- NOTE | 2023-04-18 10:39 | CA ---
Transthoracic Echo Report Name: Mary Barrientos Age: 72 Gender: F : 1950 Exam Date: 04/18/2023 08:28 Exam Location: [facility] Ht (in): 63 Wt (lb): 165 Ordering Physician: Sedrick Peralta Attending/Referring Phys: Cryptographic Technician Sara Delgado RDCS Procedure CPT: Indications: evaluate LV function Cardiac Hx: Technical Quality: Poor Contrast 1: Total Dose (mL): Contrast 2: Total Dose (mL): MEASUREMENTS (Male / Female) Normal Values 2D ECHO LV Diastolic Diameter PLAX 3.6 cm 4.2 - 5.9 / 3.9 - 5.3 cm LV Systolic Diameter PLAX 2.5 cm IVS Diastolic Thickness 1.8 cm 0.6 - 1.0 / 0.6 - 0.9 cm LVPW Diastolic Thickness 1.3 cm 0.6 - 1.0 / 0.6 - 0.9 cm LV Relative Wall Thickness 0.9 RV Internal Dim ED PLAX 3.3 cm LA Systolic Diameter LX 3.1 cm 3.0 - 4.0 / 2.7 - 3.8 cm LA Volume 62.9 cm??? 18 - 58 / 22 - 52 cm??? LA Volume Index 34.1 cm???/m??? 16 - 28 cm???/m??? M-MODE Aortic Root Diameter MM 3.7 cm DOPPLER AV Peak Velocity 201.3 cm/s AV Peak Gradient 16.2 mmHg AV Mean Velocity 144.4 cm/s AV Mean Gradient 9.8 mmHg AV Velocity Time Integral 40.0 cm AI Peak Velocity 287.2 cm/s AI Peak Gradient 33.0 mmHg AI Pressure Half Time 739.3 ms LVOT Peak Velocity 120.6 cm/s LVOT Peak Gradient 5.8 mmHg MV Peak Velocity 190.9 cm/s MV Peak Gradient 14.6 mmHg MV Mean Velocity 100.7 cm/s MV Mean Gradient 4.9 mmHg MV Velocity Time Integral 31.6 cm TR Peak Velocity 284.7 cm/s TR Peak Gradient 32.4 mmHg Right Ventricular Systolic Press 37.4 mmHg FINDINGS Left Ventricle Left ventricular ejection fraction is estimated at 55 %. Small left ventricular cavity. Severely increased septal wall thickness. Moderately increased posterior wall thickness. Right Ventricle Mild right ventricular dilatation. Mild pulmonary hypertension. Right Atrium Normal right atrial size. Left Atrium Mildly increased left atrial volume. Mildly increased left atrial area. Mitral Valve Moderate thickening/calcification of the anterior mitral valve leaflet. Moderate thickening/calcification of the posterior mitral valve leaflet. Moderate mitral annular calcification. [id number]-[id number] mitral stenosis with mean gradient of 5 mmHg Aortic Valve Trileaflet aortic valve. Aortic valve sclerosis. Mild aortic regurgitation. Tricuspid Valve Structurally normal tricuspid valve. Mild tricuspid regurgitation. Pulmonic Valve Pulmonic valve not well visualized. Pericardium No pericardial effusion. Aorta Normal size aortic root and proximal ascending aorta. CONCLUSIONS Normal LV size and systolic function. There is moderate concentric LVH. Left ventricle cavity is small. There is moderate to severe mitral annular calcification with thickening of both mitral valve leaflets without significant restriction. Aortic valve sclerosis noted. Aortic valve not well seen. No significant pulmonary hypertension no pericardial Previewed by: Dr. Reuben Mcadams MD (Electronically Signed) Final Date: 18 April 2023 10:39
[2023-04-18 10:56] LABS: ABG Base Excess 0.8 mmol/L; ABG HCO3 25 mmol/L (21-25); ABG Oxygen Saturation 94.8 % (94-97); ABG PCO2 35 mmHg (35-45); ABG PH 7.46 (7.35-7.45); ABG PO2 63 mmHg (83-108); ABG TCO2 26 mmol/L (19-24); Allen Test Performed? Yes
--- NOTE | 2023-04-18 11:08 | P.PN ---
Subjective Progress Note Date: 04/18/23 72 -year-old female with a past medical history of renal transplant in 2016 currently with ESRD on dialysis TTS, hypertension, dyslipidemia, and insulin- dependent diabetes mellitus. Patient presented to the emergency department via EMS from home with a chief complaint of general weakness and burning with urination. Patient was in rehab at [facility] and was reportedly discharged home with her on Tuesday04/02/23, states that her is disabled and unable to help her very much and she believes she is still too weak to independently care for herself and needs to return to rehab. Patient underwent full evaluation in the emergency department. Vital signs upon arrival show blood pressure 147/76, heart rate 92, respiratory rate 18, temp 99.7F, SpO2 100% on room air. Labs completed and reviewed. CBC showing a stable normocytic anemia with hemoglobin of 8.9. Coagulation profile showing elevated PT of 12.8 and INR 1.2. BMP showing sodium 134, bicarb 21, BUN 13, creatinine 1.87, and GFR of 26. Liver profile unremarkable. Magnesium slightly low 1.7. Troponin elevated at 0.047 with repeat troponin is 0.043. TSH normal findings at 1.940. EKG completed showing normal sinus rhythm at 85 bpm with no significant T-wave or ST abnormalities showing no signs of acute ischemia. Patient was initially admitted to [facility] hospitalist group on 04/03/23 at 11:10 PM. We were notified of this admission at 7:49 AM on 04/04/23. During patient's workup, she was noted to develop significant encephalopathy/confusion. Infectious workup demonstrated a blood culture positive for Klebsiella which was pansensitive. Patient was started on ceftriaxone. ID was consulted and recommended exchange dialysis catheter with tip sent for culture. Catheter was removed on 04/10. Notably, patient's CellCept was discontinued after developing bacteremia, while her Prograf level was noted to be low and therefore Prograf was increased to 3 mg twice a day. Repeat blood cultures have been noted to be negative. Plan is to exchange HD catheter after catheter tip culture is negative at 72 hours. 04/12 She is confused. Appears lethargic. Discussed with Dr. Magaña, OK to hold HD for now. 04/13 Sleepy but easily arousable. HD catheter tip Cx negative. Vascular surgery re-consulted for permacath insertion. 04/14 She appears more lethargic. HD catheter inserted yesterday. Undergoing HD today. 04/15 Not appropriate for SNF at this time. Discussed with Dr. Blackwood, obtain ESR, procalcitonin and CRP, hopeful improvement in mentation with dialysis. ESR 44. CRP 16. Procal 0.41. CT head negative. CXR shows bilateral pleural effusions with atelectasis. Will discuss with Dr. Blackwood regarding re-culturing and escalating antibiotics. 04/16 Her mentation has improved today, she is answering questions appropriately. Discussed with Dr. Blackwood, recommends continuing Rocephin for now, hopeful improvement in mentation with dialysis. Possible hospital induced delirium. 04/17 More confused today. Repeat blood cultures collected yesterday. 04/18 Patient was noted to be hypoxic last night. She was placed on a non- rebreather. CXR was done which showed bibasilar opacities. Given her altered m entation, decision was made to intubate the patient. She was seen and examined in the ICU. Intubated. She is hypotensive with BP 90/55 HR 96 RR 30. CBC shows WBC 18.2, Hg 8.2, Plt 91. ABG pH 7.45, pCO2 33. Lactic acid 3.1. CMP Na 133, bicarb 21, Cr 1.55, glu 265, Ca 8.1, albumin 1.6. CXR shows ET tube intact, bibasilar opacities as seen on previous CXRs. Started on SoluCortef 100 mg IV Q8H. Levophed running at 0.5 mcg/kg/min and Vasopressin running at 0.03 units/min. Propofol 15 mcg/kg/min. Antibiotics escalated to Meropenem 500 mg IV Q8H, Vancomycin dosed per pharmacy and Anidulafungin 100 mg IV QD for fungal coverage. General: Intubated Derm: warm, dry Head: atraumatic, normocephalic, symmetric, oral thrush Eyes: EOMI, no lid lag, anicteric sclera Cardiovascular: S1S2 tachycardic, no murmur Lungs: Coarse BS bilateral, no rhonchi, no rales, no accessory muscle use Abdominal: soft, nontender to palpation Ext: no gross muscle atrophy, no edema, no contractures Neuro: Unable to determine Psych: Intubated Acute hypoxic respiratory failure Septic shock with recent Klebsiella bacteremia Acute metabolic encephalopathy Renal transplant recipient currently with ESRD on dialysis T//Tue Troponin elevation, chronic and secondary to ESRD and not consistent with acute coronary syndrome Anemia of chronic disease, secondary to chronic kidney disease Wounds to bilateral lower feet Insulin-dependent Diabetes mellitus type 2 with hyperglycemia Folate deficiency Hypertension Dyslipidemia Based on my assessment of this patient, this patient meets a high complexity level of care. Patient has an acute diagnosis of septic shock and acute hypoxic respiratory failure requiring intubation on 04/17. Previously treated for sepsis related to Klebsiella bacteremia with Rocephin with repeat BCx negative and HD catheter tip culture negative. Newly hypoxic on 04/17, possible aspiration. Acute hypoxic respiratory failure: Ventilator support. Septic shock with recent Klebsiella bacteremia: She has been on Rocephin 2g IV QD since 04/08 for treatment of Klebsiella bacteremia. Repeat BCx and HD tip Cx negative since initial positive. Possible aspiration given new hypoxia? Antibiotics escalated to Anidulafungin, Meropenem, and Vancomycin on 04/18. Currently on multiple pressors including Levophed, Vasopressin and Solucortef. Tacrolimus is discontinued. Echo is ordered. Repeat BCx, Sputum Cx, Pro-Jesse ordered. Pulmonology and ID on board. Acute metabolic encephalopathy: Likely due to above. CT head done this admission shows no acute changes. Fall precautions. PT and OT on board. Renal transplant recipient currently with ESRD on dialysis T//Sat: Monitor electrolytes. Bicarb 1300 mg PO TID. Continue hemodialysis. Nephrology on board. Troponin elevation, chronic and secondary to ESRD: Not consistent with acute coronary syndrome. ASA 81mg daily. Atorvastatin 10 mg HS. Anemia of chronic disease, secondary to chronic kidney disease Wounds to bilateral lower feet: Wound care consult recommendations appreciated. Insulin-dependent Diabetes mellitus type 2 with hyperglycemia: Accuchecks ACHS + LD SSI. Folate deficiency: Continue folic acid 1mg daily. Hypertension: Amlodipine 5mg daily, carvedilol 25 mg twice daily discontinued on 04/18 due to severe hypotension. Dyslipidemia: Lipitor as above. Heparin SQ for DVT prophylaxis. FULL CODE. I have reviewed the following senior solutions consultant notes: Nephrology, Pulmonology, ID note. I have reviewed the results of the following tests: As above. I have ordered the following tests: As above. I have discussed the care of this patient with the following independent historian: Discussed with RN. I have independently interpreted the following test below: CXR as above. I have discussed the management of this patient with the following physician: Discussed with Dr. Jay. Objective - Vital Signs Vital signs: Vital Signs Temp 96.8 F L 04/18/23 04:00 Pulse 96 04/18/23 07:00 Resp 30 H 04/18/23 07:00 BP 90/55 04/18/23 07:00 Pulse Ox 56 L 04/18/23 06:15 FiO2 80 04/18/23 04:00 Intake & Output 04/17/23 04/18/23 04/18/23 18:59 06:59 18:59 Intake Total 1663.103 20 Output Total 0 0 Balance 1663.103 20 Intake: IV 1080 20 Sodium Chloride 0.9% 1, 80 20 000 ml @ 20 mls/hr IV . Q24H [facility] Rx#:[id number] Sodium Chloride 0.9% 1, 1000 000 ml @ 999 mls/hr IV . Q1H1M [facility] Rx#:[id number] Intake, IV Titration 583.103 Amount Norepinephrine 4 mg In 508.000 Sodium Chloride 0.9% 250 ml @ 0.03 MCG/KG/MIN 8. 555 mls/hr IV .Q24H [facility] Rx#:[id number] propofoL 1,000 mg In 75.103 Empty Bag 1 bag @ 15 MCG/ KG/MIN 6.736 mls/hr IV . [id number] [facility] Rx#:[id number] Output: Urine 0 0 Other: Voiding Method Diaper Diaper # Voids 0 # Bowel Movements 1 ABP, PAP, CO, CI - Last Documented Arterial Blood Pressure 93/46 - Labs CBC & Chem 7: 04/18/23 04:00 04/18/23 04:00 Labs: Abnormal Lab Results - Last 24 Hours (Table) 04/17/23 04/17/23 04/17/23 Range/Units 08:38 11:21 16:54 WBC (3.8-10.6) k/uL RBC (3.80-5.40) m/uL Hgb (11.4-16.0) gm/dL Hct (34.0-46.0) % MCHC (31.0-37.0) g/dL RDW (11.5-15.5) % Plt Count (150-450) k/uL Neutrophils # (1.3-7.7) k/uL ABG pCO2 (35-45) mmHg ABG pO2 (83-108) mmHg ABG HCO3 (21-25) mmol/L ABG Total CO2 (19-24) mmol/L ABG O2 Saturation (94-97) % ABG Lactic Acid (0.5-1.6) mmol/L Sodium 134 L (137-145) mmol/L Carbon Dioxide (22-30) mmol/L Creatinine 1.27 H (0.52-1.04) mg/dL Glucose 167 H (74-99) mg/dL POC Glucose (mg/dL) 235 H 238 H (70-110) mg/dL Calcium 8.3 L (8.4-10.2) mg/dL Total Protein (6.3-8.2) g/dL Albumin (3.5-5.0) g/dL 04/17/23 04/17/23 04/18/23 Range/Units 20:03 21:01 00:50 WBC (3.8-10.6) k/uL RBC (3.80-5.40) m/uL Hgb (11.4-16.0) gm/dL Hct (34.0-46.0) % MCHC (31.0-37.0) g/dL RDW (11.5-15.5) % Plt Count (150-450) k/uL Neutrophils # (1.3-7.7) k/uL ABG pCO2 (35-45) mmHg ABG pO2 122 H (83-108) mmHg ABG HCO3 27 H (21-25) mmol/L ABG Total CO2 28 H (19-24) mmol/L ABG O2 Saturation 99.4 H (94-97) % ABG Lactic Acid (0.5-1.6) mmol/L Sodium (137-145) mmol/L Carbon Dioxide (22-30) mmol/L Creatinine (0.52-1.04) mg/dL Glucose (74-99) mg/dL POC Glucose (mg/dL) 296 H 222 H (70-110) mg/dL Calcium (8.4-10.2) mg/dL Total Protein (6.3-8.2) g/dL Albumin (3.5-5.0) g/dL 04/18/23 04/18/23 04/18/23 Range/Units 04:00 04:00 05:08 WBC 18.2 H (3.8-10.6) k/uL RBC 2.93 L (3.80-5.40) m/uL Hgb 8.2 L (11.4-16.0) gm/dL Hct 28.6 L (34.0-46.0) % MCHC 28.7 L (31.0-37.0) g/dL RDW 19.0 H (11.5-15.5) % Plt Count 91 L (150-450) k/uL Neutrophils # 16.9 H (1.3-7.7) k/uL ABG pCO2 (35-45) mmHg ABG pO2 (83-108) mmHg ABG HCO3 (21-25) mmol/L ABG Total CO2 (19-24) mmol/L ABG O2 Saturation (94-97) % ABG Lactic Acid 3.1 H* (0.5-1.6) mmol/L Sodium 133 L (137-145) mmol/L Carbon Dioxide 21 L (22-30) mmol/L Creatinine 1.55 H (0.52-1.04) mg/dL Glucose 265 H (74-99) mg/dL POC Glucose (mg/dL) (70-110) mg/dL Calcium 8.1 L (8.4-10.2) mg/dL Total Protein 3.6 L (6.3-8.2) g/dL Albumin 1.6 L (3.5-5.0) g/dL 04/18/23 04/18/23 Range/Units 05:23 06:28 WBC (3.8-10.6) k/uL RBC (3.80-5.40) m/uL Hgb (11.4-16.0) gm/dL Hct (34.0-46.0) % MCHC (31.0-37.0) g/dL RDW (11.5-15.5) % Plt Count (150-450) k/uL Neutrophils # (1.3-7.7) k/uL ABG pCO2 33 L (35-45) mmHg ABG pO2 72 L (83-108) mmHg ABG HCO3 (21-25) mmol/L ABG Total CO2 (19-24) mmol/L ABG O2 Saturation (94-97) % ABG Lactic Acid (0.5-1.6) mmol/L Sodium (137-145) mmol/L Carbon Dioxide (22-30) mmol/L Creatinine (0.52-1.04) mg/dL Glucose (74-99) mg/dL POC Glucose (mg/dL) 270 H (70-110) mg/dL Calcium (8.4-10.2) mg/dL Total Protein (6.3-8.2) g/dL Albumin (3.5-5.0) g/dL Microbiology - Last 24 Hours (Table) 04/16/23 13:53 Blood Culture - Preliminary Blood
[2023-04-18] MEDS: HYDROCORTISONE SUCCINATE 100 MG/2 ML VIAL IV SCH ×2 (11:30→17:10)
--- NOTE | 2023-04-18 11:41 | P.PN ---
Subjective Progress Note Date: 04/18/23 Principal diagnosis: Bacteremia Patient is a 72-year-old -[place] female with a comorbidities including diabetes mellitus hypertension hyperlipidemia end-stage renal disease on hemodialysis Tuesday via permacath patient presenting to the hospital with concerns for unable to care of self at home, patient did have blood cultures came back positive with gram-negative bacilli concerning for possible dialysis catheter infection. Dialysis catheter was removed 04/10/2023, the patient did have a new dialysis catheter placement on 04/13/2023, patient did have an episode of respiratory arrest night of 04/17/2023 requiring transfer to the ICU and intubation On today's evaluation that is 04/18/2023, the patient is afebrile , the patient is intubated on the vent currently requiring 80% FiO2, no significant purulent secretions through the ET reported by the nursing staff the patient is requiring significant amount of pressor support to maintain her blood pressure White count is 18.2, creatinine is 1.55, blood and sputum cultures has been repeated and those are pending Objective - Vital Signs Vital signs: Vital Signs Temp 98.2 F 04/18/23 08:00 Pulse 77 04/18/23 11:00 Resp 19 04/18/23 11:00 BP 87/49 04/18/23 11:00 Pulse Ox 56 L 04/18/23 06:15 FiO2 80 04/18/23 10:00 Intake & Output 04/17/23 04/18/23 04/18/23 18:59 06:59 18:59 Intake Total 9118.265 4056.688 Output Total 0 50 Balance 8569.512 9487.688 Weight 74.843 kg Intake: IV 1080 1190 Sodium Chloride 0.9% 1, 150 000 ml @ 150 mls/hr IV . Q6H40M [facility] Rx#:[id number] Sodium Chloride 0.9% 1, 80 1040 000 ml @ 20 mls/hr IV . Q24H [facility] Rx#:[id number] Sodium Chloride 0.9% 1, 1000 000 ml @ 999 mls/hr IV . Q1H1M [facility] Rx#:[id number] Intake, IV Titration 583.103 427.688 Amount Norepinephrine 4 mg In 508.000 254 Sodium Chloride 0.9% 250 ml @ 0.03 MCG/KG/MIN 8. 555 mls/hr IV .Q24H [facility] Rx#:[id number] Sodium Chloride 0.9% 1, 150 000 ml @ 150 mls/hr IV . Q6H40M [facility] Rx#:[id number] propofoL 1,000 mg In 75.103 23.688 Empty Bag 1 bag @ 15 MCG/ KG/MIN 6.736 mls/hr IV . [id number] [facility] Rx#:[id number] Output: Urine 0 50 Other: Voiding Method Diaper Diaper # Voids 0 # Bowel Movements 1 ABP, PAP, CO, CI - Last Documented Arterial Blood Pressure 110/37 - Exam GENERAL DESCRIPTION: Elderly female intubated on the vent RESPIRATORY SYSTEM: Unlabored breathing , decreased breath sounds at bases HEART: S1 S2 regular rate and rhythm ABDOMEN: Soft , no tenderness EXTREMITIES: Heel pressure ulcer unstageable but no redness - Labs CBC & Chem 7: 04/18/23 04:00 04/18/23 04:00 Labs: Abnormal Lab Results - Last 24 Hours (Table) 04/17/23 04/17/23 04/17/23 Range/Units 16:54 20:03 21:01 WBC (3.8-10.6) k/uL RBC (3.80-5.40) m/uL Hgb (11.4-16.0) gm/dL Hct (34.0-46.0) % MCHC (31.0-37.0) g/dL RDW (11.5-15.5) % Plt Count (150-450) k/uL Neutrophils # (1.3-7.7) k/uL ABG pH (7.35-7.45) ABG pCO2 (35-45) mmHg ABG pO2 (83-108) mmHg ABG HCO3 (21-25) mmol/L ABG Total CO2 (19-24) mmol/L ABG O2 Saturation (94-97) % ABG Lactic Acid (0.5-1.6) mmol/L Sodium (137-145) mmol/L Carbon Dioxide (22-30) mmol/L Creatinine (0.52-1.04) mg/dL Glucose (74-99) mg/dL POC Glucose (mg/dL) 238 H 296 H 222 H (70-110) mg/dL Calcium (8.4-10.2) mg/dL Total Protein (6.3-8.2) g/dL Albumin (3.5-5.0) g/dL Procalcitonin (0.02-0.09) ng/mL 04/18/23 04/18/23 04/18/23 Range/Units 00:50 04:00 04:00 WBC 18.2 H (3.8-10.6) k/uL RBC 2.93 L (3.80-5.40) m/uL Hgb 8.2 L (11.4-16.0) gm/dL Hct 28.6 L (34.0-46.0) % MCHC 28.7 L (31.0-37.0) g/dL RDW 19.0 H (11.5-15.5) % Plt Count 91 L (150-450) k/uL Neutrophils # 16.9 H (1.3-7.7) k/uL ABG pH (7.35-7.45) ABG pCO2 (35-45) mmHg ABG pO2 122 H (83-108) mmHg ABG HCO3 27 H (21-25) mmol/L ABG Total CO2 28 H (19-24) mmol/L ABG O2 Saturation 99.4 H (94-97) % ABG Lactic Acid (0.5-1.6) mmol/L Sodium 133 L (137-145) mmol/L Carbon Dioxide 21 L (22-30) mmol/L Creatinine 1.55 H (0.52-1.04) mg/dL Glucose 265 H (74-99) mg/dL POC Glucose (mg/dL) (70-110) mg/dL Calcium 8.1 L (8.4-10.2) mg/dL Total Protein 3.6 L (6.3-8.2) g/dL Albumin 1.6 L (3.5-5.0) g/dL Procalcitonin (0.02-0.09) ng/mL 04/18/23 04/18/23 04/18/23 Range/Units 04:00 05:08 05:23 WBC (3.8-10.6) k/uL RBC (3.80-5.40) m/uL Hgb (11.4-16.0) gm/dL Hct (34.0-46.0) % MCHC (31.0-37.0) g/dL RDW (11.5-15.5) % Plt Count (150-450) k/uL Neutrophils # (1.3-7.7) k/uL ABG pH (7.35-7.45) ABG pCO2 33 L (35-45) mmHg ABG pO2 72 L (83-108) mmHg ABG HCO3 (21-25) mmol/L ABG Total CO2 (19-24) mmol/L ABG O2 Saturation (94-97) % ABG Lactic Acid 3.1 H* (0.5-1.6) mmol/L Sodium (137-145) mmol/L Carbon Dioxide (22-30) mmol/L Creatinine (0.52-1.04) mg/dL Glucose (74-99) mg/dL POC Glucose (mg/dL) (70-110) mg/dL Calcium (8.4-10.2) mg/dL Total Protein (6.3-8.2) g/dL Albumin (3.5-5.0) g/dL Procalcitonin 0.41 H (0.02-0.09) ng/mL 04/18/23 04/18/23 Range/Units 06:28 10:50 WBC (3.8-10.6) k/uL RBC (3.80-5.40) m/uL Hgb (11.4-16.0) gm/dL Hct (34.0-46.0) % MCHC (31.0-37.0) g/dL RDW (11.5-15.5) % Plt Count (150-450) k/uL Neutrophils # (1.3-7.7) k/uL ABG pH 7.46 H (7.35-7.45) ABG pCO2 (35-45) mmHg ABG pO2 63 L (83-108) mmHg ABG HCO3 (21-25) mmol/L ABG Total CO2 26 H (19-24) mmol/L ABG O2 Saturation (94-97) % ABG Lactic Acid (0.5-1.6) mmol/L Sodium (137-145) mmol/L Carbon Dioxide (22-30) mmol/L Creatinine (0.52-1.04) mg/dL Glucose (74-99) mg/dL POC Glucose (mg/dL) 270 H (70-110) mg/dL Calcium (8.4-10.2) mg/dL Total Protein (6.3-8.2) g/dL Albumin (3.5-5.0) g/dL Procalcitonin (0.02-0.09) ng/mL Microbiology - Last 24 Hours (Table) 04/16/23 13:53 Blood Culture - Preliminary Blood Assessment and Plan (1) Bacteremia Current Visit: Yes Status: Acute Code(s): R78.81 - BACTEREMIA SNOMED Code(s): 9708559 (2) Unstageable pressure ulcer of left heel Current Visit: Yes Status: Acute Code(s): L89.620 - PRESSURE ULCER OF LEFT HEEL, UNSTAGEABLE SNOMED Code(s): 95182169190814197 Plan: 1-Patient with gram-negative bacteremia high clinical suspicion for possible permacatheter infection in this patient with no evidence of any abdominal tenderness on Examination and urine has been negative patient did have bilateral heel pressure ulcer with some necrotic tissue but no significant redness or foul-smelling drainage was noticed 2-patient did have significant change in her clinical condition, patient went into distress requiring intubation and transferred to the ICU, blood and sputum cultures have been obtained. We'll follow the patient antibiotics has been adjusted to meropenem and vancomycin to continue while waiting for repeat cultures to finalize Family the bedside and multiple questions were answered Dictation was produced using FITi[employer] dictation software. please excuse any grammatical, word or spelling errors.
[2023-04-18 13:59] LABS: Glucose,Whole Blood 291 mg/dL (70-110)
[2023-04-18] MEDS ORDERED: DEXTROSE 50% SYRINGE 50 ML IVP PRN ×2 (14:56)
[2023-04-18] MEDS ORDERED: INSULIN REGULAR 100 UNIT in SODIUM CHLORIDE 0.9% 100 ML IV SCH (15:00)
[2023-04-18 15:34] LABS: Glucose,Whole Blood 262 mg/dL (70-110)
[2023-04-18 16:45] LABS: Glucose,Whole Blood 267 mg/dL (70-110)
[2023-04-18] MEDS ORDERED: INSULIN ASPART (NovoLOG) 100 UNIT/ML VIAL SQ SCH (17:30)
[2023-04-18 17:31] LABS: ABG Base Excess -3.1 mmol/L; ABG HCO3 21 mmol/L (21-25); ABG Oxygen Saturation >100.0 % (94-97); ABG PCO2 34 mmHg (35-45); ABG PO2 179 mmHg (83-108); Allen Test Performed? Yes
[2023-04-18] MEDS: VASOPRESSIN 60 UNIT in SODIUM CHLORIDE 0.9% 150 ML IV SCH (17:54)
[2023-04-18 18:05] LABS: Glucose,Whole Blood 226 mg/dL (70-110)
[2023-04-18 18:12] LABS: Anisocytosis Slight; HCT 24.5 % (34.0-46.0); HGB 7.1 gm/dL (11.4-16.0); Hypochromasia Marked; MCH 28.3 pg (25.0-35.0); MCHC 28.7 g/dL (31.0-37.0); MCV 98.4 fL (80.0-100.0); Macrocytosis Slight; Mean Platelet Volume 9.3; RBC 2.49 m/uL (3.80-5.40); RDW 18.8 % (11.5-15.5); WBC 19.8 k/uL (3.8-10.6)
[2023-04-18 18:16] LABS: Platelet Count 74 k/uL (150-450)
[2023-04-18 19:00] LABS: Glucose,Whole Blood 195 mg/dL (70-110)
[2023-04-18 19:56] LABS: Glucose,Whole Blood 176 mg/dL (70-110)
[2023-04-18] MEDS: MEROPENEM 500 MG in SODIUM CHLORIDE 0.9% 100 ML IVPB SCH (20:35)
[2023-04-18] MEDS ORDERED: INSULIN DETEMIR (LEVEMIR) 100 UNIT/ML SYR SQ SCH (21:00)
[2023-04-18 21:07] LABS: Glucose,Whole Blood 132 mg/dL (70-110)
[2023-04-18 22:13] LABS: Glucose,Whole Blood 157 mg/dL (70-110)
[2023-04-18 23:54] LABS: Glucose,Whole Blood 201 mg/dL (70-110)
[2023-04-19] MEDS: HYDROCORTISONE SUCCINATE 100 MG/2 ML VIAL IV SCH ×3 (00:06→15:53)
[2023-04-19 00:56] LABS: Glucose,Whole Blood 204 mg/dL (70-110)
[2023-04-19 02:04] LABS: Glucose,Whole Blood 193 mg/dL (70-110)
[2023-04-19 03:17] LABS: Glucose,Whole Blood 146 mg/dL (70-110)
[2023-04-19 04:07] LABS: Glucose,Whole Blood 139 mg/dL (70-110)
[2023-04-19 04:24] LABS: ALT 16 U/L (4-34); AST 24 U/L (14-36); African American GFR (CKD) 37 (>60 ml/min/1.73 sqM); Albumin 1.4 g/dL (3.5-5.0); Alkaline Phosphatase 70 U/L (38-126); Anion Gap 6 mmol/L; Blood Urea Nitrogen 20 mg/dL (7-17); Calcium 7.5 mg/dL (8.4-10.2); Carbon Dioxide 22 mmol/L (22-30); Chloride 110 mmol/L (98-107); Glucose 130 mg/dL (74-99); Non-African American GFR(CKD) 32 (>60 ml/min/1.73 sqM); Potassium 3.5 mmol/L (3.5-5.1); Sodium 138 mmol/L (137-145); Total Bilirubin 0.3 mg/dL (0.2-1.3); Total Protein 3.4 g/dL (6.3-8.2)
[2023-04-19 04:26] LABS: Anisocytosis Slight; Basophils % (A) 0 %; Eosinophils # (A) 0.1 k/uL (0-0.7); Eosinophils % (A) 0 %; HCT 24.6 % (34.0-46.0); Hypochromasia Marked; Lymphocytes % (A) 4 %; MCH 27.5 pg (25.0-35.0); MCHC 28.1 g/dL (31.0-37.0); MCV 97.7 fL (80.0-100.0); Macrocytosis Slight; Mean Platelet Volume 9.2; Monocytes # (A) 0.4 k/uL (0-1.0); Monocytes % (A) 2 %; Neutrophils # (A) 20.8 k/uL (1.3-7.7); Neutrophils % (A) 93 %; RBC 2.52 m/uL (3.80-5.40); RDW 19.2 % (11.5-15.5); WBC 22.3 k/uL (3.8-10.6)
[2023-04-19 05:17] LABS: Glucose,Whole Blood 162 mg/dL (70-110)
[2023-04-19 05:49] LABS: ABG Base Excess -0.3 mmol/L; ABG HCO3 24 mmol/L (21-25); ABG Oxygen Saturation 99.6 % (94-97); ABG PCO2 35 mmHg (35-45); ABG PH 7.44 (7.35-7.45); ABG PO2 146 mmHg (83-108); ABG TCO2 25 mmol/L (19-24); Allen Test Performed? Yes
[2023-04-19] MEDS ORDERED: VANCOMYCIN 1,250 MG in SODIUM CHLORIDE 0.9% 250 ML IVPB ONE (06:00)
[2023-04-19 06:09] LABS: Glucose,Whole Blood 192 mg/dL (70-110)
[2023-04-19 06:11] LABS: HGB 6.9 gm/dL (11.4-16.0); Platelet Count 75 k/uL (150-450)
--- NOTE | 2023-04-19 06:29 | XR ---
EXAMINATION TYPE: XR chest 1V portable DATE OF EXAM: 04/19/2023 5:27 AM COMPARISON: Chest radiographs from 04/18/2023 TECHNIQUE: XR chest 1V portable Portable AP radiograph of the chest. CLINICAL INDICATION:Female, 72 years old with history of Tube placement; FINDINGS: Lungs/Pleura: Blunting of both posterior angles. Bibasilar patchy airspace opacities redemonstrated. No pneumothorax. Pulmonary vascularity: Unremarkable. Heart/mediastinum: Cardiomediastinal silhouette is stable. Musculoskeletal: No acute osseous pathology. Other findings: None Lines/Tubes: Stable endotracheal and enteric tubes. Stable right subclavian approach central venous catheter. IMPRESSION: 1. Stable support lines and tubes. 2. Similar bibasilar patchy airspace opacities and small bilateral pleural effusions.
[2023-04-19 07:00] LABS: Glucose,Whole Blood 191 mg/dL (70-110)
[2023-04-19] MEDS ORDERED: DEXTROSE 50% SYRINGE 50 ML IVP PRN ×2 (08:45)
--- NOTE | 2023-04-19 08:45 | P.PN ---
Subjective Progress Note Date: 04/19/23 On today's evaluation of 04/19/2023, the patient is being seen for a follow-up. The patient remains intubated on a mechanical ventilator. She was hemodynamically unstable in septic shock and based on that, the patient was intubated and placed on a mechanical ventilator and she was started on fluids and pressors and aggressive resuscitation. She was brought into the intensive care unit yesterday. The patient is currently sedated on propofol which is running at 10 mcg/kg/m. She is sent has a mechanical ventilator. She is on assist-control mode at the rate of 14, tidal volume of 350, FiO2 of 60% with a PEEP of 10. The blood gas from today shows a pH of 7.44 episodes of 35 and pO2 of 146. The chest x-ray from today shows adequate positioning of the orotracheal tube. The patient has limited bibasilar pulmonary infiltrates and possibly some small pleural effusions. The patient also has a right subclavian triple-lumen catheter in place. Sputum samples were sent and there is also still pending for now. Blood cultures still pending for now. The patient is on broad-spectrum antibiotics and I started on a combination of meropenem, Eraxis and vancomycin yesterday pending further cultures. White cell count today's of 22.3. She is afebrile. Pressors have been weaned off. Norepinephrine is running at 0.04 mcg/kg/m and the patient is also on physiologic dose of vasopressin. The patient was also given stress dose hydrocortisone yesterday. Immunosuppression medications were discontinued. There is a drop in hemoglobin down to 6.9 without evidence of any GI bleed. The patient will be receiving a unit of packed RBC. On a separate note, the patient is undergoing hemodialysis today. The ends of 20 with a creatinine of 1.6. Potassium levels at 3.5. Sodium level is at 138. Echocardiogram was done and completed yesterday and the patient has a normal LV function. There is moderate LVH, LV cavity is small. There is moderate to severe mitral annular calcification and thickening. No evidence of any pericardial effusion. The patient was also started on enteral feeding for nutritional support. She is currently on vital high-protein at the rate of 37 mL an hour. In terms of her blood sugar control, she is on insulin drip running at 2.25 units an hour. Objective - Vital Signs Vital signs: Vital Signs Temp 96.4 F L 04/19/23 04:00 Pulse 79 04/19/23 07:45 Resp 18 04/19/23 07:45 BP 122/61 04/19/23 07:45 Pulse Ox 99 04/19/23 07:45 FiO2 60 04/19/23 08:06 Intake & Output 04/18/23 04/19/23 04/19/23 18:59 06:59 18:59 Intake Total 4089.332 2224.989 196.028 Output Total 50 15 0 Balance 4039.332 2209.989 196.028 Weight 74.843 kg Intake: IV 3438 1816 156 Meropenem 500 mg In 100 Sodium Chloride 0.9% 100 ml @ 33.3 mls/hr IVPB Q24H [facility] Rx#:[id number] Pressure Bag (0.9 Sodium 48 66 6 Chloride) Sodium Chloride 0.9% 1, 1350 1650 150 000 ml @ 150 mls/hr IV . Q6H40M [facility] Rx#:[id number] Sodium Chloride 0.9% 1, 1040 000 ml @ 20 mls/hr IV . Q24H [facility] Rx#:[id number] Sodium Chloride 0.9% 1, 1000 000 ml @ 999 mls/hr IV . Q1H1M [facility] Rx#:[id number] Intake, IV Titration 551.332 98.989 10.028 Amount Insulin Regular 100 unit 8.116 30.380 1.083 In Sodium Chloride 0.9% 100 ml @ Titrate IV .Q0M [facility] Rx#:[id number] Norepinephrine 32 mg In 39.216 25.495 8.945 Sodium Chloride 0.9% 218 ml @ 0.5 MCG/KG/MIN 17. 541 mls/hr IV .[id number] [facility] Rx#:[id number] Norepinephrine 4 mg In 254 Sodium Chloride 0.9% 250 ml @ 0.03 MCG/KG/MIN 8. 555 mls/hr IV .Q24H [facility] Rx#:[id number] Sodium Chloride 0.9% 1, 150 000 ml @ 150 mls/hr IV . Q6H40M [facility] Rx#:[id number] propofoL 1,000 mg In 100.000 43.114 Empty Bag 1 bag @ 15 MCG/ KG/MIN 6.736 mls/hr IV . [id number] [facility] Rx#:[id number] Tube Feeding 70 250 30 Other 30 60 Output: Urine 50 15 0 Other: Voiding Method Indwelling Catheter Indwelling Catheter # Bowel Movements 1 1 ABP, PAP, CO, CI - Last Documented Arterial Blood Pressure 148/54 - Exam GENERAL EXAM: 72-year-old female, sedated and synchronous with mechanical ventilator. HEAD: Normocephalic and atraumatic EYES: Normal reaction of pupils, equal size. NOSE: Clear with pink turbinates. THROAT: No erythema or exudates. NECK: No masses, no JVD. CHEST: No chest wall deformity. LUNGS: Equal air entry with no crackles, wheeze, rhonchi or dullness. No conversational dyspnea or accessory muscle use.. CVS: S1 and S2 normal with no audible murmur, regular rhythm. No extra heart sounds ABDOMEN: No hepatosplenomegaly, active bowel sounds, no guarding or rigidity. SPINE: No scoliosis or deformity SKIN: There is a decubitus pressure ulcer, along with bilateral heel ulcerations. Eschar noted on the right foot. CENTRAL NERVOUS SYSTEM: Sedated, no focal deficits, tone is weak in all 4 extremities. EXTREMITIES: There is no peripheral edema, clubbing, or cyanosis. Peripheral pulses are intact. - Labs CBC & Chem 7: 04/19/23 04:04 04/19/23 04:04 Labs: Abnormal Lab Results - Last 24 Hours (Table) 04/18/23 04/18/23 04/18/23 Range/Units 04:00 10:50 13:58 WBC (3.8-10.6) k/uL RBC (3.80-5.40) m/uL Hgb (11.4-16.0) gm/dL Hct (34.0-46.0) % MCHC (31.0-37.0) g/dL RDW (11.5-15.5) % Plt Count (150-450) k/uL Neutrophils # (1.3-7.7) k/uL ABG pH 7.46 H (7.35-7.45) ABG pCO2 (35-45) mmHg ABG pO2 63 L (83-108) mmHg ABG Total CO2 26 H (19-24) mmol/L ABG O2 Saturation (94-97) % Chloride (98-107) mmol/L BUN (7-17) mg/dL Creatinine (0.52-1.04) mg/dL Glucose (74-99) mg/dL POC Glucose (mg/dL) 291 H (70-110) mg/dL Calcium (8.4-10.2) mg/dL Magnesium (1.6-2.3) mg/dL Total Protein (6.3-8.2) g/dL Albumin (3.5-5.0) g/dL Procalcitonin 0.41 H (0.02-0.09) ng/mL Crossmatch 04/18/23 04/18/23 04/18/23 Range/Units 15:32 16:41 17:25 WBC (3.8-10.6) k/uL RBC (3.80-5.40) m/uL Hgb (11.4-16.0) gm/dL Hct (34.0-46.0) % MCHC (31.0-37.0) g/dL RDW (11.5-15.5) % Plt Count (150-450) k/uL Neutrophils # (1.3-7.7) k/uL ABG pH (7.35-7.45) ABG pCO2 34 L (35-45) mmHg ABG pO2 179 H (83-108) mmHg ABG Total CO2 (19-24) mmol/L ABG O2 Saturation >100.0 H (94-97) % Chloride (98-107) mmol/L BUN (7-17) mg/dL Creatinine (0.52-1.04) mg/dL Glucose (74-99) mg/dL POC Glucose (mg/dL) 262 H 267 H (70-110) mg/dL Calcium (8.4-10.2) mg/dL Magnesium (1.6-2.3) mg/dL Total Protein (6.3-8.2) g/dL Albumin (3.5-5.0) g/dL Procalcitonin (0.02-0.09) ng/mL Crossmatch 04/18/23 04/18/23 04/18/23 Range/Units 17:39 18:03 18:58 WBC 19.8 H (3.8-10.6) k/uL RBC 2.49 L (3.80-5.40) m/uL Hgb 7.1 L (11.4-16.0) gm/dL Hct 24.5 L (34.0-46.0) % MCHC 28.7 L (31.0-37.0) g/dL RDW 18.8 H (11.5-15.5) % Plt Count 74 L (150-450) k/uL Neutrophils # (1.3-7.7) k/uL ABG pH (7.35-7.45) ABG pCO2 (35-45) mmHg ABG pO2 (83-108) mmHg ABG Total CO2 (19-24) mmol/L ABG O2 Saturation (94-97) % Chloride (98-107) mmol/L BUN (7-17) mg/dL Creatinine (0.52-1.04) mg/dL Glucose (74-99) mg/dL POC Glucose (mg/dL) 226 H 195 H (70-110) mg/dL Calcium (8.4-10.2) mg/dL Magnesium (1.6-2.3) mg/dL Total Protein (6.3-8.2) g/dL Albumin (3.5-5.0) g/dL Procalcitonin (0.02-0.09) ng/mL Crossmatch 04/18/23 04/18/23 04/18/23 Range/Units 19:54 21:06 22:11 WBC (3.8-10.6) k/uL RBC (3.80-5.40) m/uL Hgb (11.4-16.0) gm/dL Hct (34.0-46.0) % MCHC (31.0-37.0) g/dL RDW (11.5-15.5) % Plt Count (150-450) k/uL Neutrophils # (1.3-7.7) k/uL ABG pH (7.35-7.45) ABG pCO2 (35-45) mmHg ABG pO2 (83-108) mmHg ABG Total CO2 (19-24) mmol/L ABG O2 Saturation (94-97) % Chloride (98-107) mmol/L BUN (7-17) mg/dL Creatinine (0.52-1.04) mg/dL Glucose (74-99) mg/dL POC Glucose (mg/dL) 176 H 132 H 157 H (70-110) mg/dL Calcium (8.4-10.2) mg/dL Magnesium (1.6-2.3) mg/dL Total Protein (6.3-8.2) g/dL Albumin (3.5-5.0) g/dL Procalcitonin (0.02-0.09) ng/mL Crossmatch 04/18/23 04/19/23 04/19/23 Range/Units 23:52 00:55 02:02 WBC (3.8-10.6) k/uL RBC (3.80-5.40) m/uL Hgb (11.4-16.0) gm/dL Hct (34.0-46.0) % MCHC (31.0-37.0) g/dL RDW (11.5-15.5) % Plt Count (150-450) k/uL Neutrophils # (1.3-7.7) k/uL ABG pH (7.35-7.45) ABG pCO2 (35-45) mmHg ABG pO2 (83-108) mmHg ABG Total CO2 (19-24) mmol/L ABG O2 Saturation (94-97) % Chloride (98-107) mmol/L BUN (7-17) mg/dL Creatinine (0.52-1.04) mg/dL Glucose (74-99) mg/dL POC Glucose (mg/dL) 201 H 204 H 193 H (70-110) mg/dL Calcium (8.4-10.2) mg/dL Magnesium (1.6-2.3) mg/dL Total Protein (6.3-8.2) g/dL Albumin (3.5-5.0) g/dL Procalcitonin (0.02-0.09) ng/mL Crossmatch 04/19/23 04/19/23 04/19/23 Range/Units 03:16 04:04 04:04 WBC 22.3 H (3.8-10.6) k/uL RBC 2.52 L (3.80-5.40) m/uL Hgb 6.9 L* (11.4-16.0) gm/dL Hct 24.6 L (34.0-46.0) % MCHC 28.1 L (31.0-37.0) g/dL RDW 19.2 H (11.5-15.5) % Plt Count 75 L (150-450) k/uL Neutrophils # 20.8 H (1.3-7.7) k/uL ABG pH (7.35-7.45) ABG pCO2 (35-45) mmHg ABG pO2 (83-108) mmHg ABG Total CO2 (19-24) mmol/L ABG O2 Saturation (94-97) % Chloride (98-107) mmol/L BUN (7-17) mg/dL Creatinine (0.52-1.04) mg/dL Glucose (74-99) mg/dL POC Glucose (mg/dL) 146 H (70-110) mg/dL Calcium (8.4-10.2) mg/dL Magnesium 1.4 L (1.6-2.3) mg/dL Total Protein (6.3-8.2) g/dL Albumin (3.5-5.0) g/dL Procalcitonin (0.02-0.09) ng/mL Crossmatch 04/19/23 04/19/23 04/19/23 Range/Units 04:04 04:06 05:16 WBC (3.8-10.6) k/uL RBC (3.80-5.40) m/uL Hgb (11.4-16.0) gm/dL Hct (34.0-46.0) % MCHC (31.0-37.0) g/dL RDW (11.5-15.5) % Plt Count (150-450) k/uL Neutrophils # (1.3-7.7) k/uL ABG pH (7.35-7.45) ABG pCO2 (35-45) mmHg ABG pO2 (83-108) mmHg ABG Total CO2 (19-24) mmol/L ABG O2 Saturation (94-97) % Chloride 110 H (98-107) mmol/L BUN 20 H (7-17) mg/dL Creatinine 1.60 H (0.52-1.04) mg/dL Glucose 130 H (74-99) mg/dL POC Glucose (mg/dL) 139 H 162 H (70-110) mg/dL Calcium 7.5 L (8.4-10.2) mg/dL Magnesium (1.6-2.3) mg/dL Total Protein 3.4 L (6.3-8.2) g/dL Albumin 1.4 L (3.5-5.0) g/dL Procalcitonin (0.02-0.09) ng/mL Crossmatch 04/19/23 04/19/23 04/19/23 Range/Units 05:40 06:08 06:26 WBC (3.8-10.6) k/uL RBC (3.80-5.40) m/uL Hgb (11.4-16.0) gm/dL Hct (34.0-46.0) % MCHC (31.0-37.0) g/dL RDW (11.5-15.5) % Plt Count (150-450) k/uL Neutrophils # (1.3-7.7) k/uL ABG pH (7.35-7.45) ABG pCO2 (35-45) mmHg ABG pO2 146 H (83-108) mmHg ABG Total CO2 25 H (19-24) mmol/L ABG O2 Saturation 99.6 H (94-97) % Chloride (98-107) mmol/L BUN (7-17) mg/dL Creatinine (0.52-1.04) mg/dL Glucose (74-99) mg/dL POC Glucose (mg/dL) 192 H (70-110) mg/dL Calcium (8.4-10.2) mg/dL Magnesium (1.6-2.3) mg/dL Total Protein (6.3-8.2) g/dL Albumin (3.5-5.0) g/dL Procalcitonin (0.02-0.09) ng/mL Crossmatch See Detail 04/19/23 Range/Units 06:58 WBC (3.8-10.6) k/uL RBC (3.80-5.40) m/uL Hgb (11.4-16.0) gm/dL Hct (34.0-46.0) % MCHC (31.0-37.0) g/dL RDW (11.5-15.5) % Plt Count (150-450) k/uL Neutrophils # (1.3-7.7) k/uL ABG pH (7.35-7.45) ABG pCO2 (35-45) mmHg ABG pO2 (83-108) mmHg ABG Total CO2 (19-24) mmol/L ABG O2 Saturation (94-97) % Chloride (98-107) mmol/L BUN (7-17) mg/dL Creatinine (0.52-1.04) mg/dL Glucose (74-99) mg/dL POC Glucose (mg/dL) 191 H (70-110) mg/dL Calcium (8.4-10.2) mg/dL Magnesium (1.6-2.3) mg/dL Total Protein (6.3-8.2) g/dL Albumin (3.5-5.0) g/dL Procalcitonin (0.02-0.09) ng/mL Crossmatch Microbiology - Last 24 Hours (Table) 04/16/23 13:53 Blood Culture - Preliminary Blood 04/17/23 21:45 Gram Stain - Preliminary Sputum Assessment and Plan Assessment: Acute hypoxemic respiratory failure, currently intubated on the mechanical ventilator, possibly secondary to aspiration. Most recent chest x-ray shows bibasilar opacities which may represent atelectasis versus airspace disease and small effusions. Oxygenation is stable at this point in time. Chest x-ray shows bibasilar pulmonary infiltrates. Pneumonia cannot be completely ruled out. Sputum samples have been sent and the patient remains intubated on a mechanical ventilator. Sepsis and septic shock, responded to fluids and pressors and the patient is currently on minimal doses of pressors. Overall fluid balance over the past 24 hours has been in the order of 6.2 L. Klebsiella pneumonia bacteremia, originally felt to be related to infected hemodialysis catheter, which has been replaced. Catheter culture did not isolate any organisms. Repeat blood cultures have been negative so far Leukocytosis, white blood count remains elevated Anemia of chronic disease, drop in hemoglobin without evidence of any GI bleed and the patient will be receiving a unit of packed RBC Thrombocytopenia, likely related to sepsis End-stage renal disease with previous renal transplant, currently requiring hemodialysis on a Tuesday, , Tuesday schedule. Patient does take antirejection medication in the form of Prograf, CellCept, and oral prednisone. CellCept is on hold due to immunosuppression. Patient undergoing hemodialysis this morning History of systolic congestive heart failure, with a mildly reduced LV function estimated at 45% on recent echocardiogram done December, Diabetes mellitus2, insulin-dependent, currently on insulin drip Benign essential hypertension Hyperlipidemia History of asthma, stable Bilateral lower extremity wounds Plan: Continue ventilator support, no ventilator changes for today Continue the broad-spectrum antibiotics and the patient is currently on a combination of meropenem, Eraxis and vancomycin Awaiting the results of the sputum and the blood cultures Echocardiogram shows a preserved LV function Discontinue the vasopressin physiologic dose Wean off norepinephrine Continue enteral feeding for nutritional support Complete hemodialysis today Keep the patient on propofol Continue stress dose hydrocortisone Keep the patient off immunosuppressive agents Proceed with hemodialysis today Monitor CVP Adequately resuscitated and current IV fluids will be kept down to 50 mL an hour Stop insulin drip and give the patient 10 units of Levemir plus a sliding scale coverage Condition is critical and we'll continue to follow and will make further recommendations based on her progress. This evaluation was done in more than 30 minutes. Time with Patient: Greater than 30
[2023-04-19 09:46] LABS: Glucose,Whole Blood 167 mg/dL (70-110)
[2023-04-19] MEDS: ANIDULAFUNGIN 100 MG in SODIUM CHLORIDE 0.9% 100 ML IVPB SCH (09:52)
[2023-04-19] MEDS: INSULIN DETEMIR (LEVEMIR) 100 UNIT/ML SYR SQ SCH (09:53)
[2023-04-19] MEDS: THIAMINE 100 MG TAB PO SCH ×2 (09:53→17:16)
[2023-04-19] MEDS: PANTOPRAZOLE 40 MG/10 ML VIAL IVP SCH (09:53)
[2023-04-19] MEDS: predniSONE 5 MG TAB PO SCH (09:54)
[2023-04-19] MEDS: CHLORHEXIDINE GLUCONATE 15 ML CUP MUCOUS MEM SCH ×2 (09:54→21:37)
[2023-04-19] MEDS: NYSTATIN 100,000 UNIT/ML SUSP 500,000 UNIT/5 ML CUP PO SCH ×4 (09:54→21:37)
[2023-04-19] MEDS: FOLIC ACID 1 MG TAB PO SCH (09:54)
[2023-04-19] MEDS: SODIUM BICARBONATE TAB 650 MG TAB PO SCH ×3 (09:54→17:16)
[2023-04-19] MEDS: DARBEPOETIN ALFA 40 MCG/0.4 ML SYRINGE SQ SCH (09:54)
[2023-04-19] MEDS: ASPIRIN 81 MG PO SCH (09:55)
[2023-04-19] MEDS: INSULIN ASPART (NovoLOG) 100 UNIT/ML VIAL SQ SCH ×4 (09:56→20:31)
--- NOTE | 2023-04-19 10:23 | P.PN ---
Subjective Progress Note Date: 04/19/23 72 -year-old female with a past medical history of renal transplant in 2016 currently with ESRD on dialysis TTS, hypertension, dyslipidemia, and insulin- dependent diabetes mellitus. Patient presented to the emergency department via EMS from home with a chief complaint of general weakness and burning with urination. Patient was in rehab at [facility] and was reportedly discharged home with her on Tuesday04/02/23, states that her is disabled and unable to help her very much and she believes she is still too weak to independently care for herself and needs to return to rehab. Patient underwent full evaluation in the emergency department. CBC hemoglobin of 8.9. Coagulation profile PT of 12.8 and INR 1.2. BMP sodium 134, bicarb 21, BUN 13, creatinine 1.87, and GFR of 26. Liver profile unremarkable. Magnesium 1.7. Troponin 0.047 with repeat troponin is 0.043. TSH 1.940. EKG completed showing normal sinus rhythm at 85 bpm with no significant T-wave or ST abnormalities. Patient was initially admitted to [facility] hospitalist group on 04/03/23 at 11:10 PM. We were notified of this admission at 7:49 AM on 04/04/23. During patient's workup, she was noted to develop significant encephalopathy/confusion. Infectious workup demonstrated a blood culture positive for Klebsiella which was pansensitive. Patient was started on Rocephin. ID was consulted and recommended exchange dialysis catheter with tip sent for culture. Catheter was removed on 04/10. Notably, patient's CellCept was discontinued after developing bacteremia, while her Prograf level was noted to be low and therefore Prograf was increased to 3 mg twice a day. Repeat blood cultures have been noted to be negative. HD catheter inserted 04/13 and restarted on HD. She continued to be encephalopathic, CT head was done which was negative, CXR showed chronic findings. 04/18 Patient was noted to be hypoxic last night. She was placed on a non- rebreather. CXR was done which showed bibasilar opacities. Given her altered mentation, decision was made to intubate the patient. Started on SoluCortef 100 mg IV Q8H. Levophed running at 0.5 mcg/kg/min and Vasopressin running at 0.03 units/min. Propofol 15 mcg/kg/min. Antibiotics escalated to Meropenem 500 mg IV Q8H, Vancomycin dosed per pharmacy and Anidulafungin 100 mg IV QD for fungal coverage. 04/19 She was seen and examined in the ICU. Intubated. CBC shows WBC 22.3, Hg 6.9, Plt 75. ABG pH 7.44, pCO2 35. CMP Cl 110, BUN 20, Cr 1.6, glu 130, Ca 7.5, albumin 1.4. Mag 1.4. CXR shows ET tube intact, bibasilar opacities as seen on previous CXRs. Currently on SoluCortef 100 mg IV Q8H. Levophed running at 0.05 mcg/kg/min. Vasopressin weaned off. Propofol 10 mcg/kg/min. Antibiotics includes Meropenem 500 mg IV Q8H, Vancomycin dosed per pharmacy and Anidulafungin 100 mg IV QD for fungal coverage. Echo shows EF 55% with severe septal thickness, mod concentric LVH, severe mitral annular calcification. General: Intubated Derm: warm, dry Head: atraumatic, normocephalic, symmetric, oral thrush Eyes: EOMI, no lid lag, anicteric sclera Cardiovascular: S1S2 tachycardic, no murmur Lungs: Coarse BS bilateral, no rhonchi, no rales, no accessory muscle use Abdominal: soft, nontender to palpation Ext: no gross muscle atrophy, no edema, no contractures Neuro: Unable to determine Psych: Intubated Acute hypoxic respiratory failure Septic shock with recent Klebsiella bacteremia Acute metabolic encephalopathy Renal transplant recipient currently with ESRD on dialysis T//Tue Troponin elevation, chronic and secondary to ESRD and not consistent with acute coronary syndrome Anemia of chronic disease, secondary to chronic kidney disease Wounds to bilateral lower feet Insulin-dependent Diabetes mellitus type 2 with hyperglycemia Folate deficiency Hypertension Dyslipidemia Based on my assessment of this patient, this patient meets a high complexity level of care. Patient has an acute diagnosis of septic shock and acute hypoxic respiratory failure requiring intubation on 04/17. Previously treated for sepsis related to Klebsiella bacteremia with Rocephin with repeat BCx negative and HD catheter tip culture negative. Newly hypoxic on 04/17, possible aspiration. Acute hypoxic respiratory failure: Ventilator support. Septic shock with recent Klebsiella bacteremia: She has been on Rocephin 2g IV QD since 04/08 for treatment of Klebsiella bacteremia. Repeat BCx and HD tip Cx negative since initial positive. Possible aspiration given new hypoxia? Antibiotics escalated to Anidulafungin, Meropenem, and Vancomycin on 04/18. C urrently on multiple pressors including Levophed, Vasopressin and Solucortef. Tacrolimus is discontinued. Echo as above. Repeat BCx, Sputum Cx, Pro-Jesse ordered. Pulmonology and ID on board. Acute metabolic encephalopathy: Likely due to above. CT head done this admission shows no acute changes. Fall precautions. PT and OT on board. Renal transplant recipient currently with ESRD on dialysis T//Sat: Monitor electrolytes. Bicarb 1300 mg PO TID. Continue hemodialysis. Nephrology on board. Troponin elevation, chronic and secondary to ESRD: Not consistent with acute coronary syndrome. ASA 81mg daily. Atorvastatin 10 mg HS. Anemia of chronic disease, secondary to chronic kidney disease Wounds to bilateral lower feet: Wound care consult recommendations appreciated. Insulin-dependent Diabetes mellitus type 2 with hyperglycemia: Started on insulin drip. Accuchecks ACHS. Hypoglycemic precautions. Folate deficiency: Continue folic acid 1mg daily. Hypertension: Amlodipine 5mg daily, carvedilol 25 mg twice daily discontinued on 04/18 due to severe hypotension. Dyslipidemia: Lipitor as above. Heparin SQ for DVT prophylaxis. FULL CODE. I have reviewed the following marketing sales consultant notes: Nephrology, Pulmonology, ID note. I have reviewed the results of the following tests: As above. I have ordered the following tests: As above. I have discussed the care of this patient with the following independent historian: Discussed with RN. I have independently interpreted the following test below: CXR as above. I have discussed the management of this patient with the following physician: This patient meets a high level of care for the following reasons: Patient requires adjustments in insulin which requires intensive monitoring for hypoglycemic episodes. Patient requires vancomycin which requires intensive monitoring for renal toxicity. Patient requires IV vasopressors which requires intensive monitoring of hemodynamics. Patient requires IV anesthetics to be maintained on the ventilator which requires intensive monitoring of hemodynamics and respiratory toxicity. Objective - Vital Signs Vital signs: Vital Signs Temp 96.4 F L 04/19/23 04:00 Pulse 79 04/19/23 07:45 Resp 18 04/19/23 07:45 BP 122/61 04/19/23 07:45 Pulse Ox 99 04/19/23 07:45 FiO2 60 04/19/23 08:06 Intake & Output 04/18/23 04/19/23 04/19/23 18:59 06:59 18:59 Intake Total 4089.332 2224.989 196.028 Output Total 50 15 0 Balance 4039.332 2209.989 196.028 Weight 74.843 kg Intake: IV 3438 1816 156 Meropenem 500 mg In 100 Sodium Chloride 0.9% 100 ml @ 33.3 mls/hr IVPB Q24H [facility] Rx#:[id number] Pressure Bag (0.9 Sodium 48 66 6 Chloride) Sodium Chloride 0.9% 1, 1350 1650 150 000 ml @ 150 mls/hr IV . Q6H40M [facility] Rx#:[id number] Sodium Chloride 0.9% 1, 1040 000 ml @ 20 mls/hr IV . Q24H [facility] Rx#:[id number] Sodium Chloride 0.9% 1, 1000 000 ml @ 999 mls/hr IV . Q1H1M [facility] Rx#:[id number] Intake, IV Titration 551.332 98.989 10.028 Amount Insulin Regular 100 unit 8.116 30.380 1.083 In Sodium Chloride 0.9% 100 ml @ Titrate IV .Q0M [facility] Rx#:[id number] Norepinephrine 32 mg In 39.216 25.495 8.945 Sodium Chloride 0.9% 218 ml @ 0.5 MCG/KG/MIN 17. 541 mls/hr IV .[id number] [facility] Rx#:[id number] Norepinephrine 4 mg In 254 Sodium Chloride 0.9% 250 ml @ 0.03 MCG/KG/MIN 8. 555 mls/hr IV .Q24H [facility] Rx#:[id number] Sodium Chloride 0.9% 1, 150 000 ml @ 150 mls/hr IV . Q6H40M [facility] Rx#:[id number] propofoL 1,000 mg In 100.000 43.114 Empty Bag 1 bag @ 15 MCG/ KG/MIN 6.736 mls/hr IV . [id number] [facility] Rx#:[id number] Tube Feeding 70 250 30 Other 30 60 Output: Urine 50 15 0 Other: Voiding Method Indwelling Catheter Indwelling Catheter # Bowel Movements 1 1 ABP, PAP, CO, CI - Last Documented Arterial Blood Pressure 148/54 - Labs CBC & Chem 7: 04/19/23 04:04 04/19/23 04:04 Labs: Abnormal Lab Results - Last 24 Hours (Table) 04/18/23 04/18/23 04/18/23 Range/Units 04:00 10:50 13:58 WBC (3.8-10.6) k/uL RBC (3.80-5.40) m/uL Hgb (11.4-16.0) gm/dL Hct (34.0-46.0) % MCHC (31.0-37.0) g/dL RDW (11.5-15.5) % Plt Count (150-450) k/uL Neutrophils # (1.3-7.7) k/uL ABG pH 7.46 H (7.35-7.45) ABG pCO2 (35-45) mmHg ABG pO2 63 L (83-108) mmHg ABG Total CO2 26 H (19-24) mmol/L ABG O2 Saturation (94-97) % Chloride (98-107) mmol/L BUN (7-17) mg/dL Creatinine (0.52-1.04) mg/dL Glucose (74-99) mg/dL POC Glucose (mg/dL) 291 H (70-110) mg/dL Calcium (8.4-10.2) mg/dL Magnesium (1.6-2.3) mg/dL Total Protein (6.3-8.2) g/dL Albumin (3.5-5.0) g/dL Procalcitonin 0.41 H (0.02-0.09) ng/mL Crossmatch 04/18/23 04/18/23 04/18/23 Range/Units 15:32 16:41 17:25 WBC (3.8-10.6) k/uL RBC (3.80-5.40) m/uL Hgb (11.4-16.0) gm/dL Hct (34.0-46.0) % MCHC (31.0-37.0) g/dL RDW (11.5-15.5) % Plt Count (150-450) k/uL Neutrophils # (1.3-7.7) k/uL ABG pH (7.35-7.45) ABG pCO2 34 L (35-45) mmHg ABG pO2 179 H (83-108) mmHg ABG Total CO2 (19-24) mmol/L ABG O2 Saturation >100.0 H (94-97) % Chloride (98-107) mmol/L BUN (7-17) mg/dL Creatinine (0.52-1.04) mg/dL Glucose (74-99) mg/dL POC Glucose (mg/dL) 262 H 267 H (70-110) mg/dL Calcium (8.4-10.2) mg/dL Magnesium (1.6-2.3) mg/dL Total Protein (6.3-8.2) g/dL Albumin (3.5-5.0) g/dL Procalcitonin (0.02-0.09) ng/mL Crossmatch 04/18/23 04/18/23 04/18/23 Range/Units 17:39 18:03 18:58 WBC 19.8 H (3.8-10.6) k/uL RBC 2.49 L (3.80-5.40) m/uL Hgb 7.1 L (11.4-16.0) gm/dL Hct 24.5 L (34.0-46.0) % MCHC 28.7 L (31.0-37.0) g/dL RDW 18.8 H (11.5-15.5) % Plt Count 74 L (150-450) k/uL Neutrophils # (1.3-7.7) k/uL ABG pH (7.35-7.45) ABG pCO2 (35-45) mmHg ABG pO2 (83-108) mmHg ABG Total CO2 (19-24) mmol/L ABG O2 Saturation (94-97) % Chloride (98-107) mmol/L BUN (7-17) mg/dL Creatinine (0.52-1.04) mg/dL Glucose (74-99) mg/dL POC Glucose (mg/dL) 226 H 195 H (70-110) mg/dL Calcium (8.4-10.2) mg/dL Magnesium (1.6-2.3) mg/dL Total Protein (6.3-8.2) g/dL Albumin (3.5-5.0) g/dL Procalcitonin (0.02-0.09) ng/mL Crossmatch 04/18/23 04/18/23 04/18/23 Range/Units 19:54 21:06 22:11 WBC (3.8-10.6) k/uL RBC (3.80-5.40) m/uL Hgb (11.4-16.0) gm/dL Hct (34.0-46.0) % MCHC (31.0-37.0) g/dL RDW (11.5-15.5) % Plt Count (150-450) k/uL Neutrophils # (1.3-7.7) k/uL ABG pH (7.35-7.45) ABG pCO2 (35-45) mmHg ABG pO2 (83-108) mmHg ABG Total CO2 (19-24) mmol/L ABG O2 Saturation (94-97) % Chloride (98-107) mmol/L BUN (7-17) mg/dL Creatinine (0.52-1.04) mg/dL Glucose (74-99) mg/dL POC Glucose (mg/dL) 176 H 132 H 157 H (70-110) mg/dL Calcium (8.4-10.2) mg/dL Magnesium (1.6-2.3) mg/dL Total Protein (6.3-8.2) g/dL Albumin (3.5-5.0) g/dL Procalcitonin (0.02-0.09) ng/mL Crossmatch 04/18/23 04/19/23 04/19/23 Range/Units 23:52 00:55 02:02 WBC (3.8-10.6) k/uL RBC (3.80-5.40) m/uL Hgb (11.4-16.0) gm/dL Hct (34.0-46.0) % MCHC (31.0-37.0) g/dL RDW (11.5-15.5) % Plt Count (150-450) k/uL Neutrophils # (1.3-7.7) k/uL ABG pH (7.35-7.45) ABG pCO2 (35-45) mmHg ABG pO2 (83-108) mmHg ABG Total CO2 (19-24) mmol/L ABG O2 Saturation (94-97) % Chloride (98-107) mmol/L BUN (7-17) mg/dL Creatinine (0.52-1.04) mg/dL Glucose (74-99) mg/dL POC Glucose (mg/dL) 201 H 204 H 193 H (70-110) mg/dL Calcium (8.4-10.2) mg/dL Magnesium (1.6-2.3) mg/dL Total Protein (6.3-8.2) g/dL Albumin (3.5-5.0) g/dL Procalcitonin (0.02-0.09) ng/mL Crossmatch 04/19/23 04/19/23 04/19/23 Range/Units 03:16 04:04 04:04 WBC 22.3 H (3.8-10.6) k/uL RBC 2.52 L (3.80-5.40) m/uL Hgb 6.9 L* (11.4-16.0) gm/dL Hct 24.6 L (34.0-46.0) % MCHC 28.1 L (31.0-37.0) g/dL RDW 19.2 H (11.5-15.5) % Plt Count 75 L (150-450) k/uL Neutrophils # 20.8 H (1.3-7.7) k/uL ABG pH (7.35-7.45) ABG pCO2 (35-45) mmHg ABG pO2 (83-108) mmHg ABG Total CO2 (19-24) mmol/L ABG O2 Saturation (94-97) % Chloride (98-107) mmol/L BUN (7-17) mg/dL Creatinine (0.52-1.04) mg/dL Glucose (74-99) mg/dL POC Glucose (mg/dL) 146 H (70-110) mg/dL Calcium (8.4-10.2) mg/dL Magnesium 1.4 L (1.6-2.3) mg/dL Total Protein (6.3-8.2) g/dL Albumin (3.5-5.0) g/dL Procalcitonin (0.02-0.09) ng/mL Crossmatch 04/19/23 04/19/23 04/19/23 Range/Units 04:04 04:06 05:16 WBC (3.8-10.6) k/uL RBC (3.80-5.40) m/uL Hgb (11.4-16.0) gm/dL Hct (34.0-46.0) % MCHC (31.0-37.0) g/dL RDW (11.5-15.5) % Plt Count (150-450) k/uL Neutrophils # (1.3-7.7) k/uL ABG pH (7.35-7.45) ABG pCO2 (35-45) mmHg ABG pO2 (83-108) mmHg ABG Total CO2 (19-24) mmol/L ABG O2 Saturation (94-97) % Chloride 110 H (98-107) mmol/L BUN 20 H (7-17) mg/dL Creatinine 1.60 H (0.52-1.04) mg/dL Glucose 130 H (74-99) mg/dL POC Glucose (mg/dL) 139 H 162 H (70-110) mg/dL Calcium 7.5 L (8.4-10.2) mg/dL Magnesium (1.6-2.3) mg/dL Total Protein 3.4 L (6.3-8.2) g/dL Albumin 1.4 L (3.5-5.0) g/dL Procalcitonin (0.02-0.09) ng/mL Crossmatch 04/19/23 04/19/23 04/19/23 Range/Units 05:40 06:08 06:26 WBC (3.8-10.6) k/uL RBC (3.80-5.40) m/uL Hgb (11.4-16.0) gm/dL Hct (34.0-46.0) % MCHC (31.0-37.0) g/dL RDW (11.5-15.5) % Plt Count (150-450) k/uL Neutrophils # (1.3-7.7) k/uL ABG pH (7.35-7.45) ABG pCO2 (35-45) mmHg ABG pO2 146 H (83-108) mmHg ABG Total CO2 25 H (19-24) mmol/L ABG O2 Saturation 99.6 H (94-97) % Chloride (98-107) mmol/L BUN (7-17) mg/dL Creatinine (0.52-1.04) mg/dL Glucose (74-99) mg/dL POC Glucose (mg/dL) 192 H (70-110) mg/dL Calcium (8.4-10.2) mg/dL Magnesium (1.6-2.3) mg/dL Total Protein (6.3-8.2) g/dL Albumin (3.5-5.0) g/dL Procalcitonin (0.02-0.09) ng/mL Crossmatch See Detail 04/19/23 Range/Units 06:58 WBC (3.8-10.6) k/uL RBC (3.80-5.40) m/uL Hgb (11.4-16.0) gm/dL Hct (34.0-46.0) % MCHC (31.0-37.0) g/dL RDW (11.5-15.5) % Plt Count (150-450) k/uL Neutrophils # (1.3-7.7) k/uL ABG pH (7.35-7.45) ABG pCO2 (35-45) mmHg ABG pO2 (83-108) mmHg ABG Total CO2 (19-24) mmol/L ABG O2 Saturation (94-97) % Chloride (98-107) mmol/L BUN (7-17) mg/dL Creatinine (0.52-1.04) mg/dL Glucose (74-99) mg/dL POC Glucose (mg/dL) 191 H (70-110) mg/dL Calcium (8.4-10.2) mg/dL Magnesium (1.6-2.3) mg/dL Total Protein (6.3-8.2) g/dL Albumin (3.5-5.0) g/dL Procalcitonin (0.02-0.09) ng/mL Crossmatch Microbiology - Last 24 Hours (Table) 04/16/23 13:53 Blood Culture - Preliminary Blood 04/17/23 21:45 Gram Stain - Preliminary Sputum
--- NOTE | 2023-04-19 11:09 | IR ---
EXAMINATION TYPE: IR cvc insert central tunneled DATE OF EXAM: 04/13/2023 COMPARISON: NONE HISTORY: Fluoroscopy time. Fluoroscopy was provided to the referring clinician.
[2023-04-19 12:03] LABS: Glucose,Whole Blood 207 mg/dL (70-110)
[2023-04-19] MEDS: VASOPRESSIN 60 UNIT in SODIUM CHLORIDE 0.9% 150 ML IV SCH (12:30)
[2023-04-19] MEDS ORDERED: POTASSIUM BICARBONATE/CIT AC 20 MEQ TABLET.EFF PO ONE (12:34)
[2023-04-19] MEDS: SODIUM CHLORIDE 0.9% 1,000 ML IV SCH ×2 (12:37→17:27)
[2023-04-19] MEDS: NOREPINEPHRINE 32 MG in SODIUM CHLORIDE 0.9% 218 ML IV SCH (12:37)
[2023-04-19] MEDS: MAGNESIUM SULFATE-D5W PMX 1 GM in DEXTROSE/WATER 1 100ML.BAG IVPB SCH ×2 (12:40→13:41)
--- NOTE | 2023-04-19 13:34 | P.PN ---
Subjective Patient is seen in follow-up for end-stage renal disease. She is maintained on hemodialysis on Tuesday schedule. Currently on Levophed. Vasopressin stopped this morning. On IV hydration. Receiving tube feeds. Vital signs - On vasopressor support. General: Resting in bed. HEENT: Intubated. LUNGS: Scattered rhonchi. HEART: Rate and Rhythm are regular. ABDOMEN: No distention. EXTREMITITES: No edema. Objective - Vital Signs Vital signs: Vital Signs Temp 99.3 F 04/19/23 12:00 Pulse 84 04/19/23 12:30 Resp 24 04/19/23 12:30 BP 100/57 04/19/23 12:30 Pulse Ox 100 04/19/23 12:30 FiO2 60 04/19/23 11:49 Intake & Output 04/18/23 04/19/23 04/19/23 18:59 06:59 18:59 Intake Total 4089.332 2224.989 695.096 Output Total 50 15 0 Balance 4039.332 2209.989 695.096 Weight 74.843 kg 74.843 kg Intake: IV 3438 1816 480 Meropenem 500 mg In 100 Sodium Chloride 0.9% 100 ml @ 33.3 mls/hr IVPB Q24H [facility] Rx#:[id number] Pressure Bag (0.9 Sodium 48 66 30 Chloride) Sodium Chloride 0.9% 1, 1040 000 ml @ 20 mls/hr IV . Q24H [facility] Rx#:[id number] Sodium Chloride 0.9% 1, 1350 1650 450 000 ml @ 50 mls/hr IV . Q20H [facility] Rx#:[id number] Sodium Chloride 0.9% 1, 1000 000 ml @ 999 mls/hr IV . Q1H1M [facility] Rx#:[id number] Intake, IV Titration 551.332 98.989 14.096 Amount Insulin Regular 100 unit 8.116 30.380 1.083 In Sodium Chloride 0.9% 100 ml @ Titrate IV .Q0M [facility] Rx#:[id number] Norepinephrine 32 mg In 39.216 25.495 13.013 Sodium Chloride 0.9% 218 ml @ 0.5 MCG/KG/MIN 17. 541 mls/hr IV .[id number] [facility] Rx#:[id number] Norepinephrine 4 mg In 254 Sodium Chloride 0.9% 250 ml @ 0.03 MCG/KG/MIN 8. 555 mls/hr IV .Q24H [facility] Rx#:[id number] Sodium Chloride 0.9% 1, 150 000 ml @ 50 mls/hr IV . Q20H [facility] Rx#:[id number] propofoL 1,000 mg In 100.000 43.114 Empty Bag 1 bag @ 15 MCG/ KG/MIN 6.736 mls/hr IV . [id number] [facility] Rx#:[id number] Tube Feeding 70 250 171 Blood Product 0 Rc As-1 Unit 0 [id number] Other 30 60 30 Output: Urine 50 15 0 Other: Voiding Method Indwelling Catheter Indwelling Catheter Indwelling Catheter # Bowel Movements 1 1 ABP, PAP, CO, CI - Last Documented Arterial Blood Pressure 139/42 - Labs CBC & Chem 7: 04/19/23 04:04 04/19/23 04:04 Labs: Abnormal Lab Results - Last 24 Hours (Table) 04/18/23 04/18/23 04/18/23 Range/Units 13:58 15:32 16:41 WBC (3.8-10.6) k/uL RBC (3.80-5.40) m/uL Hgb (11.4-16.0) gm/dL Hct (34.0-46.0) % MCHC (31.0-37.0) g/dL RDW (11.5-15.5) % Plt Count (150-450) k/uL Neutrophils # (1.3-7.7) k/uL ABG pCO2 (35-45) mmHg ABG pO2 (83-108) mmHg ABG Total CO2 (19-24) mmol/L ABG O2 Saturation (94-97) % Chloride (98-107) mmol/L BUN (7-17) mg/dL Creatinine (0.52-1.04) mg/dL Glucose (74-99) mg/dL POC Glucose (mg/dL) 291 H 262 H 267 H (70-110) mg/dL Calcium (8.4-10.2) mg/dL Magnesium (1.6-2.3) mg/dL Total Protein (6.3-8.2) g/dL Albumin (3.5-5.0) g/dL Crossmatch 04/18/23 04/18/23 04/18/23 Range/Units 17:25 17:39 18:03 WBC 19.8 H (3.8-10.6) k/uL RBC 2.49 L (3.80-5.40) m/uL Hgb 7.1 L (11.4-16.0) gm/dL Hct 24.5 L (34.0-46.0) % MCHC 28.7 L (31.0-37.0) g/dL RDW 18.8 H (11.5-15.5) % Plt Count 74 L (150-450) k/uL Neutrophils # (1.3-7.7) k/uL ABG pCO2 34 L (35-45) mmHg ABG pO2 179 H (83-108) mmHg ABG Total CO2 (19-24) mmol/L ABG O2 Saturation >100.0 H (94-97) % Chloride (98-107) mmol/L BUN (7-17) mg/dL Creatinine (0.52-1.04) mg/dL Glucose (74-99) mg/dL POC Glucose (mg/dL) 226 H (70-110) mg/dL Calcium (8.4-10.2) mg/dL Magnesium (1.6-2.3) mg/dL Total Protein (6.3-8.2) g/dL Albumin (3.5-5.0) g/dL Crossmatch 04/18/23 04/18/23 04/18/23 Range/Units 18:58 19:54 21:06 WBC (3.8-10.6) k/uL RBC (3.80-5.40) m/uL Hgb (11.4-16.0) gm/dL Hct (34.0-46.0) % MCHC (31.0-37.0) g/dL RDW (11.5-15.5) % Plt Count (150-450) k/uL Neutrophils # (1.3-7.7) k/uL ABG pCO2 (35-45) mmHg ABG pO2 (83-108) mmHg ABG Total CO2 (19-24) mmol/L ABG O2 Saturation (94-97) % Chloride (98-107) mmol/L BUN (7-17) mg/dL Creatinine (0.52-1.04) mg/dL Glucose (74-99) mg/dL POC Glucose (mg/dL) 195 H 176 H 132 H (70-110) mg/dL Calcium (8.4-10.2) mg/dL Magnesium (1.6-2.3) mg/dL Total Protein (6.3-8.2) g/dL Albumin (3.5-5.0) g/dL Crossmatch 04/18/23 04/18/23 04/19/23 Range/Units 22:11 23:52 00:55 WBC (3.8-10.6) k/uL RBC (3.80-5.40) m/uL Hgb (11.4-16.0) gm/dL Hct (34.0-46.0) % MCHC (31.0-37.0) g/dL RDW (11.5-15.5) % Plt Count (150-450) k/uL Neutrophils # (1.3-7.7) k/uL ABG pCO2 (35-45) mmHg ABG pO2 (83-108) mmHg ABG Total CO2 (19-24) mmol/L ABG O2 Saturation (94-97) % Chloride (98-107) mmol/L BUN (7-17) mg/dL Creatinine (0.52-1.04) mg/dL Glucose (74-99) mg/dL POC Glucose (mg/dL) 157 H 201 H 204 H (70-110) mg/dL Calcium (8.4-10.2) mg/dL Magnesium (1.6-2.3) mg/dL Total Protein (6.3-8.2) g/dL Albumin (3.5-5.0) g/dL Crossmatch 04/19/23 04/19/23 04/19/23 Range/Units 02:02 03:16 04:04 WBC (3.8-10.6) k/uL RBC (3.80-5.40) m/uL Hgb (11.4-16.0) gm/dL Hct (34.0-46.0) % MCHC (31.0-37.0) g/dL RDW (11.5-15.5) % Plt Count (150-450) k/uL Neutrophils # (1.3-7.7) k/uL ABG pCO2 (35-45) mmHg ABG pO2 (83-108) mmHg ABG Total CO2 (19-24) mmol/L ABG O2 Saturation (94-97) % Chloride (98-107) mmol/L BUN (7-17) mg/dL Creatinine (0.52-1.04) mg/dL Glucose (74-99) mg/dL POC Glucose (mg/dL) 193 H 146 H (70-110) mg/dL Calcium (8.4-10.2) mg/dL Magnesium 1.4 L (1.6-2.3) mg/dL Total Protein (6.3-8.2) g/dL Albumin (3.5-5.0) g/dL Crossmatch 04/19/23 04/19/23 04/19/23 Range/Units 04:04 04:04 04:06 WBC 22.3 H (3.8-10.6) k/uL RBC 2.52 L (3.80-5.40) m/uL Hgb 6.9 L* (11.4-16.0) gm/dL Hct 24.6 L (34.0-46.0) % MCHC 28.1 L (31.0-37.0) g/dL RDW 19.2 H (11.5-15.5) % Plt Count 75 L (150-450) k/uL Neutrophils # 20.8 H (1.3-7.7) k/uL ABG pCO2 (35-45) mmHg ABG pO2 (83-108) mmHg ABG Total CO2 (19-24) mmol/L ABG O2 Saturation (94-97) % Chloride 110 H (98-107) mmol/L BUN 20 H (7-17) mg/dL Creatinine 1.60 H (0.52-1.04) mg/dL Glucose 130 H (74-99) mg/dL POC Glucose (mg/dL) 139 H (70-110) mg/dL Calcium 7.5 L (8.4-10.2) mg/dL Magnesium (1.6-2.3) mg/dL Total Protein 3.4 L (6.3-8.2) g/dL Albumin 1.4 L (3.5-5.0) g/dL Crossmatch 04/19/23 04/19/23 04/19/23 Range/Units 05:16 05:40 06:08 WBC (3.8-10.6) k/uL RBC (3.80-5.40) m/uL Hgb (11.4-16.0) gm/dL Hct (34.0-46.0) % MCHC (31.0-37.0) g/dL RDW (11.5-15.5) % Plt Count (150-450) k/uL Neutrophils # (1.3-7.7) k/uL ABG pCO2 (35-45) mmHg ABG pO2 146 H (83-108) mmHg ABG Total CO2 25 H (19-24) mmol/L ABG O2 Saturation 99.6 H (94-97) % Chloride (98-107) mmol/L BUN (7-17) mg/dL Creatinine (0.52-1.04) mg/dL Glucose (74-99) mg/dL POC Glucose (mg/dL) 162 H 192 H (70-110) mg/dL Calcium (8.4-10.2) mg/dL Magnesium (1.6-2.3) mg/dL Total Protein (6.3-8.2) g/dL Albumin (3.5-5.0) g/dL Crossmatch 04/19/23 04/19/23 04/19/23 Range/Units 06:26 06:58 09:45 WBC (3.8-10.6) k/uL RBC (3.80-5.40) m/uL Hgb (11.4-16.0) gm/dL Hct (34.0-46.0) % MCHC (31.0-37.0) g/dL RDW (11.5-15.5) % Plt Count (150-450) k/uL Neutrophils # (1.3-7.7) k/uL ABG pCO2 (35-45) mmHg ABG pO2 (83-108) mmHg ABG Total CO2 (19-24) mmol/L ABG O2 Saturation (94-97) % Chloride (98-107) mmol/L BUN (7-17) mg/dL Creatinine (0.52-1.04) mg/dL Glucose (74-99) mg/dL POC Glucose (mg/dL) 191 H 167 H (70-110) mg/dL Calcium (8.4-10.2) mg/dL Magnesium (1.6-2.3) mg/dL Total Protein (6.3-8.2) g/dL Albumin (3.5-5.0) g/dL Crossmatch See Detail 04/19/23 Range/Units 12:02 WBC (3.8-10.6) k/uL RBC (3.80-5.40) m/uL Hgb (11.4-16.0) gm/dL Hct (34.0-46.0) % MCHC (31.0-37.0) g/dL RDW (11.5-15.5) % Plt Count (150-450) k/uL Neutrophils # (1.3-7.7) k/uL ABG pCO2 (35-45) mmHg ABG pO2 (83-108) mmHg ABG Total CO2 (19-24) mmol/L ABG O2 Saturation (94-97) % Chloride (98-107) mmol/L BUN (7-17) mg/dL Creatinine (0.52-1.04) mg/dL Glucose (74-99) mg/dL POC Glucose (mg/dL) 207 H (70-110) mg/dL Calcium (8.4-10.2) mg/dL Magnesium (1.6-2.3) mg/dL Total Protein (6.3-8.2) g/dL Albumin (3.5-5.0) g/dL Crossmatch Microbiology - Last 24 Hours (Table) 04/16/23 13:53 Blood Culture - Preliminary Blood 04/17/23 21:45 Gram Stain - Preliminary Sputum Assessment and Plan Plan: Assessment: 1. End-stage renal disease maintained on hemodialysis Tuesday schedule. Femoral dialysis catheter was placed 04/13/2023. 2. Status post donor renal transplant in 2015. 3. Chronic systolic CHF ejection fraction of 40% with mild to moderate mitral regurgitation and moderate tricuspid regurgitation. 4. Volume overload. Improved. 5. Anemia of chronic kidney disease. On Aranesp. Receiving unit of blood today. 6. Metabolic acidosis secondary to chronic kidney disease. On oral bicarb. Improved postdialysis. 7. Septic shock on antibiotics and vasopressor support. Blood culture positive for Klebsiella 04/07/2023 - permacath was removed and temporary dialysis ca theter was placed in the groin 04/13/2023. 8. Hypomagnesemia from poor intake. Being replaced. Plan: Currently seen while undergoing hemodialysis. Wean FiO2 and vasopressors. Follow-up repeat cultures. Prograf and CellCept held since 04/18/2023. On high-dose IV steroids. Patient will need permanent dialysis access once hemodynamically stable and cleared by ID.
--- NOTE | 2023-04-19 13:39 | P.PN ---
Subjective Progress Note Date: 04/19/23 Principal diagnosis: Bacteremia Patient is a 72-year-old -[place] female with a comorbidities including diabetes mellitus hypertension hyperlipidemia end-stage renal disease on hemodialysis Tuesday via permacath patient presenting to the hospital with concerns for unable to care of self at home, patient did have blood cultures came back positive with gram-negative bacilli concerning for possible dialysis catheter infection. Dialysis catheter was removed 04/10/2023, the patient did have a new dialysis catheter placement on 04/13/2023, patient did have an episode of respiratory arrest night of 04/17/2023 requiring transfer to the ICU and intubation On today's evaluation that is 04/19/2023, the patient did have a low-grade fever of 99.3F this morning, the patient is intubated on the vent currently appetite was down to 60%, no significant purulent secretions through the ET reported by the nursing staff the patient is requiring less amount of pressor support to maintain her blood pressure White count is slightly up to 22.3, creatinine is 1.60, blood and sputum cultures has been repeated and those are pending Objective - Vital Signs Vital signs: Vital Signs Temp 99.3 F 04/19/23 12:00 Pulse 84 04/19/23 12:30 Resp 24 04/19/23 12:30 BP 100/57 04/19/23 12:30 Pulse Ox 100 04/19/23 12:30 FiO2 60 04/19/23 11:49 Intake & Output 04/18/23 04/19/23 04/19/23 18:59 06:59 18:59 Intake Total 4089.332 2224.989 695.096 Output Total 50 15 0 Balance 4039.332 2209.989 695.096 Weight 74.843 kg 74.843 kg Intake: IV 3439 0862 480 Meropenem 500 mg In 100 Sodium Chloride 0.9% 100 ml @ 33.3 mls/hr IVPB Q24H [facility] Rx#:[id number] Pressure Bag (0.9 Sodium 48 66 30 Chloride) Sodium Chloride 0.9% 1, 1040 000 ml @ 20 mls/hr IV . Q24H [facility] Rx#:[id number] Sodium Chloride 0.9% 1, 1350 1650 450 000 ml @ 50 mls/hr IV . Q20H [facility] Rx#:[id number] Sodium Chloride 0.9% 1, 1000 000 ml @ 999 mls/hr IV . Q1H1M [facility] Rx#:[id number] Intake, IV Titration 551.332 98.989 14.096 Amount Insulin Regular 100 unit 8.116 30.380 1.083 In Sodium Chloride 0.9% 100 ml @ Titrate IV .Q0M [facility] Rx#:[id number] Norepinephrine 32 mg In 39.216 25.495 13.013 Sodium Chloride 0.9% 218 ml @ 0.5 MCG/KG/MIN 17. 541 mls/hr IV .[id number] [facility] Rx#:[id number] Norepinephrine 4 mg In 254 Sodium Chloride 0.9% 250 ml @ 0.03 MCG/KG/MIN 8. 555 mls/hr IV .Q24H [facility] Rx#:[id number] Sodium Chloride 0.9% 1, 150 000 ml @ 50 mls/hr IV . Q20H [facility] Rx#:[id number] propofoL 1,000 mg In 100.000 43.114 Empty Bag 1 bag @ 15 MCG/ KG/MIN 6.736 mls/hr IV . [id number] [facility] Rx#:[id number] Tube Feeding 70 250 171 Blood Product 0 Rc As-1 Unit 0 [id number] Other 30 60 30 Output: Urine 50 15 0 Other: Voiding Method Indwelling Catheter Indwelling Catheter Indwelling Catheter # Bowel Movements 1 1 ABP, PAP, CO, CI - Last Documented Arterial Blood Pressure 139/42 - Exam GENERAL DESCRIPTION: Elderly female intubated on the vent RESPIRATORY SYSTEM: Unlabored breathing , decreased breath sounds at bases HEART: S1 S2 regular rate and rhythm ABDOMEN: Soft , no tenderness EXTREMITIES: Heel pressure ulcer unstageable but no redness - Labs CBC & Chem 7: 04/19/23 04:04 04/19/23 04:04 Labs: Abnormal Lab Results - Last 24 Hours (Table) 04/18/23 04/18/23 04/18/23 Range/Units 13:58 15:32 16:41 WBC (3.8-10.6) k/uL RBC (3.80-5.40) m/uL Hgb (11.4-16.0) gm/dL Hct (34.0-46.0) % MCHC (31.0-37.0) g/dL RDW (11.5-15.5) % Plt Count (150-450) k/uL Neutrophils # (1.3-7.7) k/uL ABG pCO2 (35-45) mmHg ABG pO2 (83-108) mmHg ABG Total CO2 (19-24) mmol/L ABG O2 Saturation (94-97) % Chloride (98-107) mmol/L BUN (7-17) mg/dL Creatinine (0.52-1.04) mg/dL Glucose (74-99) mg/dL POC Glucose (mg/dL) 291 H 262 H 267 H (70-110) mg/dL Calcium (8.4-10.2) mg/dL Magnesium (1.6-2.3) mg/dL Total Protein (6.3-8.2) g/dL Albumin (3.5-5.0) g/dL Crossmatch 04/18/23 04/18/23 04/18/23 Range/Units 17:25 17:39 18:03 WBC 19.8 H (3.8-10.6) k/uL RBC 2.49 L (3.80-5.40) m/uL Hgb 7.1 L (11.4-16.0) gm/dL Hct 24.5 L (34.0-46.0) % MCHC 28.7 L (31.0-37.0) g/dL RDW 18.8 H (11.5-15.5) % Plt Count 74 L (150-450) k/uL Neutrophils # (1.3-7.7) k/uL ABG pCO2 34 L (35-45) mmHg ABG pO2 179 H (83-108) mmHg ABG Total CO2 (19-24) mmol/L ABG O2 Saturation >100.0 H (94-97) % Chloride (98-107) mmol/L BUN (7-17) mg/dL Creatinine (0.52-1.04) mg/dL Glucose (74-99) mg/dL POC Glucose (mg/dL) 226 H (70-110) mg/dL Calcium (8.4-10.2) mg/dL Magnesium (1.6-2.3) mg/dL Total Protein (6.3-8.2) g/dL Albumin (3.5-5.0) g/dL Crossmatch 04/18/23 04/18/23 04/18/23 Range/Units 18:58 19:54 21:06 WBC (3.8-10.6) k/uL RBC (3.80-5.40) m/uL Hgb (11.4-16.0) gm/dL Hct (34.0-46.0) % MCHC (31.0-37.0) g/dL RDW (11.5-15.5) % Plt Count (150-450) k/uL Neutrophils # (1.3-7.7) k/uL ABG pCO2 (35-45) mmHg ABG pO2 (83-108) mmHg ABG Total CO2 (19-24) mmol/L ABG O2 Saturation (94-97) % Chloride (98-107) mmol/L BUN (7-17) mg/dL Creatinine (0.52-1.04) mg/dL Glucose (74-99) mg/dL POC Glucose (mg/dL) 195 H 176 H 132 H (70-110) mg/dL Calcium (8.4-10.2) mg/dL Magnesium (1.6-2.3) mg/dL Total Protein (6.3-8.2) g/dL Albumin (3.5-5.0) g/dL Crossmatch 04/18/23 04/18/23 04/19/23 Range/Units 22:11 23:52 00:55 WBC (3.8-10.6) k/uL RBC (3.80-5.40) m/uL Hgb (11.4-16.0) gm/dL Hct (34.0-46.0) % MCHC (31.0-37.0) g/dL RDW (11.5-15.5) % Plt Count (150-450) k/uL Neutrophils # (1.3-7.7) k/uL ABG pCO2 (35-45) mmHg ABG pO2 (83-108) mmHg ABG Total CO2 (19-24) mmol/L ABG O2 Saturation (94-97) % Chloride (98-107) mmol/L BUN (7-17) mg/dL Creatinine (0.52-1.04) mg/dL Glucose (74-99) mg/dL POC Glucose (mg/dL) 157 H 201 H 204 H (70-110) mg/dL Calcium (8.4-10.2) mg/dL Magnesium (1.6-2.3) mg/dL Total Protein (6.3-8.2) g/dL Albumin (3.5-5.0) g/dL Crossmatch 04/19/23 04/19/23 04/19/23 Range/Units 02:02 03:16 04:04 WBC (3.8-10.6) k/uL RBC (3.80-5.40) m/uL Hgb (11.4-16.0) gm/dL Hct (34.0-46.0) % MCHC (31.0-37.0) g/dL RDW (11.5-15.5) % Plt Count (150-450) k/uL Neutrophils # (1.3-7.7) k/uL ABG pCO2 (35-45) mmHg ABG pO2 (83-108) mmHg ABG Total CO2 (19-24) mmol/L ABG O2 Saturation (94-97) % Chloride (98-107) mmol/L BUN (7-17) mg/dL Creatinine (0.52-1.04) mg/dL Glucose (74-99) mg/dL POC Glucose (mg/dL) 193 H 146 H (70-110) mg/dL Calcium (8.4-10.2) mg/dL Magnesium 1.4 L (1.6-2.3) mg/dL Total Protein (6.3-8.2) g/dL Albumin (3.5-5.0) g/dL Crossmatch 04/19/23 04/19/23 04/19/23 Range/Units 04:04 04:04 04:06 WBC 22.3 H (3.8-10.6) k/uL RBC 2.52 L (3.80-5.40) m/uL Hgb 6.9 L* (11.4-16.0) gm/dL Hct 24.6 L (34.0-46.0) % MCHC 28.1 L (31.0-37.0) g/dL RDW 19.2 H (11.5-15.5) % Plt Count 75 L (150-450) k/uL Neutrophils # 20.8 H (1.3-7.7) k/uL ABG pCO2 (35-45) mmHg ABG pO2 (83-108) mmHg ABG Total CO2 (19-24) mmol/L ABG O2 Saturation (94-97) % Chloride 110 H (98-107) mmol/L BUN 20 H (7-17) mg/dL Creatinine 1.60 H (0.52-1.04) mg/dL Glucose 130 H (74-99) mg/dL POC Glucose (mg/dL) 139 H (70-110) mg/dL Calcium 7.5 L (8.4-10.2) mg/dL Magnesium (1.6-2.3) mg/dL Total Protein 3.4 L (6.3-8.2) g/dL Albumin 1.4 L (3.5-5.0) g/dL Crossmatch 04/19/23 04/19/23 04/19/23 Range/Units 05:16 05:40 06:08 WBC (3.8-10.6) k/uL RBC (3.80-5.40) m/uL Hgb (11.4-16.0) gm/dL Hct (34.0-46.0) % MCHC (31.0-37.0) g/dL RDW (11.5-15.5) % Plt Count (150-450) k/uL Neutrophils # (1.3-7.7) k/uL ABG pCO2 (35-45) mmHg ABG pO2 146 H (83-108) mmHg ABG Total CO2 25 H (19-24) mmol/L ABG O2 Saturation 99.6 H (94-97) % Chloride (98-107) mmol/L BUN (7-17) mg/dL Creatinine (0.52-1.04) mg/dL Glucose (74-99) mg/dL POC Glucose (mg/dL) 162 H 192 H (70-110) mg/dL Calcium (8.4-10.2) mg/dL Magnesium (1.6-2.3) mg/dL Total Protein (6.3-8.2) g/dL Albumin (3.5-5.0) g/dL Crossmatch 04/19/23 04/19/23 04/19/23 Range/Units 06:26 06:58 09:45 WBC (3.8-10.6) k/uL RBC (3.80-5.40) m/uL Hgb (11.4-16.0) gm/dL Hct (34.0-46.0) % MCHC (31.0-37.0) g/dL RDW (11.5-15.5) % Plt Count (150-450) k/uL Neutrophils # (1.3-7.7) k/uL ABG pCO2 (35-45) mmHg ABG pO2 (83-108) mmHg ABG Total CO2 (19-24) mmol/L ABG O2 Saturation (94-97) % Chloride (98-107) mmol/L BUN (7-17) mg/dL Creatinine (0.52-1.04) mg/dL Glucose (74-99) mg/dL POC Glucose (mg/dL) 191 H 167 H (70-110) mg/dL Calcium (8.4-10.2) mg/dL Magnesium (1.6-2.3) mg/dL Total Protein (6.3-8.2) g/dL Albumin (3.5-5.0) g/dL Crossmatch See Detail 04/19/23 Range/Units 12:02 WBC (3.8-10.6) k/uL RBC (3.80-5.40) m/uL Hgb (11.4-16.0) gm/dL Hct (34.0-46.0) % MCHC (31.0-37.0) g/dL RDW (11.5-15.5) % Plt Count (150-450) k/uL Neutrophils # (1.3-7.7) k/uL ABG pCO2 (35-45) mmHg ABG pO2 (83-108) mmHg ABG Total CO2 (19-24) mmol/L ABG O2 Saturation (94-97) % Chloride (98-107) mmol/L BUN (7-17) mg/dL Creatinine (0.52-1.04) mg/dL Glucose (74-99) mg/dL POC Glucose (mg/dL) 207 H (70-110) mg/dL Calcium (8.4-10.2) mg/dL Magnesium (1.6-2.3) mg/dL Total Protein (6.3-8.2) g/dL Albumin (3.5-5.0) g/dL Crossmatch Microbiology - Last 24 Hours (Table) 04/16/23 13:53 Blood Culture - Preliminary Blood 04/17/23 21:45 Gram Stain - Preliminary Sputum Assessment and Plan (1) Bacteremia Current Visit: Yes Status: Acute Code(s): R78.81 - BACTEREMIA SNOMED Code(s): 5123184 (2) Unstageable pressure ulcer of left heel Current Visit: Yes Status: Acute Code(s): L89.620 - PRESSURE ULCER OF LEFT HEEL, UNSTAGEABLE SNOMED Code(s): 01175600208176475 Plan: 1-Patient with gram-negative bacteremia high clinical suspicion for possible permacatheter infection in this patient with no evidence of any abdominal tenderness on Examination and urine has been negative patient did have bilateral heel pressure ulcer with some necrotic tissue but no significant redness or foul-smelling drainage was noticed 2-patient did have significant change in her clinical condition, patient went into respiratory distress requiring intubation and transferred to the ICU, blood and sputum cultures have been obtained which are currently pending. 3- patient will continue with meropenem and vancomycin while waiting for repeat cultures to finalize Dictation was produced using [employer] dictation software. please excuse any grammatical, word or spelling errors. Time with Patient: Less than 30
[2023-04-19 14:11] LABS: Anisocytosis Slight; HCT 29.5 % (34.0-46.0); HGB 9.1 gm/dL (11.4-16.0); Hypochromasia Marked; MCH 28.9 pg (25.0-35.0); MCHC 30.7 g/dL (31.0-37.0); MCV 93.9 fL (80.0-100.0); Macrocytosis Slight; Mean Platelet Volume 10.9; Poikilocytosis Moderate; RBC 3.14 m/uL (3.80-5.40); RDW 18.3 % (11.5-15.5); WBC 29.9 k/uL (3.8-10.6)
[2023-04-19 14:49] LABS: Platelet Count 81 k/uL (150-450)
[2023-04-19 15:35] LABS: Neutrophils # (M) 28.41 k/uL (1.3-7.7); Neutrophils % (M) 95 %; Nucleated Red Blood Cells 0 /100 WBC (0-0); Target Cells Present; Tear Drop Cells Present; Total Cells Counted 100
[2023-04-19 15:48] LABS: Glucose,Whole Blood 162 mg/dL (70-110)
[2023-04-19 20:08] LABS: Glucose,Whole Blood 182 mg/dL (70-110)
[2023-04-19] MEDS: MEROPENEM 500 MG in SODIUM CHLORIDE 0.9% 100 ML IVPB SCH (20:25)
[2023-04-19] MEDS: ATORVASTATIN 10 MG TAB PO SCH (21:38)
[2023-04-20 00:11] LABS: Glucose,Whole Blood 207 mg/dL (70-110)
[2023-04-20] MEDS: INSULIN ASPART (NovoLOG) 100 UNIT/ML VIAL SQ SCH ×9 (00:53→20:02)
[2023-04-20] MEDS: HYDROCORTISONE SUCCINATE 100 MG/2 ML VIAL IV SCH ×4 (00:53→23:49)
[2023-04-20 04:28] LABS: Glucose,Whole Blood 388 mg/dL (70-110)
[2023-04-20 05:11] LABS: Anisocytosis Slight; Basophils % (A) 0 %; Eosinophils % (A) 0 %; HCT 28.7 % (34.0-46.0); HGB 8.8 gm/dL (11.4-16.0); Hypochromasia Marked; Lymphocytes # (A) 0.6 k/uL (1.0-4.8); Lymphocytes % (A) 2 %; MCH 28.7 pg (25.0-35.0); MCHC 30.8 g/dL (31.0-37.0); MCV 93.1 fL (80.0-100.0); Mean Platelet Volume 11.6; Monocytes # (A) 0.4 k/uL (0-1.0); Monocytes % (A) 2 %; Neutrophils # (A) 26.2 k/uL (1.3-7.7); Neutrophils % (A) 96 %; Platelet Count 74 k/uL (150-450); Poikilocytosis Moderate; RBC 3.08 m/uL (3.80-5.40); RDW 18.2 % (11.5-15.5); WBC 27.3 k/uL (3.8-10.6)
[2023-04-20] MEDS: NOREPINEPHRINE 32 MG in SODIUM CHLORIDE 0.9% 218 ML IV SCH ×2 (05:32→18:06)
[2023-04-20 05:43] LABS: African American GFR (CKD) 43 (>60 ml/min/1.73 sqM); Anion Gap 6 mmol/L; Blood Urea Nitrogen 22 mg/dL (7-17); Calcium 7.7 mg/dL (8.4-10.2); Carbon Dioxide 23 mmol/L (22-30); Chloride 106 mmol/L (98-107); Glucose 329 mg/dL (74-99); Non-African American GFR(CKD) 38 (>60 ml/min/1.73 sqM); Potassium 3.6 mmol/L (3.5-5.1); Sodium 135 mmol/L (137-145)
[2023-04-20 05:48] LABS: ABG HCO3 25 mmol/L (21-25); ABG PCO2 33 mmHg (35-45); ABG PO2 169 mmHg (83-108); ABG TCO2 26 mmol/L (19-24); Allen Test Performed? Yes
[2023-04-20 05:48] LABS: Vancomycin,Random 13.5 ug/mL
[2023-04-20] MEDS: INSULIN DETEMIR (LEVEMIR) 100 UNIT/ML SYR SQ SCH (06:45)
--- NOTE | 2023-04-20 07:31 | XR ---
EXAMINATION TYPE: XR chest 1V portable DATE OF EXAM: 04/20/2023 COMPARISON: 04/19/2023 INDICATION: Tube placement TECHNIQUE: Single frontal view of the chest is obtained. FINDINGS: The heart size is normal. The pulmonary vasculature is normal. Mild bibasilar infiltrates are present. Minimal pleural effusions are likely present. Endotracheal tube tip is above the yevgeniy. Nasogastric tube transverses the thorax. Right central radhames ous catheter tip is in the right atrium. Findings appear stable. IMPRESSION: 1. Small bilateral lung base infiltrates likely on the basis of atelectasis. Some minimal bilateral p leural effusions are present. 2. Lines and catheters discussed above
[2023-04-20 08:22] LABS: Glucose,Whole Blood 340 mg/dL (70-110)
[2023-04-20] MEDS: CHLORHEXIDINE GLUCONATE 15 ML CUP MUCOUS MEM SCH ×2 (08:25→20:54)
[2023-04-20] MEDS: NYSTATIN 100,000 UNIT/ML SUSP 500,000 UNIT/5 ML CUP PO SCH ×4 (08:26→21:00)
[2023-04-20] MEDS: THIAMINE 100 MG TAB PO SCH ×2 (08:26→16:58)
[2023-04-20] MEDS: PANTOPRAZOLE 40 MG/10 ML VIAL IVP SCH (08:26)
[2023-04-20] MEDS: ANIDULAFUNGIN 100 MG in SODIUM CHLORIDE 0.9% 100 ML IVPB SCH (08:26)
[2023-04-20] MEDS: SODIUM BICARBONATE TAB 650 MG TAB PO SCH ×3 (08:26→16:58)
[2023-04-20] MEDS: ASPIRIN 81 MG PO SCH (08:27)
[2023-04-20] MEDS: FOLIC ACID 1 MG TAB PO SCH (08:28)
[2023-04-20] MEDS ORDERED: VANCOMYCIN 1,500 MG in SODIUM CHLORIDE 0.9% 500 ML 500 ML IVPB ONE (09:00)
[2023-04-20] MEDS ORDERED: INSULIN DETEMIR (LEVEMIR) 100 UNIT/ML SYR SQ ONE (09:40)
[2023-04-20 10:11] LABS: Glucose,Whole Blood 313 mg/dL (70-110)
--- NOTE | 2023-04-20 10:29 | P.PN ---
Subjective Progress Note Date: 04/20/23 On today's evaluation of 04/19/2023, the patient is being seen for a follow-up. The patient remains intubated on a mechanical ventilator. She was hemodynamically unstable in septic shock and based on that, the patient was intubated and placed on a mechanical ventilator and she was started on fluids and pressors and aggressive resuscitation. She was brought into the intensive care unit yesterday. The patient is currently sedated on propofol which is running at 10 mcg/kg/m. She is sent has a mechanical ventilator. She is on assist-control mode at the rate of 14, tidal volume of 350, FiO2 of 60% with a PEEP of 10. The blood gas from today shows a pH of 7.44 episodes of 35 and pO2 of 146. The chest x-ray from today shows adequate positioning of the orotracheal tube. The patient has limited bibasilar pulmonary infiltrates and possibly some small pleural effusions. The patient also has a right subclavian triple-lumen catheter in place. Sputum samples were sent and there is also still pending for now. Blood cultures still pending for now. The patient is on broad-spectrum antibiotics and I started on a combination of meropenem, Eraxis and vancomycin yesterday pending further cultures. White cell count today's of 22.3. She is afebrile. Pressors have been weaned off. Norepinephrine is running at 0.04 mcg/kg/m and the patient is also on physiologic dose of vasopressin. The patient was also given stress dose hydrocortisone yesterday. Immunosuppression medications were discontinued. There is a drop in hemoglobin down to 6.9 without evidence of any GI bleed. The patient will be receiving a unit of packed RBC. On a separate note, the patient is undergoing hemodialysis today. The ends of 20 with a creatinine of 1.6. Potassium levels at 3.5. Sodium level is at 138. Echocardiogram was done and completed yesterday and the patient has a normal LV function. There is moderate LVH, LV cavity is small. There is moderate to severe mitral annular calcification and thickening. No evidence of any pericardial effusion. The patient was also started on enteral feeding for nutritional support. She is currently on vital high-protein at the rate of 37 mL an hour. In terms of her blood sugar control, she is on insulin drip running at 2.25 units an hour. on today's evaluation of 04/20/2023, I'm seeing the patient for a follow-up. This morning, the patient is sedated and she is on propofol running at 10 mcg/kg/m. She is quite comfortable. She is synchronous a mechanical ventilator. She remains on assist-control mode of mechanical ventilation she is currently at the rate of 14 with a tidal volume of 350 and PEEP of 10 with an FiO2 of 60%. I reviewed the patient's blood gas from today and that is improvement in oxygenation. The pH is at 7.5 with a pCO2 of 33 and pO2 of 169. The chest x-ray showing limited infiltrationThe lung bases bilaterally. Oral ch icken tube is in a good location. The patient has no significant orotracheal secretions at this point in time. In terms of her sepsis, the patient is still on broad-spectrum antibiotics in the echoes down to 27. The blood culture has been negative. The patient is afebrile. Her pressor requirements have dropped significantly and the patient is currently off vasopressin and she is only on norepinephrine at 0.01 mcg/kg/m. She underwent hemodialysis yesterday. Albumin is low and nephrology opted to give the patient IV albumin. This is essentially to support the blood pressure and get off the pressors. She is currently on enteral feeding for nutritional support and she is receiving vital high-protein at the rate of 44 mL an hour. An echo cardiograph showed a preserved LV function. In terms of her blood sugar control, she is on Levemir insulin at a dose of 15 units and a sliding scale coverage with NovoLog where she is receiving a protocol +2 units scheduled. Her hemoglobin is stable. During the course of her hospitalization, she recently units of packed RBC for a hemoglobin of 6.9 and hemoglobin is currently up to 8.8. Objective - Vital Signs Vital signs: Vital Signs Temp 99.3 F 04/20/23 08:00 Pulse 79 04/20/23 10:00 Resp 20 04/20/23 10:00 BP 99/88 04/20/23 10:00 Pulse Ox 97 04/20/23 10:00 FiO2 60 04/20/23 08:00 Intake & Output 04/19/23 04/20/23 04/20/23 18:59 06:59 18:59 Intake Total 2905.933 1463.566 864 Output Total 900 0 0 Balance 2004.933 1463.566 864 Weight 74.843 kg 85 kg Intake: IV 1072 772 658 Anidulafungin 100 mg In 100 Sodium Chloride 0.9% 100 ml @ 84 mls/hr IVPB DAILY [facility] Rx#:[id number] Magnesium Sulfate-D5w Pmx 200 1 gm In Dextrose/Water 1 100ml.bag @ 100 mls/hr IVPB Q1H [facility] Rx#: [id number] Meropenem 500 mg In 100 Sodium Chloride 0.9% 100 ml @ 33.3 mls/hr IVPB Q24H [facility] Rx#:[id number] Pressure Bag (0.9 Sodium 72 72 24 Chloride) Sodium Chloride 0.9% 1, 800 600 200 000 ml @ 50 mls/hr IV . Q20H [facility] Rx#:[id number] Vancomycin 1,500 mg In 334 Sodium Chloride 0.9% 500 ml 500 ml @ 167 mls/hr IVPB ONCE ONE Rx#: [id number] Intake, IV Titration 89.933 73.566 0 Amount Insulin Regular 100 unit 1.083 In Sodium Chloride 0.9% 100 ml @ Titrate IV .Q0M [facility] Rx#:[id number] Norepinephrine 32 mg In 34.209 13.012 0 Sodium Chloride 0.9% 218 ml @ 0.5 MCG/KG/MIN 17. 541 mls/hr IV .[id number] [facility] Rx#:[id number] propofoL 1,000 mg In 54.641 60.554 Empty Bag 1 bag @ 15 MCG/ KG/MIN 6.736 mls/hr IV . [id number] [facility] Rx#:[id number] Tube Feeding 444 528 176 Blood Product 310 Rc As-1 Unit 310 [id number] Hemodialysis 900 Other 90 90 30 Output: Urine 0 0 0 Hemodialysis 900 Other: Voiding Method Indwelling Catheter Indwelling Catheter Indwelling Catheter ABP, PAP, CO, CI - Last Documented Arterial Blood Pressure 102/39 - Exam GENERAL EXAM: 72-year-old female, sedated and synchronous with mechanical ventilator. HEAD: Normocephalic and atraumatic EYES: Normal reaction of pupils, equal size. NOSE: Clear with pink turbinates. THROAT: No erythema or exudates. NECK: No masses, no JVD. CHEST: No chest wall deformity. LUNGS: Equal air entry with no crackles, wheeze, rhonchi or dullness. No conversational dyspnea or accessory muscle use.. CVS: S1 and S2 normal with no audible murmur, regular rhythm. No extra heart sounds ABDOMEN: No hepatosplenomegaly, active bowel sounds, no guarding or rigidity. SPINE: No scoliosis or deformity SKIN: There is a decubitus pressure ulcer, along with bilateral heel ulcerations. Eschar noted on the right foot. CENTRAL NERVOUS SYSTEM: Sedated, no focal deficits, tone is weak in all 4 extremities. EXTREMITIES: There is no peripheral edema, clubbing, or cyanosis. Peripheral pulses are intact. - Labs CBC & Chem 7: 04/20/23 05:00 04/20/23 05:00 Labs: Abnormal Lab Results - Last 24 Hours (Table) 04/19/23 04/19/23 04/19/23 Range/Units 06:26 12:02 14:04 WBC 29.9 H (3.8-10.6) k/uL RBC 3.14 L (3.80-5.40) m/uL Hgb 9.1 L D (11.4-16.0) gm/dL Hct 29.5 L (34.0-46.0) % MCHC 30.7 L (31.0-37.0) g/dL RDW 18.3 H (11.5-15.5) % Plt Count 81 L (150-450) k/uL Neutrophils # (1.3-7.7) k/uL Neutrophils # (Manual) 28.41 H (1.3-7.7) k/uL Lymphocytes # (1.0-4.8) k/uL Lymphocytes # (Manual) 0.60 L (1.0-4.8) k/uL ABG pH (7.35-7.45) ABG pCO2 (35-45) mmHg ABG pO2 (83-108) mmHg ABG Total CO2 (19-24) mmol/L ABG O2 Saturation (94-97) % Sodium (137-145) mmol/L BUN (7-17) mg/dL Creatinine (0.52-1.04) mg/dL Glucose (74-99) mg/dL POC Glucose (mg/dL) 207 H (70-110) mg/dL Hemoglobin A1c (<=6.0) % Calcium (8.4-10.2) mg/dL Crossmatch See Detail 04/19/23 04/19/23 04/20/23 Range/Units 15:46 20:06 00:10 WBC (3.8-10.6) k/uL RBC (3.80-5.40) m/uL Hgb (11.4-16.0) gm/dL Hct (34.0-46.0) % MCHC (31.0-37.0) g/dL RDW (11.5-15.5) % Plt Count (150-450) k/uL Neutrophils # (1.3-7.7) k/uL Neutrophils # (Manual) (1.3-7.7) k/uL Lymphocytes # (1.0-4.8) k/uL Lymphocytes # (Manual) (1.0-4.8) k/uL ABG pH (7.35-7.45) ABG pCO2 (35-45) mmHg ABG pO2 (83-108) mmHg ABG Total CO2 (19-24) mmol/L ABG O2 Saturation (94-97) % Sodium (137-145) mmol/L BUN (7-17) mg/dL Creatinine (0.52-1.04) mg/dL Glucose (74-99) mg/dL POC Glucose (mg/dL) 162 H 182 H 207 H (70-110) mg/dL Hemoglobin A1c (<=6.0) % Calcium (8.4-10.2) mg/dL Crossmatch 04/20/23 04/20/23 04/20/23 Range/Units 04:27 05:00 05:00 WBC (3.8-10.6) k/uL RBC (3.80-5.40) m/uL Hgb (11.4-16.0) gm/dL Hct (34.0-46.0) % MCHC (31.0-37.0) g/dL RDW (11.5-15.5) % Plt Count (150-450) k/uL Neutrophils # (1.3-7.7) k/uL Neutrophils # (Manual) (1.3-7.7) k/uL Lymphocytes # (1.0-4.8) k/uL Lymphocytes # (Manual) (1.0-4.8) k/uL ABG pH (7.35-7.45) ABG pCO2 (35-45) mmHg ABG pO2 (83-108) mmHg ABG Total CO2 (19-24) mmol/L ABG O2 Saturation (94-97) % Sodium 135 L (137-145) mmol/L BUN 22 H (7-17) mg/dL Creatinine 1.40 H (0.52-1.04) mg/dL Glucose 329 H (74-99) mg/dL POC Glucose (mg/dL) 388 H (70-110) mg/dL Hemoglobin A1c 6.4 H (<=6.0) % Calcium 7.7 L (8.4-10.2) mg/dL Crossmatch 04/20/23 04/20/23 04/20/23 Range/Units 05:00 05:31 08:21 WBC 27.3 H (3.8-10.6) k/uL RBC 3.08 L (3.80-5.40) m/uL Hgb 8.8 L (11.4-16.0) gm/dL Hct 28.7 L (34.0-46.0) % MCHC 30.8 L (31.0-37.0) g/dL RDW 18.2 H (11.5-15.5) % Plt Count 74 L (150-450) k/uL Neutrophils # 26.2 H (1.3-7.7) k/uL Neutrophils # (Manual) (1.3-7.7) k/uL Lymphocytes # 0.6 L (1.0-4.8) k/uL Lymphocytes # (Manual) (1.0-4.8) k/uL ABG pH 7.50 H (7.35-7.45) ABG pCO2 33 L (35-45) mmHg ABG pO2 169 H (83-108) mmHg ABG Total CO2 26 H (19-24) mmol/L ABG O2 Saturation 100.0 H (94-97) % Sodium (137-145) mmol/L BUN (7-17) mg/dL Creatinine (0.52-1.04) mg/dL Glucose (74-99) mg/dL POC Glucose (mg/dL) 340 H (70-110) mg/dL Hemoglobin A1c (<=6.0) % Calcium (8.4-10.2) mg/dL Crossmatch 04/20/23 Range/Units 10:09 WBC (3.8-10.6) k/uL RBC (3.80-5.40) m/uL Hgb (11.4-16.0) gm/dL Hct (34.0-46.0) % MCHC (31.0-37.0) g/dL RDW (11.5-15.5) % Plt Count (150-450) k/uL Neutrophils # (1.3-7.7) k/uL Neutrophils # (Manual) (1.3-7.7) k/uL Lymphocytes # (1.0-4.8) k/uL Lymphocytes # (Manual) (1.0-4.8) k/uL ABG pH (7.35-7.45) ABG pCO2 (35-45) mmHg ABG pO2 (83-108) mmHg ABG Total CO2 (19-24) mmol/L ABG O2 Saturation (94-97) % Sodium (137-145) mmol/L BUN (7-17) mg/dL Creatinine (0.52-1.04) mg/dL Glucose (74-99) mg/dL POC Glucose (mg/dL) 313 H (70-110) mg/dL Hemoglobin A1c (<=6.0) % Calcium (8.4-10.2) mg/dL Crossmatch Microbiology - Last 24 Hours (Table) 04/17/23 21:45 Gram Stain - Final Sputum Sputum Culture - Final Jeanie albicans 04/18/23 15:16 Blood Culture - Preliminary Blood 04/16/23 13:53 Blood Culture - Preliminary Blood 04/18/23 11:00 Blood Culture - Preliminary Blood Assessment and Plan Assessment: Acute hypoxemic respiratory failure, currently intubated on the mechanical ventilator, possibly secondary to aspiration. Most recent chest x-ray shows bibasilar opacities which may represent atelectasis versus airspace disease and small effusions. Oxygenation is stable at this point in time. Chest x-ray shows bibasilar pulmonary infiltrates. Pneumonia cannot be completely ruled out. Sputum samples have been sent and the patient remains intubated on a mechanical ventilator. Sepsis and septic shock, responded to fluids and pressors and the patient is currently on minimal doses of pressors. Overall fluid balance over the past 24 hours has been in the order of 6.2 L. Klebsiella pneumonia bacteremia, originally felt to be related to infected hemodialysis catheter, which has been replaced. Catheter culture did not isolate any organisms. Repeat blood cultures have been negative so far Leukocytosis, white blood count remains elevated Anemia of chronic disease, drop in hemoglobin without evidence of any GI bleed and the patient will be receiving a unit of packed RBC Thrombocytopenia, likely related to sepsis End-stage renal disease with previous renal transplant, currently requiring hemodialysis on a Tuesday, , Tuesday schedule. Patient does take antirejection medication in the form of Prograf, CellCept, and oral prednisone. CellCept is on hold due to immunosuppression. Patient undergoing hemodialysis this morning History of systolic congestive heart failure, with a mildly reduced LV function estimated at 45% on recent echocardiogram done December, Diabetes mellitus2, insulin-dependent, currently on Levemir insulin Benign essential hypertension Hyperlipidemia History of asthma, stable Bilateral lower extremity wounds Plan: Continue ventilator support, drop fio2 10 40 and PEEP to 8, and will try to wean the PEEP further in couple of hours of lungs and the pulse ox remained above 92% Stop sadation , assess underlying mentation Continue the broad-spectrum antibiotics and the patient is currently on a combination of meropenem, Eraxis and vancomycin Awaiting the results of the sputum and the blood cultures Echocardiogram shows a preserved LV function Wean off norepinephrine, the patient was given IV albumin Continue enteral feeding for nutritional support Complete hemodialysis was completed yesterday and is to be done again tomorrow Continue stress dose hydrocortisone Keep the patient off immunosuppressive agents change IV fluids to KVO Stop insulin drip and give the patient 15 units of Levemir plus a sliding scale coverage Condition is critical and we'll continue to follow and will make further recommendations based on her progress. This evaluation was done in more than 30 minutes. Time with Patient: Greater than 30
[2023-04-20] MEDS: SODIUM CHLORIDE 0.9% 1,000 ML IV SCH (10:45)
--- NOTE | 2023-04-20 11:12 | P.PN ---
Subjective Patient is seen in follow-up for end-stage renal disease. She is maintained on hemodialysis on Tuesday schedule. Currently on low-dose Levophed. On IV hydration. Receiving tube feeds. Intubated. Vital signs - On vasopressor support. General: Resting in bed. HEENT: Intubated. LUNGS: Scattered rhonchi. HEART: Rate and Rhythm are regular. ABDOMEN: No distention. EXTREMITITES: No edema. Objective - Vital Signs Vital signs: Vital Signs Temp 99.3 F 04/20/23 08:00 Pulse 79 04/20/23 10:00 Resp 20 04/20/23 10:00 BP 99/88 04/20/23 10:00 Pulse Ox 97 04/20/23 10:00 FiO2 40 04/20/23 10:59 Intake & Output 04/19/23 04/20/23 04/20/23 18:59 06:59 18:59 Intake Total 2905.933 1463.566 864 Output Total 900 0 0 Balance 2005.933 1463.566 864 Weight 74.843 kg 85 kg Intake: IV 1072 772 658 Anidulafungin 100 mg In 100 Sodium Chloride 0.9% 100 ml @ 84 mls/hr IVPB DAILY [facility] Rx#:[id number] Magnesium Sulfate-D5w Pmx 200 1 gm In Dextrose/Water 1 100ml.bag @ 100 mls/hr IVPB Q1H [facility] Rx#: [id number] Meropenem 500 mg In 100 Sodium Chloride 0.9% 100 ml @ 33.3 mls/hr IVPB Q24H [facility] Rx#:[id number] Pressure Bag (0.9 Sodium 72 72 24 Chloride) Sodium Chloride 0.9% 1, 800 600 200 000 ml @ 50 mls/hr IV . Q20H [facility] Rx#:[id number] Vancomycin 1,500 mg In 334 Sodium Chloride 0.9% 500 ml 500 ml @ 167 mls/hr IVPB ONCE ONE Rx#: [id number] Intake, IV Titration 89.933 73.566 0 Amount Insulin Regular 100 unit 1.083 In Sodium Chloride 0.9% 100 ml @ Titrate IV .Q0M [facility] Rx#:[id number] Norepinephrine 32 mg In 34.209 13.012 0 Sodium Chloride 0.9% 218 ml @ 0.5 MCG/KG/MIN 17. 541 mls/hr IV .[id number] [facility] Rx#:[id number] propofoL 1,000 mg In 54.641 60.554 Empty Bag 1 bag @ 15 MCG/ KG/MIN 6.736 mls/hr IV . [id number] [facility] Rx#:[id number] Tube Feeding 444 528 176 Blood Product 310 Rc As-1 Unit 310 [id number] Hemodialysis 900 Other 90 90 30 Output: Urine 0 0 0 Hemodialysis 900 Other: Voiding Method Indwelling Catheter Indwelling Catheter Indwelling Catheter ABP, PAP, CO, CI - Last Documented Arterial Blood Pressure 102/39 - Labs CBC & Chem 7: 04/20/23 05:00 04/20/23 05:00 Labs: Abnormal Lab Results - Last 24 Hours (Table) 04/19/23 04/19/23 04/19/23 Range/Units 06:26 12:02 14:04 WBC 29.9 H (3.8-10.6) k/uL RBC 3.14 L (3.80-5.40) m/uL Hgb 9.1 L D (11.4-16.0) gm/dL Hct 29.5 L (34.0-46.0) % MCHC 30.7 L (31.0-37.0) g/dL RDW 18.3 H (11.5-15.5) % Plt Count 81 L (150-450) k/uL Neutrophils # (1.3-7.7) k/uL Neutrophils # (Manual) 28.41 H (1.3-7.7) k/uL Lymphocytes # (1.0-4.8) k/uL Lymphocytes # (Manual) 0.60 L (1.0-4.8) k/uL ABG pH (7.35-7.45) ABG pCO2 (35-45) mmHg ABG pO2 (83-108) mmHg ABG Total CO2 (19-24) mmol/L ABG O2 Saturation (94-97) % Sodium (137-145) mmol/L BUN (7-17) mg/dL Creatinine (0.52-1.04) mg/dL Glucose (74-99) mg/dL POC Glucose (mg/dL) 207 H (70-110) mg/dL Hemoglobin A1c (<=6.0) % Calcium (8.4-10.2) mg/dL Crossmatch See Detail 04/19/23 04/19/23 04/20/23 Range/Units 15:46 20:06 00:10 WBC (3.8-10.6) k/uL RBC (3.80-5.40) m/uL Hgb (11.4-16.0) gm/dL Hct (34.0-46.0) % MCHC (31.0-37.0) g/dL RDW (11.5-15.5) % Plt Count (150-450) k/uL Neutrophils # (1.3-7.7) k/uL Neutrophils # (Manual) (1.3-7.7) k/uL Lymphocytes # (1.0-4.8) k/uL Lymphocytes # (Manual) (1.0-4.8) k/uL ABG pH (7.35-7.45) ABG pCO2 (35-45) mmHg ABG pO2 (83-108) mmHg ABG Total CO2 (19-24) mmol/L ABG O2 Saturation (94-97) % Sodium (137-145) mmol/L BUN (7-17) mg/dL Creatinine (0.52-1.04) mg/dL Glucose (74-99) mg/dL POC Glucose (mg/dL) 162 H 182 H 207 H (70-110) mg/dL Hemoglobin A1c (<=6.0) % Calcium (8.4-10.2) mg/dL Crossmatch 04/20/23 04/20/23 04/20/23 Range/Units 04:27 05:00 05:00 WBC (3.8-10.6) k/uL RBC (3.80-5.40) m/uL Hgb (11.4-16.0) gm/dL Hct (34.0-46.0) % MCHC (31.0-37.0) g/dL RDW (11.5-15.5) % Plt Count (150-450) k/uL Neutrophils # (1.3-7.7) k/uL Neutrophils # (Manual) (1.3-7.7) k/uL Lymphocytes # (1.0-4.8) k/uL Lymphocytes # (Manual) (1.0-4.8) k/uL ABG pH (7.35-7.45) ABG pCO2 (35-45) mmHg ABG pO2 (83-108) mmHg ABG Total CO2 (19-24) mmol/L ABG O2 Saturation (94-97) % Sodium 135 L (137-145) mmol/L BUN 22 H (7-17) mg/dL Creatinine 1.40 H (0.52-1.04) mg/dL Glucose 329 H (74-99) mg/dL POC Glucose (mg/dL) 388 H (70-110) mg/dL Hemoglobin A1c 6.4 H (<=6.0) % Calcium 7.7 L (8.4-10.2) mg/dL Crossmatch 04/20/23 04/20/23 04/20/23 Range/Units 05:00 05:31 08:21 WBC 27.3 H (3.8-10.6) k/uL RBC 3.08 L (3.80-5.40) m/uL Hgb 8.8 L (11.4-16.0) gm/dL Hct 28.7 L (34.0-46.0) % MCHC 30.8 L (31.0-37.0) g/dL RDW 18.2 H (11.5-15.5) % Plt Count 74 L (150-450) k/uL Neutrophils # 26.2 H (1.3-7.7) k/uL Neutrophils # (Manual) (1.3-7.7) k/uL Lymphocytes # 0.6 L (1.0-4.8) k/uL Lymphocytes # (Manual) (1.0-4.8) k/uL ABG pH 7.50 H (7.35-7.45) ABG pCO2 33 L (35-45) mmHg ABG pO2 169 H (83-108) mmHg ABG Total CO2 26 H (19-24) mmol/L ABG O2 Saturation 100.0 H (94-97) % Sodium (137-145) mmol/L BUN (7-17) mg/dL Creatinine (0.52-1.04) mg/dL Glucose (74-99) mg/dL POC Glucose (mg/dL) 340 H (70-110) mg/dL Hemoglobin A1c (<=6.0) % Calcium (8.4-10.2) mg/dL Crossmatch 04/20/23 Range/Units 10:09 WBC (3.8-10.6) k/uL RBC (3.80-5.40) m/uL Hgb (11.4-16.0) gm/dL Hct (34.0-46.0) % MCHC (31.0-37.0) g/dL RDW (11.5-15.5) % Plt Count (150-450) k/uL Neutrophils # (1.3-7.7) k/uL Neutrophils # (Manual) (1.3-7.7) k/uL Lymphocytes # (1.0-4.8) k/uL Lymphocytes # (Manual) (1.0-4.8) k/uL ABG pH (7.35-7.45) ABG pCO2 (35-45) mmHg ABG pO2 (83-108) mmHg ABG Total CO2 (19-24) mmol/L ABG O2 Saturation (94-97) % Sodium (137-145) mmol/L BUN (7-17) mg/dL Creatinine (0.52-1.04) mg/dL Glucose (74-99) mg/dL POC Glucose (mg/dL) 313 H (70-110) mg/dL Hemoglobin A1c (<=6.0) % Calcium (8.4-10.2) mg/dL Crossmatch Microbiology - Last 24 Hours (Table) 04/17/23 21:45 Gram Stain - Final Sputum Sputum Culture - Final Jeanie albicans 04/18/23 15:16 Blood Culture - Preliminary Blood 04/16/23 13:53 Blood Culture - Preliminary Blood 04/18/23 11:00 Blood Culture - Preliminary Blood Assessment and Plan Plan: Assessment: 1. End-stage renal disease maintained on hemodialysis Tuesday schedule. Femoral dialysis catheter was placed 04/13/2023. 2. Status post donor renal transplant in 2015. 3. Chronic systolic CHF ejection fraction of 40% with mild to moderate mitral regurgitation and moderate tricuspid regurgitation. 4. Volume overload. Improved. 5. Anemia of chronic kidney disease. On Aranesp. s/p pRBCs. 6. Metabolic acidosis secondary to chronic kidney disease. On oral bicarb. Improved postdialysis. 7. Septic shock on antibiotics and vasopressor support. Blood culture positive for Klebsiella 04/07/2023 - permacath was removed and temporary dialysis catheter was placed in the groin 04/13/2023. 8. Hypomagnesemia from poor intake. Replaced. Better. Plan: Hemodialysis tomorrow. Wean FiO2 and vasopressors. Follow-up repeat cultures. Prograf and CellCept held since 04/18/2023. On high-dose IV steroids. Patient will need permanent dialysis access - vascular surgery will be notified. Cleared by ID. 25 g IV albumin 2 doses today.
--- NOTE | 2023-04-20 11:37 | P.PN ---
Subjective Progress Note Date: 04/20/23 Principal diagnosis: Bacteremia Patient is a 72-year-old -[place] female with a comorbidities including diabetes mellitus hypertension hyperlipidemia end-stage renal disease on hemodialysis Tuesday via permacath patient presenting to the hospital with concerns for unable to care of self at home, patient did have blood cultures came back positive with gram-negative bacilli concerning for possible dialysis catheter infection. Dialysis catheter was removed 04/10/2023, the patient did have a new dialysis catheter placement on 04/13/2023, patient did have an episode of respiratory arrest night of 04/17/2023 requiring transfer to the ICU and intubation On today's evaluation that is 04/20/2023, the patient is afebrile this morning, the patient is intubated on the vent currently FiO2 is down to 40%, no significant purulent secretions through the ET reported by the nursing staff the patient presents somewhat off last that restarted this morning with a low-dose no diarrhea reported White count is 27.3, creatinine is 1.40, blood and sputum cultures Jeanie which is likely colonizer Objective - Vital Signs Vital signs: Vital Signs Temp 99.3 F 04/20/23 08:00 Pulse 79 04/20/23 10:00 Resp 20 04/20/23 10:00 BP 99/88 04/20/23 10:00 Pulse Ox 97 04/20/23 10:00 FiO2 40 04/20/23 10:59 Intake & Output 04/19/23 04/20/23 04/20/23 18:59 06:59 18:59 Intake Total 2905.933 1463.566 864 Output Total 900 0 0 Balance 2005.933 1463.566 864 Weight 74.843 kg 85 kg Intake: IV 1072 772 658 Anidulafungin 100 mg In 100 Sodium Chloride 0.9% 100 ml @ 84 mls/hr IVPB DAILY [facility] Rx#:[id number] Magnesium Sulfate-D5w Pmx 200 1 gm In Dextrose/Water 1 100ml.bag @ 100 mls/hr IVPB Q1H [facility] Rx#: [id number] Meropenem 500 mg In 100 Sodium Chloride 0.9% 100 ml @ 33.3 mls/hr IVPB Q24H [facility] Rx#:[id number] Pressure Bag (0.9 Sodium 72 72 24 Chloride) Sodium Chloride 0.9% 1, 800 600 200 000 ml @ 50 mls/hr IV . Q20H [facility] Rx#:[id number] Vancomycin 1,500 mg In 334 Sodium Chloride 0.9% 500 ml 500 ml @ 167 mls/hr IVPB ONCE ONE Rx#: [id number] Intake, IV Titration 89.933 73.566 0 Amount Insulin Regular 100 unit 1.083 In Sodium Chloride 0.9% 100 ml @ Titrate IV .Q0M [facility] Rx#:[id number] Norepinephrine 32 mg In 34.209 13.012 0 Sodium Chloride 0.9% 218 ml @ 0.5 MCG/KG/MIN 17. 541 mls/hr IV .[id number] [facility] Rx#:[id number] propofoL 1,000 mg In 54.641 60.554 Empty Bag 1 bag @ 15 MCG/ KG/MIN 6.736 mls/hr IV . [id number] [facility] Rx#:[id number] Tube Feeding 444 528 176 Blood Product 310 Rc As-1 Unit 310 [id number] Hemodialysis 900 Other 90 90 30 Output: Urine 0 0 0 Hemodialysis 900 Other: Voiding Method Indwelling Catheter Indwelling Catheter Indwelling Catheter ABP, PAP, CO, CI - Last Documented Arterial Blood Pressure 102/39 - Exam GENERAL DESCRIPTION: Elderly female intubated on the vent RESPIRATORY SYSTEM: Unlabored breathing , decreased breath sounds at bases HEART: S1 S2 regular rate and rhythm ABDOMEN: Soft , no tenderness EXTREMITIES: Heel pressure ulcer unstageable but no redness - Labs CBC & Chem 7: 04/20/23 05:00 04/20/23 05:00 Labs: Abnormal Lab Results - Last 24 Hours (Table) 04/19/23 04/19/23 04/19/23 Range/Units 06:26 12:02 14:04 WBC 29.9 H (3.8-10.6) k/uL RBC 3.14 L (3.80-5.40) m/uL Hgb 9.1 L D (11.4-16.0) gm/dL Hct 29.5 L (34.0-46.0) % MCHC 30.7 L (31.0-37.0) g/dL RDW 18.3 H (11.5-15.5) % Plt Count 81 L (150-450) k/uL Neutrophils # (1.3-7.7) k/uL Neutrophils # (Manual) 28.41 H (1.3-7.7) k/uL Lymphocytes # (1.0-4.8) k/uL Lymphocytes # (Manual) 0.60 L (1.0-4.8) k/uL ABG pH (7.35-7.45) ABG pCO2 (35-45) mmHg ABG pO2 (83-108) mmHg ABG Total CO2 (19-24) mmol/L ABG O2 Saturation (94-97) % Sodium (137-145) mmol/L BUN (7-17) mg/dL Creatinine (0.52-1.04) mg/dL Glucose (74-99) mg/dL POC Glucose (mg/dL) 207 H (70-110) mg/dL Hemoglobin A1c (<=6.0) % Calcium (8.4-10.2) mg/dL Crossmatch See Detail 04/19/23 04/19/23 04/20/23 Range/Units 15:46 20:06 00:10 WBC (3.8-10.6) k/uL RBC (3.80-5.40) m/uL Hgb (11.4-16.0) gm/dL Hct (34.0-46.0) % MCHC (31.0-37.0) g/dL RDW (11.5-15.5) % Plt Count (150-450) k/uL Neutrophils # (1.3-7.7) k/uL Neutrophils # (Manual) (1.3-7.7) k/uL Lymphocytes # (1.0-4.8) k/uL Lymphocytes # (Manual) (1.0-4.8) k/uL ABG pH (7.35-7.45) ABG pCO2 (35-45) mmHg ABG pO2 (83-108) mmHg ABG Total CO2 (19-24) mmol/L ABG O2 Saturation (94-97) % Sodium (137-145) mmol/L BUN (7-17) mg/dL Creatinine (0.52-1.04) mg/dL Glucose (74-99) mg/dL POC Glucose (mg/dL) 162 H 182 H 207 H (70-110) mg/dL Hemoglobin A1c (<=6.0) % Calcium (8.4-10.2) mg/dL Crossmatch 04/20/23 04/20/23 04/20/23 Range/Units 04:27 05:00 05:00 WBC (3.8-10.6) k/uL RBC (3.80-5.40) m/uL Hgb (11.4-16.0) gm/dL Hct (34.0-46.0) % MCHC (31.0-37.0) g/dL RDW (11.5-15.5) % Plt Count (150-450) k/uL Neutrophils # (1.3-7.7) k/uL Neutrophils # (Manual) (1.3-7.7) k/uL Lymphocytes # (1.0-4.8) k/uL Lymphocytes # (Manual) (1.0-4.8) k/uL ABG pH (7.35-7.45) ABG pCO2 (35-45) mmHg ABG pO2 (83-108) mmHg ABG Total CO2 (19-24) mmol/L ABG O2 Saturation (94-97) % Sodium 135 L (137-145) mmol/L BUN 22 H (7-17) mg/dL Creatinine 1.40 H (0.52-1.04) mg/dL Glucose 329 H (74-99) mg/dL POC Glucose (mg/dL) 388 H (70-110) mg/dL Hemoglobin A1c 6.4 H (<=6.0) % Calcium 7.7 L (8.4-10.2) mg/dL Crossmatch 04/20/23 04/20/23 04/20/23 Range/Units 05:00 05:31 08:21 WBC 27.3 H (3.8-10.6) k/uL RBC 3.08 L (3.80-5.40) m/uL Hgb 8.8 L (11.4-16.0) gm/dL Hct 28.7 L (34.0-46.0) % MCHC 30.8 L (31.0-37.0) g/dL RDW 18.2 H (11.5-15.5) % Plt Count 74 L (150-450) k/uL Neutrophils # 26.2 H (1.3-7.7) k/uL Neutrophils # (Manual) (1.3-7.7) k/uL Lymphocytes # 0.6 L (1.0-4.8) k/uL Lymphocytes # (Manual) (1.0-4.8) k/uL ABG pH 7.50 H (7.35-7.45) ABG pCO2 33 L (35-45) mmHg ABG pO2 169 H (83-108) mmHg ABG Total CO2 26 H (19-24) mmol/L ABG O2 Saturation 100.0 H (94-97) % Sodium (137-145) mmol/L BUN (7-17) mg/dL Creatinine (0.52-1.04) mg/dL Glucose (74-99) mg/dL POC Glucose (mg/dL) 340 H (70-110) mg/dL Hemoglobin A1c (<=6.0) % Calcium (8.4-10.2) mg/dL Crossmatch 04/20/23 Range/Units 10:09 WBC (3.8-10.6) k/uL RBC (3.80-5.40) m/uL Hgb (11.4-16.0) gm/dL Hct (34.0-46.0) % MCHC (31.0-37.0) g/dL RDW (11.5-15.5) % Plt Count (150-450) k/uL Neutrophils # (1.3-7.7) k/uL Neutrophils # (Manual) (1.3-7.7) k/uL Lymphocytes # (1.0-4.8) k/uL Lymphocytes # (Manual) (1.0-4.8) k/uL ABG pH (7.35-7.45) ABG pCO2 (35-45) mmHg ABG pO2 (83-108) mmHg ABG Total CO2 (19-24) mmol/L ABG O2 Saturation (94-97) % Sodium (137-145) mmol/L BUN (7-17) mg/dL Creatinine (0.52-1.04) mg/dL Glucose (74-99) mg/dL POC Glucose (mg/dL) 313 H (70-110) mg/dL Hemoglobin A1c (<=6.0) % Calcium (8.4-10.2) mg/dL Crossmatch Microbiology - Last 24 Hours (Table) 04/17/23 21:45 Gram Stain - Final Sputum Sputum Culture - Final Jeanie albicans 04/18/23 15:16 Blood Culture - Preliminary Blood 04/16/23 13:53 Blood Culture - Preliminary Blood 04/18/23 11:00 Blood Culture - Preliminary Blood Assessment and Plan (1) Bacteremia Current Visit: Yes Status: Acute Code(s): R78.81 - BACTEREMIA SNOMED Code(s): 6738216 (2) Unstageable pressure ulcer of left heel Current Visit: Yes Status: Acute Code(s): L89.620 - PRESSURE ULCER OF LEFT HEEL, UNSTAGEABLE SNOMED Code(s): 85792806195407991 Plan: 1-Patient with gram-negative bacteremia high clinical suspicion for possible permacatheter infection in this patient with no evidence of any abdominal tenderness on Examination and urine has been negative patient did have bilateral heel pressure ulcer with some necrotic tissue but no significant redness or foul-smelling drainage was noticed 2-patient did have significant change in her clinical condition, patient went into respiratory distress requiring intubation and transferred to the ICU, blood cultures so far negative and sputum cultures growing Jeanie likely colonizer. 3- patient to continue with meropenem, vancomycin and Eraxis and monitor glucose closely 4-worsening leukocytosis likely steroid related Dictation was produced using [employer] dictation software. please excuse any grammatical, word or spelling errors. Time with Patient: Less than 30
[2023-04-20 11:51] LABS: Glucose,Whole Blood 309 mg/dL (70-110)
[2023-04-20] MEDS: ALBUMIN HUMAN 25% 50 ML in EMPTY BAG 1 BAG IVPB SCH ×4 (11:54→20:00)
[2023-04-20 16:22] LABS: Glucose,Whole Blood 280 mg/dL (70-110)
--- NOTE | 2023-04-20 16:30 | P.PN ---
Subjective Progress Note Date: 04/20/23 Patient is a 72 -year-old female with ESRD s/p renal transplant in 2016 (recent rejection) now requiring dialysis //tue, hypertension, dyslipidemia, and insulin-dependent diabetes mellitus who emergency department due to general weakness and burning with urination. Patient discharged home from [facility] on 04/02/23 and patient felt she was still too weak to independently care for herself and needed to return to rehab. In the emergenncy department she underwent an extenisve evaluation.Vitals were unremarkable.Labs were remarbale for hemoglobin of 8.9, sodium 134, bicarb 21, BUN 13, creatinine 1.87, Magnesium 1.7, and Troponin of 0.047 (repeat troponin flat). Patient was initially admitted to [facility] on 04/03/23 at 11:10 PM. We were notified of this admission at 7:49 AM on 04/04/23. During patient's workup, she was noted to develop significant encephalopathy/confusion. He was found to have blood cultures that were positive for Klebsiella and was subsequently started on Rocephin. ID was consulted and recommended exchange dialysis catheter with tip sent for culture. Catheter was removed on 04/10. Notably, patient's CellCept was discontinued after developing bacteremia, while her Prograf level was noted to be low and therefore Prograf was increased to 3 mg twice a day with repeat level pending. Repeat blood cultures were negative. On the evening of 04/17 showed decreased responsiveness and increasing O2 requirements. It was de termined that she likely aspirated. She was subsequently transferred to the ICU and required intubation. Pulmonary critical care was consulted. Central and arterial lines were placed. She did require both Levophed and vasopressin. Antibiotics were increased to meropenem, vancomycin, and Eraxis. Vasopressors were weaned off by the evening of 04/19. Patient seen and examined at bedside she remains sedated on vent. We've been off since yesterday evening. No other acute events per nursing. Vital signs reviewed General: Ill appearing, mild distress, appears at stated age Cardiovascular: S1S2 reg, no murmur, positive posterior tibial pulse bilateral, Lungs: CTA bilateral, no rhonchi, no rales , no accessory muscle use Abdominal: soft, nontender to palpation, no guarding, no appreciable organomegaly Ext: no gross muscle atrophy, no edema b/l lower extremities, no contractures Neuro: CN II-XI grossly intact, no focal neuro deficits Psych: Sedated on vent Assessment/Plan: Klebsiella bacteremia, possibly related to hemodialysis catheter Sepsis Toxic metabolic encephalopathy Acute hypoxic respiratory failure possible underlying pneumonia -Infectious disease review: Continue with meropenem, vancomycin, and Eraxis - off tacro and myco given infection - conisder weaning solucortef at 100 mg IVP TID -Eraxis 100 mg IV daily D#3, meropenem 500 mg IV every 24 hours D#3 -Vancomycin with pharmacy dosing via trough D#3, monitor for toxicity with trough, cr will not be helpful as patient has ESRD - had been on rocephin 04/08-04/17 Acute exacerbation of systolic congestive heart failure, ejection fraction recovered to 50% with prior ejection fraction of 40% End-stage renal disease on hemodialysis Tuesday//Tuesday Status post donor kidney transplant in 2016 Anemia of end-stage renal disease Metabolic acidosis - nephrology note reviewed: Albumin 25 g IV 2. Vascular will be notified of need for permanent dialysis access. -Currently on hemodialysis -Sodium bicarb 1300 mg by mouth 3 times daily - fluid mgt with HD - coreg on hold due to hypotnesion Diabetes mellitus type 2 with hyperglycemia -Continue with sliding scale insulin -Increase Levemir to 15 units in the morning, start NovoLog 2 units every 4 hours -Follow blood sugars -A1c 6.4 Leukocytosis, reactive -Suspect worsening secondary to stress dose steroids -Follow CBC thrombocytopenia, likely secondary to consumption -Heparin antibody negative -Follow CBC Troponin elevation, chronic and secondary to ESRD: Not consistent with acute coronary syndrome - ASA 81mg daily - Atorvastatin 10 mg HS. Septic shock, resolved Chronic: HTN, HLD, Asthma, B/l LE wounds (presetn on admission) Imaging: Chest x-ray as reviewed by myself reveals tube in good position with right-sided pleural effusion and increased pulmonary vascular markings Data Review: Labs reviewed from today include CBC, basic metabolic profile, BMP, magnesium, and A1c which are remarkable for white blood cell count 27.3, hemoglobin 8.8, platelets 74, sodium 135, BUN 22, creatinine 1.4, glucose 329, A1c 6.4. DVT prophylaxis: Anticipated discharge date: Pending Clinical Course Anticipated discharge place: Pending Clinical Course This dictation was prepared using dragon medical voice recognition software. Though every attempt is made to correct errors during dictation some may still exist. Objective - Vital Signs Vital signs: Vital Signs Temp 99.3 F 04/20/23 12:00 Pulse 86 04/20/23 15:00 Resp 13 04/20/23 15:00 BP 143/72 04/20/23 15:00 Pulse Ox 98 04/20/23 14:45 FiO2 40 04/20/23 15:14 Intake & Output 04/19/23 04/20/23 04/20/23 18:59 06:59 18:59 Intake Total 2905.933 7862.482 3704.350 Output Total 900 0 0 Balance 2005.933 4838.421 5655.350 Weight 74.843 kg 85 kg Intake: IV 2869 023 2518 Albumin Human 25% 50 ml 100 In Empty Bag 1 bag @ 50 mls/hr IVPB Q1H [facility] Rx#: [id number] Anidulafungin 100 mg In 100 Sodium Chloride 0.9% 100 ml @ 84 mls/hr IVPB DAILY [facility] Rx#:[id number] Magnesium Sulfate-D5w Pmx 200 1 gm In Dextrose/Water 1 100ml.bag @ 100 mls/hr IVPB Q1H [facility] Rx#: [id number] Meropenem 500 mg In 100 Sodium Chloride 0.9% 100 ml @ 33.3 mls/hr IVPB Q24H [facility] Rx#:[id number] Pressure Bag (0.9 Sodium 72 72 54 Chloride) Sodium Chloride 0.9% 1, 800 600 350 000 ml @ 50 mls/hr IV . Q20H [facility] Rx#:[id number] Vancomycin 1,500 mg In 501 Sodium Chloride 0.9% 500 ml 500 ml @ 167 mls/hr IVPB ONCE ONE Rx#: [id number] Intake, IV Titration 89.933 73.566 20.350 Amount Insulin Regular 100 unit 1.083 In Sodium Chloride 0.9% 100 ml @ Titrate IV .Q0M [facility] Rx#:[id number] Norepinephrine 32 mg In 34.209 13.012 1.638 Sodium Chloride 0.9% 218 ml @ 0.5 MCG/KG/MIN 17. 541 mls/hr IV .[id number] [facility] Rx#:[id number] propofoL 1,000 mg In 54.641 60.554 18.712 Empty Bag 1 bag @ 15 MCG/ KG/MIN 6.736 mls/hr IV . [id number] [facility] Rx#:[id number] Tube Feeding 444 528 396 Blood Product 310 Rc As-1 Unit 310 [id number] Hemodialysis 900 Other 90 90 60 Output: Urine 0 0 0 Hemodialysis 900 Other: Voiding Method Indwelling Catheter Indwelling Catheter Indwelling Catheter ABP, PAP, CO, CI - Last Documented Arterial Blood Pressure 145/60 - Labs CBC & Chem 7: 04/20/23 05:00 04/20/23 05:00 Labs: Abnormal Lab Results - Last 24 Hours (Table) 04/19/23 04/20/23 04/20/23 Range/Units 20:06 00:10 04:27 WBC (3.8-10.6) k/uL RBC (3.80-5.40) m/uL Hgb (11.4-16.0) gm/dL Hct (34.0-46.0) % MCHC (31.0-37.0) g/dL RDW (11.5-15.5) % Plt Count (150-450) k/uL Neutrophils # (1.3-7.7) k/uL Lymphocytes # (1.0-4.8) k/uL ABG pH (7.35-7.45) ABG pCO2 (35-45) mmHg ABG pO2 (83-108) mmHg ABG Total CO2 (19-24) mmol/L ABG O2 Saturation (94-97) % Sodium (137-145) mmol/L BUN (7-17) mg/dL Creatinine (0.52-1.04) mg/dL Glucose (74-99) mg/dL POC Glucose (mg/dL) 182 H 207 H 388 H (70-110) mg/dL Hemoglobin A1c (<=6.0) % Calcium (8.4-10.2) mg/dL 04/20/23 04/20/23 04/20/23 Range/Units 05:00 05:00 05:00 WBC 27.3 H (3.8-10.6) k/uL RBC 3.08 L (3.80-5.40) m/uL Hgb 8.8 L (11.4-16.0) gm/dL Hct 28.7 L (34.0-46.0) % MCHC 30.8 L (31.0-37.0) g/dL RDW 18.2 H (11.5-15.5) % Plt Count 74 L (150-450) k/uL Neutrophils # 26.2 H (1.3-7.7) k/uL Lymphocytes # 0.6 L (1.0-4.8) k/uL ABG pH (7.35-7.45) ABG pCO2 (35-45) mmHg ABG pO2 (83-108) mmHg ABG Total CO2 (19-24) mmol/L ABG O2 Saturation (94-97) % Sodium 135 L (137-145) mmol/L BUN 22 H (7-17) mg/dL Creatinine 1.40 H (0.52-1.04) mg/dL Glucose 329 H (74-99) mg/dL POC Glucose (mg/dL) (70-110) mg/dL Hemoglobin A1c 6.4 H (<=6.0) % Calcium 7.7 L (8.4-10.2) mg/dL 04/20/23 04/20/23 04/20/23 Range/Units 05:31 08:21 10:09 WBC (3.8-10.6) k/uL RBC (3.80-5.40) m/uL Hgb (11.4-16.0) gm/dL Hct (34.0-46.0) % MCHC (31.0-37.0) g/dL RDW (11.5-15.5) % Plt Count (150-450) k/uL Neutrophils # (1.3-7.7) k/uL Lymphocytes # (1.0-4.8) k/uL ABG pH 7.50 H (7.35-7.45) ABG pCO2 33 L (35-45) mmHg ABG pO2 169 H (83-108) mmHg ABG Total CO2 26 H (19-24) mmol/L ABG O2 Saturation 100.0 H (94-97) % Sodium (137-145) mmol/L BUN (7-17) mg/dL Creatinine (0.52-1.04) mg/dL Glucose (74-99) mg/dL POC Glucose (mg/dL) 340 H 313 H (70-110) mg/dL Hemoglobin A1c (<=6.0) % Calcium (8.4-10.2) mg/dL 04/20/23 04/20/23 Range/Units 11:50 16:21 WBC (3.8-10.6) k/uL RBC (3.80-5.40) m/uL Hgb (11.4-16.0) gm/dL Hct (34.0-46.0) % MCHC (31.0-37.0) g/dL RDW (11.5-15.5) % Plt Count (150-450) k/uL Neutrophils # (1.3-7.7) k/uL Lymphocytes # (1.0-4.8) k/uL ABG pH (7.35-7.45) ABG pCO2 (35-45) mmHg ABG pO2 (83-108) mmHg ABG Total CO2 (19-24) mmol/L ABG O2 Saturation (94-97) % Sodium (137-145) mmol/L BUN (7-17) mg/dL Creatinine (0.52-1.04) mg/dL Glucose (74-99) mg/dL POC Glucose (mg/dL) 309 H 280 H (70-110) mg/dL Hemoglobin A1c (<=6.0) % Calcium (8.4-10.2) mg/dL Microbiology - Last 24 Hours (Table) 04/17/23 21:45 Gram Stain - Final Sputum Sputum Culture - Final Jeanie albicans 04/18/23 15:16 Blood Culture - Preliminary Blood 04/16/23 13:53 Blood Culture - Preliminary Blood 04/18/23 11:00 Blood Culture - Preliminary Blood
[2023-04-20 19:54] LABS: Glucose,Whole Blood 186 mg/dL (70-110)
[2023-04-20] MEDS: MEROPENEM 500 MG in SODIUM CHLORIDE 0.9% 100 ML IVPB SCH (20:00)
[2023-04-20] MEDS: ATORVASTATIN 10 MG TAB PO SCH (20:54)
[2023-04-20 23:38] LABS: Glucose,Whole Blood 118 mg/dL (70-110)
[2023-04-21] MEDS: INSULIN ASPART (NovoLOG) 100 UNIT/ML VIAL SQ SCH ×10 (00:47→20:29)
[2023-04-21 04:44] LABS: Glucose,Whole Blood 88 mg/dL (70-110)
[2023-04-21] MEDS: carvediloL 12.5 MG TAB PO SCH ×3 (04:49→17:17)
[2023-04-21 05:13] LABS: African American GFR (CKD) 35 (>60 ml/min/1.73 sqM); Anion Gap 7 mmol/L; Blood Urea Nitrogen 28 mg/dL (7-17); Calcium 8.5 mg/dL (8.4-10.2); Carbon Dioxide 25 mmol/L (22-30); Chloride 107 mmol/L (98-107); Glucose 99 mg/dL (74-99); Non-African American GFR(CKD) 30 (>60 ml/min/1.73 sqM); Potassium 3.1 mmol/L (3.5-5.1); Sodium 139 mmol/L (137-145)
[2023-04-21 05:17] LABS: Anisocytosis Slight; HCT 25.2 % (34.0-46.0); HGB 7.8 gm/dL (11.4-16.0); Hypochromasia Marked; MCH 28.6 pg (25.0-35.0); MCHC 31.1 g/dL (31.0-37.0); MCV 91.8 fL (80.0-100.0); Mean Platelet Volume 11.8; Poikilocytosis Moderate; RBC 2.74 m/uL (3.80-5.40); RDW 18.3 % (11.5-15.5); WBC 26.6 k/uL (3.8-10.6)
[2023-04-21 05:18] LABS: Platelet Count 61 k/uL (150-450)
[2023-04-21 05:57] LABS: ABG Base Excess 2.9 mmol/L; ABG HCO3 26 mmol/L (21-25); ABG Oxygen Saturation 99.6 % (94-97); ABG PCO2 33 mmHg (35-45); ABG PH 7.51 (7.35-7.45); ABG PO2 143 mmHg (83-108); ABG TCO2 27 mmol/L (19-24); Allen Test Performed? Yes
[2023-04-21] MEDS ORDERED: INSULIN DETEMIR (LEVEMIR) 100 UNIT/ML SYR SQ SCH (07:00)
[2023-04-21 07:01] LABS: Glucose,Whole Blood 119 mg/dL (70-110)
--- NOTE | 2023-04-21 07:34 | XR ---
EXAMINATION TYPE: XR chest 1V portable DATE OF EXAM: 04/21/2023 COMPARISON: 04/20/2023 INDICATION: Mechanical ventilation TECHNIQUE: Single frontal view of the chest is obtained. FINDINGS: The heart size is normal. The pulmonary vasculature is normal. Mild right lower lobe atelectasis may be present. There is silhouetting the left diaphragm. Endotracheal tube tip is above the yevgeniy. Nasogastric tube transverses the thorax. Right central radhames ous catheter tip is in the right atrium. IMPRESSION: 1. Mild by basilar infiltrates. Correlate for atelectasis. Small left pleural effusion may be present . 2. Lines and catheters discussed above.
[2023-04-21] MEDS: PANTOPRAZOLE 40 MG/10 ML VIAL IVP SCH (08:48)
[2023-04-21] MEDS: SODIUM BICARBONATE TAB 650 MG TAB PO SCH ×3 (08:48→17:17)
[2023-04-21] MEDS: FOLIC ACID 1 MG TAB PO SCH ×2 (08:48→08:49)
[2023-04-21] MEDS: CHLORHEXIDINE GLUCONATE 15 ML CUP MUCOUS MEM SCH (08:48)
[2023-04-21] MEDS: ASPIRIN 81 MG PO SCH (08:48)
[2023-04-21] MEDS: ANIDULAFUNGIN 100 MG in SODIUM CHLORIDE 0.9% 100 ML IVPB SCH (08:52)
[2023-04-21] MEDS: THIAMINE 100 MG TAB PO SCH ×2 (08:53→17:17)
[2023-04-21] MEDS: INSULIN DETEMIR (LEVEMIR) 100 UNIT/ML SYR SQ SCH (09:22)
--- NOTE | 2023-04-21 09:55 | P.PN ---
Subjective Progress Note Date: 04/21/23 On today's evaluation of 04/19/2023, the patient is being seen for a follow-up. The patient remains intubated on a mechanical ventilator. She was hemodynamically unstable in septic shock and based on that, the patient was intubated and placed on a mechanical ventilator and she was started on fluids and pressors and aggressive resuscitation. She was brought into the intensive care unit yesterday. The patient is currently sedated on propofol which is running at 10 mcg/kg/m. She is sent has a mechanical ventilator. She is on assist-control mode at the rate of 14, tidal volume of 350, FiO2 of 60% with a PEEP of 10. The blood gas from today shows a pH of 7.44 episodes of 35 and pO2 of 146. The chest x-ray from today shows adequate positioning of the orotracheal tube. The patient has limited bibasilar pulmonary infiltrates and possibly some small pleural effusions. The patient also has a right subclavian triple-lumen catheter in place. Sputum samples were sent and there is also still pending for now. Blood cultures still pending for now. The patient is on broad-spectrum antibiotics and I started on a combination of meropenem, Eraxis and vancomycin yesterday pending further cultures. White cell count today's of 22.3. She is afebrile. Pressors have been weaned off. Norepinephrine is running at 0.04 mcg/kg/m and the patient is also on physiologic dose of vasopressin. The patient was also given stress dose hydrocortisone yesterday. Immunosuppression medications were discontinued. There is a drop in hemoglobin down to 6.9 without evidence of any GI bleed. The patient will be receiving a unit of packed RBC. On a separate note, the patient is undergoing hemodialysis today. The ends of 20 with a creatinine of 1.6. Potassium levels at 3.5. Sodium level is at 138. Echocardiogram was done and completed yesterday and the patient has a normal LV function. There is moderate LVH, LV cavity is small. There is moderate to severe mitral annular calcification and thickening. No evidence of any pericardial effusion. The patient was also started on enteral feeding for nutritional support. She is currently on vital high-protein at the rate of 37 mL an hour. In terms of her blood sugar control, she is on insulin drip running at 2.25 units an hour. on today's evaluation of 04/20/2023, I'm seeing the patient for a follow-up. This morning, the patient is sedated and she is on propofol running at 10 mcg/kg/m. She is quite comfortable. She is synchronous a mechanical ventilator. She remains on assist-control mode of mechanical ventilation she is currently at the rate of 14 with a tidal volume of 350 and PEEP of 10 with an FiO2 of 60%. I reviewed the patient's blood gas from today and that is improvement in oxygenation. The pH is at 7.5 with a pCO2 of 33 and pO2 of 169. The chest x-ray showing limited infiltrationThe lung bases bilaterally. Oral ch icken tube is in a good location. The patient has no significant orotracheal secretions at this point in time. In terms of her sepsis, the patient is still on broad-spectrum antibiotics in the echoes down to 27. The blood culture has been negative. The patient is afebrile. Her pressor requirements have dropped significantly and the patient is currently off vasopressin and she is only on norepinephrine at 0.01 mcg/kg/m. She underwent hemodialysis yesterday. Albumin is low and nephrology opted to give the patient IV albumin. This is essentially to support the blood pressure and get off the pressors. She is currently on enteral feeding for nutritional support and she is receiving vital high-protein at the rate of 44 mL an hour. An echo cardiograph showed a preserved LV function. In terms of her blood sugar control, she is on Levemir insulin at a dose of 15 units and a sliding scale coverage with NovoLog where she is receiving a protocol +2 units scheduled. Her hemoglobin is stable. During the course of her hospitalization, she recently units of packed RBC for a hemoglobin of 6.9 and hemoglobin is currently up to 8.8. On 04/21/2023, I'm seeing the patient for a follow-up. This morning, the patient is on propofol running at 10 mcg/kg/m which is giving low level of sedation. The patient was opening eyes spontaneously. She is following simple commands. She is profoundly weak and lethargic still. She is a process of undergoing hemodialysis. The goal of ultrafiltration is 1 L. The patient is on assist-control mode of mechanical ventilation at the rate of 14, tidal volume of 350, FiO2 of 40% with a PEEP of 5. The morning blood gases from today showed a pH of 7.51 with a pCO2 of 33 and pO2 of 143. Chest x-ray shows some atelectatic changes in the lung bases bilaterally. Orotracheal tube is in a good location. As far as her sepsis, the patient's echoes at elevated at 26. The patient remains on stress dose hydrocortisone. The patient is on broad-spectrum antibiotics including a combination of vancomycin, meropenem and Eraxis. The patient had Jeanie or sputum. Most likely colonization. Blood culture has been negative. The patient has a vancomycin trough level of 13.5. The patient is currently off pressors. She is receiving enteral feeding for nutritional support. She is currently on vital high-protein at the rate of 40 mL an hour. The rest of the blood work was noted. The hemoglobin is at 7.8. Urine is a 28 with a creatinine of 1.6 and a sodium level is at 139. The plan is to complete hemodialysis and assess the patient's ability to wean by checking weaning parameters and possibly given given a spontaneous breathing trial and if she ends up having adequate mentation and adequate weaning parameters. Objective - Vital Signs Vital signs: Vital Signs Temp 98.4 F 04/21/23 04:00 Pulse 73 04/21/23 07:00 Resp 14 04/21/23 07:00 BP 144/75 04/21/23 07:00 Pulse Ox 100 04/21/23 07:00 FiO2 40 04/21/23 07:46 Intake & Output 04/20/23 04/21/23 04/21/23 18:59 06:59 18:59 Intake Total 1278.138 5917.853 80 Output Total 0 0 0 Balance 2939.342 3254.853 80 Weight 86.5 kg Intake: IV 1213 532 36 Albumin Human 25% 50 ml 100 100 In Empty Bag 1 bag @ 50 mls/hr IVPB Q1H [facility] Rx#: [id number] Anidulafungin 100 mg In 100 Sodium Chloride 0.9% 100 ml @ 84 mls/hr IVPB DAILY [facility] Rx#:[id number] Pressure Bag (0.9 Sodium 72 72 6 Chloride) Sodium Chloride 0.9% 1, 440 360 30 000 ml @ 50 mls/hr IV . Q20H [facility] Rx#:[id number] Vancomycin 1,500 mg In 501 Sodium Chloride 0.9% 500 ml 500 ml @ 167 mls/hr IVPB ONCE ONE Rx#: [id number] Intake, IV Titration 21.061 60.853 Amount Norepinephrine 32 mg In 1.638 Sodium Chloride 0.9% 218 ml @ 0.5 MCG/KG/MIN 17. 541 mls/hr IV .[id number] [facility] Rx#:[id number] propofoL 1,000 mg In 19.423 60.853 Empty Bag 1 bag @ 15 MCG/ KG/MIN 6.736 mls/hr IV . [id number] [facility] Rx#:[id number] Tube Feeding 528 528 44 Other 90 90 Output: Urine 0 0 0 Other: Voiding Method Indwelling Catheter Indwelling Catheter ABP, PAP, CO, CI - Last Documented Arterial Blood Pressure 156/68 - Exam GENERAL EXAM: 72-year-old female, sedated and synchronous with mechanical ventilator. HEAD: Normocephalic and atraumatic EYES: Normal reaction of pupils, equal size. NOSE: Clear with pink turbinates. THROAT: No erythema or exudates. NECK: No masses, no JVD. CHEST: No chest wall deformity. LUNGS: Equal air entry with no crackles, wheeze, rhonchi or dullness. No conversational dyspnea or accessory muscle use.. CVS: S1 and S2 normal with no audible murmur, regular rhythm. No extra heart sounds ABDOMEN: No hepatosplenomegaly, active bowel sounds, no guarding or rigidity. SPINE: No scoliosis or deformity SKIN: There is a decubitus pressure ulcer, along with bilateral heel ulcerations. Eschar noted on the right foot. CENTRAL NERVOUS SYSTEM: Sedated, no focal deficits, tone is weak in all 4 extremities. EXTREMITIES: There is no peripheral edema, clubbing, or cyanosis. Peripheral pulses are intact. - Labs CBC & Chem 7: 04/21/23 04:10 04/21/23 04:10 Labs: Abnormal Lab Results - Last 24 Hours (Table) 04/20/23 04/20/23 04/20/23 Range/Units 10:09 11:50 16:21 WBC (3.8-10.6) k/uL RBC (3.80-5.40) m/uL Hgb (11.4-16.0) gm/dL Hct (34.0-46.0) % RDW (11.5-15.5) % Plt Count (150-450) k/uL ABG pH (7.35-7.45) ABG pCO2 (35-45) mmHg ABG pO2 (83-108) mmHg ABG HCO3 (21-25) mmol/L ABG Total CO2 (19-24) mmol/L ABG O2 Saturation (94-97) % Potassium (3.5-5.1) mmol/L BUN (7-17) mg/dL Creatinine (0.52-1.04) mg/dL POC Glucose (mg/dL) 313 H 309 H 280 H (70-110) mg/dL 04/20/23 04/20/23 04/21/23 Range/Units 19:52 23:36 04:10 WBC (3.8-10.6) k/uL RBC (3.80-5.40) m/uL Hgb (11.4-16.0) gm/dL Hct (34.0-46.0) % RDW (11.5-15.5) % Plt Count (150-450) k/uL ABG pH (7.35-7.45) ABG pCO2 (35-45) mmHg ABG pO2 (83-108) mmHg ABG HCO3 (21-25) mmol/L ABG Total CO2 (19-24) mmol/L ABG O2 Saturation (94-97) % Potassium 3.1 L (3.5-5.1) mmol/L BUN 28 H (7-17) mg/dL Creatinine 1.67 H (0.52-1.04) mg/dL POC Glucose (mg/dL) 186 H 118 H (70-110) mg/dL 04/21/23 04/21/23 04/21/23 Range/Units 04:10 05:51 07:00 WBC 26.6 H (3.8-10.6) k/uL RBC 2.74 L (3.80-5.40) m/uL Hgb 7.8 L (11.4-16.0) gm/dL Hct 25.2 L (34.0-46.0) % RDW 18.3 H (11.5-15.5) % Plt Count 61 L (150-450) k/uL ABG pH 7.51 H (7.35-7.45) ABG pCO2 33 L (35-45) mmHg ABG pO2 143 H (83-108) mmHg ABG HCO3 26 H (21-25) mmol/L ABG Total CO2 27 H (19-24) mmol/L ABG O2 Saturation 99.6 H (94-97) % Potassium (3.5-5.1) mmol/L BUN (7-17) mg/dL Creatinine (0.52-1.04) mg/dL POC Glucose (mg/dL) 119 H (70-110) mg/dL Microbiology - Last 24 Hours (Table) 04/18/23 15:16 Blood Culture - Preliminary Blood 04/18/23 11:00 Blood Culture - Preliminary Blood 04/17/23 21:45 Gram Stain - Final Sputum Sputum Culture - Final Jeanie albicans Assessment and Plan Assessment: Acute hypoxemic respiratory failure, currently intubated on the mechanical ventilator, possibly secondary to aspiration. Most recent chest x-ray shows bibasilar opacities which may represent atelectasis versus airspace disease and small effusions. Oxygenation is stable at this point in time. Chest x-ray shows bibasilar pulmonary infiltrates. Pneumonia cannot be completely ruled out. Sputum samples have been sent and the patient remains intubated on a mechanical ventilator. The sputum sample was positive for Jeanie. Patient remains on a mechanical ventilator. Improvement in oxygenation while being on FiO2 of 40% with a PEEP of 5. Chest x-ray findings are stable. Sepsis and septic shock, responded to fluids and pressors and the patient is currently off pressors Klebsiella pneumonia bacteremia, originally felt to be related to infected hemodialysis catheter, which has been replaced. Catheter culture did not isolate any organisms. Repeat blood cultures have been negative so far Leukocytosis, white blood count remains elevated, slowly improving Anemia of chronic disease, drop in hemoglobin without evidence of any GI bleed and the patient will be receiving a unit of packed RBC Thrombocytopenia, likely related to sepsis End-stage renal disease with previous renal transplant, currently requiring hemodialysis on a Tuesday, , Tuesday schedule. Patient does take antirejection medication in the form of Prograf, CellCept, and oral prednisone. CellCept is on hold due to immunosuppression. Patient undergoing hemodialysis this morning History of systolic congestive heart failure, with a mildly reduced LV function estimated at 45% on recent echocardiogram done December, Diabetes mellitus2, insulin-dependent, currently on Levemir insulin Benign essential hypertension Hyperlipidemia History of asthma, stable Bilateral lower extremity wounds Plan: Continue ventilator support, drop fio2 10 40 and PEEP to 5 Keep the patient off sedation Assess weaning parameters once the patient is completing her dialysis May consider giving a spontaneous breathing trial if there is adequate mentation and adequate weaning parameters Continue the broad-spectrum antibiotics and the patient is currently on a combination of meropenem, Eraxis and vancomycin Awaiting the results of the sputum and the blood cultures Echocardiogram shows a preserved LV function Continue enteral feeding for nutritional support Continue stress dose hydrocortisone Keep the patient off immunosuppressive agents change IV fluids to KVO Stop insulin drip and give the patient 5 units of Levemir plus a sliding scale coverage Condition is critical and we'll continue to follow and will make further recommendations based on her progress. This evaluation was done in more than 30 minutes. Time with Patient: Greater than 30
--- NOTE | 2023-04-21 11:20 | P.PN ---
Subjective Patient is seen in follow-up for end-stage renal disease. She is maintained on hemodialysis on Tuesday schedule. Off vasopressors. Receiving tube feeds. Intubated. Vital signs stable. General: Resting in bed. HEENT: Awake on vent. LUNGS: Scattered rhonchi. HEART: Rate and Rhythm are regular. ABDOMEN: No distention. EXTREMITITES: 1+ edema. Objective - Vital Signs Vital signs: Vital Signs Temp 97.6 F 04/21/23 08:00 Pulse 73 04/21/23 10:00 Resp 13 04/21/23 10:00 BP 122/70 04/21/23 10:00 Pulse Ox 100 04/21/23 10:00 FiO2 40 04/21/23 10:52 Intake & Output 04/20/23 04/21/23 04/21/23 18:59 06:59 18:59 Intake Total 1281.429 2028.853 188 Output Total 0 0 0 Balance 4006.977 7716.853 188 Weight 86.5 kg Intake: IV 1213 532 144 Albumin Human 25% 50 ml 100 100 In Empty Bag 1 bag @ 50 mls/hr IVPB Q1H [facility] Rx#: [id number] Anidulafungin 100 mg In 100 Sodium Chloride 0.9% 100 ml @ 84 mls/hr IVPB DAILY [facility] Rx#:[id number] Pressure Bag (0.9 Sodium 72 72 24 Chloride) Sodium Chloride 0.9% 1, 440 360 120 000 ml @ 50 mls/hr IV . Q20H [facility] Rx#:[id number] Vancomycin 1,500 mg In 501 Sodium Chloride 0.9% 500 ml 500 ml @ 167 mls/hr IVPB ONCE ONE Rx#: [id number] Intake, IV Titration 21.061 60.853 Amount Norepinephrine 32 mg In 1.638 Sodium Chloride 0.9% 218 ml @ 0.5 MCG/KG/MIN 17. 541 mls/hr IV .[id number] [facility] Rx#:[id number] propofoL 1,000 mg In 19.423 60.853 Empty Bag 1 bag @ 15 MCG/ KG/MIN 6.736 mls/hr IV . [id number] [facility] Rx#:[id number] Tube Feeding 528 528 44 Other 90 90 Output: Urine 0 0 0 Other: Voiding Method Indwelling Catheter Indwelling Catheter ABP, PAP, CO, CI - Last Documented Arterial Blood Pressure 137/67 - Labs CBC & Chem 7: 04/21/23 04:10 04/21/23 04:10 Labs: Abnormal Lab Results - Last 24 Hours (Table) 04/20/23 04/20/23 04/20/23 Range/Units 11:50 16:21 19:52 WBC (3.8-10.6) k/uL RBC (3.80-5.40) m/uL Hgb (11.4-16.0) gm/dL Hct (34.0-46.0) % RDW (11.5-15.5) % Plt Count (150-450) k/uL ABG pH (7.35-7.45) ABG pCO2 (35-45) mmHg ABG pO2 (83-108) mmHg ABG HCO3 (21-25) mmol/L ABG Total CO2 (19-24) mmol/L ABG O2 Saturation (94-97) % Potassium (3.5-5.1) mmol/L BUN (7-17) mg/dL Creatinine (0.52-1.04) mg/dL POC Glucose (mg/dL) 309 H 280 H 186 H (70-110) mg/dL 04/20/23 04/21/23 04/21/23 Range/Units 23:36 04:10 04:10 WBC 26.6 H (3.8-10.6) k/uL RBC 2.74 L (3.80-5.40) m/uL Hgb 7.8 L (11.4-16.0) gm/dL Hct 25.2 L (34.0-46.0) % RDW 18.3 H (11.5-15.5) % Plt Count 61 L (150-450) k/uL ABG pH (7.35-7.45) ABG pCO2 (35-45) mmHg ABG pO2 (83-108) mmHg ABG HCO3 (21-25) mmol/L ABG Total CO2 (19-24) mmol/L ABG O2 Saturation (94-97) % Potassium 3.1 L (3.5-5.1) mmol/L BUN 28 H (7-17) mg/dL Creatinine 1.67 H (0.52-1.04) mg/dL POC Glucose (mg/dL) 118 H (70-110) mg/dL 04/21/23 04/21/23 Range/Units 05:51 07:00 WBC (3.8-10.6) k/uL RBC (3.80-5.40) m/uL Hgb (11.4-16.0) gm/dL Hct (34.0-46.0) % RDW (11.5-15.5) % Plt Count (150-450) k/uL ABG pH 7.51 H (7.35-7.45) ABG pCO2 33 L (35-45) mmHg ABG pO2 143 H (83-108) mmHg ABG HCO3 26 H (21-25) mmol/L ABG Total CO2 27 H (19-24) mmol/L ABG O2 Saturation 99.6 H (94-97) % Potassium (3.5-5.1) mmol/L BUN (7-17) mg/dL Creatinine (0.52-1.04) mg/dL POC Glucose (mg/dL) 119 H (70-110) mg/dL Microbiology - Last 24 Hours (Table) 04/18/23 15:16 Blood Culture - Preliminary Blood 04/18/23 11:00 Blood Culture - Preliminary Blood 04/17/23 21:45 Gram Stain - Final Sputum Sputum Culture - Final Jeanie albicans Assessment and Plan Plan: Assessment: 1. End-stage renal disease maintained on hemodialysis Tuesday schedule. Femoral dialysis catheter was placed 04/13/2023. 2. Status post donor renal transplant in 2015. 3. Chronic systolic CHF ejection fraction of 40% with mild to moderate mitral regurgitation and moderate tricuspid regurgitation. 4. Volume overload. Improved. 5. Anemia of chronic kidney disease. On Aranesp. s/p pRBCs. 6. Metabolic acidosis secondary to chronic kidney disease. On oral bicarb. Improved postdialysis. 7. Septic shock on antibiotics and vasopressor support. Blood culture positive for Klebsiella 04/07/2023 - permacath was removed and temporary dialysis ca theter was placed in the groin 04/13/2023. 8. Hypomagnesemia from poor intake. Replaced. Better. 9. Hypokalemia from poor intake. Plan: Currently seen one undergoing hemodialysis. Using 4k bath. Challenge UF. Wean FiO2. Follow-up repeat cultures. Prograf and CellCept held since 04/18/2023. On high-dose IV steroids. Patient will need permanent dialysis access - vascular surgery notified. C leared by ID. Status post IV albumin given 04/20/2023. Repeat potassium level 2 hours after dialysis. 80 mg IV Lasix once this evening.
[2023-04-21] MEDS: NOREPINEPHRINE 32 MG in SODIUM CHLORIDE 0.9% 218 ML IV SCH ×2 (11:50→23:08)
[2023-04-21 11:53] LABS: Glucose,Whole Blood 158 mg/dL (70-110)
[2023-04-21] MEDS: NYSTATIN 100,000 UNIT/ML SUSP 500,000 UNIT/5 ML CUP PO SCH ×4 (12:14→20:47)
--- NOTE | 2023-04-21 12:32 | P.PN ---
Subjective Progress Note Date: 04/21/23 Principal diagnosis: Bacteremia Patient is a 72-year-old -[place] female with a comorbidities including diabetes mellitus hypertension hyperlipidemia end-stage renal disease on hemodialysis Tuesday via permacath patient presenting to the hospital with concerns for unable to care of self at home, patient did have blood cultures came back positive with gram-negative bacilli concerning for possible dialysis catheter infection. Dialysis catheter was removed 04/10/2023, the patient did have a new dialysis catheter placement on 04/13/2023, patient did have an episode of respiratory arrest night of 04/17/2023 requiring transfer to the ICU and intubation On today's evaluation that is 04/21/2023, the patient remains to be afebrile, the patient is here begin stable not requiring any pressor support and is currently undergoing dialysis, the patient is intubated on the vent currently FiO2 is down to 40%, no significant purulent secretions through the ET reported, patient seemed to be slightly more week after discontinuation of her sedation White count is slightly down to 26.6, creatinine is 1.67, blood and sputum cultures Jeanie which is likely colonizer Objective - Vital Signs Vital signs: Vital Signs Temp 98.4 F 04/21/23 04:00 Pulse 73 04/21/23 07:00 Resp 14 04/21/23 07:00 BP 144/75 04/21/23 07:00 Pulse Ox 100 04/21/23 07:00 FiO2 40 04/21/23 07:46 Intake & Output 04/20/23 04/21/23 04/21/23 18:59 06:59 18:59 Intake Total 3609.271 3979.853 80 Output Total 0 0 0 Balance 5317.433 4386.853 80 Weight 86.5 kg Intake: IV 1213 532 36 Albumin Human 25% 50 ml 100 100 In Empty Bag 1 bag @ 50 mls/hr IVPB Q1H [facility] Rx#: [id number] Anidulafungin 100 mg In 100 Sodium Chloride 0.9% 100 ml @ 84 mls/hr IVPB DAILY [facility] Rx#:[id number] Pressure Bag (0.9 Sodium 72 72 6 Chloride) Sodium Chloride 0.9% 1, 440 360 30 000 ml @ 50 mls/hr IV . Q20H [facility] Rx#:[id number] Vancomycin 1,500 mg In 501 Sodium Chloride 0.9% 500 ml 500 ml @ 167 mls/hr IVPB ONCE ONE Rx#: [id number] Intake, IV Titration 21.061 60.853 Amount Norepinephrine 32 mg In 1.638 Sodium Chloride 0.9% 218 ml @ 0.5 MCG/KG/MIN 17. 541 mls/hr IV .[id number] [facility] Rx#:[id number] propofoL 1,000 mg In 19.423 60.853 Empty Bag 1 bag @ 15 MCG/ KG/MIN 6.736 mls/hr IV . [id number] [facility] Rx#:[id number] Tube Feeding 528 528 44 Other 90 90 Output: Urine 0 0 0 Other: Voiding Method Indwelling Catheter Indwelling Catheter ABP, PAP, CO, CI - Last Documented Arterial Blood Pressure 156/68 - Exam GENERAL DESCRIPTION: Elderly female intubated on the vent RESPIRATORY SYSTEM: Unlabored breathing , decreased breath sounds at bases HEART: S1 S2 regular rate and rhythm ABDOMEN: Soft , no tenderness EXTREMITIES: Heel pressure ulcer unstageable but no redness - Labs CBC & Chem 7: 04/21/23 04:10 04/21/23 04:10 Labs: Abnormal Lab Results - Last 24 Hours (Table) 04/20/23 04/20/23 04/20/23 Range/Units 11:50 16:21 19:52 WBC (3.8-10.6) k/uL RBC (3.80-5.40) m/uL Hgb (11.4-16.0) gm/dL Hct (34.0-46.0) % RDW (11.5-15.5) % Plt Count (150-450) k/uL ABG pH (7.35-7.45) ABG pCO2 (35-45) mmHg ABG pO2 (83-108) mmHg ABG HCO3 (21-25) mmol/L ABG Total CO2 (19-24) mmol/L ABG O2 Saturation (94-97) % Potassium (3.5-5.1) mmol/L BUN (7-17) mg/dL Creatinine (0.52-1.04) mg/dL POC Glucose (mg/dL) 309 H 280 H 186 H (70-110) mg/dL 04/20/23 04/21/23 04/21/23 Range/Units 23:36 04:10 04:10 WBC 26.6 H (3.8-10.6) k/uL RBC 2.74 L (3.80-5.40) m/uL Hgb 7.8 L (11.4-16.0) gm/dL Hct 25.2 L (34.0-46.0) % RDW 18.3 H (11.5-15.5) % Plt Count 61 L (150-450) k/uL ABG pH (7.35-7.45) ABG pCO2 (35-45) mmHg ABG pO2 (83-108) mmHg ABG HCO3 (21-25) mmol/L ABG Total CO2 (19-24) mmol/L ABG O2 Saturation (94-97) % Potassium 3.1 L (3.5-5.1) mmol/L BUN 28 H (7-17) mg/dL Creatinine 1.67 H (0.52-1.04) mg/dL POC Glucose (mg/dL) 118 H (70-110) mg/dL 04/21/23 04/21/23 Range/Units 05:51 07:00 WBC (3.8-10.6) k/uL RBC (3.80-5.40) m/uL Hgb (11.4-16.0) gm/dL Hct (34.0-46.0) % RDW (11.5-15.5) % Plt Count (150-450) k/uL ABG pH 7.51 H (7.35-7.45) ABG pCO2 33 L (35-45) mmHg ABG pO2 143 H (83-108) mmHg ABG HCO3 26 H (21-25) mmol/L ABG Total CO2 27 H (19-24) mmol/L ABG O2 Saturation 99.6 H (94-97) % Potassium (3.5-5.1) mmol/L BUN (7-17) mg/dL Creatinine (0.52-1.04) mg/dL POC Glucose (mg/dL) 119 H (70-110) mg/dL Microbiology - Last 24 Hours (Table) 04/18/23 15:16 Blood Culture - Preliminary Blood 04/18/23 11:00 Blood Culture - Preliminary Blood 04/17/23 21:45 Gram Stain - Final Sputum Sputum Culture - Final Jeanie albicans Assessment and Plan (1) Bacteremia Current Visit: Yes Status: Acute Code(s): R78.81 - BACTEREMIA SNOMED Code(s): 4997139 (2) Unstageable pressure ulcer of left heel Current Visit: Yes Status: Acute Code(s): L89.620 - PRESSURE ULCER OF LEFT H EEL, UNSTAGEABLE SNOMED Code(s): 92056043484319524 Plan: 1-Patient with gram-negative bacteremia high clinical suspicion for possible permacatheter infection in this patient with no evidence of any abdominal tenderness on Examination and urine has been negative patient did have bilateral heel pressure ulcer with some necrotic tissue but no significant redness or foul-smelling drainage was noticed 2-patient did have significant change in her clinical condition, patient went into respiratory distress requiring intubation and transferred to the ICU, blood cultures so far negative and sputum cultures growing Jeanie likely colonizer. 3- patient to continue with meropenem, vancomycin and Eraxis and monitor clinical course closely 4-worsening leukocytosis likely steroid related and will be monitored closely however her white count is trending down Dictation was produced using [employer] dictation software. please excuse any grammatical, word or spelling errors. Time with Patient: Less than 30
[2023-04-21] MEDS: SODIUM CHLORIDE 0.9% 1,000 ML IV SCH (13:30)
[2023-04-21 14:23] LABS: ABG Base Excess 4.1 mmol/L; ABG HCO3 28 mmol/L (21-25); ABG Oxygen Saturation 99.4 % (94-97); ABG PCO2 37 mmHg (35-45); ABG PH 7.49 (7.35-7.45); ABG PO2 126 mmHg (83-108); ABG TCO2 29 mmol/L (19-24)
[2023-04-21 14:41] LABS: Allen Test Performed? no
[2023-04-21] MEDS ORDERED: FUROSEMIDE 10 MG/ML 10 ML VIAL IV ONE (17:00)
[2023-04-21 17:15] LABS: Glucose,Whole Blood 189 mg/dL (70-110)
[2023-04-21] MEDS: HYDROCORTISONE SUCCINATE 100 MG/2 ML VIAL IV SCH (17:24)
[2023-04-21] MEDS: POTASSIUM CHLORIDE 20 MEQ in WATER FOR INJECTION 1 100ML.BAG IVPB SCH ×2 (18:25→20:45)
[2023-04-21 20:27] LABS: Glucose,Whole Blood 146 mg/dL (70-110)
[2023-04-21] MEDS: MEROPENEM 500 MG in SODIUM CHLORIDE 0.9% 100 ML IVPB SCH (20:44)
[2023-04-21] MEDS: ATORVASTATIN 10 MG TAB PO SCH (20:47)
--- NOTE | 2023-04-21 21:11 | P.PN ---
Subjective Progress Note Date: 04/21/23 (delayed charting seen at 1140) Patient is a 72 -year-old female with ESRD s/p renal transplant in 2016 (recent rejection) now requiring dialysis //tue, hypertension, dyslipidemia, and insulin-dependent diabetes mellitus who emergency department due to general weakness and burning with urination. Patient discharged home from [facility] on 04/02/23 and patient felt she was still too weak to independently care for herself and needed to return to rehab. In the emergenncy department she underwent an extenisve evaluation.Vitals were unremarkable.Labs were remarbale for hemoglobin of 8.9, sodium 134, bicarb 21, BUN 13, creatinine 1.87, Magnesium 1.7, and Troponin of 0.047 (repeat troponin flat). [facility] at 11:10 PM. We were notified of this admission at 7:49 AM on 04/04/23. During patient's workup, she was noted to develop significant encephalopathy/confusion. He was found to have blood cultures that were positive for Klebsiella and was subsequently started on Rocephin. ID was consulted and recommended exchange dialysis catheter with tip sent for culture. Catheter was removed on 04/10. Notably, patient's CellCept was discontinued after developing bacteremia, while her Prograf level was noted to be low and therefore Prograf was increased to 3 mg twice a day with repeat level pending. Repeat blood cultures were negative. On the evening of 04/17 showed decreased responsiveness and increasing O2 requirements. It was determined that she likely aspirated. She was subsequently transferred to the ICU and required intubation. Pulmonary critical care was consulted. Central and arterial lines were placed. She did require both Levophed and vasopressin. Antibiotics were increased to meropenem, vancomycin, and Eraxis. Vasopressors were weaned off by the evening of 04/19. Patient seen and examined at bedside. She is intermittently following commands. She continues to be on the ventilator. She is actively getting dialysis. Per nursing no other acute events overnight. Vital signs reviewed General: Ill appearing, mild distress, appears at stated age Cardiovascular: S1S2 reg, no murmur, positive posterior tibial pulse bilateral, Lungs: CTA bilateral, no rhonchi, no rales , no accessory muscle use Abdominal: soft, nontender to palpation, no guarding, no appreciable organ omegaly Ext: no gross muscle atrophy, no edema b/l lower extremities, no contractures Neuro: CN II-XI grossly intact, no focal neuro deficits Psych: Eyes open follows commands to close eyes and then to look out the window. Assessment/Plan: Klebsiella bacteremia, possibly related to hemodialysis catheter Sepsis Toxic metabolic encephalopathy Acute hypoxic respiratory failure possible underlying pneumonia -Infectious disease note reviewed: Worsening leukocytosis suspected secondary to steroids. Continue with when necessary him, Vanco, and Eraxis - off tacro and myco given infection - Decrease Solu-Cortef to 50 mg IV every 8 hours -Eraxis 100 mg IV daily D#4, meropenem 500 mg IV every 24 hours D#4 -Vancomycin with pharmacy dosing via trough D#4, monitor for toxicity with trough, cr will not be helpful as patient has ESRD - had been on rocephin 04/08-04/17 - Case discussed with Dr. Jay, attempt weaning today Acute exacerbation of systolic congestive heart failure, ejection fraction recovered to 50% with prior ejection fraction of 40% End-stage renal disease on hemodialysis Tuesday//Tuesday Status post donor kidney transplant in 2016 Anemia of end-stage renal disease Metabolic acidosis -Nephrology note reviewed: Hemodialysis today, Prograf and CellCept on hold, patient requires permanent hemodialysis catheter, Lasix 80 mg once today -Sodium bicarb 1300 mg by mouth 3 times daily - fluid mgt with HD - coreg 25 mg BID Diabetes mellitus type 2, -Continue with sliding scale insulin -Decrease Levemir to 5 units in the morning, DC fixed dose NovoLog, continue with sliding scale NovoLog -Follow blood sugars -A1c 6.4 Leukocytosis, reactive -Suspect worsening secondary to stress dose steroids -Follow CBC thrombocytopenia, likely secondary to consumption -Heparin antibody negative -Follow CBC Troponin elevation, chronic and secondary to ESRD: Not consistent with acute coronary syndrome - ASA 81mg daily - Atorvastatin 10 mg HS. Septic shock, resolved Chronic: HTN, HLD, Asthma, B/l LE wounds (presetn on admission) Imaging: Chest x-ray as reviewed by myself reveals tube in good position with right-sided pleural effusion and increased pulmonary vascular markings Data Review: Labs reviewed today include CBC and basic metabolic profile remarkable for white blood cell count 26.6, hemoglobin 7.8, platelets 61, potassium 3.1, BUN 28, creatinine 1.67 DVT prophylaxis: Anticipated discharge date: Pending Clinical Course Anticipated discharge place: Pending Clinical Course This dictation was prepared using [employer] voice recognition software. Though every attempt is made to correct errors during dictation some may still exist. Objective - Vital Signs Vital signs: Vital Signs Temp 97.1 F L 04/21/23 16:00 Pulse 74 04/21/23 19:00 Resp 24 04/21/23 19:00 BP 145/81 04/21/23 19:00 Pulse Ox 100 04/21/23 19:00 FiO2 40 04/21/23 13:49 Intake & Output 04/21/23 04/21/23 04/22/23 06:59 18:59 06:59 Intake Total 1210.853 716 116 Output Total 0 2205 Balance 1210.853 -1489 116 Weight 86.5 kg Intake: IV 532 272 16 Albumin Human 25% 50 ml 100 In Empty Bag 1 bag @ 50 mls/hr IVPB Q1H [facility] Rx#: [id number] Pressure Bag (0.9 Sodium 72 72 6 Chloride) Sodium Chloride 0.9% 1, 360 200 10 000 ml @ 50 mls/hr IV . Q20H [facility] Rx#:[id number] Intake, IV Titration 60.853 100 Amount Potassium Chloride 20 meq 100 In Water For Injection 1 100ml.bag @ 50 mls/hr IVPB Q2H [facility] Rx#: [id number] propofoL 1,000 mg In 60.853 Empty Bag 1 bag @ 15 MCG/ KG/MIN 6.736 mls/hr IV . [id number] [facility] Rx#:[id number] Tube Feeding 528 44 Hemodialysis 400 Other 90 Output: Urine 0 5 Stool 0 Hemodialysis 2200 Other: Voiding Method Indwelling Catheter Indwelling Catheter ABP, PAP, CO, CI - Last Documented Arterial Blood Pressure 176/67 - Labs CBC & Chem 7: 04/21/23 04:10 04/21/23 16:00 Labs: Abnormal Lab Results - Last 24 Hours (Table) 04/20/23 04/21/23 04/21/23 Range/Units 23:36 04:10 04:10 WBC 26.6 H (3.8-10.6) k/uL RBC 2.74 L (3.80-5.40) m/uL Hgb 7.8 L (11.4-16.0) gm/dL Hct 25.2 L (34.0-46.0) % RDW 18.3 H (11.5-15.5) % Plt Count 61 L (150-450) k/uL ABG pH (7.35-7.45) ABG pCO2 (35-45) mmHg ABG pO2 (83-108) mmHg ABG HCO3 (21-25) mmol/L ABG Total CO2 (19-24) mmol/L ABG O2 Saturation (94-97) % Potassium 3.1 L (3.5-5.1) mmol/L BUN 28 H (7-17) mg/dL Creatinine 1.67 H (0.52-1.04) mg/dL POC Glucose (mg/dL) 118 H (70-110) mg/dL 04/21/23 04/21/23 04/21/23 Range/Units 05:51 07:00 11:51 WBC (3.8-10.6) k/uL RBC (3.80-5.40) m/uL Hgb (11.4-16.0) gm/dL Hct (34.0-46.0) % RDW (11.5-15.5) % Plt Count (150-450) k/uL ABG pH 7.51 H (7.35-7.45) ABG pCO2 33 L (35-45) mmHg ABG pO2 143 H (83-108) mmHg ABG HCO3 26 H (21-25) mmol/L ABG Total CO2 27 H (19-24) mmol/L ABG O2 Saturation 99.6 H (94-97) % Potassium (3.5-5.1) mmol/L BUN (7-17) mg/dL Creatinine (0.52-1.04) mg/dL POC Glucose (mg/dL) 119 H 158 H (70-110) mg/dL 04/21/23 04/21/23 04/21/23 Range/Units 14:22 16:00 17:06 WBC (3.8-10.6) k/uL RBC (3.80-5.40) m/uL Hgb (11.4-16.0) gm/dL Hct (34.0-46.0) % RDW (11.5-15.5) % Plt Count (150-450) k/uL ABG pH 7.49 H (7.35-7.45) ABG pCO2 (35-45) mmHg ABG pO2 126 H (83-108) mmHg ABG HCO3 28 H (21-25) mmol/L ABG Total CO2 29 H (19-24) mmol/L ABG O2 Saturation 99.4 H (94-97) % Potassium 3.1 L (3.5-5.1) mmol/L BUN (7-17) mg/dL Creatinine (0.52-1.04) mg/dL POC Glucose (mg/dL) 189 H (70-110) mg/dL 04/21/23 Range/Units 20:25 WBC (3.8-10.6) k/uL RBC (3.80-5.40) m/uL Hgb (11.4-16.0) gm/dL Hct (34.0-46.0) % RDW (11.5-15.5) % Plt Count (150-450) k/uL ABG pH (7.35-7.45) ABG pCO2 (35-45) mmHg ABG pO2 (83-108) mmHg ABG HCO3 (21-25) mmol/L ABG Total CO2 (19-24) mmol/L ABG O2 Saturation (94-97) % Potassium (3.5-5.1) mmol/L BUN (7-17) mg/dL Creatinine (0.52-1.04) mg/dL POC Glucose (mg/dL) 146 H (70-110) mg/dL Microbiology - Last 24 Hours (Table) 04/18/23 11:00 Blood Culture - Preliminary Blood 04/18/23 15:16 Blood Culture - Preliminary Blood
[2023-04-22] MEDS: HYDROCORTISONE SUCCINATE 100 MG/2 ML VIAL IV SCH ×3 (00:25→15:58)
[2023-04-22 01:49] LABS: Glucose,Whole Blood 160 mg/dL (70-110)
[2023-04-22] MEDS: INSULIN ASPART (NovoLOG) 100 UNIT/ML VIAL SQ SCH ×8 (01:49→23:48)
[2023-04-22] MEDS: carvediloL 12.5 MG TAB PO SCH ×3 (07:11→17:12)
[2023-04-22] MEDS: INSULIN DETEMIR (LEVEMIR) 100 UNIT/ML SYR SQ SCH (07:11)
--- NOTE | 2023-04-22 07:30 | XR ---
EXAMINATION TYPE: XR chest 1V portable DATE OF EXAM: 04/22/2023 5:38 AM CLINICAL INDICATION:Female, 72 years old with history of follow up post intubation; basilar infiltrat es; [facility] COMPARISON: Chest radiographs from 04/21/2023. TECHNIQUE: XR chest 1V portable Frontal view of the chest. FINDINGS: Lungs/Pleura: Increased lucency in the lung apices. No evidence of focal consolidation or pneumothora x. Blunting of the costophrenic angles is present. Pulmonary vascularity: Unremarkable. Heart/mediastinum: Cardiomediastinal silhouette is enlarged and stable. Musculoskeletal: No acute osseous pathology. Other findings: None Lines/Tubes: Right central venous catheter with distal tip at the right atrium. Endotracheal tube and nasogastric tubes have been removed. IMPRESSION: 1. Removal of endotracheal nasogastric tubes, exam remains similar to prior. Bibasilar atelectasis w ith bilateral pleural effusions. 2. COPD changes.
[2023-04-22 08:32] LABS: Anisocytosis Slight; HCT 29.6 % (34.0-46.0); HGB 8.9 gm/dL (11.4-16.0); Hypochromasia Marked; MCH 28.1 pg (25.0-35.0); MCV 93.8 fL (80.0-100.0); Macrocytosis Slight; Mean Platelet Volume 12.2; Poikilocytosis Slight; RBC 3.16 m/uL (3.80-5.40); RDW 18.5 % (11.5-15.5); WBC 32.9 k/uL (3.8-10.6)
[2023-04-22 08:35] LABS: Platelet Count 46 k/uL (150-450)
[2023-04-22] MEDS: ASPIRIN 81 MG PO SCH ×2 (09:00→19:26)
[2023-04-22] MEDS: THIAMINE 100 MG TAB PO SCH ×2 (09:00→17:11)
[2023-04-22] MEDS: SODIUM BICARBONATE TAB 650 MG TAB PO SCH ×3 (09:00→17:07)
[2023-04-22] MEDS: FOLIC ACID 1 MG TAB PO SCH (09:00)
--- NOTE | 2023-04-22 09:41 | P.PN ---
Subjective Progress Note Date: 04/22/23 On today's evaluation of 04/19/2023, the patient is being seen for a follow-up. The patient remains intubated on a mechanical ventilator. She was hemodynamically unstable in septic shock and based on that, the patient was intubated and placed on a mechanical ventilator and she was started on fluids and pressors and aggressive resuscitation. She was brought into the intensive care unit yesterday. The patient is currently sedated on propofol which is running at 10 mcg/kg/m. She is sent has a mechanical ventilator. She is on assist-control mode at the rate of 14, tidal volume of 350, FiO2 of 60% with a PEEP of 10. The blood gas from today shows a pH of 7.44 episodes of 35 and pO2 of 146. The chest x-ray from today shows adequate positioning of the orotracheal tube. The patient has limited bibasilar pulmonary infiltrates and possibly some small pleural effusions. The patient also has a right subclavian triple-lumen catheter in place. Sputum samples were sent and there is also still pending for now. Blood cultures still pending for now. The patient is on broad-spectrum antibiotics and I started on a combination of meropenem, Eraxis and vancomycin yesterday pending further cultures. White cell count today's of 22.3. She is afebrile. Pressors have been weaned off. Norepinephrine is running at 0.04 mcg/kg/m and the patient is also on physiologic dose of vasopressin. The patient was also given stress dose hydrocortisone yesterday. Immunosuppression medications were discontinued. There is a drop in hemoglobin down to 6.9 without evidence of any GI bleed. The patient will be receiving a unit of packed RBC. On a separate note, the patient is undergoing hemodialysis today. The ends of 20 with a creatinine of 1.6. Potassium levels at 3.5. Sodium level is at 138. Echocardiogram was done and completed yesterday and the patient has a normal LV function. There is moderate LVH, LV cavity is small. There is moderate to severe mitral annular calcification and thickening. No evidence of any pericardial effusion. The patient was also started on enteral feeding for nutritional support. She is currently on vital high-protein at the rate of 37 mL an hour. In terms of her blood sugar control, she is on insulin drip running at 2.25 units an hour. on today's evaluation of 04/20/2023, I'm seeing the patient for a follow-up. This morning, the patient is sedated and she is on propofol running at 10 mcg/kg/m. She is quite comfortable. She is synchronous a mechanical ventilator. She remains on assist-control mode of mechanical ventilation she is currently at the rate of 14 with a tidal volume of 350 and PEEP of 10 with an FiO2 of 60%. I reviewed the patient's blood gas from today and that is improvement in oxygenation. The pH is at 7.5 with a pCO2 of 33 and pO2 of 169. The chest x-ray showing limited infiltrationThe lung bases bilaterally. Oral ch icken tube is in a good location. The patient has no significant orotracheal secretions at this point in time. In terms of her sepsis, the patient is still on broad-spectrum antibiotics in the echoes down to 27. The blood culture has been negative. The patient is afebrile. Her pressor requirements have dropped significantly and the patient is currently off vasopressin and she is only on norepinephrine at 0.01 mcg/kg/m. She underwent hemodialysis yesterday. Albumin is low and nephrology opted to give the patient IV albumin. This is essentially to support the blood pressure and get off the pressors. She is currently on enteral feeding for nutritional support and she is receiving vital high-protein at the rate of 44 mL an hour. An echo cardiograph showed a preserved LV function. In terms of her blood sugar control, she is on Levemir insulin at a dose of 15 units and a sliding scale coverage with NovoLog where she is receiving a protocol +2 units scheduled. Her hemoglobin is stable. During the course of her hospitalization, she recently units of packed RBC for a hemoglobin of 6.9 and hemoglobin is currently up to 8.8. On 04/21/2023, I'm seeing the patient for a follow-up. This morning, the patient is on propofol running at 10 mcg/kg/m which is giving low level of sedation. The patient was opening eyes spontaneously. She is following simple commands. She is profoundly weak and lethargic still. She is a process of undergoing hemodialysis. The goal of ultrafiltration is 1 L. The patient is on assist-control mode of mechanical ventilation at the rate of 14, tidal volume of 350, FiO2 of 40% with a PEEP of 5. The morning blood gases from today showed a pH of 7.51 with a pCO2 of 33 and pO2 of 143. Chest x-ray shows some atelectatic changes in the lung bases bilaterally. Orotracheal tube is in a good location. As far as her sepsis, the patient's echoes at elevated at 26. The patient remains on stress dose hydrocortisone. The patient is on broad-spectrum antibiotics including a combination of vancomycin, meropenem and Eraxis. The patient had Jeanie or sputum. Most likely colonization. Blood culture has been negative. The patient has a vancomycin trough level of 13.5. The patient is currently off pressors. She is receiving enteral feeding for nutritional support. She is currently on vital high-protein at the rate of 40 mL an hour. The rest of the blood work was noted. The hemoglobin is at 7.8. Urine is a 28 with a creatinine of 1.6 and a sodium level is at 139. The plan is to complete hemodialysis and assess the patient's ability to wean by checking weaning parameters and possibly given given a spontaneous breathing trial and if she ends up having adequate mentation and adequate weaning parameters. On 04/22/2023, the patient is extubated the patient is currently on room air oxygen pH is awake and alert and she is communicating. No signs of any respiratory distress and the breathing is nonlabored. The chest x-ray shows cardiomegaly and some atelectatic changes and small lung base bilaterally. The patient underwent hemodialysis yesterday with ultrafiltration of 1 L. She is calm and comfortable at this point in the breathing is nonlabored. At the same time, the patient is hemodynamically stable. She is currently off pressors. Her blood pressures improved significantly. No clear source of infection although the patient's white cell count continues to be elevated at 32.9. She is still covered with broad-spectrum antibiotics and she is currently on a combination of Eraxis, vancomycin and meropenem. Infectious diseases on the case. The sputum culture came back for possible Jeanie albicans. Blood cultures been negative for the time being and the patient is currently off pressors. IV fluids are currently of KVO. She has chronic heel ulcers, that are nondraining. She also has a dialysis cath in her right femoral vein. Her previous episodes of sepsis was related to Klebsiella pneumoniae and that was treated. Objective - Vital Signs Vital signs: Vital Signs Temp 98 F 04/22/23 04:00 Pulse 80 04/22/23 07:00 Resp 17 04/22/23 07:00 BP 156/88 04/22/23 07:00 Pulse Ox 98 04/22/23 08:22 FiO2 40 04/21/23 13:49 Intake & Output 04/21/23 04/22/23 04/22/23 18:59 06:59 18:59 Intake Total 716 471 13 Output Total 2205 15 0 Balance -1489 456 13 Weight 87.4 kg Intake: IV 272 371 13 Meropenem 500 mg In 100 Sodium Chloride 0.9% 100 ml @ 33.3 mls/hr IVPB Q24H [facility] Rx#:[id number] Potassium Chloride 20 meq 100 In Water For Injection 1 100ml.bag @ 50 mls/hr IVPB Q2H [facility] Rx#: [id number] Pressure Bag (0.9 Sodium 72 51 3 Chloride) Sodium Chloride 0.9% 1, 200 120 10 000 ml @ 50 mls/hr IV . Q20H [facility] Rx#:[id number] Intake, IV Titration 100 Amount Potassium Chloride 20 meq 100 In Water For Injection 1 100ml.bag @ 50 mls/hr IVPB Q2H [facility] Rx#: [id number] Tube Feeding 44 Hemodialysis 400 Output: Urine 5 15 0 Stool 0 Hemodialysis 2200 Other: Voiding Method Indwelling Catheter Indwelling Catheter ABP, PAP, CO, CI - Last Documented Arterial Blood Pressure 67/67 - Exam GENERAL EXAM: 72-year-old female, currently she is on room air oxygen and she is awake and alert and communicating, she is profoundly weak. HEAD: Normocephalic and atraumatic EYES: Normal reaction of pupils, equal size. NOSE: Clear with pink turbinates. THROAT: No erythema or exudates. NECK: No masses, no JVD. CHEST: No chest wall deformity. LUNGS: Equal air entry with no crackles, wheeze, rhonchi or dullness. No conversational dyspnea or accessory muscle use.. CVS: S1 and S2 normal with no audible murmur, regular rhythm. No extra heart sounds ABDOMEN: No hepatosplenomegaly, active bowel sounds, no guarding or rigidity. SPINE: No scoliosis or deformity SKIN: There is a decubitus pressure ulcer, along with bilateral heel ulcerations. Eschar noted on the heels bilaterally and the patient has the appropriate dressing and the boots CENTRAL NERVOUS SYSTEM: Sedated, no focal deficits, tone is weak in all 4 extremities. EXTREMITIES: There is no peripheral edema, clubbing, or cyanosis. Peripheral pulses are diminished bilaterally - Labs CBC & Chem 7: 04/22/23 07:17 04/21/23 16:00 Labs: Abnormal Lab Results - Last 24 Hours (Table) 04/21/23 04/21/23 04/21/23 Range/Units 11:51 14:22 16:00 WBC (3.8-10.6) k/uL RBC (3.80-5.40) m/uL Hgb (11.4-16.0) gm/dL Hct (34.0-46.0) % MCHC (31.0-37.0) g/dL RDW (11.5-15.5) % Plt Count (150-450) k/uL ABG pH 7.49 H (7.35-7.45) ABG pO2 126 H (83-108) mmHg ABG HCO3 28 H (21-25) mmol/L ABG Total CO2 29 H (19-24) mmol/L ABG O2 Saturation 99.4 H (94-97) % Potassium 3.1 L (3.5-5.1) mmol/L POC Glucose (mg/dL) 158 H (70-110) mg/dL 04/21/23 04/21/23 04/22/23 Range/Units 17:06 20:25 01:47 WBC (3.8-10.6) k/uL RBC (3.80-5.40) m/uL Hgb (11.4-16.0) gm/dL Hct (34.0-46.0) % MCHC (31.0-37.0) g/dL RDW (11.5-15.5) % Plt Count (150-450) k/uL ABG pH (7.35-7.45) ABG pO2 (83-108) mmHg ABG HCO3 (21-25) mmol/L ABG Total CO2 (19-24) mmol/L ABG O2 Saturation (94-97) % Potassium (3.5-5.1) mmol/L POC Glucose (mg/dL) 189 H 146 H 160 H (70-110) mg/dL 04/22/23 Range/Units 07:17 WBC 32.9 H (3.8-10.6) k/uL RBC 3.16 L (3.80-5.40) m/uL Hgb 8.9 L (11.4-16.0) gm/dL Hct 29.6 L (34.0-46.0) % MCHC 30.0 L (31.0-37.0) g/dL RDW 18.5 H (11.5-15.5) % Plt Count 46 L (150-450) k/uL ABG pH (7.35-7.45) ABG pO2 (83-108) mmHg ABG HCO3 (21-25) mmol/L ABG Total CO2 (19-24) mmol/L ABG O2 Saturation (94-97) % Potassium (3.5-5.1) mmol/L POC Glucose (mg/dL) (70-110) mg/dL Microbiology - Last 24 Hours (Table) 04/18/23 15:16 Blood Culture - Preliminary Blood 04/16/23 13:53 Blood Culture - Final Blood 04/18/23 11:00 Blood Culture - Preliminary Blood Assessment and Plan Assessment: Acute hypoxemic respiratory failure, recovered and the patient is currently on room air oxygen. The patient is sedated on 04/21/2023. Chest x-ray showing some atelectatic changes in the lung bases bilaterally. Sepsis and septic shock, responded , IV fluids are currently at KVO and the patient remains off pressors Klebsiella pneumonia bacteremia, originally felt to be related to infected hemodialysis catheter, which has been replaced. Catheter culture did not isolate any organisms. Repeat blood cultures have been negative so far Leukocytosis, white blood count remains elevated Anemia of chronic disease, drop in hemoglobin without evidence of any GI bleed and the patient will be receiving a unit of packed RBC Thrombocytopenia, likely related to sepsis End-stage renal disease with previous renal transplant, currently requiring hemodialysis on a Tuesday, , Tuesday schedule. Patient does take antirejection medication in the form of Prograf, CellCept, and oral prednisone. CellCept is on hold due to immunosuppression. Patient undergoing hemodialysis this morning History of systolic congestive heart failure, with a mildly reduced LV function estimated at 45% on recent echocardiogram done December, Diabetes mellitus 2, insulin-dependent, currently on Levemir insulin Benign essential hypertension Hyperlipidemia History of asthma, stable Bilateral lower extremity wounds, chronic heel wounds Plan: The hydrocortisone and placed the patient back on prednisone 10 mg by mouth daily which is maintenance regarding her chronic immunosuppression Continue the broad-spectrum antibiotics and the patient is currently on a combination of meropenem, Eraxis and vancomycin Negative blood cultures Echocardiogram shows a preserved LV function Increase oral intake Keep the patient off immunosuppressive agents change IV fluids to KVO Levemir 20 unit plus a sliding scale coverage The patient may need a permacath at the later stage. This was discussed with nephrology. Condition is critical and we'll continue to follow and will make further recommendations based on her progress. This evaluation was done in more than 30 minutes.
[2023-04-22 09:42] LABS: African American GFR (CKD) 47 (>60 ml/min/1.73 sqM); Anion Gap 6 mmol/L; Blood Urea Nitrogen 27 mg/dL (7-17); Calcium 8.2 mg/dL (8.4-10.2); Carbon Dioxide 25 mmol/L (22-30); Chloride 104 mmol/L (98-107); Glucose 172 mg/dL (74-99); Non-African American GFR(CKD) 40 (>60 ml/min/1.73 sqM); Potassium 3.8 mmol/L (3.5-5.1); Sodium 135 mmol/L (137-145)
[2023-04-22] MEDS: HYDROmorphone 0.5 MG/0.5 ML SYRINGE IVP PRN (09:48)
[2023-04-22] MEDS: PANTOPRAZOLE 40 MG/10 ML VIAL IVP SCH (09:50)
[2023-04-22] MEDS: ANIDULAFUNGIN 100 MG in SODIUM CHLORIDE 0.9% 100 ML IVPB SCH (09:50)
[2023-04-22] MEDS: NYSTATIN 100,000 UNIT/ML SUSP 500,000 UNIT/5 ML CUP PO SCH ×4 (09:50→22:22)
[2023-04-22] MEDS: predniSONE 10 MG TAB PO SCH (09:53)
[2023-04-22 09:56] LABS: Glucose,Whole Blood 174 mg/dL (70-110)
--- NOTE | 2023-04-22 10:53 | P.PN ---
Subjective Patient is seen in follow-up for end-stage renal disease. She is maintained on hemodialysis on Tuesday schedule. Off vasopressors. Extubated. Awake and alert. Vital signs stable. General: Resting in bed. HEENT: Normocephalic atraumatic. LUNGS: Scattered rhonchi. HEART: Rate and Rhythm are regular. ABDOMEN: No distention. EXTREMITITES: 1+ edema. Objective - Vital Signs Vital signs: Vital Signs Temp 98 F 04/22/23 04:00 Pulse 80 04/22/23 07:00 Resp 17 04/22/23 07:00 BP 156/88 04/22/23 07:00 Pulse Ox 98 04/22/23 08:22 FiO2 40 04/21/23 13:49 Intake & Output 04/21/23 04/22/23 04/22/23 18:59 06:59 18:59 Intake Total 716 471 13 Output Total 2205 15 0 Balance -1489 456 13 Weight 87.4 kg Intake: IV 272 371 13 Meropenem 500 mg In 100 Sodium Chloride 0.9% 100 ml @ 33.3 mls/hr IVPB Q24H [facility] Rx#:[id number] Potassium Chloride 20 meq 100 In Water For Injection 1 100ml.bag @ 50 mls/hr IVPB Q2H [facility] Rx#: [id number] Pressure Bag (0.9 Sodium 72 51 3 Chloride) Sodium Chloride 0.9% 1, 200 120 10 000 ml @ 50 mls/hr IV . Q20H [facility] Rx#:[id number] Intake, IV Titration 100 Amount Potassium Chloride 20 meq 100 In Water For Injection 1 100ml.bag @ 50 mls/hr IVPB Q2H [facility] Rx#: [id number] Tube Feeding 44 Hemodialysis 400 Output: Urine 5 15 0 Stool 0 Hemodialysis 2200 Other: Voiding Method Indwelling Catheter Indwelling Catheter ABP, PAP, CO, CI - Last Documented Arterial Blood Pressure 67/67 - Labs CBC & Chem 7: 04/22/23 07:17 04/22/23 07:17 Labs: Abnormal Lab Results - Last 24 Hours (Table) 04/21/23 04/21/23 04/21/23 Range/Units 11:51 14:22 16:00 WBC (3.8-10.6) k/uL RBC (3.80-5.40) m/uL Hgb (11.4-16.0) gm/dL Hct (34.0-46.0) % MCHC (31.0-37.0) g/dL RDW (11.5-15.5) % Plt Count (150-450) k/uL ABG pH 7.49 H (7.35-7.45) ABG pO2 126 H (83-108) mmHg ABG HCO3 28 H (21-25) mmol/L ABG Total CO2 29 H (19-24) mmol/L ABG O2 Saturation 99.4 H (94-97) % Sodium (137-145) mmol/L Potassium 3.1 L (3.5-5.1) mmol/L BUN (7-17) mg/dL Creatinine (0.52-1.04) mg/dL Glucose (74-99) mg/dL POC Glucose (mg/dL) 158 H (70-110) mg/dL Calcium (8.4-10.2) mg/dL 04/21/23 04/21/23 04/22/23 Range/Units 17:06 20:25 01:47 WBC (3.8-10.6) k/uL RBC (3.80-5.40) m/uL Hgb (11.4-16.0) gm/dL Hct (34.0-46.0) % MCHC (31.0-37.0) g/dL RDW (11.5-15.5) % Plt Count (150-450) k/uL ABG pH (7.35-7.45) ABG pO2 (83-108) mmHg ABG HCO3 (21-25) mmol/L ABG Total CO2 (19-24) mmol/L ABG O2 Saturation (94-97) % Sodium (137-145) mmol/L Potassium (3.5-5.1) mmol/L BUN (7-17) mg/dL Creatinine (0.52-1.04) mg/dL Glucose (74-99) mg/dL POC Glucose (mg/dL) 189 H 146 H 160 H (70-110) mg/dL Calcium (8.4-10.2) mg/dL 04/22/23 04/22/23 04/22/23 Range/Units 07:17 07:17 09:55 WBC 32.9 H (3.8-10.6) k/uL RBC 3.16 L (3.80-5.40) m/uL Hgb 8.9 L (11.4-16.0) gm/dL Hct 29.6 L (34.0-46.0) % MCHC 30.0 L (31.0-37.0) g/dL RDW 18.5 H (11.5-15.5) % Plt Count 46 L (150-450) k/uL ABG pH (7.35-7.45) ABG pO2 (83-108) mmHg ABG HCO3 (21-25) mmol/L ABG Total CO2 (19-24) mmol/L ABG O2 Saturation (94-97) % Sodium 135 L (137-145) mmol/L Potassium (3.5-5.1) mmol/L BUN 27 H (7-17) mg/dL Creatinine 1.32 H (0.52-1.04) mg/dL Glucose 172 H (74-99) mg/dL POC Glucose (mg/dL) 174 H (70-110) mg/dL Calcium 8.2 L (8.4-10.2) mg/dL Microbiology - Last 24 Hours (Table) 04/18/23 15:16 Blood Culture - Preliminary Blood 04/16/23 13:53 Blood Culture - Final Blood 04/18/23 11:00 Blood Culture - Preliminary Blood Assessment and Plan Plan: Assessment: 1. End-stage renal disease maintained on hemodialysis Tuesday schedule. Femoral dialysis catheter was placed 04/13/2023. 2. Status post donor renal transplant in 2016. 3. Chronic systolic CHF ejection fraction of 40% with mild to moderate mitral regurgitation and moderate tricuspid regurgitation. 4. Volume overload. Improved. 5. Anemia of chronic kidney disease. On Aranesp. s/p pRBCs. 6. Metabolic acidosis secondary to chronic kidney disease. On oral bicarb. Improved postdialysis. 7. Septic shock on antibiotics and vasopressor support. Blood culture positive for Klebsiella 04/07/2023 - permacath was removed and temporary dialysis catheter was placed in the groin 04/13/2023. 8. Hypomagnesemia from poor intake. Replaced. Better. 9. Hypokalemia from poor intake. Replaced. Better. Plan: Hemodialysis tomorrow. Challenge UF. Tolerated 2 L ultrafiltration yesterday. Prograf and CellCept held since 04/18/2023 - will resume in the next 2-3 days. Was on on high-dose IV steroids - now on oral prednisone. Patient will need permanent dialysis access - discussed with vascular surgery. Cleared by ID. Status post IV albumin given 04/20/2023. Status post IV Lasix given yesterday. No response in urine output.
[2023-04-22 11:17] LABS: Vancomycin,Random 17.2 ug/mL
[2023-04-22] MEDS ORDERED: VANCOMYCIN 1,500 MG in SODIUM CHLORIDE 0.9% 500 ML 500 ML IVPB ONE (12:00)
[2023-04-22] MEDS ORDERED: ZINC OXIDE PASTE (Z-GUARD) 1 APPLIC APPLIC TOPICAL PRN (12:20)
--- NOTE | 2023-04-22 12:27 | P.PN ---
Subjective Progress Note Date: 04/22/23 Principal diagnosis: Bacteremia Patient is a 72-year-old -[place] female with a comorbidities including diabetes mellitus hypertension hyperlipidemia end-stage renal disease on hemodialysis Tuesday via permacath patient presenting to the hospital with concerns for unable to care of self at home, patient did have blood cultures came back positive with gram-negative bacilli concerning for possible dialysis catheter infection. Dialysis catheter was removed 04/10/2023, the patient did have a new dialysis catheter placement on 04/13/2023, patient did have an episode of respiratory arrest night of 04/17/2023 requiring transfer to the ICU and intubation On today's evaluation that is 04/22/2023, the patient continues to be afebrile, the patient has been extubated and is breathing comfortably on room air patient is slightly lethargic and not good historian no vomiting diarrhea or any other changes reported by nursing staff White count is up to 32.9, creatinine is 1.32, blood and sputum cultures Jeanie which is likely colonizer Objective - Vital Signs Vital signs: Vital Signs Temp 98 F 04/22/23 04:00 Pulse 80 04/22/23 07:00 Resp 17 04/22/23 07:00 BP 156/88 04/22/23 07:00 Pulse Ox 98 04/22/23 08:22 FiO2 40 04/21/23 13:49 Intake & Output 04/21/23 04/22/23 04/22/23 18:59 06:59 18:59 Intake Total 716 471 13 Output Total 2205 15 0 Balance -1489 456 13 Weight 87.4 kg 87.4 kg Intake: IV 272 371 13 Meropenem 500 mg In 100 Sodium Chloride 0.9% 100 ml @ 33.3 mls/hr IVPB Q24H [facility] Rx#:[id number] Potassium Chloride 20 meq 100 In Water For Injection 1 100ml.bag @ 50 mls/hr IVPB Q2H [facility] Rx#: [id number] Pressure Bag (0.9 Sodium 72 51 3 Chloride) Sodium Chloride 0.9% 1, 200 120 10 000 ml @ 50 mls/hr IV . Q20H [facility] Rx#:[id number] Intake, IV Titration 100 Amount Potassium Chloride 20 meq 100 In Water For Injection 1 100ml.bag @ 50 mls/hr IVPB Q2H [facility] Rx#: [id number] Tube Feeding 44 Hemodialysis 400 Output: Urine 5 15 0 Stool 0 Hemodialysis 2200 Other: Voiding Method Indwelling Catheter Indwelling Catheter ABP, PAP, CO, CI - Last Documented Arterial Blood Pressure /67 - Exam GENERAL DESCRIPTION: Elderly female intubated on the vent RESPIRATORY SYSTEM: Unlabored breathing , decreased breath sounds at bases HEART: S1 S2 regular rate and rhythm ABDOMEN: Soft , no tenderness EXTREMITIES: Heel pressure ulcer unstageable but no redness - Labs CBC & Chem 7: 04/22/23 07:17 04/22/23 07:17 Labs: Abnormal Lab Results - Last 24 Hours (Table) 04/21/23 04/21/23 04/21/23 Range/Units 14:22 16:00 17:06 WBC (3.8-10.6) k/uL RBC (3.80-5.40) m/uL Hgb (11.4-16.0) gm/dL Hct (34.0-46.0) % MCHC (31.0-37.0) g/dL RDW (11.5-15.5) % Plt Count (150-450) k/uL ABG pH 7.49 H (7.35-7.45) ABG pO2 126 H (83-108) mmHg ABG HCO3 28 H (21-25) mmol/L ABG Total CO2 29 H (19-24) mmol/L ABG O2 Saturation 99.4 H (94-97) % Sodium (137-145) mmol/L Potassium 3.1 L (3.5-5.1) mmol/L BUN (7-17) mg/dL Creatinine (0.52-1.04) mg/dL Glucose (74-99) mg/dL POC Glucose (mg/dL) 189 H (70-110) mg/dL Calcium (8.4-10.2) mg/dL 04/21/23 04/22/23 04/22/23 Range/Units 20:25 01:47 07:17 WBC (3.8-10.6) k/uL RBC (3.80-5.40) m/uL Hgb (11.4-16.0) gm/dL Hct (34.0-46.0) % MCHC (31.0-37.0) g/dL RDW (11.5-15.5) % Plt Count (150-450) k/uL ABG pH (7.35-7.45) ABG pO2 (83-108) mmHg ABG HCO3 (21-25) mmol/L ABG Total CO2 (19-24) mmol/L ABG O2 Saturation (94-97) % Sodium 135 L (137-145) mmol/L Potassium (3.5-5.1) mmol/L BUN 27 H (7-17) mg/dL Creatinine 1.32 H (0.52-1.04) mg/dL Glucose 172 H (74-99) mg/dL POC Glucose (mg/dL) 146 H 160 H (70-110) mg/dL Calcium 8.2 L (8.4-10.2) mg/dL 04/22/23 04/22/23 Range/Units 07:17 09:55 WBC 32.9 H (3.8-10.6) k/uL RBC 3.16 L (3.80-5.40) m/uL Hgb 8.9 L (11.4-16.0) gm/dL Hct 29.6 L (34.0-46.0) % MCHC 30.0 L (31.0-37.0) g/dL RDW 18.5 H (11.5-15.5) % Plt Count 46 L (150-450) k/uL ABG pH (7.35-7.45) ABG pO2 (83-108) mmHg ABG HCO3 (21-25) mmol/L ABG Total CO2 (19-24) mmol/L ABG O2 Saturation (94-97) % Sodium (137-145) mmol/L Potassium (3.5-5.1) mmol/L BUN (7-17) mg/dL Creatinine (0.52-1.04) mg/dL Glucose (74-99) mg/dL POC Glucose (mg/dL) 174 H (70-110) mg/dL Calcium (8.4-10.2) mg/dL Microbiology - Last 24 Hours (Table) 04/18/23 15:16 Blood Culture - Preliminary Blood 04/16/23 13:53 Blood Culture - Final Blood 04/18/23 11:00 Blood Culture - Preliminary Blood Assessment and Plan (1) Bacteremia Current Visit: Yes Status: Acute Code(s): R78.81 - BACTEREMIA SNOMED Code(s): 1968072 (2) Unstageable pressure ulcer of left heel Current Visit: Yes Status: Acute Code(s): L89.620 - PRESSURE ULCER OF LEFT HEEL, UNSTAGEABLE SNOMED Code(s): 50784403954100008 Plan: 1-Patient with gram-negative bacteremia high clinical suspicion for possible permacatheter infection in this patient with no evidence of any abdominal tenderness on Examination and urine has been negative patient did have bilateral heel pressure ulcer with some necrotic tissue but no significant redness or foul-smelling drainage was noticed 2-patient did have significant change in her clinical condition, patient went into respiratory distress requiring intubation and transferred to the ICU, blood cultures so far negative and sputum cultures growing Jeanie likely colonizer. 3- patient to continue with meropenem and Eraxis however as no evidence of MRSA infection and vancomycin will be discontinued 4-worsening leukocytosis likely steroid related and no evidence of any worsening clinical condition and will be monitored closely Dictation was produced using [employer] dictation software. please excuse any grammatical, word or spelling errors.
[2023-04-22 13:02] LABS: Glucose,Whole Blood 178 mg/dL (70-110)
[2023-04-22] MEDS: NOREPINEPHRINE 32 MG in SODIUM CHLORIDE 0.9% 218 ML IV SCH (13:12)
[2023-04-22] MEDS: SODIUM CHLORIDE 0.9% 1,000 ML IV SCH (13:17)
[2023-04-22] MEDS: amLODIPine 5 MG TAB PO SCH (15:59)
[2023-04-22] MEDS: TACROLIMUS 1 MG CAP PO SCH (15:59)
[2023-04-22] MEDS: TORSEMIDE 20 MG TAB PO SCH (16:00)
[2023-04-22 16:02] LABS: Glucose,Whole Blood 99 mg/dL (70-110)
[2023-04-22] MEDS ORDERED: Potassium Replacement Protocol 1 EACH MISC MISCELLANE PRN (16:45)
[2023-04-22] MEDS: POTASSIUM CHLORIDE 10 MEQ in WATER FOR INJECTION 1 100ML.BAG IVPB SCH ×2 (17:11→19:59)
--- NOTE | 2023-04-22 17:23 | P.PN ---
Subjective Progress Note Date: 04/22/23 Patient is a 72 -year-old female with ESRD s/p renal transplant in 2016 (recent rejection) now requiring dialysis //tue, hypertension, dyslipidemia, and insulin-dependent diabetes mellitus who emergency department due to general weakness and burning with urination. Patient discharged home from [facility] on 04/02/23 and patient felt she was still too weak to independently care for herself and needed to return to rehab. In the emergenncy department she underwent an extenisve evaluation.Vitals were unremarkable.Labs were remarbale for hemoglobin of 8.9, sodium 134, bicarb 21, BUN 13, creatinine 1.87, Magnesium 1.7, and Troponin of 0.047 (repeat troponin flat). [facility]10 [facility]. We were notified of this admission at 7:49 AM on 04/04/23. During patient's workup, she was noted to develop significant encephalopathy/confusion. He was found to have blood cultures that were positive for Klebsiella and was subsequently started on Rocephin. ID was consulted and recommended exchange dialysis catheter with tip sent for culture. Catheter was removed on 04/10. Notably, patient's CellCept was discontinued after developing bacteremia, while her Prograf level was noted to be low and therefore Prograf was increased to 3 mg twice a day with repeat level pending. Repeat blood cultures were negative. On the evening of 04/17 showed decreased responsiveness and increasing O2 requirements. It was de termined that she likely aspirated. She was subsequently transferred to the ICU and required intubation. Pulmonary critical care was consulted. Central and arterial lines were placed. She did require both Levophed and vasopressin. Antibiotics were increased to meropenem, vancomycin, and Eraxis. Vasopressors were weaned off by the evening of 04/19. She was successfully extubated on 04/21/23. Patient seen and examined at bedside. She remains confused. She denies any pain or shortness of breath. D/W nursing and plan will be for HD cath in AM if plt stable. Vital signs reviewed General: Ill appearing, no distress, appears at stated age Cardiovascular: S1S2 reg, no murmur, positive posterior tibial pulse bilateral, Lungs: Decreased bs bilateral, no rhonchi, no rales , no accessory muscle use Abdominal: soft, nontender to palpation, no guarding, no appreciable organomegaly Ext: no gross muscle atrophy, no edema b/l lower extremities, no contractures Neuro: CN II-XI grossly intact, no focal neuro deficits Psych: awake and following commands Assessment/Plan: Klebsiella bacteremia, possibly related to hemodialysis catheter Sepsis Toxic metabolic encephalopathy Acute hypoxic respiratory failure possible underlying pneumonia -ID note reviewed: Continue meropenem and Eraxis, discontinue vancomycin - off tacro and myco given infection - agree with disconitnuation of solu-cortef -Eraxis 100 mg IV daily D#5, meropenem 500 mg IV every 24 hours D#5 - off vanco - had been on rocephin 04/08-04/17 Acute exacerbation of systolic congestive heart failure, ejection fraction recovered to 50% with prior ejection fraction of 40% End-stage renal disease on hemodialysis Tuesday//Tuesday Status post donor kidney transplant in 2016 Anemia of end-stage renal disease Metabolic acidosis - nehrology note reviewed- needs perm HD cath -Sodium bicarb 1300 mg by mouth 3 times daily - fluid mgt with HD - coreg 25 mg BID Diabetes mellitus type 2, -Continue with sliding scale insulin -D/C Levemir, continue with sliding scale NovoLog -Follow blood sugars -A1c 6.4 Leukocytosis, reactive -Suspect worsening secondary to stress dose steroids -Follow CBC - steroids d/c on 04/22/23 thrombocytopenia, likely secondary to consumption -Heparin antibody negative -Follow CBC Troponin elevation, chronic and secondary to ESRD: Not consistent with acute coronary syndrome - ASA 81mg daily - Atorvastatin 10 mg HS. Septic shock, resolved Chronic: HTN, HLD, Asthma, B/l LE wounds (presetn on admission) Imaging: Chest x-ray as reviewed by myself reveals tube in good position with right-sided pleural effusion and increased pulmonary vascular markings Data Review: Labs reviewed and remarkable for white blood cell count 32.9, hemoglobin 89, platelets of 46. DVT prophylaxis: SCDS due to low plts Anticipated discharge date: Pending Clinical Course Anticipated discharge place: Pending Clinical Course This dictation was prepared using [employer] voice recognition software. Though every attempt is made to correct errors during dictation some may still exist. Objective - Vital Signs Vital signs: Vital Signs Temp 97.7 F 04/22/23 16:00 Pulse 80 04/22/23 17:00 Resp 12 04/22/23 17:00 BP 139/75 04/22/23 17:00 Pulse Ox 99 04/22/23 17:00 FiO2 40 04/21/23 13:49 Intake & Output 04/21/23 04/22/23 04/22/23 18:59 06:59 18:59 Intake Total 716 471 673 Output Total 2205 15 0 Balance -1489 456 673 Weight 87.4 kg 87.4 kg Intake: IV 272 371 323 Anidulafungin 100 mg In 100 Sodium Chloride 0.9% 100 ml @ 84 mls/hr IVPB DAILY [facility] Rx#:[id number] Invasive Line 1 30 Invasive Line 6 90 Meropenem 500 mg In 100 Sodium Chloride 0.9% 100 ml @ 33.3 mls/hr IVPB Q24H [facility] Rx#:[id number] Potassium Chloride 20 meq 100 In Water For Injection 1 100ml.bag @ 50 mls/hr IVPB Q2H [facility] Rx#: [id number] Pressure Bag (0.9 Sodium 72 51 93 Chloride) Sodium Chloride 0.9% 1, 200 120 10 000 ml @ 50 mls/hr IV . Q20H [facility] Rx#:[id number] Intake, IV Titration 100 Amount Potassium Chloride 20 meq 100 In Water For Injection 1 100ml.bag @ 50 mls/hr IVPB Q2H [facility] Rx#: [id number] Oral 350 Tube Feeding 44 Hemodialysis 400 Output: Urine 5 15 0 Stool 0 Hemodialysis 2200 Other: Voiding Method Indwelling Catheter Indwelling Catheter # Bowel Movements 1 ABP, PAP, CO, CI - Last Documented Arterial Blood Pressure 67/67 - Labs CBC & Chem 7: 04/22/23 07:17 04/22/23 07:17 Labs: Abnormal Lab Results - Last 24 Hours (Table) 04/21/23 04/21/23 04/21/23 Range/Units 16:00 17:06 20:25 WBC (3.8-10.6) k/uL RBC (3.80-5.40) m/uL Hgb (11.4-16.0) gm/dL Hct (34.0-46.0) % MCHC (31.0-37.0) g/dL RDW (11.5-15.5) % Plt Count (150-450) k/uL Sodium (137-145) mmol/L Potassium 3.1 L (3.5-5.1) mmol/L BUN (7-17) mg/dL Creatinine (0.52-1.04) mg/dL Glucose (74-99) mg/dL POC Glucose (mg/dL) 189 H 146 H (70-110) mg/dL Calcium (8.4-10.2) mg/dL 04/22/23 04/22/23 04/22/23 Range/Units 01:47 07:17 07:17 WBC 32.9 H (3.8-10.6) k/uL RBC 3.16 L (3.80-5.40) m/uL Hgb 8.9 L (11.4-16.0) gm/dL Hct 29.6 L (34.0-46.0) % MCHC 30.0 L (31.0-37.0) g/dL RDW 18.5 H (11.5-15.5) % Plt Count 46 L (150-450) k/uL Sodium 135 L (137-145) mmol/L Potassium (3.5-5.1) mmol/L BUN 27 H (7-17) mg/dL Creatinine 1.32 H (0.52-1.04) mg/dL Glucose 172 H (74-99) mg/dL POC Glucose (mg/dL) 160 H (70-110) mg/dL Calcium 8.2 L (8.4-10.2) mg/dL 04/22/23 04/22/23 Range/Units 09:55 13:01 WBC (3.8-10.6) k/uL RBC (3.80-5.40) m/uL Hgb (11.4-16.0) gm/dL Hct (34.0-46.0) % MCHC (31.0-37.0) g/dL RDW (11.5-15.5) % Plt Count (150-450) k/uL Sodium (137-145) mmol/L Potassium (3.5-5.1) mmol/L BUN (7-17) mg/dL Creatinine (0.52-1.04) mg/dL Glucose (74-99) mg/dL POC Glucose (mg/dL) 174 H 178 H (70-110) mg/dL Calcium (8.4-10.2) mg/dL Microbiology - Last 24 Hours (Table) 04/18/23 15:16 Blood Culture - Preliminary Blood 04/16/23 13:53 Blood Culture - Final Blood 04/18/23 11:00 Blood Culture - Preliminary Blood
[2023-04-22] MEDS: MEROPENEM 500 MG in SODIUM CHLORIDE 0.9% 100 ML IVPB SCH (20:03)
[2023-04-22] MEDS: ATORVASTATIN 10 MG TAB PO SCH (21:22)
[2023-04-22 23:48] LABS: Glucose,Whole Blood 85 mg/dL (70-110)
[2023-04-23] MEDS: NOREPINEPHRINE 32 MG in SODIUM CHLORIDE 0.9% 218 ML IV SCH (03:59)
[2023-04-23] MEDS: INSULIN ASPART (NovoLOG) 100 UNIT/ML VIAL SQ SCH ×5 (04:09→20:00)
[2023-04-23 04:11] LABS: Glucose,Whole Blood 83 mg/dL (70-110)
[2023-04-23 07:00] LABS: Anisocytosis Slight; HCT 28.8 % (34.0-46.0); Hypochromasia Marked; MCH 29.2 pg (25.0-35.0); MCHC 31.1 g/dL (31.0-37.0); MCV 93.6 fL (80.0-100.0); Macrocytosis Slight; Mean Platelet Volume 12.3; Poikilocytosis Slight; RBC 3.07 m/uL (3.80-5.40); RDW 18.6 % (11.5-15.5); WBC 23.2 k/uL (3.8-10.6)
[2023-04-23] MEDS: carvediloL 12.5 MG TAB PO SCH (07:02)
[2023-04-23 07:04] LABS: Platelet Count 65 k/uL (150-450)
[2023-04-23 07:33] LABS: African American GFR (CKD) 35 (>60 ml/min/1.73 sqM); Anion Gap 5 mmol/L; Blood Urea Nitrogen 32 mg/dL (7-17); Calcium 8.2 mg/dL (8.4-10.2); Carbon Dioxide 27 mmol/L (22-30); Chloride 104 mmol/L (98-107); Glucose 88 mg/dL (74-99); Non-African American GFR(CKD) 30 (>60 ml/min/1.73 sqM); Potassium 3.8 mmol/L (3.5-5.1); Sodium 136 mmol/L (137-145)
[2023-04-23 07:59] LABS: Glucose,Whole Blood 108 mg/dL (70-110)
[2023-04-23] MEDS: THIAMINE 100 MG TAB PO SCH ×2 (08:55→17:51)
[2023-04-23] MEDS: predniSONE 10 MG TAB PO SCH (08:56)
[2023-04-23] MEDS: PANTOPRAZOLE 40 MG/10 ML VIAL IVP SCH (08:56)
[2023-04-23] MEDS: NYSTATIN 100,000 UNIT/ML SUSP 500,000 UNIT/5 ML CUP PO SCH ×4 (08:56→21:11)
[2023-04-23] MEDS: SODIUM BICARBONATE TAB 650 MG TAB PO SCH ×2 (08:56→13:52)
[2023-04-23] MEDS: ANIDULAFUNGIN 100 MG in SODIUM CHLORIDE 0.9% 100 ML IVPB SCH (08:56)
[2023-04-23] MEDS: SODIUM CHLORIDE 0.9% 1,000 ML IV SCH (08:59)
--- NOTE | 2023-04-23 09:23 | XR ---
EXAMINATION TYPE: XR chest 1V portable DATE OF EXAM: 04/23/2023 Comparison: 04/22/2023 Clinical History: 72-year-old female PNA Findings: Leftward patient rotation altered mental cardia mediastinal contours. Hardware alignment size. Diffus e interstitial density. Focal bibasilar opacities persist. Possible trace effusions. Right subclavian CVC tip in the lower right atrium. Impression: 1. Limited, rotated exam. Interstitial density persists, possible pulmonary vascular congestion. 2. Small pleural effusions with adjacent atelectasis and/or consolidation also persists.
[2023-04-23] MEDS: MIDODRINE 5 MG TAB PO PRN ×3 (09:51→21:11)
--- NOTE | 2023-04-23 09:54 | P.PN ---
Subjective Progress Note Date: 04/23/23 On today's evaluation of 04/19/2023, the patient is being seen for a follow-up. The patient remains intubated on a mechanical ventilator. She was hemodynamically unstable in septic shock and based on that, the patient was intubated and placed on a mechanical ventilator and she was started on fluids and pressors and aggressive resuscitation. She was brought into the intensive care unit yesterday. The patient is currently sedated on propofol which is running at 10 mcg/kg/m. She is sent has a mechanical ventilator. She is on assist-control mode at the rate of 14, tidal volume of 350, FiO2 of 60% with a PEEP of 10. The blood gas from today shows a pH of 7.44 episodes of 35 and pO2 of 146. The chest x-ray from today shows adequate positioning of the orotracheal tube. The patient has limited bibasilar pulmonary infiltrates and possibly some small pleural effusions. The patient also has a right subclavian triple-lumen catheter in place. Sputum samples were sent and there is also still pending for now. Blood cultures still pending for now. The patient is on broad-spectrum antibiotics and I started on a combination of meropenem, Eraxis and vancomycin yesterday pending further cultures. White cell count today's of 22.3. She is afebrile. Pressors have been weaned off. Norepinephrine is running at 0.04 mcg/kg/m and the patient is also on physiologic dose of vasopressin. The patient was also given stress dose hydrocortisone yesterday. Immunosuppression medications were discontinued. There is a drop in hemoglobin down to 6.9 without evidence of any GI bleed. The patient will be receiving a unit of packed RBC. On a separate note, the patient is undergoing hemodialysis today. The ends of 20 with a creatinine of 1.6. Potassium levels at 3.5. Sodium level is at 138. Echocardiogram was done and completed yesterday and the patient has a normal LV function. There is moderate LVH, LV cavity is small. There is moderate to severe mitral annular calcification and thickening. No evidence of any pericardial effusion. The patient was also started on enteral feeding for nutritional support. She is currently on vital high-protein at the rate of 37 mL an hour. In terms of her blood sugar control, she is on insulin drip running at 2.25 units an hour. on today's evaluation of 04/20/2023, I'm seeing the patient for a follow-up. This morning, the patient is sedated and she is on propofol running at 10 mcg/kg/m. She is quite comfortable. She is synchronous a mechanical ventilator. She remains on assist-control mode of mechanical ventilation she is currently at the rate of 14 with a tidal volume of 350 and PEEP of 10 with an FiO2 of 60%. I reviewed the patient's blood gas from today and that is improvement in oxygenation. The pH is at 7.5 with a pCO2 of 33 and pO2 of 169. The chest x-ray showing limited infiltrationThe lung bases bilaterally. Oral ch icken tube is in a good location. The patient has no significant orotracheal secretions at this point in time. In terms of her sepsis, the patient is still on broad-spectrum antibiotics in the echoes down to 27. The blood culture has been negative. The patient is afebrile. Her pressor requirements have dropped significantly and the patient is currently off vasopressin and she is only on norepinephrine at 0.01 mcg/kg/m. She underwent hemodialysis yesterday. Albumin is low and nephrology opted to give the patient IV albumin. This is essentially to support the blood pressure and get off the pressors. She is currently on enteral feeding for nutritional support and she is receiving vital high-protein at the rate of 44 mL an hour. An echo cardiograph showed a preserved LV function. In terms of her blood sugar control, she is on Levemir insulin at a dose of 15 units and a sliding scale coverage with NovoLog where she is receiving a protocol +2 units scheduled. Her hemoglobin is stable. During the course of her hospitalization, she recently units of packed RBC for a hemoglobin of 6.9 and hemoglobin is currently up to 8.8. On 04/21/2023, I'm seeing the patient for a follow-up. This morning, the patient is on propofol running at 10 mcg/kg/m which is giving low level of sedation. The patient was opening eyes spontaneously. She is following simple commands. She is profoundly weak and lethargic still. She is a process of undergoing hemodialysis. The goal of ultrafiltration is 1 L. The patient is on assist-control mode of mechanical ventilation at the rate of 14, tidal volume of 350, FiO2 of 40% with a PEEP of 5. The morning blood gases from today showed a pH of 7.51 with a pCO2 of 33 and pO2 of 143. Chest x-ray shows some atelectatic changes in the lung bases bilaterally. Orotracheal tube is in a good location. As far as her sepsis, the patient's echoes at elevated at 26. The patient remains on stress dose hydrocortisone. The patient is on broad-spectrum antibiotics including a combination of vancomycin, meropenem and Eraxis. The patient had Jeanie or sputum. Most likely colonization. Blood culture has been negative. The patient has a vancomycin trough level of 13.5. The patient is currently off pressors. She is receiving enteral feeding for nutritional support. She is currently on vital high-protein at the rate of 40 mL an hour. The rest of the blood work was noted. The hemoglobin is at 7.8. Urine is a 28 with a creatinine of 1.6 and a sodium level is at 139. The plan is to complete hemodialysis and assess the patient's ability to wean by checking weaning parameters and possibly given given a spontaneous breathing trial and if she ends up having adequate mentation and adequate weaning parameters. On 04/22/2023, the patient is extubated the patient is currently on room air oxygen pH is awake and alert and she is communicating. No signs of any respiratory distress and the breathing is nonlabored. The chest x-ray shows cardiomegaly and some atelectatic changes and small lung base bilaterally. The patient underwent hemodialysis yesterday with ultrafiltration of 1 L. She is calm and comfortable at this point in the breathing is nonlabored. At the same time, the patient is hemodynamically stable. She is currently off pressors. Her blood pressures improved significantly. No clear source of infection although the patient's white cell count continues to be elevated at 32.9. She is still covered with broad-spectrum antibiotics and she is currently on a combination of Eraxis, vancomycin and meropenem. Infectious diseases on the case. The sputum culture came back for possible Jeanie albicans. Blood cultures been negative for the time being and the patient is currently off pressors. IV fluids are currently of KVO. She has chronic heel ulcers, that are nondraining. She also has a dialysis cath in her right femoral vein. Her previous episodes of sepsis was related to Klebsiella pneumoniae and that was treated. On 04/24/2023, the patient is being seen for a follow-up. She is on room air oxygen. She is currently comfortable. He is undergoing hemodialysis. No significant ultrafiltration to be done today as the patient became hypotensive. She is tolerating hemodialysis of this point in time. She has profound motor weakness in all 4 extremities. No focal neurological deficits. No fever. No pressors. The echoes down to 23. Hemoglobin stable at 9.0. Sodium levels of 136, BUN is at 32 with a creatinine of 1.67. Chest x-ray from today shows cardiomegaly, mild pulmonary vascular congestion, atelectatic change in lung bases bilaterally. IV fluids are currently at KVO. Objective - Vital Signs Vital signs: Vital Signs Temp 98.1 F 04/23/23 04:00 Pulse 86 04/23/23 07:00 Resp 17 04/23/23 07:00 BP 125/69 04/23/23 07:00 Pulse Ox 97 04/23/23 07:00 FiO2 40 04/21/23 13:49 Intake & Output 04/22/23 04/23/23 04/23/23 18:59 06:59 18:59 Intake Total 673 300 Output Total 0 0 0 Balance 673 300 0 Weight 87.4 kg 87.7 kg Intake: IV 323 300 Anidulafungin 100 mg In 100 Sodium Chloride 0.9% 100 ml @ 84 mls/hr IVPB DAILY [facility] Rx#:[id number] Invasive Line 1 30 Invasive Line 6 90 Meropenem 500 mg In 100 Sodium Chloride 0.9% 100 ml @ 33.3 mls/hr IVPB Q24H [facility] Rx#:[id number] Potassium Chloride 10 meq 200 In Water For Injection 1 100ml.bag @ 100 mls/hr IVPB Q1H [facility] Rx#: [id number] Pressure Bag (0.9 Sodium 93 Chloride) Sodium Chloride 0.9% 1, 10 000 ml @ 50 mls/hr IV . Q20H [facility] Rx#:[id number] Oral 350 0 Output: Urine 0 0 0 Stool 0 Other: # Voids 0 # Bowel Movements 1 ABP, PAP, CO, CI - Last Documented Arterial Blood Pressure 67/67 - Exam GENERAL EXAM: 72-year-old female, currently she is on room air oxygen and she is awake and alert and communicating, she is profoundly weak. HEAD: Normocephalic and atraumatic EYES: Normal reaction of pupils, equal size. NOSE: Clear with pink turbinates. THROAT: No erythema or exudates. NECK: No masses, no JVD. CHEST: No chest wall deformity. LUNGS: Equal air entry with no crackles, wheeze, rhonchi or dullness. No conversational dyspnea or accessory muscle use.. CVS: S1 and S2 normal with no audible murmur, regular rhythm. No extra heart sounds ABDOMEN: No hepatosplenomegaly, active bowel sounds, no guarding or rigidity. SPINE: No scoliosis or deformity SKIN: There is a decubitus pressure ulcer, along with bilateral heel ulcerations. Eschar noted on the heels bilaterally and the patient has the appropriate dressing and the boots CENTRAL NERVOUS SYSTEM: Sedated, no focal deficits, tone is weak in all 4 extremities. EXTREMITIES: There is no peripheral edema, clubbing, or cyanosis. Peripheral pulses are diminished bilaterally - Labs CBC & Chem 7: 04/23/23 06:52 04/23/23 06:52 Labs: Abnormal Lab Results - Last 24 Hours (Table) 04/22/23 04/22/23 04/23/23 Range/Units 09:55 13:01 06:52 WBC 23.2 H (3.8-10.6) k/uL RBC 3.07 L (3.80-5.40) m/uL Hgb 9.0 L (11.4-16.0) gm/dL Hct 28.8 L (34.0-46.0) % RDW 18.6 H (11.5-15.5) % Plt Count 65 L (150-450) k/uL Sodium (137-145) mmol/L BUN (7-17) mg/dL Creatinine (0.52-1.04) mg/dL POC Glucose (mg/dL) 174 H 178 H (70-110) mg/dL Calcium (8.4-10.2) mg/dL 04/23/23 Range/Units 06:52 WBC (3.8-10.6) k/uL RBC (3.80-5.40) m/uL Hgb (11.4-16.0) gm/dL Hct (34.0-46.0) % RDW (11.5-15.5) % Plt Count (150-450) k/uL Sodium 136 L (137-145) mmol/L BUN 32 H (7-17) mg/dL Creatinine 1.67 H (0.52-1.04) mg/dL POC Glucose (mg/dL) (70-110) mg/dL Calcium 8.2 L (8.4-10.2) mg/dL Microbiology - Last 24 Hours (Table) 04/18/23 15:16 Blood Culture - Preliminary Blood Assessment and Plan Assessment: Acute hypoxemic respiratory failure, recovered and the patient is currently on room air oxygen. The patient is sedated on 04/21/2023. Chest x-ray showing some atelectatic changes in the lung bases bilaterally. The patient is currently on room air oxygen. Sepsis and septic shock, responded , IV fluids are currently at KVO and the patient remains off pressors Klebsiella pneumonia bacteremia, originally felt to be related to infected hemodialysis catheter, which has been replaced. Catheter culture did not isolate any organisms. Repeat blood cultures have been negative so far Leukocytosis, white blood count remains elevated, improving Anemia of chronic disease, drop in hemoglobin without evidence of any GI bleed and the patient will be receiving a unit of packed RBC, hemoglobin is stable at 9.0 Thrombocytopenia, likely related to sepsis End-stage renal disease with previous renal transplant, currently requiring hemodialysis on a Tuesday, , Tuesday schedule. Patient does take antirejection medication in the form of Prograf, CellCept, and oral prednisone. CellCept is on hold due to immunosuppression. Patient undergoing hemodialysis on a daily basis History of systolic congestive heart failure, with a mildly reduced LV function estimated at 45% on recent echocardiogram done December, Diabetes mellitus 2, insulin-dependent, currently on Levemir insulin Benign essential hypertension Hyperlipidemia History of asthma, stable Bilateral lower extremity wounds, chronic heel wounds Plan: RA prednisone 10 mg by mouth daily which is maintenance regarding her chronic immunosuppression Continue the broad-spectrum antibiotics and the patient is currently on a combination of meropenem, Eraxis and vancomycin Negative blood cultures Echocardiogram shows a preserved LV function Increase oral intake Keep the patient off immunosuppressive agents change IV fluids to KVO Insulin sliding scale coverage The patient may need a permacath at the later stage. This was discussed with nephrology. Condition is critical and we'll continue to follow and will make further recommendations based on her progress.
[2023-04-23] MEDS ORDERED: ALTEPLASE 2 MG VIAL (CATHFLO) MISCELLANE ONE (11:00)
[2023-04-23 11:21] LABS: Glucose,Whole Blood 107 mg/dL (70-110)
--- NOTE | 2023-04-23 11:22 | P.PN ---
Subjective Progress Note Date: 04/23/23 Principal diagnosis: Bacteremia Patient is a 72-year-old -[place] Citizen female with a comorbidities including diabetes mellitus hypertension hyperlipidemia end-stage renal disease on hemodialysis Tuesday via permacath patient presenting to the hospital with concerns for unable to care of self at home, patient did have blood cultures came back positive with gram-negative bacilli concerning for possible dialysis catheter infection. Dialysis catheter was removed 04/10/2023, the patient did have a new dialysis catheter placement on 04/13/2023, patient did have an episode of respiratory arrest night of 04/17/2023 requiring transfer to the ICU and intubation On today's evaluation that is 04/23/2023, the patient remains to be afebrile, the patient is breathing comfortably on room air, the patient denies shortness of breath, chest pain and no cough , patient denies abdominal pain, no nausea/vomiting and no diarrhea has been reported, patient is undergoing dialysis and tolerating it well so far per the bi technical lead White count is down to 23.2, creatinine is 1.6, blood and sputum cultures Jeanie , blood culture has been negative Objective - Vital Signs Vital signs: Vital Signs Temp 98.1 F 04/23/23 04:00 Pulse 86 04/23/23 07:00 Resp 17 04/23/23 07:00 BP 125/69 04/23/23 07:00 Pulse Ox 97 04/23/23 07:00 FiO2 40 04/21/23 13:49 Intake & Output 04/22/23 04/23/23 04/23/23 18:59 06:59 18:59 Intake Total 673 300 Output Total 0 0 0 Balance 673 300 0 Weight 87.4 kg 87.7 kg Intake: IV 323 300 Anidulafungin 100 mg In 100 Sodium Chloride 0.9% 100 ml @ 84 mls/hr IVPB DAILY [facility] Rx#:[id number] Invasive Line 1 30 Invasive Line 6 90 Meropenem 500 mg In 100 Sodium Chloride 0.9% 100 ml @ 33.3 mls/hr IVPB Q24H [facility] Rx#:[id number] Potassium Chloride 10 meq 200 In Water For Injection 1 100ml.bag @ 100 mls/hr IVPB Q1H [facility] Rx#: [id number] Pressure Bag (0.9 Sodium 93 Chloride) Sodium Chloride 0.9% 1, 10 000 ml @ 50 mls/hr IV . Q20H [facility] Rx#:[id number] Oral 350 0 Output: Urine 0 0 0 Stool 0 Other: # Voids 0 # Bowel Movements 1 ABP, PAP, CO, CI - Last Documented Arterial Blood Pressure 67/67 - Exam GENERAL DESCRIPTION: Elderly female lying in bed in no distress RESPIRATORY SYSTEM: Unlabored breathing , decreased breath sounds at bases HEART: S1 S2 regular rate and rhythm ABDOMEN: Soft , no tenderness EXTREMITIES: Heel pressure ulcer currently dressed - Labs CBC & Chem 7: 04/23/23 06:52 04/23/23 06:52 Labs: Abnormal Lab Results - Last 24 Hours (Table) 04/22/23 04/23/23 04/23/23 Range/Units 13:01 06:52 06:52 WBC 23.2 H (3.8-10.6) k/uL RBC 3.07 L (3.80-5.40) m/uL Hgb 9.0 L (11.4-16.0) gm/dL Hct 28.8 L (34.0-46.0) % RDW 18.6 H (11.5-15.5) % Plt Count 65 L (150-450) k/uL Sodium 136 L (137-145) mmol/L BUN 32 H (7-17) mg/dL Creatinine 1.67 H (0.52-1.04) mg/dL POC Glucose (mg/dL) 178 H (70-110) mg/dL Calcium 8.2 L (8.4-10.2) mg/dL Assessment and Plan (1) Bacteremia Current Visit: Yes Status: Acute Code(s): R78.81 - BACTEREMIA SNOMED Code(s): 3430779 (2) Unstageable pressure ulcer of left heel Current Visit: Yes Status: Acute Code(s): L89.620 - PRESSURE ULCER OF LEFT HEEL, UNSTAGEABLE SNOMED Code(s): 59467345865110207 Plan: 1-Patient with Klebsiella bacteremia concern for for possible permacatheter infection, patient did have removal of the catheter and subsequently placement of permacatheter in the groin after her culture were negative, patient underlyin g bacteremia and has been adequately treated 2-patient with an episode of respiratory distress concern for possible aspiration pneumonitis sputum has been Jeanie patient is covered with meropenem and Eraxis 3- leukocytosis likely steroid related and no evidence of any worsening clinical condition , white count is trending down Dictation was produced using [email or web address] dictation software. please excuse any grammatical, word or spelling errors. Time with Patient: Less than 30
--- NOTE | 2023-04-23 12:51 | P.PN ---
Subjective Progress Note Date: 04/23/23 Follow-up for ESRD, seen during dialysis, hypotension unable to take any ultrafiltration off. Blood pressure improved with midodrine. Objective - Vital Signs Vital signs: Vital Signs Temp 98.1 F 04/23/23 04:00 Pulse 86 04/23/23 07:00 Resp 17 04/23/23 07:00 BP 125/69 04/23/23 07:00 Pulse Ox 97 04/23/23 07:00 FiO2 40 04/21/23 13:49 Intake & Output 04/22/23 04/23/23 04/23/23 18:59 06:59 18:59 Intake Total 673 300 Output Total 0 0 0 Balance 673 300 0 Weight 87.4 kg 87.7 kg Intake: IV 323 300 Anidulafungin 100 mg In 100 Sodium Chloride 0.9% 100 ml @ 84 mls/hr IVPB DAILY [facility] Rx#:[id number] Invasive Line 1 30 Invasive Line 6 90 Meropenem 500 mg In 100 Sodium Chloride 0.9% 100 ml @ 33.3 mls/hr IVPB Q24H [facility] Rx#:[id number] Potassium Chloride 10 meq 200 In Water For Injection 1 100ml.bag @ 100 mls/hr IVPB Q1H [facility] Rx#: [id number] Pressure Bag (0.9 Sodium 93 Chloride) Sodium Chloride 0.9% 1, 10 000 ml @ 50 mls/hr IV . Q20H [facility] Rx#:[id number] Oral 350 0 Output: Urine 0 0 0 Stool 0 Other: # Voids 0 # Bowel Movements 1 ABP, PAP, CO, CI - Last Documented Arterial Blood Pressure 67/67 - Exam No acute distress S1-S2 heard Decreased lungs sounds Edema - Labs CBC & Chem 7: 04/23/23 06:52 04/23/23 06:52 Labs: Abnormal Lab Results - Last 24 Hours (Table) 04/22/23 04/23/23 04/23/23 Range/Units 13:01 06:52 06:52 WBC 23.2 H (3.8-10.6) k/uL RBC 3.07 L (3.80-5.40) m/uL Hgb 9.0 L (11.4-16.0) gm/dL Hct 28.8 L (34.0-46.0) % RDW 18.6 H (11.5-15.5) % Plt Count 65 L (150-450) k/uL Sodium 136 L (137-145) mmol/L BUN 32 H (7-17) mg/dL Creatinine 1.67 H (0.52-1.04) mg/dL POC Glucose (mg/dL) 178 H (70-110) mg/dL Calcium 8.2 L (8.4-10.2) mg/dL Assessment and Plan Assessment: #1 ESRD on hemodialysis, TTS schedule. Femoral catheter placed 04/13/2023 #2 status post donor renal transplant in 2016. #3 CHF with systolic dysfunction EF of 40% #4 anemia with chronic kidney disease #5 septic shock suspected Klebsiella #6 hypotension secondary to carvedilol this morning Plan: #1 hemodialysis today as per outpatient schedule, no ultrafiltration was done today. #2 decrease carvedilol to 6.25 mg twice a day. #3 midodrine as needed for hemodynamic support #4 ICU care
[2023-04-23 13:37] LABS: Glucose,Whole Blood 99 mg/dL (70-110)
[2023-04-23] MEDS: ACETAMINOPHEN TAB 325 MG TAB PO PRN ×2 (13:43→21:11)
--- NOTE | 2023-04-23 16:25 | P.PN ---
Subjective Progress Note Date: 04/23/23 Patient is a 72 -year-old female with ESRD s/p renal transplant in 2016 (recent rejection) now requiring dialysis //tue, hypertension, dyslipidemia, and insulin-dependent diabetes mellitus who emergency department due to general weakness and burning with urination. Patient discharged home from [facility] on 04/02/23 and patient felt she was still too weak to independently care for herself and needed to return to rehab. In the emergenncy department she underwent an extenisve evaluation.Vitals were unremarkable.Labs were remarbale for hemoglobin of 8.9, sodium 134, bicarb 21, BUN 13, creatinine 1.87, Magnesium 1.7, and Troponin of 0.047 (repeat troponin flat). [facility] at 11:10 PM. We were notified of this admission at 7:49 AM on 04/04/23. During patient's workup, she was noted to develop significant encephalopathy/confusion. He was found to have blood cultures that were positive for Klebsiella and was subsequently started on Rocephin. ID was consulted and recommended exchange dialysis catheter with tip sent for culture. Catheter was removed on 04/10. Notably, patient's CellCept was discontinued after developing bacteremia, while her Prograf level was noted to be low and therefore Prograf was increased to 3 mg twice a day with repeat level pending. Repeat blood cultures were negative. On the evening of 04/17 showed decreased responsiveness and increasing O2 requirements. It was de termined that she likely aspirated. She was subsequently transferred to the ICU and required intubation. Pulmonary critical care was consulted. Central and arterial lines were placed. She did require both Levophed and vasopressin. Antibiotics were increased to meropenem, vancomycin, and Eraxis. Vasopressors were weaned off by the evening of 04/19. She was successfully extubated on 04/21/23. She is having some pain, denies any shortness of breath or chest pain. No other complaints at this time. D/W nursing patient does have perm HD cath but it is in the groin. Vital signs reviewed General: Ill appearing, no distress, appears at stated age Cardiovascular: S1S2 reg, no murmur, positive posterior tibial pulse bilateral, Lungs: Decreased bs bilateral, no rhonchi, no rales , no accessory muscle use Abdominal: soft, nontender to palpation, no guarding, no appreciable organomegaly Ext: no gross muscle atrophy, no edema b/l lower extremities, no contractures Neuro: CN II-XI grossly intact, no focal neuro deficits Psych: awake, alert, appropriate affect Assessment/Plan: Klebsiella bacteremia, possibly related to hemodialysis catheter Sepsis Toxic metabolic encephalopathy Acute hypoxic respiratory failure possible underlying pneumonia - ID note reviewed: possible aspiration PNA with meropenem and eraxis - Pulmonary note reviewed: Continue Prednisone - off tacro and myco given infection -Eraxis 100 mg IV daily D#6, meropenem 500 mg IV every 24 hours D#6 - off vanco - had been on rocephin 04/08-04/17 Acute exacerbation of systolic congestive heart failure, ejection fraction recovered to 50% with prior ejection fraction of 40% End-stage renal disease on hemodialysis Tuesday//Tuesday Status post donor kidney transplant in 2015 Anemia of end-stage renal disease Metabolic acidosis - nephrology note reviewed: HD today, decrease coreg to 6.25 mg BID, MIdodrine as need for HD support -Sodium bicarb 1300 mg by mouth 3 times daily - fluid mgt with HD - coreg 6.25 mg BID Diabetes mellitus type 2, -Continue with sliding scale insulin -Follow blood sugars -A1c 6.4 Leukocytosis, reactive -Suspect worsening secondary to stress dose steroids -Follow CBC - steroids d/c on 04/22/23 thrombocytopenia, likely secondary to consumption -Heparin antibody negative -Follow CBC Troponin elevation, chronic and secondary to ESRD: Not consistent with acute coronary syndrome - ASA 81mg daily - Atorvastatin 10 mg HS. Septic shock, resolved Chronic: HTN, HLD, Asthma, B/l LE wounds (present on admission) Imaging: None new Data Review: Labs reviewed White blood cell count 23.2, hemoglobin 9, platelets 65, sodium 136, BUN 32, creatinine 1.67 DVT prophylaxis: SCDS due to low plts Anticipated discharge date: Pending Clinical Course Anticipated discharge place: Pending Clinical Course This dictation was prepared using [employer] voice recognition software. Though every attempt is made to correct errors during dictation some may still exist. Objective - Vital Signs Vital signs: Vital Signs Temp 36.6 F L 04/23/23 12:50 Pulse 80 04/23/23 12:50 Resp 16 04/23/23 12:50 BP 139/74 04/23/23 12:50 Pulse Ox 98 04/23/23 12:00 FiO2 40 04/21/23 13:49 Intake & Output 04/22/23 04/23/23 04/23/23 18:59 06:59 18:59 Intake Total 884 603 6884 Output Total 0 0 700 Balance 673 300 387 Weight 87.4 kg 87.7 kg Intake: IV 323 300 100 Anidulafungin 100 mg In 100 100 Sodium Chloride 0.9% 100 ml @ 84 mls/hr IVPB DAILY [facility] Rx#:[id number] Invasive Line 1 30 Invasive Line 6 90 Meropenem 500 mg In 100 Sodium Chloride 0.9% 100 ml @ 33.3 mls/hr IVPB Q24H [facility] Rx#:[id number] Potassium Chloride 10 meq 200 In Water For Injection 1 100ml.bag @ 100 mls/hr IVPB Q1H [facility] Rx#: [id number] Pressure Bag (0.9 Sodium 93 Chloride) Sodium Chloride 0.9% 1, 10 000 ml @ 50 mls/hr IV . Q20H [facility] Rx#:[id number] Oral 350 0 287 Hemodialysis 700 Output: Urine 0 0 0 Stool 0 Hemodialysis 700 Other: # Voids 0 # Bowel Movements 1 0 ABP, PAP, CO, CI - Last Documented Arterial Blood Pressure 67/67 - Labs CBC & Chem 7: 04/23/23 06:52 04/23/23 06:52 Labs: Abnormal Lab Results - Last 24 Hours (Table) 04/23/23 04/23/23 Range/Units 06:52 06:52 WBC 23.2 H (3.8-10.6) k/uL RBC 3.07 L (3.80-5.40) m/uL Hgb 9.0 L (11.4-16.0) gm/dL Hct 28.8 L (34.0-46.0) % RDW 18.6 H (11.5-15.5) % Plt Count 65 L (150-450) k/uL Sodium 136 L (137-145) mmol/L BUN 32 H (7-17) mg/dL Creatinine 1.67 H (0.52-1.04) mg/dL Calcium 8.2 L (8.4-10.2) mg/dL
[2023-04-23 17:17] LABS: Glucose,Whole Blood 126 mg/dL (70-110)
[2023-04-23] MEDS: ASPIRIN 81 MG PO SCH (17:47)
[2023-04-23] MEDS ORDERED: MELATONIN 5 MG TABLET PO PRN (17:52)
[2023-04-23 19:51] LABS: Glucose,Whole Blood 127 mg/dL (70-110)
[2023-04-23] MEDS: MEROPENEM 500 MG in SODIUM CHLORIDE 0.9% 100 ML IVPB SCH (20:00)
[2023-04-23] MEDS: ATORVASTATIN 10 MG TAB PO SCH (21:13)
[2023-04-23 23:42] LABS: Glucose,Whole Blood 120 mg/dL (70-110)
[2023-04-24] MEDS: ONDANSETRON 4 MG/2 ML VIAL IVP PRN (00:15)
[2023-04-24 04:01] LABS: Glucose,Whole Blood 164 mg/dL (70-110)
[2023-04-24] MEDS: INSULIN ASPART (NovoLOG) 100 UNIT/ML VIAL SQ SCH ×5 (04:10→16:07)
[2023-04-24] MEDS: carvediloL 6.25 MG TAB PO SCH ×2 (06:53→18:42)
[2023-04-24 07:16] LABS: Anisocytosis Slight; Basophils % (A) 0 %; Eosinophils % (A) 0 %; HCT 27.3 % (34.0-46.0); HGB 8.1 gm/dL (11.4-16.0); Hypochromasia Marked; Lymphocytes # (A) 0.6 k/uL (1.0-4.8); Lymphocytes % (A) 3 %; MCH 28.7 pg (25.0-35.0); MCHC 29.6 g/dL (31.0-37.0); MCV 96.9 fL (80.0-100.0); Macrocytosis Slight; Mean Platelet Volume 12.2; Monocytes # (A) 0.7 k/uL (0-1.0); Monocytes % (A) 3 %; Neutrophils # (A) 19.3 k/uL (1.3-7.7); Neutrophils % (A) 94 %; Poikilocytosis Slight; RBC 2.81 m/uL (3.80-5.40); RDW 19.1 % (11.5-15.5); WBC 20.6 k/uL (3.8-10.6)
[2023-04-24 07:29] LABS: African American GFR (CKD) 43 (>60 ml/min/1.73 sqM); Anion Gap 11 mmol/L; Blood Urea Nitrogen 26 mg/dL (7-17); Carbon Dioxide 22 mmol/L (22-30); Chloride 105 mmol/L (98-107); Glucose 132 mg/dL (74-99); Non-African American GFR(CKD) 37 (>60 ml/min/1.73 sqM); Sodium 138 mmol/L (137-145)
[2023-04-24 07:43] LABS: Platelet Count 94 k/uL (150-450)
[2023-04-24] MEDS: PANTOPRAZOLE 40 MG/10 ML VIAL IVP SCH (07:53)
[2023-04-24] MEDS: ANIDULAFUNGIN 100 MG in SODIUM CHLORIDE 0.9% 100 ML IVPB SCH (07:53)
[2023-04-24] MEDS: NYSTATIN 100,000 UNIT/ML SUSP 500,000 UNIT/5 ML CUP PO SCH ×5 (07:53→20:36)
[2023-04-24] MEDS: predniSONE 10 MG TAB PO SCH ×2 (07:54→09:14)
[2023-04-24] MEDS: ACETAMINOPHEN TAB 325 MG TAB PO PRN (07:54)
[2023-04-24] MEDS: ASPIRIN 81 MG PO SCH ×2 (07:54→09:12)
[2023-04-24] MEDS: THIAMINE 100 MG TAB PO SCH ×3 (07:54→18:42)
[2023-04-24] MEDS: FOLIC ACID 1 MG TAB PO SCH ×2 (07:55→09:13)
[2023-04-24] MEDS: SODIUM CHLORIDE 0.9% 1,000 ML IV SCH (08:00)
[2023-04-24 09:01] LABS: Glucose,Whole Blood 199 mg/dL (70-110)
[2023-04-24 11:30] LABS: Glucose,Whole Blood 134 mg/dL (70-110)
--- NOTE | 2023-04-24 11:41 | P.PN ---
Subjective Progress Note Date: 04/24/23 Patient is a 72 -year-old female with ESRD s/p renal transplant in 2016 (recent rejection) now requiring dialysis //tue, hypertension, dyslipidemia, and insulin-dependent diabetes mellitus who emergency department due to general weakness and burning with urination. Patient discharged home from [facility] on 04/02/23 and patient felt she was still too weak to independently care for herself and needed to return to rehab. In the emergenncy department she underwent an extenisve evaluation.Vitals were unremarkable.Labs were remarbale for hemoglobin of 8.9, sodium 134, bicarb 21, BUN 13, creatinine 1.87, Magnesium 1.7, and Troponin of 0.047 (repeat troponin flat). [facility]:10 PM. We were notified of this admission at 7:49 AM on 04/04/23. During patient's workup, she was noted to develop significant encephalopathy/confusion. He was found to have blood cultures that were positive for Klebsiella and was subsequently started on Rocephin. ID was consulted and recommended exchange dialysis catheter with tip sent for culture. Catheter was removed on 04/10. Notably, patient's CellCept was discontinued after developing bacteremia, while her Prograf level was noted to be low and therefore Prograf was increased to 3 mg twice a day with repeat level pending. Repeat blood cultures were negative. On the evening of 04/17 showed decreased responsiveness and increasing O2 requirements. It was de termined that she likely aspirated. She was subsequently transferred to the ICU and required intubation. Pulmonary critical care was consulted. Central and arterial lines were placed. She did require both Levophed and vasopressin. Antibiotics were increased to meropenem, vancomycin, and Eraxis. Vasopressors were weaned off by the evening of 04/19. She was successfully extubated on 04/21/23. Patient seen and examined at bedside. She has no complaints. Denies any shortness of breath. Appears slightly more confused today. Vital signs reviewed General: Ill appearing, no distress, appears at stated age Cardiovascular: S1S2 reg, no murmur, positive posterior tibial pulse bilateral, Lungs: Decreased bs bilateral, no rhonchi, no rales , no accessory muscle use Abdominal: soft, nontender to palpation, no guarding, no appreciable organomegaly Ext: no gross muscle atrophy, no edema b/l lower extremities, no contractures Neuro: CN II-XI grossly intact, no focal neuro deficits Psych: awake, confused but pleasant Assessment/Plan: Klebsiella bacteremia, possibly related to hemodialysis catheter Sepsis Toxic metabolic encephalopathy Acute hypoxic respiratory failure possible underlying pneumonia, improving - Await further ID recs - AWait further pulm recs - off tacro and myco given infection -Eraxis 100 mg IV daily D#7, meropenem 500 mg IV every 24 hours D#7 - off vanco - had been on rocephin 04/08-04/17 - Prednisone 10 mg daily Acute exacerbation of systolic congestive heart failure, ejection fraction recovered to 50% with prior ejection fraction of 40% End-stage renal disease on hemodialysis Tuesday//Tuesday Status post donor kidney transplant in 2016 Anemia of end-stage renal disease Metabolic acidosis -Await further nephrology recs -Sodium bicarb 1300 mg by mouth 3 times daily - fluid mgt with HD - coreg 6.25 mg BID Insomnia - continue with melatonin - start remeron Diabetes mellitus type 2, -Continue with sliding scale insulin -Follow blood sugars -A1c 6.4 Leukocytosis, reactive -Suspect worsening secondary to stress dose steroids -Follow CBC - steroids d/c on 04/22/23 thrombocytopenia, likely secondary to consumption -Heparin antibody negative -Follow CBC Troponin elevation, chronic and secondary to ESRD: Not consistent with acute coronary syndrome - ASA 81mg daily - Atorvastatin 10 mg HS. Septic shock, resolved Chronic: HTN, HLD, Asthma, B/l LE wounds (present on admission) Imaging: Chest x-ray as reviewed by myself-increased pulmonary vascular congestion with small bilateral pleural effusions Data Review: Labs reviewed from today and CBC remarkable for white blood cell count 20.6, hemoglobin 8.1, platelets 94, BUN 26, creatinine 1.4 DVT prophylaxis: SCDS due to low plts Anticipated discharge date: Pending Clinical Course Anticipated discharge place: Pending Clinical Course This dictation was prepared using im[employer]D voice recognition software. Though every attempt is made to correct errors during dictation some may still exist. Objective - Vital Signs Vital signs: Vital Signs Temp 97.9 F 04/24/23 08:00 Pulse 93 04/24/23 09:00 Resp 12 04/24/23 09:00 BP 122/59 04/24/23 09:00 Pulse Ox 98 04/24/23 09:00 FiO2 40 04/21/23 13:49 Intake & Output 04/23/23 04/24/23 04/24/23 18:59 06:59 18:59 Intake Total 1087 100 180 Output Total 700 0 0 Balance 387 100 180 Weight 89.4 kg Intake: IV 100 100 180 Anidulafungin 100 mg In 100 100 Sodium Chloride 0.9% 100 ml @ 84 mls/hr IVPB DAILY [facility] Rx#:[id number] Invasive Line 1 20 Invasive Line 6 60 Meropenem 500 mg In 100 Sodium Chloride 0.9% 100 ml @ 33.3 mls/hr IVPB Q24H [facility] Rx#:[id number] Oral 287 Hemodialysis 700 Output: Urine 0 0 0 Hemodialysis 700 Other: # Bowel Movements 1 0 ABP, PAP, CO, CI - Last Documented Arterial Blood Pressure - Labs CBC & Chem 7: 04/24/23 05:51 04/24/23 05:51 Labs: Abnormal Lab Results - Last 24 Hours (Table) 04/23/23 04/23/23 04/23/23 Range/Units 17:15 19:50 23:39 WBC (3.8-10.6) k/uL RBC (3.80-5.40) m/uL Hgb (11.4-16.0) gm/dL Hct (34.0-46.0) % MCHC (31.0-37.0) g/dL RDW (11.5-15.5) % Plt Count (150-450) k/uL Neutrophils # (1.3-7.7) k/uL Lymphocytes # (1.0-4.8) k/uL BUN (7-17) mg/dL Creatinine (0.52-1.04) mg/dL Glucose (74-99) mg/dL POC Glucose (mg/dL) 126 H 127 H 120 H (70-110) mg/dL Calcium (8.4-10.2) mg/dL 04/24/23 04/24/23 04/24/23 Range/Units 04:00 05:51 05:51 WBC 20.6 H (3.8-10.6) k/uL RBC 2.81 L (3.80-5.40) m/uL Hgb 8.1 L (11.4-16.0) gm/dL Hct 27.3 L (34.0-46.0) % MCHC 29.6 L (31.0-37.0) g/dL RDW 19.1 H (11.5-15.5) % Plt Count 94 L (150-450) k/uL Neutrophils # 19.3 H (1.3-7.7) k/uL Lymphocytes # 0.6 L (1.0-4.8) k/uL BUN 26 H (7-17) mg/dL Creatinine 1.42 H (0.52-1.04) mg/dL Glucose 132 H (74-99) mg/dL POC Glucose (mg/dL) 164 H (70-110) mg/dL Calcium 8.0 L (8.4-10.2) mg/dL 04/24/23 Range/Units 08:59 WBC (3.8-10.6) k/uL RBC (3.80-5.40) m/uL Hgb (11.4-16.0) gm/dL Hct (34.0-46.0) % MCHC (31.0-37.0) g/dL RDW (11.5-15.5) % Plt Count (150-450) k/uL Neutrophils # (1.3-7.7) k/uL Lymphocytes # (1.0-4.8) k/uL BUN (7-17) mg/dL Creatinine (0.52-1.04) mg/dL Glucose (74-99) mg/dL POC Glucose (mg/dL) 199 H (70-110) mg/dL Calcium (8.4-10.2) mg/dL Microbiology - Last 24 Hours (Table) 04/18/23 15:16 Blood Culture - Final Blood 04/18/23 11:00 Blood Culture - Final Blood
--- NOTE | 2023-04-24 11:46 | P.PN ---
Subjective Progress Note Date: 04/24/23 Principal diagnosis: Bacteremia Patient is a 72-year-old -[place] female with a comorbidities including diabetes mellitus hypertension hyperlipidemia end-stage renal disease on hemodialysis Tuesday via permacath patient presenting to the hospital with concerns for unable to care of self at home, patient did have blood cultures came back positive with gram-negative bacilli concerning for possible dialysis catheter infection. Dialysis catheter was removed 04/10/2023, the patient did have a new dialysis catheter placement on 04/13/2023, patient did have an episode of respiratory arrest night of 04/17/2023 requiring transfer to the ICU and intubation On today's evaluation that is 04/24/2023, the patient continues be afebrile, the patient is breathing comfortably on room air, the patient denies chest pain shortness of breath or cough , patient denies abdominal pain, no nausea/vomiting and no diarrhea has been reported, White count is down to 20.6, creatinine is 1.42, blood and sputum cultures Jeanie , blood culture has been negative Objective - Vital Signs Vital signs: Vital Signs Temp 97.9 F 04/24/23 08:00 Pulse 93 04/24/23 09:00 Resp 12 04/24/23 09:00 BP 122/59 04/24/23 09:00 Pulse Ox 98 04/24/23 09:00 FiO2 40 04/21/23 13:49 Intake & Output 04/23/23 04/24/23 04/24/23 18:59 06:59 18:59 Intake Total 1087 100 180 Output Total 700 0 0 Balance 387 100 180 Weight 89.4 kg Intake: IV 100 100 180 Anidulafungin 100 mg In 100 100 Sodium Chloride 0.9% 100 ml @ 84 mls/hr IVPB DAILY [facility] Rx#:[id number] Invasive Line 1 20 Invasive Line 6 60 Meropenem 500 mg In 100 Sodium Chloride 0.9% 100 ml @ 33.3 mls/hr IVPB Q24H [facility] Rx#:[id number] Oral 287 Hemodialysis 700 Output: Urine 0 0 0 Hemodialysis 700 Other: # Bowel Movements 1 0 ABP, PAP, CO, CI - Last Documented Arterial Blood Pressure 67/67 - Exam GENERAL DESCRIPTION: Elderly female lying in bed in no distress RESPIRATORY SYSTEM: Unlabored breathing , decreased breath sounds at bases HEART: S1 S2 regular rate and rhythm ABDOMEN: Soft , no tenderness EXTREMITIES: Heel pressure ulcer currently dressed - Labs CBC & Chem 7: 04/24/23 05:51 04/24/23 05:51 Labs: Abnormal Lab Results - Last 24 Hours (Table) 04/23/23 04/23/23 04/23/23 Range/Units 17:15 19:50 23:39 WBC (3.8-10.6) k/uL RBC (3.80-5.40) m/uL Hgb (11.4-16.0) gm/dL Hct (34.0-46.0) % MCHC (31.0-37.0) g/dL RDW (11.5-15.5) % Plt Count (150-450) k/uL Neutrophils # (1.3-7.7) k/uL Lymphocytes # (1.0-4.8) k/uL BUN (7-17) mg/dL Creatinine (0.52-1.04) mg/dL Glucose (74-99) mg/dL POC Glucose (mg/dL) 126 H 127 H 120 H (70-110) mg/dL Calcium (8.4-10.2) mg/dL 04/24/23 04/24/23 04/24/23 Range/Units 04:00 05:51 05:51 WBC 20.6 H (3.8-10.6) k/uL RBC 2.81 L (3.80-5.40) m/uL Hgb 8.1 L (11.4-16.0) gm/dL Hct 27.3 L (34.0-46.0) % MCHC 29.6 L (31.0-37.0) g/dL RDW 19.1 H (11.5-15.5) % Plt Count 94 L (150-450) k/uL Neutrophils # 19.3 H (1.3-7.7) k/uL Lymphocytes # 0.6 L (1.0-4.8) k/uL BUN 26 H (7-17) mg/dL Creatinine 1.42 H (0.52-1.04) mg/dL Glucose 132 H (74-99) mg/dL POC Glucose (mg/dL) 164 H (70-110) mg/dL Calcium 8.0 L (8.4-10.2) mg/dL 04/24/23 04/24/23 Range/Units 08:59 11:29 WBC (3.8-10.6) k/uL RBC (3.80-5.40) m/uL Hgb (11.4-16.0) gm/dL Hct (34.0-46.0) % MCHC (31.0-37.0) g/dL RDW (11.5-15.5) % Plt Count (150-450) k/uL Neutrophils # (1.3-7.7) k/uL Lymphocytes # (1.0-4.8) k/uL BUN (7-17) mg/dL Creatinine (0.52-1.04) mg/dL Glucose (74-99) mg/dL POC Glucose (mg/dL) 199 H 134 H (70-110) mg/dL Calcium (8.4-10.2) mg/dL Microbiology - Last 24 Hours (Table) 04/18/23 15:16 Blood Culture - Final Blood 04/18/23 11:00 Blood Culture - Final Blood Assessment and Plan (1) Bacteremia Current Visit: Yes Status: Acute Code(s): R78.81 - BACTEREMIA SNOMED Code(s): 5954447 (2) Unstageable pressure ulcer of left heel Current Visit: Yes Status: Acute Code(s): L89.620 - PRESSURE ULCER OF LEFT HEEL, UNSTAGEABLE SNOMED Code(s): 34622478130903143 Plan: 1-Patient with Klebsiella bacteremia concern for for possible permacatheter infection, patient did have removal of the catheter and subsequently placement of permacatheter in the groin after her culture were negative, patient underlying bacteremia and has been adequately treated 2-patient with an episode of respiratory distress concern for possible aspiration pneumonitis sputum has been Jeanie patient is covered with meropenem and Eraxis, transitioned to by mouth antibiotics 3- leukocytosis likely steroid related and no evidence of any worsening clinical condition , white count is trending down and is down to 20.6 will monitor clinical course closely Dictation was produced using [employer] software. please excuse any grammatical, word or spelling errors. Time with Patient: Less than 30
--- NOTE | 2023-04-24 12:14 | P.PN ---
Subjective Progress Note Date: 04/24/23 On today's evaluation of 04/19/2023, the patient is being seen for a follow-up. The patient remains intubated on a mechanical ventilator. She was hemodynamically unstable in septic shock and based on that, the patient was intubated and placed on a mechanical ventilator and she was started on fluids and pressors and aggressive resuscitation. She was brought into the intensive care unit yesterday. The patient is currently sedated on propofol which is running at 10 mcg/kg/m. She is sent has a mechanical ventilator. She is on assist-control mode at the rate of 14, tidal volume of 350, FiO2 of 60% with a PEEP of 10. The blood gas from today shows a pH of 7.44 episodes of 35 and pO2 of 146. The chest x-ray from today shows adequate positioning of the orotracheal tube. The patient has limited bibasilar pulmonary infiltrates and possibly some small pleural effusions. The patient also has a right subclavian triple-lumen catheter in place. Sputum samples were sent and there is also still pending for now. Blood cultures still pending for now. The patient is on broad-spectrum antibiotics and I started on a combination of meropenem, Eraxis and vancomycin yesterday pending further cultures. White cell count today's of 22.3. She is afebrile. Pressors have been weaned off. Norepinephrine is running at 0.04 mcg/kg/m and the patient is also on physiologic dose of vasopressin. The patient was also given stress dose hydrocortisone yesterday. Immunosuppression medications were discontinued. There is a drop in hemoglobin down to 6.9 without evidence of any GI bleed. The patient will be receiving a unit of packed RBC. On a separate note, the patient is undergoing hemodialysis today. The ends of 20 with a creatinine of 1.6. Potassium levels at 3.5. Sodium level is at 138. Echocardiogram was done and completed yesterday and the patient has a normal LV function. There is moderate LVH, LV cavity is small. There is moderate to severe mitral annular calcification and thickening. No evidence of any pericardial effusion. The patient was also started on enteral feeding for nutritional support. She is currently on vital high-protein at the rate of 37 mL an hour. In terms of her blood sugar control, she is on insulin drip running at 2.25 units an hour. on today's evaluation of 04/20/2023, I'm seeing the patient for a follow-up. This morning, the patient is sedated and she is on propofol running at 10 mcg/kg/m. She is quite comfortable. She is synchronous a mechanical ventilator. She remains on assist-control mode of mechanical ventilation she is currently at the rate of 14 with a tidal volume of 350 and PEEP of 10 with an FiO2 of 60%. I reviewed the patient's blood gas from today and that is improvement in oxygenation. The pH is at 7.5 with a pCO2 of 33 and pO2 of 169. The chest x-ray showing limited infiltrationThe lung bases bilaterally. Oral ch icken tube is in a good location. The patient has no significant orotracheal secretions at this point in time. In terms of her sepsis, the patient is still on broad-spectrum antibiotics in the echoes down to 27. The blood culture has been negative. The patient is afebrile. Her pressor requirements have dropped significantly and the patient is currently off vasopressin and she is only on norepinephrine at 0.01 mcg/kg/m. She underwent hemodialysis yesterday. Albumin is low and nephrology opted to give the patient IV albumin. This is essentially to support the blood pressure and get off the pressors. She is currently on enteral feeding for nutritional support and she is receiving vital high-protein at the rate of 44 mL an hour. An echo cardiograph showed a preserved LV function. In terms of her blood sugar control, she is on Levemir insulin at a dose of 15 units and a sliding scale coverage with NovoLog where she is receiving a protocol +2 units scheduled. Her hemoglobin is stable. During the course of her hospitalization, she recently units of packed RBC for a hemoglobin of 6.9 and hemoglobin is currently up to 8.8. On 04/21/2023, I'm seeing the patient for a follow-up. This morning, the patient is on propofol running at 10 mcg/kg/m which is giving low level of sedation. The patient was opening eyes spontaneously. She is following simple commands. She is profoundly weak and lethargic still. She is a process of undergoing hemodialysis. The goal of ultrafiltration is 1 L. The patient is on assist-control mode of mechanical ventilation at the rate of 14, tidal volume of 350, FiO2 of 40% with a PEEP of 5. The morning blood gases from today showed a pH of 7.51 with a pCO2 of 33 and pO2 of 143. Chest x-ray shows some atelectatic changes in the lung bases bilaterally. Orotracheal tube is in a good location. As far as her sepsis, the patient's echoes at elevated at 26. The patient remains on stress dose hydrocortisone. The patient is on broad-spectrum antibiotics including a combination of vancomycin, meropenem and Eraxis. The patient had Jeanie or sputum. Most likely colonization. Blood culture has been negative. The patient has a vancomycin trough level of 13.5. The patient is currently off pressors. She is receiving enteral feeding for nutritional support. She is currently on vital high-protein at the rate of 40 mL an hour. The rest of the blood work was noted. The hemoglobin is at 7.8. Urine is a 28 with a creatinine of 1.6 and a sodium level is at 139. The plan is to complete hemodialysis and assess the patient's ability to wean by checking weaning parameters and possibly given given a spontaneous breathing trial and if she ends up having adequate mentation and adequate weaning parameters. On 04/22/2023, the patient is extubated the patient is currently on room air oxygen pH is awake and alert and she is communicating. No signs of any respiratory distress and the breathing is nonlabored. The chest x-ray shows cardiomegaly and some atelectatic changes and small lung base bilaterally. The patient underwent hemodialysis yesterday with ultrafiltration of 1 L. She is calm and comfortable at this point in the breathing is nonlabored. At the same time, the patient is hemodynamically stable. She is currently off pressors. Her blood pressures improved significantly. No clear source of infection although the patient's white cell count continues to be elevated at 32.9. She is still covered with broad-spectrum antibiotics and she is currently on a combination of Eraxis, vancomycin and meropenem. Infectious diseases on the case. The sputum culture came back for possible Jeanie albicans. Blood cultures been negative for the time being and the patient is currently off pressors. IV fluids are currently of KVO. She has chronic heel ulcers, that are nondraining. She also has a dialysis cath in her right femoral vein. Her previous episodes of sepsis was related to Klebsiella pneumoniae and that was treated. On 04/24/2023, the patient is being seen for a follow-up. She is on room air oxygen. She is currently comfortable. He is undergoing hemodialysis. No significant ultrafiltration to be done today as the patient became hypotensive. She is tolerating hemodialysis of this point in time. She has profound motor weakness in all 4 extremities. No focal neurological deficits. No fever. No pressors. The echoes down to 23. Hemoglobin stable at 9.0. Sodium levels of 136, BUN is at 32 with a creatinine of 1.67. Chest x-ray from today shows cardiomegaly, mild pulmonary vascular congestion, atelectatic change in lung bases bilaterally. IV fluids are currently at KVO. On 04/24/2023, seeing the patient for a follow-up. The patient remains on room air oxygen. Hemodynamically stable. echoes improved and the patient remains on a combination of meropenem vancomycin and Eraxis. She is having episodes of confusion. No agitation. The patient is morbidly 4 extremities without any limitation. The patient had no possible cultures. Her last session of hemodialysis was yesterday and unable to do significant ultrafiltration because of hypotension. As such, the patient continues to have significant amount of third spacing in upper and lower extremities. The vesicles at 20.6 with a hemoglobin of 8.1 and a platelet count of 94. BUN is 26 with a crea tinine of 1.42 and a sodium level is at 138. Objective - Vital Signs Vital signs: Vital Signs Temp 97.9 F 04/24/23 08:00 Pulse 93 04/24/23 09:00 Resp 12 04/24/23 09:00 BP 122/59 04/24/23 09:00 Pulse Ox 98 04/24/23 09:00 FiO2 40 04/21/23 13:49 Intake & Output 04/23/23 04/24/23 04/24/23 18:59 06:59 18:59 Intake Total 1087 100 180 Output Total 700 0 0 Balance 387 100 180 Weight 89.4 kg Intake: IV 100 100 180 Anidulafungin 100 mg In 100 100 Sodium Chloride 0.9% 100 ml @ 84 mls/hr IVPB DAILY [facility] Rx#:[id number] Invasive Line 1 20 Invasive Line 6 60 Meropenem 500 mg In 100 Sodium Chloride 0.9% 100 ml @ 33.3 mls/hr IVPB Q24H [facility] Rx#:[id number] Oral 287 Hemodialysis 700 Output: Urine 0 0 0 Hemodialysis 700 Other: # Bowel Movements 1 0 ABP, PAP, CO, CI - Last Documented Arterial Blood Pressure 67/67 - Exam GENERAL EXAM: 72-year-old female, currently she is on room air oxygen and she is awake and alert and communicating, she is profoundly weak. HEAD: Normocephalic and atraumatic EYES: Normal reaction of pupils, equal size. NOSE: Clear with pink turbinates. THROAT: No erythema or exudates. NECK: No masses, no JVD. CHEST: No chest wall deformity. LUNGS: Equal air entry with no crackles, wheeze, rhonchi or dullness. No conversational dyspnea or accessory muscle use.. CVS: S1 and S2 normal with no audible murmur, regular rhythm. No extra heart sounds ABDOMEN: No hepatosplenomegaly, active bowel sounds, no guarding or rigidity. SPINE: No scoliosis or deformity SKIN: There is a decubitus pressure ulcer, along with bilateral heel ulce rations. Eschar noted on the heels bilaterally and the patient has the appropriate dressing and the boots CENTRAL NERVOUS SYSTEM: Sedated, no focal deficits, tone is weak in all 4 extremities. EXTREMITIES: There is no peripheral edema, clubbing, or cyanosis. Peripheral pulses are diminished bilaterally - Labs CBC & Chem 7: 04/24/23 05:51 04/24/23 05:51 Labs: Abnormal Lab Results - Last 24 Hours (Table) 04/23/23 04/23/23 04/23/23 Range/Units 17:15 19:50 23:39 WBC (3.8-10.6) k/uL RBC (3.80-5.40) m/uL Hgb (11.4-16.0) gm/dL Hct (34.0-46.0) % MCHC (31.0-37.0) g/dL RDW (11.5-15.5) % Plt Count (150-450) k/uL Neutrophils # (1.3-7.7) k/uL Lymphocytes # (1.0-4.8) k/uL BUN (7-17) mg/dL Creatinine (0.52-1.04) mg/dL Glucose (74-99) mg/dL POC Glucose (mg/dL) 126 H 127 H 120 H (70-110) mg/dL Calcium (8.4-10.2) mg/dL 04/24/23 04/24/23 04/24/23 Range/Units 04:00 05:51 05:51 WBC 20.6 H (3.8-10.6) k/uL RBC 2.81 L (3.80-5.40) m/uL Hgb 8.1 L (11.4-16.0) gm/dL Hct 27.3 L (34.0-46.0) % MCHC 29.6 L (31.0-37.0) g/dL RDW 19.1 H (11.5-15.5) % Plt Count 94 L (150-450) k/uL Neutrophils # 19.3 H (1.3-7.7) k/uL Lymphocytes # 0.6 L (1.0-4.8) k/uL BUN 26 H (7-17) mg/dL Creatinine 1.42 H (0.52-1.04) mg/dL Glucose 132 H (74-99) mg/dL POC Glucose (mg/dL) 164 H (70-110) mg/dL Calcium 8.0 L (8.4-10.2) mg/dL 04/24/23 Range/Units 08:59 WBC (3.8-10.6) k/uL RBC (3.80-5.40) m/uL Hgb (11.4-16.0) gm/dL Hct (34.0-46.0) % MCHC (31.0-37.0) g/dL RDW (11.5-15.5) % Plt Count (150-450) k/uL Neutrophils # (1.3-7.7) k/uL Lymphocytes # (1.0-4.8) k/uL BUN (7-17) mg/dL Creatinine (0.52-1.04) mg/dL Glucose (74-99) mg/dL POC Glucose (mg/dL) 199 H (70-110) mg/dL Calcium (8.4-10.2) mg/dL Microbiology - Last 24 Hours (Table) 04/18/23 15:16 Blood Culture - Final Blood 04/18/23 11:00 Blood Culture - Final Blood Assessment and Plan Assessment: Acute hypoxemic respiratory failure, recovered and the patient is currently on room air oxygen. The patient is sedated on 04/21/2023. Chest x-ray showing some atelectatic changes in the lung bases bilaterally. The patient is currently on room air oxygen. Sepsis and septic shock, responded , IV fluids are currently at KVO and the p atient remains off pressors Klebsiella pneumonia bacteremia, originally felt to be related to infected hemodialysis catheter, which has been replaced. Catheter culture did not isolate any organisms. Repeat blood cultures have been negative so far Leukocytosis, white blood count remains elevated, improving Anemia of chronic disease, drop in hemoglobin without evidence of any GI bleed and the patient will be receiving a unit of packed RBC, hemoglobin is stable at 9.0 Thrombocytopenia, likely related to sepsis End-stage renal disease with previous renal transplant, currently requiring hemo dialysis on a Tuesday, , Tuesday schedule. Patient does take antirejection medication in the form of Prograf, CellCept, and oral prednisone. CellCept is on hold due to immunosuppression. Patient undergoing hemodialysis on a daily basis History of systolic congestive heart failure, with a mildly reduced LV function estimated at 45% on recent echocardiogram done December, Diabetes mellitus 2, insulin-dependent, currently on Levemir insulin Benign essential hypertension Hyperlipidemia History of asthma, stable Bilateral lower extremity wounds, chronic heel wounds Plan: Monitor mental status Increase oral intake based on her ability to swallow Hemodialysis to be done tomorrow RA 02 prednisone 10 mg by mouth daily which is maintenance regarding her chronic immunosuppression Continue the broad-spectrum antibiotics and the patient is currently on a combination of meropenem, Eraxis and vancomycin Negative blood cultures Echocardiogram shows a preserved LV function Increase oral intake Keep the patient off immunosuppressive agents change IV fluids to KVO Insulin sliding scale coverage The patient may need a permacath at the later stage. This was discussed with nephrology. Condition is critical and we'll continue to follow and will make further recommendations based on her progress.
--- NOTE | 2023-04-24 15:00 | P.PN ---
Subjective Progress Note Date: 04/24/23 Follow-up for ESRD Objective - Vital Signs Vital signs: Vital Signs Temp 97.9 F 04/24/23 08:00 Pulse 93 04/24/23 09:00 Resp 12 04/24/23 09:00 BP 122/59 04/24/23 09:00 Pulse Ox 98 04/24/23 09:00 FiO2 40 04/21/23 13:49 Intake & Output 04/23/23 04/24/23 04/24/23 18:59 06:59 18:59 Intake Total 1087 100 180 Output Total 700 0 0 Balance 387 100 180 Weight 89.4 kg Intake: IV 100 100 180 Anidulafungin 100 mg In 100 100 Sodium Chloride 0.9% 100 ml @ 84 mls/hr IVPB DAILY [facility] Rx#:[id number] Invasive Line 1 20 Invasive Line 6 60 Meropenem 500 mg In 100 Sodium Chloride 0.9% 100 ml @ 33.3 mls/hr IVPB Q24H [facility] Rx#:[id number] Oral 287 Hemodialysis 700 Output: Urine 0 0 0 Hemodialysis 700 Other: # Bowel Movements 1 0 ABP, PAP, CO, CI - Last Documented Arterial Blood Pressure 67/67 - Exam No acute distress S1-S2 heard Decreased lungs sounds Edema - Labs CBC & Chem 7: 04/24/23 05:51 04/24/23 05:51 Labs: Abnormal Lab Results - Last 24 Hours (Table) 04/23/23 04/23/23 04/23/23 Range/Units 17:15 19:50 23:39 WBC (3.8-10.6) k/uL RBC (3.80-5.40) m/uL Hgb (11.4-16.0) gm/dL Hct (34.0-46.0) % MCHC (31.0-37.0) g/dL RDW (11.5-15.5) % Plt Count (150-450) k/uL Neutrophils # (1.3-7.7) k/uL Lymphocytes # (1.0-4.8) k/uL BUN (7-17) mg/dL Creatinine (0.52-1.04) mg/dL Glucose (74-99) mg/dL POC Glucose (mg/dL) 126 H 127 H 120 H (70-110) mg/dL Calcium (8.4-10.2) mg/dL 04/24/23 04/24/23 04/24/23 Range/Units 04:00 05:51 05:51 WBC 20.6 H (3.8-10.6) k/uL RBC 2.81 L (3.80-5.40) m/uL Hgb 8.1 L (11.4-16.0) gm/dL Hct 27.3 L (34.0-46.0) % MCHC 29.6 L (31.0-37.0) g/dL RDW 19.1 H (11.5-15.5) % Plt Count 94 L (150-450) k/uL Neutrophils # 19.3 H (1.3-7.7) k/uL Lymphocytes # 0.6 L (1.0-4.8) k/uL BUN 26 H (7-17) mg/dL Creatinine 1.42 H (0.52-1.04) mg/dL Glucose 132 H (74-99) mg/dL POC Glucose (mg/dL) 164 H (70-110) mg/dL Calcium 8.0 L (8.4-10.2) mg/dL 04/24/23 04/24/23 Range/Units 08:59 11:29 WBC (3.8-10.6) k/uL RBC (3.80-5.40) m/uL Hgb (11.4-16.0) gm/dL Hct (34.0-46.0) % MCHC (31.0-37.0) g/dL RDW (11.5-15.5) % Plt Count (150-450) k/uL Neutrophils # (1.3-7.7) k/uL Lymphocytes # (1.0-4.8) k/uL BUN (7-17) mg/dL Creatinine (0.52-1.04) mg/dL Glucose (74-99) mg/dL POC Glucose (mg/dL) 199 H 134 H (70-110) mg/dL Calcium (8.4-10.2) mg/dL Microbiology - Last 24 Hours (Table) 04/18/23 15:16 Blood Culture - Final Blood 04/18/23 11:00 Blood Culture - Final Blood Assessment and Plan Assessment: #1 ESRD on hemodialysis, TTS schedule. Femoral catheter placed 04/13/2023 #2 status post donor renal transplant in 2016. #3 CHF with systolic dysfunction EF of 40% #4 anemia with chronic kidney disease #5 septic shock suspected Klebsiella, better #6 hypotension better. Plan: #1 hemodialysis today as per outpatient schedule, no ultrafiltration was done yesterday. Next hemodialysis on Tuesday. #2 decreased carvedilol to 6.25 mg twice a day. #3 midodrine as needed for hemodynamic support #4 ICU care
[2023-04-24 16:07] LABS: Glucose,Whole Blood 119 mg/dL (70-110)
[2023-04-24] MEDS: ATORVASTATIN 10 MG TAB PO SCH (20:35)
[2023-04-24] MEDS: MEROPENEM 500 MG in SODIUM CHLORIDE 0.9% 100 ML IVPB SCH (20:40)
[2023-04-24 20:48] LABS: Glucose,Whole Blood 111 mg/dL (70-110)
[2023-04-24] MEDS ORDERED: MIRTAZAPINE 15 MG TAB PO SCH (21:00)
[2023-04-24] MEDS ORDERED: QUEtiapine 25 MG TAB PO SCH (21:00)
[2023-04-24 23:42] LABS: Glucose,Whole Blood 108 mg/dL (70-110)
[2023-04-25] MEDS: INSULIN ASPART (NovoLOG) 100 UNIT/ML VIAL SQ SCH ×4 (00:21→12:00)
[2023-04-25 05:48] LABS: Glucose,Whole Blood 146 mg/dL (70-110)
[2023-04-25] MEDS: carvediloL 6.25 MG TAB PO SCH (06:45)
[2023-04-25 07:10] LABS: Anisocytosis Slight; HCT 23.8 % (34.0-46.0); Hypochromasia Marked; MCH 28.9 pg (25.0-35.0); MCHC 29.3 g/dL (31.0-37.0); MCV 98.8 fL (80.0-100.0); Macrocytosis Slight; Mean Platelet Volume 9.8; Platelet Count 102 k/uL (150-450); Poikilocytosis Slight; RBC 2.41 m/uL (3.80-5.40); RDW 19.2 % (11.5-15.5); WBC 18.9 k/uL (3.8-10.6)
[2023-04-25 07:24] LABS: African American GFR (CKD) 34 (>60 ml/min/1.73 sqM); Anion Gap 11 mmol/L; Blood Urea Nitrogen 30 mg/dL (7-17); Calcium 8.2 mg/dL (8.4-10.2); Carbon Dioxide 21 mmol/L (22-30); Chloride 106 mmol/L (98-107); Glucose 144 mg/dL (74-99); Non-African American GFR(CKD) 29 (>60 ml/min/1.73 sqM); Potassium 4.3 mmol/L (3.5-5.1); Sodium 138 mmol/L (137-145)
[2023-04-25] MEDS: ASPIRIN 81 MG PO SCH (08:45)
[2023-04-25] MEDS: FOLIC ACID 1 MG TAB PO SCH (08:46)
[2023-04-25] MEDS: predniSONE 10 MG TAB PO SCH (08:46)
[2023-04-25] MEDS: THIAMINE 100 MG TAB PO SCH (08:46)
[2023-04-25] MEDS: NYSTATIN 100,000 UNIT/ML SUSP 500,000 UNIT/5 ML CUP PO SCH ×2 (08:46→16:03)
[2023-04-25] MEDS: ANIDULAFUNGIN 100 MG in SODIUM CHLORIDE 0.9% 100 ML IVPB SCH (08:47)
[2023-04-25] MEDS: PANTOPRAZOLE 40 MG/10 ML VIAL IVP SCH (08:48)
[2023-04-25 08:57] LABS: Glucose,Whole Blood 156 mg/dL (70-110)
[2023-04-25 08:58] VITALS: TEMP 98.8
[2023-04-25] MEDS ORDERED: NOREPINEPHRINE 4 MG in SODIUM CHLORIDE 0.9% 250 ML IV SCH (09:30)
[2023-04-25 11:39] VITALS: BMI 34.0
--- NOTE | 2023-04-25 12:00 | P.PN ---
Subjective Progress Note Date: 04/25/23 Principal diagnosis: Bacteremia Patient is a 72-year-old -[place] female with a comorbidities including diabetes mellitus hypertension hyperlipidemia end-stage renal disease on hemodialysis Tuesday via permacath patient presenting to the hospital with concerns for unable to care of self at home, patient did have blood cultures came back positive with gram-negative bacilli concerning for possible dialysis catheter infection. Dialysis catheter was removed 04/10/2023, the patient did have a new dialysis catheter placement on 04/13/2023, patient did have an episode of respiratory arrest night of 04/17/2023 requiring transfer to the ICU and intubation On today's evaluation that is 04/25/2023, the patient remains to be afebrile, the patient is breathing comfortably on 2 L nasal cannula oxygen, the patient is awake but did not answer any question and vomiting diarrhea or any other question reported White count is down to 18.9, creatinine is 1.73, blood and sputum cultures Jeanie , blood culture has been negative Objective - Vital Signs Vital signs: Vital Signs Temp 98.8 F 04/25/23 08:00 Pulse 101 H 04/25/23 11:00 Resp 20 04/25/23 11:00 BP 112/53 04/25/23 11:00 Pulse Ox 99 04/25/23 11:00 FiO2 40 04/21/23 13:49 Intake & Output 04/24/23 04/25/23 04/25/23 18:59 06:59 18:59 Intake Total 260 220 140 Output Total 0 0 0 Balance 260 220 140 Weight 87.3 kg Intake: IV 260 220 40 Anidulafungin 100 mg In 100 Sodium Chloride 0.9% 100 ml @ 84 mls/hr IVPB DAILY [facility] Rx#:[id number] Invasive Line 1 40 30 10 Invasive Line 6 120 90 30 Meropenem 500 mg In 100 Sodium Chloride 0.9% 100 ml @ 33.3 mls/hr IVPB Q24H [facility] Rx#:[id number] Intake, IV Titration 100 Amount Anidulafungin 100 mg In 100 Sodium Chloride 0.9% 100 ml @ 84 mls/hr IVPB DAILY [facility] Rx#:[id number] Oral 0 0 0 Output: Urine 0 0 0 Other: # Bowel Movements 0 0 ABP, PAP, CO, CI - Last Documented Arterial Blood Pressure 67/67 - Exam GENERAL DESCRIPTION: Elderly female lying in bed in no distress RESPIRATORY SYSTEM: Unlabored breathing , decreased breath sounds at bases HEART: S1 S2 regular rate and rhythm ABDOMEN: Soft , no tenderness EXTREMITIES: Heel pressure ulcer currently dressed - Labs CBC & Chem 7: 04/25/23 06:31 04/25/23 06:31 Labs: Abnormal Lab Results - Last 24 Hours (Table) 04/24/23 04/24/23 04/25/23 Range/Units 16:06 20:47 05:46 WBC (3.8-10.6) k/uL RBC (3.80-5.40) m/uL Hgb (11.4-16.0) gm/dL Hct (34.0-46.0) % MCHC (31.0-37.0) g/dL RDW (11.5-15.5) % Plt Count (150-450) k/uL Carbon Dioxide (22-30) mmol/L BUN (7-17) mg/dL Creatinine (0.52-1.04) mg/dL Glucose (74-99) mg/dL POC Glucose (mg/dL) 119 H 111 H 146 H (70-110) mg/dL Calcium (8.4-10.2) mg/dL 04/25/23 04/25/23 04/25/23 Range/Units 06:31 06:31 08:55 WBC 18.9 H (3.8-10.6) k/uL RBC 2.41 L (3.80-5.40) m/uL Hgb 7.0 L (11.4-16.0) gm/dL Hct 23.8 L (34.0-46.0) % MCHC 29.3 L (31.0-37.0) g/dL RDW 19.2 H (11.5-15.5) % Plt Count 102 L (150-450) k/uL Carbon Dioxide 21 L (22-30) mmol/L BUN 30 H (7-17) mg/dL Creatinine 1.73 H (0.52-1.04) mg/dL Glucose 144 H (74-99) mg/dL POC Glucose (mg/dL) 156 H (70-110) mg/dL Calcium 8.2 L (8.4-10.2) mg/dL Assessment and Plan (1) Bacteremia Current Visit: Yes Status: Acute Code(s): R78.81 - BACTEREMIA SNOMED Code(s): 8162651 (2) Unstageable pressure ulcer of left heel Current Visit: Yes Status: Acute Code(s): L89.620 - PRESSURE ULCER OF LEFT HEEL, UNSTAGEABLE SNOMED Code(s): 60254961643262734 Plan: 1-Patient with Klebsiella bacteremia concern for for possible permacatheter infection, patient did have removal of the catheter and subsequently placement of permacatheter in the groin after her culture were negative, patient underly ing bacteremia and has been adequately treated 2- leukocytosis likely steroid related and no evidence of any worsening clinical condition , white count is trending down and is down to 18.6 3-patient with an episode of respiratory distress concern for possible aspiration pneumonitis sputum has been Jeanie patient is covered with meropenem and Eraxis, transitioned to oral antibiotics on discharge Dictation was produced using [employer] dictation software. please excuse any grammatical, word or spelling errors. Time with Patient: Less than 30
--- NOTE | 2023-04-25 12:03 | P.PN ---
Subjective Patient is seen for follow-up for end-stage renal disease. Family meeting among family members today to decide CODE STATUS. Status post hemodialysis on 04/23/2023. Patient is confused. She does not communicate much. Poor oral intake. Started low-dose levo fed today. Objective - Vital Signs Vital signs: Vital Signs Temp 98.8 F 04/25/23 08:00 Pulse 101 H 04/25/23 11:00 Resp 20 04/25/23 11:00 BP 112/53 04/25/23 11:00 Pulse Ox 99 04/25/23 11:00 FiO2 40 04/21/23 13:49 Intake & Output 04/24/23 04/25/23 04/25/23 18:59 06:59 18:59 Intake Total 260 220 140 Output Total 0 0 0 Balance 260 220 140 Weight 87.3 kg Intake: IV 260 220 40 Anidulafungin 100 mg In 100 Sodium Chloride 0.9% 100 ml @ 84 mls/hr IVPB DAILY [facility] Rx#:[id number] Invasive Line 1 40 30 10 Invasive Line 6 120 90 30 Meropenem 500 mg In 100 Sodium Chloride 0.9% 100 ml @ 33.3 mls/hr IVPB Q24H [facility] Rx#:[id number] Intake, IV Titration 100 Amount Anidulafungin 100 mg In 100 Sodium Chloride 0.9% 100 ml @ 84 mls/hr IVPB DAILY [facility] Rx#:[id number] Oral 0 0 0 Output: Urine 0 0 0 Other: # Bowel Movements 0 0 ABP, PAP, CO, CI - Last Documented Arterial Blood Pressure 67/67 - Exam Patient is awake, comfortable, in no acute distress Confused on does not communicate much Examination of the heart S1 and S2 Examination of the lungs bilateral breath sounds are heard Abdomen is soft nontender Examination of lower extremity shows 1+ edema bilaterally - Labs CBC & Chem 7: 04/25/23 06:31 04/25/23 06:31 Labs: Abnormal Lab Results - Last 24 Hours (Table) 04/24/23 04/24/23 04/25/23 Range/Units 16:06 20:47 05:46 WBC (3.8-10.6) k/uL RBC (3.80-5.40) m/uL Hgb (11.4-16.0) gm/dL Hct (34.0-46.0) % MCHC (31.0-37.0) g/dL RDW (11.5-15.5) % Plt Count (150-450) k/uL Carbon Dioxide (22-30) mmol/L BUN (7-17) mg/dL Creatinine (0.52-1.04) mg/dL Glucose (74-99) mg/dL POC Glucose (mg/dL) 119 H 111 H 146 H (70-110) mg/dL Calcium (8.4-10.2) mg/dL 04/25/23 04/25/23 04/25/23 Range/Units 06:31 06:31 08:55 WBC 18.9 H (3.8-10.6) k/uL RBC 2.41 L (3.80-5.40) m/uL Hgb 7.0 L (11.4-16.0) gm/dL Hct 23.8 L (34.0-46.0) % MCHC 29.3 L (31.0-37.0) g/dL RDW 19.2 H (11.5-15.5) % Plt Count 102 L (150-450) k/uL Carbon Dioxide 21 L (22-30) mmol/L BUN 30 H (7-17) mg/dL Creatinine 1.73 H (0.52-1.04) mg/dL Glucose 144 H (74-99) mg/dL POC Glucose (mg/dL) 156 H (70-110) mg/dL Calcium 8.2 L (8.4-10.2) mg/dL Assessment and Plan Assessment: 1. End-stage renal disease maintained on hemodialysis Tuesday schedule via permacath. Started HD in March 2023 2. Status post donor renal transplant in 2015. 3. Chronic systolic CHF ejection fraction of 40% with mild to moderate mitral regurgitation and moderate tricuspid regurgitation. 4. Volume overload. 5. Anemia of chronic kidney disease. Iron replete. On . 6. Klebsiella bacteremia status post removal of IJ permacath and placement of new catheter with repeat blood cultures negative. Plan: Hemodialysis in a.m. if family decides to continue with aggressive care. Overall prognosis is guarded with poor quality of life.
[2023-04-25 12:16] LABS: Glucose,Whole Blood 121 mg/dL (70-110)
[2023-04-25 12:35] VITALS: BP 110/55
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
[2023-04-25] MEDS ORDERED: MORPHINE SULFATE 2 MG/ML SYRINGE IV PRN (13:02)
[2023-04-25] MEDS: MORPHINE SULFATE 4 MG/ML SYRINGE IV PRN ×2 (14:12→15:34)
--- NOTE | 2023-04-25 14:35 | P.PN ---
Subjective Progress Note Date: 04/25/23 Principal diagnosis: Acute hypoxic respiratory failure, sepsis, septic shock, and Klebsiella pneumonia bacteremia On today's evaluation of 04/19/2023, the patient is being seen for a follow-up. The patient remains intubated on a mechanical ventilator. She was hemodynamically unstable in septic shock and based on that, the patient was intubated and placed on a mechanical ventilator and she was started on fluids and pressors and aggressive resuscitation. She was brought into the intensive care unit yesterday. The patient is currently sedated on propofol which is running at 10 mcg/kg/m. She is sent has a mechanical ventilator. She is on assist-control mode at the rate of 14, tidal volume of 350, FiO2 of 60% with a PEEP of 10. The blood gas from today shows a pH of 7.44 episodes of 35 and pO2 of 146. The chest x-ray from today shows adequate positioning of the o rotracheal tube. The patient has limited bibasilar pulmonary infiltrates and possibly some small pleural effusions. The patient also has a right subclavian triple-lumen catheter in place. Sputum samples were sent and there is also still pending for now. Blood cultures still pending for now. The patient is on broad-spectrum antibiotics and I started on a combination of meropenem, Eraxis and vancomycin yesterday pending further cultures. White cell count today's of 22.3. She is afebrile. Pressors have been weaned off. Norepinephrine is running at 0.04 mcg/kg/m and the patient is also on physiologic dose of vasopressin. The patient was also given stress dose hydrocortisone yesterday. Immunosuppression medications were discontinued. There is a drop in hemoglobin down to 6.9 without evidence of any GI bleed. The patient will be receiving a unit of packed RBC. On a separate note, the patient is undergoing hemodialysis today. The ends of 20 with a creatinine of 1.6. Potassium levels at 3.5. Sodium level is at 138. Echocardiogram was done and completed yesterday and the patient has a normal LV function. There is moderate LVH, LV cavity is small. There is moderate to severe mitral annular calcification and thickening. No evidence of any pericardial effusion. The patient was also started on enteral feeding for nutritional support. She is currently on vital high-protein at the rate of 37 mL an hour. In terms of her blood sugar control, she is on insulin drip running at 2.25 units an hour. on today's evaluation of 04/20/2023, I'm seeing the patient for a follow-up. This morning, the patient is sedated and she is on propofol running at 10 mcg/kg/m. She is quite comfortable. She is synchronous a mechanical ventilator. She remains on assist-control mode of mechanical ventilation she is currently at the rate of 14 with a tidal volume of 350 and PEEP of 10 with an FiO2 of 60%. I reviewed the patient's blood gas from today and that is improvement in oxygenation. The pH is at 7.5 with a pCO2 of 33 and pO2 of 169. The chest x-ray showing limited infiltrationThe lung bases bilaterally. Oral chicken tube is in a good location. The patient has no significant orotracheal secretions at this point in time. In terms of her sepsis, the patient is still on broad-spectrum antibiotics in the echoes down to 27. The blood culture has been negative. The patient is afebrile. Her pressor requirements have dropped significantly and the patient is currently off vasopressin and she is only on norepinephrine at 0.01 mcg/kg/m. She underwent hemodialysis yesterday. Albumin is low and nephrology opted to give the patient IV albumin. This is essentially to support the blood pressure and get off the pressors. She is currently on enteral feeding for nutritional support and she is receiving vital high-protein at the rate of 44 mL an hour. An echo cardiograph showed a preserved LV function. In terms of her blood sugar control, she is on Levemir insulin at a dose of 15 units and a sliding scale coverage with NovoLog where she is receiving a protocol +2 units scheduled. Her hemoglobin is stable. During the course of her hospitalization, she recently units of packed RBC for a hemoglobin of 6.9 and hemoglobin is currently up to 8.8. On 04/21/2023, I'm seeing the patient for a follow-up. This morning, the patient is on propofol running at 10 mcg/kg/m which is giving low level of sedation. The patient was opening eyes spontaneously. She is following simple commands. She is profoundly weak and lethargic still. She is a process of u ndergoing hemodialysis. The goal of ultrafiltration is 1 L. The patient is on assist-control mode of mechanical ventilation at the rate of 14, tidal volume of 350, FiO2 of 40% with a PEEP of 5. The morning blood gases from today showed a pH of 7.51 with a pCO2 of 33 and pO2 of 143. Chest x-ray shows some atelectatic changes in the lung bases bilaterally. Orotracheal tube is in a good location. As far as her sepsis, the patient's echoes at elevated at 26. The patient remains on stress dose hydrocortisone. The patient is on broad-spectrum antibiotics including a combination of vancomycin, meropenem and Eraxis. The patient had Jeanie or sputum. Most likely colonization. Blood culture has been negative. The patient has a vancomycin trough level of 13.5. The patient is currently off pressors. She is receiving enteral feeding for nutritional support. She is currently on vital high-protein at the rate of 40 mL an hour. The rest of the blood work was noted. The hemoglobin is at 7.8. Urine is a 28 with a creatinine of 1.6 and a sodium level is at 139. The plan is to complete hemodialysis and assess the patient's ability to wean by checking weaning parameters and possibly given given a spontaneous breathing trial and if she ends up having adequate mentation and adequate weaning parameters. On 04/22/2023, the patient is extubated the patient is currently on room air oxygen pH is awake and alert and she is communicating. No signs of any respiratory distress and the breathing is nonlabored. The chest x-ray shows cardiomegaly and some atelectatic changes and small lung base bilaterally. The patient underwent hemodialysis yesterday with ultrafiltration of 1 L. She is calm and comfortable at this point in the breathing is nonlabored. At the same time, the patient is hemodynamically stable. She is currently off pressors. Her blood pressures improved significantly. No clear source of infection although the patient's white cell count continues to be elevated at 32.9. She is still covered with broad-spectrum antibiotics and she is currently on a com bination of Eraxis, vancomycin and meropenem. Infectious diseases on the case. The sputum culture came back for possible Jeanie albicans. Blood cultures been negative for the time being and the patient is currently off pressors. IV fluids are currently of KVO. She has chronic heel ulcers, that are nondraining. She also has a dialysis cath in her right femoral vein. Her previous episodes of sepsis was related to Klebsiella pneumoniae and that was treated. On 04/24/2023, the patient is being seen for a follow-up. She is on room air oxygen. She is currently comfortable. He is undergoing hemodialysis. No significant ultrafiltration to be done today as the patient became hypotensive. She is tolerating hemodialysis of this point in time. She has profound motor weakness in all 4 extremities. No focal neurological deficits. No fever. No pressors. The echoes down to 23. Hemoglobin stable at 9.0. Sodium levels of 136, BUN is at 32 with a creatinine of 1.67. Chest x-ray from today shows cardiomegaly, mild pulmonary vascular congestion, atelectatic change in lung bases bilaterally. IV fluids are currently at KVO. On 04/24/2023, seeing the patient for a follow-up. The patient remains on room air oxygen. Hemodynamically stable. echoes improved and the patient remains on a combination of meropenem vancomycin and Eraxis. She is having episodes of confusion. No agitation. The patient is morbidly 4 extremities without any limitation. The patient had no possible cultures. Her last session of hemodialysis was yesterday and unable to do significant ultrafiltration because of hypotension. As such, the patient continues to have significant amount of third spacing in upper and lower extremities. The vesicles at 20.6 with a hemoglobin of 8.1 and a platelet count of 94. BUN is 26 with a creatinine of 1.42 and a sodium level is at 138. Patient was reevaluated today on 04/25/2023, patient remains in the ICU, she was on mechanical ventilation on 04/07 until 04/21, and her condition right now seems to be getting worse again. Patient in few weeks, does not seem to be comprehending what is going on around her. She is hypotensive were and I am rec ommending starting the patient on norepinephrine again. Continues to have leukocytosis, hemoglobin is 7 today, it was 8.1 yesterday and 9.0 the day before. Renal functioning is steadily worsening. Her last hemodialysis was 04/23 patient is extremely confused, she is unable to communicate, and she has a very poor oral intake. Patient had a previous donor renal transplant in 2016, and she has chronic low ejection fraction of 40% with moderate mitral regurgitation and she has chronic anemia as well as on this admission she had Klebsiella bacteremia. At any rate after evaluating the patient, I called her daughter Gabrielle in [place] and explained to the daughter her overall conditi on. She promised to discuss this with her other family members, and she is definitely inclined to go DO NOT RESUSCITATE CODE STATUS and possibly hospice. Later on apparently the family discussed this, and the patient was made comfort care measures only. Objective - Vital Signs Vital signs: Vital Signs Temp 98.8 F 04/25/23 08:00 Pulse 100 04/25/23 12:25 Resp 29 H 04/25/23 12:25 BP 110/55 04/25/23 12:25 Pulse Ox 100 04/25/23 11:45 FiO2 40 04/21/23 13:49 Intake & Output 04/24/23 04/25/23 04/25/23 18:59 06:59 18:59 Intake Total 260 220 140 Output Total 0 0 0 Balance 260 220 140 Weight 87.3 kg Intake: IV 260 220 40 Anidulafungin 100 mg In 100 Sodium Chloride 0.9% 100 ml @ 84 mls/hr IVPB DAILY [facility] Rx#:[id number] Invasive Line 1 40 30 10 Invasive Line 6 120 90 30 Meropenem 500 mg In 100 Sodium Chloride 0.9% 100 ml @ 33.3 mls/hr IVPB Q24H [facility] Rx#:[id number] Intake, IV Titration 100 Amount Anidulafungin 100 mg In 100 Sodium Chloride 0.9% 100 ml @ 84 mls/hr IVPB DAILY [facility] Rx#:[id number] Oral 0 0 0 Output: Urine 0 0 0 Other: # Bowel Movements 0 0 ABP, PAP, CO, CI - Last Documented Arterial Blood Pressure 67/67 - Exam GENERAL EXAM: 72-year-old female, looks frail, chronically ill, confused, on 2 L nasal cannula. HEAD: Normocephalic and atraumatic patient seems to have a facial asymmetry, with right facial drooping EENT: PERRLA, EOMI, anicteric, normal masses, no JVD CHEST: No chest wall deformity. LUNGS: Diminished breath sound bilaterally with crackles, no rhonchi and no wheezes CVS: S1 and S2 normal with 2/6 systolic murmur, throughout the precordium. ABDOMEN: No hepatosplenomegaly, active bowel sounds, no guarding or rigidity. SKIN: There is a decubitus pressure ulcer, along with bilateral heel ulcerations. Eschar noted on the heels bilaterally and the patient has the appropriate dressing and the boots CENTRAL NERVOUS SYSTEM: Confused, nonverbal, EXTREMITIES: There is no peripheral edema, clubbing, or cyanosis. Peripheral pulses are diminished bilaterally Skin: No rashes - Labs CBC & Chem 7: 04/25/23 06:31 04/25/23 06:31 Labs: Abnormal Lab Results - Last 24 Hours (Table) 04/24/23 04/24/23 04/25/23 Range/Units 16:06 20:47 05:46 WBC (3.8-10.6) k/uL RBC (3.80-5.40) m/uL Hgb (11.4-16.0) gm/dL Hct (34.0-46.0) % MCHC (31.0-37.0) g/dL RDW (11.5-15.5) % Plt Count (150-450) k/uL Carbon Dioxide (22-30) mmol/L BUN (7-17) mg/dL Creatinine (0.52-1.04) mg/dL Glucose (74-99) mg/dL POC Glucose (mg/dL) 119 H 111 H 146 H (70-110) mg/dL Calcium (8.4-10.2) mg/dL 04/25/23 04/25/23 04/25/23 Range/Units 06:31 06:31 08:55 WBC 18.9 H (3.8-10.6) k/uL RBC 2.41 L (3.80-5.40) m/uL Hgb 7.0 L (11.4-16.0) gm/dL Hct 23.8 L (34.0-46.0) % MCHC 29.3 L (31.0-37.0) g/dL RDW 19.2 H (11.5-15.5) % Plt Count 102 L (150-450) k/uL Carbon Dioxide 21 L (22-30) mmol/L BUN 30 H (7-17) mg/dL Creatinine 1.73 H (0.52-1.04) mg/dL Glucose 144 H (74-99) mg/dL POC Glucose (mg/dL) 156 H (70-110) mg/dL Calcium 8.2 L (8.4-10.2) mg/dL 04/25/23 Range/Units 12:15 WBC (3.8-10.6) k/uL RBC (3.80-5.40) m/uL Hgb (11.4-16.0) gm/dL Hct (34.0-46.0) % MCHC (31.0-37.0) g/dL RDW (11.5-15.5) % Plt Count (150-450) k/uL Carbon Dioxide (22-30) mmol/L BUN (7-17) mg/dL Creatinine (0.52-1.04) mg/dL Glucose (74-99) mg/dL POC Glucose (mg/dL) 121 H (70-110) mg/dL Calcium (8.4-10.2) mg/dL Assessment and Plan Assessment: Acute hypoxic respiratory failure Septic shock secondary to acute Klebsiella bacteremia Acute metabolic encephalopathy History of Renal transplant in 2016. chronic anemia Anemia of chronic disease Wounds to bilateral lower feet Insulin-dependent Diabetes mellitus type 2 with hyperglycemia Folate deficiency Hypertension Dyslipidemia History of bronchial asthma History of systolic congestive heart failure with moderately reduced LV function End-stage renal disease Recommendation: continue present supportive care measures discussed her condition and status with daughter over the phone, family apparently discussed her condition and agreed to proceed with comfort care measures. I believe this is the most appropriate approach for this patient at this point. Overall prognosis and overall clinical picture looks extremely poor We will proceed with comfort care measures Time with Patient: Less than 30
[2023-04-25] MEDS ORDERED: ATROPINE OPHTH SOLN 1% 5ML BTL SUBLINGUAL PRN (15:41)
[2023-04-25] MEDS ORDERED: GLYCOPYRROLATE 0.2 MG/ML 2 ML VIAL IVP PRN (15:41)
[2023-04-25] MEDS: SODIUM CHLORIDE 0.9% 1,000 ML IV SCH (16:02)
[2023-04-25] MEDS ORDERED: MORPHINE SULFATE (100 MG/2 ML) 100 MG in SODIUM CHLORIDE 0.9% 100 ML IV SCH (16:15)
[2023-04-25] MEDS ORDERED: SCOPOLAMINE 1 MG/72 HR PATCH TRANSDERM SCH (16:15)
[2023-04-25 20:02] VITALS: PULSE 0; RESP 0
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
== END 2023-04-25 20:21 | disposition expired | DRG 871 ==
LOC: EC 22:19 → OBSVTOIN 23:10 → 6NMEDSUR 23:10 → 4SSUR 04-04 16:11 → 2SICU 04-17 20:58
PROVIDERS: ADMIT Student in an Organized Health Care Education/Training Program; ATTEND Student in an Organized Health Care Education/Training Program
PROC: 02PYX3Z Removal of Infusion Device from Great Vessel, External Approach (ICD-10-PCS; 2023-04-11 10:30)
PROC: 0JH63XZ Insertion of Tunneled Vascular Access Device into Chest Subcutaneous Tissue and Fascia, Percutaneous Approach (ICD-10-PCS; 2023-04-13)
PROC: 02HV33Z Insertion of Infusion Device into Superior Vena Cava, Percutaneous Approach (ICD-10-PCS; 2023-04-13)
PROC: 5A1D70Z Performance of Urinary Filtration, Intermittent, Less than 6 Hours Per Day (ICD-10-PCS; principal; 2023-04-13 16:00)
PROC: 0BH18EZ Insertion of Endotracheal Airway into Trachea, Via Natural or Artificial Opening Endoscopic (ICD-10-PCS; 2023-04-18)
PROC: 5A1945Z Respiratory Ventilation, 24-96 Consecutive Hours (ICD-10-PCS; 2023-04-18)
PROC: 03HY32Z Insertion of Monitoring Device into Upper Artery, Percutaneous Approach (ICD-10-PCS; 2023-04-18)
PROC: 4A133B1 Monitoring of Arterial Pressure, Peripheral, Percutaneous Approach (ICD-10-PCS; 2023-04-18)
PROC: 4A133J1 Monitoring of Arterial Pulse, Peripheral, Percutaneous Approach (ICD-10-PCS; 2023-04-18)
PROC: 02HV33Z Insertion of Infusion Device into Superior Vena Cava, Percutaneous Approach (ICD-10-PCS; 2023-04-18)
PROC: 3E043XZ Introduction of Vasopressor into Central Vein, Percutaneous Approach (ICD-10-PCS; 2023-04-18)
DX: A41.59 Other Gram-negative sepsis (principal); G92.8 Other toxic encephalopathy; I50.23 Acute on chronic systolic (congestive) heart failure; N18.6 End stage renal disease; R65.21 Severe sepsis with septic shock; J96.01 Acute respiratory failure with hypoxia; J69.0 Pneumonitis due to inhalation of food and vomit; I13.2 Hypertensive heart and chronic kidney disease with heart failure and with stage 5 chronic kidney disease, or end stage renal disease; N17.9 Acute kidney failure, unspecified; L97.822 Non-pressure chronic ulcer of other part of left lower leg with fat layer exposed; T86.19 Other complication of kidney transplant; E87.20 Acidosis, unspecified; B37.0 Candidal stomatitis; E11.22 Type 2 diabetes mellitus with diabetic chronic kidney disease; E11.42 Type 2 diabetes mellitus with diabetic polyneuropathy; Z99.2 Dependence on renal dialysis; Z79.4 Long term (current) use of insulin; L89.620 Pressure ulcer of left heel, unstageable; L89.610 Pressure ulcer of right heel, unstageable; E11.65 Type 2 diabetes mellitus with hyperglycemia; Z51.5 Encounter for palliative care; Z66 Do not resuscitate; D63.1 Anemia in chronic kidney disease; J45.909 Unspecified asthma, uncomplicated; I08.1 Rheumatic disorders of both mitral and tricuspid valves; Z68.34 Body mass index [BMI] 34.0-34.9, adult; R62.7 Adult failure to thrive; I95.2 Hypotension due to drugs; Z91.148 Patient's other noncompliance with medication regimen for other reason; D69.59 Other secondary thrombocytopenia; R54 Age-related physical debility; T44.7X5A Adverse effect of beta-adrenoreceptor antagonists, initial encounter; E83.42 Hypomagnesemia; E87.6 Hypokalemia; G47.00 Insomnia, unspecified; G89.29 Other chronic pain; M54.50 Low back pain, unspecified; E78.5 Hyperlipidemia, unspecified; B96.1 Klebsiella pneumoniae [K. pneumoniae] as the cause of diseases classified elsewhere; Y83.0 Surgical operation with transplant of whole organ as the cause of abnormal reaction of the patient, or of later complication, without mention of misadventure at the time of the procedure; E53.8 Deficiency of other specified B group vitamins; R30.0 Dysuria; Y71.1 Therapeutic (nonsurgical) and rehabilitative cardiovascular devices associated with adverse incidents; Z74.2 Need for assistance at home and no other household member able to render care; Z79.69 Long term (current) use of other immunomodulators and immunosuppressants; Z87.891 Personal history of nicotine dependence; Z79.899 Other long term (current) drug therapy; Z79.52 Long term (current) use of systemic steroids; Z79.82 Long term (current) use of aspirin; Z88.0 Allergy status to penicillin; Z91.041 Radiographic dye allergy status; Z88.8 Allergy status to other drugs, medicaments and biological substances; Z88.5 Allergy status to narcotic agent; Z86.16 Personal history of COVID-19; Z86.14 Personal history of Methicillin resistant Staphylococcus aureus infection; Z87.440 Personal history of urinary (tract) infections; Z87.19 Personal history of other diseases of the digestive system; Z86.73 Personal history of transient ischemic attack (TIA), and cerebral infarction without residual deficits; Z63.6 Dependent relative needing care at home
CPT/HCPCS: 36410; 36558; 70450; 71045; 76937; 77001; 80048; 80053; 80197; 80202; 81001; 82533; 82728; 82805; 83036; 83540; 83550; 83605; 83735; 84100; 84132; 84145; 84443; 84484; 85025; 85027; 85610; 85652; 85730; 86022; 86140; 86706; 86850; 86900; 86901; 86920; 87040; 87070; 87077; 87086; 87186; 87205; 87340; 90935; 93005; 93306; 94002; 94003; 94760; 96361; 96374; 96376; 99285